=== PATIENT | male | born 1935 | race Caucasian/White ===

== ENCOUNTER 2022-12-28 04:58 | Outpatient (RCR) | payer MEDICARE, SELFPAY | END 2023-01-25 23:59 | disposition home or self-care (01) | LOC: MM 04:58 | PROVIDERS: Visit Provider Internal Medicine | DX: Z51.81 Encounter for therapeutic drug level monitoring (principal); Z79.01 Long term (current) use of anticoagulants; I48.91 Unspecified atrial fibrillation ==

== ENCOUNTER 2023-01-31 09:05 | Outpatient (RCR) | payer MEDICARE, SELFPAY | END 2023-02-25 16:59 | disposition home or self-care (01) | LOC: MM 09:05 | PROVIDERS: PCP Internal Medicine; Visit Provider Internal Medicine | DX: Z51.81 Encounter for therapeutic drug level monitoring (principal); Z79.01 Long term (current) use of anticoagulants; I48.91 Unspecified atrial fibrillation | CPT/HCPCS: 85610; G0463 ==

== ENCOUNTER 2023-02-19 10:11 | Outpatient (OUT) | payer MEDICARE, SELFPAY ==
--- NOTE | 2023-02-19 11:25 | CA_ITS ---
Patient: THIERRY LERNER Exam Date: 02/19/2023 : 1935 Gender:M Ordering : CHARISSE GAY Admission #: [id number] Family : Order #: [id number] CLICK HERE TO VIEW EXAM ECHOCARDIOGRAM REPORT PROCEDURE: CA ECHO DOPPLER COMPLETE INDICATIONS: Atrial fibrillation, hypertension, pacemaker COMPARISON: None. DESCRIPTION: COMPLETE ECHOCARDIOGRAM Real-time transthoracic echocardiography with 2D, M-mode, spectral and color flow Doppler performed. QUALITY: Technical quality was good. LEFT VENTRICLE: Normal chamber size. Thickened septal wall. The septum is abnormal in motion likely due to pacing. Global systolic function is normal. LV EF: Normal left ventricular ejection fraction, (55%). DIASTOLIC: Unable to assess due to rhythm. ATRIAL SEPTUM: LEFT ATRIUM: Severe dilatation. RIGHT ATRIUM: Severe dilatation. RIGHT VENTRICLE: Moderate dilatation. Mildly reduced systolic function. Pacer wire present. TRICUSPID VALVE: Normal mobility and thickness. No stenosis with mild to moderate regurgitation. Doppler studies reveal moderately (45-60) elevated right sided pressures. RVSP 56 mmHg MITRAL VALVE: Normal mobility and thickness. No evidence of mitral valve stenosis. There is no mitral annular calcification. Mild to moderate mitral regurgitation. AORTIC VALVE: Normal trileaflet appearance. Thickened aortic valve. Normal leaflet mobility. No evidence of aortic valve stenosis. Mild aortic regurgitation. AORTIC ROOT: Normal diameter and appearance. PULMONIC VALVE: Normal thickness and mobility. No stenosis. Mild regurgitation. PERICARDIUM: No evidence of pericardial effusion. IVC: Collapses with inspirations. IVC is dilated (2.6 cm) PLEURA: CONCLUSION: 1. Normal left ventricular size and systolic function. LVEF is 55%. 2. Moderately dilated right ventricle with mildly reduced systolic function. 3. Severe biatrial dilatation. 4. Mild to moderate mitral and tricuspid regurgitation. 5. Mild aortic and pulmonic regurgitation. 6. Moderately elevated right-sided pressures. RVSP is 56 mmHg. Adult Echocardiography Procedure Report Left Ventricle LVEDD (3.7 - 5.6 cm): 5.52 cm LVESD (2.2 - 4.0 cm): 3.57 cm LVIVS thickness (0.6 - 1.2 cm): 1.43 cm LVPW thickness (0.5 - 1.0 cm): 1.14 cm e': 0.16 m/s E - e': 5.55 LVOT Max Gradient: 4.00 mm[Hg] LVOT Area (cm2): 1.00 m/s Peak Velocity (LVOT): 1.00 m/s Mean Velocity (LVOT): 0.69 m/s LVOT Diameter 2.62 cm Left Atrium LA Volume Index (2D A2C): 69.01 ml/m2 Left Atrium Systolic Dimension: 4.96 cm Mitral Valve MV E to A Ratio: 3.21 Mitral Valve A-Wave Peak Velocity: 0.28 m/s Mitral Valve E-Wave Peak Velocity: 0.90 m/s Right Ventricle Aorta AO Root Diam: 3.92 cm Ascending Ao Diam: 3.67 cm Aortic Valve AoV Area (Peak Rich): 3.87 cm2, 3.87 cm2 AoV Area (VTI): 4.01 cm2, 4.01 cm2 Peak Velocity(Antegrade Flow): 1.40 m/s Peak Gradient(Antegrade Flow): 7.81 mm[Hg] Mean Velocity(Antegrade Flow): 0.97 m/s Mean Gradient(Antegrade Flow): 4.35 mm[Hg] Velocity Time Integral: 31.69 cm Tricuspid Valve Peak Velocity (Regurgitant Flow): 3.48 m/s, 3.40 m/s, 3.27 m/s Pulmonic Valve Peak Velocity: 1.17 m/s Peak Gradient: 6.20 mm[Hg], 4.73 mm[Hg] Right Atrium Right Atrium Systolic Pressure: 77.86 ml, 77.86 ml Dictated by: Sam Morales M.D. on 02/20/2023 at 18:36 Approved by: Sam Morales M.D. on 02/20/2023 at 18:44
== END 2023-02-19 10:12 | disposition home or self-care (01) ==
PROVIDERS: PCP Internal Medicine; Visit Provider Nurse Practitioner
DX: I48.19 Other persistent atrial fibrillation (principal); I08.3 Combined rheumatic disorders of mitral, aortic and tricuspid valves; I37.1 Nonrheumatic pulmonary valve insufficiency
CPT/HCPCS: 93306

== ENCOUNTER 2023-02-26 09:24 | Outpatient (RCR) | payer MEDICARE, SELFPAY | END 2023-03-28 17:35 | disposition home or self-care (01) | LOC: MM 09:24 | PROVIDERS: Visit Provider Internal Medicine | DX: Z51.81 Encounter for therapeutic drug level monitoring (principal); Z79.01 Long term (current) use of anticoagulants; I48.91 Unspecified atrial fibrillation | CPT/HCPCS: 85610; G0463 ==

== ENCOUNTER 2023-03-29 08:58 | Outpatient (RCR) | payer MEDICARE, SELFPAY | END 2023-04-26 16:53 | disposition home or self-care (01) | LOC: MM 08:58 | PROVIDERS: Visit Provider Internal Medicine | DX: Z51.81 Encounter for therapeutic drug level monitoring (principal); Z79.01 Long term (current) use of anticoagulants; I48.91 Unspecified atrial fibrillation ==

== ENCOUNTER 2023-04-29 01:54 | Outpatient (RCR) | payer MEDICARE, SELFPAY | END 2023-05-28 17:25 | disposition home or self-care (01) | LOC: MM 01:54 | PROVIDERS: Visit Provider Internal Medicine | DX: Z51.81 Encounter for therapeutic drug level monitoring (principal); Z79.01 Long term (current) use of anticoagulants; I48.91 Unspecified atrial fibrillation | CPT/HCPCS: 85610; G0463 ==

== ENCOUNTER 2023-05-22 08:25 | Outpatient (OUT) | payer MEDICARE, SELFPAY ==
[2023-05-22 09:04] LABS: Anion Gap 14.2; BUN Creatinine Ratio 20.6; Calcium 9.7 mg/dL (8.5-10.1); Carbon Dioxide 25.8 mmol/L (21.0-32.0); Chloride 107 mmol/L (98-107); Estimated GFR (African America 37 (>=60); Estimated GFR (Non-African Ame 30 (>=60); Glucose 90 mg/dL (74-106); Sodium 142 mmol/L (136-145)
== END 2023-05-22 08:26 | disposition home or self-care (01) ==
LOC: LAB 08:26
PROVIDERS: PCP Nurse Practitioner; Visit Provider Nurse Practitioner
DX: I50.32 Chronic diastolic (congestive) heart failure (principal)
CPT/HCPCS: 36415; 80048

== ENCOUNTER 2023-05-29 00:41 | Outpatient (RCR) | payer MEDICARE, SELFPAY | END 2023-06-27 16:40 | disposition home or self-care (01) | LOC: MM 00:41 | PROVIDERS: PCP Nurse Practitioner; Visit Provider Internal Medicine | DX: Z51.81 Encounter for therapeutic drug level monitoring (principal); Z79.01 Long term (current) use of anticoagulants; I48.91 Unspecified atrial fibrillation ==

== ENCOUNTER 2023-06-28 09:53 | Outpatient (RCR) | payer MEDICARE, SELFPAY | END 2023-07-26 15:39 | disposition home or self-care (01) | LOC: MM 09:53 | PROVIDERS: PCP Nurse Practitioner; Visit Provider Internal Medicine | DX: Z51.81 Encounter for therapeutic drug level monitoring (principal); Z79.01 Long term (current) use of anticoagulants; I48.91 Unspecified atrial fibrillation ==

== ENCOUNTER 2023-07-29 01:40 | Outpatient (RCR) | payer MEDICARE, SELFPAY | END 2023-08-28 17:10 | disposition home or self-care (01) | LOC: MM 01:40 | PROVIDERS: PCP Nurse Practitioner; Visit Provider Internal Medicine | DX: Z51.81 Encounter for therapeutic drug level monitoring (principal); Z79.01 Long term (current) use of anticoagulants; I48.91 Unspecified atrial fibrillation | CPT/HCPCS: 85610; G0463 ==

== ENCOUNTER 2023-08-28 12:24 | Outpatient (OUT) | payer MEDICARE, SELFPAY ==
--- OUTSIDE RECORDS SUMMARY | 2023-08-28 12:28 | XMS_ITS | CCD ---
Author Name Unknown Address [address] [place] [address] Organization [facility] Care Team Providers Care Fondant Puff Maker Name Role Phone UNKNOWN, PHYSICIAN Referring Unavailable SILVAJASON CRUZ Primary Care Unavailable HERCHER DEJON Attending Unavailable HERCHER DEJON Admitting Unavailable PROVIDER, UNKNOWN Attending Unavailable PROVIDER, UNKNOWN Admitting Unavailable PROVIDER, UNKNOWN Attending Unavailable PROVIDER, UNKNOWN Admitting Unavailable Sonja Aden Unavailable Leidy Rey Primary Care Physician Ward Martinez Admitting Unavail able Ward Martinez Attending Unavail able John Nieves Primary Care Unavailable Ward Martinez Attending Unavail able John Nieves Primary Care Unavailable Ward Martinez Admitting Unavail able SILVA ., DR JASON Devlin Consulting Unavailable SILVA ., DR JASON Devlin Attending Unavailable SILVA ., DR JASON Devlin Admitting Unavailable SILVA ., DR JASON Devlin Primary Care Unavailable SHAIKH Joe JUNIOR Attending Unavailable SILVA ., DR JASON Devlin Primary Care Unavailable SHAIKH Joe JUNIOR Admitting Unavailable SHAIKH Joe JUNIOR Admitting Unavailable SILVA ., DR JASON Devlin Primary Care Unavailable SANDI, H Attending Unavailable KELLY BONILLA Consulting Unavailable WILBERTUKAKELLY MONTILLA Attending Unavailable SILVA ., DR JASON Devlin Primary Care Unavailable KELLY BONILLA Admitting Unavailable SILVA ., DR JASON Devlin Primary Care Unavailable MISC, DR DEUTSCH Consulting Unavailable MISC, DR DEUTSCH Attending Unavailable MISC, DR DEUTSCH Admitting Unavailable SILVA ., DR JASON Devlin Primary Care Unavailable CHIKISERELaura, DR HARVEY Mcgrath Consulting Unavailable CHEPE, DR HARVEY Mcgrath Attending Unavailable CHEPE, DR HARVEY Mcgrath Admitting Unavailable TO, STEPHANIE Procedure Practitioner Unavailab le MARKER ., DR GODDARD Consulting Unavailable CHEPE, DR HARVEY Mcgrath Procedure Practitioner Unascott clark TO, STEPHANIE Consulting Unavailable KLIPPER, STEPHANIE Consulting Unavailable AQUINOMCKAYLA SERRA Consulting Unavailable DRA II, KITTY Consulting Unavailable TAMLYN ., SAEID Consulting Unavailable BRAEDEN MCNEILL Consulting Unavailable SILVA ., DR JASON Devlin Consulting Unavailable SILVA ., DR JASON Devlin Attending Unavailable SILVA ., DR JASON Devlin Admitting Unavailable SILVA ., DR JASON Devlin Primary Care Unavailable FAWWAD, HAYWARD H Admitting Unavailable FAWWAD, HAYWARD H Attending Unavailable SILVA ., DR JASON Devlin Primary Care Unavailable FAWWAD, HAYWARD H Admitting Unavailable SILVA ., DR JASON Devlin Primary Care Unavailable FAWWAD, HAYWARD H Attending Unavailable FAWWAD, HAYWARD H Admitting Unavailable SILVA ., DR JASON Devlin Primary Care Unavailable FAWWAD, HAYWARD H Attending Unavailable FAWWAD, HAYWARD H Admitting Unavailable SILVA ., DR JASON Devlin Primary Care Unavailable FAWWAD, HAYWARD H Attending Unavailable FAWWAD, HAYWARD H Admitting Unavailable SILVA ., DR JASON Devlin Primary Care Unavailable FAWWAD, HAYWARD H Attending Unavailable FAWWAD, HAYWARD H Admitting Unavailable SILVA ., DR JASON Devlin Primary Care Unavailable FAWWAD, HAYWARD H Attending Unavailable FAWWAD, HAYWARD H Admitting Unavailable SILVA ., DR JASON Devlin Primary Care Unavailable FAWWAD, HAYWARD H Attending Unavailable FAWWAD, HAYWARD H Attending Unavailable FAWWAD, HAYWARD H Admitting Unavailable SILVA ., DR JASON Devlin Primary Care Unavailable SILVA ., DR JASON Devlin Primary Care Unavailable MISC, DR DEUTSCH Consulting Unavailable MISC, DR DEUTSCH Attending Unavailable MISC, DR DEUTSCH Admitting Unavailable FAWWAD, HAYWARD H Admitting Unavailable SILVA ., DR JASON Devlin Primary Care Unavailable FAJenniferWAD, HAYWARD H Attending Unavailable ROYAL RIVERA Consulting Unavailable ROYAL RIVERA Attending Unavailable ROYAL RIVERA Admitting Unavailable SILVA ., DR JASON Devlin Primary Care Unavailable CHARISSE GAY Attending Unavailable CHARISSE GAY Attending Unavailable ROYAL RIVERA Referring Unavailable SOLIS VALLES Attending Unavailable ROYAL RIVERA Attending Unavailable ROYAL RIVERA Referring Unavailable Krissy, Leidy Calix Attending Unavailable Krissy, Leidy Calix Attending Unavailable Krissy, Leidy Calix Attending Unavailable Krissy, Leidy Calix Admitting Unavailable Krissy, Leidy Calix Attending Unavailable Krissy, Leidy Calix Admitting Unavailable Krissy, Leidy L Admitting Unavailable John Nieves Attending Unavailable Krissy, Leidy Calix Attending Unavailable Krissy, Leidy Calix Attending Unavailable Allergies Allergy Classification Reported Allergen(s) Allergy Type Date of Onset Reaction(s) Facility (2 sources) No Known Medication Allergies; Translations: [No Known Medication Allergies] Propensity to adverse reactions to drug (disorder) [facility] Repository Medications Current Medications Medication Drug Class(es) Dates Sig (Normalized) Sig (Original) amLODIPine 5 mg oral tablet (3 sources) Dihydropyridine Calcium Channel Benson Start: 10-31-2022 take 1 tablet by mouth once daily amLODIPine 5 mg Tab 5 mg = 1 tab(s), Oral, Daily, # 30 tab(s), Refills(s) 0 Start Date: 10/31/22 Status: Ordered take 1 tablet by joesph th every twenty-four hours amLODIPine Besylate 5 MG 1 tablet Orally Once a day Active furosemide 40 mg oral tablet (2 sources) Loop Diuretic Start: 10-31-2022 take 1 tablet by mouth once daily furosemide 40 mg Tab 40 mg = 1 tab(s), Oral, Daily, # 30 tab(s), Refills(s) 0 Start Date: 10/31/22 Status: Ordered lisinopril 20 mg oral tablet (3 sources) Angiotensin Converting Enzyme Inhibitor Start: 10-31-2022 take 1 tablet by mouth once daily lisinopril 20 mg Tab 20 mg = 1 tab(s), Oral, Daily, # 30 tab(s), Refills(s) 0 Start Date: 10/31/22 Status: Ordered take 1 tablet by joesph th every twenty-four hours Lisinopril 5 MG 1 tablet Orally Once a day Active Multi For Him 50+ - (1 source) Multi For Him 50 + - as directed Orally Active omeprazole 40 mg delayed release oral capsule (1 source) Proton Pump Inhibitor Start: 01-23-20 take 1 capsule by mouth once daily omeprazole 40 mg Cap-DR 40 mg = 1 cap(s), Oral, Daily, # 180 cap(s), Refills(s) 3, Pharmacy: [facility], 178, cm, 01/22/23 14:05:00 EDT, Height/Length Dosing, 100, kg, 01/22/23 14:05:00 EDT, Weight Dosing Start Date: 01/22/23 Status: Ordered Osteo Bi-Flex Edge Joint & Energy with Ascorbic Acid and Minerals oral tablet (2 sources) Start: 12-12-19 Osteo Bi-Flex Edge Joint & Energy with Ascorbic Acid and Minerals oral tablet Refill(s) 0 Start Date: 12/11/22 Status: Ordered potassium chloride 20 meq extended release oral tablet (1 source) take 1 tablet by mouth every twenty-four hours Potassium Chloride ER 20 MEQ 1 tablet with food Orally Once a day Active triamcinolone acetonide 5 mg/ml topical cream (1 source) Corticosteroid Start: 01-23-20 triamcinolone Top 0.5% Crm 1 ely, Topical, BID, 15 gram, Refill(s) 0, [facility], 178, cm, 01/22/23 14:05:00 EDT, Height/Length Dosing, 100, kg, 01/22/23 14:05:00 EDT, Weight Dosing Start Date: 01/22/23 Status: Ordered warfarin sodium 5 mg oral tablet (3 sources) Vitamin K Antagonist Start: 11-01-19 take 1 tablet by mouth once daily warfarin 5 mg Tab 5 mg = 1 tab(s), Oral, Daily, # 30 tab(s), Refills(s) 0 Start Date: 10/31/22 Status: Ordered take 1 tablet by joesph th every twenty-four hours Warfarin Sodium 5 MG 1 tablet Orally Once a day Active Problems Active Problems Problem Classification Problem Date Documented Da te Episodic/Chronic Acute and unspecified renal failure (1 source) Acute kidney failure, unspecified; Translations: [ACUTE KIDNEY FAILURE UNSPECIFIED] Onset: 3 Episodic Acute cerebrovascular disease (2 sources) Cerebrovascular accident 10-31-2022 Chronic Acute posthemorrhagic anemia (1 source) Acute posthemorrhagic anemia; Translations: [ACUTE POSTHEMORRHAGIC ANEMIA] Onset: 3 Episodic Alcohol-related disorders (1 source) Alcohol dependence, uncomplicated; Translations: [ALCOHOL DEPENDENCE UNCOMPLICATED] Onset: 3 Chronic Allergic reactions (2 sources) 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 Cardiac dysrhythmias (9 sources) Atrial fibrillation; Translations: [Cardiac arrhythmia] Onset: 2 10-31-2022 Chronic Comment on above: Tachy, Ryan Chronic kidney disease (1 source) Chronic kidney disease; Translations: [CHRONIC KIDNEY DISEASE STAGE 3B] Onset: 3 Conduction disorders (3 sources) Presence of cardiac pacemaker; Translations: [Encounter for adjustment and management of automatic implantable cardiac defibrillator] Onset: 3 Chronic Congestive heart failure; nonhypertensive (6 sources) Heart failure, unspecified; Translations: [Chronic diastolic (congestive) heart failure] Onset: 2 Chronic Crushing injury or internal injury (2 sources) Contusion of lung 10-31-2022 Episodic Comment on above: No details in previo us records Deficiency and other anemia (2 sources) Anemia 10-31-2022 Episodic Comment on above: FE DEF Anemia Deficiency and other anemia (1 source) Iron deficiency anemia, unspecified; Translations: [IRON DEFICIENCY ANEMIA UNSPECIFIED] Onset: 3 Episodic Disorders of lipid metabolism (6 sources) Hyperlipidemia; Translations: [Pure hypercholesterolemia, unspecified] Onset: 3 10-31-2022 Chronic Comment on above: no details in previo us chart Diverticulosis and diverticulitis (1 source) Diverticulosis of large intestine without perforation or abscess without bleeding; Translations: [DVRTCLOS LG INT NO PERF/ABSC W/O BL] Onset: 3 Chronic Essential hypertension (4 sources) Hypertensive disorder; Translations: [Essential (primary) hypertension] Onset: 3 10-31-2022 Chronic Comment on above: No details in previo us records Fluid and electrolyte disorders (1 source) Hyperkalemia; Translations: [HYPERKALEMIA] Onset: 3 Episodic Gastritis and duodenitis (1 source) Gastritis, unspecified, without bleeding; Translations: [GASTRITIS UNS WITHOUT BLEEDING] Onset: 3 Episodic Gastrointestinal hemorrhage (3 sources) 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; Translations: [CHRONIC/UNS GASTRIC ULCER W/HEMORR] Onset: 3 Chronic Gastrointestinal hemorrhage (5 sources) Gastrointestinal hemorrhage, unspecified; Translations: [Hemorrhage of digestive system] Onset: 3 Episodic Hypertension with complications and secondary hypertension (1 source) Hypertensive chronic kidney disease with stage 1 through stage 4 chronic kidney disease, or unspecified chronic kidney disease; Translations: [HTN CKD W/STAGE 1-4 CKD/UNS CKD] Onset: 3 Chronic Other aftercare (1 source) Other chcf (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 therapy; Translations: [OTH APPRAISER IRRIGATION TAX CURRENT DRUG THERAPY] Onset: 3 Episodic Other aftercare (5 sources) Encounter for therapeutic drug level monitoring; Translations: [ENC THERAPEUTC DRUG LEVL MONITORING] Onset: 3 Episodic Other aftercare (1 source) retirement (current) use of anticoagulants; Translations: [CARE HOME CURRNT USE ANTICOAGULANTS] Onset: 3 Episodic Other and ill-defined cerebrovascular disease (1 source) Cerebrovascular disease, unspecified; Translations: [CEREBROVASCULAR DISEASE UNSPECIFIED] Onset: 3 Chronic Other gastrointestinal disorders (2 sources) Hemorrhage into peritoneal cavity 10-31-2022 Episodic Comment on above: No details in previo us medical record Other gastrointestinal disorders (1 source) Other fecal abnormalities; Translations: [OTHER FECAL ABNORMALITIES] Onset: 3 Episodic Other lower respiratory disease (1 source) Personal history of pneumonia (recurrent); Translations: [PERSONAL HX OF PNEUMONIA RECURRENT] Onset: 3 Episodic Other nutritional; endocrine; and metabolic disorders (1 source) Body mass index 30+ - obesity 12-21-2022 Chronic Residual codes; unclassified (1 source) Family history of malignant neoplasm of digestive organs; Translations: [FAM HX MALIG NEOPLASM DIGESTIV ORGN] Onset: 3 Episodic Residual codes; unclassified (1 source) Other specified postprocedural states; Translations: [OTH SPECIFIED POSTPROCEDURAL STATES] Onset: 3 Episodic Screening and history of mental health and substance abuse codes (2 sources) Personal history of nicotine dependence; Translations: [Ex-cigar smoker] Onset: 3 12-21-2022 Episodic Unclassified (5 sources) Chronic atrial fibrillation, unspecified; Translations: [CHRONIC ATRIAL FIBRILLATION UNSPEC] Onset: 3 Unclassified (2 sources) Other persistent atrial fibrillation; Translations: [Other persistent atrial fibrillation] Onset: 2 Past or Other Problems Problem Classification Problem Date Documented Date Episodic/Chronic Deficiency and other anemia (1 source) Other megaloblastic anemias, not elsewhere classified; Translations: [OTHER MEGALOBLASTIC ANEMIAS NEC] Onset: 08-24-2022 Episodic Other circulatory disease (3 sources) Personal history of transient ischemic attack (TIA), and cerebral infarction without residual deficits; Translations: [PERS HX TIA AND CI NO RESID DEFICIT] Onset: 05-02-2022 Episodic Other connective tissue disease (6 sources) Cramp and spasm; Translations: [CRAMP AND SPASM] Onset: 11-06-2022 Episodic Other male genital disorders (4 sources) Disorder of prostate, unspecified; Translations: [DISORDER OF PROSTATE UNSPECIFIED] Onset: 08-22-2022 Episodic Unclassified (1 source) Contact with and (suspected) exposure to covid-19 Z20.822 Viral infection (1 source) COVID-19 Results Test Name Value Interpretation Reference Range Facility Physician Referralon 023 Physician Referral [id number]#1.00TIFF Normal [facility] Ambulatory Visit Summaryon 1 09-03-2022 Ambulatory Visit Summary RY LERNER :1935 Visit Date:07/03/2023 Ambulatory Visit Instructions Your Diagnosis BMI 31.0-31.9,adult Class 1 obesity due to excess calories in adult Former smoker Your Care Team Attending Physician - Leidy Simms Primary Care Physician - Leidy Simms This Is Your Medications List amlodipine (amLODIPine 5 mg Tab) chondroitin-glucosam ine (Osteo Bi-Flex Edge Joint & Energy with Ascorbic Acid and Minerals oral tablet) furosemide (furosemide 40 mg Tab) lisinopril (lisinopril 20 mg Tab) omeprazole (omeprazole 40 mg Cap-DR) warfarin (warfarin 5 mg Tab) Procedures Performed Colonoscopy (12/12/2022), Carpal tunnel release (12/10/2022), Cardiac pacemaker (09/2021), Colonoscopy (02/2011), Transurethral resection of prostate (TURP) syndrome (1995), Hernia (1993), Tonsillectomy with adenoidectomy. Discharge Vitals Temperature (Temporal Artery) 36.8 ?C Heart Rate (Peripheral) 68 Respiratory Rate 14 Blood Pressure 138/66 Height 178 cm Height 70 in Weight 98.4 kg Weight 216.48 lb BMI 31.06 What to do next Scheduled Follow-Up Appointments Saturday 11:00 AM EST Where: [facility] Medicine [place] Normal [facility] Medicine Office/Clini c Noteon 07-03-2023 Family Medicine Office/Clinic Note HPI Staff Ry is an 87 year old male presenting to review labs and medication Called Jason on hippa form to find out where [place] patient has labs drawn so we can get those records(07/02/23) He brought his copy of the labs with him. flu: due we are out of high dose shingles: due he's unsure due to if it's covered or not questions/concerns: wants to discuss his eczema, last his hands have been blistering and had been smooth and soft for 3 weeks. they are drying up few blisters left Would like to know where his BP should be. his monitor shows he's running high. I got 138/66 this morning and we checked on his unit right after using same arm and got 155/68 spots on face been froze few times by Dr Silva, new one above right eye scales on his legs been there a long time getting better but would like them checked along with dry skin on his feet using lotion every morning on legs and bottom of feet History of Present Illness pt presents today to review labs. having worsening eczema symptoms on hands. Review of Systems PHQ Score Initial Depression Screen Score: 0 SCORE ROS - Provider Constitutional: no fever, no chills, no sweats, no fatigue Respiratory: no shortness of breath, no cough, no orthopnea, no wheezing. Cardiovascular: no chest pain, no palpitations, no edema. Neurologic: no headache, no dizziness, no numbness, no weakness. Physical Exam Vitals & Measurements T: 36.8 ?C(Temporal Artery) HR: 68(Peripheral) RR: 14 BP: 138/66 SpO2: 100% HT: 70 in HT: 178 cm WT: 98.4 kg WT: 216.48 lb BMI: 31.06 General: alert, no acute distress ENMT: oral mucosa moist, no pharyngeal erythema or exudate Cardiovascular: regular rate and rhythm, normal peripheral perfusion Respiratory: Lungs CTA, respirations non labored Extremities: no deformity, no trauma Neurological: oriented x 4, LOC appropriate for age, CN II-XII intact, motor strength equal & normal bilaterally, speech normal skin: VAIBHAV hands dry and scaly, area on left lower leg also red and scaly, several spots on his face that may require biopsy Assessment/Plan 1. Eczema (L30.9: Dermatitis, unspecified) pt c/o allison scaly skin on both hands that is worsening. all questions answered. RTC for media wellness visit. pt will needs CBC and CMP drawn at that visit. Ordered: [facility] External Ambulatory Referral [facility] External Ambulatory Referral 2. Skin texture changes (R23.4: Changes in skin texture) pt has a couple areas on his face that have changes in shape and color and will come off or flake off then comes back. Dr. Silva froze a couple areas a few years ago. will refer to dermatology to manage these areas and his eczema. Ordered: [facility] External Ambulatory Referral [facility] External Ambulatory Referral 3. BMI 31.0-31.9,adult (Z68.31: Body mass index [BMI] 31.0-31.9, adult) BMI education complete Ordered: Body Mass Index (BMI) documented 3008F Current tobacco non-user 1036F Depression Screening Negative 3352F [facility] External Ambulatory Referral [facility] External Ambulatory Referral Influenza immunization status assessed 1030F Most recent diastolic blood pressure <80 mm Hg 3078F Patient screen for fall risk: no falls in last year or 1 fall with no injury in last year 1101F Systolic BP 130-139 mm Hg (Most Recent) 3075F 4. Class 1 obesity due to excess calories in adult (E66.09: Other obesity due to excess calories) see above Ordered: Body Mass Index (BMI) documented 3008F Current tobacco non-user 1036F Depression Screening Negative 3352F [facility] External Ambulatory Referral [facility] External Ambulatory Referral Influenza immunization status assessed 1030F Most recent diastolic blood pressure <80 mm Hg 3078F Patient screen for fall risk: no falls in last year or 1 fall with no injury in last year 1101F Systolic BP 130-139 mm Hg (Most Recent) 3075F 5. Former smoker (Z87.891: Personal history of nicotine dependence) continue not smoking Ordered: Body Mass Index (BMI) documented 3008F Current tobacco non-user 1036F Depression Screening Negative 3352F [facility] External Ambulatory Referral [facility] External Ambulatory Referral Influenza immunization status assessed 1030F Most recent diastolic blood pressure <80 mm Hg 3078F Patient screen for fall risk: no falls in last year or 1 fall with no injury in last year 1101F Systolic BP 130-139 mm Hg (Most Recent) 3075F Orders: triamcinolone topical, 1 ely, Topical, BID, 15 gram, Refill(s) 0, [facility], 178, cm, 01/22/23 14:05:00 EDT, Height/Length Dosing, 100, kg, 01/22/23 14:05:00 EDT, Weight Dosing Follow-up No qualifying data available Problem List/Past Medical History Ongoing Acute cerebrovascular accident (CVA) AF (atrial fibrillation) Anemia Bleeding ulcer BMI 30.0-30.9,adult Contusion of lung Dyshidrotic eczema Dysrhythmias Eczema Former cigar smoker Hemoperitoneum HTN (hypertension) Hyperlipidemia Skin texture changes Historical (more content not included)... [facility] Comment on above: Result Comment: Elec tronically Signed By: Leidy Simms\.br\Date and Time Signed: 07/03/23 12:49 EST Lab Report[facility] 07-02-2023 Lab Reports [id number] #1.00TIFF [facility] Office Visiton 05-15-2023 Follow-up visit [id number] Ry Lerner 1935 M Date Provider Department Center 05/15/2023 Maame6-CHARISSE GAY [facility] Family History Family history unknown: Yes Level of Service:66067 LA OFFICE/OUTPATIENT ESTABLISHED MOD MDM 30-39 MIN [facility] Physician Referralon 023 Physician Referral [id number] #1.00CD:127 [facility] Consultation Noteon 03-11-20 Consultation Note [id number] #1.00CD:127 Normal [facility] Office Visiton 02-08-2023 Follow-up visit [id number] Ry Lerner 1935 M Date Provider Department Center 02/08/2023 Maame6-CHARISSE GAY CARD [facility] Family History Family history unknown: Yes Level of Service:59167 LA OFFICE/OUTPATIENT ESTABLISHED MOD MDM 30-39 MIN Normal [facility] Family Medicine Office/Clini c Noteon 01-23-2023 Family Medicine Office/Clinic Note Chief Complaint Discuss continuing medications after GI bleed. HPI Staff Ry is an 87 year old male presenting to discuss medications/labs States that after his upper and lower GI, he was taken off of some of his medications due to the GI bleed, and diverticulitis. Would like to discuss his medications and go over his lab work as well. Patient states that his stool has gone back to normal and doesn't have any concerns with at this time. Patient was treated at [facility]. Questions/Concerns: History of Present Illness pt presents today to go over lab work and to discuss medication. would like to stop taking lasix and wants to know if he should start back on warfarin Review of Systems PHQ Score Initial Depression Screen Score: 0 ROS - Provider Constitutional: no fever, no chills, no sweats, no fatigue Respiratory: no shortness of breath, no cough, no orthopnea, no wheezing. Cardiovascular: no chest pain, no palpitations, no edema. heart rate regular in office today Neurologic: no headache, no dizziness, no numbness, no weakness. Physical Exam Vitals & Measurements HR: 60(Peripheral) RR: 18 BP: 126/60 SpO2: 96% HT: 70 in HT: 178 cm WT: 100 kg WT: 220 lb BMI: 31.56 General: alert, no acute distress ENMT: oral mucosa moist, no pharyngeal erythema or exudate Cardiovascular: regular rate and rhythm, normal peripheral perfusion, rate regular in office today pt has pacemaker Respiratory: Lungs CTA, respirations non labored Extremities: no deformity, no trauma Neurological: oriented x 4, LOC appropriate for age, CN II-XII intact, motor strength equal & normal bilaterally, speech normal Assessment/Plan 1. Bleeding ulcer, (K28.4: Chronic or unspecified gastrojejunal ulcer with hemorrhage)Bleeding ulcer pt was hospitalized with bleeding ulcer. had 2 units of blood and colonoscopy while in hospital. he has been off of warfarin and was instructed to follow up with Dr. Vargas in [place] and also placed a GI consult. since then his so he has not made any of those appointments. pt wants to stop taking lasix. encouraged daughter to make appointment with Dr. Vargas and let him decide if he can stop lasix. will draw pt/ptt in office today and compare to labs that were drawn in [place] end of November. still waiting for those labs. will call pt tomorrow once we have lab results. omeprazole refills also sent to pharmacy. they will hold off on GI referral until they get meds situated with clerical specialist. Dr. Vargas's office was called notified. and we are suggesting watchman procedure so he does not need to start back on blood thinner. Ordered: Automated Diff CBC w/ Auto Diff PT & PTT 2. 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 fluid balance, not elsewhere classified) will check electrolytes s in office today Ordered: Electrolyte Panel Follow-up No qualifying data available Problem List/Past Medical History Ongoing Acute cerebrovascular accident (CVA) AF (atrial fibrillation) Anemia Bleeding ulcer BMI 30.0-30.9,adult Contusion of lung Dyshidrotic eczema Dysrhythmias Former cigar smoker Hemoperitoneum HTN (hypertension) Hyperlipidemia Historical No qualifying data Procedure/Surgical History Colonoscopy (12/12/2022), Carpal tunnel release (12/10/2022), Cardiac pacemaker (09/2021), Colonoscopy (02/2011), Transurethral resection of prostate (TURP) syndrome (1995), Hernia (1993), Tonsillectomy with adenoidectomy. 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 Never Smokeless Tobacco Use:. Cigars, Pipe, Household tobacco concerns: No., 01/22/2023 Family History Diabetes mellitus type 1: Grandparent. Primary malignant neoplasm of colon: Father and Brother. Immunizations Vaccine Date Status Comments influenza virus vaccine, inactivated 05/02/2022 Recorded SARS-CoV-2 (COVID-19) mRNA BNT-162b2 vax 09/17/2020 Recorded 2022-10-31: TPV80 SARS-CoV-2 (COVID-19) mRNA BNT-162b2 vax 08/27/2020 Recorded 2022-10-31: TPV80 influenza virus vaccine, inactivated 06/13/2020 Recorded (more content not included)... Normal [facility] Comment on above: Result Comment: Elec tronically Signed By: Leidy Simms\.br\Date and Time Signed: 01/23/23 16:36 EDT Auto Diffon 01-22-2023 Basophils/100 WBC (Bld) 0.5 % Normal 0.0-2.0 [facility] Comment on above: Order Comment: Order Added by Discern Expert. Performed By: #### 2 [id number] #### [facility] [address] [place] [address] Basophils/Leukocytes Auto (Bld) [Pure # fraction] 0.0 E9/L Normal 0.0-0.2 [facility] Comment on above: Order Comment: Order Added by Discern Expert. Performed By: #### 2 [id number] #### [facility] [address] [place] [address] Eosinophils/100 WBC (Bld) 4.7 % Normal 0.0-8.0 [facility] Comment on above: Order Comment: Order Added by Discern Expert. Performed By: #### 2 [id number] #### [facility] [address] [place] [address] Eosinophils/Leukocyte s Auto (Bld) [Pure # fraction] 0.2 E9/L Normal 0.0-0.5 [facility] Comment on above: Order Comment: Order Added by Discern Expert. Performed By: #### 2 [id number] #### [facility] [address] [place] [address] Lymphocytes/100 WBC (Bld) 20.4 % Normal 14.0-50.0 [facility] Comment on above: Order Comment: Order Added by Discern Expert. Performed By: #### 2 [id number] #### [facility] [address] [place] [address] Lymphocytes/Leukocyte s Auto (Bld) [Pure # fraction] 0.8 E9/L Low 1.0-4.0 [facility] Comment on above: Order Comment: Order Added by Discern Expert. Performed By: #### 2 [id number] #### [facility] [address] [place] [address] Monocytes/100 WBC (Bld) 7.6 % Normal 4.0-14.0 [facility] Comment on above: Order Comment: Order Added by Discern Expert. Performed By: #### 2 [id number] #### [facility] [address] [place] [address] Monocytes/Leukocytes Auto (Bld) [Pure # fraction] 0.3 E9/L Normal 0.2-1.0 [facility] Comment on above: Order Comment: Order Added by Discern Expert. Performed By: #### 2 [id number] #### [facility] [address] [place] [address] Neutrophils/100 WBC (Bld) 66.8 % Normal 36.0-75.0 [facility] Comment on above: Order Comment: Order Added by Discern Expert. Performed By: #### 2 [id number] #### [facility] [address] [place] [address] Neutrophils/Leukocyte s Auto (Bld) [Pure # fraction] 2.5 E9/L Normal 2.0-7.5 [facility] Comment on above: Order Comment: Order Added by Discern Expert. Performed By: #### 2 [id number] #### [facility] [address] [place] [address] CBC w/ Auto Diffon 3 Erythrocyte distribution width (RBC) [Ratio] 14.1 % Normal 10.9-14.2 [facility] Comment on above: Performed By: #### 2 [id number] #### [facility] [address] [place] [address] Hematocrit (Bld) [Volume fraction] 29.2 % Low 37.7-49.0 [facility] Comment on above: Performed By: #### 2 [id number] #### [facility] [address] [place] [address] Hemoglobin (Bld) [Mass/Vol] 9.7 g/dL Low 13.5-17.5 [facility] Comment on above: Performed By: #### 2 [id number] #### [facility] [address] [place] [address] MCH (RBC) [Entitic mass] 32.2 pg Normal 27.0-34.0 [facility] Comment on above: Performed By: #### 2 [id number] #### [facility] [address] [place] [address] MCHC (RBC) [Mass/Vol] 33.4 g/dL Normal 31.4-36.0 [facility] Comment on above: Performed By: #### 2 [id number] #### [facility] [address] [place] [address] MCV (RBC) [Entitic vol] 96.3 fL Normal 80.0-100.0 [facility] Comment on above: Performed By: #### 2 [id number] #### [facility] [address] [place] [address] Platelet mean volume (Bld) [Entitic vol] 9.1 fL Normal 6.4-10.8 [facility] Comment on above: Performed By: #### 2 [id number] #### [facility] [address] [place] [address] Platelets (Bld) [#/Vol] 138.0 E9/L Low 150.0-500.0 [facility] Comment on above: Performed By: #### 2 [id number] #### [facility] [address] [place] [address] RBC (Bld) [#/Vol] 3.0 E12/L Low 4.3-5.9 [facility] Comment on above: Performed By: #### 2 [id number] #### [facility] [address] [place] [address] WBC corrected for nucl RBC Auto (Bld) [#/Vol] 3.8 E9/L Low 4.0-11.0 [facility] Comment on above: Performed By: #### 2 [id number] #### [facility] [address] [place] [address] Lyteson 01-22-2023 Anion gap [Moles/Vol] 15 mmol/L Normal 6-16 [facility] Comment on above: Performed By: #### 2 [id number] #### [facility] [address] [place] [address] Chloride [Moles/Vol] 108 mmol/L Normal 101-111 [facility] Comment on above: Performed By: #### 2 [id number] #### [facility] [address] [place] [address] CO2 [Moles/Vol] 24 mmol/L Normal 21-31 [facility] Comment on above: Performed By: #### 2 [id number] #### [facility] [address] [place] [address] Potassium [Moles/Vol] 4.8 mmol/L Normal 3.5-5.3 [facility] Comment on above: Performed By: #### 2 [id number] #### [facility] [address] [place] [address] Sodium [Moles/Vol] 142 mmol/L Normal 135-145 [facility] Comment on above: Performed By: #### 2 [id number] #### [facility] [address] [place] [address] PT & PTTon 01-22-2023 aPTT Coag (PPP) [Time] 29.6 second(s) Normal 25.1-36.5 [facility] Comment on above: Result Comment: Para meter 15 days - 4 weeks 1 - 5 months 6 - 11 months 1 - 5 years 6 - 10 years 11 - 17 years PTT Mean: 35.4 (27.6-45.6) Mean: 33.5 (24.8-40.7) Mean: 32.4 (25.1-40.7) Mean: 31.6 (24.0-39.2) Mean: 31.6 (26.9-38.7) Mean: 31.0 (24.6-38.4) Pediatric Reference ranges were obtained from a study by Canelo Gill et al. prepared from 1437 samples obtained at 7 different centers using the same coagulation reagent and instrumentation as [facility]. Currently there are no coagulation studies available worldwide for children to 14 days, and no normal ranges. Heparin therapeutic range (represented by Anti-Factor Xa activity of 0.2 - 0.4 U/mL) corresponds to PTT of 56.6 - 109.0 sec. Performed By: #### 2 [id number] #### [facility] [address] [place] [address] INR Coag (PPP) [Relative time] 1.1 {INR} Invalid Interpretation Code [facility] Comment on above: Result Comment: INR results are specifically intended to assess patients stabilized on long-term Anticoagulation therapy suggested INR?s ?Less Intensive Anticoagulation? 2.0 ? 3.0 Conventional Range 3.0 ? 4.5 Performed By: #### 2 [id number] #### [facility] [address] [place] [address] PT Coag (PPP) [Time] 12.2 second(s) Normal 9.4-12.5 [facility] Comment on above: Result Comment: 15 d ays - 4 weeks 1 - 5 months 6 -11 months 1 ? 5 years 6 ? 10 years 11 -17 years Mean: 11.2 (9.5 ? 12.6) Mean: 11.0 (9.7 ? 12.8) Mean: 11.0 (9.8 ? 13.0) Mean: 11.3 (9.9 ? 13.4) Mean: 11.7 (10.0 ? 14.6) Mean: 11.8 (10.0 - 14.1) Pediatric Reference ranges were obtained from a study by Canelo Gill et al. prepared from 1437 samples obtained at 7 different centers using the same coagulation reagent and instrumentation as [facility]. Currently there are no coagulation studies available worldwide for children to 14 days, and no normal ranges. Performed By: #### 2 [id number] #### [facility] [address] [place] [address] Coding Summaryon 01-01-2023 Coding Summary HTMLBase 64 FdvkpriiDHn5uAw+PGhl YWQ+NK9HIJSiQ22udZWv qF5yI7DLZImMHmjqYUGR ISnUCyNdtwGtHP3ckSDd ZXJu IC8+NH5cHPQnNsoboWQb s0Y1aVW6P53gox6tCTzq qWG7WAFjPsOjidoek4os eTv5OLpdDiyuGvXv HVNvbP02XWB2pH69Bb83 aCOimWCmw8zdfMz4YyCl MMWoYWH7yRpiQZjhm4Vw IKLxH95gbBUpo2N2 IGNvbGxhcHNlOyBlbXB0 cA9hRNhqjuqqt5mvsiyq Idd9cm47dBSpo8S7lBR8 Y2YlenZ6BSGieQPr MirriHQApN1knsuog3be utacNtJaZGJzBHt6EOe0 FIZspUzbQdShAV35MYX5 SENcjxHhD4GrFDLl pItpFfY4y2J0Ci4MY2RW ZizpC3GWNNRVSLcbpBV+ OV97hs99J8RbYmckMoe1 AHMfAVO5bSD0hI6h HXJiSCurn0K3bFM4V3Om tcXkdl7vl6rySZRwTMcd H49xpTTqu6G3FAKveGT9 EBCaiLlySaOeyO26 Oyc+SZYuyDlbi5JsLhfi a3wrl6kksBc5NxqiEPGi qvIhlQvlOWM8p9NtCi6j ADZagTC6gAY2yI0r EyCoKxV2MXpbW417BfTn kQDiXmzjX95aZ2SlcDB+ GSQgMsy8UIIxcDwdTU9u U7OdDCEjlwnxxESr lWxqYH1zSOWxhqapIPIq qZ7dZVBlN3w0FzTvQqB9 RFobZ4BpJNWiuuncFo98 cF2gDnUiTzV5ZZkk Q7OokdV2LVVtrOQlNZpb PNS8K49bb7R7RUJbDSPu KZN1sJG0xU5hxDzvltut bGVmdDsgdmVydGlj SDjxXLakE029LGCixLyp PkNvZGluZyBEYXRlOiAg MDYvMDYvMjAyMzwvdGQ+ REUfCUE4ySgbJDAi fQUnWCxvAj9qyEwyzNsg TW3yGUFzlsvvNUTsiE3d JPHpqJDcuHauLV1gEIRj poirm106SaEcYMR2 XSQajQFkV6MutP0gBaWd XIEuRPSbG6OwkIZwIUhx H234CKokIfE9OZNvnuAw S8WcWDYumFjgNpL5 u1P8Es4Ba1QzywnbB5Nx dQMjImBxZuoxRPl6O1Aa PjwvdHI+VR73DLFtQG48 NMf4YYU9rZqkMPud TBBoF0ZpxG0yIsSiNQSg ZGRkOyc+PHRhYmxlIHdp ZHRoPScxMDAlJyBzdHls FK3dWy3xNBLoHYEg aPdfgLNiHtHtj0zcXOUq DObaBW6vgKgtA9HbmJP9 SKNqm7n3Hc29L66iU6Cr dXA+IOBrvFD3rMP6 yD4uVjRlOnJ9EBqrT187 BoYctIZvCtasw6nco6qi hRf2ZwS5OBGxlcEkjMdk RES2c7RvKs32W75t IHdpZHRoPSIxNSUiIHZh oOhcns0exW2oVv3+PGNv mYO9bQQ3xU9lYeEoXzX8 TFetV873TcGkmRSo Gptfs3aco5btlNj0GvNu SGYvztBbmSuoBGA4r4Cd Fg37M2BmaCgmg7GbBma6 ga61nIAly3G9dGG7 Y3ShBLDgmswshLRqmSzn HD9zYIEafllvGQKsxP7c MKCvF1l5HhQqBfK1PCfh T2XunfI9NBFqaULh XRZzwVPAbE3iiluvv0rj edmrNzGsMNZgKBe0WCk9 FOWwqGsqEyKqBRP6NfC7 EVP7dFTgfD3gxTzd gctabS2bMfn+HSK4nGUy gDAEUA6hEasncMH+PHRk YXT4mEbvBDicVEOwuZ7l YCYeX8d0CzXyBvA3 UBzbS5QugbF2JSSlnEYa RPOkdLUPeT3rqwgrb5je zqblVkJhVTYaTCx2CTo5 LWFsaWduOiBsZWZ0 RdQ6TAH7mOVqjT0hyBzw asxbaM5zCkt+QmlydGgg NHV5XBt6O4CjJei1EAJk qEqaBB1urHWwPNmj Ya6cgJyxdPsbAQ6dXJCg mqmuc969SbAix8irDQXq nQIfXWesHAP8D13mb9O8 AKUgXYWfUMI8oJX6 aM5ziNseqetjvHJplDet rmWkbTzuWVevOCjkV127 KXKfqVptHmCdDIa7Z2Vw Jrx6UALbaNdkPW5g lMFoSRsbWa8gwFgxuNno VA3oLKLktvpok962MsYa o9vnDAViaJUkCIbfZOV3 B13qp0L9QXPwRLHr BDB4kTC2zB6vnTpoklos bGVmdDsgdmVydGljYWwt BXhmD637TEJibEbvLwSb rUr9H7GaZjx5EFBk qVtpGK6ajHRjPZdrYo5h pOgrvWakRP7iEQZtfcxj g270GuBdz8ciAKOhsORb TIdgUTC4C70lp5Z8 GGGqPOLmMPX8iWS1gA4i bGlnbjogbGVmdDsgdmVy pDldULahHYdfD672MWHj cDsnPlBhdGllbnQg PMibPBa0Z9XlHoynzXR+ EF30BEHzXL95wBBxoYUd x7ftmEl6ReIeHJGrCHO9 pVfhOTfzv5HzTZQs K61emJBis9Z6ZZMbyRol dGPsZuArcQF1oU4zCQly hceek1rwhzbiJrgdv8rk vc95kH96R93tFMvk ZHRoPSIzMCUiIHZhbGln zu9fwJ4hXh2+PGNvbCB3 qJW4vW1yCOQhQgQ7PRjr W682IlAhwXQiCqtr d9nyr5ckfZi0DyJ7AJLn hjZisBozTGY1r3GdEf61 Q05pKHtyQEJlVBOwNDRf PDNheByopx5naK2u Ii8+DVCgyQN0sJT5uF7o OzKaAsC7KRrtB092QePr hJYzFeubV26fH5RlvBI+ OSAjJpf2FZJmqDcj ZF6anWYvSRzyHp9dXQN0 QfNdBeAnTMyeP4ChEDIl sxxkyszwsUA7HKOxEIYo uV08Dv2nnTsuULNy vHKGoP4qqvobq1pcxdkb TxZjFUXaPTf5ZDo7ZKTf jRocLiAeYLZ2QhF6RRK5 xHFpfJ6ulGftvkeo bZ2hE9EtYASebwkwDv02 wR9zFrPoNkX1PScuIpc+ UPzPHGISIXJOBZUYFV6O EMsJB84WJB18DB88 yUZhk4B3fDE5C7JdWDLf yzbjiseheFQ0VRIsIZUx pD30aTZuQAzsOy3ry6H0 g708FGAgUQZyuZ68 Or7kfOqgIAYdiGAXkM9i acxsg7icgwunOnRmWSOv MVy4XFc6GZVrqZwaDdQa VJW7IwP7GOI8cXVz nZ0hwUvgmhyahS0uChg+ MDMvMDQvMTkzNTwvdGQ+ KBIwKFA7vDkdVWweKVJb mD4mCPOrQ0x7LpEt PjQ7PKqjX8UbEDBafudr Hj81dY6sNuMnKqK9TPie I5LigoI4XEOgnTLqDTcy SRX8Z64rn2I8EYDw EKXiABO4dUW1yC2cpKpa bjogbGVmdDsgdmVydGlj EPjsRXpiT848MIUwlPvf Swp8KYckEJAeAI06 ZK51aIEts5A0xQJ9M4Pl NDHsxtftykgvkLG9MTFg IOGlgC91hBItYAfsOr6v y0I7k210TBKvMGRp jN38Hb0vwYnePZHlxQFW lO3dgqbme0dauojbSkUj KJZeVDr2NGg3YTCblWnf QzEgFCL5ScT6UNQ4 yOQviB1fgYpsrhqvdJ9j Oyc+TUFMRTwvdGQ+PHRk KOM5dWohPLcdVPWhdC0g TQZaM0v9WpFtOnP0 NWwlG4EpNSVqnowkFb36 kD5bExTcHdY4ZSrrZ4Kw ucV1HHSqdSUkRBfdPUC8 C77lm3K0LTKzDRHr LMV7uFM3oK1tsNpackkw bGVmdDsgdmVydGljYWwt DWzwC635IVOmjBluDxLw sBDBjXEyEVI8OA50 EO02Z6RdEpjocTGvrLL+ PHRhYmxlIHdpZHRoPScx PEOvBnQyiCeyCE6kZz8d ZGVyLWNvbGxhcHNl XxZnr5qmUOSoSWmrFX9a gRamU8AbgOF9WOHtg9k7 Mf87S37aX1VnpIC+PGNv hTC8gOC4mT0qUgMl UpS2BRpmC741IrTeyYYx Lahsm3ttv0reaWk8QpHs UCAsfeDthToxOTS3l5Rd Uq79P42vNZitVEEa RIZhQINeXPNmdQoceq7e zV2tTf4+RKSuoNR5uGJ4 kI7qCeLcGkG9GLqpM752 GjSgmBPbTxfeO44f A2BtrLM+GPCkKct2BRJr mOaiUS7bkUUkIBajOu1k RFX3LqJaQpKrCYfbK7Yo ZGRpbmctcmlnaHQ6 EOEtJNPvqV97Do4mkEgr Kh0lXEHzLOR1NTNibGBd M4ZxiL1kTbZcTMFmLKUx W6BjvXHbOGtlA917 JSxyFfA4DDQzzwGdA2Ko KZKksOhmDyF1k0C7So9M qViizTZoEA3kYkFuEVt2 R6BzOtd5UQZqtRxm YR8cpEEvSObhQr3uhKcq eMroFK3rCQZwmjqgk947 SdGxk3idAKMpaSDxYVxk IFE9O63fq4K7JRYi HKOxTNN2oUW9gJ5tpMhj bjogbGVmdDsgdmVydGlj RXyzFUtoT827AWJvxZgy HiTJCze8R0SnRay7 DZLpbQzaJI9vaMNlYWzh Pk4veRzjvAlfMW4dJGDs nllmn949DlZen9luSACm lIOdLGesOLY4F62e b0F1WJIuDIVeXCG3xJU9 fB2ioHixdoaryQUyzWjb kdPvcPprRNnaQNowQ063 PQRaaZhaXc8EPha5 S2ZlGvi6JTUvsFmgBY8i sVIsWZrxKo9hpQnfuQsq UM8iXLUayknwu699ZoDv t5zdDFArlOWnPWqy PCE7I65ml2I1KIIyVCEd OQO1pGC4pD2feUlqaghg bGVmdDsgdmVydGljYWwt WQqxC453NSYtpGah PlBheWVyOjwvdGQ+PC90 fn04I4GeYcoxXtd1UFCw NXS1hQE5aX9yIGShYUym a0K4lQZ8H0BoylJe ci1 (more content not included)... [facility] Consent Formson 01-01-2023 Consent Forms [id number] #[id number] [facility] Inpatient Patient Summaryon 12-31-2022 Inpatient [place] [address] Patient Discharge Instructions Name: RY LERNER : 1935 Patient Address: [address] [place] [address] Primary Care Provider: Name: John Nieves MD After you are discharged if you find you have any questions, please, call [phone] ext [phone] to speak to a nurse. Discharge Diagnosis: Carpal tunnel syndrome, right Prescription Information: If you have been given a prescription for narcotics, seek immediate medical attention if you have any difficulty breathing or any sudden status changes such as confusion and sleepiness. If you or anyone you know is experiencing suicidal thoughts, mental health, alcohol and/or drug addiction problems; contact the [facility] 18/02 Crisis Hotline -Text 4HBWJ to 667567. If you received any narcotics, sedation, or any other medication that causes drowsiness for the next 24 hours, unless otherwise directed: ? Do not drive a car. ? Do not operate machinery such as power tools, lawn mowers, drills, sewing machines, or stoves ? Avoid alcoholic beverages and drugs for allergies, nerves, or sleep ? Do not make important personal or business decisions or sign any legal documents [facility] would like to thank you for allowing us to assist you with your healthcare needs. The following includes patient education materials and information regarding your injury/illness. RY LERNER has been given the following list of follow-up instructions, prescriptions, and patient education materials: Follow-up Instructions With: Address: When: MARJ PEREZ [address] [place] [address], [address] [place] [address] Business (1) 01/09/2023 11:00 AM Medications During the course of your visit, your medication list was updated with the most current information. The details of those changes are reflected below: Medications to Continue That Have Not Changed Other Medications amLODIPine (amLODIPine 5 mg oral tablet) 1 tab(s) Oral every day. TAKE ONE TABLET BY MOUTH DAILY. furosemide (furosemide 40 mg oral tablet) 1 tab(s) Oral every day. TAKE ONE TABLET BY MOUTH DAILY. glucosamine (glucosamine hydrochloride 1500 mg oral tablet) 1 tab(s) Oral every day. lisinopril (lisinopril 20 mg oral tablet) 1 tab(s) Oral every day. multivitamin (Vitamin B Complex oral capsule) 1 cap(s) Oral 2 times a day. omeprazole (omeprazole 40 mg oral delayed release capsule) 1 cap(s) Oral every day. Lindsey's wort (Lindsey's wort oral tablet) 1 tab(s) Oral 2 times a day. warfarin (warfarin 5 mg oral tablet) 1 tab(s) Oral every day. It is important to always keep an active list of medications available so that you can share with other providers and manage your medications appropriately. As an additional courtesy, we are also providing you with your final active medications list that you can keep with you. amLODIPine (amLODIPine 5 mg oral tablet) 1 tab(s) Oral every day. TAKE ONE TABLET BY MOUTH DAILY. furosemide (furosemide 40 mg oral tablet) 1 tab(s) Oral every day. TAKE ONE TABLET BY MOUTH DAILY. glucosamine (glucosamine hydrochloride 1500 mg oral tablet) 1 tab(s) Oral every day. lisinopril (lisinopril 20 mg oral tablet) 1 tab(s) Oral every day. multivitamin (Vitamin B Complex oral capsule) 1 cap(s) Oral 2 times a day. omeprazole (omeprazole 40 mg oral delayed release capsule) 1 cap(s) Oral every day. [place]'s wort (Lindsey's wort oral tablet) 1 tab(s) Oral 2 times a day. warfarin (warfarin 5 mg oral tablet) 1 tab(s) Oral every day. Take only the medications listed above. Contact your doctor prior to taking any medications not on this list. Diet & Activity Patient Activity Level: Patient Diet: Patient Activity Restrictions: Comment: Patient education materials, if any, will display below DR. 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 Keep your hand elevated above your elbow for the first 24 hours after surgery 2. Wiggle your fingers frequently while awake 3. DO NOT lift heavy objects or final touch up painter forcefully with your hand 4. Change your dressing in 1 day and apply an toan bandage as directed with the thumb tucked towards the palm of your hand. This keeps the tension off your incision 5. You may shower in 1 day but do not submerge your hand under water. Put a 4x4 gauze and the toan bandage back on after you shower 6. If you have any problems or concerns, please call the office at [phone] 7. Follow up as scheduled Viruses or Bacteria What?s got you sick? Antibiotics only treat bacterial infections. Viral illnesses cannot be treated with antibiotics. When an antibiotic is not prescribed, ask your healthcare professional for tips on how to relieve symptoms and feel better. Usual Cause Illness Viruses Bacteria Antibiotic Neede (more content not included)... Normal [facility] Lab Reportson 12-31-2022 Lab Reports [id number] Normal [facility] MAGR Intraoperative Recordon 12-31-2022 MAGR Intraoperative Record MAGR Intra-Op Record Summary Primary Physician: Ward Martinez DO Finalized Date/Time: 12/31/22 11:56:55 Pt. Name: RY LERNER/Sex: 1935 MALE Med Rec #: [id number] Physician: Ward Martinez DO Financial #: [id number] Pt. Type: D Room/Bed: / Admit/Disch: 12/31/22 08:09:06 - 12/31/22 09:54:00 Institution: Case Times MAGR Entry 1 Patient In Room Time 12/31/22 09:15:00 Out Room Time 12/31/22 09:46:00 Anesthesia Start Time 12/31/22 09:29:00 Stop Time 12/31/22 09:41:00 Surgery Start Time 12/31/22 09:29:00 Stop Time 12/31/22 09:41:00 Last Modified By: Chelita Borjas RN 12/31/22 09:49:25 Case Attendance MAGR Entry 1 Entry 2 Entry 3 Case Attendee Ward Martinez RN, Lyndsey Christianson RN, DO Role Performed Surgeon - Primary Quality Control Supervisor Quality Control Supervisor Time In 12/31/22 09:15:00 12/31/22 09:15:00 12/31/22 09:15:00 Time Out 12/31/22 09:37:00 12/31/22 09:46:00 12/31/22 09:46:00 Procedure Carpal Tunnel Carpal Tunnel Carpal Tunnel Release(Right) Release(Right) Release(Right) Last Modified By: [place] PERSAUD, Chelita Borjas RN, Chelita Mc RN 12/31/22 09:49:26 12/31/22 09:49:26 12/31/22 09:49:26 Entry 4 Entry 5 Case Attendee Lavern Vasques Kelly CST MISSILEMAN Role Performed Healthcare Consulting Manager Scrub Personnel Time In 12/31/22 09:15:00 12/31/22 09:15:00 Time Out 12/31/22 09:46:00 12/31/22 09:46:00 Procedure Carpal Tunnel Carpal Tunnel Release(Right) Release(Right) Last Modified By: Chelita Borjas RN, RN, Kathleen A 12/31/22 09:49:26 12/31/22 09:49:26 Surgical Procedures [facility] Pre-Care Text: A.20 Verifies operative procedure, surgical site, and laterality Im.150 Develops individualized plan of care Entry 1 Procedure Carpal Tunnel Release Primary Procedure Yes Primary Surgeon Ward Martinez DO Surgeon Comment RIGHT CARPAL TUNNEL Start 12/31/22 09:29:00 RELEASE Stop 12/31/22 09:41:00 Anesthesia Type Local Surgical Service Orthopedics Wound Class Clean Technique Details Closure Technique Primary Entire procedure No was performed via laparoscope or robotic assistance Last Modified By: Chelita Borjas RN 12/31/22 09:49:29 Post-Care Text: O.730 The patient's care is consistent with the individualized perioperative plan of care General Case Data [facility] Pre-Care Text: A.350.1 Classifies surgical wound Entry 1 Case Information OR MAGR OR 01 Case Level Level 2 Wound Class Clean Specialty Orthopedics ASA Class N/A Diagnosis Preop Diagnosis RIGHT CARPAL TUNNEL Postop Same As Preop Yes SYNDROME Postop Diagnosis RIGHT CARPAL TUNNEL SYNDROME Blunt or No Is the procedure No penetrating injury considered occured prior to Emergent/Urgent? the start of the procedure: Last Modified By: Chelita Borjas RN 12/31/22 08:29:02 Post-Care Text: O.760 Patient receives consistent and comparable care regardless of the setting Time Out MAGR Entry 1 Time out date/time 12/31/22 09:28:00 All team members Yes have introduced themselves by name and role Surgeon, Yes Surgeon reviews Yes anesthesia, nurse critical or confirm patient, unexpected steps, site, procedure operative duration, anticipated blood loss Anesthesia team No Nursing team Yes reviews any reviews sterility patient-specific (including concerns indicator results) and equipment issues/concerns Antibiotic Antibiotic Yes prophylaxis given within the last 60 minutes Last Modified By: Chelita Borjas RN 12/31/22 09:33:15 Patient Positioning [facility] Pre-Care Text: A.280 Identifies baseline musculoskeletal status Im.40 Positions the patient Im.80 Applies safety devices Entry 1 Procedure Carpal Tunnel Body Position Supine Release(Right) Left Arm Position Extended on padded arm Right Arm Position Extended on padded arm board board Left Leg Position Extended Right Leg Position Extended Feet Uncrossed? Yes Press Points Checked Yes Positioning Device Arm Boards, Arm Strap, Outcome Met (O.80) Yes Pillow, Safety Strap Last Modified By: Chelita Borjas RN 12/31/22 08:29:53 Post-Care Text: E.290 Evaluates musculoskeletal status O.80 Patient is free from signs and symptoms of injury related to positioning Skin Prep [facility] Pre-Care Text: A.30 Verifies allergies Im.270 Performs skin preparation Im.270.1 Implements protective measures to prevent skin and tissue injury due to chemical sources Entry 1 Skin Prep Syntegrity Prep Agents (Im.270) 7.5% Povidone-Iodine Prep By Chelita Borjas RN Scrub 10% Povidone-Iodine [place] Prep Area (Im.270) Elbow and forearm, Prep Area Details Right Hand, Wrist Skin Prep Agent Dry Yes Without Pooling Hair Removal Syntegrity Hair Removal Methods No hair removal performed Outcome Met (O.100) Yes Last Modified By: Chelita Borjas RN 12/31/22 11:55:12 Pos (more content not included)... [facility] 12-31-[facility]22 [facility] Preoperative Record MAGR Pre-Op Record Summary Primary Physician: Ward Martinez DO Finalized Date/Time: 12/31/22 09:13:14 Pt. Name: RY LERNER/Sex: 1935 MALE Med Rec #: [id number] Physician: Ward Martinez DO Financial #: [id number] Pt. Type: D Room/Bed: / Admit/Disch: 12/31/22 08:09:06 - Institution: Pre-Op Case Times MAGR Pre-Care Text: Patient will be optimally prepared for surgery. Patient is free from s/s of injury. Provide information to patient/family related to plan of care. Verify patient allergies. Confirm identity and verify consent before the operative or invasive procedure. Entry 1 Patient Arrival Time 12/31/22 08:15:00 Preop Departure 12/31/22 09:13:00 Last Modified By: Vicky Ponce RN 12/31/22 09:13:07 Post-Care Text: Patient is prepared mentally and physically and is ready for surgery. The patient remains free from s/s of injury. Patient/family express understanding of plan of care and participate in decisions affecting his or her perioperrative plan of care. Allergies documented appropriately. Patient identifiers and consent correct. General Comments: pt arrives to [facility] ambulatory. denies CP,cough,cold, COVID like symtpoms. denies diabetes, pt has pacemaker,denies sleep apnea. pt verbalizes understanding of post op instructions Finalized By: Vicky Ponce RN Document Signatures Signed By: Vicky Ponce RN 12/31/22 09:13 [facility] Patient Handouton 12-31-[address] 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 Keep your hand elevated above your elbow for the first 24 hours after surgery 2. Wiggle your fingers frequently while awake 3. DO NOT lift heavy objects or final touch up painter forcefully with your hand 4. Change your dressing in 1 day and apply an toan bandage as directed with the thumb tucked towards the palm of your hand. This keeps the tension off your incision 5. You may shower in 1 day but do not submerge your hand under water. Put a 4x4 gauze and the toan bandage back on after you shower 6. If you have any problems or concerns, please call the office at [phone] 7. Follow up as scheduled [facility] Physician Referralon 023 Physician Referral [id number] 1#1.00CD:127 Normal [facility] Living Will/POAon 12-26-2022 Living Will/POA [id number] #1.00CD:127 Normal [facility] CBC AUTO DIFFon 12-25-2022 BASO # 0.0 103/ul Normal 0.0-0.1 [facility] Comment on above: Performed By: #### C BC #### [facility] [address] [address] [address] Rashmi Nolan Basophils/100 WBC (Bld) 0.6 % Normal 0.2-2.0 [facility] Comment on above: Performed By: #### C BC #### [facility] [address] [address] [address] Rashmi Nolan EO # 0.2 103/ul Normal 0.0-0.7 [facility] Comment on above: Performed By: #### C BC #### [facility] [address] [address] [address] Rashmi Nolan Eosinophils/100 WBC (Bld) 6.9 % Normal 0.9-7.0 [facility] Comment on above: Performed By: #### C BC #### [facility] [address] [address] [address] Rashmi Nolan Erythrocyte distribution width (RBC) [Ratio] 14.0 % Normal 11.0-15.0 [facility] Comment on above: Performed By: #### C BC #### [facility] [address] [address] [address] Rashmi Nolan Hematocrit (Bld) [Volume fraction] 29.8 % Critically low 42.0-54.0 [facility] Comment on above: Performed By: #### C BC #### [facility] [address] [address] [address] Rashmi Nolan Hemoglobin (Bld) [Mass/Vol] 9.8 g/dL Critically low 14.0-18.0 [facility] Comment on above: Performed By: #### C BC #### [facility] [address] [place] [address] Dr. Rashmi Nolan IG # 0.02 10e3/ul Normal 0.00-0.03 [facility] Comment on above: Performed By: #### C BC #### [facility] [address] [address] [address] Rashmi Nolan IG % 0.6 % Critically high 0.0-0.5 [facility] Comment on above: Performed By: #### C BC #### [facility] [address] [address] [address] Rashmi Nolan LYMPH # 0.8 103/ul Critically low 1.2-3.8 [facility] Comment on above: Performed By: #### C BC #### [facility] [address] [place] [address] Dr. Rashmi Nolan Lymphocytes/100 WBC (Bld) 25.1 % Normal 20.5-60.0 [facility] Comment on above: Performed By: #### C BC #### [facility] [address] [place] [address] Dr. Rashmi Nolan MANUAL DIFF REQ NO Normal [facility] Comment on above: Performed By: #### C BC #### [facility] [address] [place] [address] Dr. Rashmi Nolan MCH (RBC) [Entitic mass] 33.0 pg Normal 25.9-34.0 [facility] Comment on above: Performed By: #### C BC #### [facility] [address] [place] [address] Dr. Rashmi Nolan MCHC (RBC) [Mass/Vol] 32.9 g/dL Normal 29.9-35.2 [facility] Comment on above: Performed By: #### C BC #### [facility] [address] [place] [address] Dr. Rashmi Nolan MCV (RBC) [Entitic vol] 100.3 fL Critically high 80.0-94.0 [facility] Comment on above: Performed By: #### C BC #### [facility] [address] [place] [address] Dr. Rashmi Nolan MONO # 0.3 103/ul Normal 0.3-0.8 [facility] Comment on above: Performed By: #### C BC #### [facility] [address] [place] [address] Dr. Rashmi Nolan Monocytes/100 WBC (Bld) 9.6 % Normal 1.7-12.0 [facility] Comment on above: Performed By: #### C BC #### [facility] [address] [place] [address] Dr. Rashmi Nolan NEUT # 1.9 103/ul Normal 1.4-6.5 [facility] Comment on above: Performed By: #### C BC #### [facility] [address] [address] [address] Rashmi Nolan Neutrophils/100 WBC (Bld) 57.2 % Normal 43.0-75.0 [facility] Comment on above: Performed By: #### C BC #### [facility] [address] [place] [address] Dr. Rashmi Nolan Platelet mean volume (Bld) [Entitic vol] 10.5 fL Normal 9.5-13.5 [facility] Comment on above: Performed By: #### C BC #### [facility] [address] [place] [address] Dr. Rashmi Nolan PLT 129 103/ul Critically low 150-450 [facility] Comment on above: Performed By: #### C BC #### [facility] [address] [place] [address] Dr. Rashmi Nolan RBC 2.97 106/ul Critically low 4.70-6.10 [facility] Comment on above: Performed By: #### C BC #### [facility] [address] [place] [address] Dr. Rashmi Nolan WBC 3.3 103/ul Critically low 4.0-11.0 [facility] Comment on above: Performed By: #### C BC #### [facility] [address] [place] [address] Dr. Rashmi Nolan PROTIMEon 12-25-2022 INR Coag (PPP) [Relative time] 1.03 {INR} Normal [facility] Comment on above: Performed By: #### B MP #### [facility] [address] [place] [address] Dr. Rashmi Nolan INR GUIDELINES SEE BELOW Normal [facility] Comment on above: Result Comment: ENOC RED INR: 2.0 - 3.0 CONDITIONS NOT LISTED BELOW 2.5 - 3.5 FOR PROSTHETIC HEART VALVE REPLACEMENT 2.5 - 3.5 RECURRENT THROMBOSIS Performed By: #### B MP #### [facility] [address] [address] [address] aRshmi Nolan PT Coag (PPP) [Time] 10.9 s Normal 9.0-11.6 [facility] Comment on above: Performed By: #### B MP #### [facility] [address] [address] [address] Rashmi Nolan PTTon 12-25-2022 aPTT Coag (Bld) [Time] 25.6 s Normal 22.3-36.2 [facility] Comment on above: Performed By: #### C BC #### [facility] [address] [address] [address] Rashmi Nolan Ambulatory Visit Summaryon 0 12-21-2022 Ambulatory Visit Summary RY LERNER :1935 Visit Date:12/21/2022 Ambulatory Visit Instructions Your Diagnosis BMI 30.0-30.9,adult Former cigar smoker Your Care Team Attending Physician - Leidy Simms Primary Care Physician - Leidy Simms This Is Your Medications List amlodipine (amLODIPine 5 mg Tab) chondroitin-glucosam ine (Osteo Bi-[employer] with Ascorbic Acid and Minerals oral tablet) furosemide (furosemide 40 mg Tab) lisinopril (lisinopril 20 mg Tab) omeprazole (omeprazole 40 mg Cap-DR) warfarin (warfarin 5 mg Tab) Procedures Performed Colonoscopy (12/12/2022), Carpal tunnel release (12/10/2022), Cardiac pacemaker (09/2021), Colonoscopy (02/2011), Transurethral resection of prostate (TURP) syndrome (1995), Hernia (1993), Tonsillectomy with adenoidectomy. Discharge Vitals Heart Rate (Peripheral) 64 Blood Pressure 130/64 Height 178.5 cm Height 70 in Weight 97.4 kg Weight 214.28 lb BMI 30.57 Medications What How Much When Instructions Unchanged amlodipine (amLODIPine 5 mg Tab) 1 Tablets By Mouth Every day Unchanged chondroitin-glucosam ine (Osteo Bi-Flex [employer] with Ascorbic Acid and Minerals oral tablet) Unchanged furosemide (furosemide 40 mg Tab) 1 Tablets By Mouth Every day Unchanged lisinopril (lisinopril 20 mg Tab) 1 Tablets By Mouth Every day Unchanged omeprazole (omeprazole 40 mg Cap-DR) 1 Capsules By Mouth Unchanged warfarin (warfarin 5 mg Tab) 1 Tablets By Mouth Every day Allergies No Known Medication Allergies Problems Ongoing - Any problem that you are currently receiving treatment for. Acute cerebrovascular accident (CVA) AF (atrial fibrillation) Anemia BMI 30.0-30.9,adult Contusion of lung Dyshidrotic eczema Dysrhythmias Former cigar smoker Hemoperitoneum HTN (hypertension) Hyperlipidemia Education Materials BMI for Adults What is BMI? Body mass index (BMI) is a number that is calculated from a person's weight and height. BMI can help estimate how much of a person's weight is composed of fat. BMI does not measure body fat directly. Rather, it is an alternative to procedures that directly measure body fat, which can be difficult and expensive. BMI can help identify people who may be at higher risk for certain medical problems. What are BMI measurements used for? BMI is used as a screening tool to identify possible weight problems. It helps determine whether a person is obese, overweight, a healthy weight, or underweight. BMI is useful for: ? Identifying a weight problem that may be related to a medical condition or may increase the risk for medical problems. ? Promoting changes, such as changes in diet and exercise, to help reach a healthy weight. BMI screening can be repeated to see if these changes are working. How is BMI calculated? BMI involves measuring your weight in relation to your height. Both height and weight are measured, and the BMI is calculated from those numbers. This can be done either in [place] or metric measurements. Note that charts and online BMI calculators are available to help you find your BMI quickly and easily without having to do these calculations yourself. To calculate your BMI in [place] measurements: 1. Measure your weight in pounds (lb). 2. Multiply the number of pounds by 703. ? For example, for a person who weighs 180 lb, multiply that number by 703, which equals 126,540. 3. Measure your height in inches. Then multiply that number by itself to get a measurement called inches squared. ? For example, for a person who is 70 inches tall, the inches squared measurement is 70 inches x 70 inches, which equals 4,900 inches squared. 4. Divide the total from step 2 (number of lb x 703) by the total from step 3 (inches squared): 126,540 ? 4,900 = 25.8. This is your BMI. To calculate your BMI in metric measurements: 1. Measure your weight in kilograms (kg). 2. Measure your height in meters (m). Then multiply that number by itself to get a measurement called meters squared. ? For example, for a person who is 1.75 m tall, the meters squared measurement is 1.75 m x 1.75 m, which is equal to 3.1 meters squared. 3. Divide the number of kilograms (your weight) by the meters squared number. In this example: 70 ? 3.1 = 22.6. This is your BMI. What do the results mean? BMI charts are used to identify whether you are underweight, normal weight, overweight, or obese. The following guidelines will be used: ? Underweight: BMI less than 18.5. ? Normal weight: BMI between 18.5 and 24.9. ? Overweight: BMI between 25 and 29.9. ? Obese: BMI of 30 or above. Keep these notes in mind: ? Weight includes both fat and muscle, so someone with a muscular build, such as an athlete, may have a BMI that is higher than 24.9. In cases like these, BMI is not an accurate measure of body fat. ? (more content not included)... Normal [facility] Family Medicine Office/Clini c Noteon 12-21-2022 Family Medicine Office/Clinic Note Chief Complaint Hospital stay follow up HPI Staff Presents for hospital follow up [facility] 12/11-12/14 bleeding ulcer/bloody stools Had Upper and lower scope done. found diverticulosis and bleeding ulcer. Questions/concerns: eczema, why needs to stay on Lasix, why taken off warfarin when to start back up. History of Present Illness pt presents today fro follow up for admission to [facility] for GI bleed Review of Systems PHQ Score Initial Depression Screen Score: 0 ROS - Provider Constitutional: no fever, no chills, no sweats, no fatigue Respiratory: no shortness of breath, no cough, no orthopnea, no wheezing. Cardiovascular: no chest pain, no palpitations, no edema. Neurologic: no headache, no dizziness, no numbness, no weakness. Physical Exam Vitals & Measurements HR: 64(Peripheral) BP: 130/64 SpO2: 99% HT: 70 in HT: 178.5 cm WT: 97.4 kg WT: 214.28 lb BMI: 30.57 General: alert, no acute distress ENMT: oral mucosa moist, no pharyngeal erythema or exudate Cardiovascular: regular rate and rhythm, normal peripheral perfusion Respiratory: Lungs CTA, respirations non labored Extremities: no deformity, no trauma Neurological: oriented x 4, LOC appropriate for age, CN II-XII intact, motor strength equal & normal bilaterally, speech normal Assessment/Plan 1. GI bleed (K92.2: Gastrointestinal hemorrhage, unspecified) pt presents today for follow up from admission to [facility] for GI bleed. he received 2 units of blood. and had egd and colonsocopy that show a gastic ulcer and diverticulosis. he was cleared by GI yesterday. he remains off of his warfrin for now. Dr. Silva spoke to Dr. Black ([place]'s clerical specialist) and he was ok with keeping him off the warfarin for now. pt is to call his office for follow up to determine when he should start back on it or if there is another alternative medication that he can afford. Gi instructed him to take omeprazole daily instead of BID. refills sent to pharmacy. he does not need refills on anything else at this time. 2. AF (atrial fibrillation) (I48.91: Unspecified atrial fibrillation) pt has pacemaker in place. warfarin on hold for now 3. BMI 30.0-30.9,adult (Z68.30: Body mass index [BMI] 30.0-30.9, adult) BMI education complete 4. 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) continue not smoking Orders: omeprazole, 40 mg = 1 cap(s), Oral, Daily, # 90 cap(s), Refills(s) 3, Pharmacy: [id number], 819.5, cm, 12/21/22 13:08:00 EDT, Height/Length Dosing, 97.4, kg, 12/21/22 13:08:00 EDT, Weight Dosing Follow-up No qualifying data available Patient Education BMI for Adults Problem List/Past Medical History Ongoing Acute cerebrovascular accident (CVA) AF (atrial fibrillation) Anemia BMI 30.0-30.9,adult Contusion of lung Dyshidrotic eczema Dysrhythmias Former cigar smoker Hemoperitoneum HTN (hypertension) Hyperlipidemia Historical No qualifying data Procedure/Surgical History Colonoscopy (12/12/2022), Carpal tunnel release (12/10/2022), Cardiac pacemaker (09/2021), Colonoscopy (02/2011), Transurethral resection of prostate (TURP) syndrome (1995), Hernia (1993), Tonsillectomy with adenoidectomy. Medications amLODIPine 5 mg Tab, 5 mg= 1 tab(s), Oral, Daily furosemide 40 mg Tab, 40 mg= 1 tab(s), Oral, Daily lisinopril 20 mg Tab, 20 mg= 1 tab(s), Oral, Daily omeprazole 40 mg Cap-DR, 40 mg= 1 cap(s), Oral, Daily, 3 refills Osteo Bi-Flex [employer] with Ascorbic Acid and Minerals oral tablet warfarin 5 mg Tab, 5 mg= 1 tab(s), Oral, Daily, Not taking Allergies No Known Medication Allergies Social History Alcohol - Low Risk, 12/11/2022 Current, Liquor, 3-5 times per week, Household alcohol concerns: No., 12/11/2022 Substance Abuse - Denies Substance Abuse, 12/11/2022 Household substance abuse concerns: No., 12/11/2022 Tobacco - Denies Tobacco Use, 12/11/2022 Former smoker, quit more than 30 days ago Tobacco Use:. Never Smokeless Tobacco Use:. Cigars, Pipe, Household tobacco concerns: No., 12/21/2022 Family History Diabetes mellitus type 1: Grandparent. Primary malignant neoplasm of colon: Father and Brother. Immunizations Vaccine Date Status Comments influenza virus vaccine, inactivated 05/02/2022 Recorded SARS-CoV-2 (COVID-19) mRNA BNT-162b2 vax 09/17/2020 Recorded 2022-10-31: TPV80 SARS-CoV-2 (COVID-19) mRNA BNT-162b2 vax 08/27/2020 Recorded 2022-10-31: TPV80 influenza virus vaccine, inactivated 06/13/2020 Recorded influenza virus vaccine, inactivated 06/01/2019 Recorded influenza virus vaccine, inactivated 04/14/2018 Recorded influenza virus vaccine, inactivated 04/22/2017 Recorded influenza virus vaccine, inactivated 05/01/2016 Recorded influenza virus vaccine, inactivated 06/02/2015 Recorded influenza virus vaccine, inactivated 05/31/2014 Recorded influenza virus vaccine, inactivated 06/02/2013 Recorded influenza, whole 05/29/2005 Recorded Normal [facility] Comment on above: Result Comment: Elec tronically Signed By: Liedy Simms\.br\Date and Time Signed: 12/21/22 15:03 EDT Patient Educationon 12-22-19 23 Patient Education Nutrition BMI for Adults What is BMI? Body mass index (BMI) is a number that is calculated from a person's weight and height. BMI can help estimate how much of a person's weight is composed of fat. BMI does not measure body fat directly. Rather, it is an alternative to procedures that directly measure body fat, which can be difficult and expensive. BMI can help identify people who may be at higher risk for certain medical problems. What are BMI measurements used for? BMI is used as a screening tool to identify possible weight problems. It helps determine whether a person is obese, overweight, a healthy weight, or underweight. BMI is useful for: ? Identifying a weight problem that may be related to a medical condition or may increase the risk for medical problems. ? Promoting changes, such as changes in diet and exercise, to help reach a healthy weight. BMI screening can be repeated to see if these changes are working. How is BMI calculated? BMI involves measuring your weight in relation to your height. Both height and weight are measured, and the BMI is calculated from those numbers. This can be done either in [place] or metric measurements. Note that charts and online BMI calculators are available to help you find your BMI quickly and easily without having to do these calculations yourself. To calculate your BMI in [place] measurements: 1. Measure your weight in pounds (lb). 2. Multiply the number of pounds by 703. ? For example, for a person who weighs 180 lb, multiply that number by 703, which equals 126,540. 3. Measure your height in inches. Then multiply that number by itself to get a measurement called inches squared. ? For example, for a person who is 70 inches tall, the inches squared measurement is 70 inches x 70 inches, which equals 4,900 inches squared. 4. Divide the total from step 2 (number of lb x 703) by the total from step 3 (inches squared): 126,540 ? 4,900 = 25.8. This is your BMI. To calculate your BMI in metric measurements: 1. Measure your weight in kilograms (kg). 2. Measure your height in meters (m). Then multiply that number by itself to get a measurement called meters squared. ? For example, for a person who is 1.75 m tall, the meters squared measurement is 1.75 m x 1.75 m, which is equal to 3.1 meters squared. 3. Divide the number of kilograms (your weight) by the meters squared number. In this example: 70 ? 3.1 = 22.6. This is your BMI. What do the results mean? BMI charts are used to identify whether you are underweight, normal weight, overweight, or obese. The following guidelines will be used: ? Underweight: BMI less than 18.5. ? Normal weight: BMI between 18.5 and 24.9. ? Overweight: BMI between 25 and 29.9. ? Obese: BMI of 30 or above. Keep these notes in mind: ? Weight includes both fat and muscle, so someone with a muscular build, such as an athlete, may have a BMI that is higher than 24.9. In cases like these, BMI is not an accurate measure of body fat. ? To determine if excess body fat is the cause of a BMI of 25 or higher, further assessments may need to be done by a health care provider. ? BMI is usually interpreted in the same way for men and women. Where to find more information For more information about BMI, including tools to quickly calculate your BMI, go to these websites: ? Centers for Disease Control and Prevention: www.cdc.gov ? [place] Heart Association: www.heart.org ? National Heart, Lung, and Blood [place]: www.nhlbi.nih.gov Summary ? Body mass index (BMI) is a number that is calculated from a person's weight and height. ? BMI may help estimate how much of a person's weight is composed of fat. BMI can help identify those who may be at higher risk for certain medical problems. ? BMI can be measured using [place] measurements or metric measurements. ? BMI charts are used to identify whether you are underweight, normal weight, overweight, or obese. This information is not intended to replace advice given to you by your health care provider. Make sure you discuss any questions you have with your health care provider. Document Revised: 04/06/2020 Document Reviewed: 02/12/2020 [employer] Patient Education ? 2022 [employer] [facility] Coding Summaryon 12-19-2022 Coding Summary HTMLBase 64 SfuimgciJMy5cKh+PGhl YWQ+CC8RMJShM90vgORr pO0aJ7RAXYmXCnxyPGUU YSnSSwFkbhQwVM6cmIBe ZXJu IC8+VU9mQYEmMwomfGAr h1B8uCN2L75qyh5eGMvi uIP4JHGdFyOjlpqbf1ce rFq5GVrpMngrWeZf INVbmI90KCQ4mT07Wy28 kYCdpFMmq3yncUg8ZnJb CZSzKBH2hBjoLUzfk5Rp VWVwL10fiNDbi4G2 IGNvbGxhcHNlOyBlbXB0 yB7sFFqresgcl1rjgzdj Jki4og79nGTph3K1lNC0 P4FsqxS6LMKdfDGp UiwacWEKwU9qcpmuv4rr gokmLsSiMJNbZRq8NVs0 YVCigMjhAbDjDN72BLI0 VOBcgsHjH0FfQOZa gCqvWjS1w6S5Rz3NW7RZ JhvsL3ZJMXTWZScpuGJ+ BH46ot33V4MoSfyqPaa8 URIxVKT0qNR9eA9x QSJoTFvsb0A0wBB8H2Rp bsRsco3ga1byKQHuTUjw Q31vkOFcf1K6YZDvuTC7 BQGpjApvEtFdeD68 Oyc+OCKloZmoo6EoZyfe x9dmq0mydCx0MkhgPTBs clYbrLnvHPH8h4OgXq8k EBFovFG2bXE5hU2t UvEsSnC3DMlcV344WlZr oIKqZqtpC34cU7MryNZ+ MXUzGkf4GMDpnVrbVN7a Z7KmUNUjyyeopSCx iFyuVX5rYIZmqqmmDSHp kW9bTFRdV5c6WrBgOiE6 WLrqH8JxJYGuzhbeNz65 yA0vYmJbVvE3FPoc S6AxbaD5ECAntLJlKSxw XYH0A60nm1F3PPCiVCHl CCJ0yCX5iB3ouRbkodtn bGVmdDsgdmVydGlj ZObzGQqcB454KXBhqSau PkNvZGluZyBEYXRlOiAg MDUvMjQvMjAyMzwvdGQ+ MXSeJHK1tUzrDRCk mNCuAPkiRf4noThqvZbj RY5tPQCliqszYLHjsC1q PPWaoRSnwZmxUW0rGDNn xhvwz448TjGbZIX6 TTBdvLKdU8DkzW1jLeXi WNBzVFZqE4HswXZkMJjt J316RLvmDnA8TIAyubIg T0OyXDVqlPeiUbU3 i7U0Vg1Mz7OidkwhK8Ei uPYqPvJsDnelXBe4F0Bf PjwvdHI+ZP80CMHiEN70 OKj6XHM7iWnwRHuj EDAfP1VcrI5lRjBbJFDh ZGRkOyc+PHRhYmxlIHdp ZHRoPScxMDAlJyBzdHls AY7yWp3gDKYzHDOr jVouuVYqJxJat8guUNBx REicVY8rsKnpP6MgfMI1 YONkb2z3Gn03S16gN5Em dXA+WLSwmOC7mKM4 yN1xXaDoShV5WRxoV891 SiHrwFNmVeakg7pct3wv cEs6EzE2JUGluqMqdObo HZN7f5GgLt36Q53k IHdpZHRoPSIxNSUiIHZh vZeldc0heE0aPg3+PGNv lQA8rBM6cI2bOoEyKnW9 DXlmR899IqHtlYKj Axixj2mlp0vjsHp1VhKf BWIrokSfbQsaGJD0t8Op Pe13N9WpkRdry6MjIne5 ay73jKHgd7O0aJM5 P6TiIJVlyhjrcPXvnKwt VK0mXXZbyqlrNJGlnB1u ZJMvF2f8RiGcLlC7WUqg P9EeviD2LWYmiTYt HKEgoDAJwK6btauhz0tq rqmeCyAuSKQmQOq2MBc7 NNWtbUvyAdBiWMC8EyB3 SVG4fLLanH9iqZlz euanfM3tKqp+XTF8uJWg jVZJRA5fFtepjDW+PHRk MOP4dFjtBDqwEWWilM8d CUOcD0d7KqOeHxW5 MKxlJ1LsryB4APCvmPIz LSExeHALuK1pbpvta0kw snhyZrLfDTJyQUa6QAg7 LWFsaWduOiBsZWZ0 PpT3SWL4wILjrD9ahNfq gcfvgO2tNrr+QmlydGgg IXX6ISw4Q9ReGae9AUPe mCrgWJ1ciYQyLXgb Dj7ksCppiGphLO0mJYVo fpopv782FwKwd6rgBMMx vVMsFCjuRYJ8P65ae3U8 PRWgCYRvQNA1pYM1 iX5jxHqojiqkrWNxpXrc ttZhqCjhITviEExiO045 CRQxvCsvOfRpINh6K2Xs Mli8WBQxnMobSZ1k zLYzRRwqZq8zpXaxxKdm SA7pNODfgcsjz649LbVx c0bxWIEddMLqKBxiBLG5 X84sw2Z7FZXcZIPl MCG9xSB9xT5qpSbfdwar bGVmdDsgdmVydGljYWwt LVmcC895WWMqkNsaZmZi cJj8J6AgWnc3GDOp wOoiKM6kiADhVHljCn4w xGogkKfnWN6tPPDqjxqx f073IlCsd3wyOEBnfNVv XMasMUG1R75yx7F1 OZRkPZFqKQZ5cAR2oI5a bGlnbjogbGVmdDsgdmVy xFswVRthZEzdQ179BXZe cDsnPlBhdGllbnQg LYxgKUe7H1ZdJxlwvUY+ JG20AJFoNQ94bTKbgJDt f4uhjWu4AbNkCJZrOSN1 tEyuPZlnx0JwHFHg P65trEVku8J0XLQqcFxu vTQxLaVitJW6eE4zXWem skkwx2xuepwwKxbdx3oi zb42wD32F02yMYwp ZHRoPSIzMCUiIHZhbGln cq6guH1kVd0+PGNvbCB3 zWB9wR2jWJPdQpU2HUoh Q673NrDmrSBhZhkc j2gmp3kdtWi1SuZ4MDNi pqWvlCkfHAG4y3HjXy12 W27fRMqjMCLlSIIhFQMw GULfxHpipi4yfV5g Ii8+OMYutJX2wZT5uI4h MuSiZvY4XQwuZ452NmUu cWIhPcrcQ70fA1NjaPV+ VIFoFrw0ORExmObv MS7iaUHmVRpaGt1xAHV5 YeDmHcCkHMstR0OwWZGf ugsyslxfbLW6RYDwKKTc kI58Pf1mpIknCMSk hRSCtN9oowzzq3awcjwt XjFcPNPtYYc4KYe4HDDy sNznXrNxDTQ5LyG5VQQ9 mLDgvK4puUwlywqx vS4zM6BxSHFcqplwXc19 fM2lEcHjRqX5YKpgLlo+ ZVbUOIMDFPCWECURMM7P KDqDI56SHP38KD66 rNUpe2K2xXE7L0LsPWWe hygfwvjmwUY5DCSsWVXi kT81jGNwTKtlMz7pd0Q3 e984MNRsTFZueB88 Tz4cuEzgQTYeoKBDxP6d ggxog7ymfqidQrEeAUEv MYr8FEf2WHVtvHzzMuMf IMN1GbH0HRL2bSNg cZ7bcCvmfubkuA4dCup+ MDMvMDQvMTkzNTwvdGQ+ CRUvYTX2pHubJVbrSATq uG2tUDNqD2k4BlOi HwH2VWwhP1KyQLKltxke Si91bL1jTyJhHqX8LJec S7UdzbR7MPUblZPwWIwq NTJ8N13xz4W3ECCz JHFlLFH3kKJ7cK5jtSjb bjogbGVmdDsgdmVydGlj YRurADhwB847CVQbiNmb Tgn7LEvyWJCqWU80 UQ23iVHxs5X9dPH9B0Yn LPIpqspevfhkuFG0TDAm IRAmzP31bVSzWMthEx1m p7L3k288RSIoWQVh tX85Ts7zlCbpSYYtoFWJ sS5jlkokb6pubsmmZxOv YJMfRLi5OWq8MYIudTdz LxPcMFV2OrK5PGD6 cMYncN0sqJjhhforvJ0u Oyc+TUFMRTwvdGQ+PHRk TKY0rRmxNOnuPINdmR4p NHGlO0u4UuHyWxR3 UIxqZ5YjMMQlqrbtKr93 yS9lLxHhSqQ4THbkH2Yb boP7GIIkgSQbZAzvULX9 S45jw4L7KDRxQMZl CSJ7gBF7yA1olCbgwduy bGVmdDsgdmVydGljYWwt MWwuU484NNEruTzuNtBx qNWBpSCbJEK1UO01 CN67N9PnNlbchRYchSA+ PHRhYmxlIHdpZHRoPScx DCKxRpWntFqoYP9vXv3u ZGVyLWNvbGxhcHNl GyLuk4jtPEHjQXjcHC1t zBkyN5NonCE6SSEwb2d7 Kt24T37zL3IpgRR+PGNv dQK7iRQ6kO1eRrRk BeI7TCjlN911IdRgsHQt Ddsmo4don5pklAz7TvOl XXLvjzLepKnmNWT3m9Io Ke88D65zSWjvNKHn NRHvYHYrZTPsnBlgtl9p qA9wAn7+RFTmeAN2yWA7 fN5gRkVuOuA9PGeiI443 PqKqvGFjKrktY60f P4XzjTK+XDOcMof2UGFj zSciNK6agTSmAVvvXe9s XMK8ZeNhOgOnRObsP0Hl ZGRpbmctcmlnaHQ6 TQOwXAHaaL66Rt3nfKnp Vr8wTWYtJJG9POConCAy E8CjuD3lZcTsXEOiDJWq Y6LnyPDbMKuoA615 FWqyBxP0INAynmKcC9Lp WQXycIbyKmD0y0E5Hz6P eVeflWAgME3aSrObIHs8 N5MrUoo4IIRoaYyn EH8ggIPzFXvwRm0wrXsp zCsjMJ0mPKNniafdu789 FyMir1llZKMmlFJdFKyy MQR5Y96bq9H9XVZl TSFuRMV8iBX7rH0neWmw bjogbGVmdDsgdmVydGlj UJqtFNanF052NNNlwHbg AyPMDuf5Y9UlYrw9 PCIjnTwqTR4eaBSkBIxf Qu7ssLsafKiiTX3rATCu jymwu701XsKaa1bvFWKn cBUgSOpoXZM6H47g h3F7EHBjIMBhMKW5zCP6 kM2kdFvjvxamzFTxkIst xaAdnNhnVCcmDBwdM170 RFKkhUilPi5TSbv2 K1FwIqn0VATioImnND7r xENtFYryCc6twNclmFwy MX5tEXLluhajv094RmEc g9lqZJUhzHFkTAvi YOY2O79sw6M4EHAdTGAw AVB9hPN3oX0meLhsajey bGVmdDsgdmVydGljYWwt VOzkW793QBAjxTxo PlBheWVyOjwvdGQ+PC90 yc45H3TsVxfnJve7IAYo RWN8jSP0dG0xWGPuLGbq x9Y5xBH1E1CrsrMo ci1 (more content not included)... [facility]19 [facility] Case Information Case Priority: None Programs: -- Referral Source: Service Dog Trainer Referral Reason: Care coordination Case Type: Transition Care Management Risk Score: -- Case Status: Enrolled (December 17, 2022) Date Assigned: December 17, 2022 Assigned By: Sandra Nieves RN Date Enrolled: December 17, 2022 Assigned Primary Personnel: Sandra Nieves RN Assigned Secondary Personnel: Darcie Hernández RN Case Physician: Leidy Simms Problems Ongoing Acute cerebrovascular accident (CVA) AF (atrial fibrillation) Anemia Contusion of lung Dyshidrotic eczema Dysrhythmias Hemoperitoneum HTN (hypertension) Hyperlipidemia Historical No qualifying data Procedure/Surgical History Carpal tunnel release (12/10/2022), Cardiac pacemaker (09/2021), Colonoscopy (02/2011), Transurethral resection of prostate (TURP) syndrome (1995), Hernia (1993), Tonsillectomy with adenoidectomy. Home Medications amLODIPine 5 mg Tab, 5 mg= 1 tab(s), Oral, Daily furosemide 40 mg Tab, 40 mg= 1 tab(s), Oral, Daily lisinopril 20 mg Tab, 20 mg= 1 tab(s), Oral, Daily Osteo Bi-Flex Edge [employer] with Ascorbic Acid and Minerals oral tablet warfarin 5 mg Tab, 5 mg= 1 tab(s), Oral, Daily Allergies No Known Medication Allergies Social History Alcohol - Low Risk, 12/11/2022 Current, Liquor, 3-5 times per week, Household alcohol concerns: No., 12/11/2022 Substance Abuse - Denies Substance Abuse, 12/11/2022 Household substance abuse concerns: No., 12/11/2022 Tobacco - Denies Tobacco Use, 12/11/2022 Never (less than 100 in lifetime) Tobacco Use:. Never Smokeless Tobacco Use:., 12/11/2022 Family History Diabetes mellitus type 1: Grandparent. Primary malignant neoplasm of colon: Father and Brother. Screenings and Assessments 12/17/22 11:54:00 Result Name Value Comment Phone Call Monitoring Consent Agreed to continue call Phone Verification Patient Information Full name, street address and date of verified CM Program Enrollment Provides verbal consent for enrollment Goals and Interventions Care Plan Progress Note Admit Date: 12/12/2022 Date of Discharge: 12/14/2022 Follow-up appointment scheduled? Yes. Lisbet Rey on 12/21/2022 at 1:00 PM Did you understand your discharge instructions? Yes Are you able to follow them? Yes Did you receive new medications? Yes. Omeprazole 40mg BID Have you filled the Rx's? Yes Are you taking them as prescribed? Yes Are you having difficulty eating or swallowing your pills? No Are you having any stomach upset, diarrhea or constipation? No How are you sleeping? Fine Are you having any pain? No Do you have everything you need at home to care for yourself? Yes Do you have Home Health? Yes Called for initial call for the Transitional Care Management Program. Reviewed discharge instructions and diagnosis of acute GI bleed, gastric ulcer, iron deficiency anemia due to acute blood loss, hyperkalemia and HERMILO. Reviewed the purpose and side effects of omeprazole. Medications will be reconciled at OV. Patient stated he was told to discontinue medications that were not listed to discontinue on discharge list. Patient states he is doing well. No abdominal pain, nausea or vomiting noted. Patient denies any lightheaded/dizzines s. Patient is eating and drinking well. No blood noted in stool. No changes in sleeping pattern noted. Reviewed the following appointment with patient: with Lisbet Rey on 12/21/2022 at 1:00 PM. Patient denies any questions or concerns. Patient currently at back, CN unable to provide patient with contact number, but did advise patient to call office and ask to speak with transitional care manager if he had any questions or concerns. Communication Events Date: December 17, 2022 Method: Phone call Type: Outbound Duration (min): 5 Outcome: Case discussion Contact Type: Patient Contact Name: RY LERNER Notes: TCM #1-see summary note. Created By: Ezequiel PERSAUD, Sandra Medrano [facility] CBC AUTO DIFFon 12-14-2022 BASO # 0.0 103/ul Normal 0.0-0.1 [facility] Comment on above: Performed By: #### C BC #### [facility] [address] [place] [address] Dr. Rashmi Nolan Basophils/100 WBC (Bld) 0.6 % Normal 0.2-2.0 [facility] Comment on above: Performed By: #### C BC #### [facility] [address] [place] [address] Dr. Rashmi Nolan EO # 0.4 103/ul Normal 0.0-0.7 [facility] Comment on above: Performed By: #### C BC #### [facility] [address] [place] [address] Dr. Rashmi Nolan Eosinophils/100 WBC (Bld) 11.9 % Critically high 0.9-7.0 [facility] Comment on above: Performed By: #### C BC #### [facility] [address] [place] [address] Dr. Rashmi Nolan Erythrocyte distribution width (RBC) [Ratio] 15.2 % Critically high 11.0-15.0 [facility] Comment on above: Performed By: #### C BC #### [facility] [address] [place] [address] Dr. Rashmi Nolan Hematocrit (Bld) [Volume fraction] 26.3 % Critically low 42.0-54.0 [facility] Comment on above: Performed By: #### C BC #### [facility] [address] [place] [address] Dr. Rashmi Nolan Hemoglobin (Bld) [Mass/Vol] 8.9 g/dL Critically low 14.0-18.0 [facility] Comment on above: Performed By: #### C BC #### [facility] [address] [place] [address] Dr. Rashmi Nolan IG # 0.01 10e3/ul Normal 0.00-0.03 [facility] Comment on above: Performed By: #### C BC #### [facility] [address] [place] [address] Dr. Rashmi Nolan IG % 0.3 % Normal 0.0-0.5 [facility] Comment on above: Performed By: #### C BC #### [facility] [address] [place] [address] Dr. Rashmi Nolan LYMPH # 0.8 103/ul Critically low 1.2-3.8 [facility] Comment on above: Performed By: #### C BC #### [facility] [address] [place] [address] Dr. Rashmi Nolan Lymphocytes/100 WBC (Bld) 25.1 % Normal 20.5-60.0 [facility] Comment on above: Performed By: #### C BC #### [facility] [address] [place] [address] Dr. Rashmi Nolan MANUAL DIFF REQ NO Normal [facility] Comment on above: Performed By: #### C BC #### [facility] [address] [place] [address] Dr. Rashmi Nolan MCH (RBC) [Entitic mass] 33.0 pg Normal 25.9-34.0 [facility] Comment on above: Performed By: #### C BC #### [facility] [address] [place] [address] Dr. Rashmi Nolan MCHC (RBC) [Mass/Vol] 33.8 g/dL Normal 29.9-35.2 [facility] Comment on above: Performed By: #### C BC #### [facility] [address] [address] [address] Rashmi Nolan MCV (RBC) [Entitic vol] 97.4 fL Critically high 80.0-94.0 [facility] Comment on above: Performed By: #### C BC #### [facility] [address] [address] [address] Rashmi Nolan MONO # 0.3 103/ul Normal 0.3-0.8 [facility] Comment on above: Performed By: #### C BC #### [facility] [address] [address] [address] Rashmi Nolan Monocytes/100 WBC (Bld) 9.0 % Normal 1.7-12.0 [facility] Comment on above: Performed By: #### C BC #### [facility] [address] [place] [address] Dr. Rashmi Nolan NEUT # 1.7 103/ul Normal 1.4-6.5 [facility] Comment on above: Performed By: #### C BC #### [facility] [address] [place] [address] Dr. Rashmi Nolan Neutrophils/100 WBC (Bld) 53.1 % Normal 43.0-75.0 [facility] Comment on above: Performed By: #### C BC #### [facility] [address] [address] [address] Rashmi Nolan Platelet mean volume (Bld) [Entitic vol] 10.2 fL Normal 9.5-13.5 [facility] Comment on above: Performed By: #### C BC #### [facility] [address] [address] [address] Rashmi Nolan PLT 139 103/ul Critically low 150-450 [facility] Comment on above: Performed By: #### C BC #### [facility] [address] [address] [address] Rashmi Nolan RBC 2.70 106/ul Critically low 4.70-6.10 [facility] Comment on above: Performed By: #### C BC #### [facility] [address] [place], [place] [address] Dr. Rashmi Nolan WBC 3.1 103/ul Critically low 4.0-11.0 [facility] Comment on above: Performed By: #### C BC #### [facility] [address] [address] [address] Rashmi Nolan MAGR Intraoperative Recordon 12-14-2022 MAGR Intraoperative Record MAGR Intra-Op Record Summary Primary Physician: Ward Martinez DO Finalized Date/Time: 12/14/22 09:30:19 Pt. Name: RY LERNER/Sex: 1935 MALE Med Rec #: [id number] Physician: Ward Martinez DO Financial #: [id number] Pt. Type: D Room/Bed: / Admit/Disch: 12/10/22 13:13:28 - 12/10/22 15:38:00 Institution: Case Times MAGR Entry 1 Patient In Room Time 12/10/22 14:54:00 Out Room Time 12/10/22 15:30:00 Anesthesia Start Time 12/10/22 15:09:00 Stop Time 12/10/22 15:28:00 Surgery Start Time 12/10/22 15:09:00 Stop Time 12/10/22 15:28:00 Last Modified By: Maile Palmer RN 12/10/22 15:29:29 Case Attendance MAGR Entry 1 Entry 2 Entry 3 Case Attendee Ward Martinez Barbara RN Kokinda, Diane RN Andrew DO Role Performed Surgeon - Primary Quality Control Supervisor Quality Control Supervisor Time In 12/10/22 15:05:00 12/10/22 14:54:00 12/10/22 14:54:00 Time Out 12/10/22 15:30:00 12/10/22 15:30:00 12/10/22 15:30:00 Procedure Carpal Tunnel Carpal Tunnel Carpal Tunnel Release(Left) Release(Left) Release(Left) Last Modified By: Maile Palmer RN, Barbara RN Long, Barbara RN 12/10/22 15:29:30 12/10/22 15:29:30 12/10/22 15:29:30 Entry 4 Entry 5 Case Attendee Macie Licea CST, CST, Brandi Role Performed Healthcare Consulting Manager Scrub Personnel Time In 12/10/22 14:54:00 12/10/22 14:54:00 Time Out 12/10/22 15:30:00 12/10/22 15:30:00 Procedure Carpal Tunnel Carpal Tunnel Release(Left) Release(Left) Last Modified By: Maile Palmer RN, Barbara RN 12/10/22 15:29:30 12/10/22 15:29:30 Surgical Procedures MAGR Pre-Care Text: A.20 Verifies operative procedure, surgical site, and laterality Im.150 Develops individualized plan of care Entry 1 Procedure Carpal Tunnel Release Primary Procedure Yes Primary Surgeon Ward Martinez DO Surgeon Comment LEFT CARPAL TUNNEL Start 12/10/22 15:09:00 RELEASE Stop 12/10/22 15:28:00 Anesthesia Type Local Surgical Service Orthopedics Wound Class Clean Technique Details Closure Technique Primary Entire procedure No was performed via laparoscope or robotic assistance Last Modified By: Maile Palmer RN 12/10/22 15:29:55 Post-Care Text: O.730 The patient's care is consistent with the individualized perioperative plan of care General Case Data MAGR Pre-Care Text: A.350.1 Classifies surgical wound Entry 1 Case Information OR MAGR OR 01 Case Level Level 2 Wound Class Clean Specialty Orthopedics ASA Class N/A Diagnosis Preop Diagnosis LEFT CARPAL TUNNEL Postop Same As Preop Yes SYNDROME Postop Diagnosis LEFT CARPAL TUNNEL SYNDROME Blunt or No Is the procedure No penetrating injury considered occured prior to Emergent/Urgent? the start of the procedure: Last Modified By: Maile Palmer RN 12/14/22 09:30:17 Post-Care Text: O.760 Patient receives consistent and comparable care regardless of the setting Time Out MAGR Entry 1 Time out date/time 12/10/22 15:08:00 All team members Yes have introduced themselves by name and role Surgeon, Yes Surgeon reviews Yes anesthesia, nurse critical or confirm patient, unexpected steps, site, procedure operative duration, anticipated blood loss Anesthesia team No Nursing team Yes reviews any reviews sterility patient-specific (including concerns indicator results) and equipment issues/concerns Antibiotic Last Modified By: Maile Palmer RN 12/10/22 15:09:29 Patient Positioning MAGR Pre-Care Text: A.280 Identifies baseline musculoskeletal status Im.40 Positions the patient Im.80 Applies safety devices Entry 1 Procedure Carpal Tunnel Body Position Supine Release(Left) Left Arm Position Extended on padded arm Right Arm Position Resting at Side board Left Leg Position Extended Right Leg Position Extended Feet Uncrossed? Yes Press Points Checked Yes Positioning Device Arm Boards, Arm Strap, Outcome Met (O.80) Yes Pillow, Safety Strap Last Modified By: Chelita Borjas RN 12/10/22 13:58:17 Post-Care Text: E.290 Evaluates musculoskeletal status O.80 Patient is free from signs and symptoms of injury related to positioning Skin Prep MAGR Pre-Care Text: A.30 Verifies allergies Im.270 Performs skin preparation Im.270.1 Implements protective measures to prevent skin and tissue injury due to chemical sources Entry 1 Skin Prep Syntegrity Prep Agents (Im.270) 7.5% Povidone-Iodine Prep By Maile Palmer RN Scrub 10% Povidone-Iodine Granger Prep Area (Im.270) Arm lower Prep Area Details Left Skin Prep Agent Dry Yes Without Pooling Hair Removal Syntegrity Hair Removal Methods No hair removal performed Outcome Met (O.100) Yes Last Modified By: Maile Palmer RN 12/10/22 15:10:35 Post-Care Text: E.10 Evaluates for signs and symptoms of physical injury to skin and tissue O.100 Patient is free from signs and symptoms of chemical injury Counts (more content not included)... Normal [facility] Outside Colonoscopyon 2022 Outside Colonoscopy [id number] #1.00CD:127 Normal [facility] Outside [facility] Correspo ndenceon 12-14-2022 Outside [facility] Correspondence . [id number] #1.00CD:127 [facility] Outside [facility] Correspondence [id number] #1.00CD:127 [facility] Outside [facility] Correspondence 104. [id number] #1.00CD:127 Normal [facility] Outside Hospital Correspondence 104. [id number] #1.00CD:127 Normal [facility] Outside Hospital Correspondence [id number]. [id number] #1.00CD:127 Normal [facility] PROF CHEM 8 (BAS METB)on Anion gap [Moles/Vol] 12.6 mmol/L Normal [facility] Comment on above: Performed By: #### B MP #### [facility] [address] [address] [address] Rashmi Nolan Calcium [Mass/Vol] 9.7 mg/dL Normal 8.5-10.1 [facility] Comment on above: Performed By: #### B MP #### [facility] [address] [address] [address] Rsahmi Nolan Chloride [Moles/Vol] 108 mmol/L Critically high 98-107 [facility] Comment on above: Performed By: #### B MP #### [facility] [address] [address] [address] Rashmi Nolan CO2 [Moles/Vol] 24.5 mmol/L Normal 21.0-32.0 [facility] Comment on above: Performed By: #### B MP #### [facility] [address] [address] [address] Rashmi Nolan Creatinine [Mass/Vol] 1.68 mg/dL Critically high 0.70-1.30 [facility] Comment on above: Performed By: #### B MP #### [facility] [address] [address] [address] Rashmi Nolan EGFR-AF ANGOLAN 47 mL/min/1.73m2 Critically low >=60 [facility] Comment on above: Performed By: #### B MP #### [facility] [address] [address] [address] Rashmi Nolan EGFR-NON AF ANGOLAN 39 mL/min/1.73m2 Critically low >=60 [facility] Comment on above: Performed By: #### B MP #### [facility] [address] [address] [address] Rashmi Nolan Glucose [Mass/Vol] 91 mg/dL Normal 74-106 [facility] Comment on above: Performed By: #### B MP #### [facility] [address] [address] [address] Rashmi Nolan Potassium [Moles/Vol] 5.1 mmol/L Normal 3.5-5.1 [facility] Comment on above: Performed By: #### B MP #### [facility] [address] [address] [address] Rashmi Nolan Sodium [Moles/Vol] 140 mmol/L Normal 136-145 [facility] Comment on above: Performed By: #### B MP #### [facility] [address] [address] [address] Rashmi Nolan Urea nitrogen [Mass/Vol] 27.0 mg/dL Critically high 7.0-18.0 [facility] Comment on above: Performed By: #### B MP #### [facility] [address] [address] [address] Rashmi Nolan Urea nitrogen/Creatinine [Mass ratio] 16.1 mg/mg Normal [facility] Comment on above: Performed By: #### B MP #### [facility] [address] [address] [address] Rashmi Nolan Transfer Inon 12-14-2022 Transfer In [id number] #1.00CD:127 Normal [facility] CBC AUTO DIFFon 12-13-2022 BASO # 0.0 103/ul Normal 0.0-0.1 [facility] Comment on above: Performed By: #### C BC #### [facility] [address] [address] [address] Rashmi Nolan Basophils/100 WBC (Bld) 0.6 % Normal 0.2-2.0 [facility] Comment on above: Performed By: #### C BC #### [facility] [address] [place] [address] Dr. Rashmi Nolan EO # 0.4 103/ul Normal 0.0-0.7 [facility] Comment on above: Performed By: #### C BC #### [facility] [address] [place] [address] Dr. Rashmi Nolan Eosinophils/100 WBC (Bld) 10.3 % Critically high 0.9-7.0 [facility] Comment on above: Performed By: #### C BC #### [facility] [address] [place] [address] Dr. Rashmi Nolan Erythrocyte distribution width (RBC) [Ratio] 15.8 % Critically high 11.0-15.0 [facility] Comment on above: Performed By: #### C BC #### [facility] [address] [place] [address] Dr. Rashmi Nolan Hematocrit (Bld) [Volume fraction] 25.7 % Critically low 42.0-54.0 [facility] Comment on above: Performed By: #### C BC #### [facility] [address] [place] [address] Dr. Rashmi Nolan Hemoglobin (Bld) [Mass/Vol] 8.5 g/dL Critically low 14.0-18.0 [facility] Comment on above: Performed By: #### C BC #### [facility] [address] [place] [address] Dr. Rashmi Nolan IG # 0.00 10e3/ul Normal 0.00-0.03 [facility] Comment on above: Performed By: #### C BC #### [facility] [address] [place] [address] Dr. Rashmi Nolan IG % 0.0 % Normal 0.0-0.5 [facility] Comment on above: Performed By: #### C BC #### [facility] [address] [place] [address] Dr. Rashmi Nolan LYMPH # 0.8 103/ul Critically low 1.2-3.8 [facility] Comment on above: Performed By: #### C BC #### [facility] [address] [address] [address] Rashmi Nolan Lymphocytes/100 WBC (Bld) 23.5 % Normal 20.5-60.0 [facility] Comment on above: Performed By: #### C BC #### [facility] [address] [address] [address] Rashmi Nolan MANUAL DIFF REQ NO Normal [facility] Comment on above: Performed By: #### C BC #### [facility] [address] [place] [address] Dr. Rashmi Nolan MCH (RBC) [Entitic mass] 32.9 pg Normal 25.9-34.0 [facility] Comment on above: Performed By: #### C BC #### [facility] [address] [place] [address] Dr. Rashmi Nolan MCHC (RBC) [Mass/Vol] 33.1 g/dL Normal 29.9-35.2 [facility] Comment on above: Performed By: #### C BC #### [facility] [address] [place] [address] Dr. Rashmi Nolan MCV (RBC) [Entitic vol] 99.6 fL Critically high 80.0-94.0 [facility] Comment on above: Performed By: #### C BC #### [facility] [facility] [address] [place] [address] Dr. Rashmi Nolan MONO # 0.3 103/ul Normal 0.3-0.8 [facility] Comment on above: Performed By: #### C BC #### [facility] [address] [place] [address] Dr. Rashmi Nolan Monocytes/100 WBC (Bld) 8.9 % Normal 1.7-12.0 [facility] Comment on above: Performed By: #### C BC #### [facility] [address] [place] [address] Dr. Rashmi Nolan NEUT # 2.0 103/ul Normal 1.4-6.5 [facility] Comment on above: Performed By: #### C BC #### [facility] [address] [address] [address] Rashmi Nolan Neutrophils/100 WBC (Bld) 56.7 % Normal 43.0-75.0 [facility] Comment on above: Performed By: #### C BC #### [facility] [address] [address] [address] Rashmi Nolan Platelet mean volume (Bld) [Entitic vol] 10.5 fL Normal 9.5-13.5 [facility] Comment on above: Performed By: #### C BC #### [facility] [address] [address] [address] Rashmi Nolan PLT 134 103/ul Critically low 150-450 [facility] Comment on above: Performed By: #### C BC #### [facility] [address] [address] [address] Rashmi Nolan RBC 2.58 106/ul Critically low 4.70-6.10 [facility] Comment on above: Performed By: #### C BC #### [facility] [address] [address] [address] Rashmi Nolan WBC 3.6 103/ul Critically low 4.0-11.0 [facility] Comment on above: Performed By: #### C BC #### [facility] [address] [address] [address] Rashmi Nolan PROF CHEM 8 (BAS METB)on Anion gap [Moles/Vol] 11.7 mmol/L Normal [facility] Comment on above: Performed By: #### C BC #### [facility] [address] [address] [address] Rashmi Nolan Calcium [Mass/Vol] 9.5 mg/dL Normal 8.5-10.1 [facility] Comment on above: Performed By: #### C BC #### [facility] [address] [address] [address] Rashmi Nolan Chloride [Moles/Vol] 110 mmol/L Critically high 98-107 [facility] Comment on above: Performed By: #### C BC #### [facility] [address] [address] [address] Rashmi Nolan CO2 [Moles/Vol] 25.1 mmol/L Normal 21.0-32.0 [facility] Comment on above: Performed By: #### C BC #### [facility] [address] [address] [address] Rashmi Nolan Creatinine [Mass/Vol] 1.69 mg/dL Critically high 0.70-1.30 [facility] Comment on above: Performed By: #### C BC #### [facility] [address] [address] [address] Rashmi Nolan EGFR-AF ANGOLAN 47 mL/min/1.73m2 Critically low >=60 [facility] Comment on above: Performed By: #### C BC #### [facility] [address] [address] [address] Rashmi Nolan EGFR-NON AF ANGOLAN 38 mL/min/1.73m2 Critically low >=60 [facility] Comment on above: Performed By: #### C BC #### [facility] [address] [address] [address] Rashmi Nolan Glucose [Mass/Vol] 93 mg/dL Normal 74-106 [facility] Comment on above: Performed By: #### C BC #### [facility] [address] [address] [address] Rashmi Nolan Potassium [Moles/Vol] 5.8 mmol/L Critically high 3.5-5.1 [facility] Comment on above: Performed By: #### C BC #### [facility] [address] [address] [address] Rashmi Nolan Sodium [Moles/Vol] 141 mmol/L Normal 136-145 [facility] Comment on above: Performed By: #### C BC #### [facility] [address] [address] [address] Rashmi Nolan Urea nitrogen [Mass/Vol] 35.0 mg/dL Critically high 7.0-18.0 [facility] Comment on above: Performed By: #### C BC #### [facility] [address] [place] [address] Dr. Rashmi Nolan Urea nitrogen/Creatinine [Mass ratio] 20.7 mg/mg Normal [facility] Comment on above: Performed By: #### C BC #### [facility] [address] [place] [address] Dr. Rashmi Nolan ABO RH RETYPEon 12-12-2022 ABO and Rh group Nom (Bld) DONE Normal [facility] Comment on above: Performed By: #### C BC #### [facility] [address] [place] [address] Dr. Rashmi Nolan Auth for Release of Medical Recordson 12-12-2022 Auth for Release of Medical Records [id number] #[id number] Normal [facility] CBC AUTO DIFFon 12-12-2022 BASO # 0.0 103/ul Normal 0.0-0.1 [facility] Comment on above: Performed By: #### C BC #### [facility] [address] [place] [address] Dr. Rashmi Nolan Basophils/100 WBC (Bld) 0.6 % Normal 0.2-2.0 [facility] Comment on above: Performed By: #### C BC #### [facility] [address] [place] [address] Dr. Rashmi Nolan EO # 0.3 103/ul Normal 0.0-0.7 [facility] Comment on above: Performed By: #### C BC #### [facility] [address] [place] [address] Dr. Rashmi Nolan Eosinophils/100 WBC (Bld) 7.6 % Critically high 0.9-7.0 [facility] Comment on above: Performed By: #### C BC #### [facility] [address] [place] [address] Dr. Rashmi Nolan Erythrocyte distribution width (RBC) [Ratio] 16.4 % Critically high 11.0-15.0 [facility] Comment on above: Performed By: #### C BC #### [facility] [address] [place] [address] Dr. Rashmi Nolan Hematocrit (Bld) [Volume fraction] 27.2 % Critically low 42.0-54.0 [facility] Comment on above: Performed By: #### C BC #### [facility] [address] [place] [address] Dr. Rashmi Nolan Hemoglobin (Bld) [Mass/Vol] 9.1 g/dL Critically low 14.0-18.0 [facility] Comment on above: Performed By: #### C BC #### [facility] [address] [place] [address] Dr. Rashmi Nolan IG # 0.01 10e3/ul Normal 0.00-0.03 [facility] Comment on above: Performed By: #### C BC #### [facility] [address] [place] [address] Dr. Rashmi Nolan IG % 0.3 % Normal 0.0-0.5 [facility] Comment on above: Performed By: #### C BC #### [facility] [address] [place] [address] Dr. Rashmi Nolan LYMPH # 0.9 103/ul Critically low 1.2-3.8 [facility] Comment on above: Performed By: #### C BC #### [facility] [address] [place] [address] Dr. Rashmi Nolan Lymphocytes/100 WBC (Bld) 25.3 % Normal 20.5-60.0 [facility] Comment on above: Performed By: #### C BC #### [facility] [address] [place] [address] Dr. Rashmi Nolan MANUAL DIFF REQ NO Normal [facility] Comment on above: Performed By: #### C BC #### [facility] [address] [place] [address] Dr. Rashmi Nolan MCH (RBC) [Entitic mass] 33.0 pg Normal 25.9-34.0 [facility] Comment on above: Performed By: #### C BC #### [facility] [address] [place] [address] Dr. Rashmi Nolan MCHC (RBC) [Mass/Vol] 33.5 g/dL Normal 29.9-35.2 [facility] Comment on above: Performed By: #### C BC #### [facility] [address] [place] [address] Dr. Rashmi Nolan MCV (RBC) [Entitic vol] 98.6 fL Critically high 80.0-94.0 [facility] Comment on above: Performed By: #### C BC #### [facility] [address] [place] [address] Dr. Rashmi Nolan MONO # 0.3 103/ul Normal 0.3-0.8 [facility] Comment on above: Performed By: #### C BC #### [facility] [address] [place] [address] Dr. Rashmi Nolan Monocytes/100 WBC (Bld) 8.1 % Normal 1.7-12.0 [facility] Comment on above: Performed By: #### C BC #### [facility] [address] [place] [address] Dr. Rashmi Nolan NEUT # 2.0 103/ul Normal 1.4-6.5 [facility] Comment on above: Performed By: #### C BC #### [facility] [address] [place] [address] Dr. Rashmi Nolan Neutrophils/100 WBC (Bld) 58.1 % Normal 43.0-75.0 [facility] Comment on above: Performed By: #### C BC #### [facility] [address] [place] [address] Dr. Rashmi Nolan Platelet mean volume (Bld) [Entitic vol] 10.0 fL Normal 9.5-13.5 [facility] Comment on above: Performed By: #### C BC #### [facility] [address] [place] [address] Dr. Rashmi Nolan PLT 147 103/ul Critically low 150-450 [facility] Comment on above: Performed By: #### C BC #### [facility] [address] [place] [address] Dr. Rashmi Nolan RBC 2.76 106/ul Critically low 4.70-6.10 [facility] Comment on above: Performed By: #### C BC #### [facility] [address] [place] [address] Dr. Rashmi Nolan WBC 3.4 103/ul Critically low 4.0-11.0 [facility] Comment on above: Performed By: #### C BC #### [facility] [address] [place] [address] Dr. Rashmi Nolan BASO # 0.0 103/ul Normal 0.0-0.1 [facility] Comment on above: Performed By: #### C BC #### [facility] [address] [place] [address] Dr. Rashmi Nolan Basophils/100 WBC (Bld) 0.6 % Normal 0.2-2.0 [facility] Comment on above: Performed By: #### C BC #### [facility] [address] [place] [address] Dr. Rashmi Nolan EO # 0.2 103/ul Normal 0.0-0.7 [facility] Comment on above: Performed By: #### C BC #### [facility] [address] [place] [address] Dr. Rashmi Nolan Eosinophils/100 WBC (Bld) 6.6 % Normal 0.9-7.0 [facility] Comment on above: Performed By: #### C BC #### [facility] [address] [place] [address] Dr. Rashmi Nolan Erythrocyte distribution width (RBC) [Ratio] 16.4 % Critically high 11.0-15.0 [facility] Comment on above: Performed By: #### C BC #### [facility] [address] [place] [address] Dr. Rashmi Nolan Hematocrit (Bld) [Volume fraction] 26.1 % Critically low 42.0-54.0 [facility] Comment on above: Performed By: #### C BC #### [facility] [address] [place] [address] Dr. Rashmi Nolan Hemoglobin (Bld) [Mass/Vol] 8.5 g/dL Critically low 14.0-18.0 [facility] Comment on above: Result Comment: rcvd . blood Performed By: #### C BC #### [facility] [address] [place] [address] Dr. Rashmi Nolan IG # 0.01 10e3/ul Normal 0.00-0.03 [facility] Comment on above: Performed By: #### C BC #### [facility] [address] [place] [address] Dr. Rashmi Nolan IG % 0.3 % Normal 0.0-0.5 [facility] Comment on above: Performed By: #### C BC #### [facility] [address] [place] [address] Dr. Rashmi Nolan LYMPH # 0.7 103/ul Critically low 1.2-3.8 [facility] Comment on above: Performed By: #### C BC #### [facility] [address] [place] [address] Dr. Rashmi Nolan Lymphocytes/100 WBC (Bld) 20.2 % Critically low 20.5-60.0 [facility] Comment on above: Performed By: #### C BC #### [facility] [address] [place] [address] Dr. Rashmi Nolan MANUAL DIFF REQ NO Normal [facility] Comment on above: Performed By: #### C BC #### [facility] [address] [place] [address] Dr. Rashmi Nolan MCH (RBC) [Entitic mass] 32.7 pg Normal 25.9-34.0 [facility] Comment on above: Performed By: #### C BC #### [facility] [address] [place] [address] Dr. Rashmi Nolan MCHC (RBC) [Mass/Vol] 32.6 g/dL Normal 29.9-35.2 [facility] Comment on above: Performed By: #### C BC #### [facility] [address] [place] [address] Dr. Rashmi Nolan MCV (RBC) [Entitic vol] 100.4 fL Critically high 80.0-94.0 [facility] Comment on above: Performed By: #### C BC #### [facility] [address] [place] [address] Dr. Rashmi Nolan MONO # 0.3 103/ul Normal 0.3-0.8 [facility] Comment on above: Performed By: #### C BC #### [facility] [address] [place] [address] Dr. Rashmi Nolan Monocytes/100 WBC (Bld) 7.7 % Normal 1.7-12.0 [facility] Comment on above: Performed By: #### C BC #### [facility] [address] [place] [address] Dr. Rashmi Nolan NEUT # 2.3 103/ul Normal 1.4-6.5 [facility] Comment on above: Performed By: #### C BC #### [facility] [address] [place] [address] Dr. Rashmi Nolan Neutrophils/100 WBC (Bld) 64.6 % Normal 43.0-75.0 [facility] Comment on above: Performed By: #### C BC #### [facility] [address] [place] [address] Dr. Rashmi Nolan Platelet mean volume (Bld) [Entitic vol] 9.9 fL Normal 9.5-13.5 [facility] Comment on above: Performed By: #### C BC #### [facility] [address] [place] [address] Dr. Rashmi Nolan PLT 130 103/ul Critically low 150-450 [facility] Comment on above: Performed By: #### C BC #### [facility] [address] [place] [address] Dr. Rashmi Nolan RBC 2.60 106/ul Critically low 4.70-6.10 [facility] Comment on above: Performed By: #### C BC #### [facility] [address] [place] [address] Dr. Rashmi Nolan WBC 3.6 103/ul Critically low 4.0-11.0 [facility] Comment on above: Performed By: #### C BC #### [facility] [address] [address] [address] Rashmi Nolan PRBC LEUKOREDUCEDon 12-13-19 ABO and Rh group Nom (Bld) Cross Match Result Compatible Unit Blood Type O Pos Unit Number [id number] Status Information Issued Product ID Red Blood Cells Product Code [id number] Issue Date/Time [id number] Cross Match Result Compatible Unit Blood Type O Pos Unit Number [id number] Status Information Issued Product ID Red Blood Cells Product Code [id number] Issue Date/Time [id number] Normal [facility] Comment on above: Performed By: #### C BC #### [facility] [address] [place] [address] Dr. Rashmi Nolan PROF CHEM 8 (BAS METB)on Anion gap [Moles/Vol] 14.8 mmol/L Normal [facility] Comment on above: Performed By: #### B MP #### [facility] [address] [place] [address] Dr. Rashmi Nolan Calcium [Mass/Vol] 9.2 mg/dL Normal 8.5-10.1 [facility] Comment on above: Performed By: #### B MP #### [facility] [address] [place] [address] Dr. Rashmi Nolan Chloride [Moles/Vol] 110 mmol/L Critically high 98-107 [facility] Comment on above: Performed By: #### B MP #### [facility] [address] [place] [address] Dr. Rashmi Nolan CO2 [Moles/Vol] 23.5 mmol/L Normal 21.0-32.0 [facility] Comment on above: Performed By: #### B MP #### [facility] [address] [place] [address] Dr. Rashmi Nolan Creatinine [Mass/Vol] 1.77 mg/dL Critically high 0.70-1.30 [facility] Comment on above: Performed By: #### B MP #### [facility] [address] [address] [address] Rashmi Nolan EGFR-AF ANGOLAN 44 mL/min/1.73m2 Critically low >=60 [facility] Comment on above: Performed By: #### B MP #### [facility] [address] [address] [address] Rashmi Nolan EGFR-NON AF ANGOLAN 36 mL/min/1.73m2 Critically low >=60 [facility] Comment on above: Performed By: #### B MP #### [facility] [address] [address] [address] Rashmi Nolan Glucose [Mass/Vol] 103 mg/dL Normal 74-106 [facility] Comment on above: Performed By: #### B MP #### [facility] [address] [address] [address] Rashmi Nolan Potassium [Moles/Vol] 5.3 mmol/L Critically high 3.5-5.1 [facility] Comment on above: Performed By: #### B MP #### [facility] [address] [address] [address] Rashmi Nolan Sodium [Moles/Vol] 143 mmol/L Normal 136-145 [facility] Comment on above: Performed By: #### B MP #### [facility] [address] [address] [address] Rashmi Nolan Urea nitrogen [Mass/Vol] 54.0 mg/dL Critically high 7.0-18.0 [facility] Comment on above: Performed By: #### B MP #### [facility] [address] [address] [address] Rashmi Nolan Urea nitrogen/Creatinine [Mass ratio] 30.5 mg/mg Normal [facility] Comment on above: Performed By: #### B MP #### [facility] [address] [address] [address] Rashmi Nolan Auto Diffon 12-11-2022 Basophils/100 WBC (Bld) 0.5 % Normal 0.0-2.0 [facility] Comment on above: Order Comment: Order Added by Discern Expert. Performed By: #### 2 [id number] #### [facility] [address] [place] [id number] Basophils/Leukocytes Auto (Bld) [Pure # fraction] 0.0 E9/L Normal 0.0-0.2 [facility] Comment on above: Order Comment: Order Added by Discern Expert. Performed By: #### 2 [id number] #### [facility] [address] [place] [id number] Eosinophils/100 WBC (Bld) 3.4 % Normal 0.0-8.0 [facility] Comment on above: Order Comment: Order Added by Discern Expert. Performed By: #### 2 [id number] #### [facility] [address] [place] [address] Eosinophils/Leukocyte s Auto (Bld) [Pure # fraction] 0.2 E9/L Normal 0.0-0.5 [facility] Comment on above: Order Comment: Order Added by Discern Expert. Performed By: #### 2 [id number] #### [facility] [address] [place] [id number] Lymphocytes/100 WBC (Bld) 17.1 % Normal 14.0-50.0 [facility] Comment on above: Order Comment: Order Added by Discern Expert. Performed By: #### 2 [id number] #### [facility] [address] [place] [address] Lymphocytes/Leukocyte s Auto (Bld) [Pure # fraction] 0.9 E9/L Low 1.0-4.0 [facility] Comment on above: Order Comment: Order Added by Discern Expert. Performed By: #### 2 [id number] #### [facility] [address] [place] [address] Monocytes/100 WBC (Bld) 6.1 % Normal 4.0-14.0 [facility] Comment on above: Order Comment: Order Added by Discern Expert. Performed By: #### 2 [id number] #### [facility] [address] [place] [address] Monocytes/Leukocytes Auto (Bld) [Pure # fraction] 0.3 E9/L Normal 0.2-1.0 [facility] Comment on above: Order Comment: Order Added by Discern Expert. Performed By: #### 2 [id number] #### [facility] [address] [place] [address] Neutrophils/100 WBC (Bld) 72.9 % Normal 36.0-75.0 [facility] Comment on above: Order Comment: Order Added by Discern Expert. Performed By: #### 2 [id number] #### [facility] [address] [place] [address] Neutrophils/Leukocyte s Auto (Bld) [Pure # fraction] 3.8 E9/L Normal 2.0-7.5 [facility] Comment on above: Order Comment: Order Added by Discern Expert. Performed By: #### 2 [id number] #### [facility] [address] [place] [address] CBC AUTO DIFFon 12-11-2022 BASO # 0.0 103/ul Normal 0.0-0.1 [facility] Comment on above: Performed By: #### C BC #### [facility] [address] [place] [address] Dr. Rashmi Nolan Basophils/100 WBC (Bld) 0.4 % Normal 0.2-2.0 [facility] Comment on above: Performed By: #### C BC #### [facility] [address] [place] [address] Dr. Rashmi Nolan EO # 0.2 103/ul Normal 0.0-0.7 [facility] Comment on above: Performed By: #### C BC #### [facility] [address] [place] [address] Dr. Rashmi Nolan Eosinophils/100 WBC (Bld) 5.2 % Normal 0.9-7.0 [facility] Comment on above: Performed By: #### C BC #### [facility] [address] [place] [address] Dr. Rashmi Nolan Erythrocyte distribution width (RBC) [Ratio] 14.6 % Normal 11.0-15.0 [facility] Comment on above: Performed By: #### C BC #### [facility] [address] [address] [address] Rashmi Nolan Hematocrit (Bld) [Volume fraction] 23.7 % Critically low 42.0-54.0 [facility] Comment on above: Performed By: #### C BC #### [facility] [address] [address] [address] Rashmi Nolan Hemoglobin (Bld) [Mass/Vol] 7.8 g/dL Critically low 14.0-18.0 [facility] Comment on above: Performed By: #### C BC #### [facility] [address] [place] [address] Dr. Rashmi Nolan IG # 0.01 10e3/ul Normal 0.00-0.03 [facility] Comment on above: Performed By: #### C BC #### [facility] [address] [place] [address] Dr. Rashmi Nolan IG % 0.2 % Normal 0.0-0.5 [facility] Comment on above: Performed By: #### C BC #### [facility] [address] [place] [address] Dr. Rashmi Nolan LYMPH # 0.9 103/ul Critically low 1.2-3.8 [facility] Comment on above: Performed By: #### C BC #### [facility] [address] [place] [address] Dr. Rashmi Nolan Lymphocytes/100 WBC (Bld) 19.6 % Critically low 20.5-60.0 [facility] Comment on above: Performed By: #### C BC #### [facility] [address] [place] [address] Dr. Rashmi Nolan MANUAL DIFF REQ NO Normal [facility] Comment on above: Performed By: #### C BC #### [facility] [address] [place] [address] Dr. Rashmi Nolan MCH (RBC) [Entitic mass] 34.7 pg Critically high 25.9-34.0 [facility] Comment on above: Performed By: #### C BC #### [facility] [address] [address] [address] Rashmi Nolan MCHC (RBC) [Mass/Vol] 32.9 g/dL Normal 29.9-35.2 [facility] Comment on above: Performed By: #### C BC #### [facility] [address] [address] [address] Rashmi Nolan MCV (RBC) [Entitic vol] 105.3 fL Critically high 80.0-94.0 [facility] Comment on above: Performed By: #### C BC #### [facility] [address] [address] [address] Rashmi Nolan MONO # 0.3 103/ul Normal 0.3-0.8 [facility] Comment on above: Performed By: #### C BC #### [facility] [address] [place] [address] Dr. Rashmi Nolan Monocytes/100 WBC (Bld) 7.2 % Normal 1.7-12.0 [facility] Comment on above: Performed By: #### C BC #### [facility] [address] [place] [address] Dr. Rashmi Nolan NEUT # 3.0 103/ul Normal 1.4-6.5 [facility] Comment on above: Performed By: #### C BC #### [facility] [address] [place] [address] Dr. Rashmi Nolan Neutrophils/100 WBC (Bld) 67.4 % Normal 43.0-75.0 [facility] Comment on above: Performed By: #### C BC #### [facility] [facility] [address] [place] [address] Dr. Rashmi Nolan Platelet mean volume (Bld) [Entitic vol] 9.8 fL Normal 9.5-13.5 [facility] Comment on above: Performed By: #### C BC #### [facility] [address] [place] [address] Dr. Rashmi Nolan PLT 156 103/ul Normal 150-450 [facility] Comment on above: Performed By: #### C BC #### [facility] [address] [place] [address] Dr. Rashmi Nolan RBC 2.25 106/ul Critically low 4.70-6.10 [facility] Comment on above: Performed By: #### C BC #### [facility] [address] [place], [place] [id number] Dr. Rashmi Nolan WBC 4.5 103/ul Normal 4.0-11.0 [facility] Comment on above: Performed By: #### C BC #### [facility] [address] [place] [address] Dr. Rashmi Nolan CBC w/ Auto Diffon 3 Erythrocyte distribution width (RBC) [Ratio] 14.9 % High 10.9-14.2 [facility] Comment on above: Performed By: #### 2 [id number] #### [facility] [address] [place] [address] Hematocrit (Bld) [Volume fraction] 24.1 % Low 37.7-49.0 [facility] Comment on above: Performed By: #### 2 [id number] #### [facility] [address] [place] [address] Hemoglobin (Bld) [Mass/Vol] 8.1 g/dL Low 13.5-17.5 [facility] Comment on above: Performed By: #### 2 [id number] #### [facility] [address] [place] [address] MCH (RBC) [Entitic mass] 34.0 pg Normal 27.0-34.0 [facility] Comment on above: Performed By: #### 2 [id number] #### [facility] [address] [place] [address] MCHC (RBC) [Mass/Vol] 33.6 g/dL Normal 31.4-36.0 [facility] Comment on above: Performed By: #### 2 [id number] #### [facility] [address] [place] [address] MCV (RBC) [Entitic vol] 101.1 fL High 80.0-100.0 [facility] Comment on above: Performed By: #### 2 [id number] #### [facility] [address] [place] [address] Platelet mean volume (Bld) [Entitic vol] 8.9 fL Normal 6.4-10.8 [facility] Comment on above: Performed By: #### 2 [id number] #### [facility] [address] [place] [address] Platelets (Bld) [#/Vol] 177.0 E9/L Normal 150.0-500.0 [facility] Comment on above: Performed By: #### 2 [id number] #### [facility] [address] [place] [address] RBC (Bld) [#/Vol] 2.4 E12/L Low 4.3-5.9 [facility] Comment on above: Performed By: #### 2 [id number] #### [facility] [address] [place] [address] WBC corrected for nucl RBC Auto (Bld) [#/Vol] 5.2 E9/L Normal 4.0-11.0 [facility] Comment on above: Performed By: #### 2 [id number] #### [facility] [address] [place] [address] CHEMISTRYOrdered By: SYSTEM SYSTEM on 12-11-2022 Iron binding capacity [Mass/Vol] 417 ug/dL High 250 - 400 mcg/dL [facility] Remisol Transferrin [Mass/Vol] 298 mg/dL Normal 200 - 370 mg/dL [facility] Remisol Consent Formson 12-11-2022 Consent Forms [id number] Normal [facility] Family Medicine Office/Clini c Noteon 12-11-2022 Family Medicine Office/Clinic Note HPI Staff Noemi is an 87 year old male who presents to establish care. 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 Martinez, Dr. Royal Jordan-Cardiology [facility], [facility] Last provider: Dr. Silva Any recent labs: August 15, 2021 Health Maintenance UTD: Colonoscopy: February 2011 PSA: with most recent labs Acute: Current issues/complaints: Irregular BM. Pt has c/o tar like stools, he is going more frequently, and pt noted a touch of blood. It started on December 06 or . Pt states it started out tar like and now his stools are black as black can be . He has a hx of colon polyps as well as a large family hx of colon cancer. Pt's father and two brothers from colon cancer. He's noticed small amounts of blood on the toilet paper when he wipes. Pt reports he had an issue like this 6-[address] Michael who completed a colonoscopy and pt believes it was after he turned 79 years old. [place] [facility] [place] for any colonoscopy in 2014 or more recent. Review of Systems PHQ Score Initial Depression Screen Score: 0 Physical Exam Vitals & Measurements HR: 60(Peripheral) BP: 128/62 SpO2: 98% HT: 70 in HT: 178.5 cm WT: 99 kg WT: 217.8 lb BMI: 31.07 Assessment/Plan 1. Black tarry stools (K92.1: Melena) Ordered: CBC w/ Auto Diff Fibrinogen Lvl [facility] Internal Ambulatory Referral Lab Specimen Collect [id number] PT & PTT Stool Occult Blood Stool Occult Blood TIBC Calculated 2. Family hx of colon cancer (Z80.0: Family history of malignant neoplasm of digestive organs) Ordered: [facility] Internal Ambulatory Referral Lab Specimen Collect [id number] Stool Occult Blood 3. Colon cancer screening (Z12.11: Encounter for screening for malignant neoplasm of colon) Ordered: [facility] Internal Ambulatory Referral Lab Specimen Collect [id number] Stool Occult Blood 4. BMI 31.0-31.9,adult (Z68.31: Body mass index [BMI] 31.0-31.9, adult) Ordered: [facility] Internal Ambulatory Referral Stool Occult Blood Follow-up No qualifying data available Problem List/Past Medical History Ongoing Acute cerebrovascular accident (CVA) AF (atrial fibrillation) Anemia Contusion of lung Dyshidrotic eczema Dysrhythmias Hemoperitoneum HTN (hypertension) Hyperlipidemia Historical No qualifying data Procedure/Surgical History Carpal tunnel release (12/10/2022), Cardiac pacemaker (09/2021), Colonoscopy (02/2011), Transurethral resection of prostate (TURP) syndrome (1995), Hernia (1993), Tonsillectomy with adenoidectomy. Medications amLODIPine 5 mg Tab, 5 mg= 1 tab(s), Oral, Daily furosemide 40 mg Tab, 40 mg= 1 tab(s), Oral, Daily lisinopril 20 mg Tab, 20 mg= 1 tab(s), Oral, Daily Osteo Bi-Flex Edge Joint & Energy with Ascorbic Acid and Minerals oral tablet warfarin 5 mg Tab, 5 mg= 1 tab(s), Oral, Daily Allergies No Known Medication Allergies Social History Alcohol - Low Risk, 12/11/2022 Current, Liquor, 3-5 times per week, Household alcohol concerns: No., 12/11/2022 Substance Abuse - Denies Substance Abuse, 12/11/2022 Household substance abuse concerns: No., 12/11/2022 Tobacco - Denies Tobacco Use, 12/11/2022 Never (less than 100 in lifetime) Tobacco Use:. Never Smokeless Tobacco Use:., 12/11/2022 Family History Diabetes mellitus type 1: Grandparent. Primary malignant neoplasm of colon: Father and Brother. Immunizations Vaccine Date Status Comments influenza virus vaccine, inactivated 05/02/2022 Recorded SARS-CoV-2 (COVID-19) mRNA BNT-162b2 vax 09/17/2020 Recorded 2022-10-31: TPV80 SARS-CoV-2 (COVID-19) mRNA BNT-162b2 vax 08/27/2020 Recorded 2022-10-31: TPV80 influenza virus vaccine, inactivated 06/13/2020 Recorded influenza virus vaccine, inactivated 06/01/2019 Recorded influenza virus vaccine, inactivated 04/14/2018 Recorded influenza virus vaccine, inactivated 04/22/2017 Recorded influenza virus vaccine, inactivated 05/01/2016 Recorded influenza virus vaccine, inactivated 06/02/2015 Recorded influenza virus vaccine, inactivated 05/31/2014 Recorded influenza virus vaccine, inactivated 06/02/2013 Recorded influenza, whole 05/29/2005 Recorded Normal [facility] Comment on above: Result Comment: Elec tronically Signed By: Krissy VICKERS, Leidy Calix\.br\Date and Time Signed: 12/11/22 13:49 EDT Family Medicine Office/Clinic Note HPI Staff Noemi is an 87 year old male who presents to establish care. 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 Martinez, Dr. Royal Jordan-Cardiology [facility], [facility]mad[facility] Last provider: Dr. Silva Any recent labs: August 15, 2021 Health Maintenance UTD: Colonoscopy: February 2011 PSA: with most recent labs Acute: Current issues/complaints: Irregular BM. Pt has c/o tar like stools, he is going more frequently, and pt noted a touch of blood. It started on December 06 or . Pt states it started out tar like and now his stools are black as black can be . He has a hx of colon polyps as well as a large family hx of colon cancer. Pt's father and two brothers from colon cancer. He's noticed small amounts of blood on the toilet paper when he wipes. Pt reports he had an issue like this 6-[address] Michael who completed a colonoscopy and pt believes it was after he turned 79 years old. [place] [facility] [place] for any colonoscopy in 2014 or more recent. History of Present Illness pt presents today with c/o black tarry stools since December 06 or . Has family history of colon cancer. Review of Systems PHQ Score Initial Depression Screen Score: 0 ROS - Provider Constitutional: no fever, no chills, no sweats, no fatigue Respiratory: no shortness of breath, no cough, no orthopnea, no wheezing. Cardiovascular: no chest pain, no palpitations, no edema. Neurologic: no headache, no dizziness, no numbness, no weakness. GI: dark tarry stools, small amount of blood on toilet paper, no abdominal pain Physical Exam Vitals & Measurements HR: 60(Peripheral) BP: 128/62 SpO2: 98% HT: 70 in HT: 178.5 cm WT: 99 kg WT: 217.8 lb BMI: 31.07 General: alert, no acute distress ENMT: oral mucosa moist, no pharyngeal erythema or exudate Cardiovascular: regular rate and rhythm, normal peripheral perfusion Respiratory: Lungs CTA, respirations non labored Extremities: no deformity, no trauma GI: pt was able to give very small stool sample appears to be dark brown in color no blood visualized Neurological: oriented x 4, LOC appropriate for age, CN II-XII intact, motor strength equal & normal bilaterally, speech normal Assessment/Plan 1. Black tarry stools (K92.1: Melena) pt presents today with c/o dark tarry stools for a couple days. and he is having bowel movements more frequently. pt denies abdominal pain. pt feels he had [place] 6[place]7 [place] [facility] [place] will call to access those records. pt has significant family history of colon cancer. will send stool to lab, will draw CBC and clotting studies in office today. will call patient tomorrow to advise if he should stop taking warfarin depending on lab results. all questions answered. RTC as needed Ordered: CBC w/ Auto Diff Fibrinogen Lvl [facility] Internal Ambulatory Referral PT & PTT Stool Occult Blood Stool Occult Blood TIBC Calculated 2. Family hx of colon cancer (Z80.0: Family history of malignant neoplasm of digestive organs) referral to Dr. Jiang placed for scope Ordered: [facility] Internal Ambulatory Referral Stool Occult Blood 3. Colon cancer screening (Z12.11: Encounter for screening for malignant neoplasm of colon) see above Ordered: [facility] Internal Ambulatory Referral Stool Occult Blood 4. BMI 31.0-31.9,adult (Z68.31: Body mass index [BMI] 31.0-31.9, adult) BMI education complete Ordered: [facility] Internal Ambulatory Referral Stool Occult Blood Follow-up No qualifying data available Problem List/Past Medical History Ongoing Acute cerebrovascular accident (CVA) AF (atrial fibrillation) Anemia Contusion of lung Dyshidrotic eczema Dysrhythmias Hemoperitoneum HTN (hypertension) Hyperlipidemia Historical No qualifying data Procedure/Surgical History Carpal tunnel release (12/10/2022), Cardiac pacemaker (09/2021), Colonoscopy (02/2011), Transurethral resection of prostate (TURP) syndrome (1995), Hernia (1993), Tonsillectomy with adenoidectomy. Medications amLODIPine 5 mg Tab, 5 mg= 1 tab(s), Oral, Daily furosemide 40 mg Tab, 40 mg= 1 tab(s), Oral, Daily lisinopril 20 mg Tab, 20 mg= 1 tab(s), Oral, Daily Osteo Bi-Flex Edge Joint & Energy with Ascorbic Acid and Minerals oral tablet warfarin 5 mg Tab, 5 mg= 1 tab(s), Oral, Daily Allergies No Known Medication Allergies Social History Alcohol - Low Risk, 12/11/2022 Current, Liquor, 3-5 times per week, Household alcohol concerns: No., 12/11/2022 Substance Abuse - Denies Substance Abuse, 12/11/2022 Household substance abuse concerns: No., 12/11/2022 Tobacco - Denies Tobacco Use, 12/11/2022 Never (less than 100 in lifetime) Tobacco Use:. Never Smokeless Tobacco Use:., 12/11/2022 Family History Diabetes mellitus type 1: Grandparent. Primary malignant neoplasm of (more content not included)... Normal [facility] Comment on above: Result Comment: Elec tronically Signed By: Krissy VICKERS, Leidy Calix\.br\Date and Time Signed: 12/11/22 13:48 EDT HEMATOLOGYOrdered By: SYSTEM SYSTEM on 12-11-2022 Basophils/100 WBC (Bld) 0.5 % Normal 0.0 - 2.0 % [facility] Basophils/Leukocytes Auto (Bld) [Pure # fraction] 0.0 E9/L Normal 0.0 - 0.2 E9/L [facility] Eosinophils/100 WBC (Bld) 3.4 % Normal 0.0 - 8.0 % [facility] Eosinophils/Leukocyte s Auto (Bld) [Pure # fraction] 0.2 E9/L Normal 0.0 - 0.5 E9/L [facility] Lymphocytes/100 WBC (Bld) 17.1 % Normal 14.0 - 50.0 % [facility] Lymphocytes/Leukocyte s Auto (Bld) [Pure # fraction] 0.9 E9/L Low 1.0 - 4.0 E9/L [facility] Monocytes/100 WBC (Bld) 6.1 % Normal 4.0 - 14.0 % [facility] Monocytes/Leukocytes Auto (Bld) [Pure # fraction] 0.3 E9/L Normal 0.2 - 1.0 E9/L [facility] Neutrophils/100 WBC (Bld) 72.9 % Normal 36.0 - 75.0 % [facility] Neutrophils/Leukocyte s Auto (Bld) [Pure # fraction] 3.8 E9/L Normal 2.0 - 7.5 E9/L [facility] HEMATOLOGYOrdered By: Dorene Hightower on 12-11-2022 Erythrocyte distribution width (RBC) [Ratio] 14.9 % High 10.9 - 14.2 % [facility] Hematocrit (Bld) [Volume fraction] 24.1 % Low 37.7 - 49.0 % [facility] Hemoglobin (Bld) [Mass/Vol] 8.1 g/dL Low 13.5 - 17.5 gm/dL [facility] MCH (RBC) [Entitic mass] 34.0 pg Normal 27.0 - 34.0 pg [facility] MCHC (RBC) [Mass/Vol] 33.6 g/dL Normal 31.4 - 36.0 gm/dL [facility] MCV (RBC) [Entitic vol] 101.1 fL High 80.0 - 100.0 fL [facility] Platelet mean volume (Bld) [Entitic vol] 8.9 fL Normal 6.4 - 10.8 fL [facility] Platelets (Bld) [#/Vol] 177.0 E9/L Normal 150.0 - 500.0 E9/L [facility] RBC (Bld) [#/Vol] 2.4 E12/L Low 4.3 - 5.9 E12/L [facility] WBC corrected for nucl RBC Auto (Bld) [#/Vol] 5.2 E9/L Normal 4.0 - 11.0 E9/L [facility] MICRO OTHER TESTSOrdered By: Daniella Case on 12-11-2022 Occult Bld Stl Positive *ABN* (12/11/22 12:14 PM) Invalid Interpretation Code Negative [facility]ero PROF 14(COMP METB)on 023 Albumin [Mass/Vol] 3.8 g/dL Normal 3.4-5.0 [facility] Comment on above: Performed By: #### B MP #### [facility] [address] [place] [address] Dr. Rashmi Nolan Albumin/Globulin [Mass ratio] 1.1 {ratio} Normal [facility] Comment on above: Performed By: #### B MP #### [facility] [address] [address] [address] Rashmi Nolan ALP [Catalytic activity/Vol] 178 U/L Critically high 46-116 [facility] Comment on above: Performed By: #### B MP #### [facility] [address] [address] [address] Rashmi Nolan ALT [Catalytic activity/Vol] 17 U/L Normal 16-63 [facility] Comment on above: Performed By: #### B MP #### [facility] [address] [address] [address] Rashmi Nolan Anion gap [Moles/Vol] 15.6 mmol/L Normal [facility] Comment on above: Performed By: #### B MP #### [facility] [address] [address] [address] Rashmi Nolan AST [Catalytic activity/Vol] 12 U/L Critically low 15-37 [facility] Comment on above: Performed By: #### B MP #### [facility] [address] [address] [address] Rashmi Nolan Bilirubin [Mass/Vol] 0.2 mg/dL Normal 0.2-1.0 [facility] Comment on above: Performed By: #### B MP #### [facility] [address] [address] [address] Rashmi Nolan Calcium [Mass/Vol] 9.5 mg/dL Normal 8.5-10.1 [facility] Comment on above: Performed By: #### B MP #### [facility] [address] [address] [address] Rashmi Nolan Chloride [Moles/Vol] 109 mmol/L Critically high 98-107 [facility] Comment on above: Performed By: #### B MP #### [facility] [address] [address] [address] Rashmi Nolan CO2 [Moles/Vol] 22.5 mmol/L Normal 21.0-32.0 [facility] Comment on above: Performed By: #### B MP #### [facility] [address] [address] [address] Rashmi Nolan Creatinine [Mass/Vol] 2.11 mg/dL Critically high 0.70-1.30 [facility] Comment on above: Performed By: #### B MP #### [facility] [address] [address] [address] Rashmi Nolan EGFR-AF ANGOLAN 36 mL/min/1.73m2 Critically low >=60 [facility] Comment on above: Performed By: #### B MP #### [facility] [address] [address] [address] Rashmi Nolan EGFR-NON AF ANGOLAN 30 mL/min/1.73m2 Critically low >=60 [facility] Comment on above: Performed By: #### B MP #### [facility] [address] [address] [address] Rashmi Nolan Globulin (S) [Mass/Vol] 3.4 g/dL Normal [facility] Comment on above: Performed By: #### B MP #### [facility] [address] [address] [address] Rashmi Nolan Glucose [Mass/Vol] 115 mg/dL Critically high 74-106 T [facility] Comment on above: Performed By: #### B MP #### [facility] [address] [address] [address] Rashmi Nolan Potassium [Moles/Vol] 5.1 mmol/L Normal 3.5-5.1 [facility] Comment on above: Performed By: #### B MP #### [facility] [address] [address] [address] Rashmi Nolan Protein [Mass/Vol] 7.2 g/dL Normal 6.4-8.2 [facility] Comment on above: Performed By: #### B MP #### [facility] [address] [address] [address] Rashmi Nolan Sodium [Moles/Vol] 142 mmol/L Normal 136-145 [facility] Comment on above: Performed By: #### B MP #### [facility] [address] [place] [address] Dr. Rashmi Nolan Urea nitrogen [Mass/Vol] 57.0 mg/dL Critically high 7.0-18.0 [facility] Comment on above: Performed By: #### B MP #### [facility] [address] [place] [address] Dr. Rashmi Nolan Urea nitrogen/Creatinine [Mass ratio] 27.0 mg/mg Normal [facility] Comment on above: Performed By: #### B MP #### [facility] [address] [place] [address] Dr. Rashmi Nolan PROTIMEon 12-11-2022 INR Coag (PPP) [Relative time] 1.95 {INR} Normal [facility] Comment on above: Performed By: #### P T, PTT #### [facility] [address] [place] [address] Dr. Rashmi Nolan INR GUIDELINES SEE BELOW Normal [facility] Comment on above: Result Comment: ENOC RED INR: 2.0 - 3.0 CONDITIONS NOT LISTED BELOW 2.5 - 3.5 FOR PROSTHETIC HEART VALVE REPLACEMENT 2.5 - 3.5 RECURRENT THROMBOSIS Performed By: #### P T, PTT #### [facility] [address] [place] [address] Dr. Rashmi Nolan PT Coag (PPP) [Time] 19.9 s Critically high 9.0-11.6 [facility] Comment on above: Performed By: #### P T, PTT #### [facility] [address] [place] [address] Dr. Rashmi Nolan PTTon 12-11-2022 aPTT Coag (Bld) [Time] 30.3 s Normal 22.3-36.2 [facility] Comment on above: Performed By: #### P T, PTT #### [facility] [address] [place] [address] Dr. Rashmi Nolan Stl Oclt Bldon 12-11-2022 Occult Bld Stl Positive Abnormal Negative [facility] Comment on above: Performed By: #### 2 [id number] #### [facility] [address] [place] [address] TIBC Calculatedon 12-11-2022 Iron binding capacity [Mass/Vol] 417 microgram/dL High 250-400 [facility] Comment on above: Performed By: #### 2 [id number] #### [facility] [address] [place] [address] Transferrin [Mass/Vol] 298 mg/dL Normal 200-370 [facility] Comment on above: Performed By: #### 2 [id number] #### [facility] [address] [place] [address] TYPE AND SCREENon 12-11-2022 TYPE AND SCREEN Negative Normal [facility] Comment on above: Performed By: #### C BC #### [facility] [address] [place], [place] [address] Dr. Rashmi Nolan XR CHEST 1 Von 12-11-2022 XR CHEST 1 V EXAMINATION: XR CHEST 1 V HISTORY: Dark stool for 3 to 4 days. Patient on Coumadin COMPARISON: Chest x-rays 10/14/2021 TECHNIQUE: Portable chest FINDINGS: The lung parenchyma is free of consolidation or infiltrate. No pneumothorax or pleural effusion. The cardiac, mediastinal and hilar contours are normal. Left-sided cardiac pacemaker. The visualized osseous structures exhibit no gross abnormality. IMPRESSION: No acute cardiopulmonary abnormality. Electronically authenticated by: STEPHANIE LIU Date: 2022-12-11 21:04 Normal [facility] Inpatient Patient Summaryon 12-10-2022 Inpatient [place] [address] Patient Discharge Instructions Name: RY LERNER : 1935 Patient Address: [address] [place] [address] Primary Care Provider: Name: John Nieves MD After you are discharged if you find you have any questions, please, call [phone] ext [phone] to speak to a nurse. 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 If you or anyone you know is experiencing suicidal thoughts, mental health, alcohol and/or drug addiction problems; contact the [facility] 18/02 Crisis Hotline -Text 4HLNB in 387489. If you received any narcotics, sedation, or any other medication that causes drowsiness for the next 24 hours, unless otherwise directed: ? Do not drive a car. ? Do not operate machinery such as power tools, lawn mowers, drills, sewing machines, or stoves ? Avoid alcoholic beverages and drugs for allergies, nerves, or sleep ? Do not make important personal or business decisions or sign any legal documents [facility] would like to thank you for allowing us to assist you with your healthcare needs. The following includes patient education materials and information regarding your injury/illness. RY LERNER has been given the following list of follow-up instructions, prescriptions, and patient education materials: Follow-up Instructions With: Address: When: Ward Martinez [address] [place] [address], [address] [place] [address] Business (1) 12/18/2022 1:30 PM Medications During the course of your visit, your medication list was updated with the most current information. The details of those changes are reflected below: Medications to Continue That Have Not Changed Other Medications amLODIPine (amLODIPine 5 mg oral tablet) 1 tab(s) Oral every day. TAKE ONE TABLET BY MOUTH DAILY. furosemide (furosemide 40 mg oral tablet) 1 tab(s) Oral every day. TAKE ONE TABLET BY MOUTH DAILY. glucosamine (glucosamine hydrochloride 1500 mg oral tablet) 1 tab(s) Oral every day. lisinopril (lisinopril 20 mg oral tablet) 1 tab(s) Oral every day. warfarin (warfarin 5 mg oral tablet) 1 tab(s) Oral every day. It is important to always keep an active list of medications available so that you can share with other providers and manage your medications appropriately. As an additional courtesy, we are also providing you with your final active medications list that you can keep with you. amLODIPine (amLODIPine 5 mg oral tablet) 1 tab(s) Oral every day. TAKE ONE TABLET BY MOUTH DAILY. furosemide (furosemide 40 mg oral tablet) 1 tab(s) Oral every day. TAKE ONE TABLET BY MOUTH DAILY. glucosamine (glucosamine hydrochloride 1500 mg oral tablet) 1 tab(s) Oral every day. lisinopril (lisinopril 20 mg oral tablet) 1 tab(s) Oral every day. warfarin (warfarin 5 mg oral tablet) 1 tab(s) Oral every day. Take only the medications listed above. Contact your doctor prior to taking any medications not on this list. Diet & Activity Patient Activity Level: Patient Diet: Regular Patient Activity Restrictions: Comment: Patient education materials, if any, will display below DR. BEYRE POST OPERATIVE [employer] SURGEONS WRITTEN INSTRUTCTIONS: 1. Keep your hand elevated above your elbow for the first 24 hours after surgery 2. Wiggle your fingers frequently while awake 3. DO NOT lift heavy objects or final touch up painter forcefully with your hand 4. Change your dressing in 1 day and apply an toan bandage as directed with the thumb tucked towards the palm of your hand. This keeps the tension off your incision 5. You may shower in 1 day but do not submerge your hand under water. Put a 4x4 gauze and the toan bandage back on after you shower 6. If you have any problems or concerns, please call the office at [phone] 7. Follow up as scheduled Viruses or Bacteria What?s got you sick? Antibiotics only treat bacterial infections. Viral illnesses cannot be treated with antibiotics. When an antibiotic is not prescribed, ask your healthcare professional for tips on how to relieve symptoms and feel better. Usual Cause Illness Viruses Bacteria Antibiotic Needed Cold/Runny Nose NO Bronchitis/Chest Cold (in otherwise healthy children and adults) NO Whooping Cough Yes Flu NO Strep Throat Yes Sore Throat (except strep) NO Fluid in the middle ear (otitis media with effusion) NO Urinary Tract Infection Yes Antibiotics Aren?t Always the Answer www.cdc.gov/getsmart GET SMART Know When Antibiotics Work [place] Department of Health and Human Services Centers for Disease Control and Prevention Mare (more content not included)... [facility] Preoperative Record MAGR Pre-Op Record Summary Primary Physician: Ward Martinez DO Finalized Date/Time: 12/10/22 15:29:41 Pt. Name: RY LERNER Benji/Sex: 1935 MALE Med Rec #: [id number] Physician: Ward Martinez DO Financial #: [id number] Pt. Type: D Room/Bed: / Admit/Disch: 12/10/22 13:13:28 - Institution: Pre-Op Case Times MAGR Pre-Care Text: Patient will be optimally prepared for surgery. Patient is free from s/s of injury. Provide information to patient/family related to plan of care. Verify patient allergies. Confirm identity and verify consent before the operative or invasive procedure. Entry 1 Patient Arrival Time 12/10/22 13:30:00 Preop Departure 12/10/22 14:53:00 Last Modified By: Maile Palmer RN 12/10/22 15:29:39 Post-Care Text: Patient is prepared mentally and physically and is ready for surgery. The patient remains free from s/s of injury. Patient/family express understanding of plan of care and participate in decisions affecting his or her perioperrative plan of care. Allergies documented appropriately. Patient identifiers and consent correct. General Comments: pt arrives to [facility] ambulatory. denies CP,cough,cold, COVID like symtpoms. 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 Finalized By: Maile Palmer RN Document Signatures Signed By: Maile Palmer RN 12/10/22 15:29 [facility] Patient Handouton 12-10-[address] 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 Keep your hand elevated above your elbow for the first 24 hours after surgery 2. Wiggle your fingers frequently while awake 3. DO NOT lift heavy objects or final touch up painter forcefully with your hand 4. Change your dressing in 1 day and apply an toan bandage as directed with the thumb tucked towards the palm of your hand. This keeps the tension off your incision 5. You may shower in 1 day but do not submerge your hand under water. Put a 4x4 gauze and the toan bandage back on after you shower 6. If you have any problems or concerns, please call the office at [phone] 7. Follow up as scheduled [facility] Historical Records Officeon 11-14-2022 Historical Records Office [id number] #1.00CD:127 Normal [facility] 36on 11-13-2022 36 Potassium was high, renal function is stable. Can stop taking potassium supplement and repeat BMP in one week. Normal [facility] Physician Referralon 023 Physician Referral [id number]#1.00CD:127 Normal [facility] Physician Referral [id number] #1.00CD:127 Normal [facility] MAGNESIUMon 11-06-2022 Magnesium [Mass/Vol] 2.2 mg/dL Normal 1.8-2.4 [facility] Comment on above: Performed By: #### B MP, MG #### [facility] [address] [place] [address] Dr. Rashmi Nolan Office Visiton 11-06-2022 Follow-up visit [id number] Ry Lerner 1935 M Date Provider Department Center 11/06/2022 [id number] VALLES [facility] Family History Family history unknown: Yes Level of Service:16863 LA OFFICE/OUTPATIENT ESTABLISHED MOD MDM 30-39 MIN Reason for Visit and Comments: Atrial Fibrillation [80] Hypertension [732496] Normal [facility] PROF CHEM 8 (BAS METB)on Anion gap [Moles/Vol] 15.0 mmol/L Normal [facility] Comment on above: Performed By: #### B MP, MG #### [facility] [address] [place] [address] Dr. Rashmi Nolan Calcium [Mass/Vol] 10.0 mg/dL Normal 8.5-10.1 [facility] Comment on above: Performed By: #### B MP, MG #### [facility] [address] [place] [address] Dr. Rashmi Nolan Chloride [Moles/Vol] 108 mmol/L Critically high 98-107 [facility] Comment on above: Performed By: #### B MP, MG #### [facility] [address] [address] [address] Rashmi Nolan CO2 [Moles/Vol] 25.4 mmol/L Normal 21.0-32.0 [facility] Comment on above: Performed By: #### B MP, MG #### [facility] [address] [address] [address] Rashmi Nolan Creatinine [Mass/Vol] 1.98 mg/dL Critically high 0.70-1.30 [facility] Comment on above: Performed By: #### B MP, MG #### [facility] [address] [address] [address] Rashmi Nolan EGFR-AF ANGOLAN 39 mL/min/1.73m2 Critically low >=60 [facility] Comment on above: Performed By: #### B MP, MG #### [facility] [address] [address] [address] Rashmi Nolan EGFR-NON AF ANGOLAN 32 mL/min/1.73m2 Critically low >=60 [facility] Comment on above: Performed By: #### B MP, MG #### [facility] [address] [address] [address] Rashmi Nolan Glucose [Mass/Vol] 99 mg/dL Normal 74-106 [facility] Comment on above: Performed By: #### B MP, MG #### [facility] [address] [address] [address] Rashmi Nolan Potassium [Moles/Vol] 5.4 mmol/L Critically high 3.5-5.1 [facility] Comment on above: Performed By: #### B MP, MG #### [facility] [address] [address] [address] Rashmi Nolan Sodium [Moles/Vol] 143 mmol/L Normal 136-145 [facility] Comment on above: Performed By: #### B MP, MG #### [facility] [address] [address] [address] Rashmi Nolan Urea nitrogen [Mass/Vol] 52.0 mg/dL Critically high 7.0-18.0 [facility] Comment on above: Performed By: #### B MP, MG #### [facility] [address] [place] [address] Dr. Rashmi Nolan Urea nitrogen/Creatinine [Mass ratio] 26.3 mg/mg Normal [facility] Comment on above: Performed By: #### B MP, MG #### [facility] [address] [place] [address] Dr. Rashmi Nolan EMG Electromyographyon 10-16 EMG Electromyography [id number] #1.00CD:127 Normal [facility] EMG Electromyography [id number] #1.00CD:127 Normal [facility] Lab Reportson 10-16-2022 Lab Reports [id number] 1.00CD:127 Normal [facility] VIT B12 AND FOLATEon 023 Cobalamin (Vitamin B12) [Mass/Vol] 514.0 pg/mL Normal 193.0-986.0 [facility] Comment on above: Performed By: #### B MP #### [facility] [address] [place] [address] Dr. Rashmi Nolan FOLATE 10.00 ng/mL Normal 8.60-58.90 [facility] Comment on above: Performed By: #### B MP #### [facility] [address] [place] [address] Dr. Rashmi Nolan CBC AUTO DIFFon 08-16-2022 BASO # 0.0 103/ul Normal 0.0-0.1 [facility] Comment on above: Performed By: #### B MP #### [facility] [address] [place] [address] Dr. Rashmi Nolan Basophils/100 WBC (Bld) 0.8 % Normal 0.2-2.0 [facility] Comment on above: Performed By: #### B MP #### [facility] [address] [place] [address] Dr. Rashmi Nolan EO # 0.3 103/ul Normal 0.0-0.7 [facility] Comment on above: Performed By: #### B MP #### [facility] [address] [place] [address] Dr. Rashmi Nolan Eosinophils/100 WBC (Bld) 7.8 % Critically high 0.9-7.0 [facility] Comment on above: Performed By: #### B MP #### [facility] [address] [place] [address] Dr. Rashmi Nolan Erythrocyte distribution width (RBC) [Ratio] 13.2 % Normal 11.0-15.0 [facility] Comment on above: Performed By: #### B MP #### [facility] [address] [place] [address] Dr. Rashmi Nolan Hematocrit (Bld) [Volume fraction] 33.2 % Critically low 42.0-54.0 [facility] Comment on above: Performed By: #### B MP #### [facility] [address] [place] [address] Dr. Rashmi Nolan Hemoglobin (Bld) [Mass/Vol] 10.8 g/dL Critically low 14.0-18.0 [facility] Comment on above: Performed By: #### B MP #### [facility] [address] [place] [address] Dr. Rashmi Nolan IG # 0.01 10e3/ul Normal 0.00-0.03 [facility] Comment on above: Performed By: #### B MP #### [facility] [address] [place] [address] Dr. Rashmi Nolan IG % 0.3 % Normal 0.0-0.5 [facility] Comment on above: Performed By: #### B MP #### [facility] [address] [place] [address] Dr. Rashmi Nolan LYMPH # 1.0 103/ul Critically low 1.2-3.8 [facility] Comment on above: Performed By: #### B MP #### [facility] [address] [place] [address] Dr. Rashmi Nolan Lymphocytes/100 WBC (Bld) 24.7 % Normal 20.5-60.0 [facility] Comment on above: Performed By: #### B MP #### [facility] [address] [place] [address] Dr. Rashmi Nolan MANUAL DIFF REQ NO Normal [facility] Comment on above: Performed By: #### B MP #### [facility] [address] [place] [address] Dr. Rashmi Nolan MCH (RBC) [Entitic mass] 33.0 pg Normal 25.9-34.0 [facility] Comment on above: Performed By: #### B MP #### [facility] [address] [place] [address] Dr. Rashmi Nolan MCHC (RBC) [Mass/Vol] 32.5 g/dL Normal 29.9-35.2 [facility] Comment on above: Performed By: #### B MP #### [facility] [address] [place] [address] Dr. Rashmi Nolan MCV (RBC) [Entitic vol] 101.5 fL Critically high 80.0-94.0 [facility] Comment on above: Performed By: #### B MP #### [facility] [address] [place] [address] Dr. Rashmi Nolan MONO # 0.4 103/ul Normal 0.3-0.8 [facility] Comment on above: Performed By: #### B MP #### [facility] [address] [place] [address] Dr. Rashmi Nolan Monocytes/100 WBC (Bld) 10.7 % Normal 1.7-12.0 [facility] Comment on above: Performed By: #### B MP #### [facility] [address] [place] [address] Dr. Rashmi Nolan NEUT # 2.1 103/ul Normal 1.4-6.5 [facility] Comment on above: Performed By: #### B MP #### [facility] [address] [place] [address] Dr. Rashmi Nolan Neutrophils/100 WBC (Bld) 55.7 % Normal 43.0-75.0 [facility] Comment on above: Performed By: #### B MP #### [facility] [address] [place] [address] Dr. Rashmi Nolan Platelet mean volume (Bld) [Entitic vol] 10.5 fL Normal 9.5-13.5 [facility] Comment on above: Performed By: #### B MP #### [facility] [address] [address] [address] Rashmi Nolan PLT 160 103/ul Normal 150-450 [facility] Comment on above: Performed By: #### B MP #### [facility] [address] [address] [address] Rashmi Nolan RBC 3.27 106/ul Critically low 4.70-6.10 [facility] Comment on above: Performed By: #### B MP #### [facility] [address] [place] [address] Dr. Rashmi Nolan WBC 3.8 103/ul Critically low 4.0-11.0 [facility] Comment on above: Performed By: #### B MP #### [facility] [address] [place] [address] Dr. Rashmi Nolan LIPID PROFILEon 08-16-2022 CHOL-HDL RATIO NORM SEE BELOW Normal [facility] Comment on above: Result Comment: 3.3 - 4.4 LOW RISK 4.4 - 7.1 AVERAGE RISK 7.1 - 11.0 MODERATE RISK >11.0 HIGH RISK Performed By: #### B MP #### [facility] [address] [place] [address] Dr. Rashmi Nolan Cholesterol [Mass/Vol] 166 mg/dL Normal <=200 [facility] Comment on above: Performed By: #### B MP #### [facility] [address] [place] [address] Dr. Rashmi Nolan Cholesterol in HDL [Mass/Vol] 42 mg/dL Normal 40-60 [facility] Comment on above: Performed By: #### B MP #### [facility] [address] [place] [address] Dr. Rashmi Nolan Cholesterol in LDL [Mass/Vol] 110.4 mg/dL Normal [facility] Comment on above: Performed By: #### B MP #### [facility] [address] [address] [address] Rashmi Nolan Cholesterol.total/Cho lesterol in HDL [Mass ratio] 4.0 {ratio} Normal [facility] Comment on above: Performed By: #### B MP #### [facility] [address] [address] [address] Rashmi Nolan HDL NORMAL > or = 60 mg/dl - LOW CARDIOVASCULAR RISK <40 mg/dl - HIGH CARDIOVASCULAR RISK Normal [facility] Comment on above: Performed By: #### B MP #### [facility] [address] [address] [address] Rashmi Nolan LDL CALC NORMAL SEE BELOW Normal [facility] Comment on above: Result Comment: <100 mg/dl OPTIMAL 100 - 129 mg/dl NEAR OR ABOVE OPTIMAL 130 - 159 mg/dl BORDERLINE HIGH 160 - 189 mg/dl HIGH >190 mg/dl VERY HIGH Performed By: #### B MP #### [facility] [address] [address] [address] Rashmi Nolan Triglyceride [Mass/Vol] 68 mg/dL Normal <=150 [facility] Comment on above: Performed By: #### B MP #### [facility] [address] [address] [address] Rashmi Nolan VLDL CALC 13.6 mg/dL Normal [facility] Comment on above: Performed By: #### B MP #### [facility] [address] [address] [address] Rashmi Nolan PROF 14(COMP METB)on 023 Albumin [Mass/Vol] 3.9 g/dL Normal 3.4-5.0 [facility] Comment on above: Performed By: #### B MP #### [facility] [address] [address] [address] Rashmi Nolan Albumin/Globulin [Mass ratio] 1.1 {ratio} Normal [facility] Comment on above: Performed By: #### B MP #### [facility] [address] [address] [address] Rashmi Nolan ALP [Catalytic activity/Vol] 190 U/L Critically high 46-116 [facility] Comment on above: Performed By: #### B MP #### [facility] [address] [address] [address] Rashmi Nolan ALT [Catalytic activity/Vol] 15 U/L Critically low 16-63 [facility] Comment on above: Performed By: #### B MP #### [facility] [address] [address] [address] Rashmi Nolan Anion gap [Moles/Vol] 15.2 mmol/L Normal [facility] Comment on above: Performed By: #### B MP #### [facility] [address] [place] [address] Dr. Rashmi Nolan AST [Catalytic activity/Vol] 17 U/L Normal 15-37 [facility] Comment on above: Performed By: #### B MP #### [facility] [address] [address] [address] Rashmi Nolan Bilirubin [Mass/Vol] 0.4 mg/dL Normal 0.2-1.0 [facility] Comment on above: Performed By: #### B MP #### [facility] [address] [place] [address] Dr. Rashmi Nolan Calcium [Mass/Vol] 10.0 mg/dL Normal 8.5-10.1 [facility] Comment on above: Performed By: #### B MP #### [facility] [address] [address] [address] Rashmi Nolan Chloride [Moles/Vol] 108 mmol/L Critically high 98-107 [facility] Comment on above: Performed By: #### B MP #### [facility] [address] [address] [address] Rashmi Nolan CO2 [Moles/Vol] 25.8 mmol/L Normal 21.0-32.0 [facility] Comment on above: Performed By: #### B MP #### [facility] [address] [address] [address] Rashmi Nolan Creatinine [Mass/Vol] 1.78 mg/dL Critically high 0.70-1.30 [facility] Comment on above: Performed By: #### B MP #### [facility] [address] [place] [address] Dr. Rashmi Nolan EGFR-AF ANGOLAN 44 mL/min/1.73m2 Critically low >=60 [facility] Comment on above: Performed By: #### B MP #### [facility] [address] [address] [address] Rashmi Nolan EGFR-NON AF ANGOLAN 36 mL/min/1.73m2 Critically low >=60 [facility] Comment on above: Performed By: #### B MP #### [facility] [address] [place] [address] Dr. Rashmi Nolan Globulin (S) [Mass/Vol] 3.7 g/dL Normal [facility] Comment on above: Performed By: #### B MP #### [facility] [address] [place] [address] Dr. Rashmi Nolan Glucose [Mass/Vol] 100 mg/dL Normal 74-106 [facility] Comment on above: Performed By: #### B MP #### [facility] [address] [place] [address] Dr. Rashmi Nolan Potassium [Moles/Vol] 5.0 mmol/L Normal 3.5-5.1 [facility] Comment on above: Performed By: #### B MP #### [facility] [address] [place] [address] Dr. Rashmi Nolan Protein [Mass/Vol] 7.6 g/dL Normal 6.4-8.2 [facility] Comment on above: Performed By: #### B MP #### [facility] [address] [place] [address] Dr. Rashmi Nolan Sodium [Moles/Vol] 144 mmol/L Normal 136-145 [facility] Comment on above: Performed By: #### B MP #### [facility] [address] [place] [address] Dr. Rashmi Nolan Urea nitrogen [Mass/Vol] 52.0 mg/dL Critically high 7.0-18.0 [facility] Comment on above: Performed By: #### B MP #### [facility] [address] [place] [address] Dr. Rashmi Nolan Urea nitrogen/Creatinine [Mass ratio] 29.2 mg/mg Normal [facility] Comment on above: Performed By: #### B MP #### [facility] [address] [address] [address] Rashmi Nolan Office Visiton 07-24-2022 Follow-up visit [id number] Ry Lerner 1935 M Date Provider Department Center 07/24/2022 ROYAL ENRIQUE [facility] No family history on file Level of Service:78224 [place] OFFICE/OUTPATIENT ESTABLISHED LOW MDM 20-29 MIN Reason for Visit and Comments: Chest Pain [626758] Normal [facility] PROF CHEM 8 (BAS METB)on Anion gap [Moles/Vol] 13.3 mmol/L Normal [facility] Comment on above: Performed By: #### C BC #### [facility] [address] [place] [address] Dr. Rashmi Nolan Calcium [Mass/Vol] 10.1 mg/dL Normal 8.5-10.1 [facility] Comment on above: Performed By: #### C BC #### [facility] [address] [place] [address] Dr. Rashmi Nolan Chloride [Moles/Vol] 104 mmol/L Normal 98-107 [facility] Comment on above: Performed By: #### C BC #### [facility] [address] [place] [address] Dr. Rashmi Nolan CO2 [Moles/Vol] 28.7 mmol/L Normal 21.0-32.0 [facility] Comment on above: Performed By: #### C BC #### [facility] [address] [place] [address] Dr. Rashmi Nolan Creatinine [Mass/Vol] 1.87 mg/dL Critically high 0.70-1.30 [facility] Comment on above: Performed By: #### C BC #### [facility] [address] [address] [address] Rashmi Nolan EGFR-AF ANGOLAN 42 mL/min/1.73m2 Critically low >=60 [facility] Comment on above: Performed By: #### C BC #### [facility] [address] [address] [address] Rashmi Nolan EGFR-NON AF ANGOLAN 34 mL/min/1.73m2 Critically low >=60 [facility] Comment on above: Performed By: #### C BC #### [facility] [address] [address] [address] Rashmi Nolan Glucose [Mass/Vol] 101 mg/dL Normal 74-106 [facility] Comment on above: Performed By: #### C BC #### [facility] [address] [address] [address] Rashmi Nolan Potassium [Moles/Vol] 5.0 mmol/L Normal 3.5-5.1 [facility] Comment on above: Performed By: #### C BC #### [facility] [address] [address] [address] Rashmi Nolan Sodium [Moles/Vol] 141 mmol/L Normal 136-145 [facility] Comment on above: Performed By: #### C BC #### [facility] [address] [address] [address] Rashmi Nolan Urea nitrogen [Mass/Vol] 41.0 mg/dL Critically high 7.0-18.0 [facility] Comment on above: Performed By: #### C BC #### [facility] [address] [address] [address] Rashmi Nolan Urea nitrogen/Creatinine [Mass ratio] 21.9 mg/mg Normal [facility] Comment on above: Performed By: #### C BC #### [facility] [address] [address] [address] Rashmi Nolan COVID/FLU RT-PCRon 2 SARS-CoV-2 (COVID-19) RNA ETELVINA+probe Ql (Unsp spec) Positive [employer] Other COVID/FLU RT-PCR Negative [employer] Other BNPon 02-15-2022 Natriuretic peptide B (Bld) [Mass/Vol] 1653.0 pg/mL Normal <=1,800.0 [facility] Comment on above: Performed By: #### C BC #### [facility] [address] [place] [address] Dr. Rashmi Nolan PROF CHEM 8 (BAS METB)on Anion gap [Moles/Vol] 15.8 mmol/L Normal [facility] Comment on above: Performed By: #### C BC #### [facility] [address] [place] [address] Dr. Rashmi Nolan Calcium [Mass/Vol] 9.6 mg/dL Normal 8.5-10.1 [facility] Comment on above: Performed By: #### C BC #### [facility] [address] [place] [address] Dr. Rashmi Nolan Chloride [Moles/Vol] 108 mmol/L Critically high 98-107 [facility] Comment on above: Performed By: #### C BC #### [facility] [address] [place] [address] Dr. Rashmi Nolan CO2 [Moles/Vol] 24.2 mmol/L Normal 21.0-32.0 [facility] Comment on above: Performed By: #### C BC #### [facility] [address] [place] [address] Dr. Rashmi Nolan Creatinine [Mass/Vol] 1.87 mg/dL Critically high 0.70-1.30 [facility] Comment on above: Performed By: #### C BC #### [facility] [address] [place] [address] Dr. Rashmi Nolan EGFR-AF ANGOLAN 42 mL/min/1.73m2 Critically low >=60 [facility] Comment on above: Performed By: #### C BC #### [facility] [address] [place], [place] [id number] Dr. Rashmi Nolan EGFR-NON AF ANGOLAN 34 mL/min/1.73m2 Critically low >=60 [facility] Comment on above: Performed By: #### C BC #### [facility] [address] [address] [address] Rashmi Nolan Glucose [Mass/Vol] 107 mg/dL Critically high 74-106 T [facility] Comment on above: Performed By: #### C BC #### [facility] [address] [address] [address] Rashmi Nolan Potassium [Moles/Vol] 5.0 mmol/L Normal 3.5-5.1 [facility] Comment on above: Performed By: #### C BC #### [facility] [address] [place] [address] Dr. Rashmi Nolan Sodium [Moles/Vol] 143 mmol/L Normal 136-145 [facility] Comment on above: Performed By: #### C BC #### [facility] [address] [place] [address] Dr. Rashim Nolan Urea nitrogen [Mass/Vol] 28.0 mg/dL Critically high 7.0-18.0 [facility] Comment on above: Performed By: #### C BC #### [facility] [address] [place] [address] Dr. Rashmi Nolan Urea nitrogen/Creatinine [Mass ratio] 15.0 mg/mg Normal [facility] Comment on above: Performed By: #### C BC #### [facility] [address] [place] [address] Dr. Rashmi Nolan APTTon 10-13-2021 aPTT Coag (Bld) [Time] 36.7 s High 25.0-35.0 The [facility] Comment on above: Result Comment: ALL RESULTS MUST BE INTERPRETED WITH RESPECT TO BLOOD DRAWING ARTIFACT OR DILUTION ERROR OF ANTICOAGULANT AT THE TIME OF SAMPLING. THE APTT SHOULD NOT BE USED TO MONITOR UNFRACTIONATED HEPARIN THERAPY, THIS LABORATORY NO LONGER HAS AN ESTABLISHED THERAPEUTIC RANGE BASED ON THE APTT. IT IS RECOMMENDED THAT THE UFH - HEPARIN ASSAY (ANTI-XA ACTIVITY) BE USED FOR THIS PURPOSE. Performed By: #### 5 0103 #### [facility] [address] [place] [address], [facility] BASIC METABOLIC PANELon 09-26 Calcium [Mass/Vol] 9.7 mg/dL Normal 8.6-10.3 [facility] Comment on above: Performed By: #### 0 0071, 72428, 17520, 49343 #### [facility] [address] [place] [address], [place] Chloride [Moles/Vol] 108 mmol/L High 98-107 [facility] Comment on above: Performed By: #### 0 0071, 87473, 57556, 36382 #### [facility] [address] [place] [address], [place] CO2 [Moles/Vol] 23 mmol/L Normal 21-31 [facility] Comment on above: Performed By: #### 0 0071, 90935, 55430, 56695 #### [facility] [address] [place] [address], [place] Creatinine [Mass/Vol] 1.98 mg/dL High 0.70-1.30 [facility] Comment on above: Performed By: #### 0 0071, 57403, 51406, 08987 #### [facility] [address] [place] [address], [facility] eGFR- 39 ml/min/1.73sq m Abnormal >60 The [facility] Comment on above: Result Comment: Calc ulation may not be valid for patients over 70 years Performed By: #### 0 0071, 93635, 92332, 98236 #### [facility] [address] [place] [id number], [facility] eGFR- non- 32 ml/min/1.73sq m Abnormal >60 [facility] Comment on above: Result Comment: Calc ulation may not be valid for patients over 70 years Performed By: #### 0 0071, 22883, 73105, 34890 #### [facility] [address] [place] [address], [facility] Glucose [Mass/Vol] 88 mg/dL Normal 70-100 [facility] Comment on above: Performed By: #### 0 0071, 89580, 53282, 17175 #### [facility] [address] [place] [address], [facility] Potassium [Moles/Vol] 4.8 mmol/L Normal 3.5-5.1 The [facility] Comment on above: Performed By: #### 0 0071, 29294, 18959, 85996 #### [facility] [address] [place] [address], [facility] Sodium [Moles/Vol] 138 mmol/L Normal 136-145 [facility] Comment on above: Performed By: #### 0 0071, 47459, 35909, 10109 #### [facility] [address] [place] [address], [facility] Urea nitrogen [Mass/Vol] 46 mg/dL High 7-25 The [facility] Comment on above: Performed By: #### 0 0071, 81099, 06267, 51268 #### [facility] [address] [facility] [address], [facility] BNP EDon 10-13-2021 Natriuretic peptide B (Bld) [Mass/Vol] 428 pg/mL High 0-100 The [facility] Comment on above: Result Comment: Give n the appropriate clinical setting a BNP result of >100 pg/mL indicates congestive heart failure. Performed By: #### 3 0935 #### [facility] [address] [place] [id number], [facility] CBC W/DIFFon 10-13-2021 ABS IMM GRANS 0.0 10*3/uL Normal 0.0-0.2 The [facility] Comment on above: Performed By: #### 5 0103 #### [facility] [address] [place] [id number], [facility] ABS NEUTROPHILS 2.8 10*3/uL Normal 1.6-7.6 [facility] Comment on above: Performed By: #### 5 3 #### [facility] [address] [place] [address], [facility] Basophils (Bld) [#/Vol] 0.0 10*3/uL Normal 0.0-0.2 The [facility] Comment on above: Performed By: #### 3 #### [facility] [address] [place] [address], [facility] Basophils/100 WBC (Bld) 0.5 % Normal 0.0-1.0 The [facility] Comment on above: Performed By: #### 102 #### [facility] [address] [facility] [address], [facility] Eosinophils (Bld) [#/Vol] 0.3 10*3/uL Normal 0.0-0.5 The [facility] Comment on above: Performed By: #### 5 3 #### [facility] [address] [facility] [place] [address], [facility] Eosinophils/100 WBC (Bld) 7.4 % High 0.0-6.0 The [facility] Comment on above: Performed By: #### 5 3 #### [facility] [address] [place] [address], [facility] Erythrocyte distribution width (RBC) [Ratio] 13.9 % Normal 11.5-15.0 The [facility] Comment on above: Performed By: #### 5 3 #### [facility] [address] [place] [address], [facility] Hematocrit (Bld) [Volume fraction] 33.5 % Low 39.0-50.0 The [facility] Comment on above: Performed By: #### 5 3 #### [facility] [address] Hemoglobin (Bld) [Mass/Vol] 11.4 g/dL Low 13.0-17.0 The [facility] Comment on above: Performed By: #### 5 3 #### [facility] [address] IMMATURE GRANS 0.2 % Normal 0.0-1.0 [facility] Comment on above: Performed By: #### 3 #### [facility] [address] Lymphocytes (Bld) [#/Vol] 0.9 10*3/uL Low 1.2-4.0 The [facility] Comment on above: Performed By: #### 102 #### [facility] [address] Lymphocytes/100 WBC (Bld) 20.1 % Normal 20.0-45.0 The [facility] Comment on above: Performed By: #### 5 3 #### [facility] [address] MCH (RBC) [Entitic mass] 33.1 pg High 27.0-33.0 The [facility] Comment on above: Performed By: #### 5 3 #### [facility] [address] MCHC (RBC) [Mass/Vol] 34.0 g/dL Normal 32.0-35.0 The [facility] Comment on above: Performed By: #### 5 3 #### [facility] [address] MCV (RBC) [Entitic vol] 97.4 fL Normal 82.0-98.0 The [facility] Comment on above: Performed By: #### 5 0103 #### [facility] [address] [place] [address], [facility] Monocytes (Bld) [#/Vol] 0.4 10*3/uL Normal 0.1-1.0 [facility] Comment on above: Performed By: #### 102 #### [facility] [address] [place] [address], [facility] MONOS 8.4 % Normal 5.0-12.0 The [facility] Comment on above: Performed By: #### 102 #### [facility] [address] [place] [address], [facility] Neutrophils/100 WBC (Bld) 63.4 % Normal 40.0-72.0 The [facility] Comment on above: Performed By: #### 102 #### [facility] [address] [facility] [place] [address], [facility] Nucleated RBC/100 WBC (Bld) [Ratio] 0 % Normal 0-0 The [facility] Comment on above: Performed By: #### 102 #### [facility] [address] [facility] [place] [address], [facility] PLAT CNT 116 10*3/uL Low 150-400 The [facility] Comment on above: Performed By: #### 102 #### [facility] [address] [facility] [place] [id number], [facility] RBC (Bld) [#/Vol] 3.44 10*6/uL Low 4.20-5.70 The [facility] Comment on above: Performed By: #### 102 #### [facility] [address] [facility] [place] [id number], [facility] WBC (Bld) [#/Vol] 4.43 10*3/uL Normal 4.00-10.60 The [facility] Comment on above: Performed By: #### 102 #### [facility] [address] [facility] [place] [address], [facility] Cardiovascular Lab Reporton 10-13-2021 Cardiovascular Lab Report [facility] Patient Name: Ry Lerner [facility] MR #: [id number] Physician: Royal Rivera MD Department of Service Date: 10/13/2021 Medicine Birthdate: 1935 Division of Room #: [facility] Cardiology Adult Cardiovascular Services [facility] [address] [facility] [place], [place] [address] Cardiovascular Laboratory Report PACEMAKER IMPLANT PROCEDURE NOTE DATE OF PROCEDURE: 10/13/2021 PERFORMING PHYSICIAN: Dr. Royal Rivera CONSENT: Patient LOCATION: EP Lab PROCEDURE PERFORMED: 1. Implantation of pacemaker ([employer]) 2. Ultrasound guided venous access INDICATIONS: 1. Chronic atrial fibrillation 2. Bradycardia in the 30's. PROCEDURAL SEDATION: Versed and Fentanyl. Moderate sedation was administered by the sedation nurse under my supervision and noted in the CVL log. Intraprocedural face to face sedation time: No sedation given. Monitoring: Cardiac telemetry, Blood pressure, continuous pulse oxymetry. FLUOROSCOPY TIME: 1min 58sec /17mGray PREPARATION: 86-year-old gentleman with a history of atrial fibrillation, very slow ventricular rate, who had presented earlier with symptoms of fatigue and dyspnea. He was previously recommended a pacemaker, however, presented to [place] ED with a ventricular rate in the 30s. He was subsequently transferred over to [facility] ED for a pacemaker placement. Patient was brought to the EP lab in the post absorptive state. A procedural pause was performed identifying the patient, the procedure to be performed and the site of implant. The left chest was prepped and draped in the usual sterile fashion. Preoperative antibiotics IV was administered. PROCEDURAL DETAILS: Patient was placed in trendelenberg position and ultrasound was used to evaluate the patency of left axillary vein and for venous access. Left axillary venous access was obtained using modified seldinger technique using a 5 [place] micro-puncture needle on one occasion and 0.35 wire was placed. Local infiltration of 1% Lidocaine was performed, and an incision was created in the left upper chest. Dissection was then performed using cautery down to the fascial plane above the muscle. A small pocket was created for the device. 6 [place] Citizen Safesheaths were placed over the wire. An active fixation [employer] pacing lead was then delivered through the 6Fsheath to the right ventricle. After confirmation of lead position on orthogonal views (HANSEN and ROMANIAN) to confirm septal position, the screw was activated, and the lead was placed in the right ventricular mid cavity towards the septum. After confirmation of good sensing parameters, injury pattern and pacing thresholds, 10V pacing was done and no diaphragmatic stimulation was noted. It was then secured in the pocket using three 1-0 Silk sutures. Pocket hemostasis was secured, and it was then copiously and vigorously irrigated with antibiotic solution. The leads were attached to the generator and then wrapped under the device and the device was tacked to underlying muscle and placed in the pocket. The pocket was closed in layers: muscle and subcutaneous layer using 2-0 Vicryl; skin using 3-0 absorbable monofilament suture. Glue was applied and Tegaderm dressing was placed on top. Lead parameters were then rechecked through the device as noted below. The patient was returned to the short stay room for post procedural observation. No immediate procedural complications were noted. Device info: [employer] Accolade MRI EL Model# L331 Serial# [id number] RV lead: Model# [id number] [id number] (59cms) Serial# [id number] Sensin.4mV Threshold: 0.6V@0.4ms Impedance: 598 Ohms POST PROCEDURE EXAM: Patient was hemodynamically stable. COMPLICATIONS: None. ESTIMATED BLOOD LOSS: 5cc IMPRESSION: 1. Successful single chamber pacemaker with excellent pacing and sensing parameters. RECOMMENDATIONS: 1. Occlusive dressing to be removed after 2 weeks. 2. Do not wet the incision for 7 days. 3. No lifting heavy weights using arm on the same side x 3weeks 4. Do not lift elbow above the shoulder on the same side for 4-6 weeks. 5. No driving for 1 month. 6. F/u in device clinic 1 week from discharge or sooner for any concerns. Royal Rivera MD Cardiac Electrophysiology Electronically Signed by: Royal Rivera MD 10/15/2021 10:00 A Royal Rivera MD Date Dict: 10/13/2021/10:04 A/Royal Rivera MD Date Trans: 10/13/2021 10:46 Alcides/oscar [id number] cc: Jason Silva M.D. [address] [place] [id number] Normal [facility] FRESH FROZEN PLASMA 1 UNITon 10-13-2021 PRODUCT CODE 1 [id number] Normal [facility] Comment on above: Order Comment: INR: 2.88 ,PTT: 36.7 at the time of order ;Indication: Other pacemaker placement Performed By: #### 8 7001 #### [facility] [address] PRODUCT STATUS [address] [facility] Comment on above: Order Comment: INR: 2.88 ,PTT: 36.7 at the time of order ;Indication: Other pacemaker placement Result Comment: Resu lt changed by IF on 10/19/2021 01:00. The previous value was XM. Performed By: #### 8 7001 #### [facility] [address] [place] [address], [facility] UNIT ABO 1 O Normal [facility] Comment on above: Order Comment: INR: 2.88 ,PTT: 36.7 at the time of order ;Indication: Other pacemaker placement Performed By: #### 8 7001 #### [facility] [address] [place] [address], [facility] UNIT ID 1 [id number] Normal [facility] Comment on above: Order Comment: INR: 2.88 ,PTT: 36.7 at the time of order ;Indication: Other pacemaker placement Performed By: #### 8 7001 #### [facility] [address] [place] [address], [facility] UNIT RH 1 Negative Normal [facility] Comment on above: Order Comment: INR: 2.88 ,PTT: 36.7 at the time of order ;Indication: Other pacemaker placement Performed By: #### 8 7001 #### [facility] [address] [place] [address], [place] LIVER BATTERYon 10-13-2021 Albumin [Mass/Vol] 4.0 g/dL Normal 3.5-5.7 [facility] Comment on above: Performed By: #### 0 0071, 07362, 61933, 23238 #### [facility] [address] [place] [address], [place] ALKALINE PHOSPH 137 IU/L High 34-104 [facility] Comment on above: Performed By: #### 0 0071, 69940, 51340, 58954 #### [facility] [address] [place] [address], [place] ALT [Catalytic activity/Vol] 29 U/L Normal 7-52 [facility] Comment on above: Performed By: #### 0 0071, 07335, 64058, 96816 #### [facility] [address] [place] [address], [place] AST [Catalytic activity/Vol] 22 U/L Normal 13-39 The [facility] Comment on above: Performed By: #### 0 0071, 09958, 71277, 78760 #### [facility] [address] [place] [address], [place] Bilirubin [Mass/Vol] 0.7 mg/dL Normal 0.3-1.0 The [facility] Comment on above: Performed By: #### 0 0071, 43516, 14984, 85628 #### [facility] [address] [place] [address], [place] Bilirubin.direct [Mass/Vol] 0.1 mg/dL Normal 0.0-0.2 The [facility] Comment on above: Performed By: #### 0 0071, 67039, 64203, 22275 #### [facility] [address] [place] [address], [place] Protein [Mass/Vol] 6.3 g/dL Normal 6.0-8.3 The [facility] Comment on above: Performed By: #### 0 0071, 35083, 97567, 81424 #### [facility] [address] [facility] [address], [facility] MAGNESIUM BLOODon 10-13-2021 Magnesium [Mass/Vol] 2.0 mg/dL Normal 1.9-2.7 The [facility] Comment on above: Performed By: #### 0 0071, 54578, 82730, 43770 #### [facility] [address] [facility] [address], [facility] POC SARS COV2 ANTIGEN NEGATI VEon 10-13-2021 POC SARS COV2 ANTIGEN NEG Negative Normal NEGATIVE The [facility] Comment on above: Result Comment: Nega tive results should be treated as presumptive and confirmation with a molecular assay, if necessary, for patient management, may be performed. Negative results do not rule out SARS-CoV-2 infection and not should be used as the sole basis for treatment or patient management decisions, including infection control decisions. Negative results should be considered in the context of a patient's recent exposures, history, and the presence of clinical signs and symptoms consistent with COVID-19. The Clarity COVID-19 Antigen Rapid Test Cassette is a rapid chromatographic immunoassay intended for the qualitative detection of the nucleocapsid protein antigen from SARS-CoV-2 in direct nasopharyngeal swab (CHEF DE FROID) specimens from individuals who are suspected of COVID-19 by their healthcare provider within the first six days of symptom onset. Testing is limited to laboratories certified under the Clinical Laboratory Improvement Amendments of 1988 (CLIA), 42 U.S.C. ???263a, that meet the requirements to perform moderate complexity, high complexity, or waived tests. This test is authorized for use at the Point of Care (POC), i.e., in patient care settings operating under a CLIA Certificate of Waiver, Certificate of Compliance, or Certificate of Accreditation. Performed By: #### 3 2044 #### [facility] [address] [facility] [address], [facility] PORTABLE CHEST 1 VIEWon 09-26 PORTABLE CHEST 1 VIEW [facility] Department of Radiology [address] [place] [address] Patient Name: RY LERNER : 1935 Sex: M Age: Race: White Pt. Location: [facility] Patient Status: E Ordered Date: 10/13/2021 4:40:00 AM Completed Date: 10/13/2021 05:26 AM Requesting Provider: DEJON QUINTANA Attending Provider: DEJON QUINTANA Report Copy To: Signs & Symptoms: Chest Pain History: See Comments Comments: evaluate for Infiltrates Exam: PORTABLE CHEST 1 VIEW PORTABLE CHEST 1 VIEW 10/13/2021 5:26 AM CLINICAL INDICATIONS: Chest Pain TECHNOLOGIST COMMENTS: bradycardia, chest pain off and on, fatigue history of atrial fibrillation, hypertension, CHF, kidney failure QUESTION FOR THE RADIOLOGIST: evaluate for Infiltrates PROTOCOL: AP(PA) view was obtained. COMPARISON: None. FINDINGS: Cardiopericardial silhouette is within normal limits given projection. No focal airspace opacity, pneumothorax or pleural effusion. Right diaphragmatic eventration. IMPRESSION: No acute pulmonary process. Approved by:Humble Alvarado10/13/2021 5:33 AM. I, Mark Decker,have reviewed the image(s) and agree with the findings in this report. Electronically signed: Mark Decker. Transcribed by: [email or web address], User Resident: HUMBLE HERNANDEZ Electronically Signed by: MARK DECKER @ 10/13/2021 05:55 AM I personally read this/these film(s) with this resident Normal The [facility] Comment on above: Order Comment: evalu ate for Infiltrates PROTHROMBIN TIMEon INR Coag (PPP) [Relative time] 2.88 {INR} High 0.91-1.16 The [facility] Comment on above: Result Comment: ACCC P RECOMMENDED INR FOR WARFARIN THERAPY -------- ------- CONDITION INR PROPHYLAXIS OF VENOUS THROMBOSIS 2-3 (HIGH-RISK SURGERY) TREATMENT OF VENOUS THROMBOSIS 2-3 TREATMENT OF PULMONARY EMBOLISM 2-3 PREVENTION OF SYSTEMIC EMBOLISM: 2-3 ACUTE MYOCARDIAL INFARCTION TISSUE HEART VALVES VALVULAR HEART DISEASE ATRIAL FIBRILLATION RECURRENT SYSTEMIC EMBOLISM MECHANICAL HEART VALVE 2.5-3.5 FROM: ORAL ANTICOAGULANTS. MECHANISM OF ACTION, CLINICAL EFFECTIVENESS, AND OPTIMAL THERAPEUTIC RANGE. CHEST 1995;108:231S-246S. Performed By: #### 5 6101, 73466 #### [facility] [address] [facility] [place] [address], [facility] PT Coag (PPP) [Time] 30.0 s High 12.3-14.8 The [facility] Comment on above: Result Comment: ALL RESULTS MUST BE INTERPRETED WITH RESPECT TO BLOOD DRAWING ARTIFACT OR DILUTION ERROR OF ANTICOAGULANT AT THE TIME OF SAMPLING. Performed By: #### 5 6101, 44060 #### [facility] [address] [place] [address], [facility] TROPONIN-Ion 10-13-2021 Troponin I.cardiac [Mass/Vol] 0.05 ng/mL High 0.00-0.04 The [facility] Comment on above: Result Comment: REFE RENCE RANGES: 0.00 - 0.04 ng/ml NORMAL 0.05 - 0.50 ng/ml INDETERMINATE > 0.50 ng/ml CONSISTENT WITH AN M.I. Performed By: #### 0 0071, 08275, 99111, 64185 #### [facility] [address] [place] [address], [facility] TYPE AND SCREENon 10-13-2021 ABO INTERPRETATION O Normal [facility] Comment on above: Performed By: #### 5 0103 #### [facility] [address] [place] [address], [facility] RH INTERPRETATION Positive Normal The [facility] Comment on above: Performed By: #### 5 0103 #### [facility] [address] [place] [address], [facility] Vital Signs Date Time Vital Sign Value Performing Clinician Facility 06-02-2022 14:50-0400 Body height 182.88 cm Sonja Aden Other [facility] Other 06-02-2022 14:50-0400 Body mass index (BMI) [Ratio] 29.73 kg/m2 Sonja Aden Other [facility] Other 06-02-2022 14:50-0400 Body temperature 99.6 [degF] Sonja Aden Other [facility] Other 06-02-2022 14:50-0400 Body weight 99.43 kg Sonja Aden Other [facility] Other 06-02-2022 14:50-0400 Diastolic blood pressure 54 mm[Hg] Sonja Aden Other [facility] Other 06-02-2022 14:50-0400 Respiratory rate 18 /min Sonja Aden Other [facility] Other 06-02-2022 14:50-0400 SaO2% (BldA) [Mass fraction] 95 % Sonja Markie Other just[facility]me Other 06-02-2022 14:50-0400 Systolic blood pressure 118 mm[Hg] Sonja Aden Other just[facility]me Other Encounters Encounter Date Encounter Type Care Provider Facility Start: 08-28-2023 ambulatory John Nieves Facility :[facility] [place] Start: 07-03-2023 End: 07-04-2023 ambulatory Leidy L Krissy Facility:[facility] [place] Start: 07-02-2023 End: 07-02-2023 ambulatory [facility] Start: 05-15-2023 End: 05-15-2023 ambulatory [facility] Start: 02-08-2023 End: 02-08-2023 ambulatory [facility] Start: 01-22-2023 End: 01-23-2023 ambulatory Leidy L Krissy Facility:[facility] Start: 01-22-2023 End: 01-22-2023 Lab Drop off Leidy L Krissy [facility] Start: 12-31-2022 End: 12-31-2022 ambulatory Ward Martinez Facility:[facility] Start: 12-25-2022 End: 12-26-[address] JASON SILVA . Facility: Start: 12-21-2022 End: 12-22-2022 ambulatory Leidy L Krissy Facility:[facility] [place] Start: 12-17-2022 End: 01-16-2023 ambulatory Leidy L Krissy Facility:[id number] Start: 12-12-2022 End: 12-14-2022 Evaluation and management of inpatient DR JASON SILVA . Facility: Start: 12-11-2022 End: 12-12-2022 ambulatory Leidy L Krissy Facility:[facility] Start: 12-11-2022 End: 12-11-2022 Lab Drop off Leidy Rey [facility] Start: 12-10-2022 End: 12-10-2022 ambulatory Ward Rikijennifer Martinez Facility:[facility] Start: 11-27-2022 End: 11-27-2022 ambulatory [facility] Start: 11-26-2022 End: 12-26-2022 ambulatory HAYWARD H AMBIKAD Facility:[facility] Start: 11-06-2022 End: 11-07-[address] JASON SILVA . Facility:[facility] Start: 11-06-2022 End: 11-06-2022 [facility] Start: 10-29-2022 End: 11-23-2022 ambulatory H AMBIKAD Facility:[facility] Start: 10-09-2022 ambulatory Leidy Rey Facility:[facility] Start: 09-26-2022 End: 10-26-2022 ambulatory SHAIKH Joe JUNIOR Facility:[facility] Start: 08-29-2022 End: 09-26-2022 ambulatory H AMBIKAD Facility:[facility] Start: 08-22-2022 End: 08-23-[address] JASON SILVA . Facility:[facility] Start: 08-16-2022 End: 08-17-[address] JASON SILVA . Facility:[facility] Start: 07-30-2022 End: 08-29-2022 ambulatory HAYWARD Joe APPLED Facility:[facility] Start: 07-24-2022 End: 07-25-2022 ambulatory [facility] Facility:[facility] Start: 07-24-2022 End: 07-24-2022 ambulatory [facility] Start: 06-28-2022 End: 07-29-2022 ambulatory HAYWARD H FAWWARDD Facility:[facility] Start: 06-02-2022 End: 06-02-2022 ambulatory Sonja Aden Other just[facility]me Other Start: 06-02-2022 Office outpatient ne w 30 minutes Sonja Aden [facility] Start: 05-29-2022 End: 06-27-2022 ambulatory SHAIKH Joe FAJenniferWAD Facility:[facility] Start: 04-29-2022 End: 05-28-2022 ambulatory HAYWARD H FAWWAD Facility:[facility] Start: 03-29-2022 End: 04-28-2022 ambulatory HAYWARD H FAWWAD Facility:[facility] Start: 03-20-2022 End: 03-20-2022 ambulatory UNKNOWN PROVIDER Facility:[facility] Start: 02-26-2022 End: 03-28-2022 ambulatory SHAIKH Joe FAJenniferWAD Facility:[facility] Start: 02-15-2022 End: 02-16-2022 ambulatory KELLY BONILLA Facility:[facility] Start: 01-26-2022 End: 02-23-2022 ambulatory SHAIKH Joe STEPHENSWAD Facility:[facility] Start: 10-13-2021 End: 10-13-2021 ambulatory UNKNOWN PROVIDER Facility:[facility] Start: 10-13-2021 End: 10-13-2021 Emergency department patient visit PHYSICIAN UNKNOWN Facility:[facility] Procedures Date Procedure Procedure Detail Performing Clinician Start: 12-14-2022 Excision of Stomach, Via Natural or Artificial Opening Endoscopic, Diagnostic DR JASON SILVA . Start: 12-14-2022 Inspection of Lower Intestinal Tract, Via Natural or Artificial Opening Endoscopic DR JASON SILVA . Start: 12-12-2022 Transfusion of Nonautologous Red Blood Cells into Peripheral Vein, Percutaneous Approach DR JASON SILVA . Start: 12-12-2022 Colonoscopy Leidy cannon Start: 12-10-2022 Decompression of med lluvia nerve Leidy Rey Comment on above: Left Start: 08-22-[address] JASON CRUZ . Comment on above: Performed By: #### B MP #### [facility] [address] [address] [address] Rashmi Nolan Start: 10-13-2021 Antibody screen PHYSICI AN UNKNOWN Comment on above: Performed By: #### [id number] #### [facility] [address] Start: 09-26-2021 Cardiac pacemaker, d evice (physical object) Leidy Krissy Start: 02-26-2011 Colonoscopy Leidy Schwa b Start: 07-29-1995 TURP syndrome (disorder) Leidy Krissy Start: 07-29-1993 Herniated structure (morphologic abnormality) Leidy Krissy Tonsillectomy and adenoidectomy Leidy Krissy Immunizations Immunization Date Immunization Notes Care Provider Fa cili 05-02-2022 influenza virus vaccine, unspecified formulation Leidy Krissy [facility] 09-17-2020 SARS-CoV-2 (COVID-19 ) mRNA BNT-162b2 vax Leidy Krissy [facility] Comment on above: Result Comment: 2022: [id number] 08-27-2020 SARS-CoV-2 (COVID-19 ) mRNA BNT-162b2 vax Leidy Krissy [facility] Comment on above: Result Comment: 2022: [id number] 06-13-2020 influenza virus vaccine, unspecified formulation Leidy Krissy [facility] 06-01-2019 influenza virus vaccine, unspecified formulation Leidy Krissy [facility] 04-14-2018 influenza virus vaccine, unspecified formulation Leidy Krissy [facility] 04-22-2017 influenza virus vaccine, unspecified formulation Leidy Krissy [facility] 05-01-2016 influenza virus vaccine, unspecified formulation Leidy Krissy [facility] 06-02-2015 influenza virus vaccine, unspecified formulation Leidy Krissy [facility] 05-31-2014 influenza virus vaccine, unspecified formulation Leiyd Krissy [facility] 06-02-2013 influenza virus vaccine, unspecified formulation Leidy Krissy [facility] 05-29-2005 influenza, whole Leidy Krissy [facility] Payers Date Payer Category Payer Unknown [facility] 1959 Medicare [id number] 1935 Unknown [id number] 2.16.8 40.1.613512.3.579.2.647 1934 Unknown [id number] 2.16. 840.1.231616.3.579.2.732 1934 Unknown [id number] 2.16. 840.1.894631.3.579.2.732 1934 Unknown [id number] 2.16.8 40.1.995203.3.579.2.718 1934 Unknown [id number] 2.16.8 40.1.258497.3.579.2.718 1934 Unknown [id number] 2.16.84 0.1.950568.3.579.2.593 1934 Unknown [id number] 2.16.84 0.1.933905.3.579.2.593 1934 Unknown [id number] 2.16.84 0.1.425269.3.579.2.593 1934 Unknown [id number] 2.16.84 0.1.820491.3.579.2.593 1934 Unknown [id number] 2.16.84 0.1.567870.3.579.2.593 1934 Unknown [id number] 2.16.84 0.1.096186.3.579.2.593 1934 Unknown [id number] 2.16.84 0.1.184954.3.579.2.593 1934 Unknown [id number] 2.16.84 0.1.809860.3.579.2.593 1934 Unknown [id number] 2.16.84 0.1.145030.3.579.2.593 1934 Unknown [id number] 2.16.84 0.1.144240.3.579.2.593 1934 Unknown [id number] 2.16.84 0.1.740845.3.579.2.593 1934 Unknown [id number] 2.16.84 0.1.889789.3.579.2.593 1934 Unknown [id number] 2.16.84 0.1.110302.3.579.2.593 1934 Unknown [id number] 2.16.84 0.1.128273.3.579.2.593 1934 Unknown [id number] 2.16.84 0.1.013003.3.579.2.593 1934 Unknown [id number] 2.16.84 0.1.902722.3.579.2.593 1934 Unknown [id number] 2.16.84 0.1.405153.3.579.2.593 1934 Unknown [id number] 2.16.84 0.1.154436.3.579.2.593 1934 Unknown [id number] 2.16.8 40.1.441540.3.579.2.727 1934 Unknown [id number] 2.16.8 40.1.118787.3.579.2.727 1934 Unknown [id number] 2.16.8 40.1.719037.3.579.2.727 1934 Unknown [id number] 2.16.8 40.1.378655.3.579.2.727 1934 Unknown [id number] 2.16.8 40.1.308998.3.579.2.727 1934 Unknown [id number] 2.16.8 40.1.500599.3.579.2.727 1934 Unknown [id number] 2.16.8 40.1.623858.3.579.2.727 Social History Date Type Detail Facility Unknown if ever smoked just[facility] Other Sex Assigned At [facility] Start: 12-11-2022 Tobacco smoking status Never s moked tobacco (finding) [facility] Tobacco smoking status Never [facility] Comment on above: Quit in 2002 Start: 01-22-2023 Tobacco smoking status Ex-smoker (fi nding) [facility] Comment on above: Quit in 2002 Clinical Notes 10-13-2021 to 05-15-2023 Note Date & Type Note Facility 05-15-2023 Note [place] Cardiology Consul t Note Reason for visit: Afib. S/p PPM 05/15/23: Patient here for 3-month follow-up We previously restarted warfarin after having GI ulcer concerns.He has been tolerating warfarin well without any complaints of bleeding, tarry or black or maroon stools or vomiting blood Device check 11/27/22 normal device function, stable thresholds. Underlying rhythm slow VR AF. 02/08/23 HPI: Ry Lerner is a 87 y.o. 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 He was seen by GI and had EGD and colonoscopy. EGD showed a healing ulcer which required intervention colonoscopy was unremarkable. He was then restarted on warfarin and decision was deferred to cardiology. He is accompanied by family we discussed risk benefit of starting warfarin. We discussed alternative treatment such as Watchman device. Patient would like to avoid procedure and is willing to restart warfarin. Per dr. Rivera 07/24/22 Pt states that he has chest pain 1-2 times a week and takes 2/3 extra strength aspirin and the pain stops, he feels like its on top of his pace maker. Numbness in thumb, index and middle finger. Dizzy feeling when he wakes up in the morning and sits on the end of the bed until it passes, then it gone for the day. he had epistaxis recently while on Coumadin and has since improved. he gets his INR checked once in 3 months and states its been in the 2-2.5 range. his sustained some falls and he has [facility]. Device check performed on 06/12/2022 shows thresholds to be good. he is in persistent A. Fib and underwent a single-chamber pacemaker. with Aspen Evian on 10/13/2021 and paced 65% Echocardiogram performed on 10/24/2021 showed EF of 55% with a dilated RV and mild biatrial dilatation with mild TR and mildly elevated RVSP of 39 mmHg HPI: 85 yo male presents to clinic as new pt from Dr Silva for concerns of newly noted bradycardia. He was seen by Lorri Henriquez and Holter ordered. Pt reports that he feels when his heart rate is slow because he feels dizzy and lightheaded, but denied any syncopal episodes. States he changes positions slowly and carefully. Since stopping BB, he has felt better but his BP has been higher. he is on lisinopril and recenty added Norvasc aftre BB was stopped. States he had a stress test about 12 years ago in [place], and was in hospital with noted a fib currently on coumadin anticoagulation. Echocardiogram performed on 11/30/2020 at [facility] shows an ejection fraction of 55% with a severely dilated left atrium and a moderately dilated right atrium there was evidence of mild MR trace aortic regurgitation and mild tricuspid regurgitation with a RVSP of 44 mmHg EKG 11/21/2020 shows evidence of A. fib with narrow complex QRS 24-hour Holter monitor that was placed on 21 November 2020 shows evidence of heart rates that varied from minimum 20 bpm to max 150 with an average of 56 patient was noted to be in A. fib the longest pause that was noted was a 3-second pause that occurred at 7:20 AM. There was evidence of ventricular couplets as well as isolated ventricular ectopics PMH: HTN, bradycardia, fatigue, atrial fib, CVA PSH: no cardiac FMH: maternal gnf- DM, father colon cancer Social: cigars- pipe- x 20 years quit 2006, Admits whiskey- most days, denied illicit drug use. PMH: Past Medical History: Diagnosis Date Atrial fibrillation (CMS/HCC) Hypertension Tachycardia-bradycardia (CMS/HCC) PSH: Past Surgical History: Procedure Laterality Date HERNIA REPAIR x2 INSERT / REPLACE / REMOVE PACEMAKER 10/13/2021 SH: Social Determinants of Health Tobacco Use: Medium Risk (11/06/2022) Patient History Smoking Tobacco Use: Former Smokeless Tobacco Use: Never Passive Exposure: Past Alcohol Use: Not on file Financial Resource Strain: Not on file Food Insecurity: Not on file Transportation Needs: Not on file Physical Activity: Not on file Stress: Not on file Social Connections: Not on file Intimate Partner Violence: Not on file Depression: Not on file Housing Stability: Not on file Allergies: No Known Allergies Weight: No results found for: PTWEIGHT Meds: Current Outpatient Medications on File Prior to Visit Medication Sig Dispense Refill amLODIPine (Norvasc) 5 mg tablet amlodipine 5 mg tablet TAKE 1 TABLET BY MOUTH EVERY DAY furosemide (Lasix) 40 mg tablet furosemide 40 mg tablet TAKE 1 TABLET BY MOUTH EVERY DAY lisinopril 20 mg tablet lisinopril 20 mg tablet TAKE 1 TABLET EVERY DAY omeprazole (PriLOSEC) [address] lindsay (more content not included)... [facility] 05-15-2023 Note Patient here for 3 m o follow up persistent afib and hypertension. Had echo in January 2023 after last apt. Scheduled for routine device interrogation in Jun 2023. Doing well with transition to warfarin, denies bleeding. C/o Richard horses in his LE at night. Denies chest pain, SOB, lightheadedness, and palpitations. Doing very well. Review of Systems HENT: Positive for hearing loss. Hematologic/Lymphatic: Bruises/bleeds easily. Musculoskeletal: Positive for arthritis, joint pain and muscle cramps. Neurological: Positive for numbness. All other systems reviewed and are negative. [facility] 02-18-2023 Note Stable -ct medications [facility] 02-18-2023 Note [id number]: at [facility] 3 for age and htn -restart warfarin, will follow coumadin clinic here at [facility] -is to report any concerns for bleeding -follow up in 2 months to discuss how he is doing -patient prefers to not consider watchmen if he does not have to [facility] 02-08-2023 Note Patient here for [facility] for GI bleed. He was discharged on 12/14 and coumadin was put on hold. Denies chest pain, SOB, and palpitations. Lost his recently. Review of Systems Musculoskeletal: Positive for arthritis, joint pain and muscle cramps. Neurological: Positive for numbness. All other systems reviewed and are negative. [facility] 02-08-2023 Note [place] Cardiology Consul t Note Reason for visit: Afib. S/p PPM HPI: Ry Lerner is a 87 y.o. 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 He was seen by GI and had EGD and colonoscopy. EGD showed a healing ulcer which required intervention colonoscopy was unremarkable. He was then restarted on warfarin and decision was deferred to cardiology. He is accompanied by family we discussed risk benefit of starting warfarin. We discussed alternative treatment such as Watchman device. Patient would like to avoid procedure and is willing to restart warfarin. Per dr. Rivera 07/24/22 Pt states that he has chest pain 1-2 times a week and takes 2/3 extra strength aspirin and the pain stops, he feels like its on top of his pace maker. Numbness in thumb, index and middle finger. Dizzy feeling when he wakes up in the morning and sits on the end of the bed until it passes, then it gone for the day. he had epistaxis recently while on Coumadin and has since improved. he gets his INR checked once in 3 months and states its been in the 2-2.5 range. his sustained some falls and [facility]. Device check performed on 06/12/2022 shows thresholds to be good. he is in persistent A. Fib and underwent a single-chamber pacemaker. with Aspen Evian on 10/13/2021 and paced 65% Echocardiogram performed on 10/24/2021 showed EF of 55% with a dilated RV and mild biatrial dilatation with mild TR and mildly elevated RVSP of 39 mmHg HPI: 85 yo male presents to clinic as new pt from Dr Silva for concerns of newly noted bradycardia. He was seen by Lorri Henriquez and Holter ordered. Pt reports that he feels when his heart rate is slow because he feels dizzy and lightheaded, but denied any syncopal episodes. States he changes positions slowly and carefully. Since stopping BB, he has felt better but his BP has been higher. he is on lisinopril and recenty added Norvasc aftre BB was stopped. States he had a stress test about 12 years ago in [place], and was in hospital with noted a fib currently on coumadin anticoagulation. Echocardiogram performed on 11/30/2020 at [facility] shows an ejection fraction of 55% with a severely dilated left atrium and a moderately dilated right atrium there was evidence of mild MR trace aortic regurgitation and mild tricuspid regurgitation with a RVSP of 44 mmHg EKG 11/21/2020 shows evidence of A. fib with narrow complex QRS 24-hour Holter monitor that was placed on 21 November 2020 shows evidence of heart rates that varied from minimum 20 bpm to max 150 with an average of 56 patient was noted to be in A. fib the longest pause that was noted was a 3-second pause that occurred at 7:20 AM. There was evidence of ventricular couplets as well as isolated ventricular ectopics PMH: HTN, bradycardia, fatigue, atrial fib, CVA PSH: no cardiac FMH: maternal gnf- DM, father colon cancer Social: cigars- pipe- x 20 years quit 2006, Admits whiskey- most days, denied illicit drug use. PMH: Past Medical History: Diagnosis Date Atrial fibrillation (CMS/HCC) Hypertension Tachycardia-bradycardia (CMS/HCC) PSH: Past Surgical History: Procedure Laterality Date HERNIA REPAIR x2 INSERT / REPLACE / REMOVE PACEMAKER 10/13/2021 SH: Social Determinants of Health Tobacco Use: Medium Risk (11/06/2022) Patient History Smoking Tobacco Use: Former Smokeless Tobacco Use: Never Passive Exposure: Past Alcohol Use: Not on file Financial Resource Strain: Not on file Food Insecurity: Not on file Transportation Needs: Not on file Physical Activity: Not on file Stress: Not on file Social Connections: Not on file Intimate Partner Violence: Not on file Depression: Not on file Housing Stability: Not on file Allergies: No Known Allergies Weight: No results found for: PTWEIGHT Meds: Current Outpatient Medications on File Prior to Visit Medication Sig Dispense Refill amLODIPine (Norvasc) 5 mg tablet amlodipine 5 mg tablet TAKE 1 TABLET BY MOUTH EVERY DAY furosemide (Lasix) 40 mg tablet furosemide 40 mg tablet TAKE 1 TABLET BY MOUTH EVERY DAY lisinopril 20 mg tablet lisinopril 20 mg tablet TAKE 1 TABLET EVERY DAY omeprazole (PriLOSEC) [address] capsule Take 40 mg by mouth in the morning. [DISCONTINUED] potassium chloride CR (K-Tab) 20 mEq ER tablet potassium chloride ER 20 mEq tablet,extended release TAKE 1 TABLET BY MOUTH EVERY DAY [DISCONTINUED] warfarin (Coumadin) 5 mg tablet warfarin 5 mg tablet TAKE 1 TABLET BY MOUTH DAILY DIRECTED PER COUMADIN CLINIC No current facility (more content not included)... [facility] 01-01-2023 Note [id number] Note [id number] [facility] 12-31-[address] [facility] SURGERY Clinical Discharge Summary PERSON INFORMATION Name RY LERNER Age 87 Years 1935 Sex MALE Language [place] PCP Ezequiel CHAMBERS, John Rodríguez Marital Status Med Service Ambulatory Surgery Acct# Arrival 12/31/2022 08:09:06 Visit Reason SURGERY - RIGHT CARPAL TUNNEL RELEASE Acuity LOS 039 21:33 Address: [address] [place] [address] Comment: PROVIDER INFORMATION VITALS INFORMATION Vital Sign Triage Latest Temp Oral Temp Temporal Temp Intravascular Temp Axillary Temp Rectal 02 Sat 100 % 100 % Respiratory Rate Peripheral Pulse Rate Apical Heart Rate Blood Pressure / 60 mmHg / 73 mmHg Comment: MEDICAL INFORMATION Allergy Info: No Known Medication Allergies Prescriptions Given: amLODIPine (amLODIPine 5 mg oral tablet) 1 tab(s) Oral every day. TAKE ONE TABLET BY MOUTH DAILY. furosemide (furosemide 40 mg oral tablet) 1 tab(s) Oral every day. TAKE ONE TABLET BY MOUTH DAILY. glucosamine (glucosamine hydrochloride 1500 mg oral tablet) 1 tab(s) Oral every day. lisinopril (lisinopril 20 mg oral tablet) 1 tab(s) Oral every day. multivitamin (Vitamin B Complex oral capsule) 1 cap(s) Oral 2 times a day. omeprazole (omeprazole 40 mg oral delayed release capsule) 1 cap(s) Oral every day. [place]'s wort (Lindsey's wort oral tablet) 1 tab(s) Oral 2 times a day. warfarin (warfarin 5 mg oral tablet) 1 tab(s) Oral every day. Medication List: Medications to Continue That Have Not Changed Other Medications amLODIPine (amLODIPine 5 mg oral tablet) 1 tab(s) Oral every day. TAKE ONE TABLET BY MOUTH DAILY. furosemide (furosemide 40 mg oral tablet) 1 tab(s) Oral every day. TAKE ONE TABLET BY MOUTH DAILY. glucosamine (glucosamine hydrochloride 1500 mg oral tablet) 1 tab(s) Oral every day. lisinopril (lisinopril 20 mg oral tablet) 1 tab(s) Oral every day. multivitamin (Vitamin B Complex oral capsule) 1 cap(s) Oral 2 times a day. omeprazole (omeprazole 40 mg oral delayed release capsule) 1 cap(s) Oral every day. [place]'s wort ([place]ong's wort oral tablet) 1 tab(s) Oral 2 times a day. warfarin (warfarin 5 mg oral tablet) 1 tab(s) Oral every day. Medications to Continue That Have Not Changed Other Medications amLODIPine (amLODIPine 5 mg oral tablet) 1 tab(s) Oral every day. TAKE ONE TABLET BY MOUTH DAILY. furosemide (furosemide 40 mg oral tablet) 1 tab(s) Oral every day. TAKE ONE TABLET BY MOUTH DAILY. glucosamine (glucosamine hydrochloride 1500 mg oral tablet) 1 tab(s) Oral every day. lisinopril (lisinopril 20 mg oral tablet) 1 tab(s) Oral every day. multivitamin (Vitamin B Complex oral capsule) 1 cap(s) Oral 2 times a day. omeprazole (omeprazole 40 mg oral delayed release capsule) 1 cap(s) Oral every day. Lindsey's wort ([place]'s wort oral tablet) 1 tab(s) Oral 2 times a day. warfarin (warfarin 5 mg oral tablet) 1 tab(s) Oral every day. Medications to Continue That Have Not Changed Other Medications amLODIPine (amLODIPine 5 mg oral tablet) 1 tab(s) Oral every day. TAKE ONE TABLET BY MOUTH DAILY. furosemide (furosemide 40 mg oral tablet) 1 tab(s) Oral every day. TAKE ONE TABLET BY MOUTH DAILY. glucosamine (glucosamine hydrochloride 1500 mg oral tablet) 1 tab(s) Oral every day. lisinopril (lisinopril 20 mg oral tablet) 1 tab(s) Oral every day. multivitamin (Vitamin B Complex oral capsule) 1 cap(s) Oral 2 times a day. omeprazole (omeprazole 40 mg oral delayed release capsule) 1 cap(s) Oral every day. Lindsey's wort (Lindsey's wort oral tablet) 1 tab(s) Oral 2 times a day. warfarin (warfarin 5 mg oral tablet) 1 tab(s) Oral every day. Comment: Lab and Radiology Results Laboratory or Other Results This Visit (last charted value for your 12/31/2022 visit) No Laboratory or Other Results This Visit DIET & ACTIVITY Patient Activity Level: Patient Diet: Patient Activity Restrictions: DISCHARGE INFORMATION Discharge Disposition: Discharge Location: DEPART REASON INCOMPLETE INFORMATION PATIENT EDUCATION INFORMATION Instructions: Juan- Post Op Carpal Tunnel (CUSTOM) Follow up: With: Address: When: MARJ PEREZ [address] [place] [address], [address] [place] [address] [facility] (1) 01/09/2023 11:00 AM DIAGNOSIS Carpal tunnel syndrome, right Comment: WINNIE GOTTI NOTES [facility] 12-31-2022 Note Procedure: Decompres mary of median nerve right wrist with release of carpal canal Pre Op Diagnosis: Carpal tunnel syndrome right Post Op Diagnosis: Carpal tunnel syndrome right Surgeon: Dr. Lisbet Martinez DO Anesthesia: Local Indication for Surgery: The patient had symptoms of carpal tunnel syndrome. There was evidence of progression. We discussed surgical and nonsurgical alternatives and the risks and benefits of each and the chances for success / failure. I recommended to proceed with surgery and the patient requested the same. Findings: The median nerve was noted to be present and intact within the carpal canal. The carpal canal/tunnel was stenotic Blood Loss: Scant Specimen: None Procedure Summary: The upper extremity was sterilely prepped and draped in usual fashion. A timeout was taken in the operating room. Infiltrated the incision site with 1% lidocaine with epinephrine the arm was exsanguinated and tourniquet inflated. A longitudinal incision was made over the carpal tunnel dissection was carried down beyond the palmaris longus and down to the transverse carpal ligament. Transverse carpal ligament was incised with a 15 blade and then released proximally and distally with a pair of Lopez scissors. I made sure that the nerve was completely decompressed as it exited the distal volar forearm fascia and traveled through the carpal tunnel and into the hand. The wound was irrigated with copious amounts sterile saline and the skin was closed with nylon suture. Margins of the incision were then infiltrated with half percent Marcaine. Adaptic sterile dressings and an Toan bandage were applied with the thumb in apposition Complications: None [Electronically Signed on: 12/31/2022 09:43 EDT] ___ Ward Martinez DO [Verified on: 12/31/2022 09:43 EDT] ___ Ward Martinez DO [facility] 12-25-2022 Note [id number] [facility] 12-12-2022 Note [id number] [facility] 12-10-2022 Note procedure: Decompres mary of median nerve left wrist with release of carpal canal Pre Op Diagnosis: Carpal tunnel syndrome left Post Op Diagnosis: Carpal tunnel syndrome left Surgeon: Dr. Lisbet Martinez DO Anesthesia: Local Indication for Surgery: The patient had symptoms of carpal tunnel syndrome. There was evidence of progression. We discussed surgical and nonsurgical alternatives and the risks and benefits of each and the chances for success / failure. I recommended to proceed with surgery and the patient requested the same. Findings: The median nerve was noted to be present and intact within the carpal canal. The carpal canal/tunnel was stenotic Blood Loss: Scant Specimen: None Procedure Summary: The upper extremity was sterilely prepped and draped in usual fashion. A timeout was taken in the operating room. I infiltrated the incision site with 1% lidocaine with epinephrine. The arm was exsanguinated and tourniquet was inflated to 250 mmHg. A longitudinal incision was made over the carpal tunnel dissection was carried down beyond the palmaris longus and down to the transverse carpal ligament. Transverse carpal ligament was incised with a 15 blade and then released proximally and distally with a pair of Lopez scissors. I made sure that the nerve was completely decompressed as it exited the distal volar forearm fascia and traveled through the carpal tunnel and into the hand. The wound was irrigated with copious amounts sterile saline and the skin was closed with nylon suture. I then infiltrated bupivacaine around the edges of the incision. Adaptic sterile dressings and an Toan bandage were applied with the thumb in apposition Complications: None [Electronically Signed on: 12/10/2022 15:46 EDT] ___ Ward Martinez DO [Verified on: 12/10/2022 15:46 EDT] ___ Wrad Martinez DO [facility] 12-10-[address] [facility] SURGERY Clinical Discharge Summary PERSON INFORMATION Name RY LERNER Age 87 Years 1935 Sex MALE Language [place] PCP Ezequiel CHAMBERS, John Rodríguez Marital Status Med Service Ambulatory Surgery Acct# Arrival 12/10/2022 13:13:28 Visit Reason SURGERY - LEFT CARPAL TUNNEL RELEASE Acuity LOS 019 02:57 Address: [address] [place] [address] Comment: PROVIDER INFORMATION VITALS INFORMATION Vital Sign Triage Latest Temp Oral Temp Temporal Temp Intravascular Temp Axillary Temp Rectal 02 Sat 100 % 100 % Respiratory Rate Peripheral Pulse Rate Apical Heart Rate Blood Pressure / 61 mmHg / 55 mmHg Comment: MEDICAL INFORMATION Allergy Info: No Known Medication Allergies Prescriptions Given: amLODIPine (amLODIPine 5 mg oral tablet) 1 tab(s) Oral every day. TAKE ONE TABLET BY MOUTH DAILY. furosemide (furosemide 40 mg oral tablet) 1 tab(s) Oral every day. TAKE ONE TABLET BY MOUTH DAILY. glucosamine (glucosamine hydrochloride 1500 mg oral tablet) 1 tab(s) Oral every day. lisinopril (lisinopril 20 mg oral tablet) 1 tab(s) Oral every day. warfarin (warfarin 5 mg oral tablet) 1 tab(s) Oral every day. Medication List: Medications to Continue That Have Not Changed Other Medications amLODIPine (amLODIPine 5 mg oral tablet) 1 tab(s) Oral every day. TAKE ONE TABLET BY MOUTH DAILY. furosemide (furosemide 40 mg oral tablet) 1 tab(s) Oral every day. TAKE ONE TABLET BY MOUTH DAILY. glucosamine (glucosamine hydrochloride 1500 mg oral tablet) 1 tab(s) Oral every day. lisinopril (lisinopril 20 mg oral tablet) 1 tab(s) Oral every day. warfarin (warfarin 5 mg oral tablet) 1 tab(s) Oral every day. Medications to Continue That Have Not Changed Other Medications amLODIPine (amLODIPine 5 mg oral tablet) 1 tab(s) Oral every day. TAKE ONE TABLET BY MOUTH DAILY. furosemide (furosemide 40 mg oral tablet) 1 tab(s) Oral every day. TAKE ONE TABLET BY MOUTH DAILY. glucosamine (glucosamine hydrochloride 1500 mg oral tablet) 1 tab(s) Oral every day. lisinopril (lisinopril 20 mg oral tablet) 1 tab(s) Oral every day. warfarin (warfarin 5 mg oral tablet) 1 tab(s) Oral every day. Medications to Continue That Have Not Changed Other Medications amLODIPine (amLODIPine 5 mg oral tablet) 1 tab(s) Oral every day. TAKE ONE TABLET BY MOUTH DAILY. furosemide (furosemide 40 mg oral tablet) 1 tab(s) Oral every day. TAKE ONE TABLET BY MOUTH DAILY. glucosamine (glucosamine hydrochloride 1500 mg oral tablet) 1 tab(s) Oral every day. lisinopril (lisinopril 20 mg oral tablet) 1 tab(s) Oral every day. warfarin (warfarin 5 mg oral tablet) 1 tab(s) Oral every day. Comment: Lab and Radiology Results Laboratory or Other Results This Visit (last charted value for your 12/10/2022 visit) No Laboratory or Other Results This Visit DIET & ACTIVITY Patient Activity Level: Patient Diet: Patient Activity Restrictions: DISCHARGE INFORMATION Discharge Disposition: Discharge Location: DEPART REASON INCOMPLETE INFORMATION PATIENT EDUCATION INFORMATION Instructions: Juan- Post Op Carpal Tunnel (CUSTOM) Follow up: With: Address: When: Ward Martinez [address] [place] [address] [address] [place] [address] Business (1) 12/18/2022 1:30 PM Type Location Start [facility] ([facility] Main OR 12/31/2022 7:30 AM 12/31/2022 8:00 AM Confirmed DIAGNOSIS Carpal tunnel syndrome of left wrist Comment: PHYS DOC NOTES [facility] 11-06-2022 Note Cardiology Clinic No te Subjective Ry Lerner is a 87 y.o. 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 He was last seen by Dr. Rivera on 07/24/2022. He has been doing okay, under a lot of stress as is in hospice. He had leg cramps several nights ago that recurred several times through the night. Xarelto was cost prohibitive so he is still on Warfarin. Patient Active Problem List Diagnosis Atrial fibrillation (CMS/HCC) Bradycardia History of CVA (cerebrovascular accident) Family History Family history unknown: Yes Social History Tobacco Use Smoking status: Former Types: Cigarettes Passive exposure: Past Smokeless tobacco: Never Substance Use Topics Alcohol use: Never Drug use: Never HPI: 85 yo male presents to clinic as new pt from Dr Silva for concerns of newly noted bradycardia. He was seen by Lorri Henriquez and Holter ordered. Pt reports that he feels when his heart rate is slow because he feels dizzy and lightheaded, but denied any syncopal episodes. States he changes positions slowly and carefully. Since stopping BB, he has felt better but his BP has been higher. he is on lisinopril and recenty added Norvasc aftre BB was stopped. States he had a stress test about 12 years ago in [place], and was in hospital with noted a fib currently on coumadin anticoagulation. Echocardiogram performed on 11/30/2020 at [facility] shows an ejection fraction of 55% with a severely dilated left atrium and a moderately dilated right atrium there was evidence of mild MR trace aortic regurgitation and mild tricuspid regurgitation with a RVSP of 44 mmHg EKG 11/21/2020 shows evidence of A. fib with narrow complex QRS 24-hour Holter monitor that was placed on 21 November 2020 shows evidence of heart rates that varied from minimum 20 bpm to max 150 with an average of 56 patient was noted to be in A. fib the longest pause that was noted was a 3-second pause that occurred at 7:20 AM. There was evidence of ventricular couplets as well as isolated ventricular ectopics 07/24/22 Pt states that he has chest pain 1-2 times a week and takes 2/3 extra strength aspirin and the pain stops, he feels like its on top of his pace maker. Numbness in thumb, index and middle finger. Dizzy feeling when he wakes up in the morning and sits on the end of the bed until it passes, then it gone for the day. he had epistaxis recently while on Coumadin and has since improved. he gets his INR checked once in 3 months and states its been in the 22.5 range. his sustained some falls and he has been [facility]. Device check performed on 06/12/2022 shows thresholds to be good. he is in persistent A. Fib and underwent a single-chamber pacemaker. with [employer] on 10/13/2021 and paced 65% Echocardiogram performed on 10/24/2021 showed EF of 55% with a dilated RV and mild biatrial dilatation with mild TR and mildly elevated RVSP of 39 mmHg Review of Systems Cardiovascular: Positive for chest pain. Negative for claudication, dyspnea on exertion, irregular heartbeat, leg swelling, near-syncope, orthopnea, palpitations, paroxysmal nocturnal dyspnea and syncope. Objective Visit Vitals BP 137/68 (BP Location: Left arm, Patient Position: Sitting) Pulse 60 Ht 1.829 m (6') Wt 102 kg (224 lb) SpO2 98% BMI 30.38 kg/m??? Smoking Status Former BSA 2.28 m??? Physical Exam General: Awake, alert, good spirits. NAD Neck: No elevated JVP. No carotid bruit Pulm: Breath sounds clear to ascultation bilaterally with no wheeze, crackles or rhonchi Cards: Irregular rate and rhythm, S1, S2. No S3 or S4 gallop. Murmur: none Abd: Soft, Nontender, physiologic bowel sounds are present Extr: Lower extremity edema: trace. Skin: warm, dry, well perfused Neuro: A&Ox3, No gross deficits Allergies No Known Allergies Medications Current Outpatient Medications: amLODIPine (Norvasc) 5 mg tablet, amlodipine 5 mg tablet TAKE 1 TABLET BY MOUTH EVERY DAY, Disp: , Rfl: furosemide (Lasix) 40 mg tablet, furosemide 40 mg tablet TAKE 1 TABLET BY MOUTH EVERY DAY, Disp: , Rfl: lisinopril 20 mg tablet, lisinopril 20 mg tablet TAKE 1 TABLET EVERY DAY, Disp: , Rfl: potassium chloride CR (K-Tab) 20 mEq ER tablet, potassium chloride ER 20 mEq tablet,extended release TAKE 1 TABLET BY MOUTH EVERY DAY, Disp: , Rfl: warfarin (Coumadin) 5 mg tablet, warfarin 5 mg tablet TAKE 1 TABLET BY MOUTH DAILY DIRECTED PER COUMADIN CLINIC, Disp: , Rfl: Recent Labs 08/16/2022 WBC 3.8, hemoglobin 10.8, hematocrit 33.2, platelets 160 Sodium 144, potassium 5, chloride 108, CO2 25.8, BUN 52, serum creatinine 1.78, GFR 44% Total cholesterol 166, HDL 42, LDL 110.4, triglycerides 68 Imaging and other tests ECHO (10/24/2021) 1. Normal LV systolic funct (more content not included)... [facility] 11-06-2022 Note Patient here for 4 m o follow persistent afib and hypertension. He is scheduled for device interrogation next month. Routine labs were done in Jul 2022. Xarelto was too expensive for him so he did not start it. Denies chest pain, SOB, and bleeding on warfarin. Review of Systems Musculoskeletal: Positive for arthritis, joint pain and muscle cramps. Neurological: Positive for numbness. All other systems reviewed and are negative. [facility] 07-24-2022 Note [place] Cardiology Consul t Note Reason for visit: Afib. S/p PPM HPI: 07/24/22 Pt states that he has chest pain 1-2 times a week and takes 2/3 extra strength aspirin and the pain stops, he feels like its on top of his pace maker. Numbness in thumb, index and middle finger. Dizzy feeling when he wakes up in the morning and sits on the end of the bed until it passes, then it gone for the day. he had epistaxis recently while on Coumadin and has since improved. he gets his INR checked once in 3 months and states its been in the 22.5 range. his sustained some falls and he has been in [facility]. Device check performed on 06/12/2022 shows thresholds to be good. he is in persistent A. Fib and underwent a single-chamber pacemaker. with [employer] on 10/13/2021 and paced 65% Echocardiogram performed on 10/24/2021 showed EF of 55% with a dilated RV and mild biatrial dilatation with mild TR and mildly elevated RVSP of 39 mmHg HPI: 85 yo male presents to clinic as new pt from Dr Silva for concerns of newly noted bradycardia. He was seen by Lorri Henriquez and Holter ordered. Pt reports that he feels when his heart rate is slow because he feels dizzy and lightheaded, but denied any syncopal episodes. States he changes positions slowly and carefully. Since stopping BB, he has felt better but his BP has been higher. he is on lisinopril and recenty added Norvasc aftre BB was stopped. States he had a stress test about 12 years ago in [place], and was inpt hospital with noted a fib currently on coumadin anticoagulation. Echocardiogram performed on 11/30/2020 at [facility] shows an ejection fraction of 55% with a severely dilated left atrium and a moderately dilated right atrium there was evidence of mild MR trace aortic regurgitation and mild tricuspid regurgitation with a RVSP of 44 mmHg EKG 11/21/2020 shows evidence of A. fib with narrow complex QRS 24-hour Holter monitor that was placed on 21 November 2020 shows evidence of heart rates that varied from minimum 20 bpm to max 150 with an average of 56 patient was noted to be in A. fib the longest pause that was noted was a 3-second pause that occurred at 7:20 AM. There was evidence of ventricular couplets as well as isolated ventricular ectopics PMH: HTN, bradycardia, fatigue, atrial fib, CVA PSH: no cardiac FMH: maternal gnf- DM, father colon cancer Social: cigars- pipe- x 20 years quit 2006, Admits whiskey- most days, denied illicit drug use. PMH: No past medical history on file. PSH: Past Surgical History: Procedure Laterality Date HERNIA REPAIR x2 INSERT / REPLACE / REMOVE PACEMAKER 10/13/2021 SH: Social Determinants of Health Tobacco Use: Medium Risk Smoking Tobacco Use: Former Smokeless Tobacco Use: Never Passive Exposure: Past Alcohol Use: Not on file Financial Resource Strain: Not on file Food Insecurity: Not on file Transportation Needs: Not on file Physical Activity: Not on file Stress: Not on file Social Connections: Not on file Intimate Partner Violence: Not on file Depression: Not on file Housing Stability: Not on file Allergies: No Known Allergies Weight: No results found for: PTWEIGHT Meds: Current Outpatient Medications on File Prior to Visit Medication Sig Dispense Refill amLODIPine (Norvasc) 5 mg tablet amlodipine 5 mg tablet TAKE 1 TABLET BY MOUTH EVERY DAY furosemide (Lasix) 40 mg tablet furosemide 40 mg tablet TAKE 1 TABLET BY MOUTH EVERY DAY ipratropium (Atrovent) 21 mcg (0.03 %) nasal spray USE 1 SPRAY IN NOSTRILS 4 TIMES A DAY NEEDED lisinopril 20 mg tablet lisinopril 20 mg tablet TAKE 1 TABLET EVERY DAY potassium chloride CR (K-Tab) 20 mEq ER tablet potassium chloride ER 20 mEq tablet,extended release TAKE 1 TABLET BY MOUTH EVERY DAY warfarin (Coumadin) 5 mg tablet warfarin 5 mg tablet TAKE 1 TABLET BY MOUTH DAILY DIRECTED PER COUMADIN CLINIC No current facility-administered medications on file prior to visit. ROS: Cardiovascular: Positive for chest pain and near-syncope. Physical Exam: Constitutional General Appearance: well-nourished, well-developed, appears stated age Level of Distress: comfortable Psychiatric Mental Status: alert, normal affect Orientation: oriented to time, place, and person Insight: good judgement Eyes Lids and Conjunctivae: non-injected, no xanthelasma ENMT Ears: no lesions on external ear Nose: no lesions on external nose Oropharynx: no cyanosis, no pallor Neck Neck: supple, trachea midline Carotid Arteries: bilateral normal upstroke, no bruits Jugular Veins: normal jugular venous pressure Thyroid: not enlarged Lungs Respiratory Effort: unlabored Chest Exam: normal curvature, no thoracic deformity Auscultation: clear, no wheezing, no rales, no rhonchi Cardiovascular Rate And Rhythm: regular Heart Sounds: normal S1, normal s2, no gallop Systolic Murmur: not heard Diastolic Murmur: not hea (more content not included)... [facility] 07-24-2022 Note Review of Systems Cardiovascular: Positive for chest pain and near-syncope. Pt states that he has chest pain 1-2 times a week and takes 2/3 extra strength aspirin and the pain stops, he feels like its on top of his pace maker. Numbness in thumb, index and middle finger. Dizzy feeling when he wakes up in the morning and sits on the end of the bed until it passes, then it gone for the day. Also has questions about medications [facility] 06-02-2022 Evaluation note Encounter Date Diagnosis Assessment Notes May, Contact with and (suspected) exposure to covid-19 (ICD-10 - Z20.822) May, COVID-19 (ICD-10 - U07.1) COVID PCR test performed in office today. Advised patient that test was positive. Influenza A/B PCR test negative. Instructed patient to isolate per CDC guidelines for 5 days from symptom onset, mask 5 days following. May return to work/activities outside home after isolation period as long as symptoms are improving and has been afebrile for 24 hours without use of antipyretic. Advised patient that treatment of COVID is with viral supportive care, OTC cold medications as directed, Tylenol/Motrin as needed for body aches/fever. Increase fluids and rest. Encouraged use of cool mist humidifier. Follow-up with PCP to advise of positive result and further management. Immediate eval for SOB, difficulty, chest pain, fevers that do not break with antipyretic or any other concerning symptoms as reviewed on patient education handout. Patient verbalizes understanding and is agreeable to treatment plan. Patient left in stable condition just.me Other [id number] History general Narrative - Reported* Type Description Date Medical History HYPERTENSION Medical History STROKE Medical History HEAD INJURY Surgical History PACEMAKER 10/13/2021 Surgical History HERNIA X 2 Surgical History TONSILECTOMY Hospitalization History SEE ABOVE just.me Other Evaluation + Plan note No data available for this section [facility] Future Appointments Appointment Date:08/27/2023 09:30:00 AM Scheduled Provider: Location:[facility] Appointment Type:FM Medicare Wellness Subsequent [facility] No data available for this section [facility] No data available for this section [facility] Summary Purpose Family History No Family History Records FoundNo Family History Records FoundNo Family History Records FoundNo Family History Records FoundNo Family History Records FoundNo Family History Records Found Advance Directives No Advanced Directives Records FoundNo Advanced Directives Records FoundNo Advanced Directives Records FoundNo Advanced Directives Records FoundNo Advanced Directives Records FoundNo Advanced Directives Records Found Additional Source Comments (unrecognized sect ion and content) No Status Records FoundNo Status Records FoundNo Status Records FoundNo Status Records FoundNo Status Records FoundNo Status Records Found INFORMATION SOURCE (unrecogn ized section and content) DATE CREATED AUTHOR 01/26/2022 [facility] DATE CREATED AUTHOR AUTHOR'S ORGANIZ ATION 04/25/2022 [facility] DATE CREATED AUTHOR AUTHOR'S ORGANIZ ATION 01/06/2023 [facility] DATE CREATED AUTHOR AUTHOR'S ORGANIZ ATION 01/06/2023 [facility] DATE CREATED AUTHOR AUTHOR'S ORGANIZ ATION 07/04/2023 [facility] DATE CREATED AUTHOR AUTHOR'S ORGANIZ ATION 08/28/2023 [facility] REASON FOR VISIT (unrecogniz ed section and content) SORE THROAT CONGESTION Patient Care team informatio n (unrecognized section and content) Personnel Name: Krissy ALEELeidy Address: Address: [address] [place] [address]- Personnel Name: Krissy ALEEMemedi Fifi Address: Address: [address] [place] [address]- FOR RECORDS PERTAINING TO PATIENTS WHO ARE OR HAVE BEEN ENROLLED IN A CHEMICAL DEPENDENCY/SUBSTANCEABUSE PROGRAM, SOME INFORMATION MAY BE OMITTED. This clinical summary was aggregated from multiple sources. Caution should be exercised in using it in the provision of clinical care. This summary normalizes information from multiple sources, and as a consequence, information in this document may materially change the coding, format and clinical context of patient data. In addition, data may be omitted in some cases. CLINICAL DECISIONS SHOULD BE BASED ON THE PRIMARY CLINICAL RECORDS. [facility] [employer] [facility]. provides no warranty or guarantee of the accuracy or completeness of information in this document.
--- NOTE | 2023-08-28 12:53 | XR_ITS ---
The [address] [address] Patient Name: THIERRY LERNER MRN: [id number] date: 1935 Sex: M Assigned Patient Location: [facility] Current Patient Location: [facility] Accession/Order Number: [id number] Exam Date: 08/28/2023 12:45 Report Date: 08/28/2023 17:00 At the request of: SHENG LAGOS Procedure: XR shoulder RT min 2V EXAM: XR cervical spine 5V, XR finger RT min 2V, XR shoulder RT min 2V HISTORY: neck pain COMPARISON: None. TECHNIQUE/FINDINGS: Cervical spine: There is osteopenia. There is deformity of the odontoid process. Due to the osteopenia, it is suboptimally evaluated. Given the history of trauma in June 2023, I would recommend CT chest for detailed evaluation of the cervical spine. There is diffuse loss of disc height with endplate spurring worst at C6-C7 with moderate to severe facet joint osteoarthritis. Right shoulder: High riding humeral head is seen with narrowing of the subacromial space suggestive of underlying rotator cuff tendinopathy/tear. 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 There is slight irregularity at the lateral margin of the right scapula. Patchy opacities are seen in the right lung with subsegmental opacification. This may be related to possible atelectasis/infection. Right thumb: 3 views of the right thumb were obtained. There is soft tissue swelling around the right thumb with slight cortical irregularity and periosteal reaction of the distal phalanx. XR/XR shoulder RT min 2V IMPRESSION: Cervical spine: 1. Slight irregularity of the odontoid with subtle lucency. Given the history of trauma I would recommend further evaluation with CT chest. 2. Moderate to severe diffuse degenerative changes worst at C6-C7. Right shoulder: 1. High riding humeral head is concerning for possible rotator cuff tendinopathy/tear. 2. 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 3. The visualized right lung shows emphysematous changes and multifocal patchy airspace disease. These may be related to reactive changes/chronic airway disease 4. Slight irregularity at the lateral margin of the right scapula. Need for further evaluation with CT/MRI of the right shoulder with attention to the right scapula can be determined clinically. Right thumb: 1. Soft tissue fullness at the distal aspect of the thumb. There is slight cortical irregularity at the distal phalanx. This may be secondary to a soft tissue mass/hematoma. If the patient has clinical mass, an ultrasound of the thumb can be obtained. 2. There is moderate osteoarthritis at the visualized first carpometacarpal joint, first and second metacarpophalangeal and at the interphalangeal joints and severe osteoarthritis is seen at the partially visualized third metacarpophalangeal joint. Electronically authenticated by: SANDRA MAGALLANES Date: 08/28/2023 17:00
--- NOTE | 2023-08-28 12:53 | XR_ITS ---
The [address] [address] Patient Name: THIERRY LERNER MRN: [id number] date: 1935 Sex: M Assigned Patient Location: [facility] Current Patient Location: [facility] Accession/Order Number: [id number] Exam Date: 08/28/2023 12:45 Report Date: 08/28/2023 17:00 At the request of: SHENG LAGOS Procedure: XR finger RT min 2V EXAM: XR cervical spine 5V, XR finger RT min 2V, XR shoulder RT min 2V HISTORY: neck pain COMPARISON: None. TECHNIQUE/FINDINGS: Cervical spine: There is osteopenia. There is deformity of the odontoid process. Due to the osteopenia, it is suboptimally evaluated. Given the history of trauma in June 2023, I would recommend CT chest for detailed evaluation of the cervical spine. There is diffuse loss of disc height with endplate spurring worst at C6-C7 with moderate to severe facet joint osteoarthritis. Right shoulder: High riding humeral head is seen with narrowing of the subacromial space suggestive of underlying rotator cuff tendinopathy/tear. 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 There is slight irregularity at the lateral margin of the right scapula. Patchy opacities are seen in the right lung with subsegmental opacification. This may be related to possible atelectasis/infection. Right thumb: 3 views of the right thumb were obtained. There is soft tissue swelling around the right thumb with slight cortical irregularity and periosteal reaction of the distal phalanx. XR/XR finger RT min 2V IMPRESSION: Cervical spine: 1. Slight irregularity of the odontoid with subtle lucency. Given the history of trauma I would recommend further evaluation with CT chest. 2. Moderate to severe diffuse degenerative changes worst at C6-C7. Right shoulder: 1. High riding humeral head is concerning for possible rotator cuff tendinopathy/tear. 2. 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 3. The visualized right lung shows emphysematous changes and multifocal patchy airspace disease. These may be related to reactive changes/chronic airway disease 4. Slight irregularity at the lateral margin of the right scapula. Need for further evaluation with CT/MRI of the right shoulder with attention to the right scapula can be determined clinically. Right thumb: 1. Soft tissue fullness at the distal aspect of the thumb. There is slight cortical irregularity at the distal phalanx. This may be secondary to a soft tissue mass/hematoma. If the patient has clinical mass, an ultrasound of the thumb can be obtained. 2. There is moderate osteoarthritis at the visualized first carpometacarpal joint, first and second metacarpophalangeal and at the interphalangeal joints and severe osteoarthritis is seen at the partially visualized third metacarpophalangeal joint. Electronically authenticated by: SANDRA MAGALLANES Date: 08/28/2023 17:00
--- NOTE | 2023-08-28 12:53 | XR_ITS ---
The [address] [address] Patient Name: THIERRY LERNER MRN: [id number] date: 1935 Sex: M Assigned Patient Location: [facility] Current Patient Location: [facility] Accession/Order Number: [id number] Exam Date: 08/28/2023 12:45 Report Date: 08/28/2023 17:00 At the request of: SHENG LAGOS Procedure: XR cervical spine 5V EXAM: XR cervical spine 5V, XR finger RT min 2V, XR shoulder RT min 2V HISTORY: neck pain COMPARISON: None. TECHNIQUE/FINDINGS: Cervical spine: There is osteopenia. There is deformity of the odontoid process. Due to the osteopenia, it is suboptimally evaluated. Given the history of trauma in June 2023, I would recommend CT chest for detailed evaluation of the cervical spine. There is diffuse loss of disc height with endplate spurring worst at C6-C7 with moderate to severe facet joint osteoarthritis. Right shoulder: High riding humeral head is seen with narrowing of the subacromial space suggestive of underlying rotator cuff tendinopathy/tear. 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 There is slight irregularity at the lateral margin of the right scapula. Patchy opacities are seen in the right lung with subsegmental opacification. This may be related to possible atelectasis/infection. Right thumb: 3 views of the right thumb were obtained. There is soft tissue swelling around the right thumb with slight cortical irregularity and periosteal reaction of the distal phalanx. XR/XR cervical spine 5V IMPRESSION: Cervical spine: 1. Slight irregularity of the odontoid with subtle lucency. Given the history of trauma I would recommend further evaluation with CT chest. 2. Moderate to severe diffuse degenerative changes worst at C6-C7. Right shoulder: 1. High riding humeral head is concerning for possible rotator cuff tendinopathy/tear. 2. 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 3. The visualized right lung shows emphysematous changes and multifocal patchy airspace disease. These may be related to reactive changes/chronic airway disease 4. Slight irregularity at the lateral margin of the right scapula. Need for further evaluation with CT/MRI of the right shoulder with attention to the right scapula can be determined clinically. Right thumb: 1. Soft tissue fullness at the distal aspect of the thumb. There is slight cortical irregularity at the distal phalanx. This may be secondary to a soft tissue mass/hematoma. If the patient has clinical mass, an ultrasound of the thumb can be obtained. 2. There is moderate osteoarthritis at the visualized first carpometacarpal joint, first and second metacarpophalangeal and at the interphalangeal joints and severe osteoarthritis is seen at the partially visualized third metacarpophalangeal joint. Electronically authenticated by: SANDRA MAGALLANES Date: 08/28/2023 17:00
== END 2023-08-28 12:25 | disposition home or self-care (01) ==
LOC: RAD 12:25
PROVIDERS: PCP Nurse Practitioner; Visit Provider Nurse Practitioner
DX: M54.2 Cervicalgia (principal); M25.511 Pain in right shoulder; M25.541 Pain in joints of right hand
CPT/HCPCS: 72050; 73030; 73140

== ENCOUNTER 2023-08-29 01:46 | Outpatient (RCR) | payer MEDICARE, SELFPAY | END 2023-09-26 17:26 | disposition home or self-care (01) | LOC: MM 01:46 | PROVIDERS: PCP Nurse Practitioner; Visit Provider Internal Medicine | DX: Z51.81 Encounter for therapeutic drug level monitoring (principal); Z79.01 Long term (current) use of anticoagulants; I48.91 Unspecified atrial fibrillation | CPT/HCPCS: 85610; G0463 ==

== ENCOUNTER 2023-08-30 07:42 | Outpatient (OUT) | payer MEDICARE, SELFPAY ==
--- NOTE | 2023-08-30 07:45 | CT_ITS ---
The [address] [address] Patient Name: THIERRY LERNER MRN: [id number] date: 1935 Sex: M Assigned Patient Location: CT Current Patient Location: CT Accession/Order Number: [id number] Exam Date: 08/30/2023 07:50 Report Date: 08/30/2023 08:58 At the request of: SHENG LAGOS Procedure: CT chest wo con EXAM: CT chest wo con HISTORY: Abnormal cervical spine and right shoulder plain from radiographs dated 08/28/2023. COMPARISON: CTA chest dated 08/18/2016. TECHNIQUE: Routine CT examination of the chest without intravenous contrast. 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 Moderate multivessel coronary artery calcification left main, left anterior descending and left circumflex coronary arteries. Mild aortic valvular calcification. 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 Stable moderate atheromatous calcification thoracic and abdominal aorta. Stable mild atheromatous calcification great vessels off the aortic arch and right subclavian artery. New mild atheromatous calcifications iliac trunk and new moderately severe atheromatous calcifications splenic artery. Borderline dilatation of the pulmonary trunk measuring 3.1 cm. Lungs: There are no emphysematous changes. There is minimal patchy parenchymal scar anteromedial within the right lower lobe. There is very mild atelectatic density at the left posterior costophrenic angle. There is no consolidation or infiltrate. There is no pleural effusion. There is no pneumothorax. Nodules: New 0.2 cm noncalcified nodule right lung apex (series 3 image 12). Stable 0.5 cm noncalcified nodule anterior medial right lower chest (series 3 image 70). Lymphadenopathy: There is a mildly enlarged 1.4 x 1.3 cm precarinal lymph node. Other: The trachea, esophagus and thyroid gland are unremarkable. Upper abdomen: Several hypodense lesions are again seen scattered within the liver, largest within the lateral segment of the left lobe measuring 2.0 cm (16 Hounsfield units) which most likely are cysts or hemangioma. The liver has a somewhat cirrhotic morphologic appearance. There is mild splenomegaly measuring 14 cm in AP dimension. There is no ascites. There is a 1.2 cm nodule projecting from the upper pole of the right kidney measuring 26 Hounsfield units which is higher attenuation than expected for a Bosniak 1 cyst. A kidney ultrasound examination is recommended. Osseous: There is patchy lucency and sclerosis within the left scapula with prominent trabeculation and cortical thickening favoring Paget's disease. There is widening of the interspace between the lateral aspect of the right seventh and eighth ribs. Stable less than 5% anterior wedging of the T12 vertebral body. Moderately severe discogenic degenerative changes at C6-7. The odontoid process was not included within the field of imaging to further assess the slight irregularity of the odontoid with subtle lucency described on the previous cervical spine series. There are paravertebral ossifications at numerous levels along the lower half of the thoracic spine and the upper lumbar spine. CT/CT chest wo con IMPRESSION: Minimal patchy parenchymal scar anteromedial right lower lobe and very mild atelectatic density left posterior costophrenic angle. There is a new 0.2 cm noncalcified nodule right lung apex (series 3 image 12) and a stable 0.5 cm noncalcified nodule anterior medial right lower chest (series 3 image 70). There is a mildly enlarged 1.4 x 1.3 cm precarinal lymph node. A follow-up CT examination of the chest in 3 months is recommended to confirm stability of the precarinal lymph node. 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 Atherosclerotic disease as otherwise described in the body the report. The pulmonary trunk is borderline prominent measuring 3.1 cm. Cirrhotic morphology of the liver and mild splenomegaly measuring 14 cm in AP dimension. There is no ascites. Several hypodense lesions are again seen scattered within the liver, largest within the lateral segment of the left lobe measuring 2 cm (16 Hounsfield units) which most likely are cysts or hemangioma. There is a 1.2 cm nodule projecting from the upper pole of the right kidney measuring 26 Hounsfield units which is higher attenuation than expected for a Bosniak 1 cyst. A kidney ultrasound examination is recommended. 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 Nonspecific widening of the interspace between the lateral aspect of the right seventh and eighth ribs. Stable less than 5% anterior wedging of the T12 vertebral body. Moderately severe discogenic degenerative changes at C6-7 The odontoid process was not included within the field of imaging to further assess the slight irregularity of the odontoid with subtle lucency described on the previous cervical spine series report. If clinically indicated, a CT examination of the cervical spine could be performed for additional evaluation. The examination was placed in the stat Call Queue for physician notification 08/30/2023 at 0857 hours. Electronically authenticated by: JULIA BEJARANO Date: 08/30/2023 08:58
--- OUTSIDE RECORDS SUMMARY | 2023-08-30 07:45 | XMS_ITS | CCD ---
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 Comment on above: Order Comment: Order Added by Ronnie Expert. Performed By: #### 2 869203, 78895132, 0502935, 9203322 ####[address] [address] Neutrophils/100 WBC (Bld) 66.8 % Normal 36.0-75.0 [facility] Comment on above: Order Comment: Order Added by Ronnie Expert. Performed By: #### 2 688202, 80773514, 3976797, 3857644 ####[address] [place] [address] Neutrophils/Leukocyte s Auto (Bld) [Pure # fraction] 2.5 E9/L Normal 2.0-7.5 [facility] Comment on above: Order Comment: Order Added by Discern Expert. Performed By: #### 2 342276, 61702937, 3656723, 3628163 ####[address] [place] [address] CBC w/ Auto Diffon 3 Erythrocyte distribution width (RBC) [Ratio] 14.1 % Normal 10.9-14.2 [facility] Comment on above: Performed By: #### 2 803646, 20962341, 4218704, 2276909 ####[address] [place] [address] Hematocrit (Bld) [Volume fraction] 29.2 % Low 37.7-49.0 [facility] Comment on above: Performed By: #### 2 772075, 52451357, 0686295, 0725793 ####[facility] [address] [place] [address] Hemoglobin (Bld) [Mass/Vol] 9.7 g/dL Low 13.5-17.5 [facility] Comment on above: Performed By: #### 2 593914, 17917929, 7704966, 6220315 ####[address] [place] [address] MCH (RBC) [Entitic mass] 32.2 pg Normal 27.0-34.0 [facility] Comment on above: Performed By: #### 2 908061, 53925633, 7535729, 7237767 ####[address] [address] MCHC (RBC) [Mass/Vol] 33.4 g/dL Normal 31.4-36.[address] [facility] Comment on above: Performed By: #### 2 135555, 02588676, 9120880, 8369224 ####[address] [address] MCV (RBC) [Entitic vol] 96.3 fL Normal 80.0-100.0 [facility] Comment on above: Performed By: #### 2 742912, 26292991, 6990692, 9817065 ####[address] [address] Platelet mean volume (Bld) [Entitic vol] 9.1 fL Normal 6.4-10.8 [facility] Comment on above: Performed By: #### 2 540171, 51824222, 0058085, 1275075 ####[address] [place] [address] Platelets (Bld) [#/Vol] 138.0 E9/L Low 150.0-500.0 [facility] Comment on above: Performed By: #### 2 339416, 13042648, 1253542, 5485094 ####[facility] [address] [place] [address] RBC (Bld) [#/Vol] 3.0 E12/L Low 4.3-5.9 [facility] Comment on above: Performed By: #### 2 021253, 11007454, 3304460, 4419090 ####[facility] [address] [place] [address] WBC corrected for nucl RBC Auto (Bld) [#/Vol] 3.8 E9/L Low 4.0-11.0 [facility] Comment on above: Performed By: #### 2 572425, 33471893, 8430958, 7982111 ####[address] [place] [address] Lyteson 01-22-2023 Anion gap [Moles/Vol] 15 mmol/L Normal 6-[address] [facility] Comment on above: Performed By: #### 2 124451, 63489315, 7119116, 7004244 ####[address] [place] [address] Chloride [Moles/Vol] 108 mmol/L Normal 101-111 [facility] Comment on above: Performed By: #### 2 470875, 96683060, 9240306, 6284794 ####[address] [place] [address] CO2 [Moles/Vol] 24 mmol/L Normal 21-31 [place] Comment on above: Performed By: #### 2 828652, 90489014, 1032049, 9699961 ####[address] [place] [address] Potassium [Moles/Vol] 4.8 mmol/L Normal 3.5-5.[address] [facility] Comment on above: Performed By: #### 2 514241, 05198303, 6384827, 5794856 ####[facility] [address] [place] [address] Sodium [Moles/Vol] 142 mmol/L Normal 135-145 [facility] Comment on above: Performed By: #### 2 307013, 17666939, 6418251, 3457293 ####[facility] [address] [place] [address] PT & PTTon 01-22-2023 aPTT Coag (PPP) [Time] 29.6 second(s) Normal 25.1-36.5 [facility] Comment on above: Result Comment: Para meter [...] the same coagulation reagent and instrumentation as [facility]. Currently there are no coagulation studies available worldwide for children to 14 days, and no normal ranges. Heparin therapeutic range (represented by Anti-Factor Xa activity of 0.2 - 0.4 U/mL) corresponds to PTT of 56.6 - 109.0 sec. Performed By: #### 2 313322, 74300222, 1692357, 4571877 ####[facility] [address] [place] [address] INR Coag (PPP) [Relative time] 1.1 {INR} Invalid Interpretation Code [facility] Comment on above: Result Comment: INR results are specifically intended to assess patients stabilized on long-term Anticoagulation therapy suggested INR?s ?Less Intensive Anticoagulation? 2.0 ? 3.0 Conventional Range 3.0 ? 4.5 Performed By: #### 2 244610, 75703028, 7926648, 8535946 ####[facility] [address] [place] [address] PT Coag (PPP) [Time] 12.2 second(s) Normal 9.4-12.5 [facility] Comment on above: Result Comment: 15 d [...] ranges were obtained from a study by belinda Connolly al. prepared from 1437 samples obtained at 7 different centers using the same coagulation reagent and instrumentation as [facility]. Currently there are no coagulation studies available worldwide for children to 14 days, and no normal ranges. Performed By: #### 2 312261, 42194020, 5015954, 0972006 ####[facility] [address] [place] [address] Coding Summaryon 01-01-2023 Coding Summary HTMLBase 64 IumntawzKGg2xYc+PGhl YWQ+EZ8JEJSeR27apWCg iC7dZ5PWNFhTCiraZAZZ QHrNFoLlvpCyOV2ngUJh ZXJu IC8+DN3cJGJjLpzilVYg b9L7rSH2G58rud2rPWyp yAK5HIIgNaQyaapfp9vk oIo2KXouXdblCpFt UCZshX67CYS7qB51Gi24 uOOdoXEtq7vyrMw6AgRt GLAdDUB2tImzDCshy5Ak DMGuK41erFZum8C5 IGNvbGxhcHNlOyBlbXB0 wO5mFGpsxuaro3wtafjq Wqh1bw19uLFxx7K8rOR1 M5UdfyQ1AUZnfNIy NrsurMUKqK1jxhsom0gz gryrGhCkDFBxLUu3SOm3 MUFybTaxSvQkLI98VLW7 LWJkipSjH4QdBFLw dCdkIyX3m7N4Ru3CL0XH GhwxQ1ZMIWZBYYvssGK+ AT92vi20R6KtCyssYlo8 DVJxWYT8fOF9fU7f PPZxECxso6L6aFK6A5Ru piAakb7cn0aoLFZePGhr B57hnNLzx1Z3UDYxnDK2 GNScgRccFjVpxS20 Oyc+VOByiJbrp8XkTjvd q7qlz9otnSn4TuleGFHg lnTpdYqkCCU1w4HqTm1u PZLmwDA7iND3jI3l OaMsXcU2QMjtJ162ZbGa pBSeRoesS98oM9AevVL+ UNDcRjl3EIRvdAypKG0j G1OwMLTbdqutlRWx zRmbIX2bOAYtabgaGVEt wC2rUUAkY1k6UmZaKoE2 EVbnD2UvAIXzylcbTx26 xY6vCoGnXuH2UAek H1IfvzQ9OTGyxZHwOGko KFD2Q14pw1A4DOPhTVFv YVN0cXX4pE6bwXxfysqg bGVmdDsgdmVydGlj SXgiTGhxQ269HWMmcBoe PkNvZGluZyBEYXRlOiAg MDYvMDYvMjAyMzwvdGQ+ ATDrDPB5xNrzHJOr aPRdBWluWz3aqQghaUtd TY1mWBAyqhiiTTGjvC7i JGSbtQDnkBllEX3qIFZo daekz170VhQcDBU0 LINkmRUtI2JieK9mEeSw JTSbQQGqZ7AodPPtXQhh K289CLcxSvX7PEGvnsLl A8KdZONmbIfcVsP9 l0S0Jp2Ne0RfpihfO4Rm hBTfUdKqFjrpSRi4L6Za PjwvdHI+BR97XYMcWQ04 VTm3PUB9zSszHDvi PVRiK9HjiH0gUcLrZLXz ZGRkOyc+PHRhYmxlIHdp ZHRoPScxMDAlJyBzdHls VP2iYg3nDPEnAGUm hUqtcIPvOqJxe3xyWFOq SRciSF0ocLbpN0EigIB3 SQKqj1q1El06K86cE7Ii dXA+YCNvjQR4rZS1 yE8oUwJpFyZ1MZvgZ060 FnMxgWPhOhebq3djl7de eUa4XtQ3GYYhfwGvdCwe NWO9d6StRx91P35r IHdpZHRoPSIxNSUiIHZh pFxyni0wsF6iKc2+PGNv iUA9aTI1fH1jEfFuApL5 WVdbG508AtRwoWZu Kulyd3ytk1lhdEm5WfTl KKShnkSzyBdtDDB5z2Gp Os55Q2FxmWrol3SwUng3 we27vIHag3M3jFF3 A8UyPMGeittkoKDhzZwz UC3aOHQgnurfZJXdeG2k XKDkD8j1BlOvJzW1CKgj E6BzesW9VKUouOTt NXMyvSEGrC0ykacbm9et rraoZeMqBJUmAFf8BJj5 DWQbbAygGdNdVWT3SnY1 HRO0sTQntW4umPkg ocohiC1mIko+QPN3fQVt aVFPDK9iNcodlMI+PHRk WMP6eBurJUeiJHGsgT5n DJBiO0c5QtWiWqO1 EPosO3JjpqR0WBMoqADi OYAtzMEThM1gnqqun5ow irbaFrCkJSAkGQz0XPr8 LWFsaWduOiBsZWZ0 SaL0GWY7kNFdoX0kbLui bwuywX1fQzl+QmlydGgg UUZ7ZYn1G5HcSpg3OYPw gLcfKS8pkOLrNTjj Yn7mwSneuIpsBE6yDHOs qlmtd462RmEqz9swIGRg xAJhIYuqBOT8N50ks8P0 YVFfWSBcKDX2mNH4 vD4agRmmzlxlnVCgcZkx hrNovLjdUIabHZioP575 ASWkxIckFbWxPIh7U0Qb Iyz7TBEqeSwxCA0p wYQrXUbmEj5tlIxajXxe CU6iFTRykpewp211VcTq g9qlIRKauZIyEAxfHRO8 S77ft0M6ZTOjBCZd ETO2lZH5xY6suGrdmhet bGVmdDsgdmVydGljYWwt YYuzF323FKOsoXxnYoZi jOj1G7QcWcm7YNNl eGumHJ5ohIZyREnlYf6x wEbxdIxoRD5wHIFfoorf i387QgAur2hbVYImeJRk EGkuWCE4A00qy9R2 SOJxUXTlVNJ1rYV5mI2c bGlnbjogbGVmdDsgdmVy mPinMRgjZGibY040MNJd cDsnPlBhdGllbnQg IQvsFJd2J2HzIrobpKX+ QF47RIQgKI52aQKamNNr m1xgvFq0IzLlAEZaJQG9 bRyxTEikh8TkWRBv B22ekIOxd7T8SMSufZox wOUlYwLfgIV5xI0zYWng oazjx6jbdwrhPotgg7cq nh25zS08B42tDTnn ZHRoPSIzMCUiIHZhbGln bt1unR3qFk2+PGNvbCB3 vVB3uK3yLVBbWwJ9JGdj K727FyUyaCIgXjbq s4yed5kvlTu6DrM5UJQu odEkaVauGLX5z8FbNk05 N01fEBnxDNQjTDIgBPIo WHJltBxmuc4rzG5n Ii8+GIIxtHC0sJB9zI4l OkGzVoR6VHhyW224QnMj fJEdHlchQ14pV9CxjSM+ NUAkUrz2YGItsCob RP9tnCXwZHjgGg3eEAX1 TlXqMdLkJGwcB7SbTLLl txklxgvasHP0TYWeMLKr oJ83Yf5giUcsQDTx vDEMrK3fspdbd3hjmgqq DpFcNGLgHGf3EQh6OPEi tMcgLfChJDK4GnM5MHG0 iHPicC1yzBodpiiu hZ7yZ4XzYQRzfsrmQf29 xA8pSoKmBbG8NTnbDsx+ KPdHJNRMKSMETUCKNV1M NYbRW37OUE44WA03 iGBzf0S5vZT4M3BcLXGd kwqlqaiehJN9BARhHMWq nX99iGReYVusXm3bq9B0 z987ITSxSLFkzL78 Lh2diSdzKYAwkJANlU4a xioxy6wmgjkoAjDdMPBy WNg4CJf3KJXtcAcyFkUm DLN2KyK3MEN4jXRv cO9erWqznkawsU5uAgn+ MDMvMDQvMTkzNTwvdGQ+ YUWiXAD8oIcsBZswDYNi mD8lZNVpO7q4QeBt PrC3QMkwD3QbSMZeexrf Lh45iC9jIaAwVyL7KBnl P7FcjoW3YZWgxUWkANcg UMB4S21ex6X7DGUr GZWfHNM7zWH2dT3xcUit bjogbGVmdDsgdmVydGlj GDsiIFstH786MPKsvNcm Vlu5GDsoPXQqVB10 QV21yFYvf7Q4fVB1B3Gs GDIabycyjsijwMV3KIPd EWIfkU70kCBnVChcGw8c o4K5f679OOAqIWQc jR43Pg4nhEsvWOZuhKRZ xP9jhjcla0svubyzDaDn CQIsYFt5BBp2SAQfqYyv TpIbHKG9KuQ4TAR6 wTQsaO9apMnxhawwtR9s Oyc+TUFMRTwvdGQ+PHRk WHX5xFukKVlcAHJogA2l EEAtB4f8ZbLsNqL0 YHjpB8RcQNCosuavXu67 lX5xUrHfHtD0IQwzV5Mi jlV5KJZnjTJhKDxoTOA9 N97hz8Q1PVFoMONm LDZ8hBE9wS4pvWfiybqh bGVmdDsgdmVydGljYWwt VFghD270QDOitYhlPcUv cHMOsOMxPRU9VA55 OD11C7AkJzksfYTceBX+ PHRhYmxlIHdpZHRoPScx AGBaJsRbmEmvRS4wXt9k ZGVyLWNvbGxhcHNl IhZva5fcXYFrMZitQX1x lVktO6VoiCD8PVLpm6t8 Na64K98jS6EzhRN+PGNv iWM1iTX1cH4wFjBe MuF0XDycP008NyDlnQYd Nhajm0otu8ikzRj2SpTw AQAwfgImjWynNEI9j6Wq Je93Q35jMPwyPRIv TKNcJYVyYYHneAkwve5e dA6gYn8+TLUfjXH6cWZ4 gH8xQzTsGnY2RMxeB947 UvDddOLsNogpV74o G9OotGZ+ZHCqPyy3HZJa bHgkYY9ssCUrDJrlDt6u MRH5HmOoMpYqTYprS7Em ZGRpbmctcmlnaHQ6 YMQtQBJmtT36Vg5nxJfp Mq6wFNEvRRS1HZJkmRXc H7AgpC1sVtXwWEAjNKXh L3PhhRGtUIgyX253 EPnyKuC0YJAomzDgY1Qs JVQfnUboSnJ3e5G4Xi2B sHrjiHLgLE8cYvQmRMv7 S6YgJtd6IZDawOau PR4uoJCpELwqZh0cjYlh hOlaOE8eNARapjdhl215 TwYuw5sxIIQgmMCuIDky ERN1Y18ml9P3CDFt KYOlROA6yTY5wA6cyGpi bjogbGVmdDsgdmVydGlj BXtgODkoW827ZLZykWqu NxBQMas8M4ScYvd1 LNRpiFigSH0daJErVPic Zq9hpEigcFfoMS7rZKPi brfmj217YaMmm6zwJOJr mAWkMMuaAUE3O68l x6X2PRNcAEKzSZX5yVP7 oS9uhKeqehxwwCUgsYrk eeCioUgeUGymVOzuA631 YJXfcFgiZj3OOav3 E4DbUcx9PFNsnVdpMH2u cVDwDCelZz2heQnvxOkf WY4fVVJtaohyd451YcJp z4olHIOikOCuSOpc JFU0Z25zq1F0JCMfJQHg BBG7nJB1aU5kzRihtdpc bGVmdDsgdmVydGljYWwt PBdfT341ZZBvvNks PlBheWVyOjwvdGQ+PC90 ps33X2KoMacbImr3GNSt WII7oYT9hS1bUMRhHGpo w6O3yOS0C4WhpbQm ci1 (more content not included)... [facility] Consent Formson 01-01-2023 Consent Forms [id number] #1.00OTGTIFF [facility] Inpatient Patient Summaryon 12-31-2022 Inpatient Patient Summary [address] [place] [address] Patient Discharge Instructions Name: RY ELRNER : 1935 Patient Address: [address] [place] [address] Primary Care Provider: Name: John Nieves MD After you are discharged if you find you have any questions, please, call [phone] ext [phone] to speak to a nurse. Discharge Diagnosis: Carpal tunnel syndrome, right Prescription Information: If you have been given a prescription for narcotics, seek immediate medical attention if you have any difficulty breathing or any sudden status changes such as confusion and sleepiness. If you or anyone you know is experiencing suicidal thoughts, mental health, alcohol and/or drug addiction problems; contact the [facility] 18/02 Crisis Hotline -Text 4HOPE to 438386. If you received any narcotics, sedation, or [...] business decisions or sign any legal documents [facility] would like to thank you for allowing us to assist you with your healthcare needs. The following includes patient education materials and information regarding your injury/illness. RY LERNER has been given the following list of follow-up instructions, prescriptions, and patient education materials: Follow-up Instructions With: Address: When: MARJ PEREZ [address] [place] [address], [address] [place] [id number] Business (1) 01/09/2023 11:00 AM Medications During [...] release capsule) 1 cap(s) Oral every day. Niangua's wort (Niangua's wort oral tablet) 1 tab(s) Oral 2 [...] release capsule) 1 cap(s) Oral every day. Niangua's wort (Lindsey's wort oral tablet) 1 tab(s) [...] 3. DO NOT lift heavy objects or production grip forcefully with your hand 4. Change your [...] or concerns, please call the office at [phone] 7. Follow up as scheduled Viruses or Bacteria What?s got you sick? Antibiotics only treat bacterial infections. Viral illnesses cannot be treated with antibiotics. When an antibiotic is not prescribed, ask your healthcare professional for tips on how to relieve symptoms and feel better. Usual Cause Illness Viruses Bacteria Antibiotic Neede (more content not included)... Normal [facility] Lab Reportson 12-31-2022 Lab Reports [id number] #1.00CD:127 Normal [facility] MAGR Intraoperative Recordon 12-31-2022 MAGR Intraoperative Record MAGR Intra-Op Record Summary Primary Physician: Ward Martinez DO Finalized Date/Time: 12/31/22 11:56:55 Pt. Name: RY LERNER/Sex: 1935 MALE Med Rec #: [id number] Physician: Ward Martinez DO Financial #: [id number] Pt. Type: D Room/Bed: / Admit/Disch: 12/31/22 [...] RN, DO Role Performed Surgeon - Primary Wellness Ambassador Wellness Ambassador Time In 12/31/22 09:15:00 12/31/22 09:15:00 12/31/22 09:15:00 Time Out 12/31/22 09:37:00 12/31/22 09:46:00 12/31/22 09:46:00 Procedure Carpal Tunnel Carpal Tunnel Carpal Tunnel Release(Right) Release(Right) Release(Right) Last Modified By: [place] PERSAUD, Chelita Borjas RN, Chelita Mc RN 12/31/22 09:49:26 12/31/22 09:49:26 12/31/22 09:49:26 Entry 4 Entry 5 Case Attendee Lavern Vasques Kelly ACADEMIC SUPPORT COORDINATOR ACADEMIC SUPPORT COORDINATOR Role Performed Roll Icer Scrub Personnel Time In 12/31/22 09:15:00 12/31/22 [...] Primary Procedure Yes Primary Surgeon Ward Martinez Right Riki DO Surgeon Comment RIGHT CARPAL TUNNEL Start [...] By Chelita Borjas RN Scrub 10% Povidone-Iodine [place] Prep Area (Im.270) Elbow and forearm, Prep Area Details Right Hand, Wrist Skin Prep Agent Dry Yes Without Pooling Hair Removal Syntegrity Hair Removal Methods No hair removal performed Outcome Met (O.100) Yes Last Modified By: Chelita Borjas RN 12/31/22 11:55:12 Pos (more content not included)... [facility] MAGR Preoperative Record MAGR Pre-Op Record Summary Primary Physician: Ward Martinez DO Finalized Date/Time: 12/31/22 09:13:14 Pt. Name: RY LERNER/Sex: 1935 MALE Med Rec #: [id number] Physician: Ward Martinez DO Financial #: [id number] Pt. Type: D Room/Bed: / Admit/Disch: 12/31/22 [...] consent correct. General Comments: pt arrives to W ambulatory. denies CP,cough,cold, COVID like symtpoms. denies diabetes, pt has pacemaker,denies sleep apnea. pt verbalizes understanding of post op instructions Finalized By: Vicky Ponce RN Document Signatures Signed By: Vicky Ponce RN 12/31/22 09:13 [facility] Patient Handouton 12-31-[address] 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 Keep your hand elevated above your elbow for the first 24 hours after surgery 2. Wiggle your fingers frequently while awake 3. DO NOT lift heavy objects or production grip forcefully with your hand 4. Change your [...] or concerns, please call the office at [phone] 7. Follow up as scheduled [facility] Physician Referralon 023 Physician Referral [id number] 1#1.00CD:127 [facility] Living Will/POAon 12-26-2022 Living Will/POA [id number] #1.00CD:127 Normal [facility] CBC AUTO DIFFon 12-25-2022 BASO # 0.0 103/ul Normal 0.0-0.1 Comment on above: Performed By: #### C BC #### [facility] [address] [address] [address] Rashmi Nolan Basophils/100 WBC (Bld) 0.6 % Normal 0.2-2.0 Comment on above: Performed By: #### C BC #### [facility] [address] [address] [address] Rashmi Nolan EO # 0.2 103/ul Normal 0.0-0.7 Comment on above: Performed By: #### C BC #### [facility] [address] [place] [address] Dr. Rashmi Nolan Eosinophils/100 WBC (Bld) 6.9 % Normal 0.9-7.0 Comment on above: Performed By: #### C BC #### [facility] [address] [address] [address] Rashmi Nolan Erythrocyte distribution width (RBC) [Ratio] 14.0 % Normal 11.0-15.0 Comment on above: Performed By: #### C BC #### [facility] [address] [place] [address] Dr. Rashmi Nolan Hematocrit (Bld) [Volume fraction] 29.8 % Critically low 42.0-54.0 Comment on above: Performed By: #### C BC #### [facility] [address] [address] [address] Rashmi Nolan Hemoglobin (Bld) [Mass/Vol] 9.8 g/dL Critically low 14.0-18.0 Comment on above: Performed By: #### C BC #### [facility] [address] [place] [address] Dr. Rashmi Nolan IG # 0.02 10e3/ul Normal 0.00-0.03 Comment on above: Performed By: #### C BC #### [facility] [address] [place] [address] Dr. Rashmi Nolan IG % 0.6 % Critically high 0.0-0.5 [facility] Comment on above: Performed By: #### C BC #### [facility] [address] [place] [address] Dr. Rashmi Nolan LYMPH # 0.8 103/ul Critically low 1.2-3.8 [facility] Comment on above: Performed By: #### C BC #### [facility] [address] [place] [address] Dr. Rashmi Nolan Lymphocytes/100 WBC (Bld) 25.1 % Normal 20.5-60.0 Comment on above: Performed By: #### C BC #### [facility] [address] [place] [address] Dr. Rashmi Nolan MANUAL DIFF REQ NO Normal [facility] Comment on above: Performed By: #### C BC #### [facility] [address] [place] [address] Dr. Rashmi Nolan MCH (RBC) [Entitic mass] 33.0 pg Normal 25.9-34.0 Comment on above: Performed By: #### C BC #### [facility] [address] [place] [address] Dr. Rashmi Nolan MCHC (RBC) [Mass/Vol] 32.9 g/dL Normal 29.9-35.2 Comment on above: Performed By: #### C BC #### [facility] [address] [place] [address] Dr. Rashmi Nolan MCV (RBC) [Entitic vol] 100.3 fL Critically high 80.0-94.0 Comment on above: Performed By: #### C BC #### [facility] [address] [place] [address] Dr. Rashmi Nolan MONO # 0.3 103/ul Normal 0.3-0.8 Comment on above: Performed By: #### C BC #### [facility] [address] [address] [address] Rashmi Nolan Monocytes/100 WBC (Bld) 9.6 % Normal 1.7-12.0 Comment on above: Performed By: #### C BC #### [facility] [address] [address] [address] Rashmi Nolan NEUT # 1.9 103/ul Normal 1.4-6.5 Comment on above: Performed By: #### C BC #### [facility] [address] [address] [address] Rashmi Nolan Neutrophils/100 WBC (Bld) 57.2 % Normal 43.0-75.0 Comment on above: Performed By: #### C BC #### [facility] [address] [place] [address] Dr. Rsahmi Nolan Platelet mean volume (Bld) [Entitic vol] 10.5 fL Normal 9.5-13.5 Comment on above: Performed By: #### C BC #### [facility] [address] [address] [address] Rashmi Nolan PLT 129 103/ul Critically low 150-450 [facility] Comment on above: Performed By: #### C BC #### [facility] [address] [address] [address] Rashmi Nolan RBC 2.97 106/ul Critically low 4.70-6.10 [facility] Comment on above: Performed By: #### C BC #### [facility] [address] [address] [address] Rashmi Nolan WBC 3.3 103/ul Critically low 4.0-11.0 [facility] Comment on above: Performed By: #### C BC #### [facility] [address] [address] [address] Rashmi Nloan PROTIMEon 12-25-2022 INR Coag (PPP) [Relative time] 1.03 {INR} Normal [facility] Comment on above: Performed By: #### B MP #### [facility] [address] [place] [address] Dr. Rashmi Nolan INR GUIDELINES SEE BELOW Normal [facility] Comment on above: Result Comment: ENOC RED INR: 2.0 - 3.0 CONDITIONS NOT LISTED BELOW 2.5 - 3.5 FOR PROSTHETIC HEART VALVE REPLACEMENT 2.5 - 3.5 RECURRENT THROMBOSIS Performed By: #### B MP #### [facility] [address] [place] [address] Dr. Rashmi Nolan PT Coag (PPP) [Time] 10.9 s Normal 9.0-11.6 [facility] Comment on above: Performed By: #### B MP #### [facility] [address] [place] [address] Dr. Rashmi Nolan PTTon 12-25-2022 aPTT Coag (Bld) [Time] 25.6 s Normal 22.3-36.2 Comment on above: Performed By: #### C BC #### [facility] [address] [place] [address] Dr. Rashmi Nolan Ambulatory Visit Summaryon 0 [...] 20 mg Tab) omeprazole (omeprazole 40 mg Tal-DR) warfarin (warfarin 5 mg Tab) Procedures Performed [...] numbers. This can be done either in [place] ([place] or metric measurements. Note that charts and online BMI calculators are available to help you find your BMI quickly and easily without having to do these calculations yourself. To calculate your BMI in [place] ([place] measurements: 1. Measure your weight in [...] ? (more content not included)... Normal [facility] Family Medicine Office/Clini c Noteon 12-21-2022 Family Medicine Office/Clinic Note Chief Complaint Hospital stay follow up HPI Staff Presents for hospital follow up [facility] 12/11-12/14 bleeding ulcer/bloody stools Had Upper and lower scope done. found diverticulosis and bleeding ulcer. Questions/concerns: eczema, why needs to stay on Lasix, why taken off warfarin when to start back up. History of Present Illness pt presents today fro follow up for admission to [facility] for GI bleed Review of Systems [...] today for follow up from admission to [facility] for GI bleed. he received 2 units of blood. and had egd and colonsocopy that show a gastic ulcer and diverticulosis. he was cleared by GI yesterday. he remains off of his warfrin for now. Dr. Silva spoke to Dr. Black ([facility] mobile [employer] installer) and he was ok with keeping him [...] 90 cap(s), Refills(s) 3, Pharmacy: [id number], 178.5, cm, 12/21/22 13:08:00 EDT, Height/Length Dosing, 97.4, [...] Recorded influenza, whole 05/29/2005 Recorded Normal [facility] Comment on above: Result Comment: Elec tronically Signed By: Leidy Simms\.br\Date and Time Signed: 12/21/22 15:03 EDT [...] numbers. This can be done either in [place] ([place] or metric measurements. Note that charts and online BMI calculators are available to help you find your BMI quickly and easily without having to do these calculations yourself. To calculate your BMI in [place] ([place] measurements: 1. Measure your weight in [...] for Disease Control and Prevention: www.cdc.gov ? [place] [employer]: www.heart.org ? National Heart, Lung, and [employer] [place]: www.nhlbi.nih.gov Summary ? Body mass index (BMI) is a number that is calculated from a person's weight and height. ? BMI may help estimate how much of a person's weight is composed of fat. BMI can help identify those who may be at higher risk for certain medical problems. ? BMI can be measured using [place]ic measurements or metric measurements. ? BMI charts are used to identify whether you are underweight, normal weight, overweight, or obese. This information is not intended to replace advice given to you by your health care provider. Make sure you discuss any questions you have with your health care provider. Document Revised: 04/06/2020 Document Reviewed: 02/12/2020 [employer] Patient Education ? 2022 [employer]. [facility] Coding Summaryon 12-19-2022 Coding Summary HTMLBase 64 IpzfoaypDPw8bRd+PGhl YWQ+MH2IOAXqI00noSFj iC2dP2BGOJeKGqtcACXZ UXsFXwMachAfWH6rhJIk ZXJu IC8+XF9fLMYsHobzxDNx d1W6lUQ5P65fay1mUXzw sFT0DTLaFiXqdmtzp2dw zUr8TZolZhlgEnBl IEKgjK55YDT1zC30Un82 nAVznEBbk3zycEj0GlUo BKBcYJK1uRhyNWexp5Si ZNWxA07wwTAtz3H5 IGNvbGxhcHNlOyBlbXB0 qG0sJJzuandox9ynpzvw Aqu7kg03gFKre3S9aUH0 P5JhtrO2LIZcnZRi ZqadiOHKxE3dopnad8lz yrxzMoOqOYQvMDt8ZRy0 QJHcxAwtUqXpSM60BLL2 AIMpmmFzT1AlHMAt rLpcUlQ3a0K6Qj7YU4AL QbzxV7YXJUKEYNgzhJN+ EF62in38D5OyAxaxTlb4 JJCgJIW9fOK8eA7x LHRnEDqrr1W0jPR9V2Wb nyYusc2ul1alCQAjRZsj X01gkNUel1F5OZUucCI6 IILrzVfaJlJwsK58 Oyc+ONWpfTlps0AtXqyj t3bkt2ertYz0QcjiDLWn mgHqzQhdCPT0c9BbWb7j ZIXoeFX6kTE3cA8i LtKpUqV0PRywG981UpMh cGBwPzukA66bI3XrnSK+ TAImWfq9TWUxyAplOI6b K5TfKXAtoujazWCo kTjyLH5eAPDvjvchTCCt mE2jFLAeR9c1HdFuVaK9 VQsrK5ZpEPAovpxaMi92 fD0bFpBbTrN2UEyq F4DmdeK4WSXaeCIaAMes EHI3M60rl3T3MOWlOXAv QBK3oNH7hH0pfHtkgeok bGVmdDsgdmVydGlj MOupJMqzU527SZAzgBtk PkNvZGluZyBEYXRlOiAg MDUvMjQvMjAyMzwvdGQ+ SPQyHVX4zMakRKSd nVDnOMswOt7nuBcojOsg IR1cXEFslkpkWJQkyP6d XRKrfAXamEmiCH9qWIOz vpvbd764DgArPYA1 LAXpiBMdI1EagR0pNfCy GCJeUYFxM1MfxXQdAIhs J824NTeuVbH4GTYezoNq D3LaSKObhOjvNqT3 j1P5Uv2Kw8MffiolI8Ir xIEpCtTbPoqnKNx9O5Jw PjwvdHI+RE46OYTdYN19 WGj4QJW8uHsuZFlf ROLaR7PyvW5uPoFvKDUw ZGRkOyc+PHRhYmxlIHdp ZHRoPScxMDAlJyBzdHls CY5wYq9jBYDfHYPj fZjzxNNoNzEdz3yfRIKf LRxcKS9vxMprO3PyhSO6 DKZzo0d0Ar35C66rS3Co dXA+YPLenWU5sHM2 eG5gMpMvTxV6RZskH817 WpFkyENbQutnl5uor6so rEb3PzI7LMYsgnDqvHpb BAD4s4KyTu51L52w IHdpZHRoPSIxNSUiIHZh cYlnqq8cpN9eVl6+PGNv yUT8nFJ3mY2vEzRdTkN5 LXkfN281CjKkpAXr Jhuic0qvr6xcrHc5TnIg WCFoxnKqyUjtPWR2i3Xw Im97E5IjbOwsw4TdIhx6 jq80wDCqy4R5dSB9 V1PdDBOiptdruAPwcHsw IJ1sZOJmetpdGBOtrJ8p TGIaF8r0DpEqIlX7UAfd E7MxvhK5FEZmsFUa TXPxtTOBsS9cvjbsu1wl evtzOePbPMFeUPg2VUq9 DPRkiWegQkIfWNJ9GkK0 WQB9qCHxlT8xsMmk htmmmA7qSqa+ENH2tGMj vIUSWU4rHxuohLK+PHRk VAY2aHinYWpkQMHolM3u VKArL2w0WfUsLwA0 IUciO4HhdyV9HQTepJCv RQZxkIKIvO6tlzjax3md lcqjEzCnZEVfQJn4HOf4 LWFsaWduOiBsZWZ0 ZbH6BGC5cHJmeB1xlHgy ttcziM6wIdj+QmlydGgg XJU2SUw7J3KhTxv1NPUy uHmxXE6pjOFiHMzd Uz7tdNrunWjwNZ4fYPJx tlbro395ThEww4mgSWKe pDMjZVddOGT2Y68wt8P5 SNChMAStKFN6oQN1 bA9vvLcdhfnxyXEwsBff bjGljUdfFIhoQCrqJ264 NLBifJmrVsYoUHc6W8Yd Ibw0SWDfoFdbEQ7d sCWiQGtaDj6cyThykIil OX3dXQGfkodfy826HxVt c1cvEWIjhZRjOYjiSMO3 X81wu6P2YEZmDMHl HYB3sXB6eA9uaJqzokqa bGVmdDsgdmVydGljYWwt BJzrB419PWDlfAhbQgYz wOv0U1XjQll4BVIq vHrsYF3zuQFyJXkfQq8w rWjfuEvzJO6dWLBvzspa m235IhVsd1osQASpoPQv QAzdMOZ5T69qx1P2 GVXbNFIxJQM1hUV3oT4e bGlnbjogbGVmdDsgdmVy yMqcYMcdOYtdB247RYVn cDsnPlBhdGllbnQg NYtdANw1I5SzFkahiHZ+ UZ76VOAnPF98wUJfrZNy u4mqxXf2KjAfKOQtHJY1 mGwcYZnof2EzMRMd W44jsMSym0W6DKNhzDwh wTRwYeUieQE0hL3oWLzw xyzfe1bdcxqhLfzkz5eb bc12aE79N11iLEuw ZHRoPSIzMCUiIHZhbGln yv2zxB7nYz6+PGNvbCB3 eFO2jK5hKLEhOpJ9AHke P017RpXidBVcJprz m3jzt8hklVk7JkF5MTQj itKxtQoaQFA7d3JsTy08 D62zHUqdQTVeTFRtYEYj ADAyeTppym4spC9h Ii8+NXIauLA4aUB4sQ9m JcMzFtV5IZhtD720MvZp oBNkVphcE33rI6QwkYG+ ZPQqOez8EMKqsTgo ZK2rkWCnSTnoNn7kLLQ2 OxFpDkDdEXpqO5AcVQHn jqbsvghdgQJ2NQMjLDMf pX13Vk2sxJrdJERb qMWNlP6dalpct9gfakwd CwEmSTYkMUz7ZYy3YMPa uPlpGpBkSFF4JhV9ROJ0 rKHnnS4dkTdiajmd nQ2aO3WrINVfdsotHy74 dC6cYtAjQfC3REyeVzd+ PYtXRVZNUXLGFPPXDV4V GBxLR93IXO47HP67 nPDin8A5rUB4S4UuOXTj dsqqrvounFK8JSJhZOZh oV09wRItIYlvRp2ed7T2 p592OVTqXMCqkX44 Ft0snNkhRUCmfZLKrP7b jplla0wftezaStCmMXOh SWu4VJt6NITfvMbzPzNy QEU5VwU4UVA6jWDh tM0knJheuqivzN2bGug+ MDMvMDQvMTkzNTwvdGQ+ IGHfPEP6iEjoGSfaTMLg dK9kHXJcZ4a5AtRf YeJ6KYdeT0JbSKUetmsg Tr97fE8yNbMmJcS7GOhy F0ZtlnM0HXFftGCtROcd QLL6Q61ar8I9QRVv EXLmKHX9kSM5uS2gtNnw bjogbGVmdDsgdmVydGlj TPsoSMnkI073QPRbxWcw Tsq9TIzhQETlZS04 VB90bFXhg5F4eXG1H9Mb QOCjysjnegcfkPZ9ICLt QHMcmH69kHClBXclFk4r m6S7u515WWJyJVTv uP36Kh2ijDmvMJPpoAWS bN4okxwui0dsimwoMpMz UFGaONt8GFx8UQTbvLsp TkSsKTU4UtO0IKK9 oBZzcH5vrAenzamcsA8j Oyc+TUFMRTwvdGQ+PHRk IIM6wNheALgxYXAqgZ6p PZBiG9p8LdFeSfF0 SPagP3UbCNMmodbgAx43 eK0zYkVjTjM8TGuwF6Js zpP4XZMtmRFeFHajDFS5 G54uw2F0OLWwVJVt RUY7kPS6bL9ltAbxunjs bGVmdDsgdmVydGljYWwt NTkqH130GLJcxMqrIoIx kWMLkQNsCHB1GE40 GW32S6XyKdokmBWydDS+ PHRhYmxlIHdpZHRoPScx XYDhFkUzhAoeJK1sSo5h ZGVyLWNvbGxhcHNl CkOal9wlQPQtZWjqNW2e qDqvS8NawIU6PXMfb0o6 Hv98Q18wZ1TllLA+PGNv nOJ2nHN8mX8wDhYk MaE1TYqgF877TkUpwCOw Pzvjr1iap0bfyXq0KlDd VLZdgxFxuXueGEM5x7Mq Be87X26hHShtLLAd PUOsDCTmPTAreYmpgi4m pT5xFw7+FIItcVB0kWR3 yD8dTrCfJgX0ALzfC009 PcNzsRCkXinhV57e W4HfmRX+KXFgSpj6QYGi rBidKE2suUCyIIrrXs5d USK5IzCkFfDfIMudV0Se ZGRpbmctcmlnaHQ6 WFVxBDJscY78Bm0gwUpr Zv6aZHAxGAA2UAJkjRTr M4WyzH3eJcIyHMHhDHUx Y6DvwHAkQMapU541 PQlcJnQ0WIYpmyBgU3Rw VRIvkSrgVuW2z4S8Qn7K rSpvgTXcAI8kMyPxCDq3 A2LmPsm0VFCqvRza ZF7gnKZcQYozCn4avRld oAqdHJ2kMKKvzezmm672 GbJoi7mxZCKqcSMrVAoc VMT9P25bw2O8BDFh HOQcLGM1eXQ5bB1xxXgv bjogbGVmdDsgdmVydGlj UFvnOFilZ119NANfrFua IdDXUbd6F1KjDzs8 TDAolNimVT4oiGAkRPxh Gp0ugJfkuOuzGU6gHXXc wijkf327CvMht4vfKUFb cNZrRKlyQFN5Y16k f3Z4QDJdXMCcCLB0xXL5 zW1mzCyrfdynrCIjkQbb bqZpaIuoRZvdQHyqR780 DKTruEnbNl3JNae7 S9XgFcw9ZYEvaGtdHV4d yCLsGJehLw7jxJengRfl OS0kQPJtppxll347PiKe f5nnVMRgmIVuJXkc TQX7H06yc5M7LQYsQKRq BSR9bMW9bL9dnAkeiwly bGVmdDsgdmVydGljYWwt MLedI649HGKilFwn PlBheWVyOjwvdGQ+PC90 ph20F8NuWneeXjf0GJXp TRA9pKL4rD6dLMTeYZsa o2F0hCY3X4VyhlVp ci1 (more content not included)... [facility] 12-18-19 [facility] Case Information Case Priority: None Programs: -- Referral Source: Order Entry Referral Reason: Care coordination Case Type: Transition [...] any questions or concerns. Patient currently at [facility], unable to provide patient with contact number, but did advise patient to call office and ask to speak with pharmacy care coordinator if he had any questions or concerns. Communication Events Date: December 17, 2022 Method: Phone call Type: Outbound Duration (min): 5 Outcome: Case discussion Contact Type: Patient Contact Name: RY LERNER Notes: TCM #1-see summary note. Created By: Ezequiel PERSAUD, Sandra Calix [facility] CBC AUTO DIFFon 12-14-2022 BASO # 0.0 103/ul Normal 0.0-0.1 Comment on above: Performed By: #### C BC #### [facility] [address] [address] [address] Rashmi Nolan Basophils/100 WBC (Bld) 0.6 % Normal 0.2-2.0 [facility] Comment on above: Performed By: #### C BC #### [facility] [address] [address] [address] Rashmi Nolan EO # 0.4 103/ul Normal 0.0-0.7 [facility] Comment on above: Performed By: #### C BC #### [facility] [address] [address] [address] Rashmi Nolan Eosinophils/100 WBC (Bld) 11.9 % Critically high 0.9-7.0 [facility] Comment on above: Performed By: #### C BC #### [facility] [address] [address] [address] Rashmi Nolan Erythrocyte distribution width (RBC) [Ratio] 15.2 % Critically high 11.0-15.0 Comment on above: Performed By: #### C BC #### [facility] [address] [address] [address] Rashmi Nolan Hematocrit (Bld) [Volume fraction] 26.3 % Critically low 42.0-54.0 Comment on above: Performed By: #### C BC #### [facility] [address] [place] [address] Dr. Rashmi Nolan Hemoglobin (Bld) [Mass/Vol] 8.9 g/dL Critically low 14.0-18.0 Comment on above: Performed By: #### C BC #### [facility] [address] [place] [address] Dr. Rashmi Nolan IG # 0.01 10e3/ul Normal 0.00-0.03 Comment on above: Performed By: #### C BC #### [facility] [address] [place] [address] Dr. Rashmi Nolan IG % 0.3 % Normal 0.0-0.5 Comment on above: Performed By: #### C BC #### [facility] [address] [place] [address] Dr. Rashmi Nolan LYMPH # 0.8 103/ul Critically low 1.2-3.8 [facility] Comment on above: Performed By: #### C BC #### [facility] [address] [place] [address] Dr. Rashmi Nolan Lymphocytes/100 WBC (Bld) 25.1 % Normal 20.5-60.0 Comment on above: Performed By: #### C BC #### [facility] [address] [place] [address] Dr. Rashmi Nolan MANUAL DIFF REQ NO Normal [facility] Comment on above: Performed By: #### C BC #### [facility] [address] [place] [address] Dr. Rashmi Nolan MCH (RBC) [Entitic mass] 33.0 pg Normal 25.9-34.0 Comment on above: Performed By: #### C BC #### [facility] [address] [place] [address] Dr. Rashmi Nolan MCHC (RBC) [Mass/Vol] 33.8 g/dL Normal 29.9-35.2 [facility] Comment on above: Performed By: #### C BC #### [facility] [address] [place] [address] Dr. Rashmi Nolan MCV (RBC) [Entitic vol] 97.4 fL Critically high 80.0-94.0 [facility] Comment on above: Performed By: #### C BC #### [facility] [address] [place] [address] Dr. Rashmi Nolan MONO # 0.3 103/ul Normal 0.3-0.8 [facility] Comment on above: Performed By: #### C BC #### [facility] [address] [place] [address] Dr. Rashmi Nolan Monocytes/100 WBC (Bld) 9.0 % Normal 1.7-12.0 [facility] Comment on above: Performed By: #### C BC #### [facility] [address] [place] [address] Dr. Rashmi Nolan NEUT # 1.7 103/ul Normal 1.4-6.5 [facility] Comment on above: Performed By: #### C BC #### [facility] [address] [place] [address] Dr. Rashmi Nolan Neutrophils/100 WBC (Bld) 53.1 % Normal 43.0-75.0 [facility] Comment on above: Performed By: #### C BC #### [facility] [address] [place] [address] Dr. Rashmi Nolan Platelet mean volume (Bld) [Entitic vol] 10.2 fL Normal 9.5-13.5 [facility] Comment on above: Performed By: #### C BC #### [facility] [address] [place] [address] Dr. Rashmi Nolan PLT 139 103/ul Critically low 150-450 [facility] Comment on above: Performed By: #### C BC #### [facility] [address] [place] [address] Dr. Rashmi Nolan RBC 2.70 106/ul Critically low 4.70-6.10 [facility] Comment on above: Performed By: #### C BC #### [facility] [address] [address] [address] Rashmi Nolan WBC 3.1 103/ul Critically low 4.0-11.0 [facility] Comment on above: Performed By: #### C BC #### [facility] [address] [address] [address] Rashmi Nolan MAGR Intraoperative Recordon 12-14-2022 MAGR Intraoperative Record MAGR Intra-Op Record Summary Primary Physician: Ward Martinez DO Finalized Date/Time: 12/14/22 09:30:19 Pt. Name: RY LERNER/Sex: 1935 MALE Med Rec #: [id number] Physician: Ward Martinez DO Financial #: [id number] Pt. Type: D Room/Bed: / Admit/Disch: 12/10/22 [...] Andrew DO Role Performed Surgeon - Primary Wellness Ambassador Wellness Ambassador Time In 12/10/22 15:05:00 12/10/22 14:54:00 12/10/22 14:54:00 Time Out 12/10/22 15:30:00 12/10/22 15:30:00 12/10/22 15:30:00 Procedure Carpal Tunnel Carpal Tunnel Carpal Tunnel Release(Left) Release(Left) Release(Left) Last Modified By: Maile Palmer RN, Barbara RN Long, Barbara RN 12/10/22 15:29:30 12/10/22 15:29:30 12/10/22 15:29:30 Entry 4 Entry 5 Case Attendee Macie Licea CST, CST, Brandi Role Performed Roll Icer Scrub Personnel Time In 12/10/22 14:54:00 12/10/22 [...] By Maile Palmer RN Scrub 10% Povidone-Iodine [place] Prep Area (Im.270) Arm lower Prep Area [...] injury Counts (more content not included)... Normal [facility] Outside Colonoscopyon 2022 Outside Colonoscopy [id number] #1.00CD:127 Normal [facility] Correspo ndenceon 12-14-2022 Outside [facility] Correspondence [id number] #1.00CD:127 Normal [facility] Correspondence [id number] #1.00CD:127 Normal [facility] Correspondence . [id number] #1.00CD:127 Normal [facility] Correspondence . [id number] #1.00CD:127 Normal [facility] Correspondence [id number] #1.00CD:127 Normal [facility] PROF CHEM 8 (BAS METB)on Anion gap [Moles/Vol] 12.6 mmol/L Normal [facility] Comment on above: Performed By: #### B MP #### [facility] [address] [address] [address] Rashmi Nolan Calcium [Mass/Vol] 9.7 mg/dL Normal 8.5-10.1 [facility] Comment on above: Performed By: #### B MP #### [facility] [address] [address] [address] Rashmi Nolan Chloride [Moles/Vol] 108 mmol/L Critically high 98-107 Comment on above: Performed By: #### B MP #### [facility] [address] [address] [address] Rashmi Nolan CO2 [Moles/Vol] 24.5 mmol/L Normal 21.0-32.0 [facility] Comment on above: Performed By: #### B MP #### [facility] [address] [address] [address] Rashmi Nolan Creatinine [Mass/Vol] 1.68 mg/dL Critically high 0.70-1.30 Comment on above: Performed By: #### B MP #### [facility] [address] [address] [address] Rashmi Nolan EGFR-AF ERITREAN 47 mL/min/1.73m2 Critically low >=60 [facility] Comment on above: Performed By: #### B MP #### [facility] [address] [address] [address] Rashmi Nolan EGFR-NON AF ERITREAN 39 mL/min/1.73m2 Critically low >=60 [facility] Comment on above: Performed By: #### B MP #### [facility] [address] [address] [address] Rashmi Nolan Glucose [Mass/Vol] 91 mg/dL Normal 74-106 [facility] Comment on above: Performed By: #### B MP #### [facility] [address] [address] [address] Rashmi Nolan Potassium [Moles/Vol] 5.1 mmol/L Normal 3.5-5.1 Comment on above: Performed By: #### B MP #### [facility] [address] [address] [address] Rashmi Nolan Sodium [Moles/Vol] 140 mmol/L Normal 136-145 [facility] Comment on above: Performed By: #### B MP #### [facility] [address] [address] [address] Rashmi Nolan Urea nitrogen [Mass/Vol] 27.0 mg/dL Critically high 7.0-18.0 Comment on above: Performed By: #### B MP #### [facility] [address] [place] [address] Dr. Rashmi Nolan Urea nitrogen/Creatinine [Mass ratio] 16.1 mg/mg Normal Comment on above: Performed By: #### B MP #### [facility] [address] [address] [address] Rashmi Nolan Transfer Inon 12-14-2022 Transfer In [id number] #1.00CD:127 Normal [facility] CBC AUTO DIFFon 12-13-2022 BASO # 0.0 103/ul Normal 0.0-0.1 Comment on above: Performed By: #### C BC #### [facility] [address] [address] [address] Rashmi Nolan Basophils/100 WBC (Bld) 0.6 % Normal 0.2-2.0 Comment on above: Performed By: #### C BC #### [facility] [address] [place] [address] Dr. Rashmi Nolan EO # 0.4 103/ul Normal 0.0-0.7 Comment on above: Performed By: #### C BC #### [facility] [address] [place] [address] Dr. Rashmi Nolan Eosinophils/100 WBC (Bld) 10.3 % Critically high 0.9-7.0 Comment on above: Performed By: #### C BC #### [facility] [address] [place] [address] Dr. Rashmi Nolan Erythrocyte distribution width (RBC) [Ratio] 15.8 % Critically high 11.0-15.0 Comment on above: Performed By: #### C BC #### [facility] [address] [place] [address] Dr. Rashmi Nolan Hematocrit (Bld) [Volume fraction] 25.7 % Critically low 42.0-54.0 Comment on above: Performed By: #### C BC #### [facility] [address] [place] [address] Dr. Rashmi Nolan Hemoglobin (Bld) [Mass/Vol] 8.5 g/dL Critically low 14.0-18.0 Comment on above: Performed By: #### C BC #### [facility] [address] [place] [address] Dr. Rashmi Nolan IG # 0.00 10e3/ul Normal 0.00-0.03 Comment on above: Performed By: #### C BC #### [facility] [address] [place] [address] Dr. Rashmi Nolan IG % 0.0 % Normal 0.0-0.5 Comment on above: Performed By: #### C BC #### [facility] [address] [place] [address] Dr. Rashmi Nolan LYMPH # 0.8 103/ul Critically low 1.2-3.8 [facility] Comment on above: Performed By: #### C BC #### [facility] [address] [place] [address] Dr. Rashmi Nolan Lymphocytes/100 WBC (Bld) 23.5 % Normal 20.5-60.0 Comment on above: Performed By: #### C BC #### [facility] [address] [place] [address] Dr. Rashmi Nolan MANUAL DIFF REQ NO Normal [facility] Comment on above: Performed By: #### C BC #### [facility] [address] [place] [address] Dr. Rashmi Nolan MCH (RBC) [Entitic mass] 32.9 pg Normal 25.9-34.0 Comment on above: Performed By: #### C BC #### [facility] [address] [place] [address] Dr. Rashmi Nolan MCHC (RBC) [Mass/Vol] 33.1 g/dL Normal 29.9-35.2 Comment on above: Performed By: #### C BC #### [facility] [address] [place] [address] Dr. Rashmi Nolan MCV (RBC) [Entitic vol] 99.6 fL Critically high 80.0-94.0 Comment on above: Performed By: #### C BC #### [facility] [address] [place] [address] Dr. Rashmi Nolan MONO # 0.3 103/ul Normal 0.3-0.8 Comment on above: Performed By: #### C BC #### [facility] [address] [place] [address] Dr. Rashmi Nolan Monocytes/100 WBC (Bld) 8.9 % Normal 1.7-12.0 Comment on above: Performed By: #### C BC #### [facility] [address] [place] [address] Dr. Rashmi Nolan NEUT # 2.0 103/ul Normal 1.4-6.5 Comment on above: Performed By: #### C BC #### [facility] [address] [address] [address] Rashmi Nolan Neutrophils/100 WBC (Bld) 56.7 % Normal 43.0-75.0 Comment on above: Performed By: #### C BC #### [facility] [address] [address] [address] Rashmi Nolan Platelet mean volume (Bld) [Entitic vol] 10.5 fL Normal 9.5-13.5 Comment on above: Performed By: #### C BC #### [facility] [address] [address] [address] Rashmi Nolan PLT 134 103/ul Critically low 150-450 [facility] Comment on above: Performed By: #### C BC #### [facility] [address] [address] [address] Rashmi Nolan RBC 2.58 106/ul Critically low 4.70-6.10 [facility] Comment on above: Performed By: #### C BC #### [facility] [address] [address] [address] Rashmi Nolan WBC 3.6 103/ul Critically low 4.0-11.0 [facility] Comment on above: Performed By: #### C BC #### [facility] [address] [address] [address] Rashmi Nolan PROF CHEM 8 (BAS METB)on Anion gap [Moles/Vol] 11.7 mmol/L Normal [facility] Comment on above: Performed By: #### C BC #### [facility] [address] [address] [address] Rashmi Nolan Calcium [Mass/Vol] 9.5 mg/dL Normal 8.5-10.1 [facility] Comment on above: Performed By: #### C BC #### [facility] [address] [address] [address] Rashmi Nolan Chloride [Moles/Vol] 110 mmol/L Critically high 98-107 Comment on above: Performed By: #### C BC #### [facility] [address] [address] [address] Rashmi Nolan CO2 [Moles/Vol] 25.1 mmol/L Normal 21.0-32.0 [facility] Comment on above: Performed By: #### C BC #### [facility] [address] [address] [address] Rashmi Nolan Creatinine [Mass/Vol] 1.69 mg/dL Critically high 0.70-1.30 Comment on above: Performed By: #### C BC #### [facility] [address] [address] [address] Rashmi Nolan EGFR-AF ERITREAN 47 mL/min/1.73m2 Critically low >=60 Comment on above: Performed By: #### C BC #### [facility] [address] [address] [address] Rashmi Nolan EGFR-NON AF ERITREAN 38 mL/min/1.73m2 Critically low >=60 Comment on above: Performed By: #### C BC #### [facility] [address] [place] [address] Dr. Rashmi Nolan Glucose [Mass/Vol] 93 mg/dL Normal 74-106 [facility] Comment on above: Performed By: #### C BC #### [facility] [address] [address] [address] Rashmi Nolan Potassium [Moles/Vol] 5.8 mmol/L Critically high 3.5-5.1 Comment on above: Performed By: #### C BC #### [facility] [address] [address] [address] Rashmi Nolan Sodium [Moles/Vol] 141 mmol/L Normal 136-145 [facility] Comment on above: Performed By: #### C BC #### [facility] [address] [address] [address] Rashmi Nolan Urea nitrogen [Mass/Vol] 35.0 mg/dL Critically high 7.0-18.0 Comment on above: Performed By: #### C BC #### [facility] [address] [address] [address] Rashmi Nolan Urea nitrogen/Creatinine [Mass ratio] 20.7 mg/mg Normal Comment on above: Performed By: #### C BC #### [facility] [address] [address] [address] Rashmi Nolan ABO RH RETYPEon 12-12-2022 ABO and Rh group Nom (Bld) DONE Normal Comment on above: Performed By: #### C BC #### [facility] [address] [address] [address] Rashmi Nolan Auth for Release of Medical Recordson 12-12-2022 Auth for Release of Medical Records [id number] Normal [facility] CBC AUTO DIFFon 12-12-2022 BASO # 0.0 103/ul Normal 0.0-0.1 Comment on above: Performed By: #### C BC #### [facility] [address] [address] [address] Rashmi Nolan Basophils/100 WBC (Bld) 0.6 % Normal 0.2-2.0 Comment on above: Performed By: #### C BC #### [facility] [address] [address] [address] Rashmi Nolan EO # 0.3 103/ul Normal 0.0-0.7 Comment on above: Performed By: #### C BC #### [facility] [address] [address] [address] Rashmi Nolan Eosinophils/100 WBC (Bld) 7.6 % Critically high 0.9-7.0 Comment on above: Performed By: #### C BC #### [facility] [address] [place] [address] Dr. Rashmi Nolan Erythrocyte distribution width (RBC) [Ratio] 16.4 % Critically high 11.0-15.0 Comment on above: Performed By: #### C BC #### [facility] [address] [place] [address] Dr. Rashmi Nolan Hematocrit (Bld) [Volume fraction] 27.2 % Critically low 42.0-54.0 Comment on above: Performed By: #### C BC #### [facility] [address] [place] [address] Dr. Rashmi Nolan Hemoglobin (Bld) [Mass/Vol] 9.1 g/dL Critically low 14.0-18.0 Comment on above: Performed By: #### C BC #### [facility] [address] [place] [address] Dr. Rashmi Nolan IG # 0.01 10e3/ul Normal 0.00-0.03 Comment on above: Performed By: #### C BC #### [facility] [address] [place] [address] Dr. Rashmi Nolan IG % 0.3 % Normal 0.0-0.5 Comment on above: Performed By: #### C BC #### [facility] [address] [place] [address] Dr. Rashmi Nolan LYMPH # 0.9 103/ul Critically low 1.2-3.8 [facility] Comment on above: Performed By: #### C BC #### [facility] [address] [place] [address] Dr. Rashmi Nolan Lymphocytes/100 WBC (Bld) 25.3 % Normal 20.5-60.0 Comment on above: Performed By: #### C BC #### [facility] [address] [place] [address] Dr. Rashmi Nolan MANUAL DIFF REQ NO Normal [facility] Comment on above: Performed By: #### C BC #### [facility] [address] [place] [address] Dr. Rashmi Nolan MCH (RBC) [Entitic mass] 33.0 pg Normal 25.9-34.0 Comment on above: Performed By: #### C BC #### [facility] [address] [address] [address] Rashmi Nolan MCHC (RBC) [Mass/Vol] 33.5 g/dL Normal 29.9-35.2 Comment on above: Performed By: #### C BC #### [facility] [address] [address] [address] Rashmi Nolan MCV (RBC) [Entitic vol] 98.6 fL Critically high 80.0-94.0 Comment on above: Performed By: #### C BC #### [facility] [address] [address] [address] Rashmi Nolan MONO # 0.3 103/ul Normal 0.3-0.8 Comment on above: Performed By: #### C BC #### [facility] [address] [place] [address] Dr. Rashmi Nolan Monocytes/100 WBC (Bld) 8.1 % Normal 1.7-12.0 Comment on above: Performed By: #### C BC #### [facility] [address] [place] [address] Dr. Rashmi Nolan NEUT # 2.0 103/ul Normal 1.4-6.5 Comment on above: Performed By: #### C BC #### [facility] [address] [place] [address] Dr. Rashmi Nolan Neutrophils/100 WBC (Bld) 58.1 % Normal 43.0-75.0 [facility] Comment on above: Performed By: #### C BC #### [facility] [address] [address] [address] Rashmi Nolan Platelet mean volume (Bld) [Entitic vol] 10.0 fL Normal 9.5-13.5 Comment on above: Performed By: #### C BC #### [facility] [address] [address] [address] Rashmi Nolan PLT 147 103/ul Critically low 150-450 [facility] Comment on above: Performed By: #### C BC #### [facility] [address] [address] [address] Rashmi Nolan RBC 2.76 106/ul Critically low 4.70-6.10 [facility] Comment on above: Performed By: #### C BC #### [facility] [address] [address] [address] Rashmi Nolan WBC 3.4 103/ul Critically low 4.0-11.0 [facility] Comment on above: Performed By: #### C BC #### [facility] [address] [address] [address] Rashmi Nolan BASO # 0.0 103/ul Normal 0.0-0.1 Comment on above: Performed By: #### C BC #### [facility] [address] [address] [address] Rashmi Nolan Basophils/100 WBC (Bld) 0.6 % Normal 0.2-2.0 Comment on above: Performed By: #### C BC #### [facility] [address] [address] [address] Rashmi Nolan EO # 0.2 103/ul Normal 0.0-0.7 Comment on above: Performed By: #### C BC #### [facility] [address] [address] [address] Rashmi Nolan Eosinophils/100 WBC (Bld) 6.6 % Normal 0.9-7.0 [facility] Comment on above: Performed By: #### C BC #### [facility] [address] [place] [address] Dr. Rashmi Nolan Erythrocyte distribution width (RBC) [Ratio] 16.4 % Critically high 11.0-15.0 Comment on above: Performed By: #### C BC #### [facility] [address] [place] [address] Dr. Rashmi Nolan Hematocrit (Bld) [Volume fraction] 26.1 % Critically low 42.0-54.0 Comment on above: Performed By: #### C BC #### [facility] [address] [address] [address] Rashmi Nolan Hemoglobin (Bld) [Mass/Vol] 8.5 g/dL Critically low 14.0-18.0 Comment on above: Result Comment: rcvd . blood Performed By: #### C BC #### [facility] [address] [place] [address] Dr. Rashmi Nolan IG # 0.01 10e3/ul Normal 0.00-0.03 [facility] Comment on above: Performed By: #### C BC #### [facility] [address] [place] [address] Dr. Rashmi Nolan IG % 0.3 % Normal 0.0-0.5 Comment on above: Performed By: #### C BC #### [facility] [address] [place] [address] Dr. Rashmi Nolan LYMPH # 0.7 103/ul Critically low 1.2-3.8 [facility] Comment on above: Performed By: #### C BC #### [facility] [address] [place] [address] Dr. Rahsmi Nolan Lymphocytes/100 WBC (Bld) 20.2 % Critically low 20.5-60.0 Comment on above: Performed By: #### C BC #### [facility] [address] [place] [address] Dr. Rashmi Nolan MANUAL DIFF REQ NO Normal [facility] Comment on above: Performed By: #### C BC #### [facility] [address] [place] [address] Dr. Rashmi Nolan MCH (RBC) [Entitic mass] 32.7 pg Normal 25.9-34.0 [facility] Comment on above: Performed By: #### C BC #### [facility] [address] [place] [address] Dr. Rashmi Nolan MCHC (RBC) [Mass/Vol] 32.6 g/dL Normal 29.9-35.2 [facility] Comment on above: Performed By: #### C BC #### [facility] [id number] Rashmi Nolan MCV (RBC) [Entitic vol] 100.4 fL Critically high 80.0-94.0 Comment on above: Performed By: #### C BC #### [facility] [address] [address] [address] Rashmi Nolan MONO # 0.3 103/ul Normal 0.3-0.8 Comment on above: Performed By: #### C BC #### [facility] [address] [address] [address] Rashmi Nolan Monocytes/100 WBC (Bld) 7.7 % Normal 1.7-12.0 Comment on above: Performed By: #### C BC #### [facility] [address] [address] [address] Rashmi Nolan NEUT # 2.3 103/ul Normal 1.4-6.5 Comment on above: Performed By: #### C BC #### [facility] [address] [address] [address] Rashmi Nolan Neutrophils/100 WBC (Bld) 64.6 % Normal 43.0-75.0 Comment on above: Performed By: #### C BC #### [facility] [address] [address] [address] Rashmi Nolan Platelet mean volume (Bld) [Entitic vol] 9.9 fL Normal 9.5-13.5 [facility] Comment on above: Performed By: #### C BC #### [facility] [address] [address] [address] Rashmi Nolan PLT 130 103/ul Critically low 150-450 [facility] Comment on above: Performed By: #### C BC #### [facility] [id number] Rashmi Nolan RBC 2.60 106/ul Critically low 4.70-6.10 [facility] Comment on above: Performed By: #### C BC #### [facility] [address] [address] [address] Rashmi Nolan WBC 3.6 103/ul Critically low 4.0-11.0 [facility] Comment on above: Performed By: #### C BC #### [facility] [address] [address] [address] Rashmi Nolan PRBC LEUKOREDUCEDon 12-13-19 ABO and Rh group Nom (Bld) Cross Match Result Compatible Unit Blood Type O Pos Unit Number [id number] Status Information Issued Product ID Red Blood Cells Product Code [id number] Issue Date/Time [id number] Cross Match Result Compatible Unit Blood Type O Pos Unit Number [id number] Status Information Issued Product ID Red Blood Cells Product Code [id number] Issue Date/Time [id number] Normal Comment on above: Performed By: #### C BC #### [facility] [address] [place] [address] Dr. Rashmi Nolan PROF CHEM 8 (BAS METB)on Anion gap [Moles/Vol] 14.8 mmol/L Normal [facility] Comment on above: Performed By: #### B MP #### [facility] [address] [address] [address] Rashmi Nolan Calcium [Mass/Vol] 9.2 mg/dL Normal 8.5-10.1 [facility] Comment on above: Performed By: #### B MP #### [facility] [address] [address] [address] Rashmi Nolan Chloride [Moles/Vol] 110 mmol/L Critically high 98-107 Comment on above: Performed By: #### B MP #### [facility] [address] [address] [address] Rashmi Nolan CO2 [Moles/Vol] 23.5 mmol/L Normal 21.0-32.0 [facility] Comment on above: Performed By: #### B MP #### [facility] [address] [address] [address] Rashmi Nolan Creatinine [Mass/Vol] 1.77 mg/dL Critically high 0.70-1.30 Comment on above: Performed By: #### B MP #### [facility] [address] [address] [address] Rashmi Nolan EGFR-AF ERITREAN 44 mL/min/1.73m2 Critically low >=60 Comment on above: Performed By: #### B MP #### [facility] [address] [address] [address] Rashmi Nolan EGFR-NON AF ERITREAN 36 mL/min/1.73m2 Critically low >=60 Comment on above: Performed By: #### B MP #### [facility] [address] [address] [address] Rashmi Nolan Glucose [Mass/Vol] 103 mg/dL Normal 74-106 [facility] Comment on above: Performed By: #### B MP #### [facility] [address] [address] [address] Rashmi Nolan Potassium [Moles/Vol] 5.3 mmol/L Critically high 3.5-5.1 Comment on above: Performed By: #### B MP #### [facility] [address] [address] [address] Rashmi Nolan Sodium [Moles/Vol] 143 mmol/L Normal 136-145 [facility] Comment on above: Performed By: #### B MP #### [facility] [address] [address] [address] Rashmi Nolan Urea nitrogen [Mass/Vol] 54.0 mg/dL Critically high 7.0-18.0 Comment on above: Performed By: #### B MP #### [facility] [address] [address] [address] Rashmi Nolan Urea nitrogen/Creatinine [Mass ratio] 30.5 mg/mg Normal Comment on above: Performed By: #### B MP #### [facility] [address] [address] [address] Rashmi Nolan Auto Diffon 12-11-2022 Basophils/100 WBC (Bld) 0.5 % Normal 0.0-2.0 [facility] Comment on above: Order Comment: Order Added by Discern Expert. Performed By: #### 2 [id number], [id number], [id number] #### [facility] [address] [place] [address] Basophils/Leukocytes Auto (Bld) [Pure # fraction] 0.0 E9/L Normal 0.0-0.2 [facility] Comment on above: Order Comment: Order Added by Discern Expert. Performed By: #### 2 [id number], [id number], [id number] #### [facility] [address] [place] [address] Eosinophils/100 WBC (Bld) 3.4 % Normal 0.0-8.0 [facility] Comment on above: Order Comment: Order Added by Ronnie Expert. Performed By: #### 2 [id number], [id number], [id number] #### [facility] [address] [place] [address] Eosinophils/Leukocyte s Auto (Bld) [Pure # fraction] 0.2 E9/L Normal 0.0-0.5 [facility] Comment on above: Order Comment: Order Added by Ronnie Expert. Performed By: #### 2 [id number], [id number], [id number] #### [facility] [address] [place] [address] Lymphocytes/100 WBC (Bld) 17.1 % Normal 14.0-50.0 [facility] Comment on above: Order Comment: Order Added by Discern Expert. Performed By: #### 2 [id number], [id number], [id number] #### [facility] [address] [place] [address] Lymphocytes/Leukocyte s Auto (Bld) [Pure # fraction] 0.9 E9/L Low 1.0-4.0 [facility] Comment on above: Order Comment: Order Added by Ronnie Expert. Performed By: #### 2 [id number], [id number], [id number] #### [facility] [address] [place] [address] Monocytes/100 WBC (Bld) 6.1 % Normal 4.0-14.0 [facility] Comment on above: Order Comment: Order Added by Discern Expert. Performed By: #### 2 [id number], [id number], [id number] #### [facility] [address] [place] [address] Monocytes/Leukocytes Auto (Bld) [Pure # fraction] 0.3 E9/L Normal 0.2-1.0 [facility] Comment on above: Order Comment: Order Added by Discern Expert. Performed By: #### 2 [id number], [id number], [id number] #### [facility] [address] [place] [address] Neutrophils/100 WBC (Bld) 72.9 % Normal 36.0-75.0 [facility] Comment on above: Order Comment: Order Added by Discern Expert. Performed By: #### 2 393356, [id number], [id number] #### [facility] [address] [place] [address]31 Neutrophils/Leukocyte s Auto (Bld) [Pure # fraction] 3.8 E9/L Normal 2.0-7.5 [facility] Comment on above: Order Comment: Order Added by Discern Expert. Performed By: #### 2 060450, [id number], [id number] #### [facility] [address] [place] [address] CBC AUTO DIFFon 12-11-2022 BASO # 0.0 103/ul Normal 0.0-0.1 Comment on above: Performed By: #### C BC #### [facility] [address], [place] [address] Dr. Rashmi Nolan Basophils/100 WBC (Bld) 0.4 % Normal 0.2-2.0 [facility] Comment on above: Performed By: #### C BC #### [facility] [address], [place] [address] Dr. Rashmi Nolan EO # 0.2 103/ul Normal 0.0-0.7 Comment on above: Performed By: #### C BC #### [facility] [address] [place] [address] Dr. Rashmi Nolan Eosinophils/100 WBC (Bld) 5.2 % Normal 0.9-7.0 Comment on above: Performed By: #### C BC #### [facility] [address] [place] [address] Dr. Rashmi Nolan Erythrocyte distribution width (RBC) [Ratio] 14.6 % Normal 11.0-15.0 Comment on above: Performed By: #### C BC #### [facility] [address] [place] [address] Dr. Rashmi Nolan Hematocrit (Bld) [Volume fraction] 23.7 % Critically low 42.0-54.0 Comment on above: Performed By: #### C BC #### [facility] [address] [place] [address] Dr. Rashmi Nolan Hemoglobin (Bld) [Mass/Vol] 7.8 g/dL Critically low 14.0-18.0 Comment on above: Performed By: #### C BC #### [facility] [address] [place] [address] Dr. Rashmi Nolan IG # 0.01 10e3/ul Normal 0.00-0.03 Comment on above: Performed By: #### C BC #### [facility] [address] [place] [address] Dr. Rashmi Nolan IG % 0.2 % Normal 0.0-0.5 [facility] Comment on above: Performed By: #### C BC #### [facility] [address] [place] [address] Dr. Rashmi Nolan LYMPH # 0.9 103/ul Critically low 1.2-3.8 [facility] Comment on above: Performed By: #### C BC #### [facility] [address] [place] [address] Dr. Rashmi Nolan Lymphocytes/100 WBC (Bld) 19.6 % Critically low 20.5-60.0 Comment on above: Performed By: #### C BC #### [facility] [address] [place] [address] Dr. Rashmi Nolan MANUAL DIFF REQ NO Normal [facility] Comment on above: Performed By: #### C BC #### [facility] [address] [place] [address] Dr. Rashmi Nolan MCH (RBC) [Entitic mass] 34.7 pg Critically high 25.9-34.0 Comment on above: Performed By: #### C BC #### [facility] [address] [place] [address] Dr. Rashmi Nolan MCHC (RBC) [Mass/Vol] 32.9 g/dL Normal 29.9-35.2 [facility] Comment on above: Performed By: #### C BC #### [facility] [address] [place] [address] Dr. Rashmi Nolan MCV (RBC) [Entitic vol] 105.3 fL Critically high 80.0-94.0 Comment on above: Performed By: #### C BC #### [facility] [address] [place] [address] Dr. Rashmi Nolan MONO # 0.3 103/ul Normal 0.3-0.8 Comment on above: Performed By: #### C BC #### [facility] [address] [place] [address] Dr. Rashmi Nolan Monocytes/100 WBC (Bld) 7.2 % Normal 1.7-12.0 Comment on above: Performed By: #### C BC #### [facility] [address] [place] [address] Dr. Rashmi Nolan NEUT # 3.0 103/ul Normal 1.4-6.5 [facility] Comment on above: Performed By: #### C BC #### [facility] [address] [place] [address] Dr. Rashmi Nolan Neutrophils/100 WBC (Bld) 67.4 % Normal 43.0-75.0 Comment on above: Performed By: #### C BC #### [facility] [address] [place] [address] Dr. Rashmi Nolan Platelet mean volume (Bld) [Entitic vol] 9.8 fL Normal 9.5-13.5 Comment on above: Performed By: #### C BC #### [facility] [address] [place] [address] Dr. Rashmi Nolan PLT 156 103/ul Normal 150-450 Comment on above: Performed By: #### C BC #### [facility] [address] [address] [address] Rashmi Nolan RBC 2.25 106/ul Critically low 4.70-6.10 [facility] Comment on above: Performed By: #### C BC #### [facility] [address] [place] [address] Dr. Rashmi Nolan WBC 4.5 103/ul Normal 4.0-11.0 Comment on above: Performed By: #### C BC #### [facility] [address] [place] [address] Dr. Rashmi Nolan CBC w/ Auto Diffon 3 Erythrocyte distribution width (RBC) [Ratio] 14.9 % High 10.9-14.2 [facility] Comment on above: Performed By: #### 2 [id number], [id number], [id number] #### [facility] [address] [place] [address] Hematocrit (Bld) [Volume fraction] 24.1 % Low 37.7-49.0 [facility] Comment on above: Performed By: #### 2 790646, 3960226, [id number] #### [facility] [address] [place] [address] Hemoglobin (Bld) [Mass/Vol] 8.1 g/dL Low 13.5-17.5 [facility] Comment on above: Performed By: #### 2 472996, 6736765, [id number] #### [facility] [address] [place] [address] MCH (RBC) [Entitic mass] 34.0 pg Normal 27.0-34.0 [facility] Comment on above: Performed By: #### 2 432302, 9925997, [id number] #### [facility] [address] [place] [address]328 MCHC (RBC) [Mass/Vol] 33.6 g/dL Normal 31.4-36.[address] [facility] Comment on above: Performed By: #### 2 [id number], 5380051, [id number] #### [facility] [address] [place] [address] 24168 MCV (RBC) [Entitic vol] 101.1 fL High 80.0-100.0 [facility] Comment on above: Performed By: #### 2 435605, 5822306, [id number] #### [facility] [address] [place] [address] 28838 Platelet mean volume (Bld) [Entitic vol] 8.9 fL Normal 6.4-10.8 [facility] Comment on above: Performed By: #### 2 586103, 3430343, [id number] #### [facility] [address] [place] [address] Platelets (Bld) [#/Vol] 177.0 E9/L Normal 150.0-500.0 [facility] Comment on above: Performed By: #### 2 351271, 1091775, [id number] #### [facility] [address] [place] [address]239 RBC (Bld) [#/Vol] 2.4 E12/L Low 4.3-5.9 [facility] Comment on above: Performed By: #### 2 859719, 8516301, [id number] #### [facility] [address] [place] [address] 60547 WBC corrected for nucl RBC Auto (Bld) [#/Vol] 5.2 E9/L Normal 4.0-11.0 [facility] Comment on above: Performed By: #### 2 519353, [id number], [id number] #### [facility] [address] [place] [address] CHEMISTRYOrdered By: SYSTEM SYSTEM on 12-11-2022 Iron binding capacity [Mass/Vol] 417 ug/dL High 250 - 400 mcg/dL [facility] Remisol Transferrin [Mass/Vol] 298 mg/dL Normal 200 - 370 mg/dL [facility] Remisol Consent Formson 12-11-2022 Consent Forms [id number] #[id number] [facility] Family Medicine Office/Clini c Noteon 12-11-2022 Family Medicine Office/Clinic Note HPI Staff Noemi is an 87 year old male who presents to establish care. 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 Martinez, Dr. Royal Jordan-Cardiology [facility] Last provider: Dr. Silva Any [...] he turned 79 years old. [place] call [facility] and request records for any colonoscopy in 2015 or more recent. Review of Systems PHQ Score Initial Depression Screen Score: 0 Physical Exam Vitals & Measurements HR: 60(Peripheral) BP: 128/62 SpO2: 98% HT: 70 in HT: 178.5 cm WT: 99 kg WT: 217.8 lb BMI: 31.07 Assessment/Plan 1. Black tarry stools (K92.1: Melena) Ordered: CBC w/ Auto Diff Fibrinogen Lvl [facility] Internal Ambulatory Referral Lab Specimen Collect [id number] PT & PTT Stool Occult Blood Stool Occult Blood TIBC Calculated 2. Family hx of colon cancer (Z80.0: Family history of malignant neoplasm of digestive organs) Ordered: [facility] Internal Ambulatory Referral Lab Specimen Collect [id number] Stool Occult Blood 3. Colon cancer screening (Z12.11: Encounter for screening for malignant neoplasm of colon) Ordered: [facility] Internal Ambulatory Referral Lab Specimen Collect [id number] Stool Occult Blood 4. BMI 31.0-31.9,adult (Z68.31: Body mass index [BMI] 31.0-31.9, adult) Ordered: [facility] Internal Ambulatory Referral Stool Occult Blood Follow-up [...] Recorded influenza, whole 05/29/2005 Recorded Normal [facility] Comment on above: Result Comment: Elec tronically Signed By: Leidy Simms\.br\Date and Time Signed: 12/11/22 13:49 EDT Family Medicine Office/Clinic Note HPI Staff Noemi is an 87 year old male who presents to establish care. 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 Martinez, Dr. Royal Jordan-Cardiology [facility], [facility] Last provider: Dr. Silva Any [...] he turned 79 years old. [place] call [facility] and request records for any colonoscopy in 2015 or more recent. History of Present Illness [...] he had colonoscopy 6-7 years ago [place] [facility]. will call to access those records. pt has significant family history of colon cancer. will send stool to lab, will draw CBC and clotting studies in office today. will call patient tomorrow to advise if he should stop taking warfarin depending on lab results. all questions answered. RTC as needed Ordered: CBC w/ Auto Diff Fibrinogen Lvl [facility] Internal Ambulatory Referral PT & PTT Stool Occult Blood Stool Occult Blood TIBC Calculated 2. Family hx of colon cancer (Z80.0: Family history of malignant neoplasm of digestive organs) referral to Dr. Jiang placed for scope Ordered: [facility] Internal Ambulatory Referral Stool Occult Blood 3. Colon cancer screening (Z12.11: Encounter for screening for malignant neoplasm of colon) see above Ordered: [facility] Internal Ambulatory Referral Stool Occult Blood 4. BMI 31.0-31.9,adult (Z68.31: Body mass index [BMI] 31.0-31.9, adult) BMI education complete Ordered: [facility] [facility] Internal Ambulatory Referral Stool Occult Blood Follow-up [...] neoplasm of (more content not included)... Normal [facility] Comment on above: Result Comment: Elec tronically Signed By: Leidy Simms\.br\Date and Time Signed: 12/11/22 13:48 EDT HEMATOLOGYOrdered By: SYSTEM SYSTEM on 12-11-2022 Basophils/100 WBC (Bld) 0.5 % Normal 0.0 - 2.0 % [facility] HemeAutoSS Basophils/Leukocytes Auto (Bld) [Pure # fraction] [...] 2.4 E12/L Low 4.3 - 5.9 E12/L [facility] HemeAutoSS WBC corrected for nucl RBC Auto (Bld) [#/Vol] 5.2 E9/L Normal 4.0 - 11.0 E9/L [facility] HemeAutoSS MICRO OTHER TESTSOrdered By: Daniella Case on 12-11-2022 Occult Bld Stl Positive *ABN* (12/11/22 12:14 PM) Invalid Interpretation Code Negative [facility] Man Sero PROF 14(COMP METB)on 023 Albumin [Mass/Vol] 3.8 g/dL Normal 3.4-5.0 [facility] Comment on above: Performed By: #### B MP #### [facility] [address] [place] [address] Dr. Rashmi Nolan Albumin/Globulin [Mass ratio] 1.1 {ratio} Normal Comment on above: Performed By: #### B MP #### [facility] [address] [place] [address] Dr. Rashmi Nolan ALP [Catalytic activity/Vol] 178 U/L Critically high 46-116 Comment on above: Performed By: #### B MP #### [facility] [address] [place] [address] Dr. Rashmi Nolan ALT [Catalytic activity/Vol] 17 U/L Normal 16-63 Comment on above: Performed By: #### B MP #### [facility] [address] [address] [address] Rashmi Nolan Anion gap [Moles/Vol] 15.6 mmol/L Normal [facility] Comment on above: Performed By: #### B MP #### [facility] [address] [place] [address] Dr. Rashmi Nolan AST [Catalytic activity/Vol] 12 U/L Critically low 15-37 Comment on above: Performed By: #### B MP #### [facility] [address] [place] [address] Dr. Rashmi Nolan Bilirubin [Mass/Vol] 0.2 mg/dL Normal 0.2-1.0 Comment on above: Performed By: #### B MP #### [facility] [address] [place] [address] Dr. Rashmi Nolan Calcium [Mass/Vol] 9.5 mg/dL Normal 8.5-10.1 [facility] Comment on above: Performed By: #### B MP #### [facility] [address] [address] [address] Rashmi Nolan Chloride [Moles/Vol] 109 mmol/L Critically high 98-107 Comment on above: Performed By: #### B MP #### [facility] [address] [place] [address] Dr. Rashmi Nolan CO2 [Moles/Vol] 22.5 mmol/L Normal 21.0-32.0 [facility] Comment on above: Performed By: #### B MP #### [facility] [address] [place] [address] Dr. Rashmi Nolan Creatinine [Mass/Vol] 2.11 mg/dL Critically high 0.70-1.30 Comment on above: Performed By: #### B MP #### [facility] [address] [place] [address] Dr. Rashmi Nolan EGFR-AF ERITREAN 36 mL/min/1.73m2 Critically low >=60 Comment on above: Performed By: #### B MP #### [facility] [address] [place] [address] Dr. Rashmi Nolan EGFR-NON AF ERITREAN 30 mL/min/1.73m2 Critically low >=60 Comment on above: Performed By: #### B MP #### [facility] [address] [place] [address] Dr. Rashmi Nolan Globulin (S) [Mass/Vol] 3.4 g/dL Normal Comment on above: Performed By: #### B MP #### [facility] [address] [place] [address] Dr. Rashmi Nolan Glucose [Mass/Vol] 115 mg/dL Critically high 74-106 [facility] Comment on above: Performed By: #### B MP #### [facility] [address] [address] [address] Rashmi Nolan Potassium [Moles/Vol] 5.1 mmol/L Normal 3.5-5.1 Comment on above: Performed By: #### B MP #### [facility] [address] [address] [address] Rashmi Nolan Protein [Mass/Vol] 7.2 g/dL Normal 6.4-8.2 [facility] Comment on above: Performed By: #### B MP #### [facility] [address] [address] [address] Rashmi Nolan Sodium [Moles/Vol] 142 mmol/L Normal 136-145 [facility] Comment on above: Performed By: #### B MP #### [facility] [address] [address] [address] Rashmi Nolan Urea nitrogen [Mass/Vol] 57.0 mg/dL Critically high 7.0-18.0 Comment on above: Performed By: #### B MP #### [facility] [address] [address] [address] Rashmi Nolan Urea nitrogen/Creatinine [Mass ratio] 27.0 mg/mg Normal Comment on above: Performed By: #### B MP #### [facility] [address] [address] [address] Rashmi Nolan PROTIMEon 12-11-2022 INR Coag (PPP) [Relative time] 1.95 {INR} Normal Comment on above: Performed By: #### P T, PTT #### [facility] [address] [address] [address] Rahsmi Nolan INR GUIDELINES SEE BELOW Normal [facility] Comment on above: Result Comment: ENOC RED INR: 2.0 - 3.0 CONDITIONS NOT LISTED BELOW 2.5 - 3.5 FOR PROSTHETIC HEART VALVE REPLACEMENT 2.5 - 3.5 RECURRENT THROMBOSIS Performed By: #### P T, PTT #### [facility] [address] [address] [address] Rashmi Nolan PT Coag (PPP) [Time] 19.9 s Critically high 9.0-11.6 Comment on above: Performed By: #### P T, PTT #### [facility] [id number] Rashmi Nolan PTTon 12-11-2022 aPTT Coag (Bld) [Time] 30.3 s Normal 22.3-36.2 Comment on above: Performed By: #### P T, PTT #### [facility] [address] [place] [address] Dr. Rashmi Nolan Stl Oclt Bldon 12-11-2022 Occult Bld Stl Positive Abnormal Negative [facility] Comment on above: Performed By: #### 2 [id number] ####[facility] [id number] [place] [address] TIBC Calculatedon 12-11-2022 Iron binding capacity [Mass/Vol] 417 microgram/dL High 250-400 [facility] Comment on above: Performed By: #### 2 [id number], [id number] ####[facility] [id number] [place] [address] Transferrin [Mass/Vol] 298 mg/dL Normal 200-370 [facility] Comment on above: Performed By: #### 2 [id number], [id number], [id number] ####[facility] [id number] [place] [address] TYPE AND SCREENon 12-11-2022 TYPE AND SCREEN Negative Normal [facility] Comment on above: Performed By: #### C BC #### [facility] [address] [place] [address] Dr. Rashmi Nolan XR CHEST 1 Von [...] STEPHANIE LIU Date: 2022-12-11 21:04 Normal [facility] Inpatient Patient Summaryon 12-10-2022 Inpatient Patient Summary [place] [id number] Patient Discharge Instructions Name: RY LERNER : 1935 Patient Address: [address] [place] [address] Primary Care Provider: Name: John Nieves MD After you are discharged if you find you have any questions, please, call [phone] ext [phone] to speak to a nurse. 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 If you or anyone you know is experiencing suicidal thoughts, mental health, alcohol and/or drug addiction problems; contact the [facility] 18/02 Crisis Hotline -Text 4HCQZ xf 832313. If you received any narcotics, sedation, or [...] business decisions or sign any legal documents [facility] would like to thank you for allowing us to assist you with your healthcare needs. The following includes patient education materials and information regarding your injury/illness. RY LERNER has been given the following list of follow-up instructions, prescriptions, and patient education materials: Follow-up Instructions With: Address: When: Ward Martinez [address] [place] [address], [address] [place] [address] Business (1) 12/18/2022 1:30 PM Medications During [...] 3. DO NOT lift heavy objects or production grip forcefully with your hand 4. Change your [...] or concerns, please call the office at [phone] 7. Follow up as scheduled Viruses or [...] Services Centers for Disease Control and Prevention Septe (more content not included)... [facility] Preoperative Record [facility] Pre-Op Record Summary Primary Physician: Ward Martinez DO Finalized Date/Time: 12/10/22 15:29:41 Pt. Name: RY LERNER/Sex: 1935 MALE Med Rec #: [id number] Physician: Ward Martinez DO Financial #: [id number] Pt. Type: D Room/Bed: / Admit/Disch: 12/10/22 [...] consent correct. General Comments: pt arrives to [facility] ambulatory. denies CP,cough,cold, COVID like symtpoms. 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 Finalized By: Maile Palmer RN Document Signatures Signed By: Maile Palmer RN 12/10/22 15:29 Normal [facility] Patient Handouton 12-10-[address] 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 Keep your hand elevated above your elbow for the first 24 hours after surgery 2. Wiggle your fingers frequently while awake 3. DO NOT lift heavy objects or production grip forcefully with your hand 4. Change your [...] or concerns, please call the office at [phone] 7. Follow up as scheduled Normal [facility] Historical Records Officeon 11-14-2022 Historical Records Office [id number] #1.00CD:127 Normal [facility] 36on 11-13-2022 36 Potassium was high, renal function is stable. Can stop taking potassium supplement and repeat BMP in one week. Normal [facility] Physician Referralon 023 Physician Referral [id number]#1.00CD:127 Normal [facility] Physician Referral [id number] #1.00CD:127 Normal [facility] MAGNESIUMon 11-06-2022 Magnesium [Mass/Vol] 2.2 mg/dL Normal 1.8-2.4 [facility] Comment on above: Performed By: #### B MP MG #### [facility] [address] [place] [address] Dr. Rashmi Nolan Office Visiton 11-06-2022 Follow-up visit [id number] Ry Lerner 1935 [facility] Provider Department [place] 11/06/2022 [id number] Family History Family history unknown: Yes Level of Service:26955 [place] OFFICE/OUTPATIENT ESTABLISHED MOD MDM 30-39 MIN Reason for Visit and Comments: Atrial Fibrillation [80] Hypertension [058241] Normal [facility] PROF CHEM 8 (BAS METB)on Anion gap [Moles/Vol] 15.0 mmol/L Normal [facility] Comment on above: Performed By: #### B MP, MG #### [facility] [address] [address] [address] Rashmi Nolan Calcium [Mass/Vol] 10.0 mg/dL Normal 8.5-10.1 [facility] Comment on above: Performed By: #### B MP, MG #### [facility] [address] [address] [address] Rashmi Nolan Chloride [Moles/Vol] 108 mmol/L Critically high 98-107 Comment on above: Performed By: #### B MP, MG #### [facility] [address] [place] [address] Dr. Rashmi Nolan CO2 [Moles/Vol] 25.4 mmol/L Normal 21.0-32.0 [facility] Comment on above: Performed By: #### B MP, MG #### [facility] [address] [address] [address] Rashmi Nolan Creatinine [Mass/Vol] 1.98 mg/dL Critically high 0.70-1.30 Comment on above: Performed By: #### B MP, MG #### [facility] [address] [place] [address] Dr. Rashmi Nolan EGFR-AF ERITREAN 39 mL/min/1.73m2 Critically low >=60 Comment on above: Performed By: #### B MP, MG #### [facility] [address] [place] [address] Dr. Rashmi Nolan EGFR-NON AF ERITREAN 32 mL/min/1.73m2 Critically low >=60 Comment on above: Performed By: #### B MP, MG #### [facility] [address] [address] [address] Rashmi Nolan Glucose [Mass/Vol] 99 mg/dL Normal 74-106 [facility] Comment on above: Performed By: #### B MP, MG #### [facility] [address] [place] [address] Dr. Rashmi Nolan Potassium [Moles/Vol] 5.4 mmol/L Critically high 3.5-5.1 Comment on above: Performed By: #### B MP, MG #### [facility] [address] [address] [address] Rashmi Nolan Sodium [Moles/Vol] 143 mmol/L Normal 136-145 [facility] Comment on above: Performed By: #### B MP, MG #### [facility] [address] [place] [address] Dr. Rashmi Nolan Urea nitrogen [Mass/Vol] 52.0 mg/dL Critically high 7.0-18.0 Comment on above: Performed By: #### B MP, MG #### [facility] [address] [place] [address] Dr. Rashmi Nolan Urea nitrogen/Creatinine [Mass ratio] 26.3 mg/mg Normal Comment on above: Performed By: #### B MP, MG #### [facility] [address] [place] [address] Dr. Rashmi Nolan EMG Electromyographyon 10-16 EMG Electromyography [id number] #1.00CD:127 Normal [facility] EMG Electromyography [id number] #1.00CD:127 Normal [facility] Lab Reportson 10-16-2022 Lab Reports [id number]# 1.00CD:127 Normal [facility] VIT B12 AND FOLATEon 023 Cobalamin (Vitamin B12) [Mass/Vol] 514.0 pg/mL Normal 193.0-986.0 Comment on above: Performed By: #### B MP #### [facility] [address] [address] [address] Rashmi Nolan FOLATE 10.00 ng/mL Normal 8.60-58.90 Comment on above: Performed By: #### B MP #### [facility] [address] [address] [address] Rashmi Nolan CBC AUTO DIFFon 08-16-2022 BASO # 0.0 103/ul Normal 0.0-0.1 Comment on above: Performed By: #### B MP #### [facility] [address] [address] [address] Rashmi Nolan Basophils/100 WBC (Bld) 0.8 % Normal 0.2-2.0 Comment on above: Performed By: #### B MP #### [facility] [address] [address] [address] Rashmi Nolan EO # 0.3 103/ul Normal 0.0-0.7 Comment on above: Performed By: #### B MP #### [facility] [address] [address] [address] Rashmi Nolan Eosinophils/100 WBC (Bld) 7.8 % Critically high 0.9-7.0 Comment on above: Performed By: #### B MP #### [facility] [address] [address] [address] Rashmi Nolan Erythrocyte distribution width (RBC) [Ratio] 13.2 % Normal 11.0-15.0 Comment on above: Performed By: #### B MP #### [facility] [address] [place] [address] Dr. Rashmi Nolan Hematocrit (Bld) [Volume fraction] 33.2 % Critically low 42.0-54.0 Comment on above: Performed By: #### B MP #### [facility] [address] [place] [address] Dr. Rashmi Nolan Hemoglobin (Bld) [Mass/Vol] 10.8 g/dL Critically low 14.0-18.0 Comment on above: Performed By: #### B MP #### [facility] [address] [address] [address] Rashmi Nolan IG # 0.01 10e3/ul Normal 0.00-0.03 Comment on above: Performed By: #### B MP #### [facility] [address] [address] [address] Rashmi Nolan IG % 0.3 % Normal 0.0-0.5 Comment on above: Performed By: #### B MP #### [facility] [address] [address] [address] Rashmi Nolan LYMPH # 1.0 103/ul Critically low 1.2-3.8 [facility] Comment on above: Performed By: #### B MP #### [facility] [address] [place] [address] Dr. Rashmi Nolan Lymphocytes/100 WBC (Bld) 24.7 % Normal 20.5-60.0 Comment on above: Performed By: #### B MP #### [facility] [address] [place] [address] Dr. Rashmi Nolan MANUAL DIFF REQ NO Normal [facility] Comment on above: Performed By: #### B MP #### [facility] [address] [place] [address] Dr. Rashmi Nolan MCH (RBC) [Entitic mass] 33.0 pg Normal 25.9-34.0 Comment on above: Performed By: #### B MP #### [facility] [address] [place] [address] Dr. Rashmi Nolan MCHC (RBC) [Mass/Vol] 32.5 g/dL Normal 29.9-35.2 Comment on above: Performed By: #### B MP #### [facility] [address] [place] [address] Dr. Rashmi Nolan MCV (RBC) [Entitic vol] 101.5 fL Critically high 80.0-94.0 Comment on above: Performed By: #### B MP #### [facility] [address] [address] [address] Rashmi Nolan MONO # 0.4 103/ul Normal 0.3-0.8 Comment on above: Performed By: #### B MP #### [facility] [address] [address] [address] Rashmi Nolan Monocytes/100 WBC (Bld) 10.7 % Normal 1.7-12.0 Comment on above: Performed By: #### B MP #### [facility] [address] [address] [address] Rashmi Nolan NEUT # 2.1 103/ul Normal 1.4-6.5 Comment on above: Performed By: #### B MP #### [facility] [address] [address] [address] Rashmi Nolan Neutrophils/100 WBC (Bld) 55.7 % Normal 43.0-75.0 Comment on above: Performed By: #### B MP #### [facility] [address] [address] [address] Rashmi Nolan Platelet mean volume (Bld) [Entitic vol] 10.5 fL Normal 9.5-13.5 Comment on above: Performed By: #### B MP #### [facility] [address] [address] [address] Rashmi Nolan PLT 160 103/ul Normal 150-450 [facility] Comment on above: Performed By: #### B MP #### [facility] [address] [address] [address] Rashmi Nolan RBC 3.27 106/ul Critically low 4.70-6.10 [facility] Comment on above: Performed By: #### B MP #### [facility] [address] [address] [address] Rashmi Nolan WBC 3.8 103/ul Critically low 4.0-11.0 [facility] Comment on above: Performed By: #### B MP #### [facility] [address] [address] [address] Rashmi Nolan LIPID PROFILEon 08-16-2022 CHOL-HDL RATIO NORM SEE BELOW Normal [facility] Comment on above: Result Comment: 3.3 - 4.4 LOW RISK 4.4 - 7.1 AVERAGE RISK 7.1 - 11.0 MODERATE RISK >11.0 HIGH RISK Performed By: #### B MP #### [facility] [address] [address] [address] Rashmi Nolan Cholesterol [Mass/Vol] 166 mg/dL Normal <=200 Comment on above: Performed By: #### B MP #### [facility] [address] [address] [address] Rashmi Nolan Cholesterol in HDL [Mass/Vol] 42 mg/dL Normal 40-60 Comment on above: Performed By: #### B MP #### [facility] [address] [address] [address] Rashmi Nolan Cholesterol in LDL [Mass/Vol] 110.4 mg/dL Normal Comment on above: Performed By: #### B MP #### [facility] [address] [address] [address] Rashmi Nolan Cholesterol.total/Cho lesterol in HDL [Mass ratio] 4.0 {ratio} Normal Comment on above: Performed By: #### B MP #### [facility] [address] [address] [address] Rashmi Nolan HDL NORMAL > or = 60 mg/dl - LOW CARDIOVASCULAR RISK <40 mg/dl - HIGH CARDIOVASCULAR RISK Normal Comment on above: Performed By: #### B MP #### [facility] [id number] Rashmi Nolan LDL CALC NORMAL SEE BELOW Normal [facility] Comment on above: Result Comment: <100 mg/dl OPTIMAL 100 - 129 mg/dl NEAR OR ABOVE OPTIMAL 130 - 159 mg/dl BORDERLINE HIGH 160 - 189 mg/dl HIGH >190 mg/dl VERY HIGH Performed By: #### B MP #### [facility] [address] [address] [address] Rashmi Nolan Triglyceride [Mass/Vol] 68 mg/dL Normal <=150 Comment on above: Performed By: #### B MP #### [facility] [address] [place] [address] Dr. Rashmi Nolan VLDL CALC 13.6 mg/dL Normal Comment on above: Performed By: #### B MP #### [facility] [address] [place] [address] Dr. Rashmi Nolan PROF 14(COMP METB)on 023 Albumin [Mass/Vol] 3.9 g/dL Normal 3.4-5.0 [facility] Comment on above: Performed By: #### B MP #### [facility] [address] [place] [address] Dr. Rashmi Nolan Albumin/Globulin [Mass ratio] 1.1 {ratio} Normal Comment on above: Performed By: #### B MP #### [facility] [address] [place] [address] Dr. Rashmi Nolan ALP [Catalytic activity/Vol] 190 U/L Critically high 46-116 Comment on above: Performed By: #### B MP #### [facility] [address] [place] [address] Dr. Rashmi Nolan ALT [Catalytic activity/Vol] 15 U/L Critically low 16-63 Comment on above: Performed By: #### B MP #### [facility] [address] [place] [address] Dr. Rashmi Nolan Anion gap [Moles/Vol] 15.2 mmol/L Normal [facility] Comment on above: Performed By: #### B MP #### [facility] [address] [place] [address] Dr. Rashmi Nolan AST [Catalytic activity/Vol] 17 U/L Normal 15-37 Comment on above: Performed By: #### B MP #### [facility] [address] [place] [address] Dr. Rashmi Nolan Bilirubin [Mass/Vol] 0.4 mg/dL Normal 0.2-1.0 Comment on above: Performed By: #### B MP #### [facility] [address] [place] [address] Dr. Rashmi Nolan Calcium [Mass/Vol] 10.0 mg/dL Normal 8.5-10.1 [facility] Comment on above: Performed By: #### B MP #### [facility] [address] [place] [address] Dr. Rashmi Nolan Chloride [Moles/Vol] 108 mmol/L Critically high 98-107 Comment on above: Performed By: #### B MP #### [facility] [address] [place] [address] Dr. Rashmi Nolan CO2 [Moles/Vol] 25.8 mmol/L Normal 21.0-32.0 [facility] Comment on above: Performed By: #### B MP #### [facility] [address] [place] [address] Dr. Rashmi Nolan Creatinine [Mass/Vol] 1.78 mg/dL Critically high 0.70-1.30 Comment on above: Performed By: #### B MP #### [facility] [address] [place] [address] Dr. Rashmi Nolan EGFR-AF ERITREAN 44 mL/min/1.73m2 Critically low >=60 Comment on above: Performed By: #### B MP #### [facility] [address] [place] [address] Dr. Rashmi Nolan EGFR-NON AF ERITREAN 36 mL/min/1.73m2 Critically low >=60 Comment on above: Performed By: #### B MP #### [facility] [address] [place] [address] Dr. Rashmi Nolan Globulin (S) [Mass/Vol] 3.7 g/dL Normal Comment on above: Performed By: #### B MP #### [facility] [address] [place] [address] Dr. Rashmi Nolan Glucose [Mass/Vol] 100 mg/dL Normal 74-[address] [facility] Comment on above: Performed By: #### B MP #### [facility] [address] [address] [address] Rashmi Nolna Potassium [Moles/Vol] 5.0 mmol/L Normal 3.5-5.1 Comment on above: Performed By: #### B MP #### [facility] [address] [address] [address] Rashmi Nolan Protein [Mass/Vol] 7.6 g/dL Normal 6.4-8.2 [facility] Comment on above: Performed By: #### B MP #### [facility] [address] [address] [address] Rashmi Nolan Sodium [Moles/Vol] 144 mmol/L Normal 136-145 [facility] Comment on above: Performed By: #### B MP #### [facility] [address] [address] [address] Rashmi Nolan Urea nitrogen [Mass/Vol] 52.0 mg/dL Critically high 7.0-18.0 Comment on above: Performed By: #### B MP #### [facility] [address] [address] Dr. Rashmi Nolan Urea nitrogen/Creatinine [Mass ratio] 29.2 mg/mg Normal Comment on above: Performed By: #### B MP #### [facility] [address] [address] [address] Rashmi Nolan Office Visiton 07-24-2022 Follow-up visit [id number] Ry Lerner 1935 M Date Provider Department Center 07/24/2022 ROYAL ENRIQUE [facility] No family history on file Level of Service:04420 [place] OFFICE/OUTPATIENT ESTABLISHED LOW MDM 20-29 MIN Reason for Visit and Comments: Chest Pain [506872] Normal [facility] PROF CHEM 8 (BAS METB)on Anion gap [Moles/Vol] 13.3 mmol/L Normal [facility] Comment on above: Performed By: #### C BC #### [facility] [address] [address] [address] Rashmi Nolan Calcium [Mass/Vol] 10.1 mg/dL Normal 8.5-10.1 [facility] Comment on above: Performed By: #### C BC #### [facility] [address] [address] [address] Rashmi Nolan Chloride [Moles/Vol] 104 mmol/L Normal 98-107 [facility] Comment on above: Performed By: #### C BC #### [facility] [address] [address] [address] Rashmi Nolan CO2 [Moles/Vol] 28.7 mmol/L Normal 21.0-32.0 The [facility] Comment on above: Performed By: #### C BC #### [facility] [address] [address] [address] Rashmi Nolan Creatinine [Mass/Vol] 1.87 mg/dL Critically high 0.70-1.30 Comment on above: Performed By: #### C BC #### [facility] [address] [address] [address] Rashmi Nolan EGFR-AF ERITREAN 42 mL/min/1.73m2 Critically low >=60 Comment on above: Performed By: #### C BC #### [facility] [address] [address] [address] Rashmi Nolan EGFR-NON AF ERITREAN 34 mL/min/1.73m2 Critically low >=60 [facility] Comment on above: Performed By: #### C BC #### [facility] [address] [address] [address] Rashmi Nolan Glucose [Mass/Vol] 101 mg/dL Normal 74-106 [facility] Comment on above: Performed By: #### C BC #### [facility] [address] [address] [address] Rashmi Nolan Potassium [Moles/Vol] 5.0 mmol/L Normal 3.5-5.1 [facility] Comment on above: Performed By: #### C BC #### [facility] [address] [address] [address] Rashmi Nolan Sodium [Moles/Vol] 141 mmol/L Normal 136-145 [facility] Comment on above: Performed By: #### C BC #### [facility] [address] [place] [address] Dr. Rashmi Nolan Urea nitrogen [Mass/Vol] 41.0 mg/dL Critically high 7.0-18.0 Comment on above: Performed By: #### C BC #### [facility] [address] [place] [address] Dr. Rashmi Nolan Urea nitrogen/Creatinine [Mass ratio] 21.9 mg/mg Normal Comment on above: Performed By: #### C BC #### [facility] [address] [place] [address] Dr. Rashmi Nolan COVID/FLU RT-PCRon SARS-CoV-2 (COVID-19) RNA ETELVINA+probe Ql (Unsp spec) Positive [employer] Other COVID/FLU RT-PCR Negative [facility] [employer] Other BNPon 02-15-2022 Natriuretic peptide B (Bld) [Mass/Vol] 1653.0 pg/mL Normal <=1,800.0 Comment on above: Performed By: #### C BC #### [facility] [address] [place] [address] Dr. Rashmi Nolan PROF CHEM 8 (BAS METB)on Anion gap [Moles/Vol] 15.8 mmol/L Normal [facility] Comment on above: Performed By: #### C BC #### [facility] [address] [place] [address] Dr. Rashmi Nloan Calcium [Mass/Vol] 9.6 mg/dL Normal 8.5-10.1 [facility] Comment on above: Performed By: #### C BC #### [facility] [address] [place] [address] Dr. Rashmi Nolan Chloride [Moles/Vol] 108 mmol/L Critically high 98-107 Comment on above: Performed By: #### C BC #### [facility] [address] [address] [address] Rashmi Nolan CO2 [Moles/Vol] 24.2 mmol/L Normal 21.0-32.0 [facility] Comment on above: Performed By: #### C BC #### [facility] [address] [address] [address] Rashmi Nolan Creatinine [Mass/Vol] 1.87 mg/dL Critically high 0.70-1.30 Comment on above: Performed By: #### C BC #### [facility] [address] [address] [address] Rashmi Nolan EGFR-AF ERITREAN 42 mL/min/1.73m2 Critically low >=60 Comment on above: Performed By: #### C BC #### [facility] [address] [place] [address] Dr. Rashmi Nolan EGFR-NON AF ERITREAN 34 mL/min/1.73m2 Critically low >=60 Comment on above: Performed By: #### C BC #### [facility] [address] [place] [address] Dr. Rashmi Nolan Glucose [Mass/Vol] 107 mg/dL Critically high 74-106 [facility] Comment on above: Performed By: #### C BC #### [facility] [address] [address] [address] Rashmi Nolan Potassium [Moles/Vol] 5.0 mmol/L Normal 3.5-5.1 Comment on above: Performed By: #### C BC #### [facility] [address] [address] [address] Rashmi Nolan Sodium [Moles/Vol] 143 mmol/L Normal 136-145 [facility] Comment on above: Performed By: #### C BC #### [facility] [address] [address] [address] Rashmi Nolan Urea nitrogen [Mass/Vol] 28.0 mg/dL Critically high 7.0-18.0 Comment on above: Performed By: #### C BC #### [facility] [address] [place], [place] [address] Dr. Rashmi Nolan Urea nitrogen/Creatinine [Mass ratio] 15.0 mg/mg Normal Comment on above: Performed By: #### C BC #### [facility] [id number] Rashmi Nolan APTTon 10-13-2021 aPTT Coag (Bld) [Time] 36.7 s High 25.0-35.0 [facility] Comment on above: Result Comment: ALL RESULTS [...] PURPOSE. Performed By: #### 5 0103 #### [facility] [address] [place] [address], [facility] BASIC METABOLIC PANELon 09-26 Calcium [Mass/Vol] 9.7 mg/dL Normal 8.6-10.3 [facility] Comment on above: Performed By: #### 0 0071, 78168, 22465, 46327 #### [facility] [address] [place] [address], [place] Chloride [Moles/Vol] 108 mmol/L High 98-107 [facility] Comment on above: Performed By: #### 0 0071, 42908, 20523, 61453 #### [facility] [address] [place] [address], [place] CO2 [Moles/Vol] 23 mmol/L Normal 21-31 [facility] Comment on above: Performed By: #### 0 0071, 84878, 36550, 41572 #### [facility] [address] [place] [address], [place] Creatinine [Mass/Vol] 1.98 mg/dL High 0.70-1.30 [facility] Comment on above: Performed By: #### 0 0071, 56589, 85445, 23159 #### [facility] [address] [place] [address], [place] eGFR- 39 ml/min/1.73sq m Abnormal >60 The [facility] Comment on above: Result Comment: Calc ulation may not be valid for patients over 70 years Performed By: #### 0 0071, 17052, 56367, 67860 #### [facility] [address] [place] [address], [place] eGFR- non- 32 ml/min/1.73sq m Abnormal >60 [facility] Comment on above: Result Comment: Calc ulation may not be valid for patients over 70 years Performed By: #### 0 0071, 66572, 81717, 72175 #### [facility] [address] [place] [address], [place] Glucose [Mass/Vol] 88 mg/dL Normal 70-100 The [facility] Comment on above: Performed By: #### 0 0071, 58909, 94525, 14165 #### [facility] [address] [place] [address], [place] Potassium [Moles/Vol] 4.8 mmol/L Normal 3.5-5.1 [facility] Comment on above: Performed By: #### 0 0071, 44756, 86181, 30491 #### [facility] [address] [place] [address], [place] Sodium [Moles/Vol] 138 mmol/L Normal 136-145 [facility] Comment on above: Performed By: #### 0 0071, 48348, 83208, 67206 #### [facility] [address] [place] [address], [place] Urea nitrogen [Mass/Vol] 46 mg/dL High 7-25 [facility] Comment on above: Performed By: #### 0 0071, 23150, 73036, 06085 #### [facility] [address] BNP EDon 10-13-2021 Natriuretic peptide B (Bld) [Mass/Vol] 428 pg/mL High 0-100 The [facility] Comment on above: Result Comment: Give n the appropriate clinical setting a BNP result of >100 pg/mL indicates congestive heart failure. Performed By: #### 3 0935 #### [facility] [address] [place] [address], [facility] CBC W/DIFFon 10-13-2021 ABS IMM GRANS 0.0 10*3/uL Normal 0.0-0.2 The [facility] Comment on above: Performed By: #### 5 0103 #### [facility] [address] [place] [address], [facility] ABS NEUTROPHILS 2.8 10*3/uL Normal 1.6-7.6 The [facility] Comment on above: Performed By: #### 5 0103 #### [facility] [address] [place] [address], [facility] Basophils (Bld) [#/Vol] 0.0 10*3/uL Normal 0.0-0.2 The [facility] Comment on above: Performed By: #### 5 0103 #### [facility] [address] [place] [address], [facility] Basophils/100 WBC (Bld) 0.5 % Normal 0.0-1.0 The [facility] Comment on above: Performed By: #### 5 0103 #### [facility] [address] [place] [address], [facility] Eosinophils (Bld) [#/Vol] 0.3 10*3/uL Normal 0.0-0.5 The [facility] Comment on above: Performed By: #### 5 0103 #### [facility] [address] [place] [address], [facility] Eosinophils/100 WBC (Bld) 7.4 % High 0.0-6.0 The [facility] Comment on above: Performed By: #### 5 0103 #### [facility] [address] [facility] Erythrocyte distribution width (RBC) [Ratio] 13.9 % Normal 11.5-15.0 [facility] Comment on above: Performed By: #### 5 0103 #### [facility] [address] [facility] [place] [address], [facility] Hematocrit (Bld) [Volume fraction] 33.5 % Low 39.0-50.0 The [facility] Comment on above: Performed By: #### 5 0103 #### [facility] [address] [facility]. [address] Hemoglobin (Bld) [Mass/Vol] 11.4 g/dL Low 13.0-17.0 [facility] Comment on above: Performed By: #### 5 0103 #### [facility] [address] [facility] [address], [facility] IMMATURE GRANS 0.2 % Normal 0.0-1.[address] [facility] [address] Comment on above: Performed By: #### 5 0103 #### [facility] [address] [facility] [address], [facility] Lymphocytes (Bld) [#/Vol] 0.9 10*3/uL Low 1.2-4.0 The [facility] Comment on above: Performed By: #### 5 0103 #### [facility] [address] [place] [address], [facility] Lymphocytes/100 WBC (Bld) 20.1 % Normal 20.0-45.0 The [facility] Comment on above: Performed By: #### 5 0103 #### [facility] [address] [facility] [address], [facility] MCH (RBC) [Entitic mass] 33.1 pg High 27.0-33.0 The [facility] Comment on above: Performed By: #### 5 3 #### [facility] [address] [facility] [address], [facility] MCHC (RBC) [Mass/Vol] 34.0 g/dL Normal 32.0-35.0 [facility] Comment on above: Performed By: #### 5 0103 #### [facility] [address] [place] [address], [facility] MCV (RBC) [Entitic vol] 97.4 fL Normal 82.0-98.0 The [facility] Comment on above: Performed By: #### 5 3 #### [facility] [address] [place] [address], [facility] Monocytes (Bld) [#/Vol] 0.4 10*3/uL Normal 0.1-1.0 The [facility] Comment on above: Performed By: #### 5 0103 #### [facility] [address] MONOS 8.4 % Normal 5.0-12.0 The [facility] Comment on above: Performed By: #### 5 3 #### [facility] [address] Neutrophils/100 WBC (Bld) 63.4 % Normal 40.0-72.0 The [facility] Comment on above: Performed By: #### 5 3 #### [facility] [address] [facility] [address], [facility] Nucleated RBC/100 WBC (Bld) [Ratio] 0 % Normal 0-0 The [facility] Comment on above: Performed By: #### 5 3 #### [facility] [address] [facility] [place] [address], [facility] PLAT CNT 116 10*3/uL Low 150-400 [facility] Comment on above: Performed By: #### 5 0103 #### [facility] [address] [facility] [place] [address], [facility] RBC (Bld) [#/Vol] 3.44 10*6/uL Low 4.20-5.70 The [facility] Comment on above: Performed By: #### 5 0103 #### [facility] [address] [facility] [place] [address], [facility] WBC (Bld) [#/Vol] 4.43 10*3/uL Normal 4.00-10.60 [facility] Comment on above: Performed By: #### 5 0103 #### [facility] [address] [place], [place] [id number] [place] [address] Cardiovascular Lab Reporton 10-13-2021 Cardiovascular Lab Report [facility] Patient Name: [facility] MR #: [id number] Physician: Royal Gandara MD Department of Service Date: 10/13/2021 Medicine Birthdate: 1935 Division of Room #: [facility] [place] [address] Cardiovascular Laboratory Report PACEMAKER IMPLANT PROCEDURE NOTE DATE OF PROCEDURE: 10/13/2021 PERFORMING PHYSICIAN: Dr. Royal Gandara CONSENT: Patient LOCATION: EP Lab PROCEDURE PERFORMED: 1. Implantation of pacemaker ([employer]) 2. Ultrasound guided venous access INDICATIONS: [...] previously recommended a pacemaker, however, presented to [place] ED with a ventricular rate in the 30s. He was subsequently transferred over to [facility] ED for a pacemaker placement. Patient was [...] using modified seldinger technique using a 5 [place] Islander micro-puncture needle on one occasion and 0.35 wire was placed. Local infiltration of 1% Lidocaine was performed, and an incision was created in the left upper chest. Dissection was then performed using cautery down to the fascial plane above the muscle. A small pocket was created for the device. 6 [place]er Safesheaths were placed over the wire. An active fixation [employer] pacing lead was then delivered through the 6Fsheath to the right ventricle. After confirmation of lead position on orthogonal views (HANSEN and QUINTIN) to confirm septal position, the screw was [...] immediate procedural complications were noted. Device info: [employer] Accolade MRI EL Model# L331 Serial# [id number] RV lead: Model# [id number] [id number] (59cms) Serial# [id number] Sensin.4mV Threshold: 0.6V@0.4ms Impedance: 598 Ohms POST [...] discharge or sooner for any concerns. Royal Gandara MD Cardiac Electrophysiology Electronically Signed by: Royal Gandara MD 10/15/2021 10:00 A Royal Gandara MD Date Dict: 10/13/2021/10:04 A/Royal Gandara MD Date Trans: 10/13/2021 10:46 Alcides/oscar [id number] cc: Jason Silva M.D. [address] [place] [id number] Normal The [facility] FRESH FROZEN PLASMA 1 UNITon 10-13-2021 PRODUCT CODE 1 E2701 Normal The [facility] Comment on above: Order Comment: INR: 2.88 ,PTT: 36.7 at the time of order ;Indication: Other pacemaker placement Performed By: #### 8 7001 #### [facility] [address] [facility] [address], [facility] PRODUCT STATUS 1 RE Normal The [facility] Comment on above: Order Comment: INR: 2.88 ,PTT: 36.7 at the time of order ;Indication: Other pacemaker placement Result Comment: Resu lt changed by IF on 10/19/2021 01:00. The previous value was XM. Performed By: #### 8 7001 #### [facility] [address] [place] [address], [facility] UNIT ABO 1 O Normal The [facility] Comment on above: Order Comment: INR: 2.88 ,PTT: 36.7 at the time of order ;Indication: Other pacemaker placement Performed By: #### 8 7001 #### [facility] [address] UNIT ID 1 [id number] Normal The [facility] Comment on above: Order Comment: INR: 2.88 ,PTT: 36.7 at the time of order ;Indication: Other pacemaker placement Performed By: #### 8 7001 #### [facility] [address] [place] [address], [facility] UNIT RH 1 Negative Normal The [facility] Comment on above: Order Comment: INR: 2.88 ,PTT: 36.7 at the time of order ;Indication: Other pacemaker placement Performed By: #### 8 7001 #### [facility] [address] LIVER BATTERYon 10-13-2021 Albumin [Mass/Vol] 4.0 g/dL Normal 3.5-5.7 [facility] Comment on above: Performed By: #### 0 0071, 20120, 74949, 28615 #### [facility] [address] [place] [address], [facility] ALKALINE PHOSPH 137 IU/L High 34-104 The [facility] Comment on above: Performed By: #### 0 0071, 45349, 83987, 60640 #### [facility] [address] [place] [address], [facility] ALT [Catalytic activity/Vol] 29 U/L Normal 7-52 [facility] Comment on above: Performed By: #### 0 0071, 71215, 52472, 11102 #### [facility] [address] [place] [address], [facility] AST [Catalytic activity/Vol] 22 U/L Normal 13-39 [facility] Comment on above: Performed By: #### 0 0071, 37718, 32168, 72547 #### [facility] [address] [place] [address], [facility] Bilirubin [Mass/Vol] 0.7 mg/dL Normal 0.3-1.0 [facility] Comment on above: Performed By: #### 0 0071, 90720, 30489, 90870 #### [facility] [address] [place] [address], [facility] Bilirubin.direct [Mass/Vol] 0.1 mg/dL Normal 0.0-0.2 The [facility] Comment on above: Performed By: #### 0 0071, 76112, 26819, 27555 #### [facility] [address] [place] [address], [facility] Protein [Mass/Vol] 6.3 g/dL Normal 6.0-8.3 The [facility] Comment on above: Performed By: #### 0 0071, 09554, 44278, 94440 #### [facility] [address] [facility] [address], [facility] MAGNESIUM BLOODon 10-13-2021 Magnesium [Mass/Vol] 2.0 mg/dL Normal 1.9-2.7 The [facility] Comment on above: Performed By: #### 0 0071, 11094, 21306, 99329 #### [facility] [address] [facility]. [address] POC SARS COV2 ANTIGEN NEGATI VEon 10-13-2021 POC SARS COV2 ANTIGEN NEG Negative Normal NEGATIVE The [facility] Comment on above: Result Comment: Nega tive [...] antigen from SARS-CoV-2 in direct nasopharyngeal swab (PRESS MAINTAINER) specimens from individuals who are suspected of [...] Accreditation. Performed By: #### 3 2044 #### [address] PORTABLE CHEST 1 VIEWon 09-26 PORTABLE CHEST 1 VIEW [facility] Department of Radiology [address] [place] [id number] Patient Name: RY LERNER : 1935 Sex: M Age: Race: White Pt. Location: [facility] Patient Status: E Ordered Date: 10/13/2021 4:40:00 [...] Approved by:Humble Alvarado10/13/2021 5:33 AM. I, Mark Aguilar,have reviewed the image(s) and agree with the findings in this report. Electronically signed: Mark Aguilar. Transcribed by: [email or web address], User Resident: HUMBLE HERNANDEZ Electronically Signed by: MARK AGUILAR @ 10/13/2021 05:55 AM I personally read this/these film(s) with this resident Normal The [facility] Comment on above: Order Comment: evalu ate for Infiltrates PROTHROMBIN TIMEon INR Coag (PPP) [Relative time] 2.88 {INR} High 0.91-1.16 [facility] Comment on above: Result Comment: [facility] P RECOMMENDED INR FOR WARFARIN THERAPY -------- [...] CHEST 1995;108:231S-246S. Performed By: #### 5 6101, 07450 #### [facility] [address] PT Coag (PPP) [Time] 30.0 s High 12.3-14.8 [facility] Comment on above: Result Comment: ALL RESULTS MUST BE INTERPRETED WITH RESPECT TO BLOOD DRAWING ARTIFACT OR DILUTION ERROR OF ANTICOAGULANT AT THE TIME OF SAMPLING. Performed By: #### 5 6101, 09203 #### [facility] [address] TROPONIN-Ion 10-13-2021 Troponin I.cardiac [Mass/Vol] 0.05 ng/mL High 0.00-0.04 [facility] Comment on above: Result Comment: REFE RENCE RANGES: 0.00 - 0.04 ng/ml NORMAL 0.05 - 0.50 ng/ml INDETERMINATE > 0.50 ng/ml CONSISTENT WITH AN M.I. Performed By: #### 0 0071, 14685, 79948, 28464 #### [facility] [address] [facility]. [address] TYPE AND SCREENon 10-13-2021 ABO INTERPRETATION O Normal [facility] Comment on above: Performed By: #### 5 0103 #### [facility] [address] [facility] [address] RH INTERPRETATION Positive Normal The [facility] Comment on above: Performed By: #### 5 0103 #### [facility] [address] [facility]. [address] Vital Signs Date Time Vital Sign Value Performing Clinician Facility 06-02-2022 14:50-0400 Body height 182.88 cm Sonja Aden Other [employer] Other 06-02-2022 14:50-0400 Body mass index (BMI) [Ratio] 29.73 kg/m2 Sonja Aden Other [employer] Other 06-02-2022 14:50-0400 Body temperature 99.6 [degF] Sonja Aden Other [employer] Other 06-02-2022 14:50-0400 Body weight 99.43 kg Sonja Aden Other [employer] Other 06-02-2022 14:50-0400 Diastolic blood pressure 54 mm[Hg] Sonja Aden Other [employer] Other 06-02-2022 14:50-0400 Respiratory rate 18 /min Sonja Aden Other [employer] Other 06-02-2022 14:50-0400 SaO2% (BldA) [Mass fraction] 95 % Sonja Aden Other [employer] Other 06-02-2022 14:50-0400 Systolic blood pressure 118 mm[Hg] Sonja Aden Other [employer] Other Encounters Encounter Date Encounter Type Care Provider Facility Start: 09-03-2023 ambulatory Leidy Rey Facility: [facility] Start: 08-29-2023 Bamboo flowsheet Hien Mcgrath [address] [employer]ODUCTION TEAM LEADER-CNC MANAGER Work Phone: [facility] Start: 08-29-2023 Bamboo flowsheet Hien A [address] PRODUCTION TEAM LEADER-CNC MANAGER Work Phone: [facility] Start: 08-29-2023 End: 08-29-2023 Office outpatient new 30 minutes Hien Huston PRODUCTION TEAM LEADER-CNC MANAGER Work Phone: [facility] Comment on above: Other atopic dermati tis (Primary Dx); Seborrheic keratosis Start: 08-28-2023 End: 08-29-2023 ambulatory John Nieves Facility:[facility] Start: 07-03-2023 End: 07-04-2023 ambulatory Leidy L Krissy Facility:[facility] Start: 07-02-2023 End: 07-02-2023 ambulatory [facility] Start: 05-15-2023 End: 05-15-2023 ambulatory [facility] Start: 02-08-2023 End: 02-08-2023 ambulatory [facility] Start: 01-22-2023 End: 01-23-2023 ambulatory Leidy L Krissy Facility:[facility] Start: 01-22-2023 End: 01-22-2023 Lab Drop off Leidy L Krissy [facility] Start: 12-31-2022 End: 12-31-2022 ambulatory [facility] Facility:[facility] Start: 12-25-2022 End: 12-26-[address] JASON SILVA . Facility: Start: 12-21-2022 End: 12-22-2022 ambulatory Leidy L Krissy Facility:[facility] Start: 12-17-2022 End: 01-16-2023 ambulatory Leidy L Krissy Facility:[id number] Start: 12-12-2022 End: 12-14-2022 Evaluation and management of inpatient DR JASON SILVA . Facility: Start: 12-11-2022 End: 12-12-2022 ambulatory Leidy L Krissy Facility:[facility] Start: 12-11-2022 End: 12-11-2022 Lab Drop off Leidy L Krissy [facility] Start: 12-10-2022 End: 12-10-2022 ambulatory [facility] Facility:[facility] Start: 11-27-2022 End: 11-27-2022 ambulatory [facility] Start: 11-26-2022 End: 12-26-2022 ambulatory HAYWARD H FAWWAD Facility:H1 Start: 11-06-2022 End: 11-07-[address] JASON SILVA . Facility:[facility]1 Start: 11-06-2022 End: 11-06-2022 ambulatory SOLIS VALLES [facility] Start: 10-29-2022 End: 11-23-2022 ambulatory HAYWARD H FAWWAD Facility:H1 Start: 10-09-2022 ambulatory Leidy Krissy Facility:[facility] Start: 09-26-2022 End: 10-26-2022 ambulatory HAYWARD H FAWWAD Facility:H1 Start: 08-29-2022 End: 09-26-2022 ambulatory HAYWARD H FAWWARDD Facility:H1 Start: 08-22-2022 End: 08-23-[address] JASON SILVA . Facility:[facility]1 Start: 08-16-2022 End: 08-17-[address] JASON SILVA . Facility:[facility]1 Start: 07-30-2022 End: 08-29-2022 ambulatory HAYWARD H FAWWAD Facility:H1 Start: 07-24-2022 End: 07-25-2022 ambulatory ROYAL GANDARA Facility:H1 Start: 07-24-2022 End: 07-24-2022 ambulatory ROYAL REICHCKO [facility] Start: 06-28-2022 End: 07-29-2022 ambulatory H GRACIAWWAD Facility:H1 Start: 06-02-2022 End: 06-02-2022 ambulatory Sonja Aden Other [employer] [facility] Start: 06-02-2022 Office outpatient ne w 30 minutes Sonja Aden [facility] Start: 05-29-2022 End: 06-27-2022 ambulatory HAYWARD H FAWWAD Facility:H1 Start: 04-29-2022 End: 05-28-2022 ambulatory HAYWARD H FAWWAD Facility:H1 Start: 03-29-2022 End: 04-28-2022 ambulatory HAYWARD H FAWWAD Facility:H1 Start: 03-20-2022 End: 03-20-2022 ambulatory UNKNOWN PROVIDER Facility:[facility] Start: 02-26-2022 End: 03-28-2022 ambulatory SHAIKH Joe JUNIOR Facility:H1 Start: 02-15-2022 End: 02-16-2022 ambulatory KELLY BONILLA Facility:H1 Start: 01-26-2022 End: 02-23-2022 ambulatory SHAIKH Joe JUNIOR Facility:H1 Start: 10-13-2021 End: 10-13-2021 ambulatory UNKNOWN PROVIDER Facility:[facility] Start: 10-13-2021 End: 10-13-2021 Emergency department patient visit PHYSICIAN UNKNOWN Facility:[facility] Procedures Date Procedure Procedure Detail Performing Clinician [...] above: Performed By: #### B MP #### [facility] [address] [address] [address] Rashmi Nloan Start: 10-13-2021 Antibody screen PHYSICI AN UNKNOWN Comment on above: Performed By: #### 5 [id number] #### [address] Start: 09-26-2021 Cardiac pacemaker, d evice (physical object) Leidy Rey Start: 02-26-2011 Colonoscopy Leidy cannon Start: 07-29-1995 TURP syndrome (disorder) Leidy Rey Start: 07-29-1993 Herniated structure (morphologic abnormality) Leidy Krissy Tonsillectomy and adenoidectomy Leidy Krissy Plan of Treatment Date Care Activity Detail Author Start: 08-29-2023 End: 08-29-2023 Patient encounter procedure 08/29/2023 1:00 PM EST Office Visit [facility] [address] [place] [phone] Hien Huston APRN-CNC MANAGER [address] [place] [address] Arrived [facility] Comment on above: Arrived Immunizations Immunization Date Immunization Notes Care Provider Fa cili 05-02-2022 influenza virus vaccine, unspecified formulation Leidy Krissy [facility] 05-02-2022 Seasonal trivalent influenza vaccine, adjuvanted, preservative free Hien Huston PRODUCTION TEAM LEADER-CNC MANAGER Work Phone: [facility] 09-17-2020 SARS-CoV-2 (COVID-19 ) mRNA BNT-162b2 vax Leidy Krissy [facility] Comment on above: Result Comment: 2022: [id number] 08-27-2020 SARS-CoV-2 (COVID-19 ) mRNA BNT-162b2 vax Leidy Krissy [facility] Comment on above: Result Comment: 2022: [id number] 06-13-2020 influenza virus vaccine, unspecified formulation Leidy Krissy [facility] 06-01-2019 influenza virus vaccine, unspecified formulation Leidy Krissy [facility] 04-14-2018 influenza virus vaccine, unspecified formulation Leidy Krissy [facility] 04-22-2017 influenza virus vaccine, unspecified formulation Leidy Krissy [facility] 05-01-2016 influenza virus vaccine, unspecified formulation Leidy Krissy [facility] 06-02-2015 influenza virus vaccine, unspecified formulation Leidy Krissy [facility] 05-31-2014 influenza virus vaccine, unspecified formulation Leidy Krissy [facility] 06-02-2013 influenza virus vaccine, unspecified formulation Leidy Krissy [facility] 05-29-2005 influenza, whole Leidy Krissy [facility] Payers Date Payer Category Payer Unknown [facility] 1999 Medicare MEDICARE MEDICAR E PART B [id number] 1999-[place] [address] Medicare [id number] 1959 Medicare [id number] 1934 Unknown [id number] 2.840.1.812624.3.579.2.647 1934 Unknown [id number] 2.840.1.788385.3.579.2.732 1934 Unknown [id number] 2.840.1.057120.3.579.2.732 1934 Unknown [id number] 2.16.840.1.963982.3.579.2.718 1934 Unknown [id number] 2.840.1.928094.3.579.2.718 1934 Unknown [id number] 2.16840.1.158749.3.579.2.593 1934 Unknown [id number] 2.16.840.1.348870.3.579.2.593 1934 Unknown [id number] 2.16.840.1.753471.3.579.2.593 1934 Unknown [id number] 2.16.840.1.696932.3.579.2.593 1934 Unknown [id number] 2.16.840.1.453329.3.579.2.593 1934 Unknown [id number] 2.16.840.1.502130.3.579.2.593 1934 Unknown [id number] 2..840.1.570037.3.579.2.593 1934 Unknown [id number] 2.840.1.468650.3.579.2.593 1934 Unknown [id number] 2.840.1.928502.3.579.2.593 1934 Unknown [id number] 2.840.1.774987.3.579.2.593 1934 Unknown [id number] 2..840.1.650107.3.579.2.593 1934 Unknown [id number] 2.840.1.835512.3.579.2.593 1934 Unknown [id number] 2.16.840.1.669992.3.579.2.593 1934 Unknown [id number] .16.840.1.747743.3.579.2.593 1934 Unknown [id number] 2.16.840.1.164719.3.579.2.593 1934 Unknown [id number] 2.16.840.1.578649.3.579.2.593 1934 Unknown [id number] 2.16.840.1.622829.3.579.2.593 1934 Unknown [id number] 2.16.840.1.613778.3.579.2.593 1934 Unknown [id number] 2.16.840.1.033161.3.579.2.727 1934 Unknown [id number] 2.16.840.1.488652.3.579.2.727 1934 Unknown [id number] 2.16.840.1.428476.3.579.2.727 1934 Unknown [id number] 2.16.840.1.307071.3.579.2.727 1934 Unknown [id number] 2.16.840.1.098099.3.579.2.727 1934 Unknown [id number] 2.16.840.1.406803.3.579.2.727 1934 Unknown [id number] 2.16.840.1.353470.3.579.2.727 1934 Unknown [id number] 2.16.840.1.766628.3.579.2.727 Social History Date Type Detail Facility Unknown if ever smoked [employer] [facility] Start: 02-05-2023 End: 08-29-2023 Sex Assigned At [facility] Start: 12-11-2022 End: 12-13-2022 Tobacco smoking status Never smoked tobacco (finding) [facility] Tobacco smoking status Never [facility] Comment on above: Quit in 2002 Start: 01-22-2023 Tobacco smoking status Ex-smoker (finding) [facility] Comment on above: Quit in 2002 Start: 12-13-2022 Tobacco use and exposure Smokeless tobacco non-user [facility] Start: 02-05-2023 End: 08-29-2023 Alcohol intake Current drinker of alcohol (finding) [facility] Start: 02-05-2023 End: 08-29-2023 History of Social function [facility] Start: 1935 Sex Assigned At Not on file [facility] Clinical Notes 10-13-2021 to 08-29-2023 ALEX Ledesma - 08/29/2023 1:00 PM EST Note Date & Type Note Facility 08-29-2023 History of Present illness Narrative Rash Location: hands, legs Duration: years Severity: mild Quality: itchy, denies burning Modifying Factors: none (pt uses homemade soaps in the shower) Associated symptoms: scaly Treatments tried: none Current treatments: none Lesion(s) Location: face, back Duration: years Quality: itchy Modifying factors: aggravated by picking Associated symptoms: rough Treatments: none New patient, referred by Leidy Rey MD All pertinent medical history, medications, and allergies were reviewed. General Exam: alert , oriented to person, place, and time , normal affect, well appearing Accompanied by spouse A focused exam completed based on patient reported problems, see below: 1. Other atopic dermatitis Left Hand - Anterior, Left Lower Leg - Anterior, Right Hand - Anterior, Right Lower Leg - Anterior, Torso - Posterior (Back) Scaly erythematous plaques +/- dyspigmentation, lichenification, excoriations. Discussed that atopic dermatitis is a chronic condition that can be controlled but not cured. Start Betamethasone ointment bid prn when flared, hold if smooth/asymptomatic. Encouraged daily moisturizing and gentle cleansers to prevent flares. Related Medications betamethasone dipropionate (Diprolene) 0.05 % ointment Apply to affected areas, up to twice a day when flared, do not use one the face, groin, or underarms, 30 day supply 2. Seborrheic keratosis Head - Anterior (Face) Stuck on verrucous, variably pigmented papules and plaques. Patient was counseled regarding these benign growths. Removal is normally not necessary, but they may be removed if they are symptomatic or for cosmetic reasons. 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 Per dr. Gandara 07/24/22 Pt states that he has chest [...] falls and he has been in the halfway lately. Device check performed on 06/12/2022 shows thresholds to be good. he is in persistent A. Fib and underwent a single-chamber pacemaker. with [employer] on 10/13/2021 and paced 65% Echocardiogram [...] stress test about 12 years ago in [place], and was in hospital with noted a fib currently on coumadin anticoagulation. Echocardiogram performed on 11/30/2020 at [facility] shows an ejection fraction of 55% [...] mg DR lindsay (more content not included)... [facility] 05-15-2023 Note Patient here for 3 m [...] All other systems reviewed and are negative. [facility] 02-18-2023 Note Stable -ct medications [facility] 02-18-2023 Note [id number]: at [facility] for age and htn -restart warfarin, will follow coumadin clinic here at [facility] -is to report any concerns for bleeding -follow up in 2 months to discuss how he is doing -patient prefers to not consider watchmen if he does not have to [facility] 02-08-2023 Note Patient here for [facility] for GI bleed. He was discharged on 12/14 and coumadin was put on hold. Denies chest pain, SOB, and palpitations. Lost his recently. Review of Systems Musculoskeletal: Positive for arthritis, joint pain and muscle cramps. Neurological: Positive for numbness. All other systems reviewed and are negative. [facility] 02-08-2023 Note [place] [facility] Consul t Note Reason for visit: Afib. S/p PPM HPI: Ry Lerner is a 87 y.o. 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 Per dr. Gandara 07/24/22 Pt states that he has chest [...] falls and he has been in the halfway lately. Device check performed on 06/12/2022 shows thresholds to be good. he is in persistent A. Fib and underwent a single-chamber pacemaker. with [employer] on 10/13/2021 and paced 65% Echocardiogram [...] stress test about 12 years ago in [place], and was in hospital with noted a fib currently on coumadin anticoagulation. Echocardiogram performed on 11/30/2020 at [facility] shows an ejection fraction of 55% [...] No current facility (more content not included)... [facility] 01-01-2023 Note [id number] 01-01-2023 Note [id number] 12-31-2022 Note [facility] SURGERY Clinical Discharge Summary PERSON INFORMATION Name RY LERNER Age 87 Years 1935 Sex MALE Language Icelandic PCP Ezequiel CHAMBERS, John Rodríguez Marital Status Med Service Ambulatory Surgery Acct# Arrival 12/31/2022 08:09:06 Visit Reason SURGERY - RIGHT CARPAL TUNNEL RELEASE [facility] LOS 039 21:33 Address: [address] [place] [address] Comment: PROVIDER INFORMATION VITALS INFORMATION Vital Sign [...] release capsule) 1 cap(s) Oral every day. Niangua's wort (Niangua's wort oral tablet) 1 tab(s) Oral 2 [...] 1 cap(s) Oral every day. Lindsey's wort (Niangua's wort oral tablet) 1 tab(s) Oral 2 [...] release capsule) 1 cap(s) Oral every day. Niangua's wort (Niangua's wort oral tablet) 1 tab(s) Oral 2 [...] (CUSTOM) Follow up: With: Address: When: MARJ CHRIS [address] [place] [address], [address] [place] [id number] [facility] (1) 01/09/2023 11:00 AM DIAGNOSIS Carpal tunnel syndrome, right Comment: PHYS DOC NOTES [facility] 12-31-2022 Note Procedure: Decompres mary of median nerve right wrist with release of carpal canal Pre Op Diagnosis: Carpal tunnel syndrome right Post Op Diagnosis: Carpal tunnel syndrome right Surgeon: Dr. Lisbet Martinez, DO Anesthesia: Local Indication for Surgery: The [...] None [Electronically Signed on: 12/31/2022 09:43 EDT] Ward Martinez DO [Verified on: 12/31/2022 09:43 EDT] Ward Martinez DO [facility] 12-25-2022 Note [id number]:[id number] [facility] 12-12-2022 Note [id number] procedure: Decompres mary of median [...] None [Electronically Signed on: 12/10/2022 15:46 EDT] Ward Martinez DO [Verified on: 12/10/2022 15:46 EDT] Ward Martinez DO [facility] 12-10-2022 Note [facility] SURGERY Clinical Discharge Summary PERSON INFORMATION Name RY LERNER Age 87 Years 1935 Sex MALE Language Icelandic PCP Ezequiel CHAMBERS, John Rodríguez Marital Status Med Service Ambulatory Surgery Acct# Arrival 12/10/2022 13:13:28 Visit Reason SURGERY - LEFT CARPAL TUNNEL RELEASE [facility] LOS 019 02:57 Address: [address] [place] [address] Comment: PROVIDER INFORMATION VITALS INFORMATION Vital Sign [...] Follow up: With: Address: When: Ward Martinez [address] [facility], [address] [place] [id number] Business (1) 12/18/2022 1:30 PM Type Location Start [facility] ([facility] Main OR 12/31/2022 7:30 AM 12/31/2022 8:00 AM Confirmed DIAGNOSIS Carpal tunnel syndrome of left wrist Comment: PHYS DOC NOTES [facility] 11-06-2022 Note Cardiology Clinic No te Subjective Ry Lerner is a 87 y.o. 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 He was last seen by Dr. Gandara on 07/24/2022. He has been doing okay, [...] stress test about 12 years ago in [place], and was in hospital with noted a fib currently on coumadin anticoagulation. Echocardiogram performed on 11/30/2020 at [facility] shows an ejection fraction of 55% [...] falls and he has been in the halfway lately. Device check performed on 06/12/2022 shows thresholds to be good. he is in persistent A. Fib and underwent a single-chamber pacemaker. with [employer] on 10/13/2021 and paced 65% Echocardiogram [...] LV systolic funct (more content not included)... [facility] 11-06-2022 Note Patient here for 4 m [...] All other systems reviewed and are negative. [facility] 07-24-2022 Note [place] [facility] Consul t Note Reason for visit: [...] falls and he has been in the halfway lately. Device check performed on 06/12/2022 shows thresholds to be good. he is in persistent A. Fib and underwent a single-chamber pacemaker. with [employer] on 10/13/2021 and paced 65% Echocardiogram [...] stress test about 12 years ago in [place], and was in hospital with noted a fib currently on coumadin anticoagulation. Echocardiogram performed on 11/30/2020 at [facility] shows an ejection fraction of 55% [...] Murmur: not hea (more content not included)... [facility] 12-27-2022 Note Review of Systems Cardiovascular: Positive for [...] the day. Also has questions about medications [facility] 06-02-2022 Evaluation note Encounter Date Diagnosis Assessment [...] treatment plan. Patient left in stable condition [employer] Other [id number] History general Narrative - Reported* Type Description Date Medical History HYPERTENSION Medical History STROKE Medical History HEAD INJURY Surgical History PACEMAKER 10/13/2021 Surgical History HERNIA X 2 Surgical History TONSILECTOMY Hospitalization History SEE ABOVE [employer] Other Evaluation + Plan note No data available for this section [facility] Future Appointments Appointment Date:08/27/2023 09:30:00 AM Scheduled Provider: Location:[facility] Appointment Type:FM Medicare Wellness [facility] Other atopic dermatitis- Primary Seborrheic keratosis [facility] No data available for this section [facility] No data available for this section [facility] Summary Purpose Family History No Family History [...] and content) DATE CREATED AUTHOR 01/26/2022 [facility] DATE CREATED AUTHOR AUTHOR'S ORGANIZ ATION 04/25/2022 [facility] DATE CREATED AUTHOR AUTHOR'S ORGANIZ ATION 01/06/2023 [facility] DATE CREATED AUTHOR AUTHOR'S ORGANIZ ATION 01/06/2023 [facility] DATE CREATED AUTHOR AUTHOR'S ORGANIZ ATION 07/04/2023 [facility] DATE CREATED AUTHOR AUTHOR'S ORGANIZ ATION 08/29/2023 [facility] REASON FOR VISIT (unrecogniz ed section and content) Reason Comments Rash Specialty Diagnoses / Procedures Referred By Contac t Referred To Contact Dermatology Diagnoses eczema / skin changes texture changes Leidy Rey MD [address] [place] [id number] Rebecca Conley MD [address] [address] Referral ID Status Reason Start Date Expiration Date Visits Re quested Visits Authorized [id number] Closed 07/05/2023 01/01/2024 1 1 Patient Care team informatio n (unrecognized section and content) Staff Genetic Counselor Relationship Specialty Start Date End Date Jason Silva MD [address] [place] [phone] PCP - General Family Medicine 12/10/22 Staff Genetic Counselor Relationship Specialty Start Date End Date Jason Silva MD [address] [place] [phone] PCP - General Family Medicine 12/10/22 FOR RECORDS PERTAINING TO PATIENTS WHO ARE [...] BE BASED ON THE PRIMARY CLINICAL RECORDS. [facility] [employer] provides no warranty or guarantee of the accuracy or completeness of information in this document.
== END 2023-08-30 07:43 | disposition home or self-care (01) ==
PROVIDERS: PCP Nurse Practitioner; Visit Provider Nurse Practitioner
DX: R93.7 Abnormal findings on diagnostic imaging of other parts of musculoskeletal system (principal)
CPT/HCPCS: 71250

== ENCOUNTER 2023-09-02 08:27 | Outpatient (OUT) | payer MEDICARE, SELFPAY ==
--- OUTSIDE RECORDS SUMMARY | 2023-09-02 08:30 | XMS_ITS | CCD ---
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 CARPAL TUNNEL Start 12/31/22 [...] By Chelita Borjas RN Scrub 10% Povidone-Iodine [place] Prep Area (Im.270) Elbow and forearm, Prep Area Details Right Hand, Wrist Skin Prep Agent Dry Yes Without Pooling Hair Removal Syntegrity Hair Removal Methods No hair removal performed Outcome Met (O.100) Yes Last Modified By: Chelita Borjas RN 12/31/22 11:55:12 Pos (more content not included)... Normal [facility] MAGR Preoperative Recordon 0 12-31-2022 MAGR Preoperative Record MAGR Pre-Op Record Summary Primary Physician: Wadr Martinez DO Finalized Date/Time: 12/31/22 09:13:14 Pt. Name: RY LERNER /Sex: 1935 MALE Med Rec #: [id number] Physician: Ward Martinez DO Financial #: [id number] Pt. Type: D Room/Bed: / Admit/Disch: 12/31/22 [...] Signed By: Vicky Ponce RN 12/31/22 09:13 [facility] Patient Handouton 12-31-[address] 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 Keep your hand elevated above your elbow for the first 24 hours after surgery 2. Wiggle your fingers frequently while awake 3. 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 Change your [...] or concerns, please call the office at [phone] 7. Follow up as scheduled Normal [facility] Physician Referralon 023 Physician Referral [id number] 1#1.00CD:127 Normal [facility] Living Will/POAon 12-26-2022 Living Will/POA [id number] #1.00CD:127 Normal [facility] CBC AUTO DIFFon 12-25-2022 BASO # 0.0 103/ul Normal 0.0-0.1 [facility] Comment on above: Performed By: #### C BC #### [facility] [address] [place] [address] Dr. Rashmi Nolan Basophils/100 WBC (Bld) 0.6 % Normal 0.2-2.0 [facility] Comment on above: Performed By: #### C BC #### [facility] [address] [place] [address] Dr. Rashmi Nolan EO # 0.2 103/ul Normal 0.0-0.7 [facility] Comment on above: Performed By: #### C BC #### [facility] [address] [place] [address] Dr. Rashmi Nolan Eosinophils/100 WBC (Bld) 6.9 % Normal 0.9-7.0 [facility] Comment on above: Performed By: #### C BC #### [facility] [address] [place] [address] Dr. Rashmi Nolan Erythrocyte distribution width (RBC) [Ratio] 14.0 % Normal 11.0-15.0 [facility] Comment on above: Performed By: #### C BC #### [facility] [address] [place] [address] Dr. Rashmi Nolan Hematocrit (Bld) [Volume fraction] 29.8 % Critically low 42.0-54.0 [facility] Comment on above: Performed By: #### C BC #### [facility] [address] [place] [address] Dr. Rashmi Nolan Hemoglobin (Bld) [Mass/Vol] 9.8 g/dL Critically low 14.0-18.0 [facility] Comment on above: Performed By: #### C BC #### [facility] [address] [place] [address] Dr. Rashmi Nolan IG # 0.02 10e3/ul Normal 0.00-0.03 [facility] Comment on above: Performed By: #### C BC #### [facility] [address] [place] [address] Dr. Rashmi Nolan IG % 0.6 % Critically high 0.0-0.5 [facility] Comment on above: Performed By: #### C BC #### [facility] [address] [place] [address] Dr. Rashmi Nolan LYMPH # 0.8 103/ul Critically low 1.2-3.8 [facility] Comment on above: Performed By: #### C BC #### [facility] [address] [place] [address] Dr. Rashmi Nolan Lymphocytes/100 WBC (Bld) 25.1 % Normal 20.5-60.0 [facility] Comment on above: Performed By: #### C BC #### [facility] [address] [place] [address] Dr. Rashmi Nolan MANUAL DIFF REQ NO Normal [facility] Comment on above: Performed By: #### C BC #### [facility] [address] [place] [address] Dr. Rashmi Nolan MCH (RBC) [Entitic mass] 33.0 pg Normal 25.9-34.0 [facility] Comment on above: Performed By: #### C BC #### [facility] [address] [place] [address] Dr. Rashmi Nolan MCHC (RBC) [Mass/Vol] 32.9 g/dL Normal 29.9-35.2 [facility] Comment on above: Performed By: #### C BC #### [facility] [address] [address] [address] Rashmi Nolan MCV (RBC) [Entitic vol] 100.3 fL Critically high 80.0-94.0 [facility] Comment on above: Performed By: #### C BC #### [facility] [address] [address] [address] Rashmi Nolan MONO # 0.3 103/ul Normal 0.3-0.8 [facility] Comment on above: Performed By: #### C BC #### [facility] [address] [address] [address] Rashmi Nolan Monocytes/100 WBC (Bld) 9.6 % Normal 1.7-12.0 [facility] Comment on above: Performed By: #### C BC #### [facility] [address] [place] [address] Dr. Rashmi Nolan NEUT # 1.9 103/ul Normal 1.4-6.5 [facility] Comment on above: Performed By: #### C BC #### [facility] [address] [place] [address] Dr. Rashmi Nolan Neutrophils/100 WBC (Bld) 57.2 % Normal 43.0-75.0 [facility] Comment on above: Performed By: #### C BC #### [facility] [address] [address] [address] Rashmi Nolan Platelet mean volume (Bld) [Entitic vol] 10.5 fL Normal 9.5-13.5 [facility] Comment on above: Performed By: #### C BC #### [facility] [address] [address] [address] Rashmi Nolan PLT 129 103/ul Critically low 150-450 [facility] Comment on above: Performed By: #### C BC #### [facility] [address] [place] [address] Dr. Rashmi Nolan RBC 2.97 106/ul Critically low 4.70-6.10 [facility] Comment on above: Performed By: #### C BC #### [facility] [address] [address] [address] Rashmi Nolan WBC 3.3 103/ul Critically low 4.0-11.0 [facility] Comment on above: Performed By: #### C BC #### [facility] [address] [address] [address] Rashmi Nolan PROTIMEon 12-25-2022 INR Coag (PPP) [Relative time] 1.03 {INR} Normal [facility] Comment on above: Performed By: #### B MP #### [facility] [address] [address] [address] Rashmi Nolan INR GUIDELINES SEE BELOW Normal [facility] Comment on above: Result Comment: ENOC RED INR: 2.0 - 3.0 CONDITIONS NOT LISTED BELOW 2.5 - 3.5 FOR PROSTHETIC HEART VALVE REPLACEMENT 2.5 - 3.5 RECURRENT THROMBOSIS Performed By: #### B MP #### [facility] [address] [address] [address] Rashmi Nolan PT Coag (PPP) [Time] 10.9 s Normal 9.0-11.6 [facility] Comment on above: Performed By: #### B MP #### [facility] [address] [address] [address] Rashmi Nolan PTTon 12-25-2022 aPTT Coag (Bld) [Time] 25.6 s Normal 22.3-36.2 [facility] Comment on above: Performed By: #### C BC #### [facility] [address] [place] [address] Dr. Rashmi Nolan Ambulatory Visit Summaryon 0 12-21-2022 Ambulatory Visit Summary RY LERNER :1935 Visit Date:12/21/2022 Ambulatory Visit Instructions Your Diagnosis BMI 30.0-30.9,adult Former cigar smoker Your Care Team Attending Physician - Sheng Simms Primary Care Physician - Sheng Simms This Is Your Medications List amlodipine [...] numbers. This can be done either in [place] ([place] or metric measurements. Note that charts and online BMI calculators are available to help you find your BMI quickly and easily without having to do these calculations yourself. To calculate your BMI in [place] ([place] measurements: 1. Measure your weight in [...] HPI Staff Presents for hospital follow up [facility] 12/11-12/14 bleeding ulcer/bloody stools Had Upper and lower scope done. found diverticulosis and bleeding ulcer. Questions/concerns: eczema, why needs to stay on Lasix, why taken off warfarin when to start back up. History of Present Illness pt presents today fro follow up for admission to [facility] for GI bleed Review of Systems PHQ [...] today for follow up from admission to [facility] for GI bleed. he received 2 units of blood. and had egd and colonsocopy that show a gastic ulcer and diverticulosis. he was cleared by GI yesterday. he remains off of his warfrin for now. Dr. Silva spoke to Dr. Black (Ry's exposure machine operator) and he was ok with keeping him [...] above: Result Comment: Elec tronically Signed By: Sheng Simms\.br\Date and Time Signed: 12/21/22 15:03 EDT [...] numbers. This can be done either in [place] ([place] or metric measurements. Note that charts and online BMI calculators are available to help you find your BMI quickly and easily without having to do these calculations yourself. To calculate your BMI in [place] ([place] measurements: 1. Measure your weight in [...] for Disease Control and Prevention: www.cdc.gov ? [place] [employer]: www.heart.org ? National Heart, Lung, and [employer] [place]: www.nhlbi.nih.gov Summary ? Body mass index (BMI) is a number that is calculated from a person's weight and height. ? BMI may help estimate how much of a person's weight is composed of fat. BMI can help identify those who may be at higher risk for certain medical problems. ? BMI can be measured using Egyptian measurements or metric measurements. ? BMI charts are used to identify whether you are underweight, normal weight, overweight, or obese. This information is not intended to replace advice given to you by your health care provider. Make sure you discuss any questions you have with your health care provider. Document Revised: 04/06/2020 Document Reviewed: 02/12/2020 [email or web address] Patient Education ? 2022 [employer]. [facility] Coding Summaryon 12-19-2022 Coding Summary HTMLBase 64 ZsyrhhabOBl1cXr+PGhl YWQ+SM7APKVbR76iqMWv nV9gS7IYYOvRItlkVZOY IJeJYlUxkuRxXC2fxZIq ZXJu IC8+QN2pYXOfCwztiRYj n8Y3lDH5X52sxk9pGEum dJI1CHZyTcNzabeed1hh nLv4TIdnDumeNmMu NWZevD44SGX7mC83Gh39 uQTudGCsq6emtMy3UuZa PIXsQQX9sMpkQRsgv0Le PYKiV38noPXul6W1 IGNvbGxhcHNlOyBlbXB0 nF8iWZelcbhyw1nwqmoq Yny0te30uWNud5O5zGF8 N0VdyvI1WJVsdBWx IxunpJWLeP6fywppz7gu sswpZtVxQVAyOOo9TRj3 YXQxrVfkDmFzXE44FVT4 XRJkxqKhO1IuSVMz sYziJeN6p7A3Ps4OZ5RR HbdyB8MHTLHPBSwkoCH+ DG13zz12G2HbIxmwLdt7 TAMnWFF4aWW6fT3a FHVmHLckj4M3kXG4N2Qj vaJuri1qf7aaQBSoKWgh S16lwPQlp5N2YHUsaZF4 LQYosKckZfQqmX09 Oyc+WJKetSlyh2LhQxta t4gin8drfGx8PaadCFGi loJteYudMLE4l6GiHe7p MBKwcNX8gNS2uO8u ZgGjNjO6YDguY820AhEr oTIzXdavJ28rW0LezSU+ HLBfRej5VHDdeRgpQJ0c Z0JqVEHehwwfwSUs nMxfTU5zRWCfwwleOUUl pF5qAHFwQ2z4IfKkMfD1 FWxkF2CsLQXoqzspOr83 bZ4tNkAgVcJ3YYuw G8OvcrC2VMUkeXMoMPhy ABX2Z95hk3Q2MENvCFZj PZM9uLP2xY3koWwkwscl bGVmdDsgdmVydGlj DBkgYSffM634UMOajAle PkNvZGluZyBEYXRlOiAg MDUvMjQvMjAyMzwvdGQ+ XWXxEDX9yYbaVPVf oPDgDJvgWs1zpUoylMbi KF3ySBYpzugwKUSboG2g WKKayQJiiDhmGH5fNLJu eactu676JnKlNWY2 OMFukPXxN6XtmB6rFfOp IYWfRCYzG3HtzCVkLWvl K596WGzaMwJ1ZTEcqwHn H3OkYCNhxRhgOlV9 h2N0Mr9Vr0VetzmlT0Ci zTCnMwUsBiuoALh1L8Ch PjwvdHI+IK09PYEyVQ59 FJq8ZNV4dSmnIHxk QTHkV1HleU3aSlNzTYUx ZGRkOyc+PHRhYmxlIHdp ZHRoPScxMDAlJyBzdHls QM6hNe4cIHXqGSFk qSfvbBKnSxNan7fpJGIs BRehKS4wnCvqB2BdsWF9 JJIqq4l3Lp63G88iZ6St dXA+MOWzxUE9eIF3 wN8bIjJiZfF7USrwZ553 MrNucBXgLeyhy6pbt1mm lTn9XmG7PJWejfPvpJti CUT7p6KkLa18J76e IHdpZHRoPSIxNSUiIHZh cYlnhv5xsO4rGh8+PGNv mWH9xMA4kR0wFoPqTzS9 BLsoJ822HwUmzYKg Bfnds2ete1sulOd5MbZc ERXwnsBauIfmIPQ6z0Ro Jn59K0DtnVkmq5WdGgy8 el63fHCyu0M7dRZ6 U2NbHLRdumqpbNWyfSjn IW0wEXSqmospDEGjxO2x VNBcB7i5IrWkIvI7BMuj A4EbknG7JRBuiGWb BQSbzKKNtR1msxkry0pj nfthCcQvGUImUKx3ORm9 JYQfgIepSbAxMKU9YuZ9 ANT8kWOoaU2ybBfj pnrygA8mNdd+ALH4fKUh mWHPPK6kPdipmVD+PHRk QJL6uCnfQBmtIKQrwO4m TNUjG8x6IrSiGsO4 CSeeB8RxunV0YRRhwTJr LKKdwQKRkY1hlqaaf9mv fyxhPeLsOQYnZXa0GPc0 LWFsaWduOiBsZWZ0 AvK2PEU2bSEstF7qfEda epsoaK5vXnq+QmlydGgg QWE4BYj6O3QsLgo2GMBq nHnoMH3rhIGuOMvt Wm9vnCudzDplLU6wGNEn rdkjb152QpWrt2riTVPn mLUaTIvlQLZ4A03ce9X2 TKWoKEEcTYT9yUQ8 oB5unAdnslboiDKykKzg rhWuiSbpZIyqTQubB861 PZZaxJyrIgSpMAv6M5Kh Mof9WTHpvQdrWB3a eBBpKTltHh6ljZadpIpc LD8aZVFdfovio979MzUs x9tmYIDosMArJVgaHHK0 W68tv5X8EMAcRCWj VJL7dYV8lC3alFfaedxm bGVmdDsgdmVydGljYWwt FPlgF435FWBhhFtoIoEi xHr5Y0FcBuy5MNRs qQmxMQ6ljFBpZTmbJi9e tHvoaXfaJI2yIPXpzxwy u987WeSzd4hiAREwuXXf MDdeDUX8X48kg0H4 VDJuGBMwDOL7hMQ5wG8s bGlnbjogbGVmdDsgdmVy sIwnGFtvAIvgL790EDAj cDsnPlBhdGllbnQg LPubZSt6X4JmXggarXK+ TN74VUOsGW72pSAppAXm p5qjsTm0KuLsDXOcVEW5 tRqhVBqyx8HgQNSo U64qxNQoy8Y0DXZfeXsw wAZhIpOlnYC3lZ6lYUif iakgu3hbutlpBzgxs1sn mw14xB55C50pUXka ZHRoPSIzMCUiIHZhbGln ry5edM1kHa8+PGNvbCB3 iLN5sF8iTEEwKrR2DMil B080BbAsaPLmBezc c1fcb0gkpId4NyZ8IGTb hzTydGlxFZV4x8LiKr63 K98hRXphSENuVGGiAKXc UKEfsGbyyi5amB5h Ii8+BMZvcQG1bMH7rH4s ZcJhNyL2QDhrW546LvZe rRDsJvhzL82tY4BtsLV+ HYXlZkc2TSXumDyt QB3gxXGsOCtcJo7cTDA9 UaHmIeJlVCiwK2RjOXUt dfogcpqqkWC7KFMlQJEn xU64Qm4rhColBPZj vSHBuD5nisbdv1hutled LeWjJKVoKJb7ALp5GHJw xBaeMlKyMDB9AzO5PBM5 sBKakJ1jcSvmpqjm rU1fQ9DzWAChmmvgRm03 dV0hXmEhBlJ1JMjhHks+ VZtVGXKLSVXQPTGNHL4I OSwNP28GZZ00ZX68 aVQwc7X3qPU9M6PhBYYt tljcxsithFK4YCBaIQKg lI16mCKuGOenXa3tu6N6 f963BHCcDZDryI34 Dw3dcGmcHMCelDMNlB5q ziknf4sgbfuzWaHoPAFs HJd8ZVb3PFAcsQwsCwEc KFU9IuG0SCB9dMVj kF2ysKfvyntmzI1oZcu+ MDMvMDQvMTkzNTwvdGQ+ LBXlQVG8nJhxYEgqISYs sQ2jQRNxK6h8MpYi GrG1KFocL8JyZSAmprwa Hv69hN1zQjVnYtQ9EBxz X1BawsK6KIWlyJCiGWtk NKZ5E96vh8E0NKBq EZDzHPM1eFX9eZ2toRmf bjogbGVmdDsgdmVydGlj ITkdQZoeM319TMEphCkb Wci6NYqpNMZxBQ94 OH68sESly6H0oXH7B1Wo EGIggmqzbdwmhJW7BRDs FVJvvT46pJNnAEyzUk2w w6Q0t038HYEhDHYr wA92Vs2zlKvuPUOjvERU yJ7egjtnw5hryihnMhRy ZUKpWWe0QFd3AVUxeHft WwWrYGS6MaN1TDO5 bZTgrK4dqSofrxwbsA5i Oyc+TUFMRTwvdGQ+PHRk KHS9oFjkUNrpDXZgkM0r OZVoO0c7HxPfIcX4 XGhbZ4QxDQFhwmbqIq89 nA1wIzAeFqD5UDofT3Gi flM8PBSjlERjLQcpJUS9 C29vu9Z1KUNzMEGo OMK8iQM8yH0ioDkrcqkj bGVmdDsgdmVydGljYWwt XHprG459SNHoiYtrRzJn gYWPaIOpTXL5TT32 EL67I1NsVpdvhHAwjNL+ PHRhYmxlIHdpZHRoPScx EVFsSxTctDywAI9jVe6a ZGVyLWNvbGxhcHNl CzXqt0nrKPTaYZjpGF4h xKsgM5QmeLK3QEGbv3o1 Sf89O72uA4RtgRK+PGNv oVQ8tQJ0lO7uNtYo MeO6NGntK283QmIkqJUi Vzowg4oah9xpcAb9FaFa KMDlcqMyoJsjQJU7t2Ql Vv48G79fFCkzAOLv VICiJBCmODJjxOirfm6w xP9tQk7+ITHngMM0uQO4 uF4zLnFeSxT4LPizN852 SsPsyXTyVyibK95f H3TcbRE+FEVxMmg0EPHx hTgtOL0wnVTaGJipBm1o XYI7DoSlVjLyNTmnG9Xw ZGRpbmctcmlnaHQ6 ATLpHRHbfY09Rr3poAfk Sc4dOKAhHOO1QVIrpRWt A3TdvT7kYkZqWNXzVQDe L3CkcSPtBHagA001 OMvrLaX9MIRudeMrM0Of XSGwqZidGcA1i7R5Za1Y eSfiuSKaVO2pEtNfWSg2 E5SmOsg1LDWkvTfw IN2wpTBdDZvhBx8hcSra gUwvAF9cHJRpqktsg008 BsTzh4aaDZTpoRLrFYuf XGQ4Z60ds1A4CYKl DRXfMDO9iML4xZ2fmTuu bjogbGVmdDsgdmVydGlj QRbdYNfqS653HTHizZas UcAVFvs9Q8LtLur2 BLQrpAqtIA5beCKmRWhs Qm6ryJvacNqtJM5xHLJv quqwb525GaPrm6hcRKLw aFHrXOzhVAV8Q52r q5P8SIFaWHVyBYO8bPF1 wO4dgHalyfqwsPXmaSqm kiMoyFnpCUjqCEanS782 LLEsjJjaYy6SWyh8 X8KcBxv6MYWjvYdpIU4u kKAtOInxCx4jhFvygXsw YJ6rAMXqwvyxv560BsFs l0tfYALumRUiXFbh YSR2D35wp2B7OWPbKMUw PST0uNM4vN0tvNlgaeth bGVmdDsgdmVydGljYWwt XOhuD957PQJqpAjs PlBheWVyOjwvdGQ+PC90 qf60I6LrYklhFvf3MFFd IIS1eRX6hP5cBJIdYDjk k0K8yDZ9D2IzxhNi ci1 (more content not included)... [facility] 12-18-19 23 [facility] Case Information Case Priority: None Programs: -- Referral Source: Shift Boss Referral Reason: Care coordination Case Type: Transition Care Management Risk Score: -- Case Status: Enrolled (December 17, 2022) Date Assigned: December 17, 2022 Assigned By: Sandra Nieves RN Date Enrolled: December 17, 2022 Assigned Primary Personnel: Sandra Nieves RN Assigned Secondary Personnel: Betty PERSAUD, Darcie Mcgrath Case Physician: Sheng Simms Problems Ongoing Acute cerebrovascular accident (CVA) [...] any questions or concerns. Patient currently at [facility], unable to provide patient with contact number, but did advise patient to call office and ask to speak with day care worker if he had any questions or concerns. Communication Events Date: December 17, 2022 Method: Phone call Type: Outbound Duration (min): 5 Outcome: Case discussion Contact Type: Patient Contact Name: RY LERNER Notes: TCM #1-see summary note. Created By: Ezequiel PERSAUD, Sandra Medrano [facility] CBC AUTO DIFFon 12-14-2022 BASO # 0.0 103/ul Normal 0.0-0.1 [facility] Comment on above: Performed By: #### C BC #### [facility] [address], [place] [address] Dr. Rashmi Nolan Basophils/100 WBC (Bld) 0.6 % Normal 0.2-2.0 [facility] Comment on above: Performed By: #### C BC #### [facility] [address] [place], [place] [address] Dr. Rashmi Nolan EO # 0.4 103/ul Normal 0.0-0.7 [facility] Comment on above: Performed By: #### C BC #### [facility] [address] [place] [address] Dr. Rashmi Nolan Eosinophils/100 WBC (Bld) 11.9 % Critically high 0.9-7.0 [facility] Comment on above: Performed By: #### C BC #### [facility] [address] [place] [address] Dr. Rashmi Nolan Erythrocyte distribution width (RBC) [Ratio] 15.2 % Critically high 11.0-15.0 [facility] Comment on above: Performed By: #### C BC #### [facility] [address] [place] [address] Dr. Rashmi Nolan Hematocrit (Bld) [Volume fraction] 26.3 % Critically low 42.0-54.0 [facility] Comment on above: Performed By: #### C BC #### [facility] [address] [place] [address] Dr. Rashmi Nolan Hemoglobin (Bld) [Mass/Vol] 8.9 g/dL Critically low 14.0-18.0 [facility] Comment on above: Performed By: #### C BC #### [facility] [address] [place] [address] Dr. Rashmi Nolan IG # 0.01 10e3/ul Normal 0.00-0.03 [facility] Comment on above: Performed By: #### C BC #### [facility] [address] [place] [address] Dr. Rashmi Nolan IG % 0.3 % Normal 0.0-0.5 [facility] Comment on above: Performed By: #### C BC #### [facility] [address] [place] [address] Dr. Rashmi Nolan LYMPH # 0.8 103/ul Critically low 1.2-3.8 [facility] Comment on above: Performed By: #### C BC #### [facility] [address] [place] [address] Dr. Rashmi Nolan Lymphocytes/100 WBC (Bld) 25.1 % Normal 20.5-60.0 [facility] Comment on above: Performed By: #### C BC #### [facility] [address] [address] [address] Rashmi Nolan MANUAL DIFF REQ NO Normal [facility] Comment on above: Performed By: #### C BC #### [facility] [address] [place] [address] Dr. Rashmi Nolan MCH (RBC) [Entitic mass] 33.0 pg Normal 25.9-34.0 [facility] Comment on above: Performed By: #### C BC #### [facility] [address] [place] [address] Dr. Rashmi Nolan MCHC (RBC) [Mass/Vol] 33.8 g/dL Normal 29.9-35.2 [facility] Comment on above: Performed By: #### C BC #### [facility] [address] [place] [address] Dr. Rashmi Nolan MCV (RBC) [Entitic vol] 97.4 fL Critically high 80.0-94.0 [facility] Comment on above: Performed By: #### C BC #### [facility] [address] [place] [address] Dr. Rashmi Nolan MONO # 0.3 103/ul Normal 0.3-0.8 [facility] Comment on above: Performed By: #### C BC #### [facility] [address] [place] [address] Dr. aRshmi Nolan Monocytes/100 WBC (Bld) 9.0 % Normal 1.7-12.0 [facility] Comment on above: Performed By: #### C BC #### [facility] [address] [place] [address] Dr. Rashmi Nolan NEUT # 1.7 103/ul Normal 1.4-6.5 [facility] Comment on above: Performed By: #### C BC #### [facility] [address] [place] [address] Dr. Rashmi Nolan Neutrophils/100 WBC (Bld) 53.1 % Normal 43.0-75.0 [facility] Comment on above: Performed By: #### C BC #### [facility] [address] [address] [address] Rashmi Nolan Platelet mean volume (Bld) [Entitic vol] 10.2 fL Normal 9.5-13.5 [facility] Comment on above: Performed By: #### C BC #### [facility] [address] [address] [address] Rashmi Nolan PLT 139 103/ul Critically low 150-450 [facility] Comment on above: Performed By: #### C BC #### [facility] [address] [address] [address] Rashmi Nolan RBC 2.70 106/ul Critically low 4.70-6.10 [facility] Comment on above: Performed By: #### C BC #### [facility] [address] [address] [address] Rashmi Nolan WBC 3.1 103/ul Critically low 4.0-11.0 [facility] Comment on above: Performed By: #### C BC #### [facility] [address] [address] [address] Rashmi Nolan MAGR Intraoperative Recordon 12-14-2022 MAGR Intraoperative Record MAGR Intra-Op Record Summary Primary Physician: Ward Martinez DO Finalized Date/Time: 12/14/22 09:30:19 Pt. Name: RY LERNER/Sex: 1935 MALE Med Rec #: [id number] Physician: Ward Martinez DO Financial #: [id number] Pt. Type: D Room/Bed: / Admit/Disch: 12/10/22 [...] Andrew DO Role Performed Surgeon - Primary Booth Manager Booth Manager Time In 12/10/22 15:05:00 12/10/22 14:54:00 12/10/22 14:54:00 Time Out 12/10/22 15:30:00 12/10/22 15:30:00 12/10/22 15:30:00 Procedure Carpal Tunnel Carpal Tunnel Carpal Tunnel Release(Left) Release(Left) Release(Left) Last Modified By: Maile Palmer RN, Barbara RN Long, Barbara RN 12/10/22 15:29:30 12/10/22 15:29:30 12/10/22 15:29:30 Entry 4 Entry 5 Case Attendee Macie Licea [employer]ATEGIST Carly Maddox CST Role Performed Putty Mixer Scrub Personnel Time In 12/10/22 14:54:00 12/10/22 [...] By Maile Palmer RN Scrub 10% Povidone-Iodine [place] Prep Area (Im.270) Arm lower Prep Area [...] injury Counts (more content not included)... Normal [facility] Outside Colonoscopyon 2022 Outside Colonoscopy [id number] #1.00CD:127 Normal [facility] Outside [facility] Correspo ndenceon 12-14-2022 Outside Hospital Correspondence [id number] #1.00CD:127 Normal [facility] Outside [facility] Correspondence [id number] #1.00CD:127 Normal [facility] Outside [facility] Correspondence [id number] #1.00CD:127 Normal [facility] Outside [facility] Correspondence [id number] #1.00CD:127 Normal [facility] Outside [facility] Correspondence [id number] #1.00CD:127 Normal [facility] PROF CHEM 8 (BAS METB)on Anion gap [Moles/Vol] 12.6 mmol/L Normal [facility] Comment on above: Performed By: #### B MP #### [facility] [address] [address] [address] Rashmi Nolan Calcium [Mass/Vol] 9.7 mg/dL Normal 8.5-10.1 [facility] Comment on above: Performed By: #### B MP #### [facility] [address] [address] [address] Rashmi Nolan Chloride [Moles/Vol] 108 mmol/L Critically high 98-107 [facility] Comment on above: Performed By: #### B MP #### [facility] [address] [address] [address] Rashmi Nolan CO2 [Moles/Vol] 24.5 mmol/L Normal 21.0-32.0 [facility] [place] Comment on above: Performed By: #### B MP #### [facility] [address] [address] [address] Rashmi Nolan Creatinine [Mass/Vol] 1.68 mg/dL Critically high 0.70-1.30 [facility] Comment on above: Performed By: #### B MP #### [facility] [address] [address] [address] Rashmi Nolan EGFR-AF [facility] 47 mL/min/1.73m2 Critically low >=60 [facility] Comment on above: Performed By: #### B MP #### [facility] [address] [address] [address] Rashmi Nolan EGFR-NON AF [facility] 39 mL/min/1.73m2 Critically low >=60 [facility] Comment on above: Performed By: #### B MP #### [facility] [address] [address] [address] Rashmi Nolan Glucose [Mass/Vol] 91 mg/dL Normal 74-106 [facility] Comment on above: Performed By: #### B MP #### [facility] [address] [address] [address] Rashmi Nolan Potassium [Moles/Vol] 5.1 mmol/L Normal 3.5-5.1 [facility] Comment on above: Performed By: #### B MP #### [facility] [address] [address] [address] Rashmi Nolan Sodium [Moles/Vol] 140 mmol/L Normal 136-145 [facility] Comment on above: Performed By: #### B MP #### [facility] [address] [address] [address] Rashmi Nolan Urea nitrogen [Mass/Vol] 27.0 mg/dL Critically high 7.0-18.0 [facility] Comment on above: Performed By: #### B MP #### [facility] [address] [address] [address] Rashmi Nolan Urea nitrogen/Creatinine [Mass ratio] 16.1 mg/mg Normal [facility] Comment on above: Performed By: #### B MP #### [facility] [address] [place] [address] Dr. Rashmi Nolan Transfer Inon 12-14-2022 Transfer In [id number] #1.00CD:127 Normal [facility] CBC AUTO DIFFon 12-13-2022 BASO # 0.0 103/ul Normal 0.0-0.1 [facility] Comment on above: Performed By: #### C BC #### [facility] [address] [address] [address] Rashmi Nolan Basophils/100 WBC (Bld) 0.6 % Normal 0.2-2.0 [facility] Comment on above: Performed By: #### C BC #### [facility] [address] [place] [address] Dr. Rashmi Nolan EO # 0.4 103/ul Normal 0.0-0.7 [facility] Comment on above: Performed By: #### C BC #### [facility] [address] [place] [address] Dr. Rashmi Nolan Eosinophils/100 WBC (Bld) 10.3 % Critically high 0.9-7.0 [facility] Comment on above: Performed By: #### C BC #### [facility] [address] [place] [address] Dr. Rashmi Nolan Erythrocyte distribution width (RBC) [Ratio] 15.8 % Critically high 11.0-15.0 [facility] Comment on above: Performed By: #### C BC #### [facility] [address] [place] [address] Dr. Rashmi Nolan Hematocrit (Bld) [Volume fraction] 25.7 % Critically low 42.0-54.0 [facility] Comment on above: Performed By: #### C BC #### [facility] [address] [place] [address] Dr. Rashmi Nolan Hemoglobin (Bld) [Mass/Vol] 8.5 g/dL Critically low 14.0-18.0 [facility] Comment on above: Performed By: #### C BC #### [facility] [address] [place] [address] Dr. Rashmi Nolan IG # 0.00 10e3/ul Normal 0.00-0.03 [facility] Comment on above: Performed By: #### C BC #### [facility] [address] [place] [address] Dr. Rashmi Nolan IG % 0.0 % Normal 0.0-0.5 [facility] Comment on above: Performed By: #### C BC #### [facility] [address] [place] [address] Dr. Rashmi Nolan LYMPH # 0.8 103/ul Critically low 1.2-3.8 [facility] Comment on above: Performed By: #### C BC #### [facility] [address] [place] [address] Dr. Rashmi Nolan Lymphocytes/100 WBC (Bld) 23.5 % Normal 20.5-60.0 [facility] Comment on above: Performed By: #### C BC #### [facility] [address] [place] [address] Dr. Rashmi Nolan MANUAL DIFF REQ NO Normal [facility] Comment on above: Performed By: #### C BC #### [facility] [address] [place] [address] Dr. Rashmi Nolan MCH (RBC) [Entitic mass] 32.9 pg Normal 25.9-34.0 [facility] Comment on above: Performed By: #### C BC #### [facility] [address] [place] [address] Dr. Rashmi Nolan MCHC (RBC) [Mass/Vol] 33.1 g/dL Normal 29.9-35.2 [facility] Comment on above: Performed By: #### C BC #### [facility] [address] [place] [address] Dr. Rashmi Nolan MCV (RBC) [Entitic vol] 99.6 fL Critically high 80.0-94.0 [facility] Comment on above: Performed By: #### C BC #### [facility] [address] [place] [address] Dr. Rashmi Nolan MONO # 0.3 103/ul Normal 0.3-0.8 [facility] Comment on above: Performed By: #### C BC #### [facility] [address] [place] [address] Dr. Rashmi Nolan Monocytes/100 WBC (Bld) 8.9 % Normal 1.7-12.0 [facility] Comment on above: Performed By: #### C BC #### [facility] [address] [address] [address] Rashmi Nolan NEUT # 2.0 103/ul Normal 1.4-6.5 [facility] Comment on above: Performed By: #### C BC #### [facility] [address] [place] [address] Dr. Rashmi Nolan Neutrophils/100 WBC (Bld) 56.7 % Normal 43.0-75.0 [facility] Comment on above: Performed By: #### C BC #### [facility] [address] [place] [address] Dr. Rashmi Nolan Platelet mean volume (Bld) [Entitic vol] 10.5 fL Normal 9.5-13.5 [facility] Comment on above: Performed By: #### C BC #### [facility] [address] [place] [address] Dr. Rashmi Nolan PLT 134 103/ul Critically low 150-450 [facility] Comment on above: Performed By: #### C BC #### [facility] [address] [place] [address] Dr. Rashmi Nolan RBC 2.58 106/ul Critically low 4.70-6.10 [facility] Comment on above: Performed By: #### C BC #### [facility] [address] [place] [address] Dr. Rashmi Nolan WBC 3.6 103/ul Critically low 4.0-11.0 [facility] Comment on above: Performed By: #### C BC #### [facility] [address] [place] [address] Dr. Rashmi Nolan PROF CHEM 8 (BAS METB)on Anion gap [Moles/Vol] 11.7 mmol/L Normal [facility] Comment on above: Performed By: #### C BC #### [facility] [address] [address] [address] Rashmi Nolan Calcium [Mass/Vol] 9.5 mg/dL Normal 8.5-10.1 [facility] Comment on above: Performed By: #### C BC #### [facility] [address] [address] [address] Rashmi Nolan Chloride [Moles/Vol] 110 mmol/L Critically high 98-107 [facility] Comment on above: Performed By: #### C BC #### [facility] [address] [place] [address] Dr. Rashmi Nolan CO2 [Moles/Vol] 25.1 mmol/L Normal 21.0-32.0 [facility] [place] Comment on above: Performed By: #### C BC #### [facility] [address] [address] [address] Rashmi Nolan Creatinine [Mass/Vol] 1.69 mg/dL Critically high 0.70-1.30 [facility] Comment on above: Performed By: #### C BC #### [facility] [address] [place] [address] Dr. Rashmi Nolan EGFR-AF [facility] 47 mL/min/1.73m2 Critically low >=60 [facility] Comment on above: Performed By: #### C BC #### [facility] [address] [address] [address] Rashmi Nolan EGFR-NON AF [facility] 38 mL/min/1.73m2 Critically low >=60 [facility] Comment on above: Performed By: #### C BC #### [facility] [address] [address] [address] Rashmi Nolan Glucose [Mass/Vol] 93 mg/dL Normal 74-106 [facility] Comment on above: Performed By: #### C BC #### [facility] [address] [address] [address] Rashmi Nolan Potassium [Moles/Vol] 5.8 mmol/L Critically high 3.5-5.1 [facility] Comment on above: Performed By: #### C BC #### [facility] [address] [place] [address] Dr. Rashmi Nolan Sodium [Moles/Vol] 141 mmol/L Normal 136-145 [facility] Comment on above: Performed By: #### C BC #### [facility] [address] [place] [address] Dr. Rashmi Nolan Urea nitrogen [Mass/Vol] 35.0 mg/dL Critically high 7.0-18.0 [facility] Comment on above: Performed By: #### C BC #### [facility] [address] [place] [address] Dr. Rashmi Nolan Urea nitrogen/Creatinine [Mass ratio] 20.7 mg/mg Normal [facility] Comment on above: Performed By: #### C BC #### [facility] [address] [place] [address] Dr. Rashmi Nolan ABO RH RETYPEon 12-12-2022 ABO and Rh group Nom (Bld) DONE Normal [facility] Comment on above: Performed By: #### C BC #### [facility] [address] [place] [address] Dr. Rashmi Nolan Auth for Release of Medical Recordson 12-12-2022 Auth for Release of Medical Records [id number] #1.00CD:127 Normal [facility] CBC AUTO DIFFon 12-12-2022 BASO # 0.0 103/ul Normal 0.0-0.1 [facility] Comment on above: Performed By: #### C BC #### [facility] [address] [place] [address] Dr. Rashmi Nolan Basophils/100 WBC (Bld) 0.6 % Normal 0.2-2.0 [facility] Comment on above: Performed By: #### C BC #### [facility] [address] [place] [address] Dr. Rashmi Nolan EO # 0.3 103/ul Normal 0.0-0.7 [facility] Comment on above: Performed By: #### C BC #### [facility] [address] [place] [address] Dr. Rashmi Nolan Eosinophils/100 WBC (Bld) 7.6 % Critically high 0.9-7.0 [facility] Comment on above: Performed By: #### C BC #### [facility] [address] [place] [address] Dr. Rashmi Nolan Erythrocyte distribution width (RBC) [Ratio] 16.4 % Critically high 11.0-15.0 [facility] Comment on above: Performed By: #### C BC #### [facility] [address] [place] [address] Dr. Rashmi Nolan Hematocrit (Bld) [Volume fraction] 27.2 % Critically low 42.0-54.0 [facility] Comment on above: Performed By: #### C BC #### [facility] [address] [place] [address] Dr. Rashmi Nolan Hemoglobin (Bld) [Mass/Vol] 9.1 g/dL Critically low 14.0-18.0 [facility] Comment on above: Performed By: #### C BC #### [facility] [address] [place] [address] Dr. Rashmi Nolan IG # 0.01 10e3/ul Normal 0.00-0.03 [facility] Comment on above: Performed By: #### C BC #### [facility] [address] [place] [address] Dr. Rashmi Nolan IG % 0.3 % Normal 0.0-0.5 [facility] Comment on above: Performed By: #### C BC #### [facility] [address] [place] [address] Dr. Rashmi Nolan LYMPH # 0.9 103/ul Critically low 1.2-3.8 [facility] Comment on above: Performed By: #### C BC #### [facility] [address] [place] [address] Dr. Rashmi Nolan Lymphocytes/100 WBC (Bld) 25.3 % Normal 20.5-60.0 [facility] Comment on above: Performed By: #### C BC #### [facility] [address] [place] [address] Dr. Rashmi Nolan MANUAL DIFF REQ NO Normal [facility] Comment on above: Performed By: #### C BC #### [facility] [address] [place] [address] Dr. Rashmi Nolan MCH (RBC) [Entitic mass] 33.0 pg Normal 25.9-34.0 [facility] Comment on above: Performed By: #### C BC #### [facility] [address] [place] [address] Dr. Rashmi Nolan MCHC (RBC) [Mass/Vol] 33.5 g/dL Normal 29.9-35.2 [facility] Comment on above: Performed By: #### C BC #### [facility] [address] [place] [address] Dr. Rashmi Nolan MCV (RBC) [Entitic vol] 98.6 fL Critically high 80.0-94.0 [facility] Comment on above: Performed By: #### C BC #### [facility] [address] [place] [address] Dr. Rashmi Nolan MONO # 0.3 103/ul Normal 0.3-0.8 [facility] Comment on above: Performed By: #### C BC #### [facility] [address] [place] [address] Dr. Rashmi Nolan Monocytes/100 WBC (Bld) 8.1 % Normal 1.7-12.0 [facility] Comment on above: Performed By: #### C BC #### [facility] [address] [place] [address] Dr. Rashmi Nolan NEUT # 2.0 103/ul Normal 1.4-6.5 [facility] Comment on above: Performed By: #### C BC #### [facility] [address] [place] [address] Dr. Rashmi Nolan Neutrophils/100 WBC (Bld) 58.1 % Normal 43.0-75.0 [facility] Comment on above: Performed By: #### C BC #### [facility] [address] [place] [address] Dr. Rashmi Nolan Platelet mean volume (Bld) [Entitic vol] 10.0 fL Normal 9.5-13.5 [facility] Comment on above: Performed By: #### C BC #### [facility] [address] [address] [address] Rashmi Nolan PLT 147 103/ul Critically low 150-450 [facility] Comment on above: Performed By: #### C BC #### [facility] [address] [address] [address] Rashmi Nolan RBC 2.76 106/ul Critically low 4.70-6.10 [facility] Comment on above: Performed By: #### C BC #### [facility] [address] [place] [address] Dr. Rashmi Nolan WBC 3.4 103/ul Critically low 4.0-11.0 [facility] Comment on above: Performed By: #### C BC #### [facility] [address] [place] [address] Dr. Rashmi Nolan BASO # 0.0 103/ul Normal 0.0-0.1 [facility] Comment on above: Performed By: #### C BC #### [facility] [address] [place] [address] Dr. Rashmi Nolan Basophils/100 WBC (Bld) 0.6 % Normal 0.2-2.0 [facility] Comment on above: Performed By: #### C BC #### [facility] [address] [place] [address] Dr. Rashmi Nolan EO # 0.2 103/ul Normal 0.0-0.7 [facility] Comment on above: Performed By: #### C BC #### [facility] [address] [place] [address] Dr. Rashmi Nolan Eosinophils/100 WBC (Bld) 6.6 % Normal 0.9-7.0 [facility] Comment on above: Performed By: #### C BC #### [facility] [address] [place] [address] Dr. Rashmi Nolan Erythrocyte distribution width (RBC) [Ratio] 16.4 % Critically high 11.0-15.0 [facility] Comment on above: Performed By: #### C BC #### [facility] [address] [place] [address] Dr. Rashmi Nolan Hematocrit (Bld) [Volume fraction] 26.1 % Critically low 42.0-54.0 [facility] Comment on above: Performed By: #### C BC #### [facility] [address] [place] [address] Dr. Rashmi Nolan Hemoglobin (Bld) [Mass/Vol] 8.5 g/dL Critically low 14.0-18.0 [facility] Comment on above: Result Comment: rcvd . blood Performed By: #### C BC #### [facility] [address] [place] [address] Dr. Rashmi Nolan IG # 0.01 10e3/ul Normal 0.00-0.03 [facility] Comment on above: Performed By: #### C BC #### [facility] [address] [place] [address] Dr. Rashmi Nolan IG % 0.3 % Normal 0.0-0.5 [facility] Comment on above: Performed By: #### C BC #### [facility] [address] [place] [address] Dr. Rashmi Nolan LYMPH # 0.7 103/ul Critically low 1.2-3.8 [facility] Comment on above: Performed By: #### C BC #### [facility] [address] [place] [address] Dr. Rashmi Nolan Lymphocytes/100 WBC (Bld) 20.2 % Critically low 20.5-60.0 [facility] Comment on above: Performed By: #### C BC #### [facility] [address] [place] [address] Dr. Rashmi Nolan MANUAL DIFF REQ NO Normal [facility] Comment on above: Performed By: #### C BC #### [facility] [address] [place] [address] Dr. Rashmi Nolan MCH (RBC) [Entitic mass] 32.7 pg Normal 25.9-34.0 [facility] Comment on above: Performed By: #### C BC #### [facility] [address] [place] [address] Dr. Rashmi Nolan MCHC (RBC) [Mass/Vol] 32.6 g/dL Normal 29.9-35.2 [facility] Comment on above: Performed By: #### C BC #### [facility] [address] [place] [address] Dr. Rashmi Nolan MCV (RBC) [Entitic vol] 100.4 fL Critically high 80.0-94.0 [facility] Comment on above: Performed By: #### C BC #### [facility] [address] [place] [address] Dr. Rashmi Nolan MONO # 0.3 103/ul Normal 0.3-0.8 [facility] Comment on above: Performed By: #### C BC #### [facility] [address] [place] [address] Dr. Rashmi Nolan Monocytes/100 WBC (Bld) 7.7 % Normal 1.7-12.0 [facility] Comment on above: Performed By: #### C BC #### [facility] [address] [place] [address] Dr. Rashmi oNlan NEUT # 2.3 103/ul Normal 1.4-6.5 [facility] Comment on above: Performed By: #### C BC #### [facility] [address] [place] [address] Dr. Rashmi Nolan Neutrophils/100 WBC (Bld) 64.6 % Normal 43.0-75.0 [facility] Comment on above: Performed By: #### C BC #### [facility] [address] [place] [address] Dr. Rashmi Nolan Platelet mean volume (Bld) [Entitic vol] 9.9 fL Normal 9.5-13.5 [facility] Comment on above: Performed By: #### C BC #### [facility] [address] [place] [address] Dr. Rashmi Nolan PLT 130 103/ul Critically low 150-450 [facility] Comment on above: Performed By: #### C BC #### [facility] [address] [place] [address] Dr. Rashmi Nolan RBC 2.60 106/ul Critically low 4.70-6.10 [facility] Comment on above: Performed By: #### C BC #### [facility] [address] [place] [address] Dr. Rashmi Nolan WBC 3.6 103/ul Critically low 4.0-11.0 [facility] Comment on above: Performed By: #### C BC #### [facility] [address] [place] [address] Dr. Rashmi Nolan PRBC LEUKOREDUCEDon 12-13-19 ABO and Rh group Nom (Bld) Cross Match Result Compatible Unit Blood Type O Pos Unit Number [id number] Status Information Issued Product ID Red Blood Cells Product Code [id number] Issue Date/Time [id number] Cross Match Result Compatible Unit Blood Type O Pos Unit Number [id number] Status Information Issued Product ID Red Blood Cells Product Code [id number] Issue Date/Time [id number] [facility] Comment on above: Performed By: #### C BC #### [facility] [address] [place] [address] Dr. Rashmi Nolan PROF CHEM 8 (BAS METB)on Anion gap [Moles/Vol] 14.8 mmol/L Normal [facility] Comment on above: Performed By: #### B MP #### [facility] [address] [place] [address] Dr. Rashmi Nolan Calcium [Mass/Vol] 9.2 mg/dL Normal 8.5-10.1 [facility] Comment on above: Performed By: #### B MP #### [facility] [address] [place] [address] Dr. Rashmi Nolan Chloride [Moles/Vol] 110 mmol/L Critically high 98-107 [facility] Comment on above: Performed By: #### B MP #### [facility] [address] [address] [address] Rashmi Nolan CO2 [Moles/Vol] 23.5 mmol/L Normal 21.0-32.0 [facility] [place] Comment on above: Performed By: #### B MP #### [facility] [address] [address] [address] Rashmi Nolan Creatinine [Mass/Vol] 1.77 mg/dL Critically high 0.70-1.30 [facility] Comment on above: Performed By: #### B MP #### [facility] [address] [address] [address] Rashmi Nolan EGFR-AF [facility] 44 mL/min/1.73m2 Critically low >=60 [facility] Comment on above: Performed By: #### B MP #### [facility] [address] [address] [address] Rashmi Nolan EGFR-NON AF [facility] 36 mL/min/1.73m2 Critically low >=60 [facility] Comment on above: Performed By: #### B MP #### [facility] [address] [address] [address] Rashmi Nolan Glucose [Mass/Vol] 103 mg/dL Normal 74-106 [facility] Comment on above: Performed By: #### B MP #### [facility] [address] [address] [address] Rashmi Nolan Potassium [Moles/Vol] 5.3 mmol/L Critically high 3.5-5.1 [facility] Comment on above: Performed By: #### B MP #### [facility] [address] [address] [address] Rashmi Nolan Sodium [Moles/Vol] 143 mmol/L Normal 136-145 [facility] Comment on above: Performed By: #### B MP #### [facility] [address] [address] [address] Rashmi Nolan Urea nitrogen [Mass/Vol] 54.0 mg/dL Critically high 7.0-18.0 [facility] Comment on above: Performed By: #### B MP #### [facility] [address], [place] [address] Dr. Rashmi Nolan Urea nitrogen/Creatinine [Mass ratio] 30.5 mg/mg Normal [facility] Comment on above: Performed By: #### B MP #### [facility] [address], [place] [address] Dr. Rashmi Nolan Auto Diffon 12-11-2022 Basophils/100 WBC (Bld) 0.5 % Normal 0.0-2.0 [facility] Comment on above: Order Comment: Order Added by Discern Expert. Performed By: #### 2 [id number], [id number], [id number] #### [facility] [address] [place] [address] Basophils/Leukocytes Auto (Bld) [Pure # fraction] 0.0 E9/L Normal 0.0-0.2 [facility] Comment on above: Order Comment: Order Added by Discern Expert. Performed By: #### 2 [id number], [id number], [id number] #### [facility] [address] [place] [address] Eosinophils/100 WBC (Bld) 3.4 % Normal 0.0-8.0 [facility] Comment on above: Order Comment: Order Added by Discern Expert. Performed By: #### 2 [id number], [id number], [id number] #### [facility] [address] [place] [address] Eosinophils/Leukocyte s Auto (Bld) [Pure # fraction] 0.2 E9/L Normal 0.0-0.5 [facility] Comment on above: Order Comment: Order Added by Discern Expert. Performed By: #### 2 [id number], [id number], [id number] #### [facility] [address] [place] [address] Lymphocytes/100 WBC (Bld) 17.1 % Normal 14.0-50.0 [facility] Comment on above: Order Comment: Order Added by Discern Expert. Performed By: #### 2 [id number], [id number], [id number] #### [facility] [address] [place] [address] Lymphocytes/Leukocyte s Auto (Bld) [Pure # fraction] 0.9 E9/L Low 1.0-4.0 [facility] Comment on above: Order Comment: Order Added by Discern Expert. Performed By: #### 2 581703, [id number], [id number] #### [facility] [address] [place] [address] Monocytes/100 WBC (Bld) 6.1 % Normal 4.0-14.0 [facility] Comment on above: Order Comment: Order Added by Discern Expert. Performed By: #### 2 065661, [id number], [id number] #### [facility] [address] [place] [address] Monocytes/Leukocytes Auto (Bld) [Pure # fraction] 0.3 E9/L Normal 0.2-1.0 [facility] Comment on above: Order Comment: Order Added by Discern Expert. Performed By: #### 2 354215, [id number], [id number] #### [facility] [address] [place] [address] Neutrophils/100 WBC (Bld) 72.9 % Normal 36.0-75.0 [facility] Comment on above: Order Comment: Order Added by Discern Expert. Performed By: #### 2 458317, [id number], [id number] #### [facility] [address] [place] [address] Neutrophils/Leukocyte s Auto (Bld) [Pure # fraction] 3.8 E9/L Normal 2.0-7.5 [facility] Comment on above: Order Comment: Order Added by Discern Expert. Performed By: #### 2 811694, [id number], [id number] #### [facility] [address] [place] [address] CBC AUTO DIFFon 12-11-2022 BASO # 0.0 103/ul Normal 0.0-0.1 [facility] Comment on above: Performed By: #### C BC #### [facility] [address] [place] [address] Dr. Rashmi Nolan Basophils/100 WBC (Bld) 0.4 % Normal 0.2-2.0 [facility] Comment on above: Performed By: #### C BC #### [facility] [address] [place] [address] Dr. Rashmi Nolan EO # 0.2 103/ul Normal 0.0-0.7 [facility] Comment on above: Performed By: #### C BC #### [facility] [address] [place] [address] Dr. Rashmi Nolan Eosinophils/100 WBC (Bld) 5.2 % Normal 0.9-7.0 [facility] Comment on above: Performed By: #### C BC #### [facility] [address] [place] [address] Dr. Rashmi Nolan Erythrocyte distribution width (RBC) [Ratio] 14.6 % Normal 11.0-15.0 [facility] Comment on above: Performed By: #### C BC #### [facility] [address] [place] [address] Dr. Rashmi Nolan Hematocrit (Bld) [Volume fraction] 23.7 % Critically low 42.0-54.0 [facility] Comment on above: Performed By: #### C BC #### [facility] [address] [place] [address] Dr. Rashmi Nolan Hemoglobin (Bld) [Mass/Vol] 7.8 g/dL Critically low 14.0-18.0 [facility] Comment on above: Performed By: #### C BC #### [facility] [address] [place] [address] Dr. Rashmi Nolan IG # 0.01 10e3/ul Normal 0.00-0.03 [facility] Comment on above: Performed By: #### C BC #### [facility] [address] [place] [address] Dr. Rashmi Nolan IG % 0.2 % Normal 0.0-0.5 [facility] Comment on above: Performed By: #### C BC #### [facility] [address] [address] [address] Rashmi Nolan LYMPH # 0.9 103/ul Critically low 1.2-3.8 [facility] Comment on above: Performed By: #### C BC #### [facility] [address] [address] [address] Rashmi Nolan Lymphocytes/100 WBC (Bld) 19.6 % Critically low 20.5-60.0 [facility] Comment on above: Performed By: #### C BC #### [facility] [address] [place] [address] Dr. Rashmi Nolan MANUAL DIFF REQ NO Normal [facility] Comment on above: Performed By: #### C BC #### [facility] [address] [place] [address] Dr. Rashmi Nolan MCH (RBC) [Entitic mass] 34.7 pg Critically high 25.9-34.0 [facility] Comment on above: Performed By: #### C BC #### [facility] [address] [place] [address] Dr. Rashmi Nolan MCHC (RBC) [Mass/Vol] 32.9 g/dL Normal 29.9-35.2 [facility] Comment on above: Performed By: #### C BC #### [facility] [address] [place] [address] Dr. Rashmi Nolan MCV (RBC) [Entitic vol] 105.3 fL Critically high 80.0-94.0 [facility] Comment on above: Performed By: #### C BC #### [facility] [address] [place] [address] Dr. Rashmi Nolan MONO # 0.3 103/ul Normal 0.3-0.8 [facility] Comment on above: Performed By: #### C BC #### [facility] [address] [place] [address] Dr. Rashmi Nolan Monocytes/100 WBC (Bld) 7.2 % Normal 1.7-12.0 [facility] Comment on above: Performed By: #### C BC #### [facility] [address] [address] [address] Rashmi Nolan NEUT # 3.0 103/ul Normal 1.4-6.5 [facility] Comment on above: Performed By: #### C BC #### [facility] [address] [address] [address] Rashmi Nolan Neutrophils/100 WBC (Bld) 67.4 % Normal 43.0-75.0 [facility] Comment on above: Performed By: #### C BC #### [facility] [address] [place] [address] Dr. Rashmi Nolan Platelet mean volume (Bld) [Entitic vol] 9.8 fL Normal 9.5-13.5 [facility] Comment on above: Performed By: #### C BC #### [facility] [address] [place] [address] Dr. Rashmi Nolan PLT 156 103/ul Normal 150-450 [facility] Comment on above: Performed By: #### C BC #### [facility] [address] [place] [address] Dr. Rashmi Nolan RBC 2.25 106/ul Critically low 4.70-6.10 [facility] Comment on above: Performed By: #### C BC #### [facility] [address] [place] [address] Dr. Rashmi Nolan WBC 4.5 103/ul Normal 4.0-11.0 [facility] Comment on above: Performed By: #### C BC #### [facility] [address] [place] [address] Dr. Rashmi Nolan CBC w/ Auto Diffon 3 Erythrocyte distribution width (RBC) [Ratio] 14.9 % High 10.9-14.2 [facility] Comment on above: Performed By: #### 2 [id number], [id number], [id number] #### [facility] [address] [place] [address] Hematocrit (Bld) [Volume fraction] 24.1 % Low 37.7-49.0 [facility] Comment on above: Performed By: #### 2 252490, 0398982, [id number] #### [facility] [address] [place] [address] Hemoglobin (Bld) [Mass/Vol] 8.1 g/dL Low 13.5-17.5 [facility] Comment on above: Performed By: #### 2 938003, 6120322, [id number] #### [facility] [address] [place] [address] MCH (RBC) [Entitic mass] 34.0 pg Normal 27.0-34.0 [facility] Comment on above: Performed By: #### 2 811703, [id number], [id number] #### [facility] [address] [place] [address] MCHC (RBC) [Mass/Vol] 33.6 g/dL Normal 31.4-36.0 [facility] Comment on above: Performed By: #### 2 271443, 0322234, [id number] #### [facility] [address] [place] [address] MCV (RBC) [Entitic vol] 101.1 fL High 80.0-100.0 [facility] Comment on above: Performed By: #### 2 172951, 3711128, [id number] #### [facility] [address] [place] [address] Platelet mean volume (Bld) [Entitic vol] 8.9 fL Normal 6.4-10.8 [facility] Comment on above: Performed By: #### 2 578997, 0484809, [id number] #### [facility] [address] [place] [address] Platelets (Bld) [#/Vol] 177.0 E9/L Normal 150.0-500.0 [facility] Comment on above: Performed By: #### 2 823095, 9252570, [id number] #### [facility] [address] [place] [address] RBC (Bld) [#/Vol] 2.4 E12/L Low 4.3-5.9 [facility] Comment on above: Performed By: #### 2 045664, [id number], [id number] #### [facility] [address] [place] [address] WBC corrected for nucl RBC Auto (Bld) [#/Vol] 5.2 E9/L Normal 4.0-11.0 [facility] Comment on above: Performed By: #### 2 040797, 9646062, [id number] #### [facility] [address] [place] [address] CHEMISTRYOrdered By: SYSTEM SYSTEM on 12-11-2022 Iron binding capacity [Mass/Vol] 417 ug/dL High 250 - 400 mcg/dL [facility] Remisol Transferrin [Mass/Vol] 298 mg/dL Normal 200 - 370 mg/dL [facility] Remisol Consent Formson 12-11-2022 Consent Forms [id number] #[id number] Normal [facility] Family Medicine Office/Clini c Noteon 12-11-2022 Family Medicine Office/Clinic Note HPI Staff Noemi is an 87 year old male who presents to establish care. 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 Martinez, Dr. Royal Jordan-Cardiology [facility], [facility] Last provider: [...] he turned 79 years old. Will call [facility] and request records for any colonoscopy in 2015 or more recent. Review of Systems PHQ Score Initial Depression Screen Score: 0 Physical Exam Vitals & Measurements HR: 60(Peripheral) BP: 128/62 SpO2: 98% HT: 70 in HT: 178.5 cm WT: 99 kg WT: 217.8 lb BMI: 31.07 Assessment/Plan 1. Black tarry stools (K92.1: Melena) Ordered: CBC w/ Auto Diff Fibrinogen Lvl [facility] Internal Ambulatory Referral Lab Specimen Collect [id number] PT & PTT Stool Occult Blood Stool Occult Blood TIBC Calculated 2. Family hx of colon cancer (Z80.0: Family history of malignant neoplasm of digestive organs) Ordered: [facility] Internal Ambulatory Referral Lab Specimen Collect [id number] Stool Occult Blood 3. Colon cancer screening (Z12.11: Encounter for screening for malignant neoplasm of colon) Ordered: [facility] Internal Ambulatory Referral Lab Specimen Collect [id number] Stool Occult Blood 4. BMI 31.0-31.9,adult (Z68.31: Body mass index [BMI] 31.0-31.9, adult) Ordered: [facility] Internal Ambulatory Referral Stool [...] above: Result Comment: Elec tronically Signed By: Sheng Simms\.br\Date and Time Signed: 12/11/22 13:49 EDT Family Medicine Office/Clinic Note HPI Staff Noemi is an 87 year old male who presents to establish care. 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 Martinez, Dr. Royal Jordan-Cardiology [facility], [facility] Last provider: [...] he turned 79 years old. Will call [facility] and request records for any colonoscopy in [...] he had colonoscopy 6-7 years ago at [facility]. will call to access those records. pt has significant family history of colon cancer. will send stool to lab, will draw CBC and clotting studies in office today. will call patient tomorrow to advise if he should stop taking warfarin depending on lab results. all questions answered. RTC as needed Ordered: CBC w/ Auto Diff Fibrinogen Lvl [facility] Internal Ambulatory Referral PT & PTT Stool Occult Blood Stool Occult Blood TIBC Calculated 2. Family hx of colon cancer (Z80.0: Family history of malignant neoplasm of digestive organs) referral to Dr. Jiang placed for scope Ordered: [facility] Internal Ambulatory Referral Stool Occult Blood 3. Colon cancer screening (Z12.11: Encounter for screening for malignant neoplasm of colon) see above Ordered: [facility] Internal Ambulatory Referral Stool Occult Blood 4. BMI 31.0-31.9,adult (Z68.31: Body mass index [BMI] 31.0-31.9, adult) BMI education complete Ordered: [facility] Internal Ambulatory Referral Stool [...] neoplasm of (more content not included)... Normal [facility] Comment on above: Result Comment: Elec tronically Signed By: Sheng [email or web address].viviane\Date and Time Signed: 12/11/22 13:48 EDT HEMATOLOGYOrdered [...] (12/11/22 12:14 PM) Invalid Interpretation Code Negative [facility] Man Sero PROF 14(COMP METB)on 023 Albumin [Mass/Vol] 3.8 g/dL Normal 3.4-5.0 [facility] Comment on above: Performed By: #### B MP #### [facility] [address] [place] [address] Dr. Rashmi Nolan Albumin/Globulin [Mass ratio] 1.1 {ratio} Normal [facility] Comment on above: Performed By: #### B MP #### [facility] [address] [place] [address] Dr. Rashmi Nolan ALP [Catalytic activity/Vol] 178 U/L Critically high 46-116 [facility] Comment on above: Performed By: #### B MP #### [facility] [address] [address] [address] Rashmi Nolan ALT [Catalytic activity/Vol] 17 U/L Normal 16-63 [facility] Comment on above: Performed By: #### B MP #### [facility] [address] [address] [address] Rashmi Nolan Anion gap [Moles/Vol] 15.6 mmol/L Normal [facility] Comment on above: Performed By: #### B MP #### [facility] [address] [address] [address] Rashmi Nolan AST [Catalytic activity/Vol] 12 U/L Critically low 15-37 [facility] Comment on above: Performed By: #### B MP #### [facility] [address] [address] [address] Rashmi Nolan Bilirubin [Mass/Vol] 0.2 mg/dL Normal 0.2-1.0 [facility] Comment on above: Performed By: #### B MP #### [facility] [address] [address] [address] Rashmi Nolan Calcium [Mass/Vol] 9.5 mg/dL Normal 8.5-10.1 [facility] Comment on above: Performed By: #### B MP #### [facility] [address] [address] [address] Rashmi Nolan Chloride [Moles/Vol] 109 mmol/L Critically high 98-107 [facility] Comment on above: Performed By: #### B MP #### [facility] [address] [address] [address] Rashmi Nolan CO2 [Moles/Vol] 22.5 mmol/L Normal 21.0-32.0 [facility] [place] Comment on above: Performed By: #### B MP #### [facility] [address] [address] [address] Rashmi Nolan Creatinine [Mass/Vol] 2.11 mg/dL Critically high 0.70-1.30 [facility] Comment on above: Performed By: #### B MP #### [facility] [address] [address] [address] Rashmi Nolan EGFR-AF [facility] 36 mL/min/1.73m2 Critically low >=60 [facility] Comment on above: Performed By: #### B MP #### [facility] [address] [address] [address] Rashmi Nolan EGFR-NON AF [facility] 30 mL/min/1.73m2 Critically low >=60 [facility] Comment on above: Performed By: #### B MP #### [facility] [address] [address] [address] Rashmi Nolan Globulin (S) [Mass/Vol] 3.4 g/dL Normal [facility] Comment on above: Performed By: #### B MP #### [facility] [address] [address] [address] Rashmi Nolan Glucose [Mass/Vol] 115 mg/dL Critically high 74-106 [facility] [place] [facility] Comment on above: Performed By: #### B MP #### [facility] [address] [place] [address] Dr. Rashmi Nolan Potassium [Moles/Vol] 5.1 mmol/L Normal 3.5-5.1 [facility] Comment on above: Performed By: #### B MP #### [facility] [address] [address] [address] Rashmi Nolan Protein [Mass/Vol] 7.2 g/dL Normal 6.4-8.2 [facility] Comment on above: Performed By: #### B MP #### [facility] [address] [place] [address] Dr. Rashmi Nolan Sodium [Moles/Vol] 142 mmol/L Normal 136-145 [facility] Comment on above: Performed By: #### B MP #### [facility] [address] [address] [address] Rashmi Nolan Urea nitrogen [Mass/Vol] 57.0 mg/dL Critically high 7.0-18.0 [facility] Comment on above: Performed By: #### B MP #### [facility] [address] [place] [address] Dr. Rashmi Nolan Urea nitrogen/Creatinine [Mass ratio] 27.0 mg/mg Normal [facility] Comment on above: Performed By: #### B MP #### [facility] [address] [place] [address] Dr. Rashmi Nolan PROTIMEon 12-11-2022 INR Coag (PPP) [Relative time] 1.95 {INR} Normal [facility] Comment on above: Performed By: #### P T, PTT #### [facility] [address] [place] [address] Dr. Rashmi Nolan INR GUIDELINES SEE BELOW Normal [facility] Comment on above: Result Comment: ENOC RED INR: 2.0 - 3.0 CONDITIONS NOT LISTED BELOW 2.5 - 3.5 FOR PROSTHETIC HEART VALVE REPLACEMENT 2.5 - 3.5 RECURRENT THROMBOSIS Performed By: #### P T, PTT #### [facility] [address] [place] [address] Dr. Rashmi Nolan PT Coag (PPP) [Time] 19.9 s Critically high 9.0-11.6 [facility] Comment on above: Performed By: #### P T, PTT #### [facility] [address] [place] [address] Dr. Rashmi Nolan PTTon 12-11-2022 aPTT Coag (Bld) [Time] 30.3 s Normal 22.3-36.2 [facility] Comment on above: Performed By: #### P T, PTT #### [facility] [address] [place] [address] Dr. Rashmi Nolan Stl Oclt Bldon 12-11-2022 Occult Bld Stl Positive Abnormal Negative [facility] Comment on above: Performed By: #### 2 [id number] ####[facility] [id number] [id number] TIBC Calculatedon 12-11-2022 Iron binding capacity [Mass/Vol] 417 microgram/dL High 250-400 [facility] Comment on above: Performed By: #### 2 692559, [id number], [id number] ####[facility] [id number] [id number] Transferrin [Mass/Vol] 298 mg/dL Normal 200-370 [facility] Comment on above: Performed By: #### 2 [id number], [id number], [id number] ####[facility] [id number] [id number] TYPE AND SCREENon 12-11-2022 TYPE AND SCREEN Negative Normal [facility] Comment on above: Performed By: #### C #### [facility] [address], [place] [address] Dr. Rashmi Nolan XR CHEST 1 Von [...] STEPHANIE LIU Date: 2022-12-11 21:04 Normal [facility] Inpatient Patient Summaryon 12-10-2022 Inpatient [place] [address] Patient Discharge Instructions Name: RY LERNER : 1935 Patient Address: [address] [place] [address] Primary Care Provider: Name: John Nieves MD After you are discharged if you find you have any questions, please, call [phone] ext [phone] to speak to a nurse. 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 If you or anyone you know is experiencing suicidal thoughts, mental health, alcohol and/or drug addiction problems; contact the [facility] 18/02 Crisis Hotline -Text 4HFVY bk 031108. If you received any narcotics, sedation, or [...] business decisions or sign any legal documents [facility] would like to thank you for allowing us to assist you with your healthcare needs. The following includes patient education materials and information regarding your injury/illness. RY LERNER has been given the following list of follow-up instructions, prescriptions, and patient education materials: Follow-up Instructions With: Address: When: Ward Martinez [address] [place] [address], [address] [place] [id number] Business (1) 12/18/2022 1:30 PM Medications During [...] 3. 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 Change your [...] or concerns, please call the office at [phone] 7. Follow up as scheduled Viruses or [...] and Prevention Septe (more content not included)... [facility] Preoperative Record MAGR Pre-Op Record Summary Primary Physician: Ward Martinez DO Finalized Date/Time: 12/10/22 15:29:41 Pt. Name: RY LERNER/Sex: 1935 MALE Med Rec #: [id number] Physician: Ward Martinez DO Financial #: [id number] Pt. Type: D Room/Bed: / Admit/Disch: 12/10/22 [...] Signed By: Maile Palmer RN 12/10/22 15:29 [facility] Patient Handouton 12-10-[address] 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 Keep your hand elevated above your elbow for the first 24 hours after surgery 2. Wiggle your fingers frequently while awake 3. 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 Change your [...] or concerns, please call the office at [phone] 7. Follow up as scheduled Normal [facility] Historical Records Officeon 11-14-2022 Historical Records Office [id number] #1.00CD:127 Normal [facility] 36on 11-13-2022 36 Potassium was high, renal function is stable. Can stop taking potassium supplement and repeat BMP in one week. Normal [facility] Physician Referralon 023 Physician Referral [id number]#1.00CD:127 Normal [facility] Physician Referral [id number] #1.00CD:127 Normal [facility] MAGNESIUMon 11-06-2022 Magnesium [Mass/Vol] 2.2 mg/dL Normal 1.8-2.4 [facility] Comment on above: Performed By: #### B MP, MG #### [facility] [address] [address] [address] Rashmi Nolan Office Visiton 11-06-2022 Follow-up visit [id number] Ry Lerner 1935 M Date Provider Department Center 11/06/2022 [id number]-ISUXHKAJJSOLIS [facility] Family History Family history unknown: Yes Level of Service:04342 [place] OFFICE/OUTPATIENT ESTABLISHED MOD MDM 30-39 MIN Reason for Visit and Comments: Atrial Fibrillation [80] Hypertension [671993] Normal [facility] PROF CHEM 8 (BAS METB)on Anion gap [Moles/Vol] 15.0 mmol/L Normal [facility] Comment on above: Performed By: #### B MP, MG #### [facility] [address] [place] [address] Dr. Rashmi Nolan Calcium [Mass/Vol] 10.0 mg/dL Normal 8.5-10.1 [facility] Comment on above: Performed By: #### B MP, MG #### [facility] [address] [place] [address] Dr. Rashmi Nolan Chloride [Moles/Vol] 108 mmol/L Critically high 98-107 [facility] Comment on above: Performed By: #### B MP, MG #### [facility] [address] [address] [address] Rashmi Nolan CO2 [Moles/Vol] 25.4 mmol/L Normal 21.0-32.0 [facility] [place] Comment on above: Performed By: #### B MP, MG #### [facility] [address] [place] [address] Dr. Rashmi Nolan Creatinine [Mass/Vol] 1.98 mg/dL Critically high 0.70-1.30 [facility] Comment on above: Performed By: #### B MP, MG #### [facility] [address] [address] [address] Rashmi Nolan EGFR-AF [facility] 39 mL/min/1.73m2 Critically low >=60 [facility] Comment on above: Performed By: #### B MP, MG #### [facility] [address] [place] [address] Dr. Rashmi Nolan EGFR-NON AF [facility] 32 mL/min/1.73m2 Critically low >=60 [facility] Comment on above: Performed By: #### B MP, MG #### [facility] [address] [place] [address] Dr. Rashmi Nolan Glucose [Mass/Vol] 99 mg/dL Normal 74-106 [facility] Comment on above: Performed By: #### B MP, MG #### [facility] [address] [place] [address] Dr. Rashmi Nolan Potassium [Moles/Vol] 5.4 mmol/L Critically high 3.5-5.1 [facility] Comment on above: Performed By: #### B MP, MG #### [facility] [address] [place] [address] Dr. Rashmi Nolan Sodium [Moles/Vol] 143 mmol/L Normal 136-145 [facility] Comment on above: Performed By: #### B MP, MG #### [facility] [address] [place] [address] Dr. Rashmi Nolan Urea nitrogen [Mass/Vol] 52.0 mg/dL Critically high 7.0-18.0 [facility] Comment on above: Performed By: #### B MP, MG #### [facility] [address] [place] [address] Dr. Rashmi Nolan Urea nitrogen/Creatinine [Mass ratio] 26.3 mg/mg Normal [facility] Comment on above: Performed By: #### B MP, MG #### [facility] [address] [place] [address] Dr. Rashmi Nolan EMG Electromyographyon 10-16 EMG Electromyography [id number] #1.00CD:127 Normal [facility] EMG Electromyography [id number] #1.00CD:127 Normal [facility] Lab Reportson 10-16-2022 Lab Reports [id number]# 1.00CD:127 Normal [facility] VIT B12 AND FOLATEon 023 Cobalamin (Vitamin B12) [Mass/Vol] 514.0 pg/mL Normal 193.0-986.0 [facility] Comment on above: Performed By: #### B MP #### [facility] [address] [place] [address] Dr. Rashmi Nolan FOLATE 10.00 ng/mL Normal 8.60-58.90 [facility] Comment on above: Performed By: #### B MP #### [facility] [address] [place] [address] Dr. Rashmi Nolan CBC AUTO DIFFon 08-16-2022 BASO # 0.0 103/ul Normal 0.0-0.1 [facility] Comment on above: Performed By: #### B MP #### [facility] [address] [place] [address] Dr. Rashmi Nolan Basophils/100 WBC (Bld) 0.8 % Normal 0.2-2.0 [facility] Comment on above: Performed By: #### B MP #### [facility] [address] [place] [address] Dr. Rashmi Nolan EO # 0.3 103/ul Normal 0.0-0.7 [facility] Comment on above: Performed By: #### B MP #### [facility] [address] [place] [address] Dr. Rashmi Nolan Eosinophils/100 WBC (Bld) 7.8 % Critically high 0.9-7.0 [facility] Comment on above: Performed By: #### B MP #### [facility] [address] [place] [address] Dr. Rashmi Nolan Erythrocyte distribution width (RBC) [Ratio] 13.2 % Normal 11.0-15.0 [facility] Comment on above: Performed By: #### B MP #### [facility] [address] [place] [address] Dr. Rashmi Nolan Hematocrit (Bld) [Volume fraction] 33.2 % Critically low 42.0-54.0 [facility] Comment on above: Performed By: #### B MP #### [facility] [address] [place] [address] Dr. Rashmi Nolan Hemoglobin (Bld) [Mass/Vol] 10.8 g/dL Critically low 14.0-18.0 [facility] Comment on above: Performed By: #### B MP #### [facility] [address] [place] [address] Dr. Rashmi Nolan IG # 0.01 10e3/ul Normal 0.00-0.03 [facility] Comment on above: Performed By: #### B MP #### [facility] [address] [place] [address] Dr. Rashmi Nolan IG % 0.3 % Normal 0.0-0.5 [facility] Comment on above: Performed By: #### B MP #### [facility] [address] [place] [address] Dr. Rashmi Nolan LYMPH # 1.0 103/ul Critically low 1.2-3.8 [facility] Comment on above: Performed By: #### B MP #### [facility] [address] [place] [address] Dr. Rashmi Nolan Lymphocytes/100 WBC (Bld) 24.7 % Normal 20.5-60.0 [facility] Comment on above: Performed By: #### B MP #### [facility] [address] [place] [address] Dr. Rashmi Nolan MANUAL DIFF REQ NO Normal [facility] Comment on above: Performed By: #### B MP #### [facility] [address] [place] [address] Dr. Rashmi Nolan MCH (RBC) [Entitic mass] 33.0 pg Normal 25.9-34.0 [facility] Comment on above: Performed By: #### B MP #### [facility] [address] [address] [address] Rashmi Nolan MCHC (RBC) [Mass/Vol] 32.5 g/dL Normal 29.9-35.2 [facility] Comment on above: Performed By: #### B MP #### [facility] [address] [address] [address] Rashmi Nolan MCV (RBC) [Entitic vol] 101.5 fL Critically high 80.0-94.0 [facility] Comment on above: Performed By: #### B MP #### [facility] [address] [address] [address] Rashmi Nolan MONO # 0.4 103/ul Normal 0.3-0.8 [facility] Comment on above: Performed By: #### B MP #### [facility] [address] [address] [address] Rashmi Nolan Monocytes/100 WBC (Bld) 10.7 % Normal 1.7-12.0 [facility] Comment on above: Performed By: #### B MP #### [facility] [address] [address] [address] Rashmi Nolan NEUT # 2.1 103/ul Normal 1.4-6.5 [facility] Comment on above: Performed By: #### B MP #### [facility] [address] [address] [address] Rashmi Nolan Neutrophils/100 WBC (Bld) 55.7 % Normal 43.0-75.0 [facility] Comment on above: Performed By: #### B MP #### [facility] [address] [address] [address] Rashmi Nolan Platelet mean volume (Bld) [Entitic vol] 10.5 fL Normal 9.5-13.5 [facility] Comment on above: Performed By: #### B MP #### [facility] [address] [address] [address] Rashmi Nolan PLT 160 103/ul Normal 150-450 [facility] Comment on above: Performed By: #### B MP #### [facility] [address] [address] [address] Rashmi Nolan RBC 3.27 106/ul Critically low 4.70-6.10 [facility] Comment on above: Performed By: #### B MP #### [facility] [address] [address] [address] Rashmi Nolan WBC 3.8 103/ul Critically low 4.0-11.0 [facility] Comment on above: Performed By: #### B MP #### [facility] [address] [address] [address] Rashmi Nolan LIPID PROFILEon 08-16-2022 CHOL-HDL RATIO NORM SEE BELOW Normal [facility] Comment on above: Result Comment: 3.3 - 4.4 LOW RISK 4.4 - 7.1 AVERAGE RISK 7.1 - 11.0 MODERATE RISK >11.0 HIGH RISK Performed By: #### B MP #### [facility] [address] [address] [address] Rashmi Nolan Cholesterol [Mass/Vol] 166 mg/dL Normal <=200 [facility] Comment on above: Performed By: #### B MP #### [facility] [address] [address] [address] Rashmi Nolan Cholesterol in HDL [Mass/Vol] 42 mg/dL Normal 40-60 [facility] Comment on above: Performed By: #### B MP #### [facility] [address] [address] [address] Rashmi Nolan Cholesterol in LDL [Mass/Vol] 110.4 mg/dL Normal [facility] Comment on above: Performed By: #### B MP #### [facility] [address] [address] [address] Rashmi Nolan Cholesterol.total/Cho lesterol in HDL [Mass ratio] 4.0 {ratio} Normal [facility] Comment on above: Performed By: #### B MP #### [facility] [address] [address] [address] Rashmi Nolan HDL NORMAL > or = 60 mg/dl - LOW CARDIOVASCULAR RISK <40 mg/dl - HIGH CARDIOVASCULAR RISK Normal [facility] Comment on above: Performed By: #### B MP #### [facility] [address] [address] [address] Rashmi Nolan LDL CALC NORMAL SEE BELOW Normal [facility] Comment on above: Result Comment: <100 mg/dl OPTIMAL 100 - 129 mg/dl NEAR OR ABOVE OPTIMAL 130 - 159 mg/dl BORDERLINE HIGH 160 - 189 mg/dl HIGH >190 mg/dl VERY HIGH Performed By: #### B MP #### [facility] [address] [address] [address] Rashmi Nolan Triglyceride [Mass/Vol] 68 mg/dL Normal <=150 [facility] Comment on above: Performed By: #### B MP #### [facility] [address] [place] [address] Dr. Rashmi Nolan VLDL CALC 13.6 mg/dL Normal [facility] Comment on above: Performed By: #### B MP #### [facility] [address] [address] [address] Rashmi Nolan PROF 14(COMP METB)on 023 Albumin [Mass/Vol] 3.9 g/dL Normal 3.4-5.0 [facility] Comment on above: Performed By: #### B MP #### [facility] [address] [place] [address] Dr. Rashmi Nolan Albumin/Globulin [Mass ratio] 1.1 {ratio} Normal [facility] Comment on above: Performed By: #### B MP #### [facility] [address] [place] [address] Dr. Rashmi Nolan ALP [Catalytic activity/Vol] 190 U/L Critically high 46-116 [facility] Comment on above: Performed By: #### B MP #### [facility] [address] [place] [address] Dr. Rashmi Nolan ALT [Catalytic activity/Vol] 15 U/L Critically low 16-63 [facility] Comment on above: Performed By: #### B MP #### [facility] [address] [place] [address] Dr. Rashmi Nolan Anion gap [Moles/Vol] 15.2 mmol/L Normal [facility] Comment on above: Performed By: #### B MP #### [facility] [address] [address] [address] Rashmi Nolan AST [Catalytic activity/Vol] 17 U/L Normal 15-37 [facility] Comment on above: Performed By: #### B MP #### [facility] [address] [address] [address] Rashmi Nolan Bilirubin [Mass/Vol] 0.4 mg/dL Normal 0.2-1.0 [facility] Comment on above: Performed By: #### B MP #### [facility] [address] [place] [address] Dr. Rashmi Nolan Calcium [Mass/Vol] 10.0 mg/dL Normal 8.5-10.1 [facility] Comment on above: Performed By: #### B MP #### [facility] [address] [address] [address] Rashmi Nolan Chloride [Moles/Vol] 108 mmol/L Critically high 98-107 [facility] Comment on above: Performed By: #### B MP #### [facility] [address] [address] [address] Rashmi Nolan CO2 [Moles/Vol] 25.8 mmol/L Normal 21.0-32.0 [facility] [place] Comment on above: Performed By: #### B MP #### [facility] [address] [address] [address] Rashmi Nolan Creatinine [Mass/Vol] 1.78 mg/dL Critically high 0.70-1.30 [facility] Comment on above: Performed By: #### B MP #### [facility] [address] [place] [address] Dr. Rashmi Nolan EGFR-AF [facility] 44 mL/min/1.73m2 Critically low >=60 [facility] Comment on above: Performed By: #### B MP #### [facility] [address] [address] [address] Rashmi Nolan EGFR-NON AF [facility] 36 mL/min/1.73m2 Critically low >=60 [facility] Comment on above: Performed By: #### B MP #### [facility] [address] [place] [address] Dr. Rashmi Nolan Globulin (S) [Mass/Vol] 3.7 g/dL Normal [facility] Comment on above: Performed By: #### B MP #### [facility] [address] [address] [address] Rashmi Nolan Glucose [Mass/Vol] 100 mg/dL Normal 74-106 [facility] Comment on above: Performed By: #### B MP #### [facility] [address] [place] [address] Dr. Rashmi Nolan Potassium [Moles/Vol] 5.0 mmol/L Normal 3.5-5.1 [facility] Comment on above: Performed By: #### B MP #### [facility] [address] [place] [address] Dr. Rashmi Nolan Protein [Mass/Vol] 7.6 g/dL Normal 6.4-8.2 [facility] Comment on above: Performed By: #### B MP #### [facility] [address] [place] [address] Dr. Rashmi Nolan Sodium [Moles/Vol] 144 mmol/L Normal 136-145 [facility] Comment on above: Performed By: #### B MP #### [facility] [address] [place] [address] Dr. Rashmi Nolan Urea nitrogen [Mass/Vol] 52.0 mg/dL Critically high 7.0-18.0 [facility] Comment on above: Performed By: #### B MP #### [facility] [address] [place] [address] Dr. Rashmi Nolan Urea nitrogen/Creatinine [Mass ratio] 29.2 mg/mg Normal [facility] Comment on above: Performed By: #### B MP #### [facility] [address] [place], [place] [address] Dr. Rashmi Nolan Office Visiton 12-27-2022 Follow-up visit [id number] Ry Lerner Lisbet 1935 M Date Provider Department Center 07/24/2022 ROYAL ENRIQUE CARD [facility] No family history on file Level of Service:02776 [place] OFFICE/OUTPATIENT ESTABLISHED LOW MDM 20-29 MIN Reason for Visit and Comments: Chest Pain [193746] Normal [facility] PROF CHEM 8 (BAS METB)on Anion gap [Moles/Vol] 13.3 mmol/L Normal [facility] Comment on above: Performed By: #### C BC #### [facility] [address] [address] [address] Rashmi Nolan Calcium [Mass/Vol] 10.1 mg/dL Normal 8.5-10.1 [facility] Comment on above: Performed By: #### C BC #### [facility] [address] [place] [address] Dr. Rashmi Nolan Chloride [Moles/Vol] 104 mmol/L Normal 98-107 [facility] Comment on above: Performed By: #### C BC #### [facility] [address] [address] [address] Rashmi Nolan CO2 [Moles/Vol] 28.7 mmol/L Normal 21.0-32.0 [facility] [place] Comment on above: Performed By: #### C BC #### [facility] [address] [address] [address] Rashmi Nolan Creatinine [Mass/Vol] 1.87 mg/dL Critically high 0.70-1.30 [facility] Comment on above: Performed By: #### C BC #### [facility] [address] [address] [address] Rashmi Nolan EGFR-AF [facility] 42 mL/min/1.73m2 Critically low >=60 [facility] Comment on above: Performed By: #### C BC #### [facility] [address] [address] [address] Rashmi Nolan EGFR-NON AF [facility] 34 mL/min/1.73m2 Critically low >=60 [facility] Comment on above: Performed By: #### C BC #### [facility] [address] [address] [address] Rashmi Nolan Glucose [Mass/Vol] 101 mg/dL Normal 74-106 [facility] Comment on above: Performed By: #### C BC #### [facility] [address] [address] [address] Rashmi Nolan Potassium [Moles/Vol] 5.0 mmol/L Normal 3.5-5.1 [facility] Comment on above: Performed By: #### C BC #### [facility] [address] [address] [address] Rashmi Nolan Sodium [Moles/Vol] 141 mmol/L Normal 136-145 [facility] Comment on above: Performed By: #### C BC #### [facility] [address] [address] [address] Rashmi Nolan Urea nitrogen [Mass/Vol] 41.0 mg/dL Critically high 7.0-18.0 [facility] Comment on above: Performed By: #### C BC #### [facility] [address] [address] [address] Rashmi Nolan Urea nitrogen/Creatinine [Mass ratio] 21.9 mg/mg Normal [facility] Comment on above: Performed By: #### C BC #### [facility] [address] [address] [address] Rashmi Nolan COVID/FLU RT-PCRon 2 SARS-CoV-2 (COVID-19) RNA ETELVINA+probe Ql (Unsp spec) Positive [employer] Other COVID/FLU RT-PCR Negative [facility] [employer] Other BNPon 02-15-2022 Natriuretic peptide B (Bld) [Mass/Vol] 1653.0 pg/mL Normal <=1,800.0 [facility] Comment on above: Performed By: #### C BC #### [facility] [address] [address] [address] Rashmi Nolan PROF CHEM 8 (BAS METB)on Anion gap [Moles/Vol] 15.8 mmol/L Normal Th [facility] Comment on above: Performed By: #### C BC #### [facility] [address] [address] [address] Rashmi Nolan Calcium [Mass/Vol] 9.6 mg/dL Normal 8.5-10.1 [facility] Comment on above: Performed By: #### C BC #### [facility] [address] [address] [address] Rashmi Nolan Chloride [Moles/Vol] 108 mmol/L Critically high 98-107 [facility] Comment on above: Performed By: #### C BC #### [facility] [address] [place] [address] Dr. Rashmi Nolan CO2 [Moles/Vol] 24.2 mmol/L Normal 21.0-32.0 [facility] [place] Comment on above: Performed By: #### C BC #### [facility] [address] [place] [address] Dr. Rashmi Nolan Creatinine [Mass/Vol] 1.87 mg/dL Critically high 0.70-1.30 [facility] Comment on above: Performed By: #### C BC #### [facility] [address] [place] [address] Dr. Rashmi Nolan EGFR-AF [facility] 42 mL/min/1.73m2 Critically low >=60 [facility] Comment on above: Performed By: #### C BC #### [facility] [address] [address] [address] Rashmi Nolan EGFR-NON AF [facility] 34 mL/min/1.73m2 Critically low >=60 [facility] Comment on above: Performed By: #### C BC #### [facility] [address] [place] [address] Dr. Rashmi Nolan Glucose [Mass/Vol] 107 mg/dL Critically high 74-106 [facility] Comment on above: Performed By: #### C BC #### [facility] [address] [address] [address] Rashmi Nolan Potassium [Moles/Vol] 5.0 mmol/L Normal 3.5-5.1 [facility] Comment on above: Performed By: #### C BC #### [facility] [address] [place] [address] Dr. Rashmi Nolan Sodium [Moles/Vol] 143 mmol/L Normal 136-145 [facility] Comment on above: Performed By: #### C BC #### [facility] [address] [place] [address] Dr. Rashmi Nolan Urea nitrogen [Mass/Vol] 28.0 mg/dL Critically high 7.0-18.0 [facility] Comment on above: Performed By: #### C BC #### [facility] [address] [place] [address] Dr. Rashmi Nolan Urea nitrogen/Creatinine [Mass ratio] 15.0 mg/mg Normal [facility] Comment on above: Performed By: #### C BC #### [facility] [address] [place] [address] Dr. Rashmi Nolan APTTon 10-13-2021 aPTT Coag (Bld) [Time] 36.7 s High 25.0-35.0 [facility] Comment on above: Result Comment: [...] PURPOSE. Performed By: #### [id number] #### [facility] [address] [place] [address], [facility] BASIC METABOLIC PANELon 09-26 Calcium [Mass/Vol] 9.7 mg/dL Normal 8.6-10.3 [facility] Comment on above: Performed By: #### 0 [id number], [id number], [id number], 05841 #### [facility] [address] [place] [address], [facility] Chloride [Moles/Vol] 108 mmol/L High 98-107 [facility] Comment on above: Performed By: #### 0 0071, 08244, 85013, [id number] #### [facility] [address] [place] [address], [place] CO2 [Moles/Vol] 23 mmol/L Normal 21-31 [facility] Comment on above: Performed By: #### 0 0071, 78904, 06080, 84848 #### [facility] [address] [place] [address], [place] Creatinine [Mass/Vol] 1.98 mg/dL High 0.70-1.30 The [facility] Comment on above: Performed By: #### 0 0071, 18587, 73589, 87983 #### [facility] [address] [place] [address], [facility] eGFR- 39 ml/min/1.73sq m Abnormal >60 The [facility] Comment on above: Result Comment: Calc ulation may not be valid for patients over 70 years Performed By: #### 0 0071, 16017, 94600, 30098 #### [facility] [address] [place] [address], [place] eGFR- non- 32 ml/min/1.73sq m Abnormal >60 The [facility] Comment on above: Result Comment: Calc ulation may not be valid for patients over 70 years Performed By: #### 0 0071, 87614, 68617, 20601 #### [facility] [address] [place] [address], [place] Glucose [Mass/Vol] 88 mg/dL Normal 70-100 [facility] Comment on above: Performed By: #### 0 0071, 40365, 72722, 15729 #### [facility] [address] [place] [address], [place] Potassium [Moles/Vol] 4.8 mmol/L Normal 3.5-5.1 The [facility] Comment on above: Performed By: #### 0 0071, 20740, 55384, 92418 #### [facility] 3000 [facility]. [address] Sodium [Moles/Vol] 138 mmol/L Normal 136-145 The [facility] Comment on above: Performed By: #### 0 0071, 56927, 35362, 80936 #### [facility] 3000 [facility]. [address] Urea nitrogen [Mass/Vol] 46 mg/dL High 7-25 The [facility] Comment on above: Performed By: #### 0 0071, 34969, 07464, 17815 #### [facility] [address] BNP EDon 10-13-2021 Natriuretic peptide B (Bld) [Mass/Vol] 428 pg/mL High 0-100 The [facility] Comment on above: Result Comment: Give n the appropriate clinical setting a BNP result of >100 pg/mL indicates congestive heart failure. Performed By: #### 3 0935 #### [facility] [address] CBC W/DIFFon 10-13-2021 ABS IMM GRANS 0.0 10*3/uL Normal 0.0-0.2 The [facility] Comment on above: Performed By: #### 5 0103 #### [facility] [address] ABS NEUTROPHILS 2.8 10*3/uL Normal 1.6-7.6 The The [facility] Comment on above: Performed By: #### 5 0103 #### [facility] [address] [place] [address], [facility] Basophils (Bld) [#/Vol] 0.0 10*3/uL Normal 0.0-0.2 The [facility] Comment on above: Performed By: #### 5 0103 #### [facility] [address] [place] [address], [facility] Basophils/100 WBC (Bld) 0.5 % Normal 0.0-1.0 The [facility] Comment on above: Performed By: #### 5 0103 #### [facility] [address] [place] [address], [facility] Eosinophils (Bld) [#/Vol] 0.3 10*3/uL Normal 0.0-0.5 The [facility] Comment on above: Performed By: #### 5 0103 #### [facility] [address] [facility] [place] [address], [facility] Eosinophils/100 WBC (Bld) 7.4 % High 0.0-6.0 The [facility] Comment on above: Performed By: #### 5 0103 #### [facility] [address] [facility] [address] Erythrocyte distribution width (RBC) [Ratio] 13.9 % Normal 11.5-15.0 The [facility] Comment on above: Performed By: #### 5 0103 #### [facility] [address] [facility] [place] [address], [facility] Hematocrit (Bld) [Volume fraction] 33.5 % Low 39.0-50.0 The [facility] Comment on above: Performed By: #### 5 0103 #### [facility] [address] [facility] [place] [address], [facility] Hemoglobin (Bld) [Mass/Vol] 11.4 g/dL Low 13.0-17.0 The [facility] Comment on above: Performed By: #### 5 0103 #### [facility] [address] [place] [address], [facility] IMMATURE GRANS 0.2 % Normal 0.0-1.0 The [facility] Comment on above: Performed By: #### 5 3 #### [facility] [address] Lymphocytes (Bld) [#/Vol] 0.9 10*3/uL Low 1.2-4.0 The [facility] Comment on above: Performed By: #### 5 3 #### [facility] [address] [facility] [place] [address], [facility] Lymphocytes/100 WBC (Bld) 20.1 % Normal 20.0-45.0 The [facility] Comment on above: Performed By: #### 102 #### [facility] [address] MCH (RBC) [Entitic mass] 33.1 pg High 27.0-33.0 The [facility] Comment on above: Performed By: #### 102 #### [facility] [address] MCHC (RBC) [Mass/Vol] 34.0 g/dL Normal 32.0-35.0 The [facility] Comment on above: Performed By: #### 102 #### [facility] [address] MCV (RBC) [Entitic vol] 97.4 fL Normal 82.0-98.0 The [facility] Comment on above: Performed By: #### 5 3 #### [facility] [address] [facility] [place] [address], [facility] Monocytes (Bld) [#/Vol] 0.4 10*3/uL Normal 0.1-1.0 The [facility] Comment on above: Performed By: #### 3 #### [facility] [address] [place] [address], [facility] MONOS 8.4 % Normal 5.0-12.0 The [facility] Comment on above: Performed By: #### 102 #### [facility] [address] [facility] [place] [address], [facility] Neutrophils/100 WBC (Bld) 63.4 % Normal 40.0-72.0 The [facility] Comment on above: Performed By: #### 5 0103 #### [facility] [address] [facility] [place] [address], [facility] Nucleated RBC/100 WBC (Bld) [Ratio] 0 % Normal 0-0 The [facility] Comment on above: Performed By: #### 5 0103 #### [facility] [address] [place] [address], [facility] PLAT CNT 116 10*3/uL Low 150-400 [facility] Comment on above: Performed By: #### 5 0103 #### [facility] [address] [place] [address], [facility] RBC (Bld) [#/Vol] 3.44 10*6/uL Low 4.20-5.70 [facility] Comment on above: Performed By: #### 5 0103 #### [facility] [address] [place] [address], [facility] WBC (Bld) [#/Vol] 4.43 10*3/uL Normal 4.00-10.60 The [facility] Comment on above: Performed By: #### 5 0103 #### [id number] [place] [address] Cardiovascular Lab Reporton 10-13-2021 Cardiovascular Lab Report [facility]: [id number] Physician: Royal Gandara MD Department of Service Date: 10/13/2021 Medicine Birthdate: 1935 Division of Room #: [facility] Cardiology Adult Cardiovascular Services [address] [address] Cardiovascular Laboratory Report PACEMAKER IMPLANT PROCEDURE NOTE DATE OF PROCEDURE: 10/13/2021 PERFORMING PHYSICIAN: Dr. Royal Gandara CONSENT: Patient LOCATION: EP Lab PROCEDURE PERFORMED: 1. Implantation of pacemaker ([employer]) 2. Ultrasound guided venous access INDICATIONS: [...] previously recommended a pacemaker, however, presented to [facility] with a ventricular rate in the 30s. He was subsequently transferred over to [facility] ED for a pacemaker [...] using modified seldinger technique using a 5 Albanian micro-puncture needle on one occasion and 0.35 wire was placed. Local infiltration of 1% Lidocaine was performed, and an incision was created in the left upper chest. Dissection was then performed using cautery down to the fascial plane above the muscle. A small pocket was created for the device. 6 Albanian Safesheaths were placed over the wire. An active fixation [employer] pacing lead was then delivered through [...] immediate procedural complications were noted. Device info: dINK Accolade MRI EL Model# L331 Serial# [id number] RV lead: Model# [id number] (59cms) Serial# [id number] Sensin.4mV Threshold: 0.6V@0.4ms Impedance: 598 Ohms POST [...] A/Royal Gandara MD Date Trans: 10/13/2021 10:46 A/oscar [id number] cc: Jason Silva M.D. [address] [place] [phone] Normal The [facility] FRESH FROZEN PLASMA 1 UNITon 10-13-2021 PRODUCT CODE 1 [id number] Normal The [facility] Comment on above: Order Comment: INR: 2.88 ,PTT: 36.7 at the time of order ;Indication: Other pacemaker placement Performed By: #### 8 2851 #### [facility] [address] [place] [address], [facility] PRODUCT STATUS 1 RE Normal [facility] Comment on above: Order Comment: INR: 2.88 ,PTT: 36.7 at the time of order ;Indication: Other pacemaker placement Result Comment: Resu lt changed by IF on 10/19/2021 01:00. The previous value was XM. Performed By: #### 8 7001 #### [facility] [address] [place] [address], [facility] UNIT ABO 1 O Normal [facility] Comment on above: Order Comment: INR: 2.88 ,PTT: 36.7 at the time of order ;Indication: Other pacemaker placement Performed By: #### 8 7001 #### [facility] [address] [place] [address], [facility] UNIT ID 1 [id number] Normal [facility] Comment on above: Order Comment: INR: 2.88 ,PTT: 36.7 at the time of order ;Indication: Other pacemaker placement Performed By: #### 8 7001 #### [facility] [address] [facility] [place] [address], [facility] UNIT RH 1 Negative Normal [facility] Comment on above: Order Comment: INR: 2.88 ,PTT: 36.7 at the time of order ;Indication: Other pacemaker placement Performed By: #### 8 7001 #### [facility] [address] [place] [address], [facility] LIVER BATTERYon 10-13-2021 Albumin [Mass/Vol] 4.0 g/dL Normal 3.5-5.7 [facility] Comment on above: Performed By: #### 0 0071, 91160, 74736, 93961 #### [facility] [address] [place] [address], [place] ALKALINE PHOSPH 137 IU/L High 34-104 [facility] Comment on above: Performed By: #### 0 0071, 44580, 63277, 61640 #### [facility] [address] [place] [address], [facility] ALT [Catalytic activity/Vol] 29 U/L Normal 7-52 The [facility] Comment on above: Performed By: #### 0 0071, 54550, 70727, 75223 #### [facility] [address] [place] [address], [place] AST [Catalytic activity/Vol] 22 U/L Normal 13-39 The [facility] Comment on above: Performed By: #### 0 0071, 24139, 38080, 42749 #### [facility] [address] [place] [address], [place] Bilirubin [Mass/Vol] 0.7 mg/dL Normal 0.3-1.0 The [facility] Comment on above: Performed By: #### 0 0071, 33476, 48006, 73274 #### [facility] [address] [place] [address], [place] Bilirubin.direct [Mass/Vol] 0.1 mg/dL Normal 0.0-0.2 The [facility] Comment on above: Performed By: #### 0 0071, 51567, 09339, 29490 #### [facility] [address] [place] [address], [place] Protein [Mass/Vol] 6.3 g/dL Normal 6.0-8.3 The [facility] Comment on above: Performed By: #### 0 0071, 63165, 91601, 03920 #### [facility] [address] [place] [address], [place] MAGNESIUM BLOODon 10-13-2021 Magnesium [Mass/Vol] 2.0 mg/dL Normal 1.9-2.7 The [facility] Comment on above: Performed By: #### 0 0071, 87235, 99063, 39118 #### [address] POC SARS COV2 ANTIGEN NEGATI VEon 10-13-2021 POC SARS COV2 ANTIGEN NEG Negative Normal NEGATIVE The [facility] Comment on above: Result Comment: Nega tive [...] antigen from SARS-CoV-2 in direct nasopharyngeal swab (CULINARY INSTRUCTOR) specimens from individuals who are suspected of [...] Accreditation. Performed By: #### 3 2044 #### [address] PORTABLE CHEST 1 VIEWon 09-26 PORTABLE CHEST 1 VIEW [facility] Department of Radiology [address] [place] [id number] Patient Name: RY LERNER : 1935 Sex: M Age: Race: White Pt. Location: [facility] Patient Status: E Ordered Date: 10/13/2021 [...] report. Electronically signed: Mark Aguilar. Transcribed by: [email or web address], User Resident: HUMBLE HERNANDEZ Electronically Signed by: MRAK AGUILAR @ 10/13/2021 05:55 AM I personally read this/these film(s) with this resident Normal The [facility] Comment on above: Order Comment: evalu ate for Infiltrates PROTHROMBIN TIMEon INR Coag (PPP) [Relative time] 2.88 {INR} High 0.91-1.16 The [facility] Comment on above: Result Comment: [facility] P RECOMMENDED INR FOR WARFARIN THERAPY -------- [...] CHEST 1995;108:231S-246S. Performed By: #### 5 6101, 60786 #### [facility] [address] [employer] PT Coag (PPP) [Time] 30.0 s High 12.3-14.8 [facility] Comment on above: Result Comment: ALL RESULTS MUST BE INTERPRETED WITH RESPECT TO BLOOD DRAWING ARTIFACT OR DILUTION ERROR OF ANTICOAGULANT AT THE TIME OF SAMPLING. Performed By: #### 5 6101, 71656 #### [facility] [address] [employer] TROPONIN-Ion 10-13-2021 Troponin I.cardiac [Mass/Vol] 0.05 ng/mL High 0.00-0.04 [facility] Comment on above: Result Comment: REFE RENCE RANGES: 0.00 - 0.04 ng/ml NORMAL 0.05 - 0.50 ng/ml INDETERMINATE > 0.50 ng/ml CONSISTENT WITH AN M.I. Performed By: #### 0 0071, 05713, 20524, 33857 #### [facility] [address] [employer] TYPE AND SCREENon 10-13-2021 ABO INTERPRETATION O Normal [facility] Comment on above: Performed By: #### 5 0103 #### [facility] [address] [place] [address], [facility] RH INTERPRETATION Positive Normal The [facility] Comment on above: Performed By: #### 5 0103 #### [facility] [place] [address], [facility] Vital Signs Date Time Vital Sign Value Performing Clinician Facility 06-02-2022 14:50-0400 Body height 182.88 cm Sonja Aden Other [facility] Other 06-02-2022 14:50-0400 Body mass index (BMI) [Ratio] 29.73 kg/m2 Sonja Aden Other [facility] Other 06-02-2022 14:50-0400 Body temperature 99.6 [degF] Sonja Aden Other [facility] Other 06-02-2022 14:50-0400 Body weight 99.43 kg Sonja Markie Other [facility] Other 06-02-2022 14:50-0400 Diastolic blood pressure 54 mm[Hg] Sonja Aden Other [facility] Other 06-02-2022 14:50-0400 Respiratory rate 18 /min Sonja Aden Other [facility] Other 06-02-2022 14:50-0400 SaO2% (BldA) [Mass fraction] 95 % Sonja Aden Other [facility] Other 06-02-2022 14:50-0400 Systolic blood pressure 118 mm[Hg] Sonja Markie Other [facility] Other Encounters Encounter Date Encounter Type Care Provider Facility Start: 09-03-2023 ambulatory Sheng Rey Facility: [facility] Start: 08-29-2023 End: 08-29-2023 ambulatory ADDIE HUSTON Not Available Start: 08-29-[address] Bamboo [address] [employer] ROOM ATTENDANT Work Phone: [facility] Start: 08-29-[address]amboo [address] [employer] ROOM ATTENDANT Work Phone: [facility] Start: 08-29-2023 End: 08-29-2023 Office outpatient new 30 minutes Addie Huston [employer] ATTENDANT Work Phone: [facility] Comment on above: Other atopic dermati tis (Primary Dx); Seborrheic keratosis Start: 08-28-2023 End: 08-29-2023 ambulatory John Nieves Facility:[facility] [place] [facility] Start: 07-03-2023 End: 07-04-2023 ambulatory Sheng L Yolis [facility] Start: 07-02-2023 End: 07-02-2023 ambulatory [facility] Start: 05-15-2023 End: 05-15-2023 ambulatory [facility] Start: 02-08-2023 End: 02-08-2023 ambulatory [facility] Start: 01-22-2023 End: 01-23-2023 ambulatory Sheng L Yolis Facility:[facility] Start: 01-22-2023 End: 01-22-2023 Lab Drop off Sheng L Yolis [facility] Start: 12-31-2022 End: 12-31-2022 ambulatory Ward Martinez Facility:[facility] Start: 12-25-2022 End: 12-26-[address] JASON SILVA . Facility: Start: 12-21-2022 End: 12-22-2022 ambulatory Sheng L Yolis Facility:[facility] [place] [facility] Start: 12-17-2022 End: 01-16-2023 ambulatory Sheng L Yolis Facility:[id number] Start: 12-12-2022 End: 12-14-2022 Evaluation and management of inpatient DR JASON SILVA . Facility: Start: 12-11-2022 End: 12-12-2022 ambulatory Sheng L Yolis Facility:[facility] Start: 12-11-2022 End: 12-11-2022 Lab Drop off Sheng L Yolis [facility] Start: 12-10-2022 End: 12-10-2022 ambulatory Ward Martinez Facility:[facility] Start: 11-27-2022 End: 11-27-2022 ambulatory [facility] Start: 11-26-2022 End: 12-26-2022 ambulatory SHAIKH Joe JUNIOR Facility:[facility] Start: 11-06-2022 End: 11-07-[address] JASON SILVA . Facility:[facility] Start: 11-06-2022 End: 11-06-2022 ambulatory [facility] Start: 10-29-2022 End: 11-23-2022 ambulatory SHAIKH Joe JUNIOR Facility:[facility] Start: 10-09-2022 ambulatory Sheng Yolis Facility:[facility] Start: 09-26-2022 End: 10-26-2022 ambulatory SHAIKH Joe JUNIOR Facility:[facility] Start: 08-29-2022 End: 09-26-2022 ambulatory SHAIKH Joe JUNIOR Facility:[facility] Start: 08-22-2022 End: 08-23-[address] JASON SILVA . Facility:[facility] Start: 08-16-2022 End: 08-17-[address] JASON SILVA . Facility:[facility] Start: 07-30-2022 End: 08-29-2022 ambulatory SHAIKH Joe JUNIOR Facility:[facility] Start: 07-24-2022 End: 07-25-2022 ambulatory [facility] Facility:[facility] Start: 07-24-2022 End: 07-24-2022 ambulatory [facility] Start: 06-28-2022 End: 07-29-2022 ambulatory HAYWARD H FAWWAD Facility:[facility] Start: 06-02-2022 End: 06-02-2022 ambulatory Sonja Aden Other [facility] [email or web address] Other Start: 06-02-2022 Office outpatient ne w 30 minutes Sonja Aden [facility] Start: 05-29-2022 End: 06-27-2022 ambulatory HAYWARD H FAWWAD Facility:[facility] Start: 04-29-2022 End: 05-28-2022 ambulatory HAYWARD H FAWWAD Facility:[facility] Start: 03-29-2022 End: 04-28-2022 ambulatory HAYWARD H FAWWAD Facility:[facility] Start: 03-20-2022 End: 03-20-2022 ambulatory UNKNOWN PROVIDER Facility:[facility] Start: 02-26-2022 End: 03-28-2022 ambulatory HAYWARD H FAWWAD Facility:[facility] Start: 02-15-2022 End: 02-16-2022 ambulatory KELLY MOUKARBEL Facility:[facility] Start: 01-26-2022 End: 02-23-2022 ambulatory HAYWARD H FAWWAD Facility:[facility] Start: 10-13-2021 End: 10-13-2021 ambulatory UNKNOWN PROVIDER Facility:[facility] Start: 10-13-2021 End: 10-13-2021 Emergency department patient visit PHYSICIAN UNKNOWN Facility:[facility] Procedures Date Procedure Procedure Detail Performing Clinician Start: 12-14-2022 Excision of Stomach, Via Natural or Artificial Opening Endoscopic, Diagnostic DR JASON SILVA . Start: 12-14-2022 Inspection of Lower Intestinal Tract, Via Natural or Artificial Opening Endoscopic DR JASON SILVA . Start: 12-12-2022 Transfusion of Nonautologous Red Blood Cells into Peripheral Vein, Percutaneous Approach DR JASON SILVA . Start: 12-12-2022 Colonoscopy Sheng cannon Start: 12-10-2022 Decompression of med lluvia nerve Sheng Rey Comment on above: Left Start: 08-22-[address] JASON CRUZ . Comment on above: Performed By: #### B MP #### [facility] [address] [place] [address] Dr. Rashmi Nolan Start: 10-13-2021 Antibody screen PHYSICI AN UNKNOWN Comment on above: Performed By: #### 5 0103 #### [facility] [address] Start: 09-26-2021 Cardiac pacemaker, noam rdzice (physical object) Sheng Rey Start: 02-26-2011 Colonoscopy Sheng Ferro b Start: 07-29-1995 TURP syndrome (disorder) Sheng Yolis Start: 07-29-1993 Herniated structure (morphologic abnormality) Sheng Molinaab Tonsillectomy and adenoidectomy Sheng Yolis Plan of Treatment Date Care Activity Detail Author Start: 08-29-2023 End: 08-29-2023 Patient encounter procedure 08/29/2023 1:00 PM EST Office Visit [facility] [address] [place] [id number] Addie Huston, [employer]LIN[employer] ROOM ATTENDANT [address] [place] [address] Arrived [facility] Comment on above: Arrived Immunizations Immunization Date Immunization Notes Care Provider Fa cili 05-02-2022 influenza virus vaccine, unspecified formulation Sheng Rey [facility] 05-02-2022 Seasonal trivalent influenza vaccine, adjuvanted, preservative free Addie Huston [employer] ROOM ATTENDANT Work Phone: [facility] 09-17-2020 SARS-CoV-2 (COVID-19 ) mRNA BNT-162b2 vax Sheng Yolis [facility] Comment on above: Result Comment: 2022: [id number] 08-27-2020 SARS-CoV-2 (COVID-19 ) mRNA BNT-162b2 vax Sheng Yolis [facility] Comment on above: Result Comment: 2022: [id number] 06-13-2020 influenza virus vaccine, unspecified formulation Sehng Yolis [facility] 06-01-2019 influenza virus vaccine, unspecified formulation Sheng Yolis [facility] 04-14-2018 influenza virus vaccine, unspecified formulation Sheng Yolis [facility] 04-22-2017 influenza virus vaccine, unspecified formulation Sheng Yolis [facility] 05-01-2016 influenza virus vaccine, unspecified formulation Sheng Yolis [facility] 06-02-2015 influenza virus vaccine, unspecified formulation Sheng Yolis [facility] 05-31-2014 influenza virus vaccine, unspecified formulation Sheng Yolis [facility] 06-02-2013 influenza virus vaccine, unspecified formulation Sheng Yolis [facility] 05-29-2005 influenza, whole Sheng Yolis [facility] Payers Date Payer Category Payer Unknown [facility] 1999 Medicare MEDICARE MEDICAR E PART B [id number] 1999-Present [address] [address] [place] [address] Medicare [id number] 1959 Medicare [id number] 1935 Unknown [id number] 1934 Unknown [id number] 2.16.840.1.956736.3.579.2.732 1934 Unknown [id number] 2.16.840.1.456623.3.579.2.732 1934 Unknown [id number] 2.16.840.1.453289.3.579.2.718 1934 Unknown [id number] 2.16.840.1.593124.3.579.2.718 1934 Unknown [id number] 2.16.840.1.619978.3.579.2.593 1934 Unknown [id number] 2.16.840.1.452818.3.579.2.593 1934 Unknown [id number] 2.840.1.142896.3.579.2.593 1934 Unknown [id number] 2..840.1.656234.3.579.2.593 1934 Unknown [id number] 2.16.840.1.154223.3.579.2.593 1934 Unknown [id number] 2..840.1.075390.3.579.2.593 1934 Unknown [id number] 2.16.840.1.753846.3.579.2.593 1934 Unknown [id number] 2.16.840.1.566561.3.579.2.593 1934 Unknown [id number] 2.16.840.1.644851.3.579.2.593 1934 Unknown [id number] 2.16.840.1.406578.3.579.2.593 1934 Unknown [id number] 2.16.840.1.400972.3.579.2.593 1934 Unknown [id number] [id number]3 1934 Unknown [id number] 2.16.840.1.892996.3.579.2.593 1934 Unknown [id number] 2.16.840.1.971203.3.579.2.593 1934 Unknown [id number] 2.16.840.1.960911.3.579.2.593 1934 Unknown [id number] 2.16.840.1.435971.3.579.2.593 1934 Unknown [id number] 2.16840.1.598391.3.579.2.593 1934 Unknown [id number] 2.16840.1.837413.3.579.2.593 1934 Unknown [id number] 2.840.1.067054.3.579.2.1259 1934 Unknown [id number] 2.16840.1.890193.3.579.2.727 1934 Unknown [id number] 2.840.1.585562.3.579.2.727 1934 Unknown [id number] 2.840.1.895285.3.579.2.727 1934 Unknown [id number] 2.840.1.847125.3.579.2.727 1934 Unknown [id number] 2.16840.1.416438.3.579.2.727 1934 Unknown [id number] 2.16840.1.064989.3.579.2.727 1934 Unknown [id number] 2.16840.1.659127.3.579.2.727 1934 Unknown [id number] 2.16840.1.787837.3.579.2.727 Social History Date Type Detail Facility Unknown if ever smoked [employer] Other Start: 02-05-2023 End: 08-29-2023 Sex Assigned At [facility] Start: 12-11-2022 End: 12-13-2022 Tobacco smoking status Never smoked tobacco (finding) [facility] Tobacco smoking status Never [facility] Comment on above: Quit in 2002 Start: 01-22-2023 Tobacco smoking status Ex-smoker (finding) [facility] Comment on above: Quit in 2002 Start: 12-13-2022 Tobacco use and exposure Smokeless tobacco non-user [facility] Start: 02-05-2023 End: 08-29-2023 Alcohol intake Current drinker of alcohol (finding) [facility] Start: 02-05-2023 End: 08-29-2023 History of Social function [facility] Start: 1935 Sex Assigned At Not on file N [facility] Clinical Notes 10-13-2021 to 08-29-2023 Addie Huston, [employer]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 with [employer] on 10/13/2021 and paced 65% Echocardiogram [...] stress test about 12 years ago in [place], and was in hospital with noted a fib currently on coumadin anticoagulation. Echocardiogram performed on 11/30/2020 at [facility] shows an ejection fraction of 55% [...] mg DR lindsay (more content not included)... [facility] 05-15-2023 Note Patient here for 3 m [...] All other systems reviewed and are negative. [facility] 02-18-2023 Note Stable -ct medications [facility] 02-18-2023 Note [id number]: at [facility] 3 for age and htn -restart warfarin, will follow coumadin clinic here at [facility] -is to report any concerns for bleeding -follow up in 2 months to discuss how he is doing -patient prefers to not consider watchmen if he does not have to [facility] 02-08-2023 Note Patient here for [facility] for GI bleed. He was discharged on 12/14 and coumadin was put on hold. Denies chest pain, SOB, and palpitations. Lost his recently. Review of Systems Musculoskeletal: Positive for arthritis, joint pain and muscle cramps. Neurological: Positive for numbness. All other systems reviewed and are negative. [facility] 02-08-2023 Note [place] [facility] Consul t Note Reason for visit: Afib. S/p PPM HPI: Ry Lerner is a 87 y.o. 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 with [employer] on 10/13/2021 and paced 65% Echocardiogram [...] stress test about 12 years ago in [place], and was in hospital with noted a fib currently on coumadin anticoagulation. Echocardiogram performed on 11/30/2020 at [facility] shows an ejection fraction of 55% [...] No current facility (more content not included)... [facility] 01-01-2023 Note [id number] 01-01-2023 Note [id number]#[id number] 12-31-2022 Note [facility] Clinical Discharge Summary PERSON INFORMATION Name RY LERNER Age 87 Years 1935 Sex MALE Language Egyptian PCP Ezequiel CHAMBERS, John Rodríguez Marital Status Med Service Ambulatory Surgery Acct# Arrival 12/31/2022 08:09:06 Visit Reason SURGERY - RIGHT CARPAL TUNNEL RELEASE Acuity LOS 039 21:33 Address: [address] [place] [id number] Comment: PROVIDER INFORMATION VITALS INFORMATION Vital Sign [...] release capsule) 1 cap(s) Oral every day. Gibbon's wort (Gibbon's wort oral tablet) 1 tab(s) Oral 2 [...] release capsule) 1 cap(s) Oral every day. Gibbon's wort (Lindsey's wort oral tablet) 1 tab(s) [...] release capsule) 1 cap(s) Oral every day. Gibbon's wort (Gibbon's wort oral tablet) 1 tab(s) Oral 2 [...] release capsule) 1 cap(s) Oral every day. Gibbon's wort (Gibbon's wort oral tablet) 1 tab(s) Oral 2 [...] REASON INCOMPLETE INFORMATION PATIENT EDUCATION INFORMATION Instructions: [place]- Post Op Carpal Tunnel (CUSTOM) Follow up: With: Address: When: MARJ PEREZ [address] [place] [address], [address] [place] [id number] [facility] (1) 01/09/2023 11:00 AM DIAGNOSIS Carpal tunnel syndrome, right Comment: PHYS DOC NOTES [facility] 12-31-2022 Note Procedure: Decompres mary [...] on: 12/31/2022 09:43 EDT] Ward Martinez DO [facility] 12-25-2022 Note [id number] [facility] 12-12-2022 Note [id number] [facility] 12-10-2022 Note procedure: Decompres mary [...] on: 12/10/2022 15:46 EDT] Ward Martinez DO [facility] 12-10-2022 Note [facility] Clinical Discharge Summary PERSON INFORMATION Name RY LERNER Age 87 Years 1935 Sex MALE Language Egyptian PCP Ezequiel CHAMBERS, John Rodríguez Marital Status [facility] Service Ambulatory Surgery Acct# Arrival 12/10/2022 13:13:28 Visit Reason SURGERY - LEFT CARPAL TUNNEL RELEASE Acuity LOS 019 02:57 Address: [address] [place] [address] Comment: PROVIDER INFORMATION VITALS INFORMATION Vital Sign [...] Follow up: With: Address: When: Ward Martinez [address] [place] [address], [address] [place] [address] Business (1) 12/18/2022 1:30 PM Type Location Start [facility] Surgery ([facility] Main OR 12/31/2022 7:30 AM 12/31/2022 8:00 AM Confirmed DIAGNOSIS Carpal tunnel syndrome of left wrist Comment: PHYS DOC NOTES [facility] 11-06-2022 Note Cardiology Clinic No te Subjective Ry Lerner is a 87 y.o. 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 Echocardiogram performed on 11/30/2020 at [facility] shows an ejection fraction of 55% [...] Fib and underwent a single-chamber pacemaker. with [employer] on 10/13/2021 and paced 65% Echocardiogram [...] LV systolic funct (more content not included)... [facility] 11-06-2022 Note Patient here for 4 m [...] All other systems reviewed and are negative. [facility] 07-24-2022 Note [facility] Consul [facility] Note Reason for visit: [...] Fib and underwent a single-chamber pacemaker. with [employer] on 10/13/2021 and paced 65% Echocardiogram [...] stress test about 12 years ago in [place], and was in hospital with noted a fib currently on coumadin anticoagulation. Echocardiogram performed on 11/30/2020 at [facility] shows an ejection fraction of 55% [...] 20 years quit 2006, Admits whiskey- most , denied illicit drug use. PMH: No past [...] Murmur: not hea (more content not included)... [facility] 07-24-2022 Note Review of Systems Cardiovascular: Positive [...] the day. Also has questions about medications [facility] 06-02-2022 Evaluation note Encounter Date Diagnosis Assessment [...] treatment plan. Patient left in stable condition [employer] Other [id number] History general Narrative - Reported* Type Description Date Medical History HYPERTENSION Medical History STROKE Medical History HEAD INJURY Surgical History PACEMAKER 10/13/2021 Surgical History HERNIA X 2 Surgical History TONSILECTOMY Hospitalization History SEE ABOVE [employer] Other Evaluation + Plan note No data available for this section [facility] Future Appointments Appointment Date:08/27/2023 09:30:00 AM Scheduled Provider: Location:[facility] [place] Appointment Type: Medicare Wellness Subsequent [facility] Diagnosis Other atopic dermatitis- Primary Seborrheic keratosis [facility] No data available for this section [facility] No data available for this section [facility] Summary Purpose Family History No Family History [...] and content) DATE CREATED AUTHOR 01/26/2022 [facility] DATE CREATED AUTHOR AUTHOR'S ORGANIZ ATION 04/25/2022 [facility] DATE CREATED AUTHOR AUTHOR'S ORGANIZ ATION 01/06/2023 [facility] DATE CREATED AUTHOR AUTHOR'S ORGANIZ ATION 01/06/2023 [facility] DATE CREATED AUTHOR AUTHOR'S ORGANIZ ATION 07/04/2023 [facility] DATE CREATED AUTHOR AUTHOR'S ORGANIZ ATION 08/31/2023 [facility] EPIC DATE CREATED AUTHOR AUTHOR'S ORGANIZ ATION 08/31/2023 [facility] REASON FOR VISIT (unrecogniz ed section and content) Reason Comments Rash Specialty Diagnoses / Procedures Referred By Contac t Referred To Contact Dermatology Diagnoses eczema / skin changes texture changes Sheng Rey MD [address] [phone] Rebecca Conley MD [address] [place] [phone] Referral ID Status Reason Start Date Expiration Date Visits Re quested Visits Authorized [id number] Closed 07/05/2023 01/01/2024 1 1 Patient Care team informatio n (unrecognized section and content) Superintendent Terminal Relationship Specialty Start Date End Date Jason Silva MD [address] [place] [address] PCP - General Family Medicine 12/10/22 Superintendent Terminal Relationship Specialty Start Date End Date Jason Silva MD [address] [place] [address] PCP - General Family Medicine 12/10/22 FOR [...] BE BASED ON THE PRIMARY CLINICAL RECORDS. [employer] provides no warranty or guarantee of the accuracy or completeness of information in this document.
--- NOTE | 2023-09-02 08:33 | CT_ITS ---
The [address] [address] Patient Name: THIERRY LERNER MRN: [id number] date: 1935 Sex: M Assigned Patient Location: CT Current Patient Location: CT Accession/Order Number: [id number] Exam Date: 09/02/2023 08:55 Report Date: 09/02/2023 09:48 At the request of: SHENG LAGOS Procedure: CT shoulder RT wo con EXAMINATION: CT shoulder RT wo con HISTORY: Right Shoulder Pain , Abnormal xray COMPARISON: CT chest 08/30/2023, plain x-ray 08/28/2023 TECHNIQUE: Multi-planar CT images were created without IV contrast. Dose reduction techniques were achieved by using automated exposure control and/or adjustment of mA and/or kV according to patient size and/or use of iterative reconstruction technique. FINDINGS: BONES: No acute fracture or dislocation. No focal lytic or sclerotic changes are observed. There is mild to moderate osteoarthropathy of the acromioclavicular joint with up to 5 mm subacromial spurring narrowing the subacromial space . Moderate to severe glenohumeral osteoarthropathy with marginal osteophyte formation and mild bony remodeling. Remodeling of the acromial process from high riding humeral head consistent with a chronic rotator cuff tear/injury SOFT TISSUES: Negative. No visible soft tissue swelling. EFFUSION: None visible. 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
== END 2023-09-02 08:28 | disposition home or self-care (01) ==
LOC: CT 08:28
PROVIDERS: PCP Nurse Practitioner; Visit Provider Nurse Practitioner
DX: M25.511 Pain in right shoulder (principal); M19.011 Primary osteoarthritis, right shoulder
CPT/HCPCS: 73200

== ENCOUNTER 2023-09-06 07:01 | Outpatient (OUT) | payer MEDICARE, SELFPAY ==
--- OUTSIDE RECORDS SUMMARY | 2023-09-06 07:03 | XMS_ITS | CCD ---
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 HGT2hPZ3jI3aaDrqcioa bGVmdDsgdmVydGljYWwt XFmaV473PDPxsAmxTcDb nYAQkQBdPKC5OL07 NB21M4OePsnctMMyyNO+ PHRhYmxlIHdpZHRoPScx CBDnZbBekLcqFZ5bPg9r ZGVyLWNvbGxhcHNl IfBvh4kvFFMxAZhdAV6w qHdrE5EdjJT8LSJym5h2 Ql67E65fC0NssOA+PGNv gAN2jYU1mR8nYvMf YwM3YAupS672SvWlgMZg Gcwho1zwd8npwRx0RwZe WHWffsEbaPexNAQ1h2Vy So42E27xIWguRXGn JGMwJZNbXAPzfFnrkm4z wI3oQu0+CSUubGV9gIE8 lF0iIuYqCyQ5PMmwR297 DrVjpFZnZgywV14a Y4VkzZT+VXRgCxy9SUOg sPxnRP5nkHWeLVsmOu3c EGR8DsNzLaToBOhpT3Cn ZGRpbmctcmlnaHQ6 CGBxGNKmjM80Fq1wfFii Hk5mNBSiPNY0MBQgxDSq Q7HzgX9kUtKnGBQwDEVg Y6UgnYVbXYbeF366 TEhaXjL1NLVyeiXzR4Na HTNwdXfyHnC6f2W3Uz5Z zQlnwPRnFD8cOsGgPWp4 E2VvUxt2VUQriMjv EZ7voJSyUIiwTz4ipChn uVxcPS1lJVSclskul316 FkAtc8tuQPItzPIvSXaq LXG8W48mh0Q0IYDh JEZwWHB3yMR6mS4iwZbg bjogbGVmdDsgdmVydGlj XBsoFHyuE283ZLRbtQde FsBLAkw5A7WoBjp0 ZBVohZfpSF5uuZFsKDac Kz5jbHnikMyoOQ8uODTq okxaf821YzTwt1tnPVKg kMFkKVfaVMA9P71l e8X0VSKlKOHlQTA8sGB2 wY9mdTffjyyjtJPfbPpe uxIjxGizHWheHAgyW966 VCAmoJwdTa6VXiz9 H2IgEbg5BXTfvPlbFT3t wEByNGhgZc6ycRiooOot HH6eQWOzsawcc145LdNy t2gsEFWgaRXhQCjw AQT8U15nf7K5AAMrLAJw QGR3aOZ7rW5riLndhkib bGVmdDsgdmVydGljYWwt VKhxO853GHJtdHkg PlBheWVyOjwvdGQ+PC90 sv46Y4HqTcayPdm0EJMm SFL0nOX1rZ6dOCRgVWln k1J1tWR5T7PjpjLz ci1 (more content not included)... [facility] Consent Formson 01-01-2023 Consent Forms [id number] #1.00OTGTIFF [facility] Inpatient Patient Summaryon 12-31-2022 [place] [address] Patient Discharge Instructions Name: RY LERNER : 1935 Patient Address: [address] [place] [address] Primary Care Provider: Name: oJhn Nieves MD After you are discharged if you find you have any questions, please, call [phone] ext [phone] to speak to a nurse. Discharge Diagnosis: Carpal tunnel syndrome, right Prescription Information: If you have been given a prescription for narcotics, seek immediate medical attention if you have any difficulty breathing or any sudden status changes such as confusion and sleepiness. If you or anyone you know is experiencing suicidal thoughts, mental health, alcohol and/or drug addiction problems; contact the [facility] 18/02 Crisis Hotline -Text 4HOPE to 736381. If you received any narcotics, sedation, or [...] business decisions or sign any legal documents [facility] would like to thank you for allowing us to assist you with your healthcare needs. The following includes patient education materials and information regarding your injury/illness. RY LERNER has been given the following list of follow-up instructions, prescriptions, and patient education materials: Follow-up Instructions With: Address: When: MARJ CHRIS [address] [place] [address], [address] [place], [place] [id number] Business (1) 01/09/2023 11:00 AM Medications During [...] 1 cap(s) Oral every day. Lindsey's wort (Rockton's wort oral tablet) 1 tab(s) Oral 2 [...] release capsule) 1 cap(s) Oral every day. Rockton's wort (Lindsey's wort oral tablet) 1 tab(s) [...] 3. DO NOT lift heavy objects or installer technician forcefully with your hand 4. Change your [...] or concerns, please call the office at [phone] 7. Follow up as scheduled Viruses or Bacteria What?s got you sick? Antibiotics only treat bacterial infections. Viral illnesses cannot be treated with antibiotics. When an antibiotic is not prescribed, ask your healthcare professional for tips on how to relieve symptoms and feel better. Usual Cause Illness Viruses Bacteria Antibiotic Neede (more content not included)... Normal [facility] Lab Reportson 12-31-2022 Lab Reports [id number] #1.00CD:127 Normal [facility] MAGR Intraoperative Recordon 12-31-2022 MAGR Intraoperative Record MAGR Intra-Op Record Summary Primary Physician: Ward Martinez DO Finalized Date/Time: 12/31/22 11:56:55 Pt. Name: RY LERNER PERRY Barton./Sex: 1935 MALE Med Rec #: [id number] Physician: Ward Martinez DO Financial #: [id number] Pt. Type: D Room/Bed: / Admit/Disch: 12/31/22 [...] RN, DO Role Performed Surgeon - Primary Pail Tester Pail Tester Time In 12/31/22 09:15:00 12/31/22 09:15:00 12/31/22 09:15:00 Time Out 12/31/22 09:37:00 12/31/22 09:46:00 12/31/22 09:46:00 Procedure Carpal Tunnel Carpal Tunnel Carpal Tunnel Release(Right) Release(Right) Release(Right) Last Modified By: [place] PERSAUD, Chelita Borjas RN, Chelita Mc RN 12/31/22 09:49:26 12/31/22 09:49:26 12/31/22 09:49:26 Entry 4 Entry 5 Case Attendee Lavern Vasques Kelly CST DREDGE PIPEMAN Role Performed Merchandise Presentation Associate Scrub Personnel Time In 12/31/22 09:15:00 12/31/22 09:15:00 Time Out 12/31/22 09:46:00 12/31/22 09:46:00 Procedure Carpal Tunnel Carpal Tunnel Release(Right) Release(Right) Last Modified By: BristolChelita umir RN, RN, Kathleen A 12/31/22 09:49:26 12/31/22 [...] By Chelita Borjas RN Scrub 10% Povidone-Iodine Spur Prep Area (Im.270) Elbow and forearm, Prep Area Details Right Hand, Wrist Skin Prep Agent Dry Yes Without Pooling Hair Removal Syntegrity Hair Removal Methods No hair removal performed Outcome Met (O.100) Yes Last Modified By: Chelita Borjas RN 12/31/22 11:55:12 Pos (more content not included)... [facility]2022 [facility] Preoperative Record MAGR Pre-Op Record Summary Primary Physician: Ward Martinez DO Finalized Date/Time: 12/31/22 09:13:14 Pt. Name: RY LERNER PERRY Barton./Sex: 1935 MALE Med Rec #: [id number] Physician: Ward Martinez DO Financial #: [id number] Pt. Type: D Room/Bed: / Admit/Disch: 12/31/22 [...] Signed By: Vicky Ponce RN 12/31/22 09:13 Normal [facility] Patient Handouton 12-31-[address] 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 Keep your hand elevated above your elbow for the first 24 hours after surgery 2. Wiggle your fingers frequently while awake 3. DO NOT lift heavy objects or installer technician forcefully with your hand 4. Change your [...] or concerns, please call the office at [phone] 7. Follow up as scheduled [facility] Physician Referralon 023 Physician Referral [id number] 1#1.00CD:127 Normal [facility] Living Will/POAon 12-26-2022 Living Will/POA [id number] #1.00CD:127 Normal [facility] CBC AUTO DIFFon 12-25-2022 BASO # 0.0 103/ul Normal 0.0-0.1 [facility] Comment on above: Performed By: #### C BC #### [facility] [address] [address] [address] Rashmi Nolan Basophils/100 WBC (Bld) 0.6 % Normal 0.2-2.0 [facility] Comment on above: Performed By: #### C BC #### [facility] [address] [address] [address] Rashmi Nolan EO # 0.2 103/ul Normal 0.0-0.7 [facility] Comment on above: Performed By: #### C BC #### [facility] [address] [address] [address] Rashmi Nolan Eosinophils/100 WBC (Bld) 6.9 % Normal 0.9-7.0 [facility] Comment on above: Performed By: #### C BC #### [facility] [address] [address] [address] Rashmi Nolan Erythrocyte distribution width (RBC) [Ratio] 14.0 % Normal 11.0-15.0 [facility] Comment on above: Performed By: #### C BC #### [facility] [address] [place] [address] Dr. Rashmi Nolan Hematocrit (Bld) [Volume fraction] 29.8 % Critically low 42.0-54.0 [facility] Comment on above: Performed By: #### C BC #### [facility] [address] [place] [address] Dr. Rashmi Nolan Hemoglobin (Bld) [Mass/Vol] 9.8 g/dL Critically low 14.0-18.0 [facility] Comment on above: Performed By: #### C BC #### [facility] [address] [place] [address] Dr. Rashmi Nolan IG # 0.02 10e3/ul Normal 0.00-0.03 [facility] Comment on above: Performed By: #### C BC #### [facility] [address] [address] [address] Rashmi Nolan IG % 0.6 % Critically high 0.0-0.5 [facility] Comment on above: Performed By: #### C BC #### [facility] [address] [place] [address] Dr. Rashmi Nolan LYMPH # 0.8 103/ul Critically low 1.2-3.8 [facility] Comment on above: Performed By: #### C BC #### [facility] [address] [place] [address] Dr. Rashmi Nolan Lymphocytes/100 WBC (Bld) 25.1 % Normal 20.5-60.0 [facility] Comment on above: Performed By: #### C BC #### [facility] [address] [place] [address] Dr. Rashmi Nolan MANUAL DIFF REQ NO Normal [facility] Comment on above: Performed By: #### C BC #### [facility] [address] [address] [address] Rashmi Nolan MCH (RBC) [Entitic mass] 33.0 pg Normal 25.9-34.0 [facility] Comment on above: Performed By: #### C BC #### [facility] [address] [place] [address] Dr. Rashmi Nolan MCHC (RBC) [Mass/Vol] 32.9 g/dL Normal 29.9-35.2 [facility] Comment on above: Performed By: #### C BC #### [facility] [address] [place] [address] Dr. Rashmi Nolan MCV (RBC) [Entitic vol] 100.3 fL Critically high 80.0-94.0 [facility] Comment on above: Performed By: #### C BC #### [facility] [address] [place] [address] Dr. Rashmi Nolan MONO # 0.3 103/ul Normal 0.3-0.8 [facility] Comment on above: Performed By: #### C BC #### [facility] [address] [place] [address] Dr. Rashmi Nolan Monocytes/100 WBC (Bld) 9.6 % Normal 1.7-12.0 [facility] Comment on above: Performed By: #### C BC #### [facility] [address] [place] [address] Dr. Rashmi Nolan NEUT # 1.9 103/ul Normal 1.4-6.5 [facility] Comment on above: Performed By: #### C BC #### [facility] [address] [address] [address] Rashmi Nolan Neutrophils/100 WBC (Bld) 57.2 % Normal 43.0-75.0 [facility] Comment on above: Performed By: #### C BC #### [facility] [address] [address] [address] Rashmi Nolan Platelet mean volume (Bld) [Entitic vol] 10.5 fL Normal 9.5-13.5 [facility] Comment on above: Performed By: #### C BC #### [facility] [address] [address] [address] Rashmi Nolan PLT 129 103/ul Critically low 150-450 [facility] Comment on above: Performed By: #### C BC #### [facility] [address] [place] [address] Dr. Rashmi Nolan RBC 2.97 106/ul Critically low 4.70-6.10 [facility] Comment on above: Performed By: #### C BC #### [facility] [address] [address] [address] Rashmi Nolan WBC 3.3 103/ul Critically low 4.0-11.0 [facility] Comment on above: Performed By: #### C BC #### [facility] [address] [place] [address] Dr. Rashmi Nolan PROTIMEon 12-25-2022 INR Coag (PPP) [Relative time] 1.03 {INR} Normal [facility] Comment on above: Performed By: #### B MP #### [facility] [address] [place] [address] Dr. Rashmi Nolan INR GUIDELINES SEE BELOW Normal [facility] Comment on above: Result Comment: ENOC RED INR: 2.0 - 3.0 CONDITIONS NOT LISTED BELOW 2.5 - 3.5 FOR PROSTHETIC HEART VALVE REPLACEMENT 2.5 - 3.5 RECURRENT THROMBOSIS Performed By: #### B MP #### [facility] [address] [place] [address] Dr. Rashmi Nolan PT Coag (PPP) [Time] 10.9 s Normal 9.0-11.6 [facility] Comment on above: Performed By: #### B MP #### [facility] [id number] Rashmi Nolan PTTon 12-25-2022 aPTT Coag (Bld) [Time] 25.6 s Normal 22.3-36.2 [facility] Comment on above: Performed By: #### C BC #### [facility] [address] [address] [address] Rashmi Nolan Ambulatory Visit Summaryon 0 [...] numbers. This can be done either in Pryde[place]ig ([place] or metric measurements. Note that charts and online BMI calculators are available to help you find your BMI quickly and easily without having to do these calculations yourself. To calculate your BMI in [place] measurements: 1. Measure your weight in [...] fat. ? (more content not included)... Normal [facility] Family Medicine Office/Clini c Noteon 12-21-2022 Family Medicine Office/Clinic Note Chief Complaint Hospital stay follow up HPI Staff Presents for hospital follow up [place] 12/11-12/14 bleeding ulcer/bloody stools Had Upper and lower scope done. found diverticulosis and bleeding ulcer. Questions/concerns: eczema, why needs to stay on Lasix, why taken off warfarin when to start back up. History of Present Illness pt presents today fro follow up for admission to [facility] for GI bleed Review of Systems PHQ [...] today for follow up from admission to [facility] for GI bleed. he received 2 units of blood. and had egd and colonsocopy that show a gastic ulcer and diverticulosis. he was cleared by GI yesterday. he remains off of his warfrin for now. Dr. Silva spoke to Dr. Black ([facility] dry chain operator) and he was ok with keeping [...] Recorded influenza, whole 05/29/2005 Recorded Normal [facility] Comment on above: Result Comment: Elec trolimaally Signed By: Sheng Simms.viviane\Date and Time Signed: 12/21/22 15:03 EDT Patient Educationon 12-22-19 Patient Education Nutrition BMI for Adults What [...] numbers. This can be done either in Pry[place] ([place] or metric measurements. Note that charts and online BMI calculators are available to help you find your BMI quickly and easily without having to do these calculations yourself. To calculate your BMI in [place] ([place] measurements: 1. Measure your weight in [...] for Disease Control and Prevention: www.cdc.gov ? [place] Heart [employer]: www.heart.org ? National Heart, Lung, and Blood [place]: www.nhlbi.nih.gov Summary ? Body mass index (BMI) is a number that is calculated from a person's weight and height. ? BMI may help estimate how much of a person's weight is composed of fat. BMI can help identify those who may be at higher risk for certain medical problems. ? BMI can be measured using Prydeinig measurements or metric measurements. ? BMI charts are used to identify whether you are underweight, normal weight, overweight, or obese. This information is not intended to replace advice given to you by your health care provider. Make sure you discuss any questions you have with your health care provider. Document Revised: 04/06/2020 Document Reviewed: 02/12/2020 This Week In Patient Education ? [address] [facility] Coding Summaryon 12-19-2022 Coding Summary HTMLBase 64 VtqyepkwMQg9bZr+PGhl YWQ+KF1NLVVuW02ogNDi pD5tR5IAAOiHGhmuTICQ YNyKZtAltgRvMC9raRWc ZXJu IC8+HW6iTLDvScxgjHMj f2G0oQA2W07rcg4sXHxk bIE9QJOdUpGurtkxa2lv fYk6QRpgUesxOiRr EYKxdV33TCW9mC87Fq23 sBSrnLFfv2ewdNw8WaPw NHKwMOD7rJyxLDjrv6Ue WPZxC14drBPvd0P4 IGNvbGxhcHNlOyBlbXB0 lD6xYDjnrtfzb6tfxqcw Odx8bw22mGTct0P7eGO5 U5ZdwgD1XLFxnMNa QfpmvSLEgH3msyqdm9dz hnbdIdPtIMCySPp9DIj5 FHEwiUogOpCxVJ73TPE8 TCFaymFkO5WgCSMh yYklMqS8z4P4Xx8VG0EB XmzjZ6VHSPFTHWqryNW+ CB70la54U8NcPpwbIgy2 CMTdYVU9pTH4oJ1w ECKpYTodl8O1yFF7W5Gj ctIofo0jb2lzRXQeUXve C31fgXIqx7S8MOXzdTS3 TSJkuYhgWhExlL59 Oyc+OCXtvQmtq7LgGrlx v7hnw1yweQc3ClpsXTZt lcQhqBefAQB2u8DuLm1a OLNraYB5bMN9aX1n WyAkJgB6QCmsJ086YqFa xURkCbcmV81yR2NmnXG+ IUWnIta0RQFzmYkwRA8b K9DzUXWeehmouJPn jUzyRD3bNFKskcgxNMLk pD7xWHUzP5r0AuDrLqZ3 KGhgY0HxKUPqspqfWz44 rS0qIlNuNzN3DFzc F0BxaiQ6UUBosRLxATfq OIL2M12qi4A0ORWtIFNc RIZ0aGJ0cN6lgPlvqdsp bGVmdDsgdmVydGlj DCrbQJslI660DFViqPbh PkNvZGluZyBEYXRlOiAg MDUvMjQvMjAyMzwvdGQ+ IVEqDWY2oVmrKQXf wTCiXWcdAz5tlYktqCqp AM1hWKMxyyppODHmgX3x FZEjjPTgjRfqTO5rUILi bzxom039CwKvYRK1 YPHqvRBzM0TdfM6nFoEa CKRqJCQjP8OasXHiNOsj X306UXjzVrA1SXLolpQk R5SrZDHcvIdrDfG5 b4D4Ex9Yp2TemrpzB9Tu oSBvAoNiXkttQYb2A9Nm PjwvdHI+YM43AWPaVH10 LKu0QFJ0gFxcVTpa DRUvF3GtpT4eKjImYEBf ZGRkOyc+PHRhYmxlIHdp ZHRoPScxMDAlJyBzdHls MY2fIj5xCANnREDw cKltaTYaUnVqq6geFMLr WMvmJS2pjXrcG8GihUK5 RJVvb6o2Sd47N83qH8Xz dXA+LBXokFH2tOR6 wL0sCiXhWdZ4MNorZ117 GfVpiDFxRwodn6ayw9it pBu6PdL9KJDtbpWasAxu QSJ1o9MbTf99H54t IHdpZHRoPSIxNSUiIHZh iLtkux1wkR5pSo3+PGNv pDM9jUM3eL0nQwHyZtE4 TAbbC390SgWjvRXp Qskcs6zsw1gihVu3EjUr CCGugiTczZabMJH5l0Pc Ak55Z2BghZqaz2WxTzj9 np93oMRjl3U6aZP8 R0OuOKFkxytmgZDxeAig XF9tIWMgolmaCOLjmL5q FHZwU2u8TiOvQuB7KQhb X3CbtlN1HWVkdZPn BXSicKYOqK1xcgyix5gc eukvZaXwXOMjPVi6AJm6 RERlrHibOmUiVGH2LfW1 IPO0fAZxjS4asMem neqqmO4zMhk+DKL6cLUh wAEEZY5eSkfsbVH+PHRk VKI4zCqrULhjEJKdeC5s FXGeE5s1LzVpIgR6 YVfnJ6XgoqR5LOOsbRYb RHDssDMEfH9eelkta2xe mpfdJtPzYABwAKk1JLv8 LWFsaWduOiBsZWZ0 KxM9BHH0pXVzkJ7frPaf dxxlpQ7tJkx+QmlydGgg LNK6YTp3E6LgGxl2MTNe cSprDU0miHWeUTte Tn7uuEvudBrvZS5aPZVh flxeq389EhDfq6uxSHZa qROuRMteGUT0U91px6V0 KZFkAQSaSPZ1lRH3 zC7biBbmcvzqvPJepYll tuIoqEqjSSdyFUwdG522 UOWkhRruNaOoCKg7Y8Nr Ceb7RWVjnCayHO8f eRBrWObwIn7vwNqmxCyr SK3oHWJevtsxp677KlZp o6jrZBEfiKIbVUyhMEB9 Q74en9K4FXKeNMMr DDY6iPJ2dL0wkUtmagda bGVmdDsgdmVydGljYWwt KDeyF245FSQytBqoCiVt eDb8U5JpBfs8LVKo qLvjIW6cgLCjPTawFt3r kGwwxLccMP6uMSFlirra k079NoAps1rwJECzmBHa NSoaYFA5B80yz5V9 OKYlNWFpEZS6pRV3iD4h bGlnbjogbGVmdDsgdmVy dKlyTNpnNSlxI662DHGy cDsnPlBhdGllbnQg FRkgKEk3T8RrCtitrUT+ QZ04GABpUZ64cLMpzLNp a1vmoMi9TkXwSYPqGMV0 qOzlVKoyw5UnWWYe N99etUMfe9C0HRSvaFbi bZWrSqRruLR6oB6dNStw djfjc1tbgphqKoour1yt ww40qQ08I56vSWfk ZHRoPSIzMCUiIHZhbGln pc7qdO0bTv2+PGNvbCB3 rXP0nM7aMRXoUvM3UTdr C294LhRncADlJpyh y4mco4ypxEu9KiO9QDNp wgGasPgtYJO5d0ZtUt07 V36vLLobJXJsNEKaVXXt JVZklUhrdb4ejB2e Ii8+AJMmdKE0pJR8uH6m PiBfWuP9KLbqD348HjEe fXVhNthqL39uR2QayOW+ OWZiGcu3QPJhwSrd SW0bjHUwGCwmRq7kXTD2 CmNrVxUaKPtrO3QhISQr vvbsxbzzfTU6WNPrGMBf tR74Ua4wlSwmMLCj nJGCkO9ktoxil1rnzbbt PeCcEVRwZYt7VTv7QSQr kVnuYtScYCI8FdF9BEW0 sMEycZ7skIdzqvwj rE9tG8PrLLKfxvfoDo21 tD2tEvIpRiO9CPfaXge+ THuARFBFOLDOQXFFNM6V BNoHG99YOC01GQ08 nBPzm6G6pYX8A5WoDXTe qkrcszmetFJ0GXBiVISh bU45yXCrWXxmAa7rl4P3 t913YYJdJBRipP77 Jn2tsFnjNJYpcQCPwC1h qfwhx9uxcfqiCzGfXLOm WCq9CYs4YHDxzFhhMkUz AOM9LiE2NRE1jXYb gY5ugSxiedywkB5tWhk+ MDMvMDQvMTkzNTwvdGQ+ VTMgVZO6dCymJZadPEAu rZ0nQSDeQ6t5FbBd SxV4LSrxR8IoIOBzrrcd Uu26qH5bPjLrAuP4QGpz F7FbslF1XROsvZTnWPkr GAR7O68pd0P4EHWv WKQdSKL1hPP3nR8gwZed bjogbGVmdDsgdmVydGlj HYjfDMghJ668CXGdbMkn Pgc2TXkyZADxDP35 EB55vEUsz4O1iGD8E3Se OMNbmhehizvckYA4WJOr KEVvpE97wDTtSFsaTe9h c1C1y824YXHhMQCu jJ37Yj1szEzsWJXycAFF qI7cdkooz7ezxzltKbZm DNMcNAr8WSc8JGYjpUin OeVbSTG6KgK9VGQ3 tHLmmO6xcRgfdhcqmJ3w Oyc+TUFMRTwvdGQ+PHRk DGA2oSjkRInyRWXxdQ0a SNLtM6l5TpRvGeI6 OMngO5VqOAAbiugcCp55 kE6rQkDcWaR9HPaeG9Ed udT9RBYarKGuHXixHSD8 E66yj2P9MGOlZGXn GRX9eRP8nS8utUfmqouv bGVmdDsgdmVydGljYWwt LYvaW981LNEteVjyJwMc qMQLwLAnHSF6FM68 BY33I3OyZeqqcUCkeQJ+ PHRhYmxlIHdpZHRoPScx YQNvQhVqwLsgLG2wFd4o ZGVyLWNvbGxhcHNl OwKuz9luKOFwVMaxPJ6m dIslT0SboIU1OSIxo6q3 Ai82I14oA8YiqTN+PGNv kSR4gXV2yX1pUqDk IwI1VJltR190QyLboJIf Fwhkw9yuq2shrYg6KpWh ZYFhqwJzkEndCIP7e8It Is06B92vLPhiAPEd ESLbVGIpJUQwqIhzlr5w aT3pOb9+REZitYX3aTP3 rD5zFwSkDwM7SUylF943 CzNotUUgVehbA90e R0CobFY+SUFkWcp2LHQt mLscLJ9lbRPdCCtqYo0t XEK0LjRoUjUqKLicO9Pc ZGRpbmctcmlnaHQ6 SQVoEUKoqA65Lk6imHww Gb3sHHGjUWT6FIUzrYTz A3CorS8dIyOmSLCeVEVt I0YzqLAuGSavN673 SPstKkN4QFNmbuKbU2Nc JYDafSplCeL1h6V0Rn1Z dZmatNDfOC8pZiTnOPk8 K0GzVcu6XIEpaQzy EG7bjZHoVHjbLb5mcRwe xTdaQZ1bLTHoguqqh630 KqMjl4zmAOGjhVVdOCrp AOL6T71gy4W9XBJm RKLfYGC4qCY5yK7rnStb bjogbGVmdDsgdmVydGlj SKklDLufK494CXVpdFml ZpPRYwc6X5LdIzf7 XGNatHybJP5biNDsQIql Rc0riUrenNkcED8tEXQy ukroo574JwQby6qdYRMd vHTnQSvkQVH7Q88f y1H4LGYiOUUcYOB4eMT8 sT5yoNnyouxenZJvpMve spPsuOhyTWkaKEfoT099 ADPbmZjgFw6TEah2 I9SgEik6DTQkfCosMP1j dIShIUtyDo5kfUdtwIcb NQ9oSTWhofgzp219EoLz p1uzHOJagBFrQMpc DVT3X95mn2W4VUKbLNIw JGN4jAJ3fW4gtRsnpsdp bGVmdDsgdmVydGljYWwt QXzuX138TAVveFml PlBheWVyOjwvdGQ+PC90 ot32J1RyKayoHwt0QFLw ARR5qLY5qM2yRHRoAXeo o8Q0dGW2L9FvzwYo ci1 (more content not included)... [facility] [place] 12-18-19 [facility] Case Information Case Priority: None Programs: -- Referral Source: Stitcher Tape Controlled Machine Referral Reason: Care coordination Case Type: Transition [...] any questions or concerns. Patient currently at [facility] unable to provide patient with contact number, but did advise patient to call office and ask to speak with director of managed care if he had any questions or concerns. Communication Events Date: December 17, 2022 Method: Phone call Type: Outbound Duration (min): 5 Outcome: Case discussion Contact Type: Patient Contact Name: RY LERNER Notes: TCM #1-see summary note. Created By: Ezequiel PERSAUD, Sandra Medrano [facility] CBC AUTO DIFFon 12-14-2022 BASO # 0.0 103/ul Normal 0.0-0.1 [facility] Comment on above: Performed By: #### C BC #### [facility] [address] [place] [address] Dr. Rashmi Nolan Basophils/100 WBC (Bld) 0.6 % Normal 0.2-2.0 [facility] Comment on above: Performed By: #### C BC #### [facility] [address] [place] [address] Dr. Rashmi Nolan EO # 0.4 103/ul Normal 0.0-0.7 [facility] Comment on above: Performed By: #### C BC #### [facility] [address] [place] [address] Dr. Rashmi Nolan Eosinophils/100 WBC (Bld) 11.9 % Critically high 0.9-7.0 [facility] Comment on above: Performed By: #### C BC #### [facility] [address] [place] [address] Dr. Rashmi Nolan Erythrocyte distribution width (RBC) [Ratio] 15.2 % Critically high 11.0-15.0 [facility] Comment on above: Performed By: #### C BC #### [facility] [address] [place] [address] Dr. Rashmi Nolan Hematocrit (Bld) [Volume fraction] 26.3 % Critically low 42.0-54.0 [facility] Comment on above: Performed By: #### C BC #### [facility] [address] [place] [address] Dr. Rashmi Nolan Hemoglobin (Bld) [Mass/Vol] 8.9 g/dL Critically low 14.0-18.0 [facility] Comment on above: Performed By: #### C BC #### [facility] [address] [place] [address] Dr. Rashmi Nolan IG # 0.01 10e3/ul Normal 0.00-0.03 [facility] Comment on above: Performed By: #### C BC #### [facility] [address] [place] [address] Dr. Rashmi Nolan IG % 0.3 % Normal 0.0-0.5 [facility] Comment on above: Performed By: #### C BC #### [facility] [address] [place] [address] Dr. Rashmi Nolan LYMPH # 0.8 103/ul Critically low 1.2-3.8 [facility] Comment on above: Performed By: #### C BC #### [facility] [address] [place] [address] Dr. Rashmi Nolan Lymphocytes/100 WBC (Bld) 25.1 % Normal 20.5-60.0 [facility] Comment on above: Performed By: #### C BC #### [facility] [address] [place] [address] Dr. Rashmi Nolan MANUAL DIFF REQ NO Normal [facility] Comment on above: Performed By: #### C BC #### [facility] [address] [place] [address] Dr. Rashmi Nolan MCH (RBC) [Entitic mass] 33.0 pg Normal 25.9-34.0 [facility] Comment on above: Performed By: #### C BC #### [facility] [address] [place] [address] Dr. Rashmi Nolan MCHC (RBC) [Mass/Vol] 33.8 g/dL Normal 29.9-35.2 [facility] Comment on above: Performed By: #### C BC #### [facility] [address] [place] [address] Dr. Rashmi Nolan MCV (RBC) [Entitic vol] 97.4 fL Critically high 80.0-94.0 [facility] Comment on above: Performed By: #### C BC #### [facility] [address] [place] [address] Dr. Rashmi Nolan MONO # 0.3 103/ul Normal 0.3-0.8 [facility] Comment on above: Performed By: #### C BC #### [facility] [address] [place] [address] Dr. Rashmi Nolan Monocytes/100 WBC (Bld) 9.0 % Normal 1.7-12.0 [facility] Comment on above: Performed By: #### C BC #### [facility] [address] [place] [address] Dr. Rashmi Nolan NEUT # 1.7 103/ul Normal 1.4-6.5 [facility] Comment on above: Performed By: #### C BC #### [facility] [address] [place] [address] Dr. Rashmi Nolan Neutrophils/100 WBC (Bld) 53.1 % Normal 43.0-75.0 [facility] Comment on above: Performed By: #### C BC #### [facility] [address] [place] [address] Dr. Rashmi Nolan Platelet mean volume (Bld) [Entitic vol] 10.2 fL Normal 9.5-13.5 [facility] Comment on above: Performed By: #### C BC #### [facility] [address] [place] [address] Dr. Rashmi Nolan PLT 139 103/ul Critically low 150-450 [facility] Comment on above: Performed By: #### C BC #### [facility] [address] [place] [address] Dr. Rashmi Nolan RBC 2.70 106/ul Critically low 4.70-6.10 [facility] Comment on above: Performed By: #### C BC #### [facility] [address] [place] [address] Dr. Rashmi Nolan WBC 3.1 103/ul Critically low 4.0-11.0 [facility] Comment on above: Performed By: #### C BC #### [facility] [address] [place] [address] Dr. Rashmi Nolan MAGR Intraoperative Recordon 12-14-2022 MAGR Intraoperative Record MAGR Intra-Op Record Summary Primary Physician: Ward Martinez DO Finalized Date/Time: 12/14/22 09:30:19 Pt. Name: RY LERNER PERRY Leblanc/Sex: 1935 MALE Med Rec #: [id number] Physician: Ward Martinez DO Financial #: [id number] Pt. Type: D Room/Bed: / Admit/Disch: 12/10/22 [...] Andrew DO Role Performed Surgeon - Primary Pail Tester Pail Tester Time In 12/10/22 15:05:00 12/10/22 14:54:00 12/10/22 14:54:00 Time Out 12/10/22 15:30:00 12/10/22 15:30:00 12/10/22 15:30:00 Procedure Carpal Tunnel Carpal Tunnel Carpal Tunnel Release(Left) Release(Left) Release(Left) Last Modified By: Maile Palmer RN, Barbara RN Long, Barbara RN 12/10/22 15:29:30 12/10/22 15:29:30 12/10/22 15:29:30 Entry 4 Entry 5 Case Attendee Macie Licea CST, CST, Brandi Role Performed Merchandise Presentation Associate Scrub Personnel Time In 12/10/22 14:54:00 12/10/22 [...] Primary Procedure Yes Primary Surgeon Ward Martinez Left Riki DO Surgeon Comment LEFT CARPAL TUNNEL Start [...] Yes Pillow, Safety Strap Last Modified By: [place] PERSAUD Chelita Alcides 12/10/22 13:58:17 Post-Care Text: E.290 Evaluates musculoskeletal [...] By Maile Palmer RN Scrub 10% Povidone-Iodine Spur Prep Area (Im.270) Arm lower Prep Area [...] chemical injury Counts (more content not included)... [facility] Outside Colonoscopyon 2022 Outside Colonoscopy [id number] #1.00CD:127 [facility] Correspo ndenceon 12-14-2022 Outside [facility] Correspondence [id number] #1.00CD:127 [facility] Outside Hospital Correspondence [id number] #1.00CD:127 [facility] Correspondence [id number] #1.00CD:127 [facility] Correspondence [id number] #1.00CD:127 [facility] Outside Hospital Correspondence [id number] #1.00CD:127 [facility] PROF CHEM 8 (BAS METB)on Anion gap [Moles/Vol] 12.6 mmol/L Normal Th e [facility] Comment on above: Performed By: #### B MP #### [facility] [address] [address] [address] Rashmi Nolan Calcium [Mass/Vol] 9.7 mg/dL Normal 8.5-10.1 [facility] Comment on above: Performed By: #### B MP #### [facility] [address] [address] [address] Rashmi Nolan Chloride [Moles/Vol] 108 mmol/L Critically high 98-107 [facility] Comment on above: Performed By: #### B MP #### [facility] [address] [address] [address] Rashmi Nolan CO2 [Moles/Vol] 24.5 mmol/L Normal 21.0-32.0 [facility] Comment on above: Performed By: #### B MP #### [facility] [address] [address] [address] Rashmi Nolan Creatinine [Mass/Vol] 1.68 mg/dL Critically high 0.70-1.30 [facility] Comment on above: Performed By: #### B MP #### [facility] [address] [address] [address] Rashmi Nolan EGFR-AF GIBRALTARIAN 47 mL/min/1.73m2 Critically low >=60 [facility] Comment on above: Performed By: #### B MP #### [facility] [address] [address] [address] Rashmi Nolan EGFR-NON AF GIBRALTARIAN 39 mL/min/1.73m2 Critically low >=60 [facility] Comment on above: Performed By: #### B MP #### [facility] [address] [address] [address] Rashmi Nolan Glucose [Mass/Vol] 91 mg/dL Normal 74-106 [facility] Comment on above: Performed By: #### B MP #### [facility] [address] [address] [address] Rashmi Nolan Potassium [Moles/Vol] 5.1 mmol/L Normal 3.5-5.1 [facility] Comment on above: Performed By: #### B MP #### [facility] [address] [place] [address] Dr. Rashmi Nolan Sodium [Moles/Vol] 140 mmol/L Normal 136-145 [facility] Comment on above: Performed By: #### B MP #### [facility] [address] [place] [address] Dr. Rashmi Nolan Urea nitrogen [Mass/Vol] 27.0 mg/dL Critically high 7.0-18.0 [facility] Comment on above: Performed By: #### B MP #### [facility] [address] [place] [address] Dr. Rashmi Nolan Urea nitrogen/Creatinine [Mass ratio] 16.1 mg/mg Normal [facility] Comment on above: Performed By: #### B MP #### [facility] [address] [place] [address] Dr. Rashmi Nolan Transfer Inon 12-14-2022 Transfer In [id number] #1.00CD:127 Normal [facility] CBC AUTO DIFFon 12-13-2022 BASO # 0.0 103/ul Normal 0.0-0.1 [facility] Comment on above: Performed By: #### C BC #### [facility] [address] [place] [address] Dr. Rashmi Nolan Basophils/100 WBC (Bld) 0.6 % Normal 0.2-2.0 [facility] Comment on above: Performed By: #### C BC #### [facility] [address] [place] [address] Dr. Rashmi Nolan EO # 0.4 103/ul Normal 0.0-0.7 [facility] Comment on above: Performed By: #### C BC #### [facility] [address] [place] [address] Dr. Rashmi Nolan Eosinophils/100 WBC (Bld) 10.3 % Critically high 0.9-7.0 [facility] Comment on above: Performed By: #### C BC #### [facility] [address] [place] [address] Dr. Rashmi Nolan Erythrocyte distribution width (RBC) [Ratio] 15.8 % Critically high 11.0-15.0 [facility] Comment on above: Performed By: #### C BC #### [facility] [address] [place] [address] Dr. Rashmi Nolan Hematocrit (Bld) [Volume fraction] 25.7 % Critically low 42.0-54.0 [facility] Comment on above: Performed By: #### C BC #### [facility] [address] [place] [address] Dr. Rashmi Nolan Hemoglobin (Bld) [Mass/Vol] 8.5 g/dL Critically low 14.0-18.0 [facility] Comment on above: Performed By: #### C BC #### [facility] [address] [place] [address] Dr. Rashmi Nolan IG # 0.00 10e3/ul Normal 0.00-0.03 [facility] Comment on above: Performed By: #### C BC #### [facility] [address] [place] [address] Dr. Rashmi Nolan IG % 0.0 % Normal 0.0-0.5 [facility] Comment on above: Performed By: #### C BC #### [facility] [address] [place] [address] Dr. Rashmi Nolan LYMPH # 0.8 103/ul Critically low 1.2-3.8 [facility] Comment on above: Performed By: #### C BC #### [facility] [address] [place] [address] Dr. Rashmi Nolan Lymphocytes/100 WBC (Bld) 23.5 % Normal 20.5-60.0 [facility] Comment on above: Performed By: #### C BC #### [facility] [address] [place] [address] Dr. Rashmi Nolan MANUAL DIFF REQ NO Normal [facility] Comment on above: Performed By: #### C BC #### [facility] [address] [address] [address] Rashmi Nolan MCH (RBC) [Entitic mass] 32.9 pg Normal 25.9-34.0 [facility] Comment on above: Performed By: #### C BC #### [facility] [address] [address] [address] Rashmi Nolan MCHC (RBC) [Mass/Vol] 33.1 g/dL Normal 29.9-35.2 [facility] Comment on above: Performed By: #### C BC #### [facility] [address] [address] [address] Rashmi Nolan MCV (RBC) [Entitic vol] 99.6 fL Critically high 80.0-94.0 [facility] Comment on above: Performed By: #### C BC #### [facility] [address] [place] [address] Dr. Rashmi Nolan MONO # 0.3 103/ul Normal 0.3-0.8 [facility] Comment on above: Performed By: #### C BC #### [facility] [address] [place] [address] Dr. Rashmi Nolan Monocytes/100 WBC (Bld) 8.9 % Normal 1.7-12.0 [facility] Comment on above: Performed By: #### C BC #### [facility] [address] [place] [address] Dr. Rashmi Nolan NEUT # 2.0 103/ul Normal 1.4-6.5 [facility] Comment on above: Performed By: #### C BC #### [facility] [address] [place] [address] Dr. Rashmi Nolan Neutrophils/100 WBC (Bld) 56.7 % Normal 43.0-75.0 [facility] Comment on above: Performed By: #### C BC #### [facility] [address] [place] [address] Dr. Rashmi Nolan Platelet mean volume (Bld) [Entitic vol] 10.5 fL Normal 9.5-13.5 [facility] Comment on above: Performed By: #### C BC #### [facility] [address] [address] [address] Rashmi Nolan PLT 134 103/ul Critically low 150-450 [facility] Comment on above: Performed By: #### C BC #### [facility] [address] [address] [address] Rashmi Nolan RBC 2.58 106/ul Critically low 4.70-6.10 [facility] Comment on above: Performed By: #### C BC #### [facility] [address] [address] [address] Rashmi Nolan WBC 3.6 103/ul Critically low 4.0-11.0 [facility] Comment on above: Performed By: #### C BC #### [facility] [address] [address] [address] Rashmi Nolan PROF CHEM 8 (BAS METB)on Anion gap [Moles/Vol] 11.7 mmol/L Normal [facility] Comment on above: Performed By: #### C BC #### [facility] [address] [address] [address] Rashmi Nolan Calcium [Mass/Vol] 9.5 mg/dL Normal 8.5-10.1 [facility] Comment on above: Performed By: #### C BC #### [facility] [address] [address] [address] Rashmi Nolan Chloride [Moles/Vol] 110 mmol/L Critically high 98-107 [facility] Comment on above: Performed By: #### C BC #### [facility] [address] [address] [address] Rashmi Nolan CO2 [Moles/Vol] 25.1 mmol/L Normal 21.0-32.0 [facility] Comment on above: Performed By: #### C BC #### [facility] [address] [address] [address] Rasmhi Nolan Creatinine [Mass/Vol] 1.69 mg/dL Critically high 0.70-1.30 [facility] Comment on above: Performed By: #### C BC #### [facility] [address] [address] [address] Rashmi Nolan EGFR-AF GIBRALTARIAN 47 mL/min/1.73m2 Critically low >=60 [facility] Comment on above: Performed By: #### C BC #### [facility] [address] [address] [address] Rashmi Nolan EGFR-NON AF GIBRALTARIAN 38 mL/min/1.73m2 Critically low >=60 [facility] Comment on above: Performed By: #### C BC #### [facility] [address] [address] [address] Rashmi Nolan Glucose [Mass/Vol] 93 mg/dL Normal 74-106 [facility] Comment on above: Performed By: #### C BC #### [facility] [address] [address] [address] Rashmi Nolan Potassium [Moles/Vol] 5.8 mmol/L Critically high 3.5-5.1 [facility] Comment on above: Performed By: #### C BC #### [facility] [address] [address] [address] Rashmi Nolan Sodium [Moles/Vol] 141 mmol/L Normal 136-145 [facility] Comment on above: Performed By: #### C BC #### [facility] [address] [address] [address] Rashmi Nolan Urea nitrogen [Mass/Vol] 35.0 mg/dL Critically high 7.0-18.0 [facility] Comment on above: Performed By: #### C BC #### [facility] [address] [address] [address] Rashmi Nolan Urea nitrogen/Creatinine [Mass ratio] 20.7 mg/mg Normal [facility] Comment on above: Performed By: #### C BC #### [facility] [address] [address] [address] Rashmi Nolan ABO RH RETYPEon 12-12-2022 ABO and Rh group Nom (Bld) DONE Normal [facility] Comment on above: Performed By: #### C BC #### [facility] [address] [address] [address] Rashmi Nolan Auth for Release of Medical Recordson 12-12-2022 Auth for Release of Medical Records [id number] #1.00CD:127 Normal [facility] CBC AUTO DIFFon 12-12-2022 BASO # 0.0 103/ul Normal 0.0-0.1 [facility] Comment on above: Performed By: #### C BC #### [facility] [address] [address] [address] Rashmi Nolan Basophils/100 WBC (Bld) 0.6 % Normal 0.2-2.0 [facility] Comment on above: Performed By: #### C BC #### [facility] [address] [place] [address] Dr. Rashmi Nolan EO # 0.3 103/ul Normal 0.0-0.7 [facility] Comment on above: Performed By: #### C BC #### [facility] [address] [place] [address] Dr. Rashmi Nolan Eosinophils/100 WBC (Bld) 7.6 % Critically high 0.9-7.0 [facility] Comment on above: Performed By: #### C BC #### [facility] [address] [address] [address] Rashmi Nolan Erythrocyte distribution width (RBC) [Ratio] 16.4 % Critically high 11.0-15.0 [facility] Comment on above: Performed By: #### C BC #### [facility] [address] [place] [address] Dr. Rashmi Nolan Hematocrit (Bld) [Volume fraction] 27.2 % Critically low 42.0-54.0 [facility] Comment on above: Performed By: #### C BC #### [facility] [address] [place] [address] Dr. Rashmi Nolan Hemoglobin (Bld) [Mass/Vol] 9.1 g/dL Critically low 14.0-18.0 [facility] Comment on above: Performed By: #### C BC #### [facility] [address] [address] [address] Rashmi Nolan IG # 0.01 10e3/ul Normal 0.00-0.03 [facility] Comment on above: Performed By: #### C BC #### [facility] [address] [address] [address] Rashmi Nolan IG % 0.3 % Normal 0.0-0.5 [facility] Comment on above: Performed By: #### C BC #### [facility] [address] [place] [address] Dr. Rashmi Nolan LYMPH # 0.9 103/ul Critically low 1.2-3.8 [facility] Comment on above: Performed By: #### C BC #### [facility] [address] [place] [address] Dr. Rashmi Nolan Lymphocytes/100 WBC (Bld) 25.3 % Normal 20.5-60.0 [facility] Comment on above: Performed By: #### C BC #### [facility] [address] [place] [address] Dr. Rashim Nolan MANUAL DIFF REQ NO Normal [facility] Comment on above: Performed By: #### C BC #### [facility] [address] [place] [address] Dr. Rashmi Nolan MCH (RBC) [Entitic mass] 33.0 pg Normal 25.9-34.0 [facility] Comment on above: Performed By: #### C BC #### [facility] [address] [place] [address] Dr. Rashmi Nolan MCHC (RBC) [Mass/Vol] 33.5 g/dL Normal 29.9-35.2 [facility] Comment on above: Performed By: #### C BC #### [facility] [address] [place] [address] Dr. Rashmi Nolan MCV (RBC) [Entitic vol] 98.6 fL Critically high 80.0-94.0 [facility] Comment on above: Performed By: #### C BC #### [facility] [address] [address] [address] Rsahmi Nolan MONO # 0.3 103/ul Normal 0.3-0.8 [facility] Comment on above: Performed By: #### C BC #### [facility] [address] [address] [address] Rashmi Nolan Monocytes/100 WBC (Bld) 8.1 % Normal 1.7-12.0 [facility] Comment on above: Performed By: #### C BC #### [facility] [address] [address] [address] Rashmi Nolan NEUT # 2.0 103/ul Normal 1.4-6.5 [facility] Comment on above: Performed By: #### C BC #### [facility] [address] [place] [address] Dr. Rashmi Nolan Neutrophils/100 WBC (Bld) 58.1 % Normal 43.0-75.0 [facility] Comment on above: Performed By: #### C BC #### [facility] [address] [place] [address] Dr. Rashmi Nolan Platelet mean volume (Bld) [Entitic vol] 10.0 fL Normal 9.5-13.5 [facility] Comment on above: Performed By: #### C BC #### [facility] [address] [place] [address] Dr. Rashmi Nolan PLT 147 103/ul Critically low 150-450 [facility] Comment on above: Performed By: #### C BC #### [facility] [address] [address] [address] Rashmi Nolan RBC 2.76 106/ul Critically low 4.70-6.10 [facility] Comment on above: Performed By: #### C BC #### [facility] [address] [place] [address] Dr. Rashmi Nolan WBC 3.4 103/ul Critically low 4.0-11.0 [facility] Comment on above: Performed By: #### C BC #### [facility] [address] [place] [address] Dr. Rashmi Nolan BASO # 0.0 103/ul Normal 0.0-0.1 [facility] Comment on above: Performed By: #### C BC #### [facility] [address] [place] [address] Dr. Rashmi Nolan Basophils/100 WBC (Bld) 0.6 % Normal 0.2-2.0 [facility] Comment on above: Performed By: #### C BC #### [facility] [address] [place] [address] Dr. Rashmi Nolan EO # 0.2 103/ul Normal 0.0-0.7 [facility] Comment on above: Performed By: #### C BC #### [facility] [address] [place] [address] Dr. Rashmi Nolan Eosinophils/100 WBC (Bld) 6.6 % Normal 0.9-7.0 [facility] Comment on above: Performed By: #### C BC #### [facility] [address] [place] [address] Dr. Rashmi Nolan Erythrocyte distribution width (RBC) [Ratio] 16.4 % Critically high 11.0-15.0 [facility] Comment on above: Performed By: #### C BC #### [facility] [address] [place] [address] Dr. Rashmi Nolan Hematocrit (Bld) [Volume fraction] 26.1 % Critically low 42.0-54.0 [facility] Comment on above: Performed By: #### C BC #### [facility] [address] [place] [address] Dr. Rashmi Nolan Hemoglobin (Bld) [Mass/Vol] 8.5 g/dL Critically low 14.0-18.0 [facility] Comment on above: Result Comment: rcvd . blood Performed By: #### C BC #### [facility] [address] [place] [address] Dr. Rashmi Nolan IG # 0.01 10e3/ul Normal 0.00-0.03 [facility] Comment on above: Performed By: #### C BC #### [facility] [address] [place] [address] Dr. Rashmi Nolan IG % 0.3 % Normal 0.0-0.5 [facility] Comment on above: Performed By: #### C BC #### [facility] [address] [place] [address] Dr. Rashmi Nolan LYMPH # 0.7 103/ul Critically low 1.2-3.8 [facility] Comment on above: Performed By: #### C BC #### [facility] [address] [place] [address] Dr. Rashmi Nolan Lymphocytes/100 WBC (Bld) 20.2 % Critically low 20.5-60.0 [facility] Comment on above: Performed By: #### C BC #### [facility] [address] [place] [address] Dr. Rashmi Nolan MANUAL DIFF REQ NO Normal [facility] Comment on above: Performed By: #### C BC #### [facility] [address] [place] [address] Dr. Rashmi Nolan MCH (RBC) [Entitic mass] 32.7 pg Normal 25.9-34.0 [facility] Comment on above: Performed By: #### C BC #### [facility] [address] [place] [address] Dr. Rashmi Nolan MCHC (RBC) [Mass/Vol] 32.6 g/dL Normal 29.9-35.2 [facility] Comment on above: Performed By: #### C BC #### [facility] [address] [place] [address] Dr. Rashmi Nolan MCV (RBC) [Entitic vol] 100.4 fL Critically high 80.0-94.0 [facility] Comment on above: Performed By: #### C BC #### [facility] [address] [place] [address] Dr. Rashmi Nolan MONO # 0.3 103/ul Normal 0.3-0.8 [facility] Comment on above: Performed By: #### C BC #### [facility] [address] [place] [address] Dr. Rashmi Nolan Monocytes/100 WBC (Bld) 7.7 % Normal 1.7-12.0 [facility] Comment on above: Performed By: #### C BC #### [facility] [address] [place] [address] Dr. Rashmi Nolan NEUT # 2.3 103/ul Normal 1.4-6.5 [facility] Comment on above: Performed By: #### C BC #### [facility] [address] [place] [address] Dr. Rashmi Nolan Neutrophils/100 WBC (Bld) 64.6 % Normal 43.0-75.0 [facility] Comment on above: Performed By: #### C BC #### [facility] [address] [place] [address] Dr. Rashmi Nolan Platelet mean volume (Bld) [Entitic vol] 9.9 fL Normal 9.5-13.5 [facility] Comment on above: Performed By: #### C BC #### [facility] [address] [place] [address] Dr. Rashmi Nolan PLT 130 103/ul Critically low 150-450 [facility] Comment on above: Performed By: #### C BC #### [facility] [address] [place] [address] Dr. Rashmi Nolan RBC 2.60 106/ul Critically low 4.70-6.10 [facility] Comment on above: Performed By: #### C BC #### [facility] [address] [place] [address] Dr. Rashmi Nolan WBC 3.6 103/ul Critically low 4.0-11.0 [facility] Comment on above: Performed By: #### C BC #### [facility] [address] [place] [address] Dr. Rashmi Nolan PRBC LEUKOREDUCEDon 12-13-19 ABO and Rh group Nom (Bld) Cross Match Result Compatible Unit Blood Type O Pos Unit Number [id number] Status Information Issued Product ID Red Blood Cells Product Code [id number] Issue Date/Time [id number] Cross Match Result Compatible Unit Blood Type O Pos Unit Number [id number] Status Information Issued Product ID Red Blood Cells Product Code [id number] Issue Date/Time [id number] Normal [facility] Comment on above: Performed By: #### C BC #### [facility] [address] [address] [address] Rashmi Nolan PROF CHEM 8 (BAS METB)on Anion gap [Moles/Vol] 14.8 mmol/L Normal [facility] Comment on above: Performed By: #### B MP #### [facility] [address] [address] [address] Rashmi Nolan Calcium [Mass/Vol] 9.2 mg/dL Normal 8.5-10.1 [facility] Comment on above: Performed By: #### B MP #### [facility] [address] [address] [address] Rashmi Nolan Chloride [Moles/Vol] 110 mmol/L Critically high 98-107 [facility] Comment on above: Performed By: #### B MP #### [facility] [address] [address] [address] Rashmi Nolan CO2 [Moles/Vol] 23.5 mmol/L Normal 21.0-32.0 [facility] Comment on above: Performed By: #### B MP #### [facility] [address] [address] [address] Rashmi Nolan Creatinine [Mass/Vol] 1.77 mg/dL Critically high 0.70-1.30 [facility] Comment on above: Performed By: #### B MP #### [facility] [address] [address] [address] Rashmi Nolan EGFR-AF GIBRALTARIAN 44 mL/min/1.73m2 Critically low >=60 [facility] Comment on above: Performed By: #### B MP #### [facility] [address] [address] [address] Rashmi Nolan EGFR-NON AF GIBRALTARIAN 36 mL/min/1.73m2 Critically low >=60 [facility] Comment on above: Performed By: #### B MP #### [facility] [address] [address] [address] Rashmi Nolan Glucose [Mass/Vol] 103 mg/dL Normal 74-106 [facility] Comment on above: Performed By: #### B MP #### [facility] [address] [place], [place] [address] Dr. Rashmi Nolan Potassium [Moles/Vol] 5.3 mmol/L Critically high 3.5-5.1 [facility] Comment on above: Performed By: #### B MP #### [facility] [address] [address] [address] Rashmi Nolan Sodium [Moles/Vol] 143 mmol/L Normal 136-145 [facility] Comment on above: Performed By: #### B MP #### [facility] [address] [address] [address] Rashmi Nolan Urea nitrogen [Mass/Vol] 54.0 mg/dL Critically high 7.0-18.0 [facility] Comment on above: Performed By: #### B MP #### [facility] [address] [address] [address] Rashmi Nolan Urea nitrogen/Creatinine [Mass ratio] 30.5 mg/mg Normal [facility] Comment on above: Performed By: #### B MP #### [facility] [address] [address] [address] Rashmi Nolan Auto Diffon 12-11-2022 Basophils/100 WBC (Bld) 0.5 % Normal 0.0-2.0 [facility] Comment on above: Order Comment: Order Added by Discern Expert. Performed By: #### 2 [id number], [id number], [id number] ####[facility] [address] [place] [address] Basophils/Leukocytes Auto (Bld) [Pure # fraction] 0.0 E9/L Normal 0.0-0.2 [facility] Comment on above: Order Comment: Order Added by Discern Expert. Performed By: #### 2 [id number], [id number], [id number] ####[facility] [address] [place] [address] Eosinophils/100 WBC (Bld) 3.4 % Normal 0.0-8.0 [facility] Comment on above: Order Comment: Order Added by Discern Expert. Performed By: #### 2 [id number], [id number], [id number] ####[address] [address] Eosinophils/Leukocyte s Auto (Bld) [Pure # fraction] 0.2 E9/L Normal 0.0-0.5 [facility] Comment on above: Order Comment: Order Added by Discern Expert. Performed By: #### 2 [id number], [id number], [id number] ####[address] [address] Lymphocytes/100 WBC (Bld) 17.1 % Normal 14.0-50.0 [facility] Comment on above: Order Comment: Order Added by Discern Expert. Performed By: #### 2 540954, [id number], [id number] ####[address] [address] Lymphocytes/Leukocyte s Auto (Bld) [Pure # fraction] 0.9 E9/L Low 1.0-4.0 [facility] Comment on above: Order Comment: Order Added by Discern Expert. Performed By: #### 2 [id number], [id number], [id number] ####[address] [address] Monocytes/100 WBC (Bld) 6.1 % Normal 4.0-14.0 [facility] Comment on above: Order Comment: Order Added by Discern Expert. Performed By: #### 2 984656, [id number], [id number] ####[address] [address] Monocytes/Leukocytes Auto (Bld) [Pure # fraction] 0.3 E9/L Normal 0.2-1.0 [facility] Comment on above: Order Comment: Order Added by Discern Expert. Performed By: #### 2 [id number], [id number], [id number] ####[facility] [address] [place] [address] Neutrophils/100 WBC (Bld) 72.9 % Normal 36.0-75.0 [facility] Comment on above: Order Comment: Order Added by Discern Expert. Performed By: #### 2 309206, [id number], [id number] ####[address] [place] [address] Neutrophils/Leukocyte s Auto (Bld) [Pure # fraction] 3.8 E9/L Normal 2.0-7.5 [facility] Comment on above: Order Comment: Order Added by Discern Expert. Performed By: #### 2 485214, [id number], [id number] ####[address] [place] [address] CBC AUTO DIFFon 12-11-2022 BASO # 0.0 103/ul Normal 0.0-0.1 [facility] Comment on above: Performed By: #### C BC #### [facility] [address] [place] [address] Dr. Rashmi Nolan Basophils/100 WBC (Bld) 0.4 % Normal 0.2-2.0 [facility] Comment on above: Performed By: #### C BC #### [facility] [address] [place] [address] Dr. Rashmi Nolan EO # 0.2 103/ul Normal 0.0-0.7 [facility] Comment on above: Performed By: #### C BC #### [facility] [address] [place] [address] Dr. Rashmi Nolan Eosinophils/100 WBC (Bld) 5.2 % Normal 0.9-7.0 [facility] Comment on above: Performed By: #### C BC #### [facility] [address] [place] [address] Dr. Rashmi Nolan Erythrocyte distribution width (RBC) [Ratio] 14.6 % Normal 11.0-15.0 [facility] Comment on above: Performed By: #### C BC #### [facility] [address] [place] [address] Dr. Rashmi Nolan Hematocrit (Bld) [Volume fraction] 23.7 % Critically low 42.0-54.0 [facility] Comment on above: Performed By: #### C BC #### [facility] [address] [address] [address] Rashmi Nolan Hemoglobin (Bld) [Mass/Vol] 7.8 g/dL Critically low 14.0-18.0 [facility] Comment on above: Performed By: #### C BC #### [facility] [address] [address] [address] Rashmi Nolan IG # 0.01 10e3/ul Normal 0.00-0.03 [facility] Comment on above: Performed By: #### C BC #### [facility] [address] [place] [address] Dr. Rashmi Nolan IG % 0.2 % Normal 0.0-0.5 [facility] Comment on above: Performed By: #### C BC #### [facility] [address] [place] [address] Dr. Rashmi Nolan LYMPH # 0.9 103/ul Critically low 1.2-3.8 [facility] Comment on above: Performed By: #### C BC #### [facility] [address] [place] [address] Dr. Rashmi Nolan Lymphocytes/100 WBC (Bld) 19.6 % Critically low 20.5-60.0 [facility] Comment on above: Performed By: #### C BC #### [facility] [address] [place] [address] Dr. Rashmi Nolan MANUAL DIFF REQ NO Normal [facility] Comment on above: Performed By: #### C BC #### [facility] [address] [place] [address] Dr. Rashmi Nolan MCH (RBC) [Entitic mass] 34.7 pg Critically high 25.9-34.0 [facility] Comment on above: Performed By: #### C BC #### [facility] [address] [place] [address] Dr. Rashmi Nolan MCHC (RBC) [Mass/Vol] 32.9 g/dL Normal 29.9-35.2 [facility] Comment on above: Performed By: #### C BC #### [facility] [address] [address] [address] Rashmi Nolan MCV (RBC) [Entitic vol] 105.3 fL Critically high 80.0-94.0 [facility] Comment on above: Performed By: #### C BC #### [facility] [address] [place] [address] Dr. Rashmi Nolan MONO # 0.3 103/ul Normal 0.3-0.8 [facility] Comment on above: Performed By: #### C BC #### [facility] [address] [place] [address] Dr. Rashmi Nolan Monocytes/100 WBC (Bld) 7.2 % Normal 1.7-12.0 [facility] Comment on above: Performed By: #### C BC #### [facility] [address] [place] [address] Dr. Rashmi Nolan NEUT # 3.0 103/ul Normal 1.4-6.5 [facility] Comment on above: Performed By: #### C BC #### [facility] [address] [place] [address] Dr. Rashmi Nolan Neutrophils/100 WBC (Bld) 67.4 % Normal 43.0-75.0 [facility] Comment on above: Performed By: #### C BC #### [facility] [address] [place] [address] Dr. Rashmi Nolan Platelet mean volume (Bld) [Entitic vol] 9.8 fL Normal 9.5-13.5 [facility] Comment on above: Performed By: #### C BC #### [facility] [address] [place] [address] Dr. Rashmi Nolan PLT 156 103/ul Normal 150-450 [facility] Comment on above: Performed By: #### C BC #### [facility] [address] [place] [address] Dr. Rashmi Nolan RBC 2.25 106/ul Critically low 4.70-6.10 [facility] Comment on above: Performed By: #### C BC #### [facility] [address] [place] [address] [address] Rashmi Nolan WBC 4.5 103/ul Normal 4.0-11.0 [facility] Comment on above: Performed By: #### C BC #### [facility] [address] [place] [address] [address] Rashmi Nolan CBC w/ Auto Diffon 3 Erythrocyte distribution width (RBC) [Ratio] 14.9 % High 10.9-14.2 [facility] Comment on above: Performed By: #### 2 [id number], [id number], [id number] #### [facility] [address] [place] [address] Hematocrit (Bld) [Volume fraction] 24.1 % Low 37.7-49.0 [facility] Comment on above: Performed By: #### 2 [id number], [id number], [id number] #### [facility] [address] [place] [address] Hemoglobin (Bld) [Mass/Vol] 8.1 g/dL Low 13.5-17.5 [facility] Comment on above: Performed By: #### 2 [id number], [id number], [id number] #### [facility] [address] [place] [address] MCH (RBC) [Entitic mass] 34.0 pg Normal 27.0-34.0 [facility] Comment on above: Performed By: #### 2 807212, [id number], [id number] #### [facility] [address] [place] [address] MCHC (RBC) [Mass/Vol] 33.6 g/dL Normal 31.4-36.0 [facility] Comment on above: Performed By: #### 2 649449, [id number], [id number] #### [facility] [address] [place] [address] MCV (RBC) [Entitic vol] 101.1 fL High 80.0-100.0 [facility] Comment on above: Performed By: #### 2 488779, [id number], [id number] #### [facility] [address] [place] [address] Platelet mean volume (Bld) [Entitic vol] 8.9 fL Normal 6.4-10.8 [facility] Comment on above: Performed By: #### 2 [id number], [id number], [id number] #### [facility] [address] [place] [address] Platelets (Bld) [#/Vol] 177.0 E9/L Normal 150.0-500.0 [facility] Comment on above: Performed By: #### 2 960861, [id number], [id number] #### [facility] [address] [place] [address] RBC (Bld) [#/Vol] 2.4 E12/L Low 4.3-5.9 [facility] Comment on above: Performed By: #### 2 598305, [id number], [id number] #### [facility] [address] [place] [address] WBC corrected for nucl RBC Auto (Bld) [#/Vol] 5.2 E9/L Normal 4.0-11.0 [facility] Comment on above: Performed By: #### 2 280344, [id number], [id number] #### [facility] [address] [place] [address] CHEMISTRYOrdered By: SYSTEM SYSTEM on 12-11-2022 Iron binding capacity [Mass/Vol] 417 ug/dL High 250 - 400 mcg/dL [facility] Remisol Transferrin [Mass/Vol] 298 mg/dL Normal 200 - 370 mg/dL [facility] Remisol Consent Formson 12-11-2022 Consent Forms [id number] #[id number] Normal [facility] Medicine Office/Clini c Noteon 12-11-2022 Family Medicine Office/Clinic Note HPI Staff Noemi is an 87 year old male who presents to establish care. 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 Martinez, Dr. Royal Jordan-Cardiology [facility], [facility] Last provider: Dr. Silva Any [...] he turned 79 years old. Will call [facility] and request records for any colonoscopy in 2014 or more recent. Review of Systems PHQ Score Initial Depression Screen Score: 0 Physical Exam Vitals & Measurements HR: 60(Peripheral) BP: 128/62 SpO2: 98% HT: 70 in HT: 178.5 cm WT: 99 kg WT: 217.8 lb BMI: 31.07 Assessment/Plan 1. Black tarry stools (K92.1: Melena) Ordered: CBC w/ Auto Diff Fibrinogen Lvl [facility] Internal Ambulatory Referral Lab Specimen Collect [id number] PT & PTT Stool Occult Blood Stool Occult Blood TIBC Calculated 2. Family hx of colon cancer (Z80.0: Family history of malignant neoplasm of digestive organs) Ordered: [facility] Internal Ambulatory Referral Lab Specimen Collect [id number] Stool Occult Blood 3. Colon cancer screening (Z12.11: Encounter for screening for malignant neoplasm of colon) Ordered: [facility] Internal Ambulatory Referral Lab Specimen Collect [id number] Stool Occult Blood 4. BMI 31.0-31.9,adult (Z68.31: Body mass index [BMI] 31.0-31.9, adult) Ordered: [facility] Internal Ambulatory Referral Stool Occult Blood Follow-up [...] Recorded influenza, whole 05/29/2005 Recorded Normal [facility] Comment on above: Result Comment: Elec tronically Signed By: Sheng Simms.viviane\Date and Time Signed: 12/11/22 13:49 EDT Family Medicine Office/Clinic Note HPI Staff Noemi is an 87 year old male who presents to establish care. 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 Martinez, Dr. Royal Jordan-Cardiology [facility], [facility] Last provider: Dr. Silva Any [...] he turned 79 years old. Will call [facility] and request records for [...] he had colonoscopy 6-7 years ago at [facility]. will call to access those records. pt has significant family history of colon cancer. will send stool to lab, will draw CBC and clotting studies in office today. will call patient tomorrow to advise if he should stop taking warfarin depending on lab results. all questions answered. RTC as needed Ordered: CBC w/ Auto Diff Fibrinogen Lvl [facility] Amb[facility] Referral PT & PTT Stool Occult Blood Stool Occult Blood TIBC Calculated 2. Family hx of colon cancer (Z80.0: Family history of malignant neoplasm of digestive organs) referral to Dr. Apolinar baez for scope Ordered: [facility] Internal Ambulatory Referral Stool Occult Blood 3. Colon cancer screening (Z12.11: Encounter for screening for malignant neoplasm of colon) see above Ordered: [facility] Internal Ambulatory Referral Stool Occult Blood 4. BMI 31.0-31.9,adult (Z68.31: Body mass index [BMI] 31.0-31.9, adult) BMI education complete Ordered: [facility] Internal Ambulatory Referral Stool Occult Blood Follow-up [...] neoplasm of (more content not included)... Normal [facility] Comment on above: Result Comment: Elec tronically Signed By: Sheng Simms\.br\Date and Time Signed: 12/11/22 13:48 EDT [...] 023 Albumin [Mass/Vol] 3.8 g/dL Normal 3.4-5.0 [facility] Comment on above: Performed By: #### B MP #### [facility] [address] [place] [address] Dr. Rashmi Nolan Albumin/Globulin [Mass ratio] 1.1 {ratio} Normal [facility] Comment on above: Performed By: #### B MP #### [facility] [address] [address] [address] Rashmi Nolan ALP [Catalytic activity/Vol] 178 U/L Critically high 46-116 [facility] Comment on above: Performed By: #### B MP #### [facility] [address] [place] [address] Dr. Rashmi Nolan ALT [Catalytic activity/Vol] 17 U/L Normal 16-63 [facility] Comment on above: Performed By: #### B MP #### [facility] [address] [address] [address] Rashmi Nolan Anion gap [Moles/Vol] 15.6 mmol/L Normal [facility] Comment on above: Performed By: #### B MP #### [facility] [address] [place] [address] Dr. Rashmi Nolan AST [Catalytic activity/Vol] 12 U/L Critically low 15-37 [facility] Comment on above: Performed By: #### B MP #### [facility] [address] [place] [address] Dr. Rashmi Nolan Bilirubin [Mass/Vol] 0.2 mg/dL Normal 0.2-1.0 [facility] Comment on above: Performed By: #### B MP #### [facility] [address] [place] [address] Dr. Rashmi Nolan Calcium [Mass/Vol] 9.5 mg/dL Normal 8.5-10.1 [facility] Comment on above: Performed By: #### B MP #### [facility] [address] [place] [address] Dr. Rashmi Nolan Chloride [Moles/Vol] 109 mmol/L Critically high 98-107 [facility] Comment on above: Performed By: #### B MP #### [facility] [address] [address] [address] Rashmi Nolan CO2 [Moles/Vol] 22.5 mmol/L Normal 21.0-32.0 [facility] Comment on above: Performed By: #### B MP #### [facility] [address] [address] [address] Rashmi Nolan Creatinine [Mass/Vol] 2.11 mg/dL Critically high 0.70-1.30 [facility] Comment on above: Performed By: #### B MP #### [facility] [address] [address] [address] Rashmi Nolan EGFR-AF GIBRALTARIAN 36 mL/min/1.73m2 Critically low >=60 [facility] Comment on above: Performed By: #### B MP #### [facility] [address] [address] [address] Rashmi Nolan EGFR-NON AF GIBRALTARIAN 30 mL/min/1.73m2 Critically low >=60 [facility] Comment on above: Performed By: #### B MP #### [facility] [address] [place] [address] Dr. Rashmi Nolan Globulin (S) [Mass/Vol] 3.4 g/dL Normal [facility] Comment on above: Performed By: #### B MP #### [facility] [address] [address] [address] Rashmi Nolan Glucose [Mass/Vol] 115 mg/dL Critically high 74-106 [facility] Comment on above: Performed By: #### B MP #### [facility] [address] [address] [address] Rashmi Nolan Potassium [Moles/Vol] 5.1 mmol/L Normal 3.5-5.1 [facility] Comment on above: Performed By: #### B MP #### [facility] [address] [place] [address] Dr. Rashmi Nolan Protein [Mass/Vol] 7.2 g/dL Normal 6.4-8.2 [facility] Comment on above: Performed By: #### B MP #### [facility] [address] [address] [address] Rashmi Nolan Sodium [Moles/Vol] 142 mmol/L Normal 136-145 [facility] Comment on above: Performed By: #### B MP #### [facility] [address] [place] [address] Dr. Rashmi Nolan Urea nitrogen [Mass/Vol] 57.0 mg/dL Critically high 7.0-18.0 [facility] Comment on above: Performed By: #### B MP #### [facility] [address] [place] [address] Dr. Rashmi Nolan Urea nitrogen/Creatinine [Mass ratio] 27.0 mg/mg Normal [facility] Comment on above: Performed By: #### B MP #### [facility] [address] [place] [address] Dr. Rashmi Nolan PROTIMEon 12-11-2022 INR Coag (PPP) [Relative time] 1.95 {INR} Normal [facility] Comment on above: Performed By: #### P T, PTT #### [facility] [address] [place] [address] Dr. Rashmi Nolan INR GUIDELINES SEE BELOW Normal [facility] Comment on above: Result Comment: ENOC RED INR: 2.0 - 3.0 CONDITIONS NOT LISTED BELOW 2.5 - 3.5 FOR PROSTHETIC HEART VALVE REPLACEMENT 2.5 - 3.5 RECURRENT THROMBOSIS Performed By: #### P T, PTT #### [facility] [address] [place] [address] Dr. Rashmi Nolan PT Coag (PPP) [Time] 19.9 s Critically high 9.0-11.6 [facility] Comment on above: Performed By: #### P T, PTT #### [facility] [address] [place] [address] Dr. Rashmi Nolan PTTon 12-11-2022 aPTT Coag (Bld) [Time] 30.3 s Normal 22.3-36.2 [facility] Comment on above: Performed By: #### P T, PTT #### [facility] [address] [place], [place] [address] Dr. Rashmi Nolan Stl Oclt Bldon 12-11-2022 Occult Bld Stl Positive Abnormal Negative [facility] Comment on above: Performed By: #### 2 [id number] #### [facility] [address] [place] [address] TIBC Calculatedon 12-11-2022 Iron binding capacity [Mass/Vol] 417 microgram/dL High 250-400 [facility] Comment on above: Performed By: #### 2 [id number], [id number] ####[facility] [address] [place] [address] Transferrin [Mass/Vol] 298 mg/dL Normal 200-370 [facility] Comment on above: Performed By: #### 2 [id number], [id number], [id number] ####[facility] [address] [place] [address] TYPE AND SCREENon 12-11-2022 TYPE AND SCREEN Negative Normal [facility] Comment on above: Performed By: #### C BC #### [facility] [address] [place], [place] [address] Dr. Rashmi Nolan XR CHEST 1 Von [...] STEPHANIE LIU Date: 2022-12-11 21:04 Normal [facility] Inpatient Patient Summaryon 12-10-2022 Inpatient Patient Summary [address] [id number] Patient Discharge Instructions Name: RY LERNER : 1935 [facility]: [id number] Patient Address: [address] [place] [address] Primary Care Provider: Name: John Nieves MD After you are discharged if you find you have any questions, please, call [phone] ext [phone] to speak to a nurse. 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 If you or anyone you know is experiencing suicidal thoughts, mental health, alcohol and/or drug addiction problems; contact the [facility] 18/02 Crisis Hotline -Text 4HPEN to 490810. If you received any narcotics, sedation, or [...] business decisions or sign any legal documents [facility] would like to thank you for allowing us to assist you with your healthcare needs. The following includes patient education materials and information regarding your injury/illness. RY LERNER has been given the following list of follow-up instructions, prescriptions, and patient education materials: Follow-up Instructions With: Address: When: Ward Zavala[address], [address] [place] [address] Business (1) 12/18/2022 1:30 PM Medications During [...] 3. DO NOT lift heavy objects or installer technician forcefully with your hand 4. Change your [...] or concerns, please call the office at [phone] 7. Follow up as scheduled Viruses or [...] and Prevention Septe (more content not included)... [facility] MAGR Preoperative Recordon 0 12-10-2022 MAGR Preoperative Record MAGR Pre-Op Record Summary Primary Physician: Ward Martinez DO Finalized Date/Time: 12/10/22 15:29:41 Pt. Name: RY LERNER PERRY Barton./Sex: 1935 MALE Med Rec #: [id number] Physician: Ward Martinez DO Financial #: [id number] Pt. Type: D Room/Bed: / Admit/Disch: 12/10/22 [...] Signed By: Maile Palmer RN 12/10/22 15:29 [facility] Patient Handouton 12-10-[address] 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 Keep your hand elevated above your elbow for the first 24 hours after surgery 2. Wiggle your fingers frequently while awake 3. DO NOT lift heavy objects or installer technician forcefully with your hand 4. Change your [...] or concerns, please call the office at [phone] 7. Follow up as scheduled Normal [facility] Historical Records Officeon 11-14-2022 Historical Records Office [id number] #1.00CD:127 Normal [facility] 36on 11-13-2022 36 Potassium was high, renal function is stable. Can stop taking potassium supplement and repeat BMP in one week. Normal [facility] Physician Referralon 023 Physician Referral [id number]#1.00CD:127 Normal [facility] Physician Referral [id number] #1.00CD:127 Normal [facility] MAGNESIUMon 11-06-2022 Magnesium [Mass/Vol] 2.2 mg/dL Normal 1.8-2.4 [facility] Comment on above: Performed By: #### B MP, MG #### [facility] [address] [place] [address] Dr. Rashmi Nolan Office Visiton 11-06-2022 Follow-up visit [id number] Ry Lerner 1935 Date Provider Department Center 11/06/2022 [id number] VALLES [facility] Family History Family history unknown: Yes Level of Service:27601 MD OFFICE/OUTPATIENT ESTABLISHED MOD MDM 30-39 MIN Reason for Visit and Comments: Atrial Fibrillation [80] Hypertension [062017] Normal [facility] PROF CHEM 8 (BAS METB)on Anion gap [Moles/Vol] 15.0 mmol/L Normal [facility] Comment on above: Performed By: #### B MP, MG #### [facility] [address] [address] [address] Rashmi Nolan Calcium [Mass/Vol] 10.0 mg/dL Normal 8.5-10.1 [facility] Comment on above: Performed By: #### B MP, MG #### [facility] [address] [address] [address] Rashmi Nolan Chloride [Moles/Vol] 108 mmol/L Critically high 98-107 [facility] Comment on above: Performed By: #### B MP, MG #### [facility] [address] [address] [address] Rashmi Nolan CO2 [Moles/Vol] 25.4 mmol/L Normal 21.0-32.0 [facility] Comment on above: Performed By: #### B MP, MG #### [facility] [address] [place] [address] Dr. Rashmi Nolan Creatinine [Mass/Vol] 1.98 mg/dL Critically high 0.70-1.30 [facility] Comment on above: Performed By: #### B MP, MG #### [facility] [address] [place] [address] Dr. aRshmi Nolan EGFR-AF GIBRALTARIAN 39 mL/min/1.73m2 Critically low >=60 [facility] Comment on above: Performed By: #### B MP, MG #### [facility] [address] [place] [address] Dr. Rashmi Nolan EGFR-NON AF GIBRALTARIAN 32 mL/min/1.73m2 Critically low >=60 [facility] Comment on above: Performed By: #### B MP, MG #### [facility] [address] [place] [address] Dr. Rashmi Nolan Glucose [Mass/Vol] 99 mg/dL Normal 74-106 [facility] Comment on above: Performed By: #### B MP, MG #### [facility] [address] [place] [address] Dr. Rashmi Nolan Potassium [Moles/Vol] 5.4 mmol/L Critically high 3.5-5.1 [facility] Comment on above: Performed By: #### B MP, MG #### [facility] [address] [address] [address] Rashmi Nolan Sodium [Moles/Vol] 143 mmol/L Normal 136-145 [facility] Comment on above: Performed By: #### B MP, MG #### [facility] [address] [place] [address] Dr. Rashmi Nolan Urea nitrogen [Mass/Vol] 52.0 mg/dL Critically high 7.0-18.0 [facility] Comment on above: Performed By: #### B MP, MG #### [facility] [address] [place] [address] Dr. Rashmi Nolan Urea nitrogen/Creatinine [Mass ratio] 26.3 mg/mg Normal [facility] Comment on above: Performed By: #### B MP, MG #### [facility] [address] [place] [address] Dr. Rashmi Nolan EMG Electromyographyon 10-16 EMG Electromyography [id number] #1.00CD:127 Normal [facility] EMG Electromyography [id number] #1.00CD:127 Normal [facility] Lab Reportson 10-16-2022 Lab Reports [id number]# 1.00CD:127 Normal [facility] VIT B12 AND FOLATEon 023 Cobalamin (Vitamin B12) [Mass/Vol] 514.0 pg/mL Normal 193.0-986.0 [facility] Comment on above: Performed By: #### B MP #### [facility] [address] [place] [address] Dr. Rashmi Nolan FOLATE 10.00 ng/mL Normal 8.60-58.90 [facility] Comment on above: Performed By: #### B MP #### [facility] [address] [place] [address] Dr. Rashmi Nolan CBC AUTO DIFFon 08-16-2022 BASO # 0.0 103/ul Normal 0.0-0.1 [facility] Comment on above: Performed By: #### B MP #### [facility] [address] [address] [address] Rashmi Nolan Basophils/100 WBC (Bld) 0.8 % Normal 0.2-2.0 [facility] Comment on above: Performed By: #### B MP #### [facility] [address] [address] [address] Rashmi Nolan EO # 0.3 103/ul Normal 0.0-0.7 [facility] Comment on above: Performed By: #### B MP #### [facility] [address] [address] [address] Rashmi Nolan Eosinophils/100 WBC (Bld) 7.8 % Critically high 0.9-7.0 [facility] Comment on above: Performed By: #### B MP #### [facility] [address] [place] [address] Dr. Rashmi Nolan Erythrocyte distribution width (RBC) [Ratio] 13.2 % Normal 11.0-15.0 [facility] Comment on above: Performed By: #### B MP #### [facility] [address] [place] [address] Dr. Rashmi Nolan Hematocrit (Bld) [Volume fraction] 33.2 % Critically low 42.0-54.0 [facility] Comment on above: Performed By: #### B MP #### [facility] [address] [place] [address] Dr. Rashmi Nolan Hemoglobin (Bld) [Mass/Vol] 10.8 g/dL Critically low 14.0-18.0 [facility] Comment on above: Performed By: #### B MP #### [facility] [address] [place] [address] Dr. Rashmi Nolan IG # 0.01 10e3/ul Normal 0.00-0.03 [facility] Comment on above: Performed By: #### B MP #### [facility] [address] [place] [address] Dr. Rashmi Nolan IG % 0.3 % Normal 0.0-0.5 [facility] Comment on above: Performed By: #### B MP #### [facility] [address] [address] [address] Rashmi Nolan LYMPH # 1.0 103/ul Critically low 1.2-3.8 [facility] Comment on above: Performed By: #### B MP #### [facility] [address] [place] [address] Dr. Rashmi Nolan Lymphocytes/100 WBC (Bld) 24.7 % Normal 20.5-60.0 [facility] Comment on above: Performed By: #### B MP #### [facility] [address] [place] [address] Dr. Rashmi Nolan MANUAL DIFF REQ NO Normal [facility] Comment on above: Performed By: #### B MP #### [facility] [address] [place] [address] Dr. Rashmi Nolan MCH (RBC) [Entitic mass] 33.0 pg Normal 25.9-34.0 [facility] Comment on above: Performed By: #### B MP #### [facility] [address] [place] [address] Dr. Rashmi Nolan MCHC (RBC) [Mass/Vol] 32.5 g/dL Normal 29.9-35.2 [facility] Comment on above: Performed By: #### B MP #### [facility] [address] [place] [address] Dr. Rashmi Nolan MCV (RBC) [Entitic vol] 101.5 fL Critically high 80.0-94.0 [facility] Comment on above: Performed By: #### B MP #### [facility] [address] [place] [address] Dr. Rashmi Nolan MONO # 0.4 103/ul Normal 0.3-0.8 [facility] Comment on above: Performed By: #### B MP #### [facility] [address] [place] [address] Dr. Rashmi Nolan Monocytes/100 WBC (Bld) 10.7 % Normal 1.7-12.0 [facility] Comment on above: Performed By: #### B MP #### [facility] [address] [address] [address] Rashmi Nolan NEUT # 2.1 103/ul Normal 1.4-6.5 [facility] Comment on above: Performed By: #### B MP #### [facility] [address] [address] [address] Rashmi Nolan Neutrophils/100 WBC (Bld) 55.7 % Normal 43.0-75.0 [facility] Comment on above: Performed By: #### B MP #### [facility] [address] [address] [address] Rashmi Nolan Platelet mean volume (Bld) [Entitic vol] 10.5 fL Normal 9.5-13.5 [facility] Comment on above: Performed By: #### B MP #### [facility] [address] [address] [address] Rashmi Nolan PLT 160 103/ul Normal 150-450 [facility] Comment on above: Performed By: #### B MP #### [facility] [address] [address] [address] Rashmi Nolan RBC 3.27 106/ul Critically low 4.70-6.10 [facility] Comment on above: Performed By: #### B MP #### [facility] [address] [address] [address] Rashmi Nolan WBC 3.8 103/ul Critically low 4.0-11.0 [facility] Comment on above: Performed By: #### B MP #### [facility] [address] [address] [address] Rashmi Nolan LIPID PROFILEon 08-16-2022 CHOL-HDL RATIO NORM SEE BELOW Normal [facility] Comment on above: Result Comment: 3.3 - 4.4 LOW RISK 4.4 - 7.1 AVERAGE RISK 7.1 - 11.0 MODERATE RISK >11.0 HIGH RISK Performed By: #### B MP #### [facility] [address] [address] [address] Rashmi Nolan Cholesterol [Mass/Vol] 166 mg/dL Normal <=200 [facility] Comment on above: Performed By: #### B MP #### [facility] [address] [address] [address] Rashmi Nolan Cholesterol in HDL [Mass/Vol] 42 mg/dL Normal 40-60 [facility] Comment on above: Performed By: #### B MP #### [facility] [address] [address] [address] Rashmi Nolan Cholesterol in LDL [Mass/Vol] 110.4 mg/dL Normal [facility] Comment on above: Performed By: #### B MP #### [facility] [address] [address] [address] Rashmi Nolan Cholesterol.total/Cho lesterol in HDL [Mass ratio] 4.0 {ratio} Normal [facility] Comment on above: Performed By: #### B MP #### [facility] [address] [address] [address] Rashmi Nolan HDL NORMAL > or = 60 mg/dl - LOW CARDIOVASCULAR RISK <40 mg/dl - HIGH CARDIOVASCULAR RISK Normal [facility] Comment on above: Performed By: #### B MP #### [facility] [address] [address] [address] Rashmi Nolan LDL CALC NORMAL SEE BELOW Normal [facility] Comment on above: Result Comment: <100 mg/dl OPTIMAL 100 - 129 mg/dl NEAR OR ABOVE OPTIMAL 130 - 159 mg/dl BORDERLINE HIGH 160 - 189 mg/dl HIGH >190 mg/dl VERY HIGH Performed By: #### B MP #### [facility] [address] [address] [address] Rashmi Nolan Triglyceride [Mass/Vol] 68 mg/dL Normal <=150 [facility] Comment on above: Performed By: #### B MP #### [facility] [address] [address] [address] Rashmi Nolan VLDL CALC 13.6 mg/dL Normal [facility] Comment on above: Performed By: #### B MP #### [facility] [address] [address] [address] Rashmi Nolan PROF 14(COMP METB)on 023 Albumin [Mass/Vol] 3.9 g/dL Normal 3.4-5.0 [facility] Comment on above: Performed By: #### B MP #### [facility] [address] [place] [address] Dr. Rashmi Nolan Albumin/Globulin [Mass ratio] 1.1 {ratio} Normal [facility] Comment on above: Performed By: #### B MP #### [facility] [address] [address] [address] Rashmi Nolan ALP [Catalytic activity/Vol] 190 U/L Critically high 46-116 [facility] Comment on above: Performed By: #### B MP #### [facility] [address] [place] [address] Dr. Rashmi Nolan ALT [Catalytic activity/Vol] 15 U/L Critically low 16-63 [facility] Comment on above: Performed By: #### B MP #### [facility] [address] [address] [address] Rashmi Nolan Anion gap [Moles/Vol] 15.2 mmol/L Normal [facility] Comment on above: Performed By: #### B MP #### [facility] [address] [place] [address] Dr. Rashmi Nolan AST [Catalytic activity/Vol] 17 U/L Normal 15-37 [facility] Comment on above: Performed By: #### B MP #### [facility] [address] [place] [address] Dr. Rashmi Nolan Bilirubin [Mass/Vol] 0.4 mg/dL Normal 0.2-1.0 [facility] Comment on above: Performed By: #### B MP #### [facility] [address] [place] [address] Dr. Rashmi Nolan Calcium [Mass/Vol] 10.0 mg/dL Normal 8.5-10.1 [facility] Comment on above: Performed By: #### B MP #### [facility] [address] [place] [address] Dr. Rashmi Nolan Chloride [Moles/Vol] 108 mmol/L Critically high 98-107 [facility] Comment on above: Performed By: #### B MP #### [facility] [address] [address] [address] Rashmi Nolan CO2 [Moles/Vol] 25.8 mmol/L Normal 21.0-32.0 [facility] Comment on above: Performed By: #### B MP #### [facility] [address] [address] [address] Rashmi Nolan Creatinine [Mass/Vol] 1.78 mg/dL Critically high 0.70-1.30 [facility] Comment on above: Performed By: #### B MP #### [facility] [address] [address] [address] Rashmi Nolan EGFR-AF GIBRALTARIAN 44 mL/min/1.73m2 Critically low >=60 [facility] Comment on above: Performed By: #### B MP #### [facility] [address] [address] [address] Rashmi Nolan EGFR-NON AF GIBRALTARIAN 36 mL/min/1.73m2 Critically low >=60 [facility] Comment on above: Performed By: #### B MP #### [facility] [address] [address] [address] Rashmi Nolan Globulin (S) [Mass/Vol] 3.7 g/dL Normal [facility] Comment on above: Performed By: #### B MP #### [facility] [address] [address] [address] Rashmi Nolan Glucose [Mass/Vol] 100 mg/dL Normal 74-106 [facility] Comment on above: Performed By: #### B MP #### [facility] [address] [address] [address] Rashmi Nolan Potassium [Moles/Vol] 5.0 mmol/L Normal 3.5-5.1 [facility] Comment on above: Performed By: #### B MP #### [facility] [address] [address] [address] Rashmi Nolan Protein [Mass/Vol] 7.6 g/dL Normal 6.4-8.2 [facility] Comment on above: Performed By: #### B MP #### [facility] [address] [address] [address] Rashmi Nolan Sodium [Moles/Vol] 144 mmol/L Normal 136-145 [facility] Comment on above: Performed By: #### B MP #### [facility] [address] [address] [address] Rashmi Nolan Urea nitrogen [Mass/Vol] 52.0 mg/dL Critically high 7.0-18.0 [facility] Comment on above: Performed By: #### B MP #### [facility] [address] [address] [address] Rashmi Nolan Urea nitrogen/Creatinine [Mass ratio] 29.2 mg/mg Normal [facility] Comment on above: Performed By: #### B MP #### [facility] [address] [place] [address] Dr. Rashmi Nolan Office Visiton 07-24-2022 Follow-up visit [id number] Ry Lerner 1935 M Date Provider Department Center 07/24/2022 DomoniqueNICHOLROYAL [facility] No family history on file Level of Service:20886 MD OFFICE/OUTPATIENT ESTABLISHED LOW MDM 20-29 MIN Reason for Visit and Comments: Chest Pain [965437] Normal [facility] PROF CHEM 8 (BAS METB)on Anion gap [Moles/Vol] 13.3 mmol/L Normal [facility] Comment on above: Performed By: #### C BC #### [facility] [address] [place] [address] Dr. Rashmi Nolan Calcium [Mass/Vol] 10.1 mg/dL Normal 8.5-10.1 [facility] Comment on above: Performed By: #### C BC #### [facility] [address] [place] [address] Dr. Rashmi Nolan Chloride [Moles/Vol] 104 mmol/L Normal 98-107 [facility] Comment on above: Performed By: #### C BC #### [facility] [address] [address] [address] Rashmi Nolan CO2 [Moles/Vol] 28.7 mmol/L Normal 21.0-32.[address] [facility] Comment on above: Performed By: #### C BC #### [facility] [address] [place] [address] Dr. Rashmi Nolan Creatinine [Mass/Vol] 1.87 mg/dL Critically high 0.70-1.30 [facility] Comment on above: Performed By: #### C BC #### [facility] [address] [address] [address] Rashmi Nolan EGFR-AF GIBRALTARIAN 42 mL/min/1.73m2 Critically low >=60 [facility] Comment on above: Performed By: #### C BC #### [facility] [address] [place] [address] Dr. Rashmi Nolan EGFR-NON AF GIBRALTARIAN 34 mL/min/1.73m2 Critically low >=60 [facility] Comment on above: Performed By: #### C BC #### [facility] [address] [place] [address] Dr. Rashmi Nolan Glucose [Mass/Vol] 101 mg/dL Normal 74-106 [facility] Comment on above: Performed By: #### C BC #### [facility] [address] [place] [address] Dr. Rashmi Nolan Potassium [Moles/Vol] 5.0 mmol/L Normal 3.5-5.1 [facility] Comment on above: Performed By: #### C BC #### [facility] [address] [place] [address] Dr. Rashmi Nolan Sodium [Moles/Vol] 141 mmol/L Normal 136-145 [facility] Comment on above: Performed By: #### C BC #### [facility] [address] [address] [address] Rashmi Nolan Urea nitrogen [Mass/Vol] 41.0 mg/dL Critically high 7.0-18.0 [facility] Comment on above: Performed By: #### C BC #### [facility] [address] [address] [address] Rashmi Nolan Urea nitrogen/Creatinine [Mass ratio] 21.9 mg/mg Normal [facility] Comment on above: Performed By: #### C BC #### [facility] [address] [place] [address] Dr. Rashmi Nolan COVID/FLU RT-PCRon 2 SARS-CoV-2 (COVID-19) RNA ETELVINA+probe Ql (Unsp spec) Positive [facility] [employer] Other COVID/FLU RT-PCR Negative [facility] [employer] Other BNPon 02-15-2022 Natriuretic peptide B (Bld) [Mass/Vol] 1653.0 pg/mL Normal <=1,800.0 [facility] Comment on above: Performed By: #### C BC #### [facility] [address] [place] [address] Dr. Rashmi Nolan PROF CHEM 8 (BAS METB)on Anion gap [Moles/Vol] 15.8 mmol/L Normal [facility] Comment on above: Performed By: #### C BC #### [facility] [address] [address] [address] Rashmi Nolan Calcium [Mass/Vol] 9.6 mg/dL Normal 8.5-10.1 [facility] Comment on above: Performed By: #### C BC #### [facility] [address] [address] [address] Rashmi Nolan Chloride [Moles/Vol] 108 mmol/L Critically high 98-107 [facility] Comment on above: Performed By: #### C BC #### [facility] [address] [address] [address] Rashmi Nolan CO2 [Moles/Vol] 24.2 mmol/L Normal 21.0-32.0 [facility] Comment on above: Performed By: #### C BC #### [facility] [address] [place] [address] Dr. Rashmi Nolan Creatinine [Mass/Vol] 1.87 mg/dL Critically high 0.70-1.30 [facility] Comment on above: Performed By: #### C BC #### [facility] [address] [address] [address] Rashmi Nolan EGFR-AF GIBRALTARIAN 42 mL/min/1.73m2 Critically low >=60 [facility] Comment on above: Performed By: #### C BC #### [facility] [address] [address] [address] Rashmi Nolan EGFR-NON AF GIBRALTARIAN 34 mL/min/1.73m2 Critically low >=60 [facility] Comment on above: Performed By: #### C BC #### [facility] [address] [address] [address] Rashmi Nolan Glucose [Mass/Vol] 107 mg/dL Critically high 74-106 [facility] Comment on above: Performed By: #### C BC #### [facility] [address] [address] [address] Rashmi Nolan Potassium [Moles/Vol] 5.0 mmol/L Normal 3.5-5.1 [facility] Comment on above: Performed By: #### C BC #### [facility] [address] [address] [address] Rashmi Nolan Sodium [Moles/Vol] 143 mmol/L Normal 136-145 [facility] Comment on above: Performed By: #### C BC #### [facility] [address] [address] [address] Rashmi Nolan Urea nitrogen [Mass/Vol] 28.0 mg/dL Critically high 7.0-18.0 [facility] Comment on above: Performed By: #### C BC #### [facility] [address] [address] [address] Rashmi Nolan Urea nitrogen/Creatinine [Mass ratio] 15.0 mg/mg Normal [facility] Comment on above: Performed By: #### C BC #### [facility] [address] [address] [address] Rashmi Nolan APTTon 10-13-2021 aPTT Coag (Bld) [Time] 36.7 s High 25.0-35.0 [facility] Comment on above: Result Comment: ALL [...] PURPOSE. Performed By: #### 5 0103 #### [facility] [address] BASIC METABOLIC PANELon 03- Calcium [Mass/Vol] 9.7 mg/dL Normal 8.6-10.3 [facility] Comment on above: Performed By: #### 0 0071, 08356, 56811, 84492 #### [facility] [address] [facility] [place] [address], [facility] Chloride [Moles/Vol] 108 mmol/L High 98-107 [facility] Comment on above: Performed By: #### 0 0071, 08790, 37216, 62409 #### [facility] [address] [facility] [place] [address], [facility] CO2 [Moles/Vol] 23 mmol/L Normal 21-31 [facility] Comment on above: Performed By: #### 0 0071, 27603, 35044, 68573 #### [facility] [address] [facility] [place] [place] [address], [facility] Creatinine [Mass/Vol] 1.98 mg/dL High 0.70-1.30 [facility] Comment on above: Performed By: #### 0 0071, 56476, 42196, 14400 #### [facility] [address] [facility]. [address] eGFR- 39 ml/min/1.73sq m Abnormal >60 [facility] Comment on above: Result Comment: Calc ulation may not be valid for patients over 70 years Performed By: #### 0 0071, 37811, 54086, 25822 #### [facility] [address] [place] [address], [facility] eGFR- non- 32 ml/min/1.73sq m Abnormal >60 [facility] Comment on above: Result Comment: Calc ulation may not be valid for patients over 70 years Performed By: #### 0 0071, 17924, 60072, 74239 #### [facility] [address] [place] [address], [facility] Glucose [Mass/Vol] 88 mg/dL Normal 70-100 [facility] Comment on above: Performed By: #### 0 0071, 78349, 05568, 88216 #### [facility] [address] [place] [address], [facility] Potassium [Moles/Vol] 4.8 mmol/L Normal 3.5-5.1 [facility] Comment on above: Performed By: #### 0 0071, 23491, 68823, 36309 #### [facility] [address] [place] [address], [facility] Sodium [Moles/Vol] 138 mmol/L Normal 136-145 [facility] Comment on above: Performed By: #### 0 0071, 83085, 17081, 18901 #### [facility] [address] [place] [address], [facility] Urea nitrogen [Mass/Vol] 46 mg/dL High 7-25 [facility] Comment on above: Performed By: #### 0 0071, 07317, 72930, 44479 #### [facility] [address] [place] [address], [facility] BNP EDon 10-13-2021 Natriuretic peptide B (Bld) [Mass/Vol] 428 pg/mL High 0-100 [facility] Comment on above: Result Comment: Give n the appropriate clinical setting a BNP result of >100 pg/mL indicates congestive heart failure. Performed By: #### 3 0935 #### [facility] [address] [place] [address], [facility] CBC W/DIFFon 10-13-2021 ABS IMM GRANS 0.0 10*3/uL Normal 0.0-0.2 [facility] Comment on above: Performed By: #### 5 0103 #### [facility] [address] [place] [address], [facility] ABS NEUTROPHILS 2.8 10*3/uL Normal 1.6-7.[address] [facility] Comment on above: Performed By: #### 5 0103 #### [facility] [address] [place] [address], [facility] Basophils (Bld) [#/Vol] 0.0 10*3/uL Normal 0.0-0.2 [facility] Comment on above: Performed By: #### 5 0103 #### [facility] [address] [place] [address], [facility] Basophils/100 WBC (Bld) 0.5 % Normal 0.0-1.0 [facility] Comment on above: Performed By: #### 5 0103 #### [facility] [address] [place] [address], [facility] Eosinophils (Bld) [#/Vol] 0.3 10*3/uL Normal 0.0-0.5 [facility] Comment on above: Performed By: #### 5 0103 #### [facility] [address] [place] [address], [facility] Eosinophils/100 WBC (Bld) 7.4 % High 0.0-6.0 [facility] Comment on above: Performed By: #### 5 0103 #### [facility] [address] [place] [address], [facility] Erythrocyte distribution width (RBC) [Ratio] 13.9 % Normal 11.5-15.0 [facility] Comment on above: Performed By: #### 5 0103 #### [facility] [address] [facility] [place] [address], [facility] Hematocrit (Bld) [Volume fraction] 33.5 % Low 39.0-50.0 [facility] Comment on above: Performed By: #### 5 0103 #### [facility] [address] [facility] [place] [address], [facility] Hemoglobin (Bld) [Mass/Vol] 11.4 g/dL Low 13.0-17.0 [facility] Comment on above: Performed By: #### 5 0103 #### [facility] [address] [facility] [place] [address], [facility] IMMATURE GRANS 0.2 % Normal 0.0-1.0 [facility] Comment on above: Performed By: #### 5 0103 #### [facility] [address] [facility] [place] [address], [facility] Lymphocytes (Bld) [#/Vol] 0.9 10*3/uL Low 1.2-4.0 [facility] Comment on above: Performed By: #### 5 0103 #### [facility] [address] [place] [address], [facility] Lymphocytes/100 WBC (Bld) 20.1 % Normal 20.0-45.0 [facility] Comment on above: Performed By: #### 5 0103 #### [facility] [address] [facility] [place] [address], [facility] MCH (RBC) [Entitic mass] 33.1 pg High 27.0-33.0 [facility] Comment on above: Performed By: #### 5 3 #### [facility] [address] [place] [id number], [facility] MCHC (RBC) [Mass/Vol] 34.0 g/dL Normal 32.0-35.0 [facility] Comment on above: Performed By: #### 5 102 #### [facility] [address] [facility] [place] [address], [facility] MCV (RBC) [Entitic vol] 97.4 fL Normal 82.0-98.0 [facility] Comment on above: Performed By: #### 5 102 #### [facility] [address] [facility] [place] [address], [facility] Monocytes (Bld) [#/Vol] 0.4 10*3/uL Normal 0.1-1.0 [facility] Comment on above: Performed By: #### 5 102 #### [facility] [address] [facility]. [address] MONOS 8.4 % Normal 5.0-12.0 [facility] Comment on above: Performed By: #### 5 102 #### [facility] [address] [facility] [place] [address], [facility] Neutrophils/100 WBC (Bld) 63.4 % Normal 40.0-72.0 [facility] Comment on above: Performed By: #### 5 102 #### [facility] [address] [place] [address], [facility] Nucleated RBC/100 WBC (Bld) [Ratio] 0 % Normal 0-0 [facility] Comment on above: Performed By: #### 5 102 #### [facility] [address] [facility] [place] [address], [facility] PLAT CNT 116 10*3/uL Low 150-400 [facility] Comment on above: Performed By: #### 5 102 #### [facility] [address] [facility] [place] [address], [facility] RBC (Bld) [#/Vol] 3.44 10*6/uL Low 4.20-5.70 [facility] Comment on above: Performed By: #### 5 0103 #### [facility] [address] [facility]. [address] WBC (Bld) [#/Vol] 4.43 10*3/uL Normal 4.00-10.60 [facility] Comment on above: Performed By: #### 5 0103 #### [facility] [address] [facility]. [address] Cardiovascular Lab Reporton 10-13-2021 Cardiovascular Lab Report [facility] Patient Name: [facility] MR #: [id number] Physician: Royal Gandara MD Department of Service Date: 10/13/2021 Medicine Birthdate: 1935 Division of Room #: [facility] Cardiology Adult Cardiovascular Services [facility] [address] [address] Cardiovascular Laboratory Report PACEMAKER IMPLANT PROCEDURE NOTE DATE OF PROCEDURE: 10/13/2021 PERFORMING PHYSICIAN: Dr. Royal Gandara CONSENT: Patient LOCATION: EP Lab PROCEDURE PERFORMED: 1. Implantation of pacemaker ([employer]) 2. Ultrasound guided venous access INDICATIONS: [...] previously recommended a pacemaker, however, presented to [place] ED with a ventricular rate in the 30s. He was subsequently transferred over to [facility] ED for a pacemaker placement. Patient was [...] using modified seldinger technique using a 5 Anguillan micro-puncture needle on one occasion and 0.35 wire was placed. Local infiltration of 1% Lidocaine was performed, and an incision was created in the left upper chest. Dissection was then performed using cautery down to the fascial plane above the muscle. A small pocket was created for the device. 6 Anguillan Safesheaths were placed over the wire. An active fixation [employer] pacing lead was then delivered through the 6Fsheath to the right ventricle. After confirmation of lead position on orthogonal views (HANSEN and SWEDISH) to confirm septal position, the screw was [...] immediate procedural complications were noted. Device info: [employer] Accolade MRI EL Model# L331 Serial# [id number] RV lead: Model# [id number] [id number] (59cms) Serial# [id number] Sensin.4mV Threshold: 0.6V@0.4ms Impedance: 598 Ohms POST [...] Gandara MD Date Trans: 10/13/2021 10:46 A/oscar [id number] cc: Jason Silva M.D. [address] [place] [id number] Normal [facility] FRESH FROZEN PLASMA 1 UNITon 10-13-2021 PRODUCT CODE 1 E2701 Normal [facility] [facility] Comment on above: Order Comment: INR: 2.88 ,PTT: 36.7 at the time of order ;Indication: Other pacemaker placement Performed By: #### 8 7001 #### [facility] [address] PRODUCT STATUS 1 RE Normal [facility] Comment on above: Order Comment: INR: 2.88 ,PTT: 36.7 at the time of order ;Indication: Other pacemaker placement Result Comment: Resu lt changed by IF on 10/19/2021 01:00. The previous value was XM. Performed By: #### 8 7001 #### [facility] [address] [place] [address], [facility] UNIT ABO 1 O Normal [facility] Comment on above: Order Comment: INR: 2.88 ,PTT: 36.7 at the time of order ;Indication: Other pacemaker placement Performed By: #### 8 7001 #### [facility] [address] [place] [address], [place] UNIT ID 1 [id number] Normal [facility] Comment on above: Order Comment: INR: 2.88 ,PTT: 36.7 at the time of order ;Indication: Other pacemaker placement Performed By: #### 8 7001 #### [facility] [address] [place] [address], [facility] UNIT RH 1 Negative Normal [facility] Comment on above: Order Comment: INR: 2.88 ,PTT: 36.7 at the time of order ;Indication: Other pacemaker placement Performed By: #### 8 7001 #### [facility] [address] [place] [address], [facility] LIVER BATTERYon 10-13-2021 Albumin [Mass/Vol] 4.0 g/dL Normal 3.5-5.7 [facility] Comment on above: Performed By: #### 0 0071, 27119, 68595, 37108 #### [facility] [address] [place] [address], [facility] ALKALINE PHOSPH 137 IU/L High 34-104 [facility] Comment on above: Performed By: #### 0 0071, 06679, 64752, 15060 #### [facility] [address] [place] [address], [place] ALT [Catalytic activity/Vol] 29 U/L Normal 7-52 [facility] Comment on above: Performed By: #### 0 0071, 50734, 34569, 34639 #### [facility] [address] [place] [address], [place] AST [Catalytic activity/Vol] 22 U/L Normal 13-39 [facility] Comment on above: Performed By: #### 0 0071, 78098, 79994, 85439 #### [facility] [address] [place] [address], [place] Bilirubin [Mass/Vol] 0.7 mg/dL Normal 0.3-1.0 [facility] Comment on above: Performed By: #### 0 0071, 65580, 79774, 32029 #### [facility] [address] Bilirubin.direct [Mass/Vol] 0.1 mg/dL Normal 0.0-0.2 [facility] Comment on above: Performed By: #### 0 0071, 51312, 75292, 53323 #### [facility] [address] [place] [id number], [facility] Protein [Mass/Vol] 6.3 g/dL Normal 6.0-8.3 [facility] Comment on above: Performed By: #### 0 0071, 97197, 17211, 50633 #### [facility] [address] [facility] MAGNESIUM BLOODon 10-13-2021 Magnesium [Mass/Vol] 2.0 mg/dL Normal 1.9-2.7 [facility] Comment on above: Performed By: #### 0 0071, 29126, 88500, 66599 #### [facility] [address] [facility] POC SARS COV2 ANTIGEN NEGATI VEon 10-13-2021 POC SARS COV2 ANTIGEN NEG Negative Normal NEGATIVE [facility] Comment on above: Result Comment: Nega tive [...] antigen from SARS-CoV-2 in direct nasopharyngeal swab (CASE REVIEWER) specimens from individuals who are suspected of [...] Accreditation. Performed By: #### 3 2044 #### [address] [address], [facility] PORTABLE CHEST 1 VIEWon 09-26 PORTABLE CHEST 1 VIEW [facility] Department of Radiology [address] [place] [id number] Patient Name: RY LERNER : 1935 Sex: M Age: Race: White Pt. Location: [facility] Patient Status: E Ordered Date: 10/13/2021 4:40:00 [...] report. Electronically signed: Mark Aguilar. Transcribed by: [email or web address], User Resident: HUMBLE HERANNDEZ Electronically Signed by: MARK AGUILAR @ 10/13/2021 05:55 AM I personally read this/these film(s) with this resident Normal [facility] Comment on above: Order Comment: evalu ate for Infiltrates PROTHROMBIN TIMEon 2 INR Coag (PPP) [Relative time] 2.88 {INR} High 0.91-1.16 [facility] Comment on above: Result Comment: ACCC P [...] RANGE. CHEST 1995;108:231S-246S. Performed By: #### 5 0272, [address]384 #### [address] PT Coag (PPP) [Time] 30.0 s High 12.3-14.8 [facility] Comment on above: Result Comment: ALL RESULTS MUST BE INTERPRETED WITH RESPECT TO BLOOD DRAWING ARTIFACT OR DILUTION ERROR OF ANTICOAGULANT AT THE TIME OF SAMPLING. Performed By: #### 5 7041, 73691 #### [facility] [address] TROPONIN-Ion 10-13-2021 Troponin I.cardiac [Mass/Vol] 0.05 ng/mL High 0.00-0.04 [facility] Comment on above: Result Comment: REFE RENCE RANGES: 0.00 - 0.04 ng/ml NORMAL 0.05 - 0.50 ng/ml INDETERMINATE > 0.50 ng/ml CONSISTENT WITH AN M.I. Performed By: #### 0 0071, 23045, 50005, 36556 #### [facility] [address] [place] [address], [facility] TYPE AND SCREENon 10-13-2021 ABO INTERPRETATION O Normal [facility] Comment on above: Performed By: #### 5 0103 #### [facility] [address] [place] [address], [facility] RH INTERPRETATION Positive Normal [facility] Comment on above: Performed By: #### 5 0103 #### [facility] [address] [place], [place] [id number] [place] [address] Vital Signs Date Time Vital Sign Value Performing Clinician Facility 06-02-2022 14:50-0400 Body height 182.88 cm Sonja Aden Other [facility] Other 06-02-2022 14:50-0400 Body mass index (BMI) [Ratio] 29.73 kg/m2 Sonja Aden Other [facility] Other 06-02-2022 14:50-0400 Body temperature 99.6 [degF] Sonja Aden Other [facility] Other 06-02-2022 14:50-0400 Body weight 99.43 kg Sonja Aden Other [facility] Other 06-02-2022 14:50-0400 Diastolic blood pressure 54 mm[Hg] Sonja Aden Other [facility] Other 06-02-2022 14:50-0400 Respiratory rate 18 /min Sonja Aden Other [facility] Other 06-02-2022 14:50-0400 SaO2% (BldA) [Mass fraction] 95 % Sonja Aden Other [facility] Other 06-02-2022 14:50-0400 Systolic blood pressure 118 mm[Hg] Sonja Aden Other [facility] Other Encounters Encounter Date Encounter Type Care Provider Facility Start: 10-02-2023 ambulatory Sheng L Yolis Facility: [facility] Start: 09-04-2023 ambulatory Sheng L Yolis Facility: [facility] Start: 09-03-2023 End: 09-04-2023 ambulatory Sheng L Yolis Facility:[facility] [place] [facility] Start: 08-29-2023 End: 08-29-2023 ambulatory ADDIE A FELTER Not Available Start: 08-29-2023 Bam[employer]anoVibronixo NeoSystemsheet Addie A Fel ter AUTOMOTIVE SERVICE ADVISOR-ROLL PLUGGER Work Phone: [facility] Start: 08-29-2023 [employer] Addie A Fel ter AUTOMOTIVE SERVICE ADVISOR-ROLL PLUGGER Work Phone: [facility] Start: 08-29-2023 End: 08-29-2023 Office outpatient new 30 minutes Addie A Felter AUTOMOTIVE SERVICE ADVISOR-ROLL PLUGGER Work Phone: [facility] Comment on above: Other atopic dermati tis (Primary Dx); Seborrheic keratosis Start: 08-28-2023 End: 08-29-2023 ambulatory John Nieves Facility:[facility] [place] [facility] Start: 07-03-2023 End: 07-04-2023 ambulatory Sheng L Yolis Facility:[facility] [place] [facility] Start: 07-02-2023 End: 07-02-[address] [facility] Start: 05-15-2023 End: 05-15-2023 ambulatory [facility] Start: 02-08-2023 End: 02-08-2023 ambulatory [facility] Start: 01-22-2023 End: 01-23-2023 ambulatory Sheng L Yolis Facility:[facility] Start: 01-22-2023 End: 01-22-2023 Lab Drop off Sheng L Yolis [facility] Start: 12-31-2022 End: 12-31-2022 ambulatory Ward Riki Antwerp Facility:[facility] Start: 12-25-2022 End: 12-26-[address] JASON SILVA . Facility: Start: 12-21-2022 End: 12-22-2022 ambulatory Sheng L Yolis Facility:[facility] Mague morfin Start: 12-17-2022 End: 01-16-2023 ambulatory Sheng L Yolis Facility:[id number] Start: 12-12-2022 End: 12-14-2022 Evaluation and management of inpatient DR JASON SILVA . Facility: Start: 12-11-2022 End: 12-12-2022 ambulatory Sheng L Yolis Facility:[facility] Start: 12-11-2022 End: 12-11-2022 Lab Drop off Sheng L Yolis [facility] Start: 12-10-2022 End: 12-10-2022 ambulatory [facility] Facility:[facility] Start: 11-27-2022 End: 11-27-[address] [facility] Start: 11-26-2022 End: 12-26-2022 ambulatory SHAIKH Joe JUNIOR Facility: Start: 11-06-2022 End: 11-07-[address] JASON SILVA . Facility:[facility] Start: 11-06-2022 End: 11-06-2022 ambulatory SOLIS VALLES [facility] Start: 10-29-2022 End: 11-23-2022 ambulatory HAYWARD H FAWWAD Facility:[facility] Start: 10-09-2022 ambulatory Sheng Rey Facility:[facility] Start: 09-26-2022 End: 10-26-2022 ambulatory HAYWARD H FAWWAD Facility:[facility] Start: 08-29-2022 End: 09-26-2022 ambulatory HAYWARD H FAWWAD Facility:[facility] Start: 08-22-2022 End: 08-23-[address] JASON SILVA . Facility:[facility] Start: 08-16-2022 End: 08-17-[address] JASON SILVA . Facility:[facility] Start: 07-30-2022 End: 08-29-2022 ambulatory H FAWWAD Facility:[facility] Start: 07-24-2022 End: 07-25-2022 ambulatory ROYAL GANDARA Facility:[facility] Start: 07-24-2022 End: 07-24-2022 ambulatory ROYAL [facility] Start: 06-28-2022 End: 07-29-2022 ambulatory SHAIKH Joe APPLED Facility:[facility] Start: 06-02-2022 End: 06-02-2022 ambulatory Sonja Aden Other [facility] Other Start: 06-02-2022 Office outpatient ne w 30 minutes Sonja Aden [facility] Start: 05-29-2022 End: 06-27-2022 ambulatory HAYWARD H FAWWAD Facility:[facility] Start: 04-29-2022 End: 05-28-2022 ambulatory HAYWARD H FAWWAD Facility:[facility] Start: 03-29-2022 End: 04-28-2022 ambulatory HAYWARD H FAWWAD Facility:[facility] Start: 03-20-2022 End: 03-20-2022 ambulatory UNKNOWN PROVIDER Facility:[facility] Start: 02-26-2022 End: 03-28-2022 ambulatory HAYWARD H FAWWAD Facility:[facility] Start: 02-15-2022 End: 02-16-2022 ambulatory KELLY BONILLA Facility:[facility] Start: 01-26-2022 End: 02-23-2022 ambulatory SHAIKH Joe JUNIOR Facility:[facility] Start: 10-13-2021 End: 10-13-2021 ambulatory UNKNOWN PROVIDER Facility:[facility] Start: 10-13-2021 End: 10-13-2021 Emergency department patient visit PHYSICIAN UNKNOWN Facility:[facility] Procedures Date Procedure Procedure Detail Performing Clinician [...] 12-10-2022 Decompression of med lluvia nerve Sheng Molinaab Comment on above: Left Start: 08-22-[address] JASON MENDOZAT . Comment on above: Performed By: #### B MP #### [facility] [address] [place] [address] [address] Rashmi Nolan Start: 10-13-2021 Antibody screen PHYSICI AN UNKNOWN Comment on above: Performed By: #### 5 0103 #### [facility] [address] Start: 09-26-2021 Cardiac pacemaker, d evice (physical object) Sheng Yolis Start: 02-26-2011 Colonoscopy Sheng Jessea b Start: 07-29-1995 TURP syndrome (disorder) Sheng Yolis Start: 07-29-1993 Herniated structure (morphologic abnormality) Sheng Rey Tonsillectomy and adenoidectomy Sheng Yolis Plan of Treatment Date Care Activity Detail Author Start: 08-29-2023 End: 08-29-2023 Patient encounter procedure 08/29/2023 1:00 PM EST Office Visit [facility] [address] [place] [id number] Addie Huston APRN-ROLL PLUGGER [address] [place] [address] Arrived [facility] Comment on above: Arrived Immunizations Immunization Date Immunization Notes Care Provider Fa cili 05-02-2022 influenza virus vaccine, unspecified formulation Sheng Yolis [facility] 05-02-2022 Seasonal trivalent influenza vaccine, adjuvanted, preservative free Addie Huston AUTOMOTIVE SERVICE ADVISOR-ROLL PLUGGER Work Phone: [facility] 09-17-2020 SARS-CoV-2 (COVID-19 ) mRNA BNT-162b2 vax Sheng Yolis [facility] Comment on above: Result Comment: 2022: [id number] 08-27-2020 SARS-CoV-2 (COVID-19 ) mRNA BNT-162b2 vax Sheng Yolis [facility] Comment on above: Result Comment: 2022: [id number] 06-13-2020 influenza virus vaccine, unspecified formulation Sheng Yolis [facility] 06-01-2019 influenza virus vaccine, unspecified formulation Sheng Yolis [facility] 04-14-2018 influenza virus vaccine, unspecified formulation Sheng Yolis [facility] 04-22-2017 influenza virus vaccine, unspecified formulation Sheng Yolis [facility] 05-01-2016 influenza virus vaccine, unspecified formulation Sheng Yolis [facility] 06-02-2015 influenza virus vaccine, unspecified formulation Sheng Yolis [facility] 05-31-2014 influenza virus vaccine, unspecified formulation Sheng Yolis [facility] 06-02-2013 influenza virus vaccine, unspecified formulation Sheng Yolis [facility] 05-29-2005 influenza, whole Sheng Yolis [facility] Payers Date Payer Category Payer Unknown [employer] 1999 Medicare MEDICARE MEDICAR E PART B [id number] 1999-[place] [address] Medicare [id number] 1959 Medicare [id number] 1935 Unknown [id number] 2.16.840.1.405326.3.579.2.647 1934 Unknown [id number] 2.16.840.1.409406.3.579.2.732 1934 Unknown [id number] 2.16.840.1.407693.3.579.2.732 1934 Unknown [id number] 2.16.840.1.271893.3.579.2.718 1934 Unknown [id number] 2.16.840.1.815685.3.579.2.718 1934 Unknown [id number] 2.16.840.1.179319.3.579.2.593 1934 Unknown [id number] 2.16.840.1.321626.3.579.2.593 1934 Unknown [id number] 2.16.840.1.569155.3.579.2.593 1934 Unknown [id number] 2.16.840.1.330843.3.579.2.593 1934 Unknown [id number] 2..840.1.349264.3.579.2.593 1934 Unknown [id number] 2..840.1.528069.3.579.2.593 1934 Unknown [id number] 2..840.1.937670.3.579.2.593 1934 Unknown [id number] ..840.1.616442.3.579.2.593 1934 Unknown [id number] 2.840.1.096332.3.579.2.593 1934 Unknown [id number] 2.840.1.945381.3.579.2.593 1934 Unknown [id number] 2.840.1.310927.3.579.2.593 1934 Unknown [id number] .840.1.909770.3.579.2.593 1934 Unknown [id number] .840.1.726453.3.579.2.593 1934 Unknown [id number] .840.1.322138.3.579.2.593 1934 Unknown [id number] .840.1.288129.3.579.2.593 1934 Unknown [id number] .840.1.439996.3.579.2.593 1934 Unknown [id number] 2.16.840.1.493085.3.579.2.593 1934 Unknown [id number] 2.840.1.523444.3.579.2.593 1934 Unknown [id number] 2.16.840.1.705771.3.579.2.1259 1934 Unknown [id number] 2.16.840.1.170059.3.579.2.727 1934 Unknown [id number] 2.16.840.1.398809.3.579.2.727 1934 Unknown [id number] 2.16.840.1.251519.3.579.2.727 1934 Unknown [id number] 2.16.840.1.133539.3.579.2.727 1934 Unknown [id number] 2.16.840.1.287847.3.579.2.727 1934 Unknown [id number] 2.16.840.1.288191.3.579.2.727 1934 Unknown [id number] 2.16.840.1.526440.3.579.2.727 1934 Unknown [id number] 2.16.840.1.892538.3.579.2.727 1934 Unknown [id number] 2.16.840.1.137155.3.579.2.727 1934 Unknown [id number] 2.16.840.1.447972.3.579.2.727 Social History Date Type Detail Facility Unknown if ever smoked [facility] Start: 02-05-2023 End: 08-29-2023 Sex Assigned At [facility] Start: 12-11-2022 End: 12-13-2022 Tobacco smoking status Never smoked tobacco (finding) [facility] Tobacco smoking status Never [facility] Comment on above: Quit in 2002 Start: 01-22-2023 Tobacco smoking status Ex-smoker (finding) [facility] Comment on above: Quit in 2002 Start: 05-18-2023 Tobacco use and exposure Smokeless tobacco non-user [facility] Start: 02-05-2023 End: 08-29-2023 Alcohol intake Current drinker of alcohol (finding) [facility] Start: 02-05-2023 End: 08-29-2023 History of Social function [facility] Start: 1935 Sex Assigned At Not on file N [facility] Clinical Notes 10-13-2021 to 08-29-2023 Addie Huston, AUTOMOTIVE SERVICE ADVISOR-ROLL PLUGGER - 08/29/2023 1:00 PM EST Note Date [...] any new/changing lesions documented in this encounter [facility] 05-15-2023 Note [place] [facility]iology Consul t Note Reason for visit: [...] on Warfarin, 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 Device check performed on 06/12/2022 shows thresholds to be good. he is in persistent A. Fib and underwent a single-chamber pacemaker. with [employer] on 10/13/2021 and paced 65% Echocardiogram [...] stress test about 12 years ago in [place], and was in hospital with noted a fib currently on coumadin anticoagulation. Echocardiogram performed on 11/30/2020 at [facility] shows an ejection fraction of 55% with [...] mg DR lindsay (more content not included)... [facility] 05-15-2023 Note Patient here for 3 m [...] All other systems reviewed and are negative. [facility] 02-18-2023 Note Stable -ct medications [facility] 02-18-2023 Note [id number]: at [facility] for age and htn -restart warfarin, will follow coumadin clinic here at [facility] -is to report any concerns for bleeding -follow up in 2 months to discuss how he is doing -patient prefers to not consider watchmen if he does not have to [facility] 02-08-2023 Note Patient here for fol low up [facility] for GI bleed. He was discharged on 12/14 and coumadin was put on hold. Denies chest pain, SOB, and palpitations. Lost his recently. Review of Systems Musculoskeletal: Positive for arthritis, joint pain and muscle cramps. Neurological: Positive for numbness. All other systems reviewed and are negative. [facility] 02-08-2023 Note [place] Cardiology Consul t Note Reason for visit: Afib. S/p PPM HPI: Ry Lerner is a 87 y.o. 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 Device check performed on 06/12/2022 shows thresholds to be good. he is in persistent A. Fib and underwent a single-chamber pacemaker. with [employer] on 10/13/2021 and paced 65% Echocardiogram [...] stress test about 12 years ago in [place], and was in hospital with noted a fib currently on coumadin anticoagulation. Echocardiogram performed on 11/30/2020 at [facility] shows an ejection fraction of 55% with [...] No current facility (more content not included)... [facility] 01-01-2023 Note [id number] 01-01-2023 Note [id number] 12-31-2022 Note [facility] SURGERY Clinical Discharge Summary PERSON INFORMATION Name RY LERNER Age 87 Years 1935 Sex MALE Language Prydeinig PCP Ezequiel CHAMBERS, John Rodríguez Marital Status Med Service Ambulatory Surgery Acct# Arrival 12/31/2022 08:09:06 Visit Reason SURGERY - RIGHT CARPAL TUNNEL RELEASE [facility] LOS 039 21:33 Address: [address] [place] [address] Comment: PROVIDER INFORMATION VITALS INFORMATION Vital Sign [...] release capsule) 1 cap(s) Oral every day. Rockton's wort (Rockton's wort oral tablet) 1 tab(s) Oral 2 [...] release capsule) 1 cap(s) Oral every day. Rockton's wort (Rockton's wort oral tablet) 1 tab(s) Oral 2 [...] Follow up: With: Address: When: MARJ PEREZ [address] [place] [address], [address] [place] [address] [facility] () 01/09/2023 11:00 AM DIAGNOSIS Carpal tunnel syndrome, right Comment: WINNIE DOC NOTES [facility] 12-31-2022 Note Procedure: Decompres mary of [...] on: 12/31/2022 09:43 EDT] Ward Martinez DO [facility] 12-25-2022 Note [id number]:[id number] [facility] 12-12-2022 Note [id number] Note procedure: Decompres mary of median [...] Martinez DO [Verified on: 12/10/2022 15:46 EDT] JuanWard leal DO [facility] 12-10-2022 Note [facility] SURGERY Clinical Discharge Summary PERSON INFORMATION Name RY LERNER Age 87 Years 1935 Sex MALE Language Prydeinig PCP Ezequiel CHAMBERS, John Rodríguez Marital Status Med Service Ambulatory Surgery Acct# Arrival 12/10/2022 13:13:28 Visit Reason SURGERY - LEFT CARPAL TUNNEL RELEASE [facility] LOS 019 02:57 Address: [address] [place] [address] Comment: PROVIDER INFORMATION VITALS INFORMATION Vital Sign [...] Follow up: With: Address: When: Ward Martinez [address] [place] [address], [address] [place] [address] Business (1) 12/18/2022 1:30 PM Type Location Start [facility] ([facility] Main OR 12/31/2022 7:30 AM 12/31/2022 8:00 AM Confirmed DIAGNOSIS Carpal tunnel syndrome of left wrist Comment: PHYS DOC NOTES [facility] 11-06-2022 Note Cardiology Clinic No te Subjective Ry Lerner is a 87 y.o. 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 Echocardiogram performed on 11/30/2020 at [facility] shows an ejection fraction of 55% with [...] falls and he has been in the senior care lately. Device check performed on 06/12/2022 shows thresholds to be good. he is in persistent A. Fib and underwent a single-chamber pacemaker. with [employer] on 10/13/2021 and paced 65% Echocardiogram [...] LV systolic funct (more content not included)... [facility] 11-06-2022 Note Patient here for 4 m [...] All other systems reviewed and are negative. [facility] 07-24-2022 Note [place] Cardiology Consul t Note Reason for visit: [...] falls and he has been in the senior care lately. Device check performed on 06/12/2022 shows thresholds to be good. he is in persistent A. Fib and underwent a single-chamber pacemaker. with [employer] on 10/13/2021 and paced 65% Echocardiogram [...] stress test about 12 years ago in [place], and was in hospital with noted a fib currently on coumadin anticoagulation. Echocardiogram performed on 11/30/2020 at [facility] shows an ejection fraction of 55% with [...] Murmur: not hea (more content not included)... [facility] 07-24-2022 Note Review of Systems Cardiovascular: Positive [...] the day. Also has questions about medications [facility] 06-02-2022 Evaluation note Encounter Date Diagnosis Assessment [...] treatment plan. Patient left in stable condition [facility] 03-18-2022 History general Narrative - Reported* Type Description Date Medical History HYPERTENSION Medical History STROKE Medical History HEAD INJURY Surgical History PACEMAKER 10/13/2021 Surgical History HERNIA X 2 Surgical History TONSILECTOMY Hospitalization History SEE ABOVE [facility] Other Evaluation + Plan note No data available for this section [facility] HealthEvaluation + Plan note Future Appointments Appointment Date:08/27/2023 09:30:00 AM Scheduled Provider: Location:[facility] Appointment Type:FM Medicare Wellness Subsequent [facility]* Diagnosis Other atopic dermatitis- Primary Seborrheic keratosis documented in this encounter [facility] No data available for this section [facility] No data available for this section [facility] Summary Purpose Family History No Family History [...] and content) DATE CREATED AUTHOR 01/26/2022 [facility] DATE CREATED AUTHOR AUTHOR'S ORGANIZ ATION 04/25/2022 [facility] DATE CREATED AUTHOR AUTHOR'S ORGANIZ ATION 01/06/2023 [facility] DATE CREATED AUTHOR AUTHOR'S ORGANIZ ATION 01/06/2023 [facility] DATE CREATED AUTHOR AUTHOR'S ORGANIZ ATION 07/04/2023 [facility] DATE CREATED AUTHOR AUTHOR'S ORGANIZ ATION 08/31/2023 [facility] EPIC DATE CREATED AUTHOR AUTHOR'S ORGANIZ ATION 09/05/2023 [facility] REASON FOR VISIT (unrecogniz ed section and content) Reason Comments Rash Specialty Diagnoses / Procedures Referred By Daniel ivy Referred To Contact Dermatology Diagnoses eczema / skin changes texture changes Sheng Rey MD [address] [place] [address] Rebecca Conley MD [address] [address] Referral ID Status Reason Start Date Expiration Date Visits Re quested Visits Authorized [id number] Closed 07/05/2023 01/01/2024 1 1 Patient Care team informatio n (unrecognized section and content) Res Counselor Relationship Specialty Start Date End Date Jason Silva MD [address] [facility] [place] [id number] PCP - General Family Medicine 12/10/22 Res Counselor Relationship Specialty Start Date End Date Jason Silva MD [address] [facility] [place] [address] PCP - General Family Medicine [...] BE BASED ON THE PRIMARY CLINICAL RECORDS. [facility] [employer] [facility]. provides no warranty or guarantee of the accuracy or completeness of information in this document.
[2023-09-06 07:29] LABS: Basophils Percent Auto 0.7 % (0.2-2.0); Eosinophils Absolute Auto 0.4 10^3/uL (0.0-0.7); Eosinophils Percent Auto 10.1 % (0.9-7.0); Hematocrit 29.3 % (42.0-54.0); Hemoglobin 9.2 g/dL (14.0-18.0); Immature Granulocytes Abs Auto 0.01 10^3/uL (0.00-0.03); Immature Granulocytes Pct Auto 0.2 % (0.0-0.5); Lymphocytes Absolute Auto 0.8 10^3/uL (1.2-3.8); Mean Corpuscular HGB Conc 31.4 g/dL (29.9-35.2); Mean Corpuscular Hemoglobin 31.6 pg (25.9-34.0); Mean Corpuscular Volume 100.7 fL (80.0-94.0); Mean Platelet Volume 10.2 fL (9.5-13.5); Monocytes Absolute Auto 0.4 10^3/uL (0.3-0.8); Monocytes Percent Auto 9.1 % (1.7-12.0); Neutrophils Absolute Auto 2.6 10^3/uL (1.4-6.5); Neutrophils Percent Auto 60.9 % (43.0-75.0); Platelet Count 146 10^3/uL (150-450); Red Blood Count 2.91 10^6/uL (4.70-6.10); White Blood Count 4.3 10^3/uL (4.0-11.0)
[2023-09-06 07:38] LABS: INR 1.39; Partial Thromboplastin Time 28.3 sec (22.3-36.2); Prothrombin Time 14.5 sec (9.0-11.6)
[2023-09-06 08:11] LABS: Prostate Specific Antigen Dx 2.21 ng/mL (<=4.00)
[2023-09-06 08:13] LABS: Alanine Aminotransferase 18 U/L (16-63); Albumin Globulin Ratio 1.1; Albumin Level 4.1 g/dL (3.4-5.0); Alkaline Phosphatase 242 U/L (46-116); Aspartate Amino Transferase 16 U/L (15-37); BUN Creatinine Ratio 22.9; Bilirubin Total 0.6 mg/dL (0.2-1.0); Calcium 10.2 mg/dL (8.5-10.1); Carbon Dioxide 23.9 mmol/L (21.0-32.0); Chloride 106 mmol/L (98-107); Chol HDL Ratio 3.9; Cholesterol 167 mg/dL (<=200); Estimated GFR (African America 38 (>=60); Estimated GFR (Non-African Ame 32 (>=60); Gamma Glutamyl Transpeptidase 55 U/L (15-85); Globulin 3.9 g/dL; Glucose 110 mg/dL (74-106); HDL Cholesterol 43 mg/dL (40-60); LDL Cholesterol Calculated 104.8 mg/dL; Potassium 4.9 mmol/L (3.5-5.1); Sodium 141 mmol/L (136-145); Thyroid Stimulating Hormone 1.815 uIU/mL (0.358-3.740); Triglycerides 96 mg/dL (<=150); VLDL CHOLESTEROL 19.2 mg/dL
== END 2023-09-06 07:02 | disposition home or self-care (01) ==
LOC: LAB 07:01
PROVIDERS: PCP Nurse Practitioner; Visit Provider Nurse Practitioner
DX: K76.9 Liver disease, unspecified (principal); N28.9 Disorder of kidney and ureter, unspecified; E78.00 Pure hypercholesterolemia, unspecified; Z79.01 Long term (current) use of anticoagulants
CPT/HCPCS: 36415; 80053; 80061; 82977; 84153; 84443; 85025; 85610; 85730

== ENCOUNTER 2023-09-09 11:14 | Outpatient (OUT) | payer MEDICARE, SELFPAY ==
--- OUTSIDE RECORDS SUMMARY | 2023-09-09 11:22 | XMS_ITS | CCD ---
Author Name Unknown Address [address] [facility] [address] [place] [address] Organization [facility] Care Team Providers Care Maid Supervisor Name Role Phone UNKNOWN, PHYSICIAN Referring Unavailable JASON SILVA Primary Care Unavailable DEJON QUINTANA Attending Unavailable DEJON QUINTANA Admitting Unavailable PROVIDER, UNKNOWN Attending Unavailable PROVIDER, UNKNOWN Admitting Unavailable PROVIDER, UNKNOWN Attending Unavailable PROVIDER, UNKNOWN Admitting Unavailable Sonja Aden Unavailable Sheng Rey Primary Care Physician [phone] Ward Martinez Admitting Unavail able Ward Martinez [...] Unavailable Jason Silva MD Primary Care Provider [phone] ADDIE HUSTON Attending Unavailable YOLIS, SHENG Referring Unavailable Yolis, Sheng L Attending Unavailable Yolis, Sheng L Attending Unavailable Yolis, Sheng L Attending Unavailable Yolis, Sheng L Attending Unavailable Yolis, Sheng L Attending Unavailable John Nieves Attending Unavailable Yolis, Sheng L Attending Unavailable Yolis, Sheng L Admitting Unavailable Yolis, Sheng L Attending Unavailable Yolis, Sheng L Attending Unavailable Yolis, Sheng L Admitting Unavailable Yolis, Sheng L Admitting Unavailable Yolis, Sheng L Referring Unavailable Mary Jane Garza Attending Unavailable Yolis, Sheng L Attending Unavailable Allergies Allergy Classification Reported Allergen(s) Allergy Type Date of Onset Reaction(s) Facility (2 sources) No Known Medication Allergies; Translations: [No Known Medication Allergies] Propensity to adverse reactions to drug (disorder) [place] [facility] Medications Current Medications Medication Drug Class(es) [...] # 180 cap(s), Refills(s) 3, Pharmacy: [facility], 178, cm, 01/22/23 14:05:00 EDT, Height/Length [...] 3 Chronic Other aftercare (1 source) 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; Translations: [OTH USP CURRENT DRUG THERAPY] Onset: 3 Episodic Other aftercare (5 sources) Encounter for therapeutic drug level monitoring; Translations: [ENC THERAPEUTC DRUG LEVL MONITORING] Onset: 3 Episodic Other aftercare (1 source) 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) use of anticoagulants; Translations: [CONGRESSIONAL REPRESENTATIVE CURRNT USE ANTICOAGULANTS] Onset: 3 Episodic Other [...] Value Interpretation Reference Range Facility Physician Referralon 024 Physician Referral [id number] #1.00TIFF Normal [facility] Office/Clini c Noteon 09-04-2023 Family Medicine Office/Clinic Note HPI Staff Ry is a 87 year old male presenting to review x-rays Pt has x-rays done on 08/28/23, CT chest on 08/30/[address] right shoulder 09/02/23 Pt needs refill on furosemide pt states 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 pt referred to GI at [facility]. liver enzymes ordered as well. pt will have labs drawn at [facility]. RTC 1 month to touch base with all of the additional testing and referral we have placed. Ordered: [facility] Internal Ambulatory Referral 2. Nodule of kidney [...] stools and HGB dropped critically low Ordered: [facility] Internal Ambulatory Referral 5. Abnormal x-ray of cervical spine (R93.7: Abnormal findings on diagnostic imaging of other parts of musculoskeletal system) CT of cervical spine ordered 6. Rotator cuff tear (M75.100: Unspecified rotator cuff tear or rupture of unspecified shoulder, not specified as traumatic) pt informed that he has an old rotator cuff tear. pt declines referral to ortho at this time Ordered: [facility] External Ambulatory Referral 7. BMI 31.0-31.9,adult (Z68.31: [...] Recorded influenza virus (more content not included)... Normal [facility] Comment on above: Result Comment: Elec tronically Signed By: Sheng Simms\Date and Time Signed: 09/04/23 12:27 EST Physician Referralon 024 Physician Referral [id number] #1.00TIFF Normal [facility] Ambulatory Visit Summaryon 0 09-03-2023 Ambulatory [...] 10:00 AM EST With: Sheng Simms Where: [facility] Lab Reportson 09-03-2023 Lab Reports [id number] #1.00TIFF [facility] Lab Reports [id number] #1.00TIFF [facility] Physician Orderon 09-03-2023 Physician Order [id number] #1.00TIFF [facility] Consultation Noteon 08-30-19 Consultation Note [id number] #1.00TIFF [facility] Physician Orderon 08-30-2023 Physician Order [id number] #1.00TIFF [facility] Physician Orderon 08-29-2023 Physician Order [id number] #1.00TIFF [facility] Physician Order [id number] #1.00TIFF Normal [facility] RAD - MISCon 08-29-2023 [facility] [id number] 7#1.00TIFF Normal [facility] MIS [id number] 5#1.00TIFF Normal [facility] [id number] #1.00TIFF Normal [facility] Ambulatory Visit Summaryon 0 08-28-2023 Ambulatory Visit Summary RY LERNER :1935 Visit Date:08/28/2023 Ambulatory Visit Instructions Your Diagnosis Annual visit for general adult medical examination without abnormal findings Encounter for screening for other disorder HTN (hypertension) Hyperlipidemia Right shoulder pain Pain of right thumb Neck pain Your Care Team Attending Physician - John Nieves MD Primary Care Physician - Sheng Simms This [...] 10:20 AM EST With: Sheng Simms Where: [facility] [place] Normal [facility] Family Medicine Office/Clini c Noteon 08-28-2023 Family [...] of clutter to prevent tripping and/or falling. [place] Advance Directives reviewed, yes on file in [...] UTD, patient to bring cholesterol results to [facility]. Colonoscopy up to date, last completed [...] a difficult (more content not included)... Normal [facility] Comment on above: Result Comment: Elec tronically Signed By: Sheng Simms\.br\Date and Time Signed: 08/28/23 13:35 EST\.br\Electronically Co-Signed By: Rene Brannon\.br\Date and Time Co-Signed: 08/28/23 13:09 EST Formson 08-28-2023 Forms [id number] #1.00TIFF Normal [facility] Patient Educationon 08-28-19 Patient Education [...] night-lights. ? Place frequently used items in yqqy-qn-kflzl places. Lower the shelves around your home [...] the way. ? Do not use floor swazi or wax that makes floors slippery. If [...] include working with a physical therapist or hydraulic strainer operator to improve your strength, balance, and endurance. Where to find more information ? Centers for Disease Control and Prevention, [place]: www.cdc.gov ? National [place] on Aging: www.ed.nih.gov Contact a health care [...] health ca (more content not included)... Normal [facility] Physician Referralon 023 Physician Referral [id number] 5#1.00TIFF [facility] Ambulatory Visit Summaryon 1 09-03-2022 Ambulatory [...] Follow-Up Appointments Saturday 11:00 AM EST Where: [facility] [place] Normal [facility] Family Medicine Office/Clini c Noteon [...] and CMP drawn at that visit. Ordered: [facility] External Ambulatory Referral [facility] External Ambulatory Referral 2. Skin texture changes (R23.4: Changes in skin texture) pt has a couple areas on his face that have changes in shape and color and will come off or flake off then comes back. Dr. Silva froze a couple areas a few years ago. will refer to dermatology to manage these areas and his eczema. Ordered: [facility] External Ambulatory Referral [facility] External Ambulatory Referral 3. BMI 31.0-31.9,adult (Z68.31: Body mass index [BMI] 31.0-31.9, adult) BMI education complete Ordered: Body Mass Index (BMI) documented 3008F Current tobacco non-user 1036F Depression Screening Negative 3352F [facility] External Ambulatory Referral [facility] External Ambulatory Referral Influenza immunization status assessed [...] tobacco non-user 1036F Depression Screening Negative 3352F [facility] External Ambulatory Referral [facility] External Ambulatory Referral Influenza immunization status assessed [...] tobacco non-user 1036F Depression Screening Negative 3352F [facility] External Ambulatory Referral FT External Ambulatory Referral Influenza immunization status assessed [...] changes Historical (more content not included)... Normal [facility] Comment on above: Result Comment: Elec tronically Signed By: Sheng Simms\.viviane\Date and Time Signed: 07/03/23 12:49 EST Lab Reportson 07-02-2023 Lab Reports [id number] #1.00TIFF Normal [facility] Office Visiton 05-15-2023 Follow-up visit [id number] Ry Lerner 1935 M Date Provider Department Center 05/15/2023 [facility] Family History Family history unknown: Yes Level of Service:49071 [place] OFFICE/OUTPATIENT ESTABLISHED MOD MDM 30-[address] [facility] Physician Referralon 023 Physician Referral [id number] #1.00CD:127 Normal [facility] Consultation Noteon 03-11-20 23 Consultation Note [id number] #1.00CD:127 Normal [facility] Office Visiton 02-08-2023 Follow-up visit [id number] Ry Lerner Lisbet 1935 M Date Provider Department Center 02/08/2023 [place] Family History Family history unknown: Yes Level of Service:82823 [place] OFFICE/OUTPATIENT ESTABLISHED MOD MDM 30-[address] [facility] Family Medicine Office/Clini c Noteon 01-23-2023 [...] at this time. Patient was treated at [facility]. Questions/Concerns: History of Present Illness pt presents [...] to follow up with Dr. Vargas in [place] and also placed a GI consult. since then his so he has not made any of those appointments. pt wants to stop taking lasix. encouraged daughter to make appointment with Dr. Vargas and let him decide if he can stop lasix. will draw pt/ptt in office today and compare to labs that were drawn in [place] end of November. still waiting for those labs. will call pt tomorrow once we have lab results. omeprazole refills also sent to pharmacy. they will hold off on GI referral until they get meds situated with pulverizing and sifting operator. Dr. Vargas's office was called notified. [...] 06/13/2020 Recorded (more content not included)... Normal [facility] Comment on above: Result Comment: Elec tronically Signed By: Sheng Simms\.br\Date and Time Signed: 01/23/23 16:36 EDT Auto Diffon 01-22-2023 Basophils/100 WBC (Bld) 0.5 % Normal 0.0-2.0 [facility] Comment on above: Order Comment: Order Added by Discern Expert. Performed By: #### 2 159901, 1719757, 01689010, 2510838 ####[address] [address] Basophils/Leukocytes Auto (Bld) [Pure # fraction] 0.0 E9/L Normal 0.0-0.2 [facility] Comment on above: Order Comment: Order Added by Discern Expert. Performed By: #### 2 171226, 2912882, 93121496, 0783829 ####[address] [address] Eosinophils/100 WBC (Bld) 4.7 % Normal 0.0-8.0 [facility] Comment on above: Order Comment: Order Added by Discern Expert. Performed By: #### 2 448515, 0441032, 65085486, 3018371 ####[address] [address] Eosinophils/Leukocyte s Auto (Bld) [Pure # fraction] 0.2 E9/L Normal 0.0-0.5 [facility] Comment on above: Order Comment: Order Added by Discern Expert. Performed By: #### 2 894367, 2634857, 84283856, 3954529 ####[address] [address] Lymphocytes/100 WBC (Bld) 20.4 % Normal 14.0-50.0 [facility] Comment on above: Order Comment: Order Added by Discern Expert. Performed By: #### 2 972978, 9738718, 98910629, 8307442 ####[address] [address] Lymphocytes/Leukocyte s Auto (Bld) [Pure # fraction] 0.8 E9/L Low 1.0-4.0 [facility] Comment on above: Order Comment: Order Added by Discern Expert. Performed By: #### 2 997919, 6625656, 69165282, 7299947 ####[address] [address] Monocytes/100 WBC (Bld) 7.6 % Normal 4.0-14.0 [facility] Comment on above: Order Comment: Order Added by Discern Expert. Performed By: #### 2 133662, 3542142, 47214590, 5631902 ####[address] [address] Monocytes/Leukocytes Auto (Bld) [Pure # fraction] 0.3 E9/L Normal 0.2-1.0 [facility] Comment on above: Order Comment: Order Added by Discern Expert. Performed By: #### 2 675431, 3785598, 01232026, 1909715 ####[address] [address] Neutrophils/100 WBC (Bld) 66.8 % Normal 36.0-75.0 [facility] Comment on above: Order Comment: Order Added by Discern Expert. Performed By: #### 2 817971, 7863032, 90396756, 3373743 ####[address] [address] Neutrophils/Leukocyte s Auto (Bld) [Pure # fraction] 2.5 E9/L Normal 2.0-7.5 [facility] Comment on above: Order Comment: Order Added by Discern Expert. Performed By: #### 2 591389, 0828376, 24194360, 0731029 ####[address] [address] CBC w/ Auto Diffon 3 Erythrocyte distribution width (RBC) [Ratio] 14.1 % Normal 10.9-14.2 [facility] Comment on above: Performed By: #### 2 969181, 2964248, 19598454, 1233435 ####[address] [address] Hematocrit (Bld) [Volume fraction] 29.2 % Low 37.7-49.0 [facility] Comment on above: Performed By: #### 2 268364, 2363817, 92781117, 2228918 ####[address] [address] Hemoglobin (Bld) [Mass/Vol] 9.7 g/dL Low 13.5-17.5 [facility] Comment on above: Performed By: #### 2 819071, 3508566, 39743658, 4755488 ####[facility] [address] [place] [address] MCH (RBC) [Entitic mass] 32.2 pg Normal 27.0-34.0 [facility] Comment on above: Performed By: #### 2 228920, 5433361, 22848874, 2326536 ####[place] [address]3757 MCHC (RBC) [Mass/Vol] 33.4 g/dL Normal 31.4-36.0 [facility] Comment on above: Performed By: #### 2 790875, 5880787, 75831054, 1971570 ####[place] 3073757 MCV (RBC) [Entitic vol] 96.3 fL Normal 80.0-100.0 [facility] Comment on above: Performed By: #### 2 409814, 9064877, 46805377, 6330760 ####[address] [address] Platelet mean volume (Bld) [Entitic vol] 9.1 fL Normal 6.4-10.8 [facility] Comment on above: Performed By: #### 2 623920, 3261245, 63794207, 8946848 ####[facility] [address] [place] [address] Platelets (Bld) [#/Vol] 138.0 E9/L Low 150.0-500.0 [facility] Comment on above: Performed By: #### 2 831859, 0660460, 45628550, 7100226 ####[address] [address] RBC (Bld) [#/Vol] 3.0 E12/L Low 4.3-5.9 [facility] Comment on above: Performed By: #### 2 748367, 2988702, 57048950, 3411096 ####[facility] [address] [place] [address] WBC corrected for nucl RBC Auto (Bld) [#/Vol] 3.8 E9/L Low 4.0-11.0 [facility] Comment on above: Performed By: #### 2 863402, 2702019, 26945855, 1074383 ####[facility] [address] [place] [address] Lyteson 01-22-2023 Anion gap [Moles/Vol] 15 mmol/L Normal 6-16 [facility] Comment on above: Performed By: #### 2 621869, 5721038, 93830246, 4367296 ####[facility] [address] [place] [address] Chloride [Moles/Vol] 108 mmol/L Normal 101-111 [facility] Comment on above: Performed By: #### 2 014331, 4142500, 92984917, 4711893 ####[facility] [address] [address] CO2 [Moles/Vol] 24 mmol/L Normal 21-31 [facility] Comment on above: Performed By: #### 2 136565, 6416317, 05581505, 2258171 ####[facility] [address] [place] [address] Potassium [Moles/Vol] 4.8 mmol/L Normal 3.5-5.3 [facility] Comment on above: Performed By: #### 2 413942, 7409292, 79501506, 2210850 ####[facility] [address] [address] Sodium [Moles/Vol] 142 mmol/L Normal 135-145 [facility] Comment on above: Performed By: #### 2 683008, 4296903, 82697094, 1607300 ####[facility] [address] [place] [address] PT & PTTon 01-22-2023 aPTT Coag (PPP) [Time] 29.6 second(s) Normal 25.1-36.5 [facility] Comment on above: Result Comment: Para [...] the same coagulation reagent and instrumentation as [facility]. Currently there are no coagulation studies available worldwide for children to 14 days, and no normal ranges. Heparin therapeutic range (represented by Anti-Factor Xa activity of 0.2 - 0.4 U/mL) corresponds to PTT of 56.6 - 109.0 sec. Performed By: #### 2 925313, 0315435, 21568402, 5786145 ####[facility] [address] [place] [address] INR Coag (PPP) [Relative time] 1.1 {INR} Invalid Interpretation Code [facility] Comment on above: Result Comment: INR results are specifically intended to assess patients stabilized on long-term Anticoagulation therapy suggested INR?s ?Less Intensive Anticoagulation? 2.0 ? 3.0 Conventional Range 3.0 ? 4.5 Performed By: #### 2 375936, 2789459, 98189374, 5670333 ####[facility] [address] [place] [address] PT Coag (PPP) [Time] 12.2 second(s) Normal 9.4-12.5 [facility] Comment on above: Result Comment: 15 [...] the same coagulation reagent and instrumentation as [facility]. Currently there are no coagulation studies available worldwide for children to 14 days, and no normal ranges. Performed By: #### 2 347331, 3984016, 03990855, 8066533 ####[facility] [address] [place] [address] Coding Summaryon 01-01-2023 Coding Summary HTMLBase 64 XsiylybyMSx2eHz+PGhl YWQ+ZT1POFKiC36ptYUb nF1yZ2XWKSnAUskyCANG OGmZBvTbgsCtJE4dtYOv ZXJu IC8+AW3aLZUqStcvsRVf g9W9bNQ0A83jul3dPOtp iEA7XHPxPhTbuvnsr7qs cBb9ZMbzUmotLzNt YPAspD62LFH8kT71Bo92 zBQuyVBtd8kjrEs7HdEu BDAjYWV0kFozSGogw1Qi NNPlN60kjWWif9K6 IGNvbGxhcHNlOyBlbXB0 iL1oPLmgpzhra9wlcpob Fql4ni06kMAer3H6gGT1 P0TeczK5ZTTsrVNt NdpbkBQJrW5fetdld4wg ysczFfYvNUEvNLm8OOe3 ZHPeeTwkCsMqEV22VIN7 XNFnqnOtF9YfYBTl yTniUvR5p3R4Ym8FL0KU XezvA4OGVXDAIOaauJV+ TF18hk20T8EkLotaQsc6 KMUnRAY2dCP3oV4v ALJrAIxqs5Y0oAS1D1Mt qoUpvm9ko7yfOUDxQXzy C71gfTJez1R2LRMfeZP1 RRXsnGhjMaWhoA32 Oyc+JZExfDqhn7EmHbmf g9bte8vycXx6FkktGBMu xaArsQsjGUD2l6NfLx0w WHGwpNP9jGN8bZ5g DmPpEwF0TTuhW158MzZz fHMhZoksB55lI2GoyRS+ KRVdFtn7MBZfjLbaTV1a L6ZtRKWqyxnyfIWk cYhrWM2oZAEiyuhfUHEf kM4eWDRgY7d2EeHzHhP2 TYsgI5TbPGRrnpszVh99 mH4hNoXlHaA2TQzw E0SyasC7KCOlkBOrGVzm XTN7O29jp9H7FTEoSMXg CMP4mAF0iG4egMctrncs bGVmdDsgdmVydGlj FBluLKhrP233NGDziRhb PkNvZGluZyBEYXRlOiAg MDYvMDYvMjAyMzwvdGQ+ JARaOWQ1tSerIGFr rAFoPYvpKu4xjNfkeOkd ZY7kIPXkhgcaJYPuyW5a PJWumUHtpCtnHU4mHUAk vndej532RcBqQNJ5 RZBanAGoX0RmpH9jLeJj ORTlCOIrD5DmnUPgLXmi Q120DVsiPcX6RKHxhgGn F6LkPTMjvQawDqA1 o2H0Ck8Ba8DrmskfH8Ti jGRqWbDgCtivACm3Y1Qy PjwvdHI+OC29TNRmAU80 ZUa7YSN4sBihRUkx SUNgT0GqiO0fDdHcBACu ZGRkOyc+PHRhYmxlIHdp ZHRoPScxMDAlJyBzdHls CQ6eTc5oSECeQBHq dIbnhARkHxIek6cpZLTu RKflGR9stJseH3IlhBT3 DZEbp8n1Bf35J64qJ4Hm dXA+OZJhgNA8nLU3 vL1qNmHdHmO9RFkmV203 JpWstORxJtgel8ufh6pp rIi5CzI6GOSwcxRmdTwq CSG1i2QwZf48Z35v IHdpZHRoPSIxNSUiIHZh eSkrjo1rbT8mMl0+PGNv dOK5yNH1dU6vAhAzQpO5 DQamD803HzFgwNFw Vymlf3yku8qksHu7IhNh XXXlioQuuGsxFQB3z6Nb Xb66A2KzqHeld1PgUcy7 cc36fATsu6A1eQH4 D3WuFKSqptijnZKecPkk MC7dKDSgiwtuVUAqpC1g ZNXvI5z1CjEjNiA5TOgx K4TokzE9EDAzgRVr HMSvbWVDzZ1ewdwhx5kx uiorXuIgHODuALc0TGu9 CZDcwCdeJeGrRIA9QfT0 SXF1fXIaeM3ivMup wpkdiR6bSzr+FJB9yCAz hKRLLU2fHkeioHV+PHRk AAN8jEerSJucPRKozL5j UJZlZ9a1QdUmGqK6 WZpsJ1TdwmB9JJCrhCEy EADeoDHTmO0xlwers4ep rismZhGeNWYlTRf1CXd8 LWFsaWduOiBsZWZ0 TuJ0WLP4oYAcyP5rsKfy wkyflQ6cLvs+QmlydGgg NKO6OAp9S5KsMwx8WEXv uPjaCT8mcHDiYCvj Yb7zuOnsnXaqJV6cMTUm ekepa795ReOgu1svHXUm yIJyAJgsLUL0Z65us0R7 SHZvHTCvMTW1dYL3 pH5vaTfgpegxkYMqyGev lxNdpGdnLXgqFCzyC810 UZNclUtkKkTxXLs6O7Wh Xdq1FLCcgXofCA8j cOFtBYcqDh1zlOzhtHuc YQ9tWXWhucwbh828DxRo i6hfVHXvyINwXTpeAGG1 P56ps8N5JTVwSVRn KSA4tRR5gQ3olWnykmuo bGVmdDsgdmVydGljYWwt GSiwL769EUBjbNrrYpYe qAl1B4RnUws9UNCd cYapYE4oqFHfKPlvZa8x oFcxoKmnVK7qEUDbiadi t275JvCeu1kaUYBbbIEn RLkxAMP6N27jz6N9 FWRqTYRhCNH3lZX7fL9m bGlnbjogbGVmdDsgdmVy eEtnYGisMJbiK448ARGs cDsnPlBhdGllbnQg CPdjIKq6L5NhUnvxoXH+ HA27ODYzZZ05fDWvfJJf g8aghSy3TsVmNCAaUYM3 eDrqUWijz1KbSOJd S29prGOhh8F4MYKdeXvn fWWjMkMicMO7lR8dQEqj leuqo9hnjpgrIbyhd4ma sw84zI95G13dLXjd ZHRoPSIzMCUiIHZhbGln nu4ucS8sEl5+PGNvbCB3 rNK2pY6zJWOiCtA1LHyl N341PjVwiYAhNesj d9ecy1xriPx8VlA3ZDYq xvTtiFgyBNG6v0MxWb67 R87iAIddVQAuHNRpYWXr JBEztNvuko1htU4e Ii8+RRYzyVM4tON5sY1u FzUtMsT6MQwbS221BpMh mQHxWxaxC27pP7BjfYB+ ZAYgRlk1CEXvtIpf WH7vqJHnJTnpCl6cLSL8 VnUvUyEkHGrjB1DbLKHz qmpjqjqcjRM5OCSnUXJw xK78Ab2xqPvxCCEn hMZWtL0zrnpuu9tcoyjb NyJgSXRjHMt4PTu3HLDe hApjCqAyJUF1OdH3RVJ1 nUHumC7pfMtwmwpb dT3tL9KbAHZfydlyXv57 cE5rRgHlVgN1DAvzRzz+ ERuTFKKZGOKLSUVWUZ4R UDaPE91RPT55PZ65 kLCqg1J0jNO8G7DcOIQy mkekhcmxhJS4JRZrACPe xU15oVJuJFvqXj6cw0L0 t188BVGoPRBgoD40 Kn1ckYcqKALvbUMSfO2c ldbas2sesjegUdElXTMy OJg1AFy6FVHhsFdkJaXn XJW6CjE1TYZ6kAFj mE2juRmgwjdcoW5vUhb+ MDMvMDQvMTkzNTwvdGQ+ VOHvAVI4kTzpMMzuYNOi xH1wQIIbJ3x3AnTe CtO3STagT0IlSJAfzssa Rj63sZ5fBnRfDwL2WBsw Y8HdfiF7KXRhvNGqUHje ADW2Y20js2C3FOTh HOZlRIO2bRX6fG6taEmr bjogbGVmdDsgdmVydGlj WFpuDFcoB846ZIJyyHbx Sby8CLcfTSBhDN91 GC78xBIih1W6ySS6K5Ql JDFwibvewjjlpMJ1SLYq BMJmgS05sJWcUFuqZi2u j0D2s990CJMsTZRi tR05Os9zqRnhMGPruNSP kK1elksme5nrttltCxGe DSCeFSy9JEw7JMCtnCjc UvBcUBY5HuS2CJC4 rIFobI9nhVbjnerlvB6w Oyc+TUFMRTwvdGQ+PHRk YBD3yTcePDtgAPSoqR6b FHCsM4i6PiXqDrF1 GGvuK7ZbYGPltfhoHb34 xX2iXsPrRyV8QYmhG1Wl ifO0ZSXkoBMhEAueSSM8 P33ey6V9ILXaPMIf RCT2aND7wJ1kzRgfadnw bGVmdDsgdmVydGljYWwt RDlnA819ZKWymKsiMzVv rJMHqTVxVSG5NI72 UH63C4WiGkuuwLWddSL+ PHRhYmxlIHdpZHRoPScx PHYpUcHjzUleWK0pKp5e ZGVyLWNvbGxhcHNl PbDvm2ayRUTkTUiwRJ7k iSraJ8YydOO1LQHkb0w4 Ku85R60pE6KuuDS+PGNv zGK3fSV0yI8zVtKd CaX3CUwbX822VtZkwBRg Mraxb6wcp3eczQi2DlKy FRBowkYxoGmjJVP3e8Fz Ko56W05nSPzqUJSe RPOxCALvJPFckTkxqa5r wO3sRi6+TYClsIF1lHK0 vO3wHeIbCiH2AJggM203 GhZrxMPrYawlZ94b Q9KqlCW+FHBiRty3DNMn lIoeJL9eiFFtXHkmOn9w RGF8ZiAfRkQxBHzmG0Az ZGRpbmctcmlnaHQ6 QFZvECYwkE91Aq1xnDij Pu9jLWMsUDE7DJPjrCNw I9VunS2qKfElJURcSUSi T6NccKLdGZwfZ856 PLoeXbG8MTXzlcLlN3Sv DGBsxAufCuV0w6C9Ru9K tVilcXRpGJ2oCaVkCWh3 V3UhAbs6GAHcoHff AZ1bfURcEJwaVs7ygDqd kUmsJP3eIHLoojydg728 UnFit6vqPIBagXDzBRsu VDC0N53pp5P9EHVn QXVfILD2jDI5vH6gtLwv bjogbGVmdDsgdmVydGlj WJkqMAoxA776GGYefMmc VxKMAwy7L9OjLyw3 EPDtkEqaJD9jjTJbALxw Ep9elKzfpWdyLL4rNYHw sysnl039LvPjk6rvZGGk jPRmDBtlQKV7X62g a7V6CSJkDPPaZQX6jRT2 sU3giPmnomfjySOapSap roNjzMnkRAvcREajX246 RAJosCmyVi2AUos4 C4SjJcw1UQUknOmqME0d kLZlRZrgFr7ldAnvgLnx KS2kTQXatqlvp487LjEv l1esGTKizMNxATmn YNH4M02bc8M3ANFxGHUf FZF7hQU5tS8fnEdjhqup bGVmdDsgdmVydGljYWwt HSneA354IFDreIol PlBheWVyOjwvdGQ+PC90 hn49I6PmQnkkWee3QTOd QVW9iDF0jK8eWGIlWDdv u8G5hQO1G4RrrkHb ci1 (more content not included)... [facility] Consent Formson 01-01-2023 Consent Forms [id number] [id number] [facility] Inpatient Patient Summaryon 12-31-2022 [place] [address] Patient Discharge Instructions Name: RY LERNER : 1935 Patient Address: [address] [place] [address] Primary Care Provider: Name: John Nieves MD After you are discharged if you find you have any questions, please, call [phone] ext [phone] to speak to a nurse. Discharge Diagnosis: Carpal tunnel syndrome, right Prescription Information: If you have been given a prescription for narcotics, seek immediate medical attention if you have any difficulty breathing or any sudden status changes such as confusion and sleepiness. If you or anyone you know is experiencing suicidal thoughts, mental health, alcohol and/or drug addiction problems; contact the [facility] 18/02 Crisis Hotline -Text 4HMED to 857458. If you received any narcotics, sedation, or [...] business decisions or sign any legal documents [place] would like to thank you for allowing us to assist you with your healthcare needs. The following includes patient education materials and information regarding your injury/illness. RY LERNER has been given the following list of follow-up instructions, prescriptions, and patient education materials: Follow-up Instructions With: Address: When: MARJ PEREZ [address] [place] [address], [address] [place] [address] Business (1) 01/09/2023 11:00 AM [...] 1 cap(s) Oral every day. Lindsey's wort (Coxton's wort oral tablet) 1 tab(s) Oral 2 [...] 1 cap(s) Oral every day. Lindsey's wort (Coxton's wort oral tablet) 1 tab(s) Oral 2 [...] 3. 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 Change your [...] or concerns, please call the office at [phone] 7. Follow up as scheduled Viruses or Bacteria What?s got you sick? Antibiotics only treat bacterial infections. Viral illnesses cannot be treated with antibiotics. When an antibiotic is not prescribed, ask your healthcare professional for tips on how to relieve symptoms and feel better. Usual Cause Illness Viruses Bacteria Antibiotic Neede (more content not included)... Normal [place] 12-31-2022 Lab Reports [id number] #1.00CD:127 Normal [facility] MAGR Intraoperative Recordon 12-31-2022 MAGR Intraoperative Record MAGR Intra-Op Record Summary Primary Physician: Ward Martinez DO Finalized Date/Time: 12/31/22 11:56:55 Pt. Name: RY LERNER PERRY Leblanc/Sex: 1935 MALE Med Rec #: [id number] Physician: Ward Martinez DO Financial #: [id number] Pt. Type: D Room/Bed: / Admit/Disch: 12/31/22 [...] RN, DO Role Performed Surgeon - Primary Windshield Wiper Repairer Windshield Wiper Repairer Time In 12/31/22 09:15:00 12/31/22 09:15:00 12/31/22 09:15:00 Time Out 12/31/22 09:37:00 12/31/22 09:46:00 12/31/22 09:46:00 Procedure Carpal Tunnel Carpal Tunnel Carpal Tunnel Release(Right) Release(Right) Release(Right) Last Modified By: [place] PERSAUD, Chelita Borjas RN, Chelita Mc RN 12/31/22 09:49:26 12/31/22 09:49:26 12/31/22 09:49:26 Entry 4 Entry 5 Case Attendee Lavern Vasques Kelly CST GUSSET MAKER Role Performed Guest Service Host Scrub Personnel Time In 12/31/22 09:15:00 06/05/23 09:15:00 Time Out 12/31/22 09:46:00 12/31/22 09:46:00 Procedure Carpal Tunnel Carpal Tunnel Release(Right) Release(Right) Last Modified By: Chelita Borjas RN, RN, Kathleen A 12/31/22 09:49:26 12/31/22 09:49:26 Surgical Procedures MAGR Pre-Care Text: A.20 Verifies operative procedure, surgical site, and laterality Im.150 Develops individualized plan of care Entry 1 Procedure Carpal Tunnel Release Primary Procedure Yes Primary Surgeon Ward Martinez Modifiers Right Riki DO Surgeon Comment RIGHT CARPAL [...] By Chelita Borjas RN Scrub 10% Povidone-Iodine Pickering Prep Area (Im.270) Elbow and forearm, Prep Area Details Right Hand, Wrist Skin Prep Agent Dry Yes Without Pooling Hair Removal Syntegrity Hair Removal Methods No hair removal performed Outcome Met (O.100) Yes Last Modified By: Chelita Borjas RN 12/31/22 11:55:12 Pos (more content not included)... [facility] MAGR Preoperative Record MAGR Pre-Op Record Summary Primary Physician: Ward Martinez DO Finalized Date/Time: 12/31/22 09:13:14 Pt. Name: RY LERNER/Sex: 1935 MALE Med Rec #: [id number] Physician: Ward Martinez DO Financial #: [id number] Pt. Type: D Room/Bed: / Admit/Disch: 12/31/22 [...] Signed By: Vicky Ponce RN 12/31/22 09:13 [facility] Patient Handouton 12-31-[address] 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 Keep your hand elevated above your elbow for the first 24 hours after surgery 2. Wiggle your fingers frequently while awake 3. 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 Change your [...] or concerns, please call the office at [phone] 7. Follow up as scheduled [facility] Physician Referralon 023 Physician Referral [id number] 1#1.00CD:127 Normal [facility] Living Will/POAon 12-26-2022 Living Will/POA [id number] #1.00CD:127 Normal [facility] CBC AUTO DIFFon 12-25-2022 BASO # 0.0 103/ul Normal 0.0-0.1 [facility] Comment on above: Performed By: #### C BC #### [facility] [address] [address] [address] Rashmi Nolan Basophils/100 WBC (Bld) 0.6 % Normal 0.2-2.0 [facility] Comment on above: Performed By: #### C BC #### [facility] [address] [address] [address] Rashmi Nolan EO # 0.2 103/ul Normal 0.0-0.7 [facility] Comment on above: Performed By: #### C BC #### [facility] [address] [address] [address] Rashmi Nolan Eosinophils/100 WBC (Bld) 6.9 % Normal 0.9-7.0 [facility] Comment on above: Performed By: #### C BC #### [facility] [address] [address] [address] Rashmi Nolan Erythrocyte distribution width (RBC) [Ratio] 14.0 % Normal 11.0-15.0 [facility] Comment on above: Performed By: #### C BC #### [facility] [address] [address] [address] Rashmi Nolan Hematocrit (Bld) [Volume fraction] 29.8 % Critically low 42.0-54.0 [facility] Comment on above: Performed By: #### C BC #### [facility] [address] [address] [address] Rashmi Nolan Hemoglobin (Bld) [Mass/Vol] 9.8 g/dL Critically low 14.0-18.0 [facility] Comment on above: Performed By: #### C BC #### [facility] [address] [address] [address] Rashmi Nolan IG # 0.02 10e3/ul Normal 0.00-0.03 [facility] Comment on above: Performed By: #### C BC #### [facility] [address] [address] [address] Rashmi Nolan IG % 0.6 % Critically high 0.0-0.5 [facility] Comment on above: Performed By: #### C BC #### [facility] [address] [address] [address] Rashmi Nolan LYMPH # 0.8 103/ul Critically low 1.2-3.8 [facility] Comment on above: Performed By: #### C BC #### [facility] [address] [place] [address] Dr. Rashmi Nolan Lymphocytes/100 WBC (Bld) 25.1 % Normal 20.5-60.0 [facility] Comment on above: Performed By: #### C BC #### [facility] [address] [place] [address] Dr. Rashmi Nolan MANUAL DIFF REQ NO Normal [facility] Comment on above: Performed By: #### C BC #### [facility] [address] [place] [address] Dr. Rashmi Nolan MCH (RBC) [Entitic mass] 33.0 pg Normal 25.9-34.0 [facility] Comment on above: Performed By: #### C BC #### [facility] [address] [place] [address] Dr. Rashmi Nolan MCHC (RBC) [Mass/Vol] 32.9 g/dL Normal 29.9-35.2 [facility] Comment on above: Performed By: #### C BC #### [facility] [address] [place] [address] Dr. Rashmi Nolan MCV (RBC) [Entitic vol] 100.3 fL Critically high 80.0-94.0 [facility] Comment on above: Performed By: #### C BC #### [facility] [address] [place] [address] Dr. Rashmi Nolan MONO # 0.3 103/ul Normal 0.3-0.8 [facility] Comment on above: Performed By: #### C BC #### [facility] [address] [place] [address] Dr. Rashmi Nolan Monocytes/100 WBC (Bld) 9.6 % Normal 1.7-12.0 [facility] Comment on above: Performed By: #### C BC #### [facility] [address] [address] [address] Rashmi Nolan NEUT # 1.9 103/ul Normal 1.4-6.5 [facility] Comment on above: Performed By: #### C BC #### [facility] [address] [address] [address] Rashmi Nolan Neutrophils/100 WBC (Bld) 57.2 % Normal 43.0-75.0 [facility] Comment on above: Performed By: #### C BC #### [facility] [address] [address] [address] Rashmi Nolan Platelet mean volume (Bld) [Entitic vol] 10.5 fL Normal 9.5-13.5 [facility] Comment on above: Performed By: #### C BC #### [facility] [address] [place] [address] Dr. Rashmi Nolan PLT 129 103/ul Critically low 150-450 [facility] Comment on above: Performed By: #### C BC #### [facility] [address] [place] [address] Dr. Rashmi Nolan RBC 2.97 106/ul Critically low 4.70-6.10 [facility] Comment on above: Performed By: #### C BC #### [facility] [address] [place] [address] Dr. Rashmi Nolan WBC 3.3 103/ul Critically low 4.0-11.0 [facility] Comment on above: Performed By: #### C BC #### [facility] [address] [place] [address] Dr. Rashmi Nolan PROTIMEon 12-25-2022 INR Coag (PPP) [Relative time] 1.03 {INR} Normal [facility] Comment on above: Performed By: #### B MP #### [facility] [address] [place] [address] Dr. Rashmi Nolan INR GUIDELINES SEE BELOW Normal [facility] Comment on above: Result Comment: ENOC RED INR: 2.0 - 3.0 CONDITIONS NOT LISTED BELOW 2.5 - 3.5 FOR PROSTHETIC HEART VALVE REPLACEMENT 2.5 - 3.5 RECURRENT THROMBOSIS Performed By: #### B MP #### [facility] [address] [address] [address] Rashmi Nolan PT Coag (PPP) [Time] 10.9 s Normal 9.0-11.6 [facility] Comment on above: Performed By: #### B MP #### [facility] [address] [address] [address] Rashmi Nolan PTTon 12-25-2022 aPTT Coag (Bld) [Time] 25.6 s Normal 22.3-36.2 [facility] Comment on above: Performed By: #### C BC #### [facility] [address] [place] [address] Dr. Rashmi Nolan Ambulatory Visit Summaryon 0 [...] 20 mg Tab) omeprazole (omeprazole 40 mg Tal-) warfarin (warfarin 5 mg Tab) Procedures Performed [...] numbers. This can be done either in [place] or metric measurements. Note that charts and online BMI calculators are available to help you find your BMI quickly and easily without having to do these calculations yourself. To calculate your BMI in [place] ([place] measurements: 1. Measure your weight in [...] fat. ? (more content not included)... Normal [facility] Family Medicine Office/Clini c Noteon 12-21-2022 Family Medicine Office/Clinic Note Chief Complaint Hospital stay follow up HPI Staff Presents for hospital follow up [facility] 12/11-12/14 bleeding ulcer/bloody stools Had Upper and lower scope done. found diverticulosis and bleeding ulcer. Questions/concerns: eczema, why needs to stay on Lasix, why taken off warfarin when to start back up. History of Present Illness pt presents today fro follow up for admission to [facility] for GI bleed Review of [...] today for follow up from admission to [facility] for GI bleed. he received 2 units of blood. and had egd and colonsocopy that show a gastic ulcer and diverticulosis. he was cleared by GI yesterday. he remains off of his warfrin for now. Dr. Silva spoke to Dr. Black ([facility]'s pulverizing and sifting operator) and he was ok with keeping [...] Recorded influenza, whole 05/29/2005 Recorded Normal [facility] Comment on above: Result Comment: Elec tronically [...] numbers. This can be done either in [place] ([place] or metric measurements. Note that charts and online BMI calculators are available to help you find your BMI quickly and easily without having to do these calculations yourself. To calculate your BMI in [place] ([place] measurements: 1. Measure your weight in [...] for Disease Control and Prevention: www.cdc.gov ? [place] [employer]: www.heart.org ? National Heart, Lung, and Blood [place]: www.nhlbi.nih.gov Summary ? Body mass index (BMI) is a number that is calculated from a person's weight and height. ? BMI may help estimate how much of a person's weight is composed of fat. BMI can help identify those who may be at higher risk for certain medical problems. ? BMI can be measured using [place] measurements or metric measurements. ? BMI charts are used to identify whether you are underweight, normal weight, overweight, or obese. This information is not intended to replace advice given to you by your health care provider. Make sure you discuss any questions you have with your health care provider. Document Revised: 04/06/2020 Document Reviewed: 02/12/2020 [employer]pim Patient Education ? 2022 [employer]. [facility] Coding Summaryon 12-19-2022 Coding Summary HTMLBase 64 ZimgermpKLz1hOj+PGhl YWQ+AQ9QXEMgJ68csHWf lI9pF8XSSUoEBcrjUJDC TUnTJgLrqrJtVS3rpAYh ZXJu IC8+VU7zPBBuYsoiaLWd i9K1tRK8C80obf6sSNmt lQF9GDAxToNwgdkqe9re kBr8YSmeZgvyXkCu ZFYekR92TUF6zD80Vx75 sDJjoLFuj7qriFp5NzFq QZNzCWJ8rUcnIAetd3Iw LSNqT02adAOux3I9 IGNvbGxhcHNlOyBlbXB0 pA1hOZdfczzfk2wwxctj Nne3wz79rFGoo1G0mFC4 G5HidcN2RDKgqKDy EizdbFKGcQ6jovilf4yi xhyyMaCiMUOqNMw4UXo5 LYChmQgyJfCzDN07TBU4 BLOscqGdI8KtIKZu bQrlAdG1s1J1Um9VQ9ZO BjsbE6MHNQIXVZxsyWH+ ZL17kd85X4ZzGsriEug8 MLNlGVR0yYM2wB3h CCVvFHsah9G6mXN8C4El biTdlq0rq9lsGXGbSEnf U09yuEGvx1D7LDQylYJ2 ELRkmZezDuAjjK35 Oyc+CTZduNlql0YoWklt a2awi6tceSa8FvcmYVVg bqHblSndDST4n0JaEf4e TNFexES6yWX5hC7j TlBkOzG3NDrxJ681PkSe xXPjSnswT60jY6VfbOG+ ELRtPca2NFNdpPdtWK9q V1GzTHOeheyzvMHy ySgiOG3eUMKxofzdJYFu yJ7sLOCkO7n6VdGoNyT7 YQcoY7JxXVOjdfrsGu23 rD5oSzPlZkL2IJlc N6GpwyI4YULclMVfBBtz FMH0T02mg6C6UIIlJEFo DRF5dYC2wA8phWqxgycv bGVmdDsgdmVydGlj NKhpXAvxY748QEBwjXzj PkNvZGluZyBEYXRlOiAg MDUvMjQvMjAyMzwvdGQ+ OSHcQOX4jLjrKAZp aKRjBYffYt2dzKcoaYtu MU2oSUYrwpbsDBAscY9c ODNcqPSumDxeNP5kCEGu byjzz074IeDuLIY6 NNPsuPQyB4FavC7pEoIy XOAeTBTuC2BagKMsQIer D065BUmqTdK2LCBtdxUz G3NcBQPdwDgeGlB5 p9U6Vy1Ig8SczjdgQ6Fh gCTgQgApQeooNWi0R2Gx PjwvdHI+KB72QYSjQI91 ZTm9GOF5oKxtQKqs UZHjK1JijV4qMbJrUKAv ZGRkOyc+PHRhYmxlIHdp ZHRoPScxMDAlJyBzdHls YA3lMe9cWYKwKXZh jTqdiATyKtOwx0akGIZu BHtbBA9ydOcwL5UldLL6 TPIly3o6Sp84O90oP7Mb dXA+HTFsfYH4kJJ6 rN3sOcZdQsX3GPtzC881 WxNxbXCyZljao8pyk4ow nKr7QzD8NQHwntPauPcz DST9w2JyBt39A47i IHdpZHRoPSIxNSUiIHZh jGkate4csO2mDf3+PGNv dXC8dJC2bH0yOaJzHvF0 XOtiM588SuIidZHt Bkfhu6yex4cdpBo4OrVx YFMlkjSlrMiwFMC3t9Or Cj43A0SznGver0XuXts1 sq03pBCsr3C6yHK9 S9YaSLLmefwntEGqaPwn RA0xSGNalkfnPENwyY3p HFUdP1a4KzQjPxX2EUny B6FxxfY3KNKapOMs CKJccSXEiH1fpowtv9ai ltfbUpGbWYWtVXz3GZu1 ZZMelQttLwXuWRZ4JgZ6 TKH6uLCjwX1qwSmx ukxglP0xFxd+THI9sNLn gCJEWV7fLzmwhRT+PHRk WAD0tKfaTDcmHFVcvN8z WFHcU5h7BqNyWjM2 AGfrD4QnpqB2NWJpuPLx XGTmwWYUlZ2hilepy8zv fseeLaYcENZdXWw4FVb3 LWFsaWduOiBsZWZ0 InZ9EVV1lAHkuV2msDof gwjneY1wOpb+QmlydGgg BBB5FJh5S8QfWll1XJUx tOmnPU5aqNNpDAis Cx4gqXcgoIiuAR9bJZHi yugpg279NoRwf0ccWGXc qRMcDXzfUYJ8I16yx1M6 LOHmDEGyBBX1fLH9 dB7dcArbmswamDCqsWzf tcHecUaqKCqpXNmjA142 EKBhtVahCaYaNFh5Z6Mt Yui0KEFudGzgQN6m aYWkDTcmAv4ztPvjeRqd QQ3eHTSttlvxq802XkXx j6sjXAFjxWZyGJfgITV0 K17mr1A9UTHfNQUr VMZ3dTD9rG2fzVsafpin bGVmdDsgdmVydGljYWwt ZQzaB194ZTMlxXqxFlTw uOs6Q5VqHge4IHHw zZsiCY9dgWYuQIfjCs3w rQhvkSbtTN8gGAKjizwj b214GyBfo6kbTIOrqVXo QLblBMZ5X25jm7I9 LLPpWHPbQGS0sOA8qD8l bGlnbjogbGVmdDsgdmVy xUkoXSjyGGllJ216MLLw cDsnPlBhdGllbnQg QSnvUWw7B7OiEksirRI+ WK20OWBcVF50mZIsfJPb p7btlHx9IlZoIXQxUHD3 uDieKWgsh0MvDGPs Q73ceNDpu7Y0OPGgjFsp sRLkPpZnpLL0zV8oIDfn bufoy1xyffvzFqqsp5er ew07mC00O27sNIlm ZHRoPSIzMCUiIHZhbGln bc5lyY0vJx7+PGNvbCB3 hJU9uR9zCKXiXjV9LYvr Y063FzVvhRWyZmjg t3zyt5hcgCw2HjV2HJFk ewNpiZalHML7r6LwWh10 X46iCUhzPOOuLAKqNAPv DOElnCthkn5doF5g Ii8+OSDnqNO1tHX6cJ3k NuHgJaF1BNljS544TuXq cAIoPcolY71kF9GvsAX+ PGDnKxp7IQEptYjs XZ7vvMCmLBneMp5hVSR9 GnOrVlRbILdgT1UvTLIf sxpshjfpyJW7MRNxDVGi pP61Of8xaUufNXIj xNADpM0abrcit7lgbtit YgFuPQKrTBc0VLj4RYGi bPlmZuJgHTP7EmT0DQE7 pCGzrZ8ahEbdjzpm xX7gP2EhLZIyzmfxGa84 tO7mGnNiFqQ3EQfiNnd+ QHjFJDHJHFCPCTSDOG6K EUhYO49CEV28OY67 xCUfs2B3wUD1Q2LyTMDq yvjyszuepVH7QHExZNMe eV69sFIzWOxaYo1ls0R5 q461UTRuODOlqW33 Hh0yhVbkTSWsmPCRiY1i szedw5mtyhzoElOhDJYx IXd7LWc2NZLllBmeRwXt TEY5TvC5IMF6kNKq pG6czUggszdcqF7mJmc+ MDMvMDQvMTkzNTwvdGQ+ ECSkCYS2hNszNDeuGWYy wP3sJNOfI5d5KzPy XoV9OSajG7QrTQEukppo Lj03yO0eMwKgIkV6RDgf M1QuadN3RKZvwVCaKWju DLL9L24eo4V8OHIz JASoBAN6kXF5bP8ahZeb bjogbGVmdDsgdmVydGlj HMsbBEfmS834VOPmdJds Tep4ZUqhARRaRD98 BO09nNApy4D9yOQ2T4Bl PPXohcreedinvLT2HCKq MBUtcN96gJBaYAkvXm3r i2Q7x829NLLtEBFr tQ41Bg8ctUvlMPDkhWLT xS0kdsbwq6pccfewTkRx IESgASy6ZPr0PTUllSln UkXtSCG5FuH0RTJ6 uGNohR8qyWktnakgcR5l Oyc+TUFMRTwvdGQ+PHRk CHG6lUzhYLkoVGPcwK8x NKQcX8v3LrAbItU6 VKdnE4GrLXIgqwdwIy87 aF2mToIgPwY5EFelZ4Wq wpR0QWRxpSJxTWuoIVH1 J86rz6Q2HMAwMAIf AEU4hRX1aR6cuRzeibbd bGVmdDsgdmVydGljYWwt VSsiG141WLVcaSgtZcPj iFUIqORlWZW5DJ52 GR34S5KuUovyfRYhpNT+ PHRhYmxlIHdpZHRoPScx REVnHeIcbZmaWY7wPj6k ZGVyLWNvbGxhcHNl HsVfq0lmAZGyCNgpMU0k uLwyZ1HypBH1DVXhz5g8 Hh25P85eA3RxoSP+PGNv uLT8lMB1aS8fTfGb DzE5GTgoN968WlGigBMe Zjrbq3ifx0qqoGa7FtOr JVTbgmKwrIwmRYY1a3Xo Mh52Y67iXCeqLIQx RZMdJFEqQUQqyBomyi2i pH5lUt4+SYQryOB7qXB6 gM2vGpOpHkR1GRdhJ665 QwHzzHAjBxjmA10e V2OowXV+QCRsCju4SJNr xXebYQ5jjHKjRUmtYf3j GEV8FxSsAuRiSPeaW2Pi ZGRpbmctcmlnaHQ6 REAnCRWcuF52Vt0bsXxt Is6jTSZgGLS1KTJgwCSm K7HdwQ6sSkUnEDEuPVTi J1SkmVHpXMmdR758 YFhhFeO3JORgqhRiJ5Ba KWJalIevImX3r2C9Og1X tZcrwGPeWJ9rGwFsSGj1 P0WnTkv3VGFfiYxh EQ6ezHOpFApiDt9qgHcd hPmvZG3mLFKzzuuls728 PrNbl7knAKCsnCEjJWlg CDV5U05ri0F2DCYs GIWsDVL9oQS5kS1hhHhu bjogbGVmdDsgdmVydGlj LZvgHFszP660UJTqgNgy AtLTSmb6K8JmRmb3 JSYzuGppSU8mjOEsITje Hp9fkFazkKcbWK1nBNEa uxnyf471BeRwz2weWIXo tJFiOQtlYOA4P97y g0J5AYVsRJNwORU4ePO2 tQ9jxGmruzyiuESttDhf uoBniAgwFCdpMQogZ577 TFFfhJufBp3DDci2 L9SmGol7YGZmjWxeHE8u lAHzUPzmXg2wwBjkgGla DU3xQXWlyvnzc744NdRk q1oiGAOexIUjHHca ZCI5D90xo1S7TXJePBLw GJQ5tZB3hP5voIwpfyld bGVmdDsgdmVydGljYWwt FSonC190VJLtpUdv PlBheWVyOjwvdGQ+PC90 ve31S5CpXvkpZlz6UTUf NBM8bVQ1lB0nUTFhPIbb d5A1zQQ3V4RefaYt ci1 (more content not included)... [facility] 12-18-19 [facility] Case Information Case Priority: None Programs: -- Referral Source: Mobile [employer] Architect Referral Reason: Care coordination Case Type: Transition Care Management Risk Score: -- Case Status: Enrolled (December 17, 2022) Date Assigned: December 17, 2022 Assigned By: Sandra Nieves RN Date Enrolled: December 17, 2022 Assigned Primary Personnel: Sandra Nieves RN Assigned Secondary Personnel: Darcie Hernández RN Case Physician: Sheng Simms Problems Ongoing Acute [...] call office and ask to speak with continuum of care manager if he had any questions or concerns. Communication Events Date: December 17, 2022 Method: Phone call Type: Outbound Duration (min): 5 Outcome: Case discussion Contact Type: Patient Contact Name: RY LERNER Notes: TCM #1-see summary note. Created By: Ezequiel PERSAUD, Sandra Calix [facility] CBC AUTO DIFFon 12-14-2022 BASO # 0.0 103/ul Normal 0.0-0.1 [facility] Comment on above: Performed By: #### C BC #### [facility] [address] [place] [address] Dr. Rashmi Nolan Basophils/100 WBC (Bld) 0.6 % Normal 0.2-2.0 [facility] Comment on above: Performed By: #### C BC #### [facility] [address] [place] [address] Dr. Rashmi Nolan EO # 0.4 103/ul Normal 0.0-0.7 [facility] Comment on above: Performed By: #### C BC #### [facility] [address] [address] [address] Rashmi Nolan Eosinophils/100 WBC (Bld) 11.9 % Critically high 0.9-7.0 [facility] Comment on above: Performed By: #### C BC #### [facility] [address] [address] [address] Rashmi Nolan Erythrocyte distribution width (RBC) [Ratio] 15.2 % Critically high 11.0-15.0 [facility] Comment on above: Performed By: #### C BC #### [facility] [address] [address] [address] Rashmi Nolan Hematocrit (Bld) [Volume fraction] 26.3 % Critically low 42.0-54.0 [facility] Comment on above: Performed By: #### C BC #### [facility] [address] [place] [address] Dr. Rashmi Nolan Hemoglobin (Bld) [Mass/Vol] 8.9 g/dL Critically low 14.0-18.0 [facility] Comment on above: Performed By: #### C BC #### [facility] [address] [place] [address] Dr. Rashmi Nolan IG # 0.01 10e3/ul Normal 0.00-0.03 [facility] Comment on above: Performed By: #### C BC #### [facility] [address] [place] [address] Dr. Rashmi Nolan IG % 0.3 % Normal 0.0-0.5 [facility] Comment on above: Performed By: #### C BC #### [facility] [address] [place] [address] Dr. Rashmi Nolan LYMPH # 0.8 103/ul Critically low 1.2-3.8 [facility] Comment on above: Performed By: #### C BC #### [facility] [address] [place] [address] Dr. Rashmi Nolan Lymphocytes/100 WBC (Bld) 25.1 % Normal 20.5-60.0 [facility] Comment on above: Performed By: #### C BC #### [facility] [address] [place] [address] Dr. Rashmi Nolan MANUAL DIFF REQ NO Normal [facility] Comment on above: Performed By: #### C BC #### [facility] [address] [place] [address] Dr. Rashmi Nolan MCH (RBC) [Entitic mass] 33.0 pg Normal 25.9-34.0 The [facility] Comment on above: Performed By: #### C BC #### [facility] [address] [place] [address] Dr. Rashmi Nolan MCHC (RBC) [Mass/Vol] 33.8 g/dL Normal 29.9-35.2 The [facility] Comment on above: Performed By: #### C BC #### [facility] [address] [place] [address] Dr. Rashmi Nolan MCV (RBC) [Entitic vol] 97.4 fL Critically high 80.0-94.0 [facility] Comment on above: Performed By: #### C BC #### [facility] [address] [address] [address] Rashmi Nolan MONO # 0.3 103/ul Normal 0.3-0.8 [facility] Comment on above: Performed By: #### C BC #### [facility] [address] [address] [address] Rashmi Nolan Monocytes/100 WBC (Bld) 9.0 % Normal 1.7-12.0 [facility] Comment on above: Performed By: #### C BC #### [facility] [address] [place] [address] Dr. Rashmi Nolan NEUT # 1.7 103/ul Normal 1.4-6.5 [facility] Comment on above: Performed By: #### C BC #### [facility] [address] [place] [address] Dr. Rashmi Nolan Neutrophils/100 WBC (Bld) 53.1 % Normal 43.0-75.0 The [facility] Comment on above: Performed By: #### C BC #### [facility] [address] [place] [address] Dr. Rashmi Nolan Platelet mean volume (Bld) [Entitic vol] 10.2 fL Normal 9.5-13.5 [facility] Comment on above: Performed By: #### C BC #### [facility] [address] [place] [address] Dr. Rashmi Nolan PLT 139 103/ul Critically low 150-450 [facility] Comment on above: Performed By: #### C BC #### [facility] [address] [place], [place] [id number] Dr. Rashmi Nolan RBC 2.70 106/ul Critically low 4.70-6.10 [facility] Comment on above: Performed By: #### C BC #### [facility] [address] [place] [address] Dr. Rashmi Nolan WBC 3.1 103/ul Critically low 4.0-11.0 [facility] Comment on above: Performed By: #### C #### [facility] [address] [place] [address] Dr. Rashmi Nolan MAGR Intraoperative Recordon 12-14-2022 MAGR Intraoperative Record MAGR Intra-Op Record Summary Primary Physician: Ward Martinez DO Finalized Date/Time: 12/14/22 09:30:19 Pt. Name: RY LERNER PERRY Leblanc/Sex: 1935 MALE Med Rec #: [id number] Physician: Ward Martinez DO Financial #: [id number] Pt. Type: D Room/Bed: / Admit/Disch: 12/10/22 [...] Andrew DO Role Performed Surgeon - Primary Windshield Wiper Repairer Windshield Wiper Repairer Time In 12/10/22 15:05:00 12/10/22 14:54:00 12/10/22 14:54:00 Time Out 12/10/22 15:30:00 12/10/22 15:30:00 12/10/22 15:30:00 Procedure Carpal Tunnel Carpal Tunnel Carpal Tunnel Release(Left) Release(Left) Release(Left) Last Modified By: Maile Palmer RN, Barbara RN Long, Barbara RN 12/10/22 15:29:30 12/10/22 15:29:30 12/10/22 15:29:30 Entry 4 Entry 5 Case Attendee Macie Licea CST, CST, Brandi Role Performed Guest Service Host Scrub Personnel Time In 12/10/22 14:54:00 12/10/22 [...] By Maile Palmer RN Scrub 10% Povidone-Iodine Pickering Prep Area (Im.270) Arm lower Prep Area [...] injury Counts (more content not included)... Normal [place] Outside Colonoscopyon 2022 Outside Colonoscopy 104.37 [id number] #1.00CD:127 Normal [facility] Outside [facility] Correspo ndence 12-14-2022 Outside [facility] Correspondence 104.37 [id number] #1.00CD:127 [facility] Outside [facility] Correspondence 104.36 [id number] #1.00CD:127 [facility] Outside [facility] Correspondence 104.37 [id number] #1.00CD:127 [facility] Outside [facility] Correspondence [id number] #1.00CD:127 Normal [facility] Outside Hospital Correspondence [id number] #1.00CD:127 Normal [facility] PROF CHEM 8 (BAS METB)on Anion gap [Moles/Vol] 12.6 mmol/L Normal [facility] Comment on above: Performed By: #### B MP #### [facility] [address] [address] [address] Rashmi Nolan Calcium [Mass/Vol] 9.7 mg/dL Normal 8.5-10.1 [facility] Comment on above: Performed By: #### B MP #### [facility] [address] [place] [address] Dr. Rashmi Nolan Chloride [Moles/Vol] 108 mmol/L Critically high 98-107 [facility] Comment on above: Performed By: #### B MP #### [facility] [address] [address] [address] Rashmi Nolan CO2 [Moles/Vol] 24.5 mmol/L Normal 21.0-32.0 [facility] Comment on above: Performed By: #### B MP #### [facility] [address] [address] [address] Rashmi Nolan Creatinine [Mass/Vol] 1.68 mg/dL Critically high 0.70-1.30 [facility] Comment on above: Performed By: #### B MP #### [facility] [address] [address] [address] Rashmi Nolan EGFR-AF CENTRAL AFRICAN 47 mL/min/1.73m2 Critically low >=60 [facility] Comment on above: Performed By: #### B MP #### [facility] [address] [address] [address] Rashmi Nolan EGFR-NON AF CENTRAL AFRICAN 39 mL/min/1.73m2 Critically low >=60 [facility] Comment on above: Performed By: #### B MP #### [facility] [address] [place] [address] Dr. Rashmi Nolan Glucose [Mass/Vol] 91 mg/dL Normal 74-106 [facility] Comment on above: Performed By: #### B MP #### [facility] [address] [place] [address] Dr. Rashmi Nolan Potassium [Moles/Vol] 5.1 mmol/L Normal 3.5-5.1 [facility] Comment on above: Performed By: #### B MP #### [facility] [address] [address] [address] Rashmi Nolan Sodium [Moles/Vol] 140 mmol/L Normal 136-145 [facility] Comment on above: Performed By: #### B MP #### [facility] [address] [place] [address] Dr. Rashmi Nolan Urea nitrogen [Mass/Vol] 27.0 mg/dL Critically high 7.0-18.0 [facility] Comment on above: Performed By: #### B MP #### [facility] [address] [place] [address] Dr. Rashmi Nolan Urea nitrogen/Creatinine [Mass ratio] 16.1 mg/mg Normal [facility] Comment on above: Performed By: #### B MP #### [facility] [address] [place] [address] Dr. Rashmi Nolan Transfer Inon 12-14-2022 Transfer In [id number] #1.00CD:127 Normal [facility] CBC AUTO DIFFon 12-13-2022 BASO # 0.0 103/ul Normal 0.0-0.1 [facility] Comment on above: Performed By: #### C BC #### [facility] [address] [place] [address] Dr. Rashmi Nolan Basophils/100 WBC (Bld) 0.6 % Normal 0.2-2.0 [facility] Comment on above: Performed By: #### C BC #### [facility] [address] [place] [address] Dr. Rashmi Nolan EO # 0.4 103/ul Normal 0.0-0.7 [facility] Comment on above: Performed By: #### C BC #### [facility] [address] [place] [address] Dr. Rashmi Nolan Eosinophils/100 WBC (Bld) 10.3 % Critically high 0.9-7.0 [facility] Comment on above: Performed By: #### C BC #### [facility] [address] [place] [address] Dr. Rashmi Nolan Erythrocyte distribution width (RBC) [Ratio] 15.8 % Critically high 11.0-15.0 [facility] Comment on above: Performed By: #### C BC #### [facility] [address] [place] [address] Dr. Rashmi Nolan Hematocrit (Bld) [Volume fraction] 25.7 % Critically low 42.0-54.0 [facility] Comment on above: Performed By: #### C BC #### [facility] [address] [place] [address] Dr. Rashmi Nolan Hemoglobin (Bld) [Mass/Vol] 8.5 g/dL Critically low 14.0-18.0 [facility] Comment on above: Performed By: #### C BC #### [facility] [address] [place] [address] Dr. Rashmi Nolan IG # 0.00 10e3/ul Normal 0.00-0.03 [facility] Comment on above: Performed By: #### C BC #### [facility] [address] [place] [address] Dr. Rashmi Nolan IG % 0.0 % Normal 0.0-0.5 [facility] Comment on above: Performed By: #### C BC #### [facility] [address] [place] [address] Dr. Rashmi Nolan LYMPH # 0.8 103/ul Critically low 1.2-3.8 [facility] Comment on above: Performed By: #### C BC #### [facility] [address] [place] [address] Dr. Rashmi Nolan Lymphocytes/100 WBC (Bld) 23.5 % Normal 20.5-60.0 [facility] Comment on above: Performed By: #### C BC #### [facility] [address] [place] [address] Dr. Rashmi Nolan MANUAL DIFF REQ NO Normal [facility] Comment on above: Performed By: #### C BC #### [facility] [address] [place] [address] Dr. Rashmi Nolan MCH (RBC) [Entitic mass] 32.9 pg Normal 25.9-34.0 [facility] Comment on above: Performed By: #### C BC #### [facility] [address] [place] [address] Dr. Rashmi Nolan MCHC (RBC) [Mass/Vol] 33.1 g/dL Normal 29.9-35.2 [facility] Comment on above: Performed By: #### C BC #### [facility] [address] [place] [address] Dr. Rashmi Nolan MCV (RBC) [Entitic vol] 99.6 fL Critically high 80.0-94.0 [facility] Comment on above: Performed By: #### C BC #### [facility] [address] [place] [address] Dr. Rashmi Nolan MONO # 0.3 103/ul Normal 0.3-0.8 [facility] Comment on above: Performed By: #### C BC #### [facility] [address] [place] [address] Dr. Rashmi Nolan Monocytes/100 WBC (Bld) 8.9 % Normal 1.7-12.0 [facility] Comment on above: Performed By: #### C BC #### [facility] [address] [place] [address] Dr. Rashmi Nolan NEUT # 2.0 103/ul Normal 1.4-6.5 The [facility] Comment on above: Performed By: #### C BC #### [facility] [address] [place] [address] Dr. Rashmi Nolan Neutrophils/100 WBC (Bld) 56.7 % Normal 43.0-75.0 [facility] Comment on above: Performed By: #### C BC #### [facility] [address] [address] [address] aRshmi Nolan Platelet mean volume (Bld) [Entitic vol] 10.5 fL Normal 9.5-13.5 [facility] Comment on above: Performed By: #### C BC #### [facility] [address] [address] [address] Rashmi Nolan PLT 134 103/ul Critically low 150-450 [facility] Comment on above: Performed By: #### C BC #### [facility] [address] [address] [address] Rashmi Nolan RBC 2.58 106/ul Critically low 4.70-6.10 [facility] Comment on above: Performed By: #### C BC #### [facility] [address] [address] [address] Rashmi Nolan WBC 3.6 103/ul Critically low 4.0-11.0 [facility] Comment on above: Performed By: #### C BC #### [facility] [address] [address] [address] Rashmi Nolan PROF CHEM 8 (BAS METB)on Anion gap [Moles/Vol] 11.7 mmol/L Normal [facility] Comment on above: Performed By: #### C BC #### [facility] [address] [address] [address] Rashmi Nolan Calcium [Mass/Vol] 9.5 mg/dL Normal 8.5-10.1 [facility] Comment on above: Performed By: #### C BC #### [facility] [address] [address] [address] Rashmi Nolan Chloride [Moles/Vol] 110 mmol/L Critically high 98-107 [facility] Comment on above: Performed By: #### C BC #### [facility] [address] [address] [address] Rashmi Nolan CO2 [Moles/Vol] 25.1 mmol/L Normal 21.0-32.0 [facility] Comment on above: Performed By: #### C BC #### [facility] [address] [address] [address] Rashmi Nolan Creatinine [Mass/Vol] 1.69 mg/dL Critically high 0.70-1.30 [facility] Comment on above: Performed By: #### C BC #### [facility] [address] [address] [address] Rashmi Nolan EGFR-AF CENTRAL AFRICAN 47 mL/min/1.73m2 Critically low >=60 [facility] Comment on above: Performed By: #### C BC #### [facility] [address] [address] [address] Rashmi Nolan EGFR-NON AF CENTRAL AFRICAN 38 mL/min/1.73m2 Critically low >=60 [facility] Comment on above: Performed By: #### C BC #### [facility] [address] [address] [address] Rashmi Nolan Glucose [Mass/Vol] 93 mg/dL Normal 74-106 [facility] Comment on above: Performed By: #### C BC #### [facility] [address] [address] [address] Rashmi Nolan Potassium [Moles/Vol] 5.8 mmol/L Critically high 3.5-5.1 [facility] Comment on above: Performed By: #### C BC #### [facility] [address] [address] [address] Rashmi Nolan Sodium [Moles/Vol] 141 mmol/L Normal 136-145 [facility] Comment on above: Performed By: #### C BC #### [facility] [address] [address] [address] Rashmi Nolan Urea nitrogen [Mass/Vol] 35.0 mg/dL Critically high 7.0-18.0 [facility] Comment on above: Performed By: #### C BC #### [facility] [address] [address] [address] Rashmi Nolan Urea nitrogen/Creatinine [Mass ratio] 20.7 mg/mg Normal [facility] Comment on above: Performed By: #### C BC #### [facility] [address] [address] [address] Rashmi Nolan ABO RH RETYPEon 12-12-2022 ABO and Rh group Nom (Bld) DONE Normal [facility] Comment on above: Performed By: #### C BC #### [facility] [address] [place] [address] Dr. Rashmi Nolan Auth for Release of Medical Recordson 12-12-2022 Auth for Release of Medical Records [id number] #1.00CD:127 Normal [facility] CBC AUTO DIFFon 12-12-2022 BASO # 0.0 103/ul Normal 0.0-0.1 [facility] Comment on above: Performed By: #### C BC #### [facility] [address] [place] [address] Dr. Rashmi Nolan Basophils/100 WBC (Bld) 0.6 % Normal 0.2-2.0 [facility] Comment on above: Performed By: #### C BC #### [facility] [address] [address] [address] Rashmi Nolan EO # 0.3 103/ul Normal 0.0-0.7 [facility] Comment on above: Performed By: #### C BC #### [facility] [address] [address] [address] Rashmi Nolan Eosinophils/100 WBC (Bld) 7.6 % Critically high 0.9-7.0 [facility] Comment on above: Performed By: #### C BC #### [facility] [address] [address] [address] Rashmi Nolan Erythrocyte distribution width (RBC) [Ratio] 16.4 % Critically high 11.0-15.0 [facility] Comment on above: Performed By: #### C BC #### [facility] [address] [place] [address] Dr. Rashmi Nolan Hematocrit (Bld) [Volume fraction] 27.2 % Critically low 42.0-54.0 [facility] Comment on above: Performed By: #### C BC #### [facility] [address] [address] [address] Rashmi Nolan Hemoglobin (Bld) [Mass/Vol] 9.1 g/dL Critically low 14.0-18.0 [facility] Comment on above: Performed By: #### C BC #### [facility] [address] [address] [address] Rashmi Nolan IG # 0.01 10e3/ul Normal 0.00-0.03 [facility] Comment on above: Performed By: #### C BC #### [facility] [address] [place] [address] Dr. Rashmi Nolan IG % 0.3 % Normal 0.0-0.5 [facility] Comment on above: Performed By: #### C BC #### [facility] [address] [place] [address] Dr. Rashmi Nolan LYMPH # 0.9 103/ul Critically low 1.2-3.8 [facility] Comment on above: Performed By: #### C BC #### [facility] [address] [place] [address] Dr. Rashmi Nolan Lymphocytes/100 WBC (Bld) 25.3 % Normal 20.5-60.0 [facility] Comment on above: Performed By: #### C BC #### [facility] [address] [place] [address] Dr. Rashmi Nolan MANUAL DIFF REQ NO Normal [facility] Comment on above: Performed By: #### C BC #### [facility] [address] [place] [address] Dr. Rashmi Nolan MCH (RBC) [Entitic mass] 33.0 pg Normal 25.9-34.0 The [facility] Comment on above: Performed By: #### C BC #### [facility] [address] [place] [address] Dr. Rashmi Nolan MCHC (RBC) [Mass/Vol] 33.5 g/dL Normal 29.9-35.2 The [facility] Comment on above: Performed By: #### C BC #### [facility] [address] [address] [address] Rashmi Nolan MCV (RBC) [Entitic vol] 98.6 fL Critically high 80.0-94.0 [facility] Comment on above: Performed By: #### C BC #### [facility] [address] [address] [address] Rashmi Nolan MONO # 0.3 103/ul Normal 0.3-0.8 [facility] Comment on above: Performed By: #### C BC #### [facility] [address] [address] [address] Rashmi Nolan Monocytes/100 WBC (Bld) 8.1 % Normal 1.7-12.0 [facility] Comment on above: Performed By: #### C BC #### [facility] [address] [address] [address] Rashmi Nolan NEUT # 2.0 103/ul Normal 1.4-6.5 [facility] Comment on above: Performed By: #### C BC #### [facility] [address] [address] [address] Rashmi Nolan Neutrophils/100 WBC (Bld) 58.1 % Normal 43.0-75.0 [facility] Comment on above: Performed By: #### C BC #### [facility] [address] [address] [address] Rashmi Nolan Platelet mean volume (Bld) [Entitic vol] 10.0 fL Normal 9.5-13.5 The [facility] Comment on above: Performed By: #### C BC #### [facility] [address] [address] [address] Rashmi Nolan PLT 147 103/ul Critically low 150-450 [facility] Comment on above: Performed By: #### C BC #### [facility] [address] [address] [address] Rashmi Nolan RBC 2.76 106/ul Critically low 4.70-6.10 [facility] Comment on above: Performed By: #### C BC #### [facility] [address] [address] [address] Rashmi Nolan WBC 3.4 103/ul Critically low 4.0-11.0 [facility] Comment on above: Performed By: #### C BC #### [facility] [address] [address] [address] Rashmi Nolan BASO # 0.0 103/ul Normal 0.0-0.1 The [facility] Comment on above: Performed By: #### C BC #### [facility] [address] [address] [address] Rashmi Nolan Basophils/100 WBC (Bld) 0.6 % Normal 0.2-2.0 The [facility] Comment on above: Performed By: #### C BC #### [facility] [address] [address] [address] Rashmi Nolan EO # 0.2 103/ul Normal 0.0-0.7 The [facility] Comment on above: Performed By: #### C BC #### [facility] [address] [place] [address] Dr. Rashmi Nolan Eosinophils/100 WBC (Bld) 6.6 % Normal 0.9-7.0 The [facility] Comment on above: Performed By: #### C BC #### [facility] [address] [place] [address] Dr. Rashmi Nolan Erythrocyte distribution width (RBC) [Ratio] 16.4 % Critically high 11.0-15.0 The [facility] Comment on above: Performed By: #### C BC #### [facility] [address] [place] [address] Dr. Rashmi Nolan Hematocrit (Bld) [Volume fraction] 26.1 % Critically low 42.0-54.0 The [facility] Comment on above: Performed By: #### C BC #### [facility] [address] [place] [address] Dr. Rashmi Nolan Hemoglobin (Bld) [Mass/Vol] 8.5 g/dL Critically low 14.0-18.0 The [facility] Comment on above: Result Comment: rcvd . blood Performed By: #### C BC #### [facility] [address] [address] [address] Rashmi Nolan IG # 0.01 10e3/ul Normal 0.00-0.03 [facility] Comment on above: Performed By: #### C BC #### [facility] [address] [place] [address] Dr. Rashmi Nolan IG % 0.3 % Normal 0.0-0.5 [facility] Comment on above: Performed By: #### C BC #### [facility] [address] [place] [address] Dr. Rashmi Nolan LYMPH # 0.7 103/ul Critically low 1.2-3.8 [facility] Comment on above: Performed By: #### C BC #### [facility] [address] [place] [address] Dr. Rashmi Nolan Lymphocytes/100 WBC (Bld) 20.2 % Critically low 20.5-60.0 [facility] Comment on above: Performed By: #### C BC #### [facility] [address] [place] [address] Dr. Rashmi Nolan MANUAL DIFF REQ NO Normal [facility] Comment on above: Performed By: #### C BC #### [facility] [address] [place] [address] Dr. Rashmi Nolan MCH (RBC) [Entitic mass] 32.7 pg Normal 25.9-34.0 [facility] Comment on above: Performed By: #### C BC #### [facility] [address] [place] [address] Dr. Rashmi Nolan MCHC (RBC) [Mass/Vol] 32.6 g/dL Normal 29.9-35.2 [facility] Comment on above: Performed By: #### C BC #### [facility] [address] [place] [address] Dr. Rashmi Nolan MCV (RBC) [Entitic vol] 100.4 fL Critically high 80.0-94.0 [facility] Comment on above: Performed By: #### C BC #### [facility] [address] [address] [address] Rashmi Nolan MONO # 0.3 103/ul Normal 0.3-0.8 The [facility] Comment on above: Performed By: #### C BC #### [facility] [address] [address] [address] Rashmi Nolan Monocytes/100 WBC (Bld) 7.7 % Normal 1.7-12.0 The [facility] Comment on above: Performed By: #### C BC #### [facility] [address] [place] [address] Dr. Rashmi Nolan NEUT # 2.3 103/ul Normal 1.4-6.5 The [facility] Comment on above: Performed By: #### C BC #### [facility] [address] [place] [address] Dr. Rashmi Nolan Neutrophils/100 WBC (Bld) 64.6 % Normal 43.0-75.0 [facility] Comment on above: Performed By: #### C BC #### [facility] [address] [place] [address] Dr. Rashmi Nolan Platelet mean volume (Bld) [Entitic vol] 9.9 fL Normal 9.5-13.5 [facility] Comment on above: Performed By: #### C BC #### [facility] [address] [place] [address] Dr. Rsahmi Nolan PLT 130 103/ul Critically low 150-450 [facility] Comment on above: Performed By: #### C BC #### [facility] [address] [place] [address] Dr. Rashmi Nolan RBC 2.60 106/ul Critically low 4.70-6.10 [facility] Comment on above: Performed By: #### C BC #### [facility] [address] [place] [address] Dr. Rashmi Nolan WBC 3.6 103/ul Critically low 4.0-11.0 [facility] [facility] Comment on above: Performed By: #### C BC #### [facility] [address] [place] [address] Dr. Rashmi Nolan PRBC LEUKOREDUCEDon 12-13-19 ABO and Rh group Nom (Bld) Cross Match Result Compatible Unit Blood Type O Pos Unit Number [id number] Status Information Issued Product ID Red Blood Cells Product Code [id number] Issue Date/Time [id number] Cross Match Result Compatible Unit Blood Type O Pos Unit Number [id number] Status Information Issued Product ID Red Blood Cells Product Code [id number] Issue Date/Time [id number] Normal [facility] Comment on above: Performed By: #### C BC #### [facility] [address] [place] [address] Dr. Rashmi Nolan PROF CHEM 8 (BAS METB)on Anion gap [Moles/Vol] 14.8 mmol/L Normal [facility] Comment on above: Performed By: #### B MP #### [facility] [address] [place] [address] Dr. Rashmi Nolan Calcium [Mass/Vol] 9.2 mg/dL Normal 8.5-10.1 [facility] Comment on above: Performed By: #### B MP #### [facility] [address] [address] [address] Rashmi Nolan Chloride [Moles/Vol] 110 mmol/L Critically high 98-107 [facility] Comment on above: Performed By: #### B MP #### [facility] [address] [address] [address] Rashmi Nolan CO2 [Moles/Vol] 23.5 mmol/L Normal 21.0-32.0 [facility] Comment on above: Performed By: #### B MP #### [facility] [address] [place] [address] Dr. Rashmi Nolan Creatinine [Mass/Vol] 1.77 mg/dL Critically high 0.70-1.30 [facility] Comment on above: Performed By: #### B MP #### [facility] [address] [address] [address] Rashmi Nolan EGFR-AF CENTRAL AFRICAN 44 mL/min/1.73m2 Critically low >=60 [facility] Comment on above: Performed By: #### B MP #### [facility] [address] [address] [address] Rashmi Nolan EGFR-NON AF CENTRAL AFRICAN 36 mL/min/1.73m2 Critically low >=60 [facility] Comment on above: Performed By: #### B MP #### [facility] [address] [address] [address] Rashmi Nolan Glucose [Mass/Vol] 103 mg/dL Normal 74-106 [facility] Comment on above: Performed By: #### B MP #### [facility] [address] [address] [address] Rashmi Nolan Potassium [Moles/Vol] 5.3 mmol/L Critically high 3.5-5.1 [facility] Comment on above: Performed By: #### B MP #### [facility] [address] [address] [address] Rashmi Nolan Sodium [Moles/Vol] 143 mmol/L Normal 136-145 [facility] Comment on above: Performed By: #### B MP #### [facility] [address] [address] [address] Rashmi oNlan Urea nitrogen [Mass/Vol] 54.0 mg/dL Critically high 7.0-18.0 [facility] Comment on above: Performed By: #### B MP #### [facility] [address] [address] [address] Rashmi Nolan Urea nitrogen/Creatinine [Mass ratio] 30.5 mg/mg Normal [facility] Comment on above: Performed By: #### B MP #### [facility] [address] [address] [address] Rashmi Nolan Auto Diffon 12-11-2022 Basophils/100 WBC (Bld) 0.5 % Normal 0.0-2.0 [facility] Comment on above: Order Comment: Order Added by Discern Expert. Performed By: #### 2 [id number], [id number], [id number] ####[facility] [address] [place] [address] Basophils/Leukocytes Auto (Bld) [Pure # fraction] 0.0 E9/L Normal 0.0-0.2 [facility] Comment on above: Order Comment: Order Added by Discern Expert. Performed By: #### 2 244555, [id number], [id number] ####[address] [address] Eosinophils/100 WBC (Bld) 3.4 % Normal 0.0-8.0 [facility] Comment on above: Order Comment: Order Added by Discern Expert. Performed By: #### 2 868168, 7792504, [id number] ####[address] [address] Eosinophils/Leukocyte s Auto (Bld) [Pure # fraction] 0.2 E9/L Normal 0.0-0.5 [facility] Comment on above: Order Comment: Order Added by Ronnie Expert. Performed By: #### 2 581788, [id number], [id number] ####[address] [address] Lymphocytes/100 WBC (Bld) 17.1 % Normal 14.0-50.0 [facility] Comment on above: Order Comment: Order Added by Discern Expert. Performed By: #### 2 218944, 2566731, [id number] ####[address] [address] Lymphocytes/Leukocyte s Auto (Bld) [Pure # fraction] 0.9 E9/L Low 1.0-4.0 [facility] Comment on above: Order Comment: Order Added by Discern Expert. Performed By: #### 2 364162, 8492739, [id number] ####[address] [address] Monocytes/100 WBC (Bld) 6.1 % Normal 4.0-14.0 [facility] Comment on above: Order Comment: Order Added by Ronnie Expert. Performed By: #### 2 128898, [id number], [id number] ####[address] [address] Monocytes/Leukocytes Auto (Bld) [Pure # fraction] 0.3 E9/L Normal 0.2-1.0 [facility] Comment on above: Order Comment: Order Added by Discern Expert. Performed By: #### 2 742218, 0278039, [id number] ####[address] [place] [address] Neutrophils/100 WBC (Bld) 72.9 % Normal 36.0-75.0 [facility] Comment on above: Order Comment: Order Added by Discern Expert. Performed By: #### 2 786827, 0588040, [id number] ####[address] [place] [address] Neutrophils/Leukocyte s Auto (Bld) [Pure # fraction] 3.8 E9/L Normal 2.0-7.5 [facility] Comment on above: Order Comment: Order Added by Discern Expert. Performed By: #### 2 399798, 7720313, [id number] ####[address] [address] CBC AUTO DIFFon 12-11-2022 BASO # 0.0 103/ul Normal 0.0-0.1 [facility] Comment on above: Performed By: #### C BC #### [facility] [address] [place] [address] Dr. Rashmi Nolan Basophils/100 WBC (Bld) 0.4 % Normal 0.2-2.0 [facility] Comment on above: Performed By: #### C BC #### [facility] [address] [place] [address] Dr. Rashmi Nolan EO # 0.2 103/ul Normal 0.0-0.7 [facility] Comment on above: Performed By: #### C BC #### [facility] [address] [address] [address] Rashmi Nolan Eosinophils/100 WBC (Bld) 5.2 % Normal 0.9-7.0 [facility] Comment on above: Performed By: #### C BC #### [facility] [address] [place] [address] Dr. Rashmi Nolan Erythrocyte distribution width (RBC) [Ratio] 14.6 % Normal 11.0-15.0 [facility] Comment on above: Performed By: #### C BC #### [facility] [address] [place] [address] Dr. Rashmi Nolan Hematocrit (Bld) [Volume fraction] 23.7 % Critically low 42.0-54.0 [facility] Comment on above: Performed By: #### C BC #### [facility] [address] [place] [address] Dr. Rashmi Nolan Hemoglobin (Bld) [Mass/Vol] 7.8 g/dL Critically low 14.0-18.0 [facility] Comment on above: Performed By: #### C BC #### [facility] [address] [place] [address] Dr. Rashmi Nolan IG # 0.01 10e3/ul Normal 0.00-0.03 [facility] Comment on above: Performed By: #### C BC #### [facility] [address] [place] [address] Dr. Rashmi Nolan IG % 0.2 % Normal 0.0-0.5 [facility] Comment on above: Performed By: #### C BC #### [facility] [address] [place] [address] Dr. Rashmi Nolan LYMPH # 0.9 103/ul Critically low 1.2-3.8 [facility] Comment on above: Performed By: #### C BC #### [facility] [address] [place] [address] Dr. Rashmi Nolan Lymphocytes/100 WBC (Bld) 19.6 % Critically low 20.5-60.0 [facility] Comment on above: Performed By: #### C BC #### [facility] [address] [place] [address] Dr. Rashmi Nolan MANUAL DIFF REQ NO Normal [facility] Comment on above: Performed By: #### C BC #### [facility] [address] [place] [address] Dr. Rashmi Nolan MCH (RBC) [Entitic mass] 34.7 pg Critically high 25.9-34.0 [facility] Comment on above: Performed By: #### C BC #### [facility] [address] [place] [address] Dr. Rashmi Nolan MCHC (RBC) [Mass/Vol] 32.9 g/dL Normal 29.9-35.2 [facility] Comment on above: Performed By: #### C BC #### [facility] [address] [place] [address] Dr. Rashmi Nolan MCV (RBC) [Entitic vol] 105.3 fL Critically high 80.0-94.0 [facility] Comment on above: Performed By: #### C BC #### [facility] [address] [place] [address] Dr. Rashmi Nolan MONO # 0.3 103/ul Normal 0.3-0.8 [facility] Comment on above: Performed By: #### C BC #### [facility] [address] [place] [address] Dr. Rashmi Nolan Monocytes/100 WBC (Bld) 7.2 % Normal 1.7-12.0 [facility] Comment on above: Performed By: #### C BC #### [facility] [address] [place] [address] Dr. Rashmi Nolan NEUT # 3.0 103/ul Normal 1.4-6.5 [facility] Comment on above: Performed By: #### C BC #### [facility] [address] [place] [address] Dr. Rashmi Nolan Neutrophils/100 WBC (Bld) 67.4 % Normal 43.0-75.0 [facility] Comment on above: Performed By: #### C BC #### [facility] [address] [place] [address] Dr. Rashmi Nolan Platelet mean volume (Bld) [Entitic vol] 9.8 fL Normal 9.5-13.5 [facility] Comment on above: Performed By: #### C BC #### [facility] [address] [place] [address] Dr. Rashmi Nolan PLT 156 103/ul Normal 150-450 [facility] Comment on above: Performed By: #### C BC #### [facility] [id number] Rashmi Nolan RBC 2.25 106/ul Critically low 4.70-6.10 [facility] Comment on above: Performed By: #### C BC #### [facility] [id number] Rashmi Nolan WBC 4.5 103/ul Normal 4.0-11.0 [facility] Comment on above: Performed By: #### C BC #### [facility] [address] [address] [address] Rashmi Nolan CBC w/ Auto Diffon 3 Erythrocyte distribution width (RBC) [Ratio] 14.9 % High 10.9-14.2 [facility] Comment on above: Performed By: #### 2 521007, 5697004, [id number] ####[facility] [address] [place] [address] Hematocrit (Bld) [Volume fraction] 24.1 % Low 37.7-49.0 [facility] Comment on above: Performed By: #### 2 082822, 9854970, [id number] ####[facility] [address] [place] [address] Hemoglobin (Bld) [Mass/Vol] 8.1 g/dL Low 13.5-17.5 [facility] Comment on above: Performed By: #### 2 366091, 5308484, [id number] ####[facility] [address] [place] [address] MCH (RBC) [Entitic mass] 34.0 pg Normal 27.0-34.0 [facility] Comment on above: Performed By: #### 2 832286, 0480255, [id number] ####[facility] [address] [place] [address] MCHC (RBC) [Mass/Vol] 33.6 g/dL Normal 31.4-36.0 [facility] Comment on above: Performed By: #### 2 512492, 5515441, [id number] ####[address] MCV (RBC) [Entitic vol] 101.1 fL High 80.0-100.0 [facility] Comment on above: Performed By: #### 2 015259, 5027846, [id number] ####[address] Platelet mean volume (Bld) [Entitic vol] 8.9 fL Normal 6.4-10.8 [facility] Comment on above: Performed By: #### 2 114164, 0428863, [id number] ####[address] [address] Platelets (Bld) [#/Vol] 177.0 E9/L Normal 150.0-500.0 [facility] Comment on above: Performed By: #### 2 656612, 1488399, 98586069 ####[address] RBC (Bld) [#/Vol] 2.4 E12/L Low 4.3-5.9 [facility] Comment on above: Performed By: #### 2 202087, 7605215, 36014449 ####[address] [address] WBC corrected for nucl RBC Auto (Bld) [#/Vol] 5.2 E9/L Normal 4.0-11.0 [facility] Comment on above: Performed By: #### 2 511891, 8867743, [id number] ####[address] [address] CHEMISTRYOrdered By: SYSTEM SYSTEM on 12-11-2022 Iron binding capacity [Mass/Vol] 417 ug/dL High 250 - 400 mcg/dL [facility] Remisol Transferrin [Mass/Vol] 298 mg/dL Normal 200 - 370 mg/dL [facility] Remisol Consent Formson 12-11-2022 Consent Forms [id number] #[id number] Normal [facility] c Noteon 12-11-2022 Family Medicine Office/Clinic Note HPI Staff Noemi is an 87 year old male who presents to establish care. 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 Martinez, Dr. Royal Jordan-Cardiology [facility], [facility] Last provider: Dr. Silva Any [...] he turned 79 years old. Will call [facility] and request records for any colonoscopy in 2014 or more recent. Review of Systems PHQ Score Initial Depression Screen Score: 0 Physical Exam Vitals & Measurements HR: 60(Peripheral) BP: 128/62 SpO2: 98% HT: 70 in HT: 178.5 cm WT: 99 kg WT: 217.8 lb BMI: 31.07 Assessment/Plan 1. Black tarry stools (K92.1: Melena) Ordered: CBC w/ Auto Diff Fibrinogen Lvl [facility] Internal Ambulatory Referral Lab Specimen Collect [id number] PT & PTT Stool Occult Blood Stool Occult Blood TIBC Calculated 2. Family hx of colon cancer (Z80.0: Family history of malignant neoplasm of digestive organs) Ordered: [facility] Internal Ambulatory Referral Lab Specimen Collect [id number] Stool Occult Blood 3. Colon cancer screening (Z12.11: Encounter for screening for malignant neoplasm of colon) Ordered: [facility] Internal Ambulatory Referral Lab Specimen Collect [id number] Stool Occult Blood 4. BMI 31.0-31.9,adult (Z68.31: Body mass index [BMI] 31.0-31.9, adult) Ordered: [facility] Internal Ambulatory Referral Stool Occult Blood Follow-up [...] Recorded influenza, whole 05/29/2005 Recorded Normal [facility] Comment on above: Result Comment: Elec tronically [...] seeing specialists: Dr. Martinez, Dr. Royal Jordan-Cardiology [facility], [facility]mad[facility] Last provider: Dr. Silva Any [...] he turned 79 years old. Will call [facility] and request records for any colonoscopy in [...] he had colonoscopy 6-7 years ago at [facility]. will call to access those records. pt has significant family history of colon cancer. will send stool to lab, will draw CBC and clotting studies in office today. will call patient tomorrow to advise if he should stop taking warfarin depending on lab results. all questions answered. RTC as needed Ordered: CBC w/ Auto Diff Fibrinogen Lvl [facility] Internal Ambulatory Referral PT & PTT Stool Occult Blood Stool Occult Blood TIBC Calculated 2. Family hx of colon cancer (Z80.0: Family history of malignant neoplasm of digestive organs) referral to Dr. Jiang placed for scope Ordered: [facility] Internal Ambulatory Referral Stool Occult Blood 3. Colon cancer screening (Z12.11: Encounter for screening for malignant neoplasm of colon) see above Ordered: [facility] Internal Ambulatory Referral Stool Occult Blood 4. BMI 31.0-31.9,adult (Z68.31: Body mass index [BMI] 31.0-31.9, adult) BMI education complete Ordered: [facility] Internal Ambulatory Referral Stool Occult Blood Follow-up [...] neoplasm of (more content not included)... Normal [facility] Comment on above: Result Comment: Elec tronically Signed By: Sheng Simms\.viviane\Date and Time Signed: 12/11/22 13:48 EDT HEMATOLOGYOrdered [...] (12/11/22 12:14 PM) Invalid Interpretation Code Negative [facility] Man Sero PROF 14(COMP METB)on 023 Albumin [Mass/Vol] 3.8 g/dL Normal 3.4-5.0 [facility] Comment on above: Performed By: #### B MP #### [facility] [address] [address] [address] Rashmi Nolan Albumin/Globulin [Mass ratio] 1.1 {ratio} Normal [facility] Comment on above: Performed By: #### B MP #### [facility] [address] [place] [address] Dr. Rashmi Nolan ALP [Catalytic activity/Vol] 178 U/L Critically high 46-116 [facility] Comment on above: Performed By: #### B MP #### [facility] [address] [address] [address] Rashmi Nolan ALT [Catalytic activity/Vol] 17 U/L Normal 16-63 [facility] Comment on above: Performed By: #### B MP #### [facility] [address] [address] [address] Rashmi Nolan Anion gap [Moles/Vol] 15.6 mmol/L Normal [facility] Comment on above: Performed By: #### B MP #### [facility] [address] [address] [address] Rashmi Nolan AST [Catalytic activity/Vol] 12 U/L Critically low 15-37 [facility] Comment on above: Performed By: #### B MP #### [facility] [address] [address] [address] Rashmi Nolan Bilirubin [Mass/Vol] 0.2 mg/dL Normal 0.2-1.0 [facility] Comment on above: Performed By: #### B MP #### [facility] [address] [place] [address] Dr. Rashmi Nolan Calcium [Mass/Vol] 9.5 mg/dL Normal 8.5-10.1 [facility] Comment on above: Performed By: #### B MP #### [facility] [address] [address] [address] Rashmi Nolan Chloride [Moles/Vol] 109 mmol/L Critically high 98-107 [facility] Comment on above: Performed By: #### B MP #### [facility] [address] [address] [address] Rashmi Nolan CO2 [Moles/Vol] 22.5 mmol/L Normal 21.0-32.0 [facility] Comment on above: Performed By: #### B MP #### [facility] [address] [address] [address] Rashmi Nolan Creatinine [Mass/Vol] 2.11 mg/dL Critically high 0.70-1.30 [facility] Comment on above: Performed By: #### B MP #### [facility] [address] [address] [address] Rashmi Nolan EGFR-AF CENTRAL AFRICAN 36 mL/min/1.73m2 Critically low >=60 [facility] Comment on above: Performed By: #### B MP #### [facility] [address] [place] [address] Dr. Rashmi Nolan EGFR-NON AF CENTRAL AFRICAN 30 mL/min/1.73m2 Critically low >=60 [facility] Comment on above: Performed By: #### B MP #### [facility] [address] [address] [address] Rashmi Nolan Globulin (S) [Mass/Vol] 3.4 g/dL Normal [facility] Comment on above: Performed By: #### B MP #### [facility] [address] [address] [address] Rashmi Nolan Glucose [Mass/Vol] 115 mg/dL Critically high 74-106 [facility] Comment on above: Performed By: #### B MP #### [facility] [address] [place] [address] Dr. Rashmi Nolan Potassium [Moles/Vol] 5.1 mmol/L Normal 3.5-5.1 [facility] Comment on above: Performed By: #### B MP #### [facility] [address] [address] [address] Rashmi Nolan Protein [Mass/Vol] 7.2 g/dL Normal 6.4-8.2 [facility] Comment on above: Performed By: #### B MP #### [facility] [address] [address] [address] Rashmi Nolan Sodium [Moles/Vol] 142 mmol/L Normal 136-145 [facility] Comment on above: Performed By: #### B MP #### [facility] [address] [address] [address] Rashmi Nolan Urea nitrogen [Mass/Vol] 57.0 mg/dL Critically high 7.0-18.0 [facility] Comment on above: Performed By: #### B MP #### [facility] [address] [address] [address] Rashmi Nolan Urea nitrogen/Creatinine [Mass ratio] 27.0 mg/mg Normal [facility] Comment on above: Performed By: #### B MP #### [facility] [address] [address] [address] Rashmi Nolan PROTIMEon 12-11-2022 INR Coag (PPP) [Relative time] 1.95 {INR} Normal [facility] Comment on above: Performed By: #### P T, PTT #### [facility] [address] [place] [address] Dr. Rashmi Nolan INR GUIDELINES SEE BELOW Normal [facility] Comment on above: Result Comment: ENOC RED INR: 2.0 - 3.0 CONDITIONS NOT LISTED BELOW 2.5 - 3.5 FOR PROSTHETIC HEART VALVE REPLACEMENT 2.5 - 3.5 RECURRENT THROMBOSIS Performed By: #### P T, PTT #### [facility] [address] [place] [address] Dr. Rashmi Nolan PT Coag (PPP) [Time] 19.9 s Critically high 9.0-11.6 [facility] Comment on above: Performed By: #### P T, PTT #### [facility] [address] [place], [place] [address] Dr. Rashmi Nolan PTTon 12-11-2022 aPTT Coag (Bld) [Time] 30.3 s Normal 22.3-36.2 [facility] Comment on above: Performed By: #### P T, PTT #### [facility] [address] [place], [place] [address] Dr. Rashmi Nolan Stl Oclt Bldon 12-11-2022 Occult Bld Stl Positive Abnormal Negative [facility] Comment on above: Performed By: #### 2 [id number] ####[facility] [address] [place] [address] TIBC Calculatedon 12-11-2022 Iron binding capacity [Mass/Vol] 417 microgram/dL High 250-400 [facility] Comment on above: Performed By: #### 2 165675, [id number], [id number] ####[facility] [address] [place] [address] Transferrin [Mass/Vol] 298 mg/dL Normal 200-370 [facility] Comment on above: Performed By: #### 2 078552, 4369777, [id number] ####[facility] [address] [place] [address] TYPE AND SCREENon 12-11-2022 TYPE AND SCREEN Negative Normal [facility] Comment on above: Performed By: #### C BC #### [facility] [address] [place], [place] [address] Dr. Rashmi Nolan XR CHEST 1 Von [...] STEPHANIE LIU Date: 2022-12-11 21:04 Normal [facility] Inpatient Patient Summaryon 12-10-2022 Inpatient Patient Summary [id number] [place] [address] Patient Discharge Instructions Name: RY LERNER : 1935 Patient Address: [address] [place] [address] Primary Care Provider: Name: Ezequiel CHAMBERS, John Rodríguez After you are discharged if you find you have any questions, please, call [phone] ext [phone] to speak to a nurse. 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 If you or anyone you know is experiencing suicidal thoughts, mental health, alcohol and/or drug addiction problems; contact the [facility] 18/02 Crisis Hotline -text 4HQIY to 847219. If you received any narcotics, sedation, or [...] business decisions or sign any legal documents [place] would like to thank you for allowing us to assist you with your healthcare needs. The following includes patient education materials and information regarding your injury/illness. YR LERNER has been given the following list of follow-up instructions, prescriptions, and patient education materials: Follow-up Instructions With: Address: When: Ward Martinez [address] [place] [address], [address] [place] [address] Business (1) 12/18/2022 1:30 PM [...] 3. 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 Change your [...] or concerns, please call the office at [phone] 7. Follow up as scheduled Viruses or [...] and Prevention Septe (more content not included)... [facility] MAGR Preoperative Recordon 0 12-10-2022 MAGR Preoperative Record MAGR Pre-Op Record Summary Primary Physician: Ward Martinez DO Finalized Date/Time: 12/10/22 15:29:41 Pt. Name: YANN RYDENIA Barton./Sex: 1935 MALE Med Rec #: [id number] Physician: Ward Martinez DO Financial #: [id number] Pt. Type: D Room/Bed: / Admit/Disch: 12/10/22 [...] Signed By: Maile Palmer RN 12/10/22 15:29 [facility] Patient Handouton 12-10-[address] 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 Keep your hand elevated above your elbow for the first 24 hours after surgery 2. Wiggle your fingers frequently while awake 3. 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 Change your [...] or concerns, please call the office at [phone] 7. Follow up as scheduled Normal [place] Historical Records Officeon 11-14-2022 Historical Records Office [id number] #1.00CD:127 Normal [facility] 36on 11-13-2022 36 Potassium was high, renal function is stable. Can stop taking potassium supplement and repeat BMP in one week. Normal [facility] Physician Referralon 023 Physician Referral [id number]#1.00CD:127 Normal [facility] Physician Referral [id number] #1.00CD:127 Normal [facility] MAGNESIUMon 11-06-2022 Magnesium [Mass/Vol] 2.2 mg/dL Normal 1.8-2.4 The [facility] Comment on above: Performed By: #### B MP, MG #### [facility] [address] [address] [address] Rashmi Nolan Office Visiton 11-06-2022 Follow-up visit [id number] Ry Lerner 1935 M Date Provider Department Center 11/06/2022 [id number]-NLEEUBFACSOLIS VILLARREAL [facility] Family History Family history unknown: Yes Level of Service:53471 [facility] OFFICE/OUTPATIENT ESTABLISHED MOD MDM 30-39 MIN Reason for Visit and Comments: Atrial Fibrillation [80] Hypertension [375103] Normal [facility] PROF CHEM 8 (BAS METB)on Anion gap [Moles/Vol] 15.0 mmol/L Normal Th [facility] Comment on above: Performed By: #### B MP, MG #### [facility] [address] [place] [address] Dr. Rashmi Nolan Calcium [Mass/Vol] 10.0 mg/dL Normal 8.5-10.1 [facility] Comment on above: Performed By: #### B MP, MG #### [facility] [address] [address] [address] Rashmi Nolan Chloride [Moles/Vol] 108 mmol/L Critically high 98-107 [facility] Comment on above: Performed By: #### B MP, MG #### [facility] [address] [place] [address] Dr. Rashmi Nolan CO2 [Moles/Vol] 25.4 mmol/L Normal 21.0-32.0 [facility] Comment on above: Performed By: #### B MP, MG #### [facility] [address] [place] [address] Dr. Rashmi Nolan Creatinine [Mass/Vol] 1.98 mg/dL Critically high 0.70-1.30 [facility] Comment on above: Performed By: #### B MP, MG #### [facility] [address] [place] [address] Dr. Rashmi Nolan EGFR-AF CENTRAL AFRICAN 39 mL/min/1.73m2 Critically low >=60 [facility] Comment on above: Performed By: #### B MP, MG #### [facility] [address] [place] [address] Dr. Rashmi Nolan EGFR-NON AF CENTRAL AFRICAN 32 mL/min/1.73m2 Critically low >=60 [facility] Comment on above: Performed By: #### B MP, MG #### [facility] [address] [place] [address] Dr. Rashmi Nolan Glucose [Mass/Vol] 99 mg/dL Normal 74-106 [facility] Comment on above: Performed By: #### B MP, MG #### [facility] [address] [place], [place] [id number] Dr. Rashmi Nolan Potassium [Moles/Vol] 5.4 mmol/L Critically high 3.5-5.1 [facility] Comment on above: Performed By: #### B MP, MG #### [facility] [address] [place] [address] Dr. Rashmi Nolan Sodium [Moles/Vol] 143 mmol/L Normal 136-145 [facility] Comment on above: Performed By: #### B MP, MG #### [facility] [address] [place] [address] Dr. Rashmi Nolan Urea nitrogen [Mass/Vol] 52.0 mg/dL Critically high 7.0-18.0 [facility] Comment on above: Performed By: #### B MP, MG #### [facility] [address] [place] [address] Dr. Rashmi Nolan Urea nitrogen/Creatinine [Mass ratio] 26.3 mg/mg Normal [facility] Comment on above: Performed By: #### B MP, MG #### [facility] [address] [place] [address] Dr. Rashmi Nolan EMG Electromyographyon 10-16 EMG Electromyography [id number] #1.00CD:127 Normal [facility] EMG Electromyography [id number] #1.00CD:127 Normal [facility] Lab Reportson 10-16-2022 Lab Reports [id number] 1.00CD:127 Normal [facility] VIT B12 AND FOLATEon 023 Cobalamin (Vitamin B12) [Mass/Vol] 514.0 pg/mL Normal 193.0-986.0 [facility] Comment on above: Performed By: #### B MP #### [facility] [address] [place] [address] Dr. Rashmi Nolan FOLATE 10.00 ng/mL Normal 8.60-58.90 [facility] Comment on above: Performed By: #### B MP #### [facility] [address] [address] [address] Rashmi Nolan CBC AUTO DIFFon 08-16-2022 BASO # 0.0 103/ul Normal 0.0-0.1 [facility] Comment on above: Performed By: #### B MP #### [facility] [address] [address] [address] Rashmi Nolan Basophils/100 WBC (Bld) 0.8 % Normal 0.2-2.0 [facility] Comment on above: Performed By: #### B MP #### [facility] [address] [address] [address] Rashmi Nolan EO # 0.3 103/ul Normal 0.0-0.7 [facility] Comment on above: Performed By: #### B MP #### [facility] [address] [place] [address] Dr. Rashmi Nolan Eosinophils/100 WBC (Bld) 7.8 % Critically high 0.9-7.0 [facility] Comment on above: Performed By: #### B MP #### [facility] [address] [place] [address] Dr. Rashmi Nolan Erythrocyte distribution width (RBC) [Ratio] 13.2 % Normal 11.0-15.0 [facility] Comment on above: Performed By: #### B MP #### [facility] [address] [place] [address] Dr. Rashmi Nolan Hematocrit (Bld) [Volume fraction] 33.2 % Critically low 42.0-54.0 [facility] Comment on above: Performed By: #### B MP #### [facility] [address] [place] [address] Dr. Rashmi Nolan Hemoglobin (Bld) [Mass/Vol] 10.8 g/dL Critically low 14.0-18.0 [facility] Comment on above: Performed By: #### B MP #### [facility] [address] [place] [address] Dr. Rashmi Nolan IG # 0.01 10e3/ul Normal 0.00-0.03 [facility] Comment on above: Performed By: #### B MP #### [facility] [address] [address] [address] Rashmi Nolan IG % 0.3 % Normal 0.0-0.5 [facility] Comment on above: Performed By: #### B MP #### [facility] [address] [address] [address] Rashmi Nolan LYMPH # 1.0 103/ul Critically low 1.2-3.8 [facility] Comment on above: Performed By: #### B MP #### [facility] [address] [place] [address] Dr. Rashmi Nolan Lymphocytes/100 WBC (Bld) 24.7 % Normal 20.5-60.0 [facility] Comment on above: Performed By: #### B MP #### [facility] [address] [place] [address] Dr. Rashmi Nolan MANUAL DIFF REQ NO Normal [facility] Comment on above: Performed By: #### B MP #### [facility] [address] [place] [address] Dr. Rashmi Nolan MCH (RBC) [Entitic mass] 33.0 pg Normal 25.9-34.0 [facility] Comment on above: Performed By: #### B MP #### [facility] [address] [place] [address] Dr. Rashmi Nolan MCHC (RBC) [Mass/Vol] 32.5 g/dL Normal 29.9-35.2 [facility] Comment on above: Performed By: #### B MP #### [facility] [address] [place] [address] Dr. Rashmi Nolan MCV (RBC) [Entitic vol] 101.5 fL Critically high 80.0-94.0 The [facility] Comment on above: Performed By: #### B MP #### [facility] [address] [place] [address] Dr. Rashmi Nolan MONO # 0.4 103/ul Normal 0.3-0.8 [facility] Comment on above: Performed By: #### B MP #### [facility] [address] [address] [address] Rashmi Nolan Monocytes/100 WBC (Bld) 10.7 % Normal 1.7-12.0 [facility] Comment on above: Performed By: #### B MP #### [facility] [address] [address] [address] Rashmi Nolan NEUT # 2.1 103/ul Normal 1.4-6.5 [facility] Comment on above: Performed By: #### B MP #### [facility] [address] [address] [address] Rashmi Nolan Neutrophils/100 WBC (Bld) 55.7 % Normal 43.0-75.0 [facility] Comment on above: Performed By: #### B MP #### [facility] [address] [place] [address] Dr. Rashmi Nolan Platelet mean volume (Bld) [Entitic vol] 10.5 fL Normal 9.5-13.5 [facility] Comment on above: Performed By: #### B MP #### [facility] [address] [address] [address] Rashmi Nolan PLT 160 103/ul Normal 150-450 [facility] Comment on above: Performed By: #### B MP #### [facility] [address] [address] [address] Rashmi Nolan RBC 3.27 106/ul Critically low 4.70-6.10 The [facility] Comment on above: Performed By: #### B MP #### [facility] [address] [address] [address] Rashmi Nolan WBC 3.8 103/ul Critically low 4.0-11.0 [facility] Comment on above: Performed By: #### B MP #### [facility] [address] [place] [address] Dr. Rashmi Nolan LIPID PROFILEon 08-16-2022 CHOL-HDL RATIO NORM SEE BELOW Normal [facility] Comment on above: Result Comment: 3.3 - 4.4 LOW RISK 4.4 - 7.1 AVERAGE RISK 7.1 - 11.0 MODERATE RISK >11.0 HIGH RISK Performed By: #### B MP #### [facility] [address] [address] [address] Rashmi Nolan Cholesterol [Mass/Vol] 166 mg/dL Normal <=200 [facility] Comment on above: Performed By: #### B MP #### [facility] [address] [address] [address] Rashmi Nolan Cholesterol in HDL [Mass/Vol] 42 mg/dL Normal 40-60 [facility] Comment on above: Performed By: #### B MP #### [facility] [address] [address] [address] Rashmi Nolan Cholesterol in LDL [Mass/Vol] 110.4 mg/dL Normal [facility] Comment on above: Performed By: #### B MP #### [facility] [address] [address] [address] Rashmi Nolan Cholesterol.total/Cho lesterol in HDL [Mass ratio] 4.0 {ratio} Normal [facility] Comment on above: Performed By: #### B MP #### [facility] [address] [address] [address] Rashmi Nolan HDL NORMAL > or = 60 mg/dl - LOW CARDIOVASCULAR RISK <40 mg/dl - HIGH CARDIOVASCULAR RISK Normal [facility] Comment on above: Performed By: #### B MP #### [facility] [address] [address] [address] Rashmi Nolan LDL CALC NORMAL SEE BELOW Normal [facility] Comment on above: Result Comment: <100 mg/dl OPTIMAL 100 - 129 mg/dl NEAR OR ABOVE OPTIMAL 130 - 159 mg/dl BORDERLINE HIGH 160 - 189 mg/dl HIGH >190 mg/dl VERY HIGH Performed By: #### B MP #### [facility] [address] [address] [address] Rashmi Nolan Triglyceride [Mass/Vol] 68 mg/dL Normal <=150 [facility] Comment on above: Performed By: #### B MP #### [facility] [address] [address] [address] Rashmi Nolan VLDL CALC 13.6 mg/dL Normal [facility] Comment on above: Performed By: #### B MP #### [facility] [address] [address] [address] Rashmi Nolan PROF 14(COMP METB)on 023 Albumin [Mass/Vol] 3.9 g/dL Normal 3.4-5.0 [facility] Comment on above: Performed By: #### B MP #### [facility] [address] [address] [address] Rashmi Nolan Albumin/Globulin [Mass ratio] 1.1 {ratio} Normal [facility] Comment on above: Performed By: #### B MP #### [facility] [address] [place] [address] Dr. Rashmi Nolan ALP [Catalytic activity/Vol] 190 U/L Critically high 46-116 [facility] Comment on above: Performed By: #### B MP #### [facility] [address] [address] [address] Rashmi Nolan ALT [Catalytic activity/Vol] 15 U/L Critically low 16-63 [facility] Comment on above: Performed By: #### B MP #### [facility] [address] [place] [address] Dr. Rashmi Nolan Anion gap [Moles/Vol] 15.2 mmol/L Normal [facility] Comment on above: Performed By: #### B MP #### [facility] [address] [address] [address] Rashmi Nolan AST [Catalytic activity/Vol] 17 U/L Normal 15-37 [facility] Comment on above: Performed By: #### B MP #### [facility] [address] [place] [address] Dr. Rashmi Nolan Bilirubin [Mass/Vol] 0.4 mg/dL Normal 0.2-1.0 [facility] Comment on above: Performed By: #### B MP #### [facility] [address] [place] [address] Dr. Rahsmi Nolan Calcium [Mass/Vol] 10.0 mg/dL Normal 8.5-10.1 [facility] Comment on above: Performed By: #### B MP #### [facility] [address] [address] [address] Rashmi Nolan Chloride [Moles/Vol] 108 mmol/L Critically high 98-107 [facility] Comment on above: Performed By: #### B MP #### [facility] [address] [address] [address] Rashmi Nolan CO2 [Moles/Vol] 25.8 mmol/L Normal 21.0-32.0 [facility] Comment on above: Performed By: #### B MP #### [facility] [address] [address] [address] Rashmi Nolan Creatinine [Mass/Vol] 1.78 mg/dL Critically high 0.70-1.30 [facility] Comment on above: Performed By: #### B MP #### [facility] [address] [address] [address] Rashmi Nolan EGFR-AF CENTRAL AFRICAN 44 mL/min/1.73m2 Critically low >=60 [facility] Comment on above: Performed By: #### B MP #### [facility] [address] [address] [address] Rashmi Nolan EGFR-NON AF CENTRAL AFRICAN 36 mL/min/1.73m2 Critically low >=60 [facility] Comment on above: Performed By: #### B MP #### [facility] [address] [address] [address] Rashmi Nolan Globulin (S) [Mass/Vol] 3.7 g/dL Normal [facility] Comment on above: Performed By: #### B MP #### [facility] [address] [address] [address] Rashmi Nolan Glucose [Mass/Vol] 100 mg/dL Normal 74-106 [facility] Comment on above: Performed By: #### B MP #### [facility] [address] [address] [address] Rashmi Nolan Potassium [Moles/Vol] 5.0 mmol/L Normal 3.5-5.1 [facility] Comment on above: Performed By: #### B MP #### [facility] [address] [address] [address] Rashmi Nolan Protein [Mass/Vol] 7.6 g/dL Normal 6.4-8.2 [facility] Comment on above: Performed By: #### B MP #### [facility] [address] [address] [address] Rashmi Nolan Sodium [Moles/Vol] 144 mmol/L Normal 136-145 [facility] Comment on above: Performed By: #### B MP #### [facility] [address] [address] [address] Rashmi Nolan Urea nitrogen [Mass/Vol] 52.0 mg/dL Critically high 7.0-18.0 [facility] Comment on above: Performed By: #### B MP #### [facility] [address] [address] [address] Rashmi Nolan Urea nitrogen/Creatinine [Mass ratio] 29.2 mg/mg Normal [facility] Comment on above: Performed By: #### B MP #### [facility] [address] [address] [address] Rashmi Nolan Office Visiton 07-24-2022 Follow-up visit [id number] Ry Lerner 1935 M Date Provider Department Center 07/24/2022 ROYAL ENRIQUE [facility] No family history on file Level of Service:54110 [facility] OFFICE/OUTPATIENT ESTABLISHED LOW MDM 20-29 MIN Reason for Visit and Comments: Chest Pain [643666] Normal [facility] PROF CHEM 8 (BAS METB)on Anion gap [Moles/Vol] 13.3 mmol/L Normal [facility] Comment on above: Performed By: #### C BC #### [facility] [address] [address] [address] Rashmi Nolan Calcium [Mass/Vol] 10.1 mg/dL Normal 8.5-10.1 [facility] Comment on above: Performed By: #### C BC #### [facility] [address] [address] [address] Rashmi Nolan Chloride [Moles/Vol] 104 mmol/L Normal 98-107 [facility] Comment on above: Performed By: #### C BC #### [facility] [address] [address] [address] Rashmi Nolan CO2 [Moles/Vol] 28.7 mmol/L Normal 21.0-32.0 [facility] Comment on above: Performed By: #### C BC #### [facility] [address] [address] [address] Rashmi Nolan Creatinine [Mass/Vol] 1.87 mg/dL Critically high 0.70-1.30 [facility] Comment on above: Performed By: #### C BC #### [facility] [address] [address] [address] Rashmi Nolan EGFR-AF CENTRAL AFRICAN 42 mL/min/1.73m2 Critically low >=60 [facility] Comment on above: Performed By: #### C BC #### [facility] [address] [address] [address] Rashmi Nolan EGFR-NON AF CENTRAL AFRICAN 34 mL/min/1.73m2 Critically low >=60 [facility] Comment on above: Performed By: #### C BC #### [facility] [address] [address] [address] Rashmi Nolan Glucose [Mass/Vol] 101 mg/dL Normal 74-106 [facility] Comment on above: Performed By: #### C BC #### [facility] [address] [address] [address] Rashmi Nolan Potassium [Moles/Vol] 5.0 mmol/L Normal 3.5-5.1 [facility] Comment on above: Performed By: #### C BC #### [facility] [address] [address] [address] Rashmi Nolan Sodium [Moles/Vol] 141 mmol/L Normal 136-145 [facility] Comment on above: Performed By: #### C BC #### [facility] [address] [address] [address] Rashmi Nolan Urea nitrogen [Mass/Vol] 41.0 mg/dL Critically high 7.0-18.0 [facility] Comment on above: Performed By: #### C BC #### [facility] [address] [place] [address] Dr. Rashmi Nolan Urea nitrogen/Creatinine [Mass ratio] 21.9 mg/mg Normal [facility] Comment on above: Performed By: #### C BC #### [facility] [address] [place] [address] Dr. Rashmi Nolan COVID/FLU RT-PCRon SARS-CoV-2 (COVID-19) RNA ETELVINA+probe Ql (Unsp spec) Positive [email or web address] Other COVID/FLU RT-PCR Negative [facility] [employer] Other BNPon 02-15-2022 Natriuretic peptide B (Bld) [Mass/Vol] 1653.0 pg/mL Normal <=1,800.0 [facility] Comment on above: Performed By: #### C BC #### [facility] [address] [place] [address] Dr. Rashmi Nolan PROF CHEM 8 (BAS METB)on Anion gap [Moles/Vol] 15.8 mmol/L Normal [facility] Comment on above: Performed By: #### C BC #### [facility] [address] [place] [address] Dr. Rashmi Nolan Calcium [Mass/Vol] 9.6 mg/dL Normal 8.5-10.1 [facility] Comment on above: Performed By: #### C BC #### [facility] [address] [place] [address] Dr. Rashmi Nolan Chloride [Moles/Vol] 108 mmol/L Critically high 98-107 [facility] Comment on above: Performed By: #### C BC #### [facility] [address] [place] [address] Dr. Rashmi Nolan CO2 [Moles/Vol] 24.2 mmol/L Normal 21.0-32.0 [facility] Comment on above: Performed By: #### C BC #### [facility] [address] [address] [address] Rashmi Nolan Creatinine [Mass/Vol] 1.87 mg/dL Critically high 0.70-1.30 [facility] Comment on above: Performed By: #### C BC #### [facility] [address] [address] [address] Rashmi Nolan EGFR-AF CENTRAL AFRICAN 42 mL/min/1.73m2 Critically low >=60 [facility] Comment on above: Performed By: #### C BC #### [facility] [address] [address] [address] Rashmi Nolan EGFR-NON AF CENTRAL AFRICAN 34 mL/min/1.73m2 Critically low >=60 [facility] Comment on above: Performed By: #### C BC #### [facility] [address] [address] [address] Rashmi Nolan Glucose [Mass/Vol] 107 mg/dL Critically high 74-106 [facility] Comment on above: Performed By: #### C BC #### [facility] [address] [address] [address] Rashmi Nolan Potassium [Moles/Vol] 5.0 mmol/L Normal 3.5-5.1 [facility] Comment on above: Performed By: #### C BC #### [facility] [address] [address] [address] Rashmi Nolan Sodium [Moles/Vol] 143 mmol/L Normal 136-145 [facility] Comment on above: Performed By: #### C BC #### [facility] [address] [address] [address] Rashmi Nolan Urea nitrogen [Mass/Vol] 28.0 mg/dL Critically high 7.0-18.0 [facility] Comment on above: Performed By: #### C BC #### [facility] [address] [address] [address] Rashmi Nolan Urea nitrogen/Creatinine [Mass ratio] 15.0 mg/mg Normal [facility] Comment on above: Performed By: #### C BC #### [facility] [address] [address] [address] Rashmi Barrientos 10-13-2021 aPTT Coag (Bld) [Time] 36.7 s High 25.0-35.0 [facility] Comment on above: Result Comment: ALL [...] PURPOSE. Performed By: #### 5 0103 #### [facility] [address] [facility] [place] [address], [facility] BASIC METABOLIC PANELon 09-26 Calcium [Mass/Vol] 9.7 mg/dL Normal 8.6-10.3 [facility] Comment on above: Performed By: #### 0 0071, 34748, 99256, 31870 #### [facility] [address] [place] [address], [facility] Chloride [Moles/Vol] 108 mmol/L High 98-107 [facility] Comment on above: Performed By: #### 0 0071, 88542, 77168, 66180 #### [facility] [address] [place] [address], [facility] CO2 [Moles/Vol] 23 mmol/L Normal 21-31 [facility] Comment on above: Performed By: #### 0 0071, 80803, 70368, 81840 #### [facility] [address] [facility] [place] [place] [address], [facility] Creatinine [Mass/Vol] 1.98 mg/dL High 0.70-1.[address] [facility] Comment on above: Performed By: #### 0 0071, 01638, 00878, 25304 #### [facility] [address] [place] [address], [facility] eGFR- 39 ml/min/1.73sq m Abnormal >60 [facility] Comment on above: Result Comment: Calc ulation may not be valid for patients over 70 years Performed By: #### 0 0071, 92134, 58081, 10272 #### [facility] [address] [place] [address], [place] eGFR- non- 32 ml/min/1.73sq m Abnormal >60 [facility] Comment on above: Result Comment: Calc ulation may not be valid for patients over 70 years Performed By: #### 0 0071, 72716, 10083, 52739 #### [facility] [address] [place] [address], [place] Glucose [Mass/Vol] 88 mg/dL Normal 70-100 [facility] Comment on above: Performed By: #### 0 0071, 15317, 58787, 43205 #### [facility] [address] [place] [address], [place] Potassium [Moles/Vol] 4.8 mmol/L Normal 3.5-5.[address] [facility] Comment on above: Performed By: #### 0 0071, 20733, 30187, 05521 #### [facility] [address] [place] [address], [place] Sodium [Moles/Vol] 138 mmol/L Normal 136-145 [facility] Comment on above: Performed By: #### 0 0071, 21658, 00457, 91451 #### [facility] [address] [place] [address], [place] Urea nitrogen [Mass/Vol] 46 mg/dL High 7-[address] [facility] Comment on above: Performed By: #### 0 0071, 78722, 70722, 29222 #### [facility] [address] BNP EDon 10-13-2021 Natriuretic peptide B (Bld) [Mass/Vol] 428 pg/mL High 0-[address] [facility] Comment on above: Result Comment: Give n the appropriate clinical setting a BNP result of >100 pg/mL indicates congestive heart failure. Performed By: #### 3 0935 #### [facility] [address] [facility] [place] [address], [facility] CBC W/DIFFon 10-13-2021 ABS IMM GRANS 0.0 10*3/uL Normal 0.0-0.2 The [facility] Comment on above: Performed By: #### 5 0103 #### [facility] [address] [place] [address], [facility] ABS NEUTROPHILS 2.8 10*3/uL Normal 1.6-7.6 The [facility] Comment on above: Performed By: #### 5 0103 #### [facility] [address] [place] [address], [facility] Basophils (Bld) [#/Vol] 0.0 10*3/uL Normal 0.0-0.[address] [facility] Comment on above: Performed By: #### 5 0103 #### [facility] [address] [facility] [place] [address], [facility] Basophils/100 WBC (Bld) 0.5 % Normal 0.0-1.[address] [facility] Comment on above: Performed By: #### 5 0103 #### [facility] [address] [facility] [place] [address], [facility] Eosinophils (Bld) [#/Vol] 0.3 10*3/uL Normal 0.0-0.[address] [facility] Comment on above: Performed By: #### 5 0103 #### [facility] [address] [facility] [place] [address], [facility] Eosinophils/100 WBC (Bld) 7.4 % High 0.0-6.[address] [facility] Comment on above: Performed By: #### 5 0103 #### [facility] [address] [facility] Erythrocyte distribution width (RBC) [Ratio] 13.9 % Normal 11.5-15.[address] [facility] Comment on above: Performed By: #### 5 0103 #### [facility] [address] [facility] [address] Hematocrit (Bld) [Volume fraction] 33.5 % Low 39.0-50.[address] [facility] Comment on above: Performed By: #### 5 0103 #### [facility] [address] [facility]. [address] Hemoglobin (Bld) [Mass/Vol] 11.4 g/dL Low 13.0-17.[address] [facility] Comment on above: Performed By: #### 5 0103 #### [facility] [address] [facility]. [address] IMMATURE GRANS 0.2 % Normal 0.0-1.0 The [facility] Comment on above: Performed By: #### 5 0103 #### [facility] [address] [facility]. [address] Lymphocytes (Bld) [#/Vol] 0.9 10*3/uL Low 1.2-4.[address] [facility] Comment on above: Performed By: #### 5 3 #### [facility] [address] Lymphocytes/100 WBC (Bld) 20.1 % Normal 20.0-45.[address] [facility] Comment on above: Performed By: #### 5 3 #### [facility] [address] MCH (RBC) [Entitic mass] 33.1 pg High 27.0-33.[address] [facility] Comment on above: Performed By: #### 5 0103 #### [facility] [address] [facility] [place] [address], [facility] MCHC (RBC) [Mass/Vol] 34.0 g/dL Normal 32.0-35.[address] [facility] Comment on above: Performed By: #### 5 3 #### [facility] [address] [facility] [place] [address], [facility] MCV (RBC) [Entitic vol] 97.4 fL Normal 82.0-98.[address] [facility] Comment on above: Performed By: #### 3 #### [facility] [address] [place] [address], [facility] Monocytes (Bld) [#/Vol] 0.4 10*3/uL Normal 0.1-1.[address] [facility] Comment on above: Performed By: #### 5 3 #### [facility] [address] [facility]. [address] MONOS 8.4 % Normal 5.0-12.[address] [facility] Comment on above: Performed By: #### 5 3 #### [facility] [address] [place] [address], [facility] Neutrophils/100 WBC (Bld) 63.4 % Normal 40.0-72.[address] [facility] Comment on above: Performed By: #### 5 3 #### [facility] [address] [facility] [place] [address], [facility] Nucleated RBC/100 WBC (Bld) [Ratio] 0 % Normal 0-[address] [facility] Comment on above: Performed By: #### 5 3 #### [facility] [address] [facility] [place] [place] [address], [facility] PLAT CNT 116 10*3/uL Low 150-400 The [facility] Comment on above: Performed By: #### 5 3 #### [facility] [address] [place] [address], [facility] RBC (Bld) [#/Vol] 3.44 10*6/uL Low 4.20-5.70 The [facility] Comment on above: Performed By: #### 5 0103 #### [facility] [address] [facility] [place] [address], [facility] WBC (Bld) [#/Vol] 4.43 10*3/uL Normal 4.00-10.60 The [facility] Comment on above: Performed By: #### 5 0103 #### [facility] [address] [facility] [place], [place] [address] [place] [address] Cardiovascular Lab Reporton 10-13-2021 Cardiovascular Lab Report [facility] Patient Name: Yann [facility] MR #: [id number] Physician: Royal Gandara MD Department of Service Date: 10/13/2021 Medicine Birthdate: 1935 Division of Room #: [facility] Cardiology Adult Cardiovascular Services [address] [address] Cardiovascular Laboratory Report PACEMAKER IMPLANT PROCEDURE NOTE DATE OF PROCEDURE: 10/13/2021 PERFORMING PHYSICIAN: Dr. Royal Gandara CONSENT: Patient LOCATION: EP Lab PROCEDURE PERFORMED: 1. Implantation of pacemaker ([employer]) 2. Ultrasound guided venous access INDICATIONS: [...] previously recommended a pacemaker, however, presented to [place] ED with a ventricular rate in the 30s. He was subsequently transferred over to [facility] ED for a pacemaker placement. Patient was [...] using modified seldinger technique using a 5 Malagasy micro-puncture needle on one occasion and 0.35 wire was placed. Local infiltration of 1% Lidocaine was performed, and an incision was created in the left upper chest. Dissection was then performed using cautery down to the fascial plane above the muscle. A small pocket was created for the device. 6 Malagasy Safesheaths were placed over the wire. An active fixation [employer] pacing lead was then delivered through the 6Fsheath to the right ventricle. After confirmation of lead position on orthogonal views (HANSEN and COLOMBIAN) to confirm septal position, the screw was [...] immediate procedural complications were noted. Device info: [employer] Accolade MRI EL Model# L331 Serial# [id number] RV lead: Model# INGEVITY [id number] (59cms) Serial# [id number] Sensin.4mV Threshold: 0.6V@0.4ms Impedance: 598 Ohms POST [...] Gandara MD Date Trans: 10/13/2021 10:46 A/oscar DN_[id number] cc: Jason Silva M.D. [address] [place] [id number] Normal [facility] FRESH FROZEN PLASMA 1 UNITon 10-13-2021 PRODUCT CODE 1 [id number] Normal [facility] Comment on above: Order Comment: INR: 2.88 ,PTT: 36.7 at the time of order ;Indication: Other pacemaker placement Performed By: #### 8 7001 #### [facility] [address] PRODUCT STATUS 1 RE Normal [facility] Comment on above: Order Comment: INR: 2.88 ,PTT: 36.7 at the time of order ;Indication: Other pacemaker placement Result Comment: Resu lt changed by IF on 10/19/2021 01:00. The previous value was XM. Performed By: #### 8 7001 #### [facility] [address] [place] [address], [facility] UNIT ABO 1 O Normal [facility] Comment on above: Order Comment: INR: 2.88 ,PTT: 36.7 at the time of order ;Indication: Other pacemaker placement Performed By: #### 8 7001 #### [facility] [address] [place] [address], [facility] UNIT ID 1 [id number] Normal [facility] Comment on above: Order Comment: INR: 2.88 ,PTT: 36.7 at the time of order ;Indication: Other pacemaker placement Performed By: #### 8 7001 #### [facility] [address] [place] [address], [facility] UNIT RH [address] [facility] Comment on above: Order Comment: INR: 2.88 ,PTT: 36.7 at the time of order ;Indication: Other pacemaker placement Performed By: #### 8 7001 #### [facility] [address] [place] [address], [facility] LIVER BATTERYon 10-13-2021 Albumin [Mass/Vol] 4.0 g/dL Normal 3.5-5.7 The [facility] Comment on above: Performed By: #### 0 0071, 56054, 47932, 47518 #### [facility] [address] [place] [address], [place] ALKALINE PHOSPH 137 IU/L High 34-104 [facility] Comment on above: Performed By: #### 0 0071, 70084, 81057, 11989 #### [facility] [address] [place] [address], [place] ALT [Catalytic activity/Vol] 29 U/L Normal 7-[address] [facility] Comment on above: Performed By: #### 0 0071, 98022, 54427, 59117 #### [facility] [address] [place] [address], [place] AST [Catalytic activity/Vol] 22 U/L Normal 13-[address] [facility] Comment on above: Performed By: #### 0 0071, 16368, 36925, 15899 #### [facility] [address] [place] [address], [place] Bilirubin [Mass/Vol] 0.7 mg/dL Normal 0.3-1.[address] [facility] Comment on above: Performed By: #### 0 0071, 16157, 39512, 57569 #### [facility] [address] Bilirubin.direct [Mass/Vol] 0.1 mg/dL Normal 0.0-0.[address] [facility] Comment on above: Performed By: #### 0 0071, 46661, 67622, 58197 #### [facility] [address] [place] [address], [facility] Protein [Mass/Vol] 6.3 g/dL Normal 6.0-8.3 [facility] Comment on above: Performed By: #### 0 0071, 50747, 62925, 43241 #### [facility] [address] MAGNESIUM BLOODon 10-13-2021 Magnesium [Mass/Vol] 2.0 mg/dL Normal 1.9-2.[address] [facility] Comment on above: Performed By: #### 0 0071, 20568, 37815, 01257 #### [facility] [address] [facility] [address] POC SARS COV2 ANTIGEN NEGATI VEon 10-13-2021 POC SARS COV2 ANTIGEN NEG Negative Normal NEGATIVE [facility] Comment on above: Result Comment: Nega [...] antigen from SARS-CoV-2 in direct nasopharyngeal swab ([employer]) specimens from individuals who are suspected of [...] Accreditation. Performed By: #### 3 2044 #### [address] PORTABLE CHEST 1 VIEWon 09-26 PORTABLE CHEST 1 VIEW [facility] Department of Radiology [address] [place] [id number] Patient Name: RY LERNER : 1935 Sex: M Age: Race: White Pt. Location: [facility] Patient Status: E Ordered Date: 10/13/2021 4:40:00 [...] report. Electronically signed: Mark Aguilar. Transcribed by: [email or web address], User Resident: HUMBLE HERNANDEZ Electronically Signed by: MARK AGUILAR @ 10/13/2021 05:55 AM I personally read this/these film(s) with this resident Normal [facility] Comment on above: Order Comment: evalu ate for Infiltrates PROTHROMBIN TIMEon 2 INR Coag (PPP) [Relative time] 2.88 {INR} High 0.91-1.[address] [facility] Comment on above: Result Comment: ACCC P [...] CHEST 1995;108:[id number]. Performed By: #### 5 6101, 67488 #### [address] PT Coag (PPP) [Time] 30.0 s High 12.3-14.8 [facility] Comment on above: Result Comment: ALL RESULTS MUST BE INTERPRETED WITH RESPECT TO BLOOD DRAWING ARTIFACT OR DILUTION ERROR OF ANTICOAGULANT AT THE TIME OF SAMPLING. Performed By: #### 5 6101, 94317 #### [facility] [address] [place] [address], [facility] TROPONIN-Ion 10-13-2021 Troponin I.cardiac [Mass/Vol] 0.05 ng/mL High 0.00-0.04 [facility] Comment on above: Result Comment: REFE RENCE RANGES: 0.00 - 0.04 ng/ml NORMAL 0.05 - 0.50 ng/ml INDETERMINATE > 0.50 ng/ml CONSISTENT WITH AN M.I. Performed By: #### 0 0071, 04123, 34471, 79671 #### [facility] [address] TYPE AND SCREENon 10-13-2021 ABO INTERPRETATION O Normal [facility] Comment on above: Performed By: #### 5 0103 #### [facility] [address] [place] [address], [facility] RH INTERPRETATION Positive Normal [facility] Comment on above: Performed By: #### 5 0103 #### [facility] [address] Vital Signs Date Time Vital Sign Value Performing Clinician Facility 06-02-2022 14:50-0400 Body height 182.88 cm Sonja Aden Other [email or web address] Other 06-02-2022 14:50-0400 Body mass index (BMI) [Ratio] 29.73 kg/m2 Sonja Aden Other [email or web address] Other 06-02-2022 14:50-0400 Body temperature 99.6 [degF] Sonja Aden Other [email or web address] Other 06-02-2022 14:50-0400 Body weight 99.43 kg Sonja Aden Other [email or web address] Other 06-02-2022 14:50-0400 Diastolic blood pressure 54 mm[Hg] Sonja Aden Other [email or web address] Other 06-02-2022 14:50-0400 Respiratory rate 18 /min Sonja Aden Other [email or web address] Other 06-02-2022 14:50-0400 SaO2% (BldA) [Mass fraction] 95 % Sonja Aden Other [email or web address] Other 06-02-2022 14:50-0400 Systolic blood pressure 118 mm[Hg] Sonja Aden Other [email or web address] Other Encounters Encounter Date Encounter Type Care Provider Facility Start: 10-02-2023 ambulatory Sheng L Yolis Facility: [facility] [place] Start: 09-30-2023 ambulatory Sheng L Yolis Facility: [facility] Start: 09-04-2023 ambulatory Sheng L Yolis Facility: [facility] [place] Start: 09-03-2023 End: 09-04-2023 ambulatory Sheng L Yolis Facility:[facility] [place] [facility] Start: 08-29-2023 End: 08-29-2023 ambulatory ADDIE A FELTER Not Available Start: 08-29-2023 Bamboo flowsheet Addie A Fel ter ELECTRICAL MACHINE BUILDER-SKIP OPERATOR Work Phone: [facility] Start: 08-29-2023 Bamboo flowsheet Addie A Fel ter ELECTRICAL MACHINE BUILDER-SKIP OPERATOR Work Phone: [facility] Start: 08-29-2023 End: 08-29-2023 Office outpatient new 30 minutes Addie A Felter ELECTRICAL MACHINE BUILDER-SKIP OPERATOR Work Phone: [facility] Comment on above: Other atopic dermati tis (Primary Dx); Seborrheic keratosis Start: 08-28-2023 End: 08-29-2023 ambulatory John Nieves Facility:[facility] [place] Start: 07-03-2023 End: 07-04-2023 ambulatory Sheng L Yolis Facility:[facility] [place] Start: 07-02-2023 End: 07-02-2023 ambulatory [facility] Start: 05-15-2023 End: 05-15-2023 ambulatory [facility] Start: 02-08-2023 End: 02-08-2023 ambulatory [facility] Start: 01-22-2023 End: 01-23-2023 ambulatory Sheng L Yolis Facility:[facility] Start: 01-22-2023 End: 01-22-2023 Lab Drop off Sheng L Yolis [facility] Start: 12-31-2022 End: 12-31-2022 ambulatory [facility] Facility:[place] Start: 12-25-2022 End: 12-26-[address] JASON SILVA . Facility: Start: 12-21-2022 End: 12-22-2022 ambulatory Sheng L Yolis Facility:[facility] [place] Start: 12-17-2022 End: 01-16-2023 ambulatory Sheng L Yolis Facility:[id number] Start: 12-12-2022 End: 12-14-2022 Evaluation and management of inpatient DR JASON SILVA . Facility: Start: 12-11-2022 End: 12-12-2022 ambulatory Sheng L Yolis Facility:[facility] Start: 12-11-2022 End: 12-11-2022 Lab Drop off Sheng L Yolis [facility] Start: 12-10-2022 End: 12-10-2022 ambulatory [facility] Facility:[place] Start: 11-27-2022 End: 11-27-2022 ambulatory [facility] Start: 11-26-2022 End: 12-26-2022 ambulatory SHAIKH Joe APPLED Facility:[facility] Start: 11-06-2022 End: 11-07-[address] JASON SILVA . Facility:[facility] Start: 11-06-2022 End: 11-06-2022 [facility] Start: 10-29-2022 End: 11-23-2022 ambulatory HAYWARD H FAWWAD Facility:[facility] Start: 10-09-2022 ambulatory Sheng Rey Facility:[facility] Start: 09-26-2022 End: 10-26-2022 ambulatory HAYWARD H FAWWARDD Facility:[facility] Start: 08-29-2022 End: 09-26-2022 ambulatory SHAIKH Joe APPLED Facility:[facility] Start: 08-22-2022 End: 08-23-[address] JASON SILVA . Facility:[facility] Start: 08-16-2022 End: 08-17-[address] JASON SILVA . Facility:[facility] Start: 07-30-2022 End: 08-29-2022 ambulatory SHAIKH Joe APPLED Facility:[facility] Start: 07-24-2022 End: 07-25-2022 ambulatory [facility] Facility:[facility] Start: 07-24-2022 End: 07-24-2022 ambulatory [facility] Start: 06-28-2022 End: 07-29-2022 ambulatory SHAIKH Joe APPLED Facility:[facility] Start: 06-02-2022 End: 06-02-2022 ambulatory Sonja Aden Other [email or web address] Other Start: 06-02-2022 Office outpatient ne w 30 minutes Sonja Aden [facility] Start: 05-29-2022 End: 06-27-2022 ambulatory HAYWARD H FAWWAD Facility:[facility] Start: 04-29-2022 End: 05-28-2022 ambulatory HAYWARD H FAWWAD Facility:[facility] Start: 03-29-2022 End: 04-28-2022 ambulatory SHAIKH Joe JUNIOR Facility:[facility] Start: 03-20-2022 End: 03-20-2022 ambulatory UNKNOWN PROVIDER Facility:[facility] Start: 02-26-2022 End: 03-28-2022 ambulatory SHAIKH Joe JUNIOR Facility:[facility] Start: 02-15-2022 End: 02-16-2022 ambulatory KELLY BONILLA Facility:[facility] Start: 01-26-2022 End: 02-23-2022 ambulatory SHAIKH Joe JUNIOR Facility:[facility] Start: 10-13-2021 End: 10-13-2021 ambulatory [facility]KNOWN [facility]ER [facility] Start: 10-13-2021 End: 10-13-2021 Emergency department patient visit PHYSICIAN UNKNOWN Facility:[facility] Procedures Date Procedure Procedure Detail Performing Clinician [...] above: Performed By: #### B MP #### [facility] [address] [address] [address] Rashmi Nolan Start: 10-13-2021 Antibody screen PHYSICI AN UNKNOWN Comment on above: Performed By: #### 5 0103 #### [facility] [address] Start: 09-26-2021 Cardiac pacemaker, d evice (physical object) Sheng Rey Start: 02-26-2011 Colonoscopy Sheng cannon Start: 01-01-1996 TURP syndrome (disorder) Sheng Yolis Start: 07-29-1993 Herniated structure (morphologic abnormality) Sheng Yolis Tonsillectomy and adenoidectomy Sheng Yolis Plan of Treatment Date Care Activity Detail Author Start: 08-29-2023 End: 08-29-2023 Patient encounter procedure 08/29/2023 1:00 PM EST Office Visit [facility] [address] [place] [id number] Addie Huston, ELECTRICAL MACHINE BUILDER-SKIP OPERATOR [address] [place] [address] Arrived [facility] Comment on above: Arrived Immunizations Immunization Date Immunization Notes Care Provider Fa cili 05-02-2022 influenza virus vaccine, unspecified formulation Sheng Yolis [facility] 05-02-2022 Seasonal trivalent influenza vaccine, adjuvanted, preservative free Addie Huston ELECTRICAL MACHINE BUILDER-SKIP OPERATOR Work Phone: [facility] 09-17-2020 SARS-CoV-2 (COVID-19 ) mRNA BNT-162b2 vax Sheng Yolis [facility] Comment on above: Result Comment: 2022: [id number] 08-27-2020 SARS-CoV-2 (COVID-19 ) mRNA BNT-162b2 vax Sheng Yolis [facility] Comment on above: Result Comment: 2022: [id number] 06-13-2020 influenza virus vaccine, unspecified formulation Sheng Yolis [facility] 06-01-2019 influenza virus vaccine, unspecified formulation Sheng Yolis [facility] 04-14-2018 influenza virus vaccine, unspecified formulation Sheng Yolis [facility] 04-22-2017 influenza virus vaccine, unspecified formulation Sheng Yolis [facility] 05-01-2016 influenza virus vaccine, unspecified formulation Sheng Yolis [facility] 06-02-2015 influenza virus vaccine, unspecified formulation Sheng Yolis [facility] 05-31-2014 influenza virus vaccine, unspecified formulation Sheng Yolis [facility] 06-02-2013 influenza virus vaccine, unspecified formulation Sheng Yolis [facility] 05-29-2005 influenza, whole Sheng Yolis [facility] Payers Date Payer Category Payer Unknown FAPOO 1999 Medicare MEDICARE MEDICAR E PART B [id number] 1999-[place] [address] Medicare [id number] 1959 Medicare [id number] 1934 Unknown [id number] ..840.1.657737.3.579.2.647 1934 Unknown [id number] .840.1.143880.3.579.2.732 1934 Unknown [id number] 2.16.840.1.315573.3.579.2.732 1934 Unknown [id number] 2.16.840.1.106946.3.579.2.718 1934 Unknown [id number] 2.16.840.1.122135.3.579.2.718 1934 Unknown [id number] 2.16.840.1.101604.3.579.2.593 1934 Unknown [id number] 2.16.840.1.184171.3.579.2.593 1934 Unknown [id number] 2.16.840.1.467177.3.579.2.593 1934 Unknown [id number] 2.16.840.1.391239.3.579.2.593 1934 Unknown [id number] 2.16.840.1.213627.3.579.2.593 1934 Unknown [id number] 2.16.840.1.739049.3.579.2.593 1934 Unknown [id number] 2..840.1.585901.3.579.2.593 1934 Unknown [id number] 2.840.1.140847.3.579.2.593 1934 Unknown [id number] 2.840.1.122179.3.579.2.593 1934 Unknown [id number] 2.840.1.923528.3.579.2.593 1934 Unknown [id number] 2..840.1.912888.3.579.2.593 1934 Unknown [id number] 2..840.1.204418.3.579.2.593 1934 Unknown [id number] 2.16.840.1.545400.3.579.2.593 1934 Unknown [id number] 2.16.840.1.269279.3.579.2.593 1934 Unknown [id number] 2.16.840.1.112957.3.579.2.593 1934 Unknown [id number] 2.16.840.1.860454.3.579.2.593 1934 Unknown [id number] 2.16.840.1.537812.3.579.2.593 1934 Unknown [id number] 2.16.840.1.148339.3.579.2.593 1934 Unknown [id number] 2.16.840.1.136125.3.579.2.1259 1934 Unknown [id number] 2.16.840.1.204703.3.579.2.727 1934 Unknown [id number] 2.16.840.1.201429.3.579.2.727 1934 Unknown [id number] 2.16.840.1.673159.3.579.2.727 1934 Unknown [id number] 2.16.840.1.349875.3.579.2.727 1934 Unknown [id number] 2.16.840.1.337939.3.579.2.727 1934 Unknown [id number] 2.16.840.1.790400.3.579.2.727 1934 Unknown [id number] 2.16.840.1.598833.3.579.2.727 1934 Unknown [id number] 2.16.840.1.430875.3.579.2.727 1934 Unknown [id number] 2.16.840.1.063582.3.579.2.727 1934 Unknown [id number] 2.16.840.1.010485.3.579.2.727 1934 Unknown [id number] 2.16.840.1.662726.3.579.2.727 Social History Date Type Detail Facility Unknown if ever smoked [email or web address] Other Start: 02-05-2023 End: 08-29-2023 Sex Assigned At [facility] Start: 12-11-2022 End: 12-13-2022 Tobacco smoking status Never smoked tobacco (finding) [facility] Tobacco smoking status Never [facility] Comment on above: Quit in 2002 Start: 01-22-2023 Tobacco smoking status Ex-smoker (finding) [facility] Comment on above: Quit in 2002 Start: 12-13-2022 Tobacco use and exposure Smokeless tobacco non-user [facility] Start: 02-05-2023 End: 08-29-2023 Alcohol intake Current drinker of alcohol (finding) [facility] Start: 02-05-2023 End: 08-29-2023 History of Social function [facility] Start: 1935 Sex Assigned At Not on file N [facility] Clinical Notes 10-13-2021 to 08-29-2023 Addie Huston, [facility] - 08/29/2023 1:00 PM EST Note Date [...] any new/changing lesions documented in this encounter [facility] 05-15-2023 Note [place] [facility] Consul t Note Reason for visit: [...] on Warfarin, 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 Device check performed on 06/12/2022 shows thresholds to be good. he is in persistent A. Fib and underwent a single-chamber pacemaker. with [employer] on 10/13/2021 and paced 65% Echocardiogram [...] stress test about 12 years ago in [place], and was in hospital with noted a fib currently on coumadin anticoagulation. Echocardiogram performed on 11/30/2020 at [facility] shows an ejection fraction of 55% with [...] mg DR lindsay (more content not included)... [facility] 05-15-2023 Note Patient here for 3 [...] All other systems reviewed and are negative. [facility] 02-18-2023 Note Stable -ct medications [facility] 02-18-2023 Note [id number]: at [facility] for age and htn -restart warfarin, will follow coumadin clinic here at [facility] -is to report any concerns for bleeding -follow up in 2 months to discuss how he is doing -patient prefers to not consider watchmen if he does not have to [facility] 02-08-2023 Note [facility] for GI bleed. He was discharged on 12/14 and coumadin was put on hold. Denies chest pain, SOB, and palpitations. Lost his recently. Review of Systems Musculoskeletal: Positive for arthritis, joint pain and muscle cramps. Neurological: Positive for numbness. All other systems reviewed and are negative. [facility] 02-08-2023 Note [place] [facility] Consul t Note Reason for visit: Afib. S/p PPM HPI: Ry Lerner is a 87 y.o. 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 Device check performed on 06/12/2022 shows thresholds to be good. he is in persistent A. Fib and underwent a single-chamber pacemaker. with [employer] on 10/13/2021 and paced 65% Echocardiogram [...] stress test about 12 years ago in [place], and was in hospital with noted a fib currently on coumadin anticoagulation. Echocardiogram performed on 11/30/2020 at [facility] shows an ejection fraction of 55% with [...] No current facility (more content not included)... [facility] 01-01-2023 Note [id number] Note [id number] Note [facility] SURGERY Clinical Discharge Summary PERSON INFORMATION Name RY LERNER Age 87 Years 1935 Sex MALE Language Bermudian PCP Ezequiel CHAMBERS, John Rodríguez Marital Status Med Service Ambulatory Surgery Acct# Arrival 12/31/2022 08:09:06 Visit Reason SURGERY - RIGHT CARPAL TUNNEL RELEASE Ac[facility] LOS 039 21:33 Address: [address] [place] [address] Comment: PROVIDER INFORMATION VITALS INFORMATION Vital Sign [...] release capsule) 1 cap(s) Oral every day. Coxton's wort (Coxton's wort oral tablet) 1 tab(s) Oral 2 [...] release capsule) 1 cap(s) Oral every day. Coxton's wort (Lindsey's wort oral tablet) 1 tab(s) [...] release capsule) 1 cap(s) Oral every day. Coxton's wort (Coxton's wort oral tablet) 1 tab(s) Oral 2 times a day. warfarin (warfarin 5 mg oral tablet) 1 tab(s) Oral every day. Comment: Lab and Radiology Results Laboratory or Other Results This Visit (last charted value for your 12/31/2022 visit) No Laboratory or Other Results This Visit DIET & ACTIVITY Patient Activity Level: Patient Diet: Patient Activity Restrictions: DISCHARGE INFORMATION Discharge Disposition: Discharge Location: [facility] REASON INCOMPLETE INFORMATION PATIENT EDUCATION INFORMATION Instructions: Juan- Post Op Carpal Tunnel (CUSTOM) Follow up: With: Address: When: MARJ PEREZ [address] [place] [address], [address] [place] [id number] [facility] (1) 01/09/2023 11:00 AM DIAGNOSIS Carpal tunnel syndrome, right Comment: PHYS DOC NOTES [place] 12-31-2022 Note Procedure: Decompres mary of median [...] on: 12/31/2022 09:43 EDT] Ward Martinez DO [place] 12-25-2022 Note [id number]:127 [facility] 12-12-2022 Note [id number] [place] 12-10-2022 Note procedure: Decompres mary of median [...] on: 12/10/2022 15:46 EDT] Ward Martinez DO [place] 12-10-2022 Note [facility] SURGERY Clinical Discharge Summary PERSON INFORMATION Name RY LERNER Age 87 Years 1935 Sex MALE Language Bermudian PCP Ezequiel CHAMBERS, John Marcos Marital Status [facility] Service Ambulatory Surgery Acct# Arrival 12/10/2022 13:13:28 Visit Reason SURGERY - LEFT CARPAL TUNNEL RELEASE [facility] LOS 019 02:57 Address: [address] [place] [address] Comment: PROVIDER INFORMATION VITALS INFORMATION Vital Sign [...] Follow up: With: Address: When: Ward Martinez [address] [place] [address], [address] [place] [address] Business (1) 12/18/2022 1:30 PM Type Location Start [facility] ([facility]) [facility] Main OR 12/31/2022 7:30 AM 12/31/2022 8:00 AM Confirmed DIAGNOSIS Carpal tunnel syndrome of left wrist Comment: PHYS DOC NOTES [place] 11-06-2022 Note Cardiology Clinic No te Subjective Ry Lerner is a 87 y.o. 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 Echocardiogram performed on 11/30/2020 at [facility] shows an ejection fraction of 55% with [...] falls and he has been in the shelter lately. Device check performed on 06/12/2022 shows thresholds to be good. he is in persistent A. Fib and underwent a single-chamber pacemaker. with [employer] on 10/13/2021 and paced 65% Echocardiogram [...] LV systolic funct (more content not included)... [facility] 11-06-2022 Note Patient here for 4 [...] All other systems reviewed and are negative. [facility] 07-24-2022 Note [place] [facility] Consul t Note Reason for visit: [...] falls and he has been in the shelter lately. Device check performed on 06/12/2022 shows thresholds to be good. he is in persistent A. Fib and underwent a single-chamber pacemaker. with [employer] on 10/13/2021 and paced 65% Echocardiogram [...] stress test about 12 years ago in [place], and was in hospital with noted a fib currently on coumadin anticoagulation. Echocardiogram performed on 11/30/2020 at [facility] shows an ejection fraction of 55% with [...] Murmur: not hea (more content not included)... [facility] 07-24-2022 Note Review of Systems Cardiovascular: Positive [...] the day. Also has questions about medications [facility] 06-02-2022 Evaluation note Encounter Date Diagnosis [...] treatment plan. Patient left in stable condition [email or web address] Other 03-18-2022 History general Narrative - Reported* Type Description Date Medical History HYPERTENSION Medical History STROKE Medical History HEAD INJURY Surgical History PACEMAKER 10/13/2021 Surgical History HERNIA X 2 Surgical History TONSILECTOMY Hospitalization History SEE ABOVE [email or web address] Other Evaluation + Plan note No data available for this section [facility] Future Appointments Appointment Date:08/27/2023 09:30:00 AM Scheduled Provider: Location:[facility] Appointment Type: Medicare Wellness Subsequent [facility] Diagnosis Other atopic dermatitis- Primary Seborrheic keratosis [facility] No data available for this section [facility] No data available for this section [facility] Summary Purpose Family History No Family [...] and content) DATE CREATED AUTHOR 01/26/2022 [facility] DATE CREATED AUTHOR AUTHOR'S ORGANIZ ATION 04/25/2022 [facility] DATE CREATED AUTHOR AUTHOR'S ORGANIZ ATION 01/06/2023 [facility] DATE CREATED AUTHOR AUTHOR'S ORGANIZ ATION 01/06/2023 [facility] DATE CREATED AUTHOR AUTHOR'S ORGANIZ ATION 07/04/2023 [facility] DATE CREATED AUTHOR AUTHOR'S ORGANIZ ATION 08/31/2023 [facility] EPIC DATE CREATED AUTHOR AUTHOR'S ORGANIZ ATION 09/06/2023 [facility] REASON FOR VISIT (unrecogniz ed section and content) Reason Comments Rash Specialty Diagnoses / Procedures Referred By Contac t Referred To Contact Dermatology Diagnoses eczema / skin changes texture changes Sheng Rey MD [address] [place] [address] Rebecca Conley MD [address] [address] Referral ID Status Reason Start Date Expiration Date Visits Re quested Visits Authorized [id number] Closed 07/05/2023 01/01/2024 1 1 Patient Care team informatio n (unrecognized section and content) Maid Supervisor Relationship Specialty Start Date End Date Jason Silva MD [address] [place] [address] PCP - General Family Medicine 12/10/22 Maid Supervisor Relationship Specialty Start Date End Date Jason Silva MD [address] [place] [phone] PCP - General Family Medicine 12/10/22 [...] BE BASED ON THE PRIMARY CLINICAL RECORDS. [email or web address] provides no warranty or guarantee of the accuracy or completeness of information in this document.
--- NOTE | 2023-09-09 13:14 | P.CN_ITS ---
Consult Note: HPI Data of Consult Patient: new to practice Consult date: 09/09/23 Requesting Physician: Petros Lee MD Primary Care Provider: SHENG LAGOS Consult Narrative Reason for consult: right shoulder pain Narrative: 87yom who presents for evaluation. persistent right shoulder pain for many years, recently worsening. imaging shows severe arthritic change. has engaged in pt and continues in provider directed home exercises for >6 weeks. uses otc pain meds as needed. denies adverse med side effects. cc:: CC: Petros Lee MD Review of Systems ROS Status of ROS 10 or more systems reviewed and unremark able except as noted in history and below Exam Narrative Exam Narrative: Psych-alert and oriented x 3.? Attentive and appropriate, constitutionally normal, displays normal mood and affect per situation.? There are no obvious deficits in memory, reasoning, or intellect.? Skin-no obvious rashes, bruising, or erythema noted to the patient's area of pain. Extremities-upper extremities are warm with minimal edema and palpable pulses. Shoulder - tender to palpation in right shoulder. Pain with abduction, external rotation of right shoulder. Coordination remains intact.? Gait remains non-antalgic. Assessment and Plan Assessment and Plan (1) Primary osteoarthritis, right shoulder: Plan 87yom who presents for evaluation. failed conservative measures >6 weeks. imaging reviewed, as noted. given symptoms and imaging, prudent to attempt right shoulder injection. he is in agreement. meds reviewed, no changes. follow up as needed. Procedure: Right shoulder injection Medications: Bupivacaine 0.25% 3cc, kenalog 80mg I explained the details of the procedure to the patient including the risks, benefits, and alternatives.? We had an informed discussion.? The patient verbalized understanding and signed the consent form.? All questions were answered appropriately.? A time-out was performed.? After obtaining a comfortable seated position, the skin overlying the right shoulder was prepped with alcohol 3 times.? The sulcus between the head of the humerus and the acromion was identified.? The needle was inserted in a sterile manner 2 cm inferior and medial to the posterolateral corner of the acromion and was directed anteriorly toward the coracoid process. The contents of the syringe were gently injected without any resistance into the joint space after negative aspiration for blood or other bodily fluids.? The needle was removed and pressure was applied at the injection site to decrease the incidence of ecchymosis and hematoma formation.? A sterile bandage was applied.
== END 2023-09-09 11:15 | disposition home or self-care (01) ==
LOC: PM 11:15
PROVIDERS: PCP Nurse Practitioner; Visit Provider Anesthesiology
DX: M19.011 Primary osteoarthritis, right shoulder (principal)
CPT/HCPCS: 20610; J0665; J3301

== ENCOUNTER 2023-09-10 09:20 | Outpatient (OUT) | payer MEDICARE, SELFPAY ==
--- NOTE | 2023-09-10 09:23 | US_ITS ---
The [address] [address] Patient Name: THIERRY LERNER MRN: [id number] date: 1935 Sex: M Assigned Patient Location: [place] Current Patient Location: [place] Accession/Order Number: [id number] Exam Date: 09/10/2023 09:30 Report Date: 09/10/2023 10:52 At the request of: SHENG LAGOS Procedure: US right upper quadrant EXAM: US right upper quadrant HISTORY: Nodule Of Liver, Nodule Of Kidney COMPARISON: None. TECHNIQUE: Grayscale, color and Doppler FINDINGS: The liver is normal in size, contour and echotexture with no focal solid mass. Multiple areas of anechoic echogenicity the largest measuring 1.9 cm in the left hepatic lobe, cysts are favored. Hepatopedal flow in the main portal vein with a velocity of 25 cm/s. The gallbladder is normal in size. The wall measures 1.8 mm. Negative sonographic Gomez sign. The common bile duct measures 2.6 mm, normal. The pancreatic body is heterogeneous containing several areas of hypo and anechoic echogenicity measuring up to 1 cm, indeterminate. The right kidney measures 9.5 x 5.7 x 5.8 cm. Area of soft tissue echogenicity in the midpole cortex, exophytic measuring 1.8 x 1.2 x 1.7 cm US/US right upper quadrant IMPRESSION: Hepatic lesions likely representing simple and complex cysts Indeterminate 1.8 cm left renal cortex exophytic mass. Consider pre and postcontrast CT exam to determine enhancement characteristics Areas of hypoechogenicity within the pancreas, indeterminate Consider pre and postcontrast CT exam to determine enhancement characteristics of the renal and pancreatic lesions Electronically authenticated by: STEPHANIE GTZ Date: 09/10/2023 10:52
--- NOTE | 2023-09-10 09:26 | US_ITS ---
The [address] [address] Patient Name: THIERRY LERNER MRN: [id number] date: 1935 Sex: M Assigned Patient Location: US Current Patient Location: [place] Accession/Order Number: [id number] Exam Date: 09/10/2023 09:30 Report Date: 09/10/2023 10:55 At the request of: SHENG LAGOS Procedure: US renal BI EXAMINATION: US renal BI HISTORY: Nodule Of Liver, Nodule Of Kidney COMPARISON: No relevant comparison available. TECHNIQUE: Ultrasound examination was performed of the bladder. FINDINGS: Right Kidney: Normal in size, contour and echotexture. The cortex measures 1.5 cm. 2 solid lesions are identified, upper pole measuring 1.2 x 1.1 x 1.3 cm and mid pole measuring 1.9 x 1.5 x 1.3 cm. No hydronephrosis or obstructing nephrolithiasis Height: 5.0 cm Length: 9.8 cm Width: 5.5 cm Left Kidney: Normal in size, contour and cortical echotexture. The cortex measures 1.1 cm. No solid cortical mass, hydronephrosis or obstructing nephrolithiasis. 2.7 cm area of anechoic echogenicity medial to the kidney possibly an exophytic simple cyst Height: 5.4 cm Length: 9.9 cm Width: 5.2 cm Urinary bladder is normal. Volume 278 mL US/US renal BI IMPRESSION: 2 solid echogenic masses of the right kidney measuring 1.3 and 1.9 cm. Thin section pre and postcontrast CT exam is recommended for further evaluation Electronically authenticated by: STEPHANIE GTZ Date: 09/10/2023 10:55
--- OUTSIDE RECORDS SUMMARY | 2023-09-10 09:39 | XMS_ITS | CCD ---
Author Name Unknown Address [address] [facility] [address] [place] [address] Organization [facility] Care Team Providers Care Imagery Intelligence Name Role Phone UNKNOWN, PHYSICIAN Referring Unavailable JASON SILVA Primary Care Unavailable DEJON QUINTANA Attending Unavailable DEJON QUINTANA Admitting Unavailable PROVIDER, UNKNOWN Attending Unavailable PROVIDER, UNKNOWN Admitting Unavailable PROVIDER, UNKNOWN Attending Unavailable PROVIDER, UNKNOWN Admitting Unavailable Sonja Aden Unavailable Sheng Rey Primary Care Physician [phone] Ward Martinez Admitting Unavail able Ward Martinez [...] Unavailable Jason Silva MD Primary Care Provider ADDIE HUSTON Attending Unavailable YOLIS, SHENG Referring [...] Propensity to adverse reactions to drug (disorder) [facility] Repository Medications Current Medications Medication [...] # 180 cap(s), Refills(s) 3, [facility]acy: [facility], 178, cm, 01/22/23 14:05:00 EDT, Height/Length [...] 3 Chronic Other aftercare (1 source) Other 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 (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 therapy; Translations: [OTH NURSING HOME CURRENT DRUG THERAPY] Onset: 3 Episodic Other aftercare (5 sources) Encounter for therapeutic drug level monitoring; Translations: [ENC THERAPEUTC DRUG LEVL MONITORING] Onset: 3 Episodic Other aftercare (1 source) director long term care (current) use of anticoagulants; Translations: [COMBUSTION ENGINEER CURRNT USE ANTICOAGULANTS] Onset: 3 Episodic Other [...] Range Facility Physician Referralon 024 Physician Referral [id number] #1.00TIFF Normal [facility] Family Medicine Office/Clini c Noteon 09-04-2023 Family Medicine Office/Clinic Note HPI Staff Ry is a 87 year old male presenting to review x-rays Pt has x-rays done on 08/28/23, CT chest on 08/30/[address] right shoulder 09/02/23 Pt needs refill on furosemide pt states 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 pt referred to GI at [facility]. liver enzymes ordered as well. pt will have labs drawn at [facility]. RTC 1 month to touch base with all of the additional testing and referral we have placed. Ordered: [facility] Internal Ambulatory Referral 2. Nodule of kidney [...] stools and HGB dropped critically low Ordered: [facility] Internal Ambulatory Referral 5. Abnormal x-ray of cervical spine (R93.7: Abnormal findings on diagnostic imaging of other parts of musculoskeletal system) CT of cervical spine ordered 6. Rotator cuff tear (M75.100: Unspecified rotator cuff tear or rupture of unspecified shoulder, not specified as traumatic) pt informed that he has an old rotator cuff tear. pt declines referral to ortho at this time Ordered: [facility] External Ambulatory Referral 7. BMI 31.0-31.9,adult (Z68.31: [...] influenza virus (more content not included)... Normal [facility] Comment on above: Result Comment: Elec tronically Signed By: Sheng Simms\Date and Time Signed: 09/04/23 12:27 EST Physician Referralon 024 Physician Referral [id number] #1.00TIFF Normal [facility] Ambulatory Visit Summaryon 0 09-03-2023 Ambulatory Visit [...] 10:00 AM EST With: Sheng Simms Where: [facility] Lab Reportson 09-03-2023 Lab Reports [id number] #1.00TIFF [facility] Lab Reports [id number] #1.00TIFF [facility] Physician Orderon 09-03-2023 Physician Order [id number] #1.00TIFF [facility] Consultation Noteon 08-30-19 Consultation Note [id number] #1.00TIFF [facility] Physician Orderon 08-30-2023 Physician Order [id number] #1.00TIFF [facility] Physician Orderon 08-29-2023 Physician Order [id number] #1.00TIFF [facility] Physician Order [id number] #1.00TIFF Normal [facility] RAD - MISCon 08-29-2023 [facility] [id number] 7#1.00TIFF Normal [facility] MIS [id number] 5#1.00TIFF Normal [facility] [id number] #1.00TIFF Normal [facility] Ambulatory Visit Summaryon 0 08-28-2023 Ambulatory [...] 10:20 AM EST With: Sheng Simms Where: [facility] [place] Normal [facility] Family Medicine Office/Clini c Noteon 08-28-2023 Family [...] of clutter to prevent tripping and/or falling. [place] Advance Directives reviewed, yes on file in [...] UTD, patient to bring cholesterol results to [facility]. Colonoscopy up to date, last completed [...] difficult (more content not included)... Normal [facility] Comment on above: Result Comment: Elec tronically Signed By: Sheng Simms\.br\Date and Time Signed: 08/28/23 13:35 EST\.br\Electronically Co-Signed By: Rene Brannon\.br\Date and Time Co-Signed: 08/28/23 13:09 EST Formson 08-28-2023 Forms [id number] #1.00TIFF Normal [facility] Patient Educationon 08-28-19 Patient Education Caregiving Fall [...] night-lights. ? Place frequently used items in ydei-iq-idrdd places. Lower the shelves around your home [...] the way. ? Do not use floor jordanian or wax that makes floors slippery. If [...] include working with a physical therapist or head athletic trainer to improve your strength, balance, and endurance. Where to find more information ? Centers for Disease Control and Prevention, [place]: www.cdc.gov ? National [place] on Aging: www.ed.nih.gov Contact a health care [...] (more content not included)... Normal [facility] Physician Referralon 023 Physician Referral [id number] 5#1.00TIFF [facility] Ambulatory Visit Summaryon 1 09-03-2022 Ambulatory [...] Follow-Up Appointments Saturday 11:00 AM EST Where: [facility] [place] Normal [facility] Family Medicine Office/Clini c Noteon 07-03-2023 Family [...] and CMP drawn at that visit. Ordered: [facility] External Ambulatory Referral [facility] External Ambulatory Referral 2. Skin texture changes (R23.4: Changes in skin texture) pt has a couple areas on his face that have changes in shape and color and will come off or flake off then comes back. Dr. Silva froze a couple areas a few years ago. will refer to dermatology to manage these areas and his eczema. Ordered: [facility] External Ambulatory Referral [facility] External Ambulatory Referral 3. BMI 31.0-31.9,adult (Z68.31: Body mass index [BMI] 31.0-31.9, adult) BMI education complete Ordered: Body Mass Index (BMI) documented 3008F Current tobacco non-user 1036F Depression Screening Negative 3352F [facility] External Ambulatory Referral [facility] External Ambulatory Referral Influenza immunization status assessed [...] tobacco non-user 1036F Depression Screening Negative 3352F [facility] External Ambulatory Referral [facility] External Ambulatory Referral Influenza immunization status assessed [...] tobacco non-user 1036F Depression Screening Negative 3352F [facility] External Ambulatory Referral FT External Ambulatory Referral [...] (more content not included)... Normal [facility] Comment on above: Result Comment: Elec tronically Signed By: Sheng Simms\.viviane\Date and Time Signed: 07/03/23 12:49 EST Lab Reportson 07-02-2023 Lab Reports [id number] #1.00TIFF Normal [facility] Office Visiton 05-15-2023 Follow-up visit [id number] Ry Lerner 1935 M Date Provider Department Center 05/15/2023 [facility] Family History Family history unknown: Yes Level of Service:39431 ID OFFICE/OUTPATIENT ESTABLISHED MOD MDM 30-39 MIN Normal [facility] Physician Referralon 023 Physician Referral [id number] #1.00CD:127 Normal [facility] Consultation Noteon 03-11-20 23 Consultation Note [id number] #1.00CD:127 Normal [facility] Office Visiton 02-08-2023 Follow-up visit [id number] Ry Lerner Lisbet 1935 M Date Provider Department Center 02/08/2023 [facility] Family History Family history unknown: Yes Level of Service:01296 ID OFFICE/OUTPATIENT ESTABLISHED MOD MDM 30-39 MIN Normal [facility] Family Medicine Office/Clini c Noteon 01-23-2023 [...] treated at [facility]. Questions/Concerns: History of Present Illness pt presents [...] to follow up with Dr. Vargas in [place] and also placed a GI consult. since then his so he has not made any of those appointments. pt wants to stop taking lasix. encouraged daughter to make appointment with Dr. Vargas and let him decide if he can stop lasix. will draw pt/ptt in office today and compare to labs that were drawn in [place] end of November. still waiting for those labs. will call pt tomorrow once we have lab results. omeprazole refills also sent to pharmacy. they will hold off on GI referral until they get meds situated with tubing machine operator. Dr. Vargas's office was called [...] (more content not included)... Normal [facility] Comment on above: Result Comment: Elec tronically Signed By: Sheng Simms\.br\Date and Time Signed: 01/23/23 16:36 EDT Auto Diffon 01-22-2023 Basophils/100 WBC (Bld) 0.5 % Normal 0.0-2.0 [facility] Comment on above: Order Comment: Order Added by Discern Expert. Performed By: #### 2 065748, 7023438, 28130806, 9209319 ####[address] [address] Basophils/Leukocytes Auto (Bld) [Pure # fraction] 0.0 E9/L Normal 0.0-0.2 [facility] Comment on above: Order Comment: Order Added by Discern Expert. Performed By: #### 2 610525, 0656431, 37419977, 6899144 ####[address] [address] Eosinophils/100 WBC (Bld) 4.7 % Normal 0.0-8.0 [facility] Comment on above: Order Comment: Order Added by Discern Expert. Performed By: #### 2 063139, 7889478, 84227742, 1172411 ####[address] [address] Eosinophils/Leukocyte s Auto (Bld) [Pure # fraction] 0.2 E9/L Normal 0.0-0.5 [facility] Comment on above: Order Comment: Order Added by Discern Expert. Performed By: #### 2 269456, 1754999, 32257664, 6618822 ####[address] [address] Lymphocytes/100 WBC (Bld) 20.4 % Normal 14.0-50.0 [facility] Comment on above: Order Comment: Order Added by Discern Expert. Performed By: #### 2 851878, 6297798, 56921472, 6652862 ####[address] [address] Lymphocytes/Leukocyte s Auto (Bld) [Pure # fraction] 0.8 E9/L Low 1.0-4.0 [facility] Comment on above: Order Comment: Order Added by Discern Expert. Performed By: #### 2 276185, 1562209, 48685014, 9648917 ####[address] [address] Monocytes/100 WBC (Bld) 7.6 % Normal 4.0-14.0 [facility] Comment on above: Order Comment: Order Added by Discern Expert. Performed By: #### 2 416064, 5895166, 12995825, 1837497 ####[address] [address] Monocytes/Leukocytes Auto (Bld) [Pure # fraction] 0.3 E9/L Normal 0.2-1.0 [facility] Comment on above: Order Comment: Order Added by Discern Expert. Performed By: #### 2 204709, 7695538, 08567710, 6076169 ####[address] [address] Neutrophils/100 WBC (Bld) 66.8 % Normal 36.0-75.0 [facility] Comment on above: Order Comment: Order Added by Discern Expert. Performed By: #### 2 283181, 2352796, 26442157, 2936222 ####[address] [address] Neutrophils/Leukocyte s Auto (Bld) [Pure # fraction] 2.5 E9/L Normal 2.0-7.5 [facility] Comment on above: Order Comment: Order Added by Discern Expert. Performed By: #### 2 809092, 3486665, 27898195, 6846130 ####[address] [address] CBC w/ Auto Diffon 3 Erythrocyte distribution width (RBC) [Ratio] 14.1 % Normal 10.9-14.2 [facility] Comment on above: Performed By: #### 2 693186, 4748535, 41257217, 9093181 ####[address] [address] Hematocrit (Bld) [Volume fraction] 29.2 % Low 37.7-49.0 [facility] Comment on above: Performed By: #### 2 424877, 3101328, 49701434, 2159075 ####[address] [address] Hemoglobin (Bld) [Mass/Vol] 9.7 g/dL Low 13.5-17.5 [facility] Comment on above: Performed By: #### 2 192708, 3655918, 69925069, 2267267 ####[facility] [address] [place] [address] MCH (RBC) [Entitic mass] 32.2 pg Normal 27.0-34.0 [facility] Comment on above: Performed By: #### 2 860134, 1631326, 18211985, 4458543 ####[place] [address]38457 MCHC (RBC) [Mass/Vol] 33.4 g/dL Normal 31.4-36.0 [facility] Comment on above: Performed By: #### 2 189153, 0442732, 91059419, 3757398 ####[place] [address]38457 MCV (RBC) [Entitic vol] 96.3 fL Normal 80.0-100.0 [facility] Comment on above: Performed By: #### 2 368919, 0907311, 12009301, 7769353 ####[address] [address] Platelet mean volume (Bld) [Entitic vol] 9.1 fL Normal 6.4-10.8 [facility] Comment on above: Performed By: #### 2 417636, 1034529, 07418302, 3941921 ####[facility] [address] [place] [address] Platelets (Bld) [#/Vol] 138.0 E9/L Low 150.0-500.0 [facility] Comment on above: Performed By: #### 2 918022, 4094273, 22586138, 8224016 ####[address] [address] RBC (Bld) [#/Vol] 3.0 E12/L Low 4.3-5.9 [facility] Comment on above: Performed By: #### 2 968905, 9711700, 72521882, 7269227 ####[facility] [address] [place] [address] WBC corrected for nucl RBC Auto (Bld) [#/Vol] 3.8 E9/L Low 4.0-11.0 [facility] Comment on above: Performed By: #### 2 384313, 5696993, 20908822, 5164542 ####[facility] [address] [place] [address] Lyteson 01-22-2023 Anion gap [Moles/Vol] 15 mmol/L Normal 6-16 [facility] Comment on above: Performed By: #### 2 785078, 8600306, 97206462, 4752727 ####[facility] [address] [place] [address] Chloride [Moles/Vol] 108 mmol/L Normal 101-111 [facility] Comment on above: Performed By: #### 2 679371, 1054726, 39551192, 4617032 ####[facility] [address] [place] [address] CO2 [Moles/Vol] 24 mmol/L Normal 21-31 [facility] Comment on above: Performed By: #### 2 978825, 8357615, 63562844, 2464111 ####[facility] [address] [place] [address] Potassium [Moles/Vol] 4.8 mmol/L Normal 3.5-5.3 [facility] Comment on above: Performed By: #### 2 984836, 6598836, 44491206, 5325667 ####[facility] [address] [place] [address] Sodium [Moles/Vol] 142 mmol/L Normal 135-145 [facility] Comment on above: Performed By: #### 2 463287, 6036899, 21264110, 2147046 ####[facility] [address] [place] [address] PT & PTTon 01-22-2023 aPTT Coag (PPP) [Time] 29.6 second(s) Normal 25.1-36.5 [facility] Comment on above: Result Comment: Para meter [...] the same coagulation reagent and instrumentation as [facility]. Currently there are no coagulation studies available worldwide for children to 14 days, and no normal ranges. Heparin therapeutic range (represented by Anti-Factor Xa activity of 0.2 - 0.4 U/mL) corresponds to PTT of 56.6 - 109.0 sec. Performed By: #### 2 364070, 4986213, 32420346, 0323605 ####[facility] [address] [place] [address] INR Coag (PPP) [Relative time] 1.1 {INR} Invalid Interpretation Code [facility] Comment on above: Result Comment: INR results are specifically intended to assess patients stabilized on long-term Anticoagulation therapy suggested INR?s ?Less Intensive Anticoagulation? 2.0 ? 3.0 Conventional Range 3.0 ? 4.5 Performed By: #### 2 624216, 5762219, 50388226, 6980453 ####[facility] [address] [place] [address] PT Coag (PPP) [Time] 12.2 second(s) Normal 9.4-12.5 [facility] Comment on above: Result Comment: 15 d [...] the same coagulation reagent and instrumentation as [facility]. Currently there are no coagulation studies available worldwide for children to 14 days, and no normal ranges. Performed By: #### 2 344127, 7757035, 39242175, 1179741 ####[facility] [address] [place] [address] Coding Summaryon 01-01-2023 Coding Summary HTMLBase 64 QepphytdAVl3tGa+PGhl YWQ+BI6ESWIvN80wtGUc kM3pK1VKPJtSIeriHUKT NKeSMnJsmdFhNA0zxXWx ZXJu IC8+GX8uVBGqLavjgDQt u8L3tKJ0K81ppf7nWPba wRH5NSEoBtVsnjnal6ta mJj8BSouUvxhRdXj BWPjuC66LGT5hQ39Gu91 yFLcsNMdk5bniRn2GzTs WAWwUDT5oYotKRsgs2Sp UALjW44lbJCax6G5 IGNvbGxhcHNlOyBlbXB0 cF6dYMnvkhrlj0pziczd Hnz3qt93iHLhd9M1tAY0 Q3TfxoU4CIGzpYMh KmwkyWTLyM9btqizb2jf mwwhFiFsSZAhQHr2EHf2 JBSbbVpwXqRgDN56LQH0 RUYfpyEqU4FaVRVn kExfGrO3l2H4Td1ZZ2DY HlilB9DWAUIFPEmrhLK+ KS91sh14K8PcGjjyPhl5 HGHxBHC2cRA8oW0d FUNsXTisv0P0fTD6O8Gl fvMphs1qd7kkXBWuSHtp E06gjQFsu0W8QPUbnUR7 KDEmnIllLeAvrX53 Oyc+DMXqqPtgq6FiUjtf l1kke1xntXn7SbewOCPt bnDckIcmLBR6a9GkRp6b KBUhxVU5qFM7tA5s JjKdIwR9FBnqI127YmAb uISjBzfaI62wO9XivHA+ KWHeYte9QFPdkFuzNH5v I3JeJFFozaheeCQu iWogZP9pCAXpxwktUGMn gY3gTYNaH1f5XbMaBcE0 GHyoO7DoRTTcgdqkLs46 fG9qHtRwBkY1ZLdv W0XslmT8QEQcaMNpXQza BTR8E04cy1J9QGTkLRVu CHJ9aUC5zW2mvAefdvhi bGVmdDsgdmVydGlj LYucRVshD184URDggSmq PkNvZGluZyBEYXRlOiAg MDYvMDYvMjAyMzwvdGQ+ VTMgVDL7zVrwEDSq rFLxMRkxXo4jmUlixGrl NU8jISEcexouFXXiaM0d XTPqmMWugXddUJ6aOLUb cpbea811KgBqPKZ5 OCTvdYIlL9CqyK1uYsAy FVUqRERvQ7XjsGVxSApy P840GCwhYtX9LXIrvvAk F0OrQBQchOkiEzS2 s6U3Jg2Zl5PcgedcZ3Zl nPEyGfPfQczuHEg3A4Cr PjwvdHI+CP91SWWpXA05 QZp6XXE1hKlyHGxq KWRcY0UmfN1gWoUgEEHv ZGRkOyc+PHRhYmxlIHdp ZHRoPScxMDAlJyBzdHls WQ9zKq3yDOYpXBRg oDknlEWvMkRxj7lsRWOj PEfzNF9reDvgO9ExfAG1 JOEko1p9Lq90F55cB6Kd dXA+RGHovDZ9mRY1 sM3xHjZlXhB4MFctI592 WaCgfZOrDtwtx2bzf3uc fNf1PjL8IPWocdEpqCli SVK2k7CtPv66F53l IHdpZHRoPSIxNSUiIHZh gIibnd6mqK3wJu1+PGNv xBL3lQA0fV8jJfYcHgA7 QYgsX405FpAnuXZz Nwqri3fwo3fmhKx4EoNj XODxdrXulGsbKVZ7c4Yf Na24A9KgnBhjo2XtVzq5 ky41cAFqn9D5tLB0 P6KbEZXmhqoomWAbqErr HQ6nYFTgzvnpXTCxxS0f NZFgP8m5DhUjInK7CWat F3WpbzJ0DWZigHPr WOOewJPHdR2kmuywl2vz hsloMiUuKSVvBMc7ZAb2 CYMdoQvhXzTkCSR8XaO6 XKG1dJWmuN3uqUrd nzdhpN7zJqr+IAL0cNZe aVABFL7wImfyjQM+PHRk MZF5yGafUMspOWMblU2z AFWhQ9h0GsAkArN1 XPdeA1VkywT5UGMeeSDg BWHexFVZrL2liqiwh4en tjmdBsPmOPGsCYx2YYr1 LWFsaWduOiBsZWZ0 LiA7NSY7dOAhpV6dlSte llpgaA7vKqc+QmlydGgg LNS6VTo4P2DtFfh0AGZd hQtpRH3zdEPfIMyg Qx0zbMwrnBbzIP6eBLJd euolc411TfBfm2iwSURj cQIvAIopWYT9Y32xv2B5 YEWoYBCyNHP7zRH0 rL9bsVbdivfqpMBrgNqw viAfoXckFEyuVCjqT947 NPYbeGyeLiKqMGe3N0Bs Axa1JJOjiDsaBS5i aMThIFbwOu3rjQthdObc JT8fVJFtavgzw937NjVf h4tiNMCfaJYsEKofZEO5 D25nx0S7HUKpTMCj NEV3nXR2gN9eoEzyyyna bGVmdDsgdmVydGljYWwt OVhdS512CYKctYmwZjUp gZm0Z3XiEsz9IMRa tJrdPF4rvQQuCHfhHt1m nYpwtVleYT5eNRDytssc u819WzUaw5tdWGOfeIFr ZInsGCK5Q15cf7P8 LYOwVYTfFJG6mMG6oK6o bGlnbjogbGVmdDsgdmVy nYkpHDmpEHewN439SLRk cDsnPlBhdGllbnQg ZGkeEOo9V5VzXzdrdOX+ BF44CMXtXL83iNLgbVRl x3hvmDz2WjToAGVaNYZ1 vWfsWKrmc0FaROWt V24beBRhr1E0VBWmpLml lTLbRaWcqCP6qV0aJOqp dkbpl1jchhnxBfest2qd kg06uL83V82iCEji ZHRoPSIzMCUiIHZhbGln qd6ltC9aTs1+PGNvbCB3 gIM9dW9yLFSiYgU4NOsq Q715UaVtoDYiTjux v6feg2wdgOy4TrL3LDRi yxHtbLfmRKV3q7PePb84 M04eDQusTZUqNVLvWUFz OQZakAzfxh7aqQ0c Ii8+OKXqtYF0tFA2rV2m VnNnEfQ5KSqxU357WrMh xVAvOczyB46cN5MwyHA+ DUOwAiu4PGOvpLjz IQ2rcOZzTMrmWh2kGHC1 NtDrBhJeGUufY7YsZJZr xowwogoinIZ6BVJvRROk kR60As2vzThiXATi kPUSkZ4zaksof1ftttuz DjFxSAPcTIm5HTq2CMEl uXljOyYpBSD2KhJ6NFZ1 mHVysP0oyEekrrro aB6jS9GjIKSdoqcnIr90 kA3oCdFvLyW5HGtwEtk+ MWgHIAMQLYFITYKOLQ4S ZRyCE05MNJ09HE53 rWNdz8V2uBO0W2YwCKAv jgdoynmxtKH9MVRxVLHv iS63dGJxJAmdDt2ts8T0 n129HBBeQFDynU93 Vx3eqZjxMESzrCNTjK2i dssqj2xpppftVdAiYPKs QQg4ISr8ELTdwYniWvMv LBK2RjC6OVF8vUCn eR2zxPybsybfpO9jGjw+ MDMvMDQvMTkzNTwvdGQ+ JJAyNPT4oNzhUBbzQTTh oY0gFIRpV1a4PdVq GmD0SAzhR9LcLAZwknbz Ya42xS5bOmHgRpW7SJgt H1UpvpV6BSNtcGQdIByz XPR6C97vp8M1ZGHf MUUwHEH2sZF9jZ2liWin bjogbGVmdDsgdmVydGlj CSwvHLarB620SZNpdIuy Yom2IFyrCMYiOH30 FI40jFGqg0J3bCY5H7Vu KDXgceadrysthEC5YPPg NIAfpX27tVBcALfaXl5z h0A3q123AEFbWWSe jX56Lg5rbLdpQVPobAYL yF3wuycfy9mfgedkPcLh VDJmTRq0TIm6UCNrcBba GqNtMPH1JbJ2NFM7 yMUeaY6hqKiuegeyxK3f Oyc+TUFMRTwvdGQ+PHRk ZMW9dZwoDFzjBVXujD2k SWXvQ7v1EfBmMoK1 WUgnZ4KyUGYndjviAc33 tF1zHfGbCuO5KQpxA6Wa zoX9BLAhnHXyMEoxMFX4 Y41zu4A9XSPaGLZw HUM2oUM1cV3ckHpknwnj bGVmdDsgdmVydGljYWwt KTicX498KYZzcPqqFgSd hMIYlVWzAOM4VN05 YW02V9EpWtafhIPyzJC+ PHRhYmxlIHdpZHRoPScx HMWtJhDazTxoGA7tKo1m ZGVyLWNvbGxhcHNl DsEav1gtHQXmMXqsLL1q kWzmU6LjjCL0HUGht0s6 Vl07J49hK8DyaTL+PGNv zLE6qXW4lK7nKlYl QbA3EUtyP202SgPiiSLg Nxmwk8din3oeyWg3ZsFn GRKnbmAdlLudJLC9z1Mm Xc64C66cQRuvHOJj XGOaBPEyIQQsfAepiy8m iU5tWu8+KIPfyGK1fVQ9 dQ0uErMoRkD9AElsS979 OvSryAAyQfvkJ38b M9QsdFV+KLXpHni9IWBb dWrkCS5jsDXyRMwoAf6o IKK8BuEjCkSfDQmgT3Yl ZGRpbmctcmlnaHQ6 CKWdTWWhjK93Hc4tlEgi Jg0vJQYzYVJ2YHVslJAg U6TgwM3iAiDeNSTqZQBr R8HseGInMNiqJ372 JHmvYnW5ESLdblLcN0Oo TABzzVxcMiR3x3S8Ur6L tWjceUTrDE4jFiVhKUx4 I8JgBbn7JDWhmYrc LY6bqGRtWIczUj6gyCyj nQcjLA9iOHGfwktxi385 BwYrx8mcKMVjfGRoRBzt IAP6Z80tp7Y1RGYj ZLArVQJ9dBO6cG0otPdx bjogbGVmdDsgdmVydGlj QGunZNheH088PMParTli CgPFJxt6K2GdSfo5 RDZorMmmLU9qvDUfUBcf Ub5haLodfXpaIU9sPKQv fkrjr419FnEde4waPAPc fSEuEPhkVHX6S26s h6Q3YPKlPTKoALP1nYZ7 cW8fpAjtafsaaMXyeLqq qdUgkDkhVYajGKrlF394 BZEmfVvhOa1RFdw0 R3DxIxv2MBPlnDbuZE7p xZKyQUplSu2muDwxaUfd DT0sEINmrrmrt991PzMc u0piFZKiyQQpLCub ZPB4G33hr6D1YJPeHSNe QAI8fOX2eZ9baArekwya bGVmdDsgdmVydGljYWwt XZjeR453TOQrcXud PlBheWVyOjwvdGQ+PC90 cb01H5PhXqggCmi4GDLi PQY1gAR9gG0vGRIjDDci g2F0oPC0Y8BdtyAn ci1 (more content not included)... [facility] Consent Formson 01-01-2023 Consent Forms [id number] #[id number] [facility] Inpatient Patient Summaryon 12-31-2022 [place] [address] Patient Discharge Instructions Name: RY LERNER : 1935 Patient Address: [address] [place] [address] Primary Care Provider: Name: John Nieves MD After you are discharged if you find you have any questions, please, call [phone] ext [phone] to speak to a nurse. Discharge Diagnosis: Carpal tunnel syndrome, right Prescription Information: If you have been given a prescription for narcotics, seek immediate medical attention if you have any difficulty breathing or any sudden status changes such as confusion and sleepiness. If you or anyone you know is experiencing suicidal thoughts, mental health, alcohol and/or drug addiction problems; contact the [facility] 18/02 Crisis Hotline -Text 4HCYM to 058276. If you received any narcotics, sedation, or [...] business decisions or sign any legal documents [facility] would like to thank you for allowing us to assist you with your healthcare needs. The following includes patient education materials and information regarding your injury/illness. RY LERNER has been given the following list of follow-up instructions, prescriptions, and patient education materials: Follow-up Instructions With: Address: When: MARJ PEREZ [address] [place] [address], [address] [place] [address] Business (1) 01/09/2023 11:00 AM [...] 1 cap(s) Oral every day. Lindsey's wort (Kosse's wort oral tablet) 1 tab(s) Oral 2 [...] 1 cap(s) Oral every day. Lindsey's wort (Kosse's wort oral tablet) 1 tab(s) Oral 2 [...] 3. DO NOT lift heavy objects or molecular pathologist forcefully with your hand 4. Change your [...] or concerns, please call the office at [phone] 7. Follow up as scheduled Viruses or Bacteria What?s got you sick? Antibiotics only treat bacterial infections. Viral illnesses cannot be treated with antibiotics. When an antibiotic is not prescribed, ask your healthcare professional for tips on how to relieve symptoms and feel better. Usual Cause Illness Viruses Bacteria Antibiotic Neede (more content not included)... Normal [facility] Lab Reportson 12-31-2022 Lab Reports [id number] #1.00CD:127 Normal [facility] MAGR Intraoperative Recordon 12-31-2022 MAGR Intraoperative Record MAGR Intra-Op Record Summary Primary Physician: Ward Martinez DO Finalized Date/Time: 12/31/22 11:56:55 Pt. Name: RY LERNER PERRY Leblanc/Sex: 1935 MALE Med Rec #: [id number] Physician: Ward Martinez DO Financial #: [id number] Pt. Type: D Room/Bed: / Admit/Disch: 12/31/22 [...] RN, DO Role Performed Surgeon - Primary Broadcast Journalist Broadcast Journalist Time In 12/31/22 09:15:00 12/31/22 09:15:00 12/31/22 09:15:00 Time Out 12/31/22 09:37:00 12/31/22 09:46:00 12/31/22 09:46:00 Procedure Carpal Tunnel Carpal Tunnel Carpal Tunnel Release(Right) Release(Right) Release(Right) Last Modified By: [place] PERSAUD, Chelita Borjas RN, Chelita Mc RN 12/31/22 09:49:26 12/31/22 09:49:26 12/31/22 09:49:26 Entry 4 Entry 5 Case Attendee Lavern Vasques Kelly CST [employer] P[employer]ER Role Performed Taxation Agent Scrub Personnel Time In 12/31/22 09:15:00 06/05/23 [...] By Chelita Borjas RN Scrub 10% Povidone-Iodine [place] Prep Area (Im.270) Elbow and forearm, Prep Area Details Right Hand, Wrist Skin Prep Agent Dry Yes Without Pooling Hair Removal Syntegrity Hair Removal Methods No hair removal performed Outcome Met (O.100) Yes Last Modified By: Chelita Borjas RN 12/31/22 11:55:12 Pos (more content not included)... [facility] MAGR Preoperative Record MAGR Pre-Op Record Summary Primary Physician: Ward Martinez DO Finalized Date/Time: 12/31/22 09:13:14 Pt. Name: RY LERNER/Sex: 1935 MALE Med Rec #: [id number] Physician: Ward Martinez DO Financial #: [id number] Pt. Type: D Room/Bed: / Admit/Disch: 12/31/22 [...] Signed By: Vicky Ponce RN 12/31/22 09:13 [facility] Patient Handouton 12-31-[address] 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 Keep your hand elevated above your elbow for the first 24 hours after surgery 2. Wiggle your fingers frequently while awake 3. DO NOT lift heavy objects or molecular pathologist forcefully with your hand 4. Change your [...] or concerns, please call the office at [phone] 7. Follow up as scheduled [facility] Physician Referralon 023 Physician Referral [id number] 1#1.00CD:127 Normal [facility] Living Will/POAon 12-26-2022 Living Will/POA [id number] #1.00CD:127 Normal [facility] CBC AUTO DIFFon 12-25-2022 BASO # 0.0 103/ul Normal 0.0-0.1 [facility] Comment on above: Performed By: #### C BC #### [facility] [address] [address] [address] Rashmi Nolan Basophils/100 WBC (Bld) 0.6 % Normal 0.2-2.0 [facility] Comment on above: Performed By: #### C BC #### [facility] [address] [address] [address] Rashmi Nolan EO # 0.2 103/ul Normal 0.0-0.7 [facility] Comment on above: Performed By: #### C BC #### [facility] [address] [address] [address] Rashmi Nolan Eosinophils/100 WBC (Bld) 6.9 % Normal 0.9-7.0 [facility] Comment on above: Performed By: #### C BC #### [facility] [address] [address] [address] Rashmi Nolan Erythrocyte distribution width (RBC) [Ratio] 14.0 % Normal 11.0-15.0 [facility] Comment on above: Performed By: #### C BC #### [facility] [address] [address] [address] Rashmi Nolan Hematocrit (Bld) [Volume fraction] 29.8 % Critically low 42.0-54.0 [facility] Comment on above: Performed By: #### C BC #### [facility] [address] [address] [address] Rashmi Nolan Hemoglobin (Bld) [Mass/Vol] 9.8 g/dL Critically low 14.0-18.0 [facility] Comment on above: Performed By: #### C BC #### [facility] [address] [address] [address] Rashmi Nolan IG # 0.02 10e3/ul Normal 0.00-0.03 [facility] Comment on above: Performed By: #### C BC #### [facility] [address] [address] [address] Rashmi Nolan IG % 0.6 % Critically high 0.0-0.5 [facility] Comment on above: Performed By: #### C BC #### [facility] [address] [address] [address] Rashmi Nolan LYMPH # 0.8 103/ul Critically low 1.2-3.8 [facility] Comment on above: Performed By: #### C BC #### [facility] [address] [place] [address] Dr. Rashmi Nolan Lymphocytes/100 WBC (Bld) 25.1 % Normal 20.5-60.0 [facility] Comment on above: Performed By: #### C BC #### [facility] [address] [place] [address] Dr. Rashmi Nolan MANUAL DIFF REQ NO Normal [facility] Comment on above: Performed By: #### C BC #### [facility] [address] [place] [address] Dr. Rashmi Nolan MCH (RBC) [Entitic mass] 33.0 pg Normal 25.9-34.0 [facility] Comment on above: Performed By: #### C BC #### [facility] [address] [place] [address] Dr. Rashmi Nolan MCHC (RBC) [Mass/Vol] 32.9 g/dL Normal 29.9-35.2 [facility] Comment on above: Performed By: #### C BC #### [facility] [address] [place] [address] Dr. Rashmi Nolan MCV (RBC) [Entitic vol] 100.3 fL Critically high 80.0-94.0 [facility] Comment on above: Performed By: #### C BC #### [facility] [address] [place] [address] Dr. Rashmi Nolan MONO # 0.3 103/ul Normal 0.3-0.8 [facility] Comment on above: Performed By: #### C BC #### [facility] [address] [place] [address] Dr. Rashmi Nolan Monocytes/100 WBC (Bld) 9.6 % Normal 1.7-12.0 [facility] Comment on above: Performed By: #### C BC #### [facility] [address] [address] [address] Rashmi Nolan NEUT # 1.9 103/ul Normal 1.4-6.5 [facility] Comment on above: Performed By: #### C BC #### [facility] [address] [address] [address] Rashmi Nolan Neutrophils/100 WBC (Bld) 57.2 % Normal 43.0-75.0 [facility] Comment on above: Performed By: #### C BC #### [facility] [address] [address] [address] Rashmi Nolan Platelet mean volume (Bld) [Entitic vol] 10.5 fL Normal 9.5-13.5 [facility] Comment on above: Performed By: #### C BC #### [facility] [address] [place] [address] Dr. Rashmi Nolan PLT 129 103/ul Critically low 150-450 [facility] Comment on above: Performed By: #### C BC #### [facility] [address] [place] [address] Dr. Rashmi Nolan RBC 2.97 106/ul Critically low 4.70-6.10 [facility] Comment on above: Performed By: #### C BC #### [facility] [address] [place] [address] Dr. Rashmi Nolan WBC 3.3 103/ul Critically low 4.0-11.0 [facility] Comment on above: Performed By: #### C BC #### [facility] [address] [place] [address] Dr. Rashmi Nolan PROTIMEon 12-25-2022 INR Coag (PPP) [Relative time] 1.03 {INR} Normal [facility] Comment on above: Performed By: #### B MP #### [facility] [address] [place] [address] Dr. Rashmi Nolan INR GUIDELINES SEE BELOW Normal [facility] Comment on above: Result Comment: ENOC RED INR: 2.0 - 3.0 CONDITIONS NOT LISTED BELOW 2.5 - 3.5 FOR PROSTHETIC HEART VALVE REPLACEMENT 2.5 - 3.5 RECURRENT THROMBOSIS Performed By: #### B MP #### [facility] [address] [address] [address] Rashmi Nolan PT Coag (PPP) [Time] 10.9 s Normal 9.0-11.6 [facility] Comment on above: Performed By: #### B MP #### [facility] [address] [address] [address] Rashmi Nolan PTTon 12-25-2022 aPTT Coag (Bld) [Time] 25.6 s Normal 22.3-36.2 [facility] Comment on above: Performed By: #### C BC #### [facility] [address] [place] [address] Dr. Rashmi Nolan Ambulatory Visit Summaryon 0 [...] numbers. This can be done either in [place] or metric measurements. Note that charts and online BMI calculators are available to help you find your BMI quickly and easily without having to do these calculations yourself. To calculate your BMI in [place] measurements: 1. Measure your weight in [...] fat. ? (more content not included)... Normal [facility] Family Medicine Office/Clini c Noteon 12-21-2022 Family Medicine Office/Clinic Note Chief Complaint Hospital stay follow up HPI Staff Presents for hospital follow up [facility] 12/11-12/14 bleeding ulcer/bloody stools Had Upper and lower scope done. found diverticulosis and bleeding ulcer. Questions/concerns: eczema, why needs to stay on Lasix, why taken off warfarin when to start back up. History of Present Illness pt presents today fro follow up for admission to [facility] for GI bleed Review of Systems [...] today for follow up from admission to [facility] for GI bleed. he received 2 units of blood. and had egd and colonsocopy that show a gastic ulcer and diverticulosis. he was cleared by GI yesterday. he remains off of his warfrin for now. Dr. Silva spoke to Dr. Black ([place]'s tubing machine operator) and he was ok with [...] Recorded influenza, whole 05/29/2005 Recorded Normal [facility] Comment on above: Result Comment: Elec tronically [...] numbers. This can be done either in [place] or metric measurements. Note that charts and online BMI calculators are available to help you find your BMI quickly and easily without having to do these calculations yourself. To calculate your BMI in [place] measurements: 1. Measure your weight in [...] for Disease Control and Prevention: www.cdc.gov ? [employer]: www.heart.org ? National Heart, Lung, and Blood [place]: www.nhlbi.nih.gov Summary ? Body mass index (BMI) is a number that is calculated from a person's weight and height. ? BMI may help estimate how much of a person's weight is composed of fat. BMI can help identify those who may be at higher risk for certain medical problems. ? BMI can be measured using [place] measurements or metric measurements. ? BMI charts are used to identify whether you are underweight, normal weight, overweight, or obese. This information is not intended to replace advice given to you by your health care provider. Make sure you discuss any questions you have with your health care provider. Document Revised: 04/06/2020 Document Reviewed: 02/12/2020 [employer] Patient Education ? 2022 [employer]. [facility] Coding Summaryon 12-19-2022 Coding Summary HTMLBase 64 PiupdcxmKLj9qDb+PGhl YWQ+PR5RVUUgS19iyVCt fN1nO1BALLkNLtkwEYKM CPuKEeXzhlFeTK4adFAr ZXJu IC8+NO5yVNQtShbxaZFv e3L0aRF6X70dih5xUAlh dGE9XWJwEvOinavfe3yw kFn9COacHkspQmMp NKUvqJ15JEE6wG13Kh08 lINqzAYuk4snuTa9VdUd NDLuSAP1zSjjRTtth3Er JNBzR89qzDPau1U0 IGNvbGxhcHNlOyBlbXB0 pG0gASarnvikr4knspjn Vsn8vb76oFTaw8Z9rXY4 B5DjwfX0FYNczIYr EwuooBEYsH9fjbdlz6nz efrxWcDvDCNnFYm6FEj4 PESvoKcoMnSfQS40ZFD3 GPYmlsKbG7CuFNFq pUhcYsE9a1K0Cb0BR9EA VnaaE2MEAHGXIMionUG+ MQ29px11S3DsZoilQkh6 CPJpFEA3vIT9dX9b LNQsIVnfz0U0dEP2F7Lg arZvfg1xe8ixMSPuFKga F65vuOHuv8R6VQHloRP0 ZDFcmHvfBaWomE32 Oyc+ESJasPbgo6SgAmac c6csi4vevZe6ImrbCCEh stLgcJsdURS6p9KbIw8g RMHpdNA4dFZ1iM1z VvZrOcJ1DObkX215YxEy dLZrSeulO46dT8SbfAZ+ YKZnWzf2GSWbzXjvZG1u H8MxYPWldxhduCTl xOchBA4xLLFfpmgiSHIw oJ4rMOYtX4z2QqEaEqA1 ILgvI6NlTZFynrkyAs49 sU7sZlYmBjG5KJwb F0IokdO2BDYomKHzZXhp LND1C26zd5Q0LODiLUJg FRV1uSQ5nV6fhCfpxzmb bGVmdDsgdmVydGlj FLomYHmqH562LRYukElx PkNvZGluZyBEYXRlOiAg MDUvMjQvMjAyMzwvdGQ+ CWPfKUH5oSjkEMLu tQJsDLftHb2xbOkihEce NE5lGFQkqzfvNZAvnU7s HIBzhFEzeSsuVM2qFDLu qyhev203NdPiPOW0 CKDheYQkL4DiuJ6eIsRi BUYyQHHjP8ZgmMSlTIdf F126PPecLbC6DOIgywOv Y8ImIMAqjVpgXqV1 g9A6Cv0Nz5SprljeH5Vy oAEdJnHkRoncDQv6F7Pa PjwvdHI+HJ14SADxHP40 SXb1MPN4dQdvYZyf YGVxQ5HcvZ8qCbJrFMJu ZGRkOyc+PHRhYmxlIHdp ZHRoPScxMDAlJyBzdHls DG0tMj9xOBWpKQRb nZilbEDxToRka0djAMWm TTdcWF5trZhsC6NydQX1 EVFpy5d9Jo00Q45oE9Np dXA+PWWfwAO0ySO0 qV2cHtQkKiG7VEsdP905 HvSxwQIwCbtxd9ndv6eb gRg2AaZ6ZVWlicZqyPja PCU6k3WyLo22E52b IHdpZHRoPSIxNSUiIHZh zFtutt4xnF6oOo9+PGNv hTV3mFR3kF1yBsHsEpO0 QIjbS944JgAchFGk Tpgwl4rks5hfcDu0RsPc TLYglwPefCarIKF6i5Wc Ch08D5PscEmnw2KxQju2 ex25qNYpf5Z6tAD1 L8KjZKXqfluenZLhyZdp RN1rTAXktoiiDAZonI4e FLMhV0g8NeQdDgY2IOcj M8ZarqV4VDSvxNZz TYKvfEHQgY6ktqsun6oo txnpDhItNXGkRVj6JGt3 LUFdnFdvLzAiYDX1ZaG4 INH3cIMyyV4igZzw zdbphV8kJey+VCR5hMOc ePMXQP3rOouysLO+PHRk KAX6vVjePAngUAOumL8w ARShD6w5YoQpZaT5 ZEggJ3ZybyG2GUMovNHu VMPlxEJCxB1jlwmcf6um tnhaOdPeDHPvOIl6HPz4 LWFsaWduOiBsZWZ0 NhM5URZ4gFUqzY9uxLpa wdottZ3jMsq+QmlydGgg SEK5MBv2Q0KzHtc2VFOx nPmkBE2cyDPyLUea Qg4neStehFuzBH9cXAOq lcvyt779XhJyn2epDEJc lVKuZEqoUSW8W64vu0F9 XVOtJMUmNKJ7nHN3 iJ3uqHtsbehdzWIoeSkr nzVmiRuzVQbdYYqhP141 KIPmuVqqVkOtXEo5Q4Du Mcj0LPAlsHquJU2f uBEwAInpAr5tvChhwWkn KW3mZNJtebslo330QuIt z5gzDACluFJyPSpfQXL5 Y16uj8P7BNEbXQYk ZAJ2vBN3eG6tfBewuehm bGVmdDsgdmVydGljYWwt KYzuC477SVWlpBioUzGb aUy7S9NtWyp6ZGLq eIqbWI0anTGqTQtyDa6f qYzkfQoaJW8tKIQqznxm s052XvRgu0rvGNLtkETc OKnfFXT9F11vv9V7 YSLeQUGmSGS4wLR4mI8d bGlnbjogbGVmdDsgdmVy qLreEWzpHMlrV390RUDa cDsnPlBhdGllbnQg WSexILb0W0TeKubxoGW+ JF43YMIaBW23dFUyvBKs x7yvjNk4DbHfAOFiVUY1 tRgjDZdty9DoBGPd O46waVCxm6B8AEAsrXpq kUFhYlXieHB4aW6gUYhh dtpxd3tsejusAlsfi9si ed37xU33M17tHMgi ZHRoPSIzMCUiIHZhbGln af1jeA9wXe3+PGNvbCB3 yQY1zJ8cOBGbYkC1LVdw G202QfPbaFBgYsoi s5gub4mqyFa2AoG0QKHc ajAvkRmhTGG6q3SoDz28 S27qIVwpFUFpXVCoCRGd DZRfwJrutq4jvM9z Ii8+NBUgpYF5iTC8hT4q SyEbVqE1PKrkS796RbGp tFTuIztgR31jH4GmrSP+ JRZnMmc1APNodGhr HV8ppMDpDFbiPz0tDTP3 EhSmZqRtSMpqW3PbCALq jcuudiiieVW8SEPuKRDb zM35Us4inNpgYWOd aCYChL4gzpmuq8lfinve LwFnADJtRUw8XQy0ARHu nHwwYfYhMZO3KaV4LBT8 gYYuxM6qaBjqjrfb nH5zS0DwAFLxmocwJu74 bF1qBrMoRzJ4NRtxFug+ EOlNRXUOKDHZJMREHI6Q UVpXY56YLI91PL38 dTHdu9O7cYI0X9PrMZBj xblkkdbzzCW1YSWpPVKz yT32hWVnAOnySt3fy5P8 m499TAUoVDQxdB44 Xn9yzYeaGFLfdLOLbX3p ihvwp4zsskcqKhZqZKHa IYl7NMy0ZWWycKmbTjQp CDY9TqA6HQS4pCXq tR5gzUleudnzrH6iWxh+ MDMvMDQvMTkzNTwvdGQ+ NXRoGCL7gJycGSxuOBNf hS0bICQtE6b0BuKw VyJ2QUshV7RrSBSmyrdb Ag62xS5gYjPzMcR8HYnq N5UgbhN9BHAbqUNqPCyz BXW1C66eo7Q1WROh QVPhPKK7rUI6dB6xjChh bjogbGVmdDsgdmVydGlj GMnpOCkeK262UXDdeXyb Xou3QNitFXFuQC22 XH13jFSie5Z4tAO9Y3Tp BQYxokqvhfgihNI6KGRh DRYfkN24sZPoRGoqSa8l x5E4b857ETExFKBg aW86Sb9cxYvkNYRyeUJF eL7yqawjq4kgnufcBlKu TPTzHZh1MYg7XDZooBfg UgVhRBZ7LqM5VPG0 iXSboE5uePdywuguwL6i Oyc+TUFMRTwvdGQ+PHRk ZUO3bBpkFHbmIYGqbD3o FXReS0r5BgRoFpI0 NEjqT7NuMKIhmzdyEi92 nD3lBqNaKwC6XNqcF3Xn xiT8QREjuAHfNTjySHP4 B27by9U5JWLeEPXv HMC8qSL6qM4nfHthaekt bGVmdDsgdmVydGljYWwt DKzhB774BZKnlBhfKsNk vJZMmZLhZAB8AU07 LG22U8KhObpfbQYgsGN+ PHRhYmxlIHdpZHRoPScx AEJsVdPonVowHF5nYy2q ZGVyLWNvbGxhcHNl HtTvj5pjJDWiKJeiTP3l oOegX6XypOU8TWHwm6w3 Ag36A84aK4ZgtTF+PGNv pBI2zSL6dU7yMmGr CjB2YNfbR740BvGyzIQn Yfbvy6fry7fauZn7UaVu MMJodvRnrEekZOC0c1Uw Lu78K45bKYdvRFEl FAWbPCAjHCYrhZlcte1i yE9zHl2+JTXjjVA8lEN0 dE1jMeGsFvH2PKglK555 IiRsfSZsEhsaO55h G8FmlYO+EXRxSad3GZHy oGoaZB8roZRzWKoyUl9t HIG3TqLaLpWnGAzrM4Mz ZGRpbmctcmlnaHQ6 NREmXULtaP05Ep9kaIgn Cm5pYVJpXEW8ZJAcyXXe C8JueK6qGbXlDCPyWJDi D5TomZDnCMjqM819 KSstHzS0HAZsixYrZ1Mb LQCgyRttZoA9z8V3Rs6K sUiixFOlAH2zSlInCSz9 E7UdDwh3XVCljEoe DK8ztSPeNYsuXz8zdBwn oWbaJY5sZGVssxzkd793 MsGvl8pmZTNwpZIwCFum DEU8G56dj0K4ARUz VXYkCJI0yEB8oV2pgYez bjogbGVmdDsgdmVydGlj YRmrMVbyL734NZFgaKgf MfTHKfm8J2VdJck2 LTEujKzyMT8agSMjJUuu Ti3svChpnWtqQJ3nLREd hacvg034XgWzp4uvXCCl sXAcEOzzTPU1A95o m7U6INUmXTRrLZI4wTZ2 mX1taEysriyfxFLseGjp lqTpzLvvRRtwNJtuZ635 WWUuhRqqFs6OTai0 I6WxZox8QDUfdHodFP7q rCWzLKrrRh3pcHfjtTdb AM2bCETvlehcj941XjOy r5bqIFIbkRLxMHpm TVX4W64mr9O2ARCcKZEh FHF3kTY0tH7biTdjawov bGVmdDsgdmVydGljYWwt WWdiQ115PKHjeRrh PlBheWVyOjwvdGQ+PC90 hj22L9TaXrpqXxl2IWZj WKG7gYI1jL5bPXGkALxj u0Y5jPK7V8YpdnDw ci1 (more content not included)... [facility] 12-18-19 [facility] Case Information Case Priority: None Programs: -- Referral Source: Blood Coordinator Referral Reason: Care coordination Case Type: Transition [...] call office and ask to speak with health care marketing specialist if he had any questions or concerns. Communication Events Date: December 17, 2022 Method: Phone call Type: Outbound Duration (min): 5 Outcome: Case discussion Contact Type: Patient Contact Name: RY LERNER Notes: TCM #1-see summary note. Created By: Ezequiel PERSAUD, Sandra Calix [facility] CBC AUTO DIFFon 12-14-2022 BASO # 0.0 103/ul Normal 0.0-0.1 [facility] Comment on above: Performed By: #### C BC #### [facility] [address] [place] [address] Dr. Rashmi Nolan Basophils/100 WBC (Bld) 0.6 % Normal 0.2-2.0 [facility] Comment on above: Performed By: #### C BC #### [facility] [address] [place] [address] Dr. Rashmi Nolan EO # 0.4 103/ul Normal 0.0-0.7 [facility] Comment on above: Performed By: #### C BC #### [facility] [address] [address] [address] Rashmi Nolan Eosinophils/100 WBC (Bld) 11.9 % Critically high 0.9-7.0 [facility] Comment on above: Performed By: #### C BC #### [facility] [address] [address] [address] Rashmi Nolan Erythrocyte distribution width (RBC) [Ratio] 15.2 % Critically high 11.0-15.0 [facility] Comment on above: Performed By: #### C BC #### [facility] [address] [address] [address] Rashmi Nolan Hematocrit (Bld) [Volume fraction] 26.3 % Critically low 42.0-54.0 [facility] Comment on above: Performed By: #### C BC #### [facility] [address] [place] [address] Dr. Rashmi Nolan Hemoglobin (Bld) [Mass/Vol] 8.9 g/dL Critically low 14.0-18.0 [facility] Comment on above: Performed By: #### C BC #### [facility] [address] [place] [address] Dr. Rashmi Nolan IG # 0.01 10e3/ul Normal 0.00-0.03 [facility] Comment on above: Performed By: #### C BC #### [facility] [address] [place] [address] Dr. Rashmi Nolan IG % 0.3 % Normal 0.0-0.5 [facility] Comment on above: Performed By: #### C BC #### [facility] [address] [place] [address] Dr. Rashmi Nolan LYMPH # 0.8 103/ul Critically low 1.2-3.8 [facility] Comment on above: Performed By: #### C BC #### [facility] [address] [place] [address] Dr. Rashmi Nolan Lymphocytes/100 WBC (Bld) 25.1 % Normal 20.5-60.0 [facility] Comment on above: Performed By: #### C BC #### [facility] [address] [place] [address] Dr. Rashmi Nolan MANUAL DIFF REQ NO Normal [facility] Comment on above: Performed By: #### C BC #### [facility] [address] [place] [address] Dr. Rashmi Nolan MCH (RBC) [Entitic mass] 33.0 pg Normal 25.9-34.0 [facility] Comment on above: Performed By: #### C BC #### [facility] [address] [place] [address] Dr. Rashmi Nolan MCHC (RBC) [Mass/Vol] 33.8 g/dL Normal 29.9-35.2 [facility] Comment on above: Performed By: #### C BC #### [facility] [address] [place] [address] Dr. Rashmi Nolan MCV (RBC) [Entitic vol] 97.4 fL Critically high 80.0-94.0 [facility] Comment on above: Performed By: #### C BC #### [facility] [address] [address] [address] Rashmi Nolan MONO # 0.3 103/ul Normal 0.3-0.8 [facility] Comment on above: Performed By: #### C BC #### [facility] [address] [address] [address] Rashmi Nolan Monocytes/100 WBC (Bld) 9.0 % Normal 1.7-12.0 [facility] Comment on above: Performed By: #### C BC #### [facility] [address] [place] [address] Dr. Rashmi Nolan NEUT # 1.7 103/ul Normal 1.4-6.5 [facility] Comment on above: Performed By: #### C BC #### [facility] [address] [place] [address] Dr. Rashmi Nolan Neutrophils/100 WBC (Bld) 53.1 % Normal 43.0-75.0 [facility] Comment on above: Performed By: #### C BC #### [facility] [address] [place] [address] Dr. Rashmi Nolan Platelet mean volume (Bld) [Entitic vol] 10.2 fL Normal 9.5-13.5 [facility] Comment on above: Performed By: #### C BC #### [facility] [address] [place] [address] Dr. Rashmi Nolan PLT 139 103/ul Critically low 150-450 [facility] Comment on above: Performed By: #### C BC #### [facility] [address] [place], [place] [id number] Dr. Rashmi Nolan RBC 2.70 106/ul Critically low 4.70-6.10 [facility] Comment on above: Performed By: #### C BC #### [facility] [address] [place] [address] Dr. Rashmi Nolan WBC 3.1 103/ul Critically low 4.0-11.0 [facility] Comment on above: Performed By: #### C #### [facility] [address] [place] [address] Dr. Rashmi Nolan MAGR Intraoperative Recordon 12-14-2022 MAG[facility] Intraoperative Record MAGR Intra-Op Record Summary Primary Physician: Ward Martinez DO Finalized Date/Time: 12/14/22 09:30:19 Pt. Name: RY LERNER PERRY Leblanc/Sex: 1935 MALE Med Rec #: [id number] Physician: Ward Martinez DO Financial #: [id number] Pt. Type: D Room/Bed: / Admit/Disch: 12/10/22 [...] Andrew DO Role Performed Surgeon - Primary Broadcast Journalist Broadcast Journalist Time In 12/10/22 15:05:00 12/10/22 14:54:00 12/10/22 14:54:00 Time Out 12/10/22 15:30:00 12/10/22 15:30:00 12/10/22 15:30:00 Procedure Carpal Tunnel Carpal Tunnel Carpal Tunnel Release(Left) Release(Left) Release(Left) Last Modified By: Maile aPlmer RN, Barbara RN Long, Barbara RN 12/10/22 15:29:30 12/10/22 15:29:30 12/10/22 15:29:30 Entry 4 Entry 5 Case Attendee Macie Licea CST, CST, Brandi Role Performed Taxation Agent Scrub Personnel Time In 12/10/22 14:54:00 12/10/22 [...] By Maile Palmer RN Scrub 10% Povidone-Iodine [place] Prep Area (Im.270) Arm lower Prep Area [...] injury Counts (more content not included)... Normal [facility] Outside Colonoscopyon 2022 Outside Colonoscopy 104.37 [id number] #1.00CD:127 Normal [facility] Correspo ndence 12-14-2022 [facility] Correspondence 104.37 [id number] #1.00CD:127 [facility] Correspondence 104.36 [id number] #1.00CD:127 [facility] Correspondence 104.37 [id number] #1.00CD:127 [facility] Correspondence [id number] #1.00CD:127 Normal [facility] Correspondence [id number] #1.00CD:127 Normal [facility] PROF CHEM 8 (BAS METB)on Anion gap [Moles/Vol] 12.6 mmol/L Normal [facility] Comment on above: Performed By: #### B MP #### [facility] [address] [address] [address] Rashmi Nolan Calcium [Mass/Vol] 9.7 mg/dL Normal 8.5-10.1 [facility] Comment on above: Performed By: #### B MP #### [facility] [address] [place] [address] Dr. Rashmi Nolan Chloride [Moles/Vol] 108 mmol/L Critically high 98-107 [facility] Comment on above: Performed By: #### B MP #### [facility] [address] [address] [address] Rashmi Nolan CO2 [Moles/Vol] 24.5 mmol/L Normal 21.0-32.0 [facility] Comment on above: Performed By: #### B MP #### [facility] [address] [address] [address] Rashmi Nolan Creatinine [Mass/Vol] 1.68 mg/dL Critically high 0.70-1.30 [facility] Comment on above: Performed By: #### B MP #### [facility] [address] [address] [address] Rashmi Nolan EGFR-AF MACANESE 47 mL/min/1.73m2 Critically low >=60 [facility] Comment on above: Performed By: #### B MP #### [facility] [address] [address] [address] Rashmi Nolan EGFR-NON AF MACANESE 39 mL/min/1.73m2 Critically low >=60 [facility] Comment on above: Performed By: #### B MP #### [facility] [address] [place] [address] Dr. Rashmi Nolan Glucose [Mass/Vol] 91 mg/dL Normal 74-106 [facility] Comment on above: Performed By: #### B MP #### [facility] [address] [place] [address] Dr. Rashmi Nolan Potassium [Moles/Vol] 5.1 mmol/L Normal 3.5-5.1 [facility] Comment on above: Performed By: #### B MP #### [facility] [address] [address] [address] Rashmi Nolan Sodium [Moles/Vol] 140 mmol/L Normal 136-145 [facility] Comment on above: Performed By: #### B MP #### [facility] [address] [place] [address] Dr. Rashmi Nolan Urea nitrogen [Mass/Vol] 27.0 mg/dL Critically high 7.0-18.0 [facility] Comment on above: Performed By: #### B MP #### [facility] [address] [place] [address] Dr. Rashmi Nolan Urea nitrogen/Creatinine [Mass ratio] 16.1 mg/mg Normal [facility] Comment on above: Performed By: #### B MP #### [facility] [address] [place] [address] Dr. Rashmi Nolan Transfer Inon 12-14-2022 Transfer In [id number] #1.00CD:127 Normal [facility] CBC AUTO DIFFon 12-13-2022 BASO # 0.0 103/ul Normal 0.0-0.1 [facility] Comment on above: Performed By: #### C BC #### [facility] [address] [place] [address] Dr. Rashmi Nolan Basophils/100 WBC (Bld) 0.6 % Normal 0.2-2.0 [facility] Comment on above: Performed By: #### C BC #### [facility] [address] [place] [address] Dr. Rashmi Nolan EO # 0.4 103/ul Normal 0.0-0.7 [facility] Comment on above: Performed By: #### C BC #### [facility] [address] [place] [address] Dr. Rashmi Nolan Eosinophils/100 WBC (Bld) 10.3 % Critically high 0.9-7.0 [facility] Comment on above: Performed By: #### C BC #### [facility] [address] [place] [address] Dr. Rashmi Nolan Erythrocyte distribution width (RBC) [Ratio] 15.8 % Critically high 11.0-15.0 [facility] Comment on above: Performed By: #### C BC #### [facility] [address] [place] [address] Dr. Rashmi Nolan Hematocrit (Bld) [Volume fraction] 25.7 % Critically low 42.0-54.0 [facility] Comment on above: Performed By: #### C BC #### [facility] [address] [place] [address] Dr. Rashmi Nolan Hemoglobin (Bld) [Mass/Vol] 8.5 g/dL Critically low 14.0-18.0 [facility] Comment on above: Performed By: #### C BC #### [facility] [address] [place] [address] Dr. Rashmi Nolan IG # 0.00 10e3/ul Normal 0.00-0.03 [facility] Comment on above: Performed By: #### C BC #### [facility] [address] [place] [address] Dr. Rashmi Nolan IG % 0.0 % Normal 0.0-0.5 [facility] Comment on above: Performed By: #### C BC #### [facility] [address] [place] [address] Dr. Rashmi Nolan LYMPH # 0.8 103/ul Critically low 1.2-3.8 [facility] Comment on above: Performed By: #### C BC #### [facility] [address] [place] [address] Dr. Rashmi Nolan Lymphocytes/100 WBC (Bld) 23.5 % Normal 20.5-60.0 [facility] Comment on above: Performed By: #### C BC #### [facility] [address] [place] [address] Dr. Rashmi Nolan MANUAL DIFF REQ NO Normal [facility] Comment on above: Performed By: #### C BC #### [facility] [address] [place] [address] Dr. Rashmi Nolan MCH (RBC) [Entitic mass] 32.9 pg Normal 25.9-34.0 [facility] Comment on above: Performed By: #### C BC #### [facility] [address] [place] [address] Dr. Rashmi Nolan MCHC (RBC) [Mass/Vol] 33.1 g/dL Normal 29.9-35.2 [facility] Comment on above: Performed By: #### C BC #### [facility] [address] [place] [address] Dr. Rashmi Nolan MCV (RBC) [Entitic vol] 99.6 fL Critically high 80.0-94.0 [facility] Comment on above: Performed By: #### C BC #### [facility] [address] [place] [address] Dr. Rashmi Nolan MONO # 0.3 103/ul Normal 0.3-0.8 [facility] Comment on above: Performed By: #### C BC #### [facility] [address] [place] [address] Dr. Rashmi Nolan Monocytes/100 WBC (Bld) 8.9 % Normal 1.7-12.0 [facility] Comment on above: Performed By: #### C BC #### [facility] [address] [place] [address] Dr. Rashmi Nolan NEUT # 2.0 103/ul Normal 1.4-6.5 [facility] Comment on above: Performed By: #### C BC #### [facility] [address] [place] [address] Dr. Rashmi Nolan Neutrophils/100 WBC (Bld) 56.7 % Normal 43.0-75.0 [facility] Comment on above: Performed By: #### C BC #### [facility] [address] [address] [address] Rashmi Nolan Platelet mean volume (Bld) [Entitic vol] 10.5 fL Normal 9.5-13.5 [facility] Comment on above: Performed By: #### C BC #### [facility] [address] [address] [address] Rashmi Nolan PLT 134 103/ul Critically low 150-450 [facility] Comment on above: Performed By: #### C BC #### [facility] [address] [address] [address] Rashmi Nolan RBC 2.58 106/ul Critically low 4.70-6.10 [facility] Comment on above: Performed By: #### C BC #### [facility] [address] [address] [address] Rashmi Nolan WBC 3.6 103/ul Critically low 4.0-11.0 [facility] Comment on above: Performed By: #### C BC #### [facility] [address] [address] [address] Rashmi Nolan PROF CHEM 8 (BAS METB)on Anion gap [Moles/Vol] 11.7 mmol/L Normal [facility] Comment on above: Performed By: #### C BC #### [facility] [address] [address] [address] Rashmi Nolan Calcium [Mass/Vol] 9.5 mg/dL Normal 8.5-10.1 [facility] Comment on above: Performed By: #### C BC #### [facility] [address] [address] [address] Rashmi Nolan Chloride [Moles/Vol] 110 mmol/L Critically high 98-107 [facility] Comment on above: Performed By: #### C BC #### [facility] [address] [address] [address] Rashmi Nolan CO2 [Moles/Vol] 25.1 mmol/L Normal 21.0-32.0 [facility] Comment on above: Performed By: #### C BC #### [facility] [address] [address] [address] Rashmi Nolan Creatinine [Mass/Vol] 1.69 mg/dL Critically high 0.70-1.30 [facility] Comment on above: Performed By: #### C BC #### [facility] [address] [address] [address] Rashmi Nolan EGFR-AF MACANESE 47 mL/min/1.73m2 Critically low >=60 [facility] Comment on above: Performed By: #### C BC #### [facility] [address] [address] [address] Rashmi Nolan EGFR-NON AF MACANESE 38 mL/min/1.73m2 Critically low >=60 [facility] Comment on above: Performed By: #### C BC #### [facility] [address] [address] [address] Rashmi Nolan Glucose [Mass/Vol] 93 mg/dL Normal 74-106 [facility] Comment on above: Performed By: #### C BC #### [facility] [address] [address] [address] Rashmi Nolan Potassium [Moles/Vol] 5.8 mmol/L Critically high 3.5-5.1 [facility] Comment on above: Performed By: #### C BC #### [facility] [address] [address] [address] Rashmi Nolan Sodium [Moles/Vol] 141 mmol/L Normal 136-145 [facility] Comment on above: Performed By: #### C BC #### [facility] [address] [address] [address] Rashmi Nolan Urea nitrogen [Mass/Vol] 35.0 mg/dL Critically high 7.0-18.0 [facility] Comment on above: Performed By: #### C BC #### [facility] [address] [address] [address] Rashmi Nolna Urea nitrogen/Creatinine [Mass ratio] 20.7 mg/mg Normal [facility] Comment on above: Performed By: #### C BC #### [facility] [address] [address] [address] Rashmi Nolan ABO RH RETYPEon 12-12-2022 ABO and Rh group Nom (Bld) DONE Normal [facility] Comment on above: Performed By: #### C BC #### [facility] [address] [place] [address] Dr. Rashmi Nolan Auth for Release of Medical Recordson 12-12-2022 Auth for Release of Medical Records [id number] #1.00CD:127 Normal [facility] CBC AUTO DIFFon 12-12-2022 BASO # 0.0 103/ul Normal 0.0-0.1 [facility] Comment on above: Performed By: #### C BC #### [facility] [address] [place] [address] Dr. Rashmi Nolan Basophils/100 WBC (Bld) 0.6 % Normal 0.2-2.0 [facility] Comment on above: Performed By: #### C BC #### [facility] [address] [address] [address] Rashmi Nolan EO # 0.3 103/ul Normal 0.0-0.7 [facility] Comment on above: Performed By: #### C BC #### [facility] [address] [address] [address] Rashmi Nolan Eosinophils/100 WBC (Bld) 7.6 % Critically high 0.9-7.0 [facility] Comment on above: Performed By: #### C BC #### [facility] [address] [address] [address] Rashmi Nolan Erythrocyte distribution width (RBC) [Ratio] 16.4 % Critically high 11.0-15.0 [facility] Comment on above: Performed By: #### C BC #### [facility] [address] [place] [address] Dr. Rashmi Nolan Hematocrit (Bld) [Volume fraction] 27.2 % Critically low 42.0-54.0 [facility] Comment on above: Performed By: #### C BC #### [facility] [address] [address] [address] Rashmi Nolan Hemoglobin (Bld) [Mass/Vol] 9.1 g/dL Critically low 14.0-18.0 [facility] Comment on above: Performed By: #### C BC #### [facility] [address] [address] [address] Rashmi Nolan IG # 0.01 10e3/ul Normal 0.00-0.03 [facility] Comment on above: Performed By: #### C BC #### [facility] [address] [place] [address] Dr. Rashmi Nolan IG % 0.3 % Normal 0.0-0.5 [facility] Comment on above: Performed By: #### C BC #### [facility] [address] [place] [address] Dr. Rashmi Nolan LYMPH # 0.9 103/ul Critically low 1.2-3.8 [facility] Comment on above: Performed By: #### C BC #### [facility] [address] [place] [address] Dr. Rashmi Nolan Lymphocytes/100 WBC (Bld) 25.3 % Normal 20.5-60.0 [facility] Comment on above: Performed By: #### C BC #### [facility] [address] [place] [address] Dr. Rashmi Nolan MANUAL DIFF REQ NO Normal [facility] Comment on above: Performed By: #### C BC #### [facility] [address] [place] [address] Dr. Rashmi Nolan MCH (RBC) [Entitic mass] 33.0 pg Normal 25.9-34.0 [facility] Comment on above: Performed By: #### C BC #### [facility] [address] [place] [address] Dr. Rashmi Nolan MCHC (RBC) [Mass/Vol] 33.5 g/dL Normal 29.9-35.2 [facility] Comment on above: Performed By: #### C BC #### [facility] [address] [address] [address] Rashmi Nolan MCV (RBC) [Entitic vol] 98.6 fL Critically high 80.0-94.0 [facility] Comment on above: Performed By: #### C BC #### [facility] [address] [address] [address] Rashmi Nolan MONO # 0.3 103/ul Normal 0.3-0.8 [facility] Comment on above: Performed By: #### C BC #### [facility] [address] [address] [address] Rashmi Nolan Monocytes/100 WBC (Bld) 8.1 % Normal 1.7-12.0 [facility] Comment on above: Performed By: #### C BC #### [facility] [address] [address] [address] Rashmi Nolan NEUT # 2.0 103/ul Normal 1.4-6.5 [facility] Comment on above: Performed By: #### C BC #### [facility] [address] [address] [address] Rashmi Nolan Neutrophils/100 WBC (Bld) 58.1 % Normal 43.0-75.0 [facility] Comment on above: Performed By: #### C BC #### [facility] [address] [address] [address] Rashmi Nolan Platelet mean volume (Bld) [Entitic vol] 10.0 fL Normal 9.5-13.5 [facility] Comment on above: Performed By: #### C BC #### [facility] [address] [address] [address] Rashmi Nolan PLT 147 103/ul Critically low 150-450 [facility] Comment on above: Performed By: #### C BC #### [facility] [address] [address] [address] Rashmi Nolan RBC 2.76 106/ul Critically low 4.70-6.10 [facility] Comment on above: Performed By: #### C BC #### [facility] [address] [address] [address] Rashmi Nolan WBC 3.4 103/ul Critically low 4.0-11.0 [facility] Comment on above: Performed By: #### C BC #### [facility] [address] [address] [address] Rashmi Nolan BASO # 0.0 103/ul Normal 0.0-0.1 [facility] Comment on above: Performed By: #### C BC #### [facility] [address] [address] [address] Rashmi Nolan Basophils/100 WBC (Bld) 0.6 % Normal 0.2-2.0 [facility] Comment on above: Performed By: #### C BC #### [facility] [address] [address] [address] Rashmi Nolan EO # 0.2 103/ul Normal 0.0-0.7 [facility] Comment on above: Performed By: #### C BC #### [facility] [address] [place] [address] Dr. Rashmi Nolan Eosinophils/100 WBC (Bld) 6.6 % Normal 0.9-7.0 [facility] Comment on above: Performed By: #### C BC #### [facility] [address] [place] [address] Dr. Rashmi Nolan Erythrocyte distribution width (RBC) [Ratio] 16.4 % Critically high 11.0-15.0 [facility] Comment on above: Performed By: #### C BC #### [facility] [address] [place] [address] Dr. Rashmi Nolan Hematocrit (Bld) [Volume fraction] 26.1 % Critically low 42.0-54.0 [facility] Comment on above: Performed By: #### C BC #### [facility] [address] [place] [address] Dr. Rashmi Nolan Hemoglobin (Bld) [Mass/Vol] 8.5 g/dL Critically low 14.0-18.0 [facility] Comment on above: Result Comment: rcvd . blood Performed By: #### C BC #### [facility] [address] [address] [address] Rashmi Nolan IG # 0.01 10e3/ul Normal 0.00-0.03 [facility] Comment on above: Performed By: #### C BC #### [facility] [address] [place] [address] Dr. Rashmi Nolan IG % 0.3 % Normal 0.0-0.5 [facility] Comment on above: Performed By: #### C BC #### [facility] [address] [place] [address] Dr. Rashmi Nolan LYMPH # 0.7 103/ul Critically low 1.2-3.8 [facility] Comment on above: Performed By: #### C BC #### [facility] [address] [place] [address] Dr. Rashmi Nolan Lymphocytes/100 WBC (Bld) 20.2 % Critically low 20.5-60.0 [facility] Comment on above: Performed By: #### C BC #### [facility] [address] [place] [address] Dr. Rashmi Nolan MANUAL DIFF REQ NO Normal [facility] Comment on above: Performed By: #### C BC #### [facility] [address] [place] [address] Dr. Rashmi Nolan MCH (RBC) [Entitic mass] 32.7 pg Normal 25.9-34.0 [facility] Comment on above: Performed By: #### C BC #### [facility] [address] [place] [address] Dr. Rashmi Nolan MCHC (RBC) [Mass/Vol] 32.6 g/dL Normal 29.9-35.2 [facility] Comment on above: Performed By: #### C BC #### [facility] [address] [place] [address] Dr. Rashmi Nolan MCV (RBC) [Entitic vol] 100.4 fL Critically high 80.0-94.0 [facility] Comment on above: Performed By: #### C BC #### [facility] [address] [address] [address] Rashmi Nolan MONO # 0.3 103/ul Normal 0.3-0.8 [facility] Comment on above: Performed By: #### C BC #### [facility] [address] [address] [address] Rashmi Nolan Monocytes/100 WBC (Bld) 7.7 % Normal 1.7-12.0 [facility] Comment on above: Performed By: #### C BC #### [facility] [address] [place] [address] Dr. Rashmi Nolan NEUT # 2.3 103/ul Normal 1.4-6.5 [facility] Comment on above: Performed By: #### C BC #### [facility] [address] [place] [address] Dr. Rashmi Nolan Neutrophils/100 WBC (Bld) 64.6 % Normal 43.0-75.0 [facility] Comment on above: Performed By: #### C BC #### [facility] [address] [place] [address] Dr. Rashmi Nolan Platelet mean volume (Bld) [Entitic vol] 9.9 fL Normal 9.5-13.5 [facility] Comment on above: Performed By: #### C BC #### [facility] [address] [place] [address] Dr. Rashmi Nolan PLT 130 103/ul Critically low 150-450 [facility] Comment on above: Performed By: #### C BC #### [facility] [address] [place] [address] Dr. Rashmi Nolan RBC 2.60 106/ul Critically low 4.70-6.10 [facility] Comment on above: Performed By: #### C BC #### [facility] [address] [place] [address] Dr. Rashmi Nolan WBC 3.6 103/ul Critically low 4.0-11.0 [facility] Comment on above: Performed By: #### C BC #### [facility] [address] [place] [address] Dr. Rashmi Nolan PRBC LEUKOREDUCEDon 12-13-19 ABO and Rh group Nom (Bld) Cross Match Result Compatible Unit Blood Type O Pos Unit Number [id number] Status Information Issued Product ID Red Blood Cells Product Code [id number] Issue Date/Time [id number] Cross Match Result Compatible Unit Blood Type O Pos Unit Number [id number] Status Information Issued Product ID Red Blood Cells Product Code [id number] Issue Date/Time [id number] Normal [facility] Comment on above: Performed By: #### C BC #### [facility] [address] [place] [address] Dr. Rashmi Nolan PROF CHEM 8 (BAS METB)on Anion gap [Moles/Vol] 14.8 mmol/L Normal [facility] Comment on above: Performed By: #### B MP #### [facility] [address] [place] [address] Dr. Rashmi Nolan Calcium [Mass/Vol] 9.2 mg/dL Normal 8.5-10.1 [facility] Comment on above: Performed By: #### B MP #### [facility] [address] [address] [address] Rashmi Nolan Chloride [Moles/Vol] 110 mmol/L Critically high 98-107 [facility] Comment on above: Performed By: #### B MP #### [facility] [address] [address] [address] Rashmi Nolan CO2 [Moles/Vol] 23.5 mmol/L Normal 21.0-32.0 [facility] Comment on above: Performed By: #### B MP #### [facility] [address] [place] [address] Dr. Rashmi Nolan Creatinine [Mass/Vol] 1.77 mg/dL Critically high 0.70-1.30 [facility] Comment on above: Performed By: #### B MP #### [facility] [facility] [address] [address] [address] Rashmi Nolan EGFR-AF MACANESE 44 mL/min/1.73m2 Critically low >=60 [facility] Comment on above: Performed By: #### B MP #### [facility] [address] [address] [address] Rashmi Nolan EGFR-NON AF MACANESE 36 mL/min/1.73m2 Critically low >=60 [facility] Comment on above: Performed By: #### B MP #### [facility] [address] [address] [address] Rashmi Nolan Glucose [Mass/Vol] 103 mg/dL Normal 74-106 [facility] Comment on above: Performed By: #### B MP #### [facility] [address] [address] [address] Rashmi Nolan Potassium [Moles/Vol] 5.3 mmol/L Critically high 3.5-5.1 [facility] Comment on above: Performed By: #### B MP #### [facility] [address] [address] [address] Rashmi Nolan Sodium [Moles/Vol] 143 mmol/L Normal 136-145 [facility] Comment on above: Performed By: #### B MP #### [facility] [address] [address] [address] Rashmi Nolan Urea nitrogen [Mass/Vol] 54.0 mg/dL Critically high 7.0-18.0 [facility] Comment on above: Performed By: #### B MP #### [facility] [address] [address] [address] Rashmi Nolan Urea nitrogen/Creatinine [Mass ratio] 30.5 mg/mg Normal [facility] Comment on above: Performed By: #### B MP #### [facility] [address] [address] [address] Rashmi Nolan Auto Diffon 12-11-2022 Basophils/100 WBC (Bld) 0.5 % Normal 0.0-2.0 [facility] Comment on above: Order Comment: Order Added by Discern Expert. Performed By: #### 2 [id number], [id number], [id number] ####[facility] [address] [place] [address] Basophils/Leukocytes Auto (Bld) [Pure # fraction] 0.0 E9/L Normal 0.0-0.2 [facility] Comment on above: Order Comment: Order Added by Discern Expert. Performed By: #### 2 779489, [id number], [id number] ####[address] [address] Eosinophils/100 WBC (Bld) 3.4 % Normal 0.0-8.0 [facility] Comment on above: Order Comment: Order Added by Discern Expert. Performed By: #### 2 185560, [id number], [id number] ####[address] [address] Eosinophils/Leukocyte s Auto (Bld) [Pure # fraction] 0.2 E9/L Normal 0.0-0.5 [facility] Comment on above: Order Comment: Order Added by Ronnie Expert. Performed By: #### 2 833793, [id number], [id number] ####[address] [address] Lymphocytes/100 WBC (Bld) 17.1 % Normal 14.0-50.0 [facility] Comment on above: Order Comment: Order Added by Discern Expert. Performed By: #### 2 277983, 3639978, [id number] ####[address] [address] Lymphocytes/Leukocyte s Auto (Bld) [Pure # fraction] 0.9 E9/L Low 1.0-4.0 [facility] Comment on above: Order Comment: Order Added by Discern Expert. Performed By: #### 2 887368, 7115461, [id number] ####[address] [address] Monocytes/100 WBC (Bld) 6.1 % Normal 4.0-14.0 [facility] Comment on above: Order Comment: Order Added by Ronnie Expert. Performed By: #### 2 927284, [id number], [id number] ####[address] [address] Monocytes/Leukocytes Auto (Bld) [Pure # fraction] 0.3 E9/L Normal 0.2-1.0 [facility] Comment on above: Order Comment: Order Added by Discern Expert. Performed By: #### 2 071350, 6687819, [id number] ####[address] [place] [address] Neutrophils/100 WBC (Bld) 72.9 % Normal 36.0-75.0 [facility] Comment on above: Order Comment: Order Added by Discern Expert. Performed By: #### 2 848352, 2583527, [id number] ####[address] [place] [address] Neutrophils/Leukocyte s Auto (Bld) [Pure # fraction] 3.8 E9/L Normal 2.0-7.5 [facility] Comment on above: Order Comment: Order Added by Discern Expert. Performed By: #### 2 290830, 3141013, [id number] ####[address] [address] CBC AUTO DIFFon 12-11-2022 BASO # 0.0 103/ul Normal 0.0-0.1 [facility] Comment on above: Performed By: #### C BC #### [facility] [address] [place] [address] Dr. Rashmi Nolan Basophils/100 WBC (Bld) 0.4 % Normal 0.2-2.0 [facility] Comment on above: Performed By: #### C BC #### [facility] [address] [place] [address] Dr. Rashmi Nolan EO # 0.2 103/ul Normal 0.0-0.7 [facility] Comment on above: Performed By: #### C BC #### [facility] [address] [address] [address] Rashmi Nolan Eosinophils/100 WBC (Bld) 5.2 % Normal 0.9-7.0 [facility] Comment on above: Performed By: #### C BC #### [facility] [address] [place] [address] Dr. Rashmi Nolan Erythrocyte distribution width (RBC) [Ratio] 14.6 % Normal 11.0-15.0 [facility] Comment on above: Performed By: #### C BC #### [facility] [address] [place] [address] Dr. Rashmi Nolan Hematocrit (Bld) [Volume fraction] 23.7 % Critically low 42.0-54.0 [facility] Comment on above: Performed By: #### C BC #### [facility] [address] [place] [address] Dr. Rashmi Nolan Hemoglobin (Bld) [Mass/Vol] 7.8 g/dL Critically low 14.0-18.0 [facility] Comment on above: Performed By: #### C BC #### [facility] [address] [place] [address] Dr. Rashmi Nolan IG # 0.01 10e3/ul Normal 0.00-0.03 [facility] Comment on above: Performed By: #### C BC #### [facility] [address] [place] [address] Dr. Rashmi Nolan IG % 0.2 % Normal 0.0-0.5 [facility] Comment on above: Performed By: #### C BC #### [facility] [address] [place] [address] Dr. Rashmi Nolan LYMPH # 0.9 103/ul Critically low 1.2-3.8 [facility] Comment on above: Performed By: #### C BC #### [facility] [address] [place] [address] Dr. Rashmi Nolan Lymphocytes/100 WBC (Bld) 19.6 % Critically low 20.5-60.0 [facility] Comment on above: Performed By: #### C BC #### [facility] [address] [place] [address] Dr. Rashmi Nolan MANUAL DIFF REQ NO Normal [facility] Comment on above: Performed By: #### C BC #### [facility] [address] [place] [address] Dr. Rashmi Nolan MCH (RBC) [Entitic mass] 34.7 pg Critically high 25.9-34.0 [facility] Comment on above: Performed By: #### C BC #### [facility] [address] [place] [address] Dr. Rashmi Nolan MCHC (RBC) [Mass/Vol] 32.9 g/dL Normal 29.9-35.2 [facility] Comment on above: Performed By: #### C BC #### [facility] [address] [place] [address] Dr. Rashmi Nolan MCV (RBC) [Entitic vol] 105.3 fL Critically high 80.0-94.0 [facility] Comment on above: Performed By: #### C BC #### [facility] [address] [place] [address] Dr. Rashmi Nolan MONO # 0.3 103/ul Normal 0.3-0.8 [facility] Comment on above: Performed By: #### C BC #### [facility] [address] [place] [address] Dr. Rashmi Nolan Monocytes/100 WBC (Bld) 7.2 % Normal 1.7-12.0 [facility] Comment on above: Performed By: #### C BC #### [facility] [address] [place] [address] Dr. Rashmi Nolan NEUT # 3.0 103/ul Normal 1.4-6.5 [facility] Comment on above: Performed By: #### C BC #### [facility] [address] [place] [address] Dr. Rashmi Nolan Neutrophils/100 WBC (Bld) 67.4 % Normal 43.0-75.0 [facility] Comment on above: Performed By: #### C BC #### [facility] [address] [place] [address] Dr. Rashmi Nolan Platelet mean volume (Bld) [Entitic vol] 9.8 fL Normal 9.5-13.5 [facility] Comment on above: Performed By: #### C BC #### [facility] [address] [place] [address] Dr. Rashmi Nolan PLT 156 103/ul Normal 150-450 [facility] Comment on above: Performed By: #### C BC #### [facility] [id number] Rashmi Nolan RBC 2.25 106/ul Critically low 4.70-6.10 [facility] Comment on above: Performed By: #### C BC #### [facility] [address] Rashmi Nolan WBC 4.5 103/ul Normal 4.0-11.0 [facility] Comment on above: Performed By: #### C BC #### [facility] [address] [address] [address] Rashmi Nolan CBC w/ Auto Diffon 3 Erythrocyte distribution width (RBC) [Ratio] 14.9 % High 10.9-14.2 [facility] Comment on above: Performed By: #### 2 022127, 9052897, [id number] ####[facility] [address] [place] [address] Hematocrit (Bld) [Volume fraction] 24.1 % Low 37.7-49.0 [facility] Comment on above: Performed By: #### 2 907315, 6039305, [id number] ####[facility] [address] [place] [address] Hemoglobin (Bld) [Mass/Vol] 8.1 g/dL Low 13.5-17.5 [facility] Comment on above: Performed By: #### 2 013993, 9970728, [id number] ####[facility] [address] [place] [address] MCH (RBC) [Entitic mass] 34.0 pg Normal 27.0-34.0 [facility] Comment on above: Performed By: #### 2 134613, 1987349, [id number] ####[facility] [address] [place] [address] MCHC (RBC) [Mass/Vol] 33.6 g/dL Normal 31.4-36.0 [facility] Comment on above: Performed By: #### 2 573842, 8320209, 63281437 ####[id number] MCV (RBC) [Entitic vol] 101.1 fL High 80.0-100.0 [facility] Comment on above: Performed By: #### 2 968709, 1625349, 28899215 ####[address] Platelet mean volume (Bld) [Entitic vol] 8.9 fL Normal 6.4-10.8 [facility] Comment on above: Performed By: #### 2 837723, 6543718, 97076067 ####[address] [address] Platelets (Bld) [#/Vol] 177.0 E9/L Normal 150.0-500.0 [facility] Comment on above: Performed By: #### 2 849314, 8615147, [id number] ####[address] RBC (Bld) [#/Vol] 2.4 E12/L Low 4.3-5.9 [facility] Comment on above: Performed By: #### 2 615490, 7155108, 79046485 ####[address] [address] WBC corrected for nucl RBC Auto (Bld) [#/Vol] 5.2 E9/L Normal 4.0-11.0 [facility] Comment on above: Performed By: #### 2 909746, 9324669, [id number] ####[address] [address] CHEMISTRYOrdered By: SYSTEM SYSTEM on 12-11-2022 Iron binding capacity [Mass/Vol] 417 ug/dL High 250 - 400 mcg/dL [facility] Remisol Transferrin [Mass/Vol] 298 mg/dL Normal 200 - 370 mg/dL [facility] Remisol Consent Formson 12-11-2022 Consent Forms [id number] Normal [facility] Family Medicine Office/Clini c Noteon 12-11-2022 Family Medicine Office/Clinic Note HPI Staff Noemi is an 87 year old male who presents to establish care. 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 Martinez, Dr. Royal Jordan-Cardiology [facility] Last provider: Dr. [...] he turned 79 years old. [place] [facility] [place] records for any colonoscopy in 2014 or more recent. Review of Systems PHQ Score Initial Depression Screen Score: 0 Physical Exam Vitals & Measurements HR: 60(Peripheral) BP: 128/62 SpO2: 98% HT: 70 in HT: 178.5 cm WT: 99 kg WT: 217.8 lb BMI: 31.07 Assessment/Plan 1. Black tarry stools (K92.1: Melena) Ordered: CBC w/ Auto Diff Fibrinogen Lvl [facility] Ambulatory Referral Lab Specimen Collect [id number] PT & PTT Stool Occult Blood Stool Occult Blood TIBC Calculated 2. Family hx of colon cancer (Z80.0: Family history of malignant neoplasm of digestive organs) Ordered: [facility] Ambulatory Referral Lab Specimen Collect [id number] Stool Occult Blood 3. Colon cancer screening (Z12.11: Encounter for screening for malignant neoplasm of colon) Ordered: [facility] Ambulatory Referral Lab Specimen Collect [id number] Stool Occult Blood 4. BMI 31.0-31.9,adult (Z68.31: Body mass index [BMI] 31.0-31.9, adult) Ordered: [facility] Internal Ambulatory Referral Stool Occult Blood Follow-up [...] Recorded influenza, whole 05/29/2005 Recorded Normal [facility] Comment on above: Result Comment: Elec tronically [...] seeing specialists: Dr. Martinez, Dr. Royal Jordan-Cardiology [facility], [facility] Last provider: Dr. [...] he turned 79 years old. [place] [facility] [place] records for any colonoscopy in [...] he had colonoscopy 6-7 years ago [place] [facility]. will call to access those records. pt has significant family history of colon cancer. will send stool to lab, will draw CBC and clotting studies in office today. will call patient tomorrow to advise if he should stop taking warfarin depending on lab results. all questions answered. RTC as needed Ordered: CBC w/ Auto Diff Fibrinogen Lvl [facility] Internal Ambulatory Referral PT & PTT Stool Occult Blood Stool Occult Blood TIBC Calculated 2. Family hx of colon cancer (Z80.0: Family history of malignant neoplasm of digestive organs) referral to Dr. Jiang placed for scope Ordered: [facility] Internal Ambulatory Referral Stool Occult Blood 3. Colon cancer screening (Z12.11: Encounter for screening for malignant neoplasm of colon) see above Ordered: [facility] Internal Ambulatory Referral Stool Occult Blood 4. BMI 31.0-31.9,adult (Z68.31: Body mass index [BMI] 31.0-31.9, adult) BMI education complete Ordered: [facility] Internal Ambulatory Referral Stool Occult Blood Follow-up [...] (more content not included)... Normal [facility] Comment on above: Result Comment: Elec [...] (12/11/22 12:14 PM) Invalid Interpretation Code Negative [facility] Man Sero PROF 14(COMP METB)on 023 Albumin [Mass/Vol] 3.8 g/dL Normal 3.4-5.0 [facility] Comment on above: Performed By: #### B MP #### [facility] [address] [address] [address] Rashmi Nolan Albumin/Globulin [Mass ratio] 1.1 {ratio} Normal [facility] Comment on above: Performed By: #### B MP #### [facility] [address] [place] [address] Dr. Rashmi Nolan ALP [Catalytic activity/Vol] 178 U/L Critically high 46-116 [facility] Comment on above: Performed By: #### B MP #### [facility] [address] [address] [address] Rashmi Nolan ALT [Catalytic activity/Vol] 17 U/L Normal 16-63 [facility] Comment on above: Performed By: #### B MP #### [facility] [address] [address] [address] Rashmi Nolan Anion gap [Moles/Vol] 15.6 mmol/L Normal [facility] Comment on above: Performed By: #### B MP #### [facility] [address] [address] [address] Rashmi Nolan AST [Catalytic activity/Vol] 12 U/L Critically low 15-37 [facility] Comment on above: Performed By: #### B MP #### [facility] [address] [address] [address] Rashmi Nolan Bilirubin [Mass/Vol] 0.2 mg/dL Normal 0.2-1.0 [facility] Comment on above: Performed By: #### B MP #### [facility] [address] [place] [address] Dr. Rashmi Nolan Calcium [Mass/Vol] 9.5 mg/dL Normal 8.5-10.1 [facility] Comment on above: Performed By: #### B MP #### [facility] [address] [address] [address] Rashmi Nolan Chloride [Moles/Vol] 109 mmol/L Critically high 98-107 [facility] Comment on above: Performed By: #### B MP #### [facility] [address] [address] [address] Rashmi Nolan CO2 [Moles/Vol] 22.5 mmol/L Normal 21.0-32.0 [facility] Comment on above: Performed By: #### B MP #### [facility] [address] [address] [address] Rashmi Nolan Creatinine [Mass/Vol] 2.11 mg/dL Critically high 0.70-1.30 [facility] Comment on above: Performed By: #### B MP #### [facility] [address] [address] [address] Rashmi Nolan EGFR-AF MACANESE 36 mL/min/1.73m2 Critically low >=60 [facility] Comment on above: Performed By: #### B MP #### [facility] [address] [place] [address] Dr. Rashmi Nolan EGFR-NON AF MACANESE 30 mL/min/1.73m2 Critically low >=60 [facility] Comment on above: Performed By: #### B MP #### [facility] [address] [address] [address] Rashmi Nolan Globulin (S) [Mass/Vol] 3.4 g/dL Normal [facility] Comment on above: Performed By: #### B MP #### [facility] [address] [address] [address] Rashmi Nolan Glucose [Mass/Vol] 115 mg/dL Critically high 74-106 [facility] Comment on above: Performed By: #### B MP #### [facility] [address] [place] [address] Dr. Rashmi Nolan Potassium [Moles/Vol] 5.1 mmol/L Normal 3.5-5.1 [facility] Comment on above: Performed By: #### B MP #### [facility] [address] [address] [address] Rashmi Nolan Protein [Mass/Vol] 7.2 g/dL Normal 6.4-8.2 [facility] Comment on above: Performed By: #### B MP #### [facility] [address] [address] [address] Rashmi Nolan Sodium [Moles/Vol] 142 mmol/L Normal 136-145 [facility] Comment on above: Performed By: #### B MP #### [facility] [address] [address] [address] Rashmi Nolan Urea nitrogen [Mass/Vol] 57.0 mg/dL Critically high 7.0-18.0 [facility] Comment on above: Performed By: #### B MP #### [facility] [address] [address] [address] Rashmi Nolan Urea nitrogen/Creatinine [Mass ratio] 27.0 mg/mg Normal [facility] Comment on above: Performed By: #### B MP #### [facility] [address] [address] [address] Rashmi Nolan PROTIMEon 12-11-2022 INR Coag (PPP) [Relative time] 1.95 {INR} Normal [facility] Comment on above: Performed By: #### P T, PTT #### [facility] [address] [place] [address] Dr. Rashmi Nolan INR GUIDELINES SEE BELOW Normal [facility] Comment on above: Result Comment: ENOC RED INR: 2.0 - 3.0 CONDITIONS NOT LISTED BELOW 2.5 - 3.5 FOR PROSTHETIC HEART VALVE REPLACEMENT 2.5 - 3.5 RECURRENT THROMBOSIS Performed By: #### P T, PTT #### [facility] [address] [place] [address] Dr. Rashmi Nolan PT Coag (PPP) [Time] 19.9 s Critically high 9.0-11.6 [facility] Comment on above: Performed By: #### P T, PTT #### [facility] [address] [place], [place] [address] Dr. Rashmi Nolan PTTon 12-11-2022 aPTT Coag (Bld) [Time] 30.3 s Normal 22.3-36.2 [facility] Comment on above: Performed By: #### P T, PTT #### [facility] [address] [place], [place] [address] Dr. Rashmi Nolan Stl Oclt Bldon 12-11-2022 Occult Bld Stl Positive Abnormal Negative [facility] Comment on above: Performed By: #### 2 [id number] ####[facility] [address] [place] [address] TIBC Calculatedon 12-11-2022 Iron binding capacity [Mass/Vol] 417 microgram/dL High 250-400 [facility] Comment on above: Performed By: #### 2 058824, [id number], [id number] ####[facility] [address] [place] [address] Transferrin [Mass/Vol] 298 mg/dL Normal 200-370 [facility] Comment on above: Performed By: #### 2 292979, 6575395, [id number] ####[facility] [address] [place] [address] TYPE AND SCREENon 12-11-2022 TYPE AND SCREEN Negative Normal [facility] Comment on above: Performed By: #### C BC #### [facility] [address] [place], [place] [address] Dr. Rashmi Nolan XR CHEST 1 Von [...] Normal [facility] Inpatient Patient Summaryon 12-10-2022 Inpatient Patient Summary [id number] [place] [address] Patient Discharge Instructions Name: RY LERNER : 1935 Patient Address: [address] [place] [address] Primary Care Provider: Name: Ezequiel CHAMBERS, John Rodríguez After you are discharged if you find you have any questions, please, call [phone] ext [phone] to speak to a nurse. 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 If you or anyone you know is experiencing suicidal thoughts, mental health, alcohol and/or drug addiction problems; contact the [facility] 18/02 Crisis Hotline -text 4HPHB to 014736. If you received any narcotics, sedation, or [...] business decisions or sign any legal documents [facility] would like to thank you for allowing us to assist you with your healthcare needs. The following includes patient education materials and information regarding your injury/illness. RY LERNER has been given the following list of follow-up instructions, prescriptions, and patient education materials: Follow-up Instructions With: Address: When: Ward Martinez [address] [place] [address], [address] [place] [address] Business (1) 12/18/2022 1:30 PM [...] 3. DO NOT lift heavy objects or molecular pathologist forcefully with your hand 4. Change your [...] or concerns, please call the office at [phone] 7. Follow up as scheduled Viruses or [...] and Prevention Septe (more content not included)... [facility] MAGR Preoperative Recordon 0 12-10-2022 MAGR Preoperative Record MAGR Pre-Op Record Summary Primary Physician: Ward Martinez DO Finalized Date/Time: 12/10/22 15:29:41 Pt. Name: YANN RYDENIA Barton./Sex: 1935 MALE Med Rec #: [id number] Physician: Ward Martinez DO Financial #: [id number] Pt. Type: D Room/Bed: / Admit/Disch: 12/10/22 [...] Signed By: Maile Palmer RN 12/10/22 15:29 [facility] Patient Handouton 12-10-[address] 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 Keep your hand elevated above your elbow for the first 24 hours after surgery 2. Wiggle your fingers frequently while awake 3. DO NOT lift heavy objects or molecular pathologist forcefully with your hand 4. Change your [...] or concerns, please call the office at [phone] 7. Follow up as scheduled Normal [facility] Historical Records Officeon 11-14-2022 Historical Records Office [phone] [id number] #1.00CD:127 Normal [facility] 36on 11-13-2022 36 Potassium was high, renal function is stable. Can stop taking potassium supplement and repeat BMP in one week. Normal [facility] Physician Referralon 023 Physician Referral [id number]#1.00CD:127 Normal [facility] Physician Referral [id number] #1.00CD:127 Normal [facility] MAGNESIUMon 11-06-2022 Magnesium [Mass/Vol] 2.2 mg/dL Normal 1.8-2.4 [facility] Comment on above: Performed By: #### B MP, MG #### [facility] [address] [address] [address] Rashmi Nolan Office Visiton 11-06-2022 Follow-up visit [id number] Ry Lerner 1935 M Date Provider Department Center 11/06/2022 [id number] VILLARREAL [facility] Family History Family history unknown: Yes Level of Service:03213 ID OFFICE/OUTPATIENT ESTABLISHED MOD MDM 30-39 MIN Reason for Visit and Comments: Atrial Fibrillation [80] Hypertension [285366] Normal [facility] PROF CHEM 8 (BAS METB)on Anion gap [Moles/Vol] 15.0 mmol/L Normal [facility] Comment on above: Performed By: #### B MP, MG #### [facility] [address] [place] [address] Dr. Rashmi Nolan Calcium [Mass/Vol] 10.0 mg/dL Normal 8.5-10.1 [facility] Comment on above: Performed By: #### B MP, MG #### [facility] [address] [address] [address] Rashmi Nolan Chloride [Moles/Vol] 108 mmol/L Critically high 98-107 [facility] Comment on above: Performed By: #### B MP, MG #### [facility] [address] [place] [address] Dr. Rashmi Nolan CO2 [Moles/Vol] 25.4 mmol/L Normal 21.0-32.0 [facility] Comment on above: Performed By: #### B MP, MG #### [facility] [address] [place] [address] Dr. Rashmi Nolan Creatinine [Mass/Vol] 1.98 mg/dL Critically high 0.70-1.30 [facility] Comment on above: Performed By: #### B MP, MG #### [facility] [address] [place] [address] Dr. Rashmi Nolan EGFR-AF MACANESE 39 mL/min/1.73m2 Critically low >=60 [facility] Comment on above: Performed By: #### B MP, MG #### [facility] [address] [place] [address] Dr. Rashmi Nolan EGFR-NON AF MACANESE 32 mL/min/1.73m2 Critically low >=60 [facility] Comment on above: Performed By: #### B MP, MG #### [facility] [address] [place] [address] Dr. Rashmi Nolan Glucose [Mass/Vol] 99 mg/dL Normal 74-106 [facility] Comment on above: Performed By: #### B MP, MG #### [facility] [address] [place], [place] [id number] Dr. Rashmi Nolan Potassium [Moles/Vol] 5.4 mmol/L Critically high 3.5-5.1 [facility] Comment on above: Performed By: #### B MP, MG #### [facility] [address] [place] [address] Dr. Rashmi Nolan Sodium [Moles/Vol] 143 mmol/L Normal 136-145 [facility] Comment on above: Performed By: #### B MP, MG #### [facility] [address] [place] [address] Dr. Rashmi Nolan Urea nitrogen [Mass/Vol] 52.0 mg/dL Critically high 7.0-18.0 [facility] Comment on above: Performed By: #### B MP, MG #### [facility] [address] [place] [address] Dr. Rashmi Nolan Urea nitrogen/Creatinine [Mass ratio] 26.3 mg/mg Normal [facility] Comment on above: Performed By: #### B MP, MG #### [facility] [address] [place] [address] Dr. Rashmi Nolan EMG Electromyographyon 10-16 EMG Electromyography [id number] #1.00CD:127 Normal [facility] EMG Electromyography [id number] #1.00CD:127 Normal [facility] Lab Reportson 10-16-2022 Lab Reports [id number]# 1.00CD:127 Normal [facility] VIT B12 AND FOLATEon 023 Cobalamin (Vitamin B12) [Mass/Vol] 514.0 pg/mL Normal 193.0-986.0 [facility] Comment on above: Performed By: #### B MP #### [facility] [address] [place] [address] Dr. Rashmi Nolan FOLATE 10.00 ng/mL Normal 8.60-58.90 [facility] Comment on above: Performed By: #### B MP #### [facility] [address] [address] [address] Rashmi Nolan CBC AUTO DIFFon 08-16-2022 BASO # 0.0 103/ul Normal 0.0-0.1 [facility] Comment on above: Performed By: #### B MP #### [facility] [address] [address] [address] Rashmi Nolan Basophils/100 WBC (Bld) 0.8 % Normal 0.2-2.0 [facility] Comment on above: Performed By: #### B MP #### [facility] [address] [address] [address] Rashmi Nolan EO # 0.3 103/ul Normal 0.0-0.7 [facility] Comment on above: Performed By: #### B MP #### [facility] [address] [place] [address] Dr. Rashmi Nolan Eosinophils/100 WBC (Bld) 7.8 % Critically high 0.9-7.0 [facility] Comment on above: Performed By: #### B MP #### [facility] [address] [place] [address] Dr. aRshmi Nolan Erythrocyte distribution width (RBC) [Ratio] 13.2 % Normal 11.0-15.0 [facility] Comment on above: Performed By: #### B MP #### [facility] [address] [place] [address] Dr. Rashmi Nolan Hematocrit (Bld) [Volume fraction] 33.2 % Critically low 42.0-54.0 [facility] Comment on above: Performed By: #### B MP #### [facility] [address] [place] [address] Dr. Rashmi Nolan Hemoglobin (Bld) [Mass/Vol] 10.8 g/dL Critically low 14.0-18.0 [facility] Comment on above: Performed By: #### B MP #### [facility] [address] [place] [address] Dr. Rahsmi Nolan IG # 0.01 10e3/ul Normal 0.00-0.03 [facility] Comment on above: Performed By: #### B MP #### [facility] [address] [address] [address] Rashmi Nolan IG % 0.3 % Normal 0.0-0.5 [facility] Comment on above: Performed By: #### B MP #### [facility] [address] [address] [address] Rashmi Nolan LYMPH # 1.0 103/ul Critically low 1.2-3.8 [facility] Comment on above: Performed By: #### B MP #### [facility] [address] [place] [address] Dr. Rashmi Nolan Lymphocytes/100 WBC (Bld) 24.7 % Normal 20.5-60.0 [facility] Comment on above: Performed By: #### B MP #### [facility] [address] [place] [address] Dr. Rashmi Nolan MANUAL DIFF REQ NO Normal [facility] Comment on above: Performed By: #### B MP #### [facility] [address] [place] [address] Dr. Rashmi Nolan MCH (RBC) [Entitic mass] 33.0 pg Normal 25.9-34.0 [facility] Comment on above: Performed By: #### B MP #### [facility] [address] [place] [address] Dr. Rashmi Nolan MCHC (RBC) [Mass/Vol] 32.5 g/dL Normal 29.9-35.2 [facility] Comment on above: Performed By: #### B MP #### [facility] [address] [place] [address] Dr. Rashmi Nolan MCV (RBC) [Entitic vol] 101.5 fL Critically high 80.0-94.0 [facility] Comment on above: Performed By: #### B MP #### [facility] [address] [place] [address] Dr. Rashmi Nolan MONO # 0.4 103/ul Normal 0.3-0.8 [facility] Comment on above: Performed By: #### B MP #### [facility] [address] [address] [address] Rashmi Nolan Monocytes/100 WBC (Bld) 10.7 % Normal 1.7-12.0 [facility] Comment on above: Performed By: #### B MP #### [facility] [address] [address] [address] Rashmi Nolan NEUT # 2.1 103/ul Normal 1.4-6.5 [facility] Comment on above: Performed By: #### B MP #### [facility] [address] [address] [address] Rashmi Nolan Neutrophils/100 WBC (Bld) 55.7 % Normal 43.0-75.0 [facility] Comment on above: Performed By: #### B MP #### [facility] [address] [place] [address] Dr. Rashmi Nolan Platelet mean volume (Bld) [Entitic vol] 10.5 fL Normal 9.5-13.5 [facility] Comment on above: Performed By: #### B MP #### [facility] [address] [address] [address] Rashmi Nolan PLT 160 103/ul Normal 150-450 [facility] Comment on above: Performed By: #### B MP #### [facility] [address] [address] [address] Rashmi Nolan RBC 3.27 106/ul Critically low 4.70-6.10 [facility] Comment on above: Performed By: #### B MP #### [facility] [address] [address] [address] Rashmi Nolan WBC 3.8 103/ul Critically low 4.0-11.0 [facility] Comment on above: Performed By: #### B MP #### [facility] [address] [place] [address] Dr. Rashmi Nolan LIPID PROFILEon 08-16-2022 CHOL-HDL RATIO NORM SEE BELOW Normal [facility] Comment on above: Result Comment: 3.3 - 4.4 LOW RISK 4.4 - 7.1 AVERAGE RISK 7.1 - 11.0 MODERATE RISK >11.0 HIGH RISK Performed By: #### B MP #### [facility] [address] [address] [address] Rashmi Nolan Cholesterol [Mass/Vol] 166 mg/dL Normal <=200 [facility] Comment on above: Performed By: #### B MP #### [facility] [address] [address] [address] Rashmi Nolan Cholesterol in HDL [Mass/Vol] 42 mg/dL Normal 40-60 [facility] Comment on above: Performed By: #### B MP #### [facility] [address] [address] [address] Rashmi Nolan Cholesterol in LDL [Mass/Vol] 110.4 mg/dL Normal [facility] Comment on above: Performed By: #### B MP #### [facility] [address] [address] [address] Rashmi Nolan Cholesterol.total/Cho lesterol in HDL [Mass ratio] 4.0 {ratio} Normal [facility] Comment on above: Performed By: #### B MP #### [facility] [address] [address] [address] Rashmi Nolan HDL NORMAL > or = 60 mg/dl - LOW CARDIOVASCULAR RISK <40 mg/dl - HIGH CARDIOVASCULAR RISK Normal [facility] Comment on above: Performed By: #### B MP #### [facility] [address] [address] [address] Rashmi Nolan LDL CALC NORMAL SEE BELOW Normal [facility] Comment on above: Result Comment: <100 mg/dl OPTIMAL 100 - 129 mg/dl NEAR OR ABOVE OPTIMAL 130 - 159 mg/dl BORDERLINE HIGH 160 - 189 mg/dl HIGH >190 mg/dl VERY HIGH Performed By: #### B MP #### [facility] [address] [address] [address] Rashmi Nolan Triglyceride [Mass/Vol] 68 mg/dL Normal <=150 [facility] Comment on above: Performed By: #### B MP #### [facility] [address] [address] [address] Rashmi Nolan VLDL CALC 13.6 mg/dL Normal [facility] Comment on above: Performed By: #### B MP #### [facility] [address] [address] [address] Rashmi Nolan PROF 14(COMP METB)on 023 Albumin [Mass/Vol] 3.9 g/dL Normal 3.4-5.0 [facility] Comment on above: Performed By: #### B MP #### [facility] [address] [address] [address] Rashmi Nolan Albumin/Globulin [Mass ratio] 1.1 {ratio} Normal [facility] Comment on above: Performed By: #### B MP #### [facility] [address] [place] [address] Dr. Rashmi Nolan ALP [Catalytic activity/Vol] 190 U/L Critically high 46-116 [facility] Comment on above: Performed By: #### B MP #### [facility] [address] [address] [address] Rashmi Nolan ALT [Catalytic activity/Vol] 15 U/L Critically low 16-63 [facility] Comment on above: Performed By: #### B MP #### [facility] [address] [place] [address] Dr. Rashmi Nolan Anion gap [Moles/Vol] 15.2 mmol/L Normal [facility] Comment on above: Performed By: #### B MP #### [facility] [address] [address] [address] Rashmi Nolan AST [Catalytic activity/Vol] 17 U/L Normal 15-37 [facility] Comment on above: Performed By: #### B MP #### [facility] [address] [place] [address] Dr. Rashmi Nolan Bilirubin [Mass/Vol] 0.4 mg/dL Normal 0.2-1.0 [facility] Comment on above: Performed By: #### B MP #### [facility] [address] [place] [address] Dr. Rashmi Nolan Calcium [Mass/Vol] 10.0 mg/dL Normal 8.5-10.1 [facility] Comment on above: Performed By: #### B MP #### [facility] [address] [address] [address] Rashmi Nolan Chloride [Moles/Vol] 108 mmol/L Critically high 98-107 [facility] Comment on above: Performed By: #### B MP #### [facility] [address] [address] [address] Rashmi Nolan CO2 [Moles/Vol] 25.8 mmol/L Normal 21.0-32.0 [facility] Comment on above: Performed By: #### B MP #### [facility] [address] [address] [address] Rashmi Nolan Creatinine [Mass/Vol] 1.78 mg/dL Critically high 0.70-1.30 [facility] Comment on above: Performed By: #### B MP #### [facility] [address] [address] [address] Rashmi Nolan EGFR-AF MACANESE 44 mL/min/1.73m2 Critically low >=60 [facility] Comment on above: Performed By: #### B MP #### [facility] [address] [address] [address] Rashmi Nolan EGFR-NON AF MACANESE 36 mL/min/1.73m2 Critically low >=60 [facility] Comment on above: Performed By: #### B MP #### [facility] [address] [address] [address] Rashmi Nolan Globulin (S) [Mass/Vol] 3.7 g/dL Normal [facility] Comment on above: Performed By: #### B MP #### [facility] [address] [address] [address] Rashmi Nolan Glucose [Mass/Vol] 100 mg/dL Normal 74-106 [facility] Comment on above: Performed By: #### B MP #### [facility] [address] [address] [address] Rashmi Nolan Potassium [Moles/Vol] 5.0 mmol/L Normal 3.5-5.1 [facility] Comment on above: Performed By: #### B MP #### [facility] [address] [address] [address] Rashmi Nolan Protein [Mass/Vol] 7.6 g/dL Normal 6.4-8.2 [facility] Comment on above: Performed By: #### B MP #### [facility] [address] [address] [address] Rashmi Nolan Sodium [Moles/Vol] 144 mmol/L Normal 136-145 [facility] Comment on above: Performed By: #### B MP #### [facility] [address] [address] [address] Rashmi Nolan Urea nitrogen [Mass/Vol] 52.0 mg/dL Critically high 7.0-18.0 [facility] Comment on above: Performed By: #### B MP #### [facility] [address] [address] [address] Rashmi Nolan Urea nitrogen/Creatinine [Mass ratio] 29.2 mg/mg Normal [facility] Comment on above: Performed By: #### B MP #### [facility] [address] [address] [address] Rashmi Nolan Office Visiton 07-24-2022 Follow-up visit [id number] Ry Lerner 1935 M Date Provider Department Center 07/24/2022 ROYAL ENRIQUE [facility] No family history on file Level of Service:64734 ID OFFICE/OUTPATIENT ESTABLISHED LOW MDM 20-29 MIN Reason for Visit and Comments: Chest Pain [761336] Normal [facility] PROF CHEM 8 (BAS METB)on Anion gap [Moles/Vol] 13.3 mmol/L Normal [facility] Comment on above: Performed By: #### C BC #### [facility] [address] [address] [address] Rashmi Nolan Calcium [Mass/Vol] 10.1 mg/dL Normal 8.5-10.1 [facility] Comment on above: Performed By: #### C BC #### [facility] [address] [address] [address] Rashmi Nolan Chloride [Moles/Vol] 104 mmol/L Normal 98-107 [facility] Comment on above: Performed By: #### C BC #### [facility] [address] [address] [address] Rashmi Nolan CO2 [Moles/Vol] 28.7 mmol/L Normal 21.0-32.0 [facility] Comment on above: Performed By: #### C BC #### [facility] [address] [address] [address] Rashmi Nolan Creatinine [Mass/Vol] 1.87 mg/dL Critically high 0.70-1.30 [facility] Comment on above: Performed By: #### C BC #### [facility] [address] [address] [address] Rsahmi Nolan EGFR-AF MACANESE 42 mL/min/1.73m2 Critically low >=60 [facility] Comment on above: Performed By: #### C BC #### [facility] [address] [address] [address] Rashmi Nolan EGFR-NON AF MACANESE 34 mL/min/1.73m2 Critically low >=60 [facility] Comment on above: Performed By: #### C BC #### [facility] [address] [address] [address] Rashmi Nolan Glucose [Mass/Vol] 101 mg/dL Normal 74-106 [facility] Comment on above: Performed By: #### C BC #### [facility] [address] [address] [address] Rashmi Nolan Potassium [Moles/Vol] 5.0 mmol/L Normal 3.5-5.1 [facility] Comment on above: Performed By: #### C BC #### [facility] [address] [address] [address] Rashmi Nolan Sodium [Moles/Vol] 141 mmol/L Normal 136-145 [facility] Comment on above: Performed By: #### C BC #### [facility] [address] [address] [address] Rashmi Nolan Urea nitrogen [Mass/Vol] 41.0 mg/dL Critically high 7.0-18.0 [facility] Comment on above: Performed By: #### C BC #### [facility] [address] [place] [address] Dr. Rashmi Nolan Urea nitrogen/Creatinine [Mass ratio] 21.9 mg/mg Normal [facility] Comment on above: Performed By: #### C BC #### [facility] [address] [place] [address] Dr. Rashmi Nolan COVID/FLU RT-PCRon SARS-CoV-2 (COVID-19) RNA ETELVINA+probe Ql (Unsp spec) Positive Novadiol Other COVID/FLU RT-PCR Negative [facility] Otto Clave Other BNPon 02-15-2022 Natriuretic peptide B (Bld) [Mass/Vol] 1653.0 pg/mL Normal <=1,800.0 [facility] Comment on above: Performed By: #### C BC #### [facility] [address] [place] [address] Dr. Rashmi Nolan PROF CHEM 8 (BAS METB)on Anion gap [Moles/Vol] 15.8 mmol/L Normal [facility] Comment on above: Performed By: #### C BC #### [facility] [address] [place] [address] Dr. Rashmi Nolan Calcium [Mass/Vol] 9.6 mg/dL Normal 8.5-10.1 [facility] Comment on above: Performed By: #### C BC #### [facility] [address] [place] [address] Dr. Rashmi Nolan Chloride [Moles/Vol] 108 mmol/L Critically high 98-107 [facility] Comment on above: Performed By: #### C BC #### [facility] [address] [place] [address] Dr. Rashmi Nolan CO2 [Moles/Vol] 24.2 mmol/L Normal 21.0-32.0 [facility] Comment on above: Performed By: #### C BC #### [facility] [address] [address] [address] Rashmi Nolan Creatinine [Mass/Vol] 1.87 mg/dL Critically high 0.70-1.30 [facility] Comment on above: Performed By: #### C BC #### [facility] [address] [address] [address] Rashmi Nolan EGFR-AF MACANESE 42 mL/min/1.73m2 Critically low >=60 [facility] Comment on above: Performed By: #### C BC #### [facility] [address] [address] [address] Rashmi Nolan EGFR-NON AF MACANESE 34 mL/min/1.73m2 Critically low >=60 [facility] Comment on above: Performed By: #### C BC #### [facility] [address] [address] [address] Rashmi Nolan Glucose [Mass/Vol] 107 mg/dL Critically high 74-106 [facility] Comment on above: Performed By: #### C BC #### [facility] [address] [address] [address] Rashmi Nolan Potassium [Moles/Vol] 5.0 mmol/L Normal 3.5-5.1 [facility] Comment on above: Performed By: #### C BC #### [facility] [address] [address] [address] Rashmi Nolan Sodium [Moles/Vol] 143 mmol/L Normal 136-145 [facility] Comment on above: Performed By: #### C BC #### [facility] [address] [address] [address] Rashmi Nolan Urea nitrogen [Mass/Vol] 28.0 mg/dL Critically high 7.0-18.0 [facility] Comment on above: Performed By: #### C BC #### [facility] [address] [address] [address] Rashmi Nolan Urea nitrogen/Creatinine [Mass ratio] 15.0 mg/mg Normal [facility] Comment on above: Performed By: #### C BC #### [facility] [address] [address] [address] Rashmi Barrientos 10-13-2021 aPTT Coag (Bld) [Time] 36.7 s High 25.0-35.0 [facility] Comment on above: Result Comment: ALL RESULTS [...] PURPOSE. Performed By: #### 5 [id number] #### [facility] [address] [place] [address], [facility] BASIC METABOLIC PANELon 09-26 Calcium [Mass/Vol] 9.7 mg/dL Normal 8.6-10.3 [facility] Comment on above: Performed By: #### 0 0071, [id number], 69723, 16508 #### [facility] [address] [place] [address], [facility] Chloride [Moles/Vol] 108 mmol/L High 98-107 [facility] Comment on above: Performed By: #### 0 0071, [id number], 06259, 33721 #### [facility] [address] [place] [address], [facility] CO2 [Moles/Vol] 23 mmol/L Normal 21-31 [facility] Comment on above: Performed By: #### 0 0071, 02031, 74562, 52867 #### [facility] [address] [place] [address], [facility] Creatinine [Mass/Vol] 1.98 mg/dL High 0.70-1.30 [facility] Comment on above: Performed By: #### 0 0071, 97812, 27135, 90349 #### [facility] [address] [place] [address], [facility] eGFR- 39 ml/min/1.73sq m Abnormal >60 [facility] Comment on above: Result Comment: Calc ulation may not be valid for patients over 70 years Performed By: #### 0 0071, 37662, 19297, 64541 #### [facility] [address] [place] [address], [place] eGFR- non- 32 ml/min/1.73sq m Abnormal >60 [facility] Comment on above: Result Comment: Calc ulation may not be valid for patients over 70 years Performed By: #### 0 0071, 99158, 04116, 13123 #### [facility] [address] [place] [address], [place] Glucose [Mass/Vol] 88 mg/dL Normal 70-100 [facility] Comment on above: Performed By: #### 0 0071, 56832, 19914, 32928 #### [facility] [address] [place] [address], [place] Potassium [Moles/Vol] 4.8 mmol/L Normal 3.5-5.1 [facility] Comment on above: Performed By: #### 0 0071, 98911, 21576, 86873 #### [facility] [address] [place] [address], [place] Sodium [Moles/Vol] 138 mmol/L Normal 136-145 [facility] Comment on above: Performed By: #### 0 0071, 04527, 14665, 38260 #### [facility] [address] [place] [address], [place] Urea nitrogen [Mass/Vol] 46 mg/dL High 7-25 [facility] Comment on above: Performed By: #### 0 0071, 59072, 15538, 85019 #### [facility] [address] BNP EDon 10-13-2021 Natriuretic peptide B (Bld) [Mass/Vol] 428 pg/mL High 0-100 [facility] Comment on above: Result Comment: Give n the appropriate clinical setting a BNP result of >100 pg/mL indicates congestive heart failure. Performed By: #### 3 0935 #### [facility] [address] [facility] [place] [address], [facility] CBC W/DIFFon 10-13-2021 ABS IMM GRANS 0.0 10*3/uL Normal 0.0-0.2 The [facility] Comment on above: Performed By: #### 5 0103 #### [facility] [address] [place] [address], [facility] ABS NEUTROPHILS 2.8 10*3/uL Normal 1.6-7.6 The [facility] Comment on above: Performed By: #### 5 0103 #### [facility] [address] [place] [address], [facility] Basophils (Bld) [#/Vol] 0.0 10*3/uL Normal 0.0-0.2 [facility] Comment on above: Performed By: #### 5 0103 #### [facility] [address] [facility] [place] [address], [facility] Basophils/100 WBC (Bld) 0.5 % Normal 0.0-1.0 [facility] Comment on above: Performed By: #### 5 0103 #### [facility] [address] [facility] [place] [address], [facility] Eosinophils (Bld) [#/Vol] 0.3 10*3/uL Normal 0.0-0.5 [facility] Comment on above: Performed By: #### 5 0103 #### [facility] [address] [place] [address], [facility] Eosinophils/100 WBC (Bld) 7.4 % High 0.0-6.0 [facility] Comment on above: Performed By: #### 5 0103 #### [facility] [address] Erythrocyte distribution width (RBC) [Ratio] 13.9 % Normal 11.5-15.0 [facility] Comment on above: Performed By: #### 5 0103 #### [facility] [address] [facility] Hematocrit (Bld) [Volume fraction] 33.5 % Low 39.0-50.0 [facility] Comment on above: Performed By: #### 5 0103 #### [facility] [address] [facility]. [address] Hemoglobin (Bld) [Mass/Vol] 11.4 g/dL Low 13.0-17.0 [facility] Comment on above: Performed By: #### 5 0103 #### [facility] [address] [facility]. [address] IMMATURE GRANS 0.2 % Normal 0.0-1.0 The [facility] Comment on above: Performed By: #### 5 0103 #### [facility] [address] [facility]. [address] Lymphocytes (Bld) [#/Vol] 0.9 10*3/uL Low 1.2-4.0 [facility] Comment on above: Performed By: #### 5 3 #### [facility] [address] Lymphocytes/100 WBC (Bld) 20.1 % Normal 20.0-45.0 [facility] Comment on above: Performed By: #### 5 3 #### [facility] [address] MCH (RBC) [Entitic mass] 33.1 pg High 27.0-33.0 [facility] Comment on above: Performed By: #### 5 0103 #### [facility] [address] [place] [address], [facility] MCHC (RBC) [Mass/Vol] 34.0 g/dL Normal 32.0-35.0 [facility] Comment on above: Performed By: #### 5 3 #### [facility] [address] [facility] [place] [address], [facility] MCV (RBC) [Entitic vol] 97.4 fL Normal 82.0-98.0 [facility] Comment on above: Performed By: #### 3 #### [facility] [address] [place] [address], [facility] Monocytes (Bld) [#/Vol] 0.4 10*3/uL Normal 0.1-1.0 [facility] Comment on above: Performed By: #### 5 3 #### [facility] [address] [facility]. [address] MONOS 8.4 % Normal 5.0-12.0 [facility] Comment on above: Performed By: #### 5 3 #### [facility] [address] [place] [address], [facility] Neutrophils/100 WBC (Bld) 63.4 % Normal 40.0-72.0 [facility] Comment on above: Performed By: #### 5 3 #### [facility] [address] [facility] [place] [address], [facility] Nucleated RBC/100 WBC (Bld) [Ratio] 0 % Normal 0-0 [facility] Comment on above: Performed By: #### 5 3 #### [facility] [address] [place] [address], [facility] PLAT CNT 116 10*3/uL Low 150-400 [facility] Comment on above: Performed By: #### 5 3 #### [facility] [address] [place] [address], [facility] RBC (Bld) [#/Vol] 3.44 10*6/uL Low 4.20-5.70 [facility] Comment on above: Performed By: #### 5 0103 #### [facility] [address] [facility] [address], [facility] WBC (Bld) [#/Vol] 4.43 10*3/uL Normal 4.00-10.60 [facility] Comment on above: Performed By: #### 5 0103 #### [facility] [address] [facility] [place], [place] [address] [place] [address] Cardiovascular Lab Reporton 10-13-2021 Cardiovascular Lab Report [facility] Patient Name: Yann [facility] MR #: [id number] Physician: Royal Gandara MD Department of Service Date: 10/13/2021 Medicine Birthdate: 1935 Division of Room #: [facility] Cardiology Adult Cardiovascular Services [address] [address] Cardiovascular Laboratory Report PACEMAKER IMPLANT PROCEDURE NOTE DATE OF PROCEDURE: 10/13/2021 PERFORMING PHYSICIAN: Dr. Royal Gandara CONSENT: Patient LOCATION: EP Lab PROCEDURE PERFORMED: 1. Implantation of pacemaker ([employer]) 2. Ultrasound guided venous access INDICATIONS: [...] previously recommended a pacemaker, however, presented to [facility] ED with a ventricular rate in the 30s. He was subsequently transferred over to [facility] ED for a pacemaker placement. [...] using modified seldinger technique using a 5 Citizen Of [place] micro-puncture needle on one occasion and 0.35 wire was placed. Local infiltration of 1% Lidocaine was performed, and an incision was created in the left upper chest. Dissection was then performed using cautery down to the fascial plane above the muscle. A small pocket was created for the device. 6 Citizen Of [place] Safesheaths were placed over the wire. An active fixation [employer] pacing lead was then delivered through the 6Fsheath to the right ventricle. After confirmation of lead position on orthogonal views (HANSEN and MOSOTHO) to confirm septal position, the screw was [...] immediate procedural complications were noted. Device info: [employer] Accolade MRI EL Model# L331 Serial# [id number] RV lead: Model# [id number] [id number] (59cms) Serial# [id number] Sensin.4mV Threshold: 0.6V@0.4ms Impedance: 598 Ohms POST [...] Gandara MD Date Trans: 10/13/2021 10:46 A/oscar [id number] cc: Jason Silva M.D. [address] [place] [phone] Normal [facility] FRESH FROZEN PLASMA 1 UNITon 10-13-2021 PRODUCT CODE 1 E2701 Normal [facility] Comment on above: Order Comment: INR: 2.88 ,PTT: 36.7 at the time of order ;Indication: Other pacemaker placement Performed By: #### 8 7001 #### [facility] [address] PRODUCT STATUS 1 RE Normal [facility] Comment on above: Order Comment: INR: 2.88 ,PTT: 36.7 at the time of order ;Indication: Other pacemaker placement Result Comment: Resu lt changed by IF on 10/19/2021 01:00. The previous value was XM. Performed By: #### 8 7001 #### [facility] [address] [place] [address], [facility] UNIT ABO 1 O Normal [facility] Comment on above: Order Comment: INR: 2.88 ,PTT: 36.7 at the time of order ;Indication: Other pacemaker placement Performed By: #### 8 7001 #### [facility] [address] [place] [address], [facility] UNIT ID 1 [id number] Normal [facility] Comment on above: Order Comment: INR: 2.88 ,PTT: 36.7 at the time of order ;Indication: Other pacemaker placement Performed By: #### 8 7001 #### [facility] [address] [place] [address], [facility] UNIT RH 1 Negative Normal [facility] Comment on above: Order Comment: INR: 2.88 ,PTT: 36.7 at the time of order ;Indication: Other pacemaker placement Performed By: #### 8 7001 #### [facility] [address] [place] [address], [facility] LIVER BATTERYon 10-13-2021 Albumin [Mass/Vol] 4.0 g/dL Normal 3.5-5.7 [facility] Comment on above: Performed By: #### 0 0071, 76568, 41766, 88783 #### [facility] [address] [place] [address], [place] ALKALINE PHOSPH 137 IU/L High 34-104 [facility] Comment on above: Performed By: #### 0 0071, 16247, 10196, 53395 #### [facility] [address] [place] [address], [place] ALT [Catalytic activity/Vol] 29 U/L Normal 7-52 [facility] Comment on above: Performed By: #### 0 0071, 17678, 14270, 55584 #### [facility] [address] [place] [address], [place] AST [Catalytic activity/Vol] 22 U/L Normal 13-39 [facility] Comment on above: Performed By: #### 0 0071, 50419, 64711, 82840 #### [facility] [address] [place] [address], [place] Bilirubin [Mass/Vol] 0.7 mg/dL Normal 0.3-1.0 [facility] Comment on above: Performed By: #### 0 0071, 67720, 04437, 30246 #### [facility] [address] Bilirubin.direct [Mass/Vol] 0.1 mg/dL Normal 0.0-0.2 [facility] Comment on above: Performed By: #### 0 0071, 45913, 40390, 09747 #### [facility] [address] [place] [address], [facility] Protein [Mass/Vol] 6.3 g/dL Normal 6.0-8.3 [facility] Comment on above: Performed By: #### 0 0071, 51003, 08138, 70298 #### [facility] [address] MAGNESIUM BLOODon 10-13-2021 Magnesium [Mass/Vol] 2.0 mg/dL Normal 1.9-2.7 [facility] Comment on above: Performed By: #### 0 0071, 56213, 22587, 47426 #### [facility] 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 Performed By: #### 3 2044 #### [address] PORTABLE CHEST 1 VIEWon 09-26 PORTABLE CHEST 1 VIEW [facility] Department of Radiology [address] [place] [id number] Patient Name: RY LERNER : 1935 Sex: M Age: Race: White Pt. Location: [facility] Patient Status: E Ordered Date: 10/13/2021 [...] report. Electronically signed: Mark Aguilar. Transcribed by: [email or web address], User Resident: HMUBLE HERNANDEZ Electronically Signed by: MARK AGUILAR @ 10/13/2021 05:55 AM I personally read this/these film(s) with this resident Normal [facility] Comment on above: Order Comment: evalu ate for Infiltrates PROTHROMBIN TIMEon 2 INR Coag (PPP) [Relative time] 2.88 {INR} High 0.91-1.16 [facility] Comment on above: Result Comment: ACCC [...] CHEST 1995;108:231S-246S. Performed By: #### 5 6101, [address] #### [address] PT Coag (PPP) [Time] 30.0 s High 12.3-14.8 [facility] Comment on above: Result Comment: ALL RESULTS MUST BE INTERPRETED WITH RESPECT TO BLOOD DRAWING ARTIFACT OR DILUTION ERROR OF ANTICOAGULANT AT THE TIME OF SAMPLING. Performed By: #### 5 6101, 98050 #### [facility] [address] [place] [address], [facility] TROPONIN-Ion 10-13-2021 Troponin I.cardiac [Mass/Vol] 0.05 ng/mL High 0.00-0.04 [facility] Comment on above: Result Comment: REFE RENCE RANGES: 0.00 - 0.04 ng/ml NORMAL 0.05 - 0.50 ng/ml INDETERMINATE > 0.50 ng/ml CONSISTENT WITH AN M.I. Performed By: #### 0 0071, 17593, 66915, 89856 #### [facility] [address] TYPE AND SCREENon 10-13-2021 ABO INTERPRETATION O Normal [facility] Comment on above: Performed By: #### 5 0103 #### [facility] [address] [place] [address], [facility] RH INTERPRETATION Positive Normal The [facility] Comment on above: Performed By: #### 5 0103 #### [facility] [address] Vital Signs Date Time Vital Sign Value Performing Clinician Facility 06-02-2022 14:50-0400 Body height 182.88 cm Sonja Aden Other [facility] Other 06-02-2022 14:50-0400 Body mass index (BMI) [Ratio] 29.73 kg/m2 Sonja Aden Other [facility] Other 06-02-2022 14:50-0400 Body temperature 99.6 [degF] Sonja Aden Other [facility] Other 06-02-2022 14:50-0400 Body weight 99.43 kg Sonja Aden Other [facility] Other 06-02-2022 14:50-0400 Diastolic blood pressure 54 mm[Hg] Sonja Aden Other [facility] Other 06-02-2022 14:50-0400 Respiratory rate 18 /min Sonja Aden Other [facility] Other 06-02-2022 14:50-0400 SaO2% (BldA) [Mass fraction] 95 % Sonja Aden Other [facility] Other 06-02-2022 14:50-0400 Systolic blood pressure 118 mm[Hg] Sonja Aden Other [facility] Other Encounters Encounter Date Encounter Type Care Provider Facility Start: 10-02-2023 ambulatory Sheng L Yolis Facility: [facility] [place] Start: 09-30-2023 ambulatory Sheng L Yolis Facility: [facility] Start: 09-04-2023 ambulatory Sheng L Yolis Facility: [facility] [place] Start: 09-03-2023 End: 09-04-2023 ambulatory Sheng L Yolis Facility:[facility] [place] [facility] Start: 08-29-2023 End: 08-29-2023 ambulatory ADDIE A FELTER Not Available Start: 08-29-2023 Bamboo flowsheet Addie A Fel ter [employer] INSTALLER-INCIDENT ENGINEER Work Phone: [facility] Start: 08-29-2023 Bamboo flowsheet Addie A Fel ter [employer] INSTALLER-INCIDENT ENGINEER Work Phone: [facility] Start: 08-29-2023 End: 08-29-2023 Office outpatient new 30 minutes Addie A Felter [employer] INSTALLER-INCIDENT ENGINEER Work Phone: [facility] Comment on above: Other atopic dermati tis (Primary Dx); Seborrheic keratosis Start: 08-28-2023 End: 08-29-2023 ambulatory John Nieves Facility:[facility] [place] Start: 07-03-2023 End: 07-04-2023 ambulatory Sheng L Yolis Facility:[facility] [place] Start: 07-02-2023 End: 07-02-2023 ambulatory [facility] Start: 05-15-2023 End: 05-15-2023 ambulatory [facility] Start: 02-08-2023 End: 02-08-2023 ambulatory [facility] Start: 01-22-2023 End: 01-23-2023 ambulatory Sheng L Yolis Facility:[facility] Start: 01-22-2023 End: 01-22-2023 Lab Drop off Sheng L Yolis [facility] Start: 12-31-2022 End: 12-31-2022 ambulatory [facility] Facility:[facility] Start: 12-25-2022 End: 12-26-[address] JASON SILVA . Facility: Start: 12-21-2022 End: 12-22-2022 ambulatory Sheng L Yolis Facility:[facility] [place] Start: 12-17-2022 End: 01-16-2023 ambulatory Sheng L Yolis Facility:[id number] Start: 12-12-2022 End: 12-14-2022 Evaluation and management of inpatient DR JASON SILVA . Facility: Start: 12-11-2022 End: 12-12-2022 ambulatory Sheng L Yolis Facility:[facility] Start: 12-11-2022 End: 12-11-2022 Lab Drop off Sheng L Yolis [facility] Start: 12-10-2022 End: 12-10-2022 ambulatory [facility] Facility:[facility] Start: 11-27-2022 End: 11-27-2022 ambulatory [facility] Start: 11-26-2022 End: 12-26-2022 ambulatory SHAIKH Joe APPLED Facility:[facility] Start: 11-06-2022 End: 11-07-[address] JASON SILVA . Facility:[facility] Start: 11-06-2022 End: 11-06-[facility] Start: 10-29-2022 End: 11-23-2022 ambulatory HAYWARD H FAWWAD Facility:[facility] Start: 10-09-2022 ambulatory Sheng Rey Facility:[facility] Start: 09-26-2022 End: 10-26-2022 ambulatory HAYWARD H FAWWARDD Facility:[facility] Start: 08-29-2022 End: 09-26-2022 ambulatory SHAIKH Joe APLPED Facility:[facility] Start: 08-22-2022 End: 08-23-[address] JASON SILVA . Facility:[facility] Start: 08-16-2022 End: 08-17-[address] JASON SILVA . Facility:[facility] Start: 07-30-2022 End: 08-29-2022 ambulatory SHAIKH Joe APPLED Facility:[facility] Start: 07-24-2022 End: 07-25-2022 ambulatory [facility] Facility:[facility] Start: 07-24-2022 End: 07-24-2022 ambulatory [facility] Start: 06-28-2022 End: 07-29-2022 ambulatory SHAIKH Joe APPLED Facility:[facility] Start: 06-02-2022 End: 06-02-2022 ambulatory Sonja Aden Other [facility] Other Start: 06-02-2022 Office outpatient ne w 30 minutes Sonja Aden [facility] Start: 05-29-2022 End: 06-27-2022 ambulatory HAYWARD H FAWWAD Facility:[facility] Start: 04-29-2022 End: 05-28-2022 ambulatory HAYWARD H FAWWAD Facility:[facility] Start: 03-29-2022 End: 04-28-2022 ambulatory SHAIKH Joe JUNIOR Facility:[facility] Start: 03-20-2022 End: 03-20-2022 ambulatory UNKNOWN PROVIDER Facility:[facility] Start: 02-26-2022 End: 03-28-2022 ambulatory SHAIKH Joe JUNIOR Facility:[facility] Start: 02-15-2022 End: 02-16-2022 ambulatory KELLY BONILLA Facility:[facility] Start: 01-26-2022 End: 02-23-2022 ambulatory SHAIKH Joe JUNIOR Facility:[facility] Start: 10-13-2021 End: 10-13-2021 ambulatory [facility] Start: 10-13-2021 End: 10-13-2021 Emergency department patient visit PHYSICIAN UNKNOWN Facility:[facility] Procedures Date Procedure Procedure Detail [...] MP #### [facility] [address] [address] [address] Rashmi Nolan Start: 10-13-2021 Antibody screen PHYSICI AN UNKNOWN Comment on above: Performed By: #### 5 0103 #### [facility] [address] Start: 09-26-2021 Cardiac pacemaker, d evice (physical object) Sheng Rey Start: 02-26-2011 Colonoscopy Sheng cannon Start: 01-01-1996 TURP syndrome (disorder) Sheng Yolis Start: 07-29-1993 Herniated structure (morphologic abnormality) Sheng Yolis Tonsillectomy and adenoidectomy Sheng Yolis Plan of Treatment Date Care Activity Detail Author Start: 08-29-2023 End: 08-29-2023 Patient encounter procedure 08/29/2023 1:00 PM EST Office Visit [facility] [address] [place] [id number] Addie Huston, [employer] INSTALLER-INCIDENT ENGINEER [address] [place] [address] Arrived [facility] Comment on above: Arrived Immunizations Immunization Date Immunization Notes Care Provider Fa cili 05-02-2022 influenza virus vaccine, unspecified formulation Sheng Yolis [facility] 05-02-2022 Seasonal trivalent influenza vaccine, adjuvanted, preservative free Addie Huston [employer] INSTALLER-INCIDENT ENGINEER Work Phone: [facility] 09-17-2020 SARS-CoV-2 (COVID-19 ) mRNA BNT-162b2 vax Sheng Yolis [facility] Comment on above: Result Comment: 2022: [id number] 08-27-2020 SARS-CoV-2 (COVID-19 ) mRNA BNT-162b2 vax Sheng Yolis [facility] Comment on above: Result Comment: 2022: [id number] 06-13-2020 influenza virus vaccine, unspecified formulation Sheng Yolis [facility] 06-01-2019 influenza virus vaccine, unspecified formulation Sheng Yolis [facility] 04-14-2018 influenza virus vaccine, unspecified formulation Sheng Yolis [facility] 04-22-2017 influenza virus vaccine, unspecified formulation Sheng Yolis [facility] 05-01-2016 influenza virus vaccine, unspecified formulation Sheng Yolis [facility] 06-02-2015 influenza virus vaccine, unspecified formulation Sheng Yolis [facility] 05-31-2014 influenza virus vaccine, unspecified formulation Sheng Yolis [facility] 06-02-2013 influenza virus vaccine, unspecified formulation Sheng Yolis [facility] 05-29-2005 influenza, whole Sheng Yolis [facility] Payers Date Payer Category Payer Unknown FAPOO 1999 Medicare MEDICARE MEDICAR E PART B [id number] 1999-[place] [address] [place] [address] Medicare [id number] 1959 Medicare [id number] 1935 Unknown [id number] ..840.1.431401.3.579.2.647 1934 Unknown [id number] .840.1.402834.3.579.2.732 1934 Unknown [id number] 2.16.840.1.094262.3.579.2.732 1934 Unknown [id number] 2.16.840.1.064355.3.579.2.718 1934 Unknown [id number] 2.16.840.1.885837.3.579.2.718 1934 Unknown [id number] 2.16.840.1.228789.3.579.2.593 1934 Unknown [id number] 2.16.840.1.727707.3.579.2.593 1934 Unknown [id number] 2.16.840.1.972077.3.579.2.593 1934 Unknown [id number] 2.16.840.1.073594.3.579.2.593 1934 Unknown [id number] 2.16.840.1.990622.3.579.2.593 1934 Unknown [id number] 2.16.840.1.011449.3.579.2.593 1934 Unknown [id number] 2..840.1.494639.3.579.2.593 1934 Unknown [id number] 2.840.1.982196.3.579.2.593 1934 Unknown [id number] 2.840.1.002050.3.579.2.593 1934 Unknown [id number] 2.840.1.411481.3.579.2.593 1934 Unknown [id number] 2..840.1.065381.3.579.2.593 1934 Unknown [id number] 2..840.1.930638.3.579.2.593 1934 Unknown [id number] 2.16.840.1.497504.3.579.2.593 1934 Unknown [id number] 2.16.840.1.732525.3.579.2.593 1934 Unknown [id number] 2.16.840.1.058298.3.579.2.593 1934 Unknown [id number] 2.16.840.1.545207.3.579.2.593 1934 Unknown [id number] 2.16.840.1.060736.3.579.2.593 1934 Unknown [id number] 2.16.840.1.154997.3.579.2.593 1934 Unknown [id number] 2.16.840.1.871953.3.579.2.1259 1934 Unknown [id number] 2.16.840.1.491460.3.579.2.727 1934 Unknown [id number] 2.16.840.1.684690.3.579.2.727 1934 Unknown [id number] 2.16.840.1.802439.3.579.2.727 1934 Unknown [id number] 2.16.840.1.107609.3.579.2.727 1934 Unknown [id number] 2.16.840.1.450273.3.579.2.727 1934 Unknown [id number] 2.16.840.1.829845.3.579.2.727 1934 Unknown [id number] 2.16.840.1.436641.3.579.2.727 1934 Unknown [id number] 2.16.840.1.794550.3.579.2.727 1934 Unknown [id number] 2.16.840.1.723661.3.579.2.727 1935 Unknown [id number] 1935 Unknown [id number] Social History Date Type Detail Facility Unknown if ever smoked Novadiol Other Start: 02-05-2023 End: 08-29-2023 [facility] Start: 12-11-2022 End: 12-13-2022 Tobacco smoking status Never smoked tobacco (finding) [facility] Tobacco smoking status Never [facility] Comment on above: Quit in 2002 Start: 01-22-2023 Tobacco smoking status Ex-smoker (finding) [facility] Comment on above: Quit in 2002 Start: 12-13-2022 Tobacco use and exposure Smokeless tobacco non-user [facility] Start: 02-05-2023 End: 08-29-2023 Alcohol intake Current drinker of alcohol (finding) [facility] Start: 02-05-2023 End: 08-29-2023 History of Social function [facility] Start: 1935 Sex Assigned At Not on file N [facility] Clinical Notes 10-13-2021 to 08-29-2023 Addie Huston, [facility] - 08/29/2023 1:00 PM EST Note [...] encounter [facility] 05-15-2023 Note [place] Cardiology Consul t Note Reason for visit: [...] on Warfarin, 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 Device check performed on 06/12/2022 shows thresholds to be good. he is in persistent A. Fib and underwent a single-chamber pacemaker. with [employer] on 10/13/2021 and paced 65% Echocardiogram [...] 11/30/2020 at [facility] shows an ejection fraction of 55% with [...] mg DR lindsay (more content not included)... [facility] 05-15-2023 Note Patient here for 3 [...] All other systems reviewed and are negative. [facility] 02-18-2023 Note Stable -ct medications [facility] 02-18-2023 Note [id number]: at [facility] [address] for age and htn -restart warfarin, will follow coumadin clinic here at [facility] -is to report any concerns for bleeding -follow up in 2 months to discuss how he is doing -patient prefers to not consider watchmen if he does not have to [facility] 02-08-2023 Note Patient here for [facility] for GI bleed. He was discharged on 12/14 and coumadin was put on hold. Denies chest pain, SOB, and palpitations. Lost his recently. Review of Systems Musculoskeletal: Positive for arthritis, joint pain and muscle cramps. Neurological: Positive for numbness. All other systems reviewed and are negative. [facility] 02-08-2023 Note [place] Cardiology Consul t Note Reason for visit: Afib. S/p PPM HPI: Ry Lerner is a 87 y.o. 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 Device check performed on 06/12/2022 shows thresholds to be good. he is in persistent A. Fib and underwent a single-chamber pacemaker. with [employer] on 10/13/2021 and paced 65% Echocardiogram [...] 11/30/2020 at [facility] shows an ejection fraction of 55% with [...] No current facility (more content not included)... [facility] 01-01-2023 Note [id number]23 Note [id number] 12-31[facility]2022 Note [facility] SURGERY Clinical Discharge Summary PERSON INFORMATION Name RY LERNER Age 87 Years 1935 Sex MALE Language Rwandan PCP Ezequiel CHAMBERS, John Rodríguez Marital Status Med Service Ambulatory Surgery Acct# Arrival 12/31/2022 08:09:06 Visit Reason SURGERY - RIGHT CARPAL TUNNEL RELEASE [facility] LOS 039 21:33 Address: [address] [place] [address] Comment: PROVIDER INFORMATION VITALS INFORMATION Vital Sign [...] release capsule) 1 cap(s) Oral every day. Kosse's wort (Kosse's wort oral tablet) 1 tab(s) Oral 2 [...] release capsule) 1 cap(s) Oral every day. Kosse's wort (Lindsey's wort oral tablet) 1 tab(s) [...] release capsule) 1 cap(s) Oral every day. Kosse's wort (Kosse's wort oral tablet) 1 tab(s) Oral 2 times a day. warfarin (warfarin 5 mg oral tablet) 1 tab(s) Oral every day. Comment: Lab and Radiology Results Laboratory or Other Results This Visit (last charted value for your 12/31/2022 visit) No Laboratory or Other Results This Visit DIET & ACTIVITY Patient Activity Level: Patient Diet: Patient Activity Restrictions: DISCHARGE INFORMATION Discharge Disposition: Discharge Location: [facility] REASON INCOMPLETE INFORMATION PATIENT EDUCATION INFORMATION Instructions: Juan- Post Op Carpal Tunnel (CUSTOM) Follow up: With: Address: When: MARJ PEREZ [address] [place] [address], [address] [place] [id number] [facility] (1) 01/09/2023 11:00 AM DIAGNOSIS Carpal tunnel syndrome, right Comment: PHYS DOC NOTES [facility] 12-31-2022 Note Procedure: Decompres mary [...] on: 12/31/2022 09:43 EDT] Ward Martinez DO [facility] 12-25-2022 Note [id number] [facility] 12-12-2022 Note [id number] [facility] 12-10-2022 Note procedure: Decompres mary [...] on: 12/10/2022 15:46 EDT] Ward Martinez DO [facility] 12-10-2022 Note [facility] SURGERY Clinical Discharge Summary PERSON INFORMATION Name RY LERNER Age 87 Years 1935 Sex MALE Language Rwandan PCP Ezequiel CHAMBERS, John Marcos Marital Status [facility] Service Ambulatory Surgery Acct# Arrival 12/10/2022 13:13:28 Visit Reason SURGERY - LEFT CARPAL TUNNEL RELEASE [facility] 019 02:57 Address: [address] [place] [address] Comment: PROVIDER INFORMATION VITALS INFORMATION Vital Sign [...] Follow up: With: Address: When: Ward Martinez [address] [place] [address], [address] [place] [address] Business (1) 12/18/2022 1:30 PM Type Location Start [facility] ([facility] Main OR 12/31/2022 7:30 AM 12/31/2022 8:00 AM Confirmed DIAGNOSIS Carpal tunnel syndrome of left wrist Comment: PHYS DOC NOTES [facility] 11-06-2022 Note Cardiology Clinic No te Subjective Ry Lerner is a 87 y.o. 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 Device check performed on 06/12/2022 shows thresholds to be good. he is in persistent A. Fib and underwent a single-chamber pacemaker. with [employer] on 10/13/2021 and paced 65% Echocardiogram [...] LV systolic funct (more content not included)... [facility] 11-06-2022 Note Patient here for 4 [...] All other systems reviewed and are negative. [facility] 07-24-2022 Note [place] Cardiology Consul t Note Reason for visit: [...] falls and he has been in the long term lately. Device check performed on 06/12/2022 shows thresholds to be good. he is in persistent A. Fib and underwent a single-chamber pacemaker. with [employer] on 10/13/2021 and paced 65% Echocardiogram [...] 11/30/2020 at [facility] shows an ejection fraction of 55% with [...] Murmur: not hea (more content not included)... [facility] 07-24-2022 Note Review of Systems Cardiovascular: [...] the day. Also has questions about medications [facility] 06-02-2022 Evaluation note Encounter Date Diagnosis [...] treatment plan. Patient left in stable condition Novadiol Other 03-18-2022 History general Narrative - Reported* Type Description Date Medical History HYPERTENSION Medical History STROKE Medical History HEAD INJURY Surgical History PACEMAKER 10/13/2021 Surgical History HERNIA X 2 Surgical History TONSILECTOMY Hospitalization History SEE ABOVE Novadiol Other Evaluation + Plan note No data available for this section [facility] Future Appointments Appointment Date:08/27/2023 09:30:00 AM Scheduled Provider: Location:[facility] Appointment Type: Medicare Wellness Subsequent [facility] Diagnosis Other atopic dermatitis- Primary Seborrheic keratosis [facility] No data available for this section [facility] No data available for this section [facility] Summary Purpose Family History No Family History [...] DATE CREATED AUTHOR 01/26/2022 [facility] DATE CREATED AUTHOR AUTHOR'S ORGANIZ ATION 04/25/2022 [facility] DATE CREATED AUTHOR AUTHOR'S ORGANIZ ATION 01/06/2023 [facility] DATE CREATED AUTHOR AUTHOR'S ORGANIZ ATION 01/06/2023 [facility] DATE CREATED AUTHOR AUTHOR'S ORGANIZ ATION 07/04/2023 [facility] DATE CREATED AUTHOR AUTHOR'S ORGANIZ ATION 08/31/2023 [facility] EPIC DATE CREATED AUTHOR AUTHOR'S ORGANIZ ATION 09/06/[address] [facility] REASON FOR VISIT (unrecogniz ed section and content) Reason Comments Rash Specialty Diagnoses / Procedures Referred By Contac t Referred To Contact Dermatology Diagnoses eczema / skin changes texture changes Sheng Rey MD [address] [place] [address] Rebecca Conley MD [address] [address] Referral ID Status Reason Start Date Expiration Date Visits Re quested Visits Authorized [id number] Closed 07/05/2023 01/01/2024 1 1 Patient Care team informatio n (unrecognized section and content) [employer] Relationship Specialty Start Date End Date Jason Silva MD [address] [place] [address] PCP - General Family Medicine 12/10/22 [employer] Relationship Specialty Start Date End Date Jason Silva MD [address] [place] [phone] PCP - General Family Medicine 12/10/22 [...] BE BASED ON THE PRIMARY CLINICAL RECORDS. [employer] provides no warranty or guarantee of the accuracy or completeness of information in this document.
== END 2023-09-10 09:21 | disposition home or self-care (01) ==
LOC: US 09:20
PROVIDERS: PCP Nurse Practitioner; Visit Provider Nurse Practitioner
DX: K76.9 Liver disease, unspecified (principal); N28.9 Disorder of kidney and ureter, unspecified
CPT/HCPCS: 76705; 76775

== ENCOUNTER 2023-09-27 03:35 | Outpatient (RCR) | payer MEDICARE, SELFPAY | END 2023-10-25 14:12 | disposition home or self-care (01) | LOC: MM 03:35 | PROVIDERS: PCP Nurse Practitioner; Visit Provider Internal Medicine | DX: Z51.81 Encounter for therapeutic drug level monitoring (principal); Z79.01 Long term (current) use of anticoagulants; I48.91 Unspecified atrial fibrillation ==

== ENCOUNTER 2023-10-15 10:48 | Outpatient (OUT) | payer MEDICARE, SELFPAY ==
--- OUTSIDE RECORDS SUMMARY | 2023-10-15 11:11 | XMS_ITS | CCD ---
Author Organization [facility] Care Team Providers Care Injection Press Operator Name Role Phone UNKNOWN, PHYSICIAN Referring Unavailable SILVAJASON CRUZ Primary Care Unavailable HERCHER DEJON Attending Unavailable HERCHER, DEJON Admitting Unavailable PROVIDER, UNKNOWN Attending Unavailable PROVIDER, UNKNOWN Admitting Unavailable PROVIDER, UNKNOWN Attending Unavailable PROVIDER, UNKNOWN Admitting Unavailable Sonja Aden Unavailable Sheng Lagos Primary Care Physician [phone] Ward Martinez Admitting Unavail able Juan, Ward Lyn Attending Unavail able John Nieves Primary Care Unavailable Juan, Ward Lyn Attending Unavail able John Nieves Primary Care Unavailable Juan, Ward Lyn Admitting Unavail able SILVA ., DR JASON Devlin Consulting Unavailable SILVA ., DR JASON Devlin Attending Unavailable SILVA ., DR JASON Devlin Admitting Unavailable SILVA ., DR JASON Devlin Primary Care Unavailable SHAIKH Joe JUNIOR Attending Unavailable SILVA ., DR JASON Devlin Primary Care Unavailable MADELIN JUNIORIKH H Admitting Unavailable FASHAIKH REYNOSO H Admitting Unavailable SILVA ., DR JASON Devlin Primary Care Unavailable SHAIKH JUNIOR H Attending Unavailable KELLY BONILLA Consulting Unavailable KELLY [...] Unavailable CHEPE, DR HARVEY Mcgrath Admitting Unavailable STEPHANIE LOVE Procedure Practitioner Unavailab le MARKER ., DR GODDARD Consulting Unavailable CHEPE, DR HARVEY Mcgrath Procedure Practitioner Unavai eduardo TOSTEPHANIE Consulting Unavailable KLSTEPHANIE YUSUF Consulting Unavailable AQUINO, MCKAYLA Consulting Unavailable DAR [...] GANDARA Attending Unavailable ROYAL GANDARA Referring Unavailable Silva Jason CHAMBERS Primary Care Provider [phone] ADDIE HUSTON Attending Unavailable SHENG LAGOS Referring Unavailable Rosa CHAMBERS, Petros Steven Attending Unavailable Brissa, Sheng Calix Attending Unavailable Brissa, Sheng L Attending Unavailable Brissa, Sheng L Attending Unavailable Brissa, Sheng L Attending Unavailable Brissa, Sheng L Attending Unavailable Brissa, Sheng L Attending Unavailable Brissa, Sheng L Attending Unavailable Brissa, Sheng L Admitting Unavailable Brissa, Sheng L Attending Unavailable Brissa, Sheng L Admitting Unavailable Brissa, Sheng L Attending Unavailable Brissa, Sheng L Admitting Unavailable Brissa, Sheng L Referring Unavailable Mary Jane Garza Attending Unavailable John Nieves Attending Unavailable Allergies Allergy Classification Reported Allergen(s) Allergy Type Date of Onset Reaction(s) Facility (2 sources) No Known Medication Allergies; Translations: [No Known Medication Allergies] Propensity to adverse reactions to drug (disorder) [facility] Repository Medications Current Medications Medication Drug Class(es) Dates Sig (Normalized) Sig (Original) acetaminophen 325 mg oral capsule (3 sources) take 1 capsule by mouth every six hours as needed acetaminophen (Tylenol) 325 MG capsule Take 325 mg by mouth every 6 (six) hours if needed. 0 Active amLODIPine 5 mg oral tablet (7 sources) Dihydropyridine Calcium Channel Benson Start: 09-24-2023 take 1 tablet by mouth once daily amLODIPine 5 mg Tab 5 mg = 1 tab(s), Oral, Daily, # 90 tab(s), Refills(s) 1, Pharmacy: [facility], 179, cm, 09/03/23 10:34:00 EST, Height/Length Dosing, 100.9, kg, 09/03/23 10:34:00 EST, Weight Dosing Start Date: 09/24/23 Status: Ordered Start: 10-31-2022 take 1 tablet by joesph once daily amLODIPine 5 mg Tab 5 [...] 08/29/2023 Active furosemide 40 mg oral tablet (6 sources) Loop Diuretic Start: 09-05-2023 take 1 tablet by mouth once daily furosemide 40 mg Tab 40 mg = 1 tab(s), Oral, Daily, # 90 tab(s), Refills(s) 1, Pharmacy: [facility], 179, cm, 09/03/23 10:34:00 EST, Height/Length Dosing, 100.9, kg, 09/03/23 10:34:00 EST, Weight Dosing Start Date: 09/05/23 Status: Ordered Start: 10-31-2022 take 1 tablet by joesph th once daily furosemide 40 mg Tab 40 mg = 1 tab(s), Oral, Daily, # 30 tab(s), Refills(s) 0 Start Date: 10/31/22 Status: Ordered lisinopril 20 mg oral tablet (7 sources) Angiotensin Converting Enzyme Inhibitor Start: 10-31-2022 take 1 tablet by mouth once daily lisinopril 20 mg Tab 20 mg = 1 tab(s), Oral, Daily, # 90 tab(s), Refills(s) 1, Pharmacy: [facility], 178, cm, 07/03/23 9:26:00 EST, Height/Length Dosing, 98.4, kg, 07/03/23 9:26:00 EST, Weight Dosing Start Date: 08/07/23 Status: Ordered take 1 tablet by joesph th every twenty-four hours Lisinopril 5 MG 1 tablet Orally Once a day Active Multi For Him 50+ - (1 source) Multi For Him 50 + - as directed Orally Active omeprazole 40 mg delayed release oral capsule (5 sources) Proton Pump Inhibitor Start: 01-23-20 take [...] with Ascorbic Acid and Minerals oral tablet (3 sources) Start: 12-12-19 Osteo Bi-Flex Edge Joint [...] Ordered warfarin sodium 5 mg oral tablet (7 sources) Vitamin K Antagonist Start: 11-01-19 take [...] UNSPECIFIED] Onset: 3 Episodic Acute cerebrovascular disease (3 sources) Cerebrovascular accident 10-31-2022 Chronic Acute posthemorrhagic anemia (1 source) Acute posthemorrhagic anemia; Translations: [ACUTE POSTHEMORRHAGIC ANEMIA] Onset: 3 Episodic Alcohol-related disorders (1 source) Alcohol dependence, uncomplicated; Translations: [ALCOHOL DEPENDENCE UNCOMPLICATED] Onset: 3 Chronic Allergic reactions (2 sources) Atopic dermatitis; Translations: [Other atopic dermatitis] 08-29-2023 Chronic Allergic reactions (4 sources) Vesicular eczema; Translations: [Eczema] 10-31-2022 Episodic Cardiac dysrhythmias (11 sources) Atrial fibrillation; Translations: [Cardiac arrhythmia] Onset: [...] 2 Chronic Crushing injury or internal injury (3 sources) Contusion of lung 10-31-2022 Episodic Comment on above: No details in previo us records Deficiency and other anemia (4 sources) Anemia; Translations: [Anemia, unspecified] Onset: 4 10-31-2022 Episodic Comment on above: FE DEF Anemia Deficiency and other anemia (1 source) Iron deficiency anemia, unspecified; Translations: [IRON DEFICIENCY ANEMIA UNSPECIFIED] Onset: 3 Episodic Disorders of lipid metabolism (7 sources) Hyperlipidemia; Translations: [Pure hypercholesterolemia, unspecified] Onset: 3 10-31-2022 Chronic Comment on above: no details in previo us chart Diverticulosis and diverticulitis (1 source) Diverticulosis of large intestine without perforation or abscess without bleeding; Translations: [DVRTCLOS LG INT NO PERF/ABSC W/O BL] Onset: 3 Chronic Essential hypertension (5 sources) Hypertensive disorder; Translations: [Essential (primary) hypertension] Onset: 3 10-31-2022 Chronic Comment on above: No details in previo us records Fluid and electrolyte disorders (1 source) Hyperkalemia; Translations: [HYPERKALEMIA] Onset: 3 Episodic Gastritis and duodenitis (1 source) Gastritis, unspecified, without bleeding; Translations: [GASTRITIS UNS WITHOUT BLEEDING] Onset: 3 Episodic Gastrointestinal hemorrhage (4 sources) 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; Translations: [Chronic gastrojejunal ulcer with hemorrhage] Onset: 3 Chronic Gastrointestinal hemorrhage (6 sources) Gastrointestinal hemorrhage, unspecified; Translations: [Hemorrhage of digestive system] Onset: 3 Episodic Hypertension with complications and secondary hypertension (1 source) Hypertensive chronic kidney disease with stage 1 through stage 4 chronic kidney disease, or unspecified chronic kidney disease; Translations: [HTN CKD W/STAGE 1-4 CKD/UNS CKD] Onset: 3 Chronic Other aftercare (1 source) Other supervisor intermediates (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 therapy; Translations: [OTH PRISON CURRENT DRUG THERAPY] Onset: 3 Episodic Other aftercare (5 sources) Encounter for therapeutic drug level monitoring; Translations: [ENC THERAPEUTC DRUG LEVL MONITORING] Onset: 3 Episodic Other aftercare (1 source) senior living (current) use of anticoagulants; Translations: [SOLUTION LEAD CURRNT USE ANTICOAGULANTS] Onset: 3 Episodic Other and ill-defined cerebrovascular disease (1 source) Cerebrovascular disease, unspecified; Translations: [CEREBROVASCULAR DISEASE UNSPECIFIED] Onset: 3 Chronic Other diseases of kidney and ureters (1 source) Renal mass 09-04-2023 Chronic Other gastrointestinal disorders (3 sources) Hemorrhage into peritoneal cavity 10-31-2022 Episodic Comment on above: No details in previo us medical record Other gastrointestinal disorders (1 source) Other fecal abnormalities; Translations: [OTHER FECAL ABNORMALITIES] Onset: 3 Episodic Other liver diseases (1 source) Disease of liver; Translations: [Other specified diseases of liver] Onset: 4 Chronic Other liver diseases (1 source) Nodule of liver 09-04-2023 Chronic Other liver diseases (1 source) Enzyme level - finding; Translations: [Abnormal levels of other serum enzymes] Onset: 4 Episodic Other lower respiratory disease (1 source) [...] Chronic Other nutritional; endocrine; and metabolic disorders (2 sources) Body mass index 30+ - obesity 12-21-2022 Chronic Other nutritional; endocrine; and metabolic disorders (1 source) Obese class I; Translations: [Body mass index (BMI) 30.0-30.9, adult] Onset: 4 Chronic Other screening for suspected conditions (not mental disorders or infectious disease) (2 sources) CT of chest abnormal; Translations: [Plain X-ray cervical spine abnormal] 09-04-2023 Episodic Other skin disorders (2 sources) Seborrheic keratosis; Translations: [Other seborrheic keratosis] 08-29-2023 Episodic Other skin disorders (1 source) Changes in skin texture 07-03-2023 Episodic Pancreatic disorders (not diabetes) (1 source) Cyst of pancreas; Translations: [Cyst of pancreas] Onset: 4 Episodic Residual codes; unclassified (1 source) Family history of malignant neoplasm of digestive organs; Translations: [FAM HX MALIG NEOPLASM DIGESTIV ORGN] Onset: 3 Episodic Residual codes; unclassified (1 source) Other specified postprocedural states; Translations: [OTH SPECIFIED POSTPROCEDURAL STATES] Onset: 3 Episodic Screening and history of mental health and substance abuse codes (3 sources) Personal history of nicotine dependence; Translations: [Ex-cigar smoker] Onset: 3 12-21-2022 Episodic Unclassified (5 sources) Chronic atrial fibrillation, unspecified; Translations: [CHRONIC ATRIAL FIBRILLATION UNSPEC] Onset: 3 Unclassified (2 sources) Other persistent atrial fibrillation; Translations: [Other persistent atrial fibrillation] Onset: 2 Unclassified (1 source) Rupture of rotator cuff of shoulder 09-04-2023 Past or Other Problems Problem Classification Problem [...] Test Name Value Interpretation Reference Range Facility Ambulatory Visit Summaryon 0 10-02-2023 Ambulatory Visit Summary RY LERNER :1935 Visit Date:10/02/2023 Ambulatory Visit Instructions Your Diagnosis Abnormal ultrasound of kidney Cyst of pancreas BMI 30.0-30.9,adult Non-smoker Your Care Team Attending Physician - Sheng Simms Primary Care Physician - Sheng Simms This Is Your Medications List amlodipine (amLODIPine 5 mg Tab) chondroitin-glucosami ne (Osteo Bi-Flex Edge Joint & Energy with Ascorbic Acid and Minerals oral tablet) furosemide (furosemide 40 mg Tab) lisinopril (lisinopril 20 mg Tab) omeprazole (omeprazole 40 mg Cap-DR) warfarin (warfarin 5 mg Tab) Procedures Performed Colonoscopy (12/12/2022), Carpal tunnel release (12/10/2022), Cardiac pacemaker (09/2021), Colonoscopy (02/2011), Transurethral resection of prostate (TURP) syndrome (1995), Hernia (1993), Tonsillectomy with adenoidectomy. Discharge Vitals Heart Rate (Peripheral) 68 Respiratory Rate 18 Blood Pressure 120/76 Height 179.0 cm Height 70 in Weight 97.43 kg Weight 214.346 lb BMI 30.41 Medications What How Much When Instructions Unchanged amlodipine (amLODIPine 5 mg Tab) 1 Tablets By Mouth Every day Unchanged chondroitin-glucosami ne (Osteo Bi-Flex Edge Joint & Energy with Ascorbic Acid and Minerals oral tablet) Unchanged furosemide (furosemide 40 mg Tab) 1 Tablets By Mouth Every day Unchanged lisinopril (lisinopril 20 mg Tab) 1 Tablets By Mouth Every day Unchanged omeprazole (omeprazole 40 mg Cap-DR) 1 Capsules By Mouth Every day Unchanged warfarin (warfarin 5 mg Tab) 1 Tablets By Mouth Every day Allergies No Known Allergies No Known Medication Allergies Problems Ongoing - Any problem that you are currently receiving treatment for. Abnormal chest CT Abnormal ultrasound of kidney Abnormal x-ray of cervical spine Acute cerebrovascular accident (CVA) AF (atrial fibrillation) Anemia Bleeding ulcer BMI 30.0-30.9,adult Contusion of lung Cyst of pancreas Dyshidrotic eczema Dysrhythmias Eczema Former cigar smoker Hemoperitoneum HTN (hypertension) Hyperlipidemia Liver nodule Nodule of kidney Rotator cuff tear Skin texture changes Patient Survey You may receive a survey via text or e-mail asking about your office visit. Please share your experience with us by completing your survey. We appreciate your feedback and thank you for choosing us for your care. Normal [facility] Family Medicine Office/Clini c Noteon 10-02-2023 Family Medicine Office/Clinic Note HPI Staff Ry is an 87 year old male presenting for 1 month follow up [place] 09/04/23 Liver nodule, U/s of liver was ordered and referred to GI at [facility], labs drawn pt seen seen spring former machine 09/30/[address] ordered with some blood work pt did see pain management for right shoulder had injection and has been using hemp cream and states shoulder is feeling a lot better. History of Present Illness pt presents today for follow up on multiple referrals Review of Systems PHQ Score Initial Depression Screen Score: 0 SCORE ROS - Provider Constitutional: no fever, no chills, no sweats, no fatigue Respiratory: no shortness of breath, no cough, no orthopnea, no wheezing. Cardiovascular: no chest pain, no palpitations, no edema. Neurologic: no headache, no dizziness, no numbness, no weakness. Physical Exam Vitals & Measurements HR: 68(Peripheral) RR: 18 BP: 120/76 SpO2: 99% HT: 70 in HT: 179.0 cm WT: 97.43 kg WT: 214.346 lb BMI: 30.41 General: alert, no acute distress ENMT: oral mucosa moist, no pharyngeal erythema or exudate Cardiovascular: regular rate and rhythm, normal peripheral perfusion Respiratory: Lungs CTA, respirations non labored Extremities: no deformity, no trauma Neurological: oriented x 4, LOC appropriate for age, CN II-XII intact, motor strength equal & normal bilaterally, speech normal Assessment/Plan 1. Abnormal ultrasound of kidney (R93.429: Abnormal radiologic findings on diagnostic imaging of unspecified kidney) pt will be scheduled for CT of abdomen and pelvis. was seen by GI on Saturday. pt planning to take a trip to [place] tomorrow and will be gone for 9 days. will schedule when he gets back 2. Cyst of pancreas (K86.2: Cyst of pancreas) will be scheduled for CT of abdomen and pelvis 3. Rotator cuff tear (M75.100: Unspecified rotator cuff tear or rupture of unspecified shoulder, not specified as traumatic) pt was seen by pain management and they did an injection. pt was feeling great then over did it. and is now hurting again. bought some hemp cream and says he is getting relief from that. 4. Abnormal liver ultrasound (R93.2: Abnormal findings on diagnostic imaging of liver and biliary tract) GI is following 5. BMI 30.0-30.9,adult (Z68.30: Body mass index [BMI] 30.0-30.9, adult) BMI education complete 6. Non-smoker (Z78.9: Other specified health status) continue not smoking Follow-up No qualifying data available Problem List/Past Medical History Ongoing Abnormal chest CT Abnormal liver ultrasound Abnormal ultrasound of kidney Abnormal x-ray of cervical spine Acute cerebrovascular accident (CVA) AF (atrial fibrillation) Anemia Bleeding ulcer BMI 30.0-30.9,adult Contusion of lung Cyst of pancreas Dyshidrotic eczema Dysrhythmias Eczema Former cigar smoker Hemoperitoneum HTN (hypertension) Hyperlipidemia Liver nodule Nodule of kidney Rotator cuff tear Skin texture changes Historical No qualifying data Procedure/Surgical History Colonoscopy (12/12/2022), Carpal tunnel release (12/10/2022), Cardiac pacemaker (09/2021), Colonoscopy (02/2011), Transurethral resection of prostate (TURP) syndrome (1995), Hernia (1993), Tonsillectomy with adenoidectomy. Medications amLODIPine 5 mg Tab, 5 mg= 1 tab(s), Oral, Daily, 1 refills furosemide 40 mg Tab, 40 mg= 1 [...] Use:. Cigars, Pipe, Household tobacco concerns: No., 10/02/2023 Former smoker, quit more than 30 days ago Tobacco Use:., 09/30/2023 Family History Diabetes mellitus type 1: Grandparent. Primary malignant neoplasm of colon: Father and Brother. Immunizations Vaccine Date Status Comments zoster vaccine, inactivated 08/02/2023 Recorded pneumococcal 20-valent conjugate vaccine 07/03/2023 Recorded influenza virus vaccine, inactivated 07/03/2023 Recorded influenza virus vaccine, inactivated 05/02/2022 Recorded SARS-CoV-2 (COVID-19) mRNA-1273 vaccine 04/28/2021 Recorded SARS-CoV-2 (COVID-19) mRNA BNT-162b2 vax 09/17/2020 Recorded 2022-10-31: TPV80 SARS-CoV-2 (COVID-19) mRNA BNT-162b2 vax 08/27/2020 Recorded 2022-10-31: TPV80 influenza virus vaccine, inactivated 06/13/2020 Recorded influenza virus vaccine, inactivated 06/01/2019 Recorded influenza virus vaccine, inactivated 04/14/20 (more content not included)... Normal [facility] Comment on above: Result Comment: Elec tronically Signed By: Sheng Simms\.br\Date and Time Signed: 10/02/23 10:41 EST Gastroenterology Office/Clin ic Noteon 09-30-2023 Gastroenterology Office/Clinic Note Chief Complaint ref by brissa ulcer and liver nodule HPI Staff This is a 87 year old male who presents today for a referral by Brissa for complaints of liver nodule and bleeding Ulcer patient had black stools for two days several months ago, but hasn't had any since. US RUQ 09/10/23 IMPRESSION: Hepatic lesions likely representing simple and complex cysts Indeterminate 1.8 cm left renal cortex exophytic mass. Consider pre and postcontrast CT exam to determine enhancement characteristics Areas of hypoechogenicity within the pancreas, indeterminate Consider pre and postcontrast CT exam to determine enhancement characteristics of the renal and pancreatic lesions Labs 09/06/23 Alk Phos 242 PT 14.5 INR 1.39 RBC 2.91 Hematocrit 29.3 Hemoglobin 9.2 Last EGD/Colon 12/13/22 small gastric ulcer, gastritis diverticulosis History of Present Illness pt with hx of bleeding from possible ulcer 9 months ago lasted for 2 days then stopped on omeprazole pt on Coumadin for 5-6 years symptoms resolved pt changed his diet weight loss- intentional I have reviewed HPI staff note, most recent labs and imaging, more than 30 minutes spent reviewing the chart, during encounter, placing orders and counseling the patient. Review of Systems PHQ Score Initial Depression Screen Score: 0 SCORE All systems reviewed, negative except as mentioned above Physical Exam Vitals & Measurements T: 35.4 ?C(Temporal Artery) HR: 60(Peripheral) RR: 16 BP: 114/57 HT: 70 in HT: 179 cm WT: 97.5 kg WT: 214.5 lb BMI: 30.43 General: alert, no acute distress HEENT: atraumatic normocephalic Cardiovascular: regular rate and rhythm, normal peripheral perfusion Respiratory: Lungs CTA, respirations non labored Extremities: no deformity, no trauma Abdomen: Benign, soft, nontender nondistended Assessment/Plan 1. Liver nodule (K76.89: Other specified diseases of liver) Ordered: CT Abdomen/Pelvis w/ + w/o Contrast Ferritin Iron Level 2. Bleeding ulcer (K28.4: Chronic or unspecified gastrojejunal ulcer with hemorrhage) Ordered: Ferritin H. pylori Stool Ag Iron Level 3. Pancreas cyst (K86.2: Cyst of pancreas) Ordered: Ferritin Iron Level 4. Elevated alkaline phosphatase level (R74.8: Abnormal levels of other serum enzymes) Ordered: Alkaline Phosphatase Isoenzymes Ferritin Iron Level 5. Anemia (D64.9: Anemia, unspecified) Ordered: Ferritin H. pylori Stool Ag Iron Level 6. BMI 30.0-30.9,adult (Z68.30: Body mass index [BMI] 30.0-30.9, adult) Ordered: Ferritin Iron Level will obtain iron studies will check ALP isoenzymes H.pylori stool ag will obtain CT of the liver and pancreas to assess lesions no need for EGd for now since symptoms resolved Follow-up No qualifying data available Problem List/Past [...] Tab, 5 mg= 1 tab(s), Oral, Daily, 1 refills furosemide 40 mg Tab, 40 mg= 1 [...] quit more than 30 days ago Tobacco Use:., 09/30/2023 Former smoker, quit more than 30 days ago Tobacco Use:. Never Smokeless Tobacco Use:. Cigars, Pipe, Household tobacco concerns: No., 09/03/2023 Family History Diabetes mellitus type 1: Grandparent. Primary malignant neoplasm of colon: Father and Brother. Immunizations Vaccine Date Status Comments zoster vaccine, inactivated 08/02/2023 Recorded pneumococcal 20-valent conjugate vaccine 07/03/2023 Recorded influenza virus vaccine, inactivated 07/03/2023 Recorded influenza virus vaccine, inactivated 05/02/2022 Recorded SARS-CoV-2 (COVID-19) mRNA-1273 vaccine 04/28/2021 Recorded SARS-CoV-2 (COVID-19 (more content not included)... Normal [facility] Comment on above: Result Comment: Elec tronically Signed By: Greg CHAMBERS, Mary Jane Eddy\.br\Date and Time Signed: 09/30/23 14:51 EST Consultation Noteon 09-09-19 24 Consultation Note [id number] .00TIFF [facility] Physician Referralon 024 Physician Referral [id number] .00TIFF [facility] Family Medicine Office/Clini c Noteon 09-04-2023 Family Medicine Office/Clinic Note HPI Staff Raza is a 87 year old male presenting to review x-rays Pt has x-rays done on 08/28/23, CT chest on 08/30/[address] right shoulder 09/02/23 Pt needs refill on furosemide pt states he went to [facility] 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 pt referred to GI at [facility]. liver enzymes ordered as well. pt will have labs drawn at [facility]. RTC 1 month to touch base with all of the additional testing and referral we have placed. Ordered: [facility] Internal Ambulatory Referral 2. Nodule of kidney [...] stools and HGB dropped critically low Ordered: [facility] Internal Ambulatory Referral 5. Abnormal x-ray of cervical spine (R93.7: Abnormal findings on diagnostic imaging of other parts of musculoskeletal system) CT of cervical spine ordered 6. Rotator cuff tear (M75.100: Unspecified rotator cuff tear or rupture of unspecified shoulder, not specified as traumatic) pt informed that he has an old rotator cuff tear. pt declines referral to ortho at this time Ordered: [facility] External Ambulatory Referral 7. BMI 31.0-31.9,adult (Z68.31: [...] influenza virus (more content not included)... Normal [facility] Comment on above: Result Comment: Elec tronically Signed By: Sheng Simms\.br\Date and Time Signed: 09/04/23 12:27 EST Physician Referralon 024 Physician Referral [id number] .00TIFF [facility] Ambulatory Visit Summaryon 0 09-03-2023 Ambulatory Visit Summary RY LERNER :1935 Visit Date:09/03/2023 Ambulatory Visit Instructions Your Diagnosis BMI 31.0-31.9,adult Non-smoker Your Care Team Attending Physician - Sheng Simms Primary Care Physician - Sheng Simms This Is Your Medications List amlodipine (amLODIPine 5 mg Tab) chondroitin-glucosami ne (Osteo Bi-Flex Edge Joint & Energy with [...] EST With: Sheng Simms Where: [facility] [place] Normal [facility] Lab Reportson 09-03-2023 Lab Reports [id number]#1 .00TIFF [facility] Lab Reports [id number] .00TIFF [facility] Physician Orderon 09-03-2023 Physician Order [id number] .00TIFF [facility] Consultation Noteon 08-30-19 Consultation Note [id number]#1 .00TIFF [facility] Physician Orderon 08-30-2023 Physician Order [id number]#1 [facility] [facility] Physician Orderon 08-29-2023 Physician Order [id number]#1 .00TIFF [facility] Physician Order [id number]#1 .00TIFF [facility] RAD - MISCon 08-29-2023 RAD - MISC [id number]# 1.00TIFF [facility] RAD - MISC [id number]# 1.00TIFF [facility] RAD - MISC [id number]#1 .00TIFF [facility] Ambulatory Visit Summaryon 0 08-28-2023 [...] Medications List amlodipine (amLODIPine 5 mg Tab) chondroitin-glucosami ne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 [facility] [address] [place] [address] Dr. Rashmi Nolan MCV (RBC) [Entitic vol] 100.3 fL Critically high 80.0-94.0 [facility] Comment on above: Performed By: #### C BC #### [facility] [address] [address] [address] Rashmi Nolan MONO # 0.3 103/ul Normal 0.3-0.8 [facility] Comment on above: Performed By: #### C BC #### [facility] [address] [address] [address] Rashmi Nolan Monocytes/100 WBC (Bld) 9.6 % Normal 1.7-12.0 [facility] Comment on above: Performed By: #### C BC #### [facility] [address] [address] [address] Rashmi Nolan NEUT # 1.9 103/ul Normal 1.4-6.5 [facility] Comment on above: Performed By: #### C BC #### [facility] [address] [place] [address] Dr. Rashmi Nolan Neutrophils/100 WBC (Bld) 57.2 % Normal 43.0-75.0 [facility] Comment on above: Performed By: #### C BC #### [facility] [address] [place] [address] Dr. Rashmi Nolan Platelet mean volume (Bld) [Entitic vol] 10.5 fL Normal 9.5-13.5 [facility] Comment on above: Performed By: #### C BC #### [facility] [address] [place] [address] Dr. Rashmi Nolan PLT 129 103/ul Critically low 150-450 [facility] Comment on above: Performed By: #### C BC #### [facility] [address] [place] [address] Dr. Rashmi Nolan RBC 2.97 106/ul Critically low 4.70-6.10 [facility] Comment on above: Performed By: #### C BC #### [facility] [address] [address] [address] Rashmi Nolan WBC 3.3 103/ul Critically low 4.0-11.0 [facility] Comment on above: Performed By: #### C BC #### [facility] [address] [place] [address] Dr. Rashmi Nolan PROTIMEon 12-25-2022 INR Coag (PPP) [Relative time] 1.03 {INR} Normal [facility] Comment on above: Performed By: #### B MP #### [facility] [address] [place] [address] Dr. Rashmi Nolan INR GUIDELINES SEE BELOW Normal [facility] Comment on above: Result Comment: ENOC RED INR: 2.0 - 3.0 CONDITIONS NOT LISTED BELOW 2.5 - 3.5 FOR PROSTHETIC HEART VALVE REPLACEMENT 2.5 - 3.5 RECURRENT THROMBOSIS Performed By: #### B MP #### [facility] [address] [address] [address] Rashmi Nolan PT Coag (PPP) [Time] 10.9 s Normal 9.0-11.6 [facility] Comment on above: Performed By: #### B MP #### [facility] [address] [place] [address] Dr. Rashmi Nolan PTTon 12-25-2022 aPTT Coag (Bld) [Time] 25.6 s Normal 22.3-36.2 [facility] Comment on above: Performed By: #### C BC #### [facility] [address] [place] [address] Dr. Rashmi Nolan Ambulatory Visit Summaryon 0 12-21-2022 Ambulatory Visit Summary RY LERNER :1935 Visit Date:12/21/2022 Ambulatory Visit Instructions Your Diagnosis BMI 30.0-30.9,adult Former cigar smoker Your Care Team Attending Physician - Sheng Simms Primary Care Physician - Sheng Simms This Is Your Medications List amlodipine (amLODIPine 5 mg Tab) chondroitin-glucosami ne (O[employer] with [...] 1 Tablets By Mouth Every day Unchanged chondroitin-glucosami ne (Osteo [employer] with [...] numbers. This can be done either in [place] or metric measurements. Note that charts and online BMI calculators are available to help you find your BMI quickly and easily without having to do these calculations yourself. To calculate your BMI in [place] measurements: 1. Measure your weight in [...] ? (more content not included)... Normal [facility] Family Medicine Office/Clini c Noteon 12-21-2022 Family Medicine Office/Clinic Note Chief Complaint Hospital stay follow up HPI Staff Presents for hospital follow up [facility] 12/11-12/14 bleeding ulcer/bloody stools Had Upper and lower scope done. found diverticulosis and bleeding ulcer. Questions/concerns: eczema, why needs to stay on Lasix, why taken off warfarin when to start back up. History of Present Illness pt presents today fro follow up for admission to [facility] for GI bleed Review of Systems [...] today for follow up from admission to [facility] for GI bleed. he received 2 units of blood. and had egd and colonsocopy that show a gastic ulcer and diverticulosis. he was cleared by GI yesterday. he remains off of his warfrin for now. Dr. Silva spoke to Dr. Black ([employer] lining layer) and he was ok with keeping him [...] numbers. This can be done either in [place] or metric measurements. Note that charts and online BMI calculators are available to help you find your BMI quickly and easily without having to do these calculations yourself. To calculate your BMI in [place] measurements: 1. Measure your weight in [...] for Disease Control and Prevention: www.cdc.gov ? [place] [employer]: www.heart.org ? National Heart, Lung, and Blood [place]: www.nhlbi.nih.gov Summary ? Body mass index (BMI) is a number that is calculated from a person's weight and height. ? BMI may help estimate how much of a person's weight is composed of fat. BMI can help identify those who may be at higher risk for certain medical problems. ? BMI can be measured using [place] measurements or metric measurements. ? BMI charts are used to identify whether you are underweight, normal weight, overweight, or obese. This information is not intended to replace advice given to you by your health care provider. Make sure you discuss any questions you have with your health care provider. Document Revised: 04/06/2020 Document Reviewed: 02/12/2020 [employer] Patient Education ? 2022 [employer]. [facility] Coding Summaryon 12-19-2022 Coding Summary HTMLBase 64 XykkgvzoCUb9eFr+PGhlY WQ+GV8EVHOpP16duTEugU 5lR6LHFXbUAobiENGRLCz AFhWzamWuSK7wcNCwKRCc IC8+ZY9aJSIuHnjmrANwj 6C8gMM2C12eoj4dCUbvsP T9WVZtIjTpyjblm3dmxHe 6IDcuNmluOyBt SMPotH54RDQ0dI34Of82p KFqwTTwo6xwbNf2DmLeKY AiFIT4aWpoDQvqs2FpQOD hE09khBFgf7R4 NTInyJjftCFeQsMxyFR0v C4dAHufvgnau6swrdrgQn p0wj90uOSiv9O4uHV9V6S pbiA4SSQmmGLf YdmnmPVInY2zpqdlw4mle wotBjZeVIBuNTj9LUy1DF XeoBzdByXyXJ65RRJ5VVF ojpMzP2ZpFWKo zEvlQqG4d1S7Fx6FN4PJU hnfJ1QABLECPAyuoFS+PC 50xq18R1WqQrljLyj1VKE tSHC3cMW5iZ2v ERHkRBdvn2D0oRT1U0Lif pAcfg4mx1chGAInROhgJ7 3rbAUhr9P6IMNgqZC0PEC adJagJwFsrZ78 Oyc+VIPtyPuez9LtXsozd 2lhn4xnbCb0IjefUOStbw ZssYxoADA0j6YgPy7iYSM pjZA5pOX8nW0t SdPzGlL0IXkcA436McXdi ANwJardH21yL3HhwGR+PH VxZyp1TTLfbBigLL6mH2Z hZGRpbmctbGVm vJgqZR0gSIRqnmykPEUgr M8wPRGeR3x1HgGkOtB6ZA qsW5ZoDNUwfcrbPr66aK2 eSgZjDgF5SUbs J5AhyhM2OGYywOGzUFhgM GB9T64uo3C7IOOtXMHoIQ T6rQW9mD5eiCgvjoscyNW mdDsgdmVydGlj PJbuANcnT065MXLyrEtrA kNvZGluZyBEYXRlOiAgMD UvMjQvMjAyMzwvdGQ+PHR lUQZ9dIfsQSHc oOCsZHerEd3tdScvkUapZ X4eMRFdtimeDTSqgM6cAI JblRDsdBhbMK2bAFBdshs pb431FtLnMST9 YFJngWGxP6DypM1kHiMcH EBxBRIjF4XvgHKsQXonP5 19ZYxpGtP6ANOdmpKtN8Z sLWFsaWduOiB0 i0E8Eh9Jr5RqtvaoY0Xvb SXfSlRqUnsfSQj3O5MzTw wvdHI+XA22JZIwJE52RWi 2QNY2uTalNObg ORZhO1YlmG1mHnDdSILgZ GRkOyc+PHRhYmxlIHdpZH RoPScxMDAlJyBzdHlsZT0 rPd6bRJWvRCRl wZssrIUdJkArb6byVCAfK UayDA9afRloE0PhyDB8JO Fen2l8Qe73F35tQ3GikBI +MYDhuGB7nWW5 cO0jLtTuNuK5KHafP882X gVucYGfGmkhl3ypx8zbaS l7HiC9AMPmayRtdSofOFE 4i7XvGv43P59u IHdpZHRoPSIxNSUiIHZhb Ulwko2ufM2fRx8+PGNvbC U2wJL3sW0fHoQhPyN8CSh hC208AsHlyGKy Ffcub7sgb4kiuWm3CtMwY UBwdmCvgKevRXN7o0KtLv 76J2MvtXumb4MiDfg1md5 3bALih6M2kYL5 W7YvNWMfogsdhUKxrSxdM O4nKWCqsweaYWSfeH1hED PeT8n4KjRfPzE5WXxwE3S cyxB2BRVywNDf VVJikSRUmT4imlhnv3drc hwwToVjRLEmSVk3YMb5PT CcaOviAeBhFVD2HpI4DKF 3mMItcJ6yeRgk paswlD8lWwi+CYJ9sKCep QBWCY7rEdvdfZI+PHRkIH T2lMtiRSehNCMmpR1bQOM tM6q2LiWjSyQ7 RLqiT1SnsbP6OKQqxCHeF YTkePIOnH3dnvzbt2nwbd jwOwZuQYBfYYs8SXw3DER saWduOiBsZWZ0 AjB8OSO1fSEmjC9fzIcnu uklmX3bHyj+QmlydGggRG K0LCq6S5KaQos0EEGkeTj oQB9cbMSxKSqx Eu8zzSgrxYewBR5rMWYmr wxxz223LwFcw3qnVSPtwT SnZCtlPMF0O53oy3Y7HHG nFFTsQQW2hQV5 nT2yrDqaazwaeJDrrYwmu jQvlGcyWZleXLebF613RP ZcmAvwGsZhMMm3C2WsZct 8UNQyqYvpRS3r bNUyFUxyWv0flUitwOhuA Q8sMIZinjqfr275RyYbz5 ihLHLydSEiLKdiBSG1D16 ok4C1BWXnRKJo QBH3mXL0kF4xnXqcvnyig GVmdDsgdmVydGljYWwtYW xjR279STZmwDavVcFjuJw 5K4NwMpd5QIWe pJzfCW3gdAApFVbsHg0sh NeesUlsHG3cKMJwkwiwk4 82QbOxd3cyIBUvgYYmQFt zHFR7E69bu1Y5 WQNtYXPrOTD4mPG0fA8dc GlnbjogbGVmdDsgdmVydG krXGvaUXsqB299VOTbpQr nPlBhdGllbnQg OGgrAXz4H5FgBlwkuJF+P W08EDPzZL78eDVbvLYdi2 gttFw3IeRtREIzIQT9qBr kQAapl1PaJBEb A79gcDHnr5F1PGJucQmzh OFhIeFfyAM3xV4eZDidgj noh0zvvritKbxqg3qine0 2bQ00X93qOFwk ZHRoPSIzMCUiIHZhbGlnb c1dnY5oUn3+BHTnnKG5pJ T2vX5cWMZeStO1EUcuD24 9InRvcCIvPjxj k1pgq2sgwGg7HqP6WHTlf lQskTbyTCF5d4WkDs87V9 9sIHdpZHRoPSIyMCUiIHZ orJavoa1ldF5l Ii8+QAMvxXD4oQI6aR6vW fYxXaF6IDjhN335OjEgcG MbKguhO80kG0ZrvFY+PHR gJwp4XYSvqRrf AS6moFZaFXgdHc9bPNV7F yUyQeQqKJunS8VzBPTcgx ipzhmmyIX8TUFaXPEcsP3 1Jl7jqWywBMOi sDAZgG4ydvymi9ewapkaV cYxXSFnISp4AUn1JMDymU bwUwZmVPF1FeA8DAG5jFK jjY8abLabpzmg qD8xA5AlYECupohuEq83c J1gLtWzYkO3WSsxJjt+TU mRHYUGFWZEAOMJGM5OYZw ZX97EHP33BP22 rOFsy2M7mBU5E4VyVZHpt nrqyebvaSK9PCHrXBHlxG 91jLVvMFdoMb6my3Z9s04 8XOPfYZYfzN69 Bn8wfIydRWYcvLUBtW8ym lcqo2jivmjiYeIwXNQeBU m9UMe7NBMhmPoaPaPvYVX 5ScG0QNP4sFUx gV2zvJkkkmuryG0gIhx+M DMvMDQvMTkzNTwvdGQ+PH IvNQE5bOudJPugWOYxuK8 oBYCvH1f6VfPg HoY1ZZgvY9ViWSYzchcmQ d99eJ9wDvQrMeM2YIblS9 AurmA0YCIitBTzHOdiFBN 6K70cd3B4CUCs RROhWPD7pRW9nA5snVnkr jogbGVmdDsgdmVydGljYW lyKRdoA953DMHgoHjwFti 5NJzzGGAyTK22 HO94oGZbt0U4bHJ3Y8PdZ YOvetjzsslquDE1TAYqDY FxoB49oAYuQLagTr4ho4Z 0l131RBErWELb zY38Ol1drLhcFDXxhELKu F0uenloh9ullzhfGdHlPI FbFVo4YYt9EGLkvYtlHmT mMOG8CsT2ATA3 tBQwaT9pcIwcudzxuQ9bE yc+TUFMRTwvdGQ+PHRkIH D3rLdlMIjiFDQesF2dRFY eA4k3EfWvSzX9 VQtrF6DrHGFiveqgYr73a O9eToJhDrE0BErqV9Mzjd A9TXIlsCFkNJgjSFC8B45 ix8M8OAQpORUv CZK1qIN9tQ8hgNvxjpeco GVmdDsgdmVydGljYWwtYW rsC035BPNgbQdlAjZzwAN HrIQzZLR6DD98 CD56Y1BlTghlaGIbhGN+P HRhYmxlIHdpZHRoPScxMD WnWqLdkJhqOS5aYu4aQHU yLWNvbGxhcHNl BjFun5jySWXhIKktHV9mn YmrX7AipQV5KGPqn8b2Nf 35T32iA1FzqZO+PGNvbCB 1kML8pX7sPpSe SpV9MLejX115TjPljIQzU ubvl8hro4ytuYg4IcOmHS EinaDgvSuyBPO3b1FpMv2 8P57bTSknHSZb XXCzFERkQFDslGrtmx4mb G9wIi8+XMGbcGP2eZP5yI 7wNaNiUiD4HQukD166MmO nnQWgEtpzS05w P6IrvDB+SYMgQnk4FDEac SgiSG6xiCNjWWimQz7rUP Y8QuTkMqQqGWfhA9QjACU pbmctcmlnaHQ6 BIEoBXRwgL55Dh7gwGjcI b0rEPNzUJV0CZExaKDbV4 NwmI5fVbYiKELeMCZjS5V iiVLjXUquJ616 AZmtTuT2LWMuyjBtZ2ItU XVkeNhyDxH2q1Z4Mk9RqO rujEQtTP9xZqLcSOh6M0D eMoj2XOOceFjz YK4laSUwWTncSk0mkSxhu GzzQH0qKUEllganz750Ib Ewq6dqMJAmpHPiXSrhKOS 9A93pp4K8DNJo WNYaSUQ9gZO3tG1anFpkk jogbGVmdDsgdmVydGljYW lzQDoxF096CDHfnQqoTmH WTtm1F2WeAmm8 FVHjsCwcOP9rsSSnWTkaB r5qlGhnxRbdJU0hDCKdrs upq331PpTcx6ciEBRaqER eJNpjLKE6T22x m8W9ARTyQCZeQDO9kCK5z A8auQhvaphnkXZpfDmjfo EjjOfxPZjfCFmkK077LOK xdLphGv0TKzu1 Z7SnFhj1IBNyiLniWC6qf RXvUGnqBo9izDapyDcmNC 3jSBVrywdcw546YkOkl7d kIDEwcHQgVGlt CRL4P11fi0R8JMGnWGVbV VE6nDH8aP5msZalhnmimL VmdDsgdmVydGljYWwtYWx lR847JSBdjSrt PlBheWVyOjwvdGQ+PC90c i05T1HqDpltIwb4IKBuXF C6hIW6dZ4jPMOmNYfad3K 0jUO5R8SkfyIb ci1 (more content not included)... [facility] 12-18-19 [facility] Case Information Case Priority: None Programs: -- Referral Source: Diversity Specialist Referral Reason: Care coordination Case Type: Transition [...] Discharge: 12/14/2022 Follow-up appointment scheduled? Yes. Lisbet Lagos on 12/21/2022 at 1:00 PM Did you [...] nausea or vomiting noted. Patient denies any lightheaded/dizziness . Patient is eating and drinking well. No blood noted in stool. No changes in sleeping pattern noted. Reviewed the following appointment with patient: with Lisbet Lagos on 12/21/2022 at 1:00 PM. Patient denies any questions or concerns. Patient currently at [facility] unable to provide patient with contact number, but did advise patient to call office and ask to speak with healthcare administration intern if he had any questions or concerns. Communication Events Date: December 17, 2022 Method: Phone call Type: Outbound Duration (min): 5 Outcome: Case discussion Contact Type: Patient Contact Name: RY LERNER Notes: [facility] #1-see summary note. Created By: Ezequiel PERSAUD, Sandra Calix [facility] CBC AUTO DIFFon 12-14-2022 BASO # 0.0 103/ul Normal 0.0-0.1 [facility] Comment on above: Performed By: #### C BC #### [facility] [address] [place] [address] Dr. Rashmi Nolan Basophils/100 WBC (Bld) 0.6 % Normal 0.2-2.0 [facility] Comment on above: Performed By: #### C BC #### [facility] [address] [place] [address] Dr. Rashmi Nolan EO # 0.4 103/ul Normal 0.0-0.7 [facility] Comment on above: Performed By: #### C BC #### [facility] [address] [address] [address] Rashmi Nolan Eosinophils/100 WBC (Bld) 11.9 % Critically high 0.9-7.0 [facility] Comment on above: Performed By: #### C BC #### [facility] [address] [address] [address] Rashmi Nolan Erythrocyte distribution width (RBC) [Ratio] 15.2 % Critically high 11.0-15.0 [facility] Comment on above: Performed By: #### C BC #### [facility] [address] [place] [address] Dr. Rashmi Nolan Hematocrit (Bld) [Volume fraction] 26.3 % Critically low 42.0-54.0 [facility] Comment on above: Performed By: #### C BC #### [facility] [address] [place] [address] Dr. Rashmi Nolan Hemoglobin (Bld) [Mass/Vol] 8.9 g/dL Critically low 14.0-18.0 [facility] Comment on above: Performed By: #### C BC #### [facility] [address] [place] [address] Dr. Rashmi Nolan IG # 0.01 10e3/ul Normal 0.00-0.03 [facility] Comment on above: Performed By: #### C BC #### [facility] [address] [place] [address] Dr. Rashmi Nolan IG % 0.3 % Normal 0.0-0.5 [facility] Comment on above: Performed By: #### C BC #### [facility] [address] [place] [address] Dr. Rashmi Nolan LYMPH # 0.8 103/ul Critically low 1.2-3.8 [facility] Comment on above: Performed By: #### C BC #### [facility] [address] [place] [address] Dr. Rashmi Nolan Lymphocytes/100 WBC (Bld) 25.1 % Normal 20.5-60.0 [facility] Comment on above: Performed By: #### C BC #### [facility] [address] [place] [address] Dr. Rashmi Nolan MANUAL DIFF REQ NO Normal [facility] Comment on above: Performed By: #### C BC #### [facility] [address] [place] [address] Dr. Rashmi Nolan MCH (RBC) [Entitic mass] 33.0 pg Normal 25.9-34.0 [facility] Comment on above: Performed By: #### C BC #### [facility] [address] [place] [address] Dr. Rashmi Nolan MCHC (RBC) [Mass/Vol] 33.8 g/dL Normal 29.9-35.2 [facility] Comment on above: Performed By: #### C BC #### [facility] [address] [place] [address] Dr. Rashmi Nolan MCV (RBC) [Entitic vol] 97.4 fL Critically high 80.0-94.0 [facility] Comment on above: Performed By: #### C BC #### [facility] [address] [place] [address] Dr. Rashmi Nolan MONO # 0.3 103/ul Normal 0.3-0.8 [facility] Comment on above: Performed By: #### C BC #### [facility] [address] [place] [address] Dr. Rashmi Nolan Monocytes/100 WBC (Bld) 9.0 % Normal 1.7-12.0 [facility] Comment on above: Performed By: #### C BC #### [facility] [address] [place] [address] Dr. Rashmi Nolan NEUT # 1.7 103/ul Normal 1.4-6.5 [facility] Comment on above: Performed By: #### C BC #### [facility] [address] [place] [address] Dr. Rashmi Nolan Neutrophils/100 WBC (Bld) 53.1 % Normal 43.0-75.0 [facility] Comment on above: Performed By: #### C BC #### [facility] [address] [place] [address] Dr. Rashmi Nolan Platelet mean volume (Bld) [Entitic vol] 10.2 fL Normal 9.5-13.5 [facility] Comment on above: Performed By: #### C BC #### [facility] [address] [place] [address] Dr. Rashmi Nolan PLT 139 103/ul Critically low 150-450 [facility] Comment on above: Performed By: #### C BC #### [facility] [address] [place], [place] [address] Dr. Rashmi Nolan RBC 2.70 106/ul Critically low 4.70-6.10 [facility] Comment on above: Performed By: #### C BC #### [facility] [address] [place], [place] [address] Dr. Rashmi Nolan WBC 3.1 103/ul Critically low 4.0-11.0 [facility] Comment on above: Performed By: #### C BC #### [facility] [address] [place], [place] [address] Dr. Rashmi Nolan [facility] Intraoperative Recordon 12-14-2022 [facility] Intraoperative Record [facility] Intra-Op Record Summary Primary Physician: Ward Martinez DO Finalized Date/Time: 12/14/22 09:30:19 Pt. Name: RY LERNER/Sex: 1935 MALE Med Rec #: [id number] Physician: Ward Martinez DO Financial #: [id number] Pt. Type: D Room/Bed: / Admit/Disch: 12/10/22 [...] Andrew DO Role Performed Surgeon - Primary Laundry Sorter Laundry Sorter Time In 12/10/22 15:05:00 12/10/22 14:54:00 12/10/22 14:54:00 Time Out 12/10/22 15:30:00 12/10/22 15:30:00 12/10/22 15:30:00 Procedure Carpal Tunnel Carpal Tunnel Carpal Tunnel Release(Left) Release(Left) Release(Left) Last Modified By: Maile Palmer RN, Barbara RN Long, Barbara RN 12/10/22 15:29:30 12/10/22 15:29:30 12/10/22 15:29:30 Entry 4 Entry 5 Case Attendee Macie Licea CST, CST, Brandi Role Performed Stamping Die Maker Scrub Personnel Time In 12/10/22 14:54:00 12/10/22 [...] By Maile Palmer RN Scrub 10% Povidone-Iodine Cowan Prep Area (Im.270) Arm lower Prep Area [...] Counts (more content not included)... Normal [facility] Outside Colonoscopyon 2022 Outside Colonoscopy [id number]#1 .00CD:127 [facility] Outside [facility] Correspo ndenceon 12-14-2022 Outside Hospital Correspondence [id number]#1 .00CD:127 Normal [facility] Outside [facility] Correspondence 36. [id number]#1 .00CD:127 Normal [facility] Outside [facility] Correspondence 37. [id number]#1 .00CD:127 Normal [facility] Outside [facility] Correspondence . [id number]#1 .00CD:127 Normal [facility] Outside [facility] Correspondence . [id number]#1 .00CD:127 Normal [facility] PROF CHEM 8 (BAS METB)on Anion gap [Moles/Vol] 12.6 mmol/L Normal [facility] Comment on above: Performed By: #### B MP #### [facility] [address] [place] [address] [address] Rashmi Nolan Calcium [Mass/Vol] 9.7 mg/dL Normal 8.5-10.1 [facility] Comment on above: Performed By: #### B MP #### [facility] [address] [place] [address] [address] Rashmi Nolan Chloride [Moles/Vol] 108 mmol/L Critically high 98-107 [facility] Comment on above: Performed By: #### B MP #### [facility] [address] [place] [address] [address] Rashmi Nolan CO2 [Moles/Vol] 24.5 mmol/L Normal 21.0-32.0 [facility] Comment on above: Performed By: #### B MP #### [facility] [address] [place] [address] [address] Rashmi Nolan Creatinine [Mass/Vol] 1.68 mg/dL Critically high 0.70-1.30 [facility] Comment on above: Performed By: #### B MP #### [facility] [address] [place] [address] [address] Rashmi Nolan EGFR-AF CHINESE 47 mL/min/1.73m2 Critically low >=60 [facility] [facility] Comment on above: Performed By: #### B MP #### [facility] [address] [place] [address] Dr. Rashmi Nolan EGFR-NON AF CHINESE 39 mL/min/1.73m2 Critically low >=60 [facility] Comment on above: Performed By: #### B MP #### [facility] [address] [address] [address] Rashmi Nolan Glucose [Mass/Vol] 91 mg/dL Normal 74-106 [facility] Comment on above: Performed By: #### B MP #### [facility] [address] [address] [address] Rashmi Nolan Potassium [Moles/Vol] 5.1 mmol/L Normal 3.5-5.1 [facility] Comment on above: Performed By: #### B MP #### [facility] [address] [place] [address] Dr. Rashmi Nolan Sodium [Moles/Vol] 140 mmol/L Normal 136-145 [facility] Comment on above: Performed By: #### B MP #### [facility] [address] [place] [address] Dr. Rashmi Nolan Urea nitrogen [Mass/Vol] 27.0 mg/dL Critically high 7.0-18.0 [facility] Comment on above: Performed By: #### B MP #### [facility] [address] [place] [address] Dr. Rashmi Nolan Urea nitrogen/Creatinine [Mass ratio] 16.1 mg/mg Normal [facility] Comment on above: Performed By: #### B MP #### [facility] [address] [place] [address] Dr. Rashmi Nolan Transfer Inon 12-14-2022 Transfer In [id number]:127 Normal [facility] CBC AUTO DIFFon 12-13-2022 BASO # 0.0 103/ul Normal 0.0-0.1 [facility] Comment on above: Performed By: #### C BC #### [facility] [address] [address] [address] Rashmi Nolan Basophils/100 WBC (Bld) 0.6 % Normal 0.2-2.0 [facility] Comment on above: Performed By: #### C BC #### [facility] [address] [place] [address] Dr. Rashmi Nolan EO # 0.4 103/ul Normal 0.0-0.7 [facility] Comment on above: Performed By: #### C BC #### [facility] [address] [place] [address] Dr. Rashmi Nolan Eosinophils/100 WBC (Bld) 10.3 % Critically high 0.9-7.0 [facility] Comment on above: Performed By: #### C BC #### [facility] [address] [place] [address] Dr. Rashmi Nolan Erythrocyte distribution width (RBC) [Ratio] 15.8 % Critically high 11.0-15.0 [facility] Comment on above: Performed By: #### C BC #### [facility] [address] [place] [address] Dr. Rashmi Nolan Hematocrit (Bld) [Volume fraction] 25.7 % Critically low 42.0-54.0 [facility] Comment on above: Performed By: #### C BC #### [facility] [address] [place] [address] Dr. Rashmi Nolan Hemoglobin (Bld) [Mass/Vol] 8.5 g/dL Critically low 14.0-18.0 [facility] Comment on above: Performed By: #### C BC #### [facility] [address] [place] [address] Dr. Rashmi Nolan IG # 0.00 10e3/ul Normal 0.00-0.03 [facility] Comment on above: Performed By: #### C BC #### [facility] [address] [place] [address] Dr. Rashmi Nolan IG % 0.0 % Normal 0.0-0.5 [facility] Comment on above: Performed By: #### C BC #### [facility] [address] [address] [address] Rashmi Nolan LYMPH # 0.8 103/ul Critically low 1.2-3.8 [facility] Comment on above: Performed By: #### C BC #### [facility] [address] [place] [address] Dr. Rashmi Nolan Lymphocytes/100 WBC (Bld) 23.5 % Normal 20.5-60.0 [facility] Comment on above: Performed By: #### C BC #### [facility] [address] [place] [address] Dr. Rashmi Nolan MANUAL DIFF REQ NO Normal [facility] Comment on above: Performed By: #### C BC #### [facility] [address] [place] [address] Dr. Rashmi Nolan MCH (RBC) [Entitic mass] 32.9 pg Normal 25.9-34.0 [facility] Comment on above: Performed By: #### C BC #### [facility] [address] [place] [address] Dr. Rashmi Nolan MCHC (RBC) [Mass/Vol] 33.1 g/dL Normal 29.9-35.2 [facility] Comment on above: Performed By: #### C BC #### [facility] [address] [place] [address] Dr. Rashmi Nolan MCV (RBC) [Entitic vol] 99.6 fL Critically high 80.0-94.0 [facility] Comment on above: Performed By: #### C BC #### [facility] [address] [place] [address] Dr. Rashmi Nolan MONO # 0.3 103/ul Normal 0.3-0.8 [facility] Comment on above: Performed By: #### C BC #### [facility] [address] [place] [address] Dr. Rashmi Nolan Monocytes/100 WBC (Bld) 8.9 % Normal 1.7-12.0 [facility] Comment on above: Performed By: #### C BC #### [facility] [address] [address] [address] Rashmi Nolan NEUT # 2.0 103/ul Normal 1.4-6.5 [facility] Comment on above: Performed By: #### C BC #### [facility] [address] [address] [address] Rashmi Nolan Neutrophils/100 WBC (Bld) 56.7 % Normal 43.0-75.0 [facility] Comment on above: Performed By: #### C BC #### [facility] [address] [address] [address] Rashmi Nolan Platelet mean volume (Bld) [Entitic vol] 10.5 fL Normal 9.5-13.5 [facility] Comment on above: Performed By: #### C BC #### [facility] [address] [place] [address] Dr. Rashmi Nolan PLT 134 103/ul Critically low 150-450 [facility] Comment on above: Performed By: #### C BC #### [facility] [address] [address] [address] Rashmi Nolan RBC 2.58 106/ul Critically low 4.70-6.10 [facility] Comment on above: Performed By: #### C BC #### [facility] [address] [place] [address] Dr. Rashmi Nolan WBC 3.6 103/ul Critically low 4.0-11.0 [facility] Comment on above: Performed By: #### C BC #### [facility] [address] [place] [address] Dr. Rashmi Nolan PROF CHEM 8 (BAS METB)on Anion gap [Moles/Vol] 11.7 mmol/L Normal [facility] Comment on above: Performed By: #### C BC #### [facility] [address] [place] [address] Dr. Rashmi Nolan Calcium [Mass/Vol] 9.5 mg/dL Normal 8.5-10.1 [facility] Comment on above: Performed By: #### C BC #### [facility] [address] [address] [address] Rashmi Nolan Chloride [Moles/Vol] 110 mmol/L Critically high 98-107 [facility] Comment on above: Performed By: #### C BC #### [facility] [address] [address] [address] Rashmi Nolan CO2 [Moles/Vol] 25.1 mmol/L Normal 21.0-32.0 [facility] Comment on above: Performed By: #### C BC #### [facility] [address] [address] [address] Rashmi Nolan Creatinine [Mass/Vol] 1.69 mg/dL Critically high 0.70-1.30 [facility] Comment on above: Performed By: #### C BC #### [facility] [address] [address] [address] Rashmi Nolan EGFR-AF CHINESE 47 mL/min/1.73m2 Critically low >=60 [facility] Comment on above: Performed By: #### C BC #### [facility] [address] [address] [address] Rashmi Nolan EGFR-NON AF CHINESE 38 mL/min/1.73m2 Critically low >=60 [facility] Comment on above: Performed By: #### C BC #### [facility] [address] [address] [address] Rashmi Nolan Glucose [Mass/Vol] 93 mg/dL Normal 74-106 [facility] Comment on above: Performed By: #### C BC #### [facility] [address] [address] [address] Rashmi Nolan Potassium [Moles/Vol] 5.8 mmol/L Critically high 3.5-5.1 [facility] Comment on above: Performed By: #### C BC #### [facility] [address] [address] [address] Rashmi Nolan Sodium [Moles/Vol] 141 mmol/L Normal 136-145 [facility] Comment on above: Performed By: #### C BC #### [facility] [address] [address] [address] Rashmi Nolan Urea nitrogen [Mass/Vol] 35.0 mg/dL Critically high 7.0-18.0 [facility] Comment on above: Performed By: #### C BC #### [facility] [address] [place] [address] Dr. Rashmi Nolan Urea nitrogen/Creatinine [Mass ratio] 20.7 mg/mg Normal [facility] Comment on above: Performed By: #### C BC #### [facility] [address] [place] [address] Dr. Rashmi Nolan ABO RH RETYPEon 12-12-2022 ABO and Rh group Nom (Bld) DONE Normal [facility] Comment on above: Performed By: #### C BC #### [facility] [address] [place] [address] Dr. Rashmi Nolan Auth for Release of Medical Recordson 12-12-2022 Auth for Release of Medical Records [id number]:127 Normal [facility] CBC AUTO DIFFon 12-12-2022 BASO # 0.0 103/ul Normal 0.0-0.1 [facility] Comment on above: Performed By: #### C BC #### [facility] [address] [place] [address] Dr. Rashmi Nolan Basophils/100 WBC (Bld) 0.6 % Normal 0.2-2.0 [facility] Comment on above: Performed By: #### C BC #### [facility] [address] [place] [address] Dr. Rashmi Nolan EO # 0.3 103/ul Normal 0.0-0.7 [facility] Comment on above: Performed By: #### C BC #### [facility] [address] [place] [address] Dr. Rashmi Nolan Eosinophils/100 WBC (Bld) 7.6 % Critically high 0.9-7.0 [facility] Comment on above: Performed By: #### C BC #### [facility] [address] [place] [address] Dr. Rashmi Nolan Erythrocyte distribution width (RBC) [Ratio] 16.4 % Critically high 11.0-15.0 [facility] Comment on above: Performed By: #### C BC #### [facility] [address] [place] [address] Dr. Rashmi Nolan Hematocrit (Bld) [Volume fraction] 27.2 % Critically low 42.0-54.0 [facility] Comment on above: Performed By: #### C BC #### [facility] [address] [place] [address] Dr. Rashmi Nolan Hemoglobin (Bld) [Mass/Vol] 9.1 g/dL Critically low 14.0-18.0 [facility] Comment on above: Performed By: #### C BC #### [facility] [address] [place] [address] Dr. Rashmi Nolan IG # 0.01 10e3/ul Normal 0.00-0.03 [facility] Comment on above: Performed By: #### C BC #### [facility] [address] [place] [address] Dr. Rashmi Nolan IG % 0.3 % Normal 0.0-0.5 [facility] Comment on above: Performed By: #### C BC #### [facility] [address] [place] [address] Dr. Rashmi Nolan LYMPH # 0.9 103/ul Critically low 1.2-3.8 [facility] Comment on above: Performed By: #### C BC #### [facility] [address] [place] [address] Dr. Rashmi Nolan Lymphocytes/100 WBC (Bld) 25.3 % Normal 20.5-60.0 [facility] Comment on above: Performed By: #### C BC #### [facility] [address] [place] [address] Dr. Rashmi Nolan MANUAL DIFF REQ NO Normal [facility] Comment on above: Performed By: #### C BC #### [facility] [address] [place] [address] Dr. Rashmi Nolan MCH (RBC) [Entitic mass] 33.0 pg Normal 25.9-34.0 [facility] Comment on above: Performed By: #### C BC #### [facility] [address] [place] [address] Dr. Rashmi Nolan MCHC (RBC) [Mass/Vol] 33.5 g/dL Normal 29.9-35.2 [facility] Comment on above: Performed By: #### C BC #### [facility] [address] [place] [address] Dr. Rashmi Nolan MCV (RBC) [Entitic vol] 98.6 fL Critically high 80.0-94.0 [facility] Comment on above: Performed By: #### C BC #### [facility] [address] [place] [address] Dr. Rashmi Nolan MONO # 0.3 103/ul Normal 0.3-0.8 [facility] Comment on above: Performed By: #### C BC #### [facility] [address] [place] [address] Dr. Rashmi Nolan Monocytes/100 WBC (Bld) 8.1 % Normal 1.7-12.0 [facility] Comment on above: Performed By: #### C BC #### [facility] [address] [place] [address] Dr. Rashmi Nolan NEUT # 2.0 103/ul Normal 1.4-6.5 [facility] Comment on above: Performed By: #### C BC #### [facility] [address] [place] [address] Dr. Rashmi Nolan Neutrophils/100 WBC (Bld) 58.1 % Normal 43.0-75.0 [facility] Comment on above: Performed By: #### C BC #### [facility] [address] [place] [address] Dr. Rashmi Nolan Platelet mean volume (Bld) [Entitic vol] 10.0 fL Normal 9.5-13.5 [facility] Comment on above: Performed By: #### C BC #### [facility] [address] [place] [address] Dr. Rashmi Nolan PLT 147 103/ul Critically low 150-450 [facility] Comment on above: Performed By: #### C BC #### [facility] [address] [place] [address] Dr. Rashmi Nolan RBC 2.76 106/ul Critically low 4.70-6.10 [facility] Comment on above: Performed By: #### C BC #### [facility] [address] [place] [address] Dr. Rashmi Nolan WBC 3.4 103/ul Critically low 4.0-11.0 [facility] Comment on above: Performed By: #### C BC #### [facility] [address] [place] [address] Dr. Rashmi Nolan BASO # 0.0 103/ul Normal 0.0-0.1 [facility] Comment on above: Performed By: #### C BC #### [facility] [address] [place] [address] Dr. Rashmi Nolan Basophils/100 WBC (Bld) 0.6 % Normal 0.2-2.0 [facility] Comment on above: Performed By: #### C BC #### [facility] [address] [place] [address] Dr. Rashmi Nolan EO # 0.2 103/ul Normal 0.0-0.7 [facility] Comment on above: Performed By: #### C BC #### [facility] [address] [place] [address] Dr. Rashmi Nolan Eosinophils/100 WBC (Bld) 6.6 % Normal 0.9-7.0 [facility] Comment on above: Performed By: #### C BC #### [facility] [address] [place] [address] Dr. Rashmi Nolan Erythrocyte distribution width (RBC) [Ratio] 16.4 % Critically high 11.0-15.0 [facility] Comment on above: Performed By: #### C BC #### [facility] [address] [place] [address] Dr. Rashmi Nolan Hematocrit (Bld) [Volume fraction] 26.1 % Critically low 42.0-54.0 [facility] Comment on above: Performed By: #### C BC #### [facility] [address] [place] [address] Dr. Rashmi Nolan Hemoglobin (Bld) [Mass/Vol] 8.5 g/dL Critically low 14.0-18.0 [facility] Comment on above: Result Comment: rcvd . blood Performed By: #### C BC #### [facility] [address] [place] [address] Dr. Rashmi Nolan IG # 0.01 10e3/ul Normal 0.00-0.03 [facility] Comment on above: Performed By: #### C BC #### [facility] [address] [place] [address] Dr. Rashmi Nolan IG % 0.3 % Normal 0.0-0.5 [facility] Comment on above: Performed By: #### C BC #### [facility] [address] [place] [address] Dr. Rashmi Nolan LYMPH # 0.7 103/ul Critically low 1.2-3.8 [facility] Comment on above: Performed By: #### C BC #### [facility] [address] [place] [address] Dr. Rashmi Nolan Lymphocytes/100 WBC (Bld) 20.2 % Critically low 20.5-60.0 [facility] Comment on above: Performed By: #### C BC #### [facility] [address] [place] [address] Dr. Rashmi Nolan MANUAL DIFF REQ NO Normal [facility] Comment on above: Performed By: #### C BC #### [facility] [address] [place] [address] Dr. Rashmi Nolan MCH (RBC) [Entitic mass] 32.7 pg Normal 25.9-34.0 [facility] Comment on above: Performed By: #### C BC #### [facility] [address] [place] [address] Dr. Rashmi Nolan MCHC (RBC) [Mass/Vol] 32.6 g/dL Normal 29.9-35.2 [facility] Comment on above: Performed By: #### C BC #### [facility] [address] [place] [address] Dr. Rashmi Nolan MCV (RBC) [Entitic vol] 100.4 fL Critically high 80.0-94.0 [facility] Comment on above: Performed By: #### C BC #### [facility] [address] [address] [address] Rashmi Nolan MONO # 0.3 103/ul Normal 0.3-0.8 [facility] Comment on above: Performed By: #### C BC #### [facility] [address] [place] [address] Dr. Rashmi Nolan Monocytes/100 WBC (Bld) 7.7 % Normal 1.7-12.0 [facility] Comment on above: Performed By: #### C BC #### [facility] [address] [place] [address] Dr. Rashmi Nolan NEUT # 2.3 103/ul Normal 1.4-6.5 [facility] Comment on above: Performed By: #### C BC #### [facility] [address] [place] [address] Dr. Rashmi Nolan Neutrophils/100 WBC (Bld) 64.6 % Normal 43.0-75.0 [facility] Comment on above: Performed By: #### C BC #### [facility] [address] [place] [address] Dr. Rashmi Nolan Platelet mean volume (Bld) [Entitic vol] 9.9 fL Normal 9.5-13.5 [facility] Comment on above: Performed By: #### C BC #### [facility] [address] [place] [address] Dr. Rashmi Nolan PLT 130 103/ul Critically low 150-450 [facility] Comment on above: Performed By: #### C BC #### [facility] [address] [place] [address] Dr. Rashmi Nolan RBC 2.60 106/ul Critically low 4.70-6.10 [facility] Comment on above: Performed By: #### C BC #### [facility] [address] [place] [address] Dr. Rashmi Nolan WBC 3.6 103/ul Critically low 4.0-11.0 [facility] Comment on above: Performed By: #### C BC #### [facility] [address] [place] [address] Dr. Rashmi Nolan PRBC LEUKOREDUCEDon 12-13-19 ABO and Rh group Nom (Bld) Cross Match Result Compatible Unit Blood Type O Pos Unit Number [id number] Status Information Issued Product ID Red Blood Cells Product Code [id number] Issue Date/Time [id number] Cross Match Result Compatible Unit Blood Type O Pos Unit Number [id number] Status Information Issued Product ID Red Blood Cells Product Code [id number] Issue Date/Time [id number] Normal [facility] Comment on above: Performed By: #### C BC #### [facility] [address] [place] [address] Dr. Rashmi Nolan PROF CHEM 8 (BAS METB)on Anion gap [Moles/Vol] 14.8 mmol/L Normal [facility] Comment on above: Performed By: #### B MP #### [facility] [address] [place] [address] Dr. Rashmi Nolan Calcium [Mass/Vol] 9.2 mg/dL Normal 8.5-10.1 [facility] Comment on above: Performed By: #### B MP #### [facility] [address] [place] [address] Dr. Rashmi Nolan Chloride [Moles/Vol] 110 mmol/L Critically high 98-107 [facility] Comment on above: Performed By: #### B MP #### [facility] [address] [place] [address] Dr. Rashmi Nolan CO2 [Moles/Vol] 23.5 mmol/L Normal 21.0-32.0 [facility] Comment on above: Performed By: #### B MP #### [facility] [address] [address] [address] Rashmi Nolan Creatinine [Mass/Vol] 1.77 mg/dL Critically high 0.70-1.30 [facility] Comment on above: Performed By: #### B MP #### [facility] [address] [address] [address] Rashmi Nolan EGFR-AF CHINESE 44 mL/min/1.73m2 Critically low >=60 [facility] Comment on above: Performed By: #### B MP #### [facility] [address] [address] [address] Rashmi Nolan EGFR-NON AF CHINESE 36 mL/min/1.73m2 Critically low >=60 [facility] Comment on above: Performed By: #### B MP #### [facility] [address] [address] [address] Rashmi Nolan Glucose [Mass/Vol] 103 mg/dL Normal 74-106 [facility] Comment on above: Performed By: #### B MP #### [facility] [address] [address] [address] Rashmi Nolan Potassium [Moles/Vol] 5.3 mmol/L Critically high 3.5-5.1 [facility] Comment on above: Performed By: #### B MP #### [facility] [address] [address] [address] Rashmi Nolan Sodium [Moles/Vol] 143 mmol/L Normal 136-145 [facility] Comment on above: Performed By: #### B MP #### [facility] [address] [address] [address] Rashmi Nolan Urea nitrogen [Mass/Vol] 54.0 mg/dL Critically high 7.0-18.0 [facility] Comment on above: Performed By: #### B MP #### [facility] [address] [address] [address] Rashmi Nolan Urea nitrogen/Creatinine [Mass ratio] 30.5 mg/mg Normal [facility] Comment on above: Performed By: #### B MP #### [facility] [address] [address] [address] Rashmi Nolan Auto Diffon 12-11-2022 Basophils/100 WBC (Bld) 0.5 % Normal 0.0-2.0 [facility] Comment on above: Order Comment: Order Added by Discern Expert. Performed By: #### 2 [id number] ####[address] [address] Basophils/Leukocytes Auto (Bld) [Pure # fraction] 0.0 E9/L Normal 0.0-0.2 [facility] Comment on above: Order Comment: Order Added by Discern Expert. Performed By: #### 2 [id number] ####[address] [address] Eosinophils/100 WBC (Bld) 3.4 % Normal 0.0-8.0 [facility] Comment on above: Order Comment: Order Added by Discern Expert. Performed By: #### 2 [id number], [id number] ####[address] [address] Eosinophils/Leukocyte s Auto (Bld) [Pure # fraction] 0.2 E9/L Normal 0.0-0.5 [facility] Comment on above: Order Comment: Order Added by Ronnie Expert. Performed By: #### 2 [id number] ####[address] [address] Lymphocytes/100 WBC (Bld) 17.1 % Normal 14.0-50.0 [facility] Comment on above: Order Comment: Order Added by Discern Expert. Performed By: #### 2 [id number], [id number] ####[address] [address] Lymphocytes/Leukocyte s Auto (Bld) [Pure # fraction] 0.9 E9/L Low 1.0-4.0 [facility] Comment on above: Order Comment: Order Added by Discern Expert. Performed By: #### 2 [id number], [id number] ####[address] [place] [address] Monocytes/100 WBC (Bld) 6.1 % Normal 4.0-14.0 [facility] Comment on above: Order Comment: Order Added by Discern Expert. Performed By: #### 2 [id number], [id number], [id number] ####[address] [address] Monocytes/Leukocytes Auto (Bld) [Pure # fraction] 0.3 E9/L Normal 0.2-1.0 [facility] Comment on above: Order Comment: Order Added by Discern Expert. Performed By: #### 2 [id number], [id number], [id number] ####[address] [address] Neutrophils/100 WBC (Bld) 72.9 % Normal 36.0-75.0 [facility] Comment on above: Order Comment: Order Added by Discern Expert. Performed By: #### 2 784117, [id number], [id number] ####[address] [address] Neutrophils/Leukocyte s Auto (Bld) [Pure # fraction] 3.8 E9/L Normal 2.0-7.5 [facility] Comment on above: Order Comment: Order Added by Discern Expert. Performed By: #### 2 [id number], [id number], [id number] ####[address] [address] CBC AUTO DIFFon 12-11-2022 BASO # 0.0 103/ul Normal 0.0-0.1 [facility] Comment on above: Performed By: #### C BC #### [facility] [address] [place] [address] Dr. Rashmi Nolan Basophils/100 WBC (Bld) 0.4 % Normal 0.2-2.0 [facility] Comment on above: Performed By: #### C BC #### [facility] [address] [place] [address] Dr. Rashmi Nolan EO # 0.2 103/ul Normal 0.0-0.7 [facility] Comment on above: Performed By: #### C BC #### [facility] [address] [place] [address] Dr. Rashmi Nolan Eosinophils/100 WBC (Bld) 5.2 % Normal 0.9-7.0 [facility] Comment on above: Performed By: #### C BC #### [facility] [address] [place] [address] Dr. Rashmi Nolan Erythrocyte distribution width (RBC) [Ratio] 14.6 % Normal 11.0-15.0 [facility] Comment on above: Performed By: #### C BC #### [facility] [address] [place] [address] Dr. Rashmi Nolan Hematocrit (Bld) [Volume fraction] 23.7 % Critically low 42.0-54.0 [facility] Comment on above: Performed By: #### C BC #### [facility] [address] [place] [address] Dr. Rashmi Nolan Hemoglobin (Bld) [Mass/Vol] 7.8 g/dL Critically low 14.0-18.0 [facility] Comment on above: Performed By: #### C BC #### [facility] [address] [place] [address] Dr. Rashmi Nolan IG # 0.01 10e3/ul Normal 0.00-0.03 [facility] Comment on above: Performed By: #### C BC #### [facility] [address] [place] [address] Dr. Rashmi Nolan IG % 0.2 % Normal 0.0-0.5 [facility] Comment on above: Performed By: #### C BC #### [facility] [address] [place] [address] Dr. Rashmi Nolan LYMPH # 0.9 103/ul Critically low 1.2-3.8 [facility] Comment on above: Performed By: #### C BC #### [facility] [address] [place] [address] Dr. Rashmi Nolan Lymphocytes/100 WBC (Bld) 19.6 % Critically low 20.5-60.0 [facility] Comment on above: Performed By: #### C BC #### [facility] [address] [place] [address] Dr. Rashmi Nolan MANUAL DIFF REQ NO Normal [facility] Comment on above: Performed By: #### C BC #### [facility] [address] [place] [address] Dr. Rashmi Nolan MCH (RBC) [Entitic mass] 34.7 pg Critically high 25.9-34.0 [facility] Comment on above: Performed By: #### C BC #### [facility] [address] [place] [address] Dr. Rashmi Nolan MCHC (RBC) [Mass/Vol] 32.9 g/dL Normal 29.9-35.2 [facility] Comment on above: Performed By: #### C BC #### [facility] [address] [place] [address] Dr. Rashmi Nolan MCV (RBC) [Entitic vol] 105.3 fL Critically high 80.0-94.0 [facility] Comment on above: Performed By: #### C BC #### [facility] [address] [place] [address] Dr. Rashmi Nolan MONO # 0.3 103/ul Normal 0.3-0.8 [facility] Comment on above: Performed By: #### C BC #### [facility] [address] [place] [address] Dr. Rashmi Nolan Monocytes/100 WBC (Bld) 7.2 % Normal 1.7-12.0 [facility] Comment on above: Performed By: #### C BC #### [facility] [address] [place] [address] Dr. Rashmi Nolan NEUT # 3.0 103/ul Normal 1.4-6.5 [facility] Comment on above: Performed By: #### C BC #### [facility] [address] [place] [address] Dr. Rashmi Nolan Neutrophils/100 WBC (Bld) 67.4 % Normal 43.0-75.0 [facility] Comment on above: Performed By: #### C BC #### [facility] [address] [place] [address] Dr. Rashmi Nolan Platelet mean volume (Bld) [Entitic vol] 9.8 fL Normal 9.5-13.5 [facility] Comment on above: Performed By: #### C BC #### [facility] [address] [place] [address] Dr. Rashmi Nolan PLT 156 103/ul Normal 150-450 [facility] Comment on above: Performed By: #### C BC #### [facility] [address] [place] [address] Dr. Rashmi Nolan RBC 2.25 106/ul Critically low 4.70-6.10 [facility] Comment on above: Performed By: #### C BC #### [facility] [address] [place] [address] Dr. Rashmi Nolan WBC 4.5 103/ul Normal 4.0-11.0 [facility] Comment on above: Performed By: #### C BC #### [facility] [address] [place] [address] Dr. Rashmi Nolan CBC w/ Auto Diffon 3 Erythrocyte distribution width (RBC) [Ratio] 14.9 % High 10.9-14.2 [facility] Comment on above: Performed By: #### 2 240492, [id number], [id number] #### [facility] [address] [place] [address] Hematocrit (Bld) [Volume fraction] 24.1 % Low 37.7-49.0 [facility] Comment on above: Performed By: #### 2 127939, [id number], [id number] #### [facility] [address] [place] [address] Hemoglobin (Bld) [Mass/Vol] 8.1 g/dL Low 13.5-17.5 [facility] Comment on above: Performed By: #### 2 891957, [id number], [id number] #### [facility] [address] [place] [address] MCH (RBC) [Entitic mass] 34.0 pg Normal 27.0-34.0 [facility] Comment on above: Performed By: #### 2 937867, 0995304, [id number] #### [facility] [address] [place] [address] MCHC (RBC) [Mass/Vol] 33.6 g/dL Normal 31.4-36.0 [facility] Comment on above: Performed By: #### 2 159267, 3588405, [id number] #### [facility] [address] [place] [address] MCV (RBC) [Entitic vol] 101.1 fL High 80.0-100.0 [facility] Comment on above: Performed By: #### 2 128069, [id number], [id number] #### [facility] [address] [place] [address] Platelet mean volume (Bld) [Entitic vol] 8.9 fL Normal 6.4-10.8 [facility] Comment on above: Performed By: #### 2 609609, 4934578, [id number] #### [facility] [address] [place] [address] Platelets (Bld) [#/Vol] 177.0 E9/L Normal 150.0-500.0 [facility] Comment on above: Performed By: #### 2 274646, 3573834, [id number] #### [facility] [address] [place] [address] RBC (Bld) [#/Vol] 2.4 E12/L Low 4.3-5.9 [facility] Comment on above: Performed By: #### 2 706945, 0632831, [id number] #### [facility] [address] [place] [address] WBC corrected for nucl RBC Auto (Bld) [#/Vol] 5.2 E9/L Normal 4.0-11.0 [facility] Comment on above: Performed By: #### 2 409491, 5850277, [id number] #### [facility] [address] [place] [address] CHEMISTRYOrdered By: SYSTEM SYSTEM on 12-11-2022 Iron binding capacity [Mass/Vol] 417 ug/dL High 250 - 400 mcg/dL [facility] Remisol Transferrin [Mass/Vol] 298 mg/dL Normal 200 - 370 mg/dL [facility] Remisol Consent Formson 12-11-2022 Consent Forms [id number] .[id number] Normal [facility] Family Medicine Office/Clini c Noteon 12-11-2022 Family Medicine Office/Clinic Note HPI Staff Noemi is an 87 year old male who presents to establish care. 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 Martinez, Dr. Royal Jordan-Cardiology [facility] Last provider: Dr. Silva [...] he turned 79 years old. Will call [facility] and request records for any colonoscopy in 2015 or more recent. Review of Systems PHQ Score Initial Depression Screen Score: 0 Physical Exam Vitals & Measurements HR: 60(Peripheral) BP: 128/62 SpO2: 98% HT: 70 in HT: 178.5 cm WT: 99 kg WT: 217.8 lb BMI: 31.07 Assessment/Plan 1. Black tarry stools (K92.1: Melena) Ordered: CBC w/ Auto Diff Fibrinogen Lvl [facility] Internal Ambulatory Referral Lab Specimen Collect [id number] PT & PTT Stool Occult Blood Stool Occult Blood TIBC Calculated 2. Family hx of colon cancer (Z80.0: Family history of malignant neoplasm of digestive organs) Ordered: [facility] Internal Ambulatory Referral Lab Specimen Collect [id number] Stool Occult Blood 3. Colon cancer screening (Z12.11: Encounter for screening for malignant neoplasm of colon) Ordered: [facility] Internal Ambulatory Referral Lab Specimen Collect [id number] Stool Occult Blood 4. BMI 31.0-31.9,adult (Z68.31: Body mass index [BMI] 31.0-31.9, adult) Ordered: [facility] Internal Ambulatory Referral Stool Occult Blood Follow-up [...] seeing specialists: Dr. Martinez, Dr. Royal Jordan-Cardiology [facility], [facility] Last provider: Dr. Silva [...] he turned 79 years old. Will call [facility] and request records for any colonoscopy in [...] he had colonoscopy 6-7 years ago at [facility]. will call to access those records. pt has significant family history of colon cancer. will send stool to lab, will draw CBC and clotting studies in office today. will call patient tomorrow to advise if he should stop taking warfarin depending on lab results. all questions answered. RTC as needed Ordered: CBC w/ Auto Diff Fibrinogen Lvl [facility] Internal Ambulatory Referral PT & PTT Stool Occult Blood Stool Occult Blood TIBC Calculated 2. Family hx of colon cancer (Z80.0: Family history of malignant neoplasm of digestive organs) referral to Dr. Nill placed for scope Ordered: [facility] Internal Ambulatory Referral Stool Occult Blood 3. Colon cancer screening (Z12.11: Encounter for screening for malignant neoplasm of colon) see above Ordered: [facility] Internal Ambulatory Referral Stool Occult Blood 4. BMI 31.0-31.9,adult (Z68.31: Body mass index [BMI] 31.0-31.9, adult) BMI education complete Ordered: [facility] Internal Ambulatory Referral Stool Occult Blood Follow-up [...] neoplasm of (more content not included)... Normal [facility] Comment on above: Result Comment: [...] (12/11/22 12:14 PM) Invalid Interpretation Code Negative FT Man Sero PROF 14(COMP METB)on 023 Albumin [Mass/Vol] 3.8 g/dL Normal 3.4-5.0 [facility] Comment on above: Performed By: #### B MP #### [facility] [address] [place] [address] Dr. Rashmi Nolan Albumin/Globulin [Mass ratio] 1.1 {ratio} Normal [facility] Comment on above: Performed By: #### B MP #### [facility] [address] [address] [address] Rashmi Nolan ALP [Catalytic activity/Vol] 178 U/L Critically high 46-116 [facility] Comment on above: Performed By: #### B MP #### [facility] [address] [address] [address] Rashmi Nolan ALT [Catalytic activity/Vol] 17 U/L Normal 16-63 [facility] Comment on above: Performed By: #### B MP #### [facility] [address] [address] [address] Rashmi Nolan Anion gap [Moles/Vol] 15.6 mmol/L Normal [facility] Comment on above: Performed By: #### B MP #### [facility] [address] [place] [address] Dr. Rashmi Nolan AST [Catalytic activity/Vol] 12 U/L Critically low 15-37 [facility] Comment on above: Performed By: #### B MP #### [facility] [address] [address] [address] Rashmi Nolan Bilirubin [Mass/Vol] 0.2 mg/dL Normal 0.2-1.0 [facility] Comment on above: Performed By: #### B MP #### [facility] [address] [address] [address] Rashmi Nolan Calcium [Mass/Vol] 9.5 mg/dL Normal 8.5-10.1 [facility] Comment on above: Performed By: #### B MP #### [facility] [address] [address] [address] Rashmi Nolan Chloride [Moles/Vol] 109 mmol/L Critically high 98-107 [facility] Comment on above: Performed By: #### B MP #### [facility] [address] [address] [address] Rashmi Nolan CO2 [Moles/Vol] 22.5 mmol/L Normal 21.0-32.0 [facility] Comment on above: Performed By: #### B MP #### [facility] [address] [address] [address] Rashmi Nolan Creatinine [Mass/Vol] 2.11 mg/dL Critically high 0.70-1.30 [facility] Comment on above: Performed By: #### B MP #### [facility] [address] [address] [address] Rashmi Nolan EGFR-AF CHINESE 36 mL/min/1.73m2 Critically low >=60 [facility] Comment on above: Performed By: #### B MP #### [facility] [address] [address] [address] Rashmi Nolan EGFR-NON AF CHINESE 30 mL/min/1.73m2 Critically low >=60 [facility] Comment on above: Performed By: #### B MP #### [facility] [address] [address] [address] Rashmi Nolan Globulin (S) [Mass/Vol] 3.4 g/dL Normal [facility] Comment on above: Performed By: #### B MP #### [facility] [address] [address] [address] Rashmi Nolan Glucose [Mass/Vol] 115 mg/dL Critically high 74-106 [facility] Comment on above: Performed By: #### B MP #### [facility] [address] [address] [address] Rashmi Nolan Potassium [Moles/Vol] 5.1 mmol/L Normal 3.5-5.1 [facility] Comment on above: Performed By: #### B MP #### [facility] [address] [address] [address] Rashmi Nolan Protein [Mass/Vol] 7.2 g/dL Normal 6.4-8.2 [facility] Comment on above: Performed By: #### B MP #### [facility] [address] [address] [address] Rashmi Nolan Sodium [Moles/Vol] 142 mmol/L Normal 136-145 [facility] Comment on above: Performed By: #### B MP #### [facility] [address] [address] [address] Rashmi Nolan Urea nitrogen [Mass/Vol] 57.0 mg/dL Critically high 7.0-18.0 [facility] Comment on above: Performed By: #### B MP #### [facility] [address] [address] [address] Rashmi Nolan Urea nitrogen/Creatinine [Mass ratio] 27.0 mg/mg Normal [facility] Comment on above: Performed By: #### B MP #### [facility] [address] [address] [address] Rashmi Nolan PROTIMEon 12-11-2022 INR Coag (PPP) [Relative time] 1.95 {INR} Normal [facility] Comment on above: Performed By: #### P T, PTT #### [facility] [address] [address] [address] Rashmi Nolan INR GUIDELINES SEE BELOW Normal [facility] Comment on above: Result Comment: ENOC RED INR: 2.0 - 3.0 CONDITIONS NOT LISTED BELOW 2.5 - 3.5 FOR PROSTHETIC HEART VALVE REPLACEMENT 2.5 - 3.5 RECURRENT THROMBOSIS Performed By: #### P T, PTT #### [facility] [address] [place] [address] Dr. Rashmi Nolan PT Coag (PPP) [Time] 19.9 s Critically high 9.0-11.6 [facility] Comment on above: Performed By: #### P T, PTT #### [facility] [address] [address] [address] Rashmi Nolan PTTon 12-11-2022 aPTT Coag (Bld) [Time] 30.3 s Normal 22.3-36.2 [facility] Comment on above: Performed By: #### P T, PTT #### [facility] [address] [place] [address] Dr. Rashmi Nolan Stl Oclt Bldon 12-11-2022 Occult Bld Stl Positive Abnormal Negative [facility] Comment on above: Performed By: #### 2 [id number] #### [facility] [address] [place] [address] TIBC Calculatedon 12-11-2022 Iron binding capacity [Mass/Vol] 417 microgram/dL High 250-400 [facility] Comment on above: Performed By: #### 2 172628, [id number], [id number] ####[facility] [address] [place] [address] Transferrin [Mass/Vol] 298 mg/dL Normal 200-370 [facility] Comment on above: Performed By: #### 2 058118, [id number], [id number] ####[facility] [address] [place] [address] TYPE AND SCREENon 12-11-2022 TYPE AND SCREEN Negative Normal [facility] Comment on above: Performed By: #### C BC #### [facility] [address] [place], [place] [id number] Dr. Rashmi Nolan XR CHEST 1 Von 12-11-2022 XR CHEST 1 V EXAMINATION: XR CHES T 1 V HISTORY: Dark stool for 3 [...] Inpatient Patient Summaryon 12-10-2022 [place] [address] Patient Discharge Instructions Name: RY LERNER : 1935 Patient Address: [address] [place] [address] Primary Care Provider: Name: John Nieves MD After you are discharged if you find you have any questions, please, call [phone] ext [phone] to speak to a nurse. 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 If you or anyone you know is experiencing suicidal thoughts, mental health, alcohol and/or drug addiction problems; contact the Mental Health & Recovery Board [facility] 18/02 Crisis Hotline -Text 4HUHD ou 416770. If you received any narcotics, sedation, or [...] decisions or sign any legal documents [facility] would like to thank you for allowing us to assist you with your healthcare needs. The following includes patient education materials and information regarding your injury/illness. RY LERNER has been given the following list of follow-up instructions, prescriptions, and patient education materials: Follow-up Instructions With: Address: When: Ward Martinez [address] [place] [address], [address] [place] [address] Business (1) 12/18/2022 1:30 PM Medications During [...] 3. DO NOT lift heavy objects or research psychologist forcefully with your hand 4. Change your [...] or concerns, please call the office at [phone] 7. Follow up as scheduled Viruses or [...] and Prevention Septe (more content not included)... [facility] 0 12-10-2022 [facility] Preoperative Record [facility] Pre-Op Record Summary Primary Physician: Ward Martinez DO Finalized Date/Time: 12/10/22 15:29:41 Pt. Name: RY LERNER./Sex: 1935 MALE Med Rec #: [id number] Physician: Ward Martinez DO Financial #: [id number] Pt. Type: D Room/Bed: / Admit/Disch: 12/10/22 [...] By: Maile Palmer RN 12/10/22 15:29 Normal [facility] Patient Handouton 12-10-[address] 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 Keep your hand elevated above your elbow for the first 24 hours after surgery 2. Wiggle your fingers frequently while awake 3. DO NOT lift heavy objects or research psychologist forcefully with your hand 4. Change your [...] or concerns, please call the office at [phone] 7. Follow up as scheduled Normal [facility] 36on 11-13-2022 36 Potassium was high, renal function is stable. Can stop taking potassium supplement and repeat BMP in one week. Normal [facility] Physician Referralon 023 Physician Referral [id number] #[id number]:127 Normal [facility] Physician Referral [id number] .[id number]:127 Normal [facility] MAGNESIUMon 11-06-2022 Magnesium [Mass/Vol] 2.2 mg/dL Normal 1.8-2.4 [facility] Comment on above: Performed By: #### B MP MG #### [facility] [address] [address] [address] Rashmi Nolan Office Visiton 11-06-2022 Follow-up visit [id number] Ry Lerner 1935 [facility] Provider Department [place] 11/06/2022 [id number]-LCQEYERYNSOLIS VALLES CARD [facility] Family History Family history unknown: Yes Level of Service:07341 MD OFFICE/OUTPATIENT ESTABLISHED MOD MDM 30-39 MIN Reason for Visit and Comments: Atrial Fibrillation [80] Hypertension [979287] Normal [facility] PROF CHEM 8 (BAS METB)on Anion gap [Moles/Vol] 15.0 mmol/L Normal [facility] Comment on above: Performed By: #### B MP, MG #### [facility] [address] [place] [address] Dr. Rashmi Nolan Calcium [Mass/Vol] 10.0 mg/dL Normal 8.5-10.1 [facility] Comment on above: Performed By: #### B MP, MG #### [facility] [address] [place] [address] Dr. Rashmi Nolan Chloride [Moles/Vol] 108 mmol/L Critically high 98-107 [facility] Comment on above: Performed By: #### B MP, MG #### [facility] [address] [address] [address] Rashmi Nolan CO2 [Moles/Vol] 25.4 mmol/L Normal 21.0-32.0 [facility] Comment on above: Performed By: #### B MP, MG #### [facility] [address] [address] [address] Rashmi Nolan Creatinine [Mass/Vol] 1.98 mg/dL Critically high 0.70-1.30 [facility] Comment on above: Performed By: #### B MP, MG #### [facility] [address] [address] [address] Rashmi Nolan EGFR-AF CHINESE 39 mL/min/1.73m2 Critically low >=60 [facility] Comment on above: Performed By: #### B MP, MG #### [facility] [address] [place] [address] Dr. Rashmi Nolan EGFR-NON AF CHINESE 32 mL/min/1.73m2 Critically low >=60 [facility] Comment on above: Performed By: #### B MP, MG #### [facility] [address] [address] [address] Rashmi Nolan Glucose [Mass/Vol] 99 mg/dL Normal 74-106 [facility] Comment on above: Performed By: #### B MP, MG #### [facility] [address] [address] [address] Rashmi Nolan Potassium [Moles/Vol] 5.4 mmol/L Critically high 3.5-5.1 [facility] Comment on above: Performed By: #### B MP, MG #### [facility] [address] [address] [address] Rashmi Nolan Sodium [Moles/Vol] 143 mmol/L Normal 136-145 [facility] Comment on above: Performed By: #### B MP, MG #### [facility] [address] [place] [address] Dr. Rashmi Nolan Urea nitrogen [Mass/Vol] 52.0 mg/dL Critically high 7.0-18.0 [facility] Comment on above: Performed By: #### B MP, MG #### [facility] [address] [place] [address] Dr. Rashmi Nolan Urea nitrogen/Creatinine [Mass ratio] 26.3 mg/mg Normal [facility] Comment on above: Performed By: #### B MP, MG #### [facility] [facility] [address] [place] [address] Dr. Rashmi Nolan EMG Electromyographyon 10-16 EMG Electromyography [id number] .[id number]:127 Normal [facility] EMG Electromyography [id number] .[id number]:127 Normal [facility] Lab Reportson 10-16-2022 Lab Reports [id number]. [id number]:127 Normal [facility] VIT B12 AND FOLATEon 023 Cobalamin (Vitamin B12) [Mass/Vol] 514.0 pg/mL Normal 193.0-986.0 [facility] Comment on above: Performed By: #### B MP #### [facility] [address] [address] [address] Rashmi Nolan FOLATE 10.00 ng/mL Normal 8.60-58.90 [facility] Comment on above: Performed By: #### B MP #### [facility] [address] [address] [address] Rashmi Nolan CBC AUTO DIFFon 08-16-2022 BASO # 0.0 103/ul Normal 0.0-0.1 [facility] Comment on above: Performed By: #### B MP #### [facility] [address] [address] [address] Rashmi Nolan Basophils/100 WBC (Bld) 0.8 % Normal 0.2-2.0 [facility] Comment on above: Performed By: #### B MP #### [facility] [address] [place] [address] Dr. Rashmi Nolan EO # 0.3 103/ul Normal 0.0-0.7 [facility] Comment on above: Performed By: #### B MP #### [facility] [address] [address] [address] Rashmi Nolan Eosinophils/100 WBC (Bld) 7.8 % Critically high 0.9-7.0 [facility] Comment on above: Performed By: #### B MP #### [facility] [address] [address] [address] Rashmi Nolan Erythrocyte distribution width (RBC) [Ratio] 13.2 % Normal 11.0-15.0 [facility] Comment on above: Performed By: #### B MP #### [facility] [address] [place] [address] Dr. Rashmi Nolan Hematocrit (Bld) [Volume fraction] 33.2 % Critically low 42.0-54.0 [facility] Comment on above: Performed By: #### B MP #### [facility] [address] [place] [address] Dr. Rashmi Nolan Hemoglobin (Bld) [Mass/Vol] 10.8 g/dL Critically low 14.0-18.0 [facility] Comment on above: Performed By: #### B MP #### [facility] [address] [place] [address] Dr. Rashmi Nolan IG # 0.01 10e3/ul Normal 0.00-0.03 [facility] Comment on above: Performed By: #### B MP #### [facility] [address] [place] [address] Dr. Rashmi Nolan IG % 0.3 % Normal 0.0-0.5 [facility] Comment on above: Performed By: #### B MP #### [facility] [address] [place] [address] Dr. Rashmi Nolan LYMPH # 1.0 103/ul Critically low 1.2-3.8 [facility] Comment on above: Performed By: #### B MP #### [facility] [address] [place] [address] Dr. Rashmi Nolan Lymphocytes/100 WBC (Bld) 24.7 % Normal 20.5-60.0 [facility] Comment on above: Performed By: #### B MP #### [facility] [address] [place] [address] Dr. Rashmi Nolan MANUAL DIFF REQ NO Normal [facility] Comment on above: Performed By: #### B MP #### [facility] [address] [place] [address] Dr. Rashmi Nolan MCH (RBC) [Entitic mass] 33.0 pg Normal 25.9-34.0 [facility] Comment on above: Performed By: #### B MP #### [facility] [address] [place] [address] Dr. Rashmi Nolan MCHC (RBC) [Mass/Vol] 32.5 g/dL Normal 29.9-35.2 [facility] Comment on above: Performed By: #### B MP #### [facility] [address] [place] [address] Dr. Rashmi Nolan MCV (RBC) [Entitic vol] 101.5 fL Critically high 80.0-94.0 [facility] Comment on above: Performed By: #### B MP #### [facility] [address] [address] [address] Rashmi Nolan MONO # 0.4 103/ul Normal 0.3-0.8 [facility] Comment on above: Performed By: #### B MP #### [facility] [address] [address] [address] Rashmi Nolan Monocytes/100 WBC (Bld) 10.7 % Normal 1.7-12.0 [facility] Comment on above: Performed By: #### B MP #### [facility] [address] [address] [address] Rashmi Nolan NEUT # 2.1 103/ul Normal 1.4-6.5 [facility] Comment on above: Performed By: #### B MP #### [facility] [address] [address] [address] Rashmi Nolan Neutrophils/100 WBC (Bld) 55.7 % Normal 43.0-75.0 [facility] Comment on above: Performed By: #### B MP #### [facility] [address] [address] [address] Rashmi Nolan Platelet mean volume (Bld) [Entitic vol] 10.5 fL Normal 9.5-13.5 [facility] Comment on above: Performed By: #### B MP #### [facility] [address] [address] [address] Rashmi Nolan PLT 160 103/ul Normal 150-450 [facility] Comment on above: Performed By: #### B MP #### [facility] [address] [address] [address] Rashmi Nolan RBC 3.27 106/ul Critically low 4.70-6.10 [facility] Comment on above: Performed By: #### B MP #### [facility] [address] [address] [address] Rashmi Nolan WBC 3.8 103/ul Critically low 4.0-11.0 [facility] Comment on above: Performed By: #### B MP #### [facility] [address] [address] [address] Rashmi Nolan LIPID PROFILEon 08-16-2022 CHOL-HDL RATIO NORM SEE BELOW Normal [facility] Comment on above: Result Comment: 3.3 - 4.4 LOW RISK 4.4 - 7.1 AVERAGE RISK 7.1 - 11.0 MODERATE RISK >11.0 HIGH RISK Performed By: #### B MP #### [facility] [address] [address] [address] Rashmi Nolan Cholesterol [Mass/Vol] 166 mg/dL Normal <=200 [facility] Comment on above: Performed By: #### B MP #### [facility] [address] [address] [address] Rashmi Nolan Cholesterol in HDL [Mass/Vol] 42 mg/dL Normal 40-60 [facility] Comment on above: Performed By: #### B MP #### [facility] [address] [address] [address] Rashmi Nolan Cholesterol in LDL [Mass/Vol] 110.4 mg/dL Normal [facility] Comment on above: Performed By: #### B MP #### [facility] [address] [address] [address] Rashmi Nolan Cholesterol.total/Cho lesterol in HDL [Mass ratio] 4.0 {ratio} Normal [facility] Comment on above: Performed By: #### B MP #### [facility] [address] [address] [address] Rashmi Nolan HDL NORMAL > or = 60 mg/dl - LO W CARDIOVASCULAR RISK <40 mg/dl - HIGH CARDIOVASCULAR RISK Normal [facility] Comment on above: Performed By: #### B MP #### [facility] [address] [id number] Rashmi Nolan LDL CALC NORMAL SEE BELOW Normal [facility] Comment on above: Result Comment: <100 mg/dl OPTIMAL 100 - 129 mg/dl NEAR OR ABOVE OPTIMAL 130 - 159 mg/dl BORDERLINE HIGH 160 - 189 mg/dl HIGH >190 mg/dl VERY HIGH Performed By: #### B MP #### [facility] [address] [address] [address] Rashmi Nolan Triglyceride [Mass/Vol] 68 mg/dL Normal <=150 [facility] Comment on above: Performed By: #### B MP #### [facility] [address] [address] [address] Rashmi Nolan VLDL CALC 13.6 mg/dL Normal [facility] Comment on above: Performed By: #### B MP #### [facility] [address] [place] [address] Dr. Rashmi Nolan PROF 14(COMP METB)on 023 Albumin [Mass/Vol] 3.9 g/dL Normal 3.4-5.0 [facility] Comment on above: Performed By: #### B MP #### [facility] [address] [place] [address] Dr. Rashmi Nolan Albumin/Globulin [Mass ratio] 1.1 {ratio} Normal [facility] Comment on above: Performed By: #### B MP #### [facility] [address] [place] [address] Dr. Rashmi Nolan ALP [Catalytic activity/Vol] 190 U/L Critically high 46-116 [facility] Comment on above: Performed By: #### B MP #### [facility] [address] [place] [address] Dr. Rashmi Nolan ALT [Catalytic activity/Vol] 15 U/L Critically low 16-63 [facility] Comment on above: Performed By: #### B MP #### [facility] [address] [place] [address] Dr. Rashmi Nolan Anion gap [Moles/Vol] 15.2 mmol/L Normal [facility] Comment on above: Performed By: #### B MP #### [facility] [address] [place] [address] Dr. Rashmi Nolan AST [Catalytic activity/Vol] 17 U/L Normal 15-37 [facility] Comment on above: Performed By: #### B MP #### [facility] [address] [place] [address] Dr. Rashmi Nolan Bilirubin [Mass/Vol] 0.4 mg/dL Normal 0.2-1.0 [facility] Comment on above: Performed By: #### B MP #### [facility] [address] [place] [address] Dr. Rashmi Nolan Calcium [Mass/Vol] 10.0 mg/dL Normal 8.5-10.1 [facility] Comment on above: Performed By: #### B MP #### [facility] [address] [address] [address] Rashmi Nolan Chloride [Moles/Vol] 108 mmol/L Critically high 98-107 [facility] Comment on above: Performed By: #### B MP #### [facility] [address] [place] [address] Dr. Rashmi Nolan CO2 [Moles/Vol] 25.8 mmol/L Normal 21.0-32.0 [facility] Comment on above: Performed By: #### B MP #### [facility] [address] [place] [address] Dr. Rashmi Nolan Creatinine [Mass/Vol] 1.78 mg/dL Critically high 0.70-1.30 [facility] Comment on above: Performed By: #### B MP #### [facility] [address] [place] [address] Dr. Rashmi Nolan EGFR-AF CHINESE 44 mL/min/1.73m2 Critically low >=60 [facility] Comment on above: Performed By: #### B MP #### [facility] [address] [place] [address] Dr. Rashmi Nolan EGFR-NON AF CHINESE 36 mL/min/1.73m2 Critically low >=60 [facility] Comment on above: Performed By: #### B MP #### [facility] [address] [place] [address] Dr. Rashmi Nolan Globulin (S) [Mass/Vol] 3.7 g/dL Normal [facility] Comment on above: Performed By: #### B MP #### [facility] [address] [place] [address] Dr. Rashmi Nolan Glucose [Mass/Vol] 100 mg/dL Normal 74-106 [facility] Comment on above: Performed By: #### B MP #### [facility] [address] [address] [address] Rashmi Nolan Potassium [Moles/Vol] 5.0 mmol/L Normal 3.5-5.1 [facility] Comment on above: Performed By: #### B MP #### [facility] [address] [address] [address] Rashmi Nolan Protein [Mass/Vol] 7.6 g/dL Normal 6.4-8.2 [facility] Comment on above: Performed By: #### B MP #### [facility] [address] [address] [address] Rashmi Nolan Sodium [Moles/Vol] 144 mmol/L Normal 136-145 [facility] Comment on above: Performed By: #### B MP #### [facility] [address] [address] [address] Rashmi Nolan Urea nitrogen [Mass/Vol] 52.0 mg/dL Critically high 7.0-18.0 [facility] Comment on above: Performed By: #### B MP #### [facility] [address] [address] [address] Rashmi Nolan Urea nitrogen/Creatinine [Mass ratio] 29.2 mg/mg Normal [facility] Comment on above: Performed By: #### B MP #### [facility] [address] [address] [address] Rashmi Nolan Office Visiton 07-24-2022 Follow-up visit [id number] Ry Lerner 1935 M Date Provider Department Center 07/24/2022 ROYAL ENRIQUE [facility] No family history on file Level of Service:92374 MD OFFICE/OUTPATIENT ESTABLISHED LOW MDM 20-29 MIN Reason for Visit and Comments: Chest Pain [982284] Normal [facility] PROF CHEM 8 (BAS METB)on Anion gap [Moles/Vol] 13.3 mmol/L Normal [facility] Comment on above: Performed By: #### C BC #### [facility] [address] [address] [address] Rashmi Nolan Calcium [Mass/Vol] 10.1 mg/dL Normal 8.5-10.1 [facility] Comment on above: Performed By: #### C BC #### [facility] [address] [address] [address] Rashmi Nolan Chloride [Moles/Vol] 104 mmol/L Normal 98-107 [facility] Comment on above: Performed By: #### C BC #### [facility] [address] [address] [address] Rashmi Nolan CO2 [Moles/Vol] 28.7 mmol/L Normal 21.0-32.0 [facility] Comment on above: Performed By: #### C BC #### [facility] [address] [address] [address] Rashmi Nolan Creatinine [Mass/Vol] 1.87 mg/dL Critically high 0.70-1.30 [facility] Comment on above: Performed By: #### C BC #### [facility] [address] [address] [address] Rashmi Nolan EGFR-AF CHINESE 42 mL/min/1.73m2 Critically low >=60 [facility] Comment on above: Performed By: #### C BC #### [facility] [address] [address] [address] Rashmi Nolan EGFR-NON AF CHINESE 34 mL/min/1.73m2 Critically low >=60 [facility] Comment on above: Performed By: #### C BC #### [facility] [address] [address] [address] Rashmi Nolan Glucose [Mass/Vol] 101 mg/dL Normal 74-106 [facility] Comment on above: Performed By: #### C BC #### [facility] [address] [address] [address] Rashmi Nolan Potassium [Moles/Vol] 5.0 mmol/L Normal 3.5-5.1 [facility] Comment on above: Performed By: #### C BC #### [facility] [address] [address] [address] Rashmi Nolan Sodium [Moles/Vol] 141 mmol/L Normal 136-145 [facility] Comment on above: Performed By: #### C BC #### [facility] [address] [place] [address] Dr. Rashmi Nolan Urea nitrogen [Mass/Vol] 41.0 mg/dL Critically high 7.0-18.0 [facility] Comment on above: Performed By: #### C BC #### [facility] [address] [place] [address] Dr. Rashmi Nolan Urea nitrogen/Creatinine [Mass ratio] 21.9 mg/mg Normal [facility] Comment on above: Performed By: #### C BC #### [facility] [address] [place] [address] Dr. Rashmi Nolan COVID/FLU RT-PCRon 2 SARS-CoV-2 (COVID-19) RNA ETELVINA+probe Ql (Unsp spec) Positive [employer] Other COVID/FLU RT-PCR Negative [facility] Novalact Other BNPon 02-15-2022 Natriuretic peptide B (Bld) [Mass/Vol] 1653.0 pg/mL Normal <=1,800.0 [facility] Comment on above: Performed By: #### C BC #### [facility] [address] [place] [address] Dr. Rashmi Nolan PROF CHEM 8 (BAS METB)on Anion gap [Moles/Vol] 15.8 mmol/L Normal [facility] Comment on above: Performed By: #### C BC #### [facility] [address] [place] [address] Dr. Rashmi Nolan Calcium [Mass/Vol] 9.6 mg/dL Normal 8.5-10.1 [facility] Comment on above: Performed By: #### C BC #### [facility] [address] [place] [address] Dr. Rashmi Nolan Chloride [Moles/Vol] 108 mmol/L Critically high 98-107 [facility] Comment on above: Performed By: #### C BC #### [facility] [address] [place] [address] Dr. Rashmi Nolan CO2 [Moles/Vol] 24.2 mmol/L Normal 21.0-32.0 [facility] Comment on above: Performed By: #### C BC #### [facility] [address] [address] [address] Rashmi Nolan Creatinine [Mass/Vol] 1.87 mg/dL Critically high 0.70-1.30 [facility] Comment on above: Performed By: #### C BC #### [facility] [address] [place] [address] Dr. Rashmi Nolan EGFR-AF CHINESE 42 mL/min/1.73m2 Critically low >=60 [facility] Comment on above: Performed By: #### C BC #### [facility] [address] [place] [address] Dr. Rashmi Nolan EGFR-NON AF CHINESE 34 mL/min/1.73m2 Critically low >=60 [facility] Comment on above: Performed By: #### C BC #### [facility] [address] [place] [address] Dr. Rashmi Nolan Glucose [Mass/Vol] 107 mg/dL Critically high 74-106 [facility] Comment on above: Performed By: #### C BC #### [facility] [address] [place] [address] Dr. Rashmi Nolan Potassium [Moles/Vol] 5.0 mmol/L Normal 3.5-5.1 [facility] Comment on above: Performed By: #### C BC #### [facility] [address] [place] [address] Dr. Rashmi Nolan Sodium [Moles/Vol] 143 mmol/L Normal 136-145 [facility] Comment on above: Performed By: #### C BC #### [facility] [address] [address] [address] Rashmi Nolan Urea nitrogen [Mass/Vol] 28.0 mg/dL Critically high 7.0-18.0 [facility] Comment on above: Performed By: #### C BC #### [facility] [address] [address] [address] Rashmi Nolan Urea nitrogen/Creatinine [Mass ratio] 15.0 mg/mg Normal [facility] Comment on above: Performed By: #### C BC #### [facility] [address] [address] [address] Rashmi Nolan APTTon 10-13-2021 aPTT Coag (Bld) [Time] 36.7 s High 25.0-35.0 [facility] Comment on above: Result Comment: ALL [...] PURPOSE. Performed By: #### 5 0103 #### [facility] [address] [place] [address], [facility] BASIC METABOLIC PANELon 09-26 Calcium [Mass/Vol] 9.7 mg/dL Normal 8.6-10.3 [facility] Comment on above: Performed By: #### 0 0071, 71602, 02684, 14440 #### [facility] [address] [place] [address], [place] Chloride [Moles/Vol] 108 mmol/L High 98-107 [facility] Comment on above: Performed By: #### 0 0071, 94696, 33470, 03063 #### [facility] [address] [place] [address], [place] CO2 [Moles/Vol] 23 mmol/L Normal 21-31 [facility] Comment on above: Performed By: #### 0 0071, 38025, 58140, 17131 #### [facility] [address] [place] [address], [place] Creatinine [Mass/Vol] 1.98 mg/dL High 0.70-1.30 [facility] Comment on above: Performed By: #### 0 0071, 65385, 74256, 78378 #### [facility] [address] [place] [address], [place] eGFR- 39 ml/min/1.73sq m Abnormal >60 [facility] Comment on above: Result Comment: Calc ulation may not be valid for patients over 70 years Performed By: #### 0 0071, 55147, 77432, 79305 #### [facility] [address] [place] [address], [place] eGFR- non- 32 ml/min/1.73sq m Abnormal >60 [facility] Comment on above: Result Comment: Calc ulation may not be valid for patients over 70 years Performed By: #### 0 0071, 92193, 84071, 15184 #### [facility] [address] [place] [address], [place] Glucose [Mass/Vol] 88 mg/dL Normal 70-100 [facility] Comment on above: Performed By: #### 0 0071, 47605, 83262, 05998 #### [facility] [address] [place] [address], [place] Potassium [Moles/Vol] 4.8 mmol/L Normal 3.5-5.1 [facility] Comment on above: Performed By: #### 0 0071, 98014, 54380, 36841 #### [facility] [address] [place] [address], [place] Sodium [Moles/Vol] 138 mmol/L Normal 136-145 [facility] Comment on above: Performed By: #### 0 0071, 57817, 50244, 71382 #### [facility] [address] Urea nitrogen [Mass/Vol] 46 mg/dL High 7-25 [facility] Comment on above: Performed By: #### 0 0071, 43622, 62978, 11514 #### [facility] [address] [place] [address], [facility] BNP EDon 10-13-2021 Natriuretic peptide B (Bld) [Mass/Vol] 428 pg/mL High 0-100 [facility] Comment on above: Result Comment: Give n the appropriate clinical setting a BNP result of >100 pg/mL indicates congestive heart failure. Performed By: #### 3 0935 #### [facility] [address] [place] [address], [facility] CBC W/DIFFon 10-13-2021 ABS IMM GRANS 0.0 10*3/uL Normal 0.0-0.2 [facility] Comment on above: Performed By: #### 5 0103 #### [facility] [address] [place] [address], [facility] ABS NEUTROPHILS 2.8 10*3/uL Normal 1.6-7.6 [facility] [place] Comment on above: Performed By: #### 5 0103 #### [facility] [address] [place] [address], [facility] Basophils (Bld) [#/Vol] 0.0 10*3/uL Normal 0.0-0.2 [facility] Comment on above: Performed By: #### 5 0103 #### [facility] [address] [place] [address], [facility] Basophils/100 WBC (Bld) 0.5 % Normal 0.0-1.0 [facility] Comment on above: Performed By: #### 5 0103 #### [facility] [address] [place] [address], [facility] Eosinophils (Bld) [#/Vol] 0.3 10*3/uL Normal 0.0-0.5 [facility] Comment on above: Performed By: #### 5 0103 #### [facility] [address] [place] [address], [facility] Eosinophils/100 WBC (Bld) 7.4 % High 0.0-6.0 [facility] Comment on above: Performed By: #### 5 0103 #### [facility] [address] [facility] [place] Erythrocyte distribution width (RBC) [Ratio] 13.9 % Normal 11.5-15.0 [facility] Comment on above: Performed By: #### 5 0103 #### [facility] [address] [facility] [place] [address], [facility] Hematocrit (Bld) [Volume fraction] 33.5 % Low 39.0-50.0 [facility] Comment on above: Performed By: #### 5 0103 #### [facility] [address] [facility] Hemoglobin (Bld) [Mass/Vol] 11.4 g/dL Low 13.0-17.0 [facility] Comment on above: Performed By: #### 5 0103 #### [facility] [address] [facility] [place] [address], [facility] IMMATURE GRANS 0.2 % Normal 0.0-1.0 [facility] Comment on above: Performed By: #### 5 0103 #### [facility] [address] [facility] [place] [address], [facility] Lymphocytes (Bld) [#/Vol] 0.9 10*3/uL Low 1.2-4.0 [facility] Comment on above: Performed By: #### 5 0103 #### [facility] [address] [place] [address], [facility] Lymphocytes/100 WBC (Bld) 20.1 % Normal 20.0-45.0 [facility] [facility] Comment on above: Performed By: #### 5 0103 #### [facility] [address] [facility] [place] [address], [facility] MCH (RBC) [Entitic mass] 33.1 pg High 27.0-33.0 The [facility] Comment on above: Performed By: #### 5 0103 #### [facility] [address] [facility] [place] [address], [facility] MCHC (RBC) [Mass/Vol] 34.0 g/dL Normal 32.0-35.0 [facility] Comment on above: Performed By: #### 5 0103 #### [facility] [address] [facility] [place] [address], [facility] MCV (RBC) [Entitic vol] 97.4 fL Normal 82.0-98.0 [facility] Comment on above: Performed By: #### 5 3 #### [facility] [address] [facility] [place] [address], [facility] Monocytes (Bld) [#/Vol] 0.4 10*3/uL Normal 0.1-1.0 [facility] Comment on above: Performed By: #### 5 3 #### [facility] [address] [facility] [place] [address], [facility] MONOS 8.4 % Normal 5.0-12.0 [facility] Comment on above: Performed By: #### 5 0103 #### [facility] [address] [facility] [place] [address], [facility] Neutrophils/100 WBC (Bld) 63.4 % Normal 40.0-72.0 [facility] Comment on above: Performed By: #### 5 3 #### [facility] [address] [place] [address], [facility] Nucleated RBC/100 WBC (Bld) [Ratio] 0 % Normal 0-0 [facility] Comment on above: Performed By: #### 5 3 #### [facility] [address] [place] [address], [facility] PLAT CNT 116 10*3/uL Low 150-400 [facility] Comment on above: Performed By: #### 5 0103 #### [facility] [address] [place] [address], [facility] RBC (Bld) [#/Vol] 3.44 10*6/uL Low 4.20-5.70 The [facility] Comment on above: Performed By: #### 5 0103 #### [facility] [address] [facility] [place] [address], [facility] WBC (Bld) [#/Vol] 4.43 10*3/uL Normal 4.00-10.60 [facility] Comment on above: Performed By: #### 5 0103 #### [facility] [address] [place], [place] [id number] [place] [address] Cardiovascular Lab Reporton 10-13-2021 Cardiovascular Lab Report [facility] Patient Name: Chang [facility] MR #: [id number] Physician: Royal Gandara MD Department of Service Date: 10/13/2021 Medicine Birthdate: 1935 Division of Room #: [facility] Cardiology Adult Cardiovascular Services [place] [address] Cardiovascular Laboratory Report PACEMAKER IMPLANT PROCEDURE NOTE DATE OF PROCEDURE: 10/13/2021 PERFORMING PHYSICIAN: Dr. Royal Gandara CONSENT: Patient LOCATION: EP Lab PROCEDURE PERFORMED: 1. Implantation of pacemaker ([employer]) 2. Ultrasound guided venous access INDICATIONS: [...] previously recommended a pacemaker, however, presented to [facility] ED with a ventricular rate in the 30s. He was subsequently transferred over to [facility] ED for a pacemaker placement. Patient [...] using modified seldinger technique using a 5 Gambian micro-puncture needle on one occasion and 0.35 wire was placed. Local infiltration of 1% Lidocaine was performed, and an incision was created in the left upper chest. Dissection was then performed using cautery down to the fascial plane above the muscle. A small pocket was created for the device. 6 Gambian Safesheaths were placed over the wire. An active fixation [employer] pacing lead was then delivered through [...] immediate procedural complications were noted. Device info: [employer] Accolade MRI EL Model# L331 Serial# [id number] RV lead: Model# INGEVITY 7842 (59cms) Serial# [id number] Sensin.4mV Threshold: 0.6V@0.4ms Impedance: 598 Ohms POST [...] Gandara MD Date Trans: 10/13/2021 10:46 A/oscar DN_[id number] cc: Jason Silva M.D. [address] [place] [phone] Normal The [facility] FRESH FROZEN PLASMA 1 UNITon 10-13-2021 PRODUCT CODE 1 [id number] Normal The [facility] Comment on above: Order Comment: INR: 2.88 ,PTT: 36.7 at the time of order ;Indication: Other pacemaker placement Performed By: #### 8 7001 #### [facility] [address] [facility]. [address] PRODUCT STATUS 1 RE Normal The [facility] Comment on above: Order Comment: INR: 2.88 ,PTT: 36.7 at the time of order ;Indication: Other pacemaker placement Result Comment: Resu lt changed by IF on 10/19/2021 01:00. The previous value was XM. Performed By: #### 8 7001 #### [facility] [address] [place] [address], [facility] UNIT ABO 1 O Normal The [facility] Comment on above: Order Comment: INR: 2.88 ,PTT: 36.7 at the time of order ;Indication: Other pacemaker placement Performed By: #### 8 7001 #### [facility] [address] [place] [address], [facility] UNIT ID 1 [id number] Normal The [facility] Comment on above: Order Comment: INR: 2.88 ,PTT: 36.7 at the time of order ;Indication: Other pacemaker placement Performed By: #### 8 7001 #### [facility] [address] [place] [address], [facility] UNIT RH 1 Negative Normal The [facility] Comment on above: Order Comment: INR: 2.88 ,PTT: 36.7 at the time of order ;Indication: Other pacemaker placement Performed By: #### 8 7001 #### [facility] [address] [place] [address], [facility] LIVER BATTERYon 10-13-2021 Albumin [Mass/Vol] 4.0 g/dL Normal 3.5-5.7 [facility] Comment on above: Performed By: #### 0 0071, 48957, 12473, 27650 #### [facility] [address] [place] [address], [facility] ALKALINE PHOSPH 137 IU/L High 34-104 [facility] Comment on above: Performed By: #### 0 0071, 86755, 63076, 02561 #### [facility] [address] [place] [id number], [facility] ALT [Catalytic activity/Vol] 29 U/L Normal 7-52 [facility] Comment on above: Performed By: #### 0 0071, 49422, 66780, 61783 #### [facility] [address] [place] [address], [facility] AST [Catalytic activity/Vol] 22 U/L Normal 13-39 [facility] Comment on above: Performed By: #### 0 0071, 34608, 43040, 61871 #### [facility] [address] [place] [address], [facility] Bilirubin [Mass/Vol] 0.7 mg/dL Normal 0.3-1.0 [facility] Comment on above: Performed By: #### 0 0071, 31551, 37076, 36102 #### [facility] [address] [place] [address], [facility] Bilirubin.direct [Mass/Vol] 0.1 mg/dL Normal 0.0-0.2 [facility] Comment on above: Performed By: #### 0 0071, 25369, 73240, 00931 #### [facility] [address] [place] [address], [facility] Protein [Mass/Vol] 6.3 g/dL Normal 6.0-8.3 [facility] Comment on above: Performed By: #### 0 0071, 81155, 19527, 65897 #### [facility] [address] [facility] [place] [address], [facility] MAGNESIUM BLOODon 10-13-2021 Magnesium [Mass/Vol] 2.0 mg/dL Normal 1.9-2.7 [facility] Comment on above: Performed By: #### 0 0071, 61306, 90413, 45402 #### [facility] [address] [facility] POC SARS COV2 ANTIGEN NEGATI VEon 10-13-2021 POC SARS COV2 ANTIGEN NEG Negative Normal NEGATIVE The [facility] Comment on above: Result Comment: [...] antigen from SARS-CoV-2 in direct nasopharyngeal swab ([employer]) specimens from individuals who are suspected of [...] Accreditation. Performed By: #### 3 2044 #### [address] PORTABLE CHEST 1 VIEWon 09-26 PORTABLE CHEST 1 VIEW [facility] Department of Radiology [address] [place] [id number] Patient Name: RY LERNER : 1935 Sex: M Age: Race: White Pt. Location: [facility] Patient Status: E Ordered Date: 10/13/2021 4:40:00 [...] report. Electronically signed: Mark Aguilar. Transcribed by: [email or web address], User Resident: HUMBLE HERNANDEZ Electronically Signed by: MARK AGUILAR @ 10/13/2021 05:55 AM I personally read this/these film(s) with this resident Normal The [facility] Comment on above: Order Comment: evalu ate for Infiltrates PROTHROMBIN TIMEon 2 INR Coag (PPP) [Relative time] 2.88 {INR} High 0.91-1.16 [facility] Comment on above: Result Comment: [...] CHEST 1995;108:231S-246S. Performed By: #### 5 6101, 42525 #### [facility] [address] PT Coag (PPP) [Time] 30.0 s High 12.3-14.8 [facility] Comment on above: Result Comment: ALL RESULTS MUST BE INTERPRETED WITH RESPECT TO BLOOD DRAWING ARTIFACT OR DILUTION ERROR OF ANTICOAGULANT AT THE TIME OF SAMPLING. Performed By: #### 5 6101, 51045 #### [facility] [address] [facility] TROPONIN-Ion 10-13-2021 Troponin I.cardiac [Mass/Vol] 0.05 ng/mL High 0.00-0.04 [facility] Comment on above: Result Comment: REFE RENCE RANGES: 0.00 - 0.04 ng/ml NORMAL 0.05 - 0.50 ng/ml INDETERMINATE > 0.50 ng/ml CONSISTENT WITH AN M.I. Performed By: #### 0 0071, 58509, 71655, 10683 #### [facility] [address] [facility]. [address] TYPE AND SCREENon 10-13-2021 ABO INTERPRETATION O Normal [facility] Comment on above: Performed By: #### 5 0103 #### [facility] [address] [facility]. [address] RH INTERPRETATION Positive Normal [facility] Comment on above: Performed By: #### 5 0103 #### [facility] [address] Vital Signs Date Time Vital Sign Value Performing Clinician Facility 09-30-2023 14:26-0500 Blood Pressure Location Mary Jane Garza [facility] 09-30-2023 14:26-0500 Body temperature 95.72 [degF] Mary Jane Garza [facility] 09-30-2023 14:26-0500 Diastolic blood pressure 57 mm[Hg] Mohamad Mouchli [facility] 09-30-2023 14:26-0500 Heart rate 60 /min Mohamad Mouchli [facility] 09-30-2023 14:26-0500 Respiratory rate 16 /min Mohamad Mouchli [facility] 09-30-2023 14:26-0500 Systolic blood pressure 114 mm[Hg] Mohamad Mouchli [facility] 06-02-2022 14:50-0400 Body height 182.88 cm Sonja Aden Other [employer] [facility] [employer] Other 06-02-2022 14:50-0400 Body mass index (BMI) [Ratio] 29.73 kg/m2 Sonja Aden Other [employer] Other 06-02-2022 14:50-0400 Body temperature 99.6 [degF] Sonja Aden Other [employer] Other 06-02-2022 14:50-0400 Body weight 99.43 kg Sonja Aden Other [employer] Other 06-02-2022 14:50-0400 Diastolic blood pressure 54 mm[Hg] Sonja Aden Other [employer] Other 06-02-2022 14:50-0400 Respiratory rate 18 /min Sonja Aden Other [employer] Other 06-02-2022 14:50-0400 SaO2% (BldA) [Mass fraction] 95 % Sonja Aden Other [employer] [facility] [employer] Other 06-02-2022 14:50-0400 Systolic blood pressure 118 mm[Hg] Sonja Aden Other [employer] [facility] [employer] Other Encounters Encounter Date Encounter Type Care Provider Facility Start: 10-02-2023 End: 10-03-2023 ambulatory Sheng L Brissa Facility: [facility] Start: 09-30-2023 End: 10-01-2023 ambulatory Sheng L Brissa Facility:[facility] Start: 09-30-2023 End: 09-30-2023 Patient encounter procedure Mary Jane Garza [facility] Start: 09-09-2023 End: 09-10-2023 ambulatory Petros Lee MD Facility: [facility] Start: 09-04-2023 ambulatory Sheng L Brissa Facility: [facility] Start: 09-03-2023 End: 09-04-2023 ambulatory Sheng L Brissa Facility: [facility] Start: 08-29-2023 End: 08-29-2023 ambulatory ADDIE A FELTER Not Available Start: 08-29-2023 Bamboo flowsheet Addie A Fel ter BOBCAT OPERATOR-FORMING DEPARTMENT END FINDER Work Phone: [facility] Start: 08-29-2023 Bamboo flowsheet Addie A Fel ter BOBCAT OPERATOR-FORMING DEPARTMENT END FINDER Work Phone: [facility] Start: 08-29-2023 End: 08-29-2023 Office outpatient new 30 minutes Addie A Felter BOBCAT OPERATOR-FORMING DEPARTMENT END FINDER Work Phone: [facility] Comment on above: Other atopic dermati tis (Primary Dx); Seborrheic keratosis Start: 08-28-2023 End: 08-29-2023 ambulatory John Nieves Facility:[facility] Start: 07-03-2023 End: 07-04-2023 ambulatory Sheng L Brissa Facility:[facility] Start: 07-02-2023 End: 07-02-2023 ambulatory [facility] Start: 05-15-2023 End: 05-15-2023 ambulatory [facility] Start: 02-08-2023 End: 02-08-2023 ambulatory [facility] Start: 01-22-2023 End: 01-23-2023 ambulatory Sheng L Brissa Facility:[facility] Start: 01-22-2023 End: 01-22-2023 Lab Drop off Sheng L Brissa [facility] Start: 12-31-2022 End: 12-31-2022 ambulatory [facility] Facility:[facility] Start: 12-25-2022 End: 12-26-[address] JASON SILVA . Facility: Start: 12-21-2022 End: 12-22-2022 ambulatory Sheng L Brissa Facility:[facility] Start: 12-17-2022 End: 01-16-2023 ambulatory Sheng L Brissa Facility:[id number] Start: 12-12-2022 End: 12-14-2022 Evaluation and management of inpatient DR JASON SILVA . Facility: Start: 12-11-2022 End: 12-12-2022 ambulatory Sheng L Brissa Facility:[facility] Start: 12-11-2022 End: 12-11-2022 Lab Drop off Sheng L Brissa [facility] Start: 12-10-2022 End: 12-10-2022 ambulatory [facility] Facility:[facility] Start: 11-27-2022 End: 11-27-2022 ambulatory [facility] Start: 11-26-2022 End: 12-26-2022 ambulatory SHAIKH Joe JUNIOR Facility:[facility] Start: 11-06-2022 End: 11-07-[address] JASON SILVA . Facility:[facility] Start: 11-06-2022 End: 11-06-2022 ambulatory SOLIS VALLES [facility] Start: 10-29-2022 End: 11-23-2022 ambulatory HAYWARD H FAWWAD Facility:[facility] Start: 10-09-2022 ambulatory Sheng Lagos Facility:[facility] Start: 09-26-2022 End: 10-26-2022 ambulatory HAYWARD H FAWWAD Facility:[facility] Start: 08-29-2022 End: 09-26-2022 ambulatory HAYWARD H FAWWAD Facility:[facility] Start: 08-22-2022 End: 08-23-[address] JASON SILVA . Facility:[facility] Start: 08-16-2022 End: 08-17-[address] JASON SILVA . Facility:[facility] Start: 07-30-2022 End: 08-29-2022 ambulatory HAYWARD H FAWWARDD Facility:[facility] Start: 07-24-2022 End: 07-25-2022 ambulatory ROYAL GANDARA Facility:[facility] Start: 07-24-2022 End: 07-24-2022 ambulatory ROYAL NICHOL [facility] Start: 06-28-2022 End: 07-29-2022 ambulatory HAYWARD H FAWWAD Facility:[facility] Start: 06-02-2022 End: 06-02-2022 ambulatory Sonja Aden Other [employer] Other Start: 06-02-2022 Office outpatient ne w 30 minutes Sonja Aden [facility] Start: 05-29-2022 End: 06-27-2022 ambulatory HAYWARD H FAWWAD Facility:[facility] Start: 04-29-2022 End: 05-28-2022 ambulatory HAYWARD H FAWWAD Facility:[facility] Start: 03-29-2022 End: 04-28-2022 ambulatory HAYWARD H FAWWAD Facility:[facility] Start: 03-20-2022 End: 03-20-2022 ambulatory UNKNOWN PROVIDER Facility:[facility] Start: 02-26-2022 End: 03-28-2022 ambulatory SHAIKH Joe JUNIOR Facility:[facility] Start: 02-15-2022 End: 02-16-2022 ambulatory KELLY BONILLA Facility:[facility] Start: 01-26-2022 End: 02-23-2022 ambulatory SHAIKH Joe JUNIOR Facility:[facility] Start: 10-13-2021 End: 10-13-2021 ambulatory [facility] Start: 10-13-2021 End: 10-13-2021 Emergency department patient visit PHYSICIAN UNKNOWN Facility:[facility] Procedures Date Procedure Procedure Detail Performing [...] 12-10-2022 Decompression of med lluvia nerve Sheng Lagos Comment on above: Left Start: 08-22-[address] JASON MENDOZAT . Comment on above: Performed By: #### B MP #### [facility] [address] [place] [address] [address] Rashmi Nolan Start: 10-13-2021 Antibody screen PHYSICI AN UNKNOWN Comment on above: Performed By: #### 5 0103 #### [address] Start: 09-26-2021 Cardiac pacemaker, d evice (physical object) Sheng Brissa Start: 02-26-2011 Colonoscopy Sheng Molinaa b Start: 07-29-1995 TURP syndrome (disorder) Sheng Brissa Start: 07-29-1993 Herniated structure (morphologic abnormality) Sheng Lagos Tonsillectomy and adenoidectomy Sheng Lagos Plan of Treatment Date Care Activity Detail Author Start: 08-29-2023 End: 08-29-2023 Patient encounter procedure 08/29/2023 1:00 PM EST Office Visit [facility] [address] [place] [phone] Addie Huston, BOBCAT OPERATOR-FORMING DEPARTMENT END FINDER [address] [place] [address] Arrived [facility] Comment on above: Arrived Immunizations Immunization Date Immunization Notes Care Provider Fa cility 08-02-2023 zoster vaccine recombinant Mohjohnd Greg [facility] 07-03-2023 influenza virus vaccine, unspecified formulation Mohjohnd Momalcolmli [facility] 07-03-2023 pneumococcal 20-aurelio nt conjugate vaccine Mohamad Mouchli [facility] 05-02-2022 influenza virus vaccine, unspecified formulation Sheng Molinaab [facility] 05-02-2022 Seasonal trivalent influenza vaccine, adjuvanted, preservative free Addie Huston BOBCAT OPERATOR-FORMING DEPARTMENT END FINDER Work Phone: [facility] 04-28-2021 SARS-CoV-2 (COVID-19 ) mRNA-1273 vaccine Mohamad Momalcolmli [facility] 09-17-2020 SARS-CoV-2 (COVID-19 ) mRNA BNT-162b2 vax Sheng Brissa [facility] Comment on above: Result Comment: 2022: [id number] 08-27-2020 SARS-CoV-2 (COVID-19 ) mRNA BNT-162b2 vax Sheng Brissa [facility] Comment on above: Result Comment: 2022: [id number] 06-13-2020 influenza virus vaccine, unspecified formulation Sheng Brissa [facility] 06-01-2019 influenza virus vaccine, unspecified formulation Sheng Brissa [facility] 04-14-2018 influenza virus vaccine, unspecified formulation Sheng Brissa [facility] 04-22-2017 influenza virus vaccine, unspecified formulation Sheng Brissa [facility] 05-01-2016 influenza virus vaccine, unspecified formulation Sheng Brissa [facility] 06-02-2015 influenza virus vaccine, unspecified formulation Sheng Brissa [facility] 05-31-2014 influenza virus vaccine, unspecified formulation Sheng Brissa [facility] 06-02-2013 influenza virus vaccine, unspecified formulation Sheng Brissa [facility] 05-29-2005 influenza, whole Sheng Brissa [facility] Payers Date Payer Category Payer Unknown [facility] 1999 Medicare [id number] 1959 Medicare [id number] 1935 Unknown [id number] 2.16.8 40.1.595266.3.579.2.647 1934 Unknown [id number] 2.16. 840.1.979917.3.579.2.732 1934 Unknown [id number] 2.16. 840.1.571173.3.579.2.732 1934 Unknown [id number] 2.16.8 40.1.104578.3.579.2.718 1934 Unknown [id number] 2.16.8 40.1.961845.3.579.2.718 1934 Unknown [id number] 2.16.84 0.1.346020.3.579.2.593 1934 Unknown [id number] 2.16.84 0.1.218339.3.579.2.593 1934 Unknown [id number] 2.16.84 0.1.649494.3.579.2.593 1934 Unknown [id number] 2.16.84 0.1.324434.3.579.2.593 1934 Unknown [id number] 2.16.84 0.1.713876.3.579.2.593 1934 Unknown [id number] 2.16.84 0.1.502642.3.579.2.593 1934 Unknown [id number] 2.16.84 0.1.457572.3.579.2.593 1934 Unknown [id number] 2.16.84 0.1.644983.3.579.2.593 1934 Unknown [id number] 2.16.84 0.1.756516.3.579.2.593 1934 Unknown [id number] 2.16.84 0.1.641539.3.579.2.593 1934 Unknown [id number] 2.16.84 0.1.390803.3.579.2.593 1934 Unknown [id number] 2.16.84 0.1.567354.3.579.2.593 1934 Unknown [id number] 2.16.84 0.1.350348.3.579.2.593 1934 Unknown [id number] 2.16.84 0.1.947931.3.579.2.593 1934 Unknown [id number] 2.16.84 0.1.468638.3.579.2.593 1934 Unknown [id number] 2.16.84 0.1.801932.3.579.2.593 1934 Unknown [id number] 2.16.84 0.1.431875.3.579.2.593 1934 Unknown [id number] 2.16.84 0.1.654568.3.579.2.593 1934 Unknown [id number] 2.16.84 0.1.274840.3.579.2.1259 1934 Unknown [id number] 2.16. 840.1.334209.3.579.2.196 1934 Unknown [id number] 2.16.8 40.1.991446.3.579.2.727 1934 Unknown [id number] 2.16.8 40.1.013147.3.579.2.727 1934 Unknown [id number] 2.16.8 40.1.205214.3.579.2.727 1934 Unknown [id number] 2.16.8 40.1.454764.3.579.2.727 193 Unknown [id number] 2.16.8 40.1.251786.3.579.2.727 1934 Unknown [id number] 2.16.8 40.1.597208.3.579.2.727 1934 Unknown [id number] 2.16.8 40.1.202561.3.579.2.727 1934 Unknown [id number] 2.16.8 40.1.404123.3.579.2.727 1934 Unknown [id number] 2.16.8 40.1.249729.3.579.2.727 1934 Unknown [id number] 2.16.8 40.1.735210.3.579.2.727 1934 Unknown [id number] 2.16.8 40.1.736917.3.579.2.727 Social History Date Type Detail Facility Unknown if ever smoked [employer] Other Start: 02-05-2023 End: 08-29-2023 Sex Assigned At [facility] Start: 12-11-2022 End: 12-13-2022 Tobacco smoking status Never smoked tobacco (finding) [facility] Tobacco smoking status Never [facility] Comment on above: Quit in 2002 Start: 01-22-2023 End: 09-30-2023 Tobacco smoking status Ex-smoker (finding) [facility] Comment on above: Quit in 2002 Start: 12-13-2022 Tobacco use and exposure Smokeless tobacco non-user [facility] Start: 02-05-2023 End: 08-29-2023 Alcohol intake Current drinker of alcohol (finding) [facility] Start: 02-05-2023 End: 08-29-2023 History of Social function [facility] Start: 1935 Sex Assigned At Not on file N [facility] Functional Status Date Assessment Result Facility 09-30-2023 Functional Status N/A [facility] Clinical Notes 10-13-2021 to 08-29-2023 Addie Huston APRN-FORMING DEPARTMENT END FINDER - 08/29/2023 1:00 PM EST Note Date [...] Treatments: none New patient, referred by Sheng Lagos MD All pertinent medical history, medications, and [...] any new/changing lesions documented in this encounter [facility] 05-15-2023 Note [place] Cardiology Consul t Note Reason for visit: [...] on Warfarin, 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 with [employer] on 10/13/2021 and paced 65% Echocardiogram performed [...] stress test about 12 years ago in [place], and was in hospital with noted a [...] mg DR lindsay (more content not included)... [facility] 05-15-2023 Note Patient here for [...] All other systems reviewed and are negative. [facility] [facility] 02-18-2023 Note Stable -ct medications [facility] 02-18-2023 Note [id number]: at [place] [id number] for age and htn -restart warfarin, will follow coumadin clinic here at [facility] -is to report any concerns for bleeding -follow up in 2 months to discuss how he is doing -patient prefers to not consider watchmen if he does not have to [facility] 02-08-2023 Note Patient here for [facility] for GI bleed. He was discharged on 12/14 and coumadin was put on hold. Denies chest pain, SOB, and palpitations. Lost his recently. Review of Systems Musculoskeletal: Positive for arthritis, joint pain and muscle cramps. Neurological: Positive for numbness. All other systems reviewed and are negative. [facility] 02-08-2023 Note [place] [facility]iology Consul t Note Reason for visit: Afib. S/p PPM HPI: Ry Lerner is a 87 y.o. 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 with [employer] on 10/13/2021 and paced 65% Echocardiogram performed [...] stress test about 12 years ago in [place], and was in hospital with noted a [...] No current facility (more content not included)... [facility] 01-01-2023 Note [id number] 01-01-2023 Note [id number] [facility] 12-31-2022 Note [facility] SURGERY Clinical Discharge Summary PERSON INFORMATION Name RY LERNER Age 87 Years 1935 Sex MALE Language Kazakh PCP Ezequiel CHAMBERS, John Rodríguez Marital Status Med Service Ambulatory Surgery Acct# Arrival 12/31/2022 08:09:06 Visit Reason SURGERY - RIGHT CARPAL TUNNEL RELEASE Acuity LOS 039 21:33 Address: [address] [place] [address] Comment: PROVIDER INFORMATION VITALS INFORMATION Vital Sign [...] release capsule) 1 cap(s) Oral every day. Hoberg's wort (Lindsey's wort oral tablet) 1 tab(s) [...] release capsule) 1 cap(s) Oral every day. Hoberg's wort (Lindsey's wort oral tablet) 1 tab(s) [...] release capsule) 1 cap(s) Oral every day. Hoberg's wort (Hoberg's wort oral tablet) 1 tab(s) Oral 2 [...] Follow up: With: Address: When: MARJ PEREZ [address] [place] [address], [address] [place] [id number] [facility] (1) 01/09/2023 11:00 AM DIAGNOSIS Carpal tunnel syndrome, right Comment: WINNIE GOTTI NOTES [facility] 12-31-2022 Note Procedure: Decompres mary of [...] on: 12/31/2022 09:43 EDT] Ward Martinez DO [facility] 12-25-2022 Note [id number] [facility] 12-12-2022 Note [id number] [facility] 12-10-2022 Note procedure: Decompres mary of [...] None [Electronically Signed on: 12/10/2022 15:46 EDT] JuanWard DO [Verified on: 12/10/2022 15:46 EDT] Ward Martinez DO [facility] 12-10-2022 Note [facility] SURGERY Clinical Discharge Summary PERSON INFORMATION Name RY LERNER Age 87 Years 1935 Sex MALE Language Kazakh PCP Ezequiel CHAMBERS, John Rodríguez Marital Status Med Service Ambulatory Surgery Acct# Arrival 12/10/2022 13:13:28 Visit Reason SURGERY - LEFT CARPAL TUNNEL RELEASE Acuity LOS 019 02:57 Address: [address] [place] [address] Comment: PROVIDER INFORMATION VITALS INFORMATION Vital Sign [...] Follow up: With: Address: When: Ward Martinez [address] [place] [address], [address] [place] [address] [facility] (1) 12/18/2022 1:30 PM Type Location Start [facility] Surgery ([facility]) [facility] Main OR 12/31/2022 7:30 AM 12/31/2022 8:00 AM Confirmed DIAGNOSIS Carpal tunnel syndrome of left wrist Comment: PHYS DOC NOTES [facility] 11-06-2022 Note Cardiology Clinic No te Subjective Ry Lerner is a 87 y.o. 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 with [employer] on 10/13/2021 and paced 65% Echocardiogram [...] LV systolic funct (more content not included)... [facility] 11-06-2022 Note Patient here for [...] All other systems reviewed and are negative. [facility] 07-24-2022 Note [place] Cardiology Consul t Note Reason for visit: [...] Fib and underwent a single-chamber pacemaker. with [employer] on 10/13/2021 and paced 65% Echocardiogram [...] stress test about 12 years ago in [place], and was inpt hospital with noted a [...] Murmur: not hea (more content not included)... [facility] 07-24-2022 Note Review of Systems [...] the day. Also has questions about medications [facility] 06-02-2022 Evaluation note Encounter Date [...] treatment plan. 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 [id number] History general Narrative - Reported* Type Description Date Medical History HYPERTENSION Medical History STROKE Medical History HEAD INJURY Surgical History PACEMAKER 10/13/2021 Surgical History HERNIA X 2 Surgical History TONSILECTOMY Hospitalization History SEE ABOVE Food Runner Other Evaluation + Plan note No data available for this section [facility] Future App[facility]ments Appointment Date:08/27/2023 09:30:00 AM Scheduled Provider: Location:[facility] Appointment Type:FM Medicare Wellness Subsequent [facility] Future Appointments Appointment Date:10/02/2023 10:00:00 AM Scheduled Provider:Sheng Simms Location:[facility] Appointment Type:[facility] Scheduled Tests Laboratory* Alkaline Phosphatase Isoenzymes 09/30/23 * H. pylori Stool Ag 09/30/23 * Ferritin 09/30/23 * Iron Level 09/30/23 [facility] Evaluation note* Diagnosis Other atopic dermatitis- Primary Seborrheic keratosis [facility] No data available for this section [facility] No data available for this section [facility] Summary Purpose Family History No Family History Records FoundNo Family History Records FoundNo Family History Records FoundNo Family History Records FoundNo Family History Records FoundNo Family History Records FoundNo Family History Records Found No data available for this section No Family History Records Found Advance Directives No [...] and content) DATE CREATED AUTHOR 01/26/2022 [facility] DATE CREATED AUTHOR AUTHOR'S ORGANIZ ATION 04/25/2022 [facility] DATE CREATED AUTHOR AUTHOR'S ORGANIZ ATION 01/06/2023 [facility] DATE CREATED AUTHOR AUTHOR'S ORGANIZ ATION 01/06/2023 [facility] DATE CREATED AUTHOR AUTHOR'S ORGANIZ ATION 07/04/2023 [facility] DATE CREATED AUTHOR AUTHOR'S ORGANIZ ATION 08/31/2023 [facility] DATE CREATED AUTHOR AUTHOR'S ORGANIZ ATION 09/15/2023 [facility] DATE CREATED AUTHOR AUTHOR'S ORGANIZ ATION 10/03/2023 [facility] REASON FOR VISIT (unrecogniz ed section and content) Reason Comments Rash Specialty Diagnoses / Procedures Referred By Contlouis t Referred To Contact Dermatology Diagnoses eczema / skin changes texture changes Sheng Lagos MD [address] [place] [id number] Rebecca Conley MD [address] [address] Referral ID Status Reason Start Date Expiration Date Visits Re quested Visits Authorized [id number] Closed 07/05/2023 01/01/2024 1 1 Patient Care team informatio n (unrecognized section and content) 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 [facility]. provides no warranty or guarantee of the accuracy or completeness of information in this document.
[2023-10-17 16:10] LABS: H. pylori Stool Ag, EIA Negative (Negative)
== END 2023-10-15 10:49 | disposition home or self-care (01) ==
LOC: LAB 10:49
PROVIDERS: PCP Nurse Practitioner
DX: K28.4 Chronic or unspecified gastrojejunal ulcer with hemorrhage (principal); R74.8 Abnormal levels of other serum enzymes; K76.89 Other specified diseases of liver; K86.2 Cyst of pancreas; D64.9 Anemia, unspecified; Z68.30 Body mass index [BMI] 30.0-30.9, adult
CPT/HCPCS: 36415; 82728; 83540; 84075; 84080; 87338

== ENCOUNTER 2023-10-18 08:10 | Emergency (ER) | payer MEDICARE, SELFPAY ==
[2023-10-18 08:12] VITALS: BP 176/78; PULSE 83; RESP 18; TEMP 36.6; O2SAT 98; BMI 29.4
--- OUTSIDE RECORDS SUMMARY | 2023-10-18 08:17 | XMS_ITS | CCD ---
Author Organization [facility] Care Team Providers Care Marine Erector Name Role Phone UNKNOWN, PHYSICIAN Referring Unavailable SILVAJASON CRUZ Primary Care Unavailable HERCHER DEJON Attending Unavailable HERCHER, DEJON Admitting Unavailable PROVIDER, UNKNOWN Attending Unavailable PROVIDER, UNKNOWN Admitting Unavailable PROVIDER, UNKNOWN Attending Unavailable PROVIDER, UNKNOWN Admitting Unavailable Sonja Aden Unavailable Sheng Rey Primary Care Physician [phone] Ward Martinez Admitting Unavail able Juan, Ward Lyn Attending Unavail able John Nieves Primary Care Unavailable Juan, Ward Lyn Attending Unavail able John Nieves Primary Care Unavailable Juan, Ward Lyn Admitting Unavail able SILVA ., DR JASON Devlin Consulting Unavailable SILVA ., DR JASON Devlin Attending Unavailable SILVA ., DR JASON eDvlin Admitting Unavailable SILVA ., DR JASON Devlin Primary Care Unavailable SHAIKH Joe JUNIOR Attending Unavailable SILVA ., DR JASON Devlin Primary Care Unavailable MADELIN JUNIORIKH H Admitting Unavailable SHAIKH JUNIOR H Admitting Unavailable SILVA ., DR JASON [...] Unavailable Silva Jason CHAMBERS Primary Care Provider ADDIE HUSTON Attending Unavailable BRISSA, SHENG Referring Unavailable Rosa CHAMBERS, Petros Steven Attending Unavailable Brissa, Sheng L Attending Unavailable Brissa, Sheng L Attending Unavailable John Nieves Attending Unavailable Brissa, Sheng L Attending Unavailable Brissa, Sheng L Attending Unavailable Brissa, Sheng L Attending Unavailable Brissa, Sheng L Attending Unavailable Brissa, Sheng L Attending Unavailable Brissa, Sheng L Admitting Unavailable Brissa, Sheng L Attending Unavailable Brissa, Sheng L Admitting Unavailable Brissa, Sheng L Attending Unavailable Brissa, Sheng L Admitting Unavailable Brissa, Sheng L Referring Unavailable Mary Jane Garza Attending Unavailable Allergies Allergy Classification Reported Allergen(s) Allergy Type Date of Onset Reaction(s) Facility (2 sources) No Known Medication Allergies; Translations: [No Known Medication Allergies] Propensity to adverse reactions to drug (disorder) [facility] Medications Current Medications Medication [...] Daily, # 90 tab(s), Refills(s) 1, Pharmacy: [facility], 179, cm, 09/03/23 10:34:00 EST, Height/Length [...] Daily, # 90 tab(s), Refills(s) 1, Pharmacy: [facility]5, 178, cm, 07/03/23 9:26:00 EST, [...] 3 Chronic Other aftercare (1 source) Other rn gastroenterology (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 therapy; Translations: [OTH LONGTERM CURRENT DRUG THERAPY] Onset: 3 Episodic Other aftercare (5 sources) Encounter for therapeutic drug level monitoring; Translations: [ENC THERAPEUTC DRUG LEVL MONITORING] Onset: 3 Episodic Other aftercare (1 source) skilled nursing (current) use of anticoagulants; Translations: [GUARD SERGEANT CURRNT USE ANTICOAGULANTS] Onset: 3 Episodic Other [...] Test Name Value Interpretation Reference Range Facility [facility] 10-16-2023 Lab Reports [id number]#1 .00TIFF Normal [facility] Ambulatory Visit Summaryon 0 10-02-2023 Ambulatory Visit [...] choosing us for your care. Normal [facility] Family Medicine Office/Clini c Noteon 10-02-2023 Family Medicine Office/Clinic Note HPI Staff Ry is an 87 year old male presenting for 1 month follow up SOCOR[place] 09/04/23 Liver nodule, U/s of liver was ordered and referred to GI at [facility], labs drawn pt seen seen granite polisher 09/30/[address] with some [...] pt planning to take a trip to [place] tomorrow and will be gone for 9 [...] inactivated 04/14/20 (more content not included)... Normal [facility] Comment on above: Result Comment: Elec tronically Signed By: Brissa VICKERS, Sheng Calix\.br\Date and Time Signed: 03/06/24 10:41 EST Gastroenterology Office/Clin ic Noteon 09-30-2023 [...] Recorded SARS-CoV-2 (COVID-19 (more content not included)... [facility] Comment on above: Result Comment: Elec tronically Signed By: Greg CHAMBERS, Mary Jane Eddy\.br\Date and Time Signed: 09/30/23 14:51 EST Consultation Noteon 09-09-19 24 Consultation Note [id number]#1 .00TIFF [facility] Physician Referralon 024 Physician Referral [id number]#1 .00TIFF [facility] Family Medicine Office/Clini c Noteon 09-04-2023 Family Medicine Office/Clinic Note HPI Staff Raza is a 87 year old male presenting to review x-rays Pt has x-rays done on 08/28/23, CT chest on 08/30/[address] right shoulder 09/02/23 Pt needs refill on furosemide pt states he went to information systems technician Dr 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 pt referred to GI at [facility]. liver enzymes ordered as well. pt will have labs drawn at [facility]. RTC 1 month to touch base with all of the additional testing and referral we have placed. Ordered: [facility] Internal Ambulatory Referral 2. Nodule of kidney [...] stools and HGB dropped critically low Ordered: [facility] Internal Ambulatory Referral 5. Abnormal x-ray of cervical spine (R93.7: Abnormal findings on diagnostic imaging of other parts of musculoskeletal system) CT of cervical spine ordered 6. Rotator cuff tear (M75.100: Unspecified rotator cuff tear or rupture of unspecified shoulder, not specified as traumatic) pt informed that he has an old rotator cuff tear. pt declines referral to ortho at this time Ordered: [facility] External Ambulatory Referral 7. BMI 31.0-31.9,adult (Z68.31: [...] influenza virus (more content not included)... Normal [facility] Comment on above: Result Comment: Elec tronically Signed By: Sheng Simms\.br\Date and Time Signed: 09/04/23 12:27 EST Physician Referralon 024 Physician Referral [id number]#1 .00TIFF Normal [facility] Ambulatory Visit Summaryon 0 09-03-2023 [...] 10:00 AM EST With: Sheng Simms Where: [facility] [place] Normal [facility] Lab Report[facility] 09-03-2023 Lab Reports .[id number]#1 .00TIFF [facility] Lab Reports [id number]#1 .00TIFF [facility] Physician Orderon 09-03-2023 Physician Order [id number]#1 .00TIFF [facility] Consultation Noteon 08-30-19 Consultation Note [id number]#1 .00TIFF [facility] Physician Orderon 08-30-2023 Physician Order [id number]#1 .00TIFF [facility] Physician Orderon 08-29-2023 Physician Order [id number]#1 .00TIFF [facility] Physician Order [id number]#1 .00TIFF [facility] RAD - MISCon 08-29-2023 RAD - MISC [id number]# 1.00TIFF [facility] RAD - MISC [id number]# 1.00TIFF [facility] RAD - MISC [id number]#1 .00TIFF [facility] Ambulatory Visit Summaryon 0 08-28-2023 Ambulatory [...] 10:20 AM EST With: Sheng Simms Where: [facility] [place] Normal [facility] Family Medicine Office/Clini c Noteon [...] of clutter to prevent tripping and/or falling. [place] Advance Directives reviewed, yes on file in [...] UTD, patient to bring cholesterol results to [facility]. Colonoscopy up to date, last completed 12/12/2022. [...] has a difficult (more content not included)... [facility] Comment on above: Result Comment: Elec tronically Signed By: Sheng Simms\.br\Date and Time Signed: 08/28/23 13:35 EST\.br\Electronically Co-Signed By: Rene Brannon\.br\Date and Time Co-Signed: 08/28/23 13:09 EST [facility] 08-28-2023 Forms [id number]#1 .00TIFF [facility] Patient Educationon 08-28-19 Patient Education Caregiving [...] night-lights. ? Place frequently used items in hxqr-hf-rfnis places. Lower the shelves around your home [...] the way. ? Do not use floor ukrainian or wax that makes floors slippery. If [...] include working with a physical therapist or clinical provider trainer to improve your strength, balance, and endurance. Where to find more information ? Centers for Disease Control and Prevention, [place]: www.cdc.gov ? National [place] [employer] A[place]: www.ed.nih.gov Contact a health care [...] health ca (more content not included)... Normal [facility] Physician Referralon 023 Physician Referral [id number]# 1.00TIFF Normal [facility] Ambulatory Visit Summaryon 1 09-03-2022 [...] Follow-Up Appointments Saturday 11:00 AM EST Where: [facility] [place] Normal [facility] Family Medicine Office/Clini c Noteon [...] is worsening. all questions answered. RTC for [facility] visit. pt will needs CBC and CMP drawn at that visit. Ordered: [facility] External Ambulatory Referral [facility] External Ambulatory Referral 2. Skin texture changes (R23.4: Changes in skin texture) pt has a couple areas on his face that have changes in shape and color and will come off or flake off then comes back. Dr. Silva froze a couple areas a few years ago. will refer to dermatology to manage these areas and his eczema. Ordered: [facility] External Ambulatory Referral [facility] External Ambulatory Referral 3. BMI 31.0-31.9,adult (Z68.31: Body mass index [BMI] 31.0-31.9, adult) BMI education complete Ordered: Body Mass Index (BMI) documented 3008F Current tobacco non-user 1036F Depression Screening Negative 3352F [facility] External Ambulatory Referral [facility] External Ambulatory Referral Influenza immunization status assessed [...] non-user 1036F Depression Screening Negative 3352F [facility] External Ambulatory Referral [facility] External Ambulatory Referral Influenza immunization status assessed [...] non-user 1036F Depression Screening Negative 3352F [facility] External Ambulatory Referral [facility] External Ambulatory Referral Influenza immunization status assessed [...] changes Historical (more content not included)... Normal [facility] Comment on above: Result Comment: Elec tronically Signed By: Sheng Simms.viviane\Date and Time Signed: 07/03/23 12:49 EST Lab Report[facility] 07-02-2023 Lab Reports [id number]#1 .00TIFF Normal [facility] Office Visiton 05-15-2023 Follow-up visit [id number] Ry Lerner 1935 M [facility] 05/15/2023 CHARISSE WINSLOW [facility] Family History Family history unknown: Yes Level of Service:87707 [place] OFFICE/OUTPATIENT ESTABLISHED MOD MDM 30-39 MIN [facility] Physician Referralon 023 Physician Referral [id number]#1 .00CD:127 [facility] Consultation Noteon 03-11-20 Consultation Note [id number]#1 .00CD:127 [facility] Office Visiton 02-08-2023 Follow-up visit [id number] Ry Lerner 1935 [facility] 02/08/2023 CHARISSE WINSLOW [facility] Family History Family history unknown: Yes Level of Service:93243 [place] OFFICE/OUTPATIENT ESTABLISHED MOD MDM 30-39 MIN [facility] Family Medicine Office/Clini c Noteon [...] at this time. Patient was treated at [facility]. Questions/Concerns: History of Present Illness [...] to follow up with Dr. Vargas in [place] and also placed a GI consult. since then his so he has not made any of those appointments. pt wants to stop taking lasix. encouraged daughter to make appointment with Dr. Vargas and let him decide if he can stop lasix. will draw pt/ptt in office today and compare to labs that were drawn in [place] end of November. still waiting for those labs. will call pt tomorrow once we have lab results. omeprazole refills also sent to pharmacy. they will hold off on GI referral until they get meds situated with sticker machine operator. Dr. Vargas's office was called [...] 06/13/2020 Recorded (more content not included)... Normal [facility] Comment on above: Result Comment: Elec tronically Signed By: Sheng Simms\.viviane\Date and Time Signed: 01/23/23 16:36 EDT Auto Diffon 01-22-2023 Basophils/100 WBC (Bld) 0.5 % Normal 0.0-2.0 [facility] Comment on above: Order Comment: Order Added by Discern Expert. Performed By: #### 2 052662, [id number], 2107855, 1417090 ####[facility] [address] [place] [address] Basophils/Leukocytes Auto (Bld) [Pure # fraction] 0.0 E9/L Normal 0.0-0.2 [facility] Comment on above: Order Comment: Order Added by Discern Expert. Performed By: #### 2 403592, 60088771, 8114765, 4825033 ####[facility] [address] [place] [address] Eosinophils/100 WBC (Bld) 4.7 % Normal 0.0-8.0 [facility] Comment on above: Order Comment: Order Added by Discern Expert. Performed By: #### 2 020186, 01734297, 0360631, 0226209 ####[address] [place] [address] Eosinophils/Leukocyt es Auto (Bld) [Pure # fraction] 0.2 E9/L Normal 0.0-0.5 [facility] Comment on above: Order Comment: Order Added by Discern Expert. Performed By: #### 2 002175, 93792671, 3352901, 5977493 ####[facility] [address] [place] [address] Lymphocytes/100 WBC (Bld) 20.4 % Normal 14.0-50.0 [facility] Comment on above: Order Comment: Order Added by Discern Expert. Performed By: #### 2 882772, 81503151, 4555969, 5648909 ####[address] [place] [address] Lymphocytes/Leukocyt es Auto (Bld) [Pure # fraction] 0.8 E9/L Low 1.0-4.0 [facility] Comment on above: Order Comment: Order Added by Discern Expert. Performed By: #### 2 286933, 16875159, 1737291, 4884457 ####[address] [address] Monocytes/100 WBC (Bld) 7.6 % Normal 4.0-14.0 [facility] Comment on above: Order Comment: Order Added by Discern Expert. Performed By: #### 2 774240, 89582126, 7760578, 6970568 ####[address] [address] Monocytes/Leukocytes Auto (Bld) [Pure # fraction] 0.3 E9/L Normal 0.2-1.0 [facility] Comment on above: Order Comment: Order Added by Ronnie Expert. Performed By: #### 2 375664, 43671848, 1192233, 5090715 ####[address] [address] Neutrophils/100 WBC (Bld) 66.8 % Normal 36.0-75.0 [facility] Comment on above: Order Comment: Order Added by Discern Expert. Performed By: #### 2 022081, 17600170, 6046274, 8865067 ####[address] [place] [address] Neutrophils/Leukocyt es Auto (Bld) [Pure # fraction] 2.5 E9/L Normal 2.0-7.5 [facility] Comment on above: Order Comment: Order Added by Ronnie Expert. Performed By: #### 2 235635, 34576765, 4946346, 4344691 ####[address] [address] CBC w/ Auto Diffon 3 Erythrocyte distribution width (RBC) [Ratio] 14.1 % Normal 10.9-14.2 [facility] Comment on above: Performed By: #### 2 978445, 08951596, 0288150, 2955667 ####[address] [place] [address] Hematocrit (Bld) [Volume fraction] 29.2 % Low 37.7-49.0 [facility] Comment on above: Performed By: #### 2 376662, 89573852, 6619082, 6658385 ####[address] [place] [address] Hemoglobin (Bld) [Mass/Vol] 9.7 g/dL Low 13.5-17.5 [facility] Comment on above: Performed By: #### 2 695962, 09084417, 1913366, 9177439 ####[address] [address] MCH (RBC) [Entitic mass] 32.2 pg Normal 27.0-34.0 [facility] Comment on above: Performed By: #### 2 331407, 32818562, 0726259, 6415936 ####[address] [address] MCHC (RBC) [Mass/Vol] 33.4 g/dL Normal 31.4-36.0 [facility] Comment on above: Performed By: #### 2 210776, 03340571, 3123067, 1974142 ####[address] [place] [address] MCV (RBC) [Entitic vol] 96.3 fL Normal 80.0-100.0 [facility] Comment on above: Performed By: #### 2 995151, 14193359, 9571140, 5619504 ####[address] [place] [address] Platelet mean volume (Bld) [Entitic vol] 9.1 fL Normal 6.4-10.8 [facility] Comment on above: Performed By: #### 2 101070, 40052796, 9494725, 7402817 ####[facility] [address] [place] [address] Platelets (Bld) [#/Vol] 138.0 E9/L Low 150.0-500.0 [facility] Comment on above: Performed By: #### 2 325265, 22302280, 1208098, 8051025 ####[facility] [address] [place] [address] RBC (Bld) [#/Vol] 3.0 E12/L Low 4.3-5.9 [facility] Comment on above: Performed By: #### 2 639120, 34584106, 3466452, 4240957 ####[address] [place] [address] WBC corrected for nucl RBC Auto (Bld) [#/Vol] 3.8 E9/L Low 4.0-11.0 [facility] Comment on above: Performed By: #### 2 417515, 78833824, 0143615, 1134921 ####[facility] [address] [place] [address] Lyteson 01-22-2023 Anion gap [Moles/Vol] 15 mmol/L Normal 6-16 [facility] Comment on above: Performed By: #### 2 093186, 23028196, 4352551, 6104287 ####[facility] [address] [place] [address] Chloride [Moles/Vol] 108 mmol/L Normal 101-111 [facility] Comment on above: Performed By: #### 2 800194, 60009260, 2631658, 4087318 ####[facility] [address] [place] [address] CO2 [Moles/Vol] 24 mmol/L Normal 21-31 [facility] Comment on above: Performed By: #### 2 211595, 08852526, 6959793, 6571258 ####[facility] [address] [place] [address] Potassium [Moles/Vol] 4.8 mmol/L Normal 3.5-5.3 [facility] Comment on above: Performed By: #### 2 477238, 05551887, 1325107, 7565748 ####[facility] [address] [place] [address] Sodium [Moles/Vol] 142 mmol/L Normal 135-145 [facility] Comment on above: Performed By: #### 2 106351, 64890305, 0964266, 8103176 ####[facility] [address] [place] [address] PT & PTTon 01-22-2023 aPTT Coag (PPP) [Time] 29.6 second(s) Normal 25.1-36.5 [facility] Comment on above: Result Comment: [...] same coagulation reagent and instrumentation as [facility]. Currently there are no coagulation studies available worldwide for children to 14 days, and no normal ranges. Heparin therapeutic range (represented by Anti-Factor Xa activity of 0.2 - 0.4 U/mL) corresponds to PTT of 56.6 - 109.0 sec. Performed By: #### 2 122985, 26391822, 3966599, 8113026 ####[facility] [address] [place] [address] INR Coag (PPP) [Relative time] 1.1 {INR} Invalid Interpretation Code [facility] Comment on above: Result Comment: INR results are specifically intended to assess patients stabilized on long-term Anticoagulation therapy suggested INR?s ?Less Intensive Anticoagulation? 2.0 ? 3.0 Conventional Range 3.0 ? 4.5 Performed By: #### 2 042218, 66851568, 2639407, 5156144 ####[facility] [address] [place] [address] PT Coag (PPP) [Time] 12.2 second(s) Normal 9.4-12.5 [facility] Comment on above: Result Comment: [...] same coagulation reagent and instrumentation as [facility]. Currently there are no coagulation studies available worldwide for children to 14 days, and no normal ranges. Performed By: #### 2 525042, 49211506, 2126869, 0583847 ####[facility] [address] [place] [address] Coding Summaryon 01-01-2023 Coding Summary HTMLBase 64 IetgwftkLGa2zSj+PGhlY WQ+QZ3LITXiM48qbUGjcQ 0rK1HDKCjAJwssMFTMFKn FJuBcphQoLZ0ktXRkBNSp IC8+CQ3wUZHgVeeudZBnv 1J6mCI3H23mot9xVWtmoW B4KTIqBaVbzqplv4qhjZs 6IDcuNmluOyBt IFFwtS70ZAF1zH41Xx61m JEqaQLzv5syfEj6RsHuSD TsSVJ7cShcSZypz9IyPNI sU87rbXKrt9N1 LQPesUtrsZZnMhAqpGD6q E2jWFedqqbpy8ztjejgZm t8wk00dITgd7B2rRB2Y2O athZ5JLJftREh ZyqrtRJSyA0ahgvrw5vgz xmuDdKaSYZeVSy5MJi7YO YieNogDpPzUV61RND9NGJ ewhPxY5FoXJTw sZtmZeO4t1D0Ym2RC7GQV mruD3QRFHSCOBbynZF+PC 25ww52M8BsLefrWbz3MWQ gTQO3lXT0qX9k ZYSgFSyln3Y0xDS4A5Ekd hPkcn1hv9ysSOIhRWlhK5 1afFBdg8U5HTEdzZA0GVE okTnyMjSidS96 Oyc+GTOxkMgfb0UfYwayk 8tvz5gigZb1HdskBAQgbl TioFqaCQZ7o5FiQr7gRNV jgOH7dGI6sE8s PsJxGzD1WLjaV837WqTxm OLhEgtnT56wJ3SloQW+PH VnJze4KQGvaSvsRD3hO0M hZGRpbmctbGVm aGcvVD7jWWBfqivxWBVib D1nSSAmG0e8QtVzBcA1HE emK8HzEGHsxmoaHt10dY1 nQqBmMfN9UQsz E0PfvaO2JBDbbFGgEYdeQ SY7L62kn3D5DPDaISBkIK J7jGS0wB8gfIroskkndCD mdDsgdmVydGlj DWcwWHdwG384ZPGduBcdT kNvZGluZyBEYXRlOiAgMD YvMDYvMjAyMzwvdGQ+PHR pQQA8dLmdXZBv fPEmZLhnTq5zuUbeuTybI M4fKRLqnkwgAYPukO7rZK LtpFLfbMtqFC2eMZWlkxl ca667BcQzRQF9 BGQiqRHjQ9NtqF6vBxPjV KXtPMMrI0GfdUCpVXfvU7 68GAlsBkS4BXTdlnGcT3S sLWFsaWduOiB0 y1J1Eb0Ly1GmkishB4Cqp HDwWoHmLngiYOb1L1TbQc wvdHI+TD72XWOtZS20NAo 8HLD1qEebXSgj POZiR7WnvX4uNmBzNBQyP GRkOyc+PHRhYmxlIHdpZH RoPScxMDAlJyBzdHlsZT0 fYm7dGRDhDFEl rRjuaLVlKbMod4axSEBfY LbrGS6qcGkeR1CxqXN9XB Iyp8w7Fd11K51vK6NccLR +GATjmPJ9xZG1 fG6sKaLzTaG8FVzxV044Y oRxnDLzOchzj9rtt9gqvK c3SkB7QLEsarRumKmbCZB 6j2SxBg38G22q IHdpZHRoPSIxNSUiIHZhb Kcgkm9gjF1pIw5+PGNvbC X8sJQ3oM1yLnWlVnR6MOx qJ633ScBnjMAe Veltz9aee1oikRt3TjHxG QYyurUmeNkdFJX0v2DoUv 67F2OnlGryo4NzYrf9cv7 2nAIxi2F3hYC4 U0WqCVOsfxamkJSvgVplQ R1zAWOdikseSDVzqI3vMF RmN8h9TbSjFiE6GBrbK7X hihK3DBRqsDPm BVDkbVYMhS0pozvay1xkt llaNcLlSYAxCFn6XCi0VO YliTqeBlCoYRC3WlQ6FBP 2rAHfxG3krBik gfwuzN1dKhy+WYE0cCIep WAMEP8cWemdnUG+PHRkIH Y0bGnzCGgoQMGjkU2pKIE kD0u5QxLiHdE0 GKevR2EndiU5QSMqbHFpX RJqpPGAkW5lidrce4fcih alAzKwCQBaYQj4JZh4ZAS saWduOiBsZWZ0 ByA8SRF8uTHffC6coKqft yoqzX3aSmr+QmlydGggRG G7VGy5S8KbZec1PNCwlDd qOX0kgVZlQGyr Fk8ylQxxmBqzGY7mVVGsw oool956QzWee9ciHQNfcN AwTDulHAG4D49tj1J7LVB wQGZgGEB8sIB2 oD9noNuuxaznpPGdgGkne qUhqFimOQdcLQyxV085ZC WqpBpjIpMpIGx7U7WtFiw 0JWUxhKxbPD5w xGMvXVwiEu2auAojbIojU A9rFRThwjhrr208FgCdy9 hbSHBdnGKkBQnwEHM1E53 oy5X2TVZwPJWu ZXA5gBK4pC0iuXztjdozd GVmdDsgdmVydGljYWwtYW reU986DREpdPtbDaXgvTg 8M4YcLtk8AITs aNasEN2wtFUdVValMi8cl SvquMegTX9oDAJampagt5 21MiDsf2ztGCWsdRFlDVa yQFR5I28bt4V4 AFScKPPlKYW3xNX5fO2fz GlnbjogbGVmdDsgdmVydG uiEHclRUglB288GLBjtIe nPlBhdGllbnQg HObbZGu2V2UpTtvcrMH+P P18KJLfLH92jUJxyQVxc6 kgwBw1YjWiLZZjWVC1lRn kUHwcu3ItVFAc W24icKSmc7F4GRMaqMkao XArWfLleZW4vY3tPShrby zvn1movilbPhink4taip1 2fG85M15oOKuq ZHRoPSIzMCUiIHZhbGlnb l3hwF7cGr9+IODgdVC3jW A7qI5wHKNcFhO3FDudV68 9InRvcCIvPjxj s9jxi5rlxSo0FxK8NMHnb iLcrRkfJVJ7o2UnKd58S8 9sIHdpZHRoPSIyMCUiIHZ urTlysx0siZ0r Ii8+PXNhoGF7mLW3mM8uZ yWrYqU5QSwyW721DbFskB HuPofaV48uK9JexVY+PHR qIub3GOMpdSmg AL0flCTuHHoqKy4sCLQ6F dSeYoNvBUohA6EvGWVzss kvsilvzUX5VJAwCMGuhT0 2Vn8uiZmsSWRi bFCJeR6dxmfxb3ydfqnnV eSwRWTfJNk9LAm0WRLawZ lrAkYeMGD8OdA7UPR3sUR rjM0mvGovlqjk dL2aM1GbGYKycjmpXq66e R3uGpUgKhO4PDwxArk+TU kVLLNCXOSSSVRBGX7HGSu DX27GQK30QY88 xHOfj1D1qZJ9J7WnODYbf dtvlkpusTY3ZPAlGDOahM 36tKRdRDfzDa3ma5X8g31 9YLChXGYhbO51 Li6wwBpgFSByqEIPgZ5mn yghw7zmewqbFyJzMQZkIJ n3WOh3JGLqkTcaIjQbUZI 7RnG6UBP2oBNx uG1cvGqpcmyrdP9dYdh+M DMvMDQvMTkzNTwvdGQ+PH IjSDY1kXulGYytDYQxdK9 pMCAuD7p7DhDp ViF8MOtjD8AmJGQlfgzsW f61wR5lRrKgYmT9GCmdJ8 UlddU3AQUobBOdYOmtPEY 3W56hp7Q5OQWi HCQyEHJ8hNA1iL6wmLbkj jogbGVmdDsgdmVydGljYW wgHEkaT413QPYewMvfMqb 6UTbzBGQpAY84 VM49oEOgu1Y0xKT0R4CqO XRkfnqzcqzvjDL7LLPkOA YzfH85hJUcZMdfCe3li8B 5b398JZPlYWBs oI32Jd1zoThvPWFhtFRYn I1akicwt1ggmiujEsGbFJ ToQFw1FPk2ENMhmOxhElO aTBC2PiX6LCP6 kWLztY1wlVuacgasiR8wP yc+TUFMRTwvdGQ+PHRkIH D5dFuwYDgdEWJmeP3vQJG iB6h8FfRhZoI8 SVtiK4EfXPAgdqekCg04m X4hGpYkNjI2UFmgR8Bpty S4UKJgmVGqOCvjJAA2E90 zm0Q1EYJpCGTa QIL8dXP2kW5pnFgdrfygu GVmdDsgdmVydGljYWwtYW chA661TFUxyYprWoMueKV NsBJoOES0BE33 NN72D2LpYupmyVPysVC+P HRhYmxlIHdpZHRoPScxMD AgLhYrhJroIE5tUd6lGGJ yLWNvbGxhcHNl UlRpj5nqURHrPRruBI7dh JabX9ScqRO7QKXat4i2Ra 64G97qF3WzrAW+PGNvbCB 1tUY2bD7uJgDr NmT4KHfkP393SsHhdZXwZ tgep2kbv6qkkPx5YrDnQE KxwhCwaNoqQDY5h1LqYf8 0W27yQXelMYRz MKJsKCHwHEPagNbckn3ur G9wIi8+HICalWM7sYK9pL 8rPsLdQfP1RAcbH842IfV wcAPiQqzkU35x U8LlyPM+DGEbBwl3AUOiq OnmFI1bhFQsRTibMc8vDX L8DkClUzCvZOnyJ9UaPFK pbmctcmlnaHQ6 JGEjEFBykH95Wx4sbVmtW h5pPEVdCHQ1BVWrwCDkY0 SqvK3oKgMdIMPpHFUpJ3F xqMZoDPvkD099 ECcqTsP1LMCpyyNyU1SdZ QFwrDhuYoQ5v0Y0Rc6PyU xqdPVhZP4yWwJaLBx6O5G yZhk1HJVhxOop VS3yzTUpOFteUn5lzFkwj LckBO3bDSAednygs336Mt Pzl3dmRDEtyCUnPUekUIP 6Y36vo7I9HZSp VRXwHZB7pAO2uC3ffIsyh jogbGVmdDsgdmVydGljYW oyKBqsV254EEMjoEjzOmY UEui2K0MeBxr8 HYQsgTtiYY5ipTGpFKhrU j1laYhtxZujQN5nEMWikh qch575DcEbd1zvOJQyyCP jMWaoMVE0N35x t4C3CBSzVUVsMJU6tAQ0p N8egSjjznfgnTBukBcnez QtoRtqXGnhBDsbI240PXY ybTqkFz9KIev5 L6DjZvv2EKRvoQcdQE4ru CKgCHcjPi1lyZyveWjbJZ 1wNIZjjpluv327PbBii8n kIDEwcHQgVGlt ZVO1M09mb7T1RQQvRUCfB DD2nHX4vQ2qqBklpdcwlM VmdDsgdmVydGljYWwtYWx eP036CXTicUbi PlBheWVyOjwvdGQ+PC90c x42K4LxXydoPtw7XSLhGO H3iZL4vS6xQNJpAElmt0J 7jKR6D3TumpGo ci1 (more content not included)... [facility] Consent Formson 01-01-2023 Consent Forms [id number]#1 .00OTGTIFF [facility] Inpatient Patient Summaryon 12-31-2022 Inpatient Patient Summary [facility] [address] [place] [address] Patient Discharge Instructions Name: RY LERNER : 1935 Patient Address: [address] [place] [address] Primary Care Provider: Name: John Nieves MD After you are discharged if you find you have any questions, please, call [phone] ext [phone] to speak to a nurse. Discharge Diagnosis: Carpal tunnel syndrome, right Prescription Information: If you have been given a prescription for narcotics, seek immediate medical attention if you have any difficulty breathing or any sudden status changes such as confusion and sleepiness. If you or anyone you know is experiencing suicidal thoughts, mental health, alcohol and/or drug addiction problems; contact the [facility] 18/02 Crisis Hotline -Text 4HPQX to 727674. If you received any narcotics, sedation, or [...] business decisions or sign any legal documents [facility] would like to thank you for allowing us to assist you with your healthcare needs. The following includes patient education materials and information regarding your injury/illness. RY LERNER has been given the following list of follow-up instructions, prescriptions, and patient education materials: Follow-up Instructions With: Address: When: MARJ PEREZ [address] [place] [address], [address] [place] [address] Business (1) 01/09/2023 11:00 AM Medications During [...] 1 cap(s) Oral every day. Lindsey's wort ([place]'s wort oral tablet) 1 tab(s) Oral 2 [...] release capsule) 1 cap(s) Oral every day. [place]'s wort (Lindsey's wort oral tablet) 1 tab(s) [...] 3. DO NOT lift heavy objects or millinery copyist forcefully with your hand 4. Change your [...] or concerns, please call the office at [phone] 7. Follow up as scheduled Viruses or Bacteria What?s got you sick? Antibiotics only treat bacterial infections. Viral illnesses cannot be treated with antibiotics. When an antibiotic is not prescribed, ask your healthcare professional for tips on how to relieve symptoms and feel better. Usual Cause Illness Viruses Bacteria Antibiotic Neede (more content not included)... [facility] Lab Reportson 12-31-2022 Lab Reports [id number]#1 .00CD:127 Normal [facility] MAGR Intraoperative Recordon 12-31-2022 MAGR Intraoperative Record MAGR Intra-Op Record Summary Primary Physician: Ward Martinez DO Finalized Date/Time: 12/31/22 11:56:55 Pt. Name: RY LERNER/Sex: 1935 MALE Med Rec #: [id number] Physician: Ward Martinez DO Financial #: [id number] Pt. Type: D Room/Bed: / Admit/Disch: 12/31/22 08:09:06 - 12/31/22 09:54:00 Institution: Case Times MAGR Entry 1 Patient In Room Time 12/31/22 09:15:00 Out Room Time 12/31/22 09:46:00 Anesthesia Start Time 12/31/22 09:29:00 Stop Time 12/31/22 09:41:00 Surgery Start Time 12/31/22 09:29:00 Stop Time 12/31/22 09:41:00 Last Modified By: [place] PERSAUD, Chelita Mcgrath 12/31/22 09:49:25 Case Attendance MAGR Entry 1 Entry 2 Entry 3 Case Attendee Ward Martinez RN, Lyndsey Christianson RN, DO Role Performed Surgeon - Primary Radio Electrician Radio Electrician Time In 12/31/22 09:15:00 12/31/22 09:15:00 12/31/22 09:15:00 Time Out 12/31/22 09:37:00 12/31/22 09:46:00 12/31/22 09:46:00 Procedure Carpal Tunnel Carpal Tunnel Carpal Tunnel Release(Right) Release(Right) Release(Right) Last Modified By: [place] PERSAUD, Chelita Borjas RN, Chelita Mc RN 12/31/22 09:49:26 12/31/22 09:49:26 12/31/22 09:49:26 Entry 4 Entry 5 Case Attendee Lavern Vasques Kelly MANAGER CLINICAL PHARMACY MANAGER CLINICAL PHARMACY Role Performed Records Management Associate Scrub Personnel Time In 12/31/22 09:15:00 [...] By Chelita Borjas RN Scrub 10% Povidone-Iodine [place] Prep Area (Im.270) Elbow and forearm, Prep Area Details Right Hand, Wrist Skin Prep Agent Dry Yes Without Pooling Hair Removal Syntegrity Hair Removal Methods No hair removal performed Outcome Met (O.100) Yes Last Modified By: Chelita Borjas RN 12/31/22 11:55:12 Pos (more content not included)... [facility] MAGR Preoperative Recordon 0 12-31-2022 MAGR Preoperative Record MAGR Pre-Op Record Summary Primary Physician: Ward Martinez DO Finalized Date/Time: 12/31/22 09:13:14 Pt. Name: RY LERNER PERRY More.O.B./Sex: 1935 MALE Med Rec #: [id number] Physician: Ward Martinez DO Financial #: [id number] Pt. Type: D Room/Bed: / Admit/Disch: 12/31/22 [...] Signed By: Vicky Ponce RN 12/31/22 09:13 [facility] Patient Handouton 12-31-[address] 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 Keep your hand elevated above your elbow for the first 24 hours after surgery 2. Wiggle your fingers frequently while awake 3. DO NOT lift heavy objects or millinery copyist forcefully with your hand 4. Change your [...] or concerns, please call the office at [phone] 7. Follow up as scheduled [facility] Physician Referralon 023 Physician Referral [id number]# 1.00CD:127 [facility] Living Will/POAon 12-26-2022 Living Will/POA [id number] .00CD:127 Normal [facility] CBC AUTO DIFFon 12-25-2022 BASO # 0.0 103/ul Normal 0.0-0.1 [facility] Comment on above: Performed By: #### C BC #### [facility] [address] [place] [address] Dr. Rashmi Nolan Basophils/100 WBC (Bld) 0.6 % Normal 0.2-2.0 [facility] Comment on above: Performed By: #### C BC #### [facility] [address] [place] [address] Dr. Rashmi Nolan EO # 0.2 103/ul Normal 0.0-0.7 [facility] Comment on above: Performed By: #### C BC #### [facility] [address] [place] [address] Dr. Rashmi Nolan Eosinophils/100 WBC (Bld) 6.9 % Normal 0.9-7.0 [facility] Comment on above: Performed By: #### C BC #### [facility] [address] [place] [address] Dr. Rashmi Nolan Erythrocyte distribution width (RBC) [Ratio] 14.0 % Normal 11.0-15.0 [facility] Comment on above: Performed By: #### C BC #### [facility] [address] [place] [address] Dr. Rashmi Nolan Hematocrit (Bld) [Volume fraction] 29.8 % Critically low 42.0-54.0 [facility] Comment on above: Performed By: #### C BC #### [facility] [address] [place] [address] Dr. Rashmi Nolan Hemoglobin (Bld) [Mass/Vol] 9.8 g/dL Critically low 14.0-18.0 [facility] Comment on above: Performed By: #### C BC #### [facility] [address] [place] [address] Dr. Rashmi Nolan IG # 0.02 10e3/ul Normal 0.00-0.03 [facility] Comment on above: Performed By: #### C BC #### [facility] [address] [place] [address] Dr. Rashmi Nolan IG % 0.6 % Critically high 0.0-0.5 [facility] Comment on above: Performed By: #### C BC #### [facility] [address] [place] [address] Dr. Rashmi Nolan LYMPH # 0.8 103/ul Critically low 1.2-3.8 [facility] Comment on above: Performed By: #### C BC #### [facility] [address] [place] [address] Dr. Rashmi Nolan Lymphocytes/100 WBC (Bld) 25.1 % Normal 20.5-60.0 [facility] Comment on above: Performed By: #### C BC #### [facility] [address] [place] [address] Dr. Rashmi Nolan MANUAL DIFF REQ NO Normal [facility] Comment on above: Performed By: #### C BC #### [facility] [address] [place] [address] Dr. Rashmi Nolan MCH (RBC) [Entitic mass] 33.0 pg Normal 25.9-34.0 [facility] Comment on above: Performed By: #### C BC #### [facility] [address] [place] [address] Dr. Rashmi Nolan MCHC (RBC) [Mass/Vol] 32.9 g/dL Normal 29.9-35.2 [facility] Comment on above: Performed By: #### C BC #### [facility] [address] [place] [address] Dr. Rashmi Nolan MCV (RBC) [Entitic vol] 100.3 fL Critically high 80.0-94.0 [facility] Comment on above: Performed By: #### C BC #### [facility] [address] [address] [address] Rashmi Nolan MONO # 0.3 103/ul Normal 0.3-0.8 [facility] Comment on above: Performed By: #### C BC #### [facility] [address] [address] [address] Rashmi Nolan Monocytes/100 WBC (Bld) 9.6 % Normal 1.7-12.0 [facility] Comment on above: Performed By: #### C BC #### [facility] [address] [place] [address] Dr. Rashmi Nolan NEUT # 1.9 103/ul Normal 1.4-6.5 [facility] Comment on above: Performed By: #### C BC #### [facility] [address] [place] [address] Dr. Rashmi Nolan Neutrophils/100 WBC (Bld) 57.2 % Normal 43.0-75.0 [facility] Comment on above: Performed By: #### C BC #### [facility] [address] [place] [address] Dr. Rashmi Nolan Platelet mean volume (Bld) [Entitic vol] 10.5 fL Normal 9.5-13.5 [facility] Comment on above: Performed By: #### C BC #### [facility] [address] [place] [address] Dr. Rashmi Nolan PLT 129 103/ul Critically low 150-450 [facility] Comment on above: Performed By: #### C BC #### [facility] [address] [place], [place] [id number] Dr. Rashmi Nolan RBC 2.97 106/ul Critically low 4.70-6.10 [facility] Comment on above: Performed By: #### C BC #### [facility] [address] [place] [address] Dr. Rashmi Nolan WBC 3.3 103/ul Critically low 4.0-11.0 [facility] Comment on above: Performed By: #### C BC #### [facility] [address] [place] [address] Dr. Rashmi Nolan PROTIMEon 12-25-2022 INR Coag (PPP) [Relative time] 1.03 {INR} Normal [facility] Comment on above: Performed By: #### B MP #### [facility] [address] [place] [address] Dr. Rashmi Nolan INR GUIDELINES SEE BELOW Normal [facility] Comment on above: Result Comment: ENOC RED INR: 2.0 - 3.0 CONDITIONS NOT LISTED BELOW 2.5 - 3.5 FOR PROSTHETIC HEART VALVE REPLACEMENT 2.5 - 3.5 RECURRENT THROMBOSIS Performed By: #### B MP #### [facility] [address] [place] [address] Dr. Rashmi Nolan PT Coag (PPP) [Time] 10.9 s Normal 9.0-11.6 [facility] Comment on above: Performed By: #### B MP #### [facility] [address] [place] [address] Dr. Rashmi Nolan PTTon 12-25-2022 aPTT Coag (Bld) [Time] 25.6 s Normal 22.3-36.2 [facility] Comment on above: Performed By: #### C BC #### [facility] [address] [place] [address] Dr. Rashmi Nolan Ambulatory Visit Summaryon 0 [...] numbers. This can be done either in [place] or metric measurements. Note that charts and online BMI calculators are available to help you find your BMI quickly and easily without having to do these calculations yourself. To calculate your BMI in [place] ([place] measurements: 1. Measure your weight in [...] fat. ? (more content not included)... [facility] Family Medicine Office/Clini c Noteon 12-21-2022 Family Medicine Office/Clinic Note Chief Complaint Hospital stay follow up HPI Staff Presents for hospital follow up [facility] 12/11-12/14 bleeding ulcer/bloody stools Had Upper and lower scope done. found diverticulosis and bleeding ulcer. Questions/concerns: eczema, why needs to stay on Lasix, why taken off warfarin when to start back up. History of Present Illness pt presents today fro follow up for admission to [facility] for GI bleed Review of Systems PHQ [...] today for follow up from admission to [facility] for GI bleed. he received 2 units of blood. and had egd and colonsocopy that show a gastic ulcer and diverticulosis. he was cleared by GI yesterday. he remains off of his warfrin for now. Dr. Silva spoke to Dr. Black (Faulkner's sticker machine operator) and he was ok with [...] 06/02/2013 Recorded influenza, whole 05/29/2005 Recorded Normal [facility] Comment on above: Result Comment: [...] numbers. This can be done either in [place] ([place] or metric measurements. Note that charts and online BMI calculators are available to help you find your BMI quickly and easily without having to do these calculations yourself. To calculate your BMI in [place] ([place] measurements: 1. Measure your weight in [...] for Disease Control and Prevention: www.cdc.gov ? [place] Heart Association: www.heart.org ? National Heart, Lung, and Blood [place]: www.nhlbi.nih.gov Summary ? Body mass index (BMI) is a number that is calculated from a person's weight and height. ? BMI may help estimate how much of a person's weight is composed of fat. BMI can help identify those who may be at higher risk for certain medical problems. ? BMI can be measured using [place]ian measurements or metric measurements. ? BMI charts are used to identify whether you are underweight, normal weight, overweight, or obese. This information is not intended to replace advice given to you by your health care provider. Make sure you discuss any questions you have with your health care provider. Document Revised: 04/06/2020 Document Reviewed: 02/12/2020 [employer] Patient Education ? 2022 [employer] Coding Summaryon 12-19-2022 Coding Summary [employer]Base 64 GkgosswfKAr9dZp+PGhlY WQ+IE2NIBRhL40frDLbhL 4uB7RHHGyZSqjeVWVPCFf JYjNvyrQeXZ1wvFPbIUOl IC8+EF9xZIGgMoosyZKdm 6Q2jYM2J06oda4xOSfcnN K9ALCfTnSxhgvqs7ojsAc 6IDcuNmluOyBt MJDksX04HUP1yZ56Tl58k RIrwUSma1amlZn7SrKqSJ JaRJY9eIpkLYizt0CqMIQ gH85nsWQar1Z5 DEShuMtteACvQmXacBY3s U3pBPbfmqqdh8lnpdrgQh b6zr09vTJnf0E4xCO7B8J jmzR6ZWFhpKTp TleofEVVuC2cpmorb2vpy knqVdGrILNbCMe4MNe9EH SrwTjxQqTjHL77YGF6DCR tziYjL0KwDKUu aZiwHeD6g0Y2Ai4LG5XLJ jsmV5BCXQHCATsweYF+PC 99uh53A1UxDlmyCii7VJR sFJK1bTO5jT3p XAYpAWadi6P2jYT9F6Tsj dMecr5jt6vgFKYuAIhrQ2 9jdOLye6X2EBRxjMS2JKW reOyoIcIpqV18 Oyc+LSSouGhjk4MdYhtja 0mkp5fakJv3ImvkPOOajo ErrMvtKWC2r1ShZq0xLQV qvCF6wCM5gV6i AcTdJmN4JWccC730BoGwi WEeClldL14rO3MhkGO+PH PzRvv9IMWbbAzeHC1nZ0O hZGRpbmctbGVm oOdlJQ8jVPRqnfihDBWxx U1fXUJeB7j9NbDqZoL9KK hiC1TzDFHtjbdrBf67eX8 dNcCpIpH8WTjs A5PlbfZ4LPGjlUNhJHlvH ZX4Z75kw1S8YTIeCRNeAJ W2iPC1cO7lmAyxtevekHF mdDsgdmVydGlj SCbyTCqdL517JOEkvRvtQ kNvZGluZyBEYXRlOiAgMD UvMjQvMjAyMzwvdGQ+PHR wURX6cRekWHYk jPIhUDzvUe1rgIollNspK T4lMBYpqcyxEDZnxZ7iCI BymHSxoXmzNN7lWXZsmdq nn689UlPxZQW9 SINmfNRbQ1XalR5wPlMyD CPmPIDgJ7YnqYUpKIgdP6 30SRezHcI3RSSpllOgW9V sLWFsaWduOiB0 k3D6Ev0Qe8MpnozkW1Xaz TVwMmDhIdapHBw7Z7KzLn wvdHI+HA22OYZsEI35CVd 2ZAC5dTkvXDgc NHJzD9SthT1oLpXnMUTrT GRkOyc+PHRhYmxlIHdpZH RoPScxMDAlJyBzdHlsZT0 aFk7bRCNvZQWw lMpcyJRxLmKra8roPGLgI EfiMA0vyMilU3GdaUP4PE Yiz3t0Mk47V92cA2UhzAM +DTEbxOM6hQY4 cX6uVaMmBaN9ECeoH379S mDppQIeUhksn2ogf2kaxV s3PoE8KZUeacKwaNqxPIO 0v7HpGq52O26m IHdpZHRoPSIxNSUiIHZhb Ylqjp9ivN7mMq6+PGNvbC X0tRP0wW5gNhFpUwP8ZJu aN341ZyKnhBDs Slvod8hse2dgkXu8UhRuB PDpdoZrhHswDXH6i9ArAk 65W4KtoGule1SjDbg2xm9 2bECxr0Y2uPI2 O8KoHJLpgewcsEUwhSukT F8qJZIxybkdDSPpkS3aDY DyQ9k6QlDcRmW8KYexU6L krvS9DDKlqKAl CEXbvDZHcF3ugfkcw3uvc fmyOdHiRXHzFRn5MKk5NW FbrGnfUeJrQYL1UbA9DZU 6aONsrD4qrPem cplzmP6qAfx+PNG8rYBob VCCAP0vXmghwIA+PHRkIH P7qVriIVxrAZBjbP7vLJC dD0p9SlKoTtK7 CMvcQ8XhwvG1OVNesUVyY SMsjFXIpM1bxvtdo4qmhr ljTcBqTRMeXFe6BUs9YGH saWduOiBsZWZ0 BbD9GTE6jESloT3frStxv iuahO1wQyz+QmlydGggRG M4RSh2B7PzQvl3EKDkyZz kUN7tbKNeDLvl Rh5naQkxoEtfND8rHHKlv uaja211YaPuo3cgTIQyuF JaWWdjSKJ5R27ff4M3PJT fKVRnYLB7uFL3 jU4vmGanfccynAWvuCicu tKmpVifSHomYPayG321HZ OywEwjJbObHLt7W6CfNxe 6VTNjcApyWY3d fAUeFDvxNi5mqJbdhDcsR I5cUZIojqwze133NvQmg8 gxYRFbqXLjVAjhWTR5F99 gq4Y3NCVrOSIq XFT8gQJ9cV1ofOgbxmmwj GVmdDsgdmVydGljYWwtYW hcD586FAZzxDipBrFxaIr 8V9QaCsk7QOAa dRmxHT8zwTVkBDkmZh7un NlqrExgHW4xVOMoscqje3 94ZkBkk5zhPSCzcWBpBXa hUPL2L95pf9A7 LQClTSFwYVK7sUI9zW2pz GlnbjogbGVmdDsgdmVydG wtITezOHcwV385BMUppWi nPlBhdGllbnQg UTmkEOe6P5NwWpeleUJ+P R05RVLqLM85pHEvkDOxs0 ruiUh7HlRqWOQbKOT8bDz dQEdqy9BcZHAq F95yzZYxw0Z6OKIgoWlvw UBlZtItySH6bM7lVUvmfd llb8mkyurdOtggg7zvqa6 8wT64W89uKYdu ZHRoPSIzMCUiIHZhbGlnb l5hvA3nYg7+TZGymSE0aN A4uE7dGHFkViM7JCpwL82 9InRvcCIvPjxj u7smv0azbEj3NvP3AGHis fAzsThaURM5p2YbMh63U8 9sIHdpZHRoPSIyMCUiIHZ ysUfqpn5khZ8d Ii8+CODkwSQ6dYS1iG4jC hAuRiM7KAycB043BsHtxL LrIdxwF47aC8KjkBN+PHR qCcf9OJJfoDjx CB4jaAZpVMfoXh9tNRP6V qTdFyMvEZdnX1QbNEBysh gmdurpbLM4GKLmMWTkyT7 2Lt9xkUfyTXPi fVUMuJ7zixhdm1srbjhvD eIvJWDzRPu4LUb9FPQbpY tiJmGzOLW5UkD7KGG5aJW qoI3kaSomaemd eY5sT0FiBBVxiwipVf00q X9dOlEnGbE4JKkcBrc+TU jRYXVVZWNRRGOVUE0EMVv MD19OYZ45ZW89 tUEzr6I2pOZ5S7SnMCFqw whemfmvzBU7FKPhTEOvbS 45xGMwGWjsMs8ov0Y9q54 0SXOoTTQohD84 Jv0qzCxdQONlpTAPjG4br feny0graeegMzKeUGPcIZ p1CAs0OWJitPagFiFuVDR 1BsA6FXC4qBHa aZ9glCyypwfucU6zRdh+M DMvMDQvMTkzNTwvdGQ+PH QvNUB8fGjmFMjjLKWfvF2 nOWFpB7u7GiLd ExY3FYrrQ1QmJTFcfeeuG g77oK1nFrJsBxE5DZbeV4 MpcyX6AEMalRByBPyjAVD 2F93th3O9GAQm KKIqLSH5wBQ7uD2fwTkpx jogbGVmdDsgdmVydGljYW rgKBhyY236GSVepFmxVsq 6VPujYMIgNT27 GK37vDCit1X6dVU0Z4BcH PJuethuzrwvfCC6DDAuTD HkeE63zGJsSKqtGd1si5S 3n794RAGpNUVx lH64Vi5rkCmuTMPptTIQy E4xecyga4diugxzDhDyNF KoCEr5WMc1VTPxkJxyDdJ jLYB4BsU2JOI4 vBNokD8ckCtrlrtpuG3cK yc+TUFMRTwvdGQ+PHRkIH C1uSqbJIuuXVZvzX0zRGP kW1m1MdStIuM0 ONhtS6LsGEFrlokxKi50a A7mRhWxGmR0XBfdW7Gfvl I9FNYigWAlMItwILT0I21 od6J6RTXbSHYg XLO7oFU2zO0hnZmmxgtqg GVmdDsgdmVydGljYWwtYW aiX459ZXGgaYvuXtObjJL OcVUhEMI4UK96 UX13Y1IcKmepdKEkdPX+P HRhYmxlIHdpZHRoPScxMD PuDaHwoZooSR4gMe8lWIX yLWNvbGxhcHNl YdKsz4xhKSYmCPelKJ7vn BhjY9XyfKQ8RAWvo9o3Ez 35Z46eW6WaiBX+PGNvbCB 0nYR3rQ7sKzAs ByK9YImfF424VyKhuMGkP qbsd3vfk3upuKp3DbFfZU VhxaGvtLjxFZR2h3NkZp5 8E13tEMstXOSl UQDhHTDrGJPbuDpxln5vk G9wIi8+SXBkaAC2sZK5rG 6hOyNuAdG0EHgeI130LpV tfRTyEjjjV38t V2OytQM+QEOiNpw5GBQzw FzlNH1dlOVwXKubLq0mHH F1WwQtYjGhHFgkM7WpUJX pbmctcmlnaHQ6 SDDeZAArkA77Fj0ifGgrU a6dIQRkHVG4BRFtnWPjL1 JyvB4zFyNfZRYhWSNjG5S mkSLzGNkuF922 QSbbTjY4UOMogoPbS8SyW BYzoEaiPsE2u3F9Bb6ZlQ ilkKFkDG4xHaPmMOb1T7H oBbu4SMBltZix YT6tnMHlIYtnWn7wiVcfs TytAE2dWQLmaylpv323Zg Wsz9rlLEDwcLAoFKrnLPK 4G93ko9I6ZZPx UAWgPRO7hBQ8aW3vmSzpd jogbGVmdDsgdmVydGljYW brSTlnM492VIRquRnpPwJ YDzp1T2MuInj3 OKVwaHwzEW8gkQPlRHzwC g7exJhmxWujJZ9nUDAidt gxu258RgLiz8szOHOlxZK cVCbyJQO8R59s s9R3KLAuOMEzQBB9rUH8v Q9dxUgmafvxlZDajAfiqo FbrVqoQBccVTwmV259FBR ueCitXl5OWlf4 R7NgLjl5MWRerCwdVB9ua PZgVXlwOk5rvWozhOdkRO 6sMIIzhktpr638QuVml3m kIDEwcHQgVGlt VHU3G17hi2X4UVLtGJBoL RU1qCV9aZ0ilRihshfyfT VmdDsgdmVydGljYWwtYWx uT533NLEwyUev PlBheWVyOjwvdGQ+PC90c q70U1HlWedrWaz9EXCjTV C7nDT1sS9eGEShAWato5J 7qVL7K4FbtiQm ci1 (more content not included)... [facility] [place] 12-18-19 23 Population Health Case Information Case Priority: None Programs: -- Referral Source: Lpn Instructor Referral Reason: Care coordination Case Type: Transition [...] any questions or concerns. Patient currently at [facility], [facility] unable to provide patient with contact number, but did advise patient to call office and ask to speak with critical care educator if he had any questions or concerns. Communication Events Date: December 17, 2022 Method: Phone call Type: Outbound Duration (min): 5 Outcome: Case discussion Contact Type: Patient Contact Name: RY LERNER Notes: TCM #1-see summary note. Created By: Ezequiel PERSAUD, Sandra Calix [facility] CBC AUTO DIFFon 12-14-2022 BASO # 0.0 103/ul Normal 0.0-0.1 [facility] Comment on above: Performed By: #### C BC #### [facility] [address] [address] [address] Rashmi Nolan Basophils/100 WBC (Bld) 0.6 % Normal 0.2-2.0 [facility] Comment on above: Performed By: #### C BC #### [facility] [address] [address] [address] Rashmi Nolan EO # 0.4 103/ul Normal 0.0-0.7 [facility] Comment on above: Performed By: #### C BC #### [facility] [address] [address] [address] Rashmi Nolan Eosinophils/100 WBC (Bld) 11.9 % Critically high 0.9-7.0 [facility] Comment on above: Performed By: #### C BC #### [facility] [address] [place] [address] Dr. aRshmi Nolan Erythrocyte distribution width (RBC) [Ratio] 15.2 % Critically high 11.0-15.0 [facility] Comment on above: Performed By: #### C BC #### [facility] [address] [place] [address] Dr. Rashmi Nolan Hematocrit (Bld) [Volume fraction] 26.3 % Critically low 42.0-54.0 [facility] Comment on above: Performed By: #### C BC #### [facility] [address] [place] [address] Dr. Rashmi Nolan Hemoglobin (Bld) [Mass/Vol] 8.9 g/dL Critically low 14.0-18.0 [facility] Comment on above: Performed By: #### C BC #### [facility] [address] [place] [address] Dr. Rashmi Nolan IG # 0.01 10e3/ul Normal 0.00-0.03 [facility] Comment on above: Performed By: #### C BC #### [facility] [address] [place] [address] Dr. Rashmi Nolan IG % 0.3 % Normal 0.0-0.5 [facility] Comment on above: Performed By: #### C BC #### [facility] [address] [place] [address] Dr. Rashmi Nolan LYMPH # 0.8 103/ul Critically low 1.2-3.8 [facility] Comment on above: Performed By: #### C BC #### [facility] [address] [place] [address] Dr. Rashmi Nolan Lymphocytes/100 WBC (Bld) 25.1 % Normal 20.5-60.0 [facility] Comment on above: Performed By: #### C BC #### [facility] [address] [place] [address] Dr. Rashmi Nolan MANUAL DIFF REQ NO Normal [facility] Comment on above: Performed By: #### C BC #### [facility] [address] [place] [address] Dr. Rashmi Nolan MCH (RBC) [Entitic mass] 33.0 pg Normal 25.9-34.0 [facility] Comment on above: Performed By: #### C BC #### [facility] [address] [place] [address] Dr. Rashmi Nolan MCHC (RBC) [Mass/Vol] 33.8 g/dL Normal 29.9-35.2 [facility] Comment on above: Performed By: #### C BC #### [facility] [address] [place] [address] Dr. Rashmi Nolan MCV (RBC) [Entitic vol] 97.4 fL Critically high 80.0-94.0 [facility] Comment on above: Performed By: #### C BC #### [facility] [address] [place] [address] Dr. Rashmi Nolan MONO # 0.3 103/ul Normal 0.3-0.8 [facility] Comment on above: Performed By: #### C BC #### [facility] [address] [place] [address] Dr. Rashmi Nolan Monocytes/100 WBC (Bld) 9.0 % Normal 1.7-12.0 [facility] Comment on above: Performed By: #### C BC #### [facility] [address] [place] [address] Dr. Rashmi Nolan NEUT # 1.7 103/ul Normal 1.4-6.5 [facility] Comment on above: Performed By: #### C BC #### [facility] [address] [place] [address] Dr. Rashmi Nolan Neutrophils/100 WBC (Bld) 53.1 % Normal 43.0-75.0 [facility] Comment on above: Performed By: #### C BC #### [facility] [address] [place] [address] Dr. Rashmi Nolan Platelet mean volume (Bld) [Entitic vol] 10.2 fL Normal 9.5-13.5 [facility] Comment on above: Performed By: #### C BC #### [facility] [address] [place], [place] [address] Dr. Rashmi Nolan PLT 139 103/ul Critically low 150-450 [facility] Comment on above: Performed By: #### C BC #### [facility] [address] [place], [place] [address] Dr. Rashmi Nolan RBC 2.70 106/ul Critically low 4.70-6.10 [facility] Comment on above: Performed By: #### C BC #### [facility] [address] [place], [place] [address] Dr. Rashmi Nolan WBC 3.1 103/ul Critically low 4.0-11.0 [facility] Comment on above: Performed By: #### C BC #### [facility] [address] [address] [address] Rashmi Nolan MAGR Intraoperative Recordon 12-14-2022 MAGR Intraoperative Record MAGR Intra-Op Record Summary Primary Physician: Ward Martinez DO Finalized Date/Time: 12/14/22 09:30:19 Pt. Name: RY LERNER/Sex: 1935 MALE Med Rec #: [id number] Physician: Ward Martinez DO Financial #: [id number] Pt. Type: D Room/Bed: / Admit/Disch: 12/10/22 [...] Andrew DO Role Performed Surgeon - Primary Radio Electrician Radio Electrician Time In 12/10/22 15:05:00 12/10/22 14:54:00 12/10/22 14:54:00 Time Out 12/10/22 15:30:00 12/10/22 15:30:00 12/10/22 15:30:00 Procedure Carpal Tunnel Carpal Tunnel Carpal Tunnel Release(Left) Release(Left) Release(Left) Last Modified By: Maile Palmer RN, Barbara RN Long, Barbara RN 12/10/22 15:29:30 12/10/22 15:29:30 12/10/22 15:29:30 Entry 4 Entry 5 Case Attendee Macie Licea CST, CST, Brandi Role Performed Records Management Associate Scrub Personnel Time In 12/10/22 14:54:00 [...] By Maile Palmer RN Scrub 10% Povidone-Iodine [place] Prep Area (Im.270) Arm lower Prep Area [...] injury Counts (more content not included)... Normal [facility] Outside Colonoscopyon 2022 Outside Colonoscopy [id number] .00CD:127 Normal [facility] Outside [facility] Correspo zaida 12-14-2022 Outside Hospital Correspondence [id number] .00CD:127 Normal [facility] Outside [facility] Correspondence [id number] .00CD:127 Normal [facility] Outside [facility] Correspondence [id number] .00CD:127 Normal [facility] Outside [facility] Correspondence [id number] .00CD:127 Normal [facility] Outside [facility] Correspondence . [id number]#1 .00CD:127 Normal [facility] PROF CHEM 8 (BAS METB)on Anion gap [Moles/Vol] 12.6 mmol/L Normal [facility] Comment on above: Performed By: #### B MP #### [facility] [address] [address] [address] Rashmi Nolan Calcium [Mass/Vol] 9.7 mg/dL Normal 8.5-10.1 [facility] Comment on above: Performed By: #### B MP #### [facility] [address] [address] [address] Rashmi Nolan Chloride [Moles/Vol] 108 mmol/L Critically high 98-107 [facility] Comment on above: Performed By: #### B MP #### [facility] [address] [address] [address] Rashmi Nolan CO2 [Moles/Vol] 24.5 mmol/L Normal 21.0-32.0 [facility] Comment on above: Performed By: #### B MP #### [facility] [address] [address] [address] Rashmi Nolan Creatinine [Mass/Vol] 1.68 mg/dL Critically high 0.70-1.30 [facility] Comment on above: Performed By: #### B MP #### [facility] [address] [address] [address] Rashmi Nolan EGFR-AF FRENCH 47 mL/min/1.73m2 Critically low >=60 [facility] Comment on above: Performed By: #### B MP #### [facility] [address] [address] [address] Rashmi Nolna EGFR-NON AF FRENCH 39 mL/min/1.73m2 Critically low >=60 [facility] Comment on above: Performed By: #### B MP #### [facility] [address] [address] [address] Rashmi Nolan Glucose [Mass/Vol] 91 mg/dL Normal 74-106 [facility] Comment on above: Performed By: #### B MP #### [facility] [address] [address] [address] Rashmi Nolan Potassium [Moles/Vol] 5.1 mmol/L Normal 3.5-5.1 [facility] Comment on above: Performed By: #### B MP #### [facility] [address] [address] [address] Rashmi Nolan Sodium [Moles/Vol] 140 mmol/L Normal 136-145 [facility] Comment on above: Performed By: #### B MP #### [facility] [address] [address] [address] Rashmi Nolan Urea nitrogen [Mass/Vol] 27.0 mg/dL Critically high 7.0-18.0 [facility] Comment on above: Performed By: #### B MP #### [facility] [address] [address] [address] Rashmi Nolan Urea nitrogen/Creatinine [Mass ratio] 16.1 mg/mg Normal [facility] Comment on above: Performed By: #### B MP #### [facility] [address] [address] [address] Rashmi Nolan Transfer Inon 12-14-2022 Transfer In [id number] .00CD:127 Normal [facility] CBC AUTO DIFFon 12-13-2022 BASO # 0.0 103/ul Normal 0.0-0.1 [facility] Comment on above: Performed By: #### C BC #### [facility] [address] [address] [address] Rashmi Nolan Basophils/100 WBC (Bld) 0.6 % Normal 0.2-2.0 [facility] Comment on above: Performed By: #### C BC #### [facility] [address] [address] [address] Rashmi Nolan EO # 0.4 103/ul Normal 0.0-0.7 [facility] Comment on above: Performed By: #### C BC #### [facility] [address] [place] [address] Dr. Rashmi Nolan Eosinophils/100 WBC (Bld) 10.3 % Critically high 0.9-7.0 [facility] Comment on above: Performed By: #### C BC #### [facility] [address] [place] [address] Dr. Rashmi Nolan Erythrocyte distribution width (RBC) [Ratio] 15.8 % Critically high 11.0-15.0 [facility] Comment on above: Performed By: #### C BC #### [facility] [address] [place] [address] Dr. Rashmi Nolan Hematocrit (Bld) [Volume fraction] 25.7 % Critically low 42.0-54.0 [facility] Comment on above: Performed By: #### C BC #### [facility] [address] [place] [address] Dr. Rashmi Nolan Hemoglobin (Bld) [Mass/Vol] 8.5 g/dL Critically low 14.0-18.0 [facility] Comment on above: Performed By: #### C BC #### [facility] [address] [place] [address] Dr. Rashmi Nolan IG # 0.00 10e3/ul Normal 0.00-0.03 [facility] Comment on above: Performed By: #### C BC #### [facility] [address] [place] [address] Dr. Rashmi Nolan IG % 0.0 % Normal 0.0-0.5 [facility] Comment on above: Performed By: #### C BC #### [facility] [address] [place] [address] Dr. Rashmi Nolan LYMPH # 0.8 103/ul Critically low 1.2-3.8 [facility] Comment on above: Performed By: #### C BC #### [facility] [address] [place] [address] Dr. Rashmi Nolan Lymphocytes/100 WBC (Bld) 23.5 % Normal 20.5-60.0 [facility] Comment on above: Performed By: #### C BC #### [facility] [address] [place] [address] Dr. Rashmi Nolan MANUAL DIFF REQ NO Normal [facility] Comment on above: Performed By: #### C BC #### [facility] [address] [place] [address] Dr. Rashmi Nolan MCH (RBC) [Entitic mass] 32.9 pg Normal 25.9-34.0 [facility] Comment on above: Performed By: #### C BC #### [facility] [address] [place] [address] Dr. Rashmi Nolan MCHC (RBC) [Mass/Vol] 33.1 g/dL Normal 29.9-35.2 [facility] Comment on above: Performed By: #### C BC #### [facility] [address] [place] [address] Dr. Rashmi Nolan MCV (RBC) [Entitic vol] 99.6 fL Critically high 80.0-94.0 [facility] Comment on above: Performed By: #### C BC #### [facility] [address] [place] [address] Dr. Rashmi Nolan MONO # 0.3 103/ul Normal 0.3-0.8 [facility] Comment on above: Performed By: #### C BC #### [facility] [address] [place] [address] Dr. Rashmi Nolan Monocytes/100 WBC (Bld) 8.9 % Normal 1.7-12.0 [facility] Comment on above: Performed By: #### C BC #### [facility] [address] [place] [address] Dr. Rashmi Nolan NEUT # 2.0 103/ul Normal 1.4-6.5 [facility] Comment on above: Performed By: #### C BC #### [facility] [address] [place] [address] Dr. Rashmi Nolan Neutrophils/100 WBC (Bld) 56.7 % Normal 43.0-75.0 [facility] Comment on above: Performed By: #### C BC #### [facility] [address] [place] [address] Dr. Rashmi Nolan Platelet mean volume (Bld) [Entitic vol] 10.5 fL Normal 9.5-13.5 [facility] Comment on above: Performed By: #### C BC #### [facility] [address] [place] [address] Dr. Rashmi Nolan PLT 134 103/ul Critically low 150-450 [facility] Comment on above: Performed By: #### C BC #### [facility] [address] [place] [address] Dr. Rashmi Nolan RBC 2.58 106/ul Critically low 4.70-6.10 [facility] Comment on above: Performed By: #### C BC #### [facility] [address] [place] [address] Dr. Rashmi Nolan WBC 3.6 103/ul Critically low 4.0-11.0 [facility] Comment on above: Performed By: #### C BC #### [facility] [address] [place] [address] Dr. Rashmi Nolan PROF CHEM 8 (BAS METB)on Anion gap [Moles/Vol] 11.7 mmol/L Normal [facility] Comment on above: Performed By: #### C BC #### [facility] [address] [place] [address] Dr. Rashmi Nolan Calcium [Mass/Vol] 9.5 mg/dL Normal 8.5-10.1 [facility] Comment on above: Performed By: #### C BC #### [facility] [address] [address] [address] Rashmi Nolan Chloride [Moles/Vol] 110 mmol/L Critically high 98-107 [facility] Comment on above: Performed By: #### C BC #### [facility] [address] [address] [address] Rashmi Nolan CO2 [Moles/Vol] 25.1 mmol/L Normal 21.0-32.0 [facility] Comment on above: Performed By: #### C BC #### [facility] [address] [place] [address] Dr. Rashmi Nolan Creatinine [Mass/Vol] 1.69 mg/dL Critically high 0.70-1.30 [facility] Comment on above: Performed By: #### C BC #### [facility] [address] [place] [address] Dr. Rashmi Nolan EGFR-AF FRENCH 47 mL/min/1.73m2 Critically low >=60 [facility] Comment on above: Performed By: #### C BC #### [facility] [address] [place] [address] Dr. Rashmi Nolan EGFR-NON AF FRENCH 38 mL/min/1.73m2 Critically low >=60 [facility] Comment on above: Performed By: #### C BC #### [facility] [address] [address] [address] Rashmi Nolan Glucose [Mass/Vol] 93 mg/dL Normal 74-106 [facility] Comment on above: Performed By: #### C BC #### [facility] [address] [address] [address] Rashmi Nolan Potassium [Moles/Vol] 5.8 mmol/L Critically high 3.5-5.1 [facility] Comment on above: Performed By: #### C BC #### [facility] [address] [address] [address] Rashmi Nolan Sodium [Moles/Vol] 141 mmol/L Normal 136-145 [facility] Comment on above: Performed By: #### C BC #### [facility] [address] [place] [address] Dr. Rashmi Nolan Urea nitrogen [Mass/Vol] 35.0 mg/dL Critically high 7.0-18.0 [facility] Comment on above: Performed By: #### C BC #### [facility] [address] [place] [address] Dr. Rashmi Nolan Urea nitrogen/Creatinine [Mass ratio] 20.7 mg/mg Normal [facility] Comment on above: Performed By: #### C BC #### [facility] [address] [place] [address] Dr. Rashmi Nolan ABO RH RETYPEon 12-12-2022 ABO and Rh group Nom (Bld) DONE Normal [facility] Comment on above: Performed By: #### C BC #### [facility] [address] [place] [address] Dr. Rashmi Nolan Auth for Release of Medical Recordson 12-12-2022 Auth for Release of Medical Records [id number] .[id number]:127 Normal [facility] CBC AUTO DIFFon 12-12-2022 BASO # 0.0 103/ul Normal 0.0-0.1 [facility] Comment on above: Performed By: #### C BC #### [facility] [address] [place] [address] Dr. Rashmi Nolan Basophils/100 WBC (Bld) 0.6 % Normal 0.2-2.0 [facility] Comment on above: Performed By: #### C BC #### [facility] [address] [place] [address] Dr. Rashmi Nolan EO # 0.3 103/ul Normal 0.0-0.7 [facility] Comment on above: Performed By: #### C BC #### [facility] [address] [place] [address] Dr. Rashmi Nolan Eosinophils/100 WBC (Bld) 7.6 % Critically high 0.9-7.0 [facility] Comment on above: Performed By: #### C BC #### [facility] [address] [place] [address] Dr. Rashmi Nolan Erythrocyte distribution width (RBC) [Ratio] 16.4 % Critically high 11.0-15.0 [facility] Comment on above: Performed By: #### C BC #### [facility] [address] [place] [address] Dr. Rashmi Nolan Hematocrit (Bld) [Volume fraction] 27.2 % Critically low 42.0-54.0 [facility] Comment on above: Performed By: #### C BC #### [facility] [address] [place] [address] Dr. Rashmi Nolan Hemoglobin (Bld) [Mass/Vol] 9.1 g/dL Critically low 14.0-18.0 [facility] Comment on above: Performed By: #### C BC #### [facility] [address] [place] [address] Dr. Rashmi Nolan IG # 0.01 10e3/ul Normal 0.00-0.03 [facility] Comment on above: Performed By: #### C BC #### [facility] [address] [place] [address] Dr. Rashmi Nolan IG % 0.3 % Normal 0.0-0.5 [facility] Comment on above: Performed By: #### C BC #### [facility] [address] [place] [address] Dr. Rashmi Nolan LYMPH # 0.9 103/ul Critically low 1.2-3.8 [facility] Comment on above: Performed By: #### C BC #### [facility] [address] [place] [address] Dr. Rashmi Nolan Lymphocytes/100 WBC (Bld) 25.3 % Normal 20.5-60.0 [facility] Comment on above: Performed By: #### C BC #### [facility] [address] [place] [address] Dr. Rashmi Nolan MANUAL DIFF REQ NO Normal [facility] Comment on above: Performed By: #### C BC #### [facility] [address] [place] [address] Dr. Rashmi Nolan MCH (RBC) [Entitic mass] 33.0 pg Normal 25.9-34.0 [facility] Comment on above: Performed By: #### C BC #### [facility] [address] [place] [address] Dr. Rashmi Nolan MCHC (RBC) [Mass/Vol] 33.5 g/dL Normal 29.9-35.2 [facility] Comment on above: Performed By: #### C BC #### [facility] [address] [place] [address] Dr. Rashmi Nolan MCV (RBC) [Entitic vol] 98.6 fL Critically high 80.0-94.0 [facility] Comment on above: Performed By: #### C BC #### [facility] [address] [place] [address] Dr. Rashmi Nolan MONO # 0.3 103/ul Normal 0.3-0.8 [facility] Comment on above: Performed By: #### C BC #### [facility] [address] [place] [address] Dr. Rashmi Nolan Monocytes/100 WBC (Bld) 8.1 % Normal 1.7-12.0 [facility] Comment on above: Performed By: #### C BC #### [facility] [address] [place] [address] Dr. Rashmi Nolan NEUT # 2.0 103/ul Normal 1.4-6.5 [facility] Comment on above: Performed By: #### C BC #### [facility] [address] [place] [address] Dr. Rashmi Nolan Neutrophils/100 WBC (Bld) 58.1 % Normal 43.0-75.0 [facility] Comment on above: Performed By: #### C BC #### [facility] [address] [place] [address] Dr. Rashmi Nolan Platelet mean volume (Bld) [Entitic vol] 10.0 fL Normal 9.5-13.5 [facility] Comment on above: Performed By: #### C BC #### [facility] [address] [address] [address] Rashmi Nolan PLT 147 103/ul Critically low 150-450 [facility] Comment on above: Performed By: #### C BC #### [facility] [address] [address] [address] Rashmi Nolan RBC 2.76 106/ul Critically low 4.70-6.10 [facility] Comment on above: Performed By: #### C BC #### [facility] [address] [address] [address] Rashmi Nolan WBC 3.4 103/ul Critically low 4.0-11.0 [facility] Comment on above: Performed By: #### C BC #### [facility] [address] [place] [address] Dr. Rashmi Nolan BASO # 0.0 103/ul Normal 0.0-0.1 [facility] Comment on above: Performed By: #### C BC #### [facility] [address] [address] [address] Rashmi Nolan Basophils/100 WBC (Bld) 0.6 % Normal 0.2-2.0 [facility] Comment on above: Performed By: #### C BC #### [facility] [address] [place] [address] Dr. Rashmi Nolan EO # 0.2 103/ul Normal 0.0-0.7 [facility] Comment on above: Performed By: #### C BC #### [facility] [address] [place] [address] Dr. Rashmi Nolan Eosinophils/100 WBC (Bld) 6.6 % Normal 0.9-7.0 [facility] Comment on above: Performed By: #### C BC #### [facility] [address] [place] [address] Dr. Rashmi Nolan Erythrocyte distribution width (RBC) [Ratio] 16.4 % Critically high 11.0-15.0 [facility] Comment on above: Performed By: #### C BC #### [facility] [address] [place] [address] Dr. Rashmi Nolan Hematocrit (Bld) [Volume fraction] 26.1 % Critically low 42.0-54.0 [facility] Comment on above: Performed By: #### C BC #### [facility] [address] [place] [address] Dr. Rashmi Nolan Hemoglobin (Bld) [Mass/Vol] 8.5 g/dL Critically low 14.0-18.0 [facility] Comment on above: Result Comment: rcvd . blood Performed By: #### C BC #### [facility] [address] [place] [address] Dr. Rashmi Nolan IG # 0.01 10e3/ul Normal 0.00-0.03 [facility] Comment on above: Performed By: #### C BC #### [facility] [address] [place] [address] Dr. Rashmi Nolan IG % 0.3 % Normal 0.0-0.5 [facility] Comment on above: Performed By: #### C BC #### [facility] [address] [place] [address] Dr. Rashmi Nolan LYMPH # 0.7 103/ul Critically low 1.2-3.8 [facility] Comment on above: Performed By: #### C BC #### [facility] [address] [place] [address] Dr. Rashmi Nolan Lymphocytes/100 WBC (Bld) 20.2 % Critically low 20.5-60.0 [facility] Comment on above: Performed By: #### C BC #### [facility] [address] [place] [address] Dr. Rashmi Nolan MANUAL DIFF REQ NO Normal [facility] Comment on above: Performed By: #### C BC #### [facility] [address] [place] [address] Dr. Rashmi Nolan MCH (RBC) [Entitic mass] 32.7 pg Normal 25.9-34.0 [facility] Comment on above: Performed By: #### C BC #### [facility] [address] [address] [address] Rashmi Nolan MCHC (RBC) [Mass/Vol] 32.6 g/dL Normal 29.9-35.2 [facility] Comment on above: Performed By: #### C BC #### [facility] [address] [address] [address] Rashmi Nolan MCV (RBC) [Entitic vol] 100.4 fL Critically high 80.0-94.0 [facility] Comment on above: Performed By: #### C BC #### [facility] [address] [address] [address] Rashmi Nolan MONO # 0.3 103/ul Normal 0.3-0.8 [facility] Comment on above: Performed By: #### C BC #### [facility] [address] [place] [address] Dr. Rashmi Nolan Monocytes/100 WBC (Bld) 7.7 % Normal 1.7-12.0 [facility] Comment on above: Performed By: #### C BC #### [facility] [address] [address] [address] Rashmi Nolan NEUT # 2.3 103/ul Normal 1.4-6.5 [facility] Comment on above: Performed By: #### C BC #### [facility] [address] [place] [address] Dr. Rashmi Nolan Neutrophils/100 WBC (Bld) 64.6 % Normal 43.0-75.0 [facility] Comment on above: Performed By: #### C BC #### [facility] [address] [address] [address] Rashmi Nolan Platelet mean volume (Bld) [Entitic vol] 9.9 fL Normal 9.5-13.5 [facility] Comment on above: Performed By: #### C BC #### [facility] [address] [place] [address] Dr. Rashmi Nolan PLT 130 103/ul Critically low 150-450 [facility] Comment on above: Performed By: #### C BC #### [facility] [address] [place] [address] Dr. Rashmi Nolan RBC 2.60 106/ul Critically low 4.70-6.10 [facility] Comment on above: Performed By: #### C BC #### [facility] [address] [place] [address] Dr. Rashmi Nolan WBC 3.6 103/ul Critically low 4.0-11.0 [facility] Comment on above: Performed By: #### C BC #### [facility] [address] [place] [address] Dr. Rashmi Nolan PRBC LEUKOREDUCEDon 12-13-19 ABO and Rh group Nom (Bld) Cross Match Result Compatible Unit Blood Type O Pos Unit Number [id number] Status Information Issued Product ID Red Blood Cells Product Code [id number] Issue Date/Time [id number] Cross Match Result Compatible Unit Blood Type O Pos Unit Number [id number] Status Information Issued Product ID Red Blood Cells Product Code [id number] Issue Date/Time [id number] Normal [facility] Comment on above: Performed By: #### C BC #### [facility] [address] [place] [address] Dr. Rashmi Nolan PROF CHEM 8 (BAS METB)on Anion gap [Moles/Vol] 14.8 mmol/L Normal [facility] Comment on above: Performed By: #### B MP #### [facility] [address] [place] [address] Dr. Rashmi Nolan Calcium [Mass/Vol] 9.2 mg/dL Normal 8.5-10.1 [facility] Comment on above: Performed By: #### B MP #### [facility] [address] [place] [address] Dr. Rashmi Nolan Chloride [Moles/Vol] 110 mmol/L Critically high 98-107 [facility] Comment on above: Performed By: #### B MP #### [facility] [address] [place] [address] Dr. Rashmi Nolan CO2 [Moles/Vol] 23.5 mmol/L Normal 21.0-32.0 [facility] Comment on above: Performed By: #### B MP #### [facility] [address] [address] [address] Rashmi Nolan Creatinine [Mass/Vol] 1.77 mg/dL Critically high 0.70-1.30 [facility] Comment on above: Performed By: #### B MP #### [facility] [address] [address] [address] Rashmi Nolan EGFR-AF FRENCH 44 mL/min/1.73m2 Critically low >=60 [facility] Comment on above: Performed By: #### B MP #### [facility] [address] [address] [address] Rashmi Nolan EGFR-NON AF FRENCH 36 mL/min/1.73m2 Critically low >=60 [facility] Comment on above: Performed By: #### B MP #### [facility] [address] [address] [address] Rashmi Nolan Glucose [Mass/Vol] 103 mg/dL Normal 74-106 [facility] Comment on above: Performed By: #### B MP #### [facility] [address] [address] [address] Rashmi Nolan Potassium [Moles/Vol] 5.3 mmol/L Critically high 3.5-5.1 [facility] Comment on above: Performed By: #### B MP #### [facility] [address] [address] [address] Rashmi Nolan Sodium [Moles/Vol] 143 mmol/L Normal 136-145 [facility] Comment on above: Performed By: #### B MP #### [facility] [address] [address] [address] Rashmi Nolan Urea nitrogen [Mass/Vol] 54.0 mg/dL Critically high 7.0-18.0 [facility] Comment on above: Performed By: #### B MP #### [facility] [address] [address] [address] Rashmi Nolan Urea nitrogen/Creatinine [Mass ratio] 30.5 mg/mg Normal [facility] Comment on above: Performed By: #### B #### [facility] [address] [place], [place] [address] Dr. Rashmi Nolan Auto Diffon 12-11-2022 Basophils/100 WBC (Bld) 0.5 % Normal 0.0-2.0 [facility] Comment on above: Order Comment: Order Added by Discern Expert. Performed By: #### 2 [id number], [id number], [id number] ####[facility] [id number] [place] [address] Basophils/Leukocytes Auto (Bld) [Pure # fraction] 0.0 E9/L Normal 0.0-0.2 [facility] Comment on above: Order Comment: Order Added by Discern Expert. Performed By: #### 2 [id number], [id number], [id number] ####[address] [address] Eosinophils/100 WBC (Bld) 3.4 % Normal 0.0-8.0 [facility] Comment on above: Order Comment: Order Added by Discern Expert. Performed By: #### 2 161157, [id number], [id number] ####[facility] [address] [place] [address] Eosinophils/Leukocyt es Auto (Bld) [Pure # fraction] 0.2 E9/L Normal 0.0-0.5 [facility] Comment on above: Order Comment: Order Added by Discern Expert. Performed By: #### 2 190619, [id number], [id number] ####[facility] [address] [place] [address] Lymphocytes/100 WBC (Bld) 17.1 % Normal 14.0-50.0 [facility] Comment on above: Order Comment: Order Added by Discern Expert. Performed By: #### 2 454437, [id number], [id number] ####[address] [place] [address] Lymphocytes/Leukocyt es Auto (Bld) [Pure # fraction] 0.9 E9/L Low 1.0-4.0 [facility] Comment on above: Order Comment: Order Added by Discern Expert. Performed By: #### 2 871599, 7394506, [id number] ####[address] [address] Monocytes/100 WBC (Bld) 6.1 % Normal 4.0-14.0 [facility] Comment on above: Order Comment: Order Added by Discern Expert. Performed By: #### 2 997124, 8545209, [id number] ####[address] [address] Monocytes/Leukocytes Auto (Bld) [Pure # fraction] 0.3 E9/L Normal 0.2-1.0 [facility] Comment on above: Order Comment: Order Added by Discern Expert. Performed By: #### 2 663510, 9582420, [id number] ####[address] [address] Neutrophils/100 WBC (Bld) 72.9 % Normal 36.0-75.0 [facility] Comment on above: Order Comment: Order Added by Discern Expert. Performed By: #### 2 664701, [id number], [id number] ####[address] [address] Neutrophils/Leukocyt es Auto (Bld) [Pure # fraction] 3.8 E9/L Normal 2.0-7.5 [facility] Comment on above: Order Comment: Order Added by Discern Expert. Performed By: #### 2 815822, 1788109, [id number] ####[address] [place] [address] CBC AUTO DIFFon 12-11-2022 BASO # 0.0 103/ul Normal 0.0-0.1 [facility] Comment on above: Performed By: #### C BC #### [facility] [address] [place], [place] [address] Dr. Rashmi Nolan Basophils/100 WBC (Bld) 0.4 % Normal 0.2-2.0 [facility] Comment on above: Performed By: #### C BC #### [facility] [address] [place] [address] Dr. Rashmi Nolan EO # 0.2 103/ul Normal 0.0-0.7 [facility] Comment on above: Performed By: #### C BC #### [facility] [address] [place] [address] Dr. Rashmi Nolan Eosinophils/100 WBC (Bld) 5.2 % Normal 0.9-7.0 [facility] Comment on above: Performed By: #### C BC #### [facility] [address] [place] [address] Dr. Rashmi Nolan Erythrocyte distribution width (RBC) [Ratio] 14.6 % Normal 11.0-15.0 [facility] Comment on above: Performed By: #### C BC #### [facility] [address] [place] [address] Dr. Rashmi Nolan Hematocrit (Bld) [Volume fraction] 23.7 % Critically low 42.0-54.0 [facility] Comment on above: Performed By: #### C BC #### [facility] [address] [place] [address] Dr. Rashmi Nolan Hemoglobin (Bld) [Mass/Vol] 7.8 g/dL Critically low 14.0-18.0 [facility] Comment on above: Performed By: #### C BC #### [facility] [address] [place] [address] Dr. Rashmi Nolan IG # 0.01 10e3/ul Normal 0.00-0.03 [facility] Comment on above: Performed By: #### C BC #### [facility] [address] [place] [address] Dr. Rashmi Nolan IG % 0.2 % Normal 0.0-0.5 [facility] Comment on above: Performed By: #### C BC #### [facility] [address] [place] [address] Dr. Rashmi Nolan LYMPH # 0.9 103/ul Critically low 1.2-3.8 [facility] Comment on above: Performed By: #### C BC #### [facility] [address] [address] [address] Rashmi Nolan Lymphocytes/100 WBC (Bld) 19.6 % Critically low 20.5-60.0 [facility] Comment on above: Performed By: #### C BC #### [facility] [address] [address] [address] Rashmi Nolan MANUAL DIFF REQ NO Normal [facility] Comment on above: Performed By: #### C BC #### [facility] [address] [place] [address] Dr. Rashmi Nolan MCH (RBC) [Entitic mass] 34.7 pg Critically high 25.9-34.0 [facility] Comment on above: Performed By: #### C BC #### [facility] [address] [place] [address] Dr. Rashmi Nolan MCHC (RBC) [Mass/Vol] 32.9 g/dL Normal 29.9-35.2 [facility] Comment on above: Performed By: #### C BC #### [facility] [address] [place] [address] Dr. Rashmi Nolan MCV (RBC) [Entitic vol] 105.3 fL Critically high 80.0-94.0 [facility] Comment on above: Performed By: #### C BC #### [facility] [address] [place] [address] Dr. Rashmi Nolan MONO # 0.3 103/ul Normal 0.3-0.8 [facility] Comment on above: Performed By: #### C BC #### [facility] [address] [place] [address] Dr. Rashmi Nolan Monocytes/100 WBC (Bld) 7.2 % Normal 1.7-12.0 [facility] Comment on above: Performed By: #### C BC #### [facility] [address] [place] [address] Dr. Rashmi Nolan NEUT # 3.0 103/ul Normal 1.4-6.5 [facility] Comment on above: Performed By: #### C BC #### [facility] [address] [address] [address] Rashmi Nolan Neutrophils/100 WBC (Bld) 67.4 % Normal 43.0-75.0 [facility] Comment on above: Performed By: #### C BC #### [facility] [address] [address] [address] Rashmi Nolan Platelet mean volume (Bld) [Entitic vol] 9.8 fL Normal 9.5-13.5 [facility] Comment on above: Performed By: #### C BC #### [facility] [address] [place] [address] Dr. Rashmi Nolan PLT 156 103/ul Normal 150-450 [facility] Comment on above: Performed By: #### C BC #### [facility] [address] [place] [address] Dr. Rashmi Nolan RBC 2.25 106/ul Critically low 4.70-6.10 [facility] Comment on above: Performed By: #### C BC #### [facility] [address] [place] [address] Dr. Rashmi Nolan WBC 4.5 103/ul Normal 4.0-11.0 [facility] Comment on above: Performed By: #### C BC #### [facility] [address] [place] [address] Dr. Rashmi Nolan CBC w/ Auto Diffon 3 Erythrocyte distribution width (RBC) [Ratio] 14.9 % High 10.9-14.2 [facility] Comment on above: Performed By: #### 2 197482, [id number], [id number] #### [facility] [address] [place] [address] Hematocrit (Bld) [Volume fraction] 24.1 % Low 37.7-49.0 [facility] Comment on above: Performed By: #### 2 077327, [id number], [id number] #### [facility] [address] [place] [address] Hemoglobin (Bld) [Mass/Vol] 8.1 g/dL Low 13.5-17.5 [facility] Comment on above: Performed By: #### 2 532803, [id number], [id number] #### [facility] [address] [place] [address] MCH (RBC) [Entitic mass] 34.0 pg Normal 27.0-34.0 [facility] Comment on above: Performed By: #### 2 181114, 6125721, [id number] #### [facility] [address] [place] [address] MCHC (RBC) [Mass/Vol] 33.6 g/dL Normal 31.4-36.0 [facility] Comment on above: Performed By: #### 2 046488, 6593689, [id number] #### [facility] [address] [place] [address] MCV (RBC) [Entitic vol] 101.1 fL High 80.0-100.0 [facility] Comment on above: Performed By: #### 2 054907, 0944181, [id number] #### [facility] [address] [place] [address] Platelet mean volume (Bld) [Entitic vol] 8.9 fL Normal 6.4-10.8 [facility] Comment on above: Performed By: #### 2 490613, 8541937, [id number] #### [facility] [address] [place] [address] Platelets (Bld) [#/Vol] 177.0 E9/L Normal 150.0-500.0 [facility] Comment on above: Performed By: #### 2 220310, 2255439, [id number] #### [facility] [address] [place] [address] RBC (Bld) [#/Vol] 2.4 E12/L Low 4.3-5.9 [facility] Comment on above: Performed By: #### 2 384366, 1712137, [id number] #### [facility] [address] [place] [address] WBC corrected for nucl RBC Auto (Bld) [#/Vol] 5.2 E9/L Normal 4.0-11.0 [facility] Comment on above: Performed By: #### 2 778449, [id number], [id number] #### [facility] [address] [place] [address] CHEMISTRYOrdered By: SYSTEM SYSTEM on 12-11-2022 Iron binding capacity [Mass/Vol] 417 ug/dL High 250 - 400 mcg/dL FT Remisol Transferrin [Mass/Vol] 298 mg/dL Normal 200 - 370 mg/dL [facility] Remisol Consent Formson 12-11-2022 Consent Forms [id number] Normal [facility] Family Medicine Office/Clini c Noteon 12-11-2022 Family Medicine Office/Clinic Note HPI Staff Noemi is an 87 year old male who presents to establish care. 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 Martinez, Dr. Royal Jordan-Cardiology [facility], [facility] Last provider: Dr. Silva Any [...] he turned 79 years old. Will call [facility] and request records for any colonoscopy in 2015 or more recent. Review of Systems PHQ Score Initial Depression Screen Score: 0 Physical Exam Vitals & Measurements HR: 60(Peripheral) BP: 128/62 SpO2: 98% HT: 70 in HT: 178.5 cm WT: 99 kg WT: 217.8 lb BMI: 31.07 Assessment/Plan 1. Black tarry stools (K92.1: Melena) Ordered: CBC w/ Auto Diff Fibrinogen Lvl [facility] Internal Ambulatory Referral Lab Specimen Collect [id number] PT & PTT Stool Occult Blood Stool Occult Blood TIBC Calculated 2. Family hx of colon cancer (Z80.0: Family history of malignant neoplasm of digestive organs) Ordered: [facility] Internal Ambulatory Referral Lab Specimen Collect [id number] Stool Occult Blood 3. Colon cancer screening (Z12.11: Encounter for screening for malignant neoplasm of colon) Ordered: [facility] Internal Ambulatory Referral Lab Specimen Collect [id number] Stool Occult Blood 4. BMI 31.0-31.9,adult (Z68.31: Body mass index [BMI] 31.0-31.9, adult) Ordered: [facility] Internal Ambulatory Referral Stool Occult Blood Follow-up [...] Recorded influenza, whole 05/29/2005 Recorded Normal [facility] Comment on above: Result Comment: Elec [...] seeing specialists: Dr. Martinez, Dr. Royal Jordan-Cardiology [facility], [facility] Last provider: Dr. Silva Any [...] he turned 79 years old. Will call [facility] and request records for any [...] he had colonoscopy 6-[address] [facility]. will call to access those records. pt has significant family history of colon cancer. will send stool to lab, will draw CBC and clotting studies in office today. will call patient tomorrow to advise if he should stop taking warfarin depending on lab results. all questions answered. RTC as needed Ordered: CBC w/ Auto Diff Fibrinogen Lvl [facility] Internal Ambulatory Referral PT & PTT Stool Occult Blood Stool Occult Blood TIBC Calculated 2. Family hx of colon cancer (Z80.0: Family history of malignant neoplasm of digestive organs) referral to Dr. Apolinar baez for scope Ordered: [facility] Internal Ambulatory Referral Stool Occult Blood 3. Colon cancer screening (Z12.11: Encounter for screening for malignant neoplasm of colon) see above Ordered: [facility] Internal Ambulatory Referral Stool Occult Blood 4. BMI 31.0-31.9,adult (Z68.31: Body mass index [BMI] 31.0-31.9, adult) BMI education complete Ordered: [facility] Internal Ambulatory Referral Stool Occult Blood Follow-up [...] neoplasm of (more content not included)... Normal [facility] Comment on above: Result Comment: Elec tronically Signed By: Sheng Simms\.br\Date and Time Signed: 12/11/22 13:48 EDT HEMATOLOGYOrdered By: [employer] [employer] SYSTEM on 12-11-2022 Basophils/100 WBC (Bld) 0.5 % Normal 0.0 - 2.0 % [facility] Basophils/Leukocytes Auto (Bld) [Pure # fraction] 0.0 E9/L Normal 0.0 - 0.2 E9/L [facility] Eosinophils/100 WBC (Bld) 3.4 % Normal 0.0 - 8.0 % [facility] Eosinophils/Leukocyt es Auto (Bld) [Pure # fraction] 0.2 E9/L Normal 0.0 - 0.5 E9/L [facility] Lymphocytes/100 WBC (Bld) 17.1 % Normal 14.0 - 50.0 % [facility] Lymphocytes/Leukocyt es Auto (Bld) [Pure # fraction] 0.9 E9/L Low 1.0 - 4.0 E9/L [facility] Monocytes/100 WBC (Bld) 6.1 % Normal 4.0 - 14.0 % [facility] Monocytes/Leukocytes Auto (Bld) [Pure # fraction] 0.3 E9/L Normal 0.2 - 1.0 E9/L [facility] Neutrophils/100 WBC (Bld) 72.9 % Normal 36.0 - 75.0 % [facility] Neutrophils/Leukocyt es Auto (Bld) [Pure # fraction] 3.8 E9/L [...] Albumin [Mass/Vol] 3.8 g/dL Normal 3.4-5.0 [facility] Comment on above: Performed By: #### B MP #### [facility] [address] [address] [address] Rashmi Nolan Albumin/Globulin [Mass ratio] 1.1 {ratio} Normal [facility] Comment on above: Performed By: #### B MP #### [facility] [address] [address] [address] Rashmi Nolan ALP [Catalytic activity/Vol] 178 U/L Critically high 46-116 [facility] Comment on above: Performed By: #### B MP #### [facility] [address] [address] [address] Rashmi Nolan ALT [Catalytic activity/Vol] 17 U/L Normal 16-63 [facility] Comment on above: Performed By: #### B MP #### [facility] [address] [address] [address] Rashmi Nolan Anion gap [Moles/Vol] 15.6 mmol/L Normal [facility] Comment on above: Performed By: #### B MP #### [facility] [address] [address] [address] Rashmi Nolan AST [Catalytic activity/Vol] 12 U/L Critically low 15-37 [facility] Comment on above: Performed By: #### B MP #### [facility] [address] [address] [address] Rashmi Nolan Bilirubin [Mass/Vol] 0.2 mg/dL Normal 0.2-1.0 [facility] Comment on above: Performed By: #### B MP #### [facility] [address] [address] [address] Rashmi Nolan Calcium [Mass/Vol] 9.5 mg/dL Normal 8.5-10.1 [facility] Comment on above: Performed By: #### B MP #### [facility] [address] [address] [address] Rashmi Nolan Chloride [Moles/Vol] 109 mmol/L Critically high 98-107 [facility] Comment on above: Performed By: #### B MP #### [facility] [address] [address] [address] Rashmi Nolan CO2 [Moles/Vol] 22.5 mmol/L Normal 21.0-32.0 [facility] Comment on above: Performed By: #### B MP #### [facility] [address] [address] [address] Rashmi Nolan Creatinine [Mass/Vol] 2.11 mg/dL Critically high 0.70-1.30 [facility] Comment on above: Performed By: #### B MP #### [facility] [address] [address] [address] Rashmi Nolan EGFR-AF FRENCH 36 mL/min/1.73m2 Critically low >=60 [facility] Comment on above: Performed By: #### B MP #### [facility] [address] [address] [address] Rashmi Nolan EGFR-NON AF FRENCH 30 mL/min/1.73m2 Critically low >=60 [facility] Comment on above: Performed By: #### B MP #### [facility] [address] [address] [address] Rashmi Nolan Globulin (S) [Mass/Vol] 3.4 g/dL Normal [facility] Comment on above: Performed By: #### B MP #### [facility] [address] [address] [address] Rashmi Nolan Glucose [Mass/Vol] 115 mg/dL Critically high 74-106 [facility] Comment on above: Performed By: #### B MP #### [facility] [address] [address] [address] Rashmi Nolan Potassium [Moles/Vol] 5.1 mmol/L Normal 3.5-5.1 [facility] Comment on above: Performed By: #### B MP #### [facility] [address] [place] [address] Dr. Rashmi Nolan Protein [Mass/Vol] 7.2 g/dL Normal 6.4-8.2 [facility] Comment on above: Performed By: #### B MP #### [facility] [address] [place] [address] Dr. Rashmi Nolan Sodium [Moles/Vol] 142 mmol/L Normal 136-145 [facility] Comment on above: Performed By: #### B MP #### [facility] [address] [place] [address] Dr. Rashmi Nolan Urea nitrogen [Mass/Vol] 57.0 mg/dL Critically high 7.0-18.0 [facility] Comment on above: Performed By: #### B MP #### [facility] [address] [place] [address] Dr. Rashmi Nolan Urea nitrogen/Creatinine [Mass ratio] 27.0 mg/mg Normal [facility] Comment on above: Performed By: #### B MP #### [facility] [address] [address] [address] Rashmi Nolan PROTIMEon 12-11-2022 INR Coag (PPP) [Relative time] 1.95 {INR} Normal [facility] Comment on above: Performed By: #### P T, PTT #### [facility] [address] [place] [address] Dr. Rashmi Nolan INR GUIDELINES SEE BELOW Normal [facility] Comment on above: Result Comment: ENOC RED INR: 2.0 - 3.0 CONDITIONS NOT LISTED BELOW 2.5 - 3.5 FOR PROSTHETIC HEART VALVE REPLACEMENT 2.5 - 3.5 RECURRENT THROMBOSIS Performed By: #### P T, PTT #### [facility] [address] [address] [address] Rashmi Nolan PT Coag (PPP) [Time] 19.9 s Critically high 9.0-11.6 [facility] Comment on above: Performed By: #### P T, PTT #### [facility] [address] [place] [address] Dr. Rashmi Nolan PTTon 12-11-2022 aPTT Coag (Bld) [Time] 30.3 s Normal 22.3-36.2 [facility] Comment on above: Performed By: #### P T, PTT #### [facility] [address] [place] [address] Dr. Rashmi Nolan Stl Oclt Bldon 12-11-2022 Occult Bld Stl Positive Abnormal Negative [facility] Comment on above: Performed By: #### 2 [id number] #### [facility] [address] [place] [address] TIBC Calculatedon 12-11-2022 Iron binding capacity [Mass/Vol] 417 microgram/dL High 250-400 [facility] Comment on above: Performed By: #### 2 [id number], [id number] ####[facility] [id number] [place] [address] Transferrin [Mass/Vol] 298 mg/dL Normal 200-370 [facility] Comment on above: Performed By: #### 2 [id number], [id number], [id number] ####[facility] [id number] [place] [address] TYPE AND SCREENon 12-11-2022 TYPE AND SCREEN Negative Normal [facility] Comment on above: Performed By: #### C BC #### [facility] [address] [address] [address] Rashmi Nolan XR CHEST 1 Von [...] STEPHANIE LIU Date: 2022-12-11 21:04 Normal [facility] Inpatient Patient Summaryon 12-10-2022 [place] [address] Patient Discharge Instructions Name: RY LERNER : 1935 Patient Address: [address] [place] [address] Primary Care Provider: Name: John Nieves MD After you are discharged if you find you have any questions, please, call [phone] ext [phone] to speak to a nurse. 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 If you or anyone you know is experiencing suicidal thoughts, mental health, alcohol and/or drug addiction problems; contact the [facility] 18/02 Crisis Hotline -Text 0DJVM ft 253874. If you received any narcotics, sedation, or [...] business decisions or sign any legal documents [facility] would like to thank you for allowing us to assist you with your healthcare needs. The following includes patient education materials and information regarding your injury/illness. RY LERNER has been given the following list of follow-up instructions, prescriptions, and patient education materials: Follow-up Instructions With: Address: When: Ward Martinez [address] [place] [address], [address] [place] [address] [facility] (1) 12/18/2022 1:30 PM Medications During the [...] 3. DO NOT lift heavy objects or millinery copyist forcefully with your hand 4. Change your [...] or concerns, please call the office at [phone] 7. Follow up as scheduled Viruses or [...] and Prevention Septe (more content not included)... [facility] Preoperative Record MAGR Pre-Op Record Summary Primary Physician: Ward Martinez DO Finalized Date/Time: 12/10/22 15:29:41 Pt. Name: RY LERNER PERRY Barton./Sex: 1935 MALE Med Rec #: [id number] Physician: Ward Martinez DO Financial #: [id number] Pt. Type: D Room/Bed: / Admit/Disch: 12/10/22 [...] Signed By: Maile Palmer RN 12/10/22 15:29 [facility] Patient Handouton 12-10-[address] 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 Keep your hand elevated above your elbow for the first 24 hours after surgery 2. Wiggle your fingers frequently while awake 3. DO NOT lift heavy objects or millinery copyist forcefully with your hand 4. Change your [...] or concerns, please call the office at [phone] 7. Follow up as scheduled [facility] 36on 11-13-2022 36 Potassium was high, renal function is stable. Can stop taking potassium supplement and repeat BMP in one week. Normal [facility] Physician Referralon 023 Physician Referral [id number] 4 [id number] #1.00CD:127 Normal [facility] Physician Referral [id number] 4 [id number]#1 .00CD:127 Normal [facility] MAGNESIUMon 11-06-2022 Magnesium [Mass/Vol] 2.2 mg/dL Normal 1.8-2.4 [facility] Comment on above: Performed By: #### B MP, MG #### [facility] [address] [place] [address] Dr. Rashmi Nolan Office Visiton 11-06-2022 Follow-up visit [id number] Ry Lerner Lisbet 1935 M Date Provider Department Center 11/06/2022 SOLIS MARINELLI [facility] Family History Family history unknown: Yes Level of Service:69733 [place] OFFICE/OUTPATIENT ESTABLISHED MOD MDM 30-39 MIN Reason for Visit and Comments: Atrial Fibrillation [80] Hypertension [827575] Normal [facility] PROF CHEM 8 (BAS METB)on Anion gap [Moles/Vol] 15.0 mmol/L Normal [facility] Comment on above: Performed By: #### B MP, MG #### [facility] [address] [place] [address] Dr. Rashmi Nolan Calcium [Mass/Vol] 10.0 mg/dL Normal 8.5-10.1 [facility] Comment on above: Performed By: #### B MP, MG #### [facility] [address] [address] [address] Rashmi Nolan Chloride [Moles/Vol] 108 mmol/L Critically high 98-107 [facility] Comment on above: Performed By: #### B MP, MG #### [facility] [address] [place] [address] Dr. Rashmi Nolan CO2 [Moles/Vol] 25.4 mmol/L Normal 21.0-32.0 [facility] Comment on above: Performed By: #### B MP, MG #### [facility] [address] [place] [address] Dr. Rashmi Nolan Creatinine [Mass/Vol] 1.98 mg/dL Critically high 0.70-1.30 [facility] Comment on above: Performed By: #### B MP, MG #### [facility] [address] [place] [address] Dr. Rashmi Nolan EGFR-AF FRENCH 39 mL/min/1.73m2 Critically low >=60 [facility] Comment on above: Performed By: #### B MP, MG #### [facility] [address] [place] [address] Dr. Rashmi Nolan EGFR-NON AF FRENCH 32 mL/min/1.73m2 Critically low >=60 [facility] Comment on above: Performed By: #### B MP, MG #### [facility] [address] [place] [address] Dr. Rashmi Nolan Glucose [Mass/Vol] 99 mg/dL Normal 74-106 [facility] Comment on above: Performed By: #### B MP, MG #### [facility] [address] [place] [address] Dr. Rashmi Nolan Potassium [Moles/Vol] 5.4 mmol/L Critically high 3.5-5.1 [facility] Comment on above: Performed By: #### B MP, MG #### [facility] [address] [place] [address] Dr. Rashmi Nolan Sodium [Moles/Vol] 143 mmol/L Normal 136-145 [facility] Comment on above: Performed By: #### B MP, MG #### [facility] [address] [place] [address] Dr. Rashmi Nolan Urea nitrogen [Mass/Vol] 52.0 mg/dL Critically high 7.0-18.0 [facility] Comment on above: Performed By: #### B MP, MG #### [facility] [address] [place] [address] Dr. Rashmi Nolan Urea nitrogen/Creatinine [Mass ratio] 26.3 mg/mg Normal [facility] Comment on above: Performed By: #### B MP, MG #### [facility] [address] [place] [address] Dr. Rashmi Nolan VIT B12 AND FOLATEon 08-22- 023 Cobalamin (Vitamin B12) [Mass/Vol] 514.0 pg/mL Normal 193.0-986.0 [facility] Comment on above: Performed By: #### B MP #### [facility] [address] [place] [address] Dr. Rashmi Nolan FOLATE 10.00 ng/mL Normal 8.60-58.90 [facility] Comment on above: Performed By: #### B MP #### [facility] [address] [address] [address] Rashmi Nolan CBC AUTO DIFFon 08-16-2022 BASO # 0.0 103/ul Normal 0.0-0.1 [facility] Comment on above: Performed By: #### B MP #### [facility] [address] [address] [address] Rashmi Nolan Basophils/100 WBC (Bld) 0.8 % Normal 0.2-2.0 [facility] Comment on above: Performed By: #### B MP #### [facility] [address] [place] [address] Dr. Rashmi Nolan EO # 0.3 103/ul Normal 0.0-0.7 [facility] Comment on above: Performed By: #### B MP #### [facility] [address] [place] [address] Dr. Rashmi Nolan Eosinophils/100 WBC (Bld) 7.8 % Critically high 0.9-7.0 [facility] Comment on above: Performed By: #### B MP #### [facility] [address] [place] [address] Dr. Rashmi Nolan Erythrocyte distribution width (RBC) [Ratio] 13.2 % Normal 11.0-15.0 [facility] Comment on above: Performed By: #### B MP #### [facility] [address] [place] [address] Dr. Rashmi Nolan Hematocrit (Bld) [Volume fraction] 33.2 % Critically low 42.0-54.0 [facility] Comment on above: Performed By: #### B MP #### [facility] [address] [place] [address] Dr. Rashmi Nolan Hemoglobin (Bld) [Mass/Vol] 10.8 g/dL Critically low 14.0-18.0 [facility] Comment on above: Performed By: #### B MP #### [facility] [address] [place] [address] Dr. Rashmi Nolan IG # 0.01 10e3/ul Normal 0.00-0.03 [facility] Comment on above: Performed By: #### B MP #### [facility] [address] [place] [address] Dr. Rashmi Nolan IG % 0.3 % Normal 0.0-0.5 [facility] Comment on above: Performed By: #### B MP #### [facility] [address] [place] [address] Dr. Rashmi Nolan LYMPH # 1.0 103/ul Critically low 1.2-3.8 [facility] Comment on above: Performed By: #### B MP #### [facility] [address] [place] [address] Dr. Rashmi Nolan Lymphocytes/100 WBC (Bld) 24.7 % Normal 20.5-60.0 [facility] Comment on above: Performed By: #### B MP #### [facility] [address] [place] [address] Dr. Rashmi Nolan MANUAL DIFF REQ NO Normal [facility] Comment on above: Performed By: #### B MP #### [facility] [address] [place] [address] Dr. Rashmi Nolan MCH (RBC) [Entitic mass] 33.0 pg Normal 25.9-34.0 [facility] Comment on above: Performed By: #### B MP #### [facility] [address] [place] [address] Dr. Rashmi Nolan MCHC (RBC) [Mass/Vol] 32.5 g/dL Normal 29.9-35.2 [facility] Comment on above: Performed By: #### B MP #### [facility] [address] [place] [address] Dr. Rashmi Nolan MCV (RBC) [Entitic vol] 101.5 fL Critically high 80.0-94.0 [facility] Comment on above: Performed By: #### B MP #### [facility] [address] [place] [address] Dr. Rashmi Nolan MONO # 0.4 103/ul Normal 0.3-0.8 [facility] Comment on above: Performed By: #### B MP #### [facility] [address] [address] [address] Rashmi Nolan Monocytes/100 WBC (Bld) 10.7 % Normal 1.7-12.0 [facility] Comment on above: Performed By: #### B MP #### [facility] [address] [address] [address] Rashmi Nolan NEUT # 2.1 103/ul Normal 1.4-6.5 [facility] Comment on above: Performed By: #### B MP #### [facility] [address] [address] [address] Rashmi Nolna Neutrophils/100 WBC (Bld) 55.7 % Normal 43.0-75.0 [facility] Comment on above: Performed By: #### B MP #### [facility] [address] [place] [address] Dr. Rashmi Nolan Platelet mean volume (Bld) [Entitic vol] 10.5 fL Normal 9.5-13.5 [facility] Comment on above: Performed By: #### B MP #### [facility] [address] [address] [address] Rashmi Nolan PLT 160 103/ul Normal 150-450 [facility] Comment on above: Performed By: #### B MP #### [facility] [address] [address] [address] Rashmi Nolan RBC 3.27 106/ul Critically low 4.70-6.10 [facility] Comment on above: Performed By: #### B MP #### [facility] [address] [address] [address] Rashmi Nolan WBC 3.8 103/ul Critically low 4.0-11.0 [facility] Comment on above: Performed By: #### B MP #### [facility] [address] [place], [place] [id number] Dr. Rashmi Nolan LIPID PROFILEon 08-16-2022 CHOL-HDL RATIO NORM SEE BELOW Normal [facility] Comment on above: Result Comment: 3.3 - 4.4 LOW RISK 4.4 - 7.1 AVERAGE RISK 7.1 - 11.0 MODERATE RISK >11.0 HIGH RISK Performed By: #### B MP #### [facility] [address] [address] [address] Rashmi Nolan Cholesterol [Mass/Vol] 166 mg/dL Normal <=200 [facility] Comment on above: Performed By: #### B MP #### [facility] [address] [address] [address] Rashmi Nolan Cholesterol in HDL [Mass/Vol] 42 mg/dL Normal 40-60 [facility] Comment on above: Performed By: #### B MP #### [facility] [address] [address] [address] Rashmi Nolan Cholesterol in LDL [Mass/Vol] 110.4 mg/dL Normal [facility] Comment on above: Performed By: #### B MP #### [facility] [address] [address] [address] Rashmi Nolan Cholesterol.total/Ch olesterol in HDL [Mass ratio] 4.0 {ratio} Normal [facility] Comment on above: Performed By: #### B MP #### [facility] [address] [address] [address] Rashmi Nolan HDL NORMAL > or = 60 mg/dl - LO W CARDIOVASCULAR RISK <40 mg/dl - HIGH CARDIOVASCULAR RISK Normal [facility] Comment on above: Performed By: #### B MP #### [facility] [address] [address] [address] Rashmi Nolan LDL CALC NORMAL SEE BELOW Normal [facility] Comment on above: Result Comment: <100 mg/dl OPTIMAL 100 - 129 mg/dl NEAR OR ABOVE OPTIMAL 130 - 159 mg/dl BORDERLINE HIGH 160 - 189 mg/dl HIGH >190 mg/dl VERY HIGH Performed By: #### B MP #### [facility] [address] [address] [address] Rashmi Nolan Triglyceride [Mass/Vol] 68 mg/dL Normal <=150 [facility] Comment on above: Performed By: #### B MP #### [facility] [address] [address] [address] Rashmi Nolan VLDL CALC 13.6 mg/dL Normal [facility] Comment on above: Performed By: #### B MP #### [facility] [address] [address] [address] Rashmi Nolan PROF 14(COMP METB)on 023 Albumin [Mass/Vol] 3.9 g/dL Normal 3.4-5.0 [facility] Comment on above: Performed By: #### B MP #### [facility] [address] [address] [address] Rashmi Nolan Albumin/Globulin [Mass ratio] 1.1 {ratio} Normal [facility] Comment on above: Performed By: #### B MP #### [facility] [address] [place] [address] Dr. Rashmi Nolan ALP [Catalytic activity/Vol] 190 U/L Critically high 46-116 [facility] Comment on above: Performed By: #### B MP #### [facility] [address] [place] [address] Dr. Rashmi Nolan ALT [Catalytic activity/Vol] 15 U/L Critically low 16-63 [facility] Comment on above: Performed By: #### B MP #### [facility] [address] [place] [address] Dr. Rashmi Nolan Anion gap [Moles/Vol] 15.2 mmol/L Normal [facility] Comment on above: Performed By: #### B MP #### [facility] [address] [place] [address] Dr. Rashmi Nolan AST [Catalytic activity/Vol] 17 U/L Normal 15-37 [facility] Comment on above: Performed By: #### B MP #### [facility] [address] [address] [address] Rashmi Nolan Bilirubin [Mass/Vol] 0.4 mg/dL Normal 0.2-1.0 [facility] Comment on above: Performed By: #### B MP #### [facility] [address] [place] [address] Dr. Rashmi Nolan Calcium [Mass/Vol] 10.0 mg/dL Normal 8.5-10.1 [facility] Comment on above: Performed By: #### B MP #### [facility] [address] [address] [address] Rashmi Nolan Chloride [Moles/Vol] 108 mmol/L Critically high 98-107 [facility] Comment on above: Performed By: #### B MP #### [facility] [address] [address] [address] Rashmi Nolan CO2 [Moles/Vol] 25.8 mmol/L Normal 21.0-32.0 [facility] Comment on above: Performed By: #### B MP #### [facility] [address] [address] [address] Rashmi Nolan Creatinine [Mass/Vol] 1.78 mg/dL Critically high 0.70-1.30 [facility] Comment on above: Performed By: #### B MP #### [facility] [address] [address] [address] Rashmi Nolan EGFR-AF FRENCH 44 mL/min/1.73m2 Critically low >=60 [facility] Comment on above: Performed By: #### B MP #### [facility] [address] [address] [address] Rashmi Nolan EGFR-NON AF FRENCH 36 mL/min/1.73m2 Critically low >=60 [facility] Comment on above: Performed By: #### B MP #### [facility] [address] [address] [address] Rashmi Nolan Globulin (S) [Mass/Vol] 3.7 g/dL Normal [facility] Comment on above: Performed By: #### B MP #### [facility] [address] [address] [address] Rashmi Nolan Glucose [Mass/Vol] 100 mg/dL Normal 74-106 [facility] Comment on above: Performed By: #### B MP #### [facility] [address] [address] [address] Rashmi Nolan Potassium [Moles/Vol] 5.0 mmol/L Normal 3.5-5.1 [facility] Comment on above: Performed By: #### B MP #### [facility] [address] [address] [address] Rashmi Nolan Protein [Mass/Vol] 7.6 g/dL Normal 6.4-8.2 [facility] Comment on above: Performed By: #### B MP #### [facility] [address] [address] [address] Rashmi Nolan Sodium [Moles/Vol] 144 mmol/L Normal 136-145 [facility] Comment on above: Performed By: #### B MP #### [facility] [address] [address] [address] Rashmi Nolan Urea nitrogen [Mass/Vol] 52.0 mg/dL Critically high 7.0-18.0 [facility] Comment on above: Performed By: #### B MP #### [facility] [address] [place] [address] Dr. Rashmi Nolan Urea nitrogen/Creatinine [Mass ratio] 29.2 mg/mg Normal [facility] Comment on above: Performed By: #### B MP #### [facility] [address] [address] [address] Rashmi Nolan Office Visiton 07-24-2022 Follow-up visit [id number] Ry Lerner 1935 M Date Provider Department Center 07/24/2022 ROYAL ENRIQUE [facility] No family history on file Level of Service:85710 [place] OFFICE/OUTPATIENT ESTABLISHED LOW MDM 20-29 MIN Reason for Visit and Comments: Chest Pain [501670] Normal [facility] PROF CHEM 8 (BAS METB)on Anion gap [Moles/Vol] 13.3 mmol/L Normal [facility] Comment on above: Performed By: #### C BC #### [facility] [address] [address] [address] Rashmi Nolan Calcium [Mass/Vol] 10.1 mg/dL Normal 8.5-10.1 [facility] Comment on above: Performed By: #### C BC #### [facility] [address] [address] [address] Rashmi Nolan Chloride [Moles/Vol] 104 mmol/L Normal 98-107 [facility] Comment on above: Performed By: #### C BC #### [facility] [address] [address] [address] Rashmi Nolan CO2 [Moles/Vol] 28.7 mmol/L Normal 21.0-32.0 [facility] Comment on above: Performed By: #### C BC #### [facility] [address] [address] [address] Rashmi Nolan Creatinine [Mass/Vol] 1.87 mg/dL Critically high 0.70-1.30 [facility] Comment on above: Performed By: #### C BC #### [facility] [address] [place] [address] Dr. Rashmi Nolan EGFR-AF FRENCH 42 mL/min/1.73m2 Critically low >=60 [facility] Comment on above: Performed By: #### C BC #### [facility] [address] [place] [address] Dr. Rashmi Nolan EGFR-NON AF FRENCH 34 mL/min/1.73m2 Critically low >=60 [facility] Comment on above: Performed By: #### C BC #### [facility] [address] [place] [address] Dr. Rashmi Nolan Glucose [Mass/Vol] 101 mg/dL Normal 74-106 [facility] Comment on above: Performed By: #### C BC #### [facility] [address] [address] [address] Rashmi Nolan Potassium [Moles/Vol] 5.0 mmol/L Normal 3.5-5.1 [facility] Comment on above: Performed By: #### C BC #### [facility] [address] [address] [address] Rashmi Nolan Sodium [Moles/Vol] 141 mmol/L Normal 136-145 [facility] Comment on above: Performed By: #### C BC #### [facility] [address] [place] [address] Dr. Rashmi Nolan Urea nitrogen [Mass/Vol] 41.0 mg/dL Critically high 7.0-18.0 [facility] Comment on above: Performed By: #### C BC #### [facility] [address] [place] [address] Dr. Rashmi Nolan Urea nitrogen/Creatinine [Mass ratio] 21.9 mg/mg Normal [facility] Comment on above: Performed By: #### C BC #### [facility] [address] [place] [address] Dr. Rashmi Nolan COVID/FLU RT-PCRon SARS-CoV-2 (COVID-19) RNA ETELVINA+probe Ql (Unsp spec) Positive [employer] Other COVID/FLU RT-PCR Negative [employer] [facility] Kangsheng Chuangxiang Other BNPon 02-15-2022 Natriuretic peptide B (Bld) [Mass/Vol] 1653.0 pg/mL Normal <=1,800.0 [facility] Comment on above: Performed By: #### C BC #### [facility] [address] [place] [address] Dr. Rashmi Nolan PROF CHEM 8 (BAS METB)on Anion gap [Moles/Vol] 15.8 mmol/L Normal [facility] Comment on above: Performed By: #### C BC #### [facility] [address] [place] [address] Dr. Rashmi Nolan Calcium [Mass/Vol] 9.6 mg/dL Normal 8.5-10.1 [facility] Comment on above: Performed By: #### C BC #### [facility] [address] [place] [address] Dr. Rashmi Nolan Chloride [Moles/Vol] 108 mmol/L Critically high 98-107 [facility] Comment on above: Performed By: #### C BC #### [facility] [address] [place] [address] Dr. Rashmi Nolan CO2 [Moles/Vol] 24.2 mmol/L Normal 21.0-32.0 [facility] Comment on above: Performed By: #### C BC #### [facility] [address] [address] [address] Rashmi Nolan Creatinine [Mass/Vol] 1.87 mg/dL Critically high 0.70-1.30 [facility] Comment on above: Performed By: #### C BC #### [facility] [address] [address] [address] Rashmi Nolan EGFR-AF FRENCH 42 mL/min/1.73m2 Critically low >=60 [facility] Comment on above: Performed By: #### C BC #### [facility] [address] [address] [address] Rashmi Nolan EGFR-NON AF FRENCH 34 mL/min/1.73m2 Critically low >=60 [facility] Comment on above: Performed By: #### C BC #### [facility] [address] [address] [address] Rashmi Nolan Glucose [Mass/Vol] 107 mg/dL Critically high 74-106 [facility] Comment on above: Performed By: #### C BC #### [facility] [address] [address] [address] Rashmi Nolan Potassium [Moles/Vol] 5.0 mmol/L Normal 3.5-5.1 [facility] Comment on above: Performed By: #### C BC #### [facility] [address] [address] [address] Rashmi Nolan Sodium [Moles/Vol] 143 mmol/L Normal 136-145 [facility] Comment on above: Performed By: #### C BC #### [facility] [address] [address] [address] Rashmi Nolan Urea nitrogen [Mass/Vol] 28.0 mg/dL Critically high 7.0-18.0 [facility] Comment on above: Performed By: #### C BC #### [facility] [address] [address] [address] Rashmi Nolan Urea nitrogen/Creatinine [Mass ratio] 15.0 mg/mg Normal [facility] Comment on above: Performed By: #### C BC #### [facility] [address] [address] [address] Rashmi Nolan APTTon 10-13-2021 aPTT Coag (Bld) [Time] 36.7 s High 25.0-35.0 [facility] Comment on above: Result Comment: ALL [...] PURPOSE. Performed By: #### 5 0103 #### [facility] [address] [place] [address], [facility] BASIC METABOLIC PANELon 09-26 Calcium [Mass/Vol] 9.7 mg/dL Normal 8.6-10.3 [facility] Comment on above: Performed By: #### 0 0071, 69183, 55539, 68360 #### [facility] [address] [place] [address], [facility] Chloride [Moles/Vol] 108 mmol/L High 98-107 [facility] Comment on above: Performed By: #### 0 0071, 53970, 83766, 73872 #### [facility] [address] [place] [address], [facility] CO2 [Moles/Vol] 23 mmol/L Normal 21-31 [facility] Comment on above: Performed By: #### 0 0071, 73321, 02498, 67603 #### [facility] [address] [place] [address], [facility] Creatinine [Mass/Vol] 1.98 mg/dL High 0.70-1.30 [facility] Comment on above: Performed By: #### 0 0071, 39887, 66488, 90779 #### [facility] [address] [place] [address], [facility] eGFR- 39 ml/min/1.73sq m Abnormal >60 [facility] Comment on above: Result Comment: Calc ulation may not be valid for patients over 70 years Performed By: #### 0 0071, 48276, 60873, 79044 #### [facility] [address] [place] [address], [place] eGFR- non- 32 ml/min/1.73sq m Abnormal >60 [facility] Comment on above: Result Comment: Calc ulation may not be valid for patients over 70 years Performed By: #### 0 0071, 90610, 07867, 75288 #### [facility] [address] [place] [address], [place] Glucose [Mass/Vol] 88 mg/dL Normal 70-100 [facility] Comment on above: Performed By: #### 0 0071, 39071, 08527, 00919 #### [facility] [address] [place] [address], [place] Potassium [Moles/Vol] 4.8 mmol/L Normal 3.5-5.1 [facility] Comment on above: Performed By: #### 0 0071, 71010, 89858, 01927 #### [facility] [address] [place] [address], [place] Sodium [Moles/Vol] 138 mmol/L Normal 136-145 [facility] Comment on above: Performed By: #### 0 0071, 30203, 70962, 33881 #### [facility] [address] [place] [address], [place] Urea nitrogen [Mass/Vol] 46 mg/dL High 7-25 [facility] Comment on above: Performed By: #### 0 0071, 02863, 54269, 15116 #### [facility] [address] [place] [address], [place] BNP EDon 10-13-2021 Natriuretic peptide B (Bld) [Mass/Vol] 428 pg/mL High 0-100 The [facility] Comment on above: Result Comment: Give n the appropriate clinical setting a BNP result of >100 pg/mL indicates congestive heart failure. Performed By: #### 3 0935 #### [facility] [address] [place] [address], [facility] CBC W/DIFFon 10-13-2021 ABS IMM GRANS 0.0 10*3/uL Normal 0.0-0.2 The [facility] Comment on above: Performed By: #### 5 0103 #### [facility] [address] [place] [address], [facility] ABS NEUTROPHILS 2.8 10*3/uL Normal 1.6-7.6 The [facility] Comment on above: Performed By: #### 5 0103 #### [facility] [address] [place] [address], [facility] Basophils (Bld) [#/Vol] 0.0 10*3/uL Normal 0.0-0.2 The [facility] Comment on above: Performed By: #### 5 0103 #### [facility] [address] [place] [address], [facility] Basophils/100 WBC (Bld) 0.5 % Normal 0.0-1.0 [facility] Comment on above: Performed By: #### 5 0103 #### [facility] [address] [place] [address], [facility] Eosinophils (Bld) [#/Vol] 0.3 10*3/uL Normal 0.0-0.5 [facility] Comment on above: Performed By: #### 5 0103 #### [facility] [address] [place] [address], [facility] Eosinophils/100 WBC (Bld) 7.4 % High 0.0-6.0 [facility] Comment on above: Performed By: #### 3 #### [facility] [address] [facility] Erythrocyte distribution width (RBC) [Ratio] 13.9 % Normal 11.5-15.0 [facility] Comment on above: Performed By: #### 102 #### [facility] [address] [facility]. [address] Hematocrit (Bld) [Volume fraction] 33.5 % Low 39.0-50.0 [facility] Comment on above: Performed By: #### 102 #### [facility] [address] [facility]. [address] Hemoglobin (Bld) [Mass/Vol] 11.4 g/dL Low 13.0-17.0 [facility] Comment on above: Performed By: #### 102 #### [facility] [address] [facility]. [address] IMMATURE GRANS 0.2 % Normal 0.0-1.0 The [facility] Comment on above: Performed By: #### 102 #### [facility] [address] [place] [address], [facility] Lymphocytes (Bld) [#/Vol] 0.9 10*3/uL Low 1.2-4.0 [facility] Comment on above: Performed By: #### 5 3 #### [facility] [address] Lymphocytes/100 WBC (Bld) 20.1 % Normal 20.0-45.0 [facility] Comment on above: Performed By: #### 3 #### [facility] [address] [place] [address], [facility] MCH (RBC) [Entitic mass] 33.1 pg High 27.0-33.0 [facility] Comment on above: Performed By: #### 3 #### [facility] [address] [facility]. [address] MCHC (RBC) [Mass/Vol] 34.0 g/dL Normal 32.0-35.0 [facility] Comment on above: Performed By: #### 3 #### [facility] [address] [facility]. [address] MCV (RBC) [Entitic vol] 97.4 fL Normal 82.0-98.0 [facility] Comment on above: Performed By: #### 3 #### [facility] [address] [place] [address], [facility] Monocytes (Bld) [#/Vol] 0.4 10*3/uL Normal 0.1-1.0 [facility] Comment on above: Performed By: #### 102 #### [facility] [address] [facility]. [address] MONOS 8.4 % Normal 5.0-12.0 [facility] Comment on above: Performed By: #### 5 102 #### [facility] [address] Neutrophils/100 WBC (Bld) 63.4 % Normal 40.0-72.0 [facility] Comment on above: Performed By: #### 3 #### [facility] [address] Nucleated RBC/100 WBC (Bld) [Ratio] 0 % Normal 0-0 [facility] Comment on above: Performed By: #### 5 3 #### [facility] [address] [place] [address], [facility] PLAT CNT 116 10*3/uL Low 150-400 The [facility] Comment on above: Performed By: #### 5 3 #### [facility] [address] [place], [place] [id number] [place] [address] RBC (Bld) [#/Vol] 3.44 10*6/uL Low 4.20-5.70 The [facility] Comment on above: Performed By: #### 5 0103 #### [facility] [address] [place] [address], [facility] WBC (Bld) [#/Vol] 4.43 10*3/uL Normal 4.00-10.60 [facility] Comment on above: Performed By: #### 5 0103 #### [facility] [address] [place], [place] [id number] [place] [address] Cardiovascular Lab Reporton 10-13-2021 Cardiovascular Lab Report [facility] Patient Name: [facility] MR #: [id number] Physician: Royal Gandara MD Department of Service Date: 10/13/2021 Medicine Birthdate: 1935 Division of Room #: [facility] Cardiology Adult Cardiovascular Services [address] [address] Cardiovascular Laboratory Report PACEMAKER IMPLANT PROCEDURE NOTE DATE OF PROCEDURE: 10/13/2021 PERFORMING PHYSICIAN: Dr. Royal Gandara CONSENT: Patient LOCATION: EP Lab PROCEDURE PERFORMED: 1. Implantation of pacemaker ([employer]) 2. Ultrasound guided venous access INDICATIONS: [...] previously recommended a pacemaker, however, presented to [place] ED with a ventricular rate in the 30s. He was subsequently transferred over to [facility] ED for a pacemaker placement. Patient was [...] using modified seldinger technique using a 5 Danish micro-puncture needle on one occasion and 0.35 wire was placed. Local infiltration of 1% Lidocaine was performed, and an incision was created in the left upper chest. Dissection was then performed using cautery down to the fascial plane above the muscle. A small pocket was created for the device. 6 Danish Safesheaths were placed over the wire. An active fixation [employer] pacing lead was then delivered through the 6Fsheath to the right ventricle. After confirmation of lead position on orthogonal views (HANSEN and AMERICAN) to confirm septal position, the screw was [...] immediate procedural complications were noted. Device info: [employer] Accolade MRI EL Model# L331 Serial# [id number] RV lead: Model# [id number] [id number] (59cms) Serial# [id number] Sensin.4mV Threshold: 0.6V@0.4ms Impedance: 598 Ohms POST [...] Gandara MD Date Trans: 10/13/2021 10:46 A/oscar [id number] cc: Jason Silva M.D. [address] [place] [id number] Normal [facility] FRESH FROZEN PLASMA 1 UNITon 10-13-2021 PRODUCT CODE 1 E2701 Normal [facility] Comment on above: Order Comment: INR: 2.88 ,PTT: 36.7 at the time of order ;Indication: Other pacemaker placement Performed By: #### 8 7001 #### [address] PRODUCT STATUS 1 RE Normal [facility] Comment on above: Order Comment: INR: 2.88 ,PTT: 36.7 at the time of order ;Indication: Other pacemaker placement Result Comment: Resu lt changed by IF on 10/19/2021 01:00. The previous value was XM. Performed By: #### 8 7001 #### [facility] [address] [place] [address], [facility] UNIT ABO 1 O Normal [facility] Comment on above: Order Comment: INR: 2.88 ,PTT: 36.7 at the time of order ;Indication: Other pacemaker placement Performed By: #### 8 7001 #### [facility] [address] [place] [address], [facility] UNIT ID 1 [id number] Normal [facility] Comment on above: Order Comment: INR: 2.88 ,PTT: 36.7 at the time of order ;Indication: Other pacemaker placement Performed By: #### 8 7001 #### [facility] [address] [place] [address], [facility] UNIT RH 1 Negative Normal [facility] Comment on above: Order Comment: INR: 2.88 ,PTT: 36.7 at the time of order ;Indication: Other pacemaker placement Performed By: #### 8 7001 #### [facility] [address] [place] [address], [facility] LIVER BATTERYon 10-13-2021 Albumin [Mass/Vol] 4.0 g/dL Normal 3.5-5.7 [facility] Comment on above: Performed By: #### 0 0071, 56402, 96574, 11258 #### [facility] [address] [place] [address], [place] ALKALINE PHOSPH 137 IU/L High 34-104 [facility] Comment on above: Performed By: #### 0 0071, 61474, 11942, 65891 #### [facility] [address] [place] [address], [place] ALT [Catalytic activity/Vol] 29 U/L Normal 7-52 [facility] Comment on above: Performed By: #### 0 0071, 54362, 83092, 13619 #### [facility] [address] [place] [address], [place] AST [Catalytic activity/Vol] 22 U/L Normal 13-39 [facility] Comment on above: Performed By: #### 0 0071, 42688, 48244, 16782 #### [facility] [address] [place] [address], [place] Bilirubin [Mass/Vol] 0.7 mg/dL Normal 0.3-1.0 [facility] Comment on above: Performed By: #### 0 0071, 48595, 18341, 07749 #### [facility] [address] Bilirubin.direct [Mass/Vol] 0.1 mg/dL Normal 0.0-0.2 [facility] Comment on above: Performed By: #### 0 0071, 88363, 64876, 71604 #### [facility] [address] Protein [Mass/Vol] 6.3 g/dL Normal 6.0-8.3 [facility] Comment on above: Performed By: #### 0 0071, 45914, 43611, 04778 #### [facility] [address] [facility] [address] MAGNESIUM BLOODon 10-13-2021 Magnesium [Mass/Vol] 2.0 mg/dL Normal 1.9-2.7 [facility] Comment on above: Performed By: #### 0 0071, 11683, 28945, 64975 #### [facility] 3000 [facility]. [address] POC SARS COV2 ANTIGEN NEGATI VEon 10-13-2021 POC SARS COV2 ANTIGEN NEG Negative Normal NEGATIVE [facility] Comment on above: Result Comment: Nega tive [...] antigen from SARS-CoV-2 in direct nasopharyngeal swab (COMMERCIAL INTELLIGENCE MANAGER) specimens from individuals who are suspected of [...] Accreditation. Performed By: #### 3 2044 #### [address] PORTABLE CHEST 1 VIEWon 09-26 PORTABLE CHEST 1 VIEW [facility] Department of Radiology [address] [place] [id number] Patient Name: RY LERNER : 1935 Sex: M Age: Race: White Pt. Location: [facility] Patient Status: E Ordered Date: 10/13/2021 [...] report. Electronically signed: Mark Aguilar. Transcribed by: [email or web address], User Resident: HUMBLE HERNANDEZ Electronically Signed by: MARK AGUILAR @ 10/13/2021 05:55 AM I personally read this/these film(s) with this resident Normal The [facility] Comment on above: Order Comment: evalu ate for Infiltrates PROTHROMBIN TIMEon 2 INR Coag (PPP) [Relative time] 2.88 {INR} High 0.91-1.16 [facility] Comment on above: Result Comment: ACCC P RECOMMENDED INR FOR WARFARIN THERAPY ------- ------- CONDITION INR PROPHYLAXIS OF VENOUS THROMBOSIS 2-3 (HIGH-RISK SURGERY) TREATMENT OF VENOUS THROMBOSIS 2-3 TREATMENT OF PULMONARY EMBOLISM 2-3 PREVENTION OF SYSTEMIC EMBOLISM: 2-3 ACUTE MYOCARDIAL INFARCTION TISSUE HEART VALVES VALVULAR HEART DISEASE ATRIAL FIBRILLATION RECURRENT SYSTEMIC EMBOLISM MECHANICAL HEART VALVE 2.5-3.5 FROM: ORAL ANTICOAGULANTS. MECHANISM OF ACTION, CLINICAL EFFECTIVENESS, AND OPTIMAL THERAPEUTIC RANGE. CHEST 1995;108:231S-246S. Performed By: #### 5 6101, 85098 #### [address] PT Coag (PPP) [Time] 30.0 s High 12.3-14.8 [facility] Comment on above: Result Comment: ALL RESULTS MUST BE INTERPRETED WITH RESPECT TO BLOOD DRAWING ARTIFACT OR DILUTION ERROR OF ANTICOAGULANT AT THE TIME OF SAMPLING. Performed By: #### 5 6101, 27676 #### [facility] [address] TROPONIN-Ion 10-13-2021 Troponin I.cardiac [Mass/Vol] 0.05 ng/mL High 0.00-0.04 [facility] Comment on above: Result Comment: REFE RENCE RANGES: 0.00 - 0.04 ng/ml NORMAL 0.05 - 0.50 ng/ml INDETERMINATE > 0.50 ng/ml CONSISTENT WITH AN M.I. Performed By: #### 0 0071, 01684, 49747, 63893 #### [facility] [address] TYPE AND SCREENon 10-13-2021 ABO INTERPRETATION O Normal [facility] Comment on above: Performed By: #### 5 0103 #### [facility] [address] [place] [address], [facility] RH INTERPRETATION Positive Normal The [facility] Comment on above: Performed By: #### 5 0103 #### [facility] [address] [place], [place] [id number] [place] [address] Vital Signs Date Time Vital Sign Value Performing Clinician Facility 09-30-2023 14:26-0500 Blood Pressure Location Mary Jane Garza [facility] 09-30-2023 14:26-0500 Body temperature 95.72 [degF] Mary Jane Garza [facility] 09-30-2023 14:26-0500 Diastolic blood pressure 57 mm[Hg] Mary Jane Garza [facility] 09-30-2023 14:26-0500 Heart rate 60 /min Mary Jane Garza [facility] 09-30-2023 14:26-0500 Respiratory rate 16 /min Mary Jane Walshli [facility] 09-30-2023 14:26-0500 Systolic blood pressure 114 mm[Hg] Mary Jane Garza [facility] 06-02-2022 14:50-0400 Body height 182.88 cm Sonja Gilbertler Other [facility] Other 06-02-2022 14:50-0400 Body mass index (BMI) [Ratio] 29.73 kg/m2 Sonja Aden Other [facility] Other 06-02-2022 14:50-0400 Body temperature 99.6 [degF] Sonja Aden Other [facility] Other 06-02-2022 14:50-0400 Body weight 99.43 kg Sonja Aden Other [facility] Other 06-02-2022 14:50-0400 Diastolic blood pressure 54 mm[Hg] Sonja Aden Other [facility] Other 06-02-2022 14:50-0400 Respiratory rate 18 /min Sonja Aden Other [facility] Other 06-02-2022 14:50-0400 SaO2% (BldA) [Mass fraction] 95 % Sonja Aden Other [facility] Other 06-02-2022 14:50-0400 Systolic blood pressure 118 mm[Hg] Sonja Aden Other [facility] Other Encounters Encounter Date Encounter Type Care Provider Facility Start: 10-02-2023 End: 10-03-2023 ambulatory Sheng L Brissa Facility: [facility] Start: 09-30-2023 End: 10-01-2023 ambulatory Sheng L Brissa Facility:[facility] Start: 09-30-2023 End: 09-30-2023 Patient encounter procedure Mary Jane Garza [facility] Start: 09-09-2023 End: 09-10-2023 ambulatory Petros Lee MD Facility: [facility] Start: 09-04-2023 ambulatory Sheng L Brissa Facility: [facility] Start: 09-03-2023 End: 09-04-2023 ambulatory Sheng L Brissa Facility:[facility] Start: 08-29-2023 End: 08-29-2023 ambulatory ADDIE A FELTER Not Available Start: 08-29-2023 Bamboo flowsheet [address] A Fel [address] DIRECT CARE SPECIALIST-SHIPFITTERS SUPERVISOR Work Phone: [facility] Start: 08-29-2023 Bamboo flowsheet Addie A Fel ter DIRECT CARE SPECIALIST-SHIPFITTERS SUPERVISOR Work Phone: [facility] Start: 08-29-2023 End: 08-29-2023 Office outpatient new 30 minutes Addie A Felter DIRECT CARE SPECIALIST-SHIPFITTERS SUPERVISOR Work Phone: [facility] Comment on above: Other atopic dermati tis (Primary Dx); Seborrheic keratosis Start: 08-28-2023 End: 08-29-2023 ambulatory John Nieves Facility: [facility] Start: 07-03-2023 End: 07-04-2023 ambulatory Sheng L Brissa Facility: [facility] Start: 07-02-2023 End: 07-02-2023 ambulatory [facility] Start: 05-15-2023 End: 05-15-[address] [facility] Start: 02-08-2023 End: 02-08-[address] [facility] Start: 01-22-2023 End: 01-23-2023 ambulatory Sheng L Brissa Facility:[facility] Start: 01-22-2023 End: 01-22-2023 Lab Drop off Sheng L Brissa [facility] Start: 12-31-2022 End: 12-31-2022 ambulatory Ward Riki Winchester Facility:[facility] Start: 12-25-2022 End: 12-26-[address] JASON SILVA . Facility:[facility] Start: 12-21-2022 End: 12-22-2022 ambulatory [facility] L Br[facility] Start: 12-17-2022 End: 01-16-2023 ambulatory Sheng L Brissa Facility:[id number] Start: 12-12-2022 End: 12-14-2022 Evaluation and management of inpatient DR JASON SILVA . Facility: Start: 12-11-2022 End: 12-12-2022 ambulatory Sheng L Brissa Facility:[facility] Start: 12-11-2022 End: 12-11-2022 Lab Drop off Sheng L Brissa [facility] Start: 12-10-2022 End: 12-10-2022 [facility]ulatory [facility] Facility[facility] Start: 11-27-2022 End: 11-27-2022 ambulatory ROYAL GANDARA [facility] Start: 11-26-2022 End: 12-26-2022 ambulatory SHAIKH Joe JUNIOR Facility: Start: 11-06-2022 End: 11-07-[address] JASON SILVA . Facility:[facility] Start: 11-06-2022 End: 11-06-2022 ambulatory SOLIS VALLES [facility] Start: 10-29-2022 End: 11-23-2022 ambulatory HAYWARD H FAWWAD Facility:[facility]1 Start: 09-26-2022 End: 10-26-2022 ambulatory HAYWARD H FAWWAD Facility:[facility] Start: 08-29-2022 End: 09-26-2022 ambulatory HAYWARD H FAWWAD Facility:[facility] Start: 08-22-2022 End: 08-23-[address] JASON SILVA . Facility:[facility] Start: 08-16-2022 End: 08-17-[address] JASON SILVA . Facility:[facility] Start: 07-30-2022 End: 08-29-2022 ambulatory HAYWARD H KATWAD Facility:[facility] Start: 07-24-2022 End: 07-25-2022 ambulatory ROYAL GANDARA Facility:[facility] Start: 07-24-2022 End: 07-24-2022 ambulatory ROYAL GANDARA [facility] Start: 06-28-2022 End: 07-29-2022 ambulatory SHAIKH Joe STEPHENSWAD Facility:[facility] Start: 06-02-2022 End: 06-02-2022 ambulatory Sonja Aden Other [place] [employer] Other Start: 06-02-2022 Office outpatient ne w [...] BONILLA Facility:[facility]1 Start: 01-26-2022 End: 02-23-2022 ambulatory HAYWARD H FAWWAD Facility:[facility] Start: 10-13-2021 End: 10-13-2021 ambulatory UNKNOWN PROVIDER Facility:[facility] Start: 10-13-2021 End: 10-13-2021 Emergency department patient visit PHYSICIAN UNKNOWN Facility:[facility] Procedures Date Procedure Procedure Detail Performing Clinician Start: 12-14-2022 Excision of Stomach, Via Natural or Artificial Opening Endoscopic, Diagnostic DR JASON SILVA . Start: 12-14-2022 Inspection of Lower Intestinal Tract, Via Natural or Artificial Opening Endoscopic DR JASON SILVA . Start: 12-12-2022 Transfusion of Nonautologous Red Blood Cells into Peripheral Vein, Percutaneous Approach DR JASON SILVA . Start: 12-12-2022 Colonoscopy Sheng Ferro b Start: 12-10-2022 Decompression of med lluvia nerve Shengumair Molinaab Comment on above: Left Start: 08-22-[address] JASON MENDOZAT . Comment on above: Performed By: #### B MP #### [facility] [address] [place] [address] Dr. Rashmi Nolan Start: 10-13-2021 Antibody screen PHYSICI AN UNKNOWN Comment on above: Performed By: #### [id number] #### [facility] [address] Start: 09-26-2021 Cardiac pacemaker, d evice (physical object) Sheng Molinaab Start: 02-26-2011 Colonoscopy Sheng Molinaa b Start: 07-29-1995 TURP syndrome (disorder) Sheng Molinaab Start: 07-29-1993 Herniated structure (morphologic abnormality) Sheng Brissa Tonsillectomy and adenoidectomy Sheng Brissa Plan of Treatment Date Care Activity Detail Author Start: 08-29-2023 End: 08-29-2023 Patient encounter procedure 08/29/2023 1:00 PM EST Office Visit [facility] [address] [place] [id number] Addie Huston, DIRECT CARE SPECIALIST-SHIPFITTERS SUPERVISOR [address] [place] [address] Arrived [facility] Comment on above: Arrived Immunizations Immunization Date Immunization Notes Care Provider Fa cili 08-02-2023 zoster vaccine recombinant Mohamad Mouchli [facility] 07-03-2023 influenza virus vaccine, unspecified formulation Mohamad Mouchli [facility] 07-03-2023 pneumococcal 20-aurelio nt conjugate vaccine Mohamad Mouchli [facility] 05-02-2022 influenza virus vaccine, unspecified formulation Sheng Brissa [facility] 05-02-2022 Seasonal trivalent influenza vaccine, adjuvanted, preservative free Addie Huston [facility] Work Phone: [facility] 04-28-2021 SARS-CoV-2 (COVID-19 ) mRNA-1273 vaccine Mohamad Mouchli [facility] 09-17-2020 SARS-CoV-2 (COVID-19 ) mRNA BNT-162b2 vax Sheng Brissa [facility] Comment on above: Result Comment: 2022: [id number] 08-27-2020 SARS-CoV-2 (COVID-19 ) mRNA BNT-162b2 vax Sheng Brissa [facility] Comment on above: Result Comment: 2022: [id number] 06-13-2020 influenza virus vaccine, unspecified formulation Sheng Brissa [facility] 06-01-2019 influenza virus vaccine, unspecified formulation Sheng Brissa [facility] 04-14-2018 influenza virus vaccine, unspecified formulation Sheng Brissa [facility] 04-22-2017 influenza virus vaccine, unspecified formulation Sheng Brissa [facility] 05-01-2016 influenza virus vaccine, unspecified formulation Sheng Brissa [facility] 06-02-2015 influenza virus vaccine, unspecified formulation Sheng Brissa [facility] 05-31-2014 influenza virus vaccine, unspecified formulation Sheng Brissa [facility] 06-02-2013 influenza virus vaccine, unspecified formulation Sheng Brissa [facility] 05-29-2005 influenza, whole Sheng Brissa [facility] Payers Date Payer Category Payer Unknown [facility] 1999 Medicare [id number] 1959 Medicare [id number] 1934 Unknown [id number] 2.16.8 40.1.810440.3.579.2.647 1934 Unknown [id number] 2.16. 840.1.280809.3.579.2.732 1934 Unknown [id number] 2.16. 840.1.203693.3.579.2.732 1934 Unknown [id number] 2.16.8 40.1.215554.3.579.2.718 1934 Unknown [id number] 2.16.8 40.1.978191.3.579.2.718 1934 Unknown [id number] 2.16.84 0.1.318679.3.579.2.593 1934 Unknown [id number] 2.16.84 0.1.750458.3.579.2.593 1934 Unknown [id number] 2.16.84 0.1.808937.3.579.2.593 1934 Unknown [id number] 2.16.84 0.1.469603.3.579.2.593 1934 Unknown [id number] 2.16.84 0.1.294289.3.579.2.593 1934 Unknown [id number] 2.16.84 0.1.531632.3.579.2.593 1934 Unknown [id number] 2.16.84 0.1.171103.3.579.2.593 1934 Unknown [id number] 2.16.84 0.1.326439.3.579.2.593 1934 Unknown [id number] 2.16.84 0.1.121063.3.579.2.593 1934 Unknown [id number] 2.16.84 0.1.098282.3.579.2.593 1934 Unknown [id number] 2.16.84 0.1.960670.3.579.2.593 1934 Unknown [id number] 2.16.84 0.1.896198.3.579.2.593 1934 Unknown [id number] 2.16.84 0.1.573443.3.579.2.593 1934 Unknown [id number] 2.16.84 0.1.648136.3.579.2.593 1934 Unknown [id number] 2.16.84 0.1.294773.3.579.2.593 1934 Unknown [id number] 2.16.84 0.1.464846.3.579.2.593 1934 Unknown [id number] 2.16.84 0.1.348438.3.579.2.593 193 Unknown [id number] 2.16.84 0.1.331990.3.579.2.593 1934 Unknown [id number] 2.16.84 0.1.838864.3.579.2.1259 1934 Unknown [id number] 2.16. 840.1.812790.3.579.2.196 1934 Unknown [id number] 2.16.8 40.1.624023.3.579.2.727 193 Unknown [id number] 2.16.8 40.1.492560.3.579.2.727 1934 Unknown [id number] 2.16.8 40.1.995863.3.579.2.727 1934 Unknown [id number] 2.16.8 40.1.352288.3.579.2.727 1934 Unknown [id number] 2.16.8 40.1.286514.3.579.2.727 1934 Unknown [id number] 2.16.8 40.1.151348.3.579.2.727 1934 Unknown [id number] 2.16.8 40.1.042374.3.579.2.727 193 Unknown [id number] 2.16.8 40.1.387148.3.579.2.727 1934 Unknown [id number] 2.16.8 40.1.807769.3.579.2.727 1934 Unknown [id number] 2.16.8 40.1.604250.3.579.2.727 1934 Unknown [id number] 2.16.8 40.1.432744.3.579.2.727 Social History Date Type Detail Facility Unknown if ever smoked [employer] Other Start: 02-05-2023 End: 08-29-2023 Sex Assigned At [facility] Start: 12-11-2022 End: 12-13-2022 Tobacco smoking status Never smoked tobacco (finding) [facility] Tobacco smoking status Never [facility] Comment on above: Quit in 2002 Start: 01-22-2023 End: 09-30-2023 Tobacco smoking status Ex-smoker (finding) [facility] Comment on above: Quit in 2002 Start: 12-13-2022 Tobacco use and exposure Smokeless tobacco non-user [facility] Start: 02-05-2023 End: 08-29-2023 Alcohol intake Current drinker of alcohol (finding) [facility] Start: 02-05-2023 End: 08-29-2023 History of Social function [facility] Start: 1935 Sex Assigned At Not on file [facility] Functional Status Date Assessment Result Facility 09-30-2023 Functional Status N/A 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 Device check performed on 06/12/2022 shows thresholds to be good. he is in persistent A. Fib and underwent a single-chamber pacemaker. with [employer] on 10/13/2021 and paced 65% Echocardiogram performed [...] test about 12 years ago in [place], and was in hospital with noted a fib currently on coumadin anticoagulation. Echocardiogram performed on 11/30/2020 at [facility] shows an ejection fraction of [...] mg DR lindsay (more content not included)... [facility] 05-15-2023 Note Patient here for 3 m [...] All other systems reviewed and are negative. [facility] 02-18-2023 Note Stable -ct medications [facility] 02-18-2023 Note [id number]: at [facility] 3 for age and htn -restart warfarin, will follow coumadin clinic here at [facility] -is to report any concerns for bleeding -follow up in 2 months to discuss how he is doing -patient prefers to not consider watchmen if he does not have to [facility] 02-08-2023 Note Patient here for [facility] for GI bleed. He was discharged on 12/14 and coumadin was put on hold. Denies chest pain, SOB, and palpitations. Lost his recently. Review of Systems Musculoskeletal: Positive for arthritis, joint pain and muscle cramps. Neurological: Positive for numbness. All other systems reviewed and are negative. [facility] 02-08-2023 Note [place] [facility] Reason for visit: Afib. S/p PPM HPI: Ry Lerner is a 87 y.o. 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 Device check performed on 06/12/2022 shows thresholds to be good. he is in persistent A. Fib and underwent a single-chamber pacemaker. with [employer] on 10/13/2021 and paced 65% Echocardiogram [...] test about 12 years ago in [place], and was in hospital with noted a fib currently on coumadin anticoagulation. Echocardiogram performed on 11/30/2020 at [facility] shows an ejection fraction of [...] No current facility (more content not included)... [facility] 01-01-2023 Note [id number] 01-01-2023 Note [id number] 12-31-2022 Note [facility] SURGERY Clinical Discharge Summary PERSON INFORMATION Name RY LERNER Age 87 Years 1935 Sex MALE Language Guamanian PCP Ezequiel CHAMBERS, John Rodríguez Marital Status Med Service Ambulatory Surgery Acct# Arrival 12/31/2022 08:09:06 Visit Reason SURGERY - RIGHT CARPAL TUNNEL RELEASE Acuity LOS 039 21:33 Address: [address] [place] [id number] Comment: PROVIDER INFORMATION VITALS INFORMATION Vital Sign [...] release capsule) 1 cap(s) Oral every day. [place]'s wort (Lindsey's wort oral tablet) 1 tab(s) [...] release capsule) 1 cap(s) Oral every day. [place]'s wort (Lindsey's wort oral tablet) 1 tab(s) [...] 1 cap(s) Oral every day. Lindsey's wort ([place]'s wort oral tablet) 1 tab(s) Oral 2 [...] REASON INCOMPLETE INFORMATION PATIENT EDUCATION INFORMATION Instructions: [place]- Post Op Carpal Tunnel (CUSTOM) Follow up: With: Address: When: MARJ PEREZ [address] [place] [address], [address] [place] [address] [facility] (1) 01/09/2023 11:00 AM DIAGNOSIS Carpal tunnel syndrome, right Comment: PHYS DOC NOTES [facility] 12-31-2022 Note Procedure: Decompres mary [...] on: 12/31/2022 09:43 EDT] Ward Martinez DO [facility] 12-25-2022 Note [id number] [facility] 12-12-2022 Note [id number] [facility] 12-10-2022 Note procedure: Decompres mary [...] on: 12/10/2022 15:46 EDT] Ward Martinez DO [facility] 12-10-2022 Note [facility] SURGERY Clinical Discharge Summary PERSON INFORMATION Name RY LERNER Age 87 Years 1935 Sex MALE Language Guamanian PCP Ezequiel CHAMBERS, John Rodríguez Marital Status [facility] Service Ambulatory Surgery Acct# Arrival 12/10/2022 13:13:28 Visit Reason SURGERY - LEFT CARPAL TUNNEL RELEASE Acuity LOS 019 02:57 Address: [address] [place] [address] Comment: PROVIDER INFORMATION VITALS INFORMATION Vital Sign [...] Follow up: With: Address: When: Ward Martinez [address] [place] [address], [address] [place] [address] [facility] (1) 12/18/2022 1:30 PM Type Location Start [facility] ([facility] Main OR 12/31/2022 7:30 AM 12/31/2022 8:00 AM Confirmed DIAGNOSIS Carpal tunnel syndrome of left wrist Comment: PHYS DOC NOTES [facility] 11-06-2022 Note Cardiology Clinic No te Subjective Ry Lerner is a 87 y.o. 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 Echocardiogram performed on 11/30/2020 at [facility] shows an ejection fraction of [...] falls and he has been in the [facility] lately. Device check performed on 06/12/2022 shows thresholds to be good. he is in persistent A. Fib and underwent a single-chamber pacemaker. with [employer] on 10/13/2021 and paced 65% Echocardiogram [...] LV systolic funct (more content not included)... [facility] 11-06-2022 Note Patient here for 4 m [...] All other systems reviewed and are negative. [facility] 07-24-2022 [place] [facility] [place] Reason for visit: [...] falls and he has been in the [facility] lately. Device check performed on 06/12/2022 shows thresholds to be good. he is in persistent A. Fib and underwent a single-chamber pacemaker. with [employer] on 10/13/2021 and paced 65% Echocardiogram performed on 10/24/2021 showed EF of 55% with a dilated RV and mild biatrial dilatation with mild TR and mildly elevated RVSP of 39 mmHg HPI: 85 yo male presents to clinic as new pt from Dr Silva for concerns of newly noted bradycardia. He was seen by oLrri Henriquez and Holter ordered. Pt reports that [...] test about 12 years ago in [place], and was in hospital with noted a fib currently on coumadin anticoagulation. Echocardiogram performed on 11/30/2020 at [facility] shows an ejection fraction of [...] Murmur: not hea (more content not included)... [facility] 07-24-2022 Note Review of Systems Cardiovascular: Positive [...] the day. Also has questions about medications [facility] 06-02-2022 Evaluation note Encounter Date Diagnosis Assessment [...] treatment plan. Patient left in stable condition [employer] [facility] [employer] Other [id number] History general Narrative - Reported* Type Description Date Medical History HYPERTENSION Medical History STROKE Medical History HEAD INJURY Surgical History PACEMAKER 10/13/2021 Surgical History HERNIA X 2 Surgical History TONSILECTOMY Hospitalization History SEE ABOVE [employer] Other Evaluation + Plan note No data available for this section [facility] Future Appointments Appointment Date:08/27/2023 09:30:00 AM Scheduled Provider: Location:[facility] Appointment Type: Medicare Wellness Subsequent [facility] Future Appointments Appointment Date:10/02/2023 10:00:00 AM Scheduled Provider:Sheng Simms Location:[facility] Appointment Type: Open Future Scheduled Tests Laboratory* Alkaline Phosphatase Isoenzymes 09/30/23 * H. pylori Stool Ag 09/30/23 * Ferritin 09/30/23 * Iron Level 09/30/23 [facility] Evaluation note* Diagnosis Other atopic dermatitis- Primary Seborrheic keratosis [facility] No data available for this section [facility] No data available for this section [facility] Summary Purpose Family History No Family [...] and content) DATE CREATED AUTHOR 01/26/2022 [facility] DATE CREATED AUTHOR AUTHOR'S ORGANIZ ATION 04/25/2022 [facility] DATE CREATED AUTHOR AUTHOR'S ORGANIZ ATION 01/06/2023 [facility] DATE CREATED AUTHOR AUTHOR'S ORGANIZ ATION 01/06/2023 [facility] DATE CREATED AUTHOR AUTHOR'S ORGANIZ ATION 07/04/2023 [facility] DATE CREATED AUTHOR AUTHOR'S ORGANIZ ATION 08/31/2023 [facility] DATE CREATED AUTHOR AUTHOR'S ORGANIZ ATION 09/15/2023 [facility] DATE CREATED AUTHOR AUTHOR'S ORGANIZ ATION 10/17/2023 [facility] REASON FOR VISIT (unrecogniz ed section and content) Reason Comments Rash Specialty Diagnoses / Procedures Referred By Daniel t Referred To Contact Dermatology Diagnoses eczema / skin changes texture changes Sheng Rey MD [address] [place] [address] Rebecca Conley MD [address] [place] [address] Referral ID Status Reason Start Date Expiration Date Visits Re quested Visits Authorized [id number] Closed 07/05/2023 01/01/2024 1 1 Patient Care team informatio n (unrecognized section and content) [employer] Relationship Specialty Start Date End Date Jason Silva MD [address] [place] [phone] PCP - General Family Medicine 12/10/22 [employer] Relationship Specialty Start Date End Date Jason Silva MD [address] [place] [phone] PCP - General Family Medicine 12/10/22 [...] BE BASED ON THE PRIMARY CLINICAL RECORDS. [facility]. provides no warranty or guarantee of the accuracy or completeness of information in this document.
--- NOTE | 2023-10-18 08:30 | ED.EPISTAXI1 ---
HPI - Epistaxis General Chief Complaint: Epistaxis Stated Complaint: BLOODY NOSE Time Seen by Provider: 10/18/23 08:18 Source: patient Mode of arrival: walk-in Limitations: no limitations History of Present Illness HPI Narrative: Patient developed nosebleed a couple of hours ago. he said that he blew his nose like I do every morning and then a short time later it started to bleed. No recent nosebleeds - it has been a couple of months. He said he had his nose cauterized about 50 years ago - no recent ENT visits. he takes warfarin daily with his last dose this morning. Related Data Home Medications ?Medication ?Instructions ?Recorded ?Confirmed amlodipine 5 mg tablet 5 mg PO DAILY 09/09/23 10/18/23 furosemide 40 mg tablet 40 mg PO DAILY 09/09/23 10/18/23 lisinopril 20 mg tablet 10 mg PO DAILY 09/09/23 10/18/23 omeprazole 40 mg capsule,delayed 40 mg PO DAILY 09/09/23 10/18/23 release warfarin 5 mg tablet 5 mg PO DAILY 09/09/23 10/18/23 Allergies Allergy/AdvReac Type Severity Reaction Status Date / Time No Known Drug Allergies Allergy Verified 09/09/23 15:06 Exam Narrative Exam Narrative: Nurses notes and vital signs reviewed and patient is not hypoxic. afebrile General: Well-appearing and in no apparent distress. Skin: Warm, dry, no pallor noted. Head: Normocephalic, atraumatic. Neck: Supple, non-tender. Eye: Pupils are equal, round and EOMI. No scleral icterus. Ears, Nose, Mouth, and Throat: Slow bleeding from right anterior septum near Kiesselbach's plexus. There is some blood dripping into the posterior pharynx. he is spitting up blood into a plastic drink container. Cardiovascular: Regular Rate and Rhythm without murmur, gallop or rub. Respiratory: No accessory muscle use or respiratory distress. Lungs are clear to auscultation, no wheezing, rales or rhonchi Neurological: A&O x4. No cranial nerve dysfunction observed. No truncal ataxia. Moves all extremities. Sensation intact. Psychiatric: Cooperative and interactive. Normal mood and affect. Constitutional Vital Signs, click to edit/add: Last Vital Signs Temp 97.8 F 10/18/23 08:12 Pulse 65 10/18/23 09:27 Resp 18 10/18/23 09:27 BP 153/78 H 10/18/23 09:27 Pulse Ox 100 10/18/23 09:27 O2 Del Method Room Air 10/18/23 08:12 Course Vital Signs Vital signs: Vital Signs Temperature 97.8 F 10/18/23 08:12 Pulse Rate 83 10/18/23 08:12 Respiratory Rate 18 10/18/23 08:12 Blood Pressure 176/78 H 10/18/23 08:12 Pulse Oximetry 98 10/18/23 08:12 Oxygen Delivery Method Room Air 10/18/23 08:12 Temperature 97.8 F 10/18/23 08:12 Pulse Rate 65 10/18/23 09:27 Respiratory Rate 18 10/18/23 09:27 Blood Pressure 153/78 H 10/18/23 09:27 Pulse Oximetry 100 10/18/23 09:27 Oxygen Delivery Method Room Air 10/18/23 08:12 MDM - Epistaxis MDM Narrative Medical decision making narrative: The patient had a nasal clamp applied shortly after arrival. After examining the patient I sprayed Kevin-Synephrine into the patient's right nasal passage and then reapply the clamp to hold for about 10 minutes. WBC 3.1, Hb 8.6, Plt 111. INR elevated at 3.26. PT elevated at 32.3, PTT normal at 35.7 Patient's bleeding stopped after kevin-synephrine use. He was informed of elevated INR - he will need to hold the next 2 doses. His thrombocytopenia is chronic. Patient told me that he took four baby aspirin last night to help him sleep . I let him know that with his chronic anemia and thrombocytopenia as well as daily coumadin use that he cannot take aspirin. Patient discharged home after being observed for more than an hour after epinephrine was placed into the left nasal passage and no rebleeding observed. Lab Data Attestation: I reviewed the patient's lab results. Labs: Lab Results 10/18/23 Range/Units 08:31 WBC 3.1 L (4.0-11.0) 10^3/uL RBC 2.75 L (4.70-6.10) 10^6/uL Hgb 8.6 L (14.0-18.0) g/dL Hct 27.6 L (42.0-54.0) % MCV 100.4 H (80.0-94.0) fL MCH 31.3 (25.9-34.0) pg MCHC 31.2 (29.9-35.2) g/dL RDW 13.7 (11.0-15.0) % Plt Count 111 L (150-450) 10^3/uL MPV 9.8 (9.5-13.5) fL Neut % (Auto) 67.2 (43.0-75.0) % Lymph % (Auto) 19.0 L (20.5-60.0) % Bullock % (Auto) 9.0 (1.7-12.0) % Eos % (Auto) 4.2 (0.9-7.0) % Baso % (Auto) 0.3 (0.2-2.0) % Neut # (Auto) 2.1 (1.4-6.5) 10^3/uL Lymph # (Auto) 0.6 L (1.2-3.8) 10^3/uL Bullock # (Auto) 0.3 (0.3-0.8) 10^3/uL Eos # (Auto) 0.1 (0.0-0.7) 10^3/uL Baso # (Auto) 0.0 (0.0-0.1) 10^3/uL Abs Immat Gran (auto) 0.01 (0.00-0.03) 10^3/uL Imm/Tot Granulo (auto) 0.3 (0.0-0.5) % PT 32.3 H (9.0-11.6) sec INR 3.26 APTT 35.7 (22.3-36.2) sec Discharge Plan Discharge Stand Alone Forms: Portal Instructions Chief Complaint: Epistaxis Clinical Impression: Epistaxis, Thrombocytopenia, Elevated INR Patient Disposition: Home, Self-Care Time of Disposition Decision: 09:12 Prescriptions / Home Meds: No Action amlodipine 5 mg tablet 5 mg PO DAILY lisinopril 20 mg tablet 10 mg PO DAILY warfarin 5 mg tablet 5 mg PO DAILY furosemide 40 mg tablet 40 mg PO DAILY omeprazole 40 mg capsule,delayed release(DR/EC) 40 mg PO DAILY Print Language: Frisian Instructions: Nosebleed (ED), Elevated INR (ED), Thrombocytopenia (ED) Additional Instructions: Hold next 2 doses of coumadin Referrals: Shanique Salazar MD [Physician] - As needed SHENG LAGOS [Primary Care Provider] - 1 week
[2023-10-18 08:38] LABS: Basophils Percent Auto 0.3 % (0.2-2.0); Eosinophils Absolute Auto 0.1 10^3/uL (0.0-0.7); Eosinophils Percent Auto 4.2 % (0.9-7.0); Hematocrit 27.6 % (42.0-54.0); Hemoglobin 8.6 g/dL (14.0-18.0); Immature Granulocytes Abs Auto 0.01 10^3/uL (0.00-0.03); Immature Granulocytes Pct Auto 0.3 % (0.0-0.5); Lymphocytes Absolute Auto 0.6 10^3/uL (1.2-3.8); Mean Corpuscular HGB Conc 31.2 g/dL (29.9-35.2); Mean Corpuscular Hemoglobin 31.3 pg (25.9-34.0); Mean Corpuscular Volume 100.4 fL (80.0-94.0); Mean Platelet Volume 9.8 fL (9.5-13.5); Monocytes Absolute Auto 0.3 10^3/uL (0.3-0.8); Neutrophils Absolute Auto 2.1 10^3/uL (1.4-6.5); Neutrophils Percent Auto 67.2 % (43.0-75.0); Platelet Count 111 10^3/uL (150-450); Red Blood Count 2.75 10^6/uL (4.70-6.10); Red Cell Distribution Width 13.7 % (11.0-15.0); White Blood Count 3.1 10^3/uL (4.0-11.0)
[2023-10-18] MEDS: PHENYLEPHRINE HCL 0.25 % NASAL SPRAY 2 SPRAY NS (08:38)
[2023-10-18 08:58] LABS: INR 3.26; Partial Thromboplastin Time 35.7 sec (22.3-36.2); Prothrombin Time 32.3 sec (9.0-11.6)
[2023-10-18 09:27] VITALS: BP 153/78; PULSE 65; RESP 18; O2SAT 100
== END 2023-10-18 10:54 | disposition home or self-care (01) ==
PROVIDERS: Emergency Provider Emergency Medicine; PCP Nurse Practitioner
DX: R04.0 Epistaxis (principal); R79.1 Abnormal coagulation profile; D69.6 Thrombocytopenia, unspecified; Z79.01 Long term (current) use of anticoagulants; Z79.899 Other long term (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 therapy
CPT/HCPCS: 30905; 36415; 85025; 85610; 85730; 99283

== ENCOUNTER 2023-10-21 07:05 | Emergency (ER) | payer MEDICARE, SELFPAY ==
[2023-10-21 07:11] VITALS: BP 138/62; PULSE 74; RESP 18; TEMP 36.7; O2SAT 100; BMI 29.3
--- OUTSIDE RECORDS SUMMARY | 2023-10-21 07:17 | XMS_ITS | CCD ---
Author Organization [facility] Care Team Providers Care Global Sales Executive Name Role Phone UNKNOWN, PHYSICIAN Referring Unavailable SILVAJASON CRUZ Primary Care Unavailable HERCHER DEJON Attending Unavailable HERCHER, DEJON Admitting Unavailable PROVIDER, UNKNOWN Attending Unavailable PROVIDER, UNKNOWN Admitting Unavailable PROVIDER, UNKNOWN Attending Unavailable PROVIDER, UNKNOWN Admitting Unavailable Sonja Aden Unavailable Sheng Rey Primary Care Physician [phone] Ward Martinez Admitting Unavail able Juan, Ward [...] Unavailable Silva Jason CHAMBERS Primary Care Provider [phone] ADDIE HUSTON Attending Unavailable BRISSA, SHENG Referring [...] Propensity to adverse reactions to drug (disorder) [facility] Repository Medications Current Medications Medication [...] Daily, # 90 tab(s), Refills(s) 1, Pharmacy: [facility], 179, cm, 09/03/23 10:34:00 EST, Height/Length [...] Daily, # 90 tab(s), Refills(s) 1, Pharmacy: [facility], 178, cm, 07/03/23 9:26:00 EST, Height/Length [...] 3 Chronic Other aftercare (1 source) 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 Ambulatory Visit Summaryon 0 10-02-2023 Ambulatory Visit [...] choosing us for your care. Normal [facility] Family Medicine Office/Clini c Noteon 10-02-2023 Family Medicine Office/Clinic Note HPI Staff Ry is an 87 year old male presenting for 1 month follow up SOCORRO 09/04/23 Liver nodule, U/s of liver was ordered and referred to GI at [facility], labs drawn pt seen seen risk control director 09/30/[address] with some [...] pt planning to take a trip to [place] tomorrow and will be gone for 9 [...] inactivated 04/14/20 (more content not included)... Normal [facility] Comment on above: Result Comment: Elec tronically [...] Recorded SARS-CoV-2 (COVID-19 (more content not included)... [facility] Comment on above: Result Comment: Elec tronically Signed By: Greg CHAMBERS, Mary Jane Eddy\.br\Date and Time Signed: 09/30/23 14:51 EST Consultation Noteon 09-09-19 24 Consultation Note [id number]#1 .00TIFF [facility] Physician Referralon 024 Physician Referral [id number]#1 .00TIFF [facility] Family Medicine Office/Clini c Noteon 09-04-2023 Family Medicine Office/Clinic Note HPI Staff Raza is a 87 year old male presenting to review x-rays Pt has x-rays done on 08/28/23, CT chest on 08/30/[address] right shoulder 09/02/23 Pt needs refill on furosemide pt states 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 pt referred to GI at [facility]. liver enzymes ordered as well. pt will have labs drawn at [facility]. RTC 1 month to touch base with all of the additional testing and referral we have placed. Ordered: [facility] Internal Ambulatory Referral 2. Nodule of kidney [...] stools and HGB dropped critically low Ordered: [facility] Internal Ambulatory Referral 5. Abnormal x-ray of cervical spine (R93.7: Abnormal findings on diagnostic imaging of other parts of musculoskeletal system) CT of cervical spine ordered 6. Rotator cuff tear (M75.100: Unspecified rotator cuff tear or rupture of unspecified shoulder, not specified as traumatic) pt informed that he has an old rotator cuff tear. pt declines referral to ortho at this time Ordered: [facility] External Ambulatory Referral 7. BMI 31.0-31.9,adult (Z68.31: [...] 12:27 EST Physician Referralon 024 Physician Referral [id number]#1 .00TIFF Normal [facility] Ambulatory Visit Summaryon 0 09-03-2023 Ambulatory Visit [...] 10:00 AM EST With: Sheng Simms Where: [facility] [place] Normal [facility] Lab Reportson 09-03-2023 Lab Reports .[id number]#1 .00TIFF [facility] Lab Reports [id number]#1 .00TIFF [facility] Physician Orderon 09-03-2023 Physician Order [id number]#1 .00TIFF [facility] Consultation Noteon 08-30-19 Consultation Note [id number]#1 .00TIFF [facility] Physician Orderon 08-30-2023 Physician Order [id number]#1 .00TIFF [facility] Physician Orderon 08-29-2023 Physician Order [id number]#1 .00TIFF [facility] Physician Order [id number]#1 .00TIFF [facility] RAD - MISCon 08-29-2023 RAD - MISC [id number]# 1.00TIFF [facility] RAD - MISC [id number]# 1.00TIFF [facility] RAD - MISC [id number]#1 .00TIFF [facility] Ambulatory Visit Summaryon 0 08-28-2023 Ambulatory [...] 10:20 AM EST With: Sheng Simms Where: [facility] [place] Normal [facility] Family Medicine Office/Clini c Noteon 08-28-2023 Family [...] of clutter to prevent tripping and/or falling. [place] Advance Directives reviewed, yes on file in [...] UTD, patient to bring cholesterol results to [facility]. Colonoscopy up to date, last completed 12/12/2022. [...] has a difficult (more content not included)... [facility] Comment on above: Result Comment: Elec tronically Signed By: Sheng Simms\.br\Date and Time Signed: 08/28/23 13:35 EST\.br\Electronically Co-Signed By: Rene Brannon\.br\Date and Time Co-Signed: 08/28/23 13:09 EST [facility] 08-28-2023 Forms [id number]#1 .00TIFF [facility] Patient Educationon 08-28-19 Patient Education Caregiving [...] night-lights. ? Place frequently used items in vagl-hq-ayahc places. Lower the shelves around your home [...] the way. ? Do not use floor setswana or wax that makes floors slippery. If [...] include working with a physical therapist or corporate sales trainer to improve your strength, balance, and endurance. Where to find more information ? Centers for Disease Control and Prevention, [place]: www.cdc.gov ? National [place] on Aging: www.ed.nih.gov Contact a health care [...] (more content not included)... Normal [facility] Physician Referralon 023 Physician Referral [id number]# 1.00TIFF Normal [facility] Ambulatory Visit Summaryon 1 09-03-2022 Ambulatory Visit [...] Follow-Up Appointments Saturday 11:00 AM EST Where: [facility] [place] Normal [facility] Family Medicine Office/Clini c Noteon 07-03-2023 Family [...] is worsening. all questions answered. RTC for [facility] wellness visit. pt will needs CBC and CMP drawn at that visit. Ordered: [facility] External Ambulatory Referral [facility] External Ambulatory Referral 2. Skin texture changes (R23.4: Changes in skin texture) pt has a couple areas on his face that have changes in shape and color and will come off or flake off then comes back. Dr. Silva froze a couple areas a few years ago. will refer to dermatology to manage these areas and his eczema. Ordered: [facility] External Ambulatory Referral [facility] External Ambulatory Referral 3. BMI 31.0-31.9,adult (Z68.31: Body mass index [BMI] 31.0-31.9, adult) BMI education complete Ordered: Body Mass Index (BMI) documented 3008F Current tobacco non-user 1036F Depression Screening Negative 3352F [facility] External Ambulatory Referral [facility] External Ambulatory Referral Influenza immunization status [...] tobacco non-user 1036F Depression Screening Negative 3352F [facility] External Ambulatory Referral [facility] External Ambulatory Referral Influenza immunization status [...] tobacco non-user 1036F Depression Screening Negative 3352F [facility] External Ambulatory Referral [facility] External Ambulatory Referral Influenza immunization status [...] (more content not included)... Normal [facility] Comment on above: Result Comment: Elec tronically Signed By: Sheng Simms.viviane\Date and Time Signed: 07/03/23 12:49 EST [facility] 07-02-2023 Lab Reports [id number]#1 .00TIFF Normal [facility] Office Visiton 05-15-2023 Follow-up visit [id number] Ry Lerner 1935 [address] [facility] Provider Department Center 05/15/2023 CHARISSE WINSLOW [facility] Family History Family history unknown: Yes Level of Service:66179 MT OFFICE/OUTPATIENT ESTABLISHED MOD MDM 30-39 MIN [facility] Physician Referralon 023 Physician Referral [id number]#1 .00CD:127 [facility] Consultation Noteon 03-11-20 Consultation Note [id number]#1 .00CD:127 [facility] Office Visiton 02-08-2023 Follow-up visit [id number] Ry Lerner 1935 [facility] Provider Department Center 02/08/2023 CHARISSE WINSLOW [facility] Family History Family history unknown: Yes Level of Service:81533 MT OFFICE/OUTPATIENT ESTABLISHED MOD MDM 30-39 MIN [facility] Family Medicine Office/Clini c Noteon 01-23-2023 [...] at this time. Patient was treated at [facility]. Questions/Concerns: History of Present Illness [...] to follow up with Dr. Vargas in [place] and also placed a GI consult. since then his so he has not made any of those appointments. pt wants to stop taking lasix. encouraged daughter to make appointment with Dr. Vargas and let him decide if he can stop lasix. will draw pt/ptt in office today and compare to labs that were drawn in [place] end of November. still waiting for those labs. will call pt tomorrow once we have lab results. omeprazole refills also sent to pharmacy. they will hold off on GI referral until they get meds situated with metallurgical specialist. Dr. Vargas's office was called notified. [...] (more content not included)... Normal [facility] Comment on above: Result Comment: Elec tronically Signed By: Sheng Simms\.viviane\Date and Time Signed: 01/23/23 16:36 EDT Auto Diffon 01-22-2023 Basophils/100 WBC (Bld) 0.5 % Normal 0.0-2.0 [facility] Comment on above: Order Comment: Order Added by Discern Expert. Performed By: #### 2 203953, 30698215, 1552965, 9730325 ####[facility] [address] [place] [address] Basophils/Leukocytes Auto (Bld) [Pure # fraction] 0.0 E9/L Normal 0.0-0.2 [facility] Comment on above: Order Comment: Order Added by Discern Expert. Performed By: #### 2 960256, 75213239, 5861871, 6355927 ####[facility] [address] [place] [address] Eosinophils/100 WBC (Bld) 4.7 % Normal 0.0-8.0 [facility] Comment on above: Order Comment: Order Added by Discern Expert. Performed By: #### 2 664224, 56683833, 2525285, 3185964 ####[address] [place] [address] Eosinophils/Leukocyt es Auto (Bld) [Pure # fraction] 0.2 E9/L Normal 0.0-0.5 [facility] Comment on above: Order Comment: Order Added by Discern Expert. Performed By: #### 2 456156, 58650192, 3096650, 6815037 ####[facility] [address] [place] [address] Lymphocytes/100 WBC (Bld) 20.4 % Normal 14.0-50.0 [facility] Comment on above: Order Comment: Order Added by Discern Expert. Performed By: #### 2 531261, 37387422, 7087714, 7523909 ####[address] [place] [address] Lymphocytes/Leukocyt es Auto (Bld) [Pure # fraction] 0.8 E9/L Low 1.0-4.0 [facility] Comment on above: Order Comment: Order Added by Discern Expert. Performed By: #### 2 716689, 08902647, 5642971, 1593753 ####[address] [address] Monocytes/100 WBC (Bld) 7.6 % Normal 4.0-14.0 [facility] Comment on above: Order Comment: Order Added by Discern Expert. Performed By: #### 2 578200, 75846829, 5568109, 1084378 ####[address] [address] Monocytes/Leukocytes Auto (Bld) [Pure # fraction] 0.3 E9/L Normal 0.2-1.0 [facility] Comment on above: Order Comment: Order Added by Ronnie Expert. Performed By: #### 2 671272, 83720754, 5652793, 1181673 ####[address] [address] Neutrophils/100 WBC (Bld) 66.8 % Normal 36.0-75.0 [facility] Comment on above: Order Comment: Order Added by Discern Expert. Performed By: #### 2 692986, 75152333, 4138731, 6405933 ####[address] [place] [address] Neutrophils/Leukocyt es Auto (Bld) [Pure # fraction] 2.5 E9/L Normal 2.0-7.5 [facility] Comment on above: Order Comment: Order Added by Ronnie Expert. Performed By: #### 2 964247, 97438300, 5361116, 0000736 ####[address] [address] CBC w/ Auto Diffon 3 Erythrocyte distribution width (RBC) [Ratio] 14.1 % Normal 10.9-14.2 [facility] Comment on above: Performed By: #### 2 521224, 61972561, 6211087, 7520234 ####[address] [place] [address] Hematocrit (Bld) [Volume fraction] 29.2 % Low 37.7-49.0 [facility] Comment on above: Performed By: #### 2 415357, 90704932, 4980628, 5251676 ####[address] [place] [address] Hemoglobin (Bld) [Mass/Vol] 9.7 g/dL Low 13.5-17.5 [facility] Comment on above: Performed By: #### 2 324559, 55756520, 6371143, 3432429 ####[address] [address] MCH (RBC) [Entitic mass] 32.2 pg Normal 27.0-34.0 [facility] Comment on above: Performed By: #### 2 609953, 92687256, 5028689, 0824204 ####[address] [address] MCHC (RBC) [Mass/Vol] 33.4 g/dL Normal 31.4-36.0 [facility] Comment on above: Performed By: #### 2 872326, 60243638, 1676421, 3086307 ####[address] [place] [address] MCV (RBC) [Entitic vol] 96.3 fL Normal 80.0-100.0 [facility] Comment on above: Performed By: #### 2 230057, 25970632, 0816177, 8357099 ####[address] [place] [address] Platelet mean volume (Bld) [Entitic vol] 9.1 fL Normal 6.4-10.8 [facility] Comment on above: Performed By: #### 2 260650, 08165742, 9794871, 2553928 ####[facility] [address] [place] [address] Platelets (Bld) [#/Vol] 138.0 E9/L Low 150.0-500.0 [facility] Comment on above: Performed By: #### 2 864851, 73064307, 3245233, 7993046 ####[facility] [address] [place] [address] RBC (Bld) [#/Vol] 3.0 E12/L Low 4.3-5.9 [facility] Comment on above: Performed By: #### 2 245291, 77465893, 6645052, 0145242 ####[address] [place] [address] WBC corrected for nucl RBC Auto (Bld) [#/Vol] 3.8 E9/L Low 4.0-11.0 [facility] Comment on above: Performed By: #### 2 744148, 98916464, 0543233, 1153957 ####[facility] [address] [place] [address] Lyteson 01-22-2023 Anion gap [Moles/Vol] 15 mmol/L Normal 6-16 [facility] Comment on above: Performed By: #### 2 042931, 53228723, 8718161, 5749315 ####[facility] [address] [place] [address] Chloride [Moles/Vol] 108 mmol/L Normal 101-111 [facility] Comment on above: Performed By: #### 2 094872, 49943547, 2260328, 6002131 ####[facility] [address] [place] [address] CO2 [Moles/Vol] 24 mmol/L Normal 21-31 [facility] Comment on above: Performed By: #### 2 461372, 77810911, 6218504, 4591736 ####[facility] [address] [place] [address] Potassium [Moles/Vol] 4.8 mmol/L Normal 3.5-5.3 [facility] Comment on above: Performed By: #### 2 443345, 22154955, 7250522, 8692411 ####[facility] [address] [place] [address] Sodium [Moles/Vol] 142 mmol/L Normal 135-145 [facility] Comment on above: Performed By: #### 2 658635, 76725902, 1763416, 5552065 ####[facility] [address] [place] [address] PT & PTTon 01-22-2023 aPTT Coag (PPP) [Time] 29.6 second(s) Normal 25.1-36.5 [facility] Comment on above: Result Comment: Para meter [...] the same coagulation reagent and instrumentation as [facility]. Currently there are no coagulation studies available worldwide for children to 14 days, and no normal ranges. Heparin therapeutic range (represented by Anti-Factor Xa activity of 0.2 - 0.4 U/mL) corresponds to PTT of 56.6 - 109.0 sec. Performed By: #### 2 914877, 02122561, 1303149, 1098881 ####[facility] [address] [place] [address] INR Coag (PPP) [Relative time] 1.1 {INR} Invalid Interpretation Code [facility] Comment on above: Result Comment: INR results are specifically intended to assess patients stabilized on long-term Anticoagulation therapy suggested INR?s ?Less Intensive Anticoagulation? 2.0 ? 3.0 Conventional Range 3.0 ? 4.5 Performed By: #### 2 888800, 03570878, 4128731, 0415941 ####[facility] [address] [place] [address] PT Coag (PPP) [Time] 12.2 second(s) Normal 9.4-12.5 [facility] Comment on above: Result Comment: 15 d [...] the same coagulation reagent and instrumentation as [facility]. Currently there are no coagulation studies available worldwide for children to 14 days, and no normal ranges. Performed By: #### 2 238531, 73249564, 3603857, 3061261 ####[facility] [address] [place] [address] Coding Summaryon 01-01-2023 Coding Summary HTMLBase 64 FpyzoitwHEa6bMs+PGhlY WQ+RS6ZXDAvG60raHOuwM 0eK2JOYDaEIkloSVQVRHw KHxObxaZqUL6zpBAsACCn IC8+GA7lZGZeNzloxANnc 7X6sBS6G88mml9jNTjzvW U1BCZjPuUdplklu7nwtWf 6IDcuNmluOyBt WBExwV57LRO6aW45Oq35t ZRjpBUmi4wxtMg6LjCfTX BpKZI2kJysWGicr8NsRLQ wI39hgNIlj5B2 GEObbAmktYPkGcZgwPN2o U7rVNezuqzah3vqbahgYu a8uw65iLUir3Y1tLZ1H4V kwpH9QVRtmTVc YphdyBRHjI6hftirj8kti ikjVbBbOJSvAId4ZLs6DH InkUizXcQlPG15ZFU9REI wfbKpT0XnAGWd jStaOyI8z4P6Bd6CE9ULJ xpwI1HRWTTRVYkgeWX+PC 48lv56Y9KySqywHyo7EKY xVRN2fFD3lM3l YBOyXTxyk3D9bIS4K0Kto aErxc5kb5ugSHWmGTnfZ4 8ssCPax0B5XYGwiGV5VMY dbPscYhUrbH73 Oyc+VDUqyNrql3ZfRisro 2tkz9qtdLw5VsozAOSkld SibGqwJVN9f0LiTm8hVBM ptUF1vKE2eP7j HbAgPxK6PBqxV605LxSls XOzQcxsD74xZ2XtkTW+PH RnOpk2INFbrAgiXE4dU3C hZGRpbmctbGVm bEtdKG1mQZJajsxkQZTxp K5bVUZeA5p9AtHlQyR9AH siT9XaXBWycwksEt11vS2 sDmVsQlO9EInm B0JacaJ3UQWgqSQlMFwoQ WO4T46tr4E7LFBhNOBeNV W9uPJ8tR7kxUezaazixWM mdDsgdmVydGlj MWrjUDfbA889KQZaxCscI kNvZGluZyBEYXRlOiAgMD YvMDYvMjAyMzwvdGQ+PHR jPYH7jTueAACj oWUiMRxmCt2fgRhooFinQ Y1wHSTtrmebMTAofJ1fSJ LigCMmnMncAA0xHPWeveq tj709StDhNKC1 ANQptIHvJ1GmlA5jScVfQ KJtFHBhC0JsaSBxJFjnS9 25RGbdLaU0KVAyygYlJ6O sLWFsaWduOiB0 i0E6Qn6Vp6MnjjpcI1Lyj VPiObOhDovlLAq7J6JfEy wvdHI+BU34TZHbAL65SLx 3CRG5eIrhYDnx ZWGeQ4RqjO9rSeXlUIEkG GRkOyc+PHRhYmxlIHdpZH RoPScxMDAlJyBzdHlsZT0 uLn5fJDQjBESj hSlfnUUlAnPmn0uuBLQjZ BbjTO9maBrnT6YfsSQ4DP Ykp8h5Gt76I23yS0FueMU +ZZBhnYW0jMG4 nQ6iEzRfXuY8LAruX810X qYrxNSfNtvnm5whb1omtS q8QeD2KJVdmdXxvOquSAO 9b6ReXx26C28q IHdpZHRoPSIxNSUiIHZhb Yavxr9hrB9nNv4+PGNvbC U0dIR7iU8yPqTmAfN7GVe zT939HeWktFVb Iuwsz8mka1jhoGq8UiNgL RKvarUkiGhjDOP0v3MfKr 83Y7OvaRjhu5IkBnt7my0 2pRXjj1H7dIG4 V8FjWUOwcixkqLQaiQpsX W7qWLGfuwtdBDJluZ3kSX VkF4b3CeCiUuT4JLueP0I uxxU5WVEdsSSr WFNklZCNhU0gbyeqg9iyc pawOhNtUNReIDi7WKs0HL KgaYlrSwMnTFN4QyM1RQI 8fGQnlM5rhPwy smdhtZ7zLdq+TFI7oYKzi AXFUX0iBczjzPG+PHRkIH S3vRssXHzzOGUkxV2jAQD aN5n0MsVcNkY7 ODyuU9SodwW8DUPngNHnX RIdgGPIyW2xrumxk7whvr nlNuIvMZEfFMj6GQx5CVQ saWduOiBsZWZ0 ScQ9QRX0uWXnuS4mjKcfl uybdZ4hQeo+QmlydGggRG U3VXy5W6ZmArm0IZMgsQc rNU0hjGZeLHso Xa3myYhihNhpAE2vDSIob rxzv823VpIaq1esHZNwvH TbAZmjLMT6H33tk6R9QRX hVCYqMHI5xJP8 gE1ibSslhvelfDLjoErna jSsaFllOLfaBVtmW890TG TszTarIsWxDIx0O0RoUdt 1LBOmcRsbTV7f rFEtIHqoKn1azNwpxAbsP N9fFSOfppjzg572ZwHpj1 etGDJqyYKaNVgpAQD0D00 qq3Q7WYWgBQXz BMX7lAC0kR3wuCkvzvtcy GVmdDsgdmVydGljYWwtYW bcZ143QPDxoCkbFiIboJs 5D2KjMrd5ISZg hPyrGE2vhVBePKfpPt9yy NyooBroXA0hJSZkwwqah2 30QvMer5wqKAKdiEDbEHh sYYG4J72qo3Q5 FTLuMTTmLQE2qQQ4oF5ge GlnbjogbGVmdDsgdmVydG edMKcfOIsfZ079JNJuePz nPlBhdGllbnQg NVveJRq7Y7UaJdfiyEQ+P L48SAHgIA37iJSlbJBcb0 xruHp1MnGxDLMbGTJ8yTj nNGvrr6XjCRZc Z44meOSve1P3HTUnsPhgh KMbKiCthBU1oZ1nCRbdjb lyc3fgzonbZgfba6fqjy5 8qY36W14hQBsl ZHRoPSIzMCUiIHZhbGlnb x8jwP2pKk4+BAPofEV0jL Q2cQ9jQLHtWhZ4RQmgP13 9InRvcCIvPjxj h5etx4blmHj7ZkS4KXGqg vSdeLlrLRV8h1ZjVg79D1 9sIHdpZHRoPSIyMCUiIHZ qfKhvrg0zoM0c Ii8+MPGrqLS3oXU3yB9fZ lTsQzH0ZCpeP941YpOzpV LpQlqmE03lW5XswQQ+PHR qQeq6STVnjQjs JM9gwGOdMYqkEf6dUVF6J nBhSsLnLChhN1AmAFOqxb zltmnkkLS5MDQaDINvkH4 9Lz6ylMyoYZCs aEUGdU8bfnwmn7dcswjtM rIhOUJuVLa9IRu5UUOgpD xcXmPnDNV7FvH0VNR0tVJ mzA7yeVajhxbq dO4mT4RsMESvamjhDq04u M7jWwWrVcV3RYbxZph+TU oNAPADBAUVMZFGZV8AJJl IE31KRE29PU89 vPSjf4G7lSA0V1KpWDFxx faouicmpOM3CXVoGUGnaI 42bSGaHQybAp0kk2L0c65 7NZWlJLZsxG47 Oh6qrSuoJFXhqUIDjW2mr ualr5ppxrceEfViOYOdDC d5EBs1RAZamTnhZpMqZTH 1KwZ4WKV1zCJl qF9qwPcjyolpcJ3vJfl+M DMvMDQvMTkzNTwvdGQ+PH ZvFRI3cRqxFMkbRFZgaU4 xKKViJ6x9XkWi ThT1DIhdU1NmLPNfkrgjI d68vD7zIoFdHpZ5YCrxE5 QhamF6YAImpYOqDAmrNLW 9O52he7L3FPQe DOUxTSC6tWG9tR9ykZwzj jogbGVmdDsgdmVydGljYW ilEGayX534IAYorUecMzr 3RKmtYNEfAI41 YM79wERmb7A6hMF8X7EmX KChkzugfrjfqSH9UCRfHB BxaC76sCLaAYpqOt3qs7M 4o362GEKkKFRu iC55Cl4nuUfsOBIruWEYu E3huvgex2rcolcjTdBiRW HeKXe7EQb8EQBoeTgxTjY tBTP2TyQ5YSW6 oBWfzZ9lvPnokzzqpI2xY yc+TUFMRTwvdGQ+PHRkIH U6mSeqOTbuPDXghI9rKJX dH9c5CeAhQyQ2 ABxiD6FgAXEfvhfcHb66e A3fNhQbOfQ6DMamN2Gdnm J6JBDqaVSeIKvnCQP2T20 ol9N4XLOaJLGb BII7fYJ5uB1kpYsfkhple GVmdDsgdmVydGljYWwtYW gnH230UBPrcPqsEeRccZK JfZMjASL3HR65 KP20H8UzRxlyqMAhrNZ+P HRhYmxlIHdpZHRoPScxMD TbMrIgsDfzDN8pLp9uZIZ yLWNvbGxhcHNl ZcAml3fdYBUcXZioNV2fg GuxO4MhyCA0TYZur6c7Bz 45U69kX7SpfLI+PGNvbCB 3bBO3qK1hPgNt GsZ7UThcU749HiNuiLCmK avse3nar0kdnNf5LgTyKH MhsoNhhYacYRM1e6YtOx0 8O90uTTshEAVz BDJsWBRsJSZknVxvsi1zi G9wIi8+CIHrlST9eJA1kO 9nOuQsHgP9WIxuM735HkR zbBNmOkluZ38p C3YbdRW+AUKuJhy2TCDwp WvpCM6tyRLiISvgAk7nOC R2IlOaJxTrEZfiF2YyRIA pbmctcmlnaHQ6 PECtOYSjvF25Xt5djLzdA u5cVPFrWPJ8VBAjvYYwW8 IugE5jMvKqFBAuFSFwG0M yzXYiSOweV469 VUnoLdZ8XOLofhJuH6AwW LAloCuvTtS8e4U6Yt2UrO yyqMYdUW9mOzRlRFm4O5O jMiu5QAKxnOhn HW5msTSbDHpdQb3hbKrvr OctSI5ePYVifwmav856As Krq2yhGCEjzCAuIOloKQL 4T28gi6S7GINz TSRyHUW6uVS6gO3nuMueu jogbGVmdDsgdmVydGljYW jvHNggR801YHExsHsqGfH TJdw2P3GzMkz4 BIMyiHplFU5cuYPvQGfwU y2ueKyqyQveYF2iCSOoad qbl404OyKin5fqNBNqxXH yHWwkHHR2I01c g7Y0EHInHZCcDZZ1fRT4m R1beMzulrglcZNjpKwcob EwkMdzIEfoMLavU901WQE hsWevZb7HObu6 V0BmBfx4ZVJjkSriKZ0pq XFcZLubUl7wdDjffHkeYZ 9dGFDciuzgo802FcYfl1p kIDEwcHQgVGlt GDU6G00ex8U7PGPsVVMpJ AT3tER9jE2tbZlbgtokrI VmdDsgdmVydGljYWwtYWx xE400VFWsiUqn PlBheWVyOjwvdGQ+PC90c j16Z2LwTzqkNas8KYJuMZ Y5yIX8sK9rBCLjLJswt6D 8zIE0C0CzauWm ci1 (more content not included)... [facility] Consent Formson 01-01-2023 Consent Forms [id number] [email or web address] [facility] Inpatient Patient Summaryon 12-31-2022 Inpatient Patient Summary [facility] [address] [place] [address] Patient Discharge Instructions Name: RY LERNER : 1935 Patient Address: [address] [place] [address] Primary Care Provider: Name: John Nieves MD After you are discharged if you find you have any questions, please, call [phone] ext [phone] to speak to a nurse. Discharge Diagnosis: Carpal tunnel syndrome, right Prescription Information: If you have been given a prescription for narcotics, seek immediate medical attention if you have any difficulty breathing or any sudden status changes such as confusion and sleepiness. If you or anyone you know is experiencing suicidal thoughts, mental health, alcohol and/or drug addiction problems; contact the [facility] 18/02 Crisis Hotline -Text 4HANB to 656234. If you received any narcotics, sedation, or [...] business decisions or sign any legal documents [facility] would like to thank you for allowing us to assist you with your healthcare needs. The following includes patient education materials and information regarding your injury/illness. RY LERNER has been given the following list of follow-up instructions, prescriptions, and patient education materials: Follow-up Instructions With: Address: When: MARJ PEREZ [address] [place] [address], [address] [place] [address] Business (1) 01/09/2023 11:00 AM Medications During [...] 1 cap(s) Oral every day. Lindsey's wort (Broadview's wort oral tablet) 1 tab(s) Oral 2 [...] release capsule) 1 cap(s) Oral every day. Broadview's wort (Lindsey's wort oral tablet) 1 tab(s) [...] 3. DO NOT lift heavy objects or palm gatherer forcefully with your hand 4. Change your [...] or concerns, please call the office at [phone] 7. Follow up as scheduled Viruses or Bacteria What?s got you sick? Antibiotics only treat bacterial infections. Viral illnesses cannot be treated with antibiotics. When an antibiotic is not prescribed, ask your healthcare professional for tips on how to relieve symptoms and feel better. Usual Cause Illness Viruses Bacteria Antibiotic Neede (more content not included)... Normal [facility] Lab Reportson 12-31-2022 Lab Reports [id number]#1 .00CD:127 Normal [facility] MAGR Intraoperative Recordon 12-31-2022 MAGR Intraoperative Record MAGR Intra-Op Record Summary Primary Physician: Ward Martinez DO Finalized Date/Time: 12/31/22 11:56:55 Pt. Name: RY LERNER/Sex: 1935 MALE Med Rec #: [id number] Physician: Ward Martinez DO Financial #: [id number] Pt. Type: D Room/Bed: / Admit/Disch: 12/31/22 [...] RN, DO Role Performed Surgeon - Primary Jointer Submarine Cable Jointer Submarine Cable Time In 12/31/22 09:15:00 12/31/22 09:15:00 12/31/22 09:15:00 Time Out 12/31/22 09:37:00 12/31/22 09:46:00 12/31/22 09:46:00 Procedure Carpal Tunnel Carpal Tunnel Carpal Tunnel Release(Right) Release(Right) Release(Right) Last Modified By: [place] PERSAUD, Chelita Borjas RN, Chelita Mc RN 12/31/22 09:49:26 12/31/22 09:49:26 12/31/22 09:49:26 Entry 4 Entry 5 Case Attendee Lavern Vasques Kelly OCCUPATIONAL ANALYST OCCUPATIONAL ANALYST Role Performed Fluoroscope Operator Scrub Personnel Time In 12/31/22 09:15:00 12/31/22 [...] By Chelita Borjas RN Scrub 10% Povidone-Iodine [place] Prep Area (Im.270) Elbow and forearm, Prep Area Details Right Hand, Wrist Skin Prep Agent Dry Yes Without Pooling Hair Removal Syntegrity Hair Removal Methods No hair removal performed Outcome Met (O.100) Yes Last Modified By: Chelita Borjas RN 12/31/22 11:55:12 Pos (more content not included)... [facility] MAGR Preoperative Recordon 0 12-31-2022 MAGR Preoperative Record MAGR Pre-Op Record Summary Primary Physician: Ward Martinez DO Finalized Date/Time: 12/31/22 09:13:14 Pt. Name: RY LERNER PERRY More.O.B./Sex: 1935 MALE Med Rec #: [id number] Physician: Ward Martinez DO Financial #: [id number] Pt. Type: D Room/Bed: / Admit/Disch: 12/31/22 [...] Signed By: Vicky Ponce RN 12/31/22 09:13 [facility] Patient Handouton 12-31-[address] 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 Keep your hand elevated above your elbow for the first 24 hours after surgery 2. Wiggle your fingers frequently while awake 3. DO NOT lift heavy objects or palm gatherer forcefully with your hand 4. Change your [...] or concerns, please call the office at [phone] 7. Follow up as scheduled Normal [facility] Physician Referralon 023 Physician Referral [id number] 1.00CD:127 Normal [facility] Living Will/POAon 12-26-2022 Living Will/POA [id number] .00CD:127 Normal [facility] CBC AUTO DIFFon 12-25-2022 BASO # 0.0 103/ul Normal 0.0-0.1 [facility] Comment on above: Performed By: #### C BC #### [facility] [address] [place] [address] Dr. Rashmi Nolan Basophils/100 WBC (Bld) 0.6 % Normal 0.2-2.0 [facility] Comment on above: Performed By: #### C BC #### [facility] [address] [place] [address] Dr. Rashmi Nolan EO # 0.2 103/ul Normal 0.0-0.7 [facility] Comment on above: Performed By: #### C BC #### [facility] [address] [place] [address] Dr. Rashmi Nolan Eosinophils/100 WBC (Bld) 6.9 % Normal 0.9-7.0 [facility] Comment on above: Performed By: #### C BC #### [facility] [address] [place] [address] Dr. Rashmi Nolan Erythrocyte distribution width (RBC) [Ratio] 14.0 % Normal 11.0-15.0 [facility] Comment on above: Performed By: #### C BC #### [facility] [address] [place] [address] Dr. Rashmi Nolan Hematocrit (Bld) [Volume fraction] 29.8 % Critically low 42.0-54.0 [facility] Comment on above: Performed By: #### C BC #### [facility] [address] [place] [address] Dr. Rashmi Nolan Hemoglobin (Bld) [Mass/Vol] 9.8 g/dL Critically low 14.0-18.0 [facility] Comment on above: Performed By: #### C BC #### [facility] [address] [place] [address] Dr. Rashmi Nolan IG # 0.02 10e3/ul Normal 0.00-0.03 [facility] Comment on above: Performed By: #### C BC #### [facility] [address] [place] [address] Dr. Rashmi Nolan IG % 0.6 % Critically high 0.0-0.5 [facility] Comment on above: Performed By: #### C BC #### [facility] [address] [place] [address] Dr. Rashmi Nolan LYMPH # 0.8 103/ul Critically low 1.2-3.8 [facility] Comment on above: Performed By: #### C BC #### [facility] [address] [place] [address] Dr. Rashmi Nolan Lymphocytes/100 WBC (Bld) 25.1 % Normal 20.5-60.0 [facility] Comment on above: Performed By: #### C BC #### [facility] [address] [place] [address] Dr. Rashmi Nolan MANUAL DIFF REQ NO Normal [facility] Comment on above: Performed By: #### C BC #### [facility] [address] [place] [address] Dr. Rashmi Nolan MCH (RBC) [Entitic mass] 33.0 pg Normal 25.9-34.0 [facility] Comment on above: Performed By: #### C BC #### [facility] [address] [place] [address] Dr. Rashmi Nolan MCHC (RBC) [Mass/Vol] 32.9 g/dL Normal 29.9-35.2 [facility] Comment on above: Performed By: #### C BC #### [facility] [address] [place] [address] Dr. Rashmi Nolan MCV (RBC) [Entitic vol] 100.3 fL Critically high 80.0-94.0 [facility] Comment on above: Performed By: #### C BC #### [facility] [address] [address] [address] Rashmi Nolan MONO # 0.3 103/ul Normal 0.3-0.8 [facility] Comment on above: Performed By: #### C BC #### [facility] [address] [address] [address] Rashmi Nolan Monocytes/100 WBC (Bld) 9.6 % Normal 1.7-12.0 [facility] Comment on above: Performed By: #### C BC #### [facility] [address] [place] [address] Dr. Rashmi Nolan NEUT # 1.9 103/ul Normal 1.4-6.5 [facility] Comment on above: Performed By: #### C BC #### [facility] [address] [place] [address] Dr. Rashmi Nolan Neutrophils/100 WBC (Bld) 57.2 % Normal 43.0-75.0 [facility] Comment on above: Performed By: #### C BC #### [facility] [address] [place] [address] Dr. Rashmi Nolan Platelet mean volume (Bld) [Entitic vol] 10.5 fL Normal 9.5-13.5 [facility] Comment on above: Performed By: #### C BC #### [facility] [address] [place] [address] Dr. Rashmi Nolan PLT 129 103/ul Critically low 150-450 [facility] Comment on above: Performed By: #### C BC #### [facility] [address] [place], [place] [id number] Dr. Rashmi Nolan RBC 2.97 106/ul Critically low 4.70-6.10 [facility] Comment on above: Performed By: #### C BC #### [facility] [address] [place] [address] Dr. Rashmi Nolan WBC 3.3 103/ul Critically low 4.0-11.0 [facility] Comment on above: Performed By: #### C BC #### [facility] [address] [place] [address] Dr. Rashmi Nolan PROTIMEon 12-25-2022 INR Coag (PPP) [Relative time] 1.03 {INR} Normal [facility] Comment on above: Performed By: #### B MP #### [facility] [address] [place] [address] Dr. Rashmi Nolan INR GUIDELINES SEE BELOW Normal [facility] Comment on above: Result Comment: ENOC RED INR: 2.0 - 3.0 CONDITIONS NOT LISTED BELOW 2.5 - 3.5 FOR PROSTHETIC HEART VALVE REPLACEMENT 2.5 - 3.5 RECURRENT THROMBOSIS Performed By: #### B MP #### [facility] [address] [place] [address] Dr. Rashmi Nolan PT Coag (PPP) [Time] 10.9 s Normal 9.0-11.6 [facility] Comment on above: Performed By: #### B MP #### [facility] [address] [place] [address] Dr. Rashmi Nolan PTTon 12-25-2022 aPTT Coag (Bld) [Time] 25.6 s Normal 22.3-36.2 [facility] Comment on above: Performed By: #### C BC #### [facility] [address] [place] [address] Dr. Rashmi Nolan Ambulatory Visit Summaryon 0 [...] numbers. This can be done either in [place] ([place] or metric measurements. Note that charts and online BMI calculators are available to help you find your BMI quickly and easily without having to do these calculations yourself. To calculate your BMI in [place] measurements: 1. Measure your weight in [...] (more content not included)... Normal [facility] Family Medicine Office/Clini c Noteon 12-21-2022 Family Medicine Office/Clinic Note Chief Complaint Hospital stay follow up HPI Staff Presents for hospital follow up [facility] 12/11-12/14 bleeding ulcer/bloody stools Had Upper and lower scope done. found diverticulosis and bleeding ulcer. Questions/concerns: eczema, why needs to stay on Lasix, why taken off warfarin when to start back up. History of Present Illness pt presents today fro follow up for admission to [facility] for GI bleed Review of [...] today for follow up from admission to [facility] for GI bleed. he received 2 units of blood. and had egd and colonsocopy that show a gastic ulcer and diverticulosis. he was cleared by GI yesterday. he remains off of his warfrin for now. Dr. Silva spoke to Dr. Black ([place]'s metallurgical specialist) and he was ok with keeping [...] 06/02/2013 Recorded influenza, whole 05/29/2005 Recorded Normal [facility] Comment on above: Result Comment: Elec tronically [...] numbers. This can be done either in [place] ([place] or metric measurements. Note that charts and online BMI calculators are available to help you find your BMI quickly and easily without having to do these calculations yourself. To calculate your BMI in [place] measurements: 1. Measure your weight in [...] for Disease Control and Prevention: www.cdc.gov ? [place] Heart [employer]: www.heart.org ? National Heart, Lung, and Blood [place]: www.nhlbi.nih.gov Summary ? Body mass index (BMI) is a number that is calculated from a person's weight and height. ? BMI may help estimate how much of a person's weight is composed of fat. BMI can help identify those who may be at higher risk for certain medical problems. ? BMI can be measured using [place] measurements or metric measurements. ? BMI charts are used to identify whether you are underweight, normal weight, overweight, or obese. This information is not intended to replace advice given to you by your health care provider. Make sure you discuss any questions you have with your health care provider. Document Revised: 04/06/2020 Document Reviewed: 02/12/2020 [employer] Patient Education ? 2022 [employer]. [facility] Coding Summaryon 12-19-2022 Coding Summary HTMLBase 64 SkabwdydOSh1kLl+PGhlY WQ+FW8GWHIdF97aqCQhuX 2pK6EGKPpOBanvLZDNHBd ZRhWwfrBgCH0rbZVcUVWu IC8+OH3eJXEyGsmzrEDzj 5U7aOL9S07vct3nLYqdpV M0SGDwRdCcczxrz2ofhJq 6IDcuNmluOyBt LIVdqF37GSK0dN19Gp17c MGzyEVof3awzOo1RnQjHH XiMMK4cRamYMaqf6QoHBJ oF43txPOrc2N2 UYBioUkcuBAtLcCxqYI8q L1uGMjbjptbj6nvkwbgQu k3yt47pXOzy7X5lOK4K7D ggyI3KWVdoOCl RbymxLLJjX6dkefro0wgf pjgJpIvPRZsWSv9KXv0YD DysKnbFwDgCP78ZUE1ROZ musZoN9VzYBPq vTboZiN5i0J9Dr5KP1PWQ bdsV9FHULMYKBzszCN+PC 17wk12Z1WjNyrqDuv5ZAU uJVK1jSO0pF4h FYUwEAfjc8R3mUK7A8Hsg pByox7hb2huXBAhAWweQ2 1fdXHyn2G6XFKniEC4OVW wdBlaQoDtjH05 Oyc+THAxdTycb4UfDgjxf 1qex2crxZz0XfoyUGPznu KunNsuUOU0j6HmKp1uWVL krHP2lAR4nF6g SmMlJpF9VWsjB890QdHni ZTgJkbaC34pF5VtbEL+PH IkKml4QKObnDvfLK4aM7E hZGRpbmctbGVm vDajXP9iXYNtipwkJOQtp I0tDWUpM7z8ArQgUxV7GZ fyJ3TuZKKwjbzqOe26vZ6 zOiWqLaC7VAub P8MzigN9BONwbDExTVztW LV9F75ei3Z6TNYsYWEbBY M1eRL4yL6jmEbjsowurTJ mdDsgdmVydGlj TMuhPFeuP377JFXbcCtuV kNvZGluZyBEYXRlOiAgMD UvMjQvMjAyMzwvdGQ+PHR pTMF6aFusQVDt nAKnZBgmTd8bjIcvaKfkX J9sULNgqykhKVCinC2vMB FifHRqdQooUZ3pEFGehji ue123YhVsQLU7 SEMqrNZgX3HhxP0xBlOnZ RPiNMVtO7CpvGSrPPetP8 97VXidWeG9OGXkxuWlR5F sLWFsaWduOiB0 h2H1Tx8Tu1OxtngjK9Zgs KAlZeTyQpyuBPk5D8NwYl wvdHI+LQ07PLQtIH49XLo 6SSJ5cLskMJsk SZUpP0MagR1uJbRsYVOjW GRkOyc+PHRhYmxlIHdpZH RoPScxMDAlJyBzdHlsZT0 sSg4vILSrTXPe wLypnLPgBoAth5qaCFPdQ CdoMP3diZraX1BzeYR3VX Lkg2g0Pq92Z68xL6QimXZ +BHUyaIG5jAA4 pA2tLcWnSwI1VXeuB887B aFjjGGxZgepm0xaq7zslT i9FfI0SJZltnChzXezHWF 0p5PwNd41D56z IHdpZHRoPSIxNSUiIHZhb Smbgk3eiF4wMg8+PGNvbC L9wEO0iL5pVtLnKfB4MGe bM562LtKqkVPl Lkcnd4xkt8cgjRt6QeXmE OSeicEowFrzDIL1s7WqKx 31J3VhpCvhw6TtNpr1di1 6bPBis8M2gON8 Q7KdTTGncuasfCZjkRfsR Z9mHOVqpwupOVPhkT8iDP ZqO6k9NrQmWvT6IXtlG1A bahQ6DYOyhAXo EWWfuEYHbW0yfenlx5qwo xfmJnZlMNOfFOc1SCf4BU UkoPdaMaHqNPA3RtC2OIH 1xEHirH9chKew jasewD5tStd+NDL5tHRwb KLJDB8jDlszsTB+PHRkIH T2vAlkEQqlJISzbW8zQOI nA1h0YmQdWuJ6 YKbwT3HddhP8TLDyjDClQ IXdzNQGvL1qdmwbb6aynk aaHzFtFTIrDJw1MOz0QZU saWduOiBsZWZ0 TyY2VCO9zZBxkH4lqIowl wxvhG2cLlq+QmlydGggRG I3OBl0E1XySky9TFXzyQl oGN4ijHXeILte Pi7fqKbojNvbLX1rOJJja akal826OoRdn7cjECUgoG ElLZywIXC7T00ba9S9VIM fULNsPMP5kJP2 rB3rsLabqpayjCVkyPfrm uKlmDyaEHluTHgnO013GT QgtYmgEiNiGXc2U8JxTff 4DQOxkYqvTW6n yTXqDEwcDy1duDgqnPqfY Y5cYINcbjuem403EnDtu7 otJQDutIJkAEduFYL9L48 yn7M8ZPUwDIKr GTL2eIN6aN9duZaqbrgrj GVmdDsgdmVydGljYWwtYW tsX865CBLdmUnxUnJqpQa 9N2QgAxl0VTHc rOceFK4lxRKmFCxdHj3ub KjhrHlrSR3pJGEijpmjq0 95YkFfg4ypNRAyyUZgSIy cJGA6H90jl3U7 ZUHlDJSlOYD8kNB2rC8vq GlnbjogbGVmdDsgdmVydG orHHxzGJqaA733GGZrqUl nPlBhdGllbnQg TFrrEDp4B7RoUuwukYY+P R75WFFoZJ94oARukFXok3 zrbBm7OjOiGDLjXPX1wLv hFBtag0GlKIFq X88tsTTou9I6KOElhLpnr WYxGyZqyZK0dH8cGEoqfo tqq1krdjymKrraa6wubh7 0qJ94S17xVZkp ZHRoPSIzMCUiIHZhbGlnb u2dcY0aRo0+LWLmnRD1jO M4mR1zIABrXjH9VIahD94 9InRvcCIvPjxj h8mei2iffFk5SoY8THVpy dZtjAtgMNN3o2HvKn73O1 9sIHdpZHRoPSIyMCUiIHZ qqWiulp0vwH1c Ii8+HFRfjNZ8jCE3yS9aK bUeHiB6TPrkR446PqXshK CzIwxuY29fK6BtgKZ+PHR mCpv2ZHWdjNfb JP2rgYXmCIwxJm7hUML3L hNmGlRpPZekG7MzMGRkfc nmauemyQF8OFSrSRFrlP3 1Pm3jwVmuGCSe eSTGiA2ouemyu8khljwrP tVgXVMzTPi4CXh3MIHfiJ ttYoHfWUV5UeI2UPP6eNI xoD1suMiqozyw fD7jL0EtYDCpupjgTn02n A3tRpDmAnL1MQphCxd+TU uQPYYRKUFUGJMBHW1DGSo UC54QNX63QX44 vFEfd5M6bTN5Q0VxCWXts wglnrrnfZY9ZEAnLLValU 73aXKdLApiQk1jt5I6m55 0XPYfFDXtuM84 Sz3plWqeTNArkJFNhS8cl rtim7zlvqoqWyFaVDXfPB f5NCu1ZSCxdQcyTcAxTVM 9KlM1QUD9lTNu vO2abFttjkpvcV4hIqq+M DMvMDQvMTkzNTwvdGQ+PH CuXPY6gOzsTQirRBJvoU6 rYSPmD9e1ZoDp HhR6ZTyeQ5MmQWJywoduL g99tL1kWeGbZoX6UWjwE2 NvviB5YKXiuRDxUSygWXP 8Y27wb0P0BYZz EBMbUDG2xOG1mQ6leSigx jogbGVmdDsgdmVydGljYW qqAAoqW988TRRphGovIbz 9FSwkEAEfRB80 HN30xKHjk2Z7hSC4D3TwF CXokdlqsibcoGN7MZQuDU DksI52tKCoAGflXq1zp2H 0e260ZMAqMOHv jP09Po8gcAvdSRRmtMAIw K1lurgsd5ymlfxnVaBnXH UvBDx2YJt4YHCrkHlrFbF bNYI1HzE0WGG8 aFTdpI1tfAddgfobxA0cY yc+TUFMRTwvdGQ+PHRkIH Q6pZdhZZicNCWooE4xEJA kU5y0LvBiHsP3 LVppB0RyOIJxpocrOz35a F7xPvOrRrQ9PVmsC4Wlzg K8DXSeqBEvITdmINB0W48 pw0W1GAFqFTDx BOQ1qZD8bA6hxAsaopuqm GVmdDsgdmVydGljYWwtYW dgY963PJTfsAoiCuPuwVA NeFYdNRG5AZ55 GD58E6JgCwiuiQByuJA+P HRhYmxlIHdpZHRoPScxMD JyDqTogPidTE6xXt0iQKF yLWNvbGxhcHNl QqDte2ftRYZeXYtqYR6ny QxuA9ZzbGY0RXMnx7a7Lw 47E74xR6WdlQM+PGNvbCB 4jFB3aJ8cTuVl LuC8JHseE877ZiVwrXMnJ ldpn7ccp7vdeLn5UgZyWA LmicLioAxpTSC7e4AkVs3 0I15wGOmzJSZa GLChYELuCYAttHoxft2fo G9wIi8+BLPylPJ7qCH7lN 7lZaMeJgX5DKrhP800WaD tkSSlXdtjZ28p O9PsrQM+VDBnZwz4FRGrl AsjBC4mrCYeWAasOf7wXA Z4SnLjAgYfFLghT2JqSVM pbmctcmlnaHQ6 QTRxDOArhA98Xo8ckAntH r7yDKRoRAA4GOLvtDAjX7 StrE4zZwCkKJXwMHXsU7B jyEPiOKtyM496 GKasJnT8GQZoilTlZ7IcA AVsyJddPhL8t6O3Gs5CfB egiCOnZX5cIpTgMBm8R9R cZtd0ECObrGeu JK3fyJXcXIubPa2csDmxf OloRP4kYBJlptzga409Ml Dux6wvXVGgwEVjEOqiQUF 4N46ix2Z3GQOb VRBmMNY7sEZ4gP3pzOxks jogbGVmdDsgdmVydGljYW tuGAuxC059YBFzhMicTeE BBzc1V4FtOmz8 RNBdzNxbLJ5jvRLtUCzcK t3kcBklcDepTT1aRGMkiv vsm763LdXpc3gtDGJjsJY cLRuyVRV9W29v m0I1OMYhANJaKYF0fDL2i I8leAmmtsocnUQbpTrsnl ZebEmtKCzhSSmjJ852LBC nfJlqJl5DGah8 W1SzRxj7IFClnKbhNK1gz ZTmSOepTc0pmHbjyEhlVK 8xWNOgefeme016GrRxi4q kIDEwcHQgVGlt GQZ7Z96op0F1DMChQYKqJ VV5rWS1aU1xeXrlcjobvU VmdDsgdmVydGljYWwtYWx eH909VURjaKvb PlBheWVyOjwvdGQ+PC90c n13R1LpZmtbHbc8VFTeXL N9wXH6zY0vGLIeQUbvs3J 4eDY0K6RuhnOk ci1 (more content not included)... [facility] [place] Population Health Case Information Case Priority: None Programs: -- Referral Source: Production Packager Referral Reason: Care coordination Case Type: Transition [...] any questions or concerns. Patient currently at [facility] [place] unable to provide patient with contact number, but did advise patient to call office and ask to speak with direct care specialist if he had any questions or concerns. Communication Events Date: December 17, 2022 Method: Phone call Type: Outbound Duration (min): 5 Outcome: Case discussion Contact Type: Patient Contact Name: RY LERNER Notes: TCM #1-see summary note. Created By: Ezequiel PERSAUD, Sandra Calix [facility] CBC AUTO DIFFon 12-14-2022 BASO # 0.0 103/ul Normal 0.0-0.1 [facility] Comment on above: Performed By: #### C BC #### [facility] [address] [address] [address] Rashmi Nolan Basophils/100 WBC (Bld) 0.6 % Normal 0.2-2.0 [facility] Comment on above: Performed By: #### C BC #### [facility] [address] [address] [address] Rashmi Nolan EO # 0.4 103/ul Normal 0.0-0.7 [facility] Comment on above: Performed By: #### C BC #### [facility] [address] [address] [address] Rashmi Nolan Eosinophils/100 WBC (Bld) 11.9 % Critically high 0.9-7.0 [facility] Comment on above: Performed By: #### C BC #### [facility] [address] [place] [address] Dr. Rashmi Nolan Erythrocyte distribution width (RBC) [Ratio] 15.2 % Critically high 11.0-15.0 [facility] Comment on above: Performed By: #### C BC #### [facility] [address] [place] [address] Dr. Rashmi Nolan Hematocrit (Bld) [Volume fraction] 26.3 % Critically low 42.0-54.0 [facility] Comment on above: Performed By: #### C BC #### [facility] [address] [place] [address] Dr. Rashmi Nolan Hemoglobin (Bld) [Mass/Vol] 8.9 g/dL Critically low 14.0-18.0 [facility] Comment on above: Performed By: #### C BC #### [facility] [address] [place] [address] Dr. Rashmi Nolan IG # 0.01 10e3/ul Normal 0.00-0.03 [facility] Comment on above: Performed By: #### C BC #### [facility] [address] [place] [address] Dr. Rashmi Nolan IG % 0.3 % Normal 0.0-0.5 [facility] Comment on above: Performed By: #### C BC #### [facility] [address] [place] [address] Dr. Rashmi Nolan LYMPH # 0.8 103/ul Critically low 1.2-3.8 [facility] Comment on above: Performed By: #### C BC #### [facility] [address] [place] [address] Dr. Rashmi Nolan Lymphocytes/100 WBC (Bld) 25.1 % Normal 20.5-60.0 [facility] Comment on above: Performed By: #### C BC #### [facility] [address] [place] [address] Dr. Rashmi Nolan MANUAL DIFF REQ NO Normal [facility] Comment on above: Performed By: #### C BC #### [facility] [address] [place] [address] Dr. Rashmi Nolan MCH (RBC) [Entitic mass] 33.0 pg Normal 25.9-34.0 [facility] Comment on above: Performed By: #### C BC #### [facility] [address] [place] [address] Dr. Rashmi Nolan MCHC (RBC) [Mass/Vol] 33.8 g/dL Normal 29.9-35.2 [facility] Comment on above: Performed By: #### C BC #### [facility] [address] [place] [address] Dr. Rashmi Nolan MCV (RBC) [Entitic vol] 97.4 fL Critically high 80.0-94.0 [facility] Comment on above: Performed By: #### C BC #### [facility] [address] [place] [address] Dr. Rashmi Nolan MONO # 0.3 103/ul Normal 0.3-0.8 [facility] Comment on above: Performed By: #### C BC #### [facility] [address] [place] [address] Dr. Rashmi Nolan Monocytes/100 WBC (Bld) 9.0 % Normal 1.7-12.0 [facility] Comment on above: Performed By: #### C BC #### [facility] [address] [place] [address] Dr. Rashmi Nolan NEUT # 1.7 103/ul Normal 1.4-6.5 [facility] Comment on above: Performed By: #### C BC #### [facility] [address] [place] [address] Dr. Rashmi Nolan Neutrophils/100 WBC (Bld) 53.1 % Normal 43.0-75.0 [facility] Comment on above: Performed By: #### C BC #### [facility] [address] [place] [address] Dr. Rashmi Nolan Platelet mean volume (Bld) [Entitic vol] 10.2 fL Normal 9.5-13.5 [facility] Comment on above: Performed By: #### C BC #### [facility] [address] [place], [place] [address] Dr. Rashmi Nolan PLT 139 103/ul Critically low 150-450 [facility] Comment on above: Performed By: #### C BC #### [facility] [address] [place], [place] [address] Dr. Rashmi Nolan RBC 2.70 106/ul Critically low 4.70-6.10 [facility] Comment on above: Performed By: #### C BC #### [facility] [address] [place], [place] [address] Dr. Rashmi Nolan WBC 3.1 103/ul Critically low 4.0-11.0 [facility] Comment on above: Performed By: #### C BC #### [facility] [address] [place] [address] [address] Rashmi Nolan MAGR Intraoperative Recordon 12-14-2022 MAGR Intraoperative Record MAGR Intra-Op Record Summary Primary Physician: Ward Martinez DO Finalized Date/Time: 12/14/22 09:30:19 Pt. Name: RY LERNER/Sex: 1935 MALE Med Rec #: [id number] Physician: Ward Martinez DO Financial #: [id number] Pt. Type: D Room/Bed: / Admit/Disch: 12/10/22 [...] Andrew DO Role Performed Surgeon - Primary [employer]inter [employer] Time In 12/10/22 15:05:00 12/10/22 14:54:00 12/10/22 14:54:00 Time Out 12/10/22 15:30:00 12/10/22 15:30:00 12/10/22 15:30:00 Procedure Carpal Tunnel Carpal Tunnel Carpal Tunnel Release(Left) Release(Left) Release(Left) Last Modified By: Maile Palmer RN, Barbara RN Long, Barbara RN 12/10/22 15:29:30 12/10/22 15:29:30 12/10/22 15:29:30 Entry 4 Entry 5 Case Attendee Macie Licea CST, CST, Brandi Role Performed Fluoroscope Operator Scrub Personnel Time In 12/10/22 14:54:00 12/10/22 [...] Release Primary Procedure Yes Primary Surgeon Ward Maritnez DO Surgeon Comment LEFT CARPAL TUNNEL Start [...] By Maile Palmer RN Scrub 10% Povidone-Iodine [place] Prep Area (Im.270) Arm lower Prep Area [...] injury Counts (more content not included)... Normal [facility] Outside Colonoscopyon 2022 Outside Colonoscopy [id number]#1 .00CD:127 Normal [facility] Outside [facility] Correspo zaida 12-14-2022 Outside Hospital Correspondence [id number] .00CD:127 Normal [facility] Outside [facility] Correspondence [id number] .00CD:127 Normal [facility] Outside [facility] Correspondence [id number]#1 .00CD:127 Normal [facility] Outside [facility] Correspondence [id number] .00CD:127 Normal [facility] Outside [facility] Correspondence . [id number]#1 .00CD:127 Normal [facility] PROF CHEM 8 (BAS METB)on Anion gap [Moles/Vol] 12.6 mmol/L Normal [facility] Comment on above: Performed By: #### B MP #### [facility] [address] [address] [address] Rashmi Nolan Calcium [Mass/Vol] 9.7 mg/dL Normal 8.5-10.1 [facility] Comment on above: Performed By: #### B MP #### [facility] [address] [address] [address] Rashmi Nolan Chloride [Moles/Vol] 108 mmol/L Critically high 98-107 [facility] Comment on above: Performed By: #### B MP #### [facility] [address] [address] [address] Rashmi Nolan CO2 [Moles/Vol] 24.5 mmol/L Normal 21.0-32.0 [facility] Comment on above: Performed By: #### B MP #### [facility] [address] [address] [address] Rashmi Nolan Creatinine [Mass/Vol] 1.68 mg/dL Critically high 0.70-1.30 [facility] Comment on above: Performed By: #### B MP #### [facility] [address] [address] [address] Rashmi Nolan EGFR-AF KAZAKH 47 mL/min/1.73m2 Critically low >=60 [facility] Comment on above: Performed By: #### B MP #### [facility] [address] [address] [address] Rashmi Nolan EGFR-NON AF KAZAKH 39 mL/min/1.73m2 Critically low >=60 [facility] Comment on above: Performed By: #### B MP #### [facility] [address] [address] [address] Rashmi Nolan Glucose [Mass/Vol] 91 mg/dL Normal 74-106 [facility] Comment on above: Performed By: #### B MP #### [facility] [address] [address] [address] Rashmi Nolan Potassium [Moles/Vol] 5.1 mmol/L Normal 3.5-5.1 [facility] Comment on above: Performed By: #### B MP #### [facility] [address] [address] [address] Rashmi Nolan Sodium [Moles/Vol] 140 mmol/L Normal 136-145 [facility] Comment on above: Performed By: #### B MP #### [facility] [address] [address] [address] Rashmi Nolan Urea nitrogen [Mass/Vol] 27.0 mg/dL Critically high 7.0-18.0 [facility] Comment on above: Performed By: #### B MP #### [facility] [address] [address] [address] Rashmi Nolan Urea nitrogen/Creatinine [Mass ratio] 16.1 mg/mg Normal [facility] Comment on above: Performed By: #### B MP #### [facility] [address] [address] [address] Rashmi Nolan Transfer Inon 12-14-2022 Transfer In [id number]#1 .00CD:127 Normal [facility] CBC AUTO DIFFon 12-13-2022 BASO # 0.0 103/ul Normal 0.0-0.1 [facility] Comment on above: Performed By: #### C BC #### [facility] [address] [address] [address] Rashmi Nolan Basophils/100 WBC (Bld) 0.6 % Normal 0.2-2.0 [facility] Comment on above: Performed By: #### C BC #### [facility] [address] [address] [address] Rashmi Nolan EO # 0.4 103/ul Normal 0.0-0.7 [facility] Comment on above: Performed By: #### C BC #### [facility] [address] [place] [address] Dr. Rashmi Nolan Eosinophils/100 WBC (Bld) 10.3 % Critically high 0.9-7.0 [facility] Comment on above: Performed By: #### C BC #### [facility] [address] [place] [address] Dr. Rashmi Nolan Erythrocyte distribution width (RBC) [Ratio] 15.8 % Critically high 11.0-15.0 [facility] Comment on above: Performed By: #### C BC #### [facility] [address] [place] [address] Dr. Rashmi Nolan Hematocrit (Bld) [Volume fraction] 25.7 % Critically low 42.0-54.0 [facility] Comment on above: Performed By: #### C BC #### [facility] [address] [place] [address] Dr. Rashmi Nolan Hemoglobin (Bld) [Mass/Vol] 8.5 g/dL Critically low 14.0-18.0 [facility] Comment on above: Performed By: #### C BC #### [facility] [address] [place] [address] Dr. Rashmi Nolan IG # 0.00 10e3/ul Normal 0.00-0.03 [facility] Comment on above: Performed By: #### C BC #### [facility] [address] [place] [address] Dr. Rashmi Nolan IG % 0.0 % Normal 0.0-0.5 [facility] Comment on above: Performed By: #### C BC #### [facility] [address] [place] [address] Dr. Rashmi Nolan LYMPH # 0.8 103/ul Critically low 1.2-3.8 [facility] Comment on above: Performed By: #### C BC #### [facility] [address] [place] [address] Dr. Rashmi Nolan Lymphocytes/100 WBC (Bld) 23.5 % Normal 20.5-60.0 [facility] Comment on above: Performed By: #### C BC #### [facility] [address] [place] [address] Dr. Rashmi Nolan MANUAL DIFF REQ NO Normal [facility] Comment on above: Performed By: #### C BC #### [facility] [address] [place] [address] Dr. Rashmi Nolan MCH (RBC) [Entitic mass] 32.9 pg Normal 25.9-34.0 [facility] Comment on above: Performed By: #### C BC #### [facility] [address] [place] [address] Dr. Rashmi Nolan MCHC (RBC) [Mass/Vol] 33.1 g/dL Normal 29.9-35.2 [facility] Comment on above: Performed By: #### C BC #### [facility] [address] [place] [address] Dr. Rashmi Nolan MCV (RBC) [Entitic vol] 99.6 fL Critically high 80.0-94.0 [facility] Comment on above: Performed By: #### C BC #### [facility] [address] [place] [address] Dr. Rashmi Nolan MONO # 0.3 103/ul Normal 0.3-0.8 [facility] Comment on above: Performed By: #### C BC #### [facility] [address] [place] [address] Dr. Rashmi Nolan Monocytes/100 WBC (Bld) 8.9 % Normal 1.7-12.0 [facility] Comment on above: Performed By: #### C BC #### [facility] [address] [place] [address] Dr. Rashmi Nolan NEUT # 2.0 103/ul Normal 1.4-6.5 [facility] Comment on above: Performed By: #### C BC #### [facility] [address] [place] [address] Dr. Rashmi Nolan Neutrophils/100 WBC (Bld) 56.7 % Normal 43.0-75.0 [facility] Comment on above: Performed By: #### C BC #### [facility] [address] [place] [address] Dr. Rashmi Nolan Platelet mean volume (Bld) [Entitic vol] 10.5 fL Normal 9.5-13.5 [facility] Comment on above: Performed By: #### C BC #### [facility] [address] [place] [address] Dr. Rashmi Nolan PLT 134 103/ul Critically low 150-450 [facility] Comment on above: Performed By: #### C BC #### [facility] [address] [place] [address] Dr. Rashmi Nolan RBC 2.58 106/ul Critically low 4.70-6.10 [facility] Comment on above: Performed By: #### C BC #### [facility] [address] [place] [address] Dr. Rashmi Nolan WBC 3.6 103/ul Critically low 4.0-11.0 [facility] Comment on above: Performed By: #### C BC #### [facility] [address] [place] [address] Dr. Rashmi Nolan PROF CHEM 8 (BAS METB)on Anion gap [Moles/Vol] 11.7 mmol/L Normal [facility] Comment on above: Performed By: #### C BC #### [facility] [address] [place] [address] Dr. Rashmi Nolan Calcium [Mass/Vol] 9.5 mg/dL Normal 8.5-10.1 [facility] Comment on above: Performed By: #### C BC #### [facility] [address] [address] [address] Rashmi Nolan Chloride [Moles/Vol] 110 mmol/L Critically high 98-107 [facility] Comment on above: Performed By: #### C BC #### [facility] [address] [address] [address] Rashmi Nolan CO2 [Moles/Vol] 25.1 mmol/L Normal 21.0-32.0 [facility] Comment on above: Performed By: #### C BC #### [facility] [address] [place] [address] Dr. Rashmi Nolan Creatinine [Mass/Vol] 1.69 mg/dL Critically high 0.70-1.30 [facility] Comment on above: Performed By: #### C BC #### [facility] [address] [place] [address] Dr. Rashmi Nolan EGFR-AF KAZAKH 47 mL/min/1.73m2 Critically low >=60 [facility] Comment on above: Performed By: #### C BC #### [facility] [address] [place] [address] Dr. Rashmi Nolan EGFR-NON AF KAZAKH 38 mL/min/1.73m2 Critically low >=60 [facility] Comment on above: Performed By: #### C BC #### [facility] [address] [address] [address] Rashmi Nolan Glucose [Mass/Vol] 93 mg/dL Normal 74-106 [facility] Comment on above: Performed By: #### C BC #### [facility] [address] [address] [address] Rashmi Nolan Potassium [Moles/Vol] 5.8 mmol/L Critically high 3.5-5.1 [facility] Comment on above: Performed By: #### C BC #### [facility] [address] [address] [address] Rashmi Nolan Sodium [Moles/Vol] 141 mmol/L Normal 136-145 [facility] Comment on above: Performed By: #### C BC #### [facility] [address] [place] [address] Dr. Rashmi Nolan Urea nitrogen [Mass/Vol] 35.0 mg/dL Critically high 7.0-18.0 [facility] Comment on above: Performed By: #### C BC #### [facility] [address] [place] [address] Dr. Rashmi Nolan Urea nitrogen/Creatinine [Mass ratio] 20.7 mg/mg Normal [facility] Comment on above: Performed By: #### C BC #### [facility] [address] [place] [address] Dr. Rashmi Nolan ABO RH RETYPEon 12-12-2022 ABO and Rh group Nom (Bld) DONE Normal [facility] Comment on above: Performed By: #### C BC #### [facility] [address] [place] [address] Dr. Rashmi Nolan Auth for Release of Medical Recordson 12-12-2022 Auth for Release of Medical Records [id number]#1 .00CD:127 Normal [facility] CBC AUTO DIFFon 12-12-2022 BASO # 0.0 103/ul Normal 0.0-0.1 [facility] Comment on above: Performed By: #### C BC #### [facility] [address] [place] [address] Dr. Rashmi Nolan Basophils/100 WBC (Bld) 0.6 % Normal 0.2-2.0 [facility] Comment on above: Performed By: #### C BC #### [facility] [address] [place] [address] Dr. Rashmi Nolan EO # 0.3 103/ul Normal 0.0-0.7 [facility] Comment on above: Performed By: #### C BC #### [facility] [address] [place] [address] Dr. Rashmi Nolan Eosinophils/100 WBC (Bld) 7.6 % Critically high 0.9-7.0 [facility] Comment on above: Performed By: #### C BC #### [facility] [address] [place] [address] Dr. Rashmi Nolan Erythrocyte distribution width (RBC) [Ratio] 16.4 % Critically high 11.0-15.0 [facility] Comment on above: Performed By: #### C BC #### [facility] [address] [place] [address] Dr. Rashmi Nolan Hematocrit (Bld) [Volume fraction] 27.2 % Critically low 42.0-54.0 [facility] Comment on above: Performed By: #### C BC #### [facility] [address] [place] [address] Dr. Rashmi Nolan Hemoglobin (Bld) [Mass/Vol] 9.1 g/dL Critically low 14.0-18.0 [facility] Comment on above: Performed By: #### C BC #### [facility] [address] [place] [address] Dr. Rashmi Nolan IG # 0.01 10e3/ul Normal 0.00-0.03 [facility] Comment on above: Performed By: #### C BC #### [facility] [address] [place] [address] Dr. Rashmi Nolan IG % 0.3 % Normal 0.0-0.5 [facility] Comment on above: Performed By: #### C BC #### [facility] [address] [place] [address] Dr. Rashmi Nolan LYMPH # 0.9 103/ul Critically low 1.2-3.8 [facility] Comment on above: Performed By: #### C BC #### [facility] [address] [place] [address] Dr. Rashmi Nolan Lymphocytes/100 WBC (Bld) 25.3 % Normal 20.5-60.0 [facility] Comment on above: Performed By: #### C BC #### [facility] [address] [place] [address] Dr. Rashmi Nolan MANUAL DIFF REQ NO Normal [facility] Comment on above: Performed By: #### C BC #### [facility] [address] [place] [address] Dr. Rashmi Nolan MCH (RBC) [Entitic mass] 33.0 pg Normal 25.9-34.0 [facility] Comment on above: Performed By: #### C BC #### [facility] [address] [place] [address] Dr. Rashmi Nolan MCHC (RBC) [Mass/Vol] 33.5 g/dL Normal 29.9-35.2 [facility] Comment on above: Performed By: #### C BC #### [facility] [address] [place] [address] Dr. Rashmi Nolan MCV (RBC) [Entitic vol] 98.6 fL Critically high 80.0-94.0 [facility] Comment on above: Performed By: #### C BC #### [facility] [address] [place] [address] Dr. Rashmi Nolan MONO # 0.3 103/ul Normal 0.3-0.8 [facility] Comment on above: Performed By: #### C BC #### [facility] [address] [place] [address] Dr. Rashmi Nolan Monocytes/100 WBC (Bld) 8.1 % Normal 1.7-12.0 [facility] Comment on above: Performed By: #### C BC #### [facility] [address] [place] [address] Dr. Rashmi Nolan NEUT # 2.0 103/ul Normal 1.4-6.5 [facility] Comment on above: Performed By: #### C BC #### [facility] [address] [place] [address] Dr. Rashmi Nolan Neutrophils/100 WBC (Bld) 58.1 % Normal 43.0-75.0 [facility] Comment on above: Performed By: #### C BC #### [facility] [address] [place] [address] Dr. Rashmi Nolan Platelet mean volume (Bld) [Entitic vol] 10.0 fL Normal 9.5-13.5 [facility] Comment on above: Performed By: #### C BC #### [facility] [address] [address] [address] Rashmi Nolan PLT 147 103/ul Critically low 150-450 [facility] Comment on above: Performed By: #### C BC #### [facility] [address] [address] [address] Rashmi Nolan RBC 2.76 106/ul Critically low 4.70-6.10 [facility] Comment on above: Performed By: #### C BC #### [facility] [address] [address] [address] Rashmi Nolan WBC 3.4 103/ul Critically low 4.0-11.0 [facility] Comment on above: Performed By: #### C BC #### [facility] [address] [place] [address] Dr. Rashmi Nolan BASO # 0.0 103/ul Normal 0.0-0.1 [facility] Comment on above: Performed By: #### C BC #### [facility] [address] [address] [address] Rashmi Nolan Basophils/100 WBC (Bld) 0.6 % Normal 0.2-2.0 [facility] Comment on above: Performed By: #### C BC #### [facility] [address] [place] [address] Dr. Rashmi Nolan EO # 0.2 103/ul Normal 0.0-0.7 [facility] Comment on above: Performed By: #### C BC #### [facility] [address] [place] [address] Dr. Rashmi Nolan Eosinophils/100 WBC (Bld) 6.6 % Normal 0.9-7.0 [facility] Comment on above: Performed By: #### C BC #### [facility] [address] [place] [address] Dr. Rashmi Nolan Erythrocyte distribution width (RBC) [Ratio] 16.4 % Critically high 11.0-15.0 [facility] Comment on above: Performed By: #### C BC #### [facility] [address] [place] [address] Dr. Rashmi Nolan Hematocrit (Bld) [Volume fraction] 26.1 % Critically low 42.0-54.0 [facility] Comment on above: Performed By: #### C BC #### [facility] [address] [place] [address] Dr. Rashmi Nolan Hemoglobin (Bld) [Mass/Vol] 8.5 g/dL Critically low 14.0-18.0 [facility] Comment on above: Result Comment: rcvd . blood Performed By: #### C BC #### [facility] [address] [place] [address] Dr. Rashmi Nolan IG # 0.01 10e3/ul Normal 0.00-0.03 [facility] Comment on above: Performed By: #### C BC #### [facility] [address] [place] [address] Dr. Rashmi Nolan IG % 0.3 % Normal 0.0-0.5 [facility] Comment on above: Performed By: #### C BC #### [facility] [address] [place] [address] Dr. Rashmi Nolan LYMPH # 0.7 103/ul Critically low 1.2-3.8 [facility] Comment on above: Performed By: #### C BC #### [facility] [address] [place] [address] Dr. Rashmi Nolan Lymphocytes/100 WBC (Bld) 20.2 % Critically low 20.5-60.0 [facility] Comment on above: Performed By: #### C BC #### [facility] [address] [place] [address] Dr. Rashmi Nolan MANUAL DIFF REQ NO Normal [facility] Comment on above: Performed By: #### C BC #### [facility] [address] [place] [address] Dr. Rashmi Nolan MCH (RBC) [Entitic mass] 32.7 pg Normal 25.9-34.0 [facility] Comment on above: Performed By: #### C BC #### [facility] [address] [address] [address] Rashmi Nolan MCHC (RBC) [Mass/Vol] 32.6 g/dL Normal 29.9-35.2 [facility] Comment on above: Performed By: #### C BC #### [facility] [address] [address] [address] Rashmi Nolan MCV (RBC) [Entitic vol] 100.4 fL Critically high 80.0-94.0 [facility] Comment on above: Performed By: #### C BC #### [facility] [address] [address] [address] Rashmi Nolan MONO # 0.3 103/ul Normal 0.3-0.8 [facility] Comment on above: Performed By: #### C BC #### [facility] [address] [place] [address] Dr. Rashmi Nolan Monocytes/100 WBC (Bld) 7.7 % Normal 1.7-12.0 [facility] Comment on above: Performed By: #### C BC #### [facility] [address] [address] [address] Rashmi Nolan NEUT # 2.3 103/ul Normal 1.4-6.5 [facility] Comment on above: Performed By: #### C BC #### [facility] [address] [place] [address] Dr. Rashmi Nolan Neutrophils/100 WBC (Bld) 64.6 % Normal 43.0-75.0 [facility] Comment on above: Performed By: #### C BC #### [facility] [address] [address] [address] Rashmi Nolan Platelet mean volume (Bld) [Entitic vol] 9.9 fL Normal 9.5-13.5 [facility] Comment on above: Performed By: #### C BC #### [facility] [address] [place] [address] Dr. Rashmi Nolan PLT 130 103/ul Critically low 150-450 [facility] Comment on above: Performed By: #### C BC #### [facility] [address] [place] [address] Dr. Rashmi Nolan RBC 2.60 106/ul Critically low 4.70-6.10 [facility] Comment on above: Performed By: #### C BC #### [facility] [address] [place] [address] Dr. Rashmi Nolan WBC 3.6 103/ul Critically low 4.0-11.0 [facility] Comment on above: Performed By: #### C BC #### [facility] [address] [place] [address] Dr. Rashmi Nolan PRBC LEUKOREDUCEDon 12-13-19 ABO and Rh group Nom (Bld) Cross Match Result Compatible Unit Blood Type O Pos Unit Number [id number] Status Information Issued Product ID Red Blood Cells Product Code [id number] Issue Date/Time [id number] Cross Match Result Compatible Unit Blood Type O Pos Unit Number [id number] Status Information Issued Product ID Red Blood Cells Product Code [id number] Issue Date/Time [id number] Normal [facility] Comment on above: Performed By: #### C BC #### [facility] [address] [place] [address] Dr. Rashmi Nolan PROF CHEM 8 (BAS METB)on Anion gap [Moles/Vol] 14.8 mmol/L Normal [facility] Comment on above: Performed By: #### B MP #### [facility] [address] [place] [address] Dr. Rashmi Nolan Calcium [Mass/Vol] 9.2 mg/dL Normal 8.5-10.1 [facility] Comment on above: Performed By: #### B MP #### [facility] [address] [place] [address] Dr. Rashmi Nolan Chloride [Moles/Vol] 110 mmol/L Critically high 98-107 [facility] Comment on above: Performed By: #### B MP #### [facility] [address] [place] [address] Dr. Rashmi Nolan CO2 [Moles/Vol] 23.5 mmol/L Normal 21.0-32.0 [facility] Comment on above: Performed By: #### B MP #### [facility] [address] [address] [address] Rashmi Nolan Creatinine [Mass/Vol] 1.77 mg/dL Critically high 0.70-1.30 [facility] Comment on above: Performed By: #### B MP #### [facility] [address] [address] [address] Rashmi Nolan EGFR-AF KAZAKH 44 mL/min/1.73m2 Critically low >=60 [facility] Comment on above: Performed By: #### B MP #### [facility] [address] [address] [address] Rashmi Nolan EGFR-NON AF KAZAKH 36 mL/min/1.73m2 Critically low >=60 [facility] Comment on above: Performed By: #### B MP #### [facility] [address] [address] [address] Rashmi Nolan Glucose [Mass/Vol] 103 mg/dL Normal 74-106 [facility] Comment on above: Performed By: #### B MP #### [facility] [address] [address] [address] Rashmi Nolan Potassium [Moles/Vol] 5.3 mmol/L Critically high 3.5-5.1 [facility] Comment on above: Performed By: #### B MP #### [facility] [address] [address] [address] Rashmi Nolan Sodium [Moles/Vol] 143 mmol/L Normal 136-145 [facility] Comment on above: Performed By: #### B MP #### [facility] [address] [address] [address] Rashmi Nolan Urea nitrogen [Mass/Vol] 54.0 mg/dL Critically high 7.0-18.0 [facility] Comment on above: Performed By: #### B MP #### [facility] [address] [address] [address] Rashmi Nolan Urea nitrogen/Creatinine [Mass ratio] 30.5 mg/mg Normal [facility] Comment on above: Performed By: #### B #### [facility] [address] [place], [place] [address] Dr. Rashmi Nolan Auto Diffon 12-11-2022 Basophils/100 WBC (Bld) 0.5 % Normal 0.0-2.0 [facility] Comment on above: Order Comment: Order Added by Discern Expert. Performed By: #### 2 [id number], [id number], [id number] ####[facility] [address] [place] [address] Basophils/Leukocytes Auto (Bld) [Pure # fraction] 0.0 E9/L Normal 0.0-0.2 [facility] Comment on above: Order Comment: Order Added by Discern Expert. Performed By: #### 2 789960, [id number], [id number] ####[address] [address] Eosinophils/100 WBC (Bld) 3.4 % Normal 0.0-8.0 [facility] Comment on above: Order Comment: Order Added by Discern Expert. Performed By: #### 2 943509, 6161857, [id number] ####[facility] [address] [place] [address] Eosinophils/Leukocyt es Auto (Bld) [Pure # fraction] 0.2 E9/L Normal 0.0-0.5 [facility] Comment on above: Order Comment: Order Added by Discern Expert. Performed By: #### 2 521858, [id number], [id number] ####[facility] [address] [place] [address] Lymphocytes/100 WBC (Bld) 17.1 % Normal 14.0-50.0 [facility] Comment on above: Order Comment: Order Added by Discern Expert. Performed By: #### 2 920457, [id number], [id number] ####[address] [place] [address] Lymphocytes/Leukocyt es Auto (Bld) [Pure # fraction] 0.9 E9/L Low 1.0-4.0 [facility] Comment on above: Order Comment: Order Added by Discern Expert. Performed By: #### 2 683609, 0505295, [id number] ####[address] [address] Monocytes/100 WBC (Bld) 6.1 % Normal 4.0-14.0 [facility] Comment on above: Order Comment: Order Added by Discern Expert. Performed By: #### 2 073838, [id number], [id number] ####[address] [address] Monocytes/Leukocytes Auto (Bld) [Pure # fraction] 0.3 E9/L Normal 0.2-1.0 [facility] Comment on above: Order Comment: Order Added by Discern Expert. Performed By: #### 2 926813, 0091834, [id number] ####[address] [address] Neutrophils/100 WBC (Bld) 72.9 % Normal 36.0-75.0 [facility] Comment on above: Order Comment: Order Added by Discern Expert. Performed By: #### 2 402094, 2642482, [id number] ####[address] [address] Neutrophils/Leukocyt es Auto (Bld) [Pure # fraction] 3.8 E9/L Normal 2.0-7.5 [facility] Comment on above: Order Comment: Order Added by Discern Expert. Performed By: #### 2 038981, 4078978, [id number] ####[address] [place] [address] CBC AUTO DIFFon 12-11-2022 BASO # 0.0 103/ul Normal 0.0-0.1 [facility] Comment on above: Performed By: #### C BC #### [facility] [address] [place], [place] [address] Dr. Rashmi Nolan Basophils/100 WBC (Bld) 0.4 % Normal 0.2-2.0 [facility] Comment on above: Performed By: #### C BC #### [facility] [address] [place] [address] Dr. Rashmi Nolan EO # 0.2 103/ul Normal 0.0-0.7 [facility] Comment on above: Performed By: #### C BC #### [facility] [address] [place] [address] Dr. Rashmi Nolan Eosinophils/100 WBC (Bld) 5.2 % Normal 0.9-7.0 [facility] Comment on above: Performed By: #### C BC #### [facility] [address] [place] [address] Dr. Rashmi Nolan Erythrocyte distribution width (RBC) [Ratio] 14.6 % Normal 11.0-15.0 [facility] Comment on above: Performed By: #### C BC #### [facility] [address] [place] [address] Dr. Rashmi Nolan Hematocrit (Bld) [Volume fraction] 23.7 % Critically low 42.0-54.0 [facility] Comment on above: Performed By: #### C BC #### [facility] [address] [place] [address] Dr. Rashmi Nolan Hemoglobin (Bld) [Mass/Vol] 7.8 g/dL Critically low 14.0-18.0 [facility] Comment on above: Performed By: #### C BC #### [facility] [address] [place] [address] Dr. Rashmi Nolan IG # 0.01 10e3/ul Normal 0.00-0.03 [facility] Comment on above: Performed By: #### C BC #### [facility] [address] [place] [address] Dr. Rashmi Nolan IG % 0.2 % Normal 0.0-0.5 [facility] Comment on above: Performed By: #### C BC #### [facility] [address] [place] [address] Dr. Rashmi Nolan LYMPH # 0.9 103/ul Critically low 1.2-3.8 [facility] Comment on above: Performed By: #### C BC #### [facility] [address] [address] [address] Rashmi Nolan Lymphocytes/100 WBC (Bld) 19.6 % Critically low 20.5-60.0 [facility] Comment on above: Performed By: #### C BC #### [facility] [address] [address] [address] Rashmi Nolan MANUAL DIFF REQ NO Normal [facility] Comment on above: Performed By: #### C BC #### [facility] [address] [place] [address] Dr. Rashmi Nolan MCH (RBC) [Entitic mass] 34.7 pg Critically high 25.9-34.0 [facility] Comment on above: Performed By: #### C BC #### [facility] [address] [place] [address] Dr. Rashmi Nolan MCHC (RBC) [Mass/Vol] 32.9 g/dL Normal 29.9-35.2 [facility] Comment on above: Performed By: #### C BC #### [facility] [address] [place] [address] Dr. Rashmi Nolan MCV (RBC) [Entitic vol] 105.3 fL Critically high 80.0-94.0 [facility] Comment on above: Performed By: #### C BC #### [facility] [address] [place] [address] Dr. Rashmi Nolan MONO # 0.3 103/ul Normal 0.3-0.8 [facility] Comment on above: Performed By: #### C BC #### [facility] [address] [place] [address] Dr. Rashmi Nolan Monocytes/100 WBC (Bld) 7.2 % Normal 1.7-12.0 [facility] Comment on above: Performed By: #### C BC #### [facility] [address] [place] [address] Dr. Rashmi Nolan NEUT # 3.0 103/ul Normal 1.4-6.5 [facility] Comment on above: Performed By: #### C BC #### [facility] [address] [address] [address] Rashmi Nolan Neutrophils/100 WBC (Bld) 67.4 % Normal 43.0-75.0 [facility] Comment on above: Performed By: #### C BC #### [facility] [address] [address] [address] Rashmi Nolan Platelet mean volume (Bld) [Entitic vol] 9.8 fL Normal 9.5-13.5 [facility] Comment on above: Performed By: #### C BC #### [facility] [address] [place] [address] Dr. Rashmi Nolan PLT 156 103/ul Normal 150-450 [facility] Comment on above: Performed By: #### C BC #### [facility] [address] [place] [address] Dr. Rashmi Nolan RBC 2.25 106/ul Critically low 4.70-6.10 [facility] Comment on above: Performed By: #### C BC #### [facility] [address] [place] [address] Dr. Rashmi Nolan WBC 4.5 103/ul Normal 4.0-11.0 [facility] Comment on above: Performed By: #### C BC #### [facility] [address] [place] [address] Dr. Rashmi Nolan CBC w/ Auto Diffon 3 Erythrocyte distribution width (RBC) [Ratio] 14.9 % High 10.9-14.2 [facility] Comment on above: Performed By: #### 2 723712, 9994174, [id number] #### [facility] [address] [place] [address] Hematocrit (Bld) [Volume fraction] 24.1 % Low 37.7-49.0 [facility] Comment on above: Performed By: #### 2 025413, 1882457, [id number] #### [facility] [address] [place] [address] Hemoglobin (Bld) [Mass/Vol] 8.1 g/dL Low 13.5-17.5 [facility] Comment on above: Performed By: #### 2 739984, 6739754, [id number] #### [facility] [address] [place] [address] MCH (RBC) [Entitic mass] 34.0 pg Normal 27.0-34.0 [facility] Comment on above: Performed By: #### 2 213991, 8152341, [id number] #### [facility] [address] [place] [address] MCHC (RBC) [Mass/Vol] 33.6 g/dL Normal 31.4-36.0 [facility] Comment on above: Performed By: #### 2 622417, 3895590, 14328756 #### [facility] [address] [place] [address] MCV (RBC) [Entitic vol] 101.1 fL High 80.0-100.0 [facility] Comment on above: Performed By: #### 2 458802, 2051212, [id number] #### [facility] [address] [place] [address] Platelet mean volume (Bld) [Entitic vol] 8.9 fL Normal 6.4-10.8 [facility] Comment on above: Performed By: #### 2 383448, 3107467, [id number] #### [facility] [address] [place] [address] Platelets (Bld) [#/Vol] 177.0 E9/L Normal 150.0-500.0 [facility] Comment on above: Performed By: #### 2 942316, 8113937, [id number] #### [facility] [address] [place] [address] RBC (Bld) [#/Vol] 2.4 E12/L Low 4.3-5.9 [facility] Comment on above: Performed By: #### 2 042236, 9020641, 59255877 #### [facility] [address] [place] [address] WBC corrected for nucl RBC Auto (Bld) [#/Vol] 5.2 E9/L Normal 4.0-11.0 [facility] Comment on above: Performed By: #### 2 747846, 9633698, 46028059 #### [facility] [address] [place] [address] CHEMISTRYOrdered By: SYSTEM SYSTEM on 12-11-2022 Iron binding capacity [Mass/Vol] 417 ug/dL High 250 - 400 mcg/dL FT Remisol Transferrin [Mass/Vol] 298 mg/dL Normal 200 - 370 mg/dL [facility] Remisol Consent Formson 12-11-2022 Consent Forms [id number] .[id number] Normal [facility] Family Medicine Office/Clini c Noteon 12-11-2022 Family Medicine Office/Clinic Note HPI Staff Noemi is an 87 year old male who presents to establish care. 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 Martinez, Dr. Royal Jordan-Cardiology [facility] Last provider: Dr. [...] he turned 79 years old. Will call [facility] and request records for any colonoscopy in 2015 or more recent. Review of Systems PHQ Score Initial Depression Screen Score: 0 Physical Exam Vitals & Measurements HR: 60(Peripheral) BP: 128/62 SpO2: 98% HT: 70 in HT: 178.5 cm WT: 99 kg WT: 217.8 lb BMI: 31.07 Assessment/Plan 1. Black tarry stools (K92.1: Melena) Ordered: CBC w/ Auto Diff Fibrinogen Lvl [facility] Internal Ambulatory Referral Lab Specimen Collect [id number] PT & PTT Stool Occult Blood Stool Occult Blood TIBC Calculated 2. Family hx of colon cancer (Z80.0: Family history of malignant neoplasm of digestive organs) Ordered: [facility] Internal Ambulatory Referral Lab Specimen Collect [id number] Stool Occult Blood 3. Colon cancer screening (Z12.11: Encounter for screening for malignant neoplasm of colon) Ordered: [facility] Internal Ambulatory Referral Lab Specimen Collect [id number] Stool Occult Blood 4. BMI 31.0-31.9,adult (Z68.31: Body mass index [BMI] 31.0-31.9, adult) Ordered: [facility] Internal Ambulatory Referral Stool Occult Blood [...] Recorded influenza, whole 05/29/2005 Recorded Normal [facility] Comment on above: Result Comment: Elec [...] seeing specialists: Dr. Martinez, Dr. Royal Jordan-Cardiology [facility], [facility] Last provider: Dr. [...] he turned 79 years old. Will call [facility] and request records for any colonoscopy in [...] he had colonoscopy 6-7 years ago at [facility]. will call to access those records. pt has significant family history of colon cancer. will send stool to lab, will draw CBC and clotting studies in office today. will call patient tomorrow to advise if he should stop taking warfarin depending on lab results. all questions answered. RTC as needed Ordered: CBC w/ Auto Diff Fibrinogen Lvl [facility] Internal Ambulatory Referral PT & PTT Stool Occult Blood Stool Occult Blood TIBC Calculated 2. Family hx of colon cancer (Z80.0: Family history of malignant neoplasm of digestive organs) referral to Dr. Apolinar baez for scope Ordered: [facility] Internal Ambulatory Referral Stool Occult Blood 3. Colon cancer screening (Z12.11: Encounter for screening for malignant neoplasm of colon) see above Ordered: [facility] Internal Ambulatory Referral Stool Occult Blood 4. BMI 31.0-31.9,adult (Z68.31: Body mass index [BMI] 31.0-31.9, adult) BMI education complete Ordered: [facility] Internal Ambulatory Referral Stool Occult Blood [...] (more content not included)... Normal [facility] Comment on above: Result Comment: Elec tronically Signed By: Sheng Simms\.br\Date and Time Signed: 12/11/22 13:48 EDT HEMATOLOGYOrdered By: [employer] on 12-11-2022 Basophils/100 WBC (Bld) 0.5 [...] 023 Albumin [Mass/Vol] 3.8 g/dL Normal 3.4-5.0 [facility] Comment on above: Performed By: #### B MP #### [facility] [address] [address] [address] Rashmi Nolan Albumin/Globulin [Mass ratio] 1.1 {ratio} Normal [facility] Comment on above: Performed By: #### B MP #### [facility] [address] [address] [address] Rashmi Nolan ALP [Catalytic activity/Vol] 178 U/L Critically high 46-116 [facility] Comment on above: Performed By: #### B MP #### [facility] [address] [address] [address] Rashmi Nolan ALT [Catalytic activity/Vol] 17 U/L Normal 16-63 [facility] Comment on above: Performed By: #### B MP #### [facility] [address] [address] [address] Rashmi Nolan Anion gap [Moles/Vol] 15.6 mmol/L Normal [facility] Comment on above: Performed By: #### B MP #### [facility] [address] [address] [address] Rashmi Nolan AST [Catalytic activity/Vol] 12 U/L Critically low 15-37 [facility] Comment on above: Performed By: #### B MP #### [facility] [address] [address] [address] Rashmi Nolan Bilirubin [Mass/Vol] 0.2 mg/dL Normal 0.2-1.0 [facility] Comment on above: Performed By: #### B MP #### [facility] [address] [address] [address] Rashmi Nolan Calcium [Mass/Vol] 9.5 mg/dL Normal 8.5-10.1 [facility] Comment on above: Performed By: #### B MP #### [facility] [address] [address] [address] Rashmi Nolan Chloride [Moles/Vol] 109 mmol/L Critically high 98-107 [facility] Comment on above: Performed By: #### B MP #### [facility] [address] [address] [address] Rashmi Nolan CO2 [Moles/Vol] 22.5 mmol/L Normal 21.0-32.0 [facility] Comment on above: Performed By: #### B MP #### [facility] [address] [address] [address] Rashmi Nolan Creatinine [Mass/Vol] 2.11 mg/dL Critically high 0.70-1.30 [facility] Comment on above: Performed By: #### B MP #### [facility] [address] [address] [address] Rashmi Nolan EGFR-AF KAZAKH 36 mL/min/1.73m2 Critically low >=60 [facility] Comment on above: Performed By: #### B MP #### [facility] [address] [address] [address] Rashmi Nolan EGFR-NON AF KAZAKH 30 mL/min/1.73m2 Critically low >=60 [facility] Comment on above: Performed By: #### B MP #### [facility] [address] [address] [address] Rasmhi Nolan Globulin (S) [Mass/Vol] 3.4 g/dL Normal [facility] Comment on above: Performed By: #### B MP #### [facility] [address] [address] [address] Rashmi Nolan Glucose [Mass/Vol] 115 mg/dL Critically high 74-106 [facility] Comment on above: Performed By: #### B MP #### [facility] [address] [address] [address] Rashmi Nolan Potassium [Moles/Vol] 5.1 mmol/L Normal 3.5-5.1 [facility] Comment on above: Performed By: #### B MP #### [facility] [address] [place] [address] Dr. Rashmi Nolan Protein [Mass/Vol] 7.2 g/dL Normal 6.4-8.2 [facility] Comment on above: Performed By: #### B MP #### [facility] [address] [place] [address] Dr. Rashmi Nolan Sodium [Moles/Vol] 142 mmol/L Normal 136-145 [facility] Comment on above: Performed By: #### B MP #### [facility] [address] [place] [address] Dr. Rashmi Nolan Urea nitrogen [Mass/Vol] 57.0 mg/dL Critically high 7.0-18.0 [facility] Comment on above: Performed By: #### B MP #### [facility] [address] [place] [address] Dr. Rashmi Nolan Urea nitrogen/Creatinine [Mass ratio] 27.0 mg/mg Normal [facility] Comment on above: Performed By: #### B MP #### [facility] [address] [address] [address] Rashmi Nolan PROTIMEon 12-11-2022 INR Coag (PPP) [Relative time] 1.95 {INR} Normal [facility] Comment on above: Performed By: #### P T, PTT #### [facility] [address] [place] [address] Dr. Rashmi Nolan INR GUIDELINES SEE BELOW Normal [facility] Comment on above: Result Comment: ENOC RED INR: 2.0 - 3.0 CONDITIONS NOT LISTED BELOW 2.5 - 3.5 FOR PROSTHETIC HEART VALVE REPLACEMENT 2.5 - 3.5 RECURRENT THROMBOSIS Performed By: #### P T, PTT #### [facility] [address] [address] [address] Rashmi Nolan PT Coag (PPP) [Time] 19.9 s Critically high 9.0-11.6 [facility] Comment on above: Performed By: #### P T, PTT #### [facility] [address] [place] [address] Dr. Rashmi Nolan PTTon 12-11-2022 aPTT Coag (Bld) [Time] 30.3 s Normal 22.3-36.2 [facility] Comment on above: Performed By: #### P T, PTT #### [facility] [address] [place] [address] Dr. Rashmi Nolan Stl [place]t B[place]on 12-11-2022 Occult Bld Stl Positive Abnormal Negative [facility] Comment on above: Performed By: #### 2 [id number] #### [facility] [address] [place] [address] TIBC Calculatedon 12-11-2022 Iron binding capacity [Mass/Vol] 417 microgram/dL High 250-400 [facility] [place] Comment on above: Performed By: #### 2 735711, 7436148, [id number] ####[facility] [address] [place] [address] Transferrin [Mass/Vol] 298 mg/dL Normal 200-370 [facility] Comment on above: Performed By: #### 2 994170, 1042091, 11964181 ####[facility] [address] [place] [address] TYPE AND SCREENon 12-11-2022 TYPE AND SCREEN Negative Normal [facility] Comment on above: Performed By: #### C BC #### [facility] [address] [address] [address] Rashmi Nolan XR CHEST 1 Von [...] STEPHANIE LIU Date: 2022-12-11 21:04 Normal [facility] Inpatient Patient Summaryon 12-10-2022 [place] [address] Patient Discharge Instructions Name: RY LERNER : 1935 Patient Address: [address] [place] [address] Primary Care Provider: Name: John Nieves MD After you are discharged if you find you have any questions, please, call [phone] ext [phone] to speak to a nurse. 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 If you or anyone you know is experiencing suicidal thoughts, mental health, alcohol and/or drug addiction problems; contact the [facility] 18/02 Crisis Hotline -Text 5DVSL lf 103659. If you received any narcotics, sedation, or [...] business decisions or sign any legal documents [facility] would like to thank you for allowing us to assist you with your healthcare needs. The following includes patient education materials and information regarding your injury/illness. RY LERNER has been given the following list of follow-up instructions, prescriptions, and patient education materials: Follow-up Instructions With: Address: When: Ward Martinez [address] [place] [address], [address] [place] [address] [facility] (1) 12/18/2022 1:30 PM Medications During the [...] 3. DO NOT lift heavy objects or palm gatherer forcefully with your hand 4. Change your [...] or concerns, please call the office at [phone] 7. Follow up as scheduled Viruses or [...] and Prevention Septe (more content not included)... [facility] Preoperative [facility] Pre-Op Record Summary Primary Physician: Ward Martinez DO Finalized Date/Time: 12/10/22 15:29:41 Pt. Name: RY LERNER PERRY Barton./Sex: 1935 MALE Med Rec #: [id number] Physician: Ward Martinez DO Financial #: [id number] Pt. Type: D Room/Bed: / Admit/Disch: 12/10/22 [...] Signed By: Maile Palmer RN 12/10/22 15:29 [facility] Patient Handouton 12-10-[address] 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 Keep your hand elevated above your elbow for the first 24 hours after surgery 2. Wiggle your fingers frequently while awake 3. DO NOT lift heavy objects or palm gatherer forcefully with your hand 4. Change your [...] or concerns, please call the office at [phone] 7. Follow up as scheduled [facility] 36on 11-13-2022 36 Potassium was high, renal function is stable. Can stop taking potassium supplement and repeat BMP in one week. Normal [facility] Physician Referralon 023 Physician Referral [id number] #[id number]:127 Normal [facility] Physician Referral [id number]:127 Normal [facility] MAGNESIUMon 11-06-2022 Magnesium [Mass/Vol] 2.2 mg/dL Normal 1.8-2.4 [facility] Comment on above: Performed By: #### B MP, MG #### [facility] [address] [place] [address] Dr. Rashmi Nolan Office Visiton 11-06-2022 Follow-up visit [id number] Ry Lerner Lisbet 1935 M Date Provider Department Center 11/06/2022 SOLIS MARINELLI [facility] Family History Family history unknown: Yes Level of Service:95000 MT OFFICE/OUTPATIENT ESTABLISHED MOD MDM 30-39 MIN Reason for Visit and Comments: Atrial Fibrillation [80] Hypertension [732600] Normal [facility] PROF CHEM 8 (BAS METB)on Anion gap [Moles/Vol] 15.0 mmol/L Normal [facility] Comment on above: Performed By: #### B MP, MG #### [facility] [address] [place] [address] Dr. Rashmi Nolan Calcium [Mass/Vol] 10.0 mg/dL Normal 8.5-10.1 [facility] Comment on above: Performed By: #### B MP, MG #### [facility] [address] [address] [address] Rashmi Nolan Chloride [Moles/Vol] 108 mmol/L Critically high 98-107 [facility] Comment on above: Performed By: #### B MP, MG #### [facility] [address] [place] [address] Dr. Rashmi Nolan CO2 [Moles/Vol] 25.4 mmol/L Normal 21.0-32.0 [facility] Comment on above: Performed By: #### B MP, MG #### [facility] [address] [place] [address] Dr. Rashmi Nolan Creatinine [Mass/Vol] 1.98 mg/dL Critically high 0.70-1.30 [facility] Comment on above: Performed By: #### B MP, MG #### [facility] [address] [place] [address] Dr. Rashmi Nolan EGFR-AF KAZAKH 39 mL/min/1.73m2 Critically low >=60 [facility] Comment on above: Performed By: #### B MP, MG #### [facility] [address] [place] [address] Dr. Rashmi Nolan EGFR-NON AF KAZAKH 32 mL/min/1.73m2 Critically low >=60 [facility] Comment on above: Performed By: #### B MP, MG #### [facility] [address] [place] [address] Dr. Rashmi Nolan Glucose [Mass/Vol] 99 mg/dL Normal 74-106 [facility] Comment on above: Performed By: #### B MP, MG #### [facility] [address] [place] [address] Dr. Rashmi Nolan Potassium [Moles/Vol] 5.4 mmol/L Critically high 3.5-5.1 [facility] Comment on above: Performed By: #### B MP, MG #### [facility] [address] [place] [address] Dr. Rashmi Nolan Sodium [Moles/Vol] 143 mmol/L Normal 136-145 [facility] Comment on above: Performed By: #### B MP, MG #### [facility] [address] [place] [address] Dr. Rashmi Nolan Urea nitrogen [Mass/Vol] 52.0 mg/dL Critically high 7.0-18.0 [facility] Comment on above: Performed By: #### B MP, MG #### [facility] [address] [place] [address] Dr. Rashmi Nolan Urea nitrogen/Creatinine [Mass ratio] 26.3 mg/mg Normal [facility] Comment on above: Performed By: #### B MP, MG #### [facility] [address] [place] [address] Dr. Rashmi Nolan VIT B12 AND FOLATEon 08-22- 023 Cobalamin (Vitamin B12) [Mass/Vol] 514.0 pg/mL Normal 193.0-986.0 [facility] Comment on above: Performed By: #### B MP #### [facility] [address] [place] [address] Dr. Rashmi Nolan FOLATE 10.00 ng/mL Normal 8.60-58.90 [facility] Comment on above: Performed By: #### B MP #### [facility] [address] [address] [address] Rashmi Nolan CBC AUTO DIFFon 08-16-2022 BASO # 0.0 103/ul Normal 0.0-0.1 [facility] Comment on above: Performed By: #### B MP #### [facility] [address] [address] [address] Rashmi Nolan Basophils/100 WBC (Bld) 0.8 % Normal 0.2-2.0 [facility] Comment on above: Performed By: #### B MP #### [facility] [address] [place] [address] Dr. Rashmi Nolan EO # 0.3 103/ul Normal 0.0-0.7 [facility] Comment on above: Performed By: #### B MP #### [facility] [address] [place] [address] Dr. Rashmi Nolan Eosinophils/100 WBC (Bld) 7.8 % Critically high 0.9-7.0 [facility] Comment on above: Performed By: #### B MP #### [facility] [address] [place] [address] Dr. Rashmi Nolan Erythrocyte distribution width (RBC) [Ratio] 13.2 % Normal 11.0-15.0 [facility] Comment on above: Performed By: #### B MP #### [facility] [address] [place] [address] Dr. Rashmi Nolan Hematocrit (Bld) [Volume fraction] 33.2 % Critically low 42.0-54.0 [facility] Comment on above: Performed By: #### B MP #### [facility] [address] [place] [address] Dr. Rashmi Nolan Hemoglobin (Bld) [Mass/Vol] 10.8 g/dL Critically low 14.0-18.0 [facility] Comment on above: Performed By: #### B MP #### [facility] [address] [place] [address] Dr. Rashmi Nolan IG # 0.01 10e3/ul Normal 0.00-0.03 [facility] Comment on above: Performed By: #### B MP #### [facility] [address] [place] [address] Dr. Rashmi Nolan IG % 0.3 % Normal 0.0-0.5 [facility] Comment on above: Performed By: #### B MP #### [facility] [address] [place] [address] Dr. Rashmi Nolan LYMPH # 1.0 103/ul Critically low 1.2-3.8 [facility] Comment on above: Performed By: #### B MP #### [facility] [address] [place] [address] Dr. Rashmi Nolan Lymphocytes/100 WBC (Bld) 24.7 % Normal 20.5-60.0 [facility] Comment on above: Performed By: #### B MP #### [facility] [address] [place] [address] Dr. Rashmi Nolan MANUAL DIFF REQ NO Normal [facility] Comment on above: Performed By: #### B MP #### [facility] [address] [place] [address] Dr. Rashmi Nolan MCH (RBC) [Entitic mass] 33.0 pg Normal 25.9-34.0 [facility] Comment on above: Performed By: #### B MP #### [facility] [address] [place] [address] Dr. Rashmi Nolan MCHC (RBC) [Mass/Vol] 32.5 g/dL Normal 29.9-35.2 [facility] Comment on above: Performed By: #### B MP #### [facility] [address] [place] [address] Dr. Rashmi Nolan MCV (RBC) [Entitic vol] 101.5 fL Critically high 80.0-94.0 [facility] Comment on above: Performed By: #### B MP #### [facility] [address] [place] [address] Dr. Rashmi Nolan MONO # 0.4 103/ul Normal 0.3-0.8 [facility] Comment on above: Performed By: #### B MP #### [facility] [address] [address] [address] Rashmi Nolan Monocytes/100 WBC (Bld) 10.7 % Normal 1.7-12.0 [facility] Comment on above: Performed By: #### B MP #### [facility] [address] [address] [address] Rashmi Nolan NEUT # 2.1 103/ul Normal 1.4-6.5 [facility] Comment on above: Performed By: #### B MP #### [facility] [address] [address] [address] Rashmi Nolan Neutrophils/100 WBC (Bld) 55.7 % Normal 43.0-75.0 [facility] Comment on above: Performed By: #### B MP #### [facility] [address] [place] [address] Dr. Rashmi Nolan Platelet mean volume (Bld) [Entitic vol] 10.5 fL Normal 9.5-13.5 [facility] Comment on above: Performed By: #### B MP #### [facility] [address] [address] [address] Rashmi Nolan PLT 160 103/ul Normal 150-450 [facility] Comment on above: Performed By: #### B MP #### [facility] [address] [address] [address] Rashmi Nolan RBC 3.27 106/ul Critically low 4.70-6.10 [facility] Comment on above: Performed By: #### B MP #### [facility] [address] [address] [address] Rashmi Nolan WBC 3.8 103/ul Critically low 4.0-11.0 [facility] Comment on above: Performed By: #### B MP #### [facility] [address] [place], [place] [id number] Dr. Rashmi Nolan LIPID PROFILEon 08-16-2022 CHOL-HDL RATIO NORM SEE BELOW Normal [facility] Comment on above: Result Comment: 3.3 - 4.4 LOW RISK 4.4 - 7.1 AVERAGE RISK 7.1 - 11.0 MODERATE RISK >11.0 HIGH RISK Performed By: #### B MP #### [facility] [address] [address] [address] Rashmi Nolan Cholesterol [Mass/Vol] 166 mg/dL Normal <=200 [facility] Comment on above: Performed By: #### B MP #### [facility] [address] [address] [address] Rashmi Nolan Cholesterol in HDL [Mass/Vol] 42 mg/dL Normal 40-60 [facility] Comment on above: Performed By: #### B MP #### [facility] [address] [address] [address] Rashmi Nolan Cholesterol in LDL [Mass/Vol] 110.4 mg/dL Normal [facility] Comment on above: Performed By: #### B MP #### [facility] [address] [address] [address] Rashmi Nolan Cholesterol.total/Ch olesterol in HDL [Mass ratio] 4.0 {ratio} Normal [facility] Comment on above: Performed By: #### B MP #### [facility] [address] [address] [address] Rashmi Nolan HDL NORMAL > or = 60 mg/dl - LO W CARDIOVASCULAR RISK <40 mg/dl - HIGH CARDIOVASCULAR RISK Normal [facility] Comment on above: Performed By: #### B MP #### [facility] [address] [address] [address] Rashmi Nolan LDL CALC NORMAL SEE BELOW Normal [facility] Comment on above: Result Comment: <100 mg/dl OPTIMAL 100 - 129 mg/dl NEAR OR ABOVE OPTIMAL 130 - 159 mg/dl BORDERLINE HIGH 160 - 189 mg/dl HIGH >190 mg/dl VERY HIGH Performed By: #### B MP #### [facility] [address] [address] [address] Rashmi Nolan Triglyceride [Mass/Vol] 68 mg/dL Normal <=150 [facility] Comment on above: Performed By: #### B MP #### [facility] [address] [address] [address] Rashmi Nolan VLDL CALC 13.6 mg/dL Normal [facility] Comment on above: Performed By: #### B MP #### [facility] [address] [address] [address] Rashmi Nolan PROF 14(COMP METB)on 023 Albumin [Mass/Vol] 3.9 g/dL Normal 3.4-5.0 [facility] Comment on above: Performed By: #### B MP #### [facility] [address] [address] [address] Rashmi Nolan Albumin/Globulin [Mass ratio] 1.1 {ratio} Normal [facility] Comment on above: Performed By: #### B MP #### [facility] [address] [place] [address] Dr. Rashmi Nolan ALP [Catalytic activity/Vol] 190 U/L Critically high 46-116 [facility] Comment on above: Performed By: #### B MP #### [facility] [address] [place] [address] Dr. Rashmi Nolan ALT [Catalytic activity/Vol] 15 U/L Critically low 16-63 [facility] Comment on above: Performed By: #### B MP #### [facility] [address] [place] [address] Dr. Rashmi Nolan Anion gap [Moles/Vol] 15.2 mmol/L Normal [facility] Comment on above: Performed By: #### B MP #### [facility] [address] [place] [address] Dr. Rashmi Nolan AST [Catalytic activity/Vol] 17 U/L Normal 15-37 [facility] Comment on above: Performed By: #### B MP #### [facility] [address] [address] [address] Rashmi Nolan Bilirubin [Mass/Vol] 0.4 mg/dL Normal 0.2-1.0 [facility] Comment on above: Performed By: #### B MP #### [facility] [address] [place] [address] Dr. Rashmi Nolan Calcium [Mass/Vol] 10.0 mg/dL Normal 8.5-10.1 [facility] Comment on above: Performed By: #### B MP #### [facility] [address] [address] [address] Rashmi Nolan Chloride [Moles/Vol] 108 mmol/L Critically high 98-107 [facility] Comment on above: Performed By: #### B MP #### [facility] [address] [address] [address] Rashmi Nolan CO2 [Moles/Vol] 25.8 mmol/L Normal 21.0-32.0 [facility] Comment on above: Performed By: #### B MP #### [facility] [address] [address] [address] Rashmi Nolan Creatinine [Mass/Vol] 1.78 mg/dL Critically high 0.70-1.30 [facility] Comment on above: Performed By: #### B MP #### [facility] [address] [address] [address] Rashmi Nolan EGFR-AF KAZAKH 44 mL/min/1.73m2 Critically low >=60 [facility] Comment on above: Performed By: #### B MP #### [facility] [address] [address] [address] Rashmi Nolan EGFR-NON AF KAZAKH 36 mL/min/1.73m2 Critically low >=60 [facility] Comment on above: Performed By: #### B MP #### [facility] [address] [address] [address] Rashmi Nolan Globulin (S) [Mass/Vol] 3.7 g/dL Normal [facility] Comment on above: Performed By: #### B MP #### [facility] [address] [address] [address] Rashmi Nolan Glucose [Mass/Vol] 100 mg/dL Normal 74-106 [facility] Comment on above: Performed By: #### B MP #### [facility] [address] [address] [address] Rashmi Nolan Potassium [Moles/Vol] 5.0 mmol/L Normal 3.5-5.1 [facility] Comment on above: Performed By: #### B MP #### [facility] [address] [address] [address] Rashmi Nolan Protein [Mass/Vol] 7.6 g/dL Normal 6.4-8.2 [facility] Comment on above: Performed By: #### B MP #### [facility] [address] [address] [address] Rashmi Nolan Sodium [Moles/Vol] 144 mmol/L Normal 136-145 [facility] Comment on above: Performed By: #### B MP #### [facility] [address] [address] [address] Rashmi Nolan Urea nitrogen [Mass/Vol] 52.0 mg/dL Critically high 7.0-18.0 [facility] Comment on above: Performed By: #### B MP #### [facility] [address] [place] [address] Dr. Rashmi Nolan Urea nitrogen/Creatinine [Mass ratio] 29.2 mg/mg Normal [facility] Comment on above: Performed By: #### B MP #### [facility] [address] [address] [address] Rashmi Nolan Office Visiton 07-24-2022 Follow-up visit [id number] Ry Lerner 1935 M Date Provider Department Center 07/24/2022 ROYAL ENRIQUE [facility] No family history on file Level of Service:60732 MT OFFICE/OUTPATIENT ESTABLISHED LOW MDM 20-29 MIN Reason for Visit and Comments: Chest Pain [426140] Normal [facility] PROF CHEM 8 (BAS METB)on Anion gap [Moles/Vol] 13.3 mmol/L Normal [facility] Comment on above: Performed By: #### C BC #### [facility] [address] [address] [address] Rashmi Nolan Calcium [Mass/Vol] 10.1 mg/dL Normal 8.5-10.1 [facility] Comment on above: Performed By: #### C BC #### [facility] [address] [address] [address] Rashmi Nolan Chloride [Moles/Vol] 104 mmol/L Normal 98-107 [facility] Comment on above: Performed By: #### C BC #### [facility] [address] [address] [address] Rashmi Nolan CO2 [Moles/Vol] 28.7 mmol/L Normal 21.0-32.0 [facility] Comment on above: Performed By: #### C BC #### [facility] [address] [address] [address] Rashmi Nolan Creatinine [Mass/Vol] 1.87 mg/dL Critically high 0.70-1.30 [facility] Comment on above: Performed By: #### C BC #### [facility] [address] [place] [address] Dr. Rashmi Nolan EGFR-AF KAZAKH 42 mL/min/1.73m2 Critically low >=60 [facility] Comment on above: Performed By: #### C BC #### [facility] [address] [place] [address] Dr. Rashmi Nolan EGFR-NON AF KAZAKH 34 mL/min/1.73m2 Critically low >=60 [facility] Comment on above: Performed By: #### C BC #### [facility] [address] [place] [address] Dr. Rashmi Nolan Glucose [Mass/Vol] 101 mg/dL Normal 74-106 [facility] Comment on above: Performed By: #### C BC #### [facility] [address] [address] [address] Rashmi Nolan Potassium [Moles/Vol] 5.0 mmol/L Normal 3.5-5.1 [facility] Comment on above: Performed By: #### C BC #### [facility] [address] [address] [address] Rashmi Nolan Sodium [Moles/Vol] 141 mmol/L Normal 136-145 [facility] Comment on above: Performed By: #### C BC #### [facility] [address] [place] [address] Dr. Rashmi Nolan Urea nitrogen [Mass/Vol] 41.0 mg/dL Critically high 7.0-18.0 [facility] Comment on above: Performed By: #### C BC #### [facility] [address] [place] [address] Dr. Rashmi Nolan Urea nitrogen/Creatinine [Mass ratio] 21.9 mg/mg Normal [facility] Comment on above: Performed By: #### C BC #### [facility] [address] [place] [address] Dr. Rashmi Nolan COVID/FLU RT-PCRon SARS-CoV-2 (COVID-19) RNA ETELVINA+probe Ql (Unsp spec) Positive [employer] Other COVID/FLU RT-PCR Negative [employer] [facility] [employer] Other BNPon 02-15-2022 Natriuretic peptide B (Bld) [Mass/Vol] 1653.0 pg/mL Normal <=1,800.0 [facility] Comment on above: Performed By: #### C BC #### [facility] [address] [place] [address] Dr. Rashmi Nolan PROF CHEM 8 (BAS METB)on Anion gap [Moles/Vol] 15.8 mmol/L Normal [facility] Comment on above: Performed By: #### C BC #### [facility] [address] [place] [address] Dr. Rashmi Nolan Calcium [Mass/Vol] 9.6 mg/dL Normal 8.5-10.1 [facility] Comment on above: Performed By: #### C BC #### [facility] [address] [place] [address] Dr. Rashmi Nolan Chloride [Moles/Vol] 108 mmol/L Critically high 98-107 [facility] Comment on above: Performed By: #### C BC #### [facility] [address] [place] [address] Dr. Rashmi Nolan CO2 [Moles/Vol] 24.2 mmol/L Normal 21.0-32.0 [facility] Comment on above: Performed By: #### C BC #### [facility] [address] [address] [address] Rashmi Nolan Creatinine [Mass/Vol] 1.87 mg/dL Critically high 0.70-1.30 [facility] Comment on above: Performed By: #### C BC #### [facility] [address] [address] [address] Rashmi Nolan EGFR-AF KAZAKH 42 mL/min/1.73m2 Critically low >=60 [facility] Comment on above: Performed By: #### C BC #### [facility] [address] [address] [address] Rashmi Nolan EGFR-NON AF KAZAKH 34 mL/min/1.73m2 Critically low >=60 [facility] Comment on above: Performed By: #### C BC #### [facility] [address] [address] [address] Rashmi Nolan Glucose [Mass/Vol] 107 mg/dL Critically high 74-106 [facility] Comment on above: Performed By: #### C BC #### [facility] [address] [address] [address] Rashmi Nolan Potassium [Moles/Vol] 5.0 mmol/L Normal 3.5-5.1 [facility] Comment on above: Performed By: #### C BC #### [facility] [address] [address] [address] Rashmi Nolan Sodium [Moles/Vol] 143 mmol/L Normal 136-145 [facility] Comment on above: Performed By: #### C BC #### [facility] [address] [address] [address] Rashmi Nolan Urea nitrogen [Mass/Vol] 28.0 mg/dL Critically high 7.0-18.0 [facility] Comment on above: Performed By: #### C BC #### [facility] [address] [address] [address] Rashmi Nolan Urea nitrogen/Creatinine [Mass ratio] 15.0 mg/mg Normal [facility] Comment on above: Performed By: #### C BC #### [facility] [address] [address] [address] Rashmi Nolan APTTon 10-13-2021 aPTT Coag (Bld) [Time] 36.7 s High 25.0-35.0 [facility] Comment on above: Result Comment: ALL RESULTS [...] 0103 #### [facility] [address] [place] [address], [facility] BASIC METABOLIC PANELon 09-26 Calcium [Mass/Vol] 9.7 mg/dL Normal 8.6-10.3 [facility] Comment on above: Performed By: #### 0 0071, [id number], 51795, 62376 #### [facility] [address] [place] [address], [facility] Chloride [Moles/Vol] 108 mmol/L High 98-107 [facility] Comment on above: Performed By: #### 0 0071, 38231, 22940, 78705 #### [facility] [address] [place] [address], [facility] CO2 [Moles/Vol] 23 mmol/L Normal 21-31 [facility] Comment on above: Performed By: #### 0 0071, 43450, 70847, 60983 #### [facility] [address] [place] [address], [facility] Creatinine [Mass/Vol] 1.98 mg/dL High 0.70-1.30 [facility] Comment on above: Performed By: #### 0 0071, 20879, 84283, 28647 #### [facility] [address] [place] [address], [facility] eGFR- 39 ml/min/1.73sq m Abnormal >60 [facility] Comment on above: Result Comment: Calc ulation may not be valid for patients over 70 years Performed By: #### 0 0071, 79234, 84844, 29385 #### [facility] [address] [place] [address], [place] eGFR- non- 32 ml/min/1.73sq m Abnormal >60 [facility] Comment on above: Result Comment: Calc ulation may not be valid for patients over 70 years Performed By: #### 0 0071, 01554, 59199, 55380 #### [facility] [address] [place] [address], [place] Glucose [Mass/Vol] 88 mg/dL Normal 70-100 [facility] Comment on above: Performed By: #### 0 0071, 57083, 79191, 05956 #### [facility] [address] [place] [address], [place] Potassium [Moles/Vol] 4.8 mmol/L Normal 3.5-5.1 [facility] Comment on above: Performed By: #### 0 0071, 92979, 14015, 59900 #### [facility] [address] [place] [address], [place] Sodium [Moles/Vol] 138 mmol/L Normal 136-145 [facility] Comment on above: Performed By: #### 0 0071, 44058, 83533, 89015 #### [facility] [address] [place] [address], [place] Urea nitrogen [Mass/Vol] 46 mg/dL High 7-25 [facility] Comment on above: Performed By: #### 0 0071, 67824, 66532, 58430 #### [facility] [address] [place] [address], [place] BNP EDon 10-13-2021 Natriuretic peptide B (Bld) [Mass/Vol] 428 pg/mL High 0-100 [facility] Comment on above: Result Comment: Give n the appropriate clinical setting a BNP result of >100 pg/mL indicates congestive heart failure. Performed By: #### 3 0935 #### [facility] [address] [place] [address], [facility] CBC W/DIFFon 10-13-2021 ABS IMM GRANS 0.0 10*3/uL Normal 0.0-0.2 [facility] Comment on above: Performed By: #### 5 0103 #### [facility] [address] [place] [address], [facility] ABS NEUTROPHILS 2.8 10*3/uL Normal 1.6-7.6 [facility] Comment on above: Performed By: #### 5 0103 #### [facility] [address] [place] [address], [facility] Basophils (Bld) [#/Vol] 0.0 10*3/uL Normal 0.0-0.2 [facility] Comment on above: Performed By: #### 5 0103 #### [facility] [address] [place] [address], [facility] Basophils/100 WBC (Bld) 0.5 % Normal 0.0-1.0 [facility] Comment on above: Performed By: #### 5 0103 #### [facility] [address] [place] [address], [facility] Eosinophils (Bld) [#/Vol] 0.3 10*3/uL Normal 0.0-0.5 [facility] Comment on above: Performed By: #### 5 0103 #### [facility] [address] [address], [facility] Eosinophils/100 WBC (Bld) 7.4 % High 0.0-6.0 [facility] Comment on above: Performed By: #### 3 #### [facility] [address] [facility] Erythrocyte distribution width (RBC) [Ratio] 13.9 % Normal 11.5-15.0 [facility] Comment on above: Performed By: #### 102 #### [facility] [address] [facility]. [address] Hematocrit (Bld) [Volume fraction] 33.5 % Low 39.0-50.0 [facility] Comment on above: Performed By: #### 102 #### [facility] [address] [facility]. [address] Hemoglobin (Bld) [Mass/Vol] 11.4 g/dL Low 13.0-17.0 [facility] Comment on above: Performed By: #### 102 #### [facility] [address] [facility]. [address] [address] IMMATURE GRANS 0.2 % Normal 0.0-1.0 [facility] Comment on above: Performed By: #### 102 #### [facility] [address] [facility] [place] [address], [facility] Lymphocytes (Bld) [#/Vol] 0.9 10*3/uL Low 1.2-4.0 The [facility] Comment on above: Performed By: #### 5 3 #### [facility] [address] Lymphocytes/100 WBC (Bld) 20.1 % Normal 20.0-45.0 The [facility] Comment on above: Performed By: #### 3 #### [facility] [address] [facility] [place] [address], [facility] MCH (RBC) [Entitic mass] 33.1 pg High 27.0-33.0 The [facility] Comment on above: Performed By: #### 3 #### [facility] [address] [facility]. [address] MCHC (RBC) [Mass/Vol] 34.0 g/dL Normal 32.0-35.0 The [facility] Comment on above: Performed By: #### 3 #### [facility] [address] [facility]. [address] MCV (RBC) [Entitic vol] 97.4 fL Normal 82.0-98.0 The [facility] Comment on above: Performed By: #### 3 #### [facility] [address] [place] [address], [facility] Monocytes (Bld) [#/Vol] 0.4 10*3/uL Normal 0.1-1.0 The [facility] Comment on above: Performed By: #### 102 #### [facility] [address] [facility]. [address] MONOS 8.4 % Normal 5.0-12.0 The [facility] Comment on above: Performed By: #### 5 102 #### [facility] [address] Neutrophils/100 WBC (Bld) 63.4 % Normal 40.0-72.0 The [facility] Comment on above: Performed By: #### 3 #### [facility] [address] Nucleated RBC/100 WBC (Bld) [Ratio] 0 % Normal 0-0 The [facility] Comment on above: Performed By: #### 5 3 #### [facility] [address] [place] [address], [facility] PLAT CNT 116 10*3/uL Low 150-400 The [facility] Comment on above: Performed By: #### 5 3 #### [facility] [address] [place], [place] [id number] [place] [address] RBC (Bld) [#/Vol] 3.44 10*6/uL Low 4.20-5.70 The [facility] Comment on above: Performed By: #### 5 0103 #### [facility] [address] [place] [address], [facility] WBC (Bld) [#/Vol] 4.43 10*3/uL Normal 4.00-10.60 The [facility] Comment on above: Performed By: #### 5 0103 #### [facility] [address] [place], [place] [id number] [place] [address] Cardiovascular Lab Reporton 10-13-2021 Cardiovascular Lab Report [facility] Patient Name: Chang [facility] MR #: [id number] Physician: Royal Gandara MD Department of Service Date: 10/13/2021 Medicine Birthdate: 1935 Division of Room #: [facility] Cardiology Adult Cardiovascular Services [address] [address] Cardiovascular Laboratory Report PACEMAKER IMPLANT PROCEDURE NOTE DATE OF PROCEDURE: 10/13/2021 PERFORMING PHYSICIAN: Dr. Royal Gandara CONSENT: Patient LOCATION: EP Lab PROCEDURE PERFORMED: 1. Implantation of pacemaker ([employer]) 2. Ultrasound guided venous access INDICATIONS: [...] previously recommended a pacemaker, however, presented to [facility] ED with a ventricular rate in the 30s. He was subsequently transferred over to [facility] ED for a pacemaker placement. [...] using modified seldinger technique using a 5 Peruvian micro-puncture needle on one occasion and 0.35 wire was placed. Local infiltration of 1% Lidocaine was performed, and an incision was created in the left upper chest. Dissection was then performed using cautery down to the fascial plane above the muscle. A small pocket was created for the device. 6 Peruvian Safesheaths were placed over the wire. An active fixation [employer] pacing lead was then delivered through the 6Fsheath to the right ventricle. After confirmation of lead position on orthogonal views (HANSEN and SRI LANKAN) to confirm septal position, the screw was [...] immediate procedural complications were noted. Device info: [employer] Accolade MRI EL Model# L331 Serial# [id number] RV lead: Model# INGEVITY [id number] (59cms) Serial# [id number] Sensin.4mV Threshold: 0.6V@0.4ms Impedance: 598 Ohms POST [...] Gandara MD Date Trans: 10/13/2021 10:46 A/oscar [id number] cc: Jason Silva M.D. [address] [place] [id number] Normal The [facility] FRESH FROZEN PLASMA 1 UNITon 10-13-2021 PRODUCT CODE 1 E2701 Normal [facility] Comment on above: Order Comment: INR: 2.88 ,PTT: 36.7 at the time of order ;Indication: Other pacemaker placement Performed By: #### 8 7001 #### [address] PRODUCT STATUS 1 RE Normal [facility] Comment on above: Order Comment: INR: 2.88 ,PTT: 36.7 at the time of order ;Indication: Other pacemaker placement Result Comment: Resu lt changed by IF on 10/19/2021 01:00. The previous value was XM. Performed By: #### 8 7001 #### [facility] [address] [place] [address], [facility] UNIT ABO 1 O Normal [facility] Comment on above: Order Comment: INR: 2.88 ,PTT: 36.7 at the time of order ;Indication: Other pacemaker placement Performed By: #### 8 7001 #### [facility] [address] [place] [address], [facility] UNIT ID 1 [id number] Normal The [facility] Comment on above: Order Comment: INR: 2.88 ,PTT: 36.7 at the time of order ;Indication: Other pacemaker placement Performed By: #### 8 7001 #### [facility] [address] [place] [address], [facility] UNIT RH 1 Negative Normal The [facility] Comment on above: Order Comment: INR: 2.88 ,PTT: 36.7 at the time of order ;Indication: Other pacemaker placement Performed By: #### 8 7001 #### [facility] [address] [place] [address], [facility] LIVER BATTERYon 10-13-2021 Albumin [Mass/Vol] 4.0 g/dL Normal 3.5-5.7 [facility] Comment on above: Performed By: #### 0 0071, 96821, 19078, 01023 #### [facility] [address] [place] [address], [place] ALKALINE PHOSPH 137 IU/L High 34-104 The [facility] Comment on above: Performed By: #### 0 0071, 91729, 72041, 21384 #### [facility] [address] [place] [address], [place] ALT [Catalytic activity/Vol] 29 U/L Normal 7-52 The [facility] Comment on above: Performed By: #### 0 0071, 10433, 21593, 68969 #### [facility] [address] [place] [address], [place] AST [Catalytic activity/Vol] 22 U/L Normal 13-39 The [facility] Comment on above: Performed By: #### 0 0071, 20774, 77654, 70420 #### [facility] [address] [place] [address], [place] Bilirubin [Mass/Vol] 0.7 mg/dL Normal 0.3-1.0 The [facility] Comment on above: Performed By: #### 0 0071, 63057, 36154, 94190 #### [facility] [address] Bilirubin.direct [Mass/Vol] 0.1 mg/dL Normal 0.0-0.2 The [facility] Comment on above: Performed By: #### 0 0071, 10836, 55625, 14708 #### [facility] [address] Protein [Mass/Vol] 6.3 g/dL Normal 6.0-8.3 The [facility] Comment on above: Performed By: #### 0 0071, 83217, 86308, 63040 #### [facility] [address] [facility] [address] MAGNESIUM BLOODon 10-13-2021 Magnesium [Mass/Vol] 2.0 mg/dL Normal 1.9-2.7 The [facility] Comment on above: Performed By: #### 0 0071, 92728, 10776, 66199 #### [facility] [address] [facility]. [address] POC SARS COV2 ANTIGEN NEGATI VEon 10-13-2021 POC SARS COV2 ANTIGEN NEG Negative Normal NEGATIVE The [facility] Comment on above: Result Comment: Nega [...] antigen from SARS-CoV-2 in direct nasopharyngeal swab (HYDROELECTRIC PLANT [employer]UCTURAL ENGINEER) specimens from individuals who are suspected of [...] Accreditation. Performed By: #### 3 2044 #### [address] PORTABLE CHEST 1 VIEWon 09-26 PORTABLE CHEST 1 VIEW [facility] Department of Radiology [address] [place] [id number] Patient Name: RY LERNER : 1935 Sex: M Age: Race: White Pt. Location: [facility] Patient Status: E Ordered Date: [...] report. Electronically signed: Mark Aguilar. Transcribed by: [email or web address], User Resident: HUMBLE HERNANDEZ Electronically Signed by: MARK AGUILAR @ 10/13/2021 05:55 AM I personally read this/these film(s) with this resident Normal The [facility] Comment on above: Order Comment: evalu ate for Infiltrates PROTHROMBIN TIMEon 2 INR Coag (PPP) [Relative time] 2.88 {INR} High 0.91-1.16 The [facility] Comment on above: Result Comment: ACCC [...] CHEST 1995;108:231S-246S. Performed By: #### 5 6101, [address]67[address] #### [address] PT Coag (PPP) [Time] 30.0 s High 12.3-14.8 [facility] Comment on above: Result Comment: ALL RESULTS MUST BE INTERPRETED WITH RESPECT TO BLOOD DRAWING ARTIFACT OR DILUTION ERROR OF ANTICOAGULANT AT THE TIME OF SAMPLING. Performed By: #### 5 6101, 71574 #### [facility] [address] TROPONIN-Ion 10-13-2021 Troponin I.cardiac [Mass/Vol] 0.05 ng/mL High 0.00-0.04 [facility] Comment on above: Result Comment: REFE RENCE RANGES: 0.00 - 0.04 ng/ml NORMAL 0.05 - 0.50 ng/ml INDETERMINATE > 0.50 ng/ml CONSISTENT WITH AN M.I. Performed By: #### 0 0071, 74635, 13754, 56253 #### [facility] [address] TYPE AND SCREENon 10-13-2021 ABO INTERPRETATION O Normal [facility] Comment on above: Performed By: #### 5 0103 #### [facility] [address] [place] [address], [facility] RH INTERPRETATION Positive Normal The [facility] Comment on above: Performed By: #### 5 0103 #### [facility] [address] [place], [place] [id number] [place] [address] Vital Signs Date Time Vital Sign Value Performing Clinician Facility 09-30-2023 14:26-0500 Blood Pressure Location Mary Jane Garza [facility] 09-30-2023 14:26-0500 Body temperature 95.72 [degF] Mary Jane Garza [facility] 09-30-2023 14:26-0500 Diastolic blood pressure 57 mm[Hg] Mary Jane Garza [facility] 09-30-2023 14:26-0500 Heart rate 60 /min Mary Jane Garza [facility] 09-30-2023 14:26-0500 Respiratory rate 16 /min Mary Jane Walshli [facility] 09-30-2023 14:26-0500 Systolic blood pressure 114 mm[Hg] Mary Jane Garza [facility] 06-02-2022 14:50-0400 Body height 182.88 cm Sonja Gilbertler Other [employer] Other 06-02-2022 14:50-0400 Body mass index (BMI) [Ratio] 29.73 kg/m2 Sonja Aden Other [employer] Other 06-02-2022 14:50-0400 Body temperature 99.6 [degF] Sonja Aden Other [employer] Other 06-02-2022 14:50-0400 Body weight 99.43 kg Sonja Aden Other [employer] Other 06-02-2022 14:50-0400 Diastolic blood pressure 54 mm[Hg] Sonja Aden Other [employer] Other 06-02-2022 14:50-0400 Respiratory rate 18 /min Sonja Aden Other [employer] Other 06-02-2022 14:50-0400 SaO2% (BldA) [Mass fraction] 95 % Sonja Aden Other [employer] Other 06-02-2022 14:50-0400 Systolic blood pressure 118 mm[Hg] Sonja Aden Other [employer] Other Encounters Encounter Date Encounter Type Care Provider Facility Start: 10-02-2023 End: 10-03-2023 ambulatory Sheng L Brissa Facility: [facility] Start: 09-30-2023 End: 10-01-2023 ambulatory Sheng L Brissa Facility:[facility] Start: 09-30-2023 End: 09-30-2023 Patient encounter procedure Mary Jane Garza [facility] Start: 09-09-2023 End: 09-10-2023 ambulatory Petros eLe MD Facility: [facility] Start: 09-04-2023 ambulatory Sheng L Brissa Facility: [facility] Start: 09-03-2023 End: 09-04-2023 ambulatory Sheng L Brissa Facility:[facility] Start: 08-29-2023 End: 08-29-2023 ambulatory ADDIE A FELTER Not Available Start: 08-29-2023 Bamboo flow[address] A Fel [address] VP [employer]EL[employer] Work Phone: [facility] Start: 08-29-2023 Bamboo flowsheet [address]ie A Fel ter VP [employer] DEVELOPER Work Phone: [facility] Start: 08-29-2023 End: 08-29-2023 Office outpatient new 30 minutes Addie A Felter VP [employer]EL[employer] Work Phone: [facility] Comment on above: Other atopic dermati tis (Primary Dx); Seborrheic keratosis Start: 08-28-2023 End: 08-29-2023 ambulatory John Nieves Facility: [facility] Start: 07-03-2023 End: 07-04-2023 ambulatory Sheng L Brissa Facility: [facility] Start: 07-02-2023 End: 07-02-2023 ambulatory [facility] Start: 05-15-2023 End: 05-15-2023 ambulatory [facility] Start: 02-08-2023 End: 02-08-2023 ambulatory [facility] Start: 01-22-2023 End: 01-23-2023 ambulatory Sheng L Brissa Facility:[facility] Start: 01-22-2023 End: 01-22-2023 Lab Drop off Sheng L Brissa [facility] Start: 12-31-2022 End: 12-31-2022 ambulatory Ward Riki Linn Facility:[facility] Start: 12-25-2022 End: 12-26-[address] JASON SILVA . Facility:[facility] Start: 12-21-2022 End: 12-22-2022 ambulatory [facility] L [facility] Start: 12-17-2022 End: 01-16-2023 ambulatory Sheng L Brissa Facility:[id number] Start: 12-12-2022 End: 12-14-2022 Evaluation and management of inpatient DR JASON SILVA . Facility: Start: 12-11-2022 End: 12-12-2022 ambulatory Sheng L Brissa Facility:[facility] Start: 12-11-2022 End: 12-11-2022 Lab Drop off Sheng L Brissa [facility] Start: 12-10-2022 End: 12-10-2022 [facility] Start: 11-27-2022 End: 11-27-2022 ambulatory ROYAL GANDARA [facility] Start: 11-26-2022 End: 12-26-2022 ambulatory SHAIKH Joe JUNIOR Facility: Start: 11-06-2022 End: 11-07-[address] JASON SILVA . Facility:[facility] Start: 11-06-2022 End: 11-06-2022 ambulatory SOLIS VALLES [facility] Start: 10-29-2022 End: 11-23-2022 ambulatory [...] Start: 07-24-2022 End: 07-24-2022 ambulatory ROYAL GANDARA [facility] Start: 06-28-2022 End: 07-29-2022 ambulatory SHAIKH Joe STEPHENSWAD Facility:[facility] Start: 06-02-2022 End: 06-02-2022 ambulatory Sonja Aden Other [employer] Other Start: 06-02-2022 Office outpatient ne w [...] 10-13-2021 Emergency department patient visit PHYSICIAN UNKNOWN Facility:[facility] Procedures Date Procedure Procedure Detail [...] above: Performed By: #### B MP #### [facility] [address] [place] [address] Dr. Rashmi Nolan Start: 10-13-2021 Antibody screen PHYSICI AN UNKNOWN Comment on above: Performed By: #### 5 0103 #### [facility] [address] Start: 09-26-2021 Cardiac pacemaker, d evice [...] [address] [place] [id number] Addie Huston, VP [employer] DEVELOPER [address] [place] [address] Arrived [facility] Comment on above: Arrived Immunizations Immunization Date Immunization Notes Care Provider Fa cili 08-02-2023 zoster vaccine recombinant Mohamad Mouchli [facility] 07-03-2023 influenza virus vaccine, unspecified formulation Mohamad Mouchli [facility] 07-03-2023 pneumococcal 20-aurelio nt conjugate vaccine Mohamad Mouchli [facility] 05-02-2022 influenza virus vaccine, unspecified formulation Sheng Brissa [facility] 05-02-2022 Seasonal trivalent influenza vaccine, adjuvanted, preservative free [facility]ie Huston [facility] Work Phone: [facility] 04-28-2021 SARS-CoV-2 (COVID-19 ) mRNA-1273 vaccine Mohamad Mouchli [facility] 09-17-2020 SARS-CoV-2 (COVID-19 ) mRNA BNT-162b2 vax Sheng Brissa [facility] Comment on above: Result Comment: 2022: [id number] 08-27-2020 SARS-CoV-2 (COVID-19 ) mRNA BNT-162b2 vax Sheng Brissa [facility] Comment on above: Result Comment: 2022: [id number] 06-13-2020 influenza virus vaccine, unspecified formulation Sheng Brissa [facility] 06-01-2019 influenza virus vaccine, unspecified formulation Sheng Brissa [facility] 04-14-2018 influenza virus vaccine, unspecified formulation Sheng Brissa [facility] 04-22-2017 influenza virus vaccine, unspecified formulation Sheng Brissa [facility] 05-01-2016 influenza virus vaccine, unspecified formulation Sheng Brissa [facility] 06-02-2015 influenza virus vaccine, unspecified formulation Sheng Brissa [facility] 05-31-2014 influenza virus vaccine, unspecified formulation Sheng Brissa [facility] 06-02-2013 influenza virus vaccine, unspecified formulation Sheng Brissa [facility] 05-29-2005 influenza, whole Sheng Brissa [facility] Payers Date Payer Category Payer Unknown [facility] 1999 Medicare [id number] 1959 Medicare [id number] 1934 Unknown [id number] 2.16.8 40.1.426130.3.579.2.647 1934 Unknown [id number] 2.16. 840.1.069353.3.579.2.732 1934 Unknown [id number] 2.16. 840.1.253261.3.579.2.732 1934 Unknown [id number] 2.16.8 40.1.700554.3.579.2.718 1934 Unknown [id number] 2.16.8 40.1.459988.3.579.2.718 1934 Unknown [id number] 2.16.84 0.1.886474.3.579.2.593 1934 Unknown [id number] 2.16.84 0.1.850480.3.579.2.593 1934 Unknown [id number] 2.16.84 0.1.683104.3.579.2.593 1934 Unknown [id number] 2.16.84 0.1.214546.3.579.2.593 1934 Unknown [id number] 2.16.84 0.1.069724.3.579.2.593 1934 Unknown [id number] 2.16.84 0.1.597684.3.579.2.593 1934 Unknown [id number] 2.16.84 0.1.106167.3.579.2.593 1934 Unknown [id number] 2.16.84 0.1.109560.3.579.2.593 1934 Unknown [id number] 2.16.84 0.1.479364.3.579.2.593 1934 Unknown [id number] 2.16.84 0.1.428196.3.579.2.593 1934 Unknown [id number] 2.16.84 0.1.306542.3.579.2.593 1934 Unknown [id number] 2.16.84 0.1.788021.3.579.2.593 1934 Unknown [id number] 2.16.84 0.1.114582.3.579.2.593 1934 Unknown [id number] 2.16.84 0.1.351746.3.579.2.593 1934 Unknown [id number] 2.16.84 0.1.961212.3.579.2.593 1934 Unknown [id number] 2.16.84 0.1.087003.3.579.2.593 1934 Unknown [id number] 2.16.84 0.1.994815.3.579.2.593 193 Unknown [id number] 2.16.84 0.1.113890.3.579.2.593 1934 Unknown [id number] 2.16.84 0.1.028451.3.579.2.1259 1934 Unknown [id number] 2.16. 840.1.855269.3.579.2.196 1934 Unknown [id number] 2.16.8 40.1.545654.3.579.2.727 193 Unknown [id number] 2.16.8 40.1.317110.3.579.2.727 1934 Unknown [id number] 2.16.8 40.1.105816.3.579.2.727 1934 Unknown [id number] 2.16.8 40.1.211861.3.579.2.727 1934 Unknown [id number] 2.16.8 40.1.239430.3.579.2.727 1934 Unknown [id number] 2.16.8 40.1.881526.3.579.2.727 1934 Unknown [id number] 2.16.8 40.1.889048.3.579.2.727 193 Unknown [id number] 2.16.8 40.1.596272.3.579.2.727 1934 Unknown [id number] 2.16.8 40.1.130857.3.579.2.727 1934 Unknown [id number] 2.16.8 40.1.622811.3.579.2.727 1934 Unknown [id number] 2.16.8 40.1.840428.3.579.2.727 Social History Date Type Detail Facility Unknown if ever smoked [employer] Other Start: 02-05-2023 End: 08-29-2023 Sex Assigned At [facility] Start: 12-11-2022 End: 12-13-2022 Tobacco smoking status Never smoked tobacco (finding) [facility] Tobacco smoking status Never [facility] Comment on above: Quit in 2002 Start: 01-22-2023 End: 09-30-2023 Tobacco smoking status Ex-smoker (finding) [facility] Comment on above: Quit in 2002 Start: 12-13-2022 Tobacco use and exposure Smokeless tobacco non-user [facility] Start: 02-05-2023 End: 08-29-2023 Alcohol intake Current drinker of alcohol (finding) [facility] Start: 02-05-2023 End: 08-29-2023 History of Social function [facility] Start: 1935 Sex Assigned At Not on file [facility] Functional Status Date Assessment Result Facility 09-30-2023 Functional Status N/A [facility] Clinical Notes 10-13-2021 to 08-29-2023 Addie Huston, VP SECURITIES-[employer]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 Device check performed on 06/12/2022 shows thresholds to be good. he is in persistent A. Fib and underwent a single-chamber pacemaker. with [employer] on 10/13/2021 and paced 65% Echocardiogram performed [...] stress test about 12 years ago in [place], and was in hospital with noted a fib currently on coumadin anticoagulation. Echocardiogram performed on 11/30/2020 at [facility] shows an ejection fraction of [...] mg DR lindsay (more content not included)... [facility] 05-15-2023 Note Patient here for 3 [...] All other systems reviewed and are negative. [facility] 02-18-2023 Note Stable -ct medications [facility] 02-18-2023 Note [id number]: at [facility] 3 for age and htn -restart warfarin, will follow coumadin clinic here at [facility] -is to report any concerns for bleeding -follow up in 2 months to discuss how he is doing -patient prefers to not consider watchmen if he does not have to [facility] 02-08-2023 Note Patient here for [facility] for GI bleed. He was discharged on 12/14 and coumadin was put on hold. Denies chest pain, SOB, and palpitations. Lost his recently. Review of Systems Musculoskeletal: Positive for arthritis, joint pain and muscle cramps. Neurological: Positive for numbness. All other systems reviewed and are negative. [facility] 02-08-2023 Note [facility]iology Consul t Note Reason for visit: Afib. S/p PPM HPI: Ry Lerner is a 87 y.o. 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 Device check performed on 06/12/2022 shows thresholds to be good. he is in persistent A. Fib and underwent a single-chamber pacemaker. with [employer] on 10/13/2021 and paced 65% Echocardiogram [...] stress test about 12 years ago in [place], and was in hospital with noted a fib currently on coumadin anticoagulation. Echocardiogram performed on 11/30/2020 at [facility] shows an ejection fraction of [...] No current facility (more content not included)... [facility] 01-01-2023 Note [id number] 01-01-2023 Note [id number] 12-31-2022 Note [facility] SURGERY Clinical Discharge Summary PERSON INFORMATION Name RY LERNER Age 87 Years 1935 Sex MALE Language Beninese PCP Ezequiel CHAMBERS, John Rodríguez Marital Status Med Service Ambulatory Surgery Acct# Arrival 12/31/2022 08:09:06 Visit Reason SURGERY - RIGHT CARPAL TUNNEL RELEASE Acuity LOS 039 21:33 Address: [address] [place] [id number] Comment: PROVIDER INFORMATION VITALS INFORMATION Vital Sign [...] release capsule) 1 cap(s) Oral every day. Broadview's wort (Lindsey's wort oral tablet) 1 tab(s) [...] release capsule) 1 cap(s) Oral every day. Broadview's wort (Lindsey's wort oral tablet) 1 tab(s) [...] 1 cap(s) Oral every day. Lindsey's wort (Broadview's wort oral tablet) 1 tab(s) Oral 2 [...] REASON INCOMPLETE INFORMATION PATIENT EDUCATION INFORMATION Instructions: Linn- Post Op Carpal Tunnel (CUSTOM) Follow up: With: Address: When: MARJ PEREZ [address] [place] [address], [address] [place] [address] [facility] (1) 01/09/2023 11:00 AM DIAGNOSIS Carpal tunnel syndrome, right Comment: PHYS DOC NOTES [facility] 12-31-2022 Note Procedure: Decompres mary [...] on: 12/31/2022 09:43 EDT] Ward Martinez DO [facility] 12-25-2022 Note [id number] [facility] 12-12-2022 Note [id number] [facility] 12-10-2022 Note procedure: Decompres mary [...] on: 12/10/2022 15:46 EDT] Ward Martinez DO [facility] 12-10-2022 Note [facility] SURGERY Clinical Discharge Summary PERSON INFORMATION Name RY LERNER Age 87 Years 1935 Sex MALE Language Beninese PCP Ezequiel CHAMBERS, John Rodríguez Marital Status [facility] Service Ambulatory Surgery Acct# Arrival 12/10/2022 13:13:28 Visit Reason SURGERY - LEFT CARPAL TUNNEL RELEASE Acuity LOS 019 02:57 Address: [address] [place] [address] Comment: PROVIDER INFORMATION VITALS INFORMATION Vital Sign [...] Restrictions: DISCHARGE INFORMATION Discharge Disposition: Discharge Location: [facility] REASON INCOMPLETE INFORMATION PATIENT EDUCATION INFORMATION Instructions: Juan- Post Op Carpal Tunnel (CUSTOM) Follow up: With: Address: When: Ward Martinez [address] [place] [address], [address] [place] [address] [facility] (1) 12/18/2022 1:30 PM Type Location Start [facility] Surgery ([facility] Main OR 12/31/2022 7:30 AM 12/31/2022 8:00 AM Confirmed DIAGNOSIS Carpal tunnel syndrome of left wrist Comment: PHYS DOC NOTES [facility] 11-06-2022 Note Cardiology Clinic No te Subjective Ry Lerner is a 87 y.o. 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 Echocardiogram performed on 11/30/2020 at [facility] shows an ejection fraction of [...] falls and he has been in the prison lately. Device check performed on 06/12/2022 shows thresholds to be good. he is in persistent A. Fib and underwent a single-chamber pacemaker. with [employer] on 10/13/2021 and paced 65% Echocardiogram [...] LV systolic funct (more content not included)... [facility] 11-06-2022 Note Patient here for 4 [...] All other systems reviewed and are negative. [facility] 07-24-2022 Note [facility] Consul t Note Reason for visit: [...] falls and he has been in the prison lately. Device check performed on 06/12/2022 shows thresholds to be good. he is in persistent A. Fib and underwent a single-chamber pacemaker. with [employer] on 10/13/2021 and paced 65% Echocardiogram [...] stress test about 12 years ago in [place], and was in hospital with noted a fib currently on coumadin anticoagulation. Echocardiogram performed on 11/30/2020 at [facility] shows an ejection fraction of [...] Murmur: not hea (more content not included)... [facility] 07-24-2022 Note Review of Systems Cardiovascular: [...] the day. Also has questions about medications [facility] 06-02-2022 Evaluation note Encounter Date Diagnosis [...] treatment plan. Patient left in stable condition [employer] [facility] [employer] Other [phone] History general Narrative - Reported* Type Description Date Medical History HYPERTENSION Medical History STROKE Medical History HEAD INJURY Surgical History PACEMAKER 10/13/2021 Surgical History HERNIA X 2 Surgical History TONSILECTOMY Hospitalization History SEE ABOVE [employer] Other Evaluation + Plan note No data [facility] for this [facility] Future Appointments Appointment Date:08/27/2023 09:30:00 AM Scheduled Provider: Location:[facility] Appointment Type: Medicare Wellness Subsequent [facility] Future Appointments Appointment Date:10/02/2023 10:00:00 AM Scheduled Provider:Sheng Simms Location:[facility] Appointment Type: Open Future Scheduled Tests Laboratory* Alkaline Phosphatase Isoenzymes 09/30/23 * H. pylori Stool Ag 09/30/23 * Ferritin 09/30/23 * Iron Level 09/30/23 [facility] Evaluation note* Diagnosis Other atopic dermatitis- Primary Seborrheic keratosis documented in this encounter [facility] No data available for this section [facility] No data available for this section [facility] Summary Purpose Family History No Family History [...] and content) DATE CREATED AUTHOR 01/26/2022 [facility] DATE CREATED AUTHOR AUTHOR'S ORGANIZ ATION 04/25/2022 [facility] DATE CREATED AUTHOR AUTHOR'S ORGANIZ ATION 01/06/2023 [facility] DATE CREATED AUTHOR AUTHOR'S ORGANIZ ATION 01/06/2023 [facility] DATE CREATED AUTHOR AUTHOR'S ORGANIZ ATION 07/04/2023 [facility] DATE CREATED AUTHOR AUTHOR'S ORGANIZ ATION 08/31/2023 [facility] DATE CREATED AUTHOR AUTHOR'S ORGANIZ ATION 09/15/2023 [facility] DATE CREATED AUTHOR AUTHOR'S ORGANIZ ATION 10/17/2023 [facility] REASON FOR VISIT (unrecogniz ed section and content) Reason Comments Rash Specialty Diagnoses / Procedures Referred By Daniel t Referred To Contact Dermatology Diagnoses eczema / skin changes texture changes Sheng Rey MD [address] [place] [address] Rebecca Conley MD [address] [place] [address] Referral ID Status Reason Start Date Expiration Date Visits Re quested Visits Authorized [id number] Closed 07/05/2023 01/01/2024 1 1 Patient Care team informatio n (unrecognized section and content) [employer] Executive Relationship Specialty Start Date End Date Jason Silva MD [address] [place] [phone] PCP - General Family Medicine 12/10/22 [employer] Relationship Specialty Start Date End Date Jason Silva MD [address] [place] [phone] PCP - General Family Medicine 12/10/22 [...] THE PRIMARY CLINICAL RECORDS. [facility] [employer] [facility] provides no warranty or guarantee of the accuracy or completeness of information in this document.
--- NOTE | 2023-10-21 07:24 | ED.EPISTAXI1 ---
HPI - Epistaxis General Chief Complaint: Recheck/Abnormal Lab/Rx Stated Complaint: NASAL TUBE REMOVED Time Seen by Provider: 10/21/23 07:12 Source: patient Mode of arrival: walk-in History of Present Illness HPI Narrative: 88-year-old male presented as instructed to the emergency department for nasal packing removal. He had this packed 3 days ago and at that time was found to have an elevated INR. He has not taken Coumadin since then. He has not had any bleeding. Related Data Home Medications ?Medication ?Instructions ?Recorded ?Confirmed amlodipine 5 mg tablet 5 mg PO DAILY 09/09/23 10/18/23 furosemide 40 mg tablet 40 mg PO DAILY 09/09/23 10/18/23 lisinopril 20 mg tablet 10 mg PO DAILY 09/09/23 10/18/23 omeprazole 40 mg capsule,delayed 40 mg PO DAILY 09/09/23 10/18/23 release warfarin 5 mg tablet 5 mg PO DAILY 09/09/23 10/18/23 Allergies Allergy/AdvReac Type Severity Reaction Status Date / Time No Known Drug Allergies Allergy Verified 09/09/23 15:06 Review of Systems ROS Narrative A ten point review of systems is negative except as noted above. Exam Narrative Exam Narrative: Nurses note and vital signs reviewed and patient is not hypoxic. General: The patient appears well and in no apparent distress. Patient is resting comfortably on cart. Skin: Warm, dry, no pallor noted. There is no rash noted. Head: Normocephalic, atraumatic Eye: Normal conjunctiva, no drainage Ears, Nose, Mouth, and Throat: oral mucosa is moist. Packing pleasant on the right side Cardiovascular: Not tachycardic Respiratory: Patient is in no distress, no accessory muscle use Back: non-tender GI: Soft and nontender Musculoskeletal: The patient has no evidence of calf tenderness, symmetrical pulses noted bilaterally Neurological: A&O, normal speech Psychiatric: Cooperative Constitutional Vital Signs, click to edit/add: Last Vital Signs Temp 98.0 F 10/21/23 07:11 Pulse 72 10/21/23 08:21 Resp 18 10/21/23 08:21 BP 132/70 10/21/23 08:21 Pulse Ox 98 10/21/23 08:21 O2 Del Method Room Air 10/21/23 07:11 Course Vital Signs Vital signs: Vital Signs Temperature 98.0 F 10/21/23 07:11 Pulse Rate 74 10/21/23 07:11 Respiratory Rate 18 10/21/23 07:11 Blood Pressure 138/62 10/21/23 07:11 Pulse Oximetry 100 10/21/23 07:11 Oxygen Delivery Method Room Air 10/21/23 07:11 Temperature 98.0 F 10/21/23 07:11 Pulse Rate 72 10/21/23 08:21 Respiratory Rate 18 10/21/23 08:21 Blood Pressure 132/70 10/21/23 08:21 Pulse Oximetry 98 10/21/23 08:21 Oxygen Delivery Method Room Air 10/21/23 07:11 MDM - Epistaxis MDM Narrative Medical decision making narrative: I removed the nasal packing and immediately it started bleeding again. I therefore placed a 7.5 cm AP pack. This greatly slowed down the bleeding but he continued to have some bleeding so I removed it and placed Vaseline gauze which achieved good hemostasis. has communicated with the ENT office and appointment was given in 2 days which she will keep. Treatment diagnosis and follow-up were discussed thoroughly. Differential Diagnosis Differential diagnosis: Likely anterior epistaxis and posterior epistaxis Lab Data Attestation: I reviewed the patient's lab results. Labs: Lab Results 10/21/23 Range/Units 07:30 WBC 5.2 (4.0-11.0) 10^3/uL RBC 2.99 L (4.70-6.10) 10^6/uL Hgb 9.4 L (14.0-18.0) g/dL Hct 30.0 L (42.0-54.0) % MCV 100.3 H (80.0-94.0) fL MCH 31.4 (25.9-34.0) pg MCHC 31.3 (29.9-35.2) g/dL RDW 13.7 (11.0-15.0) % Plt Count 142 L (150-450) 10^3/uL MPV 10.3 (9.5-13.5) fL Neut % (Auto) 78.8 H (43.0-75.0) % Lymph % (Auto) 10.8 L (20.5-60.0) % [place] % (Auto) 7.7 (1.7-12.0) % Eos % (Auto) 2.1 (0.9-7.0) % Baso % (Auto) 0.4 (0.2-2.0) % Neut # (Auto) 4.1 (1.4-6.5) 10^3/uL Lymph # (Auto) 0.6 L (1.2-3.8) 10^3/uL [place] # (Auto) 0.4 (0.3-0.8) 10^3/uL Eos # (Auto) 0.1 (0.0-0.7) 10^3/uL Baso # (Auto) 0.0 (0.0-0.1) 10^3/uL Abs Immat Gran (auto) 0.01 (0.00-0.03) 10^3/uL Imm/Tot Granulo (auto) 0.2 (0.0-0.5) % PT 14.3 H (9.0-11.6) sec INR 1.37 Sodium 141 (136-145) mmol/L Potassium 5.0 (3.5-5.1) mmol/L Chloride 104 (98-107) mmol/L Carbon Dioxide 26.3 (21.0-32.0) mmol/L Anion Gap 15.7 BUN 35.0 H (7.0-18.0) mg/dL Creatinine 1.80 H (0.70-1.30) mg/dL Est GFR ( Amer) 43 L (>=60) Est GFR (Non-Af Amer) 36 L (>=60) BUN/Creatinine Ratio 19.4 Glucose 113 H (74-106) mg/dL Calcium 10.3 H (8.5-10.1) mg/dL Discharge Plan Discharge Stand Alone Forms: Portal Instructions Chief Complaint: Recheck/Abnormal Lab/Rx Clinical Impression: Epistaxis Patient Disposition: Home, Self-Care Time of Disposition Decision: 10:07 Condition: Good Mode of Transportation: Private Vehicle Prescriptions / Home Meds: No Action amlodipine 5 mg tablet 5 mg PO DAILY lisinopril 20 mg tablet 10 mg PO DAILY warfarin 5 mg tablet 5 mg PO DAILY furosemide 40 mg tablet 40 mg PO DAILY omeprazole 40 mg capsule,delayed release(DR/EC) 40 mg PO DAILY Print Language: Thai Instructions: Nosebleed (ED) Additional Instructions: See Dr. Salazar at your appointment in 2 days. No Coumadin until cleared by him. Referrals: SHENG LAGOS [Primary Care Provider] - 1 week Procedures ED Procedure Instructions Procedures Procedures: I removed the nasal packing and immediately he had bleeding. I have repacked him with 7.5 cm AP packing. Hemostasis achieved.
[2023-10-21 07:38] LABS: Basophils Percent Auto 0.4 % (0.2-2.0); Eosinophils Absolute Auto 0.1 10^3/uL (0.0-0.7); Eosinophils Percent Auto 2.1 % (0.9-7.0); Hemoglobin 9.4 g/dL (14.0-18.0); Immature Granulocytes Abs Auto 0.01 10^3/uL (0.00-0.03); Immature Granulocytes Pct Auto 0.2 % (0.0-0.5); Lymphocytes Absolute Auto 0.6 10^3/uL (1.2-3.8); Lymphocytes Percent Auto 10.8 % (20.5-60.0); Mean Corpuscular HGB Conc 31.3 g/dL (29.9-35.2); Mean Corpuscular Hemoglobin 31.4 pg (25.9-34.0); Mean Corpuscular Volume 100.3 fL (80.0-94.0); Mean Platelet Volume 10.3 fL (9.5-13.5); Monocytes Absolute Auto 0.4 10^3/uL (0.3-0.8); Monocytes Percent Auto 7.7 % (1.7-12.0); Neutrophils Absolute Auto 4.1 10^3/uL (1.4-6.5); Neutrophils Percent Auto 78.8 % (43.0-75.0); Platelet Count 142 10^3/uL (150-450); Red Blood Count 2.99 10^6/uL (4.70-6.10); Red Cell Distribution Width 13.7 % (11.0-15.0); White Blood Count 5.2 10^3/uL (4.0-11.0)
[2023-10-21] MEDS: ACETAMINOPHEN 325 MG TABLET 650 MG PO (07:40)
[2023-10-21 07:47] LABS: Anion Gap 15.7; BUN Creatinine Ratio 19.4; Calcium 10.3 mg/dL (8.5-10.1); Carbon Dioxide 26.3 mmol/L (21.0-32.0); Chloride 104 mmol/L (98-107); Estimated GFR (African America 43 (>=60); Estimated GFR (Non-African Ame 36 (>=60); Glucose 113 mg/dL (74-106); Sodium 141 mmol/L (136-145)
[2023-10-21 07:52] LABS: INR 1.37; Prothrombin Time 14.3 sec (9.0-11.6)
[2023-10-21 08:21] VITALS: BP 132/70; PULSE 72; RESP 18; O2SAT 98
== END 2023-10-21 10:20 | disposition home or self-care (01) ==
PROVIDERS: Emergency Provider Emergency Medicine; PCP Nurse Practitioner
DX: R04.0 Epistaxis (principal); Z79.899 Other long term (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 therapy; Z79.01 Long term (current) use of anticoagulants
CPT/HCPCS: 30901; 36415; 80048; 85025; 85610; 99283

== ENCOUNTER 2023-10-28 03:22 | Outpatient (RCR) | payer MEDICARE, SELFPAY | END 2023-11-26 18:14 | disposition home or self-care (01) | LOC: MM 03:22 | PROVIDERS: PCP Nurse Practitioner; Visit Provider Internal Medicine | DX: Z51.81 Encounter for therapeutic drug level monitoring (principal); Z79.01 Long term (current) use of anticoagulants; I48.91 Unspecified atrial fibrillation | CPT/HCPCS: 85610; G0463 ==

== ENCOUNTER 2023-11-14 08:11 | Outpatient (OUT) | payer MEDICARE, SELFPAY ==
--- NOTE | 2023-11-14 08:16 | CT_ITS ---
[address] [address] Patient Name: THIERRY LERNER MRN: [id number] date: 1935 Sex: M Assigned Patient Location: CT Current Patient Location: CT Accession/Order Number: [id number] Exam Date: 11/14/2023 09:08 Report Date: 11/14/2023 16:42 At the request of: SHENG LAGOS Procedure: CT abdomen pelvis wo/w con EXAMINATION: CT abdomen pelvis wo/w con HISTORY: Liver Nodule K76.89, Pancreas Cyst K86.2 COMPARISON: Ultrasound right upper quadrant 09/10/2023, ultrasound kidneys 09/10/2023, CT abdomen 08/19/2016 TECHNIQUE: Axial, Coronal, and Sagittal images were obtained without and/or with IV contrast as indicated by examination type. Dose reduction techniques were achieved by using automated exposure control and/or adjustment of mA and/or kV according to patient size and/or use of iterative reconstruction technique. FINDINGS: LUNG BASES: No visible pulmonary or pleural disease. LIVER: Multiple small nonenhancing hypodensities scattered within the liver favoring benign cysts. No enlargement, atrophy, suspicious density, or significant focal lesion. BILIARY: No dilatation or calcification. PANCREAS: No lesion, fluid collection, or abnormal duct dilatation. SPLEEN: No enlargement or focal lesion. ADRENALS: No mass or enlargement. KIDNEYS: Nonenhancing 1.4 cm dense cyst arising from right kidney suspected to represent a hemorrhagic cyst. Benign-appearing 2.3 cm cyst arising from left kidney. No mass, obstruction, or calcification. BOWEL/MESENTERY: Numerous noninflamed diverticula involving the sigmoid colon. No visible mass, obstruction, or bowel wall thickening. Normal appendix. AORTA/VASCULAR: No aneurysm or dissection. RETROPERITONEUM: No mass or adenopathy. LYMPH NODES: No adenopathy. URINARY BLADDER: No visible focal wall thickening, lesion, or calculus. PELVIC ORGANS: No visible mass. Pelvic organs appropriate for patient age. ABDOMINAL WALL: No mass or hernia. BONES: Heterogeneous coarsening of the trabecular markings of the left iliac wing suggestive of patches disease. OTHER: Negative. CT/CT abdomen pelvis wo/w con IMPRESSION: 1. Multiple small hypodensities within liver favoring benign cysts. 2. Nonenhancing renal cysts. Suspect hemorrhagic cyst within right kidney and simple cyst within left kidney. 3. Distal colonic diverticulosis. 4. 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 Electronically authenticated by: THIERNO ELIZABETH Date: 11/14/2023 16:42
--- OUTSIDE RECORDS SUMMARY | 2023-11-14 08:17 | XMS_ITS | CCD ---
Author Organization [facility] Care Team Providers Care Informatics Spec Name Role Phone UNKNOWN, PHYSICIAN Referring Unavailable SILVAJASON Primary Care Unavailable HERCHER, DEJON Attending Unavailable HERCHER, DEJON Admitting Unavailable PROVIDER, UNKNOWN Attending Unavailable PROVIDER, UNKNOWN Admitting Unavailable PROVIDER, UNKNOWN Attending Unavailable PROVIDER, UNKNOWN Admitting Unavailable Sonja Aden Unavailable Sheng aLgos Primary Care Physician Ward Martinez Admitting Unavail able Juan, Ward [...] DR JASON Devlin Primary Care Unavailable SANDI, HAYWARD H Admitting Unavailable FAMADELIN REYNOSOIKH H Admitting Unavailable SILVA ., DR JASON Devlin Primary Care Unavailable SHAIKH JUNIOR H Attending Unavailable KELLY MORALES Consulting Unavailable KELLY MORALES Attending Unavailable SILVA ., DR JASON Devlin Primary Care Unavailable KELLY MORALES Admitting Unavailable SILVA ., DR JASON Devlin [...] CHEPE, DR HARVEY Mcgrath Procedure Practitioner Unavai labjonathan TOSTEPHANIE Consulting Unavailable STEPHANIE LIU Consulting Unavailable AQUINO, MCKAYLA Consulting Unavailable DAR II, KITTY Consulting Unavailable TAMLYN ., SAEID Consulting Unavailable JAMIE MCNEILL Consulting Unavailable SILVA ., DR JASON [...] ., DR JASON Devlin Primary Care Unavailable Silva Jason CHAMBERS Primary Care Provider [phone] Rosa CHAMBERS, Petros Steven Attending Unavailable ADDIE HUSTON Attending Unavailable SHENG LAGOS Referring Unavailable TIMMIS CHRISTELLE H Attending Unavailable John Nieves Attending Unavailable Brissa, CHROME TANNING DRUM OPERATOR Sheng L Attending Unavailable Brissa, CHROME TANNING DRUM OPERATOR Sheng L Attending Unavailable Brissa, CHROME TANNING DRUM OPERATOR Sheng L Attending Unavailable Brissa, CHROME TANNING DRUM OPERATOR Sheng L Attending Unavailable Brissa, CHROME TANNING DRUM OPERATOR Sheng L Attending Unavailable Timmis, Christelle H Admitting Unavailable Timmis, Christelle H Attending Unavailable Timmis, Christelle H Referring Unavailable Brissa, CHROME TANNING DRUM OPERATOR Sheng L Admitting Unavailable Brissa, CHROME TANNING DRUM OPERATOR Sheng L Attending Unavailable Brissa, CHROME TANNING DRUM OPERATOR Sheng L Attending Unavailable Brissa, CHROME TANNING DRUM OPERATOR Sheng L Admitting Unavailable Timmis, Christelle H Admitting Unavailable Timmis, Christelle H Attending Unavailable Timmis, Christelle H Referring Unavailable Brissa, CHROME TANNING DRUM OPERATOR Sheng L Admitting Unavailable MouchMary Jane washington Attending Unavailable Brissa, CHROME TANNING DRUM OPERATOR Sheng L Referring Unavailable Brissa, CHROME TANNING DRUM OPERATOR Sheng L Attending Unavailable Brissa, CHROME TANNING DRUM OPERATOR Sheng L Attending Unavailable Brissa, CHROME TANNING DRUM OPERATOR Sheng L Attending Unavailable YANGAZICHARISSE Attending Unavailable CHARISSE GAY Attending Unavailable ROYAL GANDARA Referring Unavailable KORINA ZAVALA Attending Unavailable SOLIS VALLES Attending Unavailable ROYAL GANDARA Referring Unavailable Allergies Allergy Classification Reported Allergen(s) Allergy Type Date of Onset Reaction(s) Facility (2 sources) No Known Medication Allergies; Translations: [No Known Medication Allergies] Propensity to adverse reactions to drug (disorder) [facility] Repository Medications Current Medications Medication Drug Class(es) Dates Sig (Normalized) Sig (Original) acetaminophen 325 mg oral tablet (5 sources) Start: 10-23-2023 take 1 tablet by mouth every six hours as needed for pain Tylenol 325 mg Tab 325 mg, Oral, q6hr, PRN as needed for pain, Refills(s) 0 Start Date: 10/23/23 Status: Ordered take 1 capsule by mo uth every six hours as needed acetaminophen (Tylenol) 325 MG capsule T suzanna 325 mg by mouth every 6 (six) hours if needed. 0 Active amLODIPine 5 mg oral tablet (9 sources) Dihydropyridine Calcium Channel Benson Start: 09-24-2023 take 1 tablet by mouth once daily amLODIPine 5 mg Tab 5 mg = 1 tab(s), Oral, Daily, # 90 tab(s), Refills(s) 1, Pharmacy: [facility], 179, cm, 09/03/23 10:34:00 EST, Height/Length Dosing, 100.9, kg, 09/03/23 10:34:00 EST, Weight Dosing Start Date: 09/24/23 Status: Ordered Start: 10-31-2022 take 1 tablet by joesph th once daily amLODIPine 5 mg Tab 5 [...] 08/29/2023 Active furosemide 40 mg oral tablet (8 sources) Loop Diuretic Start: 09-05-2023 take 1 tablet by mouth once daily furosemide 40 mg Tab 40 mg = 1 tab(s), Oral, Daily, # 90 tab(s), Refills(s) 1, Pharmacy: [facility], 179, cm, 09/03/23 10:34:00 EST, Height/Length Dosing, 100.9, kg, 09/03/23 10:34:00 EST, Weight Dosing Start Date: 09/05/23 Status: Ordered Start: 10-31-2022 take 1 tablet by joesph th once daily furosemide 40 mg Tab 40 mg = 1 tab(s), Oral, Daily, # 30 tab(s), Refills(s) 0 Start Date: 10/31/22 Status: Ordered lisinopril 20 mg oral tablet (9 sources) Angiotensin Converting Enzyme Inhibitor Start: 10-31-2022 take 1 tablet by mouth once daily lisinopril 20 mg Tab 20 mg = 1 tab(s), Oral, Daily, # 90 tab(s), Refills(s) 1, Pharmacy: [facility], 178, cm, 07/03/23 9:26:00 EST, Height/Length Dosing, 98.4, kg, 07/03/23 9:26:00 EST, Weight Dosing Start Date: 08/07/23 Status: Ordered take 1 tablet by joesph th every twenty-four hours Lisinopril 5 MG 1 tablet Orally Once a day Active Multi For Him 50+ - (1 source) Multi For Him 50 + - as directed Orally Active omeprazole 40 mg delayed release oral capsule (7 sources) Proton Pump Inhibitor Start: 01-23-20 take 1 capsule by mouth once daily omeprazole 40 mg Cap-DR 40 mg = 1 cap(s), Oral, Daily, # 180 cap(s), Refills(s) 3, Pharmacy: [facility], 178, cm, 01/22/23 14:05:00 EDT, Height/Length [...] Ordered warfarin sodium 5 mg oral tablet (9 sources) Vitamin K Antagonist Start: 11-01-19 take [...] UNSPECIFIED] Onset: 3 Episodic Acute cerebrovascular disease (5 sources) Cerebrovascular accident 10-31-2022 Chronic Acute posthemorrhagic anemia (1 source) Acute posthemorrhagic anemia; Translations: [ACUTE POSTHEMORRHAGIC ANEMIA] Onset: 3 Episodic Alcohol-related disorders (1 source) Alcohol dependence, uncomplicated; Translations: [ALCOHOL DEPENDENCE UNCOMPLICATED] Onset: 3 Chronic Allergic reactions (2 sources) Atopic dermatitis; Translations: [Other atopic dermatitis] 08-29-2023 Chronic Allergic reactions (8 sources) Vesicular eczema; Translations: [Eczema] 10-31-2022 Episodic Cardiac dysrhythmias (15 sources) Atrial fibrillation; Translations: [Cardiac arrhythmia] Onset: 2 10-31-2022 Chronic Comment on above: Tachy, Ryan Chronic kidney disease (1 source) Chronic kidney disease; Translations: [CHRONIC KIDNEY DISEASE STAGE 3B] Onset: 3 Conduction disorders (5 sources) Presence of cardiac pacemaker; Translations: [Cardiac pacemaker in situ] Onset: 3 10-23-2023 Chronic Congestive heart failure; nonhypertensive (6 sources) Heart failure, unspecified; Translations: [Chronic diastolic (congestive) heart failure] Onset: 2 Chronic Crushing injury or internal injury (5 sources) Contusion of lung 10-31-2022 Episodic Comment on above: No details in previo us records Deficiency and other anemia (6 sources) Anemia; Translations: [Anemia, unspecified] Onset: 4 10-31-2022 Episodic Comment on above: FE DEF Anemia Deficiency and other anemia (1 source) Iron deficiency anemia, unspecified; Translations: [IRON DEFICIENCY ANEMIA UNSPECIFIED] Onset: 3 Episodic Disorders of lipid metabolism (9 sources) Hyperlipidemia; Translations: [Pure hypercholesterolemia, unspecified] Onset: 3 10-31-2022 Chronic Comment on above: no details in previo us chart Diverticulosis and diverticulitis (1 source) Diverticulosis of large intestine without perforation or abscess without bleeding; Translations: [DVRTCLOS LG INT NO PERF/ABSC W/O BL] Onset: 3 Chronic Essential hypertension (7 sources) Hypertensive disorder; Translations: [Essential (primary) hypertension] [...] with hemorrhage] Onset: 3 Chronic Gastrointestinal hemorrhage (8 sources) Gastrointestinal hemorrhage, unspecified; Translations: [Hemorrhage of digestive system] Onset: 3 Episodic Hypertension with complications and secondary hypertension (1 source) Hypertensive chronic kidney disease with stage 1 through stage 4 chronic kidney disease, or unspecified chronic kidney disease; Translations: [HTN CKD W/STAGE 1-4 CKD/UNS CKD] Onset: 3 Chronic Other aftercare (1 source) Other longshore 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 (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 therapy; Translations: [OTH ICE CREAM SHOP ASSOCIATE CURRENT DRUG THERAPY] Onset: 3 Episodic Other aftercare (5 sources) Encounter for therapeutic drug level monitoring; Translations: [ENC THERAPEUTC DRUG LEVL MONITORING] Onset: 3 Episodic Other aftercare (1 source) halfway (current) use of anticoagulants; Translations: [ICE CREAM SHOP ASSOCIATE CURRNT USE ANTICOAGULANTS] Onset: 3 Episodic Other and ill-defined cerebrovascular disease (1 source) Cerebrovascular disease, unspecified; Translations: [CEREBROVASCULAR DISEASE UNSPECIFIED] Onset: 3 Chronic Other diseases of kidney and ureters (3 sources) Renal mass 09-04-2023 Chronic Other gastrointestinal disorders (5 sources) Hemorrhage into peritoneal cavity 10-31-2022 Episodic Comment on above: No details in previo us medical record Other gastrointestinal disorders (1 source) Other fecal abnormalities; Translations: [OTHER FECAL ABNORMALITIES] Onset: 3 Episodic Other liver diseases (1 source) Disease of liver; Translations: [Other specified diseases of liver] Onset: 4 Chronic Other liver diseases (3 sources) Nodule of liver 09-04-2023 Chronic Other liver [...] Chronic Other nutritional; endocrine; and metabolic disorders (4 sources) Body mass index 30+ - obesity 12-21-2022 Chronic Other nutritional; endocrine; and metabolic disorders (1 source) Obese class I; Translations: [Body mass index (BMI) 30.0-30.9, adult] Onset: 4 Chronic Other screening for suspected conditions (not mental disorders or infectious disease) (10 sources) CT of chest abnormal; Translations: [Plain X-ray cervical spine abnormal] 09-04-2023 Episodic Other skin disorders (2 sources) Seborrheic keratosis; Translations: [Other seborrheic keratosis] 08-29-2023 Episodic Other skin disorders (3 sources) Changes in skin texture 07-03-2023 Episodic Other upper respiratory disease (1 source) Bleeding from nose; Translations: [Epistaxis] Onset: 4 Episodic Pancreatic disorders (not diabetes) (3 sources) Cyst of pancreas; Translations: [Cyst of pancreas] Onset: 4 Episodic Residual codes; unclassified (1 source) Family history of malignant neoplasm of digestive organs; Translations: [FAM HX MALIG NEOPLASM DIGESTIV ORGN] Onset: 3 Episodic Residual codes; unclassified (1 source) Other specified postprocedural states; Translations: [OTH SPECIFIED POSTPROCEDURAL STATES] Onset: 3 Episodic Screening and history of mental health and substance abuse codes (5 sources) Personal history of nicotine dependence; Translations: [Ex-cigar smoker] Onset: 3 12-21-2022 Episodic Unclassified (5 sources) Chronic atrial fibrillation, unspecified; Translations: [CHRONIC ATRIAL FIBRILLATION UNSPEC] Onset: 3 Unclassified (3 sources) Rupture of rotator cuff of shoulder 09-04-2023 Unclassified (2 sources) Other persistent atrial fibrillation; [...] Value Interpretation Reference Range Facility Physician Orderon 10-31-2023 Physician Order [id number] .00TIFF Normal [facility] Ambulatory Visit Summaryon 0 10-30-2023 Ambulatory Visit Summary RY LERNER :1935 Visit Date:10/30/2023 Ambulatory Visit Instructions Your Diagnosis BMI 30.0-30.9,adult Former smoker Your Care Team Attending Physician - Sheng Simms Primary Care Physician - Sheng Simms This Is Your Medications List acetaminophen (Tylenol 325 mg Tab) amlodipine (amLODIPine 5 mg Tab) furosemide (furosemide 40 mg Tab) lisinopril (lisinopril 20 mg Tab) omeprazole (omeprazole 40 mg Cap-DR) warfarin (warfarin 5 mg Tab) Procedures Performed Nasal cautery (10/24/2023), Colonoscopy (12/12/2022), Carpal tunnel release (12/10/2022), Cardiac pacemaker (09/2021), Colonoscopy (02/2011), Transurethral resection of prostate (TURP) syndrome (1995), Hernia (1993), Tonsillectomy with adenoidectomy. Discharge Vitals Heart Rate (Peripheral) 68 Respiratory Rate 18 Blood Pressure 118/62 Height 180.0 cm Height 71 in Weight 99.1 kg Weight 218.02 lb BMI 30.59 Medications What How Much When Instructions Unchanged acetaminophen (Tylenol 325 mg Tab) 325 Milligram By Mouth Every 6 hours as needed for as needed for pain Unchanged amlodipine (amLODIPine 5 mg Tab) 1 Tablets By Mouth Every day Unchanged furosemide (furosemide 40 mg Tab) 1 [...] receiving treatment for. Abnormal chest CT Abnormal liver ultrasound Abnormal [...] [facility] Family Medicine Office/Clini c Noteon 10-30-2023 Family Medicine Office/Clinic Note HPI Staff Ry is a 88 year old male presenting for follow up Called 10/29/23 for records he was there for medication management, no record of CT scan . pt states [facility] had no order for CT of abdomen and pelvis. daughter would like to discuss watchman . Seen coin machine collector today. Hemorid burst on Saturday. Daughter from what she understands needs recommendation from 2 physicians for medicare to cover it. They had talked about alternative for warfarin with recent bleeding and bruising. History of Present Illness pt presents today for follow up Review of Systems PHQ Score Initial Depression Screen Score: 0 SCORE Physical Exam Vitals & Measurements HR: 68(Peripheral) RR: 18 BP: 118/62 SpO2: 96% HT: 71 in HT: 180.0 cm WT: 99.1 kg WT: 218.02 lb BMI: 30.59 General: alert, no acute distress ENMT: oral mucosa moist, no pharyngeal erythema or exudate Cardiovascular: regular rate and rhythm, normal peripheral perfusion Respiratory: Lungs CTA, respirations non labored Extremities: no deformity, no trauma Neurological: oriented x 4, LOC appropriate for age, CN II-XII intact, motor strength equal & normal bilaterally, speech normal Assessment/Plan 1. AF (atrial fibrillation) (I48.91: Unspecified atrial fibrillation) pt was seen by cardiology this morning. Dr. Morales. pt had episode of epitaxis and had a hemorrhoid burst the other day. has been hospitalized for GI ulcer bleeding and anemia. Fr. Rowe is suggesting he have the watchman procedure done so he can stop taking the warfarin. patient and daughter feel the warfarin is causing more issues than it is actually helping him. This provider feels the watchman procedure would be a good choice to treat his a-fib vs. continuing warfarin treatment. Ry has some other medical issues going on that may require surgery or biopsies and not being on warfarin will be helpful in these situations. RTC 1 month for follow up 2. Liver nodule (K76.89: Other specified diseases of liver) see below 3. Nodule of kidney (N28.89: Other specified disorders of kidney and ureter) CT of abdomen and pelvis was ordered by September 29 but [facility] never received the order. new order sent to [facility] 4. BMI 30.0-30.9,adult (Z68.30: Body mass index [BMI] 30.0-30.9, adult) BMI eduction complete 5. Former smoker (Z87.891: Personal history of nicotine dependence) consider not smoking Follow-up No qualifying data available [...] changes Historical No qualifying data Procedure/Surgical History Nasal cautery (10/24/2023), Colonoscopy (12/12/2022), Carpal tunnel release (12/10/2022), Cardiac [...] mg= 1 cap(s), Oral, Daily, 3 refills Tylenol 325 mg Tab, 325 mg, Oral, q6hr, PRN warfarin 5 mg Tab, 5 mg= 1 [...] Use:. Cigars, Pipe, Household tobacco concerns: No., 10/30/2023 Former smoker, quit more than 30 days [...] influenza virus vaccine, inactivated 04/14/2018 Recorded influenza vi (more content not included)... Normal [facility] Comment on above: Result Comment: Elec tronically Signed By: Sheng Simms\.br\Date and Time Signed: 10/30/23 16:04 EDT Office Visiton 10-30-2023 Follow-up visit [id number] Ry Lerner 1935 M Date Provider Department Center 10/30/2023 KORINA GODOY BETH [facility] Family History Family history unknown: Yes Level of Service:55072 MS OFFICE/OUTPATIENT ESTABLISHED MOD MDM 30 MIN Reason for Visit and Comments: Follow-up [319855] - 6 month follow up Normal [facility] Orders Onlyon 10-30-2023 Orders Only [id number] Ry Lerner 1935 Date Provider Department Center 10/30/2023 JULES NGUYEN BETH Redman Family History Family history unknown: Yes [facility] Lab Reportson 10-29-2023 Lab Reports [id number] .00TIFF [facility] IntraOperative Documentson 0 10-28-2023 IntraOperative Documents [id number] .00TIFF [facility] Consent for Anesthesiaon Consent for Anesthesia [id number]# 1.00TIFF [facility] Discharge Instructionson Discharge Instructions [id number]# 1.00TIFF Normal [facility] IntraOperative Documentson 0 10-25-2023 IntraOperative Documents [id number]# 1.00TIFF Normal [facility] Main OR Intraoperative Recor don 10-25-2023 Main OR Intraoperative Record IntraOp Document Type FT Summary Primary Physician: Christelle Hurst MD Finalized Date/Time: 10/25/23 13:48:34 Pt. Name: RY LERNER /Sex: 1935 Male Med Rec #: [id number] Physician: Christelle Hurst MD Financial #: [id number] Pt. Type: A Room/Bed: [place] [address] Admit/Disch: 10/24/23 12:15:19 - 10/24/23 15:50:00 Institution: Case Times FT Entry 1 Patient Times In Room 10/24/23 13:45:00 Out Room 10/24/23 14:16:00 Procedure Times Start 10/24/23 13:58:00 Stop 10/24/23 14:08:00 Anesthesia Times Start 10/24/23 13:45:00 Stop 10/24/23 14:16:00 Last Modified By: Aristides PERSAUD, Damion Calix 10/24/23 14:16:07 General Comments: 10/25/23 Chart opened for charge review per Nan Burt RN. 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 supervisor paint department Last Modified By: Aristides PERSAUD, Damion Irving RN, Damion L Damion Irving RN 10/24/23 14:16:08 10/24/23 14:16:08 10/24/23 14:16:08 Entry 4 Entry 5 Case Attendee Josefa Newell Sydney A Role Performed Staff - Other Scrub - Primary Time In 10/24/23 13:45:00 10/24/23 13:45:00 Time Out 10/24/23 14:06:00 10/24/23 14:16:00 Procedure NASAL ENDOSCOPY(Right) NASAL ENDOSCOPY(Right) Comments Last Modified By: Damion Irving RN, RN, Andrea L 10/24/23 14:16:08 10/24/23 14:16:08 Perioperative Protocols FT Pre-Care Text: Implements protective measures prior to operative or invasive procedure, confirms identity before the operative or invasive procedure, verifies operative procedure, surgical site, and laterality Entry 1 Procedure(s) NASAL ENDOSCOPY(Right) Patient Identity Birthday, ID Band Verified (select at Check, Patient least 2): Participation Consents / H and P Anesthesia Consent, Operative Site Present Verified HandP, Surgery/Procedure Marking Verified Consent Surgical Site Yes Laterality Verified Yes Verified Procedure Verified Yes Correct Patient Yes Position Verified Availability Equipment, Medication Prep Dry n/a Verified (If Applicable) PreOp Antibiotic No Time Out Yovany James, Given Participants Christelle Hurst MD, Krupp RN, Reece Barraza Kelsie E, Dellinger, Sydney A Time Out Complete 10/24/23 13:56:00 Outcomes Met? Yes Last Modified By: Damion Irving RN 10/24/23 13:58:31 Post-Care Text: The patient is free from signs and symptoms of injury caused by extraneous objects Allergy Information FT Pre-Care Text: Verifies allergies Entry 1 Allergies Reviewed? Yes Allergies Reviewed Self/Patient With Outcomes Met? Yes Last Modified By: Damion Irving RN 10/24/23 13:54:44 Post-Care Text: The patient received appropriate medication(s) safely administered during the perioperative period Surgical Procedures FT Entry 1 Procedure Description Procedure NASAL ENDOSCOPY Modifiers Right Surgeon Description RIGHT NASAL ENDOSCOPY WITH CAUTERIZATION Primary Procedure Yes Primary Surgeon Christelle Hurst MD Start 10/24/23 13:58:00 Stop 10/24/23 14:08:00 Anesthesia Type General Surgical Service ENT Wound Class 2 - Clean-Contaminated Last Modified By: Damion Irving RN 10/24/23 14:16:10 General Case Data FT Pre-Care Text: Classifies surgical wound, implements aseptic technique, initiates traffic control Entry 1 Case Information OR OR 2 FT Case Level Level 3 Wound Class 2 - Clean-Contaminated Specialty ENT ASA Class 3 Preop Diagnosis EPISTAXIS Postop Same As Preop Yes Postop Diagnosis EPISTAXIS Outcomes Met? Yes Last Modified By: Damion Irving RN 10/24/23 13:58:48 Post-Care Text: The patient is free from signs and symptoms of infection Skin Assessment (Pre Procedure) FT Pre-Care Text: Implements protective measures to prevent skin/ tissue injury due to thermal or mechanical sources Evaluates for signs and symptoms of physical injury to skin and tissue Entry 1 Skin Integrity Intact, [place], Warm, and Outcomes Met? Yes Dry Last Modified By: Damion Irving RN 10/24/23 13:58:57 Post-Care Text: The patient is free from signs and symptoms of injury caused by extraneous objects Patient Positioning FT Pre-Care Text: Identifies physical alterations that require additional precautions for procedure-specific positioning, verifies presence of prosthetics or corrective devices, positions the patient, evaluates the patient for signs and symptoms of injury as a result of positioning Entry 1 Procedure NASAL ENDOSCOPY(Right) Body Position Supine Feet Uncrossed? Yes Left Arm Position Extended on Padded Arm Board Right Arm (more content not included)... Normal [facility] Operative Reporton Operative Report SURGERY DATE: 10/24/2023 PREOPERATIVE DIAGNOSIS: Right epistaxis POSTOPERATIVE DIAGNOSIS: Right epistaxis OPERATION: Right nasal endoscopy and cautery ANESTHESIA: General endotracheal COMPLICATIONS: None FINDINGS: Extensive excoriation of the right anterior middle turbinate and nasal septum INDICATIONS: This 88-year-old man presented with recurrent epistaxis of the right nose. His nose was packed last week at [facility], and then when he returned for attempted removal of his pack he immediately rebled and had to be repacked. In the office yesterday his packing was gradually removed until there was fresh blood identified. Of note, the patient had also been taking both aspirin and Coumadin, which have been held since last Saturday. PROCEDURE: The patient was identified in the Holding Area and taken back to the Operating Room, where he was placed in a supine position. After induction of general endotracheal anesthesia, the packing was removed from the right side of the patient's nose. Nasal endoscopy was performed with a 30-degree nasal endoscope and the above findings found. Although there was extensive excoriation of the mucosa, there was no significant bleeding. The areas of greatest excoriation were then cauterized with suction Bovie. Note: Preoperatively a magnet was placed over the patient's pacemaker, and the Bovie pad was situated to direct electrical current away from the patient's pacemaker. After cauterizing the excoriated areas of the patient's nose, the nose was copiously irrigated. An examination of the nose into the nasopharynx was performed, and there were no other areas of bleeding or suspected bleeding site found. Antibiotic ointment was then placed over the cautery site, and the patient was awakened and taken to the Recovery Room in good condition. Christelle Hurst Jr., M.D. ca Dictated: 10/24/2023 [id number] Transcribed: 10/24/2023 cc:JAXON Shane [facility] Comment on above: Result Comment: Elec tronically Signed By: Marie CHAMBERS, Christelle Diaz\.br\Date and Time Signed: 10/25/23 07:09 EDT Outside Recordson 10-25-2023 Outside Records [id number]# 1.00TIFF [facility] Preoperative Documentson Preoperative Documents [id number]# 1.00TIFF [facility] Progress Note-Physicianon Progress Note-Physician Patient: RY LERNER Age: 88 years Sex: Male : 1935 Associated Diagnoses: None Author: Ward Kraus Jr, DO Postoperative Information Postoperative disposition: Postoperative disposition: To PACU. Optimetrix number: Optimetrix number [id number]. Anesthetic utilized: General. Health Status Allergies: Allergic Reactions (Selected) No Known Allergies No Known Medication Allergies Physical Examination Vital Signs 10/24/2023 15:49 EDT Heart Rate Monitored 65 bpm SpO2 99 % 10/24/2023 15:48 EDT Systolic Blood Pressure 148 mmHg HI Diastolic Blood Pressure 73 mmHg Mean Arterial Pressure, Monitered 98 mmHg 10/24/2023 15:48 EDT Respiratory Rate 16 br/min 10/24/2023 14:52 EDT Heart Rate Monitored 61 bpm SpO2 100 % 10/24/2023 14:51 EDT Systolic Blood Pressure 160 mmHg HI Diastolic Blood Pressure 72 mmHg Mean Arterial Pressure, Monitered 101 mmHg 10/24/2023 14:42 EDT Temperature Temporal Artery 36.5 DegC Heart Rate Monitored 60 bpm Respiratory Rate Monitored 15 br/min Systolic Blood Pressure 129 mmHg Diastolic Blood Pressure 60 mmHg Mean Arterial Pressure, Cuff 83 mmHg SpO2 99 % Pain Assessment: Controlled. General: Awake, Alert, Appropriate. Respiratory: Adequate air exchange. Cardiovascular: Stable, Normal peripheral perfusion. Neurological: Normal sensory function, Normal motor function. Assessment Anesthetic outcome No anesthetic complications noted. Adequate pain relief. able to void without difficulty, able to ambulate with assist, tolerating PO intake, no N/V. Review / Management Condition: Stable. Plan Transfer/Discharge: Transfer/Discharge Discharge when meets criteria ( To home ). Normal [facility] Comment on above: Result Comment: Elec tronically Signed By: Ward Kraus Jr, DO\.br\Date and Time Signed: 10/25/23 10:01 EDT Progress Note-Physician Patient: RY LERNER Age: 88 years Sex: Male : 1935 Associated Diagnoses: None Author: Ward Kraus Jr, DO Preoperative Information Anesthesia Preop Info: Time patient last ate or drank 10/24/2023 00:00:00. Anesthesia history: Patient history: None. Family history+: None. Informed consent: Signed by patient. Re-evaluation prior to induction: Initial evaluation reviewed: No significant change. Review of Systems Eye: Negative except as documented in history of present illness. Ear/Nose/Mouth/Throat : Negative except as documented in history of present illness. Respiratory: Negative except as documented in history of present illness. Cardiovascular: Negative except as documented in history of present illness. Musculoskeletal: Negative except as documented in history of present illness. Neurologic: Negative except as documented in history of present illness. 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 Abnormal liver ultrasound / SNOMED CT 3234893968 / Confirmed Abnormal ultrasound of kidney / SNOMED CT 2704443728 / Confirmed Rotator cuff tear / SNOMED CT 1428342914 / Confirmed Nodule of kidney / SNOMED CT 110788161 / Confirmed Abnormal x-ray of cervical spine / SNOMED CT 203692072 / Confirmed Liver nodule / SNOMED CT 5755256324 / Confirmed HTN (hypertension) / SNOMED CT 0595036437 / Confirmed No details in previous records Hyperlipidemia / SNOMED CT 39295730 / Confirmed no details in previous chart Bleeding ulcer / SNOMED CT 2189346101 / Confirmed Hemoperitoneum / SNOMED CT 1125294248 / Confirmed No details in previous medical record Former cigar smoker / SNOMED CT 417688314 / Confirmed Eczema / SNOMED CT 84559644 / Confirmed Cyst of pancreas / SNOMED CT 51234873 / Confirmed Abnormal chest CT / SNOMED CT 8586581302 / Confirmed Contusion of lung / SNOMED CT 703141600 / Confirmed No details in previous records Skin texture changes / SNOMED CT 255480584 / Confirmed Acute cerebrovascular accident (CVA) / SNOMED CT 867730949 / Confirmed Cardiac pacemaker / SNOMED CT 5850827806 / Confirmed Dysrhythmias / SNOMED CT 5190076941 / Confirmed Tachy, Ryan BMI 30.0-30.9,adult / SNOMED CT 640892819 / Confirmed AF (atrial fibrillation) / SNOMED CT 16987279 / Confirmed Anemia / SNOMED CT 030111369 / Confirmed FE DEF Anemia Canceled: Aspiration pneumonia / SNOMED CT 3320200954 Histories Procedure history: Colonoscopy (833322171) on 12/12/2022 at 87 Years. Carpal tunnel release (416184570) on 12/10/2022 at 87 Years. Comments: 12/11/2022 11:34 HOWIET - Suma Dubois Left Cardiac pacemaker (93549328) in the month of 09/2021 at 86 Years. Colonoscopy (910317478) in the month of 02/2011 at 75 Years. Transurethral resection of prostate (TURP) syndrome (4647002813) in 1995 at 60 Years. Hernia (8453972517) in 1993 at 58 Years. Tonsillectomy with adenoidectomy (21330815). Social History Social & Psychosocial Habits Alcohol 10/24/2023 Risk Assessment: Low Risk 10/24/2023 Use: Current Type: Liquor Frequency: 3-5 times per week Concerns about alcohol use in household: No Substance Abuse 10/24/2023 Risk Assessment: Denies Substance Abuse 10/24/2023 Concerns about substance abuse in household: No Tobacco 10/24/2023 Risk Assessment: Denies Tobacco Use 10/24/2023 Tobacco Use: Former smoker, quit more 10/24/2023 Tobacco Use: Former smoker, quit more Smokeless tobacco use: Never Type: Cigars, Pipe Concerns about tobacco use in household: No Comment: Quit in 2002 - 12/21/2022 13:04 - John Aldana; quit in 2002 - 08/28/2023 11:24 - Rene Brannon Physical Examination Airway: Mallampati classification: II (soft palate, fauces, uvula visible). Respiratory: adequate air exchange. Cardiovascular: Regular rhythm. Plan [place] [employer] (ASA) physical status classification: Class III. Anesthetic Preoperative Plan: Anesthesia General. [facility] Comment on above: Result Comment: Elec tronically Signed By: Ward Kraus Jr, DO\.viviane\Date and Time Signed: 10/25/23 09:03 EDT Consent for Treatmenton 09-27 Consent for Treatment [id number]#1 .00TIFF [facility] Discharge Instructionson Discharge Instructions RY LERNER :1935 Visit Date:10/24/2023 Inpatient Discharge Instructions Your Care Team Admitting Physician - Christelle Hurst MD Referring Physician - Christelle Hurst MD Reason for Your Visit EPISTAXIS Your Diagnosis Epistaxis Procedure History Colonoscopy (12/12/2022), Carpal tunnel release (12/10/2022), Cardiac pacemaker (09/2021), Colonoscopy (02/2011), Transurethral resection of prostate (TURP) syndrome (1995), Hernia (1993), Tonsillectomy with adenoidectomy. What to do next Instructions From Your Doctor Event Name Event Result Discharge Instructions Freetext Keep head elevated one weekRestart coumadin 10/25Antibiotic ointment to the right nose 2 times daily for 2 weeks Discharge Activity Expect mild pain, Expect minimal amount of drainage and/or bleeding, Activity as tolerated Discharge Diet(s) Regular Call Your Doctor For Persistent or heavy bleeding Discharge Instructions Discharge Instructions New Follow Up Appointments after Discharge Follow Up with Christelle Hurst When: Comments: As needed Medications What How Much When Instructions Next Dose Unchanged acetaminophen (Tylenol 325 mg Tab) 325 Milligram By Mouth Every 6 hours as needed for as needed for pain Unchanged amlodipine (amLODIPine 5 mg Tab) 1 Tablets By Mouth Every day Unchanged furosemide (furosemide 40 mg Tab) 1 Tablets By Mouth Every day Unchanged lisinopril (lisinopril 20 mg Tab) 1 Tablets By Mouth Every day Unchanged omeprazole (omeprazole 40 mg Cap-DR) 1 Capsules By Mouth Every day Unchanged warfarin (warfarin 5 mg Tab) 1 Tablets By Mouth Every day START 10/25 Problems Ongoing - Any problem that you are currently receiving treatment for. Abnormal chest CT Abnormal liver ultrasound Abnormal ultrasound of kidney Abnormal x-ray of cervical spine Acute cerebrovascular accident (CVA) AF (atrial fibrillation) Anemia Bleeding ulcer BMI 30.0-30.9,adult Contusion of lung Cyst of pancreas Dyshidrotic eczema Dysrhythmias Eczema Former cigar smoker Hemoperitoneum HTN (hypertension) Hyperlipidemia Liver nodule Nodule of kidney Rotator cuff tear Skin texture changes Education Materials [place], [place] DISCHARGE INSTRUCTIONS: NASAL SURGERY DO NOT BLOW YOUR NOSE: You may sniff back ONLY. If your nose begins to bleed, do not become alarmed. Sit down, put your feet up and apply ice to the back of your neck. Use 2 sprays of the nasal decongestant. If the bleeding is very brisk, or does not stop in 5-10 minutes, either call the office or report to the nearest Emergency Department. ACTIVITY: Maintain a low level of activity. You may fatigue easily. Rest frequently and avoid exertion. You may take short walks and drive short distances if you are not taking medication that makes you drowsy. Do not attain any head-down positions for one week. Do not lift or strain for one week. Sleep with head elevated on 2 pillows for one week. DIET: You may resume your normal diet, but a soft diet is best tolerated. DRESSING: Wear a nasal drip pad for the first 2 to 3 days following the surgery. Change the nasal drip pad as needed. Once the drainage slows down wear the pad if needed. MEDICATIONS: Use your medications as prescribed. Antibiotic ointment to the right nose 2 times daily for 2 weeks POST-OPERATIVE APPOINTMENT: Keep your post-operative appointment. If you do not have one, call the office to make an appointment to be seen in 7-10 days. Call the office with any questions or problems: [phone] ([facility]) The above information has been explained, I have had the opportunity to have my questions answered, and I have received a copy. Responsible Democrat Signature Surgeon?s Signature Nurse?s Signature Reviewed: 09/05 Common Emergency Awareness Tips IS IT A STROKE? Act FAST and Check for these signs: FACE Does the face look uneven? ARM Does one arm drift down? SPEECH Does their speech sound strange? TIME Call at any sign of stroke Heart Attack Signs Chest discomfort: Most heart attacks involve discomfort in the center of the chest and lasts more than a few minutes, or goes away and comes back. It can feel like uncomfortable pressure, squeezing, fullness or pain. Discomfort in upper body: Symptoms can include pain or discomfort in one or both arms, back, neck, jaw or stomach. Shortness of breath: With or without discomfort. Other signs: Breaking out in a cold sweat, nausea, or lightheaded. Remember, MINUTES DO MATTER. If you experience any of these heart attack warning signs, call to get immediate medical attention! Patient Survey You may receive a survey in the mail asking you about your stay with us. We want (more content not included)... Normal [facility] Comment on above: Result Comment: Elec tronically Signed By: Andie PERSAUD, Yann Estevez\.br\Date and Time Signed: 10/24/23 14:43 EDT H&P Updateon 10-24-2023 H&P Update [id number]# 1.00TIFF Normal [facility] Inpatient Patient Summaryon 10-24-2023 Inpatient Patient Summary [place] [id number] [facility] Clinical Discharge Instructions PERSON INFORMATION Name: RY LERNER PHYSICIANS Admitting Physician: Christelle Hurst MD Attending Physician: Christelle Hurst MD PCP: Sheng Simms Discharge Diagnosis: Epistaxis Comment: PATIENT EDUCATION INFORMATION Instructions: Medication Leaflets: Follow up: With: Address: When: Christelle Hurst Comments: As needed MEDICATION LIST Medications to Continue with No Changes Other Medications acetaminophen (Tylenol 325 mg Tab) 325 Milligram By Mouth every 6 hours as needed as needed for pain. amlodipine (amLODIPine 5 mg Tab) 1 Tablets By Mouth every day. Refills: 1. furosemide (furosemide 40 mg Tab) 1 Tablets By Mouth every day. Refills: 1. lisinopril (lisinopril 20 mg Tab) 1 Tablets By Mouth every day. Refills: 1. omeprazole (omeprazole 40 mg Cap-DR) 1 Capsules By Mouth every day. Refills: 3. warfarin (warfarin 5 mg Tab) 1 Tablets By Mouth every day., managed per [facility] Comment: Normal [facility] Main OR PACU I Recordon 09-27 Main OR PACU I Record PACU Phase I Docum ent Type FT Summary Primary Physician: Christelle Hurst MD Finalized Date/Time: 10/24/23 15:11:48 Pt. Name: RY LERNER Benji/Sex: 1935 Male Med Rec #: [id number] Physician: Christelle Hurst MD Financial #: [id number] Pt. Type: A Room/Bed: [facility] Admit/Disch: 10/24/23 12:15:19 - Institution: Case Times PACU I FT Pre-Care Text: Identifies barriers to communication and implements measures to provide psychological support Develops individualized plan of care, and ensures continuity of care Maintains patient's dignity and privacy, and maintains patient confidentiality Identifies and reports philosophical, cultural, and spiritual beliefs and values Identifies individual values and wishes concerning care Implements aseptic technique, and administers prescribed antibiotic therapy and immunizing agents as ordered Evaluates postoperative tissue perfusion Implements thermoregulation measures, and monitors body temperature Evaluates postoperative respiratory status Evaluates postoperative cardiac status Evaluates postoperative neurological status Assesses pain control, collaborated in initiating patient-controlled analgesia and implements alternative methods of pain control Verifies allergies, administers prescribed medications and solutions, evaluates response to medications Entry 1 In PACU I 10/24/23 14:17:00 Discharge from PACU 10/24/23 14:47:00 I Outcomes Met? Yes Last Modified By: Tha PERSAUD, Cristina More 10/24/23 15:11:35 Post-Care Text: The patient demonstrates knowledge of the expected response to the operative or invasive procedure The patient's care is consistent with the individualized perioperative plan of care The patient's right to privacy is maintained The patient's value system, lifestyle, ethnicity, and culture are considered, respected, and incorporated into the perioperative plan of care The patient participates in decisions affecting his or her perioperative plan of care The patient is free from signs and symptoms of infection The patient has wound/tissue perfusion consistent with or improved from baseline levels established preoperatively The patient is at or returning to normothermia at the conclusion of the immediate postoperative period The patient's respiratory function is consistent with or improved from baseline levels established preoperatively The patient's cardiovascular status is consistent with or improved from baseline levels established preoperatively The patient's cardiovascular status is consistent with or improved from baseline levels established preoperatively The patient demonstrates and/or reports adequate pain control throughout the perioperative period The patient received appropriate medication(s), safely administered during the perioperative period Acuity Level PACU I FT Entry 1 Start Time 10/24/23 14:17:00 Stop Time 10/24/23 14:47:00 Acuity Level Acuity Level I Last Modified By: Cristina Almazan RN 10/24/23 15:11:45 Finalized By: Cristina Almazan RN Document Signatures Signed By: Cristina Almazan RN 10/24/23 15:11 Normal [facility] Main OR Preoperative Recordo n 10-24-2023 Main OR Preoperative Record PreOp Document Type FT Summary Primary Physician: Christelle Hurst MD Finalized Date/Time: 10/24/23 13:53:33 Pt. Name: RY LERNER /Sex: 1935 Male Med Rec #: [id number] Physician: Christelle Hurst MD Financial #: [id number] Pt. Type: A Room/Bed: [facility] Admit/Disch: 10/24/23 12:15:19 - Institution: Case Times PreOp FT Pre-Care Text: Verifies consent for planned procedure, identifies individual values and wishes concerning care, includes family members in perioperative teaching Entry 1 Patient Times. In Pre Surgery 10/24/23 12:55:00 Out Pre Surgery 10/24/23 13:43:00 Outcomes Met? Yes Last Modified By: Damion Irving RN 10/24/23 13:53:32 Post-Care Text: The patient participates in decisions affecting his or her perioperative plan of care Finalized By: Damion Irving RN Document Signatures Signed By: Damion Irving RN 10/24/23 13:53 Normal [facility] Monitor Recordon 10-24-2023 Monitor Record [id number] 1.00TIFF Normal [facility] Monitor Record [id number]# 1.00TIFF Normal [facility] Outpatient Surgery Discharge Instructionon 10-24-2023 Outpatient Surgery Discharge Instruction [place] [id number] Patient Discharge Instructions PERSON INFORMATION Name: RY LERNER Date of : 1935 Current Date: 10/24/2023 14:31:19 PHYSICIANS Admitting Physician: Marie CHAMBERS, Christelle Diaz Discharge Diagnosis: Epistaxis RY LERNER has been given the following list of follow-up instructions, prescriptions, and patient education materials: PATIENT FOLLOW-UP INFORMATION Diet: Regular Discharge Activity: Expect mild pain, Expect minimal amount of drainage and/or bleeding, Activity as tolerated Call Your Doctor For: Persistent or heavy bleeding Additional Instructions: Keep head elevated one week Restart coumadin 10/25 Antibiotic ointment to the right nose 2 times daily for 2 weeks IF UNABLE TO CONTACT YOUR PHYSICIAN AND YOU FEEL IT IS AN EMERGENCY, GO TO THE NEAREST EMERGENCY ROOM OR CALL 911 IYANN CLAYTON, have received the attached patient education materials/instruction s and have verbalized understanding: May we do a follow up call? Yes No I was present when discharge instructions were given Patient Signature Date Clinican/Nurse Signature Date Follow up: With: Address: When: Christelle Hurst Comments: As needed Pharmacy Information: You may receive a survey from [employer] asking you to rate your care experience. Your feedback is important and will help us understand what we do well and how we can improve the quality of care we provide to you, your loved ones and our community. It?s an honor to serve you. Thank you for choosing [facility] HERE ARE THE MEDICATION CHANGES THAT OCCURRED DURING YOUR HOSPITAL STAY Medications to Continue with No Changes Other Medications acetaminophen (Tylenol 325 mg Tab) 325 Milligram By Mouth every 6 hours as needed as needed for pain. amlodipine (amLODIPine 5 mg Tab) 1 Tablets By Mouth every day. Refills: 1. furosemide (furosemide 40 mg Tab) 1 Tablets By Mouth every day. Refills: 1. lisinopril (lisinopril 20 mg Tab) 1 Tablets By Mouth every day. Refills: 1. omeprazole (omeprazole 40 mg Cap-DR) 1 Capsules By Mouth every day. Refills: 3. warfarin (warfarin 5 mg Tab) 1 Tablets By Mouth every day., managed per [facility] PATIENT EDUCATION INFORMATION Instructions: Medication Leaflets: [facility] Patient Education - Texton 0 10-24-2023 Patient Education - Text [place], [place], DO DISCHARGE INSTRUCTIONS: NASAL SURGERY DO NOT BLOW YOUR NOSE: 1. You may sniff back ONLY. 2. If your nose begins to bleed, do not become alarmed. Sit down, put your feet up and apply ice to the back of your neck. Use 2 sprays of the nasal decongestant. If the bleeding is very brisk, or does not stop in 5-10 minutes, either call the office or report to the nearest Emergency Department. ACTIVITY: 1. Maintain a low level of activity. You may fatigue easily. Rest frequently and avoid exertion. You may take short walks and drive short distances if you are not taking medication that makes you drowsy. 2. Do not attain any head-down positions for one week. 3. Do not lift or strain for one week. 4. Sleep with head elevated on 2 pillows for one week. DIET: You may resume your normal diet, but a soft diet is best tolerated. DRESSING: Wear a nasal drip pad for the first 2 to 3 days following the surgery. Change the nasal drip pad as needed. Once the drainage slows down wear the pad if needed. MEDICATIONS: Use your medications as prescribed. Use the Nasal Relief [place] (decongestant) 2 sprays each nostril every hours. Use the Nasal Saline [place] 2 sprays each nostril every 2 hours. Use the Hypertonic Saline Irrigation at least 4 times a day. Follow the instructions given in the office for mixing and using the irrigation. POST-OPERATIVE APPOINTMENT: 1. Keep your post-operative appointment. If you do not have one, call the office to make an appointment to be seen in 7-10 days. 2. Call the office with any questions or problems: [phone] ([place] office) The above information has been explained, I have had the opportunity to have my questions answered, and I have received a copy. Responsible Democrat Signature Surgeon?s Signature Nurse?s Signature Reviewed: 09/05 Normal [facility] BMPon 10-23-2023 Anion gap [Moles/Vol] 11 mmol/L Normal 6-16 [facility] Comment on above: Performed By: #### 2 [id number], [id number] ####[facility] [address] [place] [address] Calcium [Mass/Vol] 10.5 mg/dL Normal 8.9-11.1 [facility] Comment on above: Performed By: #### 2 [id number], [id number] ####[facility] [address] [place] [address] Chloride [Moles/Vol] 110 mmol/L Normal 101-111 [facility] Comment on above: Performed By: #### 2 [id number], [id number] ####[facility] [address] [place] [address] CO2 [Moles/Vol] 25 mmol/L Normal 21-31 [facility] Comment on above: Performed By: #### 2 [id number], [id number] ####[facility] [address] [place] [address] Creatinine [Mass/Vol] 2.2 mg/dL High 0.5-1.3 [facility] Comment on above: Performed By: #### 2 [id number], [id number] ####[facility] [address] [place] [address] Glucose [Mass/Vol] 111 mg/dL Normal 55-199 [facility] Comment on above: Performed By: #### 2 [id number], [id number] ####[address] [address] Potassium [Moles/Vol] 5.3 mmol/L Normal 3.5-5.3 [facility] Comment on above: Performed By: #### 2 [id number], [id number] ####[address] [address] Sodium [Moles/Vol] 141 mmol/L Normal 135-145 [facility] Comment on above: Performed By: #### 2 [id number], [id number] ####[address] [address] Urea nitrogen [Mass/Vol] 60 mg/dL High 5-21 [facility] Comment on above: Performed By: #### 2 [id number], [id number] ####[facility] [address] [place] [address] Urea nitrogen/Creatinine [Mass ratio] 27 No Units High 10-20 [facility] Comment on above: Performed By: #### 2 [id number], [id number] ####[place] [address] [place] [address] CBC w/ Auto Diffon 4 Basophils/100 WBC (Bld) 0.6 % Normal 0.0-2.0 [facility] Comment on above: Performed By: #### 1 [id number], [id number] ####[address] [place] [address] Basophils/Leukocytes Auto (Bld) [Pure # fraction] 0.0 E9/L Normal 0.0-0.2 [facility] Comment on above: Performed By: #### 1 [id number], [id number] ####[address] [address] Eosinophils (Bld) [#/Vol] 0.2 E9/L Normal 0.0-0.5 [facility] Comment on above: Performed By: #### 1 [id number], [id number] ####[address] [address] Eosinophils/100 WBC (Bld) 3.7 % Normal 0.0-8.0 [facility] Comment on above: Performed By: #### 1 [id number], [id number] ####[address] [address] Erythrocyte distribution width (RBC) [Ratio] 14.4 % High 10.9-14.2 [facility] Comment on above: Performed By: #### 1 [id number], [id number] ####[address] [address] Hematocrit (Bld) [Volume fraction] 27.9 % Low 37.7-49.0 [facility] Comment on above: Performed By: #### 1 [id number], [id number] ####[address] [address] Hemoglobin (Bld) [Mass/Vol] 9.0 g/dL Low 13.5-17.5 [facility] Comment on above: Performed By: #### 1 [id number], [id number] ####[address] [address] Lymphocytes (Bld) [#/Vol] 0.6 E9/L Low 1.0-4.0 [facility] Comment on above: Performed By: #### 1 4702943, [id number] ####[address] [address] Lymphocytes/100 WBC (Bld) 14.4 % Normal 14.0-50.0 [facility] Comment on above: Performed By: #### 1 [id number], 0135361 ####[address] [address] MCH (RBC) [Entitic mass] 31.0 pg Normal 27.0-34.0 [facility] Comment on above: Performed By: #### 1 9690940, 8623497 ####[address] [address] MCHC (RBC) [Mass/Vol] 32.4 g/dL Normal 31.4-36.0 [facility] Comment on above: Performed By: #### 1 5861957, 8258535 ####[address] [address] MCV (RBC) [Entitic vol] 95.7 fL Normal 80.0-100.0 [facility] Comment on above: Performed By: #### 1 0228923, 2209027 ####[address] [address] Monocytes (Bld) [#/Vol] 0.4 E9/L Normal 0.2-1.0 [facility] Comment on above: Performed By: #### 1 0931327, 9061527 ####[address] [address] Neutrophils (Bld) [#/Vol] 3.0 E9/L Normal 2.0-7.5 [facility] Comment on above: Performed By: #### 1 8228930, 6324819 ####[address] [address] Neutrophils/100 WBC (Bld) 72.5 % Normal 36.0-75.0 [facility] Comment on above: Performed By: #### 1 [id number], 6303336 ####[address] [address] Platelet 187.0 E9/L Normal 150.0-500.0 [facility] Comment on above: Performed By: #### 1 2242876, 1886892 ####[facility] [address] [place] [address] Platelet mean volume (Bld) [Entitic vol] 8.3 fL Normal 6.4-10.8 [facility] Comment on above: Performed By: #### 1 0232009, 9722712 ####[facility] [address] [place] [address] RBC (Bld) [#/Vol] 2.9 E12/L Low 4.3-5.9 [facility] Comment on above: Performed By: #### 1 1167170, 1345076 ####[facility] [address] [place] [address] WBC corrected for nucl RBC Auto (Bld) [#/Vol] 4.1 E9/L Normal 4.0-11.0 [facility] Comment on above: Performed By: #### 1 6101525, 3952766 ####[facility] [address] [place] [address] CHEMISTRYOrdered By: SYSTEM SYSTEM on 10-23-2023 Anion gap [Moles/Vol] 11 mmol/L Normal 6 - 16 mEq/L R emisol Chem Calcium [Mass/Vol] 10.5 mg/dL Normal 8.9 - 11. 1 mg/dL Remisol Chem Chloride [Moles/Vol] 110 mmol/L Normal 101 - 1 11 mmol/L Remisol Chem CO2 [Moles/Vol] 25 mmol/L Normal 21 - 31 mmol/L Remisol Chem Creatinine [Mass/Vol] 2.2 mg/dL High 0.5 - 1.3 mg/dL Remisol Chem eGFR 28 mL/min/1.73 m2 Low >=59mL/min /1 .73 m2 Remisol Chem Glucose [Mass/Vol] 111 mg/dL Normal 55 - 199 mg/dL Remisol Chem Potassium [Moles/Vol] 5.3 mmol/L Normal 3.5 - 5.3 mmol/L Remisol Chem Sodium [Moles/Vol] 141 mmol/L Normal 135 - 145 mmol/L Remisol Chem Urea nitrogen [Mass/Vol] 60 mg/dL High 5 - 21 mg/dL Remisol Chem Urea nitrogen/Creatinine [Mass ratio] 27 mg/mg High 10 - 20 Remisol Chem COAGULATIONOrdered By: Sylvia Urbano on 10-23-2023 aPTT Coag (PPP) [Time] 30.4 s Normal 25.1 - 36.5 second(s) [facility] Auto Coag Comment on above: Interpretive Data: Yosi victoria 15 days - 4 weeks 1 - [...] the same coagulation reagent and instrumentation as [facility]. Currently there are no coagulation studies available worldwide for children to 14 days, and no normal ranges. Heparin therapeutic range (represented by Anti-Factor Xa activity of 0.2 - 0.4 U/mL) corresponds to PTT of 56.6 - 109.0 sec. INR Coag (PPP) [Relative time] 1.13 {INR} Invalid Interpretation Code [facility] Auto Coag Comment on above: Interpretive Data: I NR results are specifically intended to assess patients stabilized on long-term Anticoagulation therapy suggested INR s Less Intensive Anticoagulation 2.0 3.0 Conventional Range 3.0 4.5 PT Coag (PPP) [Time] 12.7 s High 9.4 - 1 2.5 second(s) [facility] Auto Coag Comment on above: Interpretive Data: 1 5 days - 4 weeks 1 - 5 months 6 -11 months 1-5 years 6-10 years 11 -17 years Mean: 11.2 (9.5-12.6) Mean: 11.0 (9.7-12.8) Mean: 11.0 (9.8-13.0) Mean: 11.3 (9.9-13.4) Mean: 11.7 (10.0-14.6) Mean: 11.8 (10.0 - 14.1) Pediatric Reference ranges were obtained from a study by Canelo Gill et al. prepared from 1437 samples obtained at 7 different centers using the same coagulation reagent and instrumentation as [facility]. Currently there are no coagulation studies available worldwide for children to 14 days, and no normal ranges. Consent for Procedure/Surger yon 10-23-2023 Consent for Procedure/Surgery [id number]# 1.00TIFF Normal [facility] Consent for Treatmenton 09-27 Consent for Treatment [id number]#1 .00TIFF Normal [facility] HEMATOLOGYOrdered By: SYSTEM SYSTEM on 10-23-2023 Basophils/100 WBC (Bld) 0.6 % Normal 0.0 - 2.0 % Remisol Heme Basophils/Leukocytes Auto (Bld) [Pure # fraction] 0.0 E9/L Normal 0.0 - 0.2 E9/L Remisol Heme Eosinophils (Bld) [#/Vol] 0.2 E9/L Normal 0.0 - 0.5 E9/L Remisol Heme Eosinophils/100 WBC (Bld) 3.7 % Normal 0.0 - 8.0 % Remisol Heme Erythrocyte distribution width (RBC) [Ratio] 14.4 % High 10.9 - 14.2 % Remisol Heme Hematocrit (Bld) [Volume fraction] 27.9 % Low 37.7 - 49.0 % Remisol Heme Hemoglobin (Bld) [Mass/Vol] 9.0 g/dL Low 13.5 - 17.5 gm/dL Remisol Heme Lymphocytes (Bld) [#/Vol] 0.6 E9/L Low 1.0 - 4.0 E9/L Remisol Heme Lymphocytes/100 WBC (Bld) 14.4 % Normal 14.0 - 50.0 % Remisol Heme MCH (RBC) [Entitic mass] 31.0 pg Normal 27.0 - 34.0 pg Remisol Heme MCHC (RBC) [Mass/Vol] 32.4 g/dL Normal 31.4 - 36.0 gm/dL Remisol Heme MCV (RBC) [Entitic vol] 95.7 fL Normal 80.0 - 100.0 fL Remisol Heme Monocytes (Bld) [#/Vol] 0.4 E9/L Normal 0.2 - 1.0 E9/L Remisol Heme Monocytes/100 WBC (Bld) 8.8 % Normal 4.0 - 14.0 % Remisol Heme Neutrophils (Bld) [#/Vol] 3.0 E9/L Normal 2.0 - 7.5 E9/L Remisol Heme Neutrophils/100 WBC (Bld) 72.5 % Normal 36.0 - 75.0 % Remisol Heme Platelet 187.0 E9/L Normal 150.0 - 500.0 E9/L Remisol Heme Platelet mean volume (Bld) [Entitic vol] 8.3 fL Normal 6.4 - 10.8 fL Remisol Heme RBC (Bld) [#/Vol] 2.9 E12/L Low 4.3 - 5.9 E12/L Remisol Heme WBC corrected for nucl RBC Auto (Bld) [#/Vol] 4.1 E9/L Normal 4.0 - 11.0 E9/L Remisol Heme Outside Recordson 10-23-2023 Outside Records [id number]# 1.00TIFF Normal [facility] PT & PTTon 10-23-2023 aPTT Coag (PPP) [Time] 30.4 second(s) Normal 25.1-36.5 [facility] Comment on above: Result Comment: Para [...] the same coagulation reagent and instrumentation as [facility]. Currently there are no coagulation studies available worldwide for children to 14 days, and no normal ranges. Heparin therapeutic range (represented by Anti-Factor Xa activity of 0.2 - 0.4 U/mL) corresponds to PTT of 56.6 - 109.0 sec. Performed By: #### 1 [id number], [id number] ####[address] [place] [address] INR Coag (PPP) [Relative time] 1.13 {INR} Invalid Interpretation Code [facility] Comment on above: Result Comment: INR results are specifically intended to assess patients stabilized on long-term Anticoagulation therapy suggested INR?s ?Less Intensive Anticoagulation? 2.0 ? 3.0 Conventional Range 3.0 ? 4.5 Performed By: #### 1 [id number], [id number] ####[address] [place] [address] PT Coag (PPP) [Time] 12.7 second(s) High 9.4-12.5 [facility] Comment on above: Result Comment: 15 d ays - 4 weeks 1 - 5 months 6 -11 months 1- 5 years 6-10 years 11 -17 years Mean: 11.2 (9.5-12.6) Mean: 11.0 (9.7-12.8) Mean: 11.0 (9.8-13.0) Mean: 11.3 (9.9-13.4) Mean: 11.7 (10.0-14.6) Mean: 11.8 (10.0 - 14.1) Pediatric Reference ranges were obtained from a study by belinda Connolly al. prepared from 1437 samples obtained at 7 different centers using the same coagulation reagent and instrumentation as [facility]. Currently there are no coagulation studies available worldwide for children to 14 days, and no normal ranges. Performed By: #### 1 [id number], [id number] ####[address] [place] [address] Physician Orderon 10-23-2023 Physician Order [id number] #1.00TIFF Normal [facility] XR Chest 2 Viewson XR Chest 2 Views Exam Date/Time: 10/23/2023 13:56 EDT Reason for Exam: OR 10/23;P.A.T. Report IMPRESSION: NO EVIDENCE OF ACTIVE CHEST DISEASE. CLINICAL HISTORY: P.A.T., OR 10/23. COMMENT: There is a cardiac electrical device on the left, with intracardiac electrode. The heart is normal in size. There is calcification at the aortic arch. There is mild tortuosity of the thoracic aorta. The mediastinum is otherwise unremarkable. The lungs appear clear. No infiltration nor pleural effusion is evident. Ordering Provider: Ward Kraus FINAL REPORT Dictated: 10/23/2023 2:05 pm Jamie Armendariz M.D. Signed (Electronic Signature): 10/23/2023 2:05 pm Signed by: Jamie Armendariz M.D. Transcribed by: CHAITANYA Technologist: XOCHITL Technical Comments Radiation Dose: Ka,r in mGy = na DAP = na Normal [facility] eGFRon 10-23-2023 eGFR 28 mL/min/1.73 m2 Low >=59 [facility] Comment on above: Order Comment: Order added by Discern Expert. 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 Normal [facility] Comment on above: Result Comment: Elec [...] Recorded SARS-CoV-2 (COVID-19 (more content not included)... [facility] Comment on above: Result Comment: Elec tronically Signed By: Greg CHAMBERS, Mary Jane Eddy\.br\Date and Time Signed: 09/30/23 14:51 EST Consultation Noteon 09-09-19 Consultation Note [id number]#1 .00TIFF [facility] Physician Referralon 024 Physician Referral [id number]#1 .00TIFF Normal [facility] Medicine Office/Clini c Noteon 09-04-2023 Family Medicine Office/Clinic Note HPI Staff Ry is a 87 year old male presenting to review x-rays Pt has x-rays done on 08/28/23, CT chest on 08/30/[address] right shoulder 09/02/23 Pt needs refill on furosemide pt states 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 pt referred to GI at [facility]. liver enzymes ordered as well. pt will have labs drawn at [facility]. RTC 1 month to touch base with all of the additional testing and referral we have placed. Ordered: [facility] Internal Ambulatory Referral 2. Nodule of kidney [...] stools and HGB dropped critically low Ordered: [facility] Internal Ambulatory Referral 5. Abnormal x-ray of cervical spine (R93.7: Abnormal findings on diagnostic imaging of other parts of musculoskeletal system) CT of cervical spine ordered 6. Rotator cuff tear (M75.100: Unspecified rotator cuff tear or rupture of unspecified shoulder, not specified as traumatic) pt informed that he has an old rotator cuff tear. pt declines referral to ortho at this time Ordered: [facility] External Ambulatory Referral 7. BMI 31.0-31.9,adult (Z68.31: [...] Recorded influenza virus (more content not included)... [facility] Comment on above: Result Comment: Elec tronically Signed By: Sheng Simms\.br\Date and Time Signed: 09/04/23 12:27 EST Physician Referralon 024 Physician Referral [id number]#1 .00TIFF [facility] Ambulatory Visit Summaryon 0 09-03-2023 Ambulatory Visit Summary RY LENRER :1935 Visit Date:09/03/2023 Ambulatory Visit Instructions Your [...] 10:00 AM EST With: Sheng Simms Where: [facility] Family Medicine [facility] Lab Reportson 09-03-2023 Lab Reports [id number]#1 .00TIFF [facility] Lab Reports [id number]#1 .00TIFF [facility] Physician Orderon 09-03-2023 Physician Order [id number]#1 .00TIFF [facility] Consultation Noteon 08-30-19 Consultation Note [id number]#1 .00TIFF [facility] Physician Orderon 08-30-2023 Physician Order [id number]#1 .00TIFF [facility] Physician Orderon 08-29-2023 Physician Order [id number]#1 .00TIFF [facility] Physician Order [id number]#1 .00TIFF [facility] RAD - MISCon 08-29-2023 RAD - MISC [id number]# 1.00TIFF [facility] RAD - MISC [id number]# 1.00TIFF [facility] RAD - MISC [id number]#1 .00TIFF [facility] Ambulatory Visit Summaryon 0 08-28-2023 Ambulatory Visit [...] 10:20 AM EST With: Sheng Simms Where: [facility] Family Medicine [place] Normal [facility] Family Medicine Office/Clini c Noteon 08-28-2023 Family [...] a difficult (more content not included)... Normal [facility] Comment on above: Result Comment: Elec tronically Signed By: Sheng Simms\.br\Date and Time Signed: 08/28/23 13:35 EST\.br\Electronically Co-Signed By: Rene Brannon\.br\Date and Time Co-Signed: 08/28/23 13:09 EST Formson 08-28-2023 Forms [id number]#1 .00TIFF [facility] Patient Educationon 08-28-19 Patient Education [facility] Fall Prevention in the Home, Adult Falls [...] night-lights. ? Place frequently used items in rcnc-rd-fzhob places. Lower the shelves around your home [...] the way. ? Do not use floor emirati or wax that makes floors slippery. If [...] include working with a physical therapist or technical trainer to improve your strength, balance, and endurance. Where to find more information ? Centers for Disease Control and Prevention, [place]: www.cdc.gov ? National [place] on Aging: www.ed.nih.gov Contact a health care [...] health ca (more content not included)... Normal [facility] Physician Referralon 023 Physician Referral [id number]# 1.00TIFF [facility] Ambulatory Visit Summaryon 1 [...] Follow-Up Appointments Saturday 11:00 AM EST Where: [facility] Medicine [place] Normal [facility] Medicine Office/Clini c Noteon 07-03-2023 [...] is worsening. all questions answered. RTC [facility]. pt will needs CBC and CMP drawn at that visit. Ordered: [facility] External Ambulatory Referral [facility] External Ambulatory Referral 2. Skin texture changes (R23.4: Changes in skin texture) pt has a couple areas on his face that have changes in shape and color and will come off or flake off then comes back. Dr. Silva froze a couple areas a few years ago. will refer to dermatology to manage these areas and his eczema. Ordered: [facility] External Ambulatory Referral [facility] External Ambulatory Referral 3. BMI 31.0-31.9,adult (Z68.31: Body mass index [BMI] 31.0-31.9, adult) BMI education complete Ordered: Body Mass Index (BMI) documented 3008F Current tobacco non-user 1036F Depression Screening Negative 3352F [facility] External Ambulatory Referral [facility] External Ambulatory Referral Influenza immunization status assessed [...] tobacco non-user 1036F Depression Screening Negative 3352F [facility] External Ambulatory Referral [facility] External Ambulatory Referral Influenza immunization status assessed [...] tobacco non-user 1036F Depression Screening Negative 3352F [facility] External Ambulatory Referral [facility] External Ambulatory Referral Influenza immunization status assessed [...] texture changes Historical (more content not included)... [facility] Comment on above: Result Comment: Elec tronically Signed By: Sheng Simms\.br\Date and Time Signed: 07/03/23 12:49 EST Lab Reportson 07-02-2023 Lab Reports [id number]#1 .00TIFF [facility] Office Visiton 05-15-2023 Follow-up visit [id number] Ry Lerner 1935 M Date Provider Department Center 05/15/2023 CHARISSE [place] Family History Family history unknown: Yes Level of Service:03070 MS OFFICE/OUTPATIENT ESTABLISHED MOD MDM 30-39 MIN [facility] Physician Referralon 023 Physician Referral [id number]#1 .00CD:127 [facility] Consultation Noteon 03-11-20 Consultation Note [id number]#1 .00CD:127 [facility] Office Visiton 02-08-2023 Follow-up visit [id number] Ry Lerner 1935 M Date Provider Department Center 02/08/2023 Maame6-CHARISSE GAY [facility] Family History Family history unknown: Yes Level of Service:58563 MS OFFICE/OUTPATIENT ESTABLISHED MOD MDM 30-39 MIN Normal [facility] Family Medicine Office/Clini c Noteon 01-23-2023 [...] at this time. Patient was treated at [facility]. Questions/Concerns: History of Present Illness pt presents [...] to follow up with Dr. Vargas in [place] and also placed a GI consult. since then his so he has not made any of those appointments. pt wants to stop taking lasix. encouraged daughter to make appointment with Dr. Vargas and let him decide if he can stop lasix. will draw pt/ptt in office today and compare to labs that were drawn in [place] end of November. still waiting for those labs. will call pt tomorrow once we have lab results. omeprazole refills also sent to pharmacy. 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 Dr. Vargas's office was called notified. and [...] 06/13/2020 Recorded (more content not included)... Normal [facility] Comment on above: Result Comment: Elec tronically Signed By: Sheng Simms\.viviane\Date and Time Signed: 01/23/23 16:36 EDT Auto Diffon 01-22-2023 Basophils/100 WBC (Bld) 0.5 % Normal 0.0-2.0 [facility] Comment on above: Order Comment: Order Added by Discern Expert. Performed By: #### 2 805114, 6463724, [id number], [id number] #### [facility] Laboratory [address] [place] [address] Basophils/Leukocytes Auto (Bld) [Pure # fraction] 0.0 E9/L Normal 0.0-0.2 [facility] Comment on above: Order Comment: Order Added by Discern Expert. Performed By: #### 2 629129, 8480183, [id number], 4361304 #### [facility] Laboratory [address] [place] [address] Eosinophils/100 WBC (Bld) 4.7 % Normal 0.0-8.0 [facility] Comment on above: Order Comment: Order Added by Discern Expert. Performed By: #### 2 040826, 5606755, [id number], [id number] #### [facility] Laboratory [address] [place] [address] Eosinophils/Leukocyte s Auto (Bld) [Pure # fraction] 0.2 E9/L Normal 0.0-0.5 [facility] Comment on above: Order Comment: Order Added by Discern Expert. Performed By: #### 2 772489, 4997202, 31039865, 2500477 #### [facility] Laboratory [address] [place] [address] Lymphocytes/100 WBC (Bld) 20.4 % Normal 14.0-50.0 [facility] Comment on above: Order Comment: Order Added by Discern Expert. Performed By: #### 2 946451, 4229918, 65842607, 5180997 #### [facility] Laboratory [address] [place] [address] Lymphocytes/Leukocyte s Auto (Bld) [Pure # fraction] 0.8 E9/L Low 1.0-4.0 [facility] Comment on above: Order Comment: Order Added by Discern Expert. Performed By: #### 2 306617, 7950060, 71640385, 5253141 #### [facility] Laboratory [address] [place] [address] Monocytes/100 WBC (Bld) 7.6 % Normal 4.0-14.0 [facility] Comment on above: Order Comment: Order Added by Discern Expert. Performed By: #### 2 607069, 2994421, 86296844, 5118315 #### [facility] Laboratory [address] [place] [address] Monocytes/Leukocytes Auto (Bld) [Pure # fraction] 0.3 E9/L Normal 0.2-1.0 [facility] Comment on above: Order Comment: Order Added by Discern Expert. Performed By: #### 2 946092, 9765429, 23762071, 1175714 #### [facility] Laboratory [address] [place] [address] Neutrophils/100 WBC (Bld) 66.8 % Normal 36.0-75.0 [facility] Comment on above: Order Comment: Order Added by Discern Expert. Performed By: #### 2 839386, 8150138, 45350899, 4077212 #### [facility] Laboratory [address] [place] [address] Neutrophils/Leukocyte s Auto (Bld) [Pure # fraction] 2.5 E9/L Normal 2.0-7.5 [facility] Comment on above: Order Comment: Order Added by Discern Expert. Performed By: #### 2 356525, 9131587, 91983902, 4281051 #### [facility] Laboratory [address] [place] [address] CBC w/ Auto Diffon Erythrocyte distribution width (RBC) [Ratio] 14.1 % Normal 10.9-14.2 [facility] Comment on above: Performed By: #### 2 180892, 3225246, 37447537, 3872705 #### [facility] Laboratory [address] [place] [address] Hematocrit (Bld) [Volume fraction] 29.2 % Low 37.7-49.0 [facility] Comment on above: Performed By: #### 2 399546, 2502038, 77400890, 6625432 #### [facility] Laboratory [address] [place] [address] Hemoglobin (Bld) [Mass/Vol] 9.7 g/dL Low 13.5-17.5 [facility] Comment on above: Performed By: #### 2 544770, 7700122, 37661847, 1711025 #### [facility] Laboratory [address] [place] [address] MCH (RBC) [Entitic mass] 32.2 pg Normal 27.0-34.0 [facility] Comment on above: Performed By: #### 2 408651, 7521603, 86853978, 1842565 #### [facility] Laboratory [address] [place] [address] MCHC (RBC) [Mass/Vol] 33.4 g/dL Normal 31.4-36.0 [facility] Comment on above: Performed By: #### 2 791772, 3541398, 61099588, 8708942 #### [facility] Laboratory [address] [place] [address] MCV (RBC) [Entitic vol] 96.3 fL Normal 80.0-100.0 [facility] Comment on above: Performed By: #### 2 699233, 6797048, 51760331, 7820688 #### [facility] Laboratory [address] [place] [address] [id number] Platelet mean volume (Bld) [Entitic vol] 9.1 fL Normal 6.4-10.8 [facility] Comment on above: Performed By: #### 2 [id number], [id number], [id number], [id number] #### [facility] [address] [place] [address] 69453 Platelets (Bld) [#/Vol] 138.0 E9/L Low 150.0-500.0 [facility] Comment on above: Performed By: #### 2 [id number], [id number], [id number], [id number] #### [facility] [address] [place] [address] 55889 RBC (Bld) [#/Vol] 3.0 E12/L Low 4.3-5.9 [facility] Comment on above: Performed By: #### 2 205985, [id number], [id number], [id number] #### [facility] [address] [place] [address] 24231 WBC corrected for nucl RBC Auto (Bld) [#/Vol] 3.8 E9/L Low 4.0-11.0 [facility] Comment on above: Performed By: #### 2 512286, [id number], [id number], [id number] #### [facility] [address] [place] [address] Lyteson 01-22-2023 Anion gap [Moles/Vol] 15 mmol/L Normal 6-16 [facility] Comment on above: Performed By: #### 2 936750, [id number], [id number], [id number] #### [facility] [address] [place] [address] Chloride [Moles/Vol] 108 mmol/L Normal 101-111 [facility] Comment on above: Performed By: #### 2 312162, [id number], [id number], [id number] #### [facility] [address] [place] [address] CO2 [Moles/Vol] 24 mmol/L Normal 21-31 [facility] Comment on above: Performed By: #### 2 654121, 5345176, [id number], [id number] #### [facility] [address] [facility] [place] [address] Potassium [Moles/Vol] 4.8 mmol/L Normal 3.5-5.3 [facility] Comment on above: Performed By: #### 2 860541, 4055963, [id number], [id number] #### [facility] [address] [facility] [place] [address] Sodium [Moles/Vol] 142 mmol/L Normal 135-145 [facility] Comment on above: Performed By: #### 2 994531, 7561646, [id number], [id number] #### [facility] [address] [place] [address] PT & PTTon 01-22-2023 aPTT Coag (PPP) [Time] 29.6 second(s) Normal 25.1-36.5 [facility] Comment on above: Result Comment: Para meter 15 days - 4 weeks 1 - 5 months 6 - 11 months 1 - 5 years 6 - 10 years 11 - 17 years PTT Mean: 35.4 (27.6-45.6) Mean: 33.5 (24.8-40.7) Mean: 32.4 (25.1-40.7) Mean: 31.6 (24.0-39.2) Mean: 31.6 (26.9-38.7) Mean: 31.0 (24.6-38.4) Pediatric Reference ranges were obtained from a study by sidney Connolly prepared from 1437 samples obtained at 7 different centers using the same coagulation reagent and instrumentation as [facility]. Currently there are no coagulation studies available worldwide for children to 14 days, and no normal ranges. Heparin therapeutic range (represented by Anti-Factor Xa activity of 0.2 - 0.4 U/mL) corresponds to PTT of 56.6 - 109.0 sec. Performed By: #### 2 385278, [id number], [id number], [id number] #### [facility] [address] [place] [address] INR Coag (PPP) [Relative time] 1.1 {INR} Invalid Interpretation Code [facility] Comment on above: Result Comment: INR results are specifically intended to assess patients stabilized on long-term Anticoagulation therapy suggested INR?s ?Less Intensive Anticoagulation? 2.0 ? 3.0 Conventional Range 3.0 ? 4.5 Performed By: #### 2 597064, 5745466, [id number], [id number] #### [facility] [address] [place] [address] PT Coag (PPP) [Time] 12.2 second(s) Normal 9.4-12.5 [facility] Comment on above: Result Comment: 15 [...] ranges were obtained from a study by sidney Connolly prepared from 1437 samples obtained at 7 different centers using the same coagulation reagent and instrumentation as [facility]. Currently there are no coagulation studies available worldwide for children to 14 days, and no normal ranges. Performed By: #### 2 861103, 8150974, [id number], [id number] #### [facility] [address] [address] Coding Summaryon 01-01-2023 Coding Summary HTMLBase 64 QthmjmdfKRl6bXr+PGhlY WQ+TR9SSJJoJ27fiLZuyA 6eC6LEHDaHTbeeGWSRXUx QOmZnkbPkFG4gsWTmIYLn IC8+RI8kFBWxHjuniREqi 6H8lBL3W33ckb5vSUpgaH K2VYOqSqJqhylui4biuZs 6IDcuNmluOyBt QCLdoM16UDP5iV45Ja44z VSnuQQqs6icpRf2MrXgUJ KiRXX1vKynSMzhv7HgIHN iI40pqNKoj3E7 MGSypHunzUSjLlZgoSP5t I8jCBoppioeq8haykfvGd a5wf65qMKkg0Q5sHQ4Q0J catP4DDWoyYMh PxwejKREtW6zjmpmd2tsm nlnSoQlEWQiYPl5YQm7RO NylDtdRvKjXD22OYH2KJT ugzWyR4VeHOWi vMfqAqE4y2K5Jo4CS3AIA ltsT2UDCGEDEWeysRE+PC 67fu17H2EcEayrHda2YSA fEFF9iIO6gM8z KDKrXHryf8K9aLW3O0Zdq xCknv2vh5jpXYKeSZgnP6 6oiZZzu0E6JVRybIC6VLC ztKqoEgXrnD94 Oyc+JZIltGiph8HkGyhlq 2iqx1dzuUe5HndlTSRkpp JshEtoCYO1u8VqLv2aELN ktCX5kXP2oR3q JsIkFnF0UZabM109FhFnv AHjHbafH25mV1MasJG+PH TwVoc5GCBidWntND8sL6H hZGRpbmctbGVm gOtyHF6eCRUknmlwDDOem T9sXITcY7y2VgWqOyI7UH hdG5WaKZYqmhrvTw20vK9 mDpGnTvA6VIad Z5KtrqA9XAPawPPkZBedU ET5P13zp5V0BZTcGBKyGW V2zTN1dR3jhGwcyuoriPO mdDsgdmVydGlj EHjeZSvaI580BKBjbFnxO kNvZGluZyBEYXRlOiAgMD YvMDYvMjAyMzwvdGQ+PHR yHQM0jJprXFHu qMGwIUoiEz8gwOxjkLxpV Q3zAPGgtbntGUTmlA9lWK WiwOKjpRyhXL7jQDTeius ba916JlYjKHT6 IUCwqPUnE4IwrY7mKjGeE SOaCETpV0JuuMJnLAesA2 00JBwfLbM6ZHTyucCaU1E sLWFsaWduOiB0 x3D8Dw4Vt3KhhnjfY6Jkb NQsTbHeKnrmZYw2I2SrXv wvdHI+SS83FDMhBW97FOf 5XEJ3sSjtOJav THXdT2MhqW0fWaBlCAUgR GRkOyc+PHRhYmxlIHdpZH RoPScxMDAlJyBzdHlsZT0 iEg2qBAZuCTYi pDtxjTXgQvXod0imZCAsG UycXY6rkLyhB8LfxPH2FT Kof4g0Fb53M27nB9NvpRM +VIOkgRF9oUN9 uV5xTqAxMeT8SStpD558E sFtwUFkEzpyc6plu8rbiL z8UmT7PAOlrbSalXkmTUJ 0y4ZdVs63E38b IHdpZHRoPSIxNSUiIHZhb Rwtpj2yhU2sUb1+PGNvbC Y3jIJ9uY6wVsJgGsS0MJf pR803QsOxsAOq Ruwnn1gvj5garGi2WqEcL ZJeldOtcGcbGLV8o1XfDm 88O2VdjLxer7UvOhg3lz4 8uDTqh8J8uWA4 Y3ClFFHdfwcciASguXrfD S5aXZZvqdxfENNsnV5nRM UxE2k6WnNxIiL3ONjvY9C wgbA5DZCryQBj ORHqgEBIjT6egzpck7sbl xnlDbEwHELtGOk7AXn0KV XznKfvZzFnTVD7ErS8OTX 1mJJdiK5kdVpu wjabaA3zDlc+YKZ5tUTpc JUVPQ3rJnstnEM+PHRkIH G3sAakQRsiEQYzrS6vNKV bG4s8XqZuBwC8 VRqiP6LfsvJ9UINsrGCdQ FQzwYDSlO7gbczbw2rtxn peDqSvLXQmKNh2XEw5WXO saWduOiBsZWZ0 OlE1UVW1eAZsnC3ppPabp wracS9aAnf+QmlydGggRG V8CVi1J4QrZfv4XJZwaGm zJT7xdSOtIUws Rk2khZthsQlzWG2wOOXym eode375PvOhk4fvIDLkfB LhNGfwJDP8Q71cp6N4ELQ nXBIlFXH0zSP4 nZ8gnJkoadykxQPlxVyvk bCdsPwqSFthGLxxQ962SO OxpHloYtEzWRl2I2IfZvo 7HKMauJnpCB8i hQSsEUqyCg0sqSmckGafW N1hYJDhkxosw738SkHgi5 woARJiuAYdXSbeDOR1V39 qm5N4TOMnCYJk HHH0kES9sB1fiTrmvtqox GVmdDsgdmVydGljYWwtYW hdH804KVXehHtsZnAdbVg 5K0ZgRbj2LIUa jPhsUY3sgSDaYVxtCo3vq HhvsSfxHQ1gFXMlyspdt7 04UpUvc6lrFSAisZBuUMn oBNO3C84sa7X7 YNSgBAXvPCG0tCP9lW3dx GlnbjogbGVmdDsgdmVydG tsIGxmHIklE457HULsuZm nPlBhdGllbnQg ISaeUWb4V5ZpAtxdyVE+P D29JFVpEH18yMEfsLUar8 ldpRa9SjTyHUOhULM5tWe jQFxoe9OuZKWx D35ftUZrp2M1YYZfhYmno TZkWjXfdXG2xQ9aGVpfat xtp0xilcqlWoima0glbf0 6hI29U03pILyx ZHRoPSIzMCUiIHZhbGlnb l7hdL4lYy4+SDUbiSZ4wM I8aO8aWQPjTvV7DYybE81 9InRvcCIvPjxj y5qwx8dsoVk4WtD1IOToe mNiyFsoHJX6h5OiTz15V1 9sIHdpZHRoPSIyMCUiIHZ isQtata4okF1f Ii8+JPGwvOE9tWA5qH4gM qAsToU0ZZyeU343BgDpuN OcKudtB06eI6BezAZ+PHR kCfg2MDIhxTxv VS5dxKSnTKebEs2xTOY2A sNyMyRtJTluN6XbVNDzyo ggkkgphRP3KHQjGIFsaZ1 6Wm4waHsbVIRx eTLJvZ1jvdcqf3sdumdmZ tKjRRXvJOg5ZGp7OGWtiI kiLuXaXYJ0XmE5FVC2wIL kwT1efRxpoatf jS7tC6OaRMKqdrthXk90l R4fZhIiYwU6FSrsScd+TU zKYDUUJXSXSSVJOD4NZPs MW91UTK98DM69 aGCmn6G9zJN3Q6FjVYCsf oaznadsgRX6RMGmUCBxlC 59rYIpBOjqFd6az0K9v95 5GHNsRXYfyZ55 Pt1giCofVTDmeXTSbZ0cd owbk4agasadRxAjZVJrUI x4RTz2QPNqsEmgAxBfFPS 1WrG3TYO5tEIf aE0ewJoetbqpsH8sKza+M DMvMDQvMTkzNTwvdGQ+PH ApBVT9kOwbVVtzLIZxnT5 uDUDqM6t4JrZa HjZ6ZVtyE3IxSZDcdwhtM l30cP1eJbVrXsP4ZFxzJ0 EuxbA5ANPceDNaRGwoUNO 6G17bf1O7EFFd CIRwJOV3xWZ5vO0oyJdbk jogbGVmdDsgdmVydGljYW ikPXxoB933MXNdcPvkPui 9HNsvSQHhOH87 VB39mFFpa3D2mKG9C4KdP DTwnlrxlevooUX9QKWxON SjxA52mVPjPIreBp0ae0E 8u582XDIqEFUb uP56Qm3szIqyHHXhtVGRb R5xbzyti3mpicmvXcQiWH QvYXc6KHl8SHWumIyrSvM qYHC1NmG8QJB2 rLYddY6txWwkbokogQ8pE yc+TUFMRTwvdGQ+PHRkIH R7jGwbYRacFWGfkH2yTJW cV6a1PuLiOzW3 TGgrW0MvGBCgruurXn78g X0wIeLzOdP3KXogY9Fewa P2GIWcfTVsOJvwGZN0J08 se2W1FPOqCXRa UXQ8vON7vR4ucTpiciwec GVmdDsgdmVydGljYWwtYW dbE415MGGueGveYiOlmIQ KyXVePOW2ST34 NC81Y8HtEgqnjROcoHK+P HRhYmxlIHdpZHRoPScxMD QwIuXkkXyaVR4zHe5bSJW yLWNvbGxhcHNl CmChc6jzWSPkQLjnOI3mi TvvR6BuoGD7VWDbh2i0Yi 51R19oM7PljOT+PGNvbCB 8eWN8bE0aFsKw IaV6LUqwH801QnJwrDBtH bzkv0efu0zptLs8CzAaTA EkjmWnsBloXZB8o7GhBh7 3G52yHFfaOKGj RGXyVHQpHBHlmRscda0yg G9wIi8+GWCovMU9rZD6tM 7iTvHgQdV7BXqwH672IwN uqPEyAnuzA60a G4AbgKL+AYBgRqr8QUYts ZinIW9eyZXsORwwPd0iQM M9GmPcUfFsJTpkU4AhETW pbmctcmlnaHQ6 QRUwTATxhI88Mj4xjHpuQ c7dQWTcGCK1YRLozJEmN0 VamT5gXnZiMGHnWBLjW9T xfURfMYelF167 MVuhPxE6OYNeabEqD3YpB RDxmQhaJtB9t6X7Ae5TxW odfRSeEF5oPqEiXZp3C1R fOmz9KXNhtEzp TW1zbYRwHXdyMa4xxTuwe BxuJG1pHQEfmmjxq462Ia Myd6erVBDbjRUkZOewINL 5T21ex5J1SEJd UOGpKYT5jDV6qP8taQdrp jogbGVmdDsgdmVydGljYW bzAGcmX370ETNtjWztTaP ZTdb3W6UzWnh2 MWXknIveLF0poRQnRFwbY r6xdRfqbYwwZH4zAYBlwd grh810AhGsq2acOMPbnHC vUKypQKL4Y68x y8E1CYZgGGHdGPZ3cVA0p T1daDfexxazfWYnqUvgjp WhlLjuEXhmXBqpK459WBY tgKfvSt6HUhf9 D6SsItz3EEBxbXexQD6zk QMdNWkpPe3hbYgwjLjpII 2jPCTylyrta802BoEds2d kIDEwcHQgVGlt VLE5Y35pp5J2QGFyZVPmA RN2mBH9uO0dsOvxmcwuiE VmdDsgdmVydGljYWwtYWx wH229XOMqwDol PlBheWVyOjwvdGQ+PC90c k10K0UpZcccFsw3RNWeSX G2tSP6lP1cNNNyRXyfm9R 2bCQ7T2WnelQk ci1 (more content not included)... [facility] Consent Formson 01-01-2023 Consent Forms [id number] .[id number] [facility] Inpatient Patient Summaryon 12-31-2022 [place] [address] Patient Discharge Instructions Name: RY LERNER : 1935 Patient Address: [address] [place] [address] Primary Care Provider: Name: John Nieves MD After you are discharged if you find you have any questions, please, call [phone] ext [phone] to speak to a nurse. Discharge Diagnosis: Carpal tunnel syndrome, right Prescription Information: If you have been given a prescription for narcotics, seek immediate medical attention if you have any difficulty breathing or any sudden status changes such as confusion and sleepiness. If you or anyone you know is experiencing suicidal thoughts, mental health, alcohol and/or drug addiction problems; contact the [facility] 18/02 Crisis Hotline -Text 4HYIL qq 706979. If you received any narcotics, sedation, or [...] business decisions or sign any legal documents [facility] would like to thank you for allowing us to assist you with your healthcare needs. The following includes patient education materials and information regarding your injury/illness. TOI LERNERDENIA AMADOR has been given the following list of follow-up instructions, prescriptions, and patient education materials: Follow-up Instructions With: Address: When: MARJ PEREZ [address] [place] [address], [address] [place] [id number] Business (1) 01/09/2023 11:00 AM Medications During [...] 1 cap(s) Oral every day. Lindsey's wort ([place]'s wort oral tablet) 1 tab(s) Oral 2 [...] 1 cap(s) Oral every day. Lindsey's wort ([place]'s wort oral tablet) 1 tab(s) Oral 2 [...] 3. DO NOT lift heavy objects or greeter forcefully with your hand 4. Change your [...] or concerns, please call the office at [phone] 7. Follow up as scheduled Viruses or Bacteria What?s got you sick? Antibiotics only treat bacterial infections. Viral illnesses cannot be treated with antibiotics. When an antibiotic is not prescribed, ask your healthcare professional for tips on how to relieve symptoms and feel better. Usual Cause Illness Viruses Bacteria Antibiotic Neede (more content not included)... Normal [facility] Lab Reportson 12-31-2022 Lab Reports [id number]#1 .00CD:127 Normal [facility] MAGR Intraoperative Recordon 12-31-2022 MAGR Intraoperative Record MAGR Intra-Op Record Summary Primary Physician: Ward Martinez DO Finalized Date/Time: 12/31/22 11:56:55 Pt. Name: RY LERNER/Sex: 1935 MALE Med Rec #: [id number] Physician: Ward Martinez DO Financial #: [id number] Pt. Type: D Room/Bed: / Admit/Disch: 12/31/22 [...] RN, DO Role Performed Surgeon - Primary Hospital Account Manager Hospital Account Manager Time In 12/31/22 09:15:00 12/31/22 09:15:00 12/31/22 09:15:00 Time Out 12/31/22 09:37:00 12/31/22 09:46:00 12/31/22 09:46:00 Procedure Carpal Tunnel Carpal Tunnel Carpal Tunnel Release(Right) Release(Right) Release(Right) Last Modified By: [place] PERSAUD, Chelita Borjas RN, Chelita Mc RN 12/31/22 09:49:26 12/31/22 09:49:26 12/31/22 09:49:26 Entry 4 Entry 5 Case Attendee Lavern Vasques Kelly CST SOCIAL WORKER DELINQUENCY PREVENTION Role Performed [employer] Manager Scrub Personnel Time In 12/31/22 09:15:00 12/31/22 09:15:00 Time Out 12/31/22 09:46:00 12/31/22 09:46:00 Procedure Carpal Tunnel Carpal Tunnel Release(Right) Release(Right) Last Modified By: [place] PERSAUD, Chelita Mc RN 12/31/22 09:49:26 12/31/22 09:49:26 Surgical Procedures MAGR [...] By Chelita Borjas RN Scrub 10% Povidone-Iodine [place] Prep Area (Im.270) Elbow and forearm, Prep Area Details Right Hand, Wrist Skin Prep Agent Dry Yes Without Pooling Hair Removal Syntegrity Hair Removal Methods No hair removal performed Outcome Met (O.100) Yes Last Modified By: Chelita Borjas RN 12/31/22 11:55:12 Pos (more content not included)... [facility] 12-31-2022 MAGR Preoperative Record MAGR Pre-Op Record Summary Primary Physician: Ward Martinez DO Finalized Date/Time: 12/31/22 09:13:14 Pt. Name: RY LERNER PERRY /Sex: 1935 MALE Med Rec #: [id number] Physician: Ward Martinez DO Financial #: [id number] Pt. Type: D Room/Bed: / Admit/Disch: 12/31/22 [...] By: Vicky Ponce RN 12/31/22 09:13 Normal [facility] Patient Handouton 12-31-[address] 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 Keep your hand elevated above your elbow for the first 24 hours after surgery 2. Wiggle your fingers frequently while awake 3. DO NOT lift heavy objects or greeter forcefully with your hand 4. Change your [...] or concerns, please call the office at [phone] 7. Follow up as scheduled [facility] Physician Referralon 023 Physician Referral [id number] 1.00CD:127 Normal [facility] Living Will/POAon 12-26-2022 Living Will/POA [id number] .00CD:127 Normal [facility] CBC AUTO DIFFon 12-25-2022 BASO # 0.0 103/ul Normal 0.0-0.1 [facility] Comment on above: Performed By: #### C BC #### [facility] [address] [place] [address] Dr. Rashmi Nolan Basophils/100 WBC (Bld) 0.6 % Normal 0.2-2.0 [facility] Comment on above: Performed By: #### C BC #### [facility] [address] [place] [address] Dr. Rashmi Nolan EO # 0.2 103/ul Normal 0.0-0.7 [facility] Comment on above: Performed By: #### C BC #### [facility] [address] [place] [address] [address] Rasmhi Nolan Eosinophils/100 WBC (Bld) 6.9 % Normal 0.9-7.0 [facility] Comment on above: Performed By: #### C BC #### [facility] [address] [place] [address] Dr. Rashmi Nolan Erythrocyte distribution width (RBC) [Ratio] 14.0 % Normal 11.0-15.0 [facility] Comment on above: Performed By: #### C BC #### [facility] [address] [place] [address] Dr. Rashmi Nolan Hematocrit (Bld) [Volume fraction] 29.8 % Critically low 42.0-54.0 [facility] Comment on above: Performed By: #### C BC #### [facility] [address] [place] [address] Dr. Rashmi Nolan Hemoglobin (Bld) [Mass/Vol] 9.8 g/dL Critically low 14.0-18.0 [facility] Comment on above: Performed By: #### C BC #### [facility] [address] [place] [address] Dr. Rashmi Nolan IG # 0.02 10e3/ul Normal 0.00-0.03 [facility] Comment on above: Performed By: #### C BC #### [facility] [address] [place] [address] Dr. Rashmi Nolan IG % 0.6 % Critically high 0.0-0.5 [facility] Comment on above: Performed By: #### C BC #### [facility] [address] [place] [address] Dr. Rashmi Nolan LYMPH # 0.8 103/ul Critically low 1.2-3.8 [facility] Comment on above: Performed By: #### C BC #### [facility] [address] [place] [address] Dr. Rashmi Nolan Lymphocytes/100 WBC (Bld) 25.1 % Normal 20.5-60.0 [facility] Comment on above: Performed By: #### C BC #### [facility] [address] [place] [address] Dr. Rashmi Nolan MANUAL DIFF REQ NO Normal [facility] Comment on above: Performed By: #### C BC #### [facility] [address] [place] [address] Dr. Rashmi Nolan MCH (RBC) [Entitic mass] 33.0 pg Normal 25.9-34.0 [facility] Comment on above: Performed By: #### C BC #### [facility] [address] [place] [address] Dr. Rashmi Nolan MCHC (RBC) [Mass/Vol] 32.9 g/dL Normal 29.9-35.2 [facility] Comment on above: Performed By: #### C BC #### [facility] [address] [place] [address] Dr. Rashmi Nolan MCV (RBC) [Entitic vol] 100.3 fL Critically high 80.0-94.0 [facility] Comment on above: Performed By: #### C BC #### [facility] [address] [place] [address] Dr. Rashmi Nolan MONO # 0.3 103/ul Normal 0.3-0.8 [facility] Comment on above: Performed By: #### C BC #### [facility] [address] [place] [address] Dr. Rashmi Nolan Monocytes/100 WBC (Bld) 9.6 % Normal 1.7-12.0 [facility] Comment on above: Performed By: #### C BC #### [facility] [address] [place] [address] Dr. Rashmi Nolan NEUT # 1.9 103/ul Normal 1.4-6.5 [facility] Comment on above: Performed By: #### C BC #### [facility] [address] [place] [address] Dr. Rashmi Nolan Neutrophils/100 WBC (Bld) 57.2 % Normal 43.0-75.0 [facility] Comment on above: Performed By: #### C BC #### [facility] [address] [place] [address] [address] Rashmi Nolan Platelet mean volume (Bld) [Entitic vol] 10.5 fL Normal 9.5-13.5 [facility] Comment on above: Performed By: #### C BC #### [facility] [address] [place] [address] [address] Rashmi Nolan PLT 129 103/ul Critically low 150-450 [facility] Comment on above: Performed By: #### C BC #### [facility] [address] [place] [address] [address] Rashmi Nolan RBC 2.97 106/ul Critically low 4.70-6.10 [facility] Comment on above: Performed By: #### C BC #### [facility] [address] [place] [address] Dr. Rashmi Nolan WBC 3.3 103/ul Critically low 4.0-11.0 [facility] Comment on above: Performed By: #### C BC #### [facility] [address] [place] [address] Dr. Rashmi Nolan PROTIMEon 12-25-2022 INR Coag (PPP) [Relative time] 1.03 {INR} Normal [facility] Comment on above: Performed By: #### B MP #### [facility] [address] [place] [address] Dr. Rasmhi Nolan INR GUIDELINES SEE BELOW Normal [facility] Comment on above: Result Comment: ENOC RED INR: 2.0 - 3.0 CONDITIONS NOT LISTED BELOW 2.5 - 3.5 FOR PROSTHETIC HEART VALVE REPLACEMENT 2.5 - 3.5 RECURRENT THROMBOSIS Performed By: #### B MP #### [facility] [address] [place] [address] Dr. Rashmi Nolan PT Coag (PPP) [Time] 10.9 s Normal 9.0-11.6 [facility] Comment on above: Performed By: #### B MP #### [facility] [address] [place] [address] Dr. Rashmi Nolan PTTon 12-25-2022 aPTT Coag (Bld) [Time] 25.6 s Normal 22.3-36.2 [facility] Comment on above: Performed By: #### C #### [facility] [address] [place], [place] [address] Dr. Rashmi Nolan Ambulatory Visit Summaryon 0 [...] numbers. This can be done either in [place] ([place] or metric measurements. Note that charts and online BMI calculators are available to help you find your BMI quickly and easily without having to do these calculations yourself. To calculate your BMI in [place] measurements: 1. Measure your weight in [...] fat. ? (more content not included)... Normal [facility] Family Medicine Office/Clini c Noteon 12-21-2022 Family Medicine Office/Clinic Note Chief Complaint Hospital stay follow up HPI Staff Presents for hospital follow up [facility] 12/11-12/14 bleeding ulcer/bloody stools Had Upper and lower scope done. found diverticulosis and bleeding ulcer. Questions/concerns: eczema, why needs to stay on Lasix, why taken off warfarin when to start back up. History of Present Illness pt presents today fro follow up for admission to [facility] for GI bleed Review of Systems [...] today for follow up from admission to [facility] for GI bleed. he received 2 units of blood. and had egd and colonsocopy that show a gastic ulcer and diverticulosis. he was cleared by GI yesterday. he remains off of his warfrin for now. Dr. Silva spoke to Dr. Black ([facility] coin machine collector) and he was ok with keeping him [...] numbers. This can be done either in [place] or metric measurements. Note that charts and online BMI calculators are available to help you find your BMI quickly and easily without having to do these calculations yourself. To calculate your BMI in [place] measurements: 1. Measure your weight in [...] for Disease Control and Prevention: www.cdc.gov ? [place] [employer]: www.heart.org ? National Heart, Lung, and Blood [place]: www.nhlbi.nih.gov Summary ? Body mass index (BMI) is a number that is calculated from a person's weight and height. ? BMI may help estimate how much of a person's weight is composed of fat. BMI can help identify those who may be at higher risk for certain medical problems. ? BMI can be measured using [place] measurements or metric measurements. ? BMI charts are used to identify whether you are underweight, normal weight, overweight, or obese. This information is not intended to replace advice given to you by your health care provider. Make sure you discuss any questions you have with your health care provider. Document Revised: 04/06/2020 Document Reviewed: 02/12/2020 [facility] Patient Education ? 2022 [facility] [employer] [facility] Coding Summaryon 12-19-2022 Coding Summary HTMLBase 64 JnyoevapKHz5nSi+PGhlY WQ+LS8FGUCtF44plZTgsW 2mH5XWKHxJSuhwLZZHTSm YCvMucbLzUL5jkFPsAUEc IC8+ZG1sQELdPxfnkIAmq 6H0xIW2E74exy7hGOqlcL P5GALbNgEfusljp8ybvHf 6IDcuNmluOyBt UWRsbP90ECL2tS80Iy20o ELfmERbc5rvuRa1RcJuOG GnTLJ1iPqiTErei9QvUKJ sU73drVSay9V5 ACWveGpckLEpTuFtqIC3k X3sPVswzwwvn2gnoclcFs a7pe50rTNtp2S7rLA4M3O rnbL1IGRhpTVt GknuqKTWeD7iebgba9ilf gvxHmUeZIGoYJh0BXz5GZ UvwNzbGtDrIC30NOW5SGL araQkD4OmGKHv lEqwTqI8t9P7Oi8JJ5MHT qvyA4FQDTLFSCpapBJ+PC 57ek50C6KtKnebFqw0IPS tDPG5kRB0dK2m QVErBKemv6O4bOB9N9Lmq oKuvy6qv9szELKzFQofN1 1uwNVrf5S6NVXfwRE1LMT toCcuAeZkuU58 Oyc+TQVsyBhpn1XoPaivn 6pmr9vbrRj2CkuaIMIhqd YrkPcuGHO6k2WhGx9cUDL xwYE8sNR9aU0j FtGzIjH5EJvcV091DlIlh XDrYxfvE91oW0CpiAO+PH PlPiq1SZZlkWikML4zV3R hZGRpbmctbGVm zTszGV8iUSHefqsrFLByj I6lMRVtT7h8PoCgGkI5TX yfA3BsMBAnwhzsQa53aF1 xCaVoLfW7XHnk Y2ZdyhL5OXIgwWMyQVezB AQ3P65go9L8NJVvBGUjLC H7bXY0yU1ivUftkjytjLA mdDsgdmVydGlj ZXcgYEsyP421LJBhiVnqA kNvZGluZyBEYXRlOiAgMD UvMjQvMjAyMzwvdGQ+PHR zYOD4vUjnKRHx bXYiPOqyYw7yiVycxVzrZ Q9qLAWweaifWGAzaM5oFN LoqYVdrHwgSN1zAPZrtlj du713WrMwFVC6 QTKxfPMbF3NaaI5cGgCdE SFkETKbK1FznAGhEIfeD6 81GFniYqP2GDCzdaVrJ9Z sLWFsaWduOiB0 q1U0Kn0Jv4LqqkikR3Pvv YJzZeNxHmziCCq9L5QnUu wvdHI+JZ76IUOqOA94PBf 8QHM6mEaeZVsu RKQsH2EnaS1fKdIsYSEvV GRkOyc+PHRhYmxlIHdpZH RoPScxMDAlJyBzdHlsZT0 kPa3lKHHuBDHo aCisiCOkOzYrp5bkLGXhC YbjXG2esHjyH7FeaGJ9NV Yhb7i8Xx86M59rF3EngPO +FFOriKF9kDN2 mJ4cOmUjCgZ1UBbhV859K gKzrQLxFsnwf2buo6cbiB b6TxZ5EQKjdbLbdTbfFJL 8v0ZhEs19B77j IHdpZHRoPSIxNSUiIHZhb Sljug2srE3rBv1+PGNvbC J2jOG5tO6pPzEjSyS8IZv uD490RcBqgGKd Jlzws0hsm9fifNr6YoOoH SUfmrLykZcuMBX1a8YbIo 02K7VdeKieo5MiBfj9ff5 0oFXbb9Q2uDX2 K1OsVUMkmfgxiBQhgVxvW Z3uWPHrjxkjFURsyC7kYC SwC4m7TsHoGiB3YJqeF7S mcvP8DHTfdLAn GDYyfTFSeM1jurctf1iin axuIyZcWQFqCRh2HYo2DB RlyIakMeAiTCZ6LtW0SWW 6tNSphE1naTqb ltazzG4aHye+SYD5nDMsw PZCCE2zHwivyKL+PHRkIH A1oNlsUBbuFTPnbN4jVTQ nY8c2FcQtWvH8 WDvrW1MkudW9MJEtmXVcZ EJajDPGaF9rdckay4bubi nxSjIgIMLlIUi9RAf9OAJ saWduOiBsZWZ0 OtL5QBM6sZExkQ9heSdqb cyzmT8wEqu+QmlydGggRG R5JSh9K1BkUph3WYHxwKj xCY2waZEeLLhm Fn7czMahtWrhJY1vWTOfo qwrq369CrXhb2wpURZvcS UzJBdoSXO6H44ug2S5GWX tTJIoZZT8iMR1 bD9moXoesjxqsYQigKeyy qYtcMgqHBomFLyzS870TE WpvJkcQxXsPAn7I8DhPdr 0BBOmuYnlEX0j rHSqQKtxMo5faMkldYyfL U3bWMVlprxja702ZvVfi2 cnDAWooYAfYIprQXA7L02 ab6W5YKXxIZFc DII6rOC2sC9nuTjslruos GVmdDsgdmVydGljYWwtYW msE075CJWqdIxlJoXbhTc 8N7EyXap2XFUe cXneHA2zuDJtOUytDw7rh BtvxPfzQM1xVEScycrtb1 07UoEix2zdIBWnpZQqZLx bMZU5Z73hy0I8 PEJgVPFkTXP8fVA9lL3ca GlnbjogbGVmdDsgdmVydG qpRLzpLJfrK456NITdgYo nPlBhdGllbnQg KAnwMDe5W8VkUdvapAM+P S74HJRtQT87rIArdPEnc0 axkDz7CkXiPDKlNCZ7rHu jWYode2RfWINf J50osZCrj2K9KJGfuFdmu JJuLiBbfBN6rD8eXIoijr giw7tkvdscCxexc7sjib4 0yX18H16aYOsw ZHRoPSIzMCUiIHZhbGlnb x7ldL8iNu2+NGIrmPE7tM P1eC9gFCToUcF5RSntP66 9InRvcCIvPjxj w0viw0tmsRr5UqO9AUTpc gBqeEewXII6w5PwVo16I5 9sIHdpZHRoPSIyMCUiIHZ cyFacot7qiG9i Ii8+IYYhlIM8rSR7bX5oV qNiJdN3GVuoV094YnNcfC ZqDpwzO72lS3PisJK+PHR vUys3CYMvxJua SD0beLHcFGhzEg9zAHU1N aAvByGlJCutD4GjHTAkbu vmjstknGB2QJVbFSYziI9 7Xb8bbYkwPYVu nHWBtP8qskojg8lhtsgmF zLqMROqEUc2NDm4SUOkbE ddSwHwZTI1XjW8ASG5gUW eaE6arNoubufo gO5aK3KqKGAryvewNm27g C3wAfCqWlM4BVmiIyb+TU kFUIISPQGOUJSZOL2NTYc ST29IUA46KQ75 eJKka5E5xPB2G8XyEYZpi hwxplxfnWI7YUKeHHDhjA 91vJGwYHepWs8uq0L8z83 2NZMeHJVmpY01 Ok6jnGbjZRKudMRZfB5we clma4bqakvxUdAgZRAiZW d1VJd2FVCyqIssDmBoUUF 6UaZ9RYT0xUOn yX8tuOvthxfziC1mXtp+M DMvMDQvMTkzNTwvdGQ+PH FtJXA9hAyiGQpkRNFsxF0 cOWEtP2y2HvAr SxV2YYwdB3PcXTMgmmkeU x88yS1sEtBcLcG5NWggZ5 BwlaT9NCTscYYdPTguMRC 8R44dd1B3ARYq ZZWtCNC3qPA5qP7hqQxgo jogbGVmdDsgdmVydGljYW iySIqgC160GGVpsCkdRgs 5DLdxVBYzWT93 BX73gUOqc5Z9mZA2Y9KeL HNsdtdytcevvMM1YURbYQ SivD04bJKuXAibTk3qi5B 3b716GUWjLPHl uN14Xl3uqVcfIDDyoELBe O1evwuap4znqbjpBrHvMB SqFJe7QPr4VHWztMfwKdX dJOD5MsZ6CDB4 tDCmwI8eaDsemvfknX6iJ yc+TUFMRTwvdGQ+PHRkIH M2nDghBWknRGVvhA2pCZK rD3r9QiOqXzC9 KAyyI9VmIVZtgszpEf53y S6kHaSkBsK7EHfwJ4Wpie E4ERZnxZZsPSudFCW0N78 rm8H7PVBmSHEs LMM3wOD7wM0mcYjxnhwtu GVmdDsgdmVydGljYWwtYW rrF754QZZoeSjoReMlqKR QgXGrDQR8XK52 WM52W0AvEddhtOXqcLA+P HRhYmxlIHdpZHRoPScxMD XfNuTvhHqkFG4wLl1sWQV yLWNvbGxhcHNl PtNnj7quKEUeGVncOM0rw KwcT0BlbBH0ZHFqb7x5Wu 51I68hP4NexDF+PGNvbCB 5dIA3tL9bQgZq XoX2QEjnM844CeExtOEmQ ppca1egx4xelMt8UdXsFQ KhkzEdsCeqUAH1t7RjNi3 6C08lEFtyQDPu RQGeSTXlTWLpzYqxxe7bf G9wIi8+OQYmzTG6vCH6bT 4zQrMsFbF4MNbjL235SrY rsSEgQxkvD47m N8HplDI+AVGgQgq4XEJsr UppTE8fyBKdVUolBe3rWY F9KpJaYxMeZUpuB5WsXES pbmctcmlnaHQ6 CVJmZBHvsL93Ig4avMjqS j9cGAGkXRA6QNLocNJuQ6 NqjX3fTmEcPOVeUCXcQ3E gsFHoXUcoH528 SYqkXsI0GZGlyoScT9YwL JLypVbiPvK9u5A9Oa9CzL xymSIqIX9pMmHcTQj9S3U qGla0ZWRruVyr EM6moHAwJLqrVk5dcKvlj XtuEO4cVTCtvaplx984Fc Zvs2ycAZEfaSEnMIehCSX 5K50xc4H6VFBw LQTgZUH6nHH5dK3jnXkia jogbGVmdDsgdmVydGljYW wqQQtgM237BLJcwItdJgT RBnm7U3IiJnw6 PFRnxFapOC1efUFjYVxxX j5hrWrxuMqvCE6eJOFwum bee465RhXhz5saSGGriRP zLCpyGOV6A58v g5M1AYZtONZrJFQ7tEU9j M0xrLzoagdxfBGbpWtisv YgaRdrTZsvUXmiL929VMS dlIsjWj9ANfr5 N1FuNsu3BJBsjFlxSX9pv KZkHZjrKe2geCslkLmtKO 4vFRUclxjtz461HmHeh6l kIDEwcHQgVGlt BIG1W97pg8N1WJSpWAErA FT3jGP9dW6aaTfwiqgcnY VmdDsgdmVydGljYWwtYWx bW990RDGbzNza PlBheWVyOjwvdGQ+PC90c a42Y5GqVbosYeq9EJOdQN E5ySO8cW8wECQkCSjfw7W 7kOO5Z7DxycPx ci1 (more content not included)... [facility] [place] [place] 12-18-[address] [facility] [place] Case Information Case Priority: None Programs: -- Referral Source: Physician Obstetrician Referral Reason: Care coordination Case Type: Transition [...] any questions or concerns. Patient currently at [facility], unable to provide patient with contact number, but did advise patient to call office and ask to speak with grounds caretaker if he had any questions or concerns. Communication Events Date: December 17, 2022 Method: Phone call Type: Outbound Duration (min): 5 Outcome: Case discussion Contact Type: Patient Contact Name: RY LERNER Notes: TCM #1-see summary note. Created By: Ezequiel PERSAUD, Sandra Calix [facility] CBC AUTO DIFFon 12-14-2022 BASO # 0.0 103/ul Normal 0.0-0.1 [facility] Comment on above: Performed By: #### C BC #### [facility] [address] [place] [address] Dr. Rashmi Nolan Basophils/100 WBC (Bld) 0.6 % Normal 0.2-2.0 [facility] Comment on above: Performed By: #### C BC #### [facility] [address] [address] [address] Rashmi Nolan EO # 0.4 103/ul Normal 0.0-0.7 [facility] Comment on above: Performed By: #### C BC #### [facility] [address] [place] [address] Dr. Rashmi Nolan Eosinophils/100 WBC (Bld) 11.9 % Critically high 0.9-7.0 [facility] Comment on above: Performed By: #### C BC #### [facility] [address] [place] [address] Dr. Rashmi Nolan Erythrocyte distribution width (RBC) [Ratio] 15.2 % Critically high 11.0-15.0 [facility] Comment on above: Performed By: #### C BC #### [facility] [address] [place] [address] Dr. Rashmi Nolan Hematocrit (Bld) [Volume fraction] 26.3 % Critically low 42.0-54.0 [facility] Comment on above: Performed By: #### C BC #### [facility] [address] [place] [address] Dr. Rashmi Nolan Hemoglobin (Bld) [Mass/Vol] 8.9 g/dL Critically low 14.0-18.0 [facility] Comment on above: Performed By: #### C BC #### [facility] [address] [place] [address] Dr. Rashmi Nolan IG # 0.01 10e3/ul Normal 0.00-0.03 [facility] Comment on above: Performed By: #### C BC #### [facility] [address] [place] [address] Dr. Rashmi Nolan IG % 0.3 % Normal 0.0-0.5 [facility] Comment on above: Performed By: #### C BC #### [facility] [address] [place] [address] Dr. Rashmi Nolan LYMPH # 0.8 103/ul Critically low 1.2-3.8 [facility] Comment on above: Performed By: #### C BC #### [facility] [address] [place] [address] Dr. Rashmi Nolan Lymphocytes/100 WBC (Bld) 25.1 % Normal 20.5-60.0 [facility] Comment on above: Performed By: #### C BC #### [facility] [address] [place] [address] Dr. Rashmi Nolan MANUAL DIFF REQ NO Normal [facility] Comment on above: Performed By: #### C BC #### [facility] [address] [place] [address] Dr. Rashmi Nolan MCH (RBC) [Entitic mass] 33.0 pg Normal 25.9-34.0 [facility] Comment on above: Performed By: #### C BC #### [facility] [address] [place] [address] Dr. Rashmi Nolan MCHC (RBC) [Mass/Vol] 33.8 g/dL Normal 29.9-35.2 [facility] Comment on above: Performed By: #### C BC #### [facility] [address] [place] [address] Dr. Rashmi Nolan MCV (RBC) [Entitic vol] 97.4 fL Critically high 80.0-94.0 [facility] Comment on above: Performed By: #### C BC #### [facility] [address] [place] [address] Dr. Rashmi Nolan MONO # 0.3 103/ul Normal 0.3-0.8 [facility] Comment on above: Performed By: #### C BC #### [facility] [address] [place] [address] Dr. Rashmi Nolan Monocytes/100 WBC (Bld) 9.0 % Normal 1.7-12.0 [facility] Comment on above: Performed By: #### C BC #### [facility] [address] [place] [address] Dr. Rashmi Nolan NEUT # 1.7 103/ul Normal 1.4-6.5 [facility] Comment on above: Performed By: #### C BC #### [facility] [address] [place] [address] Dr. Rashmi Nolan Neutrophils/100 WBC (Bld) 53.1 % Normal 43.0-75.0 [facility] Comment on above: Performed By: #### C BC #### [facility] [address] [place] [address] Dr. Rashmi Nolan Platelet mean volume (Bld) [Entitic vol] 10.2 fL Normal 9.5-13.5 [facility] Comment on above: Performed By: #### C BC #### [facility] [address] [place] [address] Dr. Rashmi Nolan PLT 139 103/ul Critically low 150-450 [facility] Comment on above: Performed By: #### C BC #### [facility] [address] [place] [address] Dr. Rashmi Nolan RBC 2.70 106/ul Critically low 4.70-6.10 [facility] Comment on above: Performed By: #### C BC #### [facility] [address] [place] [address] Dr. Rashmi Nolan WBC 3.1 103/ul Critically low 4.0-11.0 [facility] Comment on above: Performed By: #### C BC #### [facility] [address] [place] [address] Dr. Rashmi Nolan MAGR Intraoperative Recordon 12-14-2022 MAGR Intraoperative Record MAGR Intra-Op Record Summary Primary Physician: Ward Martinez DO Finalized Date/Time: 12/14/22 09:30:19 Pt. Name: RY LERNER/Sex: 1935 MALE Med Rec #: [id number] Physician: Ward Martinez DO Financial #: [id number] Pt. Type: D Room/Bed: / Admit/Disch: 12/10/22 [...] Andrew DO Role Performed Surgeon - Primary Hospital Account Manager Hospital Account Manager Time In 12/10/22 15:05:00 12/10/22 14:54:00 12/10/22 14:54:00 Time Out 12/10/22 15:30:00 12/10/22 15:30:00 12/10/22 15:30:00 Procedure Carpal Tunnel Carpal Tunnel Carpal Tunnel Release(Left) Release(Left) Release(Left) Last Modified By: Maile Palmer RN, Barbara RN Long, Barbara RN 12/10/22 15:29:30 12/10/22 15:29:30 12/10/22 15:29:30 Entry 4 Entry 5 Case Attendee Macie Licea CST, CST, Brandi Role Performed [employer] Manager Scrub Personnel Time In 12/10/22 14:54:00 [...] Procedure Yes Primary Surgeon Ward Martinez Modifiers Tata Riki DO Surgeon Comment LEFT CARPAL TUNNEL [...] By Maile Palmer RN Scrub 10% Povidone-Iodine [place] Prep Area (Im.270) Arm lower Prep Area [...] injury Counts (more content not included)... Normal [facility] Outside Colonoscopyon 2022 Outside Colonoscopy [id number]#1 .00CD:127 Normal [facility] Outside Hospital Correspo ndenceon 12-14-2022 Outside [facility] Correspondence [id number] .00CD:127 Normal [facility] Outside Hospital Correspondence [id number] .00CD:127 [facility] Outside Hospital Correspondence [id number]#1 .00CD:127 [facility] Hospital Correspondence [id number]#1 .00CD:127 [facility] Hospital Correspondence [id number]#1 .00CD:127 [facility] PROF CHEM 8 (BAS METB)on Anion gap [Moles/Vol] 12.6 mmol/L Normal [facility] Comment on above: Performed By: #### B #### [facility] [address] [place] [address] Dr. Rashmi Nolan Calcium [Mass/Vol] 9.7 mg/dL Normal 8.5-10.1 [facility] Comment on above: Performed By: #### B MP #### [facility] [address] [address] [address] Rashmi Nolan Chloride [Moles/Vol] 108 mmol/L Critically high 98-107 [facility] Comment on above: Performed By: #### B MP #### [facility] [address] [address] [address] Rashmi Nolan CO2 [Moles/Vol] 24.5 mmol/L Normal 21.0-32.0 [facility] Comment on above: Performed By: #### B MP #### [facility] [address] [address] [address] Rashmi Nolan Creatinine [Mass/Vol] 1.68 mg/dL Critically high 0.70-1.30 [facility] Comment on above: Performed By: #### B MP #### [facility] [address] [address] [address] Rashmi Nolan EGFR-AF URUGUAYAN 47 mL/min/1.73m2 Critically low >=60 [facility] Comment on above: Performed By: #### B MP #### [facility] [address] [address] [address] Rashmi Nolan EGFR-NON AF URUGUAYAN 39 mL/min/1.73m2 Critically low >=60 [facility] Comment on above: Performed By: #### B MP #### [facility] [address] [address] [address] Rashmi Nolan Glucose [Mass/Vol] 91 mg/dL Normal 74-106 [facility] Comment on above: Performed By: #### B MP #### [facility] [address] [address] [address] Rashmi Nolan Potassium [Moles/Vol] 5.1 mmol/L Normal 3.5-5.1 [facility] Comment on above: Performed By: #### B MP #### [facility] [address] [address] [address] Rashmi Nolan Sodium [Moles/Vol] 140 mmol/L Normal 136-145 [facility] Comment on above: Performed By: #### B MP #### [facility] [address] [place] [address] Dr. Rashmi Nolan Urea nitrogen [Mass/Vol] 27.0 mg/dL Critically high 7.0-18.0 [facility] Comment on above: Performed By: #### B MP #### [facility] [address] [place] [address] Dr. Rashmi Nolan Urea nitrogen/Creatinine [Mass ratio] 16.1 mg/mg Normal [facility] Comment on above: Performed By: #### B MP #### [facility] [address] [place] [address] Dr. Rashmi Nolan Transfer Inon 12-14-2022 Transfer In [id number]#1 .00CD:127 Normal [facility] CBC AUTO DIFFon 12-13-2022 BASO # 0.0 103/ul Normal 0.0-0.1 [facility] Comment on above: Performed By: #### C BC #### [facility] [address] [place] [address] Dr. Rashmi Nolan Basophils/100 WBC (Bld) 0.6 % Normal 0.2-2.0 [facility] Comment on above: Performed By: #### C BC #### [facility] [address] [place] [address] Dr. Rashmi Nolan EO # 0.4 103/ul Normal 0.0-0.7 [facility] Comment on above: Performed By: #### C BC #### [facility] [address] [place] [address] Dr. Rashmi Nolan Eosinophils/100 WBC (Bld) 10.3 % Critically high 0.9-7.0 [facility] Comment on above: Performed By: #### C BC #### [facility] [address] [place] [address] Dr. Rashmi Nolan Erythrocyte distribution width (RBC) [Ratio] 15.8 % Critically high 11.0-15.0 [facility] Comment on above: Performed By: #### C BC #### [facility] [address] [place] [address] Dr. Rashmi Nolan Hematocrit (Bld) [Volume fraction] 25.7 % Critically low 42.0-54.0 [facility] Comment on above: Performed By: #### C BC #### [facility] [address] [place] [address] Dr. Rashmi Nolan Hemoglobin (Bld) [Mass/Vol] 8.5 g/dL Critically low 14.0-18.0 [facility] Comment on above: Performed By: #### C BC #### [facility] [address] [place] [address] Dr. Rashmi Nolan IG # 0.00 10e3/ul Normal 0.00-0.03 [facility] Comment on above: Performed By: #### C BC #### [facility] [address] [place] [address] Dr. Rashmi Nolan IG % 0.0 % Normal 0.0-0.5 [facility] Comment on above: Performed By: #### C BC #### [facility] [address] [place] [address] Dr. Rashmi Nolan LYMPH # 0.8 103/ul Critically low 1.2-3.8 [facility] Comment on above: Performed By: #### C BC #### [facility] [address] [place] [address] Dr. Rashmi Nolan Lymphocytes/100 WBC (Bld) 23.5 % Normal 20.5-60.0 [facility] Comment on above: Performed By: #### C BC #### [facility] [address] [place] [address] Dr. Rashmi Nolan MANUAL DIFF REQ NO Normal [facility] Comment on above: Performed By: #### C BC #### [facility] [address] [place] [address] Dr. Rashmi Noaln MCH (RBC) [Entitic mass] 32.9 pg Normal 25.9-34.0 [facility] Comment on above: Performed By: #### C BC #### [facility] [address] [address] [address] Rashmi Nolan MCHC (RBC) [Mass/Vol] 33.1 g/dL Normal 29.9-35.2 [facility] Comment on above: Performed By: #### C BC #### [facility] [address] [address] [address] Rashmi Nolan MCV (RBC) [Entitic vol] 99.6 fL Critically high 80.0-94.0 [facility] Comment on above: Performed By: #### C BC #### [facility] [address] [place] [address] Dr. Rashmi Nolan MONO # 0.3 103/ul Normal 0.3-0.8 [facility] Comment on above: Performed By: #### C BC #### [facility] [address] [place] [address] Dr. Rashmi Nolan Monocytes/100 WBC (Bld) 8.9 % Normal 1.7-12.0 [facility] Comment on above: Performed By: #### C BC #### [facility] [address] [place] [address] Dr. Rashmi Nolan NEUT # 2.0 103/ul Normal 1.4-6.5 [facility] Comment on above: Performed By: #### C BC #### [facility] [address] [place] [address] Dr. Rashmi Nolan Neutrophils/100 WBC (Bld) 56.7 % Normal 43.0-75.0 [facility] Comment on above: Performed By: #### C BC #### [facility] [address] [place] [address] Dr. Rashmi Nolan Platelet mean volume (Bld) [Entitic vol] 10.5 fL Normal 9.5-13.5 [facility] Comment on above: Performed By: #### C BC #### [facility] [address] [place] [address] Dr. Rashmi Nolan PLT 134 103/ul Critically low 150-450 [facility] Comment on above: Performed By: #### C BC #### [facility] [address] [address] [address] Rashmi Nolan RBC 2.58 106/ul Critically low 4.70-6.10 [facility] Comment on above: Performed By: #### C BC #### [facility] [address] [address] [address] Rashmi Nolan WBC 3.6 103/ul Critically low 4.0-11.0 [facility] Comment on above: Performed By: #### C BC #### [facility] [address] [address] [address] Rashmi Nolan PROF CHEM 8 (BAS METB)on Anion gap [Moles/Vol] 11.7 mmol/L Normal [facility] Comment on above: Performed By: #### C BC #### [facility] [address] [place] [address] Dr. Rashmi Nolan Calcium [Mass/Vol] 9.5 mg/dL Normal 8.5-10.1 [facility] Comment on above: Performed By: #### C BC #### [facility] [address] [address] [address] Rashmi Nolan Chloride [Moles/Vol] 110 mmol/L Critically high 98-107 [facility] Comment on above: Performed By: #### C BC #### [facility] [address] [address] [address] Rashmi Nolan CO2 [Moles/Vol] 25.1 mmol/L Normal 21.0-32.0 [facility] Comment on above: Performed By: #### C BC #### [facility] [address] [address] [address] Rashmi Nolan Creatinine [Mass/Vol] 1.69 mg/dL Critically high 0.70-1.30 [facility] Comment on above: Performed By: #### C BC #### [facility] [address] [address] [address] Rashmi Nolan EGFR-AF URUGUAYAN 47 mL/min/1.73m2 Critically low >=60 [facility] Comment on above: Performed By: #### C BC #### [facility] [address] [address] [address] Rashmi Nolan EGFR-NON AF URUGUAYAN 38 mL/min/1.73m2 Critically low >=60 [facility] Comment on above: Performed By: #### C BC #### [facility] [address] [address] [address] Rashmi Nolan Glucose [Mass/Vol] 93 mg/dL Normal 74-106 [facility] Comment on above: Performed By: #### C BC #### [facility] [address] [address] [address] Rashmi Nolan Potassium [Moles/Vol] 5.8 mmol/L Critically high 3.5-5.1 [facility] Comment on above: Performed By: #### C BC #### [facility] [address] [address] [address] Rashmi Nolan Sodium [Moles/Vol] 141 mmol/L Normal 136-145 [facility] Comment on above: Performed By: #### C BC #### [facility] [address] [address] [address] Rashmi Nolan Urea nitrogen [Mass/Vol] 35.0 mg/dL Critically high 7.0-18.0 [facility] Comment on above: Performed By: #### C BC #### [facility] [address] [address] [address] Rashmi Nolan Urea nitrogen/Creatinine [Mass ratio] 20.7 mg/mg Normal [facility] Comment on above: Performed By: #### C BC #### [facility] [address] [address] [address] Rashmi Nolan ABO RH RETYPEon 12-12-2022 ABO and Rh group Nom (Bld) DONE Normal [facility] Comment on above: Performed By: #### C BC #### [facility] [address] [address] [address] Rashmi Nolan Auth for Release of Medical Recordson 12-12-2022 Auth for Release of Medical Records [id number] Normal [facility] CBC AUTO DIFFon 12-12-2022 BASO # 0.0 103/ul Normal 0.0-0.1 [facility] Comment on above: Performed By: #### C BC #### [facility] [address] [address] [address] Rashmi Nolan Basophils/100 WBC (Bld) 0.6 % Normal 0.2-2.0 [facility] Comment on above: Performed By: #### C BC #### [facility] [address] [address] [address] Rashmi Nolan EO # 0.3 103/ul Normal 0.0-0.7 [facility] Comment on above: Performed By: #### C BC #### [facility] [address] [place] [address] Dr. Rashmi Nolan Eosinophils/100 WBC (Bld) 7.6 % Critically high 0.9-7.0 [facility] Comment on above: Performed By: #### C BC #### [facility] [address] [place] [address] Dr. Rashmi Nolan Erythrocyte distribution width (RBC) [Ratio] 16.4 % Critically high 11.0-15.0 [facility] Comment on above: Performed By: #### C BC #### [facility] [address] [place] [address] Dr. Rashmi Nolan Hematocrit (Bld) [Volume fraction] 27.2 % Critically low 42.0-54.0 [facility] Comment on above: Performed By: #### C BC #### [facility] [address] [place] [address] Dr. Rashmi Nolan Hemoglobin (Bld) [Mass/Vol] 9.1 g/dL Critically low 14.0-18.0 [facility] Comment on above: Performed By: #### C BC #### [facility] [address] [place] [address] Dr. Rashmi Nolan IG # 0.01 10e3/ul Normal 0.00-0.03 [facility] Comment on above: Performed By: #### C BC #### [facility] [address] [place] [address] Dr. Rashmi Nolan IG % 0.3 % Normal 0.0-0.5 [facility] Comment on above: Performed By: #### C BC #### [facility] [address] [place] [address] Dr. Rashmi Nolan LYMPH # 0.9 103/ul Critically low 1.2-3.8 [facility] Comment on above: Performed By: #### C BC #### [facility] [address] [place] [address] Dr. Rashmi Nolan Lymphocytes/100 WBC (Bld) 25.3 % Normal 20.5-60.0 [facility] Comment on above: Performed By: #### C BC #### [facility] [address] [place] [address] Dr. Rashmi Nolan MANUAL DIFF REQ NO Normal [facility] Comment on above: Performed By: #### C BC #### [facility] [address] [place] [address] Dr. Rashmi Nolan MCH (RBC) [Entitic mass] 33.0 pg Normal 25.9-34.0 [facility] Comment on above: Performed By: #### C BC #### [facility] [address] [place] [address] Dr. Rashmi Nolan MCHC (RBC) [Mass/Vol] 33.5 g/dL Normal 29.9-35.2 [facility] Comment on above: Performed By: #### C BC #### [facility] [address] [place] [address] Dr. Rashmi Nolan MCV (RBC) [Entitic vol] 98.6 fL Critically high 80.0-94.0 [facility] Comment on above: Performed By: #### C BC #### [facility] [address] [place] [address] Dr. Rashmi Nolan MONO # 0.3 103/ul Normal 0.3-0.8 [facility] Comment on above: Performed By: #### C BC #### [facility] [id number] Rashmi Nolan Monocytes/100 WBC (Bld) 8.1 % Normal 1.7-12.0 [facility] Comment on above: Performed By: #### C BC #### [facility] [address] [address] [address] Rashmi Nolan NEUT # 2.0 103/ul Normal 1.4-6.5 [facility] Comment on above: Performed By: #### C BC #### [facility] [address] [address] [address] Rashmi Nolan Neutrophils/100 WBC (Bld) 58.1 % Normal 43.0-75.0 [facility] Comment on above: Performed By: #### C BC #### [facility] [address] [place] [address] Dr. Rashmi Nolan Platelet mean volume (Bld) [Entitic vol] 10.0 fL Normal 9.5-13.5 [facility] Comment on above: Performed By: #### C BC #### [facility] [address] [place] [address] Dr. Rashmi Nolan PLT 147 103/ul Critically low 150-450 [facility] Comment on above: Performed By: #### C BC #### [facility] [address] [place] [address] Dr. Rashmi Nolan RBC 2.76 106/ul Critically low 4.70-6.10 [facility] Comment on above: Performed By: #### C BC #### [facility] [address] [place] [address] Dr. Rashmi Nolan WBC 3.4 103/ul Critically low 4.0-11.0 [facility] Comment on above: Performed By: #### C BC #### [facility] [address] [place] [address] Dr. Rashmi Nolan BASO # 0.0 103/ul Normal 0.0-0.1 [facility] Comment on above: Performed By: #### C BC #### [facility] [address] [place] [address] Dr. Rashmi Nolan Basophils/100 WBC (Bld) 0.6 % Normal 0.2-2.0 [facility] Comment on above: Performed By: #### C BC #### [facility] [address] [place] [address] Dr. Rashmi Noaln EO # 0.2 103/ul Normal 0.0-0.7 [facility] Comment on above: Performed By: #### C BC #### [facility] [address] [place] [address] Dr. Rashmi Nolan Eosinophils/100 WBC (Bld) 6.6 % Normal 0.9-7.0 [facility] Comment on above: Performed By: #### C BC #### [facility] [address] [place] [address] Dr. Rashmi Nolan Erythrocyte distribution width (RBC) [Ratio] 16.4 % Critically high 11.0-15.0 [facility] Comment on above: Performed By: #### C BC #### [facility] [address] [place] [address] Dr. Rashmi Nolan Hematocrit (Bld) [Volume fraction] 26.1 % Critically low 42.0-54.0 [facility] Comment on above: Performed By: #### C BC #### [facility] [address] [place] [address] Dr. Rashmi Nolan Hemoglobin (Bld) [Mass/Vol] 8.5 g/dL Critically low 14.0-18.0 [facility] Comment on above: Result Comment: rcvd . blood Performed By: #### C BC #### [facility] [address] [place] [address] Dr. Rashmi Nolan IG # 0.01 10e3/ul Normal 0.00-0.03 [facility] Comment on above: Performed By: #### C BC #### [facility] [address] [place] [address] Dr. Rashmi Nolan IG % 0.3 % Normal 0.0-0.5 [facility] Comment on above: Performed By: #### C BC #### [facility] [address] [address] [address] Rashmi Nolan LYMPH # 0.7 103/ul Critically low 1.2-3.8 [facility] Comment on above: Performed By: #### C BC #### [facility] [address] [place] [address] Dr. Rashmi Nolan Lymphocytes/100 WBC (Bld) 20.2 % Critically low 20.5-60.0 [facility] Comment on above: Performed By: #### C BC #### [facility] [address] [place] [address] Dr. Rashmi Nolan MANUAL DIFF REQ NO Normal [facility] Comment on above: Performed By: #### C BC #### [facility] [address] [place] [address] Dr. Rashmi Nolan MCH (RBC) [Entitic mass] 32.7 pg Normal 25.9-34.0 [facility] Comment on above: Performed By: #### C BC #### [facility] [address] [place] [address] Dr. Rashmi Nolan MCHC (RBC) [Mass/Vol] 32.6 g/dL Normal 29.9-35.2 [facility] Comment on above: Performed By: #### C BC #### [facility] [address] [place] [address] Dr. Rashmi Nolan MCV (RBC) [Entitic vol] 100.4 fL Critically high 80.0-94.0 [facility] Comment on above: Performed By: #### C BC #### [facility] [address] [place] [address] Dr. Rashmi Nolan MONO # 0.3 103/ul Normal 0.3-0.8 [facility] Comment on above: Performed By: #### C BC #### [facility] [address] [place] [address] Dr. Rashmi Nolan Monocytes/100 WBC (Bld) 7.7 % Normal 1.7-12.0 [facility] Comment on above: Performed By: #### C BC #### [facility] [address] [place] [address] Dr. Rashmi Nolan NEUT # 2.3 103/ul Normal 1.4-6.5 [facility] Comment on above: Performed By: #### C BC #### [facility] [address] [place] [address] Dr. Rashmi Nolan Neutrophils/100 WBC (Bld) 64.6 % Normal 43.0-75.0 [facility] Comment on above: Performed By: #### C BC #### [facility] [address] [place] [address] Dr. Rashmi Nolan Platelet mean volume (Bld) [Entitic vol] 9.9 fL Normal 9.5-13.5 [facility] Comment on above: Performed By: #### C BC #### [facility] [address] [place] [address] Dr. Rashmi Nolan PLT 130 103/ul Critically low 150-450 [facility] Comment on above: Performed By: #### C BC #### [facility] [address] [place] [address] Dr. Rashmi Nolan RBC 2.60 106/ul Critically low 4.70-6.10 [facility] Comment on above: Performed By: #### C BC #### [facility] [address] [place] [address] Dr. Rashmi Nolan WBC 3.6 103/ul Critically low 4.0-11.0 [facility] Comment on above: Performed By: #### C BC #### [facility] [address] [place] [address] Dr. Rashmi Nolan PRBC LEUKOREDUCEDon 12-13-19 23 ABO and Rh group Nom (Bld) Cross Match Result Compatible Unit Blood Type O Pos Unit Number [id number] Status Information Issued Product ID Red Blood Cells Product Code [id number] Issue Date/Time [id number] Cross Match Result Compatible Unit Blood Type O Pos Unit Number [id number] Status Information Issued Product ID Red Blood Cells Product Code [id number] Issue Date/Time [id number] Normal [facility] Comment on above: Performed By: #### C BC #### [facility] [address] [address] [address] Rashmi Nolan PROF CHEM 8 (BAS METB)on Anion gap [Moles/Vol] 14.8 mmol/L Normal [facility] Comment on above: Performed By: #### B MP #### [facility] [address] [address] [address] Rashmi Nolan Calcium [Mass/Vol] 9.2 mg/dL Normal 8.5-10.1 [facility] Comment on above: Performed By: #### B MP #### [facility] [address] [address] [address] Rashmi Nolan Chloride [Moles/Vol] 110 mmol/L Critically high 98-107 [facility] Comment on above: Performed By: #### B MP #### [facility] [address] [place] [address] Dr. Rashmi Nolan CO2 [Moles/Vol] 23.5 mmol/L Normal 21.0-32.0 [facility] Comment on above: Performed By: #### B MP #### [facility] [address] [address] [address] Rashmi Nolan Creatinine [Mass/Vol] 1.77 mg/dL Critically high 0.70-1.30 [facility] Comment on above: Performed By: #### B MP #### [facility] [address] [address] [address] Rashmi Nolan EGFR-AF URUGUAYAN 44 mL/min/1.73m2 Critically low >=60 [facility] Comment on above: Performed By: #### B MP #### [facility] [address] [address] [address] Rashmi Nolan EGFR-NON AF URUGUAYAN 36 mL/min/1.73m2 Critically low >=60 [facility] Comment on above: Performed By: #### B MP #### [facility] [address] [address] [address] Rashmi Nolan Glucose [Mass/Vol] 103 mg/dL Normal 74-106 [facility] Comment on above: Performed By: #### B MP #### [facility] [address] [place], [place] [address] Dr. Rashmi Nolan Potassium [Moles/Vol] 5.3 mmol/L Critically high 3.5-5.1 [facility] Comment on above: Performed By: #### B MP #### [facility] [address] [place], [place] [address] Dr. Rashmi Nolan Sodium [Moles/Vol] 143 mmol/L Normal 136-145 [facility] Comment on above: Performed By: #### B MP #### [facility] [address] [place], [place] [address] Dr. Rashmi Nolan Urea nitrogen [Mass/Vol] 54.0 mg/dL Critically high 7.0-18.0 [facility] Comment on above: Performed By: #### B MP #### [facility] [address] [place], [place] [address] Dr. Rashmi Nolan Urea nitrogen/Creatinine [Mass ratio] 30.5 mg/mg Normal [facility] Comment on above: Performed By: #### B MP #### [facility] [address] [place], [place] [address] Dr. Rashmi Nolan Auto Diffon 12-11-2022 Basophils/100 WBC (Bld) 0.5 % Normal 0.0-2.0 [facility] Comment on above: Order Comment: Order Added by Discern Expert. Performed By: #### 1 [id number], [id number] ####[facility] [address] [place] [address] Basophils/Leukocytes Auto (Bld) [Pure # fraction] 0.0 E9/L Normal 0.0-0.2 [facility] Comment on above: Order Comment: Order Added by Discern Expert. Performed By: #### 1 [id number], [id number], [id number] ####[facility] [address] [place] [address] Eosinophils/100 WBC (Bld) 3.4 % Normal 0.0-8.0 [facility] Comment on above: Order Comment: Order Added by Discern Expert. Performed By: #### 1 [id number], [id number], [id number] ####[address] [address] Eosinophils/Leukocyte s Auto (Bld) [Pure # fraction] 0.2 E9/L Normal 0.0-0.5 [facility] Comment on above: Order Comment: Order Added by Discern Expert. Performed By: #### 1 [id number], [id number], [id number] ####[address] [address] Lymphocytes/100 WBC (Bld) 17.1 % Normal 14.0-50.0 [facility] Comment on above: Order Comment: Order Added by Discern Expert. Performed By: #### 1 [id number], [id number], [id number] ####[address] [address] Lymphocytes/Leukocyte s Auto (Bld) [Pure # fraction] 0.9 E9/L Low 1.0-4.0 [facility] Comment on above: Order Comment: Order Added by Discern Expert. Performed By: #### 1 [id number], [id number], [id number] ####[address] [address] Monocytes/100 WBC (Bld) 6.1 % Normal 4.0-14.0 [facility] Comment on above: Order Comment: Order Added by Discern Expert. Performed By: #### 1 [id number], [id number], [id number] ####[address] [address] Monocytes/Leukocytes Auto (Bld) [Pure # fraction] 0.3 E9/L Normal 0.2-1.0 [facility] Comment on above: Order Comment: Order Added by Discern Expert. Performed By: #### 1 [id number], [id number], [id number] ####[address] [address] Neutrophils/100 WBC (Bld) 72.9 % Normal 36.0-75.0 [facility] Comment on above: Order Comment: Order Added by Discern Expert. Performed By: #### 1 [id number], [id number], [id number] ####[facility] [address] [place] [address] Neutrophils/Leukocyte s Auto (Bld) [Pure # fraction] 3.8 E9/L Normal 2.0-7.5 [facility] Comment on above: Order Comment: Order Added by Discern Expert. Performed By: #### 1 [id number], [id number], [id number] ####[facility] [address] [place] [address] CBC AUTO DIFFon 12-11-2022 BASO # 0.0 103/ul Normal 0.0-0.1 [facility] Comment on above: Performed By: #### C BC #### [facility] [address] [place] [address] Dr. Rashmi Nolan Basophils/100 WBC (Bld) 0.4 % Normal 0.2-2.0 [facility] Comment on above: Performed By: #### C BC #### [facility] [address] [place] [address] Dr. Rashmi Nolan EO # 0.2 103/ul Normal 0.0-0.7 [facility] Comment on above: Performed By: #### C BC #### [facility] [address] [place] [address] Dr. Rashmi Nolan Eosinophils/100 WBC (Bld) 5.2 % Normal 0.9-7.0 [facility] Comment on above: Performed By: #### C BC #### [facility] [address] [place] [address] Dr. Rashmi Nolan Erythrocyte distribution width (RBC) [Ratio] 14.6 % Normal 11.0-15.0 [facility] Comment on above: Performed By: #### C BC #### [facility] [address] [place] [address] Dr. Rashmi Nolan Hematocrit (Bld) [Volume fraction] 23.7 % Critically low 42.0-54.0 [facility] Comment on above: Performed By: #### C BC #### [facility] [address] [place] [address] Dr. Rashmi Nolan Hemoglobin (Bld) [Mass/Vol] 7.8 g/dL Critically low 14.0-18.0 [facility] Comment on above: Performed By: #### C BC #### [facility] [address] [place] [address] Dr. Rashmi Nolan IG # 0.01 10e3/ul Normal 0.00-0.03 [facility] Comment on above: Performed By: #### C BC #### [facility] [address] [place] [address] Dr. Rashmi Nolan IG % 0.2 % Normal 0.0-0.5 [facility] Comment on above: Performed By: #### C BC #### [facility] [address] [place] [address] Dr. Rashmi Nolan LYMPH # 0.9 103/ul Critically low 1.2-3.8 [facility] Comment on above: Performed By: #### C BC #### [facility] [address] [place] [address] Dr. Rashmi Nolan Lymphocytes/100 WBC (Bld) 19.6 % Critically low 20.5-60.0 [facility] Comment on above: Performed By: #### C BC #### [facility] [address] [place] [address] Dr. Rashmi Nolan MANUAL DIFF REQ NO Normal [facility] Comment on above: Performed By: #### C BC #### [facility] [address] [place] [address] Dr. Rashmi Nolan MCH (RBC) [Entitic mass] 34.7 pg Critically high 25.9-34.0 [facility] Comment on above: Performed By: #### C BC #### [facility] [address] [place] [address] Dr. Rashmi Nolan MCHC (RBC) [Mass/Vol] 32.9 g/dL Normal 29.9-35.2 [facility] Comment on above: Performed By: #### C BC #### [facility] [address] [place] [address] Dr. Rashmi Nolan MCV (RBC) [Entitic vol] 105.3 fL Critically high 80.0-94.0 [facility] Comment on above: Performed By: #### C BC #### [facility] [address] [place] [address] Dr. Rashmi Nolan MONO # 0.3 103/ul Normal 0.3-0.8 [facility] Comment on above: Performed By: #### C BC #### [facility] [address] [place] [address] Dr. Rashmi Nolan Monocytes/100 WBC (Bld) 7.2 % Normal 1.7-12.0 [facility] Comment on above: Performed By: #### C BC #### [facility] [address] [place] [address] Dr. Rashmi oNlan NEUT # 3.0 103/ul Normal 1.4-6.5 [facility] Comment on above: Performed By: #### C BC #### [facility] [address] [place] [address] Dr. Rashmi Nolan Neutrophils/100 WBC (Bld) 67.4 % Normal 43.0-75.0 [facility] Comment on above: Performed By: #### C BC #### [facility] [address] [place] [address] Dr. Rashmi Nolan Platelet mean volume (Bld) [Entitic vol] 9.8 fL Normal 9.5-13.5 [facility] Comment on above: Performed By: #### C BC #### [facility] [address] [place] [address] Dr. Rashmi Nolan PLT 156 103/ul Normal 150-450 [facility] Comment on above: Performed By: #### C BC #### [facility] [address] [place] [address] Dr. Rashmi Nolan RBC 2.25 106/ul Critically low 4.70-6.10 [facility] Comment on above: Performed By: #### C BC #### [facility] [address] [place] [address] Dr. Rashmi Nolan WBC 4.5 103/ul Normal 4.0-11.0 [facility] Comment on above: Performed By: #### C BC #### [facility] [address] [place], [place] [address] Dr. Rashmi Nolan CBC w/ Auto Diffon 3 Erythrocyte distribution width (RBC) [Ratio] 14.9 % High 10.9-14.2 [facility] Comment on above: Performed By: #### 1 [id number], [id number], [id number] ####[facility] [address] [place] [address] Hematocrit (Bld) [Volume fraction] 24.1 % Low 37.7-49.0 [facility] Comment on above: Performed By: #### 1 [id number], [id number], [id number] ####[facility] [address] [place] [address] Hemoglobin (Bld) [Mass/Vol] 8.1 g/dL Low 13.5-17.5 [facility] Comment on above: Performed By: #### 1 [id number], [id number], [id number] ####[facility] [address] [place] [address] MCH (RBC) [Entitic mass] 34.0 pg Normal 27.0-34.0 [facility] Comment on above: Performed By: #### 1 [id number], [id number], [id number] ####[facility] [address] [place] [id number] MCHC (RBC) [Mass/Vol] 33.6 g/dL Normal 31.4-36.0 [facility] Comment on above: Performed By: #### 1 [id number], [id number], [id number] ####[facility] [address] [place] [address] MCV (RBC) [Entitic vol] 101.1 fL High 80.0-100.0 [facility] Comment on above: Performed By: #### 1 [id number], [id number], [id number] ####[address] [place] [address] Platelet mean volume (Bld) [Entitic vol] 8.9 fL Normal 6.4-10.8 [facility] Comment on above: Performed By: #### 1 [id number], [id number], [id number] ####[facility] [id number] [place] [address] Platelets (Bld) [#/Vol] 177.0 E9/L Normal 150.0-500.0 [facility] Comment on above: Performed By: #### 1 [id number], [id number], [id number] ####[facility] [address] [place] [address] RBC (Bld) [#/Vol] 2.4 E12/L Low 4.3-5.9 [facility] Comment on above: Performed By: #### 1 [id number], [id number], [id number] ####[address] [place] [address] WBC corrected for nucl RBC Auto (Bld) [#/Vol] 5.2 E9/L Normal 4.0-11.0 [facility] Comment on above: Performed By: #### 1 [id number], [id number], [id number] ####[facility] [address] [place] [address] CHEMISTRYOrdered By: SYSTEM SYSTEM on 12-11-2022 Iron binding capacity [Mass/Vol] 417 ug/dL High 250 - 400 mcg/dL [facility] Remisol Transferrin [Mass/Vol] 298 mg/dL Normal 200 - 370 mg/dL [facility] Remisol Consent Formson 12-11-2022 Consent Forms [id number] Normal [facility] Medicine Office/Clini c Noteon 12-11-2022 Family Medicine Office/Clinic Note HPI Staff Noemi is an 87 year old male who presents to establish care. 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 Matrinez, Dr. Royal Jordan-Cardiology [facility] Last provider: Dr. [...] he turned 79 years old. Will call [facility] and request records for any colonoscopy in 2015 or more recent. Review of Systems PHQ Score Initial Depression Screen Score: 0 Physical Exam Vitals & Measurements HR: 60(Peripheral) BP: 128/62 SpO2: 98% HT: 70 in HT: 178.5 cm WT: 99 kg WT: 217.8 lb BMI: 31.07 Assessment/Plan 1. Black tarry stools (K92.1: Melena) Ordered: CBC w/ Auto Diff Fibrinogen Lvl [facility] Internal Ambulatory Referral Lab Specimen Collect [id number] PT & PTT Stool Occult Blood Stool Occult Blood TIBC Calculated 2. Family hx of colon cancer (Z80.0: Family history of malignant neoplasm of digestive organs) Ordered: [facility] Internal Ambulatory Referral Lab Specimen Collect [id number] Stool Occult Blood 3. Colon cancer screening (Z12.11: Encounter for screening for malignant neoplasm of colon) Ordered: [facility] Internal Ambulatory Referral Lab Specimen Collect [id number] Stool Occult Blood 4. BMI 31.0-31.9,adult (Z68.31: Body mass index [BMI] 31.0-31.9, adult) Ordered: [facility] Internal Ambulatory Referral Stool Occult Blood Follow-up [...] Brissa VICKERS, Sheng Calix\.br\Date and Time Signed: 12/11/22 13:49 EDT Family Medicine Office/Clinic Note HPI Staff Noemi is an 87 year old male who presents to establish care. 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 Martinez, Dr. Royal Jordan-Cardiology [facility], [facility] Last provider: Dr. [...] he turned 79 years old. Will call [facility] and request records for any [...] he had colonoscopy 6-7 years ago at [facility]. will call to access those records. pt has significant family history of colon cancer. will send stool to lab, will draw CBC and clotting studies in office today. will call patient tomorrow to advise if he should stop taking warfarin depending on lab results. all questions answered. RTC as needed Ordered: CBC w/ Auto Diff Fibrinogen Lvl [facility] Internal Ambulatory Referral PT & PTT Stool Occult Blood Stool Occult Blood TIBC Calculated 2. Family hx of colon cancer (Z80.0: Family history of malignant neoplasm of digestive organs) referral to Dr. Jiang placed for scope Ordered: [facility] Internal Ambulatory Referral Stool Occult Blood 3. Colon cancer screening (Z12.11: Encounter for screening for malignant neoplasm of colon) see above Ordered: [facility] Internal Ambulatory Referral Stool Occult Blood 4. BMI 31.0-31.9,adult (Z68.31: Body mass index [BMI] 31.0-31.9, adult) BMI education complete Ordered: [facility] Internal Ambulatory Referral Stool Occult Blood Follow-up [...] neoplasm of (more content not included)... Normal [facility] Comment on above: Result Comment: Elec [...] 023 Albumin [Mass/Vol] 3.8 g/dL Normal 3.4-5.0 [facility] Comment on above: Performed By: #### B MP #### [facility] [address] [address] [address] Rashmi Nolan Albumin/Globulin [Mass ratio] 1.1 {ratio} Normal [facility] Comment on above: Performed By: #### B MP #### [facility] [address] [address] [address] Rashmi Nolan ALP [Catalytic activity/Vol] 178 U/L Critically high 46-116 [facility] Comment on above: Performed By: #### B MP #### [facility] [address] [address] [address] Rashmi Nolan ALT [Catalytic activity/Vol] 17 U/L Normal 16-63 [facility] Comment on above: Performed By: #### B MP #### [facility] [address] [address] [address] Rashmi Nolan Anion gap [Moles/Vol] 15.6 mmol/L Normal Th e [facility] Comment on above: Performed By: #### B MP #### [facility] [address] [address] [address] Rashmi Nolan AST [Catalytic activity/Vol] 12 U/L Critically low 15-37 [facility] Comment on above: Performed By: #### B MP #### [facility] [address] [address] [address] Rashim Nolan Bilirubin [Mass/Vol] 0.2 mg/dL Normal 0.2-1.0 [facility] Comment on above: Performed By: #### B MP #### [facility] [address] [address] [address] Rashmi Nolan Calcium [Mass/Vol] 9.5 mg/dL Normal 8.5-10.1 [facility] Comment on above: Performed By: #### B MP #### [facility] [address] [address] [address] Rashmi Nolan Chloride [Moles/Vol] 109 mmol/L Critically high 98-107 [facility] Comment on above: Performed By: #### B MP #### [facility] [address] [address] [address] Rashmi Nolan CO2 [Moles/Vol] 22.5 mmol/L Normal 21.0-32.0 [facility] Comment on above: Performed By: #### B MP #### [facility] [address] [address] [address] Rashmi Nolan Creatinine [Mass/Vol] 2.11 mg/dL Critically high 0.70-1.30 [facility] Comment on above: Performed By: #### B MP #### [facility] [address] [address] [address] Rashmi Nolan EGFR-AF URUGUAYAN 36 mL/min/1.73m2 Critically low >=60 [facility] Comment on above: Performed By: #### B MP #### [facility] [address] [address] [address] Rashmi Nolan EGFR-NON AF URUGUAYAN 30 mL/min/1.73m2 Critically low >=60 [facility] Comment on above: Performed By: #### B MP #### [facility] [address] [address] [address] Rashmi Nolan Globulin (S) [Mass/Vol] 3.4 g/dL Normal [facility] Comment on above: Performed By: #### B MP #### [facility] [address] [address] [address] Rashmi Nolan Glucose [Mass/Vol] 115 mg/dL Critically high 74-106 [facility] Comment on above: Performed By: #### B MP #### [facility] [address] [address] [address] Rashmi Nolan Potassium [Moles/Vol] 5.1 mmol/L Normal 3.5-5.1 [facility] Comment on above: Performed By: #### B MP #### [facility] [address] [address] [address] Rashmi Nolan Protein [Mass/Vol] 7.2 g/dL Normal 6.4-8.2 [facility] Comment on above: Performed By: #### B MP #### [facility] [address] [address] [address] Rashmi Nolan Sodium [Moles/Vol] 142 mmol/L Normal 136-145 [facility] Comment on above: Performed By: #### B MP #### [facility] [address] [place] [address] Dr. Rashmi Nolan Urea nitrogen [Mass/Vol] 57.0 mg/dL Critically high 7.0-18.0 [facility] Comment on above: Performed By: #### B MP #### [facility] [address] [place] [address] Dr. Rashmi Nolan Urea nitrogen/Creatinine [Mass ratio] 27.0 mg/mg Normal [facility] Comment on above: Performed By: #### B MP #### [facility] [address] [place] [address] Dr. Rashmi Nolan PROTIMEon 12-11-2022 INR Coag (PPP) [Relative time] 1.95 {INR} Normal [facility] Comment on above: Performed By: #### P T, PTT #### [facility] [address] [place] [address] Dr. Rashmi Nolan INR GUIDELINES SEE BELOW Normal [facility] Comment on above: Result Comment: ENOC RED INR: 2.0 - 3.0 CONDITIONS NOT LISTED BELOW 2.5 - 3.5 FOR PROSTHETIC HEART VALVE REPLACEMENT 2.5 - 3.5 RECURRENT THROMBOSIS Performed By: #### P T, PTT #### [facility] [address] [place] [address] Dr. Rashmi Nolan PT Coag (PPP) [Time] 19.9 s Critically high 9.0-11.6 [facility] Comment on above: Performed By: #### P T, PTT #### [facility] [address] [place] [address] Dr. Rashmi Nolan PTTon 12-11-2022 aPTT Coag (Bld) [Time] 30.3 s Normal 22.3-36.2 [facility] Comment on above: Performed By: #### P T, PTT #### [facility] [address] [place] [address] Dr. Rashmi Nolan Stl Oclt Bldon 12-11-2022 Occult Bld Stl Positive Abnormal Negative [facility] Comment on above: Performed By: #### 2 [id number] #### [facility] [address] [place] [address] TIBC Calculatedon 12-11-2022 Iron binding capacity [Mass/Vol] 417 microgram/dL High 250-400 [facility] Comment on above: Performed By: #### 1 [id number], [id number], [id number] ####[facility] [address] [place] [address] Transferrin [Mass/Vol] 298 mg/dL Normal 200-370 [facility] Comment on above: Performed By: #### 1 [id number], [id number], [id number] ####[facility] [address] [place] [address] TYPE AND SCREENon 12-11-2022 TYPE AND SCREEN Negative Normal [facility] Comment on above: Performed By: #### C BC #### [facility] [address] [place], [place] [address] Dr. Rashmi Nolan XR CHEST 1 Von [...] STEPHANIE LIU Date: 2022-12-11 21:04 Normal [facility] Inpatient Patient Summaryon 12-10-2022 [place] [address] Patient Discharge Instructions Name: RY LERNER : 1935 Patient Address: [address] [place] [address] Primary Care Provider: Name: John Nieves MD After you are discharged if you find you have any questions, please, call [phone] ext [phone] to speak to a nurse. 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 If you or anyone you know is experiencing suicidal thoughts, mental health, alcohol and/or drug addiction problems; contact the [facility] 18/02 Crisis Hotline -Text 4HOPE to 314427. If you received any narcotics, sedation, or [...] business decisions or sign any legal documents [facility] would like to thank you for allowing us to assist you with your healthcare needs. The following includes patient education materials and information regarding your injury/illness. RY LERNER has been given the following list of follow-up instructions, prescriptions, and patient education materials: Follow-up Instructions With: Address: When: Ward Martinez [address] [place] [address], [address] [place] [address] Business (1) 12/18/2022 1:30 PM Medications During [...] 3. DO NOT lift heavy objects or greeter forcefully with your hand 4. Change your [...] or concerns, please call the office at [phone] 7. Follow up as scheduled Viruses or [...] and Prevention Septe (more content not included)... [facility] Preoperative Recordon 0 12-10-2022 MAGR Preoperative Record MAGR Pre-Op Record Summary Primary Physician: Ward Martinez DO Finalized Date/Time: 12/10/22 15:29:41 Pt. Name: RY LERNER /Sex: 1935 MALE Med Rec #: [id number] Physician: Ward Martinez DO Financial #: [id number] Pt. Type: D Room/Bed: / Admit/Disch: 12/10/22 [...] Signed By: Maile Palmer RN 12/10/22 15:29 [facility] Patient Handouton 12-10-[address] 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 Keep your hand elevated above your elbow for the first 24 hours after surgery 2. Wiggle your fingers frequently while awake 3. DO NOT lift heavy objects or greeter forcefully with your hand 4. Change your [...] or concerns, please call the office at [phone] 7. Follow up as scheduled [facility] 36on 11-13-2022 36 Potassium was high, renal function is stable. Can stop taking potassium supplement and repeat BMP in one week. Normal [facility] Physician Referralon 023 Physician Referral [id number] #1.00CD:127 Normal [facility] Physician Referral [id number] .[id number]:127 Normal [facility] MAGNESIUMon 11-06-2022 Magnesium [Mass/Vol] 2.2 mg/dL Normal 1.8-2.4 [facility] Comment on above: Performed By: #### B MP, MG #### [facility] [address] [place] [address] Dr. Rashmi Nolan Office Visiton 11-06-2022 Follow-up visit [id number] Ry Lerner 1935 Date Provider Department [place] 11/06/2022 SOLIS MARINELLI [facility] Family History Family history unknown: Yes Level of Service:73084 MS OFFICE/OUTPATIENT ESTABLISHED MOD MDM 30-39 MIN Reason for Visit and Comments: Atrial Fibrillation [80] Hypertension [534403] Normal [facility] PROF CHEM 8 (BAS METB)on Anion gap [Moles/Vol] 15.0 mmol/L Normal [facility] Comment on above: Performed By: #### B MP, MG #### [facility] [address] [place] [address] Dr. Rashmi Nolan Calcium [Mass/Vol] 10.0 mg/dL Normal 8.5-10.1 [facility] Comment on above: Performed By: #### B MP, MG #### [facility] [address] [place] [address] Dr. Rashmi Nolan Chloride [Moles/Vol] 108 mmol/L Critically high 98-107 [facility] Comment on above: Performed By: #### B MP, MG #### [facility] [address] [place] [address] Dr. Rashmi Nolan CO2 [Moles/Vol] 25.4 mmol/L Normal 21.0-32.0 [facility] Comment on above: Performed By: #### B MP, MG #### [facility] [address] [address] [address] Rashmi Nolan Creatinine [Mass/Vol] 1.98 mg/dL Critically high 0.70-1.30 [facility] Comment on above: Performed By: #### B MP, MG #### [facility] [address] [address] [address] Rashmi Nolan EGFR-AF URUGUAYAN 39 mL/min/1.73m2 Critically low >=60 [facility] Comment on above: Performed By: #### B MP, MG #### [facility] [address] [place] [address] Dr. Rashmi Nolan EGFR-NON AF URUGUAYAN 32 mL/min/1.73m2 Critically low >=60 [facility] Comment on above: Performed By: #### B MP, MG #### [facility] [address] [place] [address] Dr. Rashmi Nolan Glucose [Mass/Vol] 99 mg/dL Normal 74-106 [facility] Comment on above: Performed By: #### B MP, MG #### [facility] [address] [place] [address] Dr. Rasmhi Nolan Potassium [Moles/Vol] 5.4 mmol/L Critically high 3.5-5.1 [facility] Comment on above: Performed By: #### B MP, MG #### [facility] [address] [place] [address] Dr. Rashmi Nolan Sodium [Moles/Vol] 143 mmol/L Normal 136-145 [facility] Comment on above: Performed By: #### B MP, MG #### [facility] [address] [place] [address] Dr. Rashmi Nolan Urea nitrogen [Mass/Vol] 52.0 mg/dL Critically high 7.0-18.0 [facility] Comment on above: Performed By: #### B MP, MG #### [facility] [address] [place] [address] Dr. Rashmi Nolan Urea nitrogen/Creatinine [Mass ratio] 26.3 mg/mg Normal [facility] Comment on above: Performed By: #### B MP, MG #### [facility] [address] [place] [address] Dr. Rashmi Nolan VIT B12 AND FOLATEon 023 Cobalamin (Vitamin B12) [Mass/Vol] 514.0 pg/mL Normal 193.0-986.0 [facility] Comment on above: Performed By: #### B MP #### [facility] [address] [place] [address] Dr. Rashmi Nolan FOLATE 10.00 ng/mL Normal 8.60-58.90 [facility] Comment on above: Performed By: #### B MP #### [facility] [address] [place] [address] Dr. Rashmi Nolan CBC AUTO DIFFon 08-16-2022 BASO # 0.0 103/ul Normal 0.0-0.1 [facility] Comment on above: Performed By: #### B MP #### [facility] [address] [place] [address] Dr. Rashmi Nolan Basophils/100 WBC (Bld) 0.8 % Normal 0.2-2.0 [facility] Comment on above: Performed By: #### B MP #### [facility] [address] [place] [address] Dr. Rashmi Nolan EO # 0.3 103/ul Normal 0.0-0.7 [facility] Comment on above: Performed By: #### B MP #### [facility] [address] [place] [address] Dr. Rashmi Nolan Eosinophils/100 WBC (Bld) 7.8 % Critically high 0.9-7.0 [facility] Comment on above: Performed By: #### B MP #### [facility] [address] [place] [address] Dr. Rashmi Nolan Erythrocyte distribution width (RBC) [Ratio] 13.2 % Normal 11.0-15.0 [facility] Comment on above: Performed By: #### B MP #### [facility] [address] [address] [address] Rashmi Nolan Hematocrit (Bld) [Volume fraction] 33.2 % Critically low 42.0-54.0 [facility] Comment on above: Performed By: #### B MP #### [facility] [address] [place] [address] Dr. Rashmi Nolan Hemoglobin (Bld) [Mass/Vol] 10.8 g/dL Critically low 14.0-18.0 [facility] Comment on above: Performed By: #### B MP #### [facility] [address] [place] [address] Dr. Rashmi Nolan IG # 0.01 10e3/ul Normal 0.00-0.03 [facility] Comment on above: Performed By: #### B MP #### [facility] [address] [place] [address] Dr. Rashmi Nolan IG % 0.3 % Normal 0.0-0.5 [facility] Comment on above: Performed By: #### B MP #### [facility] [address] [place] [address] Dr. Rashmi Nolan LYMPH # 1.0 103/ul Critically low 1.2-3.8 [facility] Comment on above: Performed By: #### B MP #### [facility] [address] [place] [address] Dr. Rashmi Nolan Lymphocytes/100 WBC (Bld) 24.7 % Normal 20.5-60.0 [facility] Comment on above: Performed By: #### B MP #### [facility] [address] [place] [address] Dr. Rashmi Nolan MANUAL DIFF REQ NO Normal [facility] Comment on above: Performed By: #### B MP #### [facility] [address] [place] [address] Dr. Rashmi Nolan MCH (RBC) [Entitic mass] 33.0 pg Normal 25.9-34.0 [facility] Comment on above: Performed By: #### B MP #### [facility] [address] [address] [address] Rashmi Nolan MCHC (RBC) [Mass/Vol] 32.5 g/dL Normal 29.9-35.2 [facility] Comment on above: Performed By: #### B MP #### [facility] [address] [address] [address] Rashmi Nolan MCV (RBC) [Entitic vol] 101.5 fL Critically high 80.0-94.0 [facility] Comment on above: Performed By: #### B MP #### [facility] [address] [address] [address] Rashmi Nolan MONO # 0.4 103/ul Normal 0.3-0.8 [facility] Comment on above: Performed By: #### B MP #### [facility] [address] [place] [address] Dr. Rashmi Nolan Monocytes/100 WBC (Bld) 10.7 % Normal 1.7-12.0 [facility] Comment on above: Performed By: #### B MP #### [facility] [address] [place] [address] Dr. Rashmi Nolan NEUT # 2.1 103/ul Normal 1.4-6.5 [facility] Comment on above: Performed By: #### B MP #### [facility] [address] [place] [address] Dr. Rashmi Nolan Neutrophils/100 WBC (Bld) 55.7 % Normal 43.0-75.0 [facility] Comment on above: Performed By: #### B MP #### [facility] [address] [place] [address] Dr. Rashmi Nolan Platelet mean volume (Bld) [Entitic vol] 10.5 fL Normal 9.5-13.5 [facility] Comment on above: Performed By: #### B MP #### [facility] [address] [place] [address] Dr. Rashmi Nolan PLT 160 103/ul Normal 150-450 [facility] Comment on above: Performed By: #### B MP #### [facility] [address] [address] [address] Rashmi Nolan RBC 3.27 106/ul Critically low 4.70-6.10 [facility] Comment on above: Performed By: #### B MP #### [facility] [address] [address] [address] Rashmi Nolan WBC 3.8 103/ul Critically low 4.0-11.0 [facility] Comment on above: Performed By: #### B MP #### [facility] [address] [address] [address] Rashmi Nolan LIPID PROFILEon 08-16-2022 CHOL-HDL RATIO NORM SEE BELOW Normal [facility] [facility] Comment on above: Result Comment: 3.3 - 4.4 LOW RISK 4.4 - 7.1 AVERAGE RISK 7.1 - 11.0 MODERATE RISK >11.0 HIGH RISK Performed By: #### B MP #### [facility] [address] [address] [address] Rashmi Nolan Cholesterol [Mass/Vol] 166 mg/dL Normal <=200 [facility] Comment on above: Performed By: #### B MP #### [facility] [address] [address] [address] Rashmi Noaln Cholesterol in HDL [Mass/Vol] 42 mg/dL Normal 40-60 [facility] Comment on above: Performed By: #### B MP #### [facility] [address] [address] [address] Rashmi Nolan Cholesterol in LDL [Mass/Vol] 110.4 mg/dL Normal [facility] Comment on above: Performed By: #### B MP #### [facility] [address] [address] [address] Rashmi Nolan Cholesterol.total/Cho lesterol in HDL [Mass ratio] 4.0 {ratio} Normal [facility] Comment on above: Performed By: #### B MP #### [facility] [address] [address] [address] Rashmi Nolan HDL NORMAL > or = 60 mg/dl - LO W CARDIOVASCULAR RISK <40 mg/dl - HIGH CARDIOVASCULAR RISK Normal [facility] Comment on above: Performed By: #### B MP #### [facility] [address] [address] [address] Rashmi Nolan LDL CALC NORMAL SEE BELOW Normal [facility] Comment on above: Result Comment: <100 mg/dl OPTIMAL 100 - 129 mg/dl NEAR OR ABOVE OPTIMAL 130 - 159 mg/dl BORDERLINE HIGH 160 - 189 mg/dl HIGH >190 mg/dl VERY HIGH Performed By: #### B MP #### [facility] [address] [address] [address] Rashmi Nolan Triglyceride [Mass/Vol] 68 mg/dL Normal <=150 [facility] Comment on above: Performed By: #### B MP #### [facility] [address] [address] [address] Rashmi Nolan VLDL CALC 13.6 mg/dL Normal [facility] Comment on above: Performed By: #### B MP #### [facility] [address] [address] [address] Rashmi Nolan PROF 14(COMP METB)on 023 Albumin [Mass/Vol] 3.9 g/dL Normal 3.4-5.0 [facility] Comment on above: Performed By: #### B MP #### [facility] [address] [address] [address] Rashmi Nolan Albumin/Globulin [Mass ratio] 1.1 {ratio} Normal [facility] Comment on above: Performed By: #### B MP #### [facility] [address] [address] [address] Rashmi Nolan ALP [Catalytic activity/Vol] 190 U/L Critically high 46-116 [facility] Comment on above: Performed By: #### B MP #### [facility] [address] [address] [address] Rashmi Nolan ALT [Catalytic activity/Vol] 15 U/L Critically low 16-63 [facility] Comment on above: Performed By: #### B MP #### [facility] [address] [address] [address] Rashmi Nolan Anion gap [Moles/Vol] 15.2 mmol/L Normal Th e [facility] Comment on above: Performed By: #### B MP #### [facility] [address] [address] [address] Rashmi Nolan AST [Catalytic activity/Vol] 17 U/L Normal 15-37 [facility] Comment on above: Performed By: #### B MP #### [facility] [address] [address] [address] Rashmi Nolan Bilirubin [Mass/Vol] 0.4 mg/dL Normal 0.2-1.0 [facility] Comment on above: Performed By: #### B MP #### [facility] [address] [address] [address] Rashmi Nolan Calcium [Mass/Vol] 10.0 mg/dL Normal 8.5-10.1 [facility] Comment on above: Performed By: #### B MP #### [facility] [address] [address] [address] Rashmi Nolan Chloride [Moles/Vol] 108 mmol/L Critically high 98-107 [facility] Comment on above: Performed By: #### B MP #### [facility] [address] [address] [address] Rashmi Nolan CO2 [Moles/Vol] 25.8 mmol/L Normal 21.0-32.0 [facility] Comment on above: Performed By: #### B MP #### [facility] [address] [address] [address] Rashmi Nolan Creatinine [Mass/Vol] 1.78 mg/dL Critically high 0.70-1.30 [facility] Comment on above: Performed By: #### B MP #### [facility] [address] [address] [address] Rashmi Nolan EGFR-AF URUGUAYAN 44 mL/min/1.73m2 Critically low >=60 [facility] Comment on above: Performed By: #### B MP #### [facility] [address] [address] [address] Rashmi Nolan EGFR-NON AF URUGUAYAN 36 mL/min/1.73m2 Critically low >=60 [facility] Comment on above: Performed By: #### B MP #### [facility] [address] [address] [address] Rashmi Nolan Globulin (S) [Mass/Vol] 3.7 g/dL Normal [facility] Comment on above: Performed By: #### B MP #### [facility] [address] [address] [address] Rashmi Nolan Glucose [Mass/Vol] 100 mg/dL Normal 74-106 [facility] Comment on above: Performed By: #### B MP #### [facility] [address] [address] [address] Rashmi Nolan Potassium [Moles/Vol] 5.0 mmol/L Normal 3.5-5.1 [facility] Comment on above: Performed By: #### B MP #### [facility] [address] [address] [address] Rashmi Nolan Protein [Mass/Vol] 7.6 g/dL Normal 6.4-8.2 [facility] Comment on above: Performed By: #### B MP #### [facility] [address] [address] [address] Rashmi Nolan Sodium [Moles/Vol] 144 mmol/L Normal 136-145 [facility] Comment on above: Performed By: #### B MP #### [facility] [address] [address] [address] Rashmi Nolan Urea nitrogen [Mass/Vol] 52.0 mg/dL Critically high 7.0-18.0 [facility] Comment on above: Performed By: #### B MP #### [facility] [address] [address] [address] Rashmi Nolan Urea nitrogen/Creatinine [Mass ratio] 29.2 mg/mg Normal [facility] Comment on above: Performed By: #### B MP #### [facility] [address] [address] [address] Rashmi Nolan PROF CHEM 8 (BAS METB)on Anion gap [Moles/Vol] 13.3 mmol/L Normal [facility] Comment on above: Performed By: #### C BC #### [facility] [address] [address] [address] Rashmi Nolan Calcium [Mass/Vol] 10.1 mg/dL Normal 8.5-10.1 [facility] Comment on above: Performed By: #### C BC #### [facility] [address] [address] [address] Rashmi Nolan Chloride [Moles/Vol] 104 mmol/L Normal 98-107 [facility] Comment on above: Performed By: #### C BC #### [facility] [address] [address] [address] Rashmi Nolan CO2 [Moles/Vol] 28.7 mmol/L Normal 21.0-32.0 [facility] Comment on above: Performed By: #### C BC #### [facility] [address] [address] [address] Rashmi Nolan Creatinine [Mass/Vol] 1.87 mg/dL Critically high 0.70-1.30 [facility] Comment on above: Performed By: #### C BC #### [facility] [address] [address] [address] Rashmi Nolan EGFR-AF URUGUAYAN 42 mL/min/1.73m2 Critically low >=60 [facility] Comment on above: Performed By: #### C BC #### [facility] [address] [address] [address] Rashmi Nolan EGFR-NON AF URUGUAYAN 34 mL/min/1.73m2 Critically low >=60 [facility] Comment on above: Performed By: #### C BC #### [facility] [address] [address] [address] Rashmi Nolan Glucose [Mass/Vol] 101 mg/dL Normal 74-106 [facility] Comment on above: Performed By: #### C BC #### [facility] [address] [address] [address] Rashmi Nolan Potassium [Moles/Vol] 5.0 mmol/L Normal 3.5-5.1 [facility] Comment on above: Performed By: #### C BC #### [facility] [address] [address] [address] Rashmi Nolan Sodium [Moles/Vol] 141 mmol/L Normal 136-145 [facility] Comment on above: Performed By: #### C BC #### [facility] [address] [place] [address] Dr. Rsahmi Nolan Urea nitrogen [Mass/Vol] 41.0 mg/dL Critically high 7.0-18.0 [facility] Comment on above: Performed By: #### C BC #### [facility] [address] [place] [address] Dr. Rashmi Nolan Urea nitrogen/Creatinine [Mass ratio] 21.9 mg/mg Normal [facility] Comment on above: Performed By: #### C BC #### [facility] [address] [place] [address] Dr. Rashmi Nolan COVID/FLU RT-PCRon 2 SARS-CoV-2 (COVID-19) RNA ETELVINA+probe Ql (Unsp spec) Positive [employer] Other COVID/FLU RT-PCR Negative [employer] [facility] [place] Other BNPon 02-15-2022 Natriuretic peptide B (Bld) [Mass/Vol] 1653.0 pg/mL Normal <=1,800.0 [facility] Comment on above: Performed By: #### C BC #### [facility] [address] [place] [address] Dr. Rashmi Nolan PROF CHEM 8 (BAS METB)on Anion gap [Moles/Vol] 15.8 mmol/L Normal [facility] Comment on above: Performed By: #### C BC #### [facility] [address] [place] [address] Dr. Rashmi Nolan Calcium [Mass/Vol] 9.6 mg/dL Normal 8.5-10.1 [facility] Comment on above: Performed By: #### C BC #### [facility] [address] [place], [place] [id number] Dr. Rashmi Nolan Chloride [Moles/Vol] 108 mmol/L Critically high 98-107 [facility] Comment on above: Performed By: #### C BC #### [facility] [address] [address] [address] Rashmi Nolan CO2 [Moles/Vol] 24.2 mmol/L Normal 21.0-32.0 [facility] Comment on above: Performed By: #### C BC #### [facility] [address] [address] [address] Rashmi Nolan Creatinine [Mass/Vol] 1.87 mg/dL Critically high 0.70-1.30 [facility] Comment on above: Performed By: #### C BC #### [facility] [address] [place] [address] Dr. Rashmi Nolan EGFR-AF URUGUAYAN 42 mL/min/1.73m2 Critically low >=60 [facility] Comment on above: Performed By: #### C BC #### [facility] [address] [place] [address] Dr. Rashmi Nolan EGFR-NON AF URUGUAYAN 34 mL/min/1.73m2 Critically low >=60 [facility] Comment on above: Performed By: #### C BC #### [facility] [address] [place] [address] Dr. Rashmi Nolan Glucose [Mass/Vol] 107 mg/dL Critically high 74-106 [facility] Comment on above: Performed By: #### C BC #### [facility] [address] [place] [address] Dr. Rashmi Nolan Potassium [Moles/Vol] 5.0 mmol/L Normal 3.5-5.1 [facility] Comment on above: Performed By: #### C BC #### [facility] [address] [address] [address] Rashmi Nolan Sodium [Moles/Vol] 143 mmol/L Normal 136-145 [facility] Comment on above: Performed By: #### C BC #### [facility] [address] [address] [address] Rashmi Nolan Urea nitrogen [Mass/Vol] 28.0 mg/dL Critically high 7.0-18.0 [facility] Comment on above: Performed By: #### C BC #### [facility] [address] [address] [address] Rashmi Nolan Urea nitrogen/Creatinine [Mass ratio] 15.0 mg/mg Normal [facility] Comment on above: Performed By: #### C BC #### [facility] [address] [address] [address] Rashmi Nolan APTTon 10-13-2021 aPTT Coag (Bld) [Time] 36.7 s High 25.0-35.0 [facility] Comment on above: Result Comment: ALL RESULTS [...] PURPOSE. Performed By: #### 5 0103 #### [facility] [address] BASIC METABOLIC PANELon 09-26 Calcium [Mass/Vol] 9.7 mg/dL Normal 8.6-10.3 [facility] Comment on above: Performed By: #### 0 0071, [id number], 82048, 28761 #### [facility] [address] [facility] [place] [address], [facility] Chloride [Moles/Vol] 108 mmol/L High 98-107 [facility] Comment on above: Performed By: #### 0 0071, 40324, 86413, 97418 #### [facility] [address] [facility] [place] [address], [facility] CO2 [Moles/Vol] 23 mmol/L Normal 21-31 [facility] Comment on above: Performed By: #### 0 0071, 48834, 24435, 92642 #### [facility] [address] [place] [address], [facility] Creatinine [Mass/Vol] 1.98 mg/dL High 0.70-1.30 [facility] Comment on above: Performed By: #### 0 0071, 15936, 12371, 77620 #### [facility] [address] [place] [address], [facility] eGFR- 39 ml/min/1.73sq m Abnormal >[address] [facility] Comment on above: Result Comment: Calc ulation may not be valid for patients over 70 years Performed By: #### 0 0071, 46672, 70309, 85103 #### [facility] [address] [place] [address], [facility] eGFR- non- 32 ml/min/1.73sq m Abnormal >[address] [facility] Comment on above: Result Comment: Calc ulation may not be valid for patients over 70 years Performed By: #### 0 0071, 44457, 54310, 34999 #### [facility] [address] [place] [address], [place] Glucose [Mass/Vol] 88 mg/dL Normal 70-100 [facility] Comment on above: Performed By: #### 0 0071, 74024, 90615, 58991 #### [facility] [address] [place] [address], [place] Potassium [Moles/Vol] 4.8 mmol/L Normal 3.5-5.1 [facility] Comment on above: Performed By: #### 0 0071, 34848, 23858, 91593 #### [facility] [address] [place] [address], [place] Sodium [Moles/Vol] 138 mmol/L Normal 136-145 [facility] Comment on above: Performed By: #### 0 0071, 70312, 20248, 89199 #### [facility] [address] [facility] [place] [address], [facility] Urea nitrogen [Mass/Vol] 46 mg/dL High 7-25 [facility] Comment on above: Performed By: #### 0 0071, 96894, 56176, 59676 #### [facility] [address] [place] [address], [facility] BNP EDon 10-13-2021 Natriuretic peptide B (Bld) [Mass/Vol] 428 pg/mL High 0-100 [facility] Comment on above: Result Comment: Give n the appropriate clinical setting a BNP result of >100 pg/mL indicates congestive heart failure. Performed By: #### 3 0935 #### [facility] [address] [facility] [place] [address], [facility] CBC W/DIFFon 10-13-2021 ABS IMM GRANS 0.0 10*3/uL Normal 0.0-0.2 [facility] Comment on above: Performed By: #### 5 0103 #### [facility] [address] [facility] [place] [address], [facility] ABS NEUTROPHILS 2.8 10*3/uL Normal 1.6-7.6 [facility] Comment on above: Performed By: #### 5 0103 #### [facility] [address] [facility] [place] [address], [facility] Basophils (Bld) [#/Vol] 0.0 10*3/uL Normal 0.0-0.2 [facility] Comment on above: Performed By: #### 5 0103 #### [facility] [address] [facility] [place] [address], [facility] Basophils/100 WBC (Bld) 0.5 % Normal 0.0-1.0 [facility] Comment on above: Performed By: #### 5 0103 #### [facility] [address] [facility] [place] [address], [facility] Eosinophils (Bld) [#/Vol] 0.3 10*3/uL Normal 0.0-0.5 [facility] Comment on above: Performed By: #### 5 0103 #### [facility] [address] [facility] [place] [address], [facility] Eosinophils/100 WBC (Bld) 7.4 % High 0.0-6.0 [facility] Comment on above: Performed By: #### 5 0103 #### [facility] [address] [facility] [place] [address], [facility] Erythrocyte distribution width (RBC) [Ratio] 13.9 % Normal 11.5-15.0 [facility] Comment on above: Performed By: #### 5 0103 #### [facility] [address] [place] [address], [facility] Hematocrit (Bld) [Volume fraction] 33.5 % Low 39.0-50.0 [facility] Comment on above: Performed By: #### 5 0103 #### [facility] [address] [facility] [place] [address], [facility] Hemoglobin (Bld) [Mass/Vol] 11.4 g/dL Low 13.0-17.0 [facility] Comment on above: Performed By: #### 5 0103 #### [facility] [address] [place] [address], [facility] IMMATURE GRANS 0.2 % Normal 0.0-1.0 [facility] Comment on above: Performed By: #### 5 0103 #### [facility] [address] [address], [facility] Lymphocytes (Bld) [#/Vol] 0.9 10*3/uL Low 1.2-4.0 [facility] Comment on above: Performed By: #### 5 0103 #### [facility] [address] [place] [address], [facility] Lymphocytes/100 WBC (Bld) 20.1 % Normal 20.0-45.0 [facility] Comment on above: Performed By: #### 5 0103 #### [facility] [address] [address], [facility] MCH (RBC) [Entitic mass] 33.1 pg High 27.0-33.0 [facility] Comment on above: Performed By: #### 5 0103 #### [facility] [address] [place] [address], [facility] MCHC (RBC) [Mass/Vol] 34.0 g/dL Normal 32.0-35.0 [facility] Comment on above: Performed By: #### 5 0103 #### [facility] [address] [place] [address], [facility] MCV (RBC) [Entitic vol] 97.4 fL Normal 82.0-98.0 [facility] Comment on above: Performed By: #### 5 0103 #### [facility] [address] [place] [address], [facility] Monocytes (Bld) [#/Vol] 0.4 10*3/uL Normal 0.1-1.0 [facility] Comment on above: Performed By: #### 5 0103 #### [facility] [address] [place] [id number], [facility] MONOS 8.4 % Normal 5.0-12.0 [facility] Comment on above: Performed By: #### 5 0103 #### [facility] [address] [place] [id number], [facility] Neutrophils/100 WBC (Bld) 63.4 % Normal 40.0-72.0 [facility] Comment on above: Performed By: #### 5 3 #### [facility] [address] [place] [id number], [facility] Nucleated RBC/100 WBC (Bld) [Ratio] 0 % Normal 0-0 [facility] Comment on above: Performed By: #### 5 0103 #### [facility] [address] PLAT CNT 116 10*3/uL Low 150-[address] [facility] Comment on above: Performed By: #### 5 0103 #### [facility] [address] RBC (Bld) [#/Vol] 3.44 10*6/uL Low 4.20-5.70 [facility] Comment on above: Performed By: #### 5 0103 #### [facility] [address] WBC (Bld) [#/Vol] 4.43 10*3/uL Normal 4.00-10.60 [facility] Comment on above: Performed By: #### 5 0103 #### [facility] [address] Cardiovascular Lab Reporton 10-13-2021 Cardiovascular Lab Report [facility]: [id number] Physician: Royal Gandara MD Department of Service Date: 10/13/2021 Medicine Birthdate: 1935 Division of Room #: [facility] Cardiology Adult Cardiovascular Services [place] [address] Cardiovascular Laboratory Report PACEMAKER IMPLANT PROCEDURE NOTE DATE OF PROCEDURE: 10/13/2021 PERFORMING PHYSICIAN: Dr. Royal Gandara CONSENT: Patient LOCATION: EP Lab PROCEDURE PERFORMED: 1. Implantation of pacemaker ([employer]) 2. Ultrasound guided venous access INDICATIONS: [...] previously recommended a pacemaker, however, presented to [facility] ED with a ventricular rate in the 30s. He was subsequently transferred over to [facility] ED for a pacemaker placement. [...] using modified seldinger technique using a 5 Polish micro-puncture needle on one occasion and 0.35 wire was placed. Local infiltration of 1% Lidocaine was performed, and an incision was created in the left upper chest. Dissection was then performed using cautery down to the fascial plane above the muscle. A small pocket was created for the device. 6 Polish Safesheaths were placed over the wire. An active fixation [employer] pacing lead was then delivered through the 6Fsheath to the right ventricle. After confirmation of lead position on orthogonal views (HANSEN and TURKMEN) to confirm septal position, the screw was [...] immediate procedural complications were noted. Device info: [employer] Accolade MRI EL Model# L331 Serial# [id number] lead: Model# INGEVITY [id number] (59cms) Serial# [id number] Sensin.4mV Threshold: 0.6V@0.4ms Impedance: 598 Ohms POST [...] Gandara MD Date Trans: 10/13/2021 10:46 A/oscar DN_[id number] cc: Jason Silva M.D. [address] [place] [id number] Normal [facility] FRESH FROZEN PLASMA 1 UNITon 10-13-2021 PRODUCT CODE 1 [id number] Normal [facility] Comment on above: Order Comment: INR: 2.88 ,PTT: 36.7 at the time of order ;Indication: Other pacemaker placement Performed By: #### 8 7001 #### [facility] [address] PRODUCT STATUS 1 RE Normal [facility] Comment on above: Order Comment: INR: 2.88 ,PTT: 36.7 at the time of order ;Indication: Other pacemaker placement Result Comment: Resu lt changed by IF on 10/19/2021 01:00. The previous value was XM. Performed By: #### 8 7007 #### [facility] [address] [place] [id number], [facility] UNIT ABO 1 O Normal [facility] Comment on above: Order Comment: INR: 2.88 ,PTT: 36.7 at the time of order ;Indication: Other pacemaker placement Performed By: #### 8 [id number] #### [facility] [address] [place] [address], [facility] UNIT ID 1 [id number] Normal [facility] Comment on above: Order Comment: INR: 2.88 ,PTT: 36.7 at the time of order ;Indication: Other pacemaker placement Performed By: #### 8 7001 #### [facility] [address] [place] [address], [facility] UNIT RH 1 Negative Normal [facility] Comment on above: Order Comment: INR: 2.88 ,PTT: 36.7 at the time of order ;Indication: Other pacemaker placement Performed By: #### 8 7001 #### [facility] [address] [place] [id number], [facility] LIVER BATTERYon 10-13-2021 Albumin [Mass/Vol] 4.0 g/dL Normal 3.5-5.7 [facility] Comment on above: Performed By: #### 0 0071, 63946, 65635, 89240 #### [facility] [address] [place] [id number], [facility] ALKALINE PHOSPH 137 IU/L High 34-104 [facility] Comment on above: Performed By: #### 0 0071, 35383, 64313, 03754 #### [facility] [address] [place] [id number], [facility] ALT [Catalytic activity/Vol] 29 U/L Normal 7-52 [facility] Comment on above: Performed By: #### 0 0071, 94777, 19045, 10628 #### [facility] [address] [place] [address], [facility] AST [Catalytic activity/Vol] 22 U/L Normal 13-39 [facility] Comment on above: Performed By: #### 0 0071, 76162, 03343, 17745 #### [facility] [address] [place] [address], [facility] Bilirubin [Mass/Vol] 0.7 mg/dL Normal 0.3-1.0 [facility] Comment on above: Performed By: #### 0 0071, 41787, 71367, 37435 #### [facility] [address] [place] [address], [facility] Bilirubin.direct [Mass/Vol] 0.1 mg/dL Normal 0.0-0.2 [facility] Comment on above: Performed By: #### 0 0071, 81490, 19594, 44561 #### [facility] [address] [place] [address], [facility] Protein [Mass/Vol] 6.3 g/dL Normal 6.0-8.3 [facility] Comment on above: Performed By: #### 0 0071, 17998, 56608, 73442 #### [facility] [address] [place] [id number], [facility] MAGNESIUM BLOODon 10-13-2021 Magnesium [Mass/Vol] 2.0 mg/dL Normal 1.9-2.7 [facility] Comment on above: Performed By: #### 0 0071, 98358, 79209, 59770 #### [facility] [address] [place] [address], [facility] POC SARS COV2 ANTIGEN NEGATI VEon 10-13-2021 POC SARS COV2 ANTIGEN NEG Negative Normal NEGATIVE [facility] Comment on above: Result Comment: Nega [...] antigen from SARS-CoV-2 in direct nasopharyngeal swab (CONTACT CENTER ASSISTANT) specimens from individuals who are suspected of [...] Performed By: #### 3 2044 #### [address] PORTABLE CHEST 1 VIEWon 09-26 PORTABLE CHEST 1 VIEW [facility] Department of Radiology [address] [place] [id number] Patient Name: RY LERNER : 1935 Sex: M Age: Race: White Pt. Location: [facility] Patient Status: E Ordered Date: 10/13/2021 4:40:00 [...] report. Electronically signed: Mark Aguilar. Transcribed by: [email or web address], User Resident: HUMBLE HERNANDEZ Electronically Signed by: MARK AGUILAR @ 10/13/2021 05:55 AM I personally read this/these film(s) with this resident Normal [facility] Comment on above: Order Comment: evalu ate for Infiltrates PROTHROMBIN TIMEon INR Coag (PPP) [Relative time] 2.88 {INR} High 0.91-1.16 [facility] Comment on above: Result Comment: ACCC [...] CHEST 1995;108:231S-246S. Performed By: #### 5 6101, 55751 #### [facility] [address] [place] [address], [facility] PT Coag (PPP) [Time] 30.0 s High 12.3-14.8 [facility] Comment on above: Result Comment: ALL RESULTS MUST BE INTERPRETED WITH RESPECT TO BLOOD DRAWING ARTIFACT OR DILUTION ERROR OF ANTICOAGULANT AT THE TIME OF SAMPLING. Performed By: #### 5 6101, 08764 #### [facility] [address] TROPONIN-Ion 10-13-2021 Troponin I.cardiac [Mass/Vol] 0.05 ng/mL High 0.00-0.04 [facility] Comment on above: Result Comment: REFE RENCE RANGES: 0.00 - 0.04 ng/ml NORMAL 0.05 - 0.50 ng/ml INDETERMINATE > 0.50 ng/ml CONSISTENT WITH AN M.I. Performed By: #### 0 0071, 27531, 11529, 72666 #### [facility] [address] TYPE AND SCREENon 10-13-2021 ABO INTERPRETATION O Normal [facility] Comment on above: Performed By: #### 5 0103 #### [facility] [address] [place] [address], [facility] RH INTERPRETATION Positive Normal [facility] Comment on above: Performed By: #### 5 0103 #### [facility] [address] [place] [address], [facility] Vital Signs Date Time Vital Sign Value Performing Clinician Facility 10-24-2023 15:49-0400 Heart rate 65 /min Christelle Meyeraixa [facility] 10-24-2023 15:49-0400 SaO2% (BldA) [Mass fraction] 99 % Christelle Timmis [facility] 10-24-2023 15:48-0400 Diastolic blood pressure 73 mm[Hg] Christelle Timmis [facility] 10-24-2023 15:48-0400 Mean blood pressure 98 mm[Hg] Christelle Timmis [facility] 10-24-2023 15:48-0400 Systolic blood pressure 148 mm[Hg] Christelle Timmis [facility] 10-24-2023 15:48-0400 Respiratory rate 16 /min Christelle Timmis [facility] 10-24-2023 14:52-0400 Heart rate 61 /min Christelle Timmis [facility] 10-24-2023 14:52-0400 SaO2% (BldA) [Mass fraction] 100 % Christelle Timmis [facility] 10-24-2023 14:51-0400 Diastolic blood pressure 72 mm[Hg] Christelle Timmis [facility] 10-24-2023 14:51-0400 Mean blood pressure 101 mm[Hg] Christelle Timmis [facility] 10-24-2023 14:51-0400 Systolic blood pressure 160 mm[Hg] Christelle Timmis [facility] 10-24-2023 14:42-0400 Body temperature 97.7 [degF] Christelle Timmis [facility] 10-24-2023 14:42-0400 Diastolic blood pressure 60 mm[Hg] Christelle Timmis [facility] 10-24-2023 14:42-0400 Heart rate 60 /min Christelle Timmis [facility] 10-24-2023 14:42-0400 Mean blood pressure 83 mm[Hg] Christelle Timmis [facility] 10-24-2023 14:42-0400 Respiratory rate 15 /min Christelle Timmis [facility] 10-24-2023 14:42-0400 SaO2% (BldA) [Mass fraction] 99 % Christelle Timmis [facility] 10-24-2023 14:42-0400 Systolic blood pressure 129 mm[Hg] Christelle Timmis [facility] 10-24-2023 14:30-0400 Mean blood pressure 77 mm[Hg] Christelle Timmis [facility] 10-24-2023 14:30-0400 Respiratory rate 12 /min Christelle Timmis [facility] 10-24-2023 14:25-0400 Mean blood pressure 84 mm[Hg] Christelle Timmis [facility] 10-24-2023 14:25-0400 Respiratory rate 16 /min Christelle Timmis [facility] 10-24-2023 14:20-0400 FIO2 35 1 Christelle Timmis [facility] 10-24-2023 14:17-0400 Body temperature 97.7 [degF] Christelle Timmis [facility] 10-24-2023 14:15-0400 FIO2 100 1 Christelle Timmis [facility] 10-24-2023 14:10-0400 FIO2 100 1 Christelle Timmis [facility] 10-24-2023 14:10-0400 Respiratory rate 6 /min Christelle Timmis [facility] 10-24-2023 14:05-0400 Respiratory rate 10 /min Christelle Timmis [facility] 10-24-2023 12:46-0400 Blood Pressure Location Christelle Timmis [facility] 10-24-2023 12:46-0400 Mean blood pressure 105 mm[Hg] Christelle Timmis [facility] 10-24-2023 12:43-0400 Body temperature 97.88 [degF] Christelle Timmis [facility] 10-24-2023 12:41-0400 Blood Pressure Location Christelle Timmis [facility] 10-23-2023 13:49-0400 Body temperature 98.06 [degF] Christelle Timmis [facility] 10-23-2023 13:49-0400 Diastolic blood pressure 57 mm[Hg] Christelle Timmis [facility] 10-23-2023 13:49-0400 Heart rate 60 /min Christelle Timmis [facility] 10-23-2023 13:49-0400 Mean blood pressure 79 mm[Hg] Christelle Timmis [facility] 10-23-2023 13:49-0400 Respiratory rate 17 /min Christelle Timmis [facility] 10-23-2023 13:49-0400 SaO2% (BldA) [Mass fraction] 98 % Christelle Timmis [facility] 10-23-2023 13:49-0400 Systolic blood pressure 122 mm[Hg] Christelle Timmis [facility] 10-23-2023 13:47-0400 Diastolic blood pressure 62 mm[Hg] Christelle Timmis [facility] 10-23-2023 13:47-0400 Systolic blood pressure 107 mm[Hg] Christelle Timmis [facility] 09-30-2023 14:26-0500 Blood Pressure Location Mohamad Mouchli [facility] 09-30-2023 14:26-0500 Body temperature 95.72 [degF] Mohamad Mouchli [facility] 09-30-2023 14:26-0500 Diastolic blood pressure 57 mm[Hg] Mohamad Mouchli [facility] 09-30-2023 14:26-0500 Heart rate 60 /min Mohamad Mouchli [facility] 09-30-2023 14:26-0500 Respiratory rate 16 /min Mohamad Mouchli [facility] 09-30-2023 14:26-0500 Systolic blood pressure 114 mm[Hg] Mohamad Mouchli [facility] 06-02-2022 14:50-0400 Body height 182.88 cm Sonja Aden Other [facility] Other 06-02-2022 14:50-0400 Body mass index (BMI) [Ratio] 29.73 kg/m2 Sonja Aden Other [facility] Other 06-02-2022 14:50-0400 Body temperature 99.6 [degF] Sonja Aden Other [facility] Other 06-02-2022 14:50-0400 Body weight 99.43 kg Sonja Aden Other [facility] Other 06-02-2022 14:50-0400 Diastolic blood pressure 54 mm[Hg] Sonja Aden Other [facility] Other 06-02-2022 14:50-0400 Respiratory rate 18 /min Sonja Aden Other [facility] Other 06-02-2022 14:50-0400 SaO2% (BldA) [Mass fraction] 95 % Sonja Aden Other [facility] Other 06-02-2022 14:50-0400 Systolic blood pressure 118 mm[Hg] Sonja Aden Other [facility] Other Encounters Encounter Date Encounter Type Care Provider Facility Start: 10-30-2023 End: 10-31-2023 ambulatory CHROME TANNING DRUM OPERATOR Sheng Lagos Facility:[facility] Mague morfin Start: 10-30-2023 End: 10-30-2023 ambulatory [facility] Start: 10-24-2023 End: 10-24-2023 ambulatory Christelle H Timmis Facility:[facility] Start: 10-24-2023 End: 10-24-2023 Admission to same day surgery center Christelle Sadlermis [facility] Start: 10-23-2023 End: 10-24-2023 ambulatory Christelle H Timmis Facility:[facility] Start: 10-23-2023 End: 10-23-2023 Patient encounter procedure Christelle Diaz Timmis [facility] Start: 10-23-2023 End: 10-23-2023 ambulatory CHRISTELLE HURST Not Available Start: 10-02-2023 End: 10-03-2023 ambulatory CHROME TANNING DRUM OPERATOR Sheng L Brissa Facility:[facility] Start: 09-30-2023 End: 10-01-2023 ambulatory Mary Jane Garza Facility:[facility] Start: 09-30-2023 End: 09-30-2023 Patient encounter procedure Mary Jane Garza [facility] Start: 09-09-2023 End: 09-10-2023 ambulatory Petros Lee MD Facility: [facility] Start: 09-04-2023 ambulatory CHROME TANNING DRUM OPERATOR Sheng L Brissa Facil ity:[facility] Start: 09-03-2023 End: 09-04-2023 ambulatory CHROME TANNING DRUM OPERATOR Sheng L Brissa Facility:[facility] Start: 08-29-2023 End: 08-29-2023 ambulatory ADDIE A FELTER Not Available Start: 08-29-2023 Bamboo flowsheet Addie A Fel ter INTERFACE ANALYST-INFANTRY ASSAULTMAN Work Phone: [facility] Start: 08-29-2023 Bamboo flowsheet Addie A Fel ter INTERFACE ANALYST-INFANTRY ASSAULTMAN Work Phone: [facility] Start: 08-29-2023 End: 08-29-2023 Office outpatient new 30 minutes Addie A Felter INTERFACE ANALYST-INFANTRY ASSAULTMAN Work Phone: [facility] Comment on above: Other atopic dermati tis (Primary Dx); Seborrheic keratosis Start: 08-28-2023 End: 08-29-2023 ambulatory John Nieves Facility:[facility] Start: 07-03-2023 End: 07-04-2023 ambulatory CHROME TANNING DRUM OPERATOR Sheng L Brissa Facility:[facility] Start: 07-02-2023 End: 07-02-2023 ambulatory [facility] Start: 05-15-2023 End: 05-15-2023 ambulatory [facility] Start: 02-08-2023 End: 02-08-2023 ambulatory [facility] Start: 01-22-2023 End: 01-23-2023 ambulatory CHROME TANNING DRUM OPERATOR Sheng L Brissa Facility:[facility] Start: 01-22-2023 End: 01-22-2023 Lab Drop off Sheng L Brissa [facility] Start: 12-31-2022 End: 12-31-2022 ambulatory Ward Lyn Juan Facility:[facility] Start: 12-25-2022 End: 12-26-[address] JASON SILVA . Facility: Start: 12-21-2022 End: 12-22-2022 ambulatory CHROME TANNING DRUM OPERATOR Sheng L Brissa [facility] Start: 12-17-2022 End: 01-16-2023 ambulatory CHROME TANNING DRUM OPERATOR Sheng L Brissa Facility:CD:[id number] Start: 12-12-2022 End: 12-14-2022 Evaluation and management of inpatient DR JASON SILVA . Facility: Start: 12-11-2022 End: 12-12-2022 ambulatory CHROME TANNING DRUM OPERATOR Sheng L Brissa Facility:[facility] Start: 12-11-2022 End: 12-11-2022 Lab Drop off Sheng L Brissa [facility] Start: 12-10-2022 End: 12-10-2022 ambulatory Ward Lyn [place] Facility:[facility] Start: 11-27-2022 End: 11-27-2022 [facility] Start: 11-26-2022 End: 12-26-2022 ambulatory SHAIKH Joe JUNIOR Facility: Start: 11-06-2022 End: 11-07-[address] JASON SILVA . Facility:[facility] Start: 11-06-2022 End: 11-06-2022 ambulatory SOLIS VALLES [facility] Start: 10-29-2022 End: 11-23-2022 ambulatory HAYWARD [...] End: 07-25-2022 ambulatory ROYAL GANDARA Facility:[facility] Start: 06-28-2022 End: 07-29-2022 ambulatory HAYWARD H FAWWAD Facility:[facility] Start: 06-02-2022 End: 06-02-2022 ambulatory Sonja Aden Other [facility] Other Start: 06-02-2022 Office outpatient ne w [...] Facility:[facility] Start: 02-15-2022 End: 02-16-2022 ambulatory KELLY MORALES Facility:[facility] Start: 01-26-2022 End: 02-23-2022 ambulatory HAYWARD H FAWWAD Facility:[facility] Start: 10-13-2021 End: 10-13-2021 ambulatory UNKNOWN PROVIDER Facility:[facility] Start: 10-13-2021 End: 10-13-2021 Emergency department patient visit PHYSICIAN UNKNOWN Facility:[facility] Procedures Date Procedure Procedure Detail Performing Clinician Start: 10-30-2023 Follow-up visit Follow-up KORINA ZAVALA Start: 10-24-2023 Nasal cautery Christelle Ti mmis Start: 12-14-2022 Excision of Stomach, Via Natural [...] above: Performed By: #### B MP #### [facility] [address] [place] [address] [address] Rashmi Nolan Start: 10-13-2021 Antibody screen PHYSICI AN UNKNOWN Comment on above: Performed By: #### 5 0103 #### [facility] [address] Start: 09-26-2021 Cardiac pacemaker, d evice (physical object) Sheng Lagos Start: 02-26-2011 Colonoscopy Sheng Molinaa b Start: 07-29-1995 TURP syndrome (disorder) Sheng Brissa Start: 07-29-1993 Herniated structure (morphologic abnormality) Sheng Lagos Tonsillectomy and adenoidectomy Sheng Brissa Plan of Treatment Date Care Activity Detail Author Start: 08-29-2023 End: 08-29-2023 Patient encounter procedure 08/29/2023 1:00 PM EST Office Visit [facility] [address] [place] [id number] Addie Huston, INTERFACE ANALYST-INFANTRY ASSAULTMAN [address] [place] [address] Arrived [facility] Comment on above: Arrived Immunizations Immunization Date Immunization Notes Care Provider Fa cility 08-02-2023 zoster vaccine recombinant Mohamad Mouchli [facility] 07-03-2023 influenza virus vaccine, unspecified formulation Mohamad Mouchli [facility] 07-03-2023 pneumococcal 20-aurelio nt conjugate vaccine Mohamad Mouchli [facility] 05-02-2022 influenza virus vaccine, unspecified formulation Sheng Brissa [facility] 05-02-2022 Seasonal trivalent influenza vaccine, adjuvanted, preservative free Addie Huston INTERFACE ANALYST-INFANTRY ASSAULTMAN Work Phone: [facility] 04-28-2021 SARS-CoV-2 (COVID-19 ) mRNA-1273 vaccine Mohamad Mouchli [facility] 09-17-2020 SARS-CoV-2 (COVID-19 ) mRNA BNT-162b2 vax Sheng Brissa [facility] Comment on above: Result Comment: 2022: [id number] 08-27-2020 SARS-CoV-2 (COVID-19 ) mRNA BNT-162b2 vax Sheng Brissa [facility] Comment on above: Result Comment: 2022: [id number] 06-13-2020 influenza virus vaccine, unspecified formulation Sheng Brissa [facility] 06-01-2019 influenza virus vaccine, unspecified formulation Sheng Brissa [facility] 04-14-2018 influenza virus vaccine, unspecified formulation Sheng Brissa [facility] 04-22-2017 influenza virus vaccine, unspecified formulation Sheng Brissa [facility] 05-01-2016 influenza virus vaccine, unspecified formulation Sheng Brissa [facility] 06-02-2015 influenza virus vaccine, unspecified formulation Sheng Brissa [facility] 05-31-2014 influenza virus vaccine, unspecified formulation Sheng Brissa [facility] 06-02-2013 influenza virus vaccine, unspecified formulation Sheng Brissa [facility] 05-29-2005 influenza, whole Sheng Brissa [facility] Payers Date Payer Category Payer Unknown [facility] 1999 Medicare [id number] 1959 Medicare [id number] 1934 Unknown [id number] 2.16.8 40.1.916769.3.579.2.647 1934 Unknown [id number] 2.16. 840.1.804058.3.579.2.732 1934 Unknown [id number] 2.16. 840.1.905161.3.579.2.732 1934 Unknown [id number] 2.16.8 40.1.247027.3.579.2.718 1934 Unknown [id number] 2.16.8 40.1.302015.3.579.2.718 1934 Unknown [id number] 2.16.84 0.1.568483.3.579.2.593 1934 Unknown [id number] 2.16.84 0.1.550786.3.579.2.593 1934 Unknown [id number] 2.16.84 0.1.157864.3.579.2.593 1934 Unknown [id number] 2.16.84 0.1.033896.3.579.2.593 1934 Unknown [id number] 2.16.84 0.1.337943.3.579.2.593 1934 Unknown [id number] 2.16.84 0.1.416535.3.579.2.593 1934 Unknown [id number] 2.16.84 0.1.318107.3.579.2.593 1934 Unknown [id number] 2.16.84 0.1.555934.3.579.2.593 1934 Unknown [id number] 2.16.84 0.1.024505.3.579.2.593 1934 Unknown [id number] 2.16.84 0.1.334905.3.579.2.593 1934 Unknown [id number] 2.16.84 0.1.643198.3.579.2.593 1934 Unknown [id number] 2.16.84 0.1.736430.3.579.2.593 1934 Unknown [id number] 2.16.84 0.1.972117.3.579.2.593 1934 Unknown [id number] 2.16.84 0.1.020795.3.579.2.593 1934 Unknown [id number] 2.16.84 0.1.364379.3.579.2.593 1934 Unknown [id number] 2.16.84 0.1.128835.3.579.2.593 1934 Unknown [id number] 2.16.84 0.1.042169.3.579.2.593 1934 Unknown [id number] 2.16.84 0.1.072410.3.579.2.593 1934 Unknown [id number] 2.16. 840.1.932587.3.579.2.196 1934 Unknown [id number] 2.16.84 0.1.270136.3.579.2.1259 1934 Unknown [id number] 2.16.84 0.1.544023.3.579.2.1259 1934 Unknown [id number] 2.16.8 40.1.312775.3.579.2.727 1934 Unknown [id number] 2.16.8 40.1.976730.3.579.2.727 1934 Unknown [id number] 2.16.8 40.1.949963.3.579.2.727 1934 Unknown [id number] 2.16.8 40.1.454486.3.579.2.727 1934 Unknown [id number] 2.16.8 40.1.911519.3.579.2.727 1934 Unknown [id number] 2.16.8 40.1.266475.3.579.2.727 1934 Unknown [id number] 2.16.8 40.1.297295.3.579.2.727 1934 Unknown [id number] 2.16.8 40.1.540156.3.579.2.727 1934 Unknown [id number] 2.16.8 40.1.927902.3.579.2.727 1934 Unknown [id number] 2.16.8 40.1.995316.3.579.2.727 1935 Unknown [id number] 2.16.8 40.1.993449.3.579.2.727 1934 Unknown [id number] 2.16.8 40.1.835546.3.579.2.727 1934 Unknown [id number] 2.16.8 40.1.708003.3.579.2.727 1934 Unknown [id number] 2.16.8 40.1.799382.3.579.2.727 Social History Date Type Detail Facility Unknown if ever smoked [facility] Other Start: 02-05-2023 End: 08-29-2023 Sex Assigned At [facility] Start: 12-11-2022 End: 12-13-2022 Tobacco smoking status Never smoked tobacco (finding) [facility] Tobacco smoking status Never [facility] Comment on above: Quit in 2002 Start: 01-22-2023 End: 10-02-2023 Tobacco smoking status Ex-smoker (finding) [facility] Comment on above: Quit in 2002 Start: 12-13-2022 Tobacco use and exposure Smokeless tobacco non-user [facility] Start: 02-05-2023 End: 08-29-2023 Alcohol intake Current drinker of alcohol (finding) [facility] Start: 02-05-2023 End: 08-29-2023 History of Social function [facility] Start: 1935 Sex Assigned At Not on file [facility] Functional Status Date Assessment Result Facility 10-23-2023 Functional Status No [facility] 09-30-2023 Functional Status N/A [facility] Clinical Notes 10-13-2021 to 10-30-2023 Jeet Huston APRN-REI - 08/29/2023 1:00 PM EST Note Date & Type Note Facility 10-30-2023 Note [place] [facility] Reason for visit: Afib. S/p PPM 10/30/2023 Since last seen he was in the ER on 10/18/23 for a nose bleed. His INR was elevated at 3.26 during this time. He had a rhino rocket placed along with packing as there was issues with controlling the bleeding. He then ultimately saw ENT and had an urgent cauterization in his nose. He has been feeling fatigued since issues with the nose bleed. He has some SOB with exertion. 05/15/23: Patient here for 3-month follow-up We previously restarted warfarin after having GI ulcer concerns. He has been tolerating warfarin well without any complaints of bleeding, tarry or black or maroon stools or vomiting blood Device check 11/27/22 normal device function, stable thresholds. Underlying rhythm slow VR AF. 02/08/23 HPI: Ry Lerner is a 88 y.o. 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 Device check performed on 06/12/2022 shows thresholds to be good. he is in persistent A. Fib and underwent a single-chamber pacemaker. with [employer] on 10/13/2021 and paced 65% Echocardiogram [...] stress test about 12 years ago in [place], and was in hospital with noted a fib currently on coumadin anticoagulation. Echocardiogram performed on 11/30/2020 at [facility] shows an ejection fraction of 55% with [...] Determinants of Health Tobacco Use: Medium Risk (10/30/2023) Patient History Smoking Tobacco Use: Former Smokeless Tobacco Use: Never Passive Exposure: Past Alcohol Use: Not on file Financial Resource Strain: Not on file Food Insecurity: Not on file Transportation Needs: Not on file Physical Activity: Not on file Stress: Not on file Social Connections: Not on file Intimate Partner Violence: Unknown (09/19/2023) [place] Safety [facility] Environment Fear of Current or Ex-Partner: Not on file Emotionally Abused: Not on file Physical (more content not included)... [facility] 10-24-2023 Hospital Discharge instructions Patient Education 10/24/2023 14:41:31 [facility](CUSTOM) [place], [place] DISCHARGE INSTRUCTIONS: NASAL SURGERY DO NOT BLOW YOUR NOSE: You may sniff back ONLY. If your nose begins to bleed, do not become alarmed. Sit down, put your feet up and apply ice to the back of your neck. Use 2 sprays of the nasal decongestant. If the bleeding is very brisk, or does not stop in 5-10 minutes, either call the office or report to the nearest Emergency Department. ACTIVITY: Maintain a low level of activity. You may fatigue easily. Rest frequently and avoid exertion. You may take short walks and drive short distances if you are not taking medication that makes you drowsy. Do not attain any head-down positions for one week. Do not lift or strain for one week. Sleep with head elevated on 2 pillows for one week. DIET: You may resume your normal diet, but a soft diet is best tolerated. DRESSING: Wear a nasal drip pad for the first 2 to 3 days following the surgery. Change the nasal drip pad as needed. Once the drainage slows down wear the pad if needed. MEDICATIONS: Use your medications as prescribed. Antibiotic ointment to the right nose 2 times daily for 2 weeks POST-OPERATIVE APPOINTMENT: Keep your post-operative appointment. If you do not have one, call the office to make an appointment to be seen in 7-10 days. Call the office with any questions or problems: [phone] ([facility]) The above information has been explained, I have had the opportunity to have my questions answered, and I have received a copy. Responsible Democrat SignatureSurgeon s Signature Nurse s Signature Reviewed: 09/0510/24/2023 14:37:39 Post Op Patient Instructions - FT (CUSTOM) Follow Up Care 10/23/2023 10:02:33 With:Christelle Hurst Address:Unknown When: Unknown Comments:As needed [facility] 10-23-2023 Note [id number] [facility] 09-30-2023 Evaluation + Plan note Future Scheduled TestsAlkaline Phosphatase Isoenzymes 09/30/23. 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 Device check performed on 06/12/2022 shows thresholds to be good. he is in persistent A. Fib and underwent a single-chamber pacemaker. with [employer] on 10/13/2021 and paced 65% Echocardiogram [...] stress test about 12 years ago in [place], and was in hospital with noted a fib currently on coumadin anticoagulation. Echocardiogram performed on 11/30/2020 at [facility] shows an ejection fraction of 55% with [...] mg DR lindsay (more content not included)... [facility] 05-15-2023 Note Patient here for 3 [...] All other systems reviewed and are negative. [facility] 02-18-2023 Note Stable -ct medications [facility] 02-18-2023 Note [id number]: at [facility] 3 for age and htn -restart warfarin, will follow coumadin clinic here at [facility] -is to report any concerns for bleeding -follow up in 2 months to discuss how he is doing -patient prefers to not consider watchmen if he does not have to [facility] 02-08-2023 Note Patient here for [facility] for GI bleed. He was discharged on 12/14 and coumadin was put on hold. Denies chest pain, SOB, and palpitations. Lost his recently. Review of Systems Musculoskeletal: Positive for arthritis, joint pain and muscle cramps. Neurological: Positive for numbness. All other systems reviewed and are negative. [facility] 02-08-2023 Note [place] [facility] Consul t Note Reason for visit: Afib. S/p PPM HPI: Ry Lerner is a 87 y.o. 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 Device check performed on 06/12/2022 shows thresholds to be good. he is in persistent A. Fib and underwent a single-chamber pacemaker. with [employer] on 10/13/2021 and paced 65% Echocardiogram [...] stress test about 12 years ago in [place], and was in hospital with noted a fib currently on coumadin anticoagulation. Echocardiogram performed on 11/30/2020 at [facility] shows an ejection fraction of 55% with [...] No current facility (more content not included)... [facility] 01-01-2023 Note [id number] Note [id number]#[facility] SURGERY Clinical Discharge Summary PERSON INFORMATION Name RY LERNER Age 87 Years 1935 Sex MALE Language Mexican PCP Ezequiel CHAMBERS, John Rodríguez Marital Status Med Service Ambulatory Surgery Acct# Arrival 12/31/2022 08:09:06 Visit Reason SURGERY - RIGHT CARPAL TUNNEL RELEASE [facility] LOS 039 21:33 Address: [address] [place], [place] [id number] Comment: PROVIDER INFORMATION VITALS INFORMATION Vital Sign [...] 1 cap(s) Oral every day. Lindsey's wort ([place]'s wort oral tablet) 1 tab(s) Oral 2 [...] release capsule) 1 cap(s) Oral every day. [place]'s wort ([place]'s wort oral tablet) 1 tab(s) Oral 2 [...] release capsule) 1 cap(s) Oral every day. [place]'s wort ([place]'s wort oral tablet) 1 tab(s) Oral 2 [...] Follow up: With: Address: When: MARJ PEREZ [address] [place] [address], [address] [place] [id number] [facility] (1) 01/09/2023 11:00 AM DIAGNOSIS Carpal tunnel syndrome, right Comment: WINNIE GOTTI [facility] 12-31-2022 Note Procedure: Decompres mary of median [...] on: 12/31/2022 09:43 EDT] Ward Martinez DO [facility] 12-25-2022 Note [id number]:127 [facility] 12-12-2022 Note [id number]22 Note procedure: Decompres mary of [...] on: 12/10/2022 15:46 EDT] Ward Martinez DO [facility] 12-10-2022 Note [facility] SURGERY Clinical Discharge Summary PERSON INFORMATION Name RY LERNER Age 87 Years 1935 Sex MALE Language Mexican PCP Ezequiel CHAMBERS, John Rodríguez Marital Status [facility] Service Ambulatory Surgery Acct# Arrival 12/10/2022 13:13:28 Visit Reason SURGERY - LEFT CARPAL TUNNEL RELEASE [facility] 019 02:57 Address: [address] [place] [address] Comment: PROVIDER INFORMATION VITALS INFORMATION Vital Sign [...] Follow up: With: Address: When: Ward Martinez [address] [place] [address], [address] [place] [id number] [facility] (1) 12/18/2022 1:30 PM Type Location Start [facility] ([facility] Main OR 12/31/2022 7:30 AM 12/31/2022 8:00 AM Confirmed DIAGNOSIS Carpal tunnel syndrome of left wrist Comment: PHYS DOC NOTES [facility] 11-06-2022 Note Cardiology Clinic No te Subjective Ry Lerner is a 87 y.o. 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 Echocardiogram performed on 11/30/2020 at [facility] shows an ejection fraction of 55% with [...] falls and he has been in the snf lately. Device check performed on 06/12/2022 shows thresholds to be good. he is in persistent A. Fib and underwent a single-chamber pacemaker. with [employer] on 10/13/2021 and paced 65% Echocardiogram [...] LV systolic funct (more content not included)... [facility] 11-06-2022 Note Patient here for 4 [...] All other systems reviewed and are negative. [facility] 06-02-2022 Evaluation note Encounter Date Diagnosis [...] treatment plan. Patient left in stable condition [facility] Other [id number] History general Narrative - Reported* Type Description Date Medical History HYPERTENSION Medical History STROKE Medical History HEAD INJURY Surgical History PACEMAKER 10/13/2021 Surgical History HERNIA X 2 Surgical History TONSILECTOMY Hospitalization History SEE ABOVE [facility] Other Evaluation + Plan note No data available for this section [facility] Future Appointments Appointment Date:08/27/2023 09:30:00 AM Scheduled Provider: Location:[facility] Appointment Type: Medicare Wellness Subsequent [facility] Future Appointments Appointment Date:10/02/2023 10:00:00 AM Scheduled Provider:Sheng Simms [facility] Appointment Type: Open Future Scheduled Tests Laboratory* Alkaline Phosphatase Isoenzymes 3/4/24 * H. pylori Stool Ag 09/30/23 * Ferritin 24 * Iron Level 24 [facility] Evaluation + Plan note Future Appointments Appointment Date:10/24/2023 02:30:00 PM Scheduled Provider: Location:[facility] Appointment Type:Surgery FT Future Scheduled Tests Laboratory* Alkaline Phosphatase Isoenzymes 09/30/23 * H. pylori Stool Ag 09/30/23 * Ferritin 09/30/23 * Iron Level 09/30/23 [facility] Diagnosis Other atopic dermatitis- Primary Seborrheic keratosis [facility] No data available for this section [facility] No data available for this section [facility] Summary Purpose Family History No Family History Records FoundNo Family History Records FoundNo Family History Records FoundNo Family History Records FoundNo Family History Records Found No data available for this section No data available for this section No Family History Records Found No data available for this section No Family History Records FoundNo Family History [...] and content) DATE CREATED AUTHOR 01/26/2022 [facility] DATE CREATED AUTHOR AUTHOR'S ORGANIZ ATION 04/25/2022 [facility] DATE CREATED AUTHOR AUTHOR'S ORGANIZ ATION 01/06/2023 [facility] DATE CREATED AUTHOR AUTHOR'S ORGANIZ ATION 01/06/2023 [facility] DATE CREATED AUTHOR AUTHOR'S ORGANIZ ATION 09/15/2023 [facility] DATE CREATED AUTHOR AUTHOR'S ORGANIZ ATION 10/24/2023 [facility] DATE CREATED AUTHOR AUTHOR'S ORGANIZ ATION 10/31/2023 Sonny Hernandez [facility] DATE CREATED AUTHOR AUTHOR'S ORGANIZ ATION 11/05/2023 [facility] REASON FOR VISIT (unrecogniz ed section and content) Reason Comments Rash Specialty Diagnoses / Procedures Referred By Contac t Referred To Contact Dermatology Diagnoses eczema / skin changes texture changes Sheng Lagos MD [address] [place] [address] Rebecca Conley MD [address] [address] Referral ID Status Reason Start Date Expiration Date Visits Re quested Visits Authorized [id number] Closed 07/05/2023 01/01/2024 1 1 Patient Care team informatio n (unrecognized section and content) Informatics Spec Relationship Specialty Start Date End Date Jason Silva MD [address] [place] [id number] PCP - General Family Medicine 12/10/22 Informatics Spec Relationship Specialty Start Date End Date Jason Silva MD [address] [place] [id number] PCP - General Family Medicine 12/10/22 FOR [...] BE BASED ON THE PRIMARY CLINICAL RECORDS. [employer] provides no warranty or guarantee of the accuracy or completeness of information in this document.
== END 2023-11-14 08:12 | disposition home or self-care (01) ==
LOC: CT 08:11
PROVIDERS: PCP Nurse Practitioner; Visit Provider Nurse Practitioner
DX: K76.89 Other specified diseases of liver (principal); K86.2 Cyst of pancreas; K57.30 Diverticulosis of large intestine without perforation or abscess without bleeding
CPT/HCPCS: 74178; Q9966

== ENCOUNTER 2023-11-22 09:33 | Outpatient (OUT) | payer MEDICARE, SELFPAY ==
--- NOTE | 2023-11-22 09:48 | CT_ITS ---
The [address] [address] Patient Name: THIERRY LERNER MRN: [id number] date: 1935 Sex: M Assigned Patient Location: CT Current Patient Location: CT Accession/Order Number: [id number] Exam Date: 11/22/2023 09:55 Report Date: 11/22/2023 15:46 At the request of: SHENG LAGOS Procedure: CT chest wo con EXAMINATION: CT chest wo con HISTORY: abnormal ct chest results 1 nodule right lung COMPARISON: 08/30/2023 TECHNIQUE: Multi-planar CT images were created with IV contrast. Axial, Coronal, and Sagittal images. Dose reduction techniques were achieved by using automated exposure control and/or adjustment of mA and/or kV according to patient size and/or use of iterative reconstruction technique. FINDINGS: LUNGS: Stable scattered subcentimeter pulmonary nodules the largest measuring 6 mm right middle lobe, axial image 65 cm stable from the prior exam given differences in slice selection. No new significant pulmonary nodule or mass PLEURA: No mass, effusion, or pneumothorax. VASCULATURE: No abnormality. SHAHEED: No mass or adenopathy. MEDIASTINUM: No mass or adenopathy. CARDIAC: Stable prominent heart size. No pericardial effusion. Mild coronary atherosclerosis. Pacemaker wires AORTA: No aortic aneurysm. Moderate atherosclerosis CHEST WALL: No mass or axillary adenopathy. BONES: No bone lesion or fracture. LIMITED ABDOMEN: No suspicious findings. Limited images of the upper abdomen. OTHER: Negative. CT/CT chest wo con IMPRESSION: Stable scattered subcentimeter pulmonary nodules largest measuring 6 mm in the right middle lobe Electronically authenticated by: STEPHANIE GTZ Date: 11/22/2023 15:46
== END 2023-11-22 09:34 | disposition home or self-care (01) ==
LOC: CT 09:33
PROVIDERS: PCP Nurse Practitioner; Visit Provider Nurse Practitioner
DX: R91.1 Solitary pulmonary nodule (principal); R91.8 Other nonspecific abnormal finding of lung field
CPT/HCPCS: 71250

== ENCOUNTER 2023-11-27 00:30 | Outpatient (RCR) | payer MEDICARE, SELFPAY | END 2023-12-27 11:31 | disposition home or self-care (01) | LOC: MM 00:30 | PROVIDERS: PCP Nurse Practitioner; Visit Provider Internal Medicine | DX: Z51.81 Encounter for therapeutic drug level monitoring (principal); Z79.01 Long term (current) use of anticoagulants; I48.91 Unspecified atrial fibrillation ==

== ENCOUNTER 2023-12-30 03:10 | Outpatient (RCR) | payer MEDICARE, SELFPAY | END 2024-01-24 10:07 | disposition home or self-care (01) | LOC: MM 03:10 | PROVIDERS: PCP Nurse Practitioner; Visit Provider Internal Medicine | DX: Z51.81 Encounter for therapeutic drug level monitoring (principal); Z79.01 Long term (current) use of anticoagulants; I48.91 Unspecified atrial fibrillation ==

== ENCOUNTER 2024-01-20 09:16 | Outpatient (OUT) | payer MEDICARE, SELFPAY ==
[2024-01-20 09:45] LABS: Hematocrit 28.4 % (42.0-54.0); Hemoglobin 8.9 g/dL (14.0-18.0); Mean Corpuscular HGB Conc 31.3 g/dL (29.9-35.2); Mean Corpuscular Hemoglobin 29.7 pg (25.9-34.0); Mean Corpuscular Volume 94.7 fL (80.0-94.0); Mean Platelet Volume 10.2 fL (9.5-13.5); Platelet Count 152 10^3/uL (150-450); Red Cell Distribution Width 14.5 % (11.0-15.0); White Blood Count 3.4 10^3/uL (4.0-11.0)
[2024-01-20 10:33] LABS: BUN Creatinine Ratio 23.7; Calcium 10.4 mg/dL (8.5-10.1); Chloride 107 mmol/L (98-107); Estimated GFR (African America 35 (>=60); Estimated GFR (Non-African Ame 29 (>=60); Glucose 103 mg/dL (74-106); Sodium 140 mmol/L (136-145)
[2024-01-20 10:47] LABS: Band Neutrophils Absolute 0.1 10^3/uL (0.0-0.3); Lymphocytes Absolute Manual 0.78 10^3/uL (1.20-3.80); Monocytes Absolute Manual 0.03 10^3/uL (0.30-0.80); Segmented Neut Absolute Manual 2.31 10^3/uL (1.4-6.5)
== END 2024-01-20 09:17 | disposition home or self-care (01) ==
LOC: LAB 09:18
PROVIDERS: PCP Nurse Practitioner; Visit Provider Nurse Practitioner Family
DX: I48.21 Permanent atrial fibrillation (principal)
CPT/HCPCS: 36415; 80048; 85007; 85027

== ENCOUNTER 2024-01-27 00:19 | Outpatient (RCR) | payer MEDICARE, SELFPAY | END 2024-02-26 23:59 | disposition home or self-care (01) | LOC: MM 00:19 | PROVIDERS: PCP Nurse Practitioner; Visit Provider Internal Medicine | DX: Z51.81 Encounter for therapeutic drug level monitoring (principal); Z79.01 Long term (current) use of anticoagulants; I48.91 Unspecified atrial fibrillation ==

== ENCOUNTER 2024-01-29 09:40 | Outpatient (OUT) | payer MEDICARE, SELFPAY ==
--- OUTSIDE RECORDS SUMMARY | 2024-01-29 10:01 | XMS_ITS | CCD ---
Author Organization [facility] CliniSyvt Care Team Providers Care Computer Engineer Name Role Phone UNKNOWN, PHYSICIAN Referring Unavailable JASON SILVA Primary Care Unavailable HERCHER, DEJON Attending Unavailable HERCHER, DEJON Admitting Unavailable PROVIDER, UNKNOWN Attending Unavailable PROVIDER, UNKNOWN Admitting Unavailable PROVIDER, UNKNOWN Attending Unavailable PROVIDER, UNKNOWN Admitting Unavailable Sonja Aden Unavailable Sheng Lagos Primary Care Physician Ward Martinez Admitting Unavail able Ward Martinez Attending Unavail able John Nieves Primary Care Unavailable JuanWard leal Attending Unavail able John Nieves Primary Care Unavailable Ward Martinez Admitting Unavail able SILVA ., DR JASON Devlin Consulting Unavailable SILVA ., DR JASON Devlin Attending Unavailable SILVA ., DR JASON Devlin Admitting Unavailable SILVA ., DR JASON Devlin Primary Care Unavailable SHAIKH Joe JUNIOR Attending Unavailable SILVA ., DR JASON Devlin Primary Care Unavailable SHAIKH JUNIOR H Admitting Unavailable SHAIKH Joe JUNIOR Admitting Unavailable SILVA ., DR JASON Devlin Primary Care Unavailable SHAIKH Joe JUNIOR Attending Unavailable KELLY MORALES Consulting Unavailable KELLY MORALES Attending Unavailable SILVA ., DR JASON Devlin Primary Care Unavailable KELLY MORALES Admitting Unavailable SILVA ., DR JASON Devlin Primary Care Unavailable MISC, DR DEUTSCH Consulting Unavailable MISC, DR DEUTSCH Attending Unavailable MISC, DR DEUTSCH Admitting Unavailable SILVA ., DR JASON Devlin Primary Care Unavailable NADERER, DR HARVEY Mcgrath Consulting Unavailable CHEPE, DR HARVEY Mcgrath Attending Unavailable CHEPE, DR HARVEY Mcgrath Admitting Unavailable STEPHANIE LOVE Procedure Practitioner Unavailab le MARKER ., DR GODDARD Consulting Unavailable CHEPE, DR HARVEY Mcgrath Procedure Practitioner Unavai carolinale TOSTEPHANIE Consulting Unavailable KLIPPER, STEPHANIE Consulting Unavailable AQUINO, MCKAYLA Consulting Unavailable DAR II, KITTY Consulting Unavailable TAMLYN ., SAEID Consulting Unavailable MCNEILL, JAMIE Consulting Unavailable SILVA ., DR JASON Devlin [...] Unavailable Silva Jason CHAMBERS Primary Care Provider Rosa CHAMBERS, Petros Steven Attending Unavailable ADDIE HUSTON Attending Unavailable SHENG LAGOS Referring Unavailable TIMCHRISTELLE MICHELLE Attending Unavailable GAIL WATKINS Referring Unavailable MOUKARBEL, KELLY Admitting Unavailable MOUKARBEL, KELLY Attending Unavailable MOUKARBEL, KELLY Referring Unavailable MOUKARBEL, KELLY Referring Unavailable NICHOLROYAL Referring Unavailable BARAZICHARISSE Attending Unavailable CHARISSE GAY Attending Unavailable MOUKARBEL, KELLY Referring Unavailable NICHOL, ROYAL Referring Unavailable LUCAS, KORINA Referring Unavailable LUCAS, KORINA Attending Unavailable MOUKARBEL, KELLY Attending Unavailable Timmis, Christelle H Admitting Unavailable Timmis, Christelle H Attending Unavailable Timmis, Christelle H Referring Unavailable MouchliMary Jane Attending Unavailable Brissa, Sheng L Referring Unavailable Brissa, Sheng L Attending Unavailable Brissa, Sheng L Attending Unavailable RossJohn Attending Unavailable Brissa, Sheng L Attending Unavailable Brissa, Sheng L Attending Unavailable Brissa, Sheng L Attending Unavailable Brissa, Sheng L Attending Unavailable Timmis, Christelle H Admitting Unavailable Timmis, Christelle H Attending Unavailable Timmis, Christelle H Referring Unavailable Allergies Allergy Classification Reported Allergen(s) Allergy Type Date of Onset Reaction(s) Facility (2 sources) No Known Medication Allergies; Translations: [No Known Medication Allergies] Propensity to adverse reactions to drug (disorder) [facility] Repository Medications Current Medications Medication Drug Class(es) Dates Sig (Normalized) Sig (Original) acetaminophen 325 mg oral tablet (5 sources) Start: 10-23-2023 take 1 tablet by mouth every six hours as needed for pain Tylenol 325 mg Tab 325 mg, Oral, q6hr, PRN as needed for pain, Refills(s) 0 Start Date: 10/23/23 Status: Ordered take 1 capsule by mo [facility] every six hours as needed acetaminophen (Tylenol) [...] Daily, # 90 tab(s), Refills(s) 1, Pharmacy: [facility], 179, cm, 09/03/23 10:34:00 EST, Height/Length [...] Daily, # 90 tab(s), Refills(s) 1, Pharmacy: [facility], 178, cm, 07/03/23 9:26:00 EST, Height/Length [...] Daily, # 180 cap(s), Refills(s) 3, Pharmacy: [facility], 178, cm, 01/22/23 14:05:00 EDT, Height/Length [...] DISEASE STAGE 3B] Onset: 3 Conduction disorders (7 sources) Presence of cardiac pacemaker; Translations: [Cardiac [...] previo us records Fluid and electrolyte disorders (3 sources) Hyperkalemia; Translations: [HYPERKALEMIA] Onset: 3 Episodic Gastritis [...] 3 Chronic Other aftercare (1 source) Other 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 continuous churn (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 therapy; Translations: [OTH STRAINER CLEANER CURRENT DRUG THERAPY] Onset: 3 Episodic Other aftercare (5 sources) Encounter for therapeutic drug level monitoring; Translations: [ENC THERAPEUTC DRUG LEVL MONITORING] Onset: 3 Episodic Other aftercare (1 source) superintendent terminal (current) use of anticoagulants; Translations: [ALF CURRNT USE ANTICOAGULANTS] Onset: 3 Episodic Other and ill-defined cerebrovascular disease (1 source) Cerebrovascular disease, unspecified; Translations: [CEREBROVASCULAR DISEASE UNSPECIFIED] Onset: 3 Chronic Other circulatory disease (3 sources) Personal history of transient ischemic attack (TIA), and cerebral infarction without residual deficits; Translations: [PERS HX TIA AND CI NO RESID DEFICIT] Onset: 2 Episodic Other connective tissue disease (4 sources) Cramp and spasm; Translations: [CRAMP AND SPASM] Onset: 3 Episodic Other diseases of kidney and ureters (3 sources) Renal mass 09-04-2023 Chronic Other gastrointestinal disorders (5 sources) Hemorrhage into peritoneal cavity 10-31-2022 Episodic Comment on above: No details in previo us medical record Other gastrointestinal disorders (1 source) Other fecal abnormalities; Translations: [OTHER FECAL ABNORMALITIES] Onset: 3 Episodic Other gastrointestinal disorders (2 sources) Personal history of other diseases of the digestive system; Translations: [Personal history of other diseases of the digestive system] Onset: 4 Episodic Other liver diseases (1 source) Disease [...] OF PNEUMONIA RECURRENT] Onset: 3 Episodic Other lower respiratory disease (2 sources) Other forms of dyspnea; Translations: [Other forms of dyspnea] Onset: 4 Episodic Other nervous system disorders (3 sources) [...] cuff of shoulder 09-04-2023 Unclassified (2 sources) Permanent atrial fibrillation; Translations: [Permanent atrial fibrillation] Onset: 4 Unclassified (2 sources) Other persistent atrial fibrillation; Translations: [Other persistent atrial fibrillation] Onset: 2 Past or Other Problems Problem Classification Problem Date Documented Date Episodic/Chronic Deficiency and other anemia (1 source) Other megaloblastic anemias, not elsewhere classified; Translations: [OTHER MEGALOBLASTIC ANEMIAS NEC] Onset: 08-24-2022 Episodic Other male genital disorders (4 sources) Disorder of prostate, unspecified; Translations: [DISORDER OF PROSTATE UNSPECIFIED] Onset: 08-22-2022 Episodic Unclassified (1 source) Contact with and (suspected) exposure to covid-19 Z20.822 Viral infection (1 source) COVID-19 Results Test Name Value Interpretation Reference Range Facility 30on 01-22-2024 30 Problem: Pain - Adul t Goal: Verbalizes/displays adequate comfort level or baseline comfort level Outcome: Progressing Problem: Safety - Adult Goal: Free from fall injury Outcome: Progressing Flowsheets (Taken 01/22/2024 0855) Free from fall injury: Assess patient frequently for physical needs Problem: Discharge Planning Goal: Discharge to home or other facility with appropriate resources Outcome: Progressing Problem: Chronic Conditions and Co-morbidities Goal: Patient's chronic conditions and co-morbidity symptoms are monitored and maintained or improved Outcome: Progressing Normal [place] BASIC METABOLIC PANELon 06-2 Anion gap [Moles/Vol] 13 mmol/L Normal 7-20 [facility] Comment on above: Performed By: #### L AB15 #### [facility] ([facility]) [address] [place] [address] Calcium [Mass/Vol] 9.4 mg/dL Normal 8.6-10.3 [facility] Comment on above: Performed By: #### L AB15 #### [facility] ([facility]) [address] [place] [address] Chloride [Moles/Vol] 111 mmol/L High 98-107 [facility] Comment on above: Performed By: #### L AB15 #### [facility] ([facility]) [address] [place] [address] CO2 [Moles/Vol] 19 mmol/L Low 21-31 [facility] Comment on above: Performed By: #### L AB15 #### [facility] ([facility]) [address] [place] [address] Creatinine [Mass/Vol] 1.83 mg/dL High 0.70-1.30 [facility] Comment on above: Performed By: #### L AB15 #### [facility] ([facility]) [address] [place] [address] GLOMERULAR FILTRATION RATE ML/MIN/1.73 SQ M.PREDICTED 34.8 mL/min/1.73m*2 Low >60.0 [facility] Comment on above: Result Comment: The [place]???s estimated glomerular filtration rate (eGFR) will no longer include consideration of race in its calculation. The National Kidney Foundation???s eGFR Task Force developed new recommendations for the estimation of the glomerular filtration rate in the [place] They recommend immediate implementation of the new equation refit without the race variable in all laboratories because the calculation does not include race. In addition to not including race in the calculation and reporting, it included diversity in its development, and has acceptable performance characteristics and potential consequences that do not disproportionately affect any one group of individuals. Performed By: #### L AB15 #### [facility] ([facility]) [address] [place] [address] Glucose [Mass/Vol] 103 mg/dL High 70-100 [facility] Comment on above: Performed By: #### L AB15 #### [facility] ([facility]) [address] [place] [address] Potassium [Moles/Vol] 5.2 mmol/L High 3.5-5.1 [facility] Comment on above: Performed By: #### L AB15 #### [facility] ([facility]) [address] [place] [address] Sodium [Moles/Vol] 138 mmol/L Normal 136-145 [facility] Comment on above: Performed By: #### L AB15 #### [facility] ([facility]) [address] [place] [address] Urea nitrogen [Mass/Vol] 50 mg/dL High 7-25 [place] Comment on above: Performed By: #### L AB15 #### [facility] ([facility]) [address] [place] [address] UREA NITROGEN/CREATININE (MASS RATIO) IN SER/PLAS 27.3 Normal [place] Comment on above: Performed By: #### L AB15 #### [facility] ([facility]) [address] [place] [address] CBCon 01-22-2024 Erythrocyte distribution width (RBC) [Ratio] 15.0 % Normal 11.5-15.0 [place] Comment on above: Performed By: #### L [id number] ####[facility] ([facility])[address] [place] [address] ERYTHROCYTE MEAN CORPUSCULAR HEMOGLOBIN CONCENTRATION (G/DL) BY AUTOMATED 31.9 g/dL Low 32.0-35.0 [place] Comment on above: Performed By: #### L [id number] ####[facility] ([facility])[address] [place] [address] Hematocrit (Bld) [Volume fraction] 26.0 % Low 39.0-55.0 [place] Comment on above: Performed By: #### L [id number] ####[facility] ([facility])[address] [place] [address] Hemoglobin (Bld) [Mass/Vol] 8.3 g/dL Low 13.0-17.0 [place] Comment on above: Performed By: #### L [id number] ####[facility] ([facility])[address] [place] [address] MCH (RBC) [Entitic mass] 30.5 pg Normal 27.0-33.0 [place] Comment on above: Performed By: #### L [id number] ####[facility] ([facility])[address] [place] [address] MCV (RBC) [Entitic vol] 95.6 fL Normal 82.0-98.0 [place] Comment on above: Performed By: #### L [id number] ####[facility] ([facility])[address] [place] [address] PLATELETS (10*3/UL) IN BLOOD AUTOMATED COUNT 120 10*3/uL Low 150-400 [place] Comment on above: Performed By: #### L [id number] ####[facility] ([facility])[address] [place] [address] RBC (Bld) [#/Vol] 2.72 10*6/uL Low 4.20-5.70 [facility] Comment on above: Performed By: #### L [id number] ####[facility] ([facility])[address] [place] [address] WBC (Bld) [#/Vol] 3.09 10*3/uL Low 4.00-10.60 [facility] Comment on above: Performed By: #### L [id number] ####[facility] ([place] [address] DSon 01-22-2024 DS - Attestation signed by Kelly Morales MD at 01/22/2024 3:03 PM I discussed the patient on the same date of service as the Non-Physician Provider Gail Watkins NP. Teaching Physician's Revisions: none Admission Admitted 01/21/2024 for Permanent atrial fibrillation ([facility]* Discharge Diagnosis Permanent atrial fibrillation ([facility]) S/p Left atrial appendage closure (01/21/24) Hyperkalemia Discharge Disposition Home or Self Care () Discharge Medications Your medication list START taking these medications Instructions Last Dose Given Next Dose Due acetaminophen 325 mg tablet Commonly known as: Tylenol Take 2 tablets (650 mg) by mouth every 6 (six) hours if needed for mild pain (1-3 pain score) ((1-3)). aspirin 81 mg EC tablet Start taking on: January 23, 2024 Take 1 tablet (81 mg) by mouth in the morning. Do not start before January 23, 2024. clopidogrel 75 mg tablet Commonly known as: Plavix Start taking on: January 23, 2024 Take 1 tablet (75 mg) by mouth in the morning. Do not start before January 23, 2024. CHANGE how you take these medications Instructions Last Dose Given Next Dose Due amLODIPine 10 mg tablet Commonly known as: Norvasc Start taking on: January 23, 2024 What changed: medication strength See the new instructions. Take 1 tablet (10 mg) by mouth in the morning. Do not start before January 23, 2024. lisinopril 10 mg tablet Start taking on: January 23, 2024 What changed: medication strength See the new instructions. Take 1 tablet (10 mg) by mouth in the morning. Do not start before January 23, 2024. CONTINUE taking these medications Instructions Last Dose Given Next Dose Due furosemide 40 mg tablet Commonly known as: Lasix [employer] 40-10-5-3.3 mg tablet Generic drug: ybunddamd-hcwsmjkn-vo r-hyalur omeprazole [address] capsule Commonly known as: PriLOSEC STOP taking these medications warfarin 5 mg tablet Commonly known as: Coumadin Where to Get Your Medications These medications were sent to [facility], [facility] [address] amLODIPine 10 mg tablet aspirin 81 mg EC tablet clopidogrel 75 mg tablet lisinopril 10 mg tablet Information about where to get these medications is not yet available Ask your nurse or doctor about these medications acetaminophen 325 mg tablet Activity Normal activity as tolerated -No lifting more than 5-10 pounds for 1 week. -No bathing, swimming, soaking until groin site healed (about 5 days). -Dressing change with bandage daily and as needed to right femoral site until healed. Then can leave open to air. Diet Continue on the same type of diet and foods as you were eating before your admission. Drink plenty of water. Allergies Patient has no known allergies. Hospital Course Ry Lerner is a 88 year old male with history of atrial fibrillation, tachybrady syndrome s/p Permanent pacemaker implant, HFpEF, essential hypertension, history of CVA, recurrent epistaxis, history of GI bleeding, presented to [facility] for planned left atrial appendage closure by senior analyst developer, Dr. Morales on 01/21/24. Patient underwent successful procedure with Watchman closure device implanted via right femoral vein access. He stayed in hospital overnight for close observation. A TTE performed on post op day 1 is without any abnormal findings. Vitals and labs are stable/at patient baseline with exception of mild hyperkalemia. Potassium level is 5.2 mmol/L. Patient is asymptomatic, no rhythm changes per review of bus monitor. Discussed with Dr. Morales who recommends to decrease lisinopril dose from 20 mg to 10 mg daily, increase amlodipine from 5 mg to 10 mg daily and recheck BMP within 1 week. Discussed with patient changes to medications, avoid high potassium foods in diet, have repeat BMP in 1 week for monitoring. Right femoral access site is without hematoma, ecchymosis, drainage. Site is soft and without concerns. Discharge instructions including post femoral access care were given to patient both verbally and in written form. He is to take 81 mg aspirin daily with plavix 75 mg daily for 6 months and will then transition to only aspirin 81 daily. No longer on warfarin due to recurrent bleeding. Cardiovascular Lab Report, 01/21/24: PROCEDURES, performed by Dr. Morales : 1. Successful left atrial appendage closure using a 27 mm Watchman FLX device performed under fluoroscopic and transesophageal echocardiography guidance. 2. Transseptal puncture performed under fluoroscopic and transesophageal echocardiography guidance. 3. Left atrial appendage angiogram. 4. Access into the right common femoral venous vein under ultrasound guidance. 5 (more content not included)... Normal [place] [facility] Correspo ndenceon 01-22-2024 Outside [facility] Correspondence [id number] Normal [facility] 30on 01-21-2024 30 The patient is Moderately Stable - Low risk of patient condition declining or worsening The patient's goals for the shift include comfort The clinical goals for the shift include vss, no groin bleeding, pain control Over the shift, the patient did make progress toward the following goals. Problem: Pain - Adult Goal: Verbalizes/displays adequate comfort level or baseline comfort level Outcome: Progressing Flowsheets (Taken 01/21/20242230) Verbalizes/displays adequate comfort level or baseline comfort level: Encourage patient to monitor pain and request assistance Assess pain using appropriate pain scale Implement non-pharmacological measures as appropriate and evaluate response Consider cultural and social influences on pain and pain management Administer analgesics based on type and severity of pain and evaluate response Notify Licensed Independent Practitioner if interventions unsuccessful or patient reports new pain Problem: Safety - Adult Goal: Free from fall injury Outcome: Progressing Flowsheets (Taken 01/21/2024 193) Free from fall injury: Assess patient frequently for physical needs [place] fall precautions as indicated by assessment Identify cognitive and physical deficits and behaviors that affect risk of falls Educate patient/family on patient safety, including physical limitations Instruct patient to call for assistance with activity based on assessment Modify environment to reduce risk of injury Consider OT/PT consult to assist with strengthening/mobilit y Problem: Discharge Planning Goal: Discharge to home or other facility with appropriate resources Outcome: Progressing Flowsheets (Taken 01/21/20242230) Discharge to home or other facility with appropriate resources: Identify barriers to discharge with patient and caregiver Arrange for needed discharge resources and transportation as appropriate Identify discharge learning needs (meds, wound care, etc) Arrange for interpreters to assist at discharge as needed Refer to discharge planning if patient needs post-hospital services based on physician order or complex needs related to functional status, cognitive ability or social support system Problem: Chronic Conditions and Co-morbidities Goal: Patient's chronic conditions and co-morbidity symptoms are monitored and maintained or improved Outcome: Progressing Flowsheets (Taken 01/21/20242230) Care Plan - Patient's Chronic Conditions and Co-Morbidity Symptoms are Monitored and Maintained or Improved: Monitor and assess patient's chronic conditions and comorbid symptoms for stability, deterioration, or improvement Collaborate with multidisciplinary team to address chronic and comorbid conditions and prevent exacerbation or deterioration Update acute care plan with appropriate goals if chronic or comorbid symptoms are exacerbated and prevent overall improvement and discharge Normal [place] 30 Problem: Pain - Adul t Goal: Verbalizes/displays adequate comfort level or baseline comfort level Outcome: Progressing Problem: Safety - Adult Goal: Free from fall injury Outcome: Progressing Problem: Chronic Conditions and Co-morbidities Goal: Patient's chronic conditions and co-morbidity symptoms are monitored and maintained or improved Outcome: Progressing Flowsheets (Taken 01/21/2024 1645) Care Plan - Patient's Chronic Conditions and Co-Morbidity Symptoms are Monitored and Maintained or Improved: Monitor and assess patient's chronic conditions and comorbid symptoms for stability, deterioration, or improvement The patient is Moderately Stable - Low risk of patient condition declining or worsening The patient's goals for the shift include comfort The clinical goals for the shift include vs wnl, no groin bleeding, pain control Over the shift, the patient did make progress toward the following goals. Normal [place] HPon 01-21-2024 HP History Of Present Illness Ry Lerner is a 88 y.o. male presenting for WILLIAM closure. He is 88-year-old man with history of atrial fibrillation, tachybradycardia syndrome and prior single-chamber pacemaker placement for severe symptomatic bradycardia. He has heart failure with preserved ejection fraction and prior echocardiogram showed significantly elevated right-sided pressures. He is maintained on diuretic therapy with furosemide. He is currently maintained on warfarin for anticoagulation therapy. He has been having issues with recurrent epistaxis requiring visits to the emergency room. He had urgent catheterization therapy to the nose in September 2023. He also has a prior history of GI bleeding and a EGD showed healing ulcer. He also has bleeding hemorrhoids. He had discussion with his primary care provider Dr. John Nieves and they decided that exploring the option of left atrial appendage closure is a good idea for him as an alternative to long-term anticoagulation given his bleeding tendency and recurrent bleeding events. Past Medical History He has a past medical history of Atrial fibrillation ([facility]), Hypertension, and Tachycardia-bradycard ia ([facility]). Surgical History He has a past surgical history that includes Hernia repair and Insert / replace / remove pacemaker (10/13/2021). Social History He reports that he has quit smoking. His smoking use included cigarettes. He has been exposed to tobacco smoke. He has never used smokeless tobacco. He reports that he does not drink alcohol and does not use drugs. Allergies Patient has no known allergies. Medications Medications Prior to Admission Medication Sig Dispense Refill Last Dose amLODIPine (Norvasc) 5 mg tablet amlodipine 5 mg tablet TAKE 1 TABLET BY MOUTH EVERY DAY 01/21/2024 furosemide (Lasix) 40 mg tablet furosemide 40 mg tablet TAKE 1 TABLET BY MOUTH EVERY DAY 01/21/2024 lisinopril 20 mg tablet lisinopril 20 mg tablet TAKE 1 TABLET EVERY DAY 01/21/2024 omeprazole (PriLOSEC) [address] capsule Take 40 mg by mouth in the morning. 01/21/2024 warfarin (Coumadin) 5 mg tablet Take 5 mg by mouth in the morning. Past Week Review of Systems Constitutional: Positive for malaise/fatigue. Cardiovascular: Positive for dyspnea on exertion. Hematologic/Lymphatic : Positive for bleeding problem. All other systems reviewed and are negative. Physical Exam Constitutional: Appearance: He is well-developed. He is not ill-appearing. HENT: Head: Normocephalic and atraumatic. Nose: Nose normal. Eyes: General: No scleral icterus. Pupils: Pupils are equal, round, and reactive to light. Neck: Thyroid: No thyromegaly. Vascular: No JVD. Cardiovascular: Rate and Rhythm: Normal rate and regular rhythm. Pulses: Radial pulses are 2+ on the right side and 2+ on the left side. Heart sounds: Normal heart sounds. No murmur heard. No friction rub. No gallop. Pulmonary: Effort: Pulmonary effort is normal. No respiratory distress. Breath sounds: Normal breath sounds. No wheezing or rales. Chest: Chest wall: No tenderness. Abdominal: General: Bowel sounds are normal. There is no distension. Palpations: Abdomen is soft. Tenderness: There is no abdominal tenderness. Musculoskeletal: General: No swelling. Cervical back: Neck supple. Skin: General: Skin is warm and dry. Neurological: General: No focal deficit present. Mental Status: He is alert and oriented to person, place, and time. Psychiatric: Mood and Affect: Mood normal. Behavior: Behavior is cooperative. Judgment: Judgment normal. Last Recorded Vitals Blood pressure 145/65, pulse 62, resp. rate 17, height 1.803 m (5' 11 ), weight 95.3 kg (210 lb), SpO2 100 %. Relevant Results Blood testing 10/21/2023: Hemoglobin 9.4, platelets 142, potassium 5.0, BUN 35, creatinine 1.8, EGFR 36 CARLOS 01/03/2024: Left Ventricle: Global left ventricular systolic function is normal. The EF is 60 % visually. Right Ventricle: Normal right ventricular systolic function. Left Atrium: The left atrium appears enlarged. Left Atrium Appendage: Normal left atrial appendage, no thrombus seen. IAS: No intracardiac shunt by agitated saline injections. Mitral Valve: Mild to moderate mitral regurgitation. Tricuspid Valve: Moderate tricuspid regurgitation. Echocardiogram 02/19/2023: Normal left ventricular size and systolic function, LVEF is 55%, moderately dilated right ventricle with mildly reduced systolic function, severe biatrial dilatation, mild to moderate mitral and tricuspid regurgitation, mild aortic and pulmonic regurgitation. Moderately elevated right-sided pressures, RVSP 56 mmHg. ECG 11/21/2020: Atrial fibrillation with slow ventricular response, right bundle branch block. Assessment/Plan Principal Problem: Permanent atrial fibrillation (CMS/HCC) Active Problems: History of GI bleed Epistaxis This is a 88 y.o. male with complex prior medical histo (more content not included)... Normal [place] MRSA/MSSA DNA NASALon 2023 MRSA DNA Positive Abnormal Negative [place] Comment on above: Order Comment: Testi ng methodology is an automated qualitative in vitro diagnostic test for the directdetection and differentiation of Staphylococcus aureus (SA) DNA and methicillin-resistant Staphylococcus aureus (MRSA) DNA from nasal swabs in patients at risk for nasal colonization. The test utilizes real-time polymerase chain reaction (PCR) for the amplification of MRSA/SA DNA and fluorogenic target-specific hybridization probes for the detection of the amplified DNA. A negative result does not preclude nasal colonization. Performed By: #### L [id number] ####[facility] ([facility])[address] [place] [address] MSSA DNA Negative Normal Negative [place] Comment on above: Order Comment: Testi ng methodology is an automated qualitative in vitro diagnostic test for the directdetection and differentiation of Staphylococcus aureus (SA) DNA and methicillin-resistant Staphylococcus aureus (MRSA) DNA from nasal swabs in patients at risk for nasal colonization. The test utilizes real-time polymerase chain reaction (PCR) for the amplification of MRSA/SA DNA and fluorogenic target-specific hybridization probes for the detection of the amplified DNA. A negative result does not preclude nasal colonization. Performed By: #### L [id number] ####[facility] ([facility])[address] [place] [address] NURSNOTEon 01-21-2024 NURSNOTE Report given to CORI Linton from RICKY Doyle Any medications or safety alerts were reviewed. Any pending diagnostics and notifications were also reviewed, as well as any safety concerns or issues, abnormal labs, abnormal imagining, and abnormal assessment findings. Questions were answered. Normal [place] NURSNOTE Bedside swallow stud y completed and passed. Normal [place] NURSNOTE CHG wipes completed. [facility]EN[facility] 01-21-2024 AB SCREEN Negative Normal [place] Comment on above: Performed By: #### L [id number] ####[facility] BLOOD BANK, ABO group Nom (Bld) O [facility] Comment on above: Performed By: #### L [id number] ####[facility] BLOOD BANK, RH TYPE IN BLOOD Positive Normal [facility] Comment on above: Performed By: #### L [id number] ####[facility] BLOOD BANK, Prep for Procedureon 024 Prep for Procedure [id number] Ry Lerner 1935 M Date Provider Department Center 01/09/2024 [facility] Family History Family history unknown: Yes Normal [place] Echocardiographyon 4 Echocardiography [id number] .00TIFF Normal [facility] ANESon 01-03-2024 ANES - Attestation signed by Xochitl Bolden MD at 01/06/2024 11:17 AM By using the attestations below, the signing clinician agrees that I have read and verify that the documentation has been personally reviewed by me and ensure that the documentation accurately reflects the encounter. GC: I personally saw this patient on the day of the encounter, performed the garcia portion(s) of the service and participated in the management and confirm the resident's documentation. Please note there may be an additional personal documentation from me. Patient: Ry Frausto Lerner Procedure Information Date/Time: 01/03/24 1230 Procedure: TRANSESOPHAGEAL ECHO (CARLOS) Location: [facility] Vascular Lab Clinical information reviewed: Allergies Meds Physical Exam Airway Mallampati: III Neck ROM: full Cardiovascular Rhythm: regular Rate: normal Dental Pulmonary Breath sounds clear to auscultation Abdominal Abdomen: soft Anesthesia Plan ASA 3 other (Moderate anesthesia ) Anesthetic plan and risks discussed with patient. Use of blood products discussed with patient who consented to blood products. Additional Equipment Requests Normal [place] HPon 01-03-2024 - Attestation signed by Xochitl Bolden MD at 01/06/2024 11:17 AM By using the attestations below, the signing clinician agrees that I have read and verify that the documentation has been personally reviewed by me and ensure that the documentation accurately reflects the encounter. GC: I personally saw this patient on the day of the encounter, performed the garcia portion(s) of the service and participated in the management and confirm the resident's documentation. Please note there may be an additional personal documentation from me. History Of Present Illness Ry Lerner is a 88 y.o. male presenting for CARLOS procedure today. Past medical history is pertinent for longstanding persistent atrial fibrillation with an elevated [id number] score of 6 due to age, hypertension, heart failure, and stroke/TIA/thromboemb olism. Patient is not a good candidate for long-term anticoagulation due to epistaxis and history of gastrointestinal bleeding. Patient was seen by the structural team, Dr. Morales, last month for WILLIAM device closure discussion. Patient was agreeable to the procedure. He is scheduled today for a transesophageal echocardiogram for assessment of the left atrial appendage anatomy. Patient denies any chest pain, SOB, palpitations, syncope or pre-syncope. Past Medical History He has a past medical history of Atrial fibrillation (CMS/HCC), Hypertension, and Tachycardia-bradycard ia (CMS/HCC). Surgical History He has a past surgical history that includes Hernia repair and Insert / replace / remove pacemaker (10/13/2021). Social History He reports that he has quit smoking. His smoking use included cigarettes. He has been exposed to tobacco smoke. He has never used smokeless tobacco. He reports that he does not drink alcohol and does not use drugs. Allergies Patient has no known allergies. Medications (Not in a hospital admission) Cardiac device check - In Clinic 08/02/2023 [id number] Final ROS: 10 organ systems have been reviewed; nothing except as above. Last Recorded Vitals Blood pressure 134/59, pulse 60, resp. rate 17, SpO2 100 %. Physical Exam Constitutional: Appearance: He is well-developed. He is not ill-appearing. HENT: Head: Normocephalic and atraumatic. Nose: Nose normal. Eyes: General: No scleral icterus. Pupils: Pupils are equal, round, and reactive to light. Neck: Thyroid: No thyromegaly. Vascular: No JVD. Cardiovascular: Rate and Rhythm: Normal rate and regular rhythm. Pulses: Radial pulses are 2+ on the right side and 2+ on the left side. Heart sounds: Normal heart sounds. No murmur heard. No friction rub. No gallop. Pulmonary: Effort: Pulmonary effort is normal. No respiratory distress. Breath sounds: Normal breath sounds. No wheezing or rales. Chest: Chest wall: No tenderness. Abdominal: General: Bowel sounds are normal. There is no distension. Palpations: Abdomen is soft. Tenderness: There is no abdominal tenderness. Musculoskeletal: General: No swelling. Cervical back: Neck supple. Skin: General: Skin is warm and dry. Neurological: General: No focal deficit present. Mental Status: He is alert and oriented to person, place, and time. Psychiatric: Mood and Affect: Mood normal. Behavior: Behavior is cooperative. Judgment: Judgment normal. Relevant Results No echocardiogram results found for the past 12 months Assessment/Plan Permanent atrial fibrillation (CMS/HCC) MORFIN (dyspnea on exertion) Chronic heart failure with preserved ejection fraction (CMS/HCC) Cardiac pacemaker in situ Primary hypertension History of CVA (cerebrovascular accident) Patient is scheduled for a CARLOS procedure today to assess the left atrial appendage anatomy. An informed consent was signed by the patient prior to procedure. All concerns and questions have been addressed. Trenton William MD Cardiovascular disease fellow [facility] NURSNOTEon 01-03-2024 NURSNOTE Bedside swallow stud y completed and passed. [facility] NURSNOTE RN educated pt on d/ c instructions. RN encouraged pt to voice any questions or concerns. Pt verbalizes no questions or concerns at this time. Pt was wheeled off of unit with all of belongings. [facility] Telephoneon 12-25-2023 Telephone [id number] Ry Lerner 1935 M Date Provider Department Center 12/25/2023 OTONIEL ALMEIDA [facility] Family History Family history unknown: Yes [facility] Family Medicine Office/Clini c Noteon 12-10-2023 Family Medicine Office/Clinic Note HPI Staff Ry is an 88 year old male presenting to discuss results pt had CT scan on 11/22/23 Has been taking Vitamin b12 would like to know if he needs to still take it Would like to know if he still should avoid spicy foods Would like to talk about watchman again. Pt has appointment tomorrow with surgeon Dr Mason who does the watchman procedure. History of Present Illness pt presents today to go over CT results Review of Systems PHQ Score Initial Depression Screen Score: 0 SCORE Physical Exam Vitals & Measurements HR: 60(Peripheral) RR: 18 BP: 128/76 SpO2: 97% HT: 71 in HT: 180.0 cm WT: 97.72 kg WT: 214.984 lb BMI: 30.16 General: alert, no acute distress ENMT: oral mucosa moist, no pharyngeal erythema or exudate Cardiovascular: regular rate and rhythm, normal peripheral perfusion Respiratory: Lungs CTA, respirations non labored Extremities: no deformity, no trauma Neurological: oriented x 4, LOC appropriate for age, CN II-XII intact, motor strength equal & normal bilaterally, speech normal Assessment/Plan 1. Lung nodule (R91.1: Solitary pulmonary nodule) discussed CT of chest results. nodues have not changed in size. stable at this time discussed all CT results. all questions answered. RTC for wellness visit. 2. Liver nodule (K76.89: Other specified diseases of liver) fluid filled benign cysts noted on CT 3. Nodule of kidney (N28.89: Other specified disorders of kidney and ureter) simple cysts noted on CT. 4. 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 BMI 30.0-30.9,adult (Z68.30: Body mass index [BMI] 30.0-30.9, adult) BMI education complete Orders: amlodipine, 5 mg = 1 tab(s), Oral, Daily, # 90 tab(s), Refills(s) 1, Pharmacy: [facility], 179, cm, 09/03/23 10:34:00 EST, Height/Length Dosing, 100.9, kg, 09/03/23 10:34:00 EST, Weight Dosing amlodipine, 5 mg = 1 tab(s), Oral, Daily, X 90 day(s), # 90 tab(s), Refills(s) 3, Pharmacy: [facility], 180, cm, 12/03/23 10:39:00 EDT, Height/Length Dosing, 97.7, kg, 12/03/23 10:39:00 EDT, Weight Dosing lisinopril, 20 mg = 1 tab(s), Oral, Daily, # 90 tab(s), Refills(s) 1, Pharmacy: [facility], 178, cm, 07/03/23 9:26:00 EST, Height/Length Dosing, 98.4, kg, 07/03/23 9:26:00 EST, Weight Dosing lisinopril, 20 mg = 1 tab(s), Oral, Daily, X 90 day(s), # 90 tab(s), Refills(s) 3, Pharmacy: [facility], 180, cm, 12/03/23 10:39:00 EDT, Height/Length Dosing, 97.7, kg, 12/03/23 10:39:00 EDT, Weight Dosing omeprazole, 40 mg = 1 cap(s), Oral, Daily, # 180 cap(s), Refills(s) 3, Pharmacy: [facility], 178, cm, 01/22/23 14:05:00 EDT, Height/Length Dosing, 100, kg, 01/22/23 14:05:00 EDT, Weight Dosing omeprazole, 40 mg = 1 cap(s), Oral, Daily, X 90 day(s), # 90 cap(s), Refills(s) 3, Pharmacy: [facility], 180, cm, 12/03/23 10:39:00 EDT, Height/Length Dosing, 97.7, kg, 12/03/23 10:39:00 EDT, Weight Dosing Follow-up No qualifying data available Patient Education Paget's Disease of Bone Problem List/Past Medical History Ongoing Abnormal chest CT Abnormal liver ultrasound Abnormal ultrasound of kidney Abnormal x-ray of cervical spine Acute cerebrovascular accident (CVA) AF (atrial fibrillation) Anemia Bleeding ulcer BMI 30.0-30.9,adult Contusion of lung Cyst of pancreas Dyshidrotic eczema Dysrhythmias Eczema Former cigar smoker Hemoperitoneum HTN (hypertension) Hyperlipidemia Liver nodule Lung nodule Nodule of kidney Paget's disease of the bone Rotator cuff tear Skin texture changes Historical No qualifying data Procedure/Surgical History Nasal cautery (10/24/2023), Colonoscopy (12/12/2022), Carpal tunnel release (12/10/2022), Cardiac pacemaker (09/2021), Colonoscopy (02/2011), Transurethral resection of prostate (TURP) syndrome (1995), Hernia (1993), Tonsillectomy with adenoidectomy. Medications amLODIPine 5 mg Tab, 5 mg= 1 tab(s), Oral, Daily, 3 refills furosemide 40 mg Tab, 40 mg= 1 tab(s), Oral, Daily, 1 refills lisinopril 20 mg Tab, 20 mg= 1 tab(s), Oral, Daily, 3 refills omeprazole 40 mg Cap-DR, 40 mg= [...] Use:. Cigars, Pipe, Household tobacco concerns: No., 12/03/2023 Former smoker, quit more than 30 days ago Tobacco Use:., 09/30/2023 Family History Diabetes me (more content not included)... Normal [facility] Comment on above: Result Comment: Elec tronically Signed By: Ezequiel CHAMBERS, John Zuniga\.br\Date and Time Signed: 12/10/23 12:54 EDT Office Visiton 12-04-2023 Follow-up visit [id number] Ry Lerner 1935 M Date Provider Department Center 12/04/2023 KELLY MARTIN BETH [facility] Family History Family history unknown: Yes Level of Service:01761 NM OFFICE/OUTPATIENT ESTABLISHED HIGH MDM 40 MIN Normal [place] Patient Educationon 12-03-19 Patient Education Orthopedics Paget's Disease of Bone Paget's disease is a condition that makes the bones grow faster than normal. Healthy bones rebuild themselves by breaking down old bone and replacing it with new bone on a regular basis. This process is called bone turnover or remodeling and normally slows down with age. In Paget's disease, new bone is formed faster than the old bone can be removed. This may cause bones to: ? Be larger and weaker than normal. ? Have abnormal shapes (deformities). ? Break more easily than healthy bones. Paget's disease may affect just a few bones, or it may affect bones all over the body. Bones in the arms, legs, spine, pelvis, and skull are often affected. What are the causes? The cause of this condition is not known. What increases the risk? The following factors may make you more likely to develop this condition: ? Having a family history of the disease. ? Being 50 years of age or older. ? Being male. ? Being of descent. What are the signs or symptoms? Symptoms of this condition may include: ? Bone pain, neck pain, and headache. ? Joint pain or stiffness. ? Tingling or numbness. ? Legs that bend outward from the hips to the ankles (bowed legs). ? Bones that break easily. ? A feeling of warmth in areas of skin that are over the affected bone. ? Loss of height. You may also have changes in the shape of the skull or other bones. Hearing loss may occur if the skull bones are affected. In some cases, there are no symptoms of this condition. How is this diagnosed? This condition may be diagnosed based on: ? A physical exam. ? Your medical history. ? Blood and urine tests. ? Imaging tests, such as X-rays and bone scans. ? Removal and testing of a bone sample (bone biopsy). This is rarely needed. How is this treated? Treatment for this condition depends on your symptoms and which areas of your body are affected. If you have no symptoms, you may not need treatment. However, you may need treatment if the condition is causing symptoms, affecting your skull, or putting you at risk for broken bones (fractures). The goals of treatment are to relieve bone pain and to prevent the condition from getting worse. Treatment may include: ? Medicines for pain. This may include NSAIDs, such as ibuprofen. ? Medicines that slow down abnormal bone turnover (bisphosphonates or calcitonin). ? Calcium and vitamin D supplements. ? Devices to help you move around. These are called assistive devices or mobility aids. These may include a cane, walker, or brace. ? Surgery to treat problems that are caused by the disease. Surgery is rarely used. Follow these instructions at home: Medicines ? Take uqzp-guq-gxmdwth and prescription medicines only as told by your health care provider. ? Take calcium and vitamin D supplements as told by your health care provider. ? If you are taking a bisphosphonate by mouth: ? Take the medicine with a large glass of water. ? Take it in the morning. ? Do not eat or drink anything for 30 minutes after taking the medicine. ? Stay upright for 30 minutes after taking the medicine. Avoid lying down during this time. Preventing falls and fractures ? This condition may put you at greater risk for falls and fractures. To help prevent falls: ? Use a cane or walker as needed. ? Wear closed-toe shoes that fit well and support your feet. Wear shoes that have rubber soles or low heels. ? Remove clutter and tripping hazards from all walkways. ? Use good lighting in all rooms. Use a night-light to help you see during the night. ? Install and use handrails on stairways and in the bathroom. ? Have your eyes checked regularly. If you wear glasses, wear them at all times. ? Ask your health care provider what activities are safe for you. You may need to avoid activities that put you at risk for falls or injuries, such as contact sports. General instructions ? Wear braces as told by your health care provider. ? You may need to have regular blood tests to monitor your treatment. ? Keep all follow-up visits. This is important. Contact a health care provider if: ? You have bone pain or joint pain that gets worse. ? You have hearing loss. ? You have swelling in your legs or ankles. ? You have abdominal pain. ? You lose your appetite. ? You are not able to have a bowel movement. ? You have fatigue or weakness. Get help right away if: ? You think that you might have a broken bone. ? You fall. ? You have chest pain. ? You have shortness of breath. ? You have numbness or are not able to move your arms or legs. Summary ? Paget's disease is a condition that makes the bones grow faster than normal. This causes bones to be larger and weaker than normal, have abnormal shapes (deformities), and break more easily than healthy bones. ? This condition is more likely to develop in people who ariza (more content not included)... Normal [facility] RAD - CT Reporton 11-26-2023 RAD - CT Report [id number] .00TIFF Normal [facility] RAD - CT Reporton 11-15-2023 RAD - CT Report [id number] .00TIFF Normal [facility] Physician Orderon 10-31-2023 Physician Order [id number] .00TIFF Normal [facility] Ambulatory Visit Summaryon 0 10-30-2023 Ambulatory Visit [...] you for choosing us for your care. Mitchell [facility] Family Medicine Office/Clini c Noteon 10-30-2023 Family Medicine Office/Clinic Note HPI Staff Ry is a 88 year old male presenting for follow up Called 10/29/23 for records he was there for medication management, no record of CT scan . pt states [facility] had no order for CT of abdomen and pelvis. daughter would like to discuss watchman . 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 Hemorid burst on Saturday. Daughter from [...] pelvis was ordered by September 29 but [facility] never received the order. new order sent to [facility] 4. BMI 30.0-30.9,adult (Z68.30: Body mass index [...] influenza vi (more content not included)... Normal [facility] Comment on above: Result Comment: Elec tronically Signed By: Sheng Simms\.br\Date and Time Signed: 10/30/23 16:04 EDT Office Visiton 10-30-2023 Follow-up visit [id number] Ry Lerner 1935 M Date Provider Department Center 10/30/2023 KORINA GODOY BETH [facility] Family History Family history unknown: Yes Level of Service:82228 [place] OFFICE/OUTPATIENT ESTABLISHED MOD MDM 30 MIN Reason for Visit and Comments: Follow-up [104741] - 6 month follow up [facility] Orders Onlyon 10-30-2023 Orders Only [id number] Ry Lerner 1935 M Date Provider Department Center 10/30/2023 JULES NGUYEN BETH [place] Family History Family history unknown: Yes [facility] Lab Reportson 10-29-2023 Lab Reports [id number] .00TIFF Normal [facility] IntraOperative Documentson 0 10-28-2023 IntraOperative Documents [id number] .00TIFF Normal [facility] Consent for Anesthesiaon Consent for Anesthesia [id number]# 1.00TIFF Normal [facility] Discharge Instructionson Discharge Instructions [id number]# 1.00TIFF Normal [facility] IntraOperative Documentson 0 10-25-2023 IntraOperative Documents [id number]# 1.00TIFF Normal [facility] Main OR Intraoperative Recor don 10-25-2023 Main OR Intraoperative Record IntraOp Document Type FT Summary Primary Physician: Christelle Salazar MD Finalized Date/Time: 10/25/23 13:48:34 Pt. Name: RY LERNER/Sex: 1935 Male Med Rec #: [id number] Physician: Christelle Salazar MD Financial #: [id number] Pt. Type: A Room/Bed: [place] [address] Admit/Disch: 10/24/23 12:15:19 - 10/24/23 15:50:00 Institution: Case Times FT Entry 1 Patient Times In Room 10/24/23 13:45:00 Out Room 10/24/23 14:16:00 Procedure Times Start 10/24/23 13:58:00 Stop 10/24/23 14:08:00 Anesthesia Times Start 10/24/23 13:45:00 Stop 10/24/23 14:16:00 Last Modified By: Damion Irving RN 10/24/23 14:16:07 General Comments: 10/25/23 Chart opened for charge review per Nan Burt RN. 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 Last Modified By: Aristides RN, Damion Irving RN, Damion Irving RN, Damion Calix 10/24/23 14:16:08 10/24/23 14:16:08 10/24/23 14:16:08 Entry 4 Entry 5 Case Attendee Josefa Newell Sydney A Role Performed Staff - Other Scrub - Primary Time In 10/24/23 13:45:00 10/24/23 13:45:00 Time Out 10/24/23 14:06:00 10/24/23 14:16:00 Procedure NASAL ENDOSCOPY(Right) NASAL ENDOSCOPY(Right) Comments Last Modified By: Aristides PERSAUD, Damion Irving RN, Damion Calix 10/24/23 14:16:08 10/24/23 14:16:08 Perioperative Protocols FT [...] No Time Out Yovany James, Given Participants Marie CHAMBERS, Aristides Mills RN, Reece Barraza Kelsie E, Dellinger, Sydney [...] WITH CAUTERIZATION Primary Procedure Yes Primary Surgeon Marie CHAMBERS, Christelle Diaz Start 10/24/23 13:58:00 Stop 10/24/23 14:08:00 Anesthesia [...] and tissue Entry 1 Skin Integrity Intact, [place], Warm, and Outcomes Met? Yes Dry Last [...] Right Arm (more content not included)... Normal [facility] Operative Reporton Operative Report SURGERY DATE: 10/24/2023 PREOPERATIVE DIAGNOSIS: Right epistaxis POSTOPERATIVE DIAGNOSIS: Right epistaxis OPERATION: Right nasal endoscopy and cautery ANESTHESIA: General endotracheal COMPLICATIONS: None FINDINGS: Extensive excoriation of the right anterior middle turbinate and nasal septum INDICATIONS: This 88-year-old man presented with recurrent epistaxis of the right nose. His nose was packed last week at [facility], and then when he returned for attempted [...] the Recovery Room in good condition. Christelle Salazar Jr., M.D. ca Dictated: 10/24/2023 [id number] Transcribed: 10/24/2023 cc:JAXON Shane [facility] Comment on above: Result Comment: Elec tronically Signed By: Marie CHAMBERS, Christelle Diaz\.br\Date and Time Signed: 10/25/23 07:09 EDT Outside Recordson 10-25-2023 Outside Records [id number]# 1.00TIFF [facility] Preoperative Documentson Preoperative Documents [id number]# 1.00TIFF [facility] Progress Note-Physicianon Progress Note-Physician Patient: RY LERNER [...] when meets criteria ( To home ). 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 Abnormal liver ultrasound / SNOMED CT 6376626599 / Confirmed Abnormal ultrasound of kidney / SNOMED CT 0735086186 / Confirmed Rotator cuff tear / SNOMED CT 9593579408 / Confirmed Nodule of kidney / SNOMED CT 556828199 / Confirmed Abnormal x-ray of cervical spine / SNOMED CT 850241616 / Confirmed Liver nodule / SNOMED CT 3247671995 / Confirmed HTN (hypertension) / SNOMED CT 1749850056 / Confirmed No details in previous records Hyperlipidemia / SNOMED CT 83055598 / Confirmed no details in previous chart Bleeding ulcer / SNOMED CT 9737512794 / Confirmed Hemoperitoneum / SNOMED CT 3551834778 / Confirmed No details in previous medical record Former cigar smoker / SNOMED CT 947288364 / Confirmed Eczema / SNOMED CT 33695767 / Confirmed Cyst of pancreas / SNOMED CT 98705990 / Confirmed Abnormal chest CT / SNOMED CT 1810988182 / Confirmed Contusion of lung / SNOMED CT 985369604 / Confirmed No details in previous records Skin texture changes / SNOMED CT 089893414 / Confirmed Acute cerebrovascular accident (CVA) / SNOMED CT 312883643 / Confirmed Cardiac pacemaker / SNOMED CT 1178729493 / Confirmed Dysrhythmias / SNOMED CT 8437035805 / Confirmed Tachy, Ryan BMI 30.0-30.9,adult / SNOMED CT 846687639 / Confirmed AF (atrial fibrillation) / SNOMED CT 55014123 / Confirmed Anemia / SNOMED CT 189721307 / Confirmed FE DEF Anemia Canceled: Aspiration pneumonia / SNOMED CT 2317228798 Histories Procedure history: Colonoscopy (586796019) on 12/12/2022 at 87 Years. Carpal tunnel release (295549645) on 12/10/2022 at 87 Years. Comments: 12/11/2022 11:34 EDT - Suma Dubois Left Cardiac pacemaker (61216723) in the month of 09/2021 at 86 Years. Colonoscopy (414324130) in the month of 02/2011 at 75 Years. 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 Hernia (5388385626) in 1993 at 58 Years. Tonsillectomy with adenoidectomy (89021652). Social History Social & Psychosocial Habits Alcohol [...] adequate air exchange. Cardiovascular: Regular rhythm. Plan [place] [employer] Anesthesiologists (ASA) physical status classification: Class III. Anesthetic Preoperative Plan: Anesthesia General. Normal [facility] Comment on above: Result Comment: Elec tronically Signed By: Ward Kraus Jr, DO\zulma\Date and Time Signed: 10/25/23 09:03 EDT Consent for Treatmenton 09-27 Consent for Treatment [id number]#1 .00TIFF Normal [facility] Discharge Instructionson Discharge Instructions RY LERNER :1935 Visit Date:10/24/2023 Inpatient Discharge Instructions Your Care Team Admitting Physician - Christelle Salazar MD Referring Physician - Christelle Salazar MD Reason for Your Visit EPISTAXIS Your [...] Appointments after Discharge Follow Up with Christelle Salazar When: Comments: As needed Medications What How [...] cuff tear Skin texture changes Education Materials [place], [place] DISCHARGE INSTRUCTIONS: NASAL SURGERY DO NOT [...] the office with any questions or problems: [phone] ([place] office) The above information has been explained, I have had the opportunity to have my questions answered, and I have received a copy. Responsible Libertarian Signature Surgeon?s Signature Nurse?s Signature Reviewed: 09/05 [...] We want (more content not included)... Normal [facility] Comment on above: Result Comment: Elec tronically Signed By: Andie PERSAUD, Chang Estevez\.br\Date and Time Signed: 10/24/23 14:43 EDT H&P Updateon 10-24-2023 H&P Update [id number]# 1.00TIFF Normal [facility] Inpatient Patient Summaryon 10-24-2023 Inpatient Patient Summary [place] [id number] [facility] Clinical Discharge Instructions PERSON INFORMATION Name: RY LERNER PHYSICIANS Admitting Physician: Christelle Salazar MD Attending Physician: Christelle Salazar MD PCP: Sheng Simms Discharge Diagnosis: Epistaxis Comment: PATIENT EDUCATION INFORMATION Instructions: Medication Leaflets: Follow up: With: Address: When: Christelle Salazar Comments: As needed MEDICATION LIST Medications to [...] Tablets By Mouth every day., managed per [facility] Comment: Mitchell Dennis [facility] Main OR PACU I Recordon 09-27 Main OR PACU I Record PACU Phase I Docum ent Type FT Summary Primary Physician: Christelle Salazar MD Finalized Date/Time: 10/24/23 15:11:48 Pt. Name: ODALIS LERNERDENIA Leblanc/Sex: 1935 Male Med Rec #: [id number] Physician: Christelle Salazar MD Financial #: [id number] Pt. Type: A Room/Bed: [facility]08/29 Admit/Disch: 10/24/23 12:15:19 - Institution: Case Times [...] Outcomes Met? Yes Last Modified By: Tha RN, Cristina More 10/24/23 15:11:35 Post-Care Text: The [...] By: Cristina Almazan RN 10/24/23 15:11 Normal [facility] Main OR Preoperative Recordo n 10-24-2023 Main OR Preoperative Record PreOp Document Type FT Summary Primary Physician: Christelle Salazar MD Finalized Date/Time: 10/24/23 13:53:33 Pt. Name: RY LERNER./Sex: 1935 Male Med Rec #: [id number] Physician: Christelle Salazar MD Financial #: [id number] Pt. Type: Room/Bed: [place] [address] Admit/Disch: 10/24/23 12:15:19 - Institution: Case Times [...] By: Damion Irving RN 10/24/23 13:53 Normal [facility] Monitor Recordon 10-24-2023 Monitor Record [id number]# 1.00TIFF Normal [facility] Monitor Record [id number]# 1.00TIFF Normal [facility] Outpatient Surgery Discharge Instructionon 10-24-2023 Outpatient Surgery Discharge Instruction [place] [id number] Patient Discharge Instructions PERSON INFORMATION Name: RY [...] THE NEAREST EMERGENCY ROOM OR CALL 911 I, RY LERNER, have received the attached patient education materials/instruction s and have verbalized understanding: May we do a follow up call? Yes No I was present when discharge instructions were given Patient Signature Date Clinican/Nurse Signature Date Follow up: With: Address: When: Christelle Salazar Comments: As needed Pharmacy Information: You may receive a survey from [employer] asking you to rate your care experience. Your feedback is important and will help us understand what we do well and how we can improve the quality of care we provide to you, your loved ones and our community. It?s an honor to serve you. Thank you for choosing [facility] HERE ARE THE MEDICATION CHANGES [...] Tablets By Mouth every day., managed per [facility] PATIENT EDUCATION INFORMATION Instructions: Medication Leaflets: Normal [facility] Patient Education - Texton 0 10-24-2023 Patient Education - Text [place], [place] Royal Granger, DO DISCHARGE INSTRUCTIONS: NASAL [...] medications as prescribed. Use the Nasal Relief [place] (decongestant) 2 sprays each nostril every hours. Use the Nasal Saline [place] 2 sprays each nostril every 2 hours. [...] the office with any questions or problems: [phone] ([place] office) The above information has been explained, I have had the opportunity to have my questions answered, and I have received a copy. Responsible Libertarian Signature Surgeon?s Signature Nurse?s Signature Reviewed: 09/05 Normal [facility] BMPon 10-23-2023 Anion gap [Moles/Vol] 11 mmol/L Normal 6-16 [facility] Comment on above: Performed By: #### 1 [id number], [id number] ####[facility] [address] [place] [address] Calcium [Mass/Vol] 10.5 mg/dL Normal 8.9-11.1 [facility] Comment on above: Performed By: #### 1 [id number], 8333874 ####[facility] [address] [place] [address] Chloride [Moles/Vol] 110 mmol/L Normal 101-111 [facility] Comment on above: Performed By: #### 1 3763536, 2886931 ####[facility] [address] [place] [address] CO2 [Moles/Vol] 25 mmol/L Normal 21-31 [facility] Comment on above: Performed By: #### 1 8862493, 3158513 ####[facility] [address] [place] [address] Creatinine [Mass/Vol] 2.2 mg/dL High 0.5-1.3 [facility] Comment on above: Performed By: #### 1 7587042, 5855481 ####[facility] [address] [place] [address] Glucose [Mass/Vol] 111 mg/dL Normal 55-199 [facility] Comment on above: Performed By: #### 1 1927487, 8288441 ####[facility] [address] [place] [address] Potassium [Moles/Vol] 5.3 mmol/L Normal 3.5-5.3 [facility] Comment on above: Performed By: #### 1 1651325, 1685104 ####[facility] [address] [place] [address] Sodium [Moles/Vol] 141 mmol/L Normal 135-145 [facility] Comment on above: Performed By: #### 1 1326860, 7087762 ####[facility] [address] [place] [address] Urea nitrogen [Mass/Vol] 60 mg/dL High 5-21 [facility] Comment on above: Performed By: #### 1 4084150, 6160965 ####[facility] [address] [place] [address] Urea nitrogen/Creatinine [Mass ratio] 27 No Units High 10-20 [facility] Comment on above: Performed By: #### 1 3117890, 7011311 ####[facility] [address] [place] [address] CBC w/ Auto Diffon 4 Basophils/100 WBC (Bld) 0.6 % Normal 0.0-2.0 [facility] Comment on above: Performed By: #### 2 915374, [id number] #### [facility] [address] [place] [address] Basophils/Leukocytes Auto (Bld) [Pure # fraction] 0.0 E9/L Normal 0.0-0.2 [facility] Comment on above: Performed By: #### 2 154539, 11623909 #### [facility] [address] [place] [address] Eosinophils (Bld) [#/Vol] 0.2 E9/L Normal 0.0-0.5 [facility] Comment on above: Performed By: #### 2 374698, 00212873 #### [facility] [address] [place] [address] Eosinophils/100 WBC (Bld) 3.7 % Normal 0.0-8.0 [facility] Comment on above: Performed By: #### 2 935976, 52591352 #### [facility] [address] [place] [address] Erythrocyte distribution width (RBC) [Ratio] 14.4 % High 10.9-14.2 [facility] Comment on above: Performed By: #### 2 306950, 54945811 #### [facility] [address] [place] [address] Hematocrit (Bld) [Volume fraction] 27.9 % Low 37.7-49.0 [facility] Comment on above: Performed By: #### 2 541993, 93493731 #### [facility] [address] [place] [address] Hemoglobin (Bld) [Mass/Vol] 9.0 g/dL Low 13.5-17.5 [facility] Comment on above: Performed By: #### 2 177297, 36556619 #### [facility] [address] [place] [address] Lymphocytes (Bld) [#/Vol] 0.6 E9/L Low 1.0-4.0 [facility] Comment on above: Performed By: #### 2 104524, 96115001 #### [facility] [address] [place] [address] Lymphocytes/100 WBC (Bld) 14.4 % Normal 14.0-50.0 [facility] Comment on above: Performed By: #### 2 484510, 02542663 #### [facility] [address] [place] [address] MCH (RBC) [Entitic mass] 31.0 pg Normal 27.0-34.0 [facility] Comment on above: Performed By: #### 2 253462, 49706829 #### [facility] [address] [place] [address] MCHC (RBC) [Mass/Vol] 32.4 g/dL Normal 31.4-36.0 [facility] Comment on above: Performed By: #### 2 939706, 45895621 #### [facility] [address] [place] [address] MCV (RBC) [Entitic vol] 95.7 fL Normal 80.0-100.0 [facility] Comment on above: Performed By: #### 2 946387, 14914192 #### [facility] [address] [place] [address] Monocytes (Bld) [#/Vol] 0.4 E9/L Normal 0.2-1.0 [facility] Comment on above: Performed By: #### 2 501417, 03754223 #### [facility] [address] [place] [address] Neutrophils (Bld) [#/Vol] 3.0 E9/L Normal 2.0-7.5 [facility] Comment on above: Performed By: #### 2 338456, 75213638 #### [facility] [address] [place] [address] Neutrophils/100 WBC (Bld) 72.5 % Normal 36.0-75.0 [facility] Comment on above: Performed By: #### 2 111588, 98676183 #### [facility] [address] [place] [address] Platelet 187.0 E9/L Normal 150.0-500.0 [facility] Comment on above: Performed By: #### 2 191865, 70286960 #### [facility] [address] [place] [address] Platelet mean volume (Bld) [Entitic vol] 8.3 fL Normal 6.4-10.8 [facility] Comment on above: Performed By: #### 2 458140, 22667142 #### [facility] [address] [place] [address] RBC (Bld) [#/Vol] 2.9 E12/L Low 4.3-5.9 [facility] Comment on above: Performed By: #### 2 133369, 64276679 #### [facility] [address] [place] [address] WBC corrected for nucl RBC Auto (Bld) [#/Vol] 4.1 E9/L Normal 4.0-11.0 [facility] Comment on above: Performed By: #### 2 392289, 47933260 #### [facility] [address] [place] [address] CHEMISTRYOrdered By: SYSTEM SYSTEM on 10-23-2023 Anion [...] 30.4 s Normal 25.1 - 36.5 second(s) [facility] Auto Coag Comment on above: Interpretive Data: [...] [Relative time] 1.13 {INR} Invalid Interpretation Code [facility] Auto Coag Comment on above: Interpretive Data: I NR results are specifically intended to assess patients stabilized on long-term Anticoagulation therapy suggested INR s Less Intensive Anticoagulation 2.0 3.0 Conventional Range 3.0 4.5 PT Coag (PPP) [Time] 12.7 s High 9.4 - 1 2.5 second(s) [facility] Auto Coag Comment on above: Interpretive Data: [...] for Procedure/Surger yon 10-23-2023 Consent for Procedure/Surgery [id number]# 1.00TIFF Normal [facility] Consent for Treatmenton 09-27 Consent for Treatment [id number]#1 .00TIFF Normal [facility] HEMATOLOGYOrdered By: SYSTEM SYSTEM on 10-23-2023 [...] Remisol Heme Outside Recordson 10-23-2023 Outside Records [id number]# 1.00TIFF Normal [facility] PT & PTTon 10-23-2023 aPTT Coag (PPP) [Time] 30.4 second(s) Normal 25.1-36.5 [facility] Comment on above: Result [...] - 109.0 sec. Performed By: #### 2 221180, 75663574 #### [facility] [address] [place] [address] INR Coag (PPP) [Relative time] 1.13 {INR} Invalid Interpretation Code [facility] Comment on above: Result Comment: INR results are specifically intended to assess patients stabilized on long-term Anticoagulation therapy suggested INR?s ?Less Intensive Anticoagulation? 2.0 ? 3.0 Conventional Range 3.0 ? 4.5 Performed By: #### 2 088008, 01288704 #### [facility] [address] [place] [address] PT Coag (PPP) [Time] 12.7 second(s) High 9.4-12.5 [facility] Comment on above: Result [...] no normal ranges. Performed By: #### 2 423561, [id number] #### [facility] [address] [place] [address] Physician Orderon 10-23-2023 Physician Order [id number] #1.00TIFF Normal [facility] XR Chest 2 Viewson XR Chest [...] mGy = na DAP = na Normal [facility] eGFRon 10-23-2023 eGFR 28 mL/min/1.73 m2 Low >=59 [facility] Comment on above: Order Comment: Order added by Discern Expert. Performed By: #### 1 5327415, 0637604 ####[facility] [address] [place] [address] ED Note-Physicianon 10-21-19 24 ED Note-Physician [id number]#1 .00TIFF Normal [facility] Lab Reportson 10-16-2023 Lab Reports [id number]#1 .00TIFF Mitchell Dennis [facility] Ambulatory Visit Summaryon 0 10-02-2023 Ambulatory [...] choosing us for your care. Normal Dennis [facility] Medicine Office/Clini c Noteon 10-02-2023 [facility] Medicine Office/Clinic Note HPI Staff Ry is an 87 year old male presenting for 1 month follow up [place] 09/04/23 Liver nodule, U/s of liver was ordered and referred to GI at [facility], labs drawn pt seen seen green energy marketing analyst 09/30/[address] ordered with some [...] pt planning to take a trip to [place] tomorrow and will be gone for 9 [...] inactivated 04/14/20 (more content not included)... Normal [facility] Comment on above: Result [...] SARS-CoV-2 (COVID-19 (more content not included)... Normal [facility] Comment on above: Result Comment: Elec tronically Signed By: Greg CHAMBERS, Mary Jane Eddy\.br\Date and Time Signed: 09/30/23 14:51 EST Consultation Noteon 09-09-19 24 Consultation Note [id number]#1 .00TIFF Normal [facility] Physician Referralon 024 Physician Referral [id number]#1 .00TIFF Normal [facility] Family Medicine Office/Clini c Noteon 09-04-2023 Family Medicine Office/Clinic Note HPI Staff Ry is a 87 year old male presenting to review x-rays Pt has x-rays done on 08/28/23, CT chest on 08/30/[address] right shoulder 09/02/23 Pt needs refill on furosemide pt states he went to field liability generalist Dr Venegas and he stated that he [...] well. pt will have labs drawn at [facility]. RTC 1 month to touch base [...] influenza virus (more content not included)... Normal [facility] Comment on above: Result Comment: Elec tronically Signed By: Sheng Simms\.viviane\Date and Time Signed: 09/04/23 12:27 EST Physician Referralon 024 Physician Referral [id number]#1 .00TIFF [facility] Ambulatory Visit Summaryon 0 09-03-2023 Ambulatory Visit [...] 10:00 AM EST With: Sheng Simms Where: [facility] Family Medicine [facility] Lab Reportson 09-03-2023 Lab Reports [id number]#1 .00TIFF [facility] Physician Orderon 09-03-2023 Physician Order [id number]#1 .00TIFF [facility] Consultation Noteon 08-30-19 24 Consultation Note [id number]#1 .00TIFF [facility] Physician Orderon 08-30-2023 Physician Order [id number]#1 .00TIFF [facility] Physician Orderon 08-29-2023 Physician Order [id number]#1 .00TIFF [facility] Physician Order [id number]#1 .00TIFF Normal [facility] RAD - MISCon 08-29-2023 RAD MIS [id number]# 1.00TIFF Normal [facility] RAD MIS [id number]# 1.00TIFF Normal [facility] RAD MIS [id number]#1 .00TIFF Normal [facility] Ambulatory Visit Summaryon 0 08-28-2023 Ambulatory Visit [...] 10:20 AM EST With: Sheng Simms Where: [facility] Family Medicine [place] Normal [facility] Family Medicine Office/Clini c Noteon 08-28-2023 [...] of clutter to prevent tripping and/or falling. [place] Advance Directives reviewed, yes on file in [...] UTD, patient to bring cholesterol results to V. Colonoscopy up to date, last completed 12/12/2022. [...] a difficult (more content not included)... Normal [facility] Comment on above: Result Comment: Elec tronically Signed By: Sheng Simms\.br\Date and Time Signed: 08/28/23 13:35 EST\.br\Electronically Co-Signed By: Rene Brannon\.br\Date and Time Co-Signed: 08/28/23 13:09 EST Formson 08-28-2023 Forms [id number]#1 .00TIFF Mitchell [facility] Patient Educationon 08-28-19 Patient Education Caregiving [...] night-lights. ? Place frequently used items in qdxt-fd-jpdmv places. Lower the shelves around your home [...] the way. ? Do not use floor israeli or wax that makes floors slippery. If [...] include working with a physical therapist or operational trainer to improve your strength, balance, and endurance. Where to find more information ? Centers for Disease Control and Prevention, [place]: www.cdc.gov ? National [place] on Aging: www.ed.nih.gov Contact a health care [...] health ca (more content not included)... Normal [facility] Physician Referralon 023 Physician Referral [id number] [id number] [facility] Ambulatory Visit Summaryon 1 09-03-2022 Ambulatory [...] Follow-Up Appointments Saturday 11:00 AM EST Where: [facility] [place] Normal [facility] Family Medicine Office/Clini c Noteon 07-03-2023 Family [...] changes Historical (more content not included)... Normal [facility] Comment on above: Result Comment: Elec tronically Signed By: Sheng Simms\.viviane\Date and Time Signed: 07/03/23 12:49 EST Lab Reportson 07-02-2023 Lab Reports [id number] [facility] Office Visiton 05-15-2023 Follow-up visit [id number] Ry Lerner 1935 M Date Provider Department Center 05/15/2023 Maame6-CHARISSE GAY [facility] Family History Family history unknown: Yes Level of Service:19640 NM OFFICE/OUTPATIENT ESTABLISHED MOD MDM 30-39 MIN Normal [place] Physician Referralon 023 Physician Referral [id number] .00CD:127 Normal [facility] Consultation Noteon 03-11-20 23 Consultation Note [id number] .00CD:127 Normal [facility] Office Visiton 02-08-2023 Follow-up visit [id number] Ry Lerner Lisbet 1935 M Date Provider Department Center 02/08/2023 Maame6-CHARISSE GAY [facility] Family History Family history unknown: Yes Level of Service:77576 NM OFFICE/OUTPATIENT ESTABLISHED MOD MDM 30-39 MIN [facility] Family Medicine Office/Clini c Noteon 01-23-2023 Family [...] at this time. Patient was treated at [facility]. Questions/Concerns: History of Present Illness pt [...] to follow up with Dr. Vargas in [place] and also placed a GI consult. since then his so he has not made any of those appointments. pt wants to stop taking lasix. encouraged daughter to make appointment with Dr. Vargas and let him decide if he can stop lasix. will draw pt/ptt in office today and compare to labs that were drawn in [place] end of November. still waiting for those labs. will call pt tomorrow once we have lab results. omeprazole refills also sent to pharmacy. they will hold off on GI referral until they get meds situated with special forces medical sergeant. Dr. Vargas's office was called notified. and [...] 06/13/2020 Recorded (more content not included)... Normal [facility] Comment on above: Result Comment: Elec tronically Signed By: Sheng Simms\.viviane\Date and Time Signed: 01/23/23 16:36 EDT Coding Summaryon 01-01-2023 Coding Summary HTMLBase 64 CndsjwqcLFl0bIo+PGhlY WQ+XW5LPCIgG40lsYOnvD 4nB1JPSCqKYcjmDTSVJFm GDbOcfgFhHE5htPXuDTUx IC8+JR1iBNAiXjutlKQhe 6C6yRB4V53nod7bZTbnqD U0ZXQwLpUqagsdv6qpkMx 6IDcuNmluOyBt DZAwhC67ZLU0hB74Md07c NOnqMRsp8dviKk7MdBcRG DrPCH7wJxhLBywx3IzSOO tD51vfPPfa1F0 BHFefBdfmUBaJgPutCR6l Y8oWLcovxrjj2ytauriSc f1zy05hVIwa9U8zYD4T7H syzP9ZNEtcJGl KajfwGWEyW1qoxhxx5qrs ztdIjHpIUOfIMu8RPr6WK HtbRjeSxShVF65TSA7FHA semSbM7DvBXVk wWgrDjG3m1C1Ja6SX8YVZ yllT9VNIXEUCNqxhVP+PC 25lj92H7UsTuzbXzp1EAZ bNEE8fWZ2oH6j WBLuODtiz7M0lEF7P1Bse nLgmd7tz7boFKEwIEixD5 2ioLKvj7E8KYAmsCG8FRT fuZifYfCznO40 Oyc+ONLrgQdeo8FoPnfni 4bka7rkoBs5RhdcKJTbvg TkcLmgNEJ9t3OaZr7sUSK faPL5yRY2tE1b FuBbVbJ2KTseH041JlAnw CQrKrsxW79hZ5GitKM+PH NgZqa2GHJqgIbrVP4kE3P hZGRpbmctbGVm uOqqLV1qCBJqudiuYAGqv U0fONVtL2j3CeFwZsI8AG qiR6XoDQWhwuezWd42lP0 eTkVkJjN4PBly E1UudqT9MWEppYThQKcvB IQ5M78hv8W1UVNpYLYtSQ L8bDO5hH4lzRamwgicvSY mdDsgdmVydGlj MBunHYetG712DDWupJbbK kNvZGluZyBEYXRlOiAgMD YvMDYvMjAyMzwvdGQ+PHR yXSL4wLgaRBVl xUAzNAosYd4umJqhyMkbP E6eBPPciqkpSZIyyF2uPG NbbMWeaGgoNF5iEHAbtsx yi278QpGhSIP0 DXKusTNsO5EalT0aYoNwY KIvDBMnD3FlsKKaEXnsC7 00REhhHqQ5HXDdcfJmP4G sLWFsaWduOiB0 n5Y7Fw2Hp8HaacffM8Glo LFjZhXbTgflWHw5H0QiCe wvdHI+PO49GKErLJ24XTa 2YYZ1qXxmKVzh ONLcT7YrtL6iKmMwEABmI GRkOyc+PHRhYmxlIHdpZH RoPScxMDAlJyBzdHlsZT0 dPy0yJZXbPHVu oRpaaVBvNlAsb6gzXOJyD BnbXW0jyJxpV7GstFM2NJ Czu2g2Az65U18oU0XtnAC +GJRpfGK4jDS9 jF6sNvTfUoC2VWlhE757Z mMirEJgAhcpc8tdi0qefU t4KfK0XRCjrkKxlDjoCAD 0t7BjRr48Y82n IHdpZHRoPSIxNSUiIHZhb Pogrj9ktY1eIf9+PGNvbC N8fFP1mW4fNvFhXeL0QEw rF275KzXjoGFr Rxlrf3xnp1ymoJm1OaQjT ITaeqShiWrdLAB4r5KcSx 98Z7FvkPcyt5LyUmr0is1 8aOFff5N9jZZ3 X3PnGSRwlrvuzIJybPhdI J8xEMOeksvlQMWplJ2jNU YhW4c8PzHkBbR8PFvlJ0F eaxY7GBOdeKBy MUFqbZHDeA9owrtgj7grm ldpRrLqPMChGGe2JUc8GP RnqKlsPcUdWJO0PeH6LBW 5mWUkbI0bsQif rpvaiL2bLji+WTG1eRNvl KFXZQ5mQgfkwEZ+PHRkIH O3pUscBEtpFEUqeE1uNUJ cU5g7KdAyUzI6 FXnjU6TizaP6KMZjuUKbF IDqgCJEsZ7sdkilu3qsvc isJxYtJZVbKKf2VAu8QZZ saWduOiBsZWZ0 EcH2DOS0tEYuuE3giSjeg wiqrS0xWqp+QmlydGggRG G6XYk6Z8LeTfr3XKDsrBz oLS8vsEOqSOvb Jp5fpWyecLhzVS3mUABco klon209QiGit3lwIAGerV JiPCclRWT8O40jr9M0SUD xGETjMSL3rGH6 gB1uqGfsbduttLDljHvlh hBhyYlaCJjoGCiuQ094HY QmuCdlKuXjTEs8U5YqKlj 5PXAobYvqAA4o bEGhMXfcTy3hnFgjfZluL I9bOCEvupjct740UfQjy8 ajQUCywTFgQIghVLH7G74 qa7F8RVKkRPGw PMQ8oEX4xL5gsWtmhxgil GVmdDsgdmVydGljYWwtYW hxY732JTShhXxoLlZnpZh 9M7HhLdy8BLSa pBwvYG9yqIFjRLvlTl8kl UfgzTgjKK9kBEKpdqfbj3 72MtAeo0lkPJAfoLZvXEp xJSJ5U75rl5Z5 QWLwWGFqTNJ2kKY5wI7eb GlnbjogbGVmdDsgdmVydG qnOHolKZqvG767YPUgpFd nPlBhdGllbnQg UDdmJOn7S9ZyLfrvaFX+P L78KAJqMM31vJNxcDRnv4 pxuSi7IdPtEZKfQWS1kMv aOMebi5OrNQHl R65yaHVwi4W7ZJVetGepk CCrXmOcnPR7eD8kIKjeix vdh2ktoxbcEppay2veag2 1qT39B52rMNfw ZHRoPSIzMCUiIHZhbGlnb l0tlJ3dJi6+SIFxkBX0fN V9pI1nTMZrFaW1FHxiP65 9InRvcCIvPjxj o9flc8uytDd0GiQ4XPKko kTvgBkcXPS1b6DxXg48O3 9sIHdpZHRoPSIyMCUiIHZ abXozqv5sdU6l Ii8+UQGuvQK2qZQ8bV1jY pZaCqM7EXjoJ421ImRodE XpCxvwJ73uU6HhxXF+PHR aPwd9INYbqByr ZY7sbHOkIYiaAy3sRXQ0C dBeIwJgZBluC5HcKPIjzh xbthtmfYK3PIIlNHFjjL9 6Oi6ilSduYEDm gWNSkI6mksmlr4vhzwmuT hNsIEFfTSl2BUs8XMAsmR znJpDiPYR9SbU2LQS6oAW vhG0qgQxdkmhe tI6rP6TuIKCejncgEj86l E6zCkQaSlF8IElnRql+TU mDTGUOUAYXJRWUTV6DHBb WE50BVQ79LY44 dEIau2X4sQL2I7IuVHWxb pxlwvkkpUN4KURgEOMpaZ 18eWJrVJjlFb1nx5C3k14 2YHVkTMXasE77 Xb4vuCglCESywMTYgL8rj lzrd6bqlypgUdPgQKOnLF t4DHb4XZSogEhaKlVtVFS 9JtH6UQL4vEPm tG9rzGffqetmuQ2tXeh+M DMvMDQvMTkzNTwvdGQ+PH SpWBX6iAsaRIhgMIMsnU0 mDHTeM4m6FkBn ZqK2QGhwM8ZfUBPyxyreZ q37jV4wDtLlMfE0AIuyM4 IrpuD1JDFgpOCcGRhgTUR 6I03nm7E9BSYl YPMdEII6sIC3hV3pgVtbl jogbGVmdDsgdmVydGljYW udTSfyP937VPUcrFufGwl 4IKqgNGXdSR63 TV21sQGvu5U7aBY1C0VtU VPfvrmtpmbuaRL5CMExMF HagQ38fENhZGbxKh5uz9H 7r946DUUvBITm nV50Xk8nzPofMWVnhAQAg F5pcqgzo4nvusteDoNaJV MtGJl2ENg1OHEgbTjxKbI xVFA0RmV7LWU6 kFNfuO3zdMfoktcupK8lC yc+TUFMRTwvdGQ+PHRkIH H3cCzyQYowQOHtjI2xGWB dJ8a9OnNqNnW9 NTgaD1MbCSHedyxdLl20o B7cVjKrYrT5SMvnX2Glqk W5DWRrfVCnGNhdMAF6X26 db6L6YDXbNFLz BKV8ePQ2tI7tbZdgjqryy GVmdDsgdmVydGljYWwtYW viK128KYXzaIcgZcYmaXZ SeCXfFOC4RE23 RD82G3DkRhugtHSouPU+P HRhYmxlIHdpZHRoPScxMD MiHkXwzYnpZS6dBk4nDPJ yLWNvbGxhcHNl FsGax4hiPGNdJGvuTN0uk NnbX6VgtMZ1UHKsl0e2Hk 42H45bM2BpuIQ+PGNvbCB 5cTF2kF8jSlTz SvQ5TJiqB985CvTluMYpN jelt5wyh6qzzVu0XiNsBB XzreUwrNpuSHU9o8KgVv4 5U14hRSihFSHs JPAlBPNoDSQwvNrjgi6ri G9wIi8+REEglZA1kJU8hO 2dXhWoNmT5AErxP276VvX zaGXnSdnlB51z D3FfgOQ+EMBlWus7EPSqo ZdqDE4fxQKxKZgjYg7qSL X8EiYaUeHeRPynO4UwZNJ pbmctcmlnaHQ6 HAEbEZExnA71Nw7qdXpoC p6lQHRqGVG7FKYxvEDpJ9 ZewB1fRfKzHIXuQLCeE9N iwOHkBKeeC819 YIbvMbB9ZXCiciDuW7EpY DWlpKfaCqV5z7S6Mj5OgN encPRzFJ2xQsBxYCi9M5B vTnd2JNBgmJpa GD0deGUmYZyhMr0bxAeio GtdCG6oGXNomboee016Ks Bvs8kpAJKlmAMtGDkyIMN 0U34ww5N7VQWj TDIdSMJ7bXE8fC0zkMwje jogbGVmdDsgdmVydGljYW yfOBrjM430JJQldPlqUjI CNqc7P1XoMha8 UKBiuNavWD0lpUXiECchA v3jrZrwlKjzHP5nFLZrjx qoo358ZoCwb1ddKZTytWW wFVvfCTE3P25r v9N4QXJdEARrUCO8oEO4q C0orBdkywibnUJyeRohqt BdfFsrQDxpCKmoP362JNG ebWsbBz0NMme8 J3IwNyh1XRMssSpyWA2gm INrLMipSo0lgCmlyGmcLI 2kMZIzesnax869YuVge1k kIDEwcHQgVGlt FBW3C25ib7J6PKTnAGGmT SX2hXQ5kH6rtYqtivnfvV VmdDsgdmVydGljYWwtYWx pW929EOMjyVaj PlBheWVyOjwvdGQ+PC90c v59Y5LsAwimRkg6LEJzXW B8vLI2nH7eBQLoQTukm5E 1mBX7R4BltgMy ci1 (more content not included)... [facility] Consent Formson 01-01-2023 Consent Forms [id number] [facility] Inpatient Patient Summaryon 12-31-2022 Inpatient Patient Summary [place] [id number] Patient Discharge Instructions Name: RY LERNER : 1935 Patient Address: [address] [place] [address] Primary Care Provider: Name: John Nieves MD After you are discharged if you find you have any questions, please, call [phone] ext [phone] to speak to a nurse. Discharge Diagnosis: Carpal tunnel syndrome, right Prescription Information: If you have been given a prescription for narcotics, seek immediate medical attention if you have any difficulty breathing or any sudden status changes such as confusion and sleepiness. If you or anyone you know is experiencing suicidal thoughts, mental health, alcohol and/or drug addiction problems; contact the [facility] 18/02 Crisis Hotline -text 4HENZ kl 588956. If you received any narcotics, sedation, or [...] business decisions or sign any legal documents [facility] would like to thank you for allowing us to assist you with your healthcare needs. The following includes patient education materials and information regarding your injury/illness. RY LERNER has been given the following list of follow-up instructions, prescriptions, and patient education materials: Follow-up Instructions With: Address: When: MARJ PEREZ [address] [place] [address], [address] [place] [id number] Business (1) 01/09/2023 11:00 AM Medications During [...] 1 cap(s) Oral every day. Lindsey's wort (Granger's wort oral tablet) 1 tab(s) Oral 2 [...] release capsule) 1 cap(s) Oral every day. Granger's wort (Lindsey's wort oral tablet) 1 tab(s) [...] 3. 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 Change [...] or concerns, please call the office at [phone] 7. Follow up as scheduled Viruses or Bacteria What?s got you sick? Antibiotics only treat bacterial infections. Viral illnesses cannot be treated with antibiotics. When an antibiotic is not prescribed, ask your healthcare professional for tips on how to relieve symptoms and feel better. Usual Cause Illness Viruses Bacteria Antibiotic Neede (more content not included)... Normal [facility] MAGR Intraoperative Recordon 12-31-2022 MAGR Intraoperative Record MAGR Intra-Op Record Summary Primary Physician: Ward Martinez DO Finalized Date/Time: 12/31/22 11:56:55 Pt. Name: RY LERNER/Sex: 1935 MALE Med Rec #: [id number] Physician: Ward Martinez DO Financial #: [id number] Pt. Type: D Room/Bed: / Admit/Disch: 12/31/22 [...] Entry 3 Case Attendee Ward Martinez RN, Chelita A Kokinda, Lyndsey RN Riki DO Role Performed Surgeon - Primary Special Education Science Teacher Special Education Science Teacher Time In 12/31/22 09:15:00 12/31/22 09:15:00 12/31/22 09:15:00 Time Out 12/31/22 09:37:00 12/31/22 09:46:00 12/31/22 09:46:00 Procedure Carpal Tunnel Carpal Tunnel Carpal Tunnel Release(Right) Release(Right) Release(Right) Last Modified By: [place] PERSAUD, Chelita Borjas RN, Chelita Mc RN 12/31/22 09:49:26 12/31/22 09:49:26 12/31/22 09:49:26 Entry 4 Entry 5 Case Attendee Lavern Vasques Kelly CST CASH POSTING SPECIALIST Role Performed Biofuels Production Technician Scrub Personnel Time In 12/31/22 09:15:00 12/31/22 [...] By Chelita Borjas RN Scrub 10% Povidone-Iodine Waldo Prep Area (Im.270) Elbow and forearm, Prep Area Details Right Hand, Wrist Skin Prep Agent Dry Yes Without Pooling Hair Removal Syntegrity Hair Removal Methods No hair removal performed Outcome Met (O.100) Yes Last Modified By: Chelita Borjas RN 12/31/22 11:55:12 Pos (more content not included)... [facility] Preoperative Recordon 0 12-31-2022 MAGR Preoperative Record MAGR Pre-Op Record Summary Primary Physician: Ward Martinez DO Finalized Date/Time: 12/31/22 09:13:14 Pt. Name: RY LERNER /Sex: 1935 MALE Med Rec #: [id number] Physician: Ward Martinez DO Financial #: [id number] Pt. Type: D Room/Bed: / Admit/Disch: 12/31/22 [...] Vicky Ponce RN 12/31/22 09:13 [facility] Patient Handouton 12-31-[address] 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 Keep your hand elevated above your elbow for the first 24 hours after surgery 2. Wiggle your fingers frequently while awake 3. 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 Change [...] or concerns, please call the office at [phone] 7. Follow up as scheduled Normal [facility] CBC AUTO DIFFon 12-25-2022 BASO # 0.0 103/ul Normal 0.0-0.1 [facility] Comment on above: Performed By: #### C BC #### [facility] [address] [address] [address] Rashmi Nolan Basophils/100 WBC (Bld) 0.6 % Normal 0.2-2.0 [facility] Comment on above: Performed By: #### C BC #### [facility] [address] [place] [address] Dr. Rashmi Nolan EO # 0.2 103/ul Normal 0.0-0.7 [facility] Comment on above: Performed By: #### C BC #### [facility] [address] [address] [address] Rashmi Nolan Eosinophils/100 WBC (Bld) 6.9 % Normal 0.9-7.0 [facility] Comment on above: Performed By: #### C BC #### [facility] [address] [place] [address] Dr. Rashmi Nolan Erythrocyte distribution width (RBC) [Ratio] 14.0 % Normal 11.0-15.0 [facility] Comment on above: Performed By: #### C BC #### [facility] [address] [place] [address] Dr. Rashmi Nolan Hematocrit (Bld) [Volume fraction] 29.8 % Critically low 42.0-54.0 [facility] Comment on above: Performed By: #### C BC #### [facility] [address] [place] [address] Dr. Rashmi Nolan Hemoglobin (Bld) [Mass/Vol] 9.8 g/dL Critically low 14.0-18.0 [facility] Comment on above: Performed By: #### C BC #### [facility] [address] [place] [address] Dr. Rashmi Nolan IG # 0.02 10e3/ul Normal 0.00-0.03 [facility] Comment on above: Performed By: #### C BC #### [facility] [address] [place] [address] Dr. Rashmi Nolan IG % 0.6 % Critically high 0.0-0.5 [facility] Comment on above: Performed By: #### C BC #### [facility] [address] [place] [address] Dr. Rashmi Nolan LYMPH # 0.8 103/ul Critically low 1.2-3.8 [facility] Comment on above: Performed By: #### C BC #### [facility] [address] [place] [address] Dr. Rashmi Nolan Lymphocytes/100 WBC (Bld) 25.1 % Normal 20.5-60.0 [facility] Comment on above: Performed By: #### C BC #### [facility] [address] [place] [address] Dr. Rashmi Nolan MANUAL DIFF REQ NO Normal [facility] Comment on above: Performed By: #### C BC #### [facility] [address] [place] [address] Dr. Rashmi Nolan MCH (RBC) [Entitic mass] 33.0 pg Normal 25.9-34.0 [facility] Comment on above: Performed By: #### C BC #### [facility] [address] [place] [address] Dr. Rashmi Nolan MCHC (RBC) [Mass/Vol] 32.9 g/dL Normal 29.9-35.2 [facility] Comment on above: Performed By: #### C BC #### [facility] [address] [place] [address] Dr. Rashmi Nolan MCV (RBC) [Entitic vol] 100.3 fL Critically high 80.0-94.0 [facility] Comment on above: Performed By: #### C BC #### [facility] [address] [place] [address] Dr. Rashmi Nolan MONO # 0.3 103/ul Normal 0.3-0.8 [facility] Comment on above: Performed By: #### C BC #### [facility] [address] [place] [address] Dr. Rashmi Nolan Monocytes/100 WBC (Bld) 9.6 % Normal 1.7-12.0 [facility] Comment on above: Performed By: #### C BC #### [facility] [address] [place] [address] Dr. Rashmi Nolan NEUT # 1.9 103/ul Normal 1.4-6.5 [facility] Comment on above: Performed By: #### C BC #### [facility] [address] [place] [address] Dr. Rashmi Nolan Neutrophils/100 WBC (Bld) 57.2 % Normal 43.0-75.0 [facility] Comment on above: Performed By: #### C BC #### [facility] [address] [place] [address] Dr. Rashmi Nolan Platelet mean volume (Bld) [Entitic vol] 10.5 fL Normal 9.5-13.5 [facility] Comment on above: Performed By: #### C BC #### [facility] [address] [place] [address] Dr. Rashmi Nolan PLT 129 103/ul Critically low 150-450 [facility] Comment on above: Performed By: #### C BC #### [facility] [address] [place] [address] Dr. Rashmi Nolan RBC 2.97 106/ul Critically low 4.70-6.10 [facility] Comment on above: Performed By: #### C BC #### [facility] [address] [place] [address] Dr. Rashmi Nolan WBC 3.3 103/ul Critically low 4.0-11.0 [facility] Comment on above: Performed By: #### C BC #### [facility] [address] [place] [address] Dr. Rashmi Nolan PROTIMEon 12-25-2022 INR Coag (PPP) [Relative time] 1.03 {INR} Normal [facility] Comment on above: Performed By: #### B MP #### [facility] [address] [place] [address] Dr. Rashmi Nolan INR GUIDELINES SEE BELOW Normal [facility] Comment on above: Result Comment: ENOC RED INR: 2.0 - 3.0 CONDITIONS NOT LISTED BELOW 2.5 - 3.5 FOR PROSTHETIC HEART VALVE REPLACEMENT 2.5 - 3.5 RECURRENT THROMBOSIS Performed By: #### B MP #### [facility] [address] [address] [address] Rashmi Nolan PT Coag (PPP) [Time] 10.9 s Normal 9.0-11.6 [facility] Comment on above: Performed By: #### B MP #### [facility] [address] [place] [address] Dr. Rashmi Nolan PTTon 12-25-2022 aPTT Coag (Bld) [Time] 25.6 s Normal 22.3-36.2 [facility] Comment on above: Performed By: #### C BC #### [facility] [address] [place] [address] Dr. Rashmi Nolan Coding Summaryon 12-19-2022 Coding Summary HTMLBase 64 SqryynwyMRt9fBc+PGhlY WQ+EX7JGJOkF44kaVRzuI 5qC7UWXYaWVvsgUFJCFSw FEsWpkbYzAN0gvELlHKRw IC8+RQ4qVWHxXkxaeNWil 5K4gHH5N36knq1lCJbkfN X4AFYlXiNfmwwlc9bzvKs 6IDcuNmluOyBt WAGzxM48LNL9pZ66Uy82g HGlbRZuo6jdhMg5ShZrBE LjZBR0aArsLPnyz6TgNLW aI00rcNJsu6G1 GOQupXwgtOVmEmBniSC6y T7sIMgrnqfka4oorrczSt a5fu42rQFyj1F1oOC6F9Q qtyO5TVXxsYCn HncerWNZpJ1bkrruu2qmi vepRrTqCKNfACg1CYl2EY BefGmqOdXuQG34FSA8VCY bzqDsC1GkOGPn uRgfZyJ9v1E0An0SO9YTY ukkU1RVQVIZKHwphGS+PC 50vv52W0XhWxsyAqm4TOB iHFO3hTZ3jV6i PNBuBDlfu0A4jSR8B7Azh fFokd1ul7zcOBTxPYndU4 0rqWWiq3T4EUEkaNL6GLE jtAroEmWfrO21 Oyc+PSQoqTxbu3YmZrxwc 3bxr0njtNf4CautNTOcng CihFjmSGW7c9TcDx3uUEJ qwEZ6vIO2fR5f TmZhJuS9JRceG868TqSko IXqPvkkH21hH3RchHZ+PH VkMcx0NZZcmNwmTJ1gR1G hZGRpbmctbGVm iIaoGK9fLOVygdzpFXWma O3dFIEhX9p4PtYiLxO8HZ xmQ3XkHEOidbttCb92sL6 kRzKsMvZ9NSas Z6AviwK8KLNtsHWnGLsaX RR4R92ie5R1TYPlTFAeTO Q4kQU2lP0baVnmhzzcnRU mdDsgdmVydGlj LYxtTAegC498VUSobBbqD kNvZGluZyBEYXRlOiAgMD UvMjQvMjAyMzwvdGQ+PHR dVEG6oOrlVVIc bHUqJLbjMd8lcUmxvDzoF N4qYWHdxebsAFWtcC6qYR PynPHkkKehHG5aUMUetep dz788VaOyAFS1 UVQyxYSgA9VtdM2oQkXwQ BLvTSHoM3FtcBCdJMepO6 78UMhjFuS5IODxqlBvQ2P sLWFsaWduOiB0 g9Q6Is1Aa2ZwksbmX3Bif TZsNeUqPtvkRBg9X8TdEc wvdHI+BZ91JOGvBG58XLo 6YCU1uHhaPWqm LTSmA2YbjA4yViEfIKSaP GRkOyc+PHRhYmxlIHdpZH RoPScxMDAlJyBzdHlsZT0 zEp4nDGQcIFGz kFuyhLRnPtPpr2wuRVNfO FevCS8opSzsQ3VseSO8EU Cza3v9Zz13H32kZ3CeoID +JMDgfRD5aLF1 kX7sHyZjDqT2XHgxJ934E sGjrEHxDzzps1ldg0vvzB c6MmE3AQUvwlTbfVkjWJW 1u6OkMh00D86k IHdpZHRoPSIxNSUiIHZhb Lzxdj0luQ0dDt9+PGNvbC K9lDF8hB7eAuYzBnH5XWz zB828ZkHtnFMh Yyksm0jnb5yrzTk2TjBkW QOknjZxmForDKB4d3ZsOe 80F6ShcKssh5DqVgb2kl1 7oTMyj7B0iYH5 C0GlEKYatinuwMYupZxzC Y1nTXOuvjpnABNbhI4yFS MzA4i5DeSmVqS3BMwvI9X keoW6KKAsfNEa UNYekPODaL1mijwqi8dns xqhEnPbXDPzHXu8KAk7LM SdgZbaItJmRSC0AwH4PUH 9aSEfkT8scCxz mobpyR7uLto+LVL3kGWyn KIMXL5fHldutLR+PHRkIH P3yQqpVUhiBLTkmE2pBKU rO8z9YaAvCyW0 RBpxD4VbhlQ0LSVhkNJqA JDedNCYoR3bvridq7tkbl whDwIuZKCgMCz4BWl6OHE saWduOiBsZWZ0 RwU5AGS1tNDzfP0ktKqyy hjaeD6vAow+QmlydGggRG F7JUj3W8HhYoo6RPSmmBh xTJ6kjBFkMNjl Yt3qhYpzvDsbCA6eQBQfn iwuy305QbDih8voCGHbjW PnEVdmLXJ0U00eo6J2UKD vFDEpRTA4pMO7 dP7naXbkmvikzNUayAkjy fVktCneKRozGNlpW581SL QmrCnlCiDvOVe6K4AyMdr 7DIQmyCtdOY3x iGQyXOprSu2lqVoyaOufA R2gDCBvdrpkf093PuWcu8 peSJOjmPPiHYeqLJS7L49 it1B0NHWbIJZq XIT9tJA1iJ8igSyrimees GVmdDsgdmVydGljYWwtYW rwW829BTLveCcfKeZuoBn 6K9VsEpb6WAHg fDfzFC9dkCTgICplCq8en IldzQqpLI5kZRFjikwxg5 90TlSqn6oxOGEvjFSbLXp aXGV1Q94ar9K1 TAGdSUGeWDB6jGZ1aF4nw GlnbjogbGVmdDsgdmVydG deYAavQEkbX537JMWmxJt nPlBhdGllbnQg ZGokXJb9W4MxZnmlwCQ+P I05VIDmHR52nPGrsZLpl0 yrsWn3DpGyTHItPTM7hPb wIMicu8QgJVUp Z70atGJnq7Y3SSFzlYqhi DFiElGsxPU0bC7zNWftmq old7ipojscDwdow8khdj3 2hR87T72fAAje ZHRoPSIzMCUiIHZhbGlnb j3bnV4eIm7+XTIbkZB1mR Q8gQ1dXJQzYuY9IUmpL30 9InRvcCIvPjxj r7fqo3zjcHr9TrV8WOHbx lBkbTqdKET9h3JfCa09M9 9sIHdpZHRoPSIyMCUiIHZ jtSqyzj8jsM8w Ii8+YIEttDN4rMI9dS6qN eGnRrO7ASshG170VcVamM EzAkmtL53pM1ToeVE+PHR wSmx3ZSHedWdk JB9bvQZwQPcdGv7vCHW8W eGvCxXtVEouZ9FgYQDwck ztxjcgdSX7PWSuIKYjxK0 9Hx1nhZikSWBu dIHTkY3nqpthy9zgthbnW vSmJOHtVEc6HIn6JCRavO pbWcHrUZH3NqJ9NRC7zJM rjM1tiRllpjpq vY3pJ6BnFVQlkxihHq74b U4kFmMxWgE4SGrvUgq+TU jBFSMXDGSYLLMOXM8LAEe RQ72KOL50MJ31 vFGqa6N4iYK8X5XeZHOky frzajifkXZ0JDXqPJQjrT 58sSUeVNauFd3al1D4s48 3RTQpJVCxkN39 Tj9boRipGURfyYSSzF0sf vrsu1cvntikElUrLBUzBX d2ZVn9DJCfjVmeIsNjKYW 0ImM9SMC9fWNj dM6gtXzcyzrztT3bUji+M DMvMDQvMTkzNTwvdGQ+PH PhSYD6qMycQUoqMUIdzT7 cZCQvX2k2AaVo OrF9LFspR3KkLWZsrqrgZ m76kG9gXwUqGyS6TRpzF9 AnidU6IZYgiNZsOEnmPRJ 8K63sp3O9BFIl QXFfRSS9dUQ5uL2tjNyww jogbGVmdDsgdmVydGljYW dxEUwoK300ICUmtEnhIkq 9EYfdEEIhNV82 YD83nZHud4H2jIV8H0SxY KMjpdhbmxzhiCN0UFHbYV BadK40hRViCTmeRi0ak1N 9l854COVbUQJh hI20Qf7iqTeeKSSjaSTAp O9etgveh1cbpxqdSzPcVR FvTNi3UZl2MZUiqMfdGpF eKHQ5NhJ0PWS6 xMOgnZ5izNgvcsanfV8pP yc+TUFMRTwvdGQ+PHRkIH D0yXltNMnzINDymH7mOYG yS6h7NqEnNbY8 URamI3DzHJBqaxxxUu86g X9pXgYiRrC0GSklP7Frbq M5VWZibOOyZIviEQD1L49 kx6Y1ODMmZMGa IPV8pIC3vJ3dcEktxxitb GVmdDsgdmVydGljYWwtYW upC551YZKqfYsnRaIzsXY SmAGfBRY0WC71 OY72R3FgObjcmTIenMN+P HRhYmxlIHdpZHRoPScxMD RtGbMigVxfQD8bLq7xQUH yLWNvbGxhcHNl HbKar4jtTJJcFPjuWC6wx QjyE3IxoJY7DPWdh3p4Br 25H84sE8PzlJI+PGNvbCB 7mHT2rP7lHlBh SwQ2JOgaF762RiIuaRKaM onag0bvl7tdrFl3IhCdVJ CnduImyYiiVOS9z5EqWr9 6M61tGTvjTSDy COChOWLqXHVyhVsear0wz G9wIi8+UAVgcGJ5yJI0qQ 1pHsDwRgJ2GBcyU553WaL zlWJiPgbhJ05j B8YnzWH+NDWdZko7XFIxf JgmXY8vwXVoVWblNl1aWT A9EjHqWzJiTEthN0UnBQI pbmctcmlnaHQ6 HSCiIPSipM85Wz3ipJwjT p9wRDIkOPR6ZAWggXOrA1 BzbU3qMqEzYHKpGXTpQ2O mjQAmQGedP642 VLazWqO9QTVhboCkU0XiF IDwxGodCbY1p3L4Dl9ZgH rusIOpNJ3sAdLhPIi5J1X jBiy0VENjaFhq KZ7emAOeGNwvEv1ihBzfh HixZQ7eLFVbwjwfq058Sn Syf2soGKSioUJzRXfuLBU 3B38dt7V6BVMx VMGiMRM1mFL8vK6slOoks jogbGVmdDsgdmVydGljYW hzIIxeM604IVQepBvkYaP JJym4W3HvGtn8 OWGlwFglEU0vmTWtKPvzU a5pzSytyImrTG0wYAZuwv mpb267MeUma1vwCXOsnOL vNWqfLRC5Y59x p6M0ADMqLTFeBQW8qXC4w M4gwYmpzxqbiYCzqGupkb RxyKfkGXqcQPqrG923XHM tzSncPf8IIfs1 D9YzEgs9FISnzRhxUK6ng GHjKRlfMk4bhOouhJvoOT 5uHOObomisd735WoOlt0j kIDEwcHQgVGlt UME8O23we5C4DRCbVMEkP KO3bRI3yE4xqJzjivggxA VmdDsgdmVydGljYWwtYWx aB222NSSioRoh PlBheWVyOjwvdGQ+PC90c c83B9ZvEboxGnu5GQEpOF R0aHQ3pD1bNLFgECqjq8Z 6eXD9T9AoblYq ci1 (more content not included)... Normal [facility] [place] CBC AUTO DIFFon 12-14-2022 BASO # 0.0 103/ul Normal 0.0-0.1 [facility] Comment on above: Performed By: #### C BC #### [facility] [address], [place] [address] Dr. Rashmi Nolan Basophils/100 WBC (Bld) 0.6 % Normal 0.2-2.0 [facility] [facility] Comment on above: Performed By: #### C BC #### [facility] [address] [address] [address] Rashmi Nolan EO # 0.4 103/ul Normal 0.0-0.7 [facility] Comment on above: Performed By: #### C BC #### [facility] [address] [place] [address] Dr. Rashmi Nolan Eosinophils/100 WBC (Bld) 11.9 % Critically high 0.9-7.0 [facility] Comment on above: Performed By: #### C BC #### [facility] [address] [place] [address] Dr. Rashmi Nolan Erythrocyte distribution width (RBC) [Ratio] 15.2 % Critically high 11.0-15.0 [facility] Comment on above: Performed By: #### C BC #### [facility] [address] [place] [address] Dr. Rashmi Nolan Hematocrit (Bld) [Volume fraction] 26.3 % Critically low 42.0-54.0 [facility] Comment on above: Performed By: #### C BC #### [facility] [address] [place] [address] Dr. Rashmi Nolan Hemoglobin (Bld) [Mass/Vol] 8.9 g/dL Critically low 14.0-18.0 [facility] Comment on above: Performed By: #### C BC #### [facility] [address] [place] [address] Dr. Rashmi Nolan IG # 0.01 10e3/ul Normal 0.00-0.03 [facility] Comment on above: Performed By: #### C BC #### [facility] [address] [place] [address] Dr. Rashmi Nolan IG % 0.3 % Normal 0.0-0.5 [facility] Comment on above: Performed By: #### C BC #### [facility] [address] [place] [address] Dr. Rashmi Nolan LYMPH # 0.8 103/ul Critically low 1.2-3.8 [facility] Comment on above: Performed By: #### C BC #### [facility] [address] [place] [address] Dr. Rashmi Nolan Lymphocytes/100 WBC (Bld) 25.1 % Normal 20.5-60.0 [facility] Comment on above: Performed By: #### C BC #### [facility] [address] [place] [address] Dr. Rashmi Nolan MANUAL DIFF REQ NO Normal [facility] Comment on above: Performed By: #### C BC #### [facility] [address] [place] [address] Dr. Rashmi Nolan MCH (RBC) [Entitic mass] 33.0 pg Normal 25.9-34.0 [facility] Comment on above: Performed By: #### C BC #### [facility] [address] [place] [address] Dr. Rashmi Nolan MCHC (RBC) [Mass/Vol] 33.8 g/dL Normal 29.9-35.2 [facility] Comment on above: Performed By: #### C BC #### [facility] [address] [place] [address] Dr. Rashmi Nolan MCV (RBC) [Entitic vol] 97.4 fL Critically high 80.0-94.0 [facility] Comment on above: Performed By: #### C BC #### [facility] [address] [place] [address] Dr. Rashmi Nolan MONO # 0.3 103/ul Normal 0.3-0.8 [facility] Comment on above: Performed By: #### C BC #### [facility] [address] [place] [address] Dr. Rashmi Nolan Monocytes/100 WBC (Bld) 9.0 % Normal 1.7-12.0 [facility] Comment on above: Performed By: #### C BC #### [facility] [address] [place] [address] Dr. Rashmi Nolan NEUT # 1.7 103/ul Normal 1.4-6.5 [facility] Comment on above: Performed By: #### C BC #### [facility] [address] [place] [address] Dr. Rashmi Nolan Neutrophils/100 WBC (Bld) 53.1 % Normal 43.0-75.0 [facility] Comment on above: Performed By: #### C BC #### [facility] [address] [place] [address] Dr. Rashmi Nolan Platelet mean volume (Bld) [Entitic vol] 10.2 fL Normal 9.5-13.5 [facility] Comment on above: Performed By: #### C BC #### [facility] [address] [address] [address] Rashmi Nolan PLT 139 103/ul Critically low 150-450 [facility] Comment on above: Performed By: #### C BC #### [facility] [address] [place] [address] Dr. Rashmi Nolan RBC 2.70 106/ul Critically low 4.70-6.10 [facility] Comment on above: Performed By: #### C BC #### [facility] [address] [place] [address] Dr. Rashmi Nolan WBC 3.1 103/ul Critically low 4.0-11.0 [facility] Comment on above: Performed By: #### C BC #### [facility] [address] [place] [address] Dr. Rashmi Nolan MAGR Intraoperative Recordon 12-14-2022 MAGR Intraoperative Record MAGR Intra-Op Record Summary Primary Physician: Ward Martinez DO Finalized Date/Time: 12/14/22 09:30:19 Pt. Name: RY LERNER/Sex: 1935 MALE Med Rec #: [id number] Physician: Ward Martinez DO Financial #: [id number] Pt. Type: D Room/Bed: / Admit/Disch: 12/10/22 [...] Andrew DO Role Performed Surgeon - Primary Special Education Science Teacher Special Education Science Teacher Time In 12/10/22 15:05:00 12/10/22 14:54:00 12/10/22 14:54:00 Time Out 12/10/22 15:30:00 12/10/22 15:30:00 12/10/22 15:30:00 Procedure Carpal Tunnel Carpal Tunnel Carpal Tunnel Release(Left) Release(Left) Release(Left) Last Modified By: Maile Palmer RN, Barbara RN Long, Barbara RN 12/10/22 15:29:30 12/10/22 15:29:30 12/10/22 15:29:30 Entry 4 Entry 5 Case Attendee Macie Licea CASH POSTING SPECIALIST Carly Maddox CST Role Performed Biofuels Production Technician Scrub Personnel Time In 12/10/22 14:54:00 12/10/22 [...] By Maile Palmer RN Scrub 10% Povidone-Iodine [place] Prep Area (Im.270) Arm lower Prep Area [...] injury Counts (more content not included)... Normal [facility] PROF CHEM 8 (BAS METB)on Anion gap [Moles/Vol] 12.6 mmol/L Normal [facility] Comment on above: Performed By: #### B MP #### [facility] [address] [address] [address] Rashmi Nolan Calcium [Mass/Vol] 9.7 mg/dL Normal 8.5-10.1 [place] Comment on above: Performed By: #### B MP #### [facility] [address] [address] [address] Rashmi Nolan Chloride [Moles/Vol] 108 mmol/L Critically high 98-107 [facility] Comment on above: Performed By: #### B MP #### [facility] [address] [address] [address] Rashmi Nolan CO2 [Moles/Vol] 24.5 mmol/L Normal 21.0-32.0 [facility] Comment on above: Performed By: #### B MP #### [facility] [address] [address] [address] Rashmi Nolan Creatinine [Mass/Vol] 1.68 mg/dL Critically high 0.70-1.30 [facility] Comment on above: Performed By: #### B MP #### [facility] [address] [address] [address] Rashmi Nolan EGFR-AF ZIMBABWEAN 47 mL/min/1.73m2 Critically low >=60 [facility] Comment on above: Performed By: #### B MP #### [facility] [address] [address] [address] Rashmi Nolan EGFR-NON AF ZIMBABWEAN 39 mL/min/1.73m2 Critically low >=60 [facility] Comment on above: Performed By: #### B MP #### [facility] [address] [address] [address] Rashmi Nolan Glucose [Mass/Vol] 91 mg/dL Normal 74-[address] [facility] Comment on above: Performed By: #### B MP #### [facility] [address] [address] [address] Rashmi Nolan Potassium [Moles/Vol] 5.1 mmol/L Normal 3.5-5.1 [facility] Comment on above: Performed By: #### B MP #### [facility] [address] [address] [address] Rashmi Nolan Sodium [Moles/Vol] 140 mmol/L Normal 136-145 [place] Comment on above: Performed By: #### B MP #### [facility] [address] [place] [address] Dr. Rashmi Nolan Urea nitrogen [Mass/Vol] 27.0 mg/dL Critically high 7.0-18.0 [facility] Comment on above: Performed By: #### B MP #### [facility] [address] [place] [address] Dr. Rashmi Nolan Urea nitrogen/Creatinine [Mass ratio] 16.1 mg/mg Normal [facility] Comment on above: Performed By: #### B MP #### [facility] [address] [place] [address] Dr. Rashmi Nolan CBC AUTO DIFFon 12-13-2022 BASO # 0.0 103/ul Normal 0.0-0.1 [facility] Comment on above: Performed By: #### C BC #### [facility] [address] [place] [address] Dr. Rashmi Nolan Basophils/100 WBC (Bld) 0.6 % Normal 0.2-2.0 [facility] Comment on above: Performed By: #### C BC #### [facility] [address] [place] [address] Dr. Rashmi Nolan EO # 0.4 103/ul Normal 0.0-0.7 [facility] Comment on above: Performed By: #### C BC #### [facility] [address] [place] [address] Dr. Rashmi Nolan Eosinophils/100 WBC (Bld) 10.3 % Critically high 0.9-7.0 [facility] Comment on above: Performed By: #### C BC #### [facility] [address] [place] [address] Dr. Rashmi Nolan Erythrocyte distribution width (RBC) [Ratio] 15.8 % Critically high 11.0-15.0 [facility] Comment on above: Performed By: #### C BC #### [facility] [address] [place] [address] Dr. Rashmi Nolan Hematocrit (Bld) [Volume fraction] 25.7 % Critically low 42.0-54.0 [facility] Comment on above: Performed By: #### C BC #### [facility] [address] [place] [address] Dr. Rashmi Nolan Hemoglobin (Bld) [Mass/Vol] 8.5 g/dL Critically low 14.0-18.0 [facility] Comment on above: Performed By: #### C BC #### [facility] [address] [place] [address] Dr. Rashmi Nolan IG # 0.00 10e3/ul Normal 0.00-0.03 [facility] Comment on above: Performed By: #### C BC #### [facility] [address] [place] [address] Dr. Rashmi Nolan IG % 0.0 % Normal 0.0-0.5 [facility] Comment on above: Performed By: #### C BC #### [facility] [address] [place] [address] Dr. Rashmi Nolan LYMPH # 0.8 103/ul Critically low 1.2-3.8 [facility] Comment on above: Performed By: #### C BC #### [facility] [address] [place] [address] Dr. Rashmi Nolan Lymphocytes/100 WBC (Bld) 23.5 % Normal 20.5-60.0 [facility] Comment on above: Performed By: #### C BC #### [facility] [address] [place] [address] Dr. Rashmi Nolan MANUAL DIFF REQ NO Normal [facility] Comment on above: Performed By: #### C BC #### [facility] [address] [place] [address] Dr. Rashmi Nolan MCH (RBC) [Entitic mass] 32.9 pg Normal 25.9-34.0 [facility] Comment on above: Performed By: #### C BC #### [facility] [address] [place] [address] Dr. Rashmi Nolan MCHC (RBC) [Mass/Vol] 33.1 g/dL Normal 29.9-35.2 [facility] Comment on above: Performed By: #### C BC #### [facility] [address] [place] [address] Dr. Rashmi Nolan MCV (RBC) [Entitic vol] 99.6 fL Critically high 80.0-94.0 [facility] Comment on above: Performed By: #### C BC #### [facility] [address] [place] [address] Dr. Rashmi Nolan MONO # 0.3 103/ul Normal 0.3-0.8 [facility] Comment on above: Performed By: #### C BC #### [facility] [address] [place] [address] Dr. Rashmi Nolan Monocytes/100 WBC (Bld) 8.9 % Normal 1.7-12.0 [facility] Comment on above: Performed By: #### C BC #### [facility] [address] [place] [address] Dr. Rashmi Nolan NEUT # 2.0 103/ul Normal 1.4-6.5 [facility] Comment on above: Performed By: #### C BC #### [facility] [address] [place] [address] Dr. Rashmi Nolan Neutrophils/100 WBC (Bld) 56.7 % Normal 43.0-75.0 [facility] Comment on above: Performed By: #### C BC #### [facility] [address] [place] [address] Dr. Rashmi Nolan Platelet mean volume (Bld) [Entitic vol] 10.5 fL Normal 9.5-13.5 [facility] Comment on above: Performed By: #### C BC #### [facility] [address] [place] [address] Dr. Rashmi Nolan PLT 134 103/ul Critically low 150-450 [facility] Comment on above: Performed By: #### C BC #### [facility] [address] [address] [address] Rashmi Nolan RBC 2.58 106/ul Critically low 4.70-6.10 [facility] Comment on above: Performed By: #### C BC #### [facility] [address] [place] [address] Dr. Rashmi Nolan WBC 3.6 103/ul Critically low 4.0-11.0 [facility] Comment on above: Performed By: #### C BC #### [facility] [address] [place] [address] Dr. Rashmi oNlan PROF CHEM 8 (BAS METB)on Anion gap [Moles/Vol] 11.7 mmol/L Normal [facility] Comment on above: Performed By: #### C BC #### [facility] [address] [place] [address] Dr. Rashmi Nolan Calcium [Mass/Vol] 9.5 mg/dL Normal 8.5-10.1 [place] Comment on above: Performed By: #### C BC #### [facility] [address] [place] [address] Dr. Rashmi Nolan Chloride [Moles/Vol] 110 mmol/L Critically high 98-107 [facility] Comment on above: Performed By: #### C BC #### [facility] [address] [place] [address] Dr. Rashmi Nolan CO2 [Moles/Vol] 25.1 mmol/L Normal 21.0-32.0 [facility] Comment on above: Performed By: #### C BC #### [facility] [address] [place] [address] Dr. Rashmi Nolan Creatinine [Mass/Vol] 1.69 mg/dL Critically high 0.70-1.30 [facility] Comment on above: Performed By: #### C BC #### [facility] [address] [address] [address] Rashmi Nolan EGFR-AF ZIMBABWEAN 47 mL/min/1.73m2 Critically low >=60 [facility] Comment on above: Performed By: #### C BC #### [facility] [address] [address] [address] Rashmi Nolan EGFR-NON AF ZIMBABWEAN 38 mL/min/1.73m2 Critically low >=60 [facility] Comment on above: Performed By: #### C BC #### [facility] [address] [address] [address] Rashmi Nolan Glucose [Mass/Vol] 93 mg/dL Normal 74-106 [place] Comment on above: Performed By: #### C BC #### [facility] [address] [address] [address] Rashmi Nolan Potassium [Moles/Vol] 5.8 mmol/L Critically high 3.5-5.1 [facility] Comment on above: Performed By: #### C BC #### [facility] [address] [place] [address] Dr. Rashmi Nolan Sodium [Moles/Vol] 141 mmol/L Normal 136-145 [place] Comment on above: Performed By: #### C BC #### [facility] [address] [address] [address] Rashmi Nolan Urea nitrogen [Mass/Vol] 35.0 mg/dL Critically high 7.0-18.0 [facility] Comment on above: Performed By: #### C BC #### [facility] [address] [place] [address] Dr. Rashmi Nolan Urea nitrogen/Creatinine [Mass ratio] 20.7 mg/mg Normal [facility] Comment on above: Performed By: #### C BC #### [facility] [address] [place] [address] Dr. Rashmi Nolan ABO RH RETYPEon 05-17-2023 ABO and Rh group Nom (Bld) DONE Normal [facility] Comment on above: Performed By: #### C BC #### [facility] [address] [place] [address] Dr. Rashmi Nolan CBC AUTO DIFFon 12-12-2022 BASO # 0.0 103/ul Normal 0.0-0.1 [facility] Comment on above: Performed By: #### C BC #### [facility] [address] [address] [address] Rashmi Nolan Basophils/100 WBC (Bld) 0.6 % Normal 0.2-2.0 [facility] Comment on above: Performed By: #### C BC #### [facility] [address] [place] [address] Dr. Rashmi Nolan EO # 0.3 103/ul Normal 0.0-0.7 [facility] Comment on above: Performed By: #### C BC #### [facility] [address] [place] [address] Dr. Rashmi Nolan Eosinophils/100 WBC (Bld) 7.6 % Critically high 0.9-7.0 [facility] Comment on above: Performed By: #### C BC #### [facility] [address] [place] [address] Dr. Rashmi Nolan Erythrocyte distribution width (RBC) [Ratio] 16.4 % Critically high 11.0-15.0 [facility] Comment on above: Performed By: #### C BC #### [facility] [address] [place] [address] Dr. Rashmi Nolan Hematocrit (Bld) [Volume fraction] 27.2 % Critically low 42.0-54.0 [facility] Comment on above: Performed By: #### C BC #### [facility] [address] [place] [address] Dr. Rashmi Nolan Hemoglobin (Bld) [Mass/Vol] 9.1 g/dL Critically low 14.0-18.0 [facility] Comment on above: Performed By: #### C BC #### [facility] [address] [place] [address] Dr. Rashmi Nolan IG # 0.01 10e3/ul Normal 0.00-0.03 [facility] Comment on above: Performed By: #### C BC #### [facility] [address] [place] [address] Dr. Rashmi Nolan IG % 0.3 % Normal 0.0-0.5 [facility] Comment on above: Performed By: #### C BC #### [facility] [address] [place] [address] Dr. Rashmi Nolan LYMPH # 0.9 103/ul Critically low 1.2-3.8 [facility] Comment on above: Performed By: #### C BC #### [facility] [address] [place] [address] Dr. Rashmi Nolan Lymphocytes/100 WBC (Bld) 25.3 % Normal 20.5-60.0 [facility] Comment on above: Performed By: #### C BC #### [facility] [address] [place] [address] Dr. Rashmi Nolan MANUAL DIFF REQ NO Normal [facility] Comment on above: Performed By: #### C BC #### [facility] [address] [place] [address] Dr. Rashmi Nolan MCH (RBC) [Entitic mass] 33.0 pg Normal 25.9-34.0 [facility] Comment on above: Performed By: #### C BC #### [facility] [address] [place] [address] Dr. Rashmi Nolan MCHC (RBC) [Mass/Vol] 33.5 g/dL Normal 29.9-35.2 [facility] Comment on above: Performed By: #### C BC #### [facility] [address] [place] [address] Dr. Rashmi Nolan MCV (RBC) [Entitic vol] 98.6 fL Critically high 80.0-94.0 [facility] Comment on above: Performed By: #### C BC #### [facility] [address] [place] [address] Dr. Rashmi Nolan MONO # 0.3 103/ul Normal 0.3-0.8 [facility] Comment on above: Performed By: #### C BC #### [facility] [address] [place] [address] Dr. Rashmi Nolan Monocytes/100 WBC (Bld) 8.1 % Normal 1.7-12.0 [facility] Comment on above: Performed By: #### C BC #### [facility] [address] [place] [address] Dr. Rashmi Nolan NEUT # 2.0 103/ul Normal 1.4-6.5 [facility] Comment on above: Performed By: #### C BC #### [facility] [address] [place] [address] Dr. Rashmi Nolan Neutrophils/100 WBC (Bld) 58.1 % Normal 43.0-75.0 [facility] Comment on above: Performed By: #### C BC #### [facility] [address] [place] [address] Dr. Rashmi Nolan Platelet mean volume (Bld) [Entitic vol] 10.0 fL Normal 9.5-13.5 [facility] Comment on above: Performed By: #### C BC #### [facility] [address] [place] [address] Dr. Rashmi Nolan PLT 147 103/ul Critically low 150-450 [facility] Comment on above: Performed By: #### C BC #### [facility] [address] [place] [address] Dr. Rashmi Nolan RBC 2.76 106/ul Critically low 4.70-6.10 [facility] Comment on above: Performed By: #### C BC #### [facility] [address] [place] [address] Dr. Rashmi Nolan WBC 3.4 103/ul Critically low 4.0-11.0 [facility] Comment on above: Performed By: #### C BC #### [facility] [address] [place] [address] Dr. Rashmi Nolan BASO # 0.0 103/ul Normal 0.0-0.1 [facility] Comment on above: Performed By: #### C BC #### [facility] [address] [place] [address] Dr. Rashmi Nolan Basophils/100 WBC (Bld) 0.6 % Normal 0.2-2.0 [facility] Comment on above: Performed By: #### C BC #### [facility] [address] [place] [address] Dr. Rashmi Nolan EO # 0.2 103/ul Normal 0.0-0.7 [facility] Comment on above: Performed By: #### C BC #### [facility] [address] [place] [address] Dr. Rashmi Nolan Eosinophils/100 WBC (Bld) 6.6 % Normal 0.9-7.0 [facility] Comment on above: Performed By: #### C BC #### [facility] [address] [place] [address] Dr. Rashmi Nolan Erythrocyte distribution width (RBC) [Ratio] 16.4 % Critically high 11.0-15.0 [facility] Comment on above: Performed By: #### C BC #### [facility] [address] [place] [address] Dr. Rashmi Nolan Hematocrit (Bld) [Volume fraction] 26.1 % Critically low 42.0-54.0 [facility] Comment on above: Performed By: #### C BC #### [facility] [address] [place] [address] Dr. Rashmi Nolan Hemoglobin (Bld) [Mass/Vol] 8.5 g/dL Critically low 14.0-18.0 [facility] Comment on above: Result Comment: rcvd . blood Performed By: #### C BC #### [facility] [address] [place] [address] Dr. Rashmi Nolan IG # 0.01 10e3/ul Normal 0.00-0.03 [facility] Comment on above: Performed By: #### C BC #### [facility] [address] [place] [address] Dr. Rashmi Nolan IG % 0.3 % Normal 0.0-0.5 [facility] Comment on above: Performed By: #### C BC #### [facility] [address] [place] [address] Dr. Rashmi Nolan LYMPH # 0.7 103/ul Critically low 1.2-3.8 [facility] Comment on above: Performed By: #### C BC #### [facility] [address] [place] [address] Dr. Rashmi Nolan Lymphocytes/100 WBC (Bld) 20.2 % Critically low 20.5-60.0 [facility] Comment on above: Performed By: #### C BC #### [facility] [address] [place] [address] Dr. Rashmi Nolan MANUAL DIFF REQ NO Normal [facility] Comment on above: Performed By: #### C BC #### [facility] [address] [place] [address] Dr. Rashmi Nolan MCH (RBC) [Entitic mass] 32.7 pg Normal 25.9-34.0 [facility] Comment on above: Performed By: #### C BC #### [facility] [address] [place] [address] Dr. Rashmi Nolan MCHC (RBC) [Mass/Vol] 32.6 g/dL Normal 29.9-35.2 [facility] Comment on above: Performed By: #### C BC #### [facility] [address] [place] [address] Dr. Rashmi Nolan MCV (RBC) [Entitic vol] 100.4 fL Critically high 80.0-94.0 [facility] Comment on above: Performed By: #### C BC #### [facility] [address] [place] [address] Dr. Rashmi Nolan MONO # 0.3 103/ul Normal 0.3-0.8 [facility] Comment on above: Performed By: #### C BC #### [facility] [address] [place] [address] Dr. Rashmi Nolan Monocytes/100 WBC (Bld) 7.7 % Normal 1.7-12.0 [facility] Comment on above: Performed By: #### C BC #### [facility] [address] [place] [address] Dr. Rashmi Nolan NEUT # 2.3 103/ul Normal 1.4-6.5 [facility] Comment on above: Performed By: #### C BC #### [facility] [address] [address] [address] Rashmi Nolan Neutrophils/100 WBC (Bld) 64.6 % Normal 43.0-75.0 [facility] Comment on above: Performed By: #### C BC #### [facility] [address] [place] [address] Dr. Rashmi Nolan Platelet mean volume (Bld) [Entitic vol] 9.9 fL Normal 9.5-13.5 [facility] Comment on above: Performed By: #### C BC #### [facility] [address] [place] [address] Dr. Rashmi Nolan PLT 130 103/ul Critically low 150-450 [facility] Comment on above: Performed By: #### C BC #### [facility] [address] [place] [address] Dr. Rashmi Nolan RBC 2.60 106/ul Critically low 4.70-6.10 [facility] Comment on above: Performed By: #### C BC #### [facility] [address] [place] [address] Dr. Rashmi Nolan WBC 3.6 103/ul Critically low 4.0-11.0 [facility] Comment on above: Performed By: #### C BC #### [facility] [address] [place] [address] Dr. Rashmi Nolan PRBC LEUKOREDUCEDon 12-13-19 ABO and Rh group Nom (Bld) Cross Match Result Compatible Unit Blood Type O Pos Unit Number [id number] Status Information Issued Product ID Red Blood Cells Product Code [id number] Issue Date/Time [id number] Cross Match Result Compatible Unit Blood Type O Pos Unit Number [id number] Status Information Issued Product ID Red Blood Cells Product Code [id number] Issue Date/Time [id number] Normal [facility] Comment on above: Performed By: #### C BC #### [facility] [address] [place] [address] Dr. Rashmi Nolan PROF CHEM 8 (BAS METB)on Anion gap [Moles/Vol] 14.8 mmol/L Normal [facility] Comment on above: Performed By: #### B MP #### [facility] [address] [place] [address] Dr. Rashmi Nolan Calcium [Mass/Vol] 9.2 mg/dL Normal 8.5-10.1 [place] Comment on above: Performed By: #### B MP #### [facility] [address] [place] [address] Dr. Rashmi Nolan Chloride [Moles/Vol] 110 mmol/L Critically high 98-107 [facility] Comment on above: Performed By: #### B MP #### [facility] [address] [place] [address] Dr. Rashmi Nolan CO2 [Moles/Vol] 23.5 mmol/L Normal 21.0-32.0 [facility] Comment on above: Performed By: #### B MP #### [facility] [address] [place] [address] Dr. Rashmi Nolan Creatinine [Mass/Vol] 1.77 mg/dL Critically high 0.70-1.30 [facility] Comment on above: Performed By: #### B MP #### [facility] [address] [place] [address] Dr. Rashmi Nolan EGFR-AF ZIMBABWEAN 44 mL/min/1.73m2 Critically low >=60 [facility] Comment on above: Performed By: #### B MP #### [facility] [address] [place] [address] Dr. Rashmi Nolan EGFR-NON AF ZIMBABWEAN 36 mL/min/1.73m2 Critically low >=60 [facility] Comment on above: Performed By: #### B MP #### [facility] [address] [place] [address] Dr. Rashmi Nolan Glucose [Mass/Vol] 103 mg/dL Normal 74-106 [place] Comment on above: Performed By: #### B MP #### [facility] [address] [place] [address] Dr. Rashmi Nolan Potassium [Moles/Vol] 5.3 mmol/L Critically high 3.5-5.1 [facility] Comment on above: Performed By: #### B MP #### [facility] [address] [place] [address] Dr. Rashmi Nolan Sodium [Moles/Vol] 143 mmol/L Normal 136-145 [place] Comment on above: Performed By: #### B MP #### [facility] [address] [place] [address] Dr. Rashmi Nolan Urea nitrogen [Mass/Vol] 54.0 mg/dL Critically high 7.0-18.0 [facility] Comment on above: Performed By: #### B MP #### [facility] [address] [place] [address] Dr. Rashmi Nolan Urea nitrogen/Creatinine [Mass ratio] 30.5 mg/mg Normal [facility] Comment on above: Performed By: #### B MP #### [facility] [address] [place] [address] Dr. Rashmi Nolan CBC AUTO DIFFon 12-11-2022 BASO # 0.0 103/ul Normal 0.0-0.1 [facility] Comment on above: Performed By: #### C BC #### [facility] [address] [place] [address] Dr. Rashmi Nolan Basophils/100 WBC (Bld) 0.4 % Normal 0.2-2.0 [facility] Comment on above: Performed By: #### C BC #### [facility] [address] [place] [address] Dr. Rashmi Nolan EO # 0.2 103/ul Normal 0.0-0.7 [facility] Comment on above: Performed By: #### C BC #### [facility] [address] [place] [address] Dr. Rashmi Nolan Eosinophils/100 WBC (Bld) 5.2 % Normal 0.9-7.0 [facility] Comment on above: Performed By: #### C BC #### [facility] [address] [place] [address] Dr. Rashmi Nolan Erythrocyte distribution width (RBC) [Ratio] 14.6 % Normal 11.0-15.0 [facility] Comment on above: Performed By: #### C BC #### [facility] [address] [place] [address] Dr. Rashmi Nolan Hematocrit (Bld) [Volume fraction] 23.7 % Critically low 42.0-54.0 [facility] Comment on above: Performed By: #### C BC #### [facility] [address] [place] [address] Dr. Rashmi Nolan Hemoglobin (Bld) [Mass/Vol] 7.8 g/dL Critically low 14.0-18.0 [facility] Comment on above: Performed By: #### C BC #### [facility] [address] [place] [address] Dr. Rashmi Nolan IG # 0.01 10e3/ul Normal 0.00-0.03 [facility] Comment on above: Performed By: #### C BC #### [facility] [address] [place] [address] Dr. Rashmi Nolan IG % 0.2 % Normal 0.0-0.5 [facility] Comment on above: Performed By: #### C BC #### [facility] [address] [place] [address] Dr. Rashmi Nolan LYMPH # 0.9 103/ul Critically low 1.2-3.8 [facility] Comment on above: Performed By: #### C BC #### [facility] [address] [place] [address] Dr. Rashmi Nolan Lymphocytes/100 WBC (Bld) 19.6 % Critically low 20.5-60.0 [facility] Comment on above: Performed By: #### C BC #### [facility] [address] [place] [address] Dr. Rashmi Nolan MANUAL DIFF REQ NO Normal [facility] Comment on above: Performed By: #### C BC #### [facility] [address] [place] [address] Dr. Rashmi Nolan MCH (RBC) [Entitic mass] 34.7 pg Critically high 25.9-34.0 [facility] Comment on above: Performed By: #### C BC #### [facility] [address] [place] [address] Dr. Rashmi Nolan MCHC (RBC) [Mass/Vol] 32.9 g/dL Normal 29.9-35.2 [facility] Comment on above: Performed By: #### C BC #### [facility] [address] [place] [address] Dr. Rashmi Nolan MCV (RBC) [Entitic vol] 105.3 fL Critically high 80.0-94.0 [facility] Comment on above: Performed By: #### C BC #### [facility] [address] [place] [address] Dr. Rashmi Nolan MONO # 0.3 103/ul Normal 0.3-0.8 [facility] Comment on above: Performed By: #### C BC #### [facility] [address] [place] [address] Dr. Rashmi Nolan Monocytes/100 WBC (Bld) 7.2 % Normal 1.7-12.0 [facility] Comment on above: Performed By: #### C BC #### [facility] [address] [place] [address] Dr. Rashmi Nolan NEUT # 3.0 103/ul Normal 1.4-6.5 [facility] Comment on above: Performed By: #### C BC #### [facility] [address] [place] [address] Dr. Rashmi Nolan Neutrophils/100 WBC (Bld) 67.4 % Normal 43.0-75.0 [facility] Comment on above: Performed By: #### C BC #### [facility] [address] [place] [address] Dr. Rashmi Nolan Platelet mean volume (Bld) [Entitic vol] 9.8 fL Normal 9.5-13.5 [facility] Comment on above: Performed By: #### C BC #### [facility] [address] [address] [address] Rashmi Nolan PLT 156 103/ul Normal 150-450 [facility] Comment on above: Performed By: #### C BC #### [facility] [address] [address] [address] Rashmi Nolan RBC 2.25 106/ul Critically low 4.70-6.10 [facility] Comment on above: Performed By: #### C BC #### [facility] [address] [address] [address] Rashmi Nolan WBC 4.5 103/ul Normal 4.0-11.0 [facility] Comment on above: Performed By: #### C BC #### [facility] [address] [address] [address] Rashmi Nolan CHEMISTRYOrdered By: SYSTEM SYSTEM on 12-11-2022 Iron binding capacity [Mass/Vol] 417 ug/dL High 250 - 400 mcg/dL [facility] Remisol Transferrin [Mass/Vol] 298 mg/dL Normal 200 - 370 mg/dL [facility] Remisol Consent Formson 12-11-2022 Consent Forms [id number] .[id number] [facility] HEMATOLOGYOrdered By: SYSTEM SYSTEM on 12-11-2022 Basophils/100 [...] [facility] HemeAutoSS MICRO OTHER TESTSOrdered By: Daniella Aguilar on 12-11-2022 Occult Bld Stl Positive *ABN* (12/11/22 12:14 PM) Invalid Interpretation Code Negative [facility] Sero PROF 14(COMP METB)on 023 Albumin [Mass/Vol] 3.8 g/dL Normal 3.4-5.0 [place] Comment on above: Performed By: #### B MP #### [facility] [address] [address] [address] Rashmi Nolan Albumin/Globulin [Mass ratio] 1.1 {ratio} Normal [facility] Comment on above: Performed By: #### B MP #### [facility] [address] [address] [address] Rashmi Nolan ALP [Catalytic activity/Vol] 178 U/L Critically high 46-116 [facility] Comment on above: Performed By: #### B MP #### [facility] [address] [place] [address] Dr. Rashmi Nolan ALT [Catalytic activity/Vol] 17 U/L Normal 16-63 [facility] Comment on above: Performed By: #### B MP #### [facility] [address] [address] [address] Rashmi Nolan Anion gap [Moles/Vol] 15.6 mmol/L Normal [facility] Comment on above: Performed By: #### B MP #### [facility] [address] [address] [address] Rashmi Nolan AST [Catalytic activity/Vol] 12 U/L Critically low 15-37 [facility] Comment on above: Performed By: #### B MP #### [facility] [address] [address] [address] Rashmi Nolan Bilirubin [Mass/Vol] 0.2 mg/dL Normal 0.2-1.0 [facility] Comment on above: Performed By: #### B MP #### [facility] [address] [address] [address] Rashmi Nolan Calcium [Mass/Vol] 9.5 mg/dL Normal 8.5-10.1 [place] Comment on above: Performed By: #### B MP #### [facility] [address] [address] [address] Rashmi Nolan Chloride [Moles/Vol] 109 mmol/L Critically high 98-107 [facility] Comment on above: Performed By: #### B MP #### [facility] [address] [address] [address] Rashmi Nolan CO2 [Moles/Vol] 22.5 mmol/L Normal 21.0-32.0 [facility] Comment on above: Performed By: #### B MP #### [facility] [address] [address] [address] Rashmi Nolan Creatinine [Mass/Vol] 2.11 mg/dL Critically high 0.70-1.30 [facility] Comment on above: Performed By: #### B MP #### [facility] [address] [address] [address] Rashmi Nolan EGFR-AF ZIMBABWEAN 36 mL/min/1.73m2 Critically low >=60 [facility] Comment on above: Performed By: #### B MP #### [facility] [address] [address] [address] Rashmi Nolan EGFR-NON AF ZIMBABWEAN 30 mL/min/1.73m2 Critically low >=60 [facility] Comment on above: Performed By: #### B MP #### [facility] [address] [address] [address] Rashmi Nolan Globulin (S) [Mass/Vol] 3.4 g/dL Normal [facility] Comment on above: Performed By: #### B MP #### [facility] [address] [address] [address] Rashmi Nolan Glucose [Mass/Vol] 115 mg/dL Critically high 74-106 [facility] Comment on above: Performed By: #### B MP #### [facility] [address] [address] [address] Rashmi Nolan Potassium [Moles/Vol] 5.1 mmol/L Normal 3.5-5.1 [facility] Comment on above: Performed By: #### B MP #### [facility] [address] [address] [address] Rashmi Nolan Protein [Mass/Vol] 7.2 g/dL Normal 6.4-8.[address] [facility] Comment on above: Performed By: #### B MP #### [facility] [address] [address] [address] Rashmi Nolan Sodium [Moles/Vol] 142 mmol/L Normal 136-[address] [facility] Comment on above: Performed By: #### B MP #### [facility] [address] [address] [address] Rashmi Nolan Urea nitrogen [Mass/Vol] 57.0 mg/dL Critically high 7.0-18.0 [facility] Comment on above: Performed By: #### B MP #### [facility] [address] [place] [address] Dr. Rashmi Nolan Urea nitrogen/Creatinine [Mass ratio] 27.0 mg/mg Normal [facility] Comment on above: Performed By: #### B MP #### [facility] [address] [place] [address] Dr. Rashmi Nolan PROTIMEon 12-11-2022 INR Coag (PPP) [Relative time] 1.95 {INR} Normal [facility] Comment on above: Performed By: #### P T, PTT #### [facility] [address] [place] [address] Dr. Rashmi Nolan INR GUIDELINES SEE BELOW Normal [facility] Comment on above: Result Comment: ENOC RED INR: 2.0 - 3.0 CONDITIONS NOT LISTED BELOW 2.5 - 3.5 FOR PROSTHETIC HEART VALVE REPLACEMENT 2.5 - 3.5 RECURRENT THROMBOSIS Performed By: #### P T, PTT #### [facility] [address] [place] [address] Dr. Rashmi Nolan PT Coag (PPP) [Time] 19.9 s Critically high 9.0-11.6 [facility] Comment on above: Performed By: #### P T, PTT #### [facility] [address] [place] [address] Dr. Rashmi Nolan PTTon 12-11-2022 aPTT Coag (Bld) [Time] 30.3 s Normal 22.3-36.2 [facility] Comment on above: Performed By: #### P T, PTT #### [facility] [address] [address] [address] Rashmi Nolan TYPE AND SCREENon 12-11-2022 TYPE AND SCREEN Negative Normal [facility] Comment on above: Performed By: #### C BC #### [facility] [address] [id number] Rashmi Nolan XR CHEST 1 Von [...] STEPHANIE LIU Date: 2022-12-11 21:04 Normal [facility] Inpatient Patient Summaryon 12-10-2022 [place]patient [place] [address] Patient Discharge Instructions Name: RY LERNER : 1935 Patient Address: [address] [place] [address] Primary Care Provider: Name: John Nieves MD After you are discharged if you find you have any questions, please, call [phone] ext [phone] to speak to a nurse. Discharge Diagnosis: [...] drug addiction problems; contact the [facility] 18/02 Crisis Hotline -Text 4HOPE to 050795. If you received any narcotics, sedation, or [...] business decisions or sign any legal documents [facility] would like to thank you for allowing us to assist you with your healthcare needs. The following includes patient education materials and information regarding your injury/illness. RY LERNER has been given the following list of follow-up instructions, prescriptions, and patient education materials: Follow-up Instructions With: Address: When: Ward Martinez [address] [place] [address], [address] [place] [id number] Business (1) 12/18/2022 1:30 PM Medications During [...] 3. 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 Change [...] or concerns, please call the office at [phone] 7. Follow up as scheduled Viruses or [...] and Prevention Septe (more content not included)... [facility] Preoperative Recordon 0 12-10-2022 [facility] Preoperative Record [facility] Pre-Op Record Summary Primary Physician: Ward Martinez DO Finalized Date/Time: 12/10/22 15:29:41 Pt. Name: RY LERNER/Sex: 1935 MALE Med Rec #: [id number] Physician: Ward Martinez DO Financial #: [id number] Pt. Type: D Room/Bed: / Admit/Disch: 12/10/22 [...] consent correct. General Comments: pt arrives to [facility] ambulatory. denies CP,cough,cold, COVID like symtpoms. 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 Finalized By: Maile Palmer RN Document Signatures Signed By: Maile Palmer RN 12/10/22 15:29 [facility] Patient Handouton 12-10-[address] 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 Keep your hand elevated above your elbow for the first 24 hours after surgery 2. Wiggle your fingers frequently while awake 3. 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 Change [...] or concerns, please call the office at [phone] 7. Follow up as scheduled [facility] MAGNESIUMon 11-06-2022 Magnesium [Mass/Vol] 2.2 mg/dL Normal 1.8-2.4 [facility] Comment on above: Performed By: #### B MP, MG #### [facility] [address] [place] [address] Dr. Rashmi Nolan PROF CHEM 8 (BAS METB)on Anion gap [Moles/Vol] 15.0 mmol/L Normal [facility] Comment on above: Performed By: #### B MP, MG #### [facility] [address] [place] [address] Dr. Rashmi Nolan Calcium [Mass/Vol] 10.0 mg/dL Normal 8.5-10.1 [place] Comment on above: Performed By: #### B MP, MG #### [facility] [address] [place] [address] Dr. Rashmi Nolan Chloride [Moles/Vol] 108 mmol/L Critically high 98-107 [facility] Comment on above: Performed By: #### B MP, MG #### [facility] [address] [place] [address] Dr. Rashmi Nolan CO2 [Moles/Vol] 25.4 mmol/L Normal 21.0-32.0 [facility] Comment on above: Performed By: #### B MP, MG #### [facility] [address] [place] [address] Dr. Rashmi Nolan Creatinine [Mass/Vol] 1.98 mg/dL Critically high 0.70-1.30 [facility] Comment on above: Performed By: #### B MP, MG #### [facility] [address] [place] [address] Dr. Rashmi Nolan EGFR-AF ZIMBABWEAN 39 mL/min/1.73m2 Critically low >=60 [facility] Comment on above: Performed By: #### B MP, MG #### [facility] [address] [place] [address] Dr. Rashmi Nolan EGFR-NON AF ZIMBABWEAN 32 mL/min/1.73m2 Critically low >=60 [facility] Comment on above: Performed By: #### B MP, MG #### [facility] [address] [place] [address] Dr. Rashmi Nolan Glucose [Mass/Vol] 99 mg/dL Normal 74-[address] [facility] Comment on above: Performed By: #### B MP, MG #### [facility] [address] [place] [address] Dr. Rashmi Nolan Potassium [Moles/Vol] 5.4 mmol/L Critically high 3.5-5.1 [facility] Comment on above: Performed By: #### B MP, MG #### [facility] [address] [place] [address] Dr. Rashmi Nolan Sodium [Moles/Vol] 143 mmol/L Normal 136-145 [place] Comment on above: Performed By: #### B MP, MG #### [facility] [address] [place] [address] Dr. Rashmi Nolan Urea nitrogen [Mass/Vol] 52.0 mg/dL Critically high 7.0-18.0 [facility] Comment on above: Performed By: #### B MP, MG #### [facility] [address] [place] [address] Dr. Rashmi Nolan Urea nitrogen/Creatinine [Mass ratio] 26.3 mg/mg Normal [facility] Comment on above: Performed By: #### B MP, MG #### [facility] [address] [place] [address] Dr. Rashmi Nolan VIT B12 AND FOLATEon 023 Cobalamin (Vitamin B12) [Mass/Vol] 514.0 pg/mL Normal 193.0-986.0 [facility] Comment on above: Performed By: #### B MP #### [facility] [address] [place] [address] Dr. Rashmi Nolan FOLATE 10.00 ng/mL Normal 8.60-58.90 [facility] Comment on above: Performed By: #### B MP #### [facility] [address] [place] [address] Dr. Rashmi Nolan CBC AUTO DIFFon 08-16-2022 BASO # 0.0 103/ul Normal 0.0-0.1 [facility] Comment on above: Performed By: #### B MP #### [facility] [address] [place] [address] Dr. Rashmi Nolan Basophils/100 WBC (Bld) 0.8 % Normal 0.2-2.0 [facility] Comment on above: Performed By: #### B MP #### [facility] [address] [place] [address] Dr. Rashmi Nolan EO # 0.3 103/ul Normal 0.0-0.7 [facility] Comment on above: Performed By: #### B MP #### [facility] [address] [place] [address] Dr. Rashmi Nolan Eosinophils/100 WBC (Bld) 7.8 % Critically high 0.9-7.0 [facility] Comment on above: Performed By: #### B MP #### [facility] [address] [place] [address] Dr. Rashmi Nolan Erythrocyte distribution width (RBC) [Ratio] 13.2 % Normal 11.0-15.0 [facility] Comment on above: Performed By: #### B MP #### [facility] [address] [place] [address] Dr. Rashmi Nolan Hematocrit (Bld) [Volume fraction] 33.2 % Critically low 42.0-54.0 [facility] Comment on above: Performed By: #### B MP #### [facility] [address] [place] [address] Dr. Rashmi Nolan Hemoglobin (Bld) [Mass/Vol] 10.8 g/dL Critically low 14.0-18.0 [facility] Comment on above: Performed By: #### B MP #### [facility] [address] [place] [address] Dr. Rashmi Nolan IG # 0.01 10e3/ul Normal 0.00-0.03 [facility] Comment on above: Performed By: #### B MP #### [facility] [address] [place] [address] Dr. Rahsmi Nolan IG % 0.3 % Normal 0.0-0.5 [facility] Comment on above: Performed By: #### B MP #### [facility] [address] [place] [address] Dr. Rashmi Nolan LYMPH # 1.0 103/ul Critically low 1.2-3.8 [facility] Comment on above: Performed By: #### B MP #### [facility] [address] [address] [address] Rashmi Nolan Lymphocytes/100 WBC (Bld) 24.7 % Normal 20.5-60.0 [facility] Comment on above: Performed By: #### B MP #### [facility] [address] [address] [address] Rashmi Nolan MANUAL DIFF REQ NO Normal [facility] Comment on above: Performed By: #### B MP #### [facility] [address] [place] [address] Dr. Rashmi Nolan MCH (RBC) [Entitic mass] 33.0 pg Normal 25.9-34.0 [facility] Comment on above: Performed By: #### B MP #### [facility] [address] [place] [address] Dr. Rashmi Nolan MCHC (RBC) [Mass/Vol] 32.5 g/dL Normal 29.9-35.2 [facility] Comment on above: Performed By: #### B MP #### [facility] [address] [place] [address] Dr. Rashmi Nolan MCV (RBC) [Entitic vol] 101.5 fL Critically high 80.0-94.0 [facility] Comment on above: Performed By: #### B MP #### [facility] [address] [place] [address] Dr. Rashmi Nolan MONO # 0.4 103/ul Normal 0.3-0.8 [facility] Comment on above: Performed By: #### B MP #### [facility] [address] [place] [address] Dr. Rashmi Nolan Monocytes/100 WBC (Bld) 10.7 % Normal 1.7-12.0 [facility] Comment on above: Performed By: #### B MP #### [facility] [address] [place] [address] Dr. Rashmi Nolan NEUT # 2.1 103/ul Normal 1.4-6.5 [facility] Comment on above: Performed By: #### B MP #### [facility] [address] [address] [address] Rashmi Nolan Neutrophils/100 WBC (Bld) 55.7 % Normal 43.0-75.0 [facility] Comment on above: Performed By: #### B MP #### [facility] [address] [address] [address] Rashmi Nolan Platelet mean volume (Bld) [Entitic vol] 10.5 fL Normal 9.5-13.5 [facility] Comment on above: Performed By: #### B MP #### [facility] [address] [address] [address] Rashmi Nolan PLT 160 103/ul Normal 150-450 [facility] Comment on above: Performed By: #### B MP #### [facility] [address] [place] [address] Dr. Rashmi Nolan RBC 3.27 106/ul Critically low 4.70-6.10 [facility] Comment on above: Performed By: #### B MP #### [facility] [address] [address] [address] Rashmi Nolan WBC 3.8 103/ul Critically low 4.0-11.0 [facility] Comment on above: Performed By: #### B MP #### [facility] [address] [place] [address] Dr. Rashmi Nolan LIPID PROFILEon 08-16-2022 CHOL-HDL RATIO NORM SEE BELOW Normal [facility] Comment on above: Result Comment: 3.3 - 4.4 LOW RISK 4.4 - 7.1 AVERAGE RISK 7.1 - 11.0 MODERATE RISK >11.0 HIGH RISK Performed By: #### B MP #### [facility] [address] [address] Dr. Rashmi Nolan Cholesterol [Mass/Vol] 166 mg/dL Normal <=200 [facility] Comment on above: Performed By: #### B MP #### [facility] [address] [address] [address] Rashmi Nolan Cholesterol in HDL [Mass/Vol] 42 mg/dL Normal 40-60 [facility] Comment on above: Performed By: #### B MP #### [facility] [address] [address] [address] Rashmi Nolan Cholesterol in LDL [Mass/Vol] 110.4 mg/dL Normal [facility] Comment on above: Performed By: #### B MP #### [facility] [address] [address] [address] Rashmi Nolan Cholesterol.total/Cho lesterol in HDL [Mass ratio] 4.0 {ratio} Normal [facility] Comment on above: Performed By: #### B MP #### [facility] [address] [address] [address] Rashmi Nolan HDL NORMAL > or = 60 mg/dl - LO W CARDIOVASCULAR RISK <40 mg/dl - HIGH CARDIOVASCULAR RISK Normal [facility] Comment on above: Performed By: #### B MP #### [facility] [address] [address] [address] Rashmi Nolan LDL CALC NORMAL SEE BELOW Normal [facility] Comment on above: Result Comment: <100 mg/dl OPTIMAL 100 - 129 mg/dl NEAR OR ABOVE OPTIMAL 130 - 159 mg/dl BORDERLINE HIGH 160 - 189 mg/dl HIGH >190 mg/dl VERY HIGH Performed By: #### B MP #### [facility] [address] [address] [address] Rashmi Nolan Triglyceride [Mass/Vol] 68 mg/dL Normal <=150 [facility] Comment on above: Performed By: #### B MP #### [facility] [address] [address] [address] Rashmi Nolan VLDL CALC 13.6 mg/dL Normal [facility] Comment on above: Performed By: #### B MP #### [facility] [address] [address] [address] Rashmi Nolan PROF 14(COMP METB)on 023 Albumin [Mass/Vol] 3.9 g/dL Normal 3.4-5.0 [place] Comment on above: Performed By: #### B MP #### [facility] [address] [place] [address] Dr. Rashmi Nolan Albumin/Globulin [Mass ratio] 1.1 {ratio} Normal [facility] Comment on above: Performed By: #### B MP #### [facility] [address] [place] [address] Dr. Rashmi Nolan ALP [Catalytic activity/Vol] 190 U/L Critically high 46-116 [facility] Comment on above: Performed By: #### B MP #### [facility] [address] [address] [address] Rashmi Nolan ALT [Catalytic activity/Vol] 15 U/L Critically low 16-63 [facility] Comment on above: Performed By: #### B MP #### [facility] [address] [place] [address] Dr. Rashmi Nolan Anion gap [Moles/Vol] 15.2 mmol/L Normal [facility] Comment on above: Performed By: #### B MP #### [facility] [address] [place] [address] Dr. Rashmi Nolan AST [Catalytic activity/Vol] 17 U/L Normal 15-37 [facility] Comment on above: Performed By: #### B MP #### [facility] [address] [place] [address] Dr. Rashmi Nolan Bilirubin [Mass/Vol] 0.4 mg/dL Normal 0.2-1.0 [facility] Comment on above: Performed By: #### B MP #### [facility] [address] [place] [address] Dr. Rashmi Nolan Calcium [Mass/Vol] 10.0 mg/dL Normal 8.5-10.1 [place] Comment on above: Performed By: #### B MP #### [facility] [address] [place] [address] Dr. Rashmi Nolan Chloride [Moles/Vol] 108 mmol/L Critically high 98-107 [facility] Comment on above: Performed By: #### B MP #### [facility] [address] [place] [address] Dr. Rashmi Nolan CO2 [Moles/Vol] 25.8 mmol/L Normal 21.0-32.0 [facility] Comment on above: Performed By: #### B MP #### [facility] [address] [address] [address] Rashmi Nolan Creatinine [Mass/Vol] 1.78 mg/dL Critically high 0.70-1.30 [facility] Comment on above: Performed By: #### B MP #### [facility] [address] [address] [address] Rashmi Nolan EGFR-AF ZIMBABWEAN 44 mL/min/1.73m2 Critically low >=60 [facility] Comment on above: Performed By: #### B MP #### [facility] [address] [address] [address] Rashmi Nolan EGFR-NON AF ZIMBABWEAN 36 mL/min/1.73m2 Critically low >=60 [facility] Comment on above: Performed By: #### B MP #### [facility] [address] [address] [address] Rashmi Nolan Globulin (S) [Mass/Vol] 3.7 g/dL Normal [facility] Comment on above: Performed By: #### B MP #### [facility] [address] [address] [address] Rashmi Nolan Glucose [Mass/Vol] 100 mg/dL Normal 74-[address] [facility] Comment on above: Performed By: #### B MP #### [facility] [address] [address] [address] Rashmi Nolan Potassium [Moles/Vol] 5.0 mmol/L Normal 3.5-5.1 [facility] Comment on above: Performed By: #### B MP #### [facility] [address] [address] [address] Rashmi Nolan Protein [Mass/Vol] 7.6 g/dL Normal 6.4-8.[address] [facility] Comment on above: Performed By: #### B MP #### [facility] [address] [address] [address] Rashmi Nolan Sodium [Moles/Vol] 144 mmol/L Normal 136-145 [facility] Comment on above: Performed By: #### B MP #### [facility] [address] [place] [address] Dr. Rashmi Nolan Urea nitrogen [Mass/Vol] 52.0 mg/dL Critically high 7.0-18.0 [facility] Comment on above: Performed By: #### B MP #### [facility] [address] [place] [address] Dr. Rashmi Nolan Urea nitrogen/Creatinine [Mass ratio] 29.2 mg/mg Normal [facility] Comment on above: Performed By: #### B MP #### [facility] [address] [place] [address] Dr. Rashmi Nolan PROF CHEM 8 (BAS METB)on Anion gap [Moles/Vol] 13.3 mmol/L Normal [facility] Comment on above: Performed By: #### C BC #### [facility] [address] [place] [address] Dr. Rashmi Nolan Calcium [Mass/Vol] 10.1 mg/dL Normal 8.5-10.1 [place] Comment on above: Performed By: #### C BC #### [facility] [address] [place] [address] Dr. Rashmi Nolan Chloride [Moles/Vol] 104 mmol/L Normal 98-107 [facility] Comment on above: Performed By: #### C BC #### [facility] [address] [place] [address] Dr. Rashmi Nolan CO2 [Moles/Vol] 28.7 mmol/L Normal 21.0-32.0 [facility] Comment on above: Performed By: #### C BC #### [facility] [address] [place] [address] Dr. Rashmi Nolan Creatinine [Mass/Vol] 1.87 mg/dL Critically high 0.70-1.30 [facility] Comment on above: Performed By: #### C BC #### [facility] [address] [place] [address] Dr. Rashmi Nolan EGFR-AF ZIMBABWEAN 42 mL/min/1.73m2 Critically low >=60 [facility] Comment on above: Performed By: #### C BC #### [facility] [address] [place] [address] Dr. Rashmi Nolan EGFR-NON AF ZIMBABWEAN 34 mL/min/1.73m2 Critically low >=60 [facility] Comment on above: Performed By: #### C BC #### [facility] [address] [address] [address] Rashmi Nolan Glucose [Mass/Vol] 101 mg/dL Normal 74-106 [place] Comment on above: Performed By: #### C BC #### [facility] [address] [place] [address] Dr. Rashmi Nolan Potassium [Moles/Vol] 5.0 mmol/L Normal 3.5-5.1 [facility] Comment on above: Performed By: #### C BC #### [facility] [address] [place] [address] Dr. Rashmi Nolan Sodium [Moles/Vol] 141 mmol/L Normal 136-145 [place] Comment on above: Performed By: #### C BC #### [facility] [address] [place] [address] Dr. Rashmi Nolan Urea nitrogen [Mass/Vol] 41.0 mg/dL Critically high 7.0-18.0 [facility] Comment on above: Performed By: #### C BC #### [facility] [address] [place] [address] Dr. Rashmi Nolan Urea nitrogen/Creatinine [Mass ratio] 21.9 mg/mg Normal [facility] Comment on above: Performed By: #### C BC #### [facility] [address] [place] [address] Dr. Rashmi Nolan COVID/FLU RT-PCRon 2 SARS-CoV-2 (COVID-19) RNA ETELVINA+probe Ql (Unsp spec) Positive [employer] Other COVID/FLU RT-PCR Negative [employer] Other BNPon 02-15-2022 Natriuretic peptide B (Bld) [Mass/Vol] 1653.0 pg/mL Normal <=1,800.0 [facility] Comment on above: Performed By: #### C BC #### [facility] [address] [address] [address] Rashmi Nolan PROF CHEM 8 (BAS METB)on Anion gap [Moles/Vol] 15.8 mmol/L Normal [facility] Comment on above: Performed By: #### C BC #### [facility] [address] [address] [address] Rashmi Nolan Calcium [Mass/Vol] 9.6 mg/dL Normal 8.5-10.1 [place] Comment on above: Performed By: #### C BC #### [facility] [address] [place] [address] Dr. Rashmi Nolan Chloride [Moles/Vol] 108 mmol/L Critically high 98-107 [facility] Comment on above: Performed By: #### C BC #### [facility] [address] [place] [address] Dr. Rashmi Nolan CO2 [Moles/Vol] 24.2 mmol/L Normal 21.0-32.0 [facility] Comment on above: Performed By: #### C BC #### [facility] [address] [place] [address] Dr. Rashmi Nolan Creatinine [Mass/Vol] 1.87 mg/dL Critically high 0.70-1.30 [facility] Comment on above: Performed By: #### C BC #### [facility] [address] [place] [address] Dr. Rashmi Nolan EGFR-AF ZIMBABWEAN 42 mL/min/1.73m2 Critically low >=60 [facility] Comment on above: Performed By: #### C BC #### [facility] [address] [place] [address] Dr. Rashmi Nolan EGFR-NON AF ZIMBABWEAN 34 mL/min/1.73m2 Critically low >=60 [facility] Comment on above: Performed By: #### C BC #### [facility] [address] [address] [address] Rashmi Nolan Glucose [Mass/Vol] 107 mg/dL Critically high 74-106 [facility] Comment on above: Performed By: #### C BC #### [facility] [address] [address] [address] Rashmi Nolan Potassium [Moles/Vol] 5.0 mmol/L Normal 3.5-5.1 [facility] Comment on above: Performed By: #### C BC #### [facility] [address] [address] [address] Rashmi Nolan Sodium [Moles/Vol] 143 mmol/L Normal 136-145 [place] Comment on above: Performed By: #### C BC #### [facility] [address] [address] [address] Rashmi Nolan Urea nitrogen [Mass/Vol] 28.0 mg/dL Critically high 7.0-18.0 [facility] Comment on above: Performed By: #### C BC #### [facility] [address] [address] [address] Rashmi Nolan Urea nitrogen/Creatinine [Mass ratio] 15.0 mg/mg Normal [facility] Comment on above: Performed By: #### C BC #### [facility] [address] [address] [address] Rashmi Nolan APTTon 10-13-2021 aPTT Coag (Bld) [Time] 36.7 s High 25.0-35.0 The [place] Comment on above: Result Comment: ALL RESULTS [...] PURPOSE. Performed By: #### 5 0103 #### [facility] [address] [place] [address], [facility] BASIC METABOLIC PANELon -1 8-2022 Calcium [Mass/Vol] 9.7 mg/dL Normal 8.6-10.3 [facility] Comment on above: Performed By: #### 0 0071, 29527, 87468, 96231 #### [facility] [address] [place] [address], [place] Chloride [Moles/Vol] 108 mmol/L High 98-107 [facility] Comment on above: Performed By: #### 0 0071, 85793, 06853, 26165 #### [facility] [address] [place] [address], [place] CO2 [Moles/Vol] 23 mmol/L Normal 21-31 [facility] Comment on above: Performed By: #### 0 0071, 03166, 12318, 41091 #### [facility] [address] [place] [address], [place] Creatinine [Mass/Vol] 1.98 mg/dL High 0.70-1.30 [facility] Comment on above: Performed By: #### 0 0071, 86665, 96847, 38232 #### [facility] [address] [place] [address], [facility] eGFR- 39 ml/min/1.73sq m Abnormal >60 [facility] Comment on above: Result Comment: Calc ulation may not be valid for patients over 70 years Performed By: #### 0 0071, 12289, 79240, 69609 #### [facility] [address] [place] [address], [facility] eGFR- non- 32 ml/min/1.73sq m Abnormal >60 [facility] Comment on above: Result Comment: Calc ulation may not be valid for patients over 70 years Performed By: #### 0 0071, 14294, 83320, 30262 #### [facility] [address] [place] [address], [place] Glucose [Mass/Vol] 88 mg/dL Normal 70-100 [facility] Comment on above: Performed By: #### 0 0071, 09768, 91730, 55282 #### [facility] [address] [place] [address], [facility] Potassium [Moles/Vol] 4.8 mmol/L Normal 3.5-5.1 The [place] Comment on above: Performed By: #### 0 0071, 24319, 24190, 33023 #### [facility] [address] [place] [address], [facility] Sodium [Moles/Vol] 138 mmol/L Normal 136-145 [facility] Comment on above: Performed By: #### 0 0071, 37488, 73710, 05071 #### [facility] [address] [facility] [place] [address], [facility] Urea nitrogen [Mass/Vol] 46 mg/dL High 7-25 The [place] Comment on above: Performed By: #### 0 0071, 93511, 31093, 50125 #### [facility] [address] [facility] BNP EDon 10-13-2021 Natriuretic peptide B (Bld) [Mass/Vol] 428 pg/mL High 0-100 The [place] Comment on above: Result Comment: Give n the appropriate clinical setting a BNP result of >100 pg/mL indicates congestive heart failure. Performed By: #### 3 0935 #### [facility] [address] [facility] [address], [facility] CBC W/DIFFon 10-13-2021 ABS IMM GRANS 0.0 10*3/uL Normal 0.0-0.2 [facility] Comment on above: Performed By: #### 5 0103 #### [facility] [address] [place] [address], [facility] ABS NEUTROPHILS 2.8 10*3/uL Normal 1.6-7.6 The [facility] Comment on above: Performed By: #### 5 0103 #### [facility] [address] [place] [address], [facility] Basophils (Bld) [#/Vol] 0.0 10*3/uL Normal 0.0-0.2 The [place] Comment on above: Performed By: #### 5 0103 #### [facility] [address] [place] [address], [facility] Basophils/100 WBC (Bld) 0.5 % Normal 0.0-1.0 The [place] Comment on above: Performed By: #### 5 0103 #### [facility] [address] [facility] [place] [address], [facility] Eosinophils (Bld) [#/Vol] 0.3 10*3/uL Normal 0.0-0.5 The [place] Comment on above: Performed By: #### 5 0103 #### [facility] [address] [place] [address], [facility] Eosinophils/100 WBC (Bld) 7.4 % High 0.0-6.0 The [place] Comment on above: Performed By: #### 5 0103 #### [facility] [address] [place] [address], [facility] Erythrocyte distribution width (RBC) [Ratio] 13.9 % Normal 11.5-15.0 The [place] Comment on above: Performed By: #### 5 3 #### [facility] [address] [place] [id number], [facility] Hematocrit (Bld) [Volume fraction] 33.5 % Low 39.0-50.0 The [place] Comment on above: Performed By: #### 3 #### [facility] [address] [place] [address], [facility] Hemoglobin (Bld) [Mass/Vol] 11.4 g/dL Low 13.0-17.0 The [place] Comment on above: Performed By: #### 5 0103 #### [facility] [address] IMMATURE GRANS 0.2 % Normal 0.0-1.0 [facility] Comment on above: Performed By: #### 5 0103 #### [facility] [address] [place] [address], [facility] Lymphocytes (Bld) [#/Vol] 0.9 10*3/uL Low 1.2-4.0 The [place] Comment on above: Performed By: #### 5 0103 #### [facility] [address] Lymphocytes/100 WBC (Bld) 20.1 % Normal 20.0-45.0 The [place] Comment on above: Performed By: #### 5 0103 #### [facility] [address] MCH (RBC) [Entitic mass] 33.1 pg High 27.0-33.0 The [place] Comment on above: Performed By: #### 5 0103 #### [facility] [address] MCHC (RBC) [Mass/Vol] 34.0 g/dL Normal 32.0-35.0 The [place] Comment on above: Performed By: #### 5 0103 #### [facility] [address] MCV (RBC) [Entitic vol] 97.4 fL Normal 82.0-98.0 The [place] Comment on above: Performed By: #### 5 3 #### [facility] [address] [place] [address], [facility] Monocytes (Bld) [#/Vol] 0.4 10*3/uL Normal 0.1-1.0 The [place] Comment on above: Performed By: #### 5 0103 #### [facility] [address] [place] [address], [facility] MONOS 8.4 % Normal 5.0-12.0 The [place] Comment on above: Performed By: #### 5 0103 #### [facility] [address] [place] [id number], [facility] Neutrophils/100 WBC (Bld) 63.4 % Normal 40.0-72.0 The [place] Comment on above: Performed By: #### 5 0103 #### [facility] [address] [place] [address], [facility] Nucleated RBC/100 WBC (Bld) [Ratio] 0 % Normal 0-0 The [place] Comment on above: Performed By: #### 5 0103 #### [facility] [address] [address], [facility] PLAT CNT 116 10*3/uL Low 150-400 The [facility] Comment on above: Performed By: #### 5 0103 #### [facility] [address] [place] [address], [facility] RBC (Bld) [#/Vol] 3.44 10*6/uL Low 4.20-5.70 The [facility] Comment on above: Performed By: #### 5 0103 #### [facility] [address] [place] [id number], [facility] WBC (Bld) [#/Vol] 4.43 10*3/uL Normal 4.00-10.60 The [facility] Comment on above: Performed By: #### 5 0103 #### [facility] [address] [place] [address], [facility] Cardiovascular Lab Reporton 10-13-2021 Cardiovascular Lab Report [facility] Patient Name: [facility] MR #: [id number] Physician: Royal Gandara MD Department of Service Date: 10/13/2021 Medicine Birthdate: 1935 Division of Room #: [facility] Cardiology Adult Cardiovascular Services [address] [place] [id number] Cardiovascular Laboratory Report PACEMAKER IMPLANT PROCEDURE NOTE DATE OF PROCEDURE: 10/13/2021 PERFORMING PHYSICIAN: Dr. Royal Gandara CONSENT: Patient LOCATION: EP Lab PROCEDURE PERFORMED: 1. Implantation of pacemaker ([employer]) 2. Ultrasound guided venous access INDICATIONS: [...] previously recommended a pacemaker, however, presented to [place] ED with a ventricular rate in the 30s. He was subsequently transferred over to [facility] ED for a pacemaker placement. Patient [...] using modified seldinger technique using a 5 [place] micro-puncture needle on one occasion and 0.35 wire was placed. Local infiltration of 1% Lidocaine was performed, and an incision was created in the left upper chest. Dissection was then performed using cautery down to the fascial plane above the muscle. A small pocket was created for the device. 6 [place] Safesheaths were placed over the wire. An active fixation [employer] pacing lead was then delivered through [...] immediate procedural complications were noted. Device info: [employer] Accolade MRI EL Model# L331 Serial# [id number] RV lead: Model# [id number] [id number] (59cms) Serial# [id number] Sensin.4mV Threshold: 0.6V@0.4ms Impedance: 598 Ohms POST [...] Gandara MD Date Trans: 10/13/2021 10:46 A/oscar [id number] cc: Jason Silva M.D. [address] [place] [address] [address] [facility] [id number] Normal The [place] FRESH FROZEN PLASMA 1 UNITon 10-13-2021 PRODUCT CODE 1 [id number] Normal [facility] Comment on above: Order Comment: INR: 2.88 ,PTT: 36.7 at the time of order ;Indication: Other pacemaker placement Performed By: #### 8 7001 #### [facility] [address] PRODUCT STATUS 1 RE Normal [facility] Comment on above: Order Comment: INR: 2.88 ,PTT: 36.7 at the time of order ;Indication: Other pacemaker placement Result Comment: Resu lt changed by IF on 10/19/2021 01:00. The previous value was XM. Performed By: #### 8 7001 #### [facility] [address] UNIT ABO 1 O Normal [facility] Comment on above: Order Comment: INR: 2.88 ,PTT: 36.7 at the time of order ;Indication: Other pacemaker placement Performed By: #### 8 7001 #### [facility] [address] [place] [address], [facility] UNIT ID 1 [id number] Normal [facility] Comment on above: Order Comment: INR: 2.88 ,PTT: 36.7 at the time of order ;Indication: Other pacemaker placement Performed By: #### 8 7001 #### [facility] [address] [place] [address], [facility] UNIT RH 1 Negative Normal [facility] Comment on above: Order Comment: INR: 2.88 ,PTT: 36.7 at the time of order ;Indication: Other pacemaker placement Performed By: #### 8 7001 #### [facility] [address] [place] [address], [facility] LIVER BATTERYon 10-13-2021 Albumin [Mass/Vol] 4.0 g/dL Normal 3.5-5.7 The [facility] Comment on above: Performed By: #### 0 0071, 37640, 70236, 66216 #### [facility] [address] [place] [address], [facility] ALKALINE PHOSPH 137 IU/L High 34-104 The [facility] Comment on above: Performed By: #### 0 0071, 29561, 02582, 31317 #### [facility] [address] [place] [address], [place] ALT [Catalytic activity/Vol] 29 U/L Normal 7-52 The [place] Comment on above: Performed By: #### 0 0071, 99448, 06946, 62492 #### [facility] [address] [place] [address], [place] AST [Catalytic activity/Vol] 22 U/L Normal 13-39 The [place] Comment on above: Performed By: #### 0 0071, 31649, 41213, 54652 #### [facility] [address] [place] [address], [place] Bilirubin [Mass/Vol] 0.7 mg/dL Normal 0.3-1.0 The [place] Comment on above: Performed By: #### 0 0071, 86921, 24816, 49770 #### [facility] [address] [place] [address], [place] Bilirubin.direct [Mass/Vol] 0.1 mg/dL Normal 0.0-0.2 The [place] Comment on above: Performed By: #### 0 0071, 49659, 20170, 36966 #### [facility] [address] [place] [address], [place] Protein [Mass/Vol] 6.3 g/dL Normal 6.0-8.3 The [facility] Comment on above: Performed By: #### 0 0071, 37359, [id number], [id number] #### [facility] [address] [place] [address], [facility] MAGNESIUM BLOODon 10-13-2021 Magnesium [Mass/Vol] 2.0 mg/dL Normal 1.9-2.7 [facility] [place] Comment on above: Performed By: #### 0 [id number], [id number], [id number], [id number] #### [facility] [address] [place] [address], [facility] POC SARS COV2 ANTIGEN NEGATI VEon 10-13-2021 POC SARS COV2 ANTIGEN NEG Negative Normal NEGATIVE [facility] [place] Comment on above: Result Comment: Nega tive [...] antigen from SARS-CoV-2 in direct nasopharyngeal swab (MATERIALS DIRECTOR) specimens from individuals who are suspected of [...] Accreditation. Performed By: #### 3 [id number] #### [facility] [address] [place] [address], [facility] PORTABLE CHEST 1 VIEWon 09-26 PORTABLE CHEST [address] [facility] Department of Radiology [address] [place] [address] Patient Name: RY LERNER : 1935 Sex: M Age: Race: White Pt. Location: [facility] Patient Status: E Ordered Date: [...] report. Electronically signed: Mark Aguilar. Transcribed by: [email or web address], User Resident: HUMBLE HERNANDEZ Electronically Signed by: MARK AGUILAR @ 10/13/2021 05:55 AM I personally read this/these film(s) with this resident Normal [facility] [place] Comment on above: Order Comment: evalu ate for Infiltrates PROTHROMBIN TIMEon INR Coag (PPP) [Relative time] 2.88 {INR} High 0.91-1.16 [facility] Comment on above: Result Comment: ACCC P [...] CHEST 1995;108:[id number]-246S. Performed By: #### 5 [id number], [id number] #### [facility] [address] PT Coag (PPP) [Time] 30.0 s High 12.3-14.8 [facility] Comment on above: Result Comment: ALL RESULTS MUST BE INTERPRETED WITH RESPECT TO BLOOD DRAWING ARTIFACT OR DILUTION ERROR OF ANTICOAGULANT AT THE TIME OF SAMPLING. Performed By: #### 5 [id number], [id number] #### [facility] [address] [place] [address], [facility] TROPONIN-Ion 10-13-2021 Troponin I.cardiac [Mass/Vol] 0.05 ng/mL High 0.00-0.04 [facility] [place] Comment on above: Result Comment: REFE RENCE RANGES: 0.00 - 0.04 ng/ml NORMAL 0.05 - 0.50 ng/ml INDETERMINATE > 0.50 ng/ml CONSISTENT WITH AN M.I. Performed By: #### 0 0071, [id number], [id number], [id number] #### [facility] [address] [place] [address], [facility] TYPE AND SCREENon 10-13-2021 ABO INTERPRETATION O Normal [facility] Comment on above: Performed By: #### 5 [id number] #### [facility] [address] [place] [address], [place] RH INTERPRETATION Positive Normal [facility] Comment on above: Performed By: #### 5 0103 #### [facility] [address] [place] [address], [place] Vital Signs Date Time Vital Sign Value Performing Clinician Facility 10-24-2023 15:49-0400 Heart rate 65 /min Christelle Timmis [facility] 10-24-2023 15:49-0400 SaO2% (BldA) [Mass fraction] 99 % Christelle Timmis [facility] 10-24-2023 15:48-0400 Diastolic blood pressure 73 mm[Hg] Christelle Timmis [facility] 10-24-2023 15:48-0400 Mean blood pressure 98 mm[Hg] Christelle Timmis [facility] 10-24-2023 15:48-0400 Systolic blood pressure 148 mm[Hg] Christelle Timmis [facility] 10-24-2023 15:48-0400 Respiratory rate 16 /min Christelle Timmis [facility] 10-24-2023 14:52-0400 Heart rate 61 /min Christelle Timmis [facility] 10-24-2023 14:52-0400 SaO2% (BldA) [Mass fraction] 100 % Christelle Timmis [facility] 10-24-2023 14:51-0400 Diastolic blood pressure 72 mm[Hg] Christelle Timmis [facility] 10-24-2023 14:51-0400 Mean blood pressure 101 mm[Hg] Christelle Timmis [facility] 10-24-2023 14:51-0400 Systolic blood pressure 160 mm[Hg] Christelle Timmis [facility] 10-24-2023 14:42-0400 Body temperature 97.7 [degF] Christelle Timmis [facility] 10-24-2023 14:42-0400 Diastolic blood pressure 60 mm[Hg] Christelle Timmis [facility] 10-24-2023 14:42-0400 Heart rate 60 /min Christelle Timmis [facility] 10-24-2023 14:42-0400 Mean blood pressure 83 mm[Hg] Christelle Timmis [facility] 10-24-2023 14:42-0400 Respiratory rate 15 /min Christelle Timmis [facility] 10-24-2023 14:42-0400 SaO2% (BldA) [Mass fraction] 99 % Christelle Timmis [facility] 10-24-2023 14:42-0400 Systolic blood pressure 129 mm[Hg] Christelle Timmis [facility] 10-24-2023 14:30-0400 Mean blood pressure 77 mm[Hg] Christelle Timmis [facility] 10-24-2023 14:30-0400 Respiratory rate 12 /min Christelle Timmis [facility] 10-24-2023 14:25-0400 Mean blood pressure 84 mm[Hg] Christelle Timmis [facility] 10-24-2023 14:25-0400 Respiratory rate 16 /min Christelle Timmis [facility] 10-24-2023 14:20-0400 FIO2 35 1 Christelle Timmis [facility] 10-24-2023 14:17-0400 Body temperature 97.7 [degF] Christelle Timmis [facility] 10-24-2023 14:15-0400 FIO2 100 1 Christelle Timmis [facility] 10-24-2023 14:10-0400 FIO2 100 1 Christelle Timmis [facility] 10-24-2023 14:10-0400 Respiratory rate 6 /min Christelle Timmis [facility] 10-24-2023 14:05-0400 Respiratory rate 10 /min Christelle Timmis [facility] 10-24-2023 12:46-0400 Blood Pressure Location Christelle Timmis [facility] 10-24-2023 12:46-0400 Mean blood pressure 105 mm[Hg] Christelle Timmis [facility] 10-24-2023 12:43-0400 Body temperature 97.88 [degF] Christelle Timmis [facility] 10-24-2023 12:41-0400 Blood Pressure Location Christelle Timmis [facility] 10-23-2023 13:49-0400 Body temperature 98.06 [degF] Christelle Timmis [facility] 10-23-2023 13:49-0400 Diastolic blood pressure 57 mm[Hg] Christelle Timmis [facility] 10-23-2023 13:49-0400 Heart rate 60 /min Christelle Timmis [facility] 10-23-2023 13:49-0400 Mean blood pressure 79 mm[Hg] Christelle Timmis [facility] 10-23-2023 13:49-0400 Respiratory rate 17 /min Christelle Timmis [facility] 10-23-2023 13:49-0400 SaO2% (BldA) [Mass fraction] 98 % Christelle Timmis [facility] 10-23-2023 13:49-0400 Systolic blood pressure 122 mm[Hg] Christelle Timmis [facility] 10-23-2023 13:47-0400 Diastolic blood pressure 62 mm[Hg] Christelle Timmis [facility] 10-23-2023 13:47-0400 Systolic blood pressure 107 mm[Hg] Christelle Timmis [facility] 09-30-2023 14:26-0500 Blood Pressure Location Mohamad Mouchli [facility] 09-30-2023 14:26-0500 Body temperature 95.72 [degF] Mohamad Mouchli [facility] 09-30-2023 14:26-0500 Diastolic blood pressure 57 mm[Hg] Mohamad Mouchli [facility] 09-30-2023 14:26-0500 Heart rate 60 /min Mohamad Mouchli [facility] 09-30-2023 14:26-0500 Respiratory rate 16 /min Mohamad Mouchli [facility] 09-30-2023 14:26-0500 Systolic blood pressure 114 mm[Hg] Mary Jane Blackwellmalcolmfelix [facility] 06-02-2022 14:50-0400 Body height 182.88 cm Sonja Aden Other [facility] Other 06-02-2022 14:50-0400 Body mass index (BMI) [Ratio] 29.73 kg/m2 Sonja Aden Other [facility] Other 06-02-2022 14:50-0400 Body temperature 99.6 [degF] Sonja Aden Other [facility] Other 06-02-2022 14:50-0400 Body weight 99.43 kg Sonja Aden Other [facility] Other 06-02-2022 14:50-0400 Diastolic blood pressure 54 mm[Hg] Sonja Aden Other [facility] Other 06-02-2022 14:50-0400 Respiratory rate 18 /min Sonja Aden Other [facility] Other 06-02-2022 14:50-0400 SaO2% (BldA) [Mass fraction] 95 % Sonja Aden Other [facility] Other 06-02-2022 14:50-0400 Systolic blood pressure 118 mm[Hg] Sonja Aden Other [facility] Other Encounters Encounter Date Encounter Type Care Provider Facility Start: 01-22-2024 Evaluation and management of inpatient GAIL WATKINS [place] Start: 01-22-2024 Evaluation and management of inpatient [facility] Start: 01-21-2024 ambulatory [facility] Start: 01-21-2024 End: 01-22-2024 Evaluation and management of inpatient [facility] Start: 01-14-2024 End: 01-14-2024 ambulatory [facility] Start: 01-03-2024 End: 01-03-2024 ambulatory [facility] Start: 12-04-2023 End: 12-04-2023 ambulatory [facility] Start: 12-03-2023 End: 12-03-2023 ambulatory Sheng L Brissa Facility: [facility] Start: 10-30-2023 End: 10-30-2023 ambulatory Sheng L Brissa Facility:[facility] Start: 10-30-2023 End: 10-30-2023 ambulatory [facility] Start: 10-24-2023 End: 10-24-2023 Admission to same day surgery center Christelle H Timmis [facility] Start: 10-24-2023 End: 10-24-2023 ambulatory Christelle H Timmis Facility:[facility] Start: 10-23-2023 End: 10-23-2023 ambulatory Christelle H Timmis Facility:[facility] Start: 10-23-2023 End: 10-23-2023 Patient encounter procedure Christelle H Timmis [facility] Start: 10-23-2023 End: 10-23-2023 ambulatory CHRISTELLE H TIMMIS Not Available Start: 10-02-2023 End: 10-02-2023 ambulatory Sheng L Brissa Facility:[facility] Start: 09-30-2023 End: 09-30-2023 ambulatory Mary Jane Garza Facility:[facility] Start: 09-30-2023 End: 09-30-2023 Patient encounter procedure Mary Jane Garza [facility] Start: 09-09-2023 End: 09-10-2023 ambulatory Petros Lee MD Facility:[facility] Start: 09-04-2023 ambulatory Sheng L Brissa Facility: [facility] Start: 09-03-2023 End: 09-03-2023 ambulatory Sheng L Brissa Facility:[facility] Start: 08-29-2023 End: 08-29-2023 ambulatory ADDIE A FELTER Not Available Start: 08-29-2023 Bamboo flowsheet [address] A Fel [address] WEB APPLICATION[employer] DEVELOPER-RANGE CONSERVATIONIST Work Phone: [facility] Start: 08-29-2023 Bamboo flowsheet Addie A Fel ter [employer] APPLICATIONS DEVELOPER-RANGE CONSERVATIONIST Work Phone: [facility] Start: 08-29-2023 End: 08-29-2023 Office outpatient new 30 minutes Addie A Felter [employer] DEVELOPER[employer]RANGE CONSERVATIONIST Work Phone: [facility] Comment on above: Other atopic dermati tis (Primary Dx); Seborrheic keratosis Start: 08-28-2023 End: 08-28-2023 ambulatory John Nieves Facility:[facility] Start: 07-03-2023 End: 07-03-2023 ambulatory Sheng L Brissa Facility:[facility] Start: 07-02-2023 End: 07-02-2023 ambulatory [facility] Start: 05-15-2023 End: 05-15-2023 ambulatory [facility] Start: 02-08-2023 End: 02-08-2023 ambulatory [facility] Start: 01-22-2023 End: 01-22-2023 Lab Drop off Sheng L Brissa [facility] Start: 12-31-2022 End: 12-31-2022 ambulatory [facility] Facility:[facility] Start: 12-25-2022 End: 12-26-[address] JASON SILVA . Facility:[facility] Start: 12-12-2022 End: 12-14-2022 Evaluation and management of inpatient DR JASON SILVA . Facility:[facility] Start: 12-11-2022 End: 12-11-2022 Lab Drop off Sheng Fifi Molinaab [facility] Start: 12-10-2022 End: 12-10-2022 ambulatory [facility] Facility:[facility] Start: 11-26-2022 End: 12-26-2022 ambulatory HAYWARD Joe JUNIOR Facility:[facility] Start: 11-06-2022 End: 11-07-[address] JASON SILVA . Facility:[facility] Start: 10-29-2022 End: 11-23-2022 ambulatory HAYWARD H FAWWADerik Facility:[facility] Start: 09-26-2022 End: 10-26-2022 ambulatory HAYWARD H FAWJOAQUIM Facility:[facility] Start: 08-29-2022 End: 09-26-2022 ambulatory HAYWARD H FAWJOAQUIM Facility:[facility] Start: 08-22-2022 End: 08-23-[address] JASON SILVA . Facility:[facility] Start: 08-16-2022 End: 08-17-[address] JASON SILVA . Facility:[facility] Start: 07-30-2022 End: 08-29-2022 ambulatory HAYWARD H FAWWAD Facility:[facility] Start: 07-24-2022 End: 07-25-2022 ambulatory ROYAL GANDARA Facility:[facility] Start: 06-28-2022 End: 07-29-2022 ambulatory HAYWARD H FAWWAD Facility:[facility] Start: 06-02-2022 End: 06-02-2022 ambulatory Sonja Aden Other [facility] Other Start: 06-02-2022 Office outpatient ne w 30 minutes Sonja Aden [facility] Start: 05-29-2022 End: 06-27-2022 ambulatory HAYWARD H FAWWAD Facility:[facility] Start: 04-29-2022 End: 05-28-2022 ambulatory HAYWARD H FAWWAD Facility:[facility] Start: 03-29-2022 End: 04-28-2022 ambulatory HAYWARD H FAWWAD Facility:[facility] Start: 03-20-2022 End: 03-20-2022 ambulatory [facility] PROVIDER [facility] Start: 02-26-2022 End: 03-28-2022 ambulatory HAYWARD H FAWWAD Facility:[facility] Start: 02-15-2022 End: 02-16-2022 ambulatory KELLY MORALES Facility:[facility] Start: 01-26-2022 End: 02-23-2022 ambulatory HAYWARD H FAWWAD Facility:[facility] Start: 10-13-2021 End: 10-13-2021 ambulatory UNKNOWN PROVIDER Facility:[facility] Start: 10-13-2021 End: 10-13-2021 Emergency department patient visit PHYSICIAN UNKNOWN Facility:[facility] Procedures Date Procedure Procedure Detail Performing Clinician Start: 10-30-2023 Follow-up visit Follow-up KORINA BENTLEY Start: 10-24-2023 Nasal cautery Christelle Ti mmis [...] above: Performed By: #### B MP #### [facility] [address] [place] [address] Dr. Rashmi Nolan Start: 10-13-2021 Antibody screen PHYSICI AN UNKNOWN Comment on above: Performed By: #### 5 [id number] #### [facility] [address] [place] [address], [facility] Start: 09-26-2021 Cardiac pacemaker, d evice (physical object) Sheng Lagos Start: 02-26-2011 Colonoscopy Sheng Ferro b Start: 07-29-1995 TURP syndrome (disorder) Sheng Molinaab Start: 07-29-1993 Herniated structure (morphologic abnormality) Sheng Lagos Tonsillectomy and adenoidectomy Sheng Lagos Plan of Treatment Date Care Activity Detail Author Start: 08-29-2023 End: 08-29-2023 Patient encounter procedure 08/29/2023 1:00 PM EST Office Visit [facility] [address] [place] [address] Addie Huston [employer] APPLICATIONS DEVELOPER-RANGE CONSERVATIONIST [address] [place] [address] Arrived [facility] Comment on above: Arrived Immunizations Immunization Date Immunization Notes Care Provider Fa cility 08-02-2023 zoster vaccine recombinant Mary Jane Garza [facility] 07-03-2023 influenza virus vaccine, unspecified formulation Jimmied Mosunday [facility] 07-03-2023 pneumococcal 20-aurelio nt conjugate vaccine Mohamad Mouchli [facility] 05-02-2022 influenza virus vaccine, unspecified formulation Sheng Lagos [facility] 05-02-2022 Seasonal trivalent influenza vaccine, adjuvanted, preservative free Addie Huston [employer] AP[employer]S DEVELOPER-RANGE CONSERVATIONIST Work Phone: [facility] 04-28-2021 SARS-CoV-2 (COVID-19 ) mRNA-1273 vaccine Mohamad Mouchli [facility] 09-17-2020 SARS-CoV-2 (COVID-19 ) mRNA BNT-162b2 vax Sheng Brissa [facility] Comment on above: Result Comment: 2022: [id number] 08-27-2020 SARS-CoV-2 (COVID-19 ) mRNA BNT-162b2 vax Sheng Brissa [facility] Comment on above: Result Comment: 2022: [id number] 06-13-2020 influenza virus vaccine, unspecified formulation Sheng Brissa [facility] 06-01-2019 influenza virus vaccine, unspecified formulation Sheng Brissa [facility] 04-14-2018 influenza virus vaccine, unspecified formulation Sheng Brissa [facility] 04-22-2017 influenza virus vaccine, unspecified formulation Sheng Brissa [facility] 05-01-2016 influenza virus vaccine, unspecified formulation Sheng Brissa [facility] 06-02-2015 influenza virus vaccine, unspecified formulation Sheng Brissa [facility] 05-31-2014 influenza virus vaccine, unspecified formulation Sheng Brissa [facility] 06-02-2013 influenza virus vaccine, unspecified formulation Sheng Brissa [facility] 05-29-2005 influenza, whole Sheng Brissa [facility] Payers Date Payer Category Payer Unknown [employer] 1999 Medicare [id number] 1959 Medicare [id number] 1935 Unknown [id number] 2.16.8 40.1.002568.3.579.2.647 1934 Unknown [id number] 2.16. 840.1.345469.3.579.2.732 1934 Unknown [id number] 2.16. 840.1.018887.3.579.2.732 1934 Unknown [id number] 2.16.8 40.1.171334.3.579.2.718 1934 Unknown [id number] 2.16.8 40.1.021593.3.579.2.718 1934 Unknown [id number] 2.16.84 0.1.020931.3.579.2.593 1934 Unknown [id number] 2.16.84 0.1.429981.3.579.2.593 1934 Unknown [id number] 2.16.84 0.1.043821.3.579.2.593 1934 Unknown [id number] 2.16.84 0.1.784955.3.579.2.593 1934 Unknown [id number] 2.16.84 0.1.078708.3.579.2.593 1934 Unknown [id number] 2.16.84 0.1.971476.3.579.2.593 1934 Unknown [id number] 2.16.84 0.1.753549.3.579.2.593 1934 Unknown [id number] 2.16.84 0.1.107947.3.579.2.593 1934 Unknown [id number] 2.16.84 0.1.300175.3.579.2.593 1934 Unknown [id number] 2.16.84 0.1.618763.3.579.2.593 1934 Unknown [id number] 2.16.84 0.1.151192.3.579.2.593 1934 Unknown [id number] 2.16.84 0.1.055620.3.579.2.593 1934 Unknown [id number] 2.16.84 0.1.605314.3.579.2.593 1934 Unknown [id number] 2.16.84 0.1.491205.3.579.2.593 1934 Unknown [id number] 2.16.84 0.1.686109.3.579.2.593 1934 Unknown [id number] 2.16.84 0.1.070500.3.579.2.593 1934 Unknown [id number] 2.16.84 0.1.945665.3.579.2.593 1934 Unknown [id number] 2.16.84 0.1.397497.3.579.2.593 1934 Unknown [id number] 2.16. 840.1.541005.3.579.2.196 1934 Unknown [id number] 2.16.84 0.1.258080.3.579.2.1259 1934 Unknown [id number] 2.16.84 0.1.474267.3.579.2.1259 1934 Unknown [id number] 2.16.8 40.1.331555.3.579.2.727 1934 Unknown [id number] 2.16.8 40.1.112379.3.579.2.727 193 Unknown [id number] 2.16.8 40.1.089080.3.579.2.727 1934 Unknown [id number] 2.16.8 40.1.178484.3.579.2.727 1934 Unknown [id number] 2.16.8 40.1.785827.3.579.2.727 1934 Unknown [id number] 2.16.8 40.1.791047.3.579.2.727 1934 Unknown [id number] 2.16.8 40.1.162763.3.579.2.727 1934 Unknown [id number] 2.16.8 40.1.594455.3.579.2.727 1934 Unknown [id number] 2.16.8 40.1.969448.3.579.2.727 1934 Unknown [id number] 2.16.8 40.1.061515.3.579.2.727 Social History Date Type Detail Facility Unknown if ever smoked [facility] Other Start: 02-05-2023 End: 08-29-2023 [facility]igned At [facility] Start: 12-11-2022 End: 12-13-2022 Tobacco smoking status Never smoked tobacco (finding) [facility] Tobacco smoking status Never [facility] Comment on above: Quit in 2002 Start: 01-22-2023 End: 10-02-2023 Tobacco smoking status Ex-smoker (finding) [facility] Comment on above: Quit in 2002 Start: 12-13-2022 Tobacco use and exposure Smokeless tobacco non-user [facility] Start: 02-05-2023 End: 08-29-2023 Alcohol intake Current drinker of alcohol (finding) [facility] Start: 02-05-2023 End: 08-29-2023 History of Social function [facility] Start: 1935 Sex Assigned At Not on file [facility] Functional Status Date Assessment Result Facility 10-23-2023 Functional Status No [facility] 09-30-2023 Functional Status N/A [facility] Clinical Notes 10-13-2021 to 01-22-2024 ALEX Andrea - 08/29/2023 1:00 PM EST Note Date & Type Note Facility 01-22-2024 Note 01/22/24 0923 Admission Assessment Questions Verify insurance with patient Yes Do you understand medical disease or what brought you into the hospital? Yes Who is your current PCP? John Nieves Can I schedule a follow up appointment for you at the time of discharge? Yes Do you understand why you are taking your current medications? Yes Are you taking your medications as prescribed? Yes Did patient provide teach back? No Pharmacy Bedside Delivery Status Interested Does the patient have a home health care case manager assigned to them through their insurance? No Living Arrangement (Current/Prior to Hospitalization) Home self care Does the patient have history of HHC or SNF? No Assistive Device Not applicable Patient's goal for discharge Plan is to discharge home Was patient reminded that goal for discharge is 11am? Yes Does the patient have transportation at discharge? Yes (Daughter will transport) Type of Residence Private residence Is PT/OT appropriate? No Is PT/OT ordered? No Is SW consult appropriate? No Is SW consult ordered? No Do you understand the benefits of MyChart? Yes Were you able to send link and activate MyChart? No [facility] 01-21-2024 Note Patient: Ry soria Procedure Information Date/Time: 01/21/24 1100 Procedure: Left atrial appendage closure (transvenous) Location: [facility] INFORMATION SECURITY SYSTEMS INSTRUCTOR 3 / [facility] (Cath) Providers: Kelly Morales MD Clinical information reviewed: Allergies Meds Physical Exam Airway Mallampati: III TM distance: >3 FB Neck ROM: full Cardiovascular Rhythm: regular Rate: normal Dental Pulmonary Abdominal Anesthesia Plan ASA 3 other (Conscious sedation.) Anesthetic plan and risks discussed with patient. Use of blood products discussed with patient who consented to blood products. Additional Equipment Requests [place] 12-04-2023 Note [place] [facility] - [facility] Subjective Ry Lerner is a 88 y.o. year old male patient being seen to discuss LAAO per Karla Bentley CNP. Says he saw PCP in the office yesterday and he also recommended the LAAO device. Hasn't had recurrent epistaxis since September 2023 but does still get red specks sometimes when he blows his nose. Denies chest pain, palpitations, and lightheadedness/syncope. He is due next month for routine device interrogation. Patient Active Problem List Diagnosis Permanent atrial fibrillation (CMS/HCC) Bradycardia History of CVA (cerebrovascular accident) Anemia Acute cerebrovascular accident (CVA) (CMS/HCC) Bleeding ulcer BMI 30.0-30.9,adult Cardiac arrhythmia Carpal tunnel syndrome of left wrist Carpal tunnel syndrome, right Contusion of lung Diverticular disease of colon Dyshidrotic eczema Former cigar smoker Hemoperitoneum Gastritis Hyperlipidemia Hypertension AF (atrial fibrillation) (CMS/HCC) Abnormal chest CT Abnormal liver ultrasound Abnormal x-ray of cervical spine Cardiac pacemaker Cyst of pancreas Liver nodule Lung nodule Nodule of kidney Paget's disease of the bone Rotator cuff tear Skin texture changes Family History Family history unknown: Yes Social History Tobacco Use Smoking status: Former Types: Cigarettes Passive exposure: Past Smokeless tobacco: Never Substance Use Topics Alcohol use: Never Drug use: Never HPI He is seen in follow-up to discuss left atrial appendage closure procedure. He is 88-year-old man with history of atrial fibrillation, tachybradycardia syndrome and prior single-chamber pacemaker placement for severe symptomatic bradycardia. He has heart failure with preserved ejection fraction and prior echocardiogram showed significantly elevated right-sided pressures. He is maintained on diuretic therapy with furosemide. He is currently maintained on warfarin for anticoagulation therapy. He has been having issues with recurrent epistaxis requiring visits to the emergency room. He had urgent catheterization therapy to the nose in September 2023. He also has a prior history of GI bleeding and a EGD showed healing ulcer. He also has bleeding hemorrhoids. He had discussion with his primary care provider Dr. John Nieves and they decided that exploring the option of left atrial appendage closure is a good idea for him as an alternative to long-term anticoagulation given his bleeding tendency and recurrent bleeding events. Review of Systems Constitutional: Positive for malaise/fatigue. Cardiovascular: Positive for dyspnea on exertion. Hematologic/Lymphatic: Positive for bleeding problem. All other systems reviewed and are negative. Objective Visit Vitals BP 122/68 (BP Location: Right arm, Patient Position: Sitting) Pulse 60 Ht 1.829 m (6') Wt 98.9 kg (218 lb) SpO2 97% BMI 29.57 kg/m??? Smoking Status Former BSA 2.24 m??? Physical Exam Constitutional: Appearance: He is well-developed. He is not ill-appearing. HENT: Head: Normocephalic and atraumatic. Nose: Nose normal. Eyes: General: No scleral icterus. Pupils: Pupils are equal, round, and reactive to light. Neck: Thyroid: No thyromegaly. Vascular: No JVD. Cardiovascular: Rate and Rhythm: Normal rate and regular rhythm. Pulses: Radial pulses are 2+ on the right side and 2+ on the left side. Heart sounds: Normal heart sounds. No murmur heard. No friction rub. No gallop. Pulmonary: Effort: Pulmonary effort is normal. No respiratory distress. Breath sounds: Normal breath sounds. No wheezing or rales. Chest: Chest wall: No tenderness. Abdominal: General: Bowel sounds are normal. There is no distension. Palpations: Abdomen is soft. Tenderness: There is no abdominal tenderness. Musculoskeletal: General: No swelling. Cervical back: Neck supple. Skin: General: Skin is warm and dry. Neurological: General: No focal deficit present. Mental Status: He is alert and oriented to person, place, and time. Psychiatric: Mood and Affect: Mood normal. Behavior: Behavior is cooperative. Judgment: Judgment normal. Allergies No Known Allergies Medications Current Outpatient Medications: amLODIPine (Norvasc) 5 mg tablet, amlodipine 5 mg tablet TAKE 1 TABLET BY MOUTH EVERY DAY, Disp: , Rfl: furosemide (Lasix) 40 mg tablet, furosemide 40 mg tablet TAKE 1 TABLET BY MOUTH EVERY DAY, Disp: , Rfl: lisinopril 20 mg tablet, lisinopril 20 mg tablet TAKE 1 TABLET EVERY DAY, Disp: , Rfl: omeprazole (PriLOSEC) [address] capsule, Take 40 mg by mouth in the morning., Disp: , Rfl: warfarin (Coumadin) 5 mg tablet, Take 5 mg by mouth., Disp: , Rfl: Recent Labs No visits with results within 6 Month(s) from this visit. Latest known visit with results is: [facility] Encounter on 10/13/2021 Component Date Value Ventricular Rate 10/13/2021 39 Atrial Rate 10/13/2021 75 QRS DURATIO (more content not included)... [place] 10-30-2023 Note [place] [facility]iology - [facility] Reason for visit: Afib. S/p PPM 10/30/2023 [...] on Warfarin, tachybradycardia syndrome status post single-chamber [employer] pacemaker on 10/13/2021, CKD, and CVA, [...] and he has been in the senior living lately. Device check performed on 06/12/2022 shows thresholds to be good. he is in persistent A. Fib and underwent a single-chamber pacemaker. with [employer] on 10/13/2021 and paced 65% Echocardiogram [...] coumadin anticoagulation. Echocardiogram performed on 11/30/2020 at [facility] shows an ejection fraction of 55% [...] on file Intimate Partner Violence: Unknown (09/19/2023) [place] Safety & Environment Fear of Current or Ex-Partner: Not on file Emotionally Abused: Not on file Physical (more content not included)... [place] 10-24-2023 Hospital Discharge instructions Patient Education 10/24/2023 14:41:31 [facility](CUSTOM) [place], [place] DISCHARGE INSTRUCTIONS: NASAL SURGERY DO NOT [...] the office with any questions or problems: [phone] ([place] office) The above information has been explained, I have had the opportunity to have my questions answered, and I have received a copy. Responsible Libertarian SignatureSurgeon s Signature Nurse s Signature Reviewed: 09/0510/24/2023 14:37:39 Post Op Patient Instructions - [facility] (CUSTOM) Follow Up Care 10/23/2023 10:02:33 With:Christelle Salazar Address:Unknown When: Unknown Comments:As needed [facility] 10-23-2023 Note [id number] [facility] 09-30-2023 Evaluation + Plan note Future Scheduled TestsAlkaline Phosphatase Isoenzymes 09/30/23. pylori Stool Ag 09/30/23Ferritin 09/30/23Iron Level 09/30/23 [facility] 08-29-2023 History of Present illness Narrative Rash [...] any new/changing lesions documented in this encounter [facility] 05-15-2023 Note Patient here for [...] All other systems reviewed and are negative. [place] 05-15-2023 Note [place] Cardiology Consul t Note Reason for visit: [...] on Warfarin, tachybradycardia syndrome status post single-chamber [employer] pacemaker on 10/13/2021, CKD, and CVA, [...] and he has been in the senior living lately. Device check performed on 06/12/2022 shows thresholds to be good. he is in persistent A. Fib and underwent a single-chamber pacemaker. with [employer] on 10/13/2021 and paced 65% Echocardiogram [...] 12 years ago in [place], and was inpt hospital with noted a fib currently on coumadin anticoagulation. Echocardiogram performed on 11/30/2020 at [facility] shows an ejection fraction of 55% [...] mg DR lindsay (more content not included)... [place] 02-17-2023 Note Stable -ct medications [place] 02-17-2023 Note [id number]: at [facility] for age and htn -restart warfarin, will follow coumadin clinic here at [facility] -is to report any concerns for bleeding -follow up in 2 months to discuss how he is doing -patient prefers to not consider watchmen if he does not have to [place] 02-08-2023 Note [place] Cardiology Consul t Note Reason for visit: Afib. S/p PPM HPI: Ry Lerner is a 87 y.o. year old male with a PMH persistent atrial fibrillation on Warfarin, tachybradycardia syndrome status post single-chamber [employer] pacemaker on 10/13/2021, CKD, and CVA, [...] and he has been in the senior living lately. Device check performed on 06/12/2022 shows thresholds to be good. he is in persistent A. Fib and underwent a single-chamber pacemaker. with [employer] on 10/13/2021 and paced 65% Echocardiogram [...] coumadin anticoagulation. Echocardiogram performed on 11/30/2020 at [facility] shows an ejection fraction of 55% [...] No current facility (more content not included)... [place] 02-08-2023 Note Patient here for [facility] for GI bleed. He was discharged on 12/14 and coumadin was put on hold. Denies chest pain, SOB, and palpitations. Lost his recently. Review of Systems Musculoskeletal: Positive for arthritis, joint pain and muscle cramps. Neurological: Positive for numbness. All other systems reviewed and are negative. [place] 01-01-2023 Note [id number] Note [id number] SURGERY Clinical Discharge Summary PERSON INFORMATION Name RY LERNER Age 87 Years 1935 Sex MALE Language Nauruan PCP Ezequiel CHAMBERS, John Rodríguez Marital Status Med Service Ambulatory Surgery Acct# Arrival 12/31/2022 08:09:06 Visit Reason SURGERY - RIGHT CARPAL TUNNEL RELEASE Acuity LOS 039 21:33 Address: [address] [place] [address] Comment: PROVIDER INFORMATION VITALS INFORMATION Vital Sign [...] release capsule) 1 cap(s) Oral every day. Granger's wort (Granger's wort oral tablet) 1 tab(s) Oral 2 [...] release capsule) 1 cap(s) Oral every day. Granger's wort (Lindsey's wort oral tablet) 1 tab(s) [...] Follow up: With: Address: When: MARJ PEREZ [address] [place] [address], [address] [place] [address] Business (1) 01/09/2023 11:00 AM DIAGNOSIS Carpal tunnel syndrome, right Comment: PHYS DOC NOTES [facility] [place] 12-31-2022 Note Procedure: Decompres mary of median [...] on: 12/31/2022 09:43 EDT] Ward Martinez DO [facility] [place] 12-12-2022 Note [id number] [facility] [place] 12-10-2022 Note procedure: Decompres mary of median [...] on: 12/10/2022 15:46 EDT] Ward Martinez DO [facility] [place] 12-10-2022 Note [facility] SURGERY Clinical Discharge Summary PERSON INFORMATION Name RY LERNER Age 87 Years 1935 Sex MALE Language Nauruan PCP Ezequiel CHAMBERS, John Rodríguez Marital Status [facility] Service Ambulatory Surgery Acct# Arrival 12/10/2022 13:13:28 Visit Reason SURGERY - LEFT CARPAL TUNNEL RELEASE Acuity LOS 019 02:57 Address: [address] [place] [address] Comment: PROVIDER INFORMATION VITALS INFORMATION Vital Sign [...] Follow up: With: Address: When: Ward Martinez [address] [place] [address], [address] [place] [phone] Business (1) 12/18/2022 1:30 PM Type Location Start [facility] ([facility] Main OR 12/31/2022 7:30 AM 12/31/2022 8:00 AM Confirmed DIAGNOSIS Carpal tunnel syndrome of left wrist Comment: PHYS DOC NOTES [facility] [place] 06-02-2022 Evaluation note Encounter Date Diagnosis Assessment [...] treatment plan. Patient left in stable condition [facility] [employer] Other 03-18-2022 History general Narrative - Reported* Type Description Date Medical History HYPERTENSION Medical History STROKE Medical History HEAD INJURY Surgical History PACEMAKER 10/13/2021 Surgical History HERNIA X 2 Surgical History TONSILECTOMY Hospitalization History SEE ABOVE [facility] [employer] Other Evaluation + Plan note No data available for this section [facility] Future Appointments Appointment Date:08/27/2023 09:30:00 AM Scheduled Provider: Location:[facility] Appointment Type: Medicare Wellness Subsequent [facility] Future Appointments Appointment Date:10/02/2023 10:00:00 AM Scheduled Provider:Sheng Simms Location:[facility] Appointment Type: Open Future Scheduled Tests Laboratory* Alkaline Phosphatase Isoenzymes 3/4/24 * H. pylori Stool Ag 3/4/24 * Ferritin 3/4/24 * Iron Level 3/4/24 [facility] Evaluation + Plan note Future Appointments Appointment Date:10/24/2023 02:30:00 PM Scheduled Provider: Location:[facility] Services Appointment Type:Surgery FT Future Scheduled Tests Laboratory* Alkaline Phosphatase Isoenzymes 3/4/24 * H. pylori Stool Ag 3/4/24 * Ferritin 3/4/24 * Iron Level 3/4/24 [facility] Diagnosis Other atopic dermatitis- Primary Seborrheic keratosis [facility] No data available for this section [facility] No data available for this section [facility] Summary Purpose Family History No Family [...] and content) DATE CREATED AUTHOR 01/26/2022 [facility] DATE CREATED AUTHOR AUTHOR'S ORGANIZ ATION 04/25/2022 [facility] DATE CREATED AUTHOR AUTHOR'S ORGANIZ ATION 01/06/2023 [facility] DATE CREATED AUTHOR AUTHOR'S ORGANIZ ATION [facility]/06/2023 [facility] DATE CREATED AUTHOR AUTHOR'S ORGANIZ ATION 09/15/2023 [facility] DATE CREATED AUTHOR AUTHOR'S ORGANIZ ATION 10/24/2023 [facility] DATE CREATED AUTHOR AUTHOR'S ORGANIZ ATION 01/23/2024 [facility] DATE CREATED AUTHOR AUTHOR'S ORGANIZ ATION 01/24/2024 [facility] REASON FOR VISIT (unrecogniz ed section and content) Reason Comments Rash Specialty Diagnoses / Procedures Referred By Daniel ivy Referred To Contact Dermatology Diagnoses eczema / skin changes texture changes Sheng Lagos MD [address] [place] [id number] Rebecca Conley MD [address] [address] Referral ID Status Reason Start Date Expiration Date Visits Re quested Visits Authorized [id number] Closed 07/05/2023 01/01/2024 1 1 Patient Care team informatio n (unrecognized section and content) Computer Engineer Relationship Specialty Start Date End Date Jason Silva MD [address] [place] [address] PCP - General Family Medicine 12/10/22 Computer Engineer Relationship Specialty Start Date End Date Jason Silva MD [address] [facility] [place] [address] PCP - General Family Medicine 12/10/22 FOR [...] BE BASED ON THE PRIMARY CLINICAL RECORDS. [employer] [facility]. provides no warranty or guarantee of the accuracy or completeness of information in this document.
[2024-01-29 12:05] LABS: Anion Gap 18.6; BUN Creatinine Ratio 26.3; Calcium 10.5 mg/dL (8.5-10.1); Carbon Dioxide 18.2 mmol/L (21.0-32.0); Chloride 107 mmol/L (98-107); Estimated GFR (African America 32 (>=60); Estimated GFR (Non-African Ame 26 (>=60); Glucose 94 mg/dL (74-106); Potassium 4.8 mmol/L (3.5-5.1); Sodium 139 mmol/L (136-145)
[2024-01-29 12:33] LABS: Basophils Percent Auto 0.5 % (0.2-2.0); Eosinophils Absolute Auto 0.2 10^3/uL (0.0-0.7); Eosinophils Percent Auto 4.5 % (0.9-7.0); Hematocrit 28.5 % (42.0-54.0); Hemoglobin 8.8 g/dL (14.0-18.0); Immature Granulocytes Abs Auto 0.01 10^3/uL (0.00-0.03); Immature Granulocytes Pct Auto 0.3 % (0.0-0.5); Lymphocytes Absolute Auto 0.8 10^3/uL (1.2-3.8); Mean Corpuscular HGB Conc 30.9 g/dL (29.9-35.2); Mean Corpuscular Hemoglobin 29.8 pg (25.9-34.0); Mean Corpuscular Volume 96.6 fL (80.0-94.0); Mean Platelet Volume 10.8 fL (9.5-13.5); Monocytes Absolute Auto 0.3 10^3/uL (0.3-0.8); Monocytes Percent Auto 8.8 % (1.7-12.0); Neutrophils Absolute Auto 2.4 10^3/uL (1.4-6.5); Neutrophils Percent Auto 63.9 % (43.0-75.0); Platelet Count 139 10^3/uL (150-450); Red Blood Count 2.95 10^6/uL (4.70-6.10); Red Cell Distribution Width 15.3 % (11.0-15.0); White Blood Count 3.8 10^3/uL (4.0-11.0)
== END 2024-01-29 09:41 | disposition home or self-care (01) ==
LOC: LAB 09:41
PROVIDERS: PCP Nurse Practitioner; Visit Provider Hospitalist
DX: I48.21 Permanent atrial fibrillation (principal); Z87.19 Personal history of other diseases of the digestive system; E87.5 Hyperkalemia
CPT/HCPCS: 36415; 80048; 85025

== ENCOUNTER 2024-02-25 08:57 | Outpatient (OUT) | payer MEDICARE, SELFPAY ==
--- OUTSIDE RECORDS SUMMARY | 2024-02-25 09:13 | XMS_ITS | CCD ---
Author Organization [facility] Care Team Providers Care Swing Ride Operator Name Role Phone UNKNOWN, PHYSICIAN Referring Unavailable JASON SILVA Primary Care Unavailable HERCHER, DEJON Attending Unavailable HERCHER, DEJON Admitting Unavailable PROVIDER, UNKNOWN Attending Unavailable PROVIDER, UNKNOWN Admitting Unavailable PROVIDER, UNKNOWN Attending Unavailable PROVIDER, UNKNOWN Admitting Unavailable Sonja Aden Unavailable Sheng Lagos Primary Care Physician Ward Martinez Admitting Unavail able Ward Martinez Attending Unavail able John Nieves Primary Care Unavailable JuanWard rabago Attending Unavail able John Nieves Primary Care Unavailable JuanWrad leal Admitting Unavail able SILVA ., DR JASON [...] ., DR JASON Devlin Primary Care Unavailable NADERELaura, DR HARVEY Mcgrath Consulting Unavailable CHEPE, DR HARVEY Mcgrath Attending Unavailable CHEPE, DR HARVEY Mcgrath Admitting Unavailable IVAN, STEPHANIE Procedure Practitioner Unavailab le MARKER ., DR GODDARD Consulting Unavailable CHEPE, DR HARVEY Mcgrath Procedure Practitioner Unavabenjamin clark TOSTEPHANIE Consulting Unavailable KLIPPERSTEPHANIE Consulting Unavailable AQUINO, MCKAYLA Consulting Unavailable DAR [...] Unavailable FAWWAD, HAYWARD H Attending Unavailable FAWWAD, HYAWARD H Admitting Unavailable SILVA ., DR JASON [...] DR JASON Devlin Primary Care Unavailable Silva Jsaon CHAMBERS Primary Care Provider [phone] Rosa CHAMBERS, Petros Steven Attending Unavailable ADDIE HUSTON Attending Unavailable SHENG LAGOS Referring Unavailable TIMMIS, CHRISTELLE H Attending Unavailable Timmis, Christelle H Admitting Unavailable Timmis, Christelle H Attending Unavailable Timmis, Christelle H Referring Unavailable Mary Jane Garza Attending Unavailable Brissa, Sheng Calix Referring Unavailable Brissa, Sheng L Attending Unavailable Brissa, Sheng L Attending Unavailable John Nieves Attending Unavailable Brissa, Sheng L Attending Unavailable Brissa, Sheng L Attending Unavailable Brissa, Sheng L Attending Unavailable Brissa, Sheng L Attending Unavailable Timmis, Christelle H Admitting Unavailable Timmis, Christelle H Attending Unavailable Timmis, Christelle H Referring Unavailable MOUKARBEL, KELLY Referring Unavailable MOUKARBEL, KELLY Attending Unavailable MOUKARBEL, KELLY Admitting Unavailable WATKINSGAIL Devlin Referring Unavailable MOUKARBEL, KELLY Referring Unavailable CHARISSE GAY Attending Unavailable LUCASKORINA Attending Unavailable NICHOLROYAL Herrera Referring Unavailable MOUKARBEL, KELLY Referring Unavailable MOUKARBEL, KELLY Attending Unavailable LUCASKORINA LYNNE Referring Unavailable LUCASKORINA LYNNE Attending Unavailable NICHOLROYAL Herrera Referring Unavailable Allergies Allergy Classification Reported Allergen(s) Allergy Type Date of Onset Reaction(s) Facility (2 sources) No Known Medication Allergies; Translations: [No Known Medication Allergies] Propensity to adverse reactions to drug (disorder) [facility] Repository Medications Current Medications Medication Drug Class(es) Dates Sig (Normalized) Sig (Original) acetaminophen 325 mg oral tablet (5 sources) Start: 10-23-2023 take 1 tablet by mouth every six hours as needed for pain Tylenol 325 mg Tab 325 mg, Oral, q6hr, PRN as needed for pain, Refills(s) 0 Start Date: 10/23/23 Status: Ordered take 1 capsule by mo [facility] every six hours as needed acetaminophen [...] Daily, # 90 tab(s), Refills(s) 1, Pharmacy: [facility], 179, cm, 09/03/23 10:34:00 EST, Height/Length [...] Daily, # 90 tab(s), Refills(s) 1, Pharmacy: [facility], 178, cm, 07/03/23 9:26:00 EST, Height/Length [...] Daily, # 180 cap(s), Refills(s) 3, Pharmacy: [facility], 178, cm, 01/22/23 14:05:00 EDT, Height/Length [...] 3 Chronic Other aftercare (1 source) 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; Translations: [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 CURRENT DRUG THERAPY] Onset: 3 Episodic Other aftercare (5 sources) Encounter for therapeutic drug level monitoring; Translations: [ENC THERAPEUTC DRUG LEVL MONITORING] Onset: 3 Episodic Other aftercare (1 source) senior care (current) use of anticoagulants; Translations: [ALF CURRNT [...] disorders (5 sources) Hemorrhage into peritoneal cavity 04-05-2023 Episodic Comment on above: No details in [...] fibrillation; Translations: [Permanent atrial fibrillation] Onset: 4 Past or Other Problems Problem Classification Problem [...] Test Name Value Interpretation Reference Range Facility 37on 02-12-2024 37 *Will cut amlodipine in half back to 5mg daily to see if this will help your dizziness. *Have lab work done in 2 weeks. *You are scheduled for your follow-up CARLOS on 03/13/24 to check the WATCHMAN device. Normal [facility] Office Visiton 02-12-2024 Follow-up visit [id number] Ry Lerner 1935 M Date Provider Department Center 02/12/2024 [id number], KORINA [facility] Family History Family history unknown: Yes Level of Service:96041 [place] OFFICE/OUTPATIENT ESTABLISHED MOD MDM 30 MIN Reason for Visit and Comments: Follow-up [839443] - Follow up -mioman Normal [facility] 30on 01-22-2024 30 Problem: Pain - Adul [...] and maintained or improved Outcome: Progressing Normal [facility] BASIC METABOLIC PANELon 12-28 Anion gap [Moles/Vol] 13 mmol/L Normal 7-20 [facility] Comment on above: Performed By: #### L AB15 #### [facility] ([facility]) [address] [place] [address] Calcium [Mass/Vol] 9.4 mg/dL Normal 8.6-10.3 [facility] Comment on above: Performed By: #### L AB15 #### [facility] ([facility]) [address] [place] [address] Chloride [Moles/Vol] 111 mmol/L High 98-107 [facility] Comment on above: Performed By: #### L AB15 #### [facility] ([facility]) [address] [place] [address] CO2 [Moles/Vol] 19 mmol/L Low 21-31 [facility] Comment on above: Performed By: #### L AB15 #### [facility] ([facility]) [address] [place] [address] Creatinine [Mass/Vol] 1.83 mg/dL High 0.70-1.30 [facility] Comment on above: Performed By: #### L AB15 #### [facility] [address] [place] [address] GLOMERULAR FILTRATION RATE ML/MIN/1.73 SQ M.PREDICTED 34.8 mL/min/1.73m*2 Low >60.0 [facility] Comment on above: Result Comment: [facility]???s estimated glomerular filtration rate (eGFR) will no [...] individuals. Performed By: #### L AB15 #### [facility] ([facility]) [address] [place] [address] Glucose [Mass/Vol] 103 mg/dL High 70-100 [facility] Comment on above: Performed By: #### L AB15 #### [facility] ([facility]) [address] [place] [address] Potassium [Moles/Vol] 5.2 mmol/L High 3.5-5.1 [facility] Comment on above: Performed By: #### L AB15 #### [facility] ([facility]) [address] [place] [address] Sodium [Moles/Vol] 138 mmol/L Normal 136-145 [facility] Comment on above: Performed By: #### L AB15 #### [facility] ([facility]) [address] [place] [address] Urea nitrogen [Mass/Vol] 50 mg/dL High 7-25 [facility] Comment on above: Performed By: #### L AB15 #### [facility] ([facility]) [address] [place] [address] UREA NITROGEN/CREATININE (MASS RATIO) IN SER/PLAS 27.3 Normal [facility] Comment on above: Performed By: #### L AB15 #### [facility] [address] [place] [address] CBCon 01-22-2024 Erythrocyte distribution width (RBC) [Ratio] 15.0 % Normal 11.5-15.0 [facility] Comment on above: Performed By: #### L [id number] ####[facility] ([facility])[address] [place] [address] ERYTHROCYTE MEAN CORPUSCULAR HEMOGLOBIN CONCENTRATION (G/DL) BY AUTOMATED 31.9 g/dL Low 32.0-35.0 [facility] Comment on above: Performed By: #### L [id number] ####[facility] ([facility])[address] [place] [address] Hematocrit (Bld) [Volume fraction] 26.0 % Low 39.0-55.0 [facility] Comment on above: Performed By: #### L [id number] ####[facility] ([facility])[address] [place] [address] Hemoglobin (Bld) [Mass/Vol] 8.3 g/dL Low 13.0-17.0 [facility] Comment on above: Performed By: #### L [id number] ####[facility] ([facility])[address] [place] [address] MCH (RBC) [Entitic mass] 30.5 pg Normal 27.0-33.0 [facility] Comment on above: Performed By: #### L [id number] ####[facility] ([facility])[address] [place] [address] MCV (RBC) [Entitic vol] 95.6 fL Normal 82.0-98.0 [facility] Comment on above: Performed By: #### L [id number] ####[facility] ([facility])[address] [place] [address] PLATELETS (10*3/UL) IN BLOOD AUTOMATED COUNT 120 10*3/uL Low 150-400 [facility] Comment on above: Performed By: #### L [id number] ####[facility] ([facility])[address] [place] [address] RBC (Bld) [#/Vol] 2.72 10*6/uL Low 4.20-5.70 [facility] Comment on above: Performed By: #### L [id number] ####[facility] ([facility])[address] [place] [address] WBC (Bld) [#/Vol] 3.09 10*3/uL Low 4.00-10.60 [facility] Comment on above: Performed By: #### L [id number] ####[facility] ([facility])[address] [place] [address] DSon 01-22-2024 DS - Attestation signed by Kelly Morales MD at 01/22/2024 3:03 PM I discussed the patient on the same date of service as the Non-Physician Provider Gail Watkins NP. Teaching Physician's Revisions: none Admission Admitted 01/21/2024 for Permanent atrial fibrillation ([facility]* Discharge Diagnosis Permanent atrial fibrillation (CMS/[facility]) S/p Left atrial appendage closure (01/21/24) Hyperkalemia [...] furosemide 40 mg tablet Commonly known as: Squidbid 40-10-5-3.3 mg tablet Generic drug: fcejwymcf-ljpveret-em r-hyalur omeprazole [address] capsule Commonly known as: PriLOSEC STOP taking these medications warfarin 5 mg tablet Commonly known as: Coumadin Where to Get Your Medications These medications were sent to [facility] [place] [address] amLODIPine 10 mg tablet aspirin 81 mg [...] epistaxis, history of GI bleeding, presented to [facility] for planned left atrial appendage closure by chain mender, Dr. Morales on 01/21/24. Patient underwent successful [...] asymptomatic, no rhythm changes per review of personnel monitor. Discussed with Dr. Morales who recommends [...] guidance. 5 (more content not included)... Normal [facility] Outside [facility] Correspo ndenceon 01-22-2024 Outside [facility] Correspondence [id number] .00TIFF Normal [facility] 30on 01-21-2024 30 The patient is Moderately [...] from fall injury Outcome: Progressing Flowsheets (Taken 01/21/20241936) Free from fall injury: Assess patient frequently for physical needs [place] fall precautions as indicated by assessment Identify [...] and prevent overall improvement and discharge Normal [facility] 30 Problem: Pain - Adul t Goal: [...] did make progress toward the following goals. 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 Surgical History He has a past surgical [...] medical histo (more content not included)... Normal [facility] MRSA/MSSA DNA NASALon 2023 MRSA DNA Positive Abnormal Negative [facility] Comment on above: Order Comment: Testi ng [...] preclude nasal colonization. Performed By: #### L [id number] ####[facility] ([facility]AKER)[address] [place] [address] MSSA DNA Negative Normal Negative [facility] Comment on above: Order Comment: Testi ng [...] preclude nasal colonization. Performed By: #### L [id number] ####[facility] ([facility]ER)[address] [place] [address] NURSNOTEon 01-21-2024 NURSNOTE Report given to CORI Linton from RICKY Doyle Any medications or safety alerts were reviewed. Any pending diagnostics and notifications were also reviewed, as well as any safety concerns or issues, abnormal labs, abnormal imagining, and abnormal assessment findings. Questions were answered. Normal [facility] NURSNOTE Bedside swallow stud y completed and passed. Normal [facility] NURSNOTE CHG wipes completed. Normal [facility] TYPE AND SCREENon 01-21-2024 AB SCREEN Negative [facility] Comment on above: Performed By: #### L [id number] ####[facility] BLOOD BANK, ABO group Nom (Bld) O Normal [facility] Comment on above: Performed By: #### L [id number] ####[facility]OD [facility], RH TYPE IN BLOOD Positive Normal [facility] Comment on above: Performed By: #### L [id number] ####[facility]LOOD [facility], Prep for Procedureon 024 Prep for Procedure [id number] Ry Lerner 1935 [facility] Provider Department Center 01/09/[address] [place], [place] [address] Family history unknown: Yes Normal [facility] Echocardiographyon 4 Echocardiography [id number] .00TIFF [facility] ANESon 01-03-2024 ANES - Attestation signed by [...] additional personal documentation from me. Patient: Ry Lerner Procedure Information Date/Time: 01/03/24 1230 Procedure: TRANSESOPHAGEAL ECHO (CARLOS) Location: [facility] V[facility] Center Vascular Lab [...] to blood products. Additional Equipment Requests Normal [facility] HPon 01-03-2024 - Attestation signed by Xochitl [...] longstanding persistent atrial fibrillation with an elevated NFU9IN1-OBBm score of 6 due to age, hypertension, [...] a past medical history of Atrial fibrillation ([facility]), Hypertension, and Tachycardia-bradycard ia (CMS/HCC). Surgical History [...] Cardiac device check - In Clinic 08/02/2023 [id number] Final ROS: 10 organ systems have been [...] addressed. Trenton William MD Cardiovascular disease fellow [facility] NURSNOTEon 01-03-2024 NURSNOTE Bedside swallow stud y completed and passed. [facility] NURSNOTE RN educated pt on d/ c instructions. RN encouraged pt to voice any questions or concerns. Pt verbalizes no questions or concerns at this time. Pt was wheeled off of unit with all of belongings. [facility] Telephoneon 12-25-2023 Telephone [id number] Ry Lerner 1935 M Date Provider Department Center 12/25/2023 OTONIEL ALMEIDA [facility] Family History Family history unknown: Yes [facility] Family Medicine Office/Clini c Noteon 12-10-2023 Family [...] Daily, # 90 tab(s), Refills(s) 1, Pharmacy: [facility], 179, cm, 09/03/23 10:34:00 EST, Height/Length Dosing, 100.9, kg, 09/03/23 10:34:00 EST, Weight Dosing amlodipine, 5 mg = 1 tab(s), Oral, Daily, X 90 day(s), # 90 tab(s), Refills(s) 3, Pharmacy: [facility], 180, cm, 12/03/23 10:39:00 EDT, Height/Length Dosing, 97.7, kg, 12/03/23 10:39:00 EDT, Weight Dosing lisinopril, 20 mg = 1 tab(s), Oral, Daily, # 90 tab(s), Refills(s) 1, Pharmacy: [facility], 178, cm, 07/03/23 9:26:00 EST, Height/Length Dosing, 98.4, kg, 07/03/23 9:26:00 EST, Weight Dosing lisinopril, 20 mg = 1 tab(s), Oral, Daily, X 90 day(s), # 90 tab(s), Refills(s) 3, Pharmacy: [facility], 180, cm, 12/03/23 10:39:00 EDT, Height/Length Dosing, 97.7, kg, 12/03/23 10:39:00 EDT, Weight Dosing omeprazole, 40 mg = 1 cap(s), Oral, Daily, # 180 cap(s), Refills(s) 3, Pharmacy: [facility], 178, cm, 01/22/23 14:05:00 EDT, Height/Length Dosing, 100, kg, 01/22/23 14:05:00 EDT, Weight Dosing omeprazole, 40 mg = 1 cap(s), Oral, Daily, X 90 day(s), # 90 cap(s), Refills(s) 3, Pharmacy: [facility], 180, cm, 12/03/23 10:39:00 EDT, Height/Length [...] Diabetes me (more content not included)... Normal [facility] Comment on above: Result Comment: Elec tronically Signed By: Ezequiel CHAMBERS, John Guan.br\Date and Time Signed: 12/10/23 12:54 EDT Office Visiton 12-04-2023 Follow-up visit [id number] Ry Lerner 1935 M Date Provider Department Center 12/04/2023 KELLY MARTIN [facility] Family History Family history unknown: Yes Level of Service:90802 [place] OFFICE/OUTPATIENT ESTABLISHED HIGH MDM 40 MIN Normal [facility] Patient Educationon 12-03-19 24 Patient Education Orthopedics Paget's Disease of Bone [...] these instructions at home: Medicines ? Take jyxw-mlr-pyyhwup and prescription medicines only as told by [...] who ariza (more content not included)... Normal [facility] RAD - CT Reporton 11-26-2023 RAD - CT Report [id number] .00TIFF Normal [facility] RAD - CT Reporton 11-15-2023 RAD - CT Report [id number] .00TIFF Normal [facility] Physician Orderon 10-31-2023 Physician Order [id number]#1 .00TIFF [facility] Ambulatory Visit Summaryon 0 10-30-2023 Ambulatory Visit [...] choosing us for your care. Normal [facility] Family Medicine Office/Clini c Noteon 10-30-2023 Family Medicine Office/Clinic Note HPI Staff Ry is a 88 year old male presenting for follow up Called 10/29/23 for records he was there for medication management, no record of CT scan . pt states [facility] had no order for CT of abdomen and pelvis. daughter would like to discuss watchman . Seen tree specialist today. Hemorid burst on Saturday. Daughter from [...] pelvis was ordered by September 29 but [facility] never received the order. new order sent to [facility] 4. BMI 30.0-30.9,adult (Z68.30: Body mass [...] influenza vi (more content not included)... Normal [facility] Comment on above: Result Comment: Elec tronically Signed By: Sheng Simms\.br\Date and Time Signed: 10/30/23 16:04 EDT Office Visiton 10-30-2023 Follow-up visit [id number] Ry Lerner 1935 M Date Provider Department Center 10/30/2023 KORINA GODOY BETH Albarran [facility] Family History Family history unknown: Yes Level of Service:01982 [place] OFFICE/OUTPATIENT ESTABLISHED MOD MDM 30 MIN Reason for Visit and Comments: Follow-up [483827] - 6 month follow up Normal [facility] Orders Onlyon 10-30-2023 Orders Only [id number] Ry Lerner 1935 M Date Provider Department [place] 10/30/2023 JULES NGUYEN BETH Albarran [facility] Family History Family history unknown: Yes Normal [facility] Lab Reportson 10-29-2023 Lab Reports [id number] .00TIFF Normal [facility] IntraOperative Documentson 0 10-28-2023 IntraOperative Documents [id number] .00TIFF Normal [facility] Consent for Anesthesiaon Consent for Anesthesia [id number]# 1.00TIFF Normal [facility] Discharge Instructionson Discharge Instructions [id number]# 1.00TIFF Normal [facility] IntraOperative Documentson 0 10-25-2023 IntraOperative Documents [id number]# 1.00TIFF [facility] Main OR Intraoperative Recor don 10-25-2023 Main OR Intraoperative Record IntraOp Document Type FT Summary Primary Physician: Christelle Hurst MD Finalized Date/Time: 10/25/23 13:48:34 Pt. Name: RY LERNER/Sex: 1935 Male Med Rec #: [id number] Physician: Christelle Hurst MD Financial #: [id number] Pt. 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 Yes Dry Last [...] Right Arm (more content not included)... Normal [facility] Operative Reporton Operative Report SURGERY DATE: 10/24/2023 PREOPERATIVE DIAGNOSIS: Right epistaxis POSTOPERATIVE DIAGNOSIS: Right epistaxis OPERATION: Right nasal endoscopy and cautery ANESTHESIA: General endotracheal COMPLICATIONS: None FINDINGS: Extensive excoriation of the right anterior middle turbinate and nasal septum INDICATIONS: This 88-year-old man presented with recurrent epistaxis of the right nose. His nose was packed last week at [facility], and then when he returned for [...] Christelle Hurst Jr., M.D. ca Dictated: 10/24/2023 [id number] Transcribed: 10/24/2023 cc:JAXON Shane Normal [facility] Comment on above: Result Comment: Elec tronically Signed By: Marie CHAMBERS, Christelle Diaz\.br\Date and Time Signed: 10/25/23 07:09 EDT Outside Recordson 10-25-2023 Outside Records [id number]# 1.00TIFF [facility] Preoperative Documentson Preoperative Documents [id number]# 1.00TIFF [facility] Progress Note-Physicianon Progress Note-Physician Patient: RY LERNER [...] meets criteria ( To home ). 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 Abnormal liver ultrasound / SNOMED CT 8417717814 / Confirmed Abnormal ultrasound of kidney / SNOMED CT 3298366920 / Confirmed Rotator cuff tear / SNOMED CT 4127160852 / Confirmed Nodule of kidney / SNOMED CT 176738391 / Confirmed Abnormal x-ray of cervical spine / SNOMED CT 490782013 / Confirmed Liver nodule / SNOMED CT 1719515264 / Confirmed HTN (hypertension) / SNOMED CT 7619502454 / Confirmed No details in previous records Hyperlipidemia / SNOMED CT 89438112 / Confirmed no details in previous chart Bleeding ulcer / SNOMED CT 5307863653 / Confirmed Hemoperitoneum / SNOMED CT 0218883070 / Confirmed No details in previous medical record Former cigar smoker / SNOMED CT 686303968 / Confirmed Eczema / SNOMED CT 55393859 / Confirmed Cyst of pancreas / SNOMED CT 24829912 / Confirmed Abnormal chest CT / SNOMED CT 2290478057 / Confirmed Contusion of lung / SNOMED CT 777856060 / Confirmed No details in previous records Skin texture changes / SNOMED CT 306315416 / Confirmed Acute cerebrovascular accident (CVA) / SNOMED CT 368980208 / Confirmed Cardiac pacemaker / SNOMED CT 6622330803 / Confirmed Dysrhythmias / SNOMED CT 3409361164 / Confirmed Tachy, Ryan BMI 30.0-30.9,adult / SNOMED CT 148485291 / Confirmed AF (atrial fibrillation) / SNOMED CT 39253555 / Confirmed Anemia / SNOMED CT 372968353 / Confirmed FE DEF Anemia Canceled: Aspiration pneumonia / SNOMED CT 1023016921 Histories Procedure history: Colonoscopy (580386572) on 12/12/2022 at 87 Years. Carpal tunnel release (989679418) on 12/10/2022 at 87 Years. Comments: 12/11/2022 11:34 HOWIET - Suma Dubois Left Cardiac pacemaker (82248547) in the month of 09/2021 at 86 Years. Colonoscopy (317669196) in the month of 02/2011 at 75 Years. Transurethral resection of prostate (TURP) syndrome (0196102521) in 1995 at 60 Years. Hernia (4293037988) in 1993 at 58 Years. Tonsillectomy with adenoidectomy (49873099). Social History Social & Psychosocial Habits Alcohol [...] adequate air exchange. Cardiovascular: Regular rhythm. Plan [place] [employer] Anesthesiologists (ASA) physical status classification: Class III. Anesthetic Preoperative Plan: Anesthesia General. Normal [facility] Comment on above: Result Comment: Elec tronically Signed By: Ward Kraus Jr, DO\.viviane\Date and Time Signed: 10/25/23 09:03 EDT Consent for Treatmenton 09-27 Consent for Treatment [id number]#1 .00TIFF Normal [facility] Discharge Instructionson Discharge Instructions RY LERNER :1935 [...] Freetext Keep head elevated one weekRestart coumadin 330Antibiotic ointment to the right nose 2 times [...] cuff tear Skin texture changes Education Materials [place], [place] DISCHARGE INSTRUCTIONS: NASAL SURGERY DO NOT [...] the office with any questions or problems: [phone] ([place] office) The above information has been explained, [...] We want (more content not included)... Normal [facility] Comment on above: Result Comment: Elec tronically Signed By: Andie PERSAUD, Yann Estevez\.br\Date and Time Signed: 10/24/23 14:43 EDT H&P Updateon 10-24-2023 H&P Update [id number]# 1.00TIFF Normal [facility] Inpatient Patient Summaryon 10-24-2023 Inpatient Patient Summary [place] [id number] [facility] Clinical Discharge Instructions PERSON INFORMATION Name: RY [...] Tablets By Mouth every day., managed per [facility] Comment: Mitchell [facility] Main OR PACU I Recordon 09-27 Main OR PACU I Record PACU Phase I Docum ent Type FT Summary Primary Physician: Christelle Hurst MD Finalized Date/Time: 10/24/23 15:11:48 Pt. Name: RY LERNER/Sex: 1935 Male Med Rec #: [id number] Physician: Christelle Hurst MD Financial #: [id number] Pt. Type: Room/Bed: [place] [address] Admit/Disch: 10/24/23 12:15:19 - Institution: Case Times [...] I Outcomes Met? Yes Last Modified By: Cristina Almazan RN 10/24/23 15:11:35 Post-Care Text: The patient demonstrates [...] By: Cristina Almazan RN 10/24/23 15:11 Normal [facility] Main OR Preoperative Recordo n 10-24-2023 Main OR Preoperative Record PreOp Document Type FT Summary Primary Physician: Christelle Hurst MD Finalized Date/Time: 10/24/23 13:53:33 Pt. Name: RY LERNER/Sex: 1935 Male Med Rec #: [id number] Physician: Christelle Hurst MD Financial #: [id number] Pt. Type: A Room/Bed: [place] [address] Admit/Disch: 10/24/23 12:15:19 - Institution: Case Times [...] By: Damion Irving RN 10/24/23 13:53 Normal [facility] Monitor Recordon 10-24-2023 Monitor Record [id number]# 1.00TIFF Normal [facility] Monitor Record [id number]# 1.00TIFF Normal [facility] Outpatient Surgery Discharge Instructionon 10-24-2023 Outpatient Surgery Discharge Instruction [place] [address] Patient Discharge Instructions PERSON INFORMATION Name: RY LERNER Date of : 1935 Current Date: 10/24/2023 14:31:19 PHYSICIANS Admitting Physician: Christelle Hurst MD Discharge Diagnosis: Epistaxis YANN RY has been given the following list of follow-up instructions, prescriptions, and patient education materials: PATIENT FOLLOW-UP INFORMATION Diet: Regular Discharge Activity: Expect mild pain, Expect minimal amount of drainage and/or bleeding, Activity as tolerated Call Your Doctor For: Persistent or heavy bleeding Additional Instructions: Keep head elevated one week Restart coumadin 3/30 Antibiotic ointment to the right nose 2 [...] Information: You may receive a survey from [employer] asking you to rate your care experience. Your feedback is important and will help us understand what we do well and how we can improve the quality of care we provide to you, your loved ones and our community. It?s an honor to serve you. Thank you for choosing [facility] HERE ARE THE MEDICATION CHANGES THAT OCCURRED [...] Tablets By Mouth every day., managed per [facility] PATIENT EDUCATION INFORMATION Instructions: Medication Leaflets: Normal [facility] Patient Education - Texton 0 10-24-2023 Patient Education - Text [place], [place] Royal Granger, DO DISCHARGE INSTRUCTIONS: NASAL [...] medications as prescribed. Use the Nasal Relief Moca (decongestant) 2 sprays each nostril every hours. Use the Nasal Saline Moca 2 sprays each nostril every 2 hours. [...] the office with any questions or problems: [phone] ([place] office) The above information has been explained, I have had the opportunity to have my questions answered, and I have received a copy. Responsible Libertarian Signature Surgeon?s Signature Nurse?s Signature Reviewed: 09/05 Normal [facility] BMPon 10-23-2023 Anion gap [Moles/Vol] 11 mmol/L Normal 6-16 [facility] Comment on above: Performed By: #### 1 [id number], [id number] ####[facility] [address] [place] [address] Calcium [Mass/Vol] 10.5 mg/dL Normal 8.9-11.1 [facility] Comment on above: Performed By: #### 1 2649538, 2997537 ####[facility] [address] [place] [address] Chloride [Moles/Vol] 110 mmol/L Normal 101-111 [facility] Comment on above: Performed By: #### 1 1754461, 3230146 ####[facility] [address] [place] [address] CO2 [Moles/Vol] 25 mmol/L Normal 21-31 [facility] Comment on above: Performed By: #### 1 7067954, 1127969 ####[facility] [address] [place] [address] Creatinine [Mass/Vol] 2.2 mg/dL High 0.5-1.3 [facility] Comment on above: Performed By: #### 1 3845659, 6940416 ####[facility] [address] [place] [address] Glucose [Mass/Vol] 111 mg/dL Normal 55-199 [facility] Comment on above: Performed By: #### 1 2136038, 5669474 ####[facility] [address] [place] [address] Potassium [Moles/Vol] 5.3 mmol/L Normal 3.5-5.3 [facility] Comment on above: Performed By: #### 1 8880097, 9337242 ####[facility] [address] [place] [address] Sodium [Moles/Vol] 141 mmol/L Normal 135-145 [facility] Comment on above: Performed By: #### 1 3099125, 3459079 ####[facility] [address] [place] [address] Urea nitrogen [Mass/Vol] 60 mg/dL High 5-21 [facility] Comment on above: Performed By: #### 1 9368945, 2379656 ####[facility] [address] [place] [address] Urea nitrogen/Creatinine [Mass ratio] 27 No Units High 10-20 [facility] Comment on above: Performed By: #### 1 9205744, 0496148 ####[facility] [address] [place] [address] CBC w/ Auto Diffon 4 Basophils/100 WBC (Bld) 0.6 % Normal 0.0-2.0 [facility] Comment on above: Performed By: #### 2 115398, [id number] #### [facility] [address] [place] [address] Basophils/Leukocytes Auto (Bld) [Pure # fraction] 0.0 E9/L Normal 0.0-0.2 [facility] Comment on above: Performed By: #### 2 390654, [id number] #### [facility] [address] [place] [address] Eosinophils (Bld) [#/Vol] 0.2 E9/L Normal 0.0-0.5 [facility] Comment on above: Performed By: #### 2 847664, 05974382 #### [facility] [address] [place] [address] Eosinophils/100 WBC (Bld) 3.7 % Normal 0.0-8.0 [facility] Comment on above: Performed By: #### 2 208414, 14471781 #### [facility] [address] [place] [address] Erythrocyte distribution width (RBC) [Ratio] 14.4 % High 10.9-14.2 [facility] Comment on above: Performed By: #### 2 079327, 03465901 #### [facility] [address] [place] [address] Hematocrit (Bld) [Volume fraction] 27.9 % Low 37.7-49.0 [facility] Comment on above: Performed By: #### 2 290688, 25512763 #### [facility] [address] [place] [address] Hemoglobin (Bld) [Mass/Vol] 9.0 g/dL Low 13.5-17.5 [facility] Comment on above: Performed By: #### 2 818994, 92039374 #### [facility] [address] [place] [address] Lymphocytes (Bld) [#/Vol] 0.6 E9/L Low 1.0-4.0 [facility] Comment on above: Performed By: #### 2 692466, 54670975 #### [facility] [address] [place] [address] Lymphocytes/100 WBC (Bld) 14.4 % Normal 14.0-50.0 [facility] Comment on above: Performed By: #### 2 123422, 15952163 #### [facility] [address] [place] [address] MCH (RBC) [Entitic mass] 31.0 pg Normal 27.0-34.0 [facility] Comment on above: Performed By: #### 2 712949, 79953390 #### [facility] [address] [place] [address] MCHC (RBC) [Mass/Vol] 32.4 g/dL Normal 31.4-36.0 [facility] Comment on above: Performed By: #### 2 900050, 97623076 #### [facility] [address] [place] [address] MCV (RBC) [Entitic vol] 95.7 fL Normal 80.0-100.0 [facility] Comment on above: Performed By: #### 2 119018, 58810264 #### [facility] [address] [place] [address] Monocytes (Bld) [#/Vol] 0.4 E9/L Normal 0.2-1.0 [facility] Comment on above: Performed By: #### 2 483744, 17257974 #### [facility] [address] [place] [address] Neutrophils (Bld) [#/Vol] 3.0 E9/L Normal 2.0-7.5 [facility] Comment on above: Performed By: #### 2 114991, 70256475 #### [facility] [address] [place] [address] Neutrophils/100 WBC (Bld) 72.5 % Normal 36.0-75.0 [facility] Comment on above: Performed By: #### 2 827875, 19281143 #### [facility] [address] [place] [address] Platelet 187.0 E9/L Normal 150.0-500.0 [facility] Comment on above: Performed By: #### 2 237465, 27337213 #### [facility] [address] [place] [address] Platelet mean volume (Bld) [Entitic vol] 8.3 fL Normal 6.4-10.8 [facility] Comment on above: Performed By: #### 2 802189, 27920025 #### [facility] [address] [place] [address] RBC (Bld) [#/Vol] 2.9 E12/L Low 4.3-5.9 [facility] Comment on above: Performed By: #### 2 225552, 34497752 #### [facility] [address] [place] [address] WBC corrected for nucl RBC Auto (Bld) [#/Vol] 4.1 E9/L Normal 4.0-11.0 [facility] Comment on above: Performed By: #### 2 742072, 14293322 #### [facility] [address] [place] [address] CHEMISTRYOrdered By: SYSTEM SYSTEM on 10-23-2023 Anion [...] for Procedure/Surger yon 10-23-2023 Consent for Procedure/Surgery [id number]# 1.00TIFF Normal [facility] Consent for Treatmenton 09-27 Consent for Treatment [id number]#1 .00TIFF Normal [facility] HEMATOLOGYOrdered By: SYSTEM SYSTEM on 10-23-2023 Basophils/100 [...] Remisol Heme Outside Recordson 10-23-2023 Outside Records [id number]# 1.00TIFF Normal [facility] PT & PTTon 10-23-2023 aPTT Coag (PPP) [Time] 30.4 second(s) Normal 25.1-36.5 [facility] Comment on above: Result Comment: Para meter [...] - 109.0 sec. Performed By: #### 2 902570, 07378266 #### [facility] [address] [place] [address] INR Coag (PPP) [Relative time] 1.13 {INR} Invalid Interpretation Code [facility] Comment on above: Result Comment: INR results are specifically intended to assess patients stabilized on long-term Anticoagulation therapy suggested INR?s ?Less Intensive Anticoagulation? 2.0 ? 3.0 Conventional Range 3.0 ? 4.5 Performed By: #### 2 701131, 34663143 #### [facility] [address] [place] [address] PT Coag (PPP) [Time] 12.7 second(s) High 9.4-12.5 [facility] Comment on above: Result Comment: 15 d [...] no normal ranges. Performed By: #### 2 498558, 36094557 #### [facility] [address] [place] [address] Physician Orderon 10-23-2023 Physician Order [id number] #1.00TIFF Normal [facility] XR Chest 2 Viewson 4 XR Chest 2 Views Exam Date/Time: 10/23/2023 [...] Signed by: Jamie Armendariz M.D. Transcribed by: CHIATANYA Technologist: XOCHITL Technical Comments Radiation Dose: Ka,r in mGy = na DAP = na Normal [facility] eGFRon 10-23-2023 eGFR 28 mL/min/1.73 m2 Low >=59 [facility] Comment on above: Order Comment: Order added by Discern Expert. Performed By: #### 1 [id number], 7473667 ####[facility] [address] [place] [address] ED Note-Physicianon 10-21-19 ED Note-Physician [id number]#1 .00TIFF Normal [facility] Lab Reportson 10-16-2023 Lab Reports [id number]#1 .00TIFF Normal [facility] Ambulatory Visit Summaryon 0 10-02-2023 Ambulatory Visit [...] choosing us for your care. Normal 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 Normal [facility] Comment on above: Result Comment: Elec tronically Signed By: Brissa VICKERS, Sheng Calix\.br\Date and Time Signed: 10/02/23 10:41 EST Gastroenterology [...] Recorded SARS-CoV-2 (COVID-19 (more content not included)... [facility] Comment on above: Result Comment: Elec tronically Signed By: Greg CHAMBERS, Mary Jane Eddy\.br\Date and Time Signed: 09/30/23 14:51 EST Consultation Noteon 09-09-19 24 Consultation Note [id number]#1 .00TIFF [facility] Physician Referralon 024 Physician Referral [id number]#1 .00TIFF [facility] Family Medicine Office/Clini c Noteon 09-04-2023 Family Medicine Office/Clinic Note HPI Staff Ry is a 87 year old male presenting to review x-rays Pt has x-rays done on 08/28/23, CT chest on 08/30/[address] right shoulder 09/02/23 Pt needs refill on furosemide pt states he went to hse coordinator Dr Venegas and he stated that he [...] well. pt will have labs drawn at [facility]. RTC 1 month to touch [...] influenza virus (more content not included)... Normal [facility] Comment on above: Result Comment: Elec tronically Signed By: Sheng Simms\.br\Date and Time Signed: 09/04/23 12:27 EST Physician Referralon 024 Physician Referral [id number]#1 .00TIFF [facility] Ambulatory Visit Summaryon 0 09-03-2023 Ambulatory Visit [...] AM EST With: Sheng Simms Where: [facility] Family Medicine [facility] Lab Reportson 09-03-2023 Lab Reports [id number]#1 .00TIFF [facility] Physician Orderon 09-03-2023 Physician Order [id number]#1 .00TIFF [facility] Consultation Noteon 08-30-19 Consultation Note [id number]#1 .00TIFF [facility] Physician Orderon 08-30-2023 Physician Order [id number]#1 .00TIFF [facility] Physician Orderon 08-29-2023 Physician Order [id number]#1 .00TIFF [facility] Physician Order [id number]#1 .00TIFF [facility] RAD - MISCon 08-29-2023 RAD - MISC [id number]# 1.00TIFF [facility] RAD - MISC [id number]# 1.00TIFF [facility] RAD - MISC [id number]#1 .00TIFF [facility] Ambulatory Visit Summaryon 0 08-28-2023 Ambulatory Visit [...] 10:20 AM EST With: Sheng Simms Where: [facility] [place] Normal [facility] Family Medicine Office/Clini c Noteon 08-28-2023 Family [...] of clutter to prevent tripping and/or falling. [place] Advance Directives reviewed, yes on file in [...] has a difficult (more content not included)... [facility] Comment on above: Result Comment: Elec tronically Signed By: Sheng Simms\.br\Date and Time Signed: 08/28/23 13:35 EST\.br\Electronically Co-Signed By: Rene Brannon\.br\Date and Time Co-Signed: 08/28/23 13:09 EST Formson 08-28-2023 Forms [id number]#1 .00TIFF [facility] Patient Educationon 08-28-19 24 Patient Education Caregiving [...] night-lights. ? Place frequently used items in dpup-he-rowhq places. Lower the shelves around your home [...] the way. ? Do not use floor thai or wax that makes floors slippery. If [...] include working with a physical therapist or puppy trainer to improve your strength, balance, and endurance. Where to find more information ? Centers for Disease Control and Prevention, [place]: www.cdc.gov ? National [place] [employer]: www.ed.nih.gov Contact a health care [...] health ca (more content not included)... Normal [facility] Physician Referralon 023 Physician Referral [id number]# 1.00TIFF Normal [facility] Ambulatory Visit Summaryon 1 09-03-2022 Ambulatory Visit [...] Appointments Saturday 11:00 AM EST Where: [facility] [place] Normal [facility] Family Medicine Office/Clini c Noteon 07-03-2023 Family [...] is worsening. all questions answered. RTC [facility]. pt will needs [...] changes Historical (more content not included)... Normal [facility] Comment on above: Result Comment: Elec tronically Signed By: Sheng Simms\Date and Time Signed: 07/03/23 12:49 EST Lab Reportson 07-02-2023 Lab Reports [id number]#1 .00TIFF Normal [facility] Office Visiton 05-15-2023 Follow-up visit [id number] Ry Lerner 1935 M Date Provider Department Center 05/15/2023 CHARISSE WINSLOW [facility] Family History Family history unknown: Yes Level of Service:29894 [place] OFFICE/OUTPATIENT ESTABLISHED MOD MDM 30-39 MIN Normal [facility] Physician Referralon 023 Physician Referral [id number]#1 .00CD:127 Normal [facility] Consultation Noteon 03-11-20 Consultation Note [id number]#1 .00CD:127 Normal [facility] Family Medicine Office/Clini c Noteon 01-23-2023 Family [...] at this time. Patient was treated at [facility]. Questions/Concerns: History of Present Illness pt [...] to follow up with Dr. Vargas in [place] and also placed a GI consult. since then his so he has not made any of those appointments. pt wants to stop taking lasix. encouraged daughter to make appointment with Dr. Vargas and let him decide if he can stop lasix. will draw pt/ptt in office today and compare to labs that were drawn in [place] end of November. still waiting for those labs. will call pt tomorrow once we have lab results. omeprazole refills also sent to pharmacy. they will hold off on GI referral until they get meds situated with tree specialist. Dr. Vargas's office was called notified. [...] 06/13/2020 Recorded (more content not included)... Normal [facility] Comment on above: Result Comment: Elec tronically Signed By: Sheng Simms\.br\Date and Time Signed: 01/23/23 16:36 EDT Coding Summaryon 01-01-2023 Coding Summary [employer]Base 64 HzrriwijXGr7uEj+PGhlY WQ+OF5GDJKyV22bqKJthZ 2uK5NHBIbFRaxdATFUQXu AXxUvsqUuZU3boLGgVOOd IC8+UY3zMPNpDczlvFJjx 8Z1xJW0X89jwe2qDXszhN T2YEAzYbPlcjhos1jjsIn 6IDcuNmluOyBt AJUhgG74UOD3zN43Pm65t VZkrWXwo8lixKv8UaVuUU JyIQA4bQslCRrag6HoBHU fL07nlQOid5L9 QNFqcQbovIVnVjXifBQ9a U4jBPshyckyk7qtfuhlNs h5ll24sQOdy2B8xWD5F2Z jmjA0XSOrjHZt XxmhaXDPzZ9idzcvn0gyt qazAvJmZZLmLKz2ZKv7YH QvlSqpDaGjFN13CFM9KKL lvbNyE9BvESQt uHbaCzG0j5G4Xn0XW4BXJ chqF9IVYINOEWlbqME+PC 54uw54K7TfQazyGpz9WLX oCPJ9tBS7yU2c GPQwRSqvt3N8jZP6I0Aqr iTusp0na2abRIUfLPwnS6 0vkYImu0F3OTBhfXO0ITC yvYjhEmNgaK34 Oyc+RSMlgKqpw4NxEmmay 0evf0baqFx4AgijQIVlyy VocWtnDZG8t6JfUc5gPPL meQS0cXG6jI8t CmVzQlL8XPfsU908XuMae VRhOhfwF81tM9RvhIF+PH NlEpe0CFUjnBudFC1qF2Z hZGRpbmctbGVm bApwIF4tOMYhhzyeNWJat R1aTBGcJ4t2MjQzGiM1MG hxY1HsOKQnzvgpBk38tI4 yYbIfPaG8ZVzg W2DsqsZ5UFQrmBBnHYcaR NB9R34xp6Z0SCKiHYXwEB Q7xZO2eS3lqJkjwqqmoTV mdDsgdmVydGlj KYfaZVaqI347FSJdfTewG kNvZGluZyBEYXRlOiAgMD YvMDYvMjAyMzwvdGQ+PHR cTLP9bPxhXVJp iFMbGJskAt4edJeqzHjhO H4oVHKkfeobVLKtiT0zMI PaeYWkqTvvAN7pCDUjgsb gr549JnVkBCD0 PEOarGHmS3NhqM5pLxSjV QLrHNIbN8SswVHhOGkyQ3 05MEaqFfK7FTEtqsDwG5L sLWFsaWduOiB0 f9Z4Vn3Df3YatigtE6Ylv TXkIcDeRiolBZf8X8MpRo wvdHI+AV70MMDeBE01JSh 2GYE8oEilABit UJQgF2NhgR8xNwZsACVoA GRkOyc+PHRhYmxlIHdpZH RoPScxMDAlJyBzdHlsZT0 aZw5bHZJdSBBc dDzxgZTlUnZoa6hlEDTyX VziPK1poRvvJ1JqrXD8AV Iyx2s7Kb82H90zE3LvdCR +HYKuuPW0kJI4 xQ0hGpToFqJ1IQrmX257A kSsaGLuYuikx3nzc2xvbQ k6XtC0WWIraqMiaUkfYXU 2a5WxTx65M81v IHdpZHRoPSIxNSUiIHZhb Lpkvh8mqU2bGs6+PGNvbC Z2zXE7sB3rUkWbBzN1PYr cF298JaLugENo Gniqg2rob2brqId6SyJlY XIsfmColKlqRHN1p7EjWg 81L0QppEjbj0EiUtq1yz1 7zGExc3O2sON2 J0OaZPOjyrksjKZdaJihL A9oGTCdgbdiIOUasO1kFG TpV6y5OnSvMlF8JIwvT6F mxgV2FBHveUZb ZNInuLCCmG0icoupp6mrh czvTdJdQKLqMTu2MBw6ZN BdkUtdHwTkOTC7WaP5UQK 3vDGajH6igIjy nttisI1zBwe+WFG0pAStk DEQFM0dFnuzdGC+PHRkIH X5vAvcJSsfERMjhZ3lYYP oK2d0CgWaAwK6 JEnoS8NrvsT1PDNijFQrR FImfPEDzU0noxylt5vine ftFlDcEQVaYQo8ZKx3PHE saWduOiBsZWZ0 GsF4ZYQ5kMJnmU9liNmho xebxP0nSyy+QmlydGggRG E9EYg8Q0JlKgg1ENEojFx eKR4qaMNqCNkp Jr1ngJhvsRmsFV3cGVRli qpml550WaAgx6haGPTwoH HdZTlzVLI1Y78ts5M7OUG tWDEiWBJ3kQC8 eH2nkKjxshpmvYUemZcfp sHbpUxjREmyCIpuA557HS VjhRqtHaSmGIr7I9JuYsr 3DYBphOxzXI3a qFLsTBfnBb2aoSmbhVcvG P1aGXTfukxmu992AuYup9 auMZSfcTMmWOevARU7D37 uw3F9VLQfFFZj QYF3fKZ1tU3tsGvqtbaha GVmdDsgdmVydGljYWwtYW qdQ650JQMqgHcoIbNkoMy 7H2ZuJye5VMQh uFnbVR4yxTJyYNqtCt1iz FjgdEikDZ7uADBwprlms6 16BlBeh4jyUIHxrCTsPZm fDGU6H41vy9Q7 NPPsMYBoQUE7wNB0fL0ww GlnbjogbGVmdDsgdmVydG luEHorMShqX195TSSldPp nPlBhdGllbnQg ABsmTFw3P2SwWvwosQN+P A20NOVhHU22eJIcdVDgi0 zhpDv4NsXlIUFvDSS1gEi vGPtpu8NpRRHz A59jrCTjf1M0DANftLoys JPaDwObiYS5dV8dKQvmjv ixv4ntqvgiQdrzl7jhun4 1vP80Z78kDEsi ZHRoPSIzMCUiIHZhbGlnb h6ufL3qQa4+VBWnuHU8uU Q7gZ8uGIHrGuP8KHjzM47 9InRvcCIvPjxj y6qhp5kjmAg9PpT7VCZcg bDqjElwOTX7g7ZoOd48I8 9sIHdpZHRoPSIyMCUiIHZ pmDrqoh7sjH7z Ii8+YJRecRN0oDA5gC2eC zEkFyW7GTjjM096AjUvaK RgNituV46tN0QwfPM+PHR yWtb6WKYnmWvz RD8vqZXhRAzdJx2iZOC5R rLmJfJlFLwiN4JvJFFyqs tniaebqKZ1MJUgMFXsnH7 9Im1brHznBZTj lMQLzA0tbabqe4mjcmunA pYiULRiPYv4GJq2EIOhmS dpCtYcPGV4SxD7WHH0kEK drT7okHnglnkg zD8yS8WsYRNkerifWt03n M3nIpDtXrJ4TJsdRmd+TU cOBUIEWUDLGWFUTD9VZHh WN32BHE28IK01 tXIaj0S8iXC5R7IoQKTvu nuvamvsbJL9DWRvMZTxkZ 50oNCcGKoxTe0br5E8y09 2SOZnSDSlnN59 Fz3gvLspWKVijLFTvY7hy hoyb3chnexyUfAgWAJjPV g8KBq0NQMwvLsrZzQbNXV 9DiT6DNT1gBEr dL0jvNoonhszpV7aUaz+M DMvMDQvMTkzNTwvdGQ+PH CvGCM5nOkvKNdcORGipF6 mHMUcQ1u4AhEn YjO6GTtqU8FoDUEzeavkI a75lX3mFxHcScI2WSgqX6 ByurM1PGUrtDKoFYupPDJ 3S28uq2L6CBPo HIRhHQS7oUH2vG5jbWepp jogbGVmdDsgdmVydGljYW psBLinG691NGCtrCttBsz 4ZHnxDMNbQX11 JP34xJDry2K8lSB5D6CxF CLovvzlhbqzmVY4NGWjKU VvyJ19oUHuFIzvKu6hg5X 5m152RLDwXSUz fL26Tw6zxEslKBMryESGe Y8punvxm2bbrwxbRrAlZY UmSIi8PPn2KVTmaFmgDkO eMRR5XeM2XYZ4 vMLkkR1geFsixlnlrG3sE yc+TUFMRTwvdGQ+PHRkIH U2sRjbENxcPQFeyN9iFUM hH1q0ErVwZmO0 OCezB7LyMCIymywaLi81v T6gBdFpIcW1LAyaV3Ysse P8CGBorUAoAReiHIB0N22 gc5S8TDNuJASx ISW4vRJ8hY4mzRxoqlbiq GVmdDsgdmVydGljYWwtYW khO552EGZthJysHpCbxVN XrNHuUYN8YH50 PK07L7QoThebaMLdcRD+P HRhYmxlIHdpZHRoPScxMD NyGlYbvEpaAA3rMg4sIJF yLWNvbGxhcHNl FpTli8iySIZbNEptTF2yl KmmU2WooKB2QWBsn7l6Fr 71G53oZ9PeiFR+PGNvbCB 7eJQ6lK2xJtTi AgV9BZpbQ569OiLujZPcG bgba7rhx1rrmFm7MkYeKD OsnaVbfBoqSVP2x5NbLl1 5F31dXHyvONRg HENvONYtPWOqiIjbkb9gq G9wIi8+XONoyRE9qLT5mF 9xOzBhBuD3FJoyD572KxK wbJOnZbnaX70m J5LauZP+ITHqOkv9DFMlc AtrHL0xgTAtSSpoPg6nEL K8KbVzXfPfOIkbA3BzOMW pbmctcmlnaHQ6 YYDsRMVvaH20If0vbFtwY k1nBAGbIVJ2UFCuqMPtY1 DmeX0gHzLeYUStBYXjZ5K oqRMiGBnfA057 BSbaKeP0ZJApumZpE6CmS BKmlPkrNdC9j8I1Ih8CcF sqzUWyLA4lEgVgLOt8K1O nTcu2BYJpvPnj NY9yhBRhFFxsDt6glZbcz PevWB3eMTFjgmdkc437Mx Ulh2wqCDOjkYBaYVlnETC 8P72ml7I1FRHc PEQsDKI0jAZ7nZ2uoAkan jogbGVmdDsgdmVydGljYW pzFBznI432LELrrTfgQdE VEqe2B3IvAnu6 AIZapErhDH1oiOGeFPlrM h7icRzfnKwiNM2xMLLlri jji872AeFpr4jrSMKutXU hKXypDOF3A23s s9D7NRCxSBCbYBL8iLF0m Q3hhNnhtaqhqVJaeLmapu YnyIloHUlqRVvnU061ADI biMhvUe7WGyh3 B5BrPme4IAZlgZasZS5uq UQdVHdeEz6phPblaMlfGH 6cHNJnhdqgi987JlVxi6u kIDEwcHQgVGlt VZL4Z26dd1G1IKIuQRUxV WG7bYH7uL2gnBbflyindH VmdDsgdmVydGljYWwtYWx oK328XXUgeCyp PlBheWVyOjwvdGQ+PC90c a58U9ImPswjVpl2FMPdWN L0eVC5oG6oLFRaHWarp3W 6cWS6L7JufuTa ci1 (more content not included)... [facility] Consent Formson 01-01-2023 Consent Forms [id number] [id number] [facility] Inpatient Patient Summaryon 12-31-2022 [place] [address] Patient Discharge Instructions Name: RY LERNER : 1935 Patient Address: [address] [place] [address] Primary Care Provider: Name: John Nieves MD After you are discharged if you find you have any questions, please, call [phone] ext [phone] to speak to a nurse. Discharge Diagnosis: Carpal tunnel syndrome, right Prescription Information: If you have been given a prescription for narcotics, seek immediate medical attention if you have any difficulty breathing or any sudden status changes such as confusion and sleepiness. If you or anyone you know is experiencing suicidal thoughts, mental health, alcohol and/or drug addiction problems; contact the [facility] 18/02 Crisis Hotline -Text 4HPMQ ov 519389. If you received any narcotics, sedation, or [...] business decisions or sign any legal documents [facility] would like to thank you for allowing us to assist you with your healthcare needs. The following includes patient education materials and information regarding your injury/illness. ODALIS LERNERTON PERRY has been given the following list of follow-up instructions, prescriptions, and patient education materials: Follow-up Instructions With: Address: When: MARJ PEREZ [address] [place] [address], [address] [place] [address] [facility] (1) 01/09/2023 11:00 AM Medications During the [...] release capsule) 1 cap(s) Oral every day. [place]'s wort (Lindsey's wort oral tablet) 1 tab(s) [...] 3. DO NOT lift heavy objects or cost engineer forcefully with your hand 4. Change your [...] or concerns, please call the office at [phone] 7. Follow up as scheduled Viruses or Bacteria What?s got you sick? Antibiotics only treat bacterial infections. Viral illnesses cannot be treated with antibiotics. When an antibiotic is not prescribed, ask your healthcare professional for tips on how to relieve symptoms and feel better. Usual Cause Illness Viruses Bacteria Antibiotic Neede (more content not included)... Normal [facility] MAGR Intraoperative Recordon 12-31-2022 [facility] Intraoperative Record MAGR Intra-Op Record Summary Primary Physician: Ward Martinez DO Finalized Date/Time: 12/31/22 11:56:55 Pt. Name: RY LERNER/Sex: 1935 MALE Med Rec #: [id number] Physician: Ward Martinez DO Financial #: [id number] Pt. Type: D Room/Bed: / Admit/Disch: 12/31/22 08:09:06 - 12/31/22 09:54:00 Institution: Case Times [facility] Entry 1 Patient In Room Time 12/31/22 09:15:00 Out Room Time 12/31/22 09:46:00 Anesthesia Start Time 12/31/22 09:29:00 Stop Time 12/31/22 09:41:00 Surgery Start Time 12/31/22 09:29:00 Stop Time 12/31/22 09:41:00 Last Modified By: Chelita Borjas RN 12/31/22 09:49:25 Case Attendance MAGR Entry 1 Entry 2 Entry 3 Case Attendee Ward Martinez RN, Lyndsey Christianson RN, DO Role Performed Surgeon - Primary Manager Ems Manager Ems Time In 12/31/22 09:15:00 12/31/22 09:15:00 12/31/22 09:15:00 Time Out 12/31/22 09:37:00 12/31/22 09:46:00 12/31/22 09:46:00 Procedure Carpal Tunnel Carpal Tunnel Carpal Tunnel Release(Right) Release(Right) Release(Right) Last Modified By: [place] PERSAUD, Chelita Borjas RN, Chelita Mc RN 12/31/22 09:49:26 12/31/22 09:49:26 12/31/22 09:49:26 Entry 4 Entry 5 Case Attendee Lavern Vasques Kelly CST COIL REWIND MACHINE OPERATOR Role Performed Bank Worker Scrub Personnel Time In 12/31/22 09:15:00 12/31/22 [...] By Chelita Borjas RN Scrub 10% Povidone-Iodine [place] Prep Area (Im.270) Elbow and forearm, Prep Area Details Right Hand, Wrist Skin Prep Agent Dry Yes Without Pooling Hair Removal Syntegrity Hair Removal Methods No hair removal performed Outcome Met (O.100) Yes Last Modified By: Chelita Borjas RN 12/31/22 11:55:12 Pos (more content not included)... [facility] MAGR Preoperative Recordon 0 12-31-2022 MAGR Preoperative Record MAGR Pre-Op Record Summary Primary Physician: Ward Martinez DO Finalized Date/Time: 12/31/22 09:13:14 Pt. Name: RY LERNER /Sex: 1935 MALE Med Rec #: [id number] Physician: Ward Martinez DO Financial #: [id number] Pt. Type: D Room/Bed: / Admit/Disch: 12/31/22 [...] By: Vicky Ponce RN 12/31/22 09:13 [facility] Patient Handouton 12-31-[address] 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 Keep your hand elevated above your elbow for the first 24 hours after surgery 2. Wiggle your fingers frequently while awake 3. DO NOT lift heavy objects or cost engineer forcefully with your hand 4. Change your [...] or concerns, please call the office at [phone] 7. Follow up as scheduled Normal [facility] CBC AUTO DIFFon 12-25-2022 BASO # 0.0 103/ul Normal 0.0-0.1 [facility] Comment on above: Performed By: #### C BC #### [facility] [address] [place] [address] Dr. Rashmi Nolan Basophils/100 WBC (Bld) 0.6 % Normal 0.2-2.0 [facility] Comment on above: Performed By: #### C BC #### [facility] [address] [place] [address] Dr. Rashmi Nolan EO # 0.2 103/ul Normal 0.0-0.7 [facility] Comment on above: Performed By: #### C BC #### [facility] [address] [place] [address] Dr. Rashmi Nolan Eosinophils/100 WBC (Bld) 6.9 % Normal 0.9-7.0 [facility] Comment on above: Performed By: #### C BC #### [facility] [address] [place] [address] Dr. Rashmi Nolan Erythrocyte distribution width (RBC) [Ratio] 14.0 % Normal 11.0-15.0 [facility] Comment on above: Performed By: #### C BC #### [facility] [address] [place] [address] Dr. Rashmi Nolan Hematocrit (Bld) [Volume fraction] 29.8 % Critically low 42.0-54.0 [facility] Comment on above: Performed By: #### C BC #### [facility] [address] [place] [address] Dr. Rashmi Nolan Hemoglobin (Bld) [Mass/Vol] 9.8 g/dL Critically low 14.0-18.0 [facility] Comment on above: Performed By: #### C BC #### [facility] [address] [place] [address] Dr. Rashmi Nolan IG # 0.02 10e3/ul Normal 0.00-0.03 [facility] Comment on above: Performed By: #### C BC #### [facility] [address] [place] [address] Dr. Rashmi Nolan IG % 0.6 % Critically high 0.0-0.5 [facility] Comment on above: Performed By: #### C BC #### [facility] [address] [place] [address] Dr. Rashmi Nolan LYMPH # 0.8 103/ul Critically low 1.2-3.8 [facility] Comment on above: Performed By: #### C BC #### [facility] [address] [place] [address] Dr. Rashmi Nolan Lymphocytes/100 WBC (Bld) 25.1 % Normal 20.5-60.0 [facility] Comment on above: Performed By: #### C BC #### [facility] [address] [place] [address] Dr. Rashmi Nolan MANUAL DIFF REQ NO Normal [facility] Comment on above: Performed By: #### C BC #### [facility] [address] [place] [address] Dr. Rashmi Nolan MCH (RBC) [Entitic mass] 33.0 pg Normal 25.9-34.0 [facility] Comment on above: Performed By: #### C BC #### [facility] [address] [place] [address] Dr. Rashmi Nolan MCHC (RBC) [Mass/Vol] 32.9 g/dL Normal 29.9-35.2 [facility] Comment on above: Performed By: #### C BC #### [facility] [address] [place] [address] Dr. Rashmi Nolan MCV (RBC) [Entitic vol] 100.3 fL Critically high 80.0-94.0 [facility] Comment on above: Performed By: #### C BC #### [facility] [address] [address] [address] Rashmi Nolan MONO # 0.3 103/ul Normal 0.3-0.8 [facility] Comment on above: Performed By: #### C BC #### [facility] [address] [address] [address] Rashmi Nolan Monocytes/100 WBC (Bld) 9.6 % Normal 1.7-12.0 [facility] Comment on above: Performed By: #### C BC #### [facility] [address] [place] [address] Dr. Rashmi Nolan NEUT # 1.9 103/ul Normal 1.4-6.5 [facility] Comment on above: Performed By: #### C BC #### [facility] [address] [place] [address] Dr. Rashmi Nolan Neutrophils/100 WBC (Bld) 57.2 % Normal 43.0-75.0 [facility] Comment on above: Performed By: #### C BC #### [facility] [address] [place] [address] Dr. Rashmi Nolan Platelet mean volume (Bld) [Entitic vol] 10.5 fL Normal 9.5-13.5 [facility] Comment on above: Performed By: #### C BC #### [facility] [address] [place] [address] Dr. Rashmi Nolan PLT 129 103/ul Critically low 150-450 [facility] Comment on above: Performed By: #### C BC #### [facility] [address] [place], [place] [id number] Dr. Rashmi Nolan RBC 2.97 106/ul Critically low 4.70-6.10 [facility] Comment on above: Performed By: #### C BC #### [facility] [address] [place] [address] Dr. Rashmi Nolan WBC 3.3 103/ul Critically low 4.0-11.0 [facility] Comment on above: Performed By: #### C BC #### [facility] [address] [place] [address] Dr. Rashmi Nolan PROTIMEon 12-25-2022 INR Coag (PPP) [Relative time] 1.03 {INR} Normal [facility] Comment on above: Performed By: #### B MP #### [facility] [address] [place] [address] Dr. Rashmi Nolan INR GUIDELINES SEE BELOW Normal [facility] Comment on above: Result Comment: ENOC RED INR: 2.0 - 3.0 CONDITIONS NOT LISTED BELOW 2.5 - 3.5 FOR PROSTHETIC HEART VALVE REPLACEMENT 2.5 - 3.5 RECURRENT THROMBOSIS Performed By: #### B MP #### [facility] [address] [place] [address] Dr. Rashmi Nolan PT Coag (PPP) [Time] 10.9 s Normal 9.0-11.6 [facility] Comment on above: Performed By: #### B MP #### [facility] [address] [place] [address] Dr. Rashmi Nolan PTTon 12-25-2022 aPTT Coag (Bld) [Time] 25.6 s Normal 22.3-36.2 [facility] Comment on above: Performed By: #### C BC #### [facility] [address] [place] [address] Dr. Rashmi Nolan Coding Summaryon 12-19-2022 Coding Summary HTMLBase 64 QrpnwbelUJu9pZv+PGhlY WQ+EP7GVNSuJ39ktTTcbQ 8tG1TBIDbOKfvwNYVMYVu YFnDkchTaWF6jbUNpAFHi IC8+SN2gBJWzSupxeLPgl 1R1ySH3M25chi3tIMaxwK K5TPKxXiRzrdqfx9iefQr 6IDcuNmluOyBt WBLdsJ65PTX8gZ20Mu77x FLcmCPte0nlcZw0JdLgRA FmNZL1xNmlXBenv1NpHAW aL56zpCYfq3T8 KJIbwAuutSUbSuDwdJI9q S9hVQigxiycr6iamdrjLd l1yl22bIUeg5N2cSY7P2T jmqN9LKPsaKSf XntnhKRJaU5hviwkw7yut abgXiSdTRHjSQj0BWy9VI KntEpvRlZcFH66IHD5MWY yxyHgO9YfPFAi zJfyDaP6n7Q2Xx8BH1ZZZ folY5HDCDLGBWodqDJ+PC 89id14V0VgYytnLzs2MZV mPDO9nEN0rW3r YPKcFRgim9X3oES9I3Cca hZiiv0sv7qnQIYzWOgpL4 2zaMEti9C6KCQcgPS1JUH arJviVyMijE45 Oyc+LZJrrRegs7OiFepls 6bso2fqxBp3EosjIUXhng SfoGwmOPD0b6IgDd6xZDB qsPH8kDE9nN7y VfFbUuO8AFrmN491RdTzf DJoOpqtH79cJ8WuuWF+PH UrUxh9CZGdzNusAV1uW9I hZGRpbmctbGVm kOirIK4aRCHesnucLQRzp X9kINTwB0y5CzCkVgY1DH haE7JuFUJogitbVa94wT1 nUsUoMoN4TKhm K5OwyuQ2XRClrAAvXNmnX WC6G97tt3Q8VENeMIVdGI W0uNF3rL7gyEbrilpnoNC mdDsgdmVydGlj VDloTWfaR837VFVxkQcpF kNvZGluZyBEYXRlOiAgMD UvMjQvMjAyMzwvdGQ+PHR gROM0jPhvNENj uSKvLKgrVm5whVwgwHodS N2zJUVjtbooKVRtuH5hSL FdtTJewDsmRF5jIBTsrkf si858XdKzSSC3 NAIjkNXvF0ThlJ5mToBdY UHpOTFrX3BubMRjYYckE7 37YOexScC5BOAnmqIdM6I sLWFsaWduOiB0 h6A0Vh6Jx4BhsrerM7Fig PDzDhIfQyzsFGr4T9RuIe wvdHI+SR92OTMuPO86VTw 6VWE6fGtuWNyx OWZoY5IixY6pPjDzFGNoA GRkOyc+PHRhYmxlIHdpZH RoPScxMDAlJyBzdHlsZT0 jLz2hVCWqYZEj rMpaaGZdGaHwt5cxFVMeV CkwDP1qyXfwF1GcdGY8TV Wdw7y8Zv56U63jR9UooXQ +FYVjaEK3bAS8 cR3gVdWxBwS4YYyeL573R uJyyPCzUyirl5hqa5insZ n5TwV6PSUxnoXpeGwjROE 8u7LgAn49K60f IHdpZHRoPSIxNSUiIHZhb Dejwt5lrM5nEy4+PGNvbC R9pCE5cW9zZcGjGrT7EKa mY982QgOfvMQo Wblus3pgy4knkJc6PbYaH WLxoyDxbTnoCPR7r0YlUi 42C2XcaMhly0MgSbf7op4 8uKFhc2L5vMN5 Z1MlPPMqwnhpuMXnzQmcV T8eZOJyrqcwAXWfrZ1nSK WoI3w2HrImGkE0LEfiC1G skoG0FRQgkOBo BXXqcABEmA2suuscg1uom mksVkFrCIImBCs8QVf5JP RcuYjrYrZkZVA8UwX0EYO 1fILygM1xmRol hpqriA1nQxv+OTB5gIJmq CFIQI0aDclxoQP+PHRkIH J0fLexWVwkSQEveM4wJDS uB6w2IgFtJyR0 ZOvcT5MymmF5LBUcdUIwO YWubPVPoL0kmtacm7cmac iqBgWfGNAcHXe3DDs1DLP saWduOiBsZWZ0 VbY3XOH1eIMamV9akBsam dpykR3nGfi+QmlydGggRG S8TIg7E4AeEqe0ZMAhiBy yBJ1mlPVcFWep Ca0hhYrnrUoiKO6qHWCpz tlni377CjWor6zqQXCvjZ XbNWqqXCD9A39ro0I9LGJ mXVDkWEI2tGL0 sC4feCpanmlgmTHtlDmmb lJqrVruIXioFZxrO174RK VtmXohMeTxSTe0D9VmGmu 7KCOrrDkzXW3d kYLxNZczNw0zuVoutWydI Z8qJKNlykifu793WgXhx1 qpSVAgxFEhYAidZAT4O53 fv5F6BAQqQGMp MRK3lMB2uJ0saTzhtvtcb GVmdDsgdmVydGljYWwtYW xsC338PAZarEujMcWreEj 9U3LrOba2USSk oQsoHT5gnFXcHIqfDr5xn ZcarLhjFR2fBOBwwxgfg1 86HsGby0ezWQMhpJVkYBi gUFE3Q23ue6J9 OZXiQQMaKSP2tJQ2jX6qb GlnbjogbGVmdDsgdmVydG hpZEquSXloJ507VJOzlBb nPlBhdGllbnQg HVjnDHj1O5UfDqfavNW+P R85LBKjEI48cESavAXrc7 vknTe0AmUsASBfLDC0vFu aRRrjk3PsDGDl Y95ujOUpb1R1OTGxdZiwh WBiZrBobMN2yK0tVJppea xdc8pjonahTxmvo4cukt5 9wO72B93lEEci ZHRoPSIzMCUiIHZhbGlnb j4pgI7uPa9+DMCqhUH1xG V8uA2fHPItKoI1FGrsL05 9InRvcCIvPjxj o7jcr7llkAx9GnE5WVFdl dGqaFleKCE7j7DwIy96U7 9sIHdpZHRoPSIyMCUiIHZ tuPdkbl6uaK3i Ii8+YIHweVU0xCG2dR3sG uHkEuU7UTxzE227XeRtqO QvHzscJ14tW6UdyWX+PHR hByj7AEJzaGmm DF3kvXLpKBmiJa1lSSI8N eJrBeNzGLgvO7NqTWAefc tpoajnsVS1NHIqUQGgrO8 8Bc8gdMneKOEs gRJZpS1nlfalo9nztmlwN iDfUZThWUa2JKx5CBJrwJ gyTgEcWRQ3AcD0XFS7hUE lnM9ezHcebtvh jR0fR8MhLHKmvcrpLj45q N3fUmMoToJ0XMmqOif+TU kHVQFCWJOLQBUJTI3WDQu JI92BFE62JN25 xLOxy3F9eXD8F5XeJSGih srrtmkldVY6BHIuLXEcuC 13mZVpBAdhUm8lz5W3w46 1YFVjCSKicV01 Oq1ofXowBVRivADQmP3zc zbbm3xnmxsqQjLyVODfIW p9TDu7IYAzuRdbXzSlMXF 1XuA6IMO5oKQj rM8ssTpjohsncX4kDpe+M DMvMDQvMTkzNTwvdGQ+PH JxHXY3lLcyVVjfDUPjkM8 cRDPlH0l4OyOr JuQ8QOhwO4UnBTHltfnmX h33zI2uMxKcFiP4TUohX6 VvvkB1VUJbuJYuLBlhQGJ 8W04mc4N1QSGt LVOvHVN5lSG8iC4irRkmv jogbGVmdDsgdmVydGljYW pnAVwiK679QQFdgVhePwe 1EBmgNREoNR83 HC05lDZxx9B1jNB4Q3LdB SHfukzgiexkrFO5BDRbKP TjgG16gONbSKpjUi2yc8W 4a015SEDdMUUk kV16Ef2jiTmtAWTpjDGYa O6qywutv6fsanwoOvNtEQ FiHRs7XHr8OREtvUpoLjB pWBF1ZeR4SVW5 vLWkdH7piQrtpkywiB6uG yc+TUFMRTwvdGQ+PHRkIH J0rDmcVDldOILayJ8aINN aI7e6XfOaQzE9 TLpqJ9SfJSRjghckRc46b S8mVlFlJlB2DNodU3Ouyc A8LNBlaOAyQKmiMKT1E68 gn6Y7XVTiPDNa SPP7mIA1jT3bhUxfeyohw GVmdDsgdmVydGljYWwtYW uqN855LBNteYjjJqPuuXZ PcDQrFBS8JI86 GQ02V5WgMvnrpDVxuNJ+P HRhYmxlIHdpZHRoPScxMD VbGjBonQamML8pSf4dDCV yLWNvbGxhcHNl DnXsb8uuYUZmNLwiCS5rm PvfF0YanUP2MFVdj3n9Uz 35S77hA8HfuWG+PGNvbCB 2vRJ0iE7zJlIk UkP4NWyqA490UdOuiGJwA ibwo1hzh6mhaCf1DnNyFP SbxoQtkDrvAWE2l8NiCf1 2B82nRAmdDAJs ZIBnQTPwSBVrwUfemy7ox G9wIi8+OLWvbAJ1kKA7cJ 0oDeKwUbL1GOyzW868GaJ tzOTjUinbN65j I1QkpHT+WPJsZbu4GXHpe ZkuEH3jsRWsWHnkKh6pKR D0DfDyIfUgIFndD2BxLCV pbmctcmlnaHQ6 GOLnVCPtjG50Fi2rcAnfW j0lMLTwFOT6VEYjmGXnF2 PzxG6rEjSrXCOpWIJhD1R gdAOgKOrxY433 VYslVxC4HKJgihQqM4TgI CJofImoXsY7y9J4Ho1PtT pkmEYeVY6hZdGlJMg8I5G yMip8DBZlqVck NT5yiGIxGSmkYi3jeWbbu MghGH8hCZXczczbo497Fo Swz0mgDSOphQTuSUnwAPE 4Y35kt5P6FRSm EBHlWZX7yVI3uE7gpFeee jogbGVmdDsgdmVydGljYW sxVYyxZ857VXYbeUdmBoN GOgr3Z7SbFgq7 HUCnfJjoXJ1csMJwHUgnA z1ubIfbxBogAC2fRXHfhh jas624ZoPne5koJZNopXP tGRwvUWR6B79f v5E5YMKoNELcSXD0wDA2b M2bdSabcmvbcYKdqJyvrs JsmRpfQYteERkgT212USQ vuNloQn4ZAvc6 Z8QaYul5VDLgdRkdBD5ad DFwXKrhZv4yqRdpfQnnUA 3bCVYaviaea948YsUho0z kIDEwcHQgVGlt PHS1J86xo7C2GPIfKHLnY SW0gTH2uM0xkUqwcopxpU VmdDsgdmVydGljYWwtYWx kI390JALdvQlj PlBheWVyOjwvdGQ+PC90c t35X1HbYoumNcn5RIMwSI Q1xFL5yX6tNWDpJLysn0R 1gKH8C1IyczKq ci1 (more content not included)... Normal [facility] CBC AUTO DIFFon 12-14-2022 BASO # 0.0 103/ul Normal 0.0-0.1 [facility] Comment on above: Performed By: #### C BC #### [facility] [address] [place] [address] Dr. Rashmi Nolan Basophils/100 WBC (Bld) 0.6 % Normal 0.2-2.0 [facility] [place] Comment on above: Performed By: #### C BC #### [facility] [address] [place] [address] Dr. Rashmi Nolan EO # 0.4 103/ul Normal 0.0-0.7 [facility] Comment on above: Performed By: #### C BC #### [facility] [address] [place] [address] Dr. Rashmi Nolan Eosinophils/100 WBC (Bld) 11.9 % Critically high 0.9-7.0 [facility] [place] Comment on above: Performed By: #### C BC #### [facility] [address] [place] [address] Dr. Rashmi Nolan Erythrocyte distribution width (RBC) [Ratio] 15.2 % Critically high 11.0-15.0 [facility] [place] Comment on above: Performed By: #### C BC #### [facility] [address] [place] [address] Dr. Rashmi Nolan Hematocrit (Bld) [Volume fraction] 26.3 % Critically low 42.0-54.0 [facility] [place] Comment on above: Performed By: #### C BC #### [facility] [address] [place] [address] Dr. Rashmi Nolan Hemoglobin (Bld) [Mass/Vol] 8.9 g/dL Critically low 14.0-18.0 [facility] [place] Comment on above: Performed By: #### C BC #### [facility] [address] [place] [address] Dr. Rashmi Nolan IG # 0.01 10e3/ul Normal 0.00-0.03 [facility] [place] Comment on above: Performed By: #### C BC #### [facility] [address] [place] [address] Dr. Rashmi Nolan IG % 0.3 % Normal 0.0-0.5 [facility] [place] Comment on above: Performed By: #### C BC #### [facility] [address] [place] [address] Dr. Rashmi Nolan LYMPH # 0.8 103/ul Critically low 1.2-3.8 [facility] Comment on above: Performed By: #### C BC #### [facility] [address] [place] [address] Dr. Rashmi Nolan Lymphocytes/100 WBC (Bld) 25.1 % Normal 20.5-60.0 [facility] [place] Comment on above: Performed By: #### C BC #### [facility] [address] [place] [address] Dr. Rashmi Nolan MANUAL DIFF REQ NO Normal [facility] Comment on above: Performed By: #### C BC #### [facility] [address] [place] [address] Dr. Rashmi Nolan MCH (RBC) [Entitic mass] 33.0 pg Normal 25.9-34.0 [facility] [place] Comment on above: Performed By: #### C BC #### [facility] [address] [place] [address] Dr. Rashmi Nolan MCHC (RBC) [Mass/Vol] 33.8 g/dL Normal 29.9-35.2 [facility] Comment on above: Performed By: #### C BC #### [facility] [address] [place] [address] Dr. Rashmi Nolan MCV (RBC) [Entitic vol] 97.4 fL Critically high 80.0-94.0 [facility] [place] Comment on above: Performed By: #### C BC #### [facility] [address] [place] [address] Dr. Rashmi Nolan MONO # 0.3 103/ul Normal 0.3-0.8 [facility] Comment on above: Performed By: #### C BC #### [facility] [address] [place] [address] Dr. Rashmi Nolan Monocytes/100 WBC (Bld) 9.0 % Normal 1.7-12.0 [facility] [place] Comment on above: Performed By: #### C BC #### [facility] [address] [place] [address] Dr. Rashmi Nolan NEUT # 1.7 103/ul Normal 1.4-6.5 [facility] [place] Comment on above: Performed By: #### C BC #### [facility] [address] [place] [address] Dr. Rashmi Nolan Neutrophils/100 WBC (Bld) 53.1 % Normal 43.0-75.0 [facility] [place] Comment on above: Performed By: #### C BC #### [facility] [address] [place] [address] Dr. Rashmi Nolan Platelet mean volume (Bld) [Entitic vol] 10.2 fL Normal 9.5-13.5 [facility] [place] Comment on above: Performed By: #### C BC #### [facility] [address] [place] [address] Dr. Rashmi Nolan PLT 139 103/ul Critically low 150-450 [facility] Comment on above: Performed By: #### C BC #### [facility] [address] [place] [address] Dr. Rashmi Nolan RBC 2.70 106/ul Critically low 4.70-6.10 [facility] Comment on above: Performed By: #### C BC #### [facility] [address] [place], [place] [id number] Dr. Rashmi Nolan WBC 3.1 103/ul Critically low 4.0-11.0 [facility] Comment on above: Performed By: #### C BC #### [facility] [address] [place] [address] Dr. Rashmi Nolan MAGR Intraoperative Recordon 12-14-2022 MAGR Intraoperative Record MAGR Intra-Op Record Summary Primary Physician: Ward Martinez DO Finalized Date/Time: 12/14/22 09:30:19 Pt. Name: RY LERNER/Sex: 1935 MALE Med Rec #: [id number] Physician: Ward Martinez DO Financial #: [id number] Pt. Type: D Room/Bed: / Admit/Disch: 12/10/22 [...] Andrew DO Role Performed Surgeon - Primary Manager Ems Manager Ems Time In 12/10/22 15:05:00 12/10/22 14:54:00 12/10/22 14:54:00 Time Out 12/10/22 15:30:00 12/10/22 15:30:00 12/10/22 15:30:00 Procedure Carpal Tunnel Carpal Tunnel Carpal Tunnel Release(Left) Release(Left) Release(Left) Last Modified By: Maile Palmer RN, Barbara RN Long, Barbara RN 12/10/22 15:29:30 12/10/22 15:29:30 12/10/22 15:29:30 Entry 4 Entry 5 Case Attendee Macie Licea CST, CST, Brandi Role Performed Bank Worker Scrub Personnel Time In 12/10/22 14:54:00 12/10/22 [...] By Maile Palmer RN Scrub 10% Povidone-Iodine [place] Prep Area (Im.270) Arm lower Prep Area [...] injury Counts (more content not included)... Normal [facility] PROF CHEM 8 (BAS METB)on Anion gap [Moles/Vol] 12.6 mmol/L Normal [facility] Comment on above: Performed By: #### B MP #### [facility] [address] [place] [address] Dr. Rashmi Nolan Calcium [Mass/Vol] 9.7 mg/dL Normal 8.5-10.1 [facility] Comment on above: Performed By: #### B MP #### [facility] [address] [address] [address] Rashmi Nolan Chloride [Moles/Vol] 108 mmol/L Critically high 98-107 [facility] [place] Comment on above: Performed By: #### B MP #### [facility] [address] [address] [address] Rashmi Nolan CO2 [Moles/Vol] 24.5 mmol/L Normal 21.0-32.0 [facility] Comment on above: Performed By: #### B MP #### [facility] [address] [address] [address] Rashmi Nolan Creatinine [Mass/Vol] 1.68 mg/dL Critically high 0.70-1.30 [facility] [place] Comment on above: Performed By: #### B MP #### [facility] [address] [address] [address] Rashmi Nolan EGFR-AF ZIMBABWEAN 47 mL/min/1.73m2 Critically low >=60 [facility] [place] Comment on above: Performed By: #### B MP #### [facility] [address] [address] [address] Rashmi Nolan EGFR-NON AF ZIMBABWEAN 39 mL/min/1.73m2 Critically low >=60 [facility] Comment on above: Performed By: #### B MP #### [facility] [address] [address] [address] Rashmi Nolan Glucose [Mass/Vol] 91 mg/dL Normal 74-106 [facility] Comment on above: Performed By: #### B MP #### [facility] [address] [address] [address] Rashmi Nolan Potassium [Moles/Vol] 5.1 mmol/L Normal 3.5-5.1 [facility] [place] Comment on above: Performed By: #### B MP #### [facility] [address] [place] [address] Dr. Rashmi Nolan Sodium [Moles/Vol] 140 mmol/L Normal 136-[address] [facility] Comment on above: Performed By: #### B MP #### [facility] [address] [place] [address] Dr. Rashmi Nolan Urea nitrogen [Mass/Vol] 27.0 mg/dL Critically high 7.0-18.0 [facility] [place] Comment on above: Performed By: #### B MP #### [facility] [address] [place] [address] Dr. Rashmi Nolan Urea nitrogen/Creatinine [Mass ratio] 16.1 mg/mg Normal [facility] [place] Comment on above: Performed By: #### B MP #### [facility] [address] [address] [address] Rashmi Nolan CBC AUTO DIFFon 12-13-2022 BASO # 0.0 103/ul Normal 0.0-0.1 [facility] [place] Comment on above: Performed By: #### C BC #### [facility] [address] [place] [address] Dr. Rashmi Nolan Basophils/100 WBC (Bld) 0.6 % Normal 0.2-2.0 [facility] [place] Comment on above: Performed By: #### C BC #### [facility] [address] [place] [address] Dr. Rashmi Nolan EO # 0.4 103/ul Normal 0.0-0.7 [facility] Comment on above: Performed By: #### C BC #### [facility] [address] [place] [address] Dr. Rashmi Nolan Eosinophils/100 WBC (Bld) 10.3 % Critically high 0.9-7.0 [facility] [place] Comment on above: Performed By: #### C BC #### [facility] [address] [place] [address] Dr. Rashmi Nolan Erythrocyte distribution width (RBC) [Ratio] 15.8 % Critically high 11.0-15.0 [facility] [place] Comment on above: Performed By: #### C BC #### [facility] [address] [place] [address] Dr. Rashmi Nolan Hematocrit (Bld) [Volume fraction] 25.7 % Critically low 42.0-54.0 [facility] [place] Comment on above: Performed By: #### C BC #### [facility] [address] [place] [address] Dr. Rashmi Nolan Hemoglobin (Bld) [Mass/Vol] 8.5 g/dL Critically low 14.0-18.0 [facility] [place] Comment on above: Performed By: #### C BC #### [facility] [address] [place] [address] Dr. Rashmi Nolan IG # 0.00 10e3/ul Normal 0.00-0.03 [facility] Comment on above: Performed By: #### C BC #### [facility] [address] [place] [address] Dr. Rashmi Nolan IG % 0.0 % Normal 0.0-0.5 [facility] Comment on above: Performed By: #### C BC #### [facility] [address] [place] [address] Dr. Rashmi Nolan LYMPH # 0.8 103/ul Critically low 1.2-3.8 [facility] Comment on above: Performed By: #### C BC #### [facility] [address] [place] [address] Dr. Rashmi Nolan Lymphocytes/100 WBC (Bld) 23.5 % Normal 20.5-60.0 [facility] Comment on above: Performed By: #### C BC #### [facility] [address] [place] [address] Dr. Rashmi Nolan MANUAL DIFF REQ NO Normal [facility] Comment on above: Performed By: #### C BC #### [facility] [address] [place] [address] Dr. Rashmi Nolan MCH (RBC) [Entitic mass] 32.9 pg Normal 25.9-34.0 [facility] Comment on above: Performed By: #### C BC #### [facility] [address] [place] [address] Dr. Rashmi Nolan MCHC (RBC) [Mass/Vol] 33.1 g/dL Normal 29.9-35.2 [facility] Comment on above: Performed By: #### C BC #### [facility] [address] [place] [address] Dr. Rashmi Nolan MCV (RBC) [Entitic vol] 99.6 fL Critically high 80.0-94.0 [facility] Comment on above: Performed By: #### C BC #### [facility] [address] [place] [address] Dr. Rashmi Nolan MONO # 0.3 103/ul Normal 0.3-0.8 [facility] Comment on above: Performed By: #### C BC #### [facility] [address] [place] [address] Dr. Rashmi Nolan Monocytes/100 WBC (Bld) 8.9 % Normal 1.7-12.0 [facility] Comment on above: Performed By: #### C BC #### [facility] [address] [place] [address] Dr. Rashmi Nolan NEUT # 2.0 103/ul Normal 1.4-6.5 [facility] Comment on above: Performed By: #### C BC #### [facility] [address] [place] [address] Dr. Rashmi Nolan Neutrophils/100 WBC (Bld) 56.7 % Normal 43.0-75.0 [facility] [place] Comment on above: Performed By: #### C BC #### [facility] [address] [place] [address] Dr. Rashmi Nolan Platelet mean volume (Bld) [Entitic vol] 10.5 fL Normal 9.5-13.5 [facility] [place] Comment on above: Performed By: #### C BC #### [facility] [address] [place] [address] Dr. Rashmi Nolan PLT 134 103/ul Critically low 150-450 [facility] Comment on above: Performed By: #### C BC #### [facility] [address] [place] [address] Dr. Rashmi Nolan RBC 2.58 106/ul Critically low 4.70-6.10 [facility] Comment on above: Performed By: #### C BC #### [facility] [address] [place] [address] Dr. Rashmi Nolan WBC 3.6 103/ul Critically low 4.0-11.0 [facility] Comment on above: Performed By: #### C BC #### [facility] [address] [place] [address] Dr. Rashim Nolan PROF CHEM 8 (BAS METB)on Anion gap [Moles/Vol] 11.7 mmol/L Normal [facility] Comment on above: Performed By: #### C BC #### [facility] [address] [place] [address] Dr. Rashmi Nolan Calcium [Mass/Vol] 9.5 mg/dL Normal 8.5-10.1 [facility] Comment on above: Performed By: #### C BC #### [facility] [address] [place] [address] Dr. Rashmi Nolan Chloride [Moles/Vol] 110 mmol/L Critically high 98-107 [facility] [place] Comment on above: Performed By: #### C BC #### [facility] [address] [place] [address] Dr. Rashmi Nolan CO2 [Moles/Vol] 25.1 mmol/L Normal 21.0-32.0 [facility] Comment on above: Performed By: #### C BC #### [facility] [address] [address] [address] Rashmi Nolan Creatinine [Mass/Vol] 1.69 mg/dL Critically high 0.70-1.30 [facility] [place] Comment on above: Performed By: #### C BC #### [facility] [address] [address] [address] Rashmi Nolan EGFR-AF ZIMBABWEAN 47 mL/min/1.73m2 Critically low >=60 [facility] [place] Comment on above: Performed By: #### C BC #### [facility] [address] [address] [address] Rashmi Nolan EGFR-NON AF ZIMBABWEAN 38 mL/min/1.73m2 Critically low >=60 [facility] [place] Comment on above: Performed By: #### C BC #### [facility] [address] [address] [address] Rashmi Nolan Glucose [Mass/Vol] 93 mg/dL Normal 74-106 [facility] Comment on above: Performed By: #### C BC #### [facility] [address] [address] [address] Rashmi Nolan Potassium [Moles/Vol] 5.8 mmol/L Critically high 3.5-5.1 [facility] [place] Comment on above: Performed By: #### C BC #### [facility] [address] [address] [address] Rashmi Nolan Sodium [Moles/Vol] 141 mmol/L Normal 136-145 [facility] Comment on above: Performed By: #### C BC #### [facility] [address] [address] [address] Rashmi Nolan Urea nitrogen [Mass/Vol] 35.0 mg/dL Critically high 7.0-18.0 [facility] [place] Comment on above: Performed By: #### C BC #### [facility] [address] [address] [address] Rashmi Nolan Urea nitrogen/Creatinine [Mass ratio] 20.7 mg/mg Normal [facility] Comment on above: Performed By: #### C BC #### [facility] [address] [place] [address] Dr. Rashmi Nolan ABO RH RETYPEon 12-12-2022 ABO and Rh group Nom (Bld) DONE Normal [facility] Comment on above: Performed By: #### C BC #### [facility] [address] [place] [address] Dr. Rashmi Nolan CBC AUTO DIFFon 12-12-2022 BASO # 0.0 103/ul Normal 0.0-0.1 [facility] [place] Comment on above: Performed By: #### C BC #### [facility] [address] [place] [address] Dr. Rashmi Nolan Basophils/100 WBC (Bld) 0.6 % Normal 0.2-2.0 [facility] [place] Comment on above: Performed By: #### C BC #### [facility] [address] [place] [address] Dr. Rashmi Nolan EO # 0.3 103/ul Normal 0.0-0.7 [facility] [place] Comment on above: Performed By: #### C BC #### [facility] [address] [place] [address] Dr. Rashmi Nolan Eosinophils/100 WBC (Bld) 7.6 % Critically high 0.9-7.0 [facility] [place] Comment on above: Performed By: #### C BC #### [facility] [address] [place] [address] Dr. Rashmi Nolan Erythrocyte distribution width (RBC) [Ratio] 16.4 % Critically high 11.0-15.0 [facility] Comment on above: Performed By: #### C BC #### [facility] [address] [place] [address] Dr. Rashmi Nolan Hematocrit (Bld) [Volume fraction] 27.2 % Critically low 42.0-54.0 [facility] [place] Comment on above: Performed By: #### C BC #### [facility] [address] [place] [address] Dr. Rashmi Nolan Hemoglobin (Bld) [Mass/Vol] 9.1 g/dL Critically low 14.0-18.0 [facility] [place] Comment on above: Performed By: #### C BC #### [facility] [address] [place] [address] Dr. Rashmi Nolan IG # 0.01 10e3/ul Normal 0.00-0.03 [facility] Comment on above: Performed By: #### C BC #### [facility] [address] [place] [address] Dr. Rashmi Nolan IG % 0.3 % Normal 0.0-0.5 [facility] [place] Comment on above: Performed By: #### C BC #### [facility] [address] [place] [address] Dr. Rashmi Nolan LYMPH # 0.9 103/ul Critically low 1.2-3.8 [facility] Comment on above: Performed By: #### C BC #### [facility] [address] [place] [address] Dr. Rashmi Nolan Lymphocytes/100 WBC (Bld) 25.3 % Normal 20.5-60.0 [facility] [place] Comment on above: Performed By: #### C BC #### [facility] [address] [place] [address] Dr. Rashmi Nolan MANUAL DIFF REQ NO Normal [facility] Comment on above: Performed By: #### C BC #### [facility] [address] [place] [address] Dr. Rashmi Nolan MCH (RBC) [Entitic mass] 33.0 pg Normal 25.9-34.0 [facility] Comment on above: Performed By: #### C BC #### [facility] [address] [place] [address] Dr. Rashmi Nolan MCHC (RBC) [Mass/Vol] 33.5 g/dL Normal 29.9-35.2 [facility] Comment on above: Performed By: #### C BC #### [facility] [address] [place] [address] Dr. Rashmi Nolan MCV (RBC) [Entitic vol] 98.6 fL Critically high 80.0-94.0 [facility] [place] Comment on above: Performed By: #### C BC #### [facility] [address] [address] [address] Rashmi Nolan MONO # 0.3 103/ul Normal 0.3-0.8 [facility] [place] Comment on above: Performed By: #### C BC #### [facility] [address] [address] [address] Rashmi Nolan Monocytes/100 WBC (Bld) 8.1 % Normal 1.7-12.0 [facility] [place] Comment on above: Performed By: #### C BC #### [facility] [address] [place] [address] Dr. Rashmi Nolan NEUT # 2.0 103/ul Normal 1.4-6.5 [facility] [place] Comment on above: Performed By: #### C BC #### [facility] [address] [place] [address] Dr. Rashmi Nolan Neutrophils/100 WBC (Bld) 58.1 % Normal 43.0-75.0 [facility] Comment on above: Performed By: #### C BC #### [facility] [address] [place] [address] Dr. Rashmi Nolan Platelet mean volume (Bld) [Entitic vol] 10.0 fL Normal 9.5-13.5 [facility] [place] Comment on above: Performed By: #### C BC #### [facility] [address] [place] [address] Dr. Rashmi Nolan PLT 147 103/ul Critically low 150-450 [facility] Comment on above: Performed By: #### C BC #### [facility] [address] [place] [address] Dr. Rashmi Nolan RBC 2.76 106/ul Critically low 4.70-6.10 [facility] Comment on above: Performed By: #### C BC #### [facility] [address] [place] [address] Dr. Rashmi Nolan WBC 3.4 103/ul Critically low 4.0-11.0 [facility] Comment on above: Performed By: #### C BC #### [facility] [address] [address] [address] Rashmi CULP # 0.0 103/ul Normal 0.0-0.1 [facility] [place] Comment on above: Performed By: #### C BC #### [facility] [address] [address] [address] Rashmi Nolan Basophils/100 WBC (Bld) 0.6 % Normal 0.2-2.0 [facility] [place] Comment on above: Performed By: #### C BC #### [facility] [address] [place] [address] Dr. Rashmi Nolan EO # 0.2 103/ul Normal 0.0-0.7 [facility] [place] Comment on above: Performed By: #### C BC #### [facility] [address] [place] [address] Dr. Rashmi Nolan Eosinophils/100 WBC (Bld) 6.6 % Normal 0.9-7.0 [facility] [place] Comment on above: Performed By: #### C BC #### [facility] [address] [place] [address] Dr. Rashmi Nolan Erythrocyte distribution width (RBC) [Ratio] 16.4 % Critically high 11.0-15.0 [facility] [place] Comment on above: Performed By: #### C BC #### [facility] [address] [place] [address] Dr. Rashmi Nolan Hematocrit (Bld) [Volume fraction] 26.1 % Critically low 42.0-54.0 [facility] [place] Comment on above: Performed By: #### C BC #### [facility] [address] [place] [address] Dr. Rashmi Nolan Hemoglobin (Bld) [Mass/Vol] 8.5 g/dL Critically low 14.0-18.0 [facility] [place] Comment on above: Result Comment: rcvd . blood Performed By: #### C BC #### [facility] [address] [place] [address] Dr. Rashmi Nolan IG # 0.01 10e3/ul Normal 0.00-0.03 [facility] [place] Comment on above: Performed By: #### C BC #### [facility] [address] [place] [address] Dr. Rashmi Nolan IG % 0.3 % Normal 0.0-0.5 [facility] [place] Comment on above: Performed By: #### C BC #### [facility] [address] [place] [address] Dr. Rashmi Nolan LYMPH # 0.7 103/ul Critically low 1.2-3.8 [facility] Comment on above: Performed By: #### C BC #### [facility] [address] [place] [address] Dr. Rashmi Nolan Lymphocytes/100 WBC (Bld) 20.2 % Critically low 20.5-60.0 [facility] [place] Comment on above: Performed By: #### C BC #### [facility] [address] [place] [address] Dr. Rashmi Nolan MANUAL DIFF REQ NO Normal [facility] Comment on above: Performed By: #### C BC #### [facility] [address] [place] [address] Dr. Rashmi Nolan MCH (RBC) [Entitic mass] 32.7 pg Normal 25.9-34.0 [facility] Comment on above: Performed By: #### C BC #### [facility] [address] [place] [address] Dr. Rashmi Nolan MCHC (RBC) [Mass/Vol] 32.6 g/dL Normal 29.9-35.2 [facility] Comment on above: Performed By: #### C BC #### [facility] [address] [place] [address] Dr. Rashmi Nolan MCV (RBC) [Entitic vol] 100.4 fL Critically high 80.0-94.0 [facility] [place] Comment on above: Performed By: #### C BC #### [facility] [address] [place] [address] Dr. Rashmi Nolan MONO # 0.3 103/ul Normal 0.3-0.8 [facility] [place] Comment on above: Performed By: #### C BC #### [facility] [address] [address] [address] Rashmi Nolan Monocytes/100 WBC (Bld) 7.7 % Normal 1.7-12.0 [facility] [place] Comment on above: Performed By: #### C BC #### [facility] [address] [address] [address] Rashmi Nolan NEUT # 2.3 103/ul Normal 1.4-6.5 [facility] [place] Comment on above: Performed By: #### C BC #### [facility] [address] [address] [address] Rashmi Nolan Neutrophils/100 WBC (Bld) 64.6 % Normal 43.0-75.0 [facility] [place] Comment on above: Performed By: #### C BC #### [facility] [address] [place] [address] Dr. Rashmi Nolan Platelet mean volume (Bld) [Entitic vol] 9.9 fL Normal 9.5-13.5 [facility] [place] Comment on above: Performed By: #### C BC #### [facility] [address] [place] [address] Dr. Rashmi Nolan PLT 130 103/ul Critically low 150-450 [facility] Comment on above: Performed By: #### C BC #### [facility] [address] [address] [address] Rashmi Nolan RBC 2.60 106/ul Critically low 4.70-6.10 [facility] Comment on above: Performed By: #### C BC #### [facility] [address] [address] [address] Rashmi Nolan WBC 3.6 103/ul Critically low 4.0-11.0 [facility] Comment on above: Performed By: #### C BC #### [facility] [address] [place] [address] Dr. Rashmi Nolan PRBC LEUKOREDUCEDon 12-13-19 ABO and Rh group Nom (Bld) Cross Match Result Compatible Unit Blood Type O Pos Unit Number [id number] Status Information Issued Product ID Red Blood Cells Product Code [id number] Issue Date/Time [id number] Cross Match Result Compatible Unit Blood Type O Pos Unit Number [id number] Status Information Issued Product ID Red Blood Cells Product Code [id number] Issue Date/Time [id number] Normal [facility] [place] Comment on above: Performed By: #### C BC #### [facility] [address] [place] [address] Dr. Rashmi Nolan PROF CHEM 8 (BAS METB)on Anion gap [Moles/Vol] 14.8 mmol/L Normal [facility] Comment on above: Performed By: #### B MP #### [facility] [address] [place] [address] Dr. Rashmi Nolan Calcium [Mass/Vol] 9.2 mg/dL Normal 8.5-10.1 [facility] Comment on above: Performed By: #### B MP #### [facility] [address] [place] [address] Dr. Rashmi Nolan Chloride [Moles/Vol] 110 mmol/L Critically high 98-107 [facility] [place] Comment on above: Performed By: #### B MP #### [facility] [address] [place] [address] Dr. Rashmi Nolan CO2 [Moles/Vol] 23.5 mmol/L Normal 21.0-32.0 [facility] Comment on above: Performed By: #### B MP #### [facility] [address] [place] [address] Dr. Rashmi Nolan Creatinine [Mass/Vol] 1.77 mg/dL Critically high 0.70-1.30 [facility] [place] Comment on above: Performed By: #### B MP #### [facility] [address] [place] [address] Dr. Rashmi Nolan EGFR-AF ZIMBABWEAN 44 mL/min/1.73m2 Critically low >=60 [facility] [place] Comment on above: Performed By: #### B MP #### [facility] [address] [place] [address] Dr. Rashmi Nolan EGFR-NON AF ZIMBABWEAN 36 mL/min/1.73m2 Critically low >=60 [facility] [place] Comment on above: Performed By: #### B MP #### [facility] [address] [address] [address] Rashmi Nolan Glucose [Mass/Vol] 103 mg/dL Normal 74-106 [facility] Comment on above: Performed By: #### B MP #### [facility] [address] [address] [address] Rashmi Nolan Potassium [Moles/Vol] 5.3 mmol/L Critically high 3.5-5.1 [facility] [place] Comment on above: Performed By: #### B MP #### [facility] [address] [address] [address] Rashmi Nolan Sodium [Moles/Vol] 143 mmol/L Normal 136-145 [facility] Comment on above: Performed By: #### B MP #### [facility] [address] [address] [address] Rashmi Nolan Urea nitrogen [Mass/Vol] 54.0 mg/dL Critically high 7.0-18.0 [facility] [place] Comment on above: Performed By: #### B MP #### [facility] [address] [place] [address] Dr. Rashmi Nolan Urea nitrogen/Creatinine [Mass ratio] 30.5 mg/mg Normal [facility] [place] Comment on above: Performed By: #### B MP #### [facility] [address] [place] [address] Dr. Rashmi Nolan CBC AUTO DIFFon 12-11-2022 BASO # 0.0 103/ul Normal 0.0-0.1 [facility] [place] Comment on above: Performed By: #### C BC #### [facility] [address] [address] [address] Rashmi Nolan Basophils/100 WBC (Bld) 0.4 % Normal 0.2-2.0 [facility] [place] Comment on above: Performed By: #### C BC #### [facility] [address] [place] [address] Dr. Rashmi Nolan EO # 0.2 103/ul Normal 0.0-0.7 [facility] [place] Comment on above: Performed By: #### C BC #### [facility] [address] [place] [address] Dr. Rashmi Nolan Eosinophils/100 WBC (Bld) 5.2 % Normal 0.9-7.0 [facility] [place] Comment on above: Performed By: #### C BC #### [facility] [address] [place] [address] Dr. Rashmi Nolan Erythrocyte distribution width (RBC) [Ratio] 14.6 % Normal 11.0-15.0 [facility] [place] Comment on above: Performed By: #### C BC #### [facility] [address] [place] [address] Dr. Rashmi Nolan Hematocrit (Bld) [Volume fraction] 23.7 % Critically low 42.0-54.0 [facility] [place] Comment on above: Performed By: #### C BC #### [facility] [address] [place] [address] Dr. Rashmi Nolan Hemoglobin (Bld) [Mass/Vol] 7.8 g/dL Critically low 14.0-18.0 [facility] [place] Comment on above: Performed By: #### C BC #### [facility] [address] [place] [address] Dr. Rashmi Nolan IG # 0.01 10e3/ul Normal 0.00-0.03 [facility] [place] Comment on above: Performed By: #### C BC #### [facility] [address] [place] [address] Dr. Rashmi Nolan IG % 0.2 % Normal 0.0-0.5 [facility] Comment on above: Performed By: #### C BC #### [facility] [address] [place] [address] Dr. Rashmi Nolan LYMPH # 0.9 103/ul Critically low 1.2-3.8 [facility] Comment on above: Performed By: #### C BC #### [facility] [address] [place] [address] Dr. Rashmi Nolan Lymphocytes/100 WBC (Bld) 19.6 % Critically low 20.5-60.0 [facility] [place] Comment on above: Performed By: #### C BC #### [facility] [address] [place] [address] Dr. Rashmi Nolan MANUAL DIFF REQ NO Normal [facility] Comment on above: Performed By: #### C BC #### [facility] [address] [place] [address] Dr. Rashmi Nolan MCH (RBC) [Entitic mass] 34.7 pg Critically high 25.9-34.0 [facility] [place] Comment on above: Performed By: #### C BC #### [facility] [address] [place] [address] Dr. Rashmi Nolan MCHC (RBC) [Mass/Vol] 32.9 g/dL Normal 29.9-35.2 [facility] [place] Comment on above: Performed By: #### C BC #### [facility] [address] [place] [address] Dr. Rashmi Nolan MCV (RBC) [Entitic vol] 105.3 fL Critically high 80.0-94.0 [facility] [place] Comment on above: Performed By: #### C BC #### [facility] [address] [place] [address] Dr. Rashmi Nolan MONO # 0.3 103/ul Normal 0.3-0.8 [facility] [place] Comment on above: Performed By: #### C BC #### [facility] [address] [place] [address] Dr. Rashmi Nolan Monocytes/100 WBC (Bld) 7.2 % Normal 1.7-12.0 [facility] Comment on above: Performed By: #### C BC #### [facility] [address] [place] [address] Dr. Rashmi Nolan NEUT # 3.0 103/ul Normal 1.4-6.5 [facility] Comment on above: Performed By: #### C BC #### [facility] [address] [place] [address] Dr. Rashmi Nolan Neutrophils/100 WBC (Bld) 67.4 % Normal 43.0-75.0 [facility] [place] Comment on above: Performed By: #### C BC #### [facility] [address] [address] [address] Rashmi Nolan Platelet mean volume (Bld) [Entitic vol] 9.8 fL Normal 9.5-13.5 [facility] [place] Comment on above: Performed By: #### C BC #### [facility] [address] [address] [address] Rashmi Nolan PLT 156 103/ul Normal 150-450 [facility] Comment on above: Performed By: #### C BC #### [facility] [address] [address] [address] Rashmi Nolan RBC 2.25 106/ul Critically low 4.70-6.10 [facility] Comment on above: Performed By: #### C BC #### [facility] [address] [place] [address] Dr. Rashmi Nolan WBC 4.5 103/ul Normal 4.0-11.0 [facility] [place] Comment on above: Performed By: #### C BC #### [facility] [address] [place] [address] Dr. Rashmi Nolan CHEMISTRYOrdered By: SYSTEM SYSTEM on 12-11-2022 Iron binding capacity [Mass/Vol] 417 ug/dL High 250 - 400 mcg/dL [facility] Remisol Transferrin [Mass/Vol] 298 mg/dL Normal 200 - 370 mg/dL [facility] Remisol Consent Formson 12-11-2022 Consent Forms [id number] Normal [facility] HEMATOLOGYOrdered By: SYSTEM SYSTEM on 12-11-2022 [...] 5.2 E9/L Normal 4.0 - 11.0 E9/L [facility] HemeAutoSS MICRO OTHER TESTSOrdered By: Daniella Case on 12-11-2022 Occult Bld Stl Positive *ABN* (12/11/22 12:14 PM) Invalid Interpretation Code Negative [facility] Man Sero PROF 14(COMP METB)on 023 Albumin [Mass/Vol] 3.8 g/dL Normal 3.4-5.0 [facility] Comment on above: Performed By: #### B MP #### [facility] [address] [address] [address] Rashmi Nolan Albumin/Globulin [Mass ratio] 1.1 {ratio} Normal [facility] [place] Comment on above: Performed By: #### B MP #### [facility] [address] [address] [address] Rashim Nolan ALP [Catalytic activity/Vol] 178 U/L Critically high 46-116 [facility] [place] Comment on above: Performed By: #### B MP #### [facility] [address] [address] [address] Rashmi Nolan ALT [Catalytic activity/Vol] 17 U/L Normal 16-63 [facility] [place] Comment on above: Performed By: #### B MP #### [facility] [address] [address] [address] Rashmi Nolan Anion gap [Moles/Vol] 15.6 mmol/L Normal [facility] Comment on above: Performed By: #### B MP #### [facility] [address] [address] [address] Rashmi Nolan AST [Catalytic activity/Vol] 12 U/L Critically low 15-37 [facility] [place] Comment on above: Performed By: #### B MP #### [facility] [address] [address] [address] Rashmi Nolan Bilirubin [Mass/Vol] 0.2 mg/dL Normal 0.2-1.0 [facility] [place] Comment on above: Performed By: #### B MP #### [facility] [address] [address] [address] Rashmi Nolan Calcium [Mass/Vol] 9.5 mg/dL Normal 8.5-10.1 [facility] Comment on above: Performed By: #### B MP #### [facility] [address] [address] [address] Rashmi Nolan Chloride [Moles/Vol] 109 mmol/L Critically high 98-107 [facility] [place] Comment on above: Performed By: #### B MP #### [facility] [address] [address] [address] Rashmi Nolan CO2 [Moles/Vol] 22.5 mmol/L Normal 21.0-32.0 [facility] Comment on above: Performed By: #### B MP #### [facility] [address] [address] [address] Rashmi Nolan Creatinine [Mass/Vol] 2.11 mg/dL Critically high 0.70-1.30 [facility] [place] Comment on above: Performed By: #### B MP #### [facility] [address] [address] [address] Rashmi Nolan EGFR-AF ZIMBABWEAN 36 mL/min/1.73m2 Critically low >=60 [facility] [place] Comment on above: Performed By: #### B MP #### [facility] [address] [address] [address] Rashmi Nolan EGFR-NON AF ZIMBABWEAN 30 mL/min/1.73m2 Critically low >=60 [facility] [place] Comment on above: Performed By: #### B MP #### [facility] [address] [address] [address] Rashmi Nolan Globulin (S) [Mass/Vol] 3.4 g/dL Normal [facility] [place] Comment on above: Performed By: #### B MP #### [facility] [address] [address] [address] Rashmi Nolan Glucose [Mass/Vol] 115 mg/dL Critically high 74-106 [facility] Comment on above: Performed By: #### B MP #### [facility] [address] [address] [address] Rashmi Nolan Potassium [Moles/Vol] 5.1 mmol/L Normal 3.5-5.1 [facility] Comment on above: Performed By: #### B MP #### [facility] [address] [address] [address] Rashmi Nolan Protein [Mass/Vol] 7.2 g/dL Normal 6.4-8.[address] [facility] Comment on above: Performed By: #### B MP #### [facility] [address] [address] [address] Rashmi Nolan Sodium [Moles/Vol] 142 mmol/L Normal 136-[address] [facility] Comment on above: Performed By: #### B MP #### [facility] [address] [place] [address] Dr. Rashmi Nolan Urea nitrogen [Mass/Vol] 57.0 mg/dL Critically high 7.0-18.0 [facility] [place] Comment on above: Performed By: #### B MP #### [facility] [address] [address] [address] Rashmi Nolan Urea nitrogen/Creatinine [Mass ratio] 27.0 mg/mg Normal [facility] [place] Comment on above: Performed By: #### B MP #### [facility] [address] [address] [address] Rashmi Nolan PROTIMEon 12-11-2022 INR Coag (PPP) [Relative time] 1.95 {INR} Normal [facility] [place] Comment on above: Performed By: #### P T, PTT #### [facility] [address] [address] [address] Rashmi Nolan INR GUIDELINES SEE BELOW Normal [facility] Comment on above: Result Comment: ENOC RED INR: 2.0 - 3.0 CONDITIONS NOT LISTED BELOW 2.5 - 3.5 FOR PROSTHETIC HEART VALVE REPLACEMENT 2.5 - 3.5 RECURRENT THROMBOSIS Performed By: #### P T, PTT #### [facility] [address] [address] [address] Rashmi Nolan PT Coag (PPP) [Time] 19.9 s Critically high 9.0-11.6 [facility] Comment on above: Performed By: #### P T, PTT #### [facility] [address] [address] [address] Rashmi Nolan PTTon 12-11-2022 aPTT Coag (Bld) [Time] 30.3 s Normal 22.3-36.2 [facility] Comment on above: Performed By: #### P T, PTT #### [facility] [address] [address] [address] Rashmi Nolan TYPE AND SCREENon 12-11-2022 TYPE AND SCREEN Negative Normal [facility] Comment on above: Performed By: #### C BC #### [facility] [address] [address] [address] Rashmi Nolan XR CHEST 1 Von [...] STEPHANIE LIU Date: 2022-12-11 21:04 Normal [facility] Inpatient Patient Summaryon 12-10-2022 Inpatient [place] [address] Patient Discharge Instructions Name: RY LERNER : 1935 Patient Address: [address] [place] [address] Primary Care Provider: Name: John Nieves MD After you are discharged if you find you have any questions, please, call [phone] ext [phone] to speak to a nurse. 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 If you or anyone you know is experiencing suicidal thoughts, mental health, alcohol and/or drug addiction problems; contact the [facility] 18/02 Crisis Hotline -Text 4HZLF to 137198. If you received any narcotics, sedation, or [...] business decisions or sign any legal documents [facility] would like to thank you for allowing us to assist you with your healthcare needs. The following includes patient education materials and information regarding your injury/illness. RY LERNER has been given the following list of follow-up instructions, prescriptions, and patient education materials: Follow-up Instructions With: Address: When: Ward Martinez [address] [place] [address], [address] [place] [id number] Business (1) 12/18/2022 1:30 PM Medications During [...] 3. DO NOT lift heavy objects or cost engineer forcefully with your hand 4. Change your [...] or concerns, please call the office at [phone] 7. Follow up as scheduled Viruses or [...] and Prevention Septe (more content not included)... [facility]2022 [facility] Preoperative Record [facility] Pre-Op Record Summary Primary Physician: Ward Martinez DO Finalized Date/Time: 12/10/22 15:29:41 Pt. Name: RY LERNER/Sex: 1935 MALE Med Rec #: [id number] Physician: Ward Martinez DO Financial #: [id number] Pt. Type: D Room/Bed: / Admit/Disch: 12/10/22 [...] consent correct. General Comments: pt arrives to [facility] ambulatory. denies CP,cough,cold, COVID like symtpoms. 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 Finalized By: Maile Palmer RN Document Signatures Signed By: Maile Palmer RN 12/10/22 15:29 [facility] Patient Handouton 12-10-[address] 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 Keep your hand elevated above your elbow for the first 24 hours after surgery 2. Wiggle your fingers frequently while awake 3. DO NOT lift heavy objects or cost engineer forcefully with your hand 4. Change your [...] or concerns, please call the office at [phone] 7. Follow up as scheduled [facility] MAGNESIUMon 11-06-2022 Magnesium [Mass/Vol] 2.2 mg/dL Normal 1.8-2.4 [facility] Comment on above: Performed By: #### B MP, MG #### [facility] [address] [place] [address] Dr. Rashmi Nolan PROF CHEM 8 (BAS METB)on Anion gap [Moles/Vol] 15.0 mmol/L Normal [facility] Comment on above: Performed By: #### B MP, MG #### [facility] [address] [place] [address] Dr. Rashmi Nolan Calcium [Mass/Vol] 10.0 mg/dL Normal 8.5-10.1 [facility] Comment on above: Performed By: #### B MP, MG #### [facility] [address] [place] [address] Dr. Rashmi Nolan Chloride [Moles/Vol] 108 mmol/L Critically high 98-107 [facility] Comment on above: Performed By: #### B MP, MG #### [facility] [address] [place] [address] Dr. Rashmi Nolan CO2 [Moles/Vol] 25.4 mmol/L Normal 21.0-32.0 [facility] Comment on above: Performed By: #### B MP, MG #### [facility] [address] [place] [address] Dr. Rashmi Nolan Creatinine [Mass/Vol] 1.98 mg/dL Critically high 0.70-1.30 [facility] Comment on above: Performed By: #### B MP, MG #### [facility] [address] [place] [address] Dr. Rashmi Nolan EGFR-AF ZIMBABWEAN 39 mL/min/1.73m2 Critically low >=60 [facility] Comment on above: Performed By: #### B MP, MG #### [facility] [address] [place] [address] Dr. Rashmi Nolan EGFR-NON AF ZIMBABWEAN 32 mL/min/1.73m2 Critically low >=60 [facility] Comment on above: Performed By: #### B MP, MG #### [facility] [address] [address] [address] Rashmi Nolan Glucose [Mass/Vol] 99 mg/dL Normal 74-[address] [facility] Comment on above: Performed By: #### B MP, MG #### [facility] [address] [place] [address] Dr. Rashmi Nolan Potassium [Moles/Vol] 5.4 mmol/L Critically high 3.5-5.1 [facility] Comment on above: Performed By: #### B MP, MG #### [facility] [address] [place] [address] Dr. Rashmi Nolan Sodium [Moles/Vol] 143 mmol/L Normal 136-145 [facility] Comment on above: Performed By: #### B MP, MG #### [facility] [address] [place] [address] Dr. Rashmi Nolan Urea nitrogen [Mass/Vol] 52.0 mg/dL Critically high 7.0-18.0 [facility] Comment on above: Performed By: #### B MP, MG #### [facility] [facility] [address] [place] [address] Dr. Rashmi Nolan Urea nitrogen/Creatinine [Mass ratio] 26.3 mg/mg Normal [facility] [place] Comment on above: Performed By: #### B MP, MG #### [facility] [address] [place] [address] Dr. Rashmi Nolan VIT B12 AND FOLATEon 023 Cobalamin (Vitamin B12) [Mass/Vol] 514.0 pg/mL Normal 193.0-986.0 [facility] [place] Comment on above: Performed By: #### B MP #### [facility] [address] [place] [address] Dr. Rashmi Nolan FOLATE 10.00 ng/mL Normal 8.60-58.90 [facility] [place] Comment on above: Performed By: #### B MP #### [facility] [address] [place] [address] Dr. Rashmi Nolan CBC AUTO DIFFon 08-16-2022 BASO # 0.0 103/ul Normal 0.0-0.1 [facility] Comment on above: Performed By: #### B MP #### [facility] [address] [address] [address] Rashmi Nolan Basophils/100 WBC (Bld) 0.8 % Normal 0.2-2.0 [facility] [place] Comment on above: Performed By: #### B MP #### [facility] [address] [address] [address] Rashmi Nolan EO # 0.3 103/ul Normal 0.0-0.7 [facility] [place] Comment on above: Performed By: #### B MP #### [facility] [address] [address] [address] Rashmi Nolan Eosinophils/100 WBC (Bld) 7.8 % Critically high 0.9-7.0 [facility] [place] Comment on above: Performed By: #### B MP #### [facility] [address] [place] [address] Dr. Rashmi Nolan Erythrocyte distribution width (RBC) [Ratio] 13.2 % Normal 11.0-15.0 [facility] [place] Comment on above: Performed By: #### B MP #### [facility] [address] [place] [address] Dr. Rashmi Nolan Hematocrit (Bld) [Volume fraction] 33.2 % Critically low 42.0-54.0 [facility] [place] Comment on above: Performed By: #### B MP #### [facility] [address] [place] [address] Dr. Rashmi Nolan Hemoglobin (Bld) [Mass/Vol] 10.8 g/dL Critically low 14.0-18.0 [facility] [place] Comment on above: Performed By: #### B MP #### [facility] [address] [place] [address] Dr. Rashmi Nolan IG # 0.01 10e3/ul Normal 0.00-0.03 [facility] [place] Comment on above: Performed By: #### B MP #### [facility] [address] [place] [address] Dr. Rashmi Nolan IG % 0.3 % Normal 0.0-0.5 [facility] Comment on above: Performed By: #### B MP #### [facility] [address] [address] [address] Rashmi Nolan LYMPH # 1.0 103/ul Critically low 1.2-3.8 [facility] Comment on above: Performed By: #### B MP #### [facility] [address] [address] [address] Rashmi Nolan Lymphocytes/100 WBC (Bld) 24.7 % Normal 20.5-60.0 [facility] [place] Comment on above: Performed By: #### B MP #### [facility] [address] [address] [address] Rashmi Nolan MANUAL DIFF REQ NO Normal [facility] Comment on above: Performed By: #### B MP #### [facility] [address] [place] [address] Dr. Rashmi Nolan MCH (RBC) [Entitic mass] 33.0 pg Normal 25.9-34.0 [facility] [place] Comment on above: Performed By: #### B MP #### [facility] [address] [place] [address] Dr. Rashmi Nolan MCHC (RBC) [Mass/Vol] 32.5 g/dL Normal 29.9-35.2 [facility] [place] Comment on above: Performed By: #### B MP #### [facility] [address] [place] [address] Dr. Rashmi Nolan MCV (RBC) [Entitic vol] 101.5 fL Critically high 80.0-94.0 [facility] [place] Comment on above: Performed By: #### B MP #### [facility] [address] [address] [address] Rashmi Nolan MONO # 0.4 103/ul Normal 0.3-0.8 [facility] [place] Comment on above: Performed By: #### B MP #### [facility] [address] [place] [address] Dr. Rashmi Nolan Monocytes/100 WBC (Bld) 10.7 % Normal 1.7-12.0 [facility] [place] Comment on above: Performed By: #### B MP #### [facility] [address] [address] [address] Rashmi Nolan NEUT # 2.1 103/ul Normal 1.4-6.5 [facility] [place] Comment on above: Performed By: #### B MP #### [facility] [address] [address] [address] Rashmi Nolan Neutrophils/100 WBC (Bld) 55.7 % Normal 43.0-75.0 [facility] [place] Comment on above: Performed By: #### B MP #### [facility] [address] [address] [address] Rashmi Nolan Platelet mean volume (Bld) [Entitic vol] 10.5 fL Normal 9.5-13.5 [facility] [place] Comment on above: Performed By: #### B MP #### [facility] [address] [address] [address] Rashmi Nolan PLT 160 103/ul Normal 150-450 [facility] [place] Comment on above: Performed By: #### B MP #### [facility] [address] [address] [address] Rashmi Nolan RBC 3.27 106/ul Critically low 4.70-6.10 [facility] Comment on above: Performed By: #### B MP #### [facility] [address] [address] [address] Rashmi Nolan WBC 3.8 103/ul Critically low 4.0-11.0 [facility] Comment on above: Performed By: #### B MP #### [facility] [address] [address] [address] Rashmi Nolan LIPID PROFILEon 08-16-2022 CHOL-HDL RATIO NORM SEE BELOW Normal [facility] Comment on above: Result Comment: 3.3 - 4.4 LOW RISK 4.4 - 7.1 AVERAGE RISK 7.1 - 11.0 MODERATE RISK >11.0 HIGH RISK Performed By: #### B MP #### [facility] [address] [address] [address] Rashmi Nolan Cholesterol [Mass/Vol] 166 mg/dL Normal <=200 [facility] [place] Comment on above: Performed By: #### B MP #### [facility] [address] [address] [address] Rashmi Nolan Cholesterol in HDL [Mass/Vol] 42 mg/dL Normal 40-60 [facility] [place] Comment on above: Performed By: #### B MP #### [facility] [address] [address] [address] Rashmi Nolan Cholesterol in LDL [Mass/Vol] 110.4 mg/dL Normal [facility] [place] Comment on above: Performed By: #### B MP #### [facility] [address] [address] [address] Rashmi Nolan Cholesterol.total/Cho lesterol in HDL [Mass ratio] 4.0 {ratio} Normal [facility] [place] Comment on above: Performed By: #### B MP #### [facility] [address] [place] [address] Dr. Rashmi Nolan HDL NORMAL > or = 60 mg/dl - LO W CARDIOVASCULAR RISK <40 mg/dl - HIGH CARDIOVASCULAR RISK Normal [facility] [place] Comment on above: Performed By: #### B MP #### [facility] [address] [place] [address] Dr. Rashmi Nolan LDL CALC NORMAL SEE BELOW Normal [facility] Comment on above: Result Comment: <100 mg/dl OPTIMAL 100 - 129 mg/dl NEAR OR ABOVE OPTIMAL 130 - 159 mg/dl BORDERLINE HIGH 160 - 189 mg/dl HIGH >190 mg/dl VERY HIGH Performed By: #### B MP #### [facility] [address] [place] [address] Dr. Rashmi Nolan Triglyceride [Mass/Vol] 68 mg/dL Normal <=150 [facility] Comment on above: Performed By: #### B MP #### [facility] [address] [place] [address] Dr. Rashmi Nolan VLDL CALC 13.6 mg/dL Normal [facility] [place] Comment on above: Performed By: #### B MP #### [facility] [address] [place] [address] Dr. Rashmi Nolan PROF 14(COMP METB)on 023 Albumin [Mass/Vol] 3.9 g/dL Normal 3.4-5.0 [facility] Comment on above: Performed By: #### B MP #### [facility] [address] [place] [address] Dr. Rashmi Nolan Albumin/Globulin [Mass ratio] 1.1 {ratio} Normal [facility] [place] Comment on above: Performed By: #### B MP #### [facility] [address] [place] [address] Dr. Rashmi Nolan ALP [Catalytic activity/Vol] 190 U/L Critically high 46-116 [facility] [place] Comment on above: Performed By: #### B MP #### [facility] [address] [place] [address] Dr. Rashmi Nolan ALT [Catalytic activity/Vol] 15 U/L Critically low 16-63 [facility] [place] Comment on above: Performed By: #### B MP #### [facility] [address] [place] [address] Dr. Rashmi Nolan Anion gap [Moles/Vol] 15.2 mmol/L Normal [facility] Comment on above: Performed By: #### B MP #### [facility] [address] [place] [address] Dr. Rashmi Nolan AST [Catalytic activity/Vol] 17 U/L Normal 15-37 [facility] [place] Comment on above: Performed By: #### B MP #### [facility] [address] [place] [address] Dr. Rashmi Nolan Bilirubin [Mass/Vol] 0.4 mg/dL Normal 0.2-1.0 [facility] [place] Comment on above: Performed By: #### B MP #### [facility] [address] [place] [address] Dr. Rashmi Nolan Calcium [Mass/Vol] 10.0 mg/dL Normal 8.5-10.1 [facility] Comment on above: Performed By: #### B MP #### [facility] [address] [place] [address] Dr. Rashmi Nolan Chloride [Moles/Vol] 108 mmol/L Critically high 98-107 [facility] [place] Comment on above: Performed By: #### B MP #### [facility] [address] [place] [address] Dr. Rashmi Nolan CO2 [Moles/Vol] 25.8 mmol/L Normal 21.0-32.0 [facility] Comment on above: Performed By: #### B MP #### [facility] [address] [address] [address] Rashmi Nolan Creatinine [Mass/Vol] 1.78 mg/dL Critically high 0.70-1.30 [facility] [place] Comment on above: Performed By: #### B MP #### [facility] [address] [place] [address] Dr. Rashmi Nolan EGFR-AF ZIMBABWEAN 44 mL/min/1.73m2 Critically low >=60 [facility] [place] Comment on above: Performed By: #### B MP #### [facility] [address] [place] [address] Dr. Rashmi Nolan EGFR-NON AF ZIMBABWEAN 36 mL/min/1.73m2 Critically low >=60 [facility] [place] Comment on above: Performed By: #### B MP #### [facility] [address] [place] [address] Dr. Rashmi Nolan Globulin (S) [Mass/Vol] 3.7 g/dL Normal [facility] [place] Comment on above: Performed By: #### B MP #### [facility] [address] [place] [address] Dr. Rashmi Nolan Glucose [Mass/Vol] 100 mg/dL Normal 74-106 [facility] Comment on above: Performed By: #### B MP #### [facility] [address] [address] [address] Rashmi Nolan Potassium [Moles/Vol] 5.0 mmol/L Normal 3.5-5.1 [facility] [place] Comment on above: Performed By: #### B MP #### [facility] [address] [place] [address] Dr. Rashmi Nolan Protein [Mass/Vol] 7.6 g/dL Normal 6.4-8.2 [facility] Comment on above: Performed By: #### B MP #### [facility] [address] [place] [address] Dr. Rashmi Nolan Sodium [Moles/Vol] 144 mmol/L Normal 136-145 [facility] Comment on above: Performed By: #### B MP #### [facility] [address] [place] [address] Dr. Rashmi Nolan Urea nitrogen [Mass/Vol] 52.0 mg/dL Critically high 7.0-18.0 [facility] [place] Comment on above: Performed By: #### B MP #### [facility] [address] [place] [address] Dr. Rashmi Nolan Urea nitrogen/Creatinine [Mass ratio] 29.2 mg/mg Normal [facility] [place] Comment on above: Performed By: #### B MP #### [facility] [address] [place] [address] Dr. Rashmi Nolan PROF CHEM 8 (BAS METB)on Anion gap [Moles/Vol] 13.3 mmol/L Normal [facility] Comment on above: Performed By: #### C BC #### [facility] [address] [place] [address] Dr. Rashmi Nolan Calcium [Mass/Vol] 10.1 mg/dL Normal 8.5-10.1 [facility] Comment on above: Performed By: #### C BC #### [facility] [address] [place] [address] Dr. Rashmi Nolan Chloride [Moles/Vol] 104 mmol/L Normal 98-107 [facility] [place] Comment on above: Performed By: #### C BC #### [facility] [address] [place] [address] Dr. Rashmi Nolan CO2 [Moles/Vol] 28.7 mmol/L Normal 21.0-32.0 [facility] Comment on above: Performed By: #### C BC #### [facility] [address] [place] [address] Dr. Rashmi Nolan Creatinine [Mass/Vol] 1.87 mg/dL Critically high 0.70-1.30 [facility] [place] Comment on above: Performed By: #### C BC #### [facility] [address] [place] [address] Dr. Rashmi Nolan EGFR-AF ZIMBABWEAN 42 mL/min/1.73m2 Critically low >=60 [facility] [place] Comment on above: Performed By: #### C BC #### [facility] [address] [address] [address] Rashmi Nolan EGFR-NON AF ZIMBABWEAN 34 mL/min/1.73m2 Critically low >=60 [facility] [place] Comment on above: Performed By: #### C BC #### [facility] [address] [place] [address] Dr. Rashmi Nolan Glucose [Mass/Vol] 101 mg/dL Normal 74-106 [facility] Comment on above: Performed By: #### C BC #### [facility] [address] [place] [address] Dr. Rashmi Nolan Potassium [Moles/Vol] 5.0 mmol/L Normal 3.5-5.1 [facility] [place] Comment on above: Performed By: #### C BC #### [facility] [address] [place] [address] Dr. Rashmi Nolan Sodium [Moles/Vol] 141 mmol/L Normal 136-145 [facility] Comment on above: Performed By: #### C BC #### [facility] [address] [place] [address] Dr. Rashmi Nolan Urea nitrogen [Mass/Vol] 41.0 mg/dL Critically high 7.0-18.0 [facility] [place] Comment on above: Performed By: #### C BC #### [facility] [address] [place] [address] Dr. Rashmi Nolan Urea nitrogen/Creatinine [Mass ratio] 21.9 mg/mg Normal [facility] [place] Comment on above: Performed By: #### C BC #### [facility] [address] [place] [address] Dr. Rashmi Nolan COVID/FLU RT-PCRon 2 SARS-CoV-2 (COVID-19) RNA ETELVINA+probe Ql (Unsp spec) Positive [employer] Other COVID/FLU RT-PCR Negative [facility] [employer] Other BNPon 02-15-2022 Natriuretic peptide B (Bld) [Mass/Vol] 1653.0 pg/mL Normal <=1,800.0 [facility] [place] Comment on above: Performed By: #### C BC #### [facility] [address] [place] [address] Dr. Rashmi Nolan PROF CHEM 8 (BAS METB)on Anion gap [Moles/Vol] 15.8 mmol/L Normal [facility] Comment on above: Performed By: #### C BC #### [facility] [address] [place] [address] Dr. Rashmi Nolan Calcium [Mass/Vol] 9.6 mg/dL Normal 8.5-10.1 [facility] Comment on above: Performed By: #### C BC #### [facility] [address] [place] [address] Dr. Rashmi Nolan Chloride [Moles/Vol] 108 mmol/L Critically high 98-107 [facility] [place] Comment on above: Performed By: #### C BC #### [facility] [address] [place] [address] Dr. Rashmi Nolan CO2 [Moles/Vol] 24.2 mmol/L Normal 21.0-32.0 [facility] Comment on above: Performed By: #### C BC #### [facility] [address] [place] [address] Dr. Rashmi Nolan Creatinine [Mass/Vol] 1.87 mg/dL Critically high 0.70-1.30 [facility] [place] Comment on above: Performed By: #### C BC #### [facility] [address] [place] [address] Dr. Rashmi Nolan EGFR-AF ZIMBABWEAN 42 mL/min/1.73m2 Critically low >=60 [facility] [place] Comment on above: Performed By: #### C BC #### [facility] [address] [address] [address] Rashmi Nolan EGFR-NON AF ZIMBABWEAN 34 mL/min/1.73m2 Critically low >=60 [facility] [place] Comment on above: Performed By: #### C BC #### [facility] [address] [address] [address] Rashmi Nolan Glucose [Mass/Vol] 107 mg/dL Critically high 74-106 [facility] Comment on above: Performed By: #### C BC #### [facility] [address] [address] [address] Rashmi Nolan Potassium [Moles/Vol] 5.0 mmol/L Normal 3.5-5.1 [facility] [place] Comment on above: Performed By: #### C BC #### [facility] [address] [address] [address] Rashmi Nolan Sodium [Moles/Vol] 143 mmol/L Normal 136-145 [facility] Comment on above: Performed By: #### C BC #### [facility] [address] [address] [address] Rashmi Nolan Urea nitrogen [Mass/Vol] 28.0 mg/dL Critically high 7.0-18.0 [facility] [place] Comment on above: Performed By: #### C BC #### [facility] [address] [address] [address] Rashmi Nolan Urea nitrogen/Creatinine [Mass ratio] 15.0 mg/mg Normal [facility] [place] Comment on above: Performed By: #### C BC #### [facility] [address] [address] [address] Rashmi Nolan APTTon 10-13-2021 aPTT Coag (Bld) [Time] 36.7 s High 25.0-35.0 [facility] Comment on above: Result Comment: ALL [...] PURPOSE. Performed By: #### 5 [id number] #### [facility] [address] [place] [address], [facility] BASIC METABOLIC PANELon - Calcium [Mass/Vol] 9.7 mg/dL Normal 8.6-10.3 [facility] Comment on above: Performed By: #### 0 0071, [id number], [id number], [id number] #### [facility] [address] [place] [address], [facility] Chloride [Moles/Vol] 108 mmol/L High 98-107 [facility] Comment on above: Performed By: #### 0 0071, [id number], [id number], 05019 #### [facility] [address] [place] [address], [facility] CO2 [Moles/Vol] 23 mmol/L Normal 21-31 [facility] Comment on above: Performed By: #### 0 0071, [id number], 09649, 17677 #### [facility] [address] [place] [address], [facility] Creatinine [Mass/Vol] 1.98 mg/dL High 0.70-1.30 [facility] Comment on above: Performed By: #### 0 0071, [id number], 96793, 56058 #### [facility] [address] eGFR- 39 ml/min/1.73sq m Abnormal >60 [facility] Comment on above: Result Comment: Calc ulation may not be valid for patients over 70 years Performed By: #### 0 0071, [id number], [id number], 45048 #### [facility] [address] [place] [address], [facility] eGFR- non- 32 ml/min/1.73sq m Abnormal >60 [facility] Comment on above: Result Comment: Calc ulation may not be valid for patients over 70 years Performed By: #### 0 0071, [id number], 69516, 13006 #### [facility] [address] [place] [address], [facility] Glucose [Mass/Vol] 88 mg/dL Normal 70-100 [facility] Comment on above: Performed By: #### 0 0071, [id number], 29276, 76940 #### [facility] [address] [place] [address], [facility] Potassium [Moles/Vol] 4.8 mmol/L Normal 3.5-5.1 [facility] Comment on above: Performed By: #### 0 0071, 21425, 97873, 69863 #### [facility] [address] [place] [address], [facility] Sodium [Moles/Vol] 138 mmol/L Normal 136-145 [facility] Comment on above: Performed By: #### 0 0071, [id number], 48139, 10583 #### [facility] [address] [facility] [address] [place] [address], [facility] Urea nitrogen [Mass/Vol] 46 mg/dL High 7-25 [facility] Comment on above: Performed By: #### 0 0071, [id number], 75922, 51109 #### [facility] [address] [facility] [place] [address], [facility] BNP EDon 10-13-2021 Natriuretic peptide B (Bld) [Mass/Vol] 428 pg/mL High 0-100 [facility] Comment on above: Result Comment: Give n the appropriate clinical setting a BNP result of >100 pg/mL indicates congestive heart failure. Performed By: #### 3 [id number] #### [facility] [address] [place] [address], [facility] CBC W/DIFFon 10-13-2021 ABS IMM GRANS 0.0 10*3/uL Normal 0.0-0.2 [facility] Comment on above: Performed By: #### 5 0103 #### [facility] [address] [place] [address], [facility] ABS NEUTROPHILS 2.8 10*3/uL Normal 1.6-7.6 [facility] Comment on above: Performed By: #### 5 0103 #### [facility] [facility] [address] [place] [address], [facility] Basophils (Bld) [#/Vol] 0.0 10*3/uL Normal 0.0-0.2 [facility] Comment on above: Performed By: #### 5 0103 #### [facility] [address] [place] [address], [facility] Basophils/100 WBC (Bld) 0.5 % Normal 0.0-1.0 [facility] Comment on above: Performed By: #### 5 0103 #### [facility] [address] [place] [address], [facility] Eosinophils (Bld) [#/Vol] 0.3 10*3/uL Normal 0.0-0.5 [facility] Comment on above: Performed By: #### 5 0103 #### [facility] [address] [place] [address], [facility] Eosinophils/100 WBC (Bld) 7.4 % High 0.0-6.0 [facility] Comment on above: Performed By: #### 5 3 #### [facility] [address] [place] [address], [facility] Erythrocyte distribution width (RBC) [Ratio] 13.9 % Normal 11.5-15.0 [facility] Comment on above: Performed By: #### 3 #### [facility] [address] [place] [address], [facility] Hematocrit (Bld) [Volume fraction] 33.5 % Low 39.0-50.0 [facility] Comment on above: Performed By: #### 5 0103 #### [facility] [address] [facility] [place] [address], [facility] Hemoglobin (Bld) [Mass/Vol] 11.4 g/dL Low 13.0-17.0 [facility] Comment on above: Performed By: #### 5 3 #### [facility] [address] [place] [address], [facility] IMMATURE GRANS 0.2 % Normal 0.0-1.0 [facility] Comment on above: Performed By: #### 3 #### [facility] [address] [place] [address], [facility] Lymphocytes (Bld) [#/Vol] 0.9 10*3/uL Low 1.2-4.0 [facility] Comment on above: Performed By: #### 5 102 #### [facility] [address] Lymphocytes/100 WBC (Bld) 20.1 % Normal 20.0-45.0 [facility] Comment on above: Performed By: #### 5 3 #### [facility] [address] [place] [address], [facility] MCH (RBC) [Entitic mass] 33.1 pg High 27.0-33.0 [facility] Comment on above: Performed By: #### 5 3 #### [facility] [address] [place] [address], [facility] MCHC (RBC) [Mass/Vol] 34.0 g/dL Normal 32.0-35.0 [facility] Comment on above: Performed By: #### 5 3 #### [facility] [address] [place] [address], [facility] MCV (RBC) [Entitic vol] 97.4 fL Normal 82.0-98.0 [facility] Comment on above: Performed By: #### 5 0103 #### [facility] [address] [place] [address], [facility] Monocytes (Bld) [#/Vol] 0.4 10*3/uL Normal 0.1-1.0 [facility] Comment on above: Performed By: #### 102 #### [facility] [address] [place] [address], [facility] MONOS 8.4 % Normal 5.0-12.0 [facility] Comment on above: Performed By: #### 102 #### [facility] [address] [facility] [place] [place] [address], [facility] Neutrophils/100 WBC (Bld) 63.4 % Normal 40.0-72.0 [facility] Comment on above: Performed By: #### 102 #### [facility] [address] [facility] [place] [place] [address], [facility] Nucleated RBC/100 WBC (Bld) [Ratio] 0 % Normal 0-0 [facility] Comment on above: Performed By: #### 102 #### [facility] [address] [place] [address], [facility] PLAT CNT 116 10*3/uL Low 150-400 [facility] Comment on above: Performed By: #### 102 #### [facility] [address] [place] [address], [facility] RBC (Bld) [#/Vol] 3.44 10*6/uL Low 4.20-5.70 [facility] Comment on above: Performed By: #### 102 #### [facility] [address] [facility] [place] [address], [facility] WBC (Bld) [#/Vol] 4.43 10*3/uL Normal 4.00-10.60 [facility] Comment on above: Performed By: #### 102 #### [facility] [address] [place] [address], [facility] Cardiovascular Lab Reporton 10-13-2021 Cardiovascular Lab Report [facility] Patient Name: Ry Lerner [facility] MR #: [id number] Physician: Royal Gandara MD Department of Service Date: 10/13/2021 Medicine Birthdate: 1935 Division of Room #: [facility] Cardiology Adult Cardiovascular Services [facility] [address] [place], [place] [address] Cardiovascular Laboratory Report PACEMAKER IMPLANT PROCEDURE NOTE DATE OF PROCEDURE: 10/13/2021 PERFORMING PHYSICIAN: Dr. Royal Gandara CONSENT: Patient LOCATION: EP Lab PROCEDURE PERFORMED: 1. Implantation of pacemaker ([employer]) 2. Ultrasound guided venous access [...] previously recommended a pacemaker, however, presented to [facility] with a ventricular rate in the 30s. He was subsequently transferred over to [facility] ED for a pacemaker [...] using modified seldinger technique using a 5 Sudanese micro-puncture needle on one occasion and 0.35 wire was placed. Local infiltration of 1% Lidocaine was performed, and an incision was created in the left upper chest. Dissection was then performed using cautery down to the fascial plane above the muscle. A small pocket was created for the device. 6 Sudanese Safesheaths were placed over the wire. An active fixation [employer] pacing lead was then delivered through the 6Fsheath to the right ventricle. After confirmation of lead position on orthogonal views (HANSEN and PAKISTANI) to confirm septal position, the screw was [...] immediate procedural complications were noted. Device info: [employer] Accolade MRI EL Model# L331 Serial# [id number] RV lead: Model# [id number] [id number] (59cms) Serial# [id number] Sensin.4mV Threshold: 0.6V@0.4ms Impedance: 598 Ohms POST [...] A Royal Gandara MD Date Dict: 10/13/2021/10:04 Alcides/Royal Gandara MD Date Trans: 10/13/2021 10:46 Alcides/oscar [id number] cc: Jason Silva M.D. [address] [place] [id number] Normal [facility] FRESH FROZEN PLASMA 1 UNITon 10-13-2021 PRODUCT CODE 1 E2701 Normal [facility] Comment on above: Order Comment: INR: 2.88 ,PTT: 36.7 at the time of order ;Indication: Other pacemaker placement Performed By: #### 8 7001 #### [facility] [address] PRODUCT STATUS 1 RE Normal [facility] Comment on above: Order Comment: INR: 2.88 ,PTT: 36.7 at the time of order ;Indication: Other pacemaker placement Result Comment: Resu lt changed by IF on 10/19/2021 01:00. The previous value was XM. Performed By: #### 8 7001 #### [facility] [address] [place] [address], [facility] UNIT ABO 1 O Normal [facility] Comment on above: Order Comment: INR: 2.88 ,PTT: 36.7 at the time of order ;Indication: Other pacemaker placement Performed By: #### 8 7001 #### [facility] [address] [place] [address], [facility] UNIT ID 1 [id number] Normal [facility] Comment on above: Order Comment: INR: 2.88 ,PTT: 36.7 at the time of order ;Indication: Other pacemaker placement Performed By: #### 8 7001 #### [facility] [address] [place] [address], [place] UNIT RH 1 Negative Normal [facility] Comment on above: Order Comment: INR: 2.88 ,PTT: 36.7 at the time of order ;Indication: Other pacemaker placement Performed By: #### 8 7001 #### [facility] [address] [place] [address], [place] LIVER BATTERYon 10-13-2021 Albumin [Mass/Vol] 4.0 g/dL Normal 3.5-5.7 [facility] Comment on above: Performed By: #### 0 0071, 72325, 55433, 95713 #### [facility] [address] [place] [address], [place] ALKALINE PHOSPH 137 IU/L High 34-104 [facility] Comment on above: Performed By: #### 0 0071, 13852, 97676, 05526 #### [facility] [address] [place] [address], [place] ALT [Catalytic activity/Vol] 29 U/L Normal 7-52 [facility] Comment on above: Performed By: #### 0 0071, 46424, 18557, 13040 #### [facility] [address] [place] [address], [place] AST [Catalytic activity/Vol] 22 U/L Normal 13-39 [facility] Comment on above: Performed By: #### 0 0071, 50538, 23588, 73462 #### [facility] [address] [place] [address], [place] Bilirubin [Mass/Vol] 0.7 mg/dL Normal 0.3-1.0 [facility] Comment on above: Performed By: #### 0 0071, 50094, 99883, 70598 #### [facility] [address] [place] [address], [place] Bilirubin.direct [Mass/Vol] 0.1 mg/dL Normal 0.0-0.2 [facility] Comment on above: Performed By: #### 0 0071, 75396, 54733, 48122 #### [facility] [address] [place] [address], [place] Protein [Mass/Vol] 6.3 g/dL Normal 6.0-8.3 The [facility] Comment on above: Performed By: #### 0 0071, 38506, 06087, 32805 #### [facility] [address] [place] [address], [facility] MAGNESIUM BLOODon 10-13-2021 Magnesium [Mass/Vol] 2.0 mg/dL Normal 1.9-2.7 [facility] Comment on above: Performed By: #### 0 0071, 93561, 41702, 70139 #### [facility] [address] [place] [address], [facility] POC SARS COV2 ANTIGEN NEGATI VEon 10-13-2021 POC SARS COV2 ANTIGEN NEG Negative Normal NEGATIVE [facility] Comment on above: Result Comment: Nega [...] antigen from SARS-CoV-2 in direct nasopharyngeal swab (HOSPITAL DIRECTOR) specimens from individuals who are suspected [...] Accreditation. Performed By: #### 3 2044 #### [facility] [address] [place], [place] [address] PORTABLE CHEST 1 VIEWon 09-26 PORTABLE CHEST 1 VIEW [facility] Department of Radiology [address] [place] [id number] Patient Name: RY LERNER : 1935 Sex: M Age: Race: White Pt. Location: [facility] Patient Status: E Ordered Date: [...] report. Electronically signed: Mark Aguilar. Transcribed by: [email or web address], User Resident: HUMBLE HERNANDEZ Electronically Signed by: MARK AGUILAR @ 10/13/2021 05:55 AM I personally read this/these film(s) with this resident Normal [facility] Comment on above: Order Comment: evalu ate for Infiltrates PROTHROMBIN TIMEon INR Coag (PPP) [Relative time] 2.88 {INR} High 0.91-1.16 [facility] Comment on above: Result Comment: ACCC [...] CHEST 1995;108:231S-246S. Performed By: #### 5 6101, 17416 #### [facility] [address] [place] [address], [facility] PT Coag (PPP) [Time] 30.0 s High 12.3-14.8 [facility] Comment on above: Result Comment: ALL RESULTS MUST BE INTERPRETED WITH RESPECT TO BLOOD DRAWING ARTIFACT OR DILUTION ERROR OF ANTICOAGULANT AT THE TIME OF SAMPLING. Performed By: #### 5 6101, 60520 #### [facility] [address] [place] [address], [facility] TROPONIN-Ion 10-13-2021 Troponin I.cardiac [Mass/Vol] 0.05 ng/mL High 0.00-0.04 [facility] Comment on above: Result Comment: REFE RENCE RANGES: 0.00 - 0.04 ng/ml NORMAL 0.05 - 0.50 ng/ml INDETERMINATE > 0.50 ng/ml CONSISTENT WITH AN M.I. Performed By: #### 0 0071, 84160, 34954, 20700 #### [facility] [address] [place] [address], [facility] TYPE AND SCREENon 10-13-2021 ABO INTERPRETATION O Normal [facility] Comment on above: Performed By: #### 5 0103 #### [facility] [address] [place] [address], [facility] RH INTERPRETATION Positive Normal [facility] Comment on above: Performed By: #### 5 0103 #### [facility] [address] [place] [address], [facility] Vital Signs Date Time Vital Sign Value Performing Clinician Facility 10-24-2023 15:49-0400 Heart rate 65 /min Christelle Timmis [facility] 10-24-2023 15:49-0400 SaO2% (BldA) [Mass fraction] 99 % Christelle Timmis [facility] 10-24-2023 15:48-0400 Diastolic blood pressure 73 mm[Hg] Christelle Timmis [facility] 10-24-2023 15:48-0400 Mean blood pressure 98 mm[Hg] Christelle Timmis [facility] 10-24-2023 15:48-0400 Systolic blood pressure 148 mm[Hg] Christelle Timmis [facility] 10-24-2023 15:48-0400 Respiratory rate 16 /min Christelle Timmis [facility] 10-24-2023 14:52-0400 Heart rate 61 /min Christelle Timmis [facility] 10-24-2023 14:52-0400 SaO2% (BldA) [Mass fraction] 100 % Christelle Timmis [facility] 10-24-2023 14:51-0400 Diastolic blood pressure 72 mm[Hg] Christelle Timmis [facility] 10-24-2023 14:51-0400 Mean blood pressure 101 mm[Hg] Christelle Timmis [facility] 10-24-2023 14:51-0400 Systolic blood pressure 160 mm[Hg] Christelle Timmis [facility] 10-24-2023 14:42-0400 Body temperature 97.7 [degF] Christelle Timmis [facility] 10-24-2023 14:42-0400 Diastolic blood pressure 60 mm[Hg] Christelle Timmis [facility] 10-24-2023 14:42-0400 Heart rate 60 /min Christelle Timmis [facility] 10-24-2023 14:42-0400 Mean blood pressure 83 mm[Hg] Christelle Timmis [facility] 10-24-2023 14:42-0400 Respiratory rate 15 /min Christelle Timmis [facility] 10-24-2023 14:42-0400 SaO2% (BldA) [Mass fraction] 99 % Christelle Timmis [facility] 10-24-2023 14:42-0400 Systolic blood pressure 129 mm[Hg] Christelle Timmis [facility] 10-24-2023 14:30-0400 Mean blood pressure 77 mm[Hg] Christelle Timmis [facility] 10-24-2023 14:30-0400 Respiratory rate 12 /min Christelle Timmis [facility] 10-24-2023 14:25-0400 Mean blood pressure 84 mm[Hg] Christelle Timmis [facility] 10-24-2023 14:25-0400 Respiratory rate 16 /min Christelle Timmis [facility] 10-24-2023 14:20-0400 FIO2 35 1 Christelle Timmis [facility] 10-24-2023 14:17-0400 Body temperature 97.7 [degF] Christelle Timmis [facility] 10-24-2023 14:15-0400 FIO2 100 1 Christelle Timmis [facility] 10-24-2023 14:10-0400 FIO2 100 1 Christelle Timmis [facility] 10-24-2023 14:10-0400 Respiratory rate 6 /min Christelle Timmis [facility] 10-24-2023 14:05-0400 Respiratory rate 10 /min Christelle Timmis [facility] 10-24-2023 12:46-0400 Blood Pressure Location Christelle Timmis [facility] 10-24-2023 12:46-0400 Mean blood pressure 105 mm[Hg] Christelle Timmis [facility] 10-24-2023 12:43-0400 Body temperature 97.88 [degF] Christelle Timmis [facility] 10-24-2023 12:41-0400 Blood Pressure Location Christelle Timmis [facility] 10-23-2023 13:49-0400 Body temperature 98.06 [degF] Christelle Timmis [facility] 10-23-2023 13:49-0400 Diastolic blood pressure 57 mm[Hg] Christelle Timmis [facility] 10-23-2023 13:49-0400 Heart rate 60 /min Christelle Timmis [facility] 10-23-2023 13:49-0400 Mean blood pressure 79 mm[Hg] Christelle Timmis [facility] 10-23-2023 13:49-0400 Respiratory rate 17 /min Christelle Timmis [facility] 10-23-2023 13:49-0400 SaO2% (BldA) [Mass fraction] 98 % Christelle Timmis [facility] 10-23-2023 13:49-0400 Systolic blood pressure 122 mm[Hg] Christelle Timmis [facility] 10-23-2023 13:47-0400 Diastolic blood pressure 62 mm[Hg] Christelle Timmis [facility] 10-23-2023 13:47-0400 Systolic blood pressure 107 mm[Hg] Christelle Timmis [facility] 09-30-2023 14:26-0500 Blood Pressure Location Mohamad Mouchli [facility] 09-30-2023 14:26-0500 Body temperature 95.72 [degF] Mohamad Mouchli [facility] 09-30-2023 14:26-0500 Diastolic blood pressure 57 mm[Hg] Mohamad Mouchli [facility] 09-30-2023 14:26-0500 Heart rate 60 /min Mary Jane Garza [facility] 09-30-2023 14:26-0500 Respiratory rate 16 /min Mary Jane Walshli [facility] 09-30-2023 14:26-0500 Systolic blood pressure 114 mm[Hg] Mary Jane Garza [facility] 06-02-2022 14:50-0400 Body height 182.88 cm Sonja Aden Other [employer] [facility] [employer] Other 06-02-2022 14:50-0400 Body mass index (BMI) [Ratio] 29.73 kg/m2 Sonja Aden Other [employer] Other 06-02-2022 14:50-0400 Body temperature 99.6 [degF] Sonja Aden Other [employer] Other 06-02-2022 14:50-0400 Body weight 99.43 kg Sonja Aden Other [employer] Other 06-02-2022 14:50-0400 Diastolic blood pressure 54 mm[Hg] Sonja Aden Other [employer] Other 06-02-2022 14:50-0400 Respiratory rate 18 /min Sonja Aden Other [employer] Other 06-02-2022 14:50-0400 SaO2% (BldA) [Mass fraction] 95 % Sonja Aden Other [employer] Other 06-02-2022 14:50-0400 Systolic blood pressure 118 mm[Hg] Sonja Aden Other [facility] [employer] Other Encounters Encounter Date Encounter Type Care Provider Facility Start: 02-12-2024 End: 02-12-2024 ambulatory [facility] Start: 01-22-2024 Evaluation and management of inpatient GAIL WATKINS [facility] Start: 01-22-2024 Evaluation and management of inpatient [facility] Start: 01-21-2024 ambulatory [facility] Start: 01-21-2024 End: 01-22-2024 Evaluation and management of inpatient [facility] Start: 01-14-2024 End: 01-14-2024 ambulatory [facility] Start: 01-03-2024 End: 01-03-2024 ambulatory [facility] Start: 12-04-2023 End: 12-04-2023 ambulatory [facility] Start: 12-03-2023 End: 12-03-2023 ambulatory Sheng L Brissa Facility:[facility] [place] [facility] Start: 10-30-2023 End: 10-30-2023 ambulatory Sheng L Brissa Facility:[facility] [place] [facility] Start: 10-30-2023 End: 10-30-2023 ambulatory [facility] Start: 10-24-2023 End: 10-24-2023 Admission to same day surgery center Christelle Hurst [facility] Start: 10-24-2023 End: 10-24-2023 ambulatory Christelle Sadlermis Facility:[facility] Start: 10-23-2023 End: 10-23-2023 ambulatory Christelle H Timmis Facility:[facility] Start: 10-23-2023 End: 10-23-2023 Patient encounter procedure Christelle Hurst [facility] Start: 10-23-2023 End: 10-23-2023 ambulatory CHRISTELLE HURST Not Available Start: 10-02-2023 End: 10-02-2023 ambulatory Sheng L Brissa Facility[facility] [place] [facility] Start: 09-30-2023 End: 09-30-2023 ambulatory Mary Jane Garza Facility:[facility] Start: 09-30-2023 End: 09-30-2023 Patient encounter procedure Mary Jane Garza [facility] Start: 09-09-2023 End: 09-10-2023 ambulatory Petros Lee MD Facility: [facility] Start: 09-04-2023 ambulatory Sheng L Brissa Facility: [facility] [place] Start: 09-03-2023 End: 09-03-2023 ambulatory Sheng L Brissa Facility:[facility] [place] [facility] Start: 08-29-2023 End: 08-29-2023 ambulatory ADDIE A FELTER Not Available Start: 08-29-2023 Bamboo flowsheet Addie A Fel [employer] STATION OPERATOR[employer]SUPER[employer] Work Phone: [facility] Start: 08-29-2023 Bamboo flowsheet Addie A Fel ter STATION OPERATOR-SUPERVISOR [employer] Work Phone: [facility] Start: 08-29-2023 End: 08-29-2023 Office outpatient new 30 minutes Addie A Felter STATION OPERATOR-SUPER[employer]OR [employer] Work Phone: [facility] Comment on above: Other atopic dermati tis (Primary Dx); Seborrheic keratosis Start: 08-28-2023 End: 08-28-2023 ambulatory John Nieves Facility:[facility] [place] [facility] Start: 07-03-2023 End: 07-03-2023 ambulatory Sheng L Brissa Facility:[facility] [place] [facility] Start: 07-02-2023 End: 07-02-2023 ambulatory [facility] Start: 05-15-2023 End: 05-15-2023 ambulatory [facility] Start: 01-22-2023 End: 01-22-2023 Lab Drop off Sheng L Brissa [facility] Start: 12-31-2022 End: 12-31-2022 ambulatory [facility] Facility:[facility] Start: 12-25-2022 End: 12-26-[address] JASON SILVA . Facility:[facility] Start: 12-12-2022 End: 12-14-2022 Evaluation and management of inpatient DR JASON SILVA . Facility:[facility] Start: 12-11-2022 End: 12-11-2022 Lab Drop off Sheng L Brissa [facility] Start: 12-10-2022 End: 12-10-2022 ambulatory [facility] Facility:[facility] Start: 11-26-2022 End: 12-26-2022 ambulatory SHAIKH Joe JUNIOR Facility:[facility] Start: 11-06-2022 End: 11-07-[address] JASON SILVA . Facility:[facility] Start: 10-29-2022 End: 11-23-2022 ambulatory SHAIKH Joe JUNIOR Facility:[facility] Start: 09-26-2022 End: 10-26-2022 ambulatory SHAIKH Joe JUNIOR Facility:[facility] Start: 08-29-2022 End: 09-26-2022 ambulatory SHAIKH Joe JUNIOR Facility:[facility] Start: 08-22-2022 End: 08-23-[address] JASON SILVA . Facility:[facility] Start: 08-16-2022 End: 08-17-[address] JASON SILVA . Facility:[facility] Start: 07-30-2022 End: 08-29-2022 ambulatory HAYWARD Joe JUNIOR Facility:[facility] Start: 07-24-2022 End: 07-25-2022 ambulatory ROYAL GANDARA Facility:H1 Start: 06-28-2022 End: 07-29-2022 ambulatory HAYWARD H FAWWAD Facility:[facility]1 Start: 06-02-2022 End: 06-02-2022 ambulatory Sonja Aden Other [employer] Other Start: 06-02-2022 Office outpatient ne w 30 minutes Sonja Gilbertler [facility] Start: 05-29-2022 End: 06-27-2022 ambulatory HAYWARD H FAWWAD Facility:[facility]1 Start: 04-29-2022 End: 05-28-2022 ambulatory HAYWARD H FAWWAD Facility:[facility]1 Start: 03-29-2022 End: 04-28-2022 ambulatory HAYWARD H FAWWAD Facility:[facility]1 Start: 03-20-2022 End: 03-20-2022 ambulatory UNKNOWN PROVIDER Facility:[facility] Start: 02-26-2022 End: 03-28-2022 ambulatory HAYWARD H FAWWAD Facility:[facility]1 Start: 02-15-2022 End: 02-16-2022 ambulatory KELLY RAMOSRBEL Facility:[facility]1 Start: 01-26-2022 End: 02-23-2022 ambulatory HAYWARD H FAWWAD Facility:H1 Start: 10-13-2021 End: 10-13-2021 ambulatory UNKNOWN PROVIDER Facility:[facility] Start: 10-13-2021 End: 10-13-2021 Emergency department patient visit PHYSICIAN UNKNOWN Facility:[facility] Procedures Date Procedure Procedure [...] above: Performed By: #### B MP #### [facility] [address] [address] [address] Rashmi Nolan Start: 10-13-2021 Antibody screen PHYSICI AN UNKNOWN Comment on above: Performed By: #### 5 [id number] #### [facility] [address] [facility] [address] Start: 09-26-2021 Cardiac pacemaker, d evice (physical object) Sheng Lagos Start: 02-26-2011 Colonoscopy [facility] Start: 07-29-1995 TURP syndrome (disorder) [facility] Start: 07-29-1993 Herniated structure (morphologic abnormality) TransLattice Tonsillectomy and adenoidectomy [facility] Plan of Treatment Date Care Activity Detail Author Start: 08-29-2023 End: 08-29-2023 Patient encounter procedure 08/29/2023 1:00 PM EST Office Visit [facility] [address] [place] [id number] Addie Huston, PENG-SUPERVISOR [employer] [address] [place] [address] Arrived [facility] Comment on above: Arrived Immunizations Immunization Date Immunization Notes Care Provider Fa cility 08-02-2023 zoster vaccine recombinant Mary Jane Garza [facility] 07-03-2023 influenza virus vaccine, unspecified formulation Jimmied Greg [facility] 07-03-2023 pneumococcal 20-aurelio nt conjugate vaccine Jimmied Mosunday [facility] 05-02-2022 influenza virus vaccine, unspecified formulation Sheng Brissa [facility] 05-02-2022 Seasonal trivalent influenza vaccine, adjuvanted, preservative free Addie Huston STATION OPERATOR-SUPERVISOR [employer] Work Phone: [facility] 04-28-2021 SARS-CoV-2 (COVID-19 ) mRNA-1273 vaccine Mary Jane Walshli [facility] 09-17-2020 SARS-CoV-2 (COVID-19 ) mRNA BNT-162b2 vax Sheng Brissa [facility] Comment on above: Result Comment: 2022: [id number] 08-27-2020 SARS-CoV-2 (COVID-19 ) mRNA BNT-162b2 vax Sheng Brissa [facility] Comment on above: Result Comment: 2022: [id number] 06-13-2020 influenza virus vaccine, unspecified formulation Sheng Brissa [facility] 06-01-2019 influenza virus vaccine, unspecified formulation Sheng Brissa [facility] 04-14-2018 influenza virus vaccine, unspecified formulation Sheng Brissa [facility] 04-22-2017 influenza virus vaccine, unspecified formulation Sheng Brissa [facility] 05-01-2016 influenza virus vaccine, unspecified formulation Sheng Brissa [facility] 06-02-2015 influenza virus vaccine, unspecified formulation Sheng Brissa [facility] 05-31-2014 influenza virus vaccine, unspecified formulation Sheng Brissa [facility] 06-02-2013 influenza virus vaccine, unspecified formulation Sheng Lagos [facility] 05-29-2005 influenza, whole Sheng Lagos [facility] Payers Date Payer Category Payer Unknown FAPOO 1999 Medicare [id number] 1959 Medicare [id number] 1934 Unknown [id number] 2.16.8 40.1.996702.3.579.2.647 1934 Unknown [id number] 2.16. 840.1.238600.3.579.2.732 1934 Unknown [id number] 2.16. 840.1.048367.3.579.2.732 1934 Unknown [id number] 2.16.8 40.1.573346.3.579.2.718 1934 Unknown [id number] 2.16.8 40.1.755465.3.579.2.718 1934 Unknown [id number] 2.16.84 0.1.971939.3.579.2.593 1934 Unknown [id number] 2.16.84 0.1.825649.3.579.2.593 1934 Unknown [id number] 2.16.84 0.1.225908.3.579.2.593 1934 Unknown [id number] 2.16.84 0.1.320632.3.579.2.593 1934 Unknown [id number] 2.16.84 0.1.058958.3.579.2.593 1934 Unknown [id number] 2.16.84 0.1.938606.3.579.2.593 1934 Unknown [id number] 2.16.84 0.1.567689.3.579.2.593 - Unknown [id number] 2.16.84 0.1.728922.3.579.2.593 1934 Unknown [id number] 2.16.84 0.1.746660.3.579.2.593 1934 Unknown [id number] 2.16.84 0.1.414322.3.579.2.593 1934 Unknown [id number] 2.16.84 0.1.593212.3.579.2.593 1934 Unknown [id number] 2.16.84 0.1.002517.3.579.2.593 1934 Unknown [id number] 2.16.84 0.1.685700.3.579.2.593 1934 Unknown [id number] 2.16.84 0.1.423284.3.579.2.593 1934 Unknown [id number] 2.16.84 0.1.805866.3.579.2.593 1934 Unknown [id number] 2.16.84 0.1.652624.3.579.2.593 1934 Unknown [id number] 2.16.84 0.1.743536.3.579.2.593 1934 Unknown [id number] 2.16.84 0.1.572760.3.579.2.593 1934 Unknown [id number] 2.16. 840.1.589627.3.579.2.196 1934 Unknown [id number] 2.16.84 0.1.109016.3.579.2.1259 1934 Unknown [id number] 2.16.84 0.1.734371.3.579.2.1259 1934 Unknown [id number] 2.16.8 40.1.012762.3.579.2.727 1934 Unknown [id number] 2.16.8 40.1.978455.3.579.2.727 1934 Unknown [id number] 2.16.8 40.1.746178.3.579.2.727 1934 Unknown [id number] 2.16.8 40.1.245332.3.579.2.727 1934 Unknown [id number] 2.16.8 40.1.008340.3.579.2.727 1934 Unknown [id number] 2.16.8 40.1.669983.3.579.2.727 1934 Unknown [id number] 2.16.8 40.1.500828.3.579.2.727 1934 Unknown [id number] 2.16.8 40.1.779294.3.579.2.727 1934 Unknown [id number] 2.16.8 40.1.059106.3.579.2.727 1934 Unknown [id number] 2.16.8 40.1.855579.3.579.2.727 Social History Date Type Detail Facility Unknown if ever smoked [employer] Other Start: 02-05-2023 End: 08-29-2023 [facility] Start: 12-11-2022 End: 12-13-2022 Tobacco smoking status Never smoked tobacco (finding) [facility] Tobacco smoking status Never [facility] Comment on above: Quit in 2002 Start: 01-22-2023 End: 10-02-2023 Tobacco smoking status Ex-smoker (finding) [facility] Comment on above: Quit in 2002 Start: 12-13-2022 Tobacco use and exposure Smokeless tobacco non-user [facility] Start: 02-05-2023 End: 08-29-2023 Alcohol intake Current drinker of alcohol (finding) [facility] Start: 02-05-2023 End: 08-29-2023 History of Social function [facility] Start: 1935 Sex Assigned At Not on file N [facility] Healthcare Functional Status Date Assessment Result Facility 10-23-2023 Functional Status No Sonny Walker [facility] 09-30-2023 Functional Status N/A [facility]pike[facility] Clinical Notes 10-13-2021 to 02-12-2024 HeatherNatgilda Huston, PENG-SUPERVISOR [employer] - 08/29/2023 1:00 PM EST Note Date & Type Note Facility 02-12-2024 Note PR Cardiology - [facility] Reason for visit: Afib. S/p PPM, s/p LAAO WATCHMAN device 01/21/24 02/12/24 Since I last saw him he has undergone LAAO implantation with a WATCHMAN device. He has had some dizziness. He had a fall while gardening while bending over. No significant injuries. BP at home has been running 100-120/60s. Denies c/o CP, dyspnea, orthopnea, PND, LE edema, palpitations, syncope. 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 Device check performed on 06/12/2022 shows thresholds to be good. he is in persistent A. Fib and underwent a single-chamber pacemaker. with [employer] on 10/13/2021 and paced 65% [...] stress test about 12 years ago in [place], and was in hospital with noted a fib currently on coumadin anticoagulation. Echocardiogram performed on 11/30/2020 at [facility] shows an ejection fraction of 55% [...] Determinants of Health Tobacco Use: Medium Risk (02/12/2024) Patient History Smoking Tobacco Use: Former Smokeless Tobacco Use: Never Passive Exposure: Past Alcohol Use: Not on file [employer] (more content not included)... [facility] 01-22-2024 Note 01/22/24 0923 Admission Assessment Questions Verify insurance with patient Yes Do you understand medical disease or what brought you into the hospital? Yes Who is your current PCP? Jhon Nieves Can I schedule a follow up appointment for you at the time of discharge? Yes Do you understand why you are taking your current medications? Yes Are you taking your medications as prescribed? Yes Did patient provide teach back? No Pharmacy Bedside Delivery Status Interested Does the patient have a case repairer assigned to them through their insurance? No [...] to send link and activate MyChart? No [facility] 01-21-2024 Note Patient: Ry soria Procedure Information Date/Time: 01/21/24 1100 Procedure: Left atrial appendage closure (transvenous) Location: [facility] RADIO REPAIRMAN 3 / [facility] (Cath) Providers: Kelly Morales MD Clinical information reviewed: Allergies Meds Physical Exam Airway Mallampati: III TM distance: >3 FB Neck ROM: full Cardiovascular Rhythm: regular Rate: normal Dental Pulmonary Abdominal Anesthesia Plan ASA 3 other (Conscious sedation.) Anesthetic plan and risks discussed with patient. Use of blood products discussed with patient who consented to blood products. Additional Equipment Requests [facility] 12-04-2023 Note PR Cardiology - [facility] Subjective Ry Lerner is a 88 [...] 75 QRS DURATIO (more content not included)... [facility] 10-30-2023 Note PR Cardiology - [facility] Reason for visit: Afib. 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 Device check performed on 06/12/2022 shows thresholds to be good. he is in persistent A. Fib and underwent a single-chamber pacemaker. with [employer] on 10/13/2021 and paced 65% [...] stress test about 12 years ago in [place], and was inpt hospital with noted a fib currently on coumadin anticoagulation. Echocardiogram performed on 11/30/2020 at [facility] shows an ejection fraction of 55% [...] on file Intimate Partner Violence: Unknown (09/19/2023) PR Safety & Environment Fear of Current or Ex-Partner: Not on file Emotionally Abused: Not on file Physical (more content not included)... [facility] 10-24-2023 Hospital Discharge instructions Patient Education 10/24/2023 14:41:31 [facility](CUSTOM) [place], [place] DISCHARGE INSTRUCTIONS: NASAL SURGERY DO NOT [...] the office with any questions or problems: [phone] ([facility]) The above information has been explained, I have had the opportunity to have my questions answered, and I have received a copy. Responsible Libertarian SignatureSurgeon s Signature Nurse s Signature Reviewed: 09/0510/24/2023 14:37:39 Post Op Patient Instructions - FT (CUSTOM) Follow Up Care 10/23/2023 10:02:33 With:Christelle Hurst Address:Unknown When: Unknown Comments:As needed [facility] 10-23-2023 Note [id number] [facility] 09-30-2023 Evaluation + Plan note Future Scheduled TestsAlkaline Phosphatase Isoenzymes 09/30/23. pylori Stool Ag 09/30/23Ferritin 09/30/23Iron Level 09/30/23 [facility] 08-29-2023 History of Present illness Narrative Rash [...] any new/changing lesions documented in this encounter [facility] 05-15-2023 Note Patient here for 3 m [...] All other systems reviewed and are negative. 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 Device check performed on 06/12/2022 shows thresholds to be good. he is in persistent A. Fib and underwent a single-chamber pacemaker. with [employer] on 10/13/2021 and paced 65% [...] stress test about 12 years ago in [place], and was in hospital with noted a fib currently on coumadin anticoagulation. Echocardiogram performed on 11/30/2020 at [facility] shows an ejection fraction of 55% [...] mg DR lindsay (more content not included)... [facility] 02-17-2023 Note Stable -ct medications [facility] 02-17-2023 Note [id number]: at [facility] 3 for age and htn -restart warfarin, will follow coumadin clinic here at [facility] -is to report any concerns for bleeding -follow up in 2 months to discuss how he is doing -patient prefers to not consider watchmen if he does not have to [facility] 01-01-2023 Note [id number]23 Note [id number]#1.00[facility] 12-31-2022 Note [facility] SURGERY Clinical Discharge Summary PERSON INFORMATION Name RY LERNER Age 87 Years 1935 Sex MALE Language Palauan PCP Ezequiel CHAMBERS, John Rodríguez Marital Status [facility] Acct# Arrival 12/31/2022 08:09:06 Visit Reason SURGERY - RIGHT CARPAL TUNNEL RELEASE Acuity LOS 039 21:33 Address: [address] [place] [id number] Comment: PROVIDER INFORMATION VITALS INFORMATION Vital Sign [...] 1 cap(s) Oral every day. Lindsey's wort ([place]'s wort oral tablet) 1 tab(s) Oral 2 [...] release capsule) 1 cap(s) Oral every day. [place]'s wort ([place]'s wort oral tablet) 1 tab(s) Oral 2 [...] up: With: Address: When: MARJ PEREZ [address] [place] [address], [address] [place] [address] Business (1) 01/09/2023 11:00 AM DIAGNOSIS Carpal tunnel syndrome, right Comment: PHYS DOC NOTES [facility] 12-31-2022 Note Procedure: Decompres mary of [...] on: 12/31/2022 09:43 EDT] Ward Martinez DO [facility] 12-12-2022 Note [id number] [facility] 12-10-2022 Note procedure: Decompres mary of [...] on: 12/10/2022 15:46 EDT] Ward Martinez DO [facility] 12-10-2022 Note [facility] SURGERY Clinical Discharge Summary PERSON INFORMATION Name RY LERNER Age 87 Years 1935 Sex MALE Language Palauan PCP Ezequiel CHAMBERS, John Rodríguez Marital Status [facility] Acct# Arrival 12/10/2022 13:13:28 Visit Reason SURGERY - LEFT CARPAL TUNNEL RELEASE Acuity LOS 019 02:57 Address: [address] [place] [address] Comment: PROVIDER INFORMATION VITALS INFORMATION Vital Sign [...] Restrictions: DISCHARGE INFORMATION Discharge Disposition: Discharge Location: [facility] REASON INCOMPLETE INFORMATION PATIENT EDUCATION INFORMATION Instructions: Juan- Post Op Carpal Tunnel (CUSTOM) Follow up: With: Address: When: Ward Martinez [address] [place] [address], [address] [place] [address] Business (1) 12/18/2022 1:30 PM Type Location Start [facility] ([facility] Main OR 12/31/2022 7:30 AM 12/31/2022 8:00 AM Confirmed DIAGNOSIS Carpal tunnel syndrome of left wrist Comment: PHYS DOC NOTES [facility] 06-02-2022 Evaluation note Encounter Date Diagnosis [...] treatment plan. Patient left in stable condition [employer] [facility] [employer] Other [id number] History general Narrative - Reported* Type Description Date Medical History HYPERTENSION Medical History STROKE Medical History HEAD INJURY Surgical History PACEMAKER 10/13/2021 Surgical History HERNIA X 2 Surgical History TONSILECTOMY Hospitalization History SEE ABOVE [employer] Other Evaluation + Plan note No data available for this section [facility] Future Appointments Appointment Date:08/27/2023 09:30:00 AM Scheduled Provider: Location:[facility] Appointment Type: Medicare Wellness Subsequent [facility] Future Appointments Appointment Date:10/02/2023 10:00:00 AM Scheduled Provider:Sheng Simms Location:[facility] Appointment Type: Open Future Scheduled Tests Laboratory* Alkaline Phosphatase Isoenzymes 3/4/24 * H. pylori Stool Ag 3/4/24 * Ferritin 3/4/24 * Iron Level 3/4/24 [facility] Evaluation + Plan note Future Appointments Appointment Date:10/24/2023 02:30:00 PM Scheduled Provider: Location:[facility] Appointment Type:Surgery FT Future Scheduled Tests Laboratory* Alkaline Phosphatase Isoenzymes 3/4/24 * H. pylori Stool Ag 3/4/24 * Ferritin 3/4/24 * Iron Level 3/4/24 [facility] Diagnosis Other atopic dermatitis- Primary Seborrheic keratosis [facility] No data available for this section [facility] No data available for this section [facility] Summary Purpose Family History No [...] and content) DATE CREATED AUTHOR 01/26/2022 [facility] DATE CREATED AUTHOR AUTHOR'S ORGANIZ ATION 04/25/2022 [facility] DATE CREATED AUTHOR AUTHOR'S ORGANIZ ATION 01/06/2023 [facility] DATE CREATED AUTHOR AUTHOR'S ORGANIZ ATION 01/06/2023 [facility] DATE CREATED AUTHOR AUTHOR'S ORGANIZ ATION 09/15/2023 [facility] DATE CREATED AUTHOR AUTHOR'S ORGANIZ ATION 10/24/2023 [facility] EPIC DATE CREATED AUTHOR AUTHOR'S ORGANIZ ATION 01/24/2024 [facility] DATE CREATED AUTHOR AUTHOR'S ORGANIZ ATION 02/16/2024 [facility] REASON FOR VISIT (unrecogniz ed section and content) Reason Comments Rash Specialty Diagnoses / Procedures Referred By Contac t Referred To Contact Dermatology Diagnoses eczema / skin changes texture changes Sheng Lagos MD [address] [place] [id number] Rebecca Conley MD [address] [address] Referral ID Status Reason Start Date Expiration Date Visits Re quested Visits Authorized [id number] Closed 07/05/2023 01/01/2024 1 1 Patient Care team informatio n (unrecognized section and content) 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 [employer] [facility]. provides no warranty or guarantee of the accuracy or completeness of information in this document.
[2024-02-25 09:59] LABS: Hematocrit 27.1 % (42.0-54.0); Hemoglobin 8.6 g/dL (14.0-18.0); Mean Corpuscular HGB Conc 31.7 g/dL (29.9-35.2); Mean Corpuscular Hemoglobin 30.5 pg (25.9-34.0); Mean Corpuscular Volume 96.1 fL (80.0-94.0); Mean Platelet Volume 10.5 fL (9.5-13.5); Platelet Count 147 10^3/uL (150-450); Red Blood Count 2.82 10^6/uL (4.70-6.10); Red Cell Distribution Width 15.3 % (11.0-15.0); White Blood Count 3.3 10^3/uL (4.0-11.0)
[2024-02-25 10:00] LABS: Anion Gap 17.1; Calcium 10.1 mg/dL (8.5-10.1); Carbon Dioxide 19.7 mmol/L (21.0-32.0); Chloride 104 mmol/L (98-107); Estimated GFR (African America 36 (>=60); Estimated GFR (Non-African Ame 29 (>=60); Glucose 108 mg/dL (74-106); Potassium 4.8 mmol/L (3.5-5.1); Sodium 136 mmol/L (136-145)
[2024-02-25 12:02] LABS: Eosinophils Absolute Manual 0.26 10^3/uL (0.00-0.70); Hypochromasia 1+; Lymphocytes Absolute Manual 0.62 10^3/uL (1.20-3.80); Monocytes Absolute Manual 0.23 10^3/uL (0.30-0.80); Segmented Neut Absolute Manual 2.17 10^3/uL (1.4-6.5)
== END 2024-02-25 08:58 | disposition home or self-care (01) ==
LOC: LAB 08:59
PROVIDERS: PCP Nurse Practitioner; Visit Provider Nurse Practitioner Family
DX: I48.21 Permanent atrial fibrillation (principal); Z87.19 Personal history of other diseases of the digestive system
CPT/HCPCS: 36415; 80048; 85007; 85027

== ENCOUNTER 2024-04-21 07:24 | Outpatient (RCR) | payer MEDICARE, SELFPAY ==
[2024-03-31 16:32] LABS: Basophils Percent Auto 0.7 % (0.2-2.0); Eosinophils Absolute Auto 0.2 10^3/uL (0.0-0.7); Eosinophils Percent Auto 5.4 % (0.9-7.0); Hematocrit 28.6 % (42.0-54.0); Hemoglobin 9.2 g/dL (14.0-18.0); Immature Granulocytes Abs Auto 0.01 10^3/uL (0.00-0.03); Immature Granulocytes Pct Auto 0.2 % (0.0-0.5); Lymphocytes Absolute Auto 0.7 10^3/uL (1.2-3.8); Lymphocytes Percent Auto 16.5 % (20.5-60.0); Mean Corpuscular HGB Conc 32.2 g/dL (29.9-35.2); Mean Corpuscular Hemoglobin 31.4 pg (25.9-34.0); Mean Corpuscular Volume 97.6 fL (80.0-94.0); Mean Platelet Volume 10.3 fL (9.5-13.5); Monocytes Absolute Auto 0.4 10^3/uL (0.3-0.8); Neutrophils Absolute Auto 2.9 10^3/uL (1.4-6.5); Neutrophils Percent Auto 68.2 % (43.0-75.0); Platelet Count 138 10^3/uL (150-450); Red Blood Count 2.93 10^6/uL (4.70-6.10); Red Cell Distribution Width 14.8 % (11.0-15.0); Reticulocyte Pct Auto 1.38 % (0.60-3.10); White Blood Count 4.2 10^3/uL (4.0-11.0)
[2024-03-31 16:37] LABS: Erythrocyte Sedimentation Rate 56 mm/hr (<=20)
[2024-03-31 16:51] LABS: Alanine Aminotransferase 15 U/L (16-63); Albumin Globulin Ratio 1.1; Albumin Level 4.2 g/dL (3.4-5.0); Alkaline Phosphatase 248 U/L (46-116); Anion Gap 13.9; Aspartate Amino Transferase 10 U/L (15-37); BUN Creatinine Ratio 18.1; Bilirubin Total 0.4 mg/dL (0.2-1.0); C Reactive Protein <0.50 mg/dL (<=0.50); Calcium 10.2 mg/dL (8.5-10.1); Carbon Dioxide 24.2 mmol/L (21.0-32.0); Chloride 105 mmol/L (98-107); Estimated GFR (African America 39 (>=60); Estimated GFR (Non-African Ame 32 (>=60); Globulin 3.7 g/dL; Glucose 91 mg/dL (74-106); Lactate Dehydrogenase 147 U/L (85-227); Potassium 5.1 mmol/L (3.5-5.1); Sodium 138 mmol/L (136-145); Total Protein 7.9 g/dL (6.4-8.2)
[2024-03-31 17:48] LABS: Percent Iron Saturation 22.2 %
[2024-04-02 04:08] LABS: Vitamin B12 760 pg/mL (232-1245)
[2024-04-02 18:08] LABS: Albumin 4.1 g/dL (2.9-4.4); Alpha-1-Globulin 0.3 g/dL (0.0-0.4); Alpha-2-Globulin 0.7 g/dL (0.4-1.0); Free Lambda Lt Chains,S 11.7 mg/L (5.7-26.3); Gamma Globulin 0.5 g/dL (0.4-1.8); Immunoglobulin A, Qn, Serum 1179 mg/dL (61-437); Immunoglobulin G, Qn, Serum 463 mg/dL (603-1613); Immunoglobulin M, Qn, Serum 42 mg/dL (15-143); Kappa/Lambda Ratio,S 14.96 (0.26-1.65); Protein, Total 7.3 g/dL (6.0-8.5)
[2024-04-21 08:35] VITALS: BP 175/80; PULSE 81; TEMP 36.6; O2SAT 98
[2024-04-21] MEDS: FERUMOXYTOL 510 MG in 0.9 % SODIUM CHLORIDE 100 ML 234 MG IV (08:54)
--- NOTE | 2024-04-21 08:55 | PC.NURSE ---
0835: Pt. to [facility] amb. for iron infusion. Accompanied by daughter. Weight obtained. Seated in recliner. VSS. IV initiated, see documentation. Tolerated without c/o. Given juice. Declines food. 0855: IV Feraheme initiated at this time.
--- NOTE | 2024-04-21 09:27 | PC.NURSE ---
0925: IV Feraheme completed without s&s of adverse reaction. IV d/c'd, pressure to site. 0928: D/c'd amb. to Dr. Aguilar's office with daughter.
== END 2024-04-27 23:59 | disposition home or self-care (01) ==
LOC: HEMC 07:24
PROVIDERS: PCP Nurse Practitioner; Visit Provider Internal Medicine Hematology & Oncology
DX: D64.9 Anemia, unspecified (principal); R91.1 Solitary pulmonary nodule; D50.9 Iron deficiency anemia, unspecified; K90.9 Intestinal malabsorption, unspecified; Q61.00 Congenital renal cyst, unspecified; Z87.891 Personal history of nicotine dependence
CPT/HCPCS: 36415; 80053; 82607; 82728; 82746; 82784; 83521; 83540; 83550; 83615; 84155; 84165; 85025; 85045; 85652; 86140; 96365; G0463; Q0138

== ENCOUNTER 2024-04-28 07:18 | Outpatient (RCR) | payer MEDICARE, SELFPAY ==
[2024-04-28 08:30] VITALS: BP 159/77; PULSE 66; TEMP 36.6; O2SAT 98
[2024-04-28] MEDS: FERUMOXYTOL 510 MG in 0.9 % SODIUM CHLORIDE 100 ML 234 MG IV (08:39)
--- NOTE | 2024-04-28 08:47 | PC.NURSE ---
0830: Pt. to [facility] amb. for iron infusion. Seated in recliner. VSS. IV attempted x's 2 per this RN without success. IV initiated per. CORI Mendes. Pt. tolerated with minimal c/o. 0839: IV Feraheme initiated at this time. PT given cup of coffee.
--- NOTE | 2024-04-28 10:28 | PC.NURSE ---
0914: Iron infused without adverse reaction. IV d/c'd, pressure to site. Pt. d/c'd amb. to home.
== END 2024-05-28 23:59 | disposition home or self-care (01) ==
LOC: HEMC 07:18
PROVIDERS: PCP Nurse Practitioner; Visit Provider Internal Medicine Hematology & Oncology
DX: D50.9 Iron deficiency anemia, unspecified (principal); D64.9 Anemia, unspecified; R91.1 Solitary pulmonary nodule; Q61.00 Congenital renal cyst, unspecified; D47.2 Monoclonal gammopathy; C90.00 Multiple myeloma not having achieved remission; K90.9 Intestinal malabsorption, unspecified
CPT/HCPCS: 96365; Q0138

== ENCOUNTER 2024-05-04 14:28 | Outpatient (OUT) | payer MEDICARE, SELFPAY ==
--- NOTE | 2024-05-04 15:57 | PE_ITS ---
[address] [address] Patient Name: THIERRY LERNER MRN: [id number] date: 1935 Sex: M Assigned Patient Location: PETCT Current Patient Location: Accession/Order Number: [id number] Exam Date: 05/04/2024 14:58 Report Date: 05/07/2024 01:58 At the request of: ADRIANA MC Procedure: PET skull to mid thigh NUCLEAR MEDICINE PET/CT HISTORY: Multiple myeloma. COMPARISON: CT chest 11/02/2023. CT abdomen and pelvis 11/14/2023. METHOD: Routine 0.57 mCi of F-18 FDG was administered intravenously. Blood sugar level at the time of the injection: 115. At 54 minutes from injection, PET images were obtained from the skull base through the midthigh levels in the axial plane. Reformatted images were performed in the sagittal and coronal planes. A low-dose, noncontrast CT scan was performed for attenuation correction and anatomical localization. A low dose, noncontrast and nondiagnostic CT scan was performed for attenuation correction and anatomic localization. Mediastinal blood pool SUV max 2.5 using the patient's body weight as the normalization method. FINDINGS: HEAD AND NECK: There are no metabolically active lymph nodes in the neck. There is right maxillary mucus retention cyst versus polyp. CHEST: There are no metabolically active mediastinal, hilar, or axillary lymph nodes. The major airways are patent. There is no pericardial effusion. There is no evidence of abnormal metabolic uptake in the esophagus. There is no evidence of abnormal metabolic uptake in the lung parenchyma. There are no pleural effusions. There is no pneumothorax. ABDOMEN AND PELVIS: There is no evidence of abnormal metabolic activity in the liver or adrenal glands. There is no evidence of abnormal metabolic active lymph nodes in the abdomen or pelvis. There is no free fluid. There is physiologic uptake in the urinary system and bowel. There are scattered diverticuli. There are bilateral renal cysts. There are liver cysts. MUSCULOSKELETAL: There is diffuse sclerosis and a large portion of the left scapula with mild diffuse increased metabolic uptake. There is mild metabolic uptake associated with a sclerotic lesion in the manubrium. There is diffuse trabecular thickening with mild metabolic uptake in the left left iliac bone There is a healing right anterior fifth rib fracture. PET/PET skull to mid thigh IMPRESSION: No evidence of any metabolically active lytic lesions. Mild metabolic uptake associated with diffuse trabecular thickening in the left iliac bone which has the appearance of Paget's disease. Large area of sclerosis in the left scapula which may be related to Paget's disease or bone metastasis. Sclerotic changes in the manubrium, can't exclude bone metastasis. Recommend total-body bone scan. Diverticulosis. Renal and liver cysts. Electronically authenticated by: LUISA ELI Date: 05/07/2024 01:58
== END 2024-05-04 14:29 | disposition home or self-care (01) ==
LOC: PETCT 14:28
PROVIDERS: PCP Nurse Practitioner; Visit Provider Internal Medicine Hematology & Oncology
DX: D64.9 Anemia, unspecified (principal); R77.9 Abnormality of plasma protein, unspecified
CPT/HCPCS: 78815; A9552

== ENCOUNTER 2024-05-26 09:36 | Outpatient (OUT) | payer MEDICARE, SELFPAY ==
--- OUTSIDE RECORDS SUMMARY | 2024-05-26 09:43 | XMS_ITS | CCD ---
Author Organization [facility] Care Team Providers Care Waistband Setter Lockstitch Name Role Phone UNKNOWN, PHYSICIAN Referring Unavailable JASON SILVA Primary Care Unavailable HERCHER DEJON Attending Unavailable HERCHER, DEJON Admitting Unavailable PROVIDER, UNKNOWN Attending Unavailable PROVIDER, UNKNOWN Admitting Unavailable PROVIDER, UNKNOWN Attending Unavailable PROVIDER, UNKNOWN Admitting Unavailable Sonja Aden Unavailable Sheng Lagos Primary Care Physician Ward Martinez Admitting Unavail able Ward Martinez Attending Unavail able John Nieves Primary Care Unavailable JuanWard rabago Attending Unavail able John Nieves Primary Care Unavailable JuanWard leal Admitting Unavail able SILVA ., DR [...] MISC, DR DEUTSCH Consulting Unavailable MISC, DR DUETSCH Attending Unavailable MISC, DR DEUTSCH Admitting Unavailable [...] Unavailable FAWWAD, HAYWARD H Attending Unavailable FAWWAD, HAYWADR H Attending Unavailable FAWWAD, HAYWARD H Admitting [...] Brissa, Sheng Calix Referring Unavailable Brissa, Sheng Calix Attending Unavailable Brissa, Sheng Calix Attending Unavailable RossJohn Attending Unavailable Brissa, Sheng L Attending Unavailable Brissa, Sheng L Attending Unavailable Brissa, Sheng L Attending Unavailable Brissa, Sheng L Attending Unavailable Timmis, Christelle H Admitting Unavailable Timmis, Christelle H Attending Unavailable Timmis, Christelle H Referring Unavailable LUCAS, KORINA Attending Unavailable MOUKARBEL, KELLY Attending Unavailable LUCAS, KORINA Referring Unavailable MOUKARBEL, KELLY Referring Unavailable NICHOLROYAL Referring Unavailable LUCAS, KORINA Attending Unavailable LUCAS, KORINA Attending Unavailable BARAZICHARISSE Attending Unavailable MOUKARBEL, KELLY Referring Unavailable MOUKARBEL, KELLY Referring Unavailable WATKINSGAIL Devlin Referring Unavailable MOUKARBEL, KELLY Admitting Unavailable MOUKARBEL, KELLY Attending Unavailable LUCAS, KORINA Referring Unavailable NICHOLROYAL Referring Unavailable Allergies Allergy Classification Reported Allergen(s) Allergy Type Date of Onset Reaction(s) Facility (2 sources) No Known Medication Allergies; Translations: [No Known Medication Allergies] Propensity to adverse reactions to drug (disorder) [facility] Repository Medications Current Medications Medication Drug [...] Daily, # 90 tab(s), Refills(s) 1, Pharmacy: [facility], 179, cm, 09/03/23 10:34:00 EST, Height/Length [...] Daily, # 90 tab(s), Refills(s) 1, Pharmacy: [facility], 178, cm, 07/03/23 9:26:00 EST, Height/Length [...] Daily, # 180 cap(s), Refills(s) 3, Pharmacy: [facility], 178, cm, 01/22/23 14:05:00 EDT, Height/Length [...] 3 Chronic Other aftercare (1 source) 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; Translations: [OTH MANAGER STUDENT SERVICES CURRENT DRUG THERAPY] Onset: 3 Episodic Other aftercare (5 sources) Encounter for therapeutic drug level monitoring; Translations: [ENC THERAPEUTC DRUG LEVL MONITORING] Onset: 3 Episodic Other aftercare (1 source) skilled nursing (current) use of anticoagulants; Translations: [MANAGER STUDENT SERVICES CURRNT USE ANTICOAGULANTS] Onset: 3 Episodic Other and ill-defined cerebrovascular disease (1 source) Cerebrovascular disease, unspecified; Translations: [CEREBROVASCULAR DISEASE UNSPECIFIED] Onset: 3 Chronic Other connective tissue disease (4 sources) Cramp [...] NO RESID DEFICIT] Onset: 05-02-2022 Episodic Other lower respiratory disease (2 sources) Other forms of dyspnea; Translations: [Other forms of dyspnea] Onset: 12-04-2023 Episodic Other male genital disorders (4 sources) Disorder of prostate, unspecified; Translations: [DISORDER OF PROSTATE UNSPECIFIED] Onset: 08-22-2022 Episodic Unclassified (1 source) Contact with and (suspected) exposure to covid-19 Z20.822 Viral infection (1 source) COVID-19 Results Test Name Value Interpretation Reference Range Facility Office Visiton 03-17-2024 Follow-up visit [id number] Ry Lerner 1935 M Date Provider Department Center 03/17/2024 KORINA GODOY Family History Family history unknown: Yes Level of Service:43404 [place] OFFICE/OUTPATIENT ESTABLISHED LOW MDM 20 MIN Normal [facility] HPon 03-13-2024 H&P reviewed. The patient was examined and there are no changes to the H&P. Ry Lerner is a 88 y.o. 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 Normal [facility] NURSNOTEon 03-13-2024 NURSNOTE Swallow test passed. No issues Normal [facility] NURSNOTE RN educated pt on d/ c instructions. RN encouraged pt to voice any questions or concerns. Pt verbalizes no questions or concerns at this time. Normal [facility] Telephoneon 03-06-2024 Telephone [id number] Ry Lerner 1935 M Date Provider Department Center 03/06/2024 OTONIEL ALMEIDA [facility] Family History Family history unknown: Yes Normal [facility] 37on 02-12-2024 37 *Will cut amlodipine in half back to 5mg daily to see if this will help your dizziness. *Have lab work done in 2 weeks. *You are scheduled for your follow-up HELDER on 03/13/24 to check the WATCHMAN device. Normal [facility] HPon 02-12-2024 [facility] Cardiology - [facility] Reason for visit: Afib. 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 Device check performed on 06/12/2022 shows thresholds to be good. he is in persistent A. Fib and underwent a single-chamber pacemaker. with [employer] on 10/13/2021 and paced 65% Echocardiogram [...] Echocardiogram performed on 11/30/2020 at [facility] shows an ejection fraction of 55% [...] History: Diagnosis Date Atrial fibrillation (CMS/HCC) Hypertension Tachycardia-bradycard ia (CMS/HCC) PSH: Past Surgical History: Procedure Laterality Date HERNIA REPAIR x2 INSERT / REPLACE / REMOVE PACEMAKER 10/13/2021 SH: Social Determinants of Health Tobacco Use: Medium Risk (02/12/2024) Patient History Smoking Tobacco Use: Former Smokeless Tobacco Use: Never Passive Exposure: Past Alcohol Use: Not on file [employer] (more content not included)... Normal [facility] Office Visiton 02-12-2024 Follow-up visit [id number] Ry Lerner 1935 M Date Provider Department Center 02/12/2024 KORINA GODOY [facility] Family History Family history unknown: Yes Level of Service:40151 [place] OFFICE/OUTPATIENT ESTABLISHED MOD MDM 30 MIN Reason for Visit and Comments: Follow-up [102868] - Follow up -indigo Medrano [facility] 30on 01-22-2024 30 Problem: Pain - Adul [...] and maintained or improved Outcome: Progressing Normal [facility] BASIC METABOLIC PANELon 12-28 Anion gap [Moles/Vol] 13 mmol/L Normal 7-20 [facility] Comment on above: Performed By: #### L AB15 #### [facility] (AKER) [address] [place] [address] Calcium [Mass/Vol] 9.4 mg/dL Normal 8.6-10.3 [facility] Comment on above: Performed By: #### L AB15 #### [facility] (AKER) [address] [place] [address] Chloride [Moles/Vol] 111 mmol/L High 98-107 [facility] Comment on above: Performed By: #### L AB15 #### [facility] (BEAKER) [address] [place] [address] CO2 [Moles/Vol] 19 mmol/L Low 21-31 [facility] Comment on above: Performed By: #### L AB15 #### [facility] (BEAKER) [address] [place] [address] Creatinine [Mass/Vol] 1.83 mg/dL High 0.70-1.30 [facility] Comment on above: Performed By: #### L AB15 #### [facility] ([facility]) [address] [place] [address] GLOMERULAR FILTRATION RATE ML/MIN/1.73 SQ M.PREDICTED 34.8 mL/min/1.73m*2 Low >60.0 [facility] Comment on above: Result Comment: The [facility]???s estimated glomerular filtration rate (eGFR) will no [...] individuals. Performed By: #### L AB15 #### [facility] ([facility]) [address] [place] [address] Glucose [Mass/Vol] 103 mg/dL High 70-100 [facility] Comment on above: Performed By: #### L AB15 #### [facility] ([facility]) [address] [place] [address] Potassium [Moles/Vol] 5.2 mmol/L High 3.5-5.1 [facility] Comment on above: Performed By: #### L AB15 #### [facility] ([facility]) [address] [place] [address] Sodium [Moles/Vol] 138 mmol/L Normal 136-145 [facility] Comment on above: Performed By: #### L AB15 #### [facility] ([facility]) [address] [place] [address] Urea nitrogen [Mass/Vol] 50 mg/dL High 7-25 [facility] Comment on above: Performed By: #### L AB15 #### [facility] ([facility]) [address] [place] [address] UREA NITROGEN/CREATININE (MASS RATIO) IN SER/PLAS 27.3 Normal [facility] Comment on above: Performed By: #### L AB15 #### [facility] ([facility]) [address] [place] [id number] CBCon 01-22-2024 Erythrocyte distribution width (RBC) [Ratio] 15.0 % Normal 11.5-15.0 [facility] Comment on above: Performed By: #### L [id number] ####[facility] ([facility])[address] [place] [address] ERYTHROCYTE MEAN CORPUSCULAR HEMOGLOBIN CONCENTRATION (G/DL) BY AUTOMATED 31.9 g/dL Low 32.0-35.0 [facility] Comment on above: Performed By: #### L [id number] ####[facility] ([facility])[address] [place] [address] Hematocrit (Bld) [Volume fraction] 26.0 % Low 39.0-55.0 [facility] Comment on above: Performed By: #### L [id number] ####[facility] ([facility])[address] [place] [address] Hemoglobin (Bld) [Mass/Vol] 8.3 g/dL Low 13.0-17.0 [facility] Comment on above: Performed By: #### L [id number] ####[facility] ([facility])[address] [place] [address] MCH (RBC) [Entitic mass] 30.5 pg Normal 27.0-33.0 [facility] Comment on above: Performed By: #### L [id number] ####[facility] ([facility])[address] [place] [address] MCV (RBC) [Entitic vol] 95.6 fL Normal 82.0-98.0 [facility] Comment on above: Performed By: #### L [id number] ####[facility] [place] [address] PLATELETS (10*3/UL) IN BLOOD AUTOMATED COUNT 120 10*3/uL Low 150-400 [facility] Comment on above: Performed By: #### L [id number] ####[facility] ([facility])[address] [place] [address] RBC (Bld) [#/Vol] 2.72 10*6/uL Low 4.20-5.70 [facility] Comment on above: Performed By: #### L [id number] ####[facility] ([facility])[address] [place] [address] WBC (Bld) [#/Vol] 3.09 10*3/uL Low 4.00-10.60 [facility] Comment on above: Performed By: #### L [id number] ####[facility] (BEAKER)[address] [place] [id number] DSon 01-22-2024 DS - Attestation signed by Kelly Morales MD at 01/22/2024 3:03 PM I discussed the patient on the same date of service as the Non-Physician Provider Gail Watkins NP. Teaching Physician's Revisions: none Admission Admitted 01/21/2024 for Permanent atrial fibrillation ([facility]* Discharge Diagnosis Permanent atrial fibrillation (CMS/HCC) S/p Left atrial appendage closure (01/21/24) Hyperkalemia [...] 40 mg tablet Commonly known as: Lasix [facility] 40-10-5-3.3 mg tablet Generic drug: kzevkbrvw-iigcogxt-qb r-hyalur omeprazole [address] capsule Commonly known as: PriLOSEC STOP taking these medications warfarin 5 mg tablet Commonly known as: Coumadin Where to Get Your Medications These [facility] [address] [facility] [address] amLODIPine 10 mg tablet aspirin 81 mg [...] epistaxis, history of GI bleeding, presented to [facility] for planned left atrial appendage closure by food product inspector, Dr. Morales on 01/21/24. Patient underwent successful [...] asymptomatic, no rhythm changes per review of hall monitor. Discussed with Dr. Morales who recommends [...] guidance. 5 (more content not included)... Normal [facility] Outside [facility] Correspo ndence01-22-2024 Outside [facility] Correspondence [id number] .00TIFF Normal [facility] 30on 01-21-2024 30 The patient [...] injury: Assess patient frequently for physical needs Brady fall precautions as indicated by assessment Identify [...] and prevent overall improvement and discharge Normal [facility] 30 Problem: Pain - Adul t Goal: [...] did make progress toward the following goals. [facility] HPon 01-21-2024 History Of Present Illness Ry Lerner is a 88 y.o. male presenting for WLILIAM closure. He is 88-year-old man with history [...] a past medical history of Atrial fibrillation ([facility]), Hypertension, and Tachycardia-bradycard ia ([facility]). Surgical History He has a [...] 5.0, BUN 35, creatinine 1.8, EGFR 36 HELDER 01/03/2024: Left Ventricle: Global left ventricular systolic [...] medical histo (more content not included)... Normal [facility] MRSA/MSSA DNA NASALon 2023 MRSA DNA Positive Abnormal Negative [facility] Comment on above: Order Comment: Testi ng [...] preclude nasal colonization. Performed By: #### L [id number] ####[facility] (BEAKER)[address] [place] [address] MSSA DNA Negative Normal Negative [facility] Comment on above: Order Comment: Testi ng [...] preclude nasal colonization. Performed By: #### L [id number] ####[facility] (BEAKER)[address] [place] [address] NURSNOTEon 01-21-2024 NURSNOTE Report given to CORI Linton from RICKY Doyle Any medications or safety alerts were reviewed. Any pending diagnostics and notifications were also reviewed, as well as any safety concerns or issues, abnormal labs, abnormal imagining, and abnormal assessment findings. Questions were answered. Normal [facility] NURSNOTE Bedside swallow stud y completed and passed. Normal [facility] NURSNOTE CHG wipes completed. Normal [facility] TYPE AND SCREENon 01-21-2024 AB SCREEN Negative Normal [facility] Comment on above: Performed By: #### L [id number] ####[facility], ABO group Nom (Bld) O Normal [facility] Comment on above: Performed By: #### L [id number] ####[facility], RH TYPE IN BLOOD Positive Normal [facility] Comment on above: Performed By: #### L [id number] ####[facility], Prep for Procedureon 024 Prep for Procedure [id number] Ry Lerner 1935 M Date Provider Department [facility] Family History Family history unknown: Yes Normal [facility] Echocardiographyon Echocardiography [id number] .00TIFF Normal [facility] ANESon 01-03-2024 ANES - Attestation [...] Information Date/Time: 01/03/24 1230 Procedure: TRANSESOPHAGEAL ECHO (HELDER) Location: [facility] Vascular Lab Clinical information reviewed: [facility] Meds Physical Exam Airway Mallampati: III Neck ROM: full Cardiovascular Rhythm: regular Rate: normal Dental Pulmonary Breath sounds clear to auscultation Abdominal Abdomen: soft Anesthesia Plan ASA 3 other (Moderate anesthesia ) Anesthetic plan and risks discussed with patient. Use of blood products discussed with patient who consented to blood products. Additional Equipment Requests Normal [facility] HPon 01-03-2024 - Attestation signed by Xochitl [...] is a 88 y.o. male presenting for HELDER procedure today. Past medical history is pertinent for longstanding persistent atrial fibrillation with an elevated DYZ1QP5-ULMg score of 6 due to age, hypertension, [...] a past medical history of Atrial fibrillation ([facility]), Hypertension, and Tachycardia-bradycard ia ([facility]). Surgical History He has a [...] Cardiac device check - In Clinic 08/02/2023 [id number] Final ROS: 10 organ systems have been [...] (cerebrovascular accident) Patient is scheduled for a HELDER procedure today to assess the left atrial appendage anatomy. An informed consent was signed by the patient prior to procedure. All concerns and questions have been addressed. Trenton William MD Cardiovascular disease fellow [facility] NURSNOTEon 01-03-2024 NURSNOTE Bedside swallow stud y completed and passed. [facility] NURSNOTE RN educated pt on d/ c instructions. RN encouraged pt to voice any questions or concerns. Pt verbalizes no questions or concerns at this time. Pt was wheeled off of unit with all of belongings. [facility] Telephoneon 12-25-2023 Telephone [id number] Toi Lerneryin Frausto 1935 M Date Provider Department Center 12/25/2023 OTONIEL ALMEIDA [facility] Family History Family history unknown: Yes [facility] Family Medicine Office/Clini c Noteon 12-10-2023 [...] Daily, # 90 tab(s), Refills(s) 1, Pharmacy: [facility], 179, cm, 09/03/23 10:34:00 EST, Height/Length Dosing, 100.9, kg, 09/03/23 10:34:00 EST, Weight Dosing amlodipine, 5 mg = 1 tab(s), Oral, Daily, X 90 day(s), # 90 tab(s), Refills(s) 3, Pharmacy: [facility], 180, cm, 12/03/23 10:39:00 EDT, Height/Length [...] # 90 cap(s), Refills(s) 3, Pharmacy: [facility], 180, cm, 12/03/23 10:39:00 EDT, Height/Length [...] Diabetes me (more content not included)... Normal [facility] Comment on above: Result Comment: Elec tronically Signed By: Ezequiel CHAMBERS, John Guan.br\Date and Time Signed: 12/10/23 12:54 EDT Office Visiton 12-04-2023 Follow-up visit [id number] Ry Lerner 1935 M Date Provider Department Center 12/04/2023 KELLY MARTIN Family History Family history unknown: Yes Level of Service:14719 [place] OFFICE/OUTPATIENT ESTABLISHED HIGH MDM 40 MIN Normal [facility] Patient Educationon 12-03-19 24 Patient Education Orthopedics [...] these instructions at home: Medicines ? Take xagx-oul-strjhai and prescription medicines only as told by [...] who ariza (more content not included)... Normal [facility] RAD - CT Reporton 11-26-2023 RAD - CT Report [id number] .00TIFF Normal [facility] RAD - CT Reporton 11-15-2023 RAD - CT Report [id number] .00TIFF Normal [facility] Physician Orderon 10-31-2023 Physician Order [id number] .00TIFF Normal [facility] Ambulatory Visit Summaryon 0 10-30-2023 Ambulatory [...] choosing us for your care. Normal [facility] Family Medicine Office/Clini c Noteon 10-30-2023 Family Medicine Office/Clinic Note HPI Staff Ry is a 88 year old male presenting for follow up Called 10/29/23 for records he was there for medication management, no record of CT scan . pt states [facility] had no order for CT of abdomen and pelvis. daughter would like to discuss watchman . Seen ui engineer today. Hemorid burst on Saturday. Daughter from [...] hospitalized for GI ulcer bleeding and anemia. Adelaida Rheamike is suggesting he have the watchman procedure [...] pelvis was ordered by September 29 but [facility] never received the order. new order sent to [facility] 4. BMI 30.0-30.9,adult (Z68.30: Body [...] influenza vi (more content not included)... Normal [facility] Comment on above: Result Comment: Elec tronically Signed By: Sheng Simms\.br\Date and Time Signed: 10/30/23 16:04 EDT Office Visiton 10-30-2023 Follow-up visit [id number] Ry Lerner 1935 M Date Provider Department Center 10/30/2023 KORINA GODOY [facility] Family History Family history unknown: Yes Level of Service:47086 [place] OFFICE/OUTPATIENT ESTABLISHED MOD MDM 30 MIN Reason for Visit and Comments: Follow-up [556345] - 6 month follow up Normal [facility] Orders Onlyon 10-30-2023 Orders Only [id number] Ry Lerner 1935 M Date Provider Department Center 10/30/2023 JULES NGUYEN B[facility] Family History Family history unknown: Yes Normal [facility] Lab Reportson 10-29-2023 Lab Reports [id number] .00TIFF Normal [facility] IntraOperative Documentson 0 10-28-2023 IntraOperative Documents [id number] .00TIFF Normal [facility] Consent for Anesthesiaon Consent for Anesthesia [id number]# 1.00TIFF Normal [facility] Discharge Instructionson Discharge Instructions [id number]# 1.00TIFF Normal [facility] IntraOperative Documentson 0 10-25-2023 IntraOperative Documents [id number]# 1.00TIFF Normal [facility] Main OR Intraoperative Recor don 10-25-2023 Main OR Intraoperative Record IntraOp Document Type FT Summary Primary Physician: Christelle Salazar MD Finalized Date/Time: 10/25/23 13:48:34 Pt. Name: RY LERNER/Sex: 1935 Male Med Rec #: [id number] Physician: Christelle Salazar MD Financial #: [id number] Pt. Type: A Room/Bed: [facility]/01 Admit/Disch: 10/24/23 12:15:19 - 10/24/23 15:50:00 Institution: [...] Entry 3 Case Attendee Kt NOWAK, Yovany Salazar MD, Christelle Irivng RN, Damion Calix Role Performed Anesthesiologist Surgeon - Primary Tank Wagon Driver - Primary Developmental Therapist Time In 10/24/23 13:45:00 10/24/23 13:52:00 10/24/23 13:45:00 Time Out 10/24/23 14:16:00 10/24/23 14:16:00 10/24/23 14:16:00 Procedure NASAL ENDOSCOPY(Right) NASAL ENDOSCOPY(Right) NASAL ENDOSCOPY(Right) Comments , anesthesia cloth laminating supervisor Last Modified By: Aristides RN, Damion Irving RN, Damion Irving RN, Damion Calix 10/24/23 14:16:08 10/24/23 14:16:08 10/24/23 14:16:08 Entry 4 Entry 5 Case Attendee Josefa Newell Sydney A Role Performed Staff - Other Scrub - Primary Time In 10/24/23 13:45:00 10/24/23 13:45:00 Time Out 10/24/23 14:06:00 10/24/23 14:16:00 Procedure NASAL ENDOSCOPY(Right) NASAL ENDOSCOPY(Right) Comments Last Modified By: Aristides RN, Damion Irving RN, Damion Calix 10/24/23 [...] Time Out Yovany James, Given Participants Christelle Salazar MD, Aristides PERSAUD, Reece Barraza Kelsie E, Dellinger, Sydney A [...] CAUTERIZATION Primary Procedure Yes Primary Surgeon Christelle Salazar MD Start 10/24/23 13:58:00 Stop 10/24/23 14:08:00 [...] and tissue Entry 1 Skin Integrity Intact, [place], Warm, and Outcomes Met? Yes Dry Last Modified By: Aristides PERSAUD, Damion Fifi 10/24/23 13:58:57 Post-Care Text: The patient is [...] Right Arm (more content not included)... Normal [facility] [facility] Operative Reporton Operative Report SURGERY DATE: 10/24/2023 PREOPERATIVE DIAGNOSIS: Right epistaxis POSTOPERATIVE DIAGNOSIS: Right epistaxis OPERATION: Right nasal endoscopy and cautery ANESTHESIA: General endotracheal COMPLICATIONS: None FINDINGS: Extensive excoriation of the right anterior middle turbinate and nasal septum INDICATIONS: This 88-year-old man presented with recurrent epistaxis of the right nose. His nose was packed last week at [facility], and then when he returned for [...] Christelle Salazar Jr., M.D. ca Dictated: 10/24/2023 [id number] Transcribed: 10/24/2023 cc:JAXON Shane [facility] Comment on above: Result Comment: Elec tronically Signed By: Marie CHAMBERS, Christelle H\.br\Date and Time Signed: 10/25/23 07:09 EDT Outside Recordson 10-25-2023 Outside Records [id number]# 1.00TIFF [facility] Preoperative Documentson Preoperative Documents [id number]# 1.00TIFF [facility] Progress Note-Physicianon Progress Note-Physician Patient: RY LERNER [...] meets criteria ( To home ). 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 Abnormal liver ultrasound / SNOMED CT 2374944539 / Confirmed Abnormal ultrasound of kidney / SNOMED CT 0097747649 / Confirmed Rotator cuff tear / SNOMED CT 5867115413 / Confirmed Nodule of kidney / SNOMED CT 610124270 / Confirmed Abnormal x-ray of cervical spine / SNOMED CT 956763583 / Confirmed Liver nodule / SNOMED CT 0862014647 / Confirmed HTN (hypertension) / SNOMED CT 2480763029 / Confirmed No details in previous records Hyperlipidemia / SNOMED CT 84159240 / Confirmed no details in previous chart Bleeding ulcer / SNOMED CT 9346624710 / Confirmed Hemoperitoneum / SNOMED CT 4742616271 / Confirmed No details in previous medical record Former cigar smoker / SNOMED CT 022353354 / Confirmed Eczema / SNOMED CT 42373980 / Confirmed Cyst of pancreas / SNOMED CT 63404466 / Confirmed Abnormal chest CT / SNOMED CT 6670076439 / Confirmed Contusion of lung / SNOMED CT 248215173 / Confirmed No details in previous records Skin texture changes / SNOMED CT 301294677 / Confirmed Acute cerebrovascular accident (CVA) / SNOMED CT 899833030 / Confirmed Cardiac pacemaker / SNOMED CT 3509546859 / Confirmed Dysrhythmias / SNOMED CT 6825008363 / Confirmed Tachy, Ryan BMI 30.0-30.9,adult / SNOMED CT 702157468 / Confirmed AF (atrial fibrillation) / SNOMED CT 82179330 / Confirmed Anemia / SNOMED CT 628293635 / Confirmed FE DEF Anemia Canceled: Aspiration pneumonia / SNOMED CT 2557980870 Histories Procedure history: Colonoscopy (611236035) on 12/12/2022 at 87 Years. Carpal tunnel release (575055486) on 12/10/2022 at 87 Years. Comments: 12/11/2022 11:34 HOWIET - Suma Dubois Left Cardiac pacemaker (48483161) in the month of 09/2021 at 86 Years. Colonoscopy (570095451) in the month of 02/2011 at 75 Years. Transurethral resection of prostate (TURP) syndrome (2455304590) in 1995 at 60 Years. Hernia (4057606037) in 1993 at 58 Years. Tonsillectomy with adenoidectomy (23585679). Social History Social & Psychosocial Habits Alcohol [...] adequate air exchange. Cardiovascular: Regular rhythm. Plan [place] [employer] of Anesthesiologists (ASA) physical status classification: Class III. Anesthetic Preoperative Plan: Anesthesia General. Normal [facility] Comment on above: Result Comment: Elec tronically Signed By: Ward Kraus Jr, DO\.br\Date and Time Signed: 10/25/23 09:03 EDT Consent for Treatmenton 09-27 Consent for Treatment [id number]#1 .00TIFF [facility] Discharge Instructionson Discharge Instructions RY LERNER :1935 [...] Freetext Keep head elevated one weekRestart coumadin 3/30Antibiotic ointment to the right nose 2 times [...] cuff tear Skin texture changes [employer] [place], [place] DISCHARGE INSTRUCTIONS: NASAL SURGERY DO NOT [...] the office with any questions or problems: [phone] ([place] office) The above information has been explained, I have had the opportunity to have my questions answered, and I have received a copy. Responsible Alliance Party Signature Surgeon?s Signature Nurse?s Signature Reviewed: 09/05 [...] We want (more content not included)... Normal [facility] Comment on above: Result Comment: Elec tronically Signed By: Andie PERSAUD, Yann Estevez\.br\Date and Time Signed: 10/24/23 14:43 EDT H&P Updateon 10-24-2023 H&P Update [id number]# 1.00TIFF Normal [facility] Inpatient Patient Summaryon 10-24-2023 Inpatient Patient Summary [place] [id number] [facility] Clinical Discharge Instructions PERSON INFORMATION Name: LERNERRY PHYSICIANS Admitting Physician: Christelle Salazar MD Attending [...] Tablets By Mouth every day., managed per [facility] Comment: Mitchell [facility] Main OR PACU I Recordon 09-27 Main OR PACU I Record PACU Phase I Docum ent Type FT Summary Primary Physician: Christelle Salazar MD Finalized Date/Time: 10/24/23 15:11:48 Pt. Name: RY LERNER Benji/Sex: 1935 Male Med Rec #: [id number] Physician: Christelle Salazar MD Financial #: [id number] Pt. Type: A Room/Bed: [facility]/ Admit/Disch: 10/24/23 12:15:19 - Institution: Case Times [...] By: Cristina Almazan RN 10/24/23 15:11 Normal [facility] Main OR Preoperative Recordo n 10-24-2023 Main OR Preoperative Record PreOp Document Type FT Summary Primary Physician: Christelle Salazar MD Finalized Date/Time: 10/24/23 13:53:33 Pt. Name: RY LERNER/Sex: 1935 Male Med Rec #: [id number] Physician: Christelle Salazar MD Financial #: [id number] Pt. Type: A Room/Bed: [facility]08/29 Admit/Disch: 10/24/23 12:15:19 - Institution: Case Times [...] By: Damion Irving RN 10/24/23 13:53 Normal [facility] Monitor Recordon 10-24-2023 Monitor Record [id number]# 1.00TIFF Normal [facility] Monitor Record [id number]# 1.00TIFF Normal [facility] Outpatient Surgery Discharge Instructionon 10-24-2023 Outpatient Surgery Discharge Instruction [place] [id number] Patient Discharge Instructions PERSON INFORMATION Name: RY LERNER Date of : 1935 Current Date: 10/24/2023 14:31:19 PHYSICIANS Admitting Physician: Marie CHAMBERS, Christelle Diaz Discharge Diagnosis: Epistaxis YANN RY has been [...] Information: You may receive a survey from [employer] asking you to rate your care experience. Your feedback is important and will help us understand what we do well and how we can improve the quality of care we provide to you, your loved ones and our community. It?s an honor to serve you. Thank you for choosing [facility] HERE ARE THE MEDICATION CHANGES THAT OCCURRED [...] Tablets By Mouth every day., managed per [facility] PATIENT EDUCATION INFORMATION Instructions: Medication Leaflets: Normal [facility] Patient Education - Texton 0 10-24-2023 Patient Education - Text [place], [place] Royal Granger, DO DISCHARGE INSTRUCTIONS: NASAL [...] medications as prescribed. Use the Nasal Relief [place] (decongestant) 2 sprays each nostril every hours. Use the Nasal Saline [place] 2 sprays each nostril every 2 hours. [...] the office with any questions or problems: [phone] ([place] office) The above information has been explained, I have had the opportunity to have my questions answered, and I have received a copy. Responsible Alliance Party Signature Surgeon?s Signature Nurse?s Signature Reviewed: 09/05 Normal [facility] BMPon 10-23-2023 Anion gap [Moles/Vol] 11 mmol/L Normal 6-16 [facility] Comment on above: Performed By: #### 1 [id number], [id number] ####[facility] [address] [place] [address] Calcium [Mass/Vol] 10.5 mg/dL Normal 8.9-11.1 [facility] Comment on above: Performed By: #### 1 5441354, [id number] ####[facility] [address] [place] [address] Chloride [Moles/Vol] 110 mmol/L Normal 101-111 [facility] Comment on above: Performed By: #### 1 3296817, [id number] ####[facility] [address] [place] [address] CO2 [Moles/Vol] 25 mmol/L Normal 21-31 [facility] Comment on above: Performed By: #### 1 8498214, [id number] ####[facility] [address] [place] [address] Creatinine [Mass/Vol] 2.2 mg/dL High 0.5-1.3 [facility] Comment on above: Performed By: #### 1 9286406, [id number] ####[facility] [address] [place] [address] Glucose [Mass/Vol] 111 mg/dL Normal 55-199 [facility] Comment on above: Performed By: #### 1 7147340, 9016647 ####[facility] [address] [place] [address] Potassium [Moles/Vol] 5.3 mmol/L Normal 3.5-5.3 [facility] Comment on above: Performed By: #### 1 7593030, 0991876 ####[facility] [address] [place] [address] Sodium [Moles/Vol] 141 mmol/L Normal 135-145 [facility] Comment on above: Performed By: #### 1 7224058, 1867103 ####[facility] [address] [place] [address] Urea nitrogen [Mass/Vol] 60 mg/dL High 5-21 [facility] Comment on above: Performed By: #### 1 2928396, 8117672 ####[facility] [address] [place] [address] Urea nitrogen/Creatinine [Mass ratio] 27 No Units High 10-20 [facility] Comment on above: Performed By: #### 1 8264168, 7895978 ####[facility] [address] [place] [address] CBC w/ Auto Diffon 4 Basophils/100 WBC (Bld) 0.6 % Normal 0.0-2.0 [facility] Comment on above: Performed By: #### 2 271852, [id number] #### [facility] [address] [place] [address] Basophils/Leukocytes Auto (Bld) [Pure # fraction] 0.0 E9/L Normal 0.0-0.2 [facility] Comment on above: Performed By: #### 2 809123, [id number] #### [facility] [address] [place] [address] Eosinophils (Bld) [#/Vol] 0.2 E9/L Normal 0.0-0.5 [facility] Comment on above: Performed By: #### 2 222123, [id number] #### [facility] [address] [place] [address] Eosinophils/100 WBC (Bld) 3.7 % Normal 0.0-8.0 [facility] Comment on above: Performed By: #### 2 365961, 67124984 #### [facility] [address] [place] [address] Erythrocyte distribution width (RBC) [Ratio] 14.4 % High 10.9-14.2 [facility] Comment on above: Performed By: #### 2 263104, 13657711 #### [facility] [address] [place] [address] Hematocrit (Bld) [Volume fraction] 27.9 % Low 37.7-49.0 [facility] Comment on above: Performed By: #### 2 414468, 00578060 #### [facility] [address] [place] [address] Hemoglobin (Bld) [Mass/Vol] 9.0 g/dL Low 13.5-17.5 [facility] Comment on above: Performed By: #### 2 304533, [id number] #### [facility] [address] [place] [address] Lymphocytes (Bld) [#/Vol] 0.6 E9/L Low 1.0-4.0 [facility] Comment on above: Performed By: #### 2 433906, 65741454 #### [facility] [address] [place] [address] Lymphocytes/100 WBC (Bld) 14.4 % Normal 14.0-50.0 [facility] Comment on above: Performed By: #### 2 009085, 04132287 #### [facility] [address] [place] [address] MCH (RBC) [Entitic mass] 31.0 pg Normal 27.0-34.0 [facility] Comment on above: Performed By: #### 2 534414, 40108667 #### [facility] [address] [place] [address] MCHC (RBC) [Mass/Vol] 32.4 g/dL Normal 31.4-36.0 [facility] Comment on above: Performed By: #### 2 323397, [id number] #### [facility] [address] [place] [address] MCV (RBC) [Entitic vol] 95.7 fL Normal 80.0-100.0 [facility] Comment on above: Performed By: #### 2 796026, [id number] #### [facility] [address] [place] [address] Monocytes (Bld) [#/Vol] 0.4 E9/L Normal 0.2-1.0 [facility] Comment on above: Performed By: #### 2 732429, 68231642 #### [facility] [address] [place] [address] Neutrophils (Bld) [#/Vol] 3.0 E9/L Normal 2.0-7.5 [facility] Comment on above: Performed By: #### 2 106737, [id number] #### [facility] [address] [place] [address] Neutrophils/100 WBC (Bld) 72.5 % Normal 36.0-75.0 [facility] Comment on above: Performed By: #### 2 520428, 80548572 #### [facility] [address] [place] [address] Platelet 187.0 E9/L Normal 150.0-500.0 [facility] Comment on above: Performed By: #### 2 409731, 10632161 #### [facility] [address] [place] [address] Platelet mean volume (Bld) [Entitic vol] 8.3 fL Normal 6.4-10.8 [facility] Comment on above: Performed By: #### 2 055123, 95211044 #### [facility] [address] [place] [address] RBC (Bld) [#/Vol] 2.9 E12/L Low 4.3-5.9 [facility] Comment on above: Performed By: #### 2 784064, [id number] #### [facility] [address] [place] [address] WBC corrected for nucl RBC Auto (Bld) [#/Vol] 4.1 E9/L Normal 4.0-11.0 [facility] Comment on above: Performed By: #### 2 514868, 44344843 #### [facility] [address] [place] [address] CHEMISTRYOrdered By: SYSTEM SYSTEM on 10-23-2023 Anion [...] 30.4 s Normal 25.1 - 36.5 second(s) [facility] Auto Coag Comment on above: Interpretive Data: [...] the same coagulation reagent and instrumentation as [facility]. Currently there are no coagulation studies available worldwide for children to 14 days, and no normal ranges. Heparin therapeutic range (represented by Anti-Factor Xa activity of 0.2 - 0.4 U/mL) corresponds to PTT of 56.6 - 109.0 sec. INR Coag (PPP) [Relative time] 1.13 {INR} Invalid Interpretation Code [facility] Auto Coag Comment on above: Interpretive Data: I NR results are specifically intended to assess patients stabilized on long-term Anticoagulation therapy suggested INR s Less Intensive Anticoagulation 2.0 3.0 Conventional Range 3.0 4.5 PT Coag (PPP) [Time] 12.7 s High 9.4 - 1 2.5 second(s) [facility] Auto Coag Comment on above: Interpretive Data: [...] the same coagulation reagent and instrumentation as [facility]. Currently there are no coagulation studies available worldwide for children to 14 days, and no normal ranges. Consent for Procedure/Surger yon 10-23-2023 Consent for Procedure/Surgery [id number]# 1.00TIFF [facility] Consent for Treatmenton 09-27 Consent for Treatment [id number]#1 .00TIFF [facility] HEMATOLOGYOrdered By: SYSTEM SYSTEM on 10-23-2023 Basophils/100 [...] Remisol Heme Outside Recordson 10-23-2023 Outside Records [id number]# 1.00TIFF Normal [facility] PT & PTTon 10-23-2023 aPTT Coag (PPP) [Time] 30.4 second(s) Normal 25.1-36.5 [facility] Comment on [...] the same coagulation reagent and instrumentation as [facility]. Currently there are no coagulation studies available worldwide for children to 14 days, and no normal ranges. Heparin therapeutic range (represented by Anti-Factor Xa activity of 0.2 - 0.4 U/mL) corresponds to PTT of 56.6 - 109.0 sec. Performed By: #### 2 260718, [id number] #### [facility] [address] [place] [address] INR Coag (PPP) [Relative time] 1.13 {INR} Invalid Interpretation Code [facility] Comment on above: Result Comment: INR results are specifically intended to assess patients stabilized on long-term Anticoagulation therapy suggested INR?s ?Less Intensive Anticoagulation? 2.0 ? 3.0 Conventional Range 3.0 ? 4.5 Performed By: #### 2 024284, [id number] #### [facility] [address] [place] [address] PT Coag (PPP) [Time] 12.7 second(s) High 9.4-12.5 [facility] Comment on [...] the same coagulation reagent and instrumentation as [facility]. Currently there are no coagulation studies available worldwide for children to 14 days, and no normal ranges. Performed By: #### 2 623084, [id number] #### [facility] [address] [place] [address] Physician Orderon 10-23-2023 Physician Order [id number] #1.00TIFF Normal [facility] XR Chest 2 Viewson XR [...] Kraus FINAL REPORT Dictated: 10/23/2023 2:05 pm Kala Montaño, Jamie Calix Signed (Electronic Signature): 10/23/2023 2:05 pm Signed by: Jamie Armendariz M.D. Transcribed by: CHAITANYA Technologist: XOCHITL Technical Comments Radiation Dose: Ka,r in mGy = na DAP = na Normal [facility] eGFRon 10-23-2023 eGFR 28 mL/min/1.73 m2 Low >=59 [facility] Comment on above: Order Comment: Order added by Discern Expert. Performed By: #### 1 [id number], [id number] ####[facility] [address] [place] [address] ED Note-Physicianon 10-21-19 ED Note-Physician [id number]#1 .00TIFF Normal [facility] Lab Reportson 10-16-2023 Lab Reports [id number]#1 .00TIFF Normal [facility] Ambulatory Visit Summaryon 0 10-02-2023 Ambulatory [...] choosing us for your care. Normal [facility] Family Medicine Office/Clini c Noteon 10-02-2023 Family Medicine Office/Clinic Note HPI Staff Ry is an 87 year old male presenting for 1 month follow up [place] 09/04/23 Liver nodule, U/s of liver was ordered and referred to GI at [facility], labs drawn pt seen seen lead java programmer 09/30/[address] ordered with some [...] pt planning to take a trip to [place] tomorrow and will be gone for 9 [...] vaccine, inactivated 04/14/20 (more content not included)... [facility] Comment on above: Result Comment: Elec tronically [...] Recorded SARS-CoV-2 (COVID-19 (more content not included)... [facility] Comment on above: Result Comment: Elec tronically Signed By: Greg CHAMBERS, Mary Jane Eddy\.br\Date and Time Signed: 09/30/23 14:51 EST Consultation Noteon 09-09-19 24 Consultation Note [id number]#1 .00TIFF [facility] Physician Referralon 024 Physician Referral [id number]#1 .00TIFF [facility] Family Medicine Office/Clini c Noteon 09-04-2023 Family Medicine Office/Clinic Note HPI Staff Ry is a 87 year old male presenting to review x-rays Pt has x-rays done on 08/28/23, CT chest on 08/30/[address] right shoulder 09/02/23 Pt needs refill on furosemide pt states 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 pt referred to GI at [facility]. liver enzymes ordered as well. pt will have labs drawn at [facility]. RTC 1 month to touch base with all of the additional testing and referral we have placed. Ordered: [facility] Internal Ambulatory Referral 2. Nodule of kidney [...] stools and HGB dropped critically low Ordered: [facility] Internal Ambulatory Referral 5. Abnormal x-ray of cervical spine (R93.7: Abnormal findings on diagnostic imaging of other parts of musculoskeletal system) CT of cervical spine ordered 6. Rotator cuff tear (M75.100: Unspecified rotator cuff tear or rupture of unspecified shoulder, not specified as traumatic) pt informed that he has an old rotator cuff tear. pt declines referral to ortho at this time Ordered: [facility] External Ambulatory Referral 7. BMI 31.0-31.9,adult (Z68.31: [...] Recorded influenza virus (more content not included)... [facility] Comment on above: Result Comment: Elec tronically Signed By: Sheng Simms\.br\Date and Time Signed: 09/04/23 12:27 EST Physician Referralon 024 Physician Referral [id number]#1 .00TIFF [facility] Ambulatory Visit Summaryon 0 09-03-2023 Ambulatory Visit [...] 10:00 AM EST With: Sheng Simms Where: [facility] Lab Reportson 09-03-2023 Lab Reports [id number]#1 .00TIFF [facility] Physician Orderon 09-03-2023 Physician Order [id number]#1 .00TIFF [facility] Consultation Noteon 08-30-19 Consultation Note [id number]#1 .00TIFF [facility] Physician Orderon 08-30-2023 Physician Order [id number]#1 .00TIFF [facility] Physician Orderon 08-29-2023 Physician Order [id number]#1 .00TIFF [facility] Physician Order [id number]#1 .00TIFF [facility] RAD - MISCon 08-29-2023 RAD - MISC [id number]# 1.00TIFF [facility] RAD - MISC [id number]# 1.00TIFF [facility] RAD - MISC [id number]#1 .00TIFF [facility] Ambulatory Visit Summaryon 0 08-28-2023 Ambulatory Visit [...] 10:20 AM EST With: Sheng Simms Where: [facility] Medicine [place] Normal [facility] Family Medicine Office/Clini c Noteon [...] has a difficult (more content not included)... [facility] Comment on above: Result Comment: Elec tronically Signed By: Sheng Simms\.br\Date and Time Signed: 08/28/23 13:35 EST\.br\Electronically Co-Signed By: Rene Brannon\.br\Date and Time Co-Signed: 08/28/23 13:09 EST Formson 08-28-2023 Forms [id number]#1 .00TIFF [facility] Patient Educationon 08-28-19 Patient Education Caregiving Fall [...] night-lights. ? Place frequently used items in ytsm-xk-ujosa places. Lower the shelves around your home [...] the way. ? Do not use floor libyan or wax that makes floors slippery. If [...] include working with a physical therapist or lead trainer to improve your strength, balance, and endurance. Where to find more information ? Centers for Disease Control and Prevention, [place]: www.cdc.gov ? National [place] on Aging: www.ed.nih.gov Contact a health care [...] (more content not included)... Normal [facility] Physician Referralon 023 Physician Referral [id number]# 1.00TIFF [facility] Ambulatory Visit Summaryon 1 09-03-2022 Ambulatory Visit [...] Follow-Up Appointments Saturday 11:00 AM EST Where: [facility] [place] Normal [facility] Family Medicine Office/Clini c Noteon [...] and CMP drawn at that visit. Ordered: [facility] External Ambulatory Referral [facility] External Ambulatory Referral 2. Skin texture changes (R23.4: Changes in skin texture) pt has a couple areas on his face that have changes in shape and color and will come off or flake off then comes back. Dr. Silva froze a couple areas a few years ago. will refer to dermatology to manage these areas and his eczema. Ordered: [facility] External Ambulatory Referral [facility] External Ambulatory Referral 3. BMI 31.0-31.9,adult (Z68.31: Body mass index [BMI] 31.0-31.9, adult) BMI education complete Ordered: Body Mass Index (BMI) documented 3008F Current tobacco non-user 1036F Depression Screening Negative 3352F [facility] External Ambulatory Referral [facility] External Ambulatory Referral Influenza immunization status assessed [...] tobacco non-user 1036F Depression Screening Negative 3352F [facility] External Ambulatory Referral [facility] External Ambulatory Referral Influenza immunization status assessed [...] tobacco non-user 1036F Depression Screening Negative 3352F [facility] External Ambulatory Referral [facility] External Ambulatory Referral Influenza immunization status assessed [...] (more content not included)... Normal [facility] Comment on above: Result Comment: Elec tronically Signed By: Sheng Simms.viviane\Date and Time Signed: 07/03/23 12:49 EST Lab Reportson 07-02-2023 Lab Reports [id number] Normal [facility] Office Visiton 05-15-2023 Follow-up visit [id number] Ry Lerner Lisbet 1935 M Date Provider Department Center 05/15/2023 [place] [facility] Family History Family history unknown: Yes Level of Service:36927 [place] OFFICE/OUTPATIENT ESTABLISHED MOD MDM 30-39 MIN Normal [facility] Physician Referralon 023 Physician Referral [id number]#1 .[id number]:127 Normal [facility] Consultation Noteon 03-11-20 Consultation Note [id number] .00CD:127 [facility] Office/Clini c Noteon 01-23-2023 Family [...] time. Patient was treated at [facility]. Questions/Concerns: History of Present Illness pt [...] to follow up with Dr. Vargas in [place] and also placed a GI consult. since then his so he has not made any of those appointments. pt wants to stop taking lasix. encouraged daughter to make appointment with Dr. Vargas and let him decide if he can stop lasix. will draw pt/ptt in office today and compare to labs that were drawn in [place] end of November. still waiting for those labs. will call pt tomorrow once we have lab results. omeprazole refills also sent to pharmacy. they will hold off on GI referral until they get meds situated with ui engineer. Dr. Vargas's office was called notified. and [...] (more content not included)... Normal [facility] Comment on above: Result Comment: Elec tronically Signed By: Brissa HOMOGENIZER OPERATOR, Sheng L\.br\Date and Time Signed: 01/23/23 16:36 EDT Coding Summaryon 01-01-2023 Coding Summary HTMLBase 64 EdoxggqqUDp4mNn+PGhlY WQ+TK1QVAFbY61ocXFcfW 4xB1CWEBiDTuerJNPCGRk ZMpCrwsSmUG5tpZSyWUQa IC8+UU5kHUSyYkrdcPDnb 7R1fHD7C92dqo0nPUmbzV O3QLDcPtVsxajij0xubWk 6IDcuNmluOyBt XGWfvD71LBK8eN95Sz41n WSpnBQgv9ttoHe9YuSyFX CgALG7hLoaTMbch7UuYAY eI18dqHYyw1U7 RYLwfKnylURoLpRivOZ9p F5uACdadbrfe8sjvivxXf m4eh47aZOhm3P1xFX3T0H hrsO2RVHouQEr ZqcinXVLlP2ihybob7eqp jpyKmJrFBAgAZx5CIo1KD OnlRurTuUoVL95URX0MFN umuPbE2NwUHWz uOytLyB1q2F0Gb3PR0LGU kuoK8DTQBNZHFpnzVN+PC 58zi00M4OgRzrgUyi7UKT eAYM0kIP8wG0x FNLsWZlfu5U6lQP9I8Zhh cFxqp3ro0wnINYjKUyzB9 8evVFwy7A8FVWieCF8YUW qeCzfRiOxrQ46 Oyc+BJMyrPcmi5NbCidyz 4keg2ybdUr3AihdUDHzma FcnFweIGS5a2XoRn6dNHO qxIJ9bPY7zX3d TaAnDiF6XDxyM941NkHjm AUtGiryZ15oT5RzmVF+PH YoWax1OYZjfUqbZY0uI9I hZGRpbmctbGVm iXssDA5bEJYqjaruWWFwn C5rGVWuM3p7SqOsYoI6NT aiZ6XcTREryvewBr22tD8 xRrIyKfA7OYkm D6FozwW7KSHfzHHhWIfaO FO9T43ef5O5MAThLCOqCM J2uFC4tQ1acLgigcznoGY mdDsgdmVydGlj ORppBSzeE796DTCxpVscV kNvZGluZyBEYXRlOiAgMD YvMDYvMjAyMzwvdGQ+PHR rZKM3oNxtPLUg lHVrEIpzFb2kbKsoiPlyG W5oMTXtmqzwPTDakV0hMT SzhSPnkZjcWF7aJIZeyho oq473LwWySTX7 DDZqiYBcF2ChaM1jOkJiC IPxPTWqS6QroWCsPHneF4 17CTvjPxL4ATGbxnZuL5U sLWFsaWduOiB0 i8T0Ou3Xn0MlacxmE7Lpc VBcNxOkWwztGEg0U8AdAj wvdHI+HZ37KDWoJP50LCr 8FXZ2xTzdROil RDKvQ2DfuQ7uGmTbWJRhN GRkOyc+PHRhYmxlIHdpZH RoPScxMDAlJyBzdHlsZT0 cNd9zCJWvVFLo lJbtmXFlWwUtw6pkTVTkM NjtMQ7flZatS7WvbXG4OU Hmf4i3Fv32O85hT2RpsXH +XMSqgAL7hWD6 gJ8zRsWyDfX0OFnmT403A mMwvFXhQvttb1ivw3hfzI e1CcU2IMFwqwJewCcaFDR 0z7YfYf99N53r IHdpZHRoPSIxNSUiIHZhb Ecjzq3tiA9rEf9+PGNvbC C7nIV3qB7qMzTrKsE2CGv yA717RqTkyOVn Kyyvh9ygg1vyjBp6OcBlW YPcunZacDrxRST9a1WtLd 71Y3QiaSvfu8KuBrk0qh1 5bRGwi9P6jXS5 S8XhGGInmcnvtXYngQelD Q7oSBHamdtqPHMvdZ0hSQ XeJ2l2IbUjXjR2TMloW3Y fvwH0MMHjtELl KTKppQQEnD1kmmunh9cme nhdEkItSMSjPOp0ORq7PV JdlXhkZmRfVBX8OyM6ZPQ 9lTLeyM6xkAoq emnghV2dMhf+XFJ2kDNkb CUALY6qBezleFZ+PHRkIH A5iXjbHWotRNBjgE6qNFX zQ5b7WkXrTdI0 EXsaN1FfvmD7VNRebHBmP ERycSJXnB0wmnqol7shle maGqAwZGRnKTp2VHg1GXQ saWduOiBsZWZ0 PpX8LLE8iVRpyU4bsCkro lqfuK6oDef+QmlydGggRG Q8HUk0W2FeSxt8IEAppMr wOT4itPPsGWjk Ur7uzBahfLvyQD7lQUFvt jpaf364WsIbj1xlMMKdwZ RtHTkjYDP1H32wy3L4YVG hOYXeDAE2eWE8 qZ6teQfzktmogEGajMgow vWznHwmANuzVPkqR848YU DhlBdpDtQmDIj6W2YrEqk 5YNIcwAcrNA2b hFOpDJxbKx3ycShiqRwxE H6vZTNlcmcry913QdHip2 wkEMTckRUuHQkpWOH0O31 ls5L0HKJjBEPh CHD5fTM1eR6gaExzvldqp GVmdDsgdmVydGljYWwtYW efL593CZZdbDgtZpOahPo 2D5YhRcb3MQOt hAvtVJ9vmSWjRYrzEt0ut HdswGrdOH1wLIMdbiwml0 15OcYwz2wqEMFslKCbDUh aXQB0G93ry4N0 QDZlELPpKMH5hTE4nO9uy GlnbjogbGVmdDsgdmVydG csRXvtVXfcV054NLRmjAk nPlBhdGllbnQg GMxsWMv7X4SqOooruDP+P L55VJLiHF34oOFsyZLoa4 iluVm9GpQyEWMsSTL1wUk mFHptr0FjGVCa H10ueACih2B6KRAxqYout PGjOlDrmTJ6vK8iZOpvza yic0mozdahRzsqa9iypl9 2xT06A14mATtk ZHRoPSIzMCUiIHZhbGlnb t8zfN9eFf7+XDZzrBM7kQ O1fO6kLQPuWiK2BZylZ15 9InRvcCIvPjxj n9bjx9ibsEx0RvV0ESHwz gXueYllDSQ7i3UkMq24M8 9sIHdpZHRoPSIyMCUiIHZ vsTrfds7ceS1p Ii8+GLShkGS2oMN8lE9gL wUvUkD3FCukE379DjPkpR BiPhvmV61jX3JswKU+PHR yKvt9VMPivIfb IP7msUMbDGbpMu4pKDQ6V mJeXvRhDSjhU4ZdKDDslt huddadtHZ9WZXmMVXmpA4 0Cz2kuRmwLEDw tGWHvC7oqdlyj3gkbgpgE yNtEQWmJSp1EKa9XCPzuO evGwBkQTT7OrG7ZXG6uVE ozC8hrUnzbsvb bU8jB5LhNWAwiwqtGe93l K8uLpFbKxO7JRqhHfk+TU xYWESYUUAXULIDOX0VNCo ZU33HHM53MT89 eWOlw6O3wWP9O4ViBVDvv mdtwoenyIZ7AMYoRFPraY 05oZElZFczMm1ar5V9v80 4XYQfEXLauB83 Dc0obPtuUOQzfTRXiU3gh rdyd9eiehiwQpFsSVLqRV v6LEi0XBZbuTevTaXmPDX 6ZhU9FVN3vQCn vB6seYfqmidbaW0eGxn+M DMvMDQvMTkzNTwvdGQ+PH KrKAF1ySxjDNpdTEQwbV7 hRLCxY1i3ZbYh WeW8IZtfP0GbAXJhctlwU r48bH9xPiQaXjL6CKpxA9 TascW7CRFfiJVtWRqoYFE 7I93uz3E5BBTe YHCjLYF7wXQ7dS0kmNcqn jogbGVmdDsgdmVydGljYW cvZAbxL612WCBtrUbyBal 3KLvbSJNeLH55 GT28nIQdx3L2nKF5A9GfR SFiwwxpqnuvkTB4BPZvRY AkcK44uWSaMHfwCt6lf1F 6w378BQXfHGEz uG23Cy9jgDcmJBHvuBPQk F6agkncy1gmaixtThNlKX OeRWm0ACb0IOUniJtdZvW jRNI3OpN9YGO8 yGMiaG0upRorhsyqwQ4bQ yc+TUFMRTwvdGQ+PHRkIH U2pJbpHOccDROryU1pJWP kF8j3SzPfGpI6 UYxjX7JwLPZndguaWi84j S6tMnFtMdU5WObhV1Ukcg R0LYSxkDDhZBowFXU9P58 gb8T6GRKqLBBu LML6bAC4mE3kkRnrgjutu GVmdDsgdmVydGljYWwtYW huI122LPPewLoaQiOqcVV ZaBAlGYW4EE23 HR43S7KyMsbiiYAblNQ+P HRhYmxlIHdpZHRoPScxMD OoOkGtjGmbCM5eCw1zQYM yLWNvbGxhcHNl GlYeh5ywZTRhFMwuYM1tt GchN9UyxEW6AQHgz8j0Af 73L88xM8QetDP+PGNvbCB 7dUS3pQ7mYvSs XiB6ACsxT510EcYkmCUvZ yqac7eyu2kkvRz1JrZwOZ AexpQljQryKHY8o2XlXi1 3M37jWMbiQRUz EWPuUHYsNEPtxSpdms7xj G9wIi8+JNQztRS4jJZ6sW 2zYrThRjE8ZHonR932TlB hrLEfFtbiZ86k H7TxpGG+KLCxBsm3AFMka RcvKI0psINnLFvjIq8nWD N2QqLtLmQiZSyzM7FjNIX pbmctcmlnaHQ6 MLUgVYEtxW47Mz2efOjrY w6hAJBlINS7AWZzxPBcN9 QnvD1yVqVjXGAwPNAfT6O opIRwHNsoW310 SEmnKtT2PSHpszNbB5CbJ COccUtiZhV8x5T6Os9BsZ bwuDYcPQ2vGsFfYNz0B0W bDit9BNLskIva DR4ttGHlTBhpHh4pmIkkw CgcWZ5vITVvwfdtp385Gu Nwa1ijCEQwaSOxSXhjUTA 8C25pk9L7TGVw SWEaONW8eGO0vI5yeFvlm jogbGVmdDsgdmVydGljYW yvUPflI977WGNufItzDwG RTin9U0MdKhx3 GRLgqOaaFK4kgVQnLSnsJ o3kaTynoTcrRN6bKXGvos nra646GhHqe5gfOSBmuZC sKDmiFZX3B54g q8S4RBEgTNAoWRD6tNQ7w L3tlEsrmmyszVHrbIfzda YvjHkbXZmxYRugM357VGH nmCjuNa6GUzf6 J9GpVxs8MMTnhXtuTY7pw CJtHWfjHk6fxNslsXtzMB 8lAQEgoixvs028VbVyn1t kIDEwcHQgVGlt KFM9T03zp0Y9SEUyOTTyK HP8gPO0aQ3atDwffccnbW VmdDsgdmVydGljYWwtYWx tB510ASYqzWpb PlBheWVyOjwvdGQ+PC90c f62G3ZqZxghEks5VBCfBN T9vXO9jG0oAYEpBCypo1V 7nSJ3M7IsecRs ci1 (more content not included)... [facility] Consent Formson 01-01-2023 Consent Forms [id number] [facility] Inpatient Patient Summaryon 12-31-2022 [place] [address] Patient Discharge Instructions Name: RY LERNER : 1935 Patient Address: [address] [place] [address] Primary Care Provider: Name: John Nieves MD After you are discharged if you find you have any questions, please, call [phone] ext [phone] to speak to a nurse. Discharge Diagnosis: Carpal tunnel syndrome, right Prescription Information: If you have been given a prescription for narcotics, seek immediate medical attention if you have any difficulty breathing or any sudden status changes such as confusion and sleepiness. If you or anyone you know is experiencing suicidal thoughts, mental health, alcohol and/or drug addiction problems; contact the [facility] 18/02 Crisis Hotline -Text 3MIRA eg 392471. If you received any narcotics, sedation, or [...] business decisions or sign any legal documents [facility] would like to thank you for allowing us to assist you with your healthcare needs. The following includes patient education materials and information regarding your injury/illness. RY LERNER has been given the following list of follow-up instructions, prescriptions, and patient education materials: Follow-up Instructions With: Address: When: MARJ PEREZ [address] [place] [address], [address] [place] [address] [facility] (1) 01/09/2023 11:00 AM Medications [...] 1 cap(s) Oral every day. Lindsey's wort ([place]'s wort oral tablet) 1 tab(s) Oral 2 [...] release capsule) 1 cap(s) Oral every day. [place]'s wort ([place]'s wort oral tablet) 1 tab(s) Oral 2 [...] 3. DO NOT lift heavy objects or hearing therapist forcefully with your hand 4. Change your [...] or concerns, please call the office at [phone] 7. Follow up as scheduled Viruses or Bacteria What?s got you sick? Antibiotics only treat bacterial infections. Viral illnesses cannot be treated with antibiotics. When an antibiotic is not prescribed, ask your healthcare professional for tips on how to relieve symptoms and feel better. Usual Cause Illness Viruses Bacteria Antibiotic Neede (more content not included)... Normal [facility] MAGR Intraoperative Recordon 12-31-2022 MAGR Intraoperative Record MAGR Intra-Op Record Summary Primary Physician: Ward Martinez DO Finalized Date/Time: 12/31/22 11:56:55 Pt. Name: RY LERNER/Sex: 1935 MALE Med Rec #: [id number] Physician: Ward Martinez DO Financial #: [id number] Pt. Type: D Room/Bed: / Admit/Disch: 12/31/22 [...] RN, DO Role Performed Surgeon - Primary Tank Wagon Driver Tank Wagon Driver Time In 12/31/22 09:15:00 12/31/22 09:15:00 12/31/22 09:15:00 Time Out 12/31/22 09:37:00 12/31/22 09:46:00 12/31/22 09:46:00 Procedure Carpal Tunnel Carpal Tunnel Carpal Tunnel Release(Right) Release(Right) Release(Right) Last Modified By: Chelita Borjas RN, RN, Chelita Mc RN 12/31/22 09:49:26 12/31/22 09:49:26 12/31/22 09:49:26 Entry 4 Entry 5 Case Attendee Lavern Vasques Kelly CST [employer] BUSINESS DEVELOPMENT OFFICER Role Performed [employer] Scrub Personnel Time In 12/31/22 09:15:00 12/31/22 [...] By Chelita Borjas RN Scrub 10% Povidone-Iodine Grady Prep Area (Im.270) Elbow and forearm, Prep Area Details Right Hand, Wrist Skin Prep Agent Dry Yes Without Pooling Hair Removal Syntegrity Hair Removal Methods No hair removal performed Outcome Met (O.100) Yes Last Modified By: [place] PERSAUD Chelita Alcides 12/31/22 11:55:12 Pos (more content not included)... [facility] MAGR Preoperative Recordon 0 12-31-2022 MAGR Preoperative Record MAGR Pre-Op Record Summary Primary Physician: Ward Martinez DO Finalized Date/Time: 12/31/22 09:13:14 Pt. Name: YANN RY PERRY /Sex: 1935 MALE Med Rec #: [id number] Physician: Ward Martinez DO Financial #: [id number] Pt. Type: D Room/Bed: / Admit/Disch: 12/31/22 [...] Signed By: Vicky Ponce RN 12/31/22 09:13 [facility] Patient Handouton 12-31-[address] HUDDLESTONS POST OPERATIVE CARPEL TUNNEL INSTRUCTIONS SURGEONS WRITTEN INSTRUTCTIONS: 1. Keep your hand elevated above your elbow for the first 24 hours after surgery 2. Wiggle your fingers frequently while awake 3. DO NOT lift heavy objects or hearing therapist forcefully with your hand 4. Change your [...] or concerns, please call the office at [phone] 7. Follow up as scheduled Normal [facility] CBC AUTO DIFFon 12-25-2022 BASO # 0.0 103/ul Normal 0.0-0.1 [facility] Comment on above: Performed By: #### C BC #### [facility] [address] [address] [address] Rashmi Nolan Basophils/100 WBC (Bld) 0.6 % Normal 0.2-2.0 [facility] Comment on above: Performed By: #### C BC #### [facility] [address] [address] [address] Rashmi Nolan EO # 0.2 103/ul Normal 0.0-0.7 [facility] Comment on above: Performed By: #### C BC #### [facility] [address] [address] [address] Rashmi Nolan Eosinophils/100 WBC (Bld) 6.9 % Normal 0.9-7.0 [facility] Comment on above: Performed By: #### C BC #### [facility] [address] [address] [address] Rashmi Nolan Erythrocyte distribution width (RBC) [Ratio] 14.0 % Normal 11.0-15.0 [facility] Comment on above: Performed By: #### C BC #### [facility] [address] [address] [address] Rashmi Nolan Hematocrit (Bld) [Volume fraction] 29.8 % Critically low 42.0-54.0 [facility] Comment on above: Performed By: #### C BC #### [facility] [address] [address] [address] Rashmi Nolan Hemoglobin (Bld) [Mass/Vol] 9.8 g/dL Critically low 14.0-18.0 [facility] Comment on above: Performed By: #### C BC #### [facility] [address] [address] [address] Rashmi Nolan IG # 0.02 10e3/ul Normal 0.00-0.03 [facility] Comment on above: Performed By: #### C BC #### [facility] [address] [address] [address] Rashmi Nolan IG % 0.6 % Critically high 0.0-0.5 [facility] Comment on above: Performed By: #### C BC #### [facility] [address] [address] [address] Rashmi Nolan LYMPH # 0.8 103/ul Critically low 1.2-3.8 [facility] Comment on above: Performed By: #### C BC #### [facility] [address] [address] [address] Rashmi Nolan Lymphocytes/100 WBC (Bld) 25.1 % Normal 20.5-60.0 [facility] Comment on above: Performed By: #### C BC #### [facility] [address] [address] [address] Rashmi Nolan MANUAL DIFF REQ NO Normal [facility] Comment on above: Performed By: #### C BC #### [facility] [address] [address] [address] Rashmi Nolan MCH (RBC) [Entitic mass] 33.0 pg Normal 25.9-34.0 [facility] Comment on above: Performed By: #### C BC #### [facility] [address] [address] [address] Rashmi Nolan MCHC (RBC) [Mass/Vol] 32.9 g/dL Normal 29.9-35.2 [facility] Comment on above: Performed By: #### C BC #### [facility] [address] [address] [address] Rashmi Nolan MCV (RBC) [Entitic vol] 100.3 fL Critically high 80.0-94.0 [facility] Comment on above: Performed By: #### C BC #### [facility] [address] [address] [address] Rashmi Nolan MONO # 0.3 103/ul Normal 0.3-0.8 [facility] Comment on above: Performed By: #### C BC #### [facility] [address] [address] [address] Rashmi Nolan Monocytes/100 WBC (Bld) 9.6 % Normal 1.7-12.0 [facility] Comment on above: Performed By: #### C BC #### [facility] [address] [place] [address] Dr. Rashmi Nolan NEUT # 1.9 103/ul Normal 1.4-6.5 [facility] Comment on above: Performed By: #### C BC #### [facility] [address] [place] [address] Dr. Rashmi Nolan Neutrophils/100 WBC (Bld) 57.2 % Normal 43.0-75.0 [facility] Comment on above: Performed By: #### C BC #### [facility] [address] [place] [address] Dr. Rashmi Nolan Platelet mean volume (Bld) [Entitic vol] 10.5 fL Normal 9.5-13.5 [facility] Comment on above: Performed By: #### C BC #### [facility] [address] [place] [address] Dr. Rashmi Nolan PLT 129 103/ul Critically low 150-450 [facility] Comment on above: Performed By: #### C BC #### [facility] [address] [address] [address] Rashmi Nolan RBC 2.97 106/ul Critically low 4.70-6.10 [facility] Comment on above: Performed By: #### C BC #### [facility] [address] [address] [address] Rashmi Nolan WBC 3.3 103/ul Critically low 4.0-11.0 [facility] Comment on above: Performed By: #### C BC #### [facility] [address] [address] [address] Rashmi Nolan PROTIMEon 12-25-2022 INR Coag (PPP) [Relative time] 1.03 {INR} Normal [facility] Comment on above: Performed By: #### B MP #### [facility] [address] [place] [address] Dr. Rashmi Nolan INR GUIDELINES SEE BELOW Normal [facility] Comment on above: Result Comment: ENOC RED INR: 2.0 - 3.0 CONDITIONS NOT LISTED BELOW 2.5 - 3.5 FOR PROSTHETIC HEART VALVE REPLACEMENT 2.5 - 3.5 RECURRENT THROMBOSIS Performed By: #### B MP #### [facility] [address] [place] [address] Dr. Rashmi Nolan PT Coag (PPP) [Time] 10.9 s Normal 9.0-11.6 [facility] Comment on above: Performed By: #### B MP #### [facility] [address] [place] [address] Dr. Rashmi Nolan PTTon 12-25-2022 aPTT Coag (Bld) [Time] 25.6 s Normal 22.3-36.2 [facility] Comment on above: Performed By: #### C BC #### [facility] [address] [place] [address] Dr. Rashmi Nolan Coding Summaryon 12-19-2022 Coding Summary HTMLBase 64 VmngozuiISd4fIt+PGhlY WQ+HI4IUETmB58xpRKqtP 6fK5TPGZiHUhflOZECXSm CBvMfqaSkTQ1zcRUiHJPa IC8+LD5hLKYvEatqrQBqj 9L3qOS8E63lwr1eRVbafQ J2KQObPqJsergvb5apmZj 6IDcuNmluOyBt URZzhX55NXD9dG19Ax45u HBvsOMsj7pzzCn6OyOxPD YjTDG2mImnCKjde5VsFEI eI68keMTzg8U8 MAUtaSezdYRuSsCgqKC0b G5xGYuzgcgww4awsvapEt s2ix16aHJid9S2oNJ5X0W mdbY5JQDhqBOj VyvgbRIGtS2tolbfy2rfy kjaCmDvYISfFCn4KMd6IU CefGsrMrMlGA40MZA2HJY khfZcN6BlFMRs wSgkCcU2s0Z2Yu0ZI1SSZ vliD4QSAWCZINxjjNZ+PC 82af71C3LkUkveWpt3MIQ mYHQ2dOZ3tV7p VRCqUDgxo1E4xRQ8R3Eos dHgna9qp0gdGYQtLGjsA1 6vzREpu4J5UPEffPL3YPQ kdMkwXgNrnI59 Oyc+XZXjwWpim9XvOcwao 0qjl3vaeMe7UeitBBPlvv LkoNioXMR1c9IjRk4lUDF mcQQ3yVF6wI7y DtPzCxR5LHeoE639FhWgq FDaTfeyZ72xM9RvrRN+PH DwXdc0TLQvlLufWH2nE5B hZGRpbmctbGVm vWucEV7uLDZjpxirEJLyz K2iQGSlD1w2XtXqUlQ3TH jgY6FxZCCilrqgHx14iC0 iLrLxNoS1SZuk R6EzvxK2QEChzDIsQTkgX NM8F26ye4Z2NJTeBQJhNC N2dZV1tR5hiKqisatboVA mdDsgdmVydGlj MAfwQFajM666QXInfVbfG kNvZGluZyBEYXRlOiAgMD UvMjQvMjAyMzwvdGQ+PHR sCMO7iOcaLPVc fLKtRRfdIy1hfAftbYyaW V1qOVDsilutPTFxmK6fAW GzxENqzDjhIQ7cGVAswga it677NiSbZXY5 MBOypMFgF3TtqZ8tQfHiG GMePPQsH4HtyUNqDBwwD7 24JRhnImD6ZQEgjcQyB6O sLWFsaWduOiB0 g8M6Uf6Vz0UaneadV5Sfa LMlUyVfDunbXYb1N1KmBl wvdHI+ND82LZXrNL92TPy 4RYG9rXyoHVis YBGhI8LodS3kBsVvMKGuN GRkOyc+PHRhYmxlIHdpZH RoPScxMDAlJyBzdHlsZT0 dOl9aHTTbEMKr cGwokZPhTgJdz9wwCFBsO DepJE8rzQkeY8NlwDQ9NN Iku5v4Cv78A13tX1YmsRG +UHTuwVZ5mCP7 iQ5yVnYdXbN9RNukQ291P tSxlSDvJzllv1xzx8eewF f5HaH6BRNyzfBdkTgrUMZ 6f2HeJh22A58l IHdpZHRoPSIxNSUiIHZhb Vuwwk9qnC7cBw4+PGNvbC K0eHJ9aY2oFdGaSgW6YYe kI104ErMhqLYp Aeaqt5xtj5mqgVj0RjIyX XUgyuQbmYdvOSQ8v4SiSx 15Y6JusXtlf0UsUaw5ez2 8zSSrh2L1hYB7 E5GdHJCiwrlxrYQycHsuC Z6jLUCxjlmdKMRqgW7eFF SqJ4a8JrVrVoW2XGmuB5C gyqR1DUEieJPx SLVryTVYvY6gvgjcx7muf ezrGgUcMRAtXTc7SVg7WI DjyVcrRxAdJDK9AaS5TFF 4zPKmtI5bcCzz krpdkK9sNgr+VIF7aOAok AYEVU1mAtbfeQG+PHRkIH E2qXlpWHpaAPWryE9zAMW dN3q9QsBbHwO5 BEvbE3IzdxV2SBLwhEEeR LEwzWTVcF1yhdgfj5vhmp tbZcRsLUUcEZj8MTt1OUF saWduOiBsZWZ0 JvG3SKA3qJDlyE5efNqma hkdmM0hTqc+QmlydGggRG S5XSv4T5IrHjs0PPCpbFs xNZ1ypCEvKVeh Rn1xhIoumDguQG8oZYDrm obzq886JpRfi2qhUVUalL SvPLwzDUG2M91mc2K0XIP tTPZmMRE8sAM7 zZ4onBawopollYGqwLlyh sZzhEpnLHkiBDcvU243BK CzyXciXaWbKPk3T4WbFru 7HPLqsYihNV3p yTIoLCxxIb2ntVplcPmcY M9mIPGokfwfg891FqPen2 luBITnyUCoKNrrDHB0X18 wl5R7HCZwXEDz ADP3uTB8tA2xtDyuujpqw GVmdDsgdmVydGljYWwtYW vcE678GIOeiBmaYxQspRl 6B9VeGzk0KCHk uOjvPA1jvYPvIFonNi8jy LxxpJqiOR9zSEKvscqnk0 99KqLvi8ijHZFvzQGsVUl pJHU1V92lo3H5 UWLzAVGxILZ7wYA8uB7bi GlnbjogbGVmdDsgdmVydG iqUQrvLMwgB330DPHioWc nPlBhdGllbnQg QVsoXAg4Y5PiLsqzfXL+P H20QMNfEJ40uBUgsPLac2 wjgYm2EyUvJFXrDFQ0yTr kXJgur3FzPOFu Y40zeIRji2A1WWRxmNfis LApEyVvrCX4iJ8rNEtzes yaw2icouerFqcbe8hwju3 2jD07I25yGNee ZHRoPSIzMCUiIHZhbGlnb w9clC1zHx6+AXZbzBW1hY F3sP6dKTYeAuZ5EGlaW63 9InRvcCIvPjxj q8yvy7ppeFv1DuZ2YUZou lOqiYnlREA5k2WlTm76S5 9sIHdpZHRoPSIyMCUiIHZ wjLebcx3kpK6h Ii8+JDSqnAZ9sDB7yU2mN wDeRkP2VQtcF420SgNobG WbDyiiQ42tN6MeoSG+PHR aHby1WFJyqSer HR3gnBQpIVjgUv5sJDA4R uJtOeZwOYugW4QdEGMqjy ehfrnknKU0PUGqVIJgdT9 6Ze5fzQfxDRUu gNYGoD0dyghvr9rhrtseL oGpFGZyNKx3CJc5JEQcwY jbSaRvJAW8PbD1EOF4gCS snN2ybStjldfx oV8bX6OlFIIgldfeUz77e Y5nTzEgIzF3TTkoOxt+TU pANJJEHYDDZLTHNK6HDMd TG92OME90RX07 mRCha5I2yER2A5XhASImr gzlraaofGU1PMFuHHSyrI 69mVAwPLqgZt4hd3I8x38 8QODtJVZllF69 Vm2lvXhcXQJnkQDUuC4lc mzwc5juiplmQrCcVGTrSF d9JSv0UBIeqLwdXpOnOWY 5RsW7AAE8bOGs jV7noGqxfnuqkA5mOof+M DMvMDQvMTkzNTwvdGQ+PH GaVXN4iIaeKKjhTHLjgM3 lPHMpZ6h8DqTj GoB8DWnzH8AoZRKkwdtuT u07tO2vNwKnWfS5RDtgG7 QghnA3HOHyjNXrDJvwPBR 5E44oo3I3GNGq NZHjUQF2xVC0qW9oeBsai jogbGVmdDsgdmVydGljYW hkVIkdR536ZHBzdUyqJot 5OHxvHCMhTE31 UC26cPNnm2H3iEH7E8AbB NSrocrietljxSN5WSRnJK JmlT31eAQzSMoeWo4nf0K 7b780YBFwTTFs tO00Qh1mcSvgMRXkdYDQh G1debrcq0eblkliMfPtJM XrRFv3IOe0RDVngLtaUxK gMBD4AdF7CSZ7 dUZjoK6mnUdykdepmU1eT yc+TUFMRTwvdGQ+PHRkIH L6aSutRRsqLKFvnJ9zIXU aY9p5NsBdHfD6 ELnvJ2RfYBXruiyzDo59c M1qPuBgXnS1JJyuQ4Ujrs I2ZUEvrBHlQNteTVZ7P30 ty7N3BHGdQVQi TZJ0oFW6nP2feKasvamso GVmdDsgdmVydGljYWwtYW vrM402RSSkvAwsSwXooLC FtOKiTBS4QN68 WA09F1KkAlmvqVHszPH+P HRhYmxlIHdpZHRoPScxMD PjZpUgcZnqWX6gKg3xPFD yLWNvbGxhcHNl NaSik1ktJBYfKMrlEH6ov IqdB2TihFG5UNZic2a7Uu 50I31lO1WcxGV+PGNvbCB 1gKX9kK5oHjMs OlJ0BHwhX896SlWakCBnN cifs5kzv3xkvAu6XuMrWO XyroSdhMlfCMG5v1VhOd3 9K34wXJoaAVDe JTNbKZTkCXPnsUazey8lo G9wIi8+OIKciLV3aGG9pG 5bMqHoYxV2PIvbG158FoC epCRdYuyyR36f B1MyfPG+HWAjVvc1MPHmb MipBV0hmMBnEOcrHu2sDH M0EzQsZiMfHIjpL3XuALI pbmctcmlnaHQ6 OQZzGGTwiV21Lp8reJyiY d0bLPFhLIA4VCTbyAYwN2 NgeO3aBhKoISJtYBHzL3O kbQKeAPzzC762 BUmhRzR4IMQfjeVqE3MkH EWpzNyrAyL6p2X0Ce1NhD inrNKnLY0cCsLbXKu8X9X sYcn9MJUaoDns GY5khZKnCPdxPw5ptZjyn MxsLJ0kCNYazxhhi053Jl Udu2yuOESnhVGzKXzoGIM 3R45bq4L6TYVc PJVmLEY9qHA9cO2fpNvxz jogbGVmdDsgdmVydGljYW loXMzlS747BCLgxAjsZxT VYgk0Z1TcTbv9 VVPyyLmlFJ0feNQyMOmwT h7hcAunpVbbJW9dZCAybx kqy838WeSor3onTJFnwJN wEQoqCEQ2T14w p6H7YDToVMLsMLT3oFU7e N0daDfwlbhasIQxkNybvs VhvFxsKSfuVOnlX280EXT iaSdoYt2VXzf3 N0XqGyk7RQTmqUbxVA4yt TGeLTwhMz5svUonmBlwHP 3qPHWeuwqqk920XoSoh0p kIDEwcHQgVGlt XKA6V95bd9V9HLWaHLNuV RP4bSU6iD3fkJcengignU VmdDsgdmVydGljYWwtYWx tI658NXRmiEjn PlBheWVyOjwvdGQ+PC90c v96I8KrDqunRyr5OOWiOP P6kGZ9sX1rNSXcGKqxz2L 6jOY6F4HxsrUz ci1 (more content not included)... Normal [facility] CBC AUTO DIFFon 12-14-2022 BASO # 0.0 103/ul Normal 0.0-0.1 [facility] Comment on above: Performed By: #### C BC #### [facility] [address] [address] [address] Rashmi Nolan Basophils/100 WBC (Bld) 0.6 % Normal 0.2-2.0 [facility] Comment on above: Performed By: #### C BC #### [facility] [address] [address] [address] Rashmi Nolan EO # 0.4 103/ul Normal 0.0-0.7 [facility] Comment on above: Performed By: #### C BC #### [facility] [address] [address] [address] Rashmi Nolan Eosinophils/100 WBC (Bld) 11.9 % Critically high 0.9-7.0 [facility] Comment on above: Performed By: #### C BC #### [facility] [address] [place] [address] Dr. Rashmi Nolan Erythrocyte distribution width (RBC) [Ratio] 15.2 % Critically high 11.0-15.0 [facility] Comment on above: Performed By: #### C BC #### [facility] [address] [place] [address] Dr. Rashmi Nolan Hematocrit (Bld) [Volume fraction] 26.3 % Critically low 42.0-54.0 [facility] Comment on above: Performed By: #### C BC #### [facility] [address] [place] [address] Dr. Rashmi Nolan Hemoglobin (Bld) [Mass/Vol] 8.9 g/dL Critically low 14.0-18.0 [facility] Comment on above: Performed By: #### C BC #### [facility] [address] [place] [address] Dr. Rashmi Nolan IG # 0.01 10e3/ul Normal 0.00-0.03 [facility] Comment on above: Performed By: #### C BC #### [facility] [address] [address] [address] Rashmi Nolan IG % 0.3 % Normal 0.0-0.5 [facility] Comment on above: Performed By: #### C BC #### [facility] [address] [address] [address] Rashmi Nolan LYMPH # 0.8 103/ul Critically low 1.2-3.8 [facility] Comment on above: Performed By: #### C BC #### [facility] [address] [place] [address] Dr. Rashmi Nolan Lymphocytes/100 WBC (Bld) 25.1 % Normal 20.5-60.0 [facility] Comment on above: Performed By: #### C BC #### [facility] [address] [place] [address] Dr. Rashmi Nolan MANUAL DIFF REQ NO Normal [facility] Comment on above: Performed By: #### C BC #### [facility] [address] [place] [address] Dr. Rashmi Nolan MCH (RBC) [Entitic mass] 33.0 pg Normal 25.9-34.0 [facility] Comment on above: Performed By: #### C BC #### [facility] [address] [place] [address] Dr. Rashmi Nolan MCHC (RBC) [Mass/Vol] 33.8 g/dL Normal 29.9-35.2 [facility] Comment on above: Performed By: #### C BC #### [facility] [address] [place] [address] Dr. Rashmi Nolan MCV (RBC) [Entitic vol] 97.4 fL Critically high 80.0-94.0 [facility] Comment on above: Performed By: #### C BC #### [facility] [address] [place] [address] Dr. Rashmi Nolan MONO # 0.3 103/ul Normal 0.3-0.8 [facility] Comment on above: Performed By: #### C BC #### [facility] [address] [place] [address] Dr. Rashmi Nolan Monocytes/100 WBC (Bld) 9.0 % Normal 1.7-12.0 [facility] Comment on above: Performed By: #### C BC #### [facility] [address] [address] [address] Rashmi Nolan NEUT # 1.7 103/ul Normal 1.4-6.5 [facility] Comment on above: Performed By: #### C BC #### [facility] [address] [address] [address] Rashmi Nolan Neutrophils/100 WBC (Bld) 53.1 % Normal 43.0-75.0 [facility] Comment on above: Performed By: #### C BC #### [facility] [address] [address] [address] Rashmi Nolan Platelet mean volume (Bld) [Entitic vol] 10.2 fL Normal 9.5-13.5 [facility] Comment on above: Performed By: #### C BC #### [facility] [address] [address] [address] Rashmi Nolan PLT 139 103/ul Critically low 150-450 [facility] Comment on above: Performed By: #### C BC #### [facility] [address] [address] [address] Rashmi Nolan RBC 2.70 106/ul Critically low 4.70-6.10 [facility] Comment on above: Performed By: #### C BC #### [facility] [address] [address] [address] Rashmi Nolan WBC 3.1 103/ul Critically low 4.0-11.0 [facility] Comment on above: Performed By: #### C BC #### [facility] [address] [place] [address] Dr. Rashmi Nolan MAGR Intraoperative Recordon 12-14-2022 MAGR Intraoperative Record MAGR Intra-Op Record Summary Primary Physician: Ward Martinez DO Finalized Date/Time: 12/14/22 09:30:19 Pt. Name: RY LERNER/Sex: 1935 MALE Med Rec #: [id number] Physician: Ward Martinez DO Financial #: [id number] Pt. Type: D Room/Bed: / Admit/Disch: 12/10/22 [...] Andrew DO Role Performed Surgeon - Primary Tank Wagon Driver Tank Wagon Driver Time In 12/10/22 15:05:00 12/10/22 14:54:00 12/10/22 14:54:00 Time Out 12/10/22 15:30:00 12/10/22 15:30:00 12/10/22 15:30:00 Procedure Carpal Tunnel Carpal Tunnel Carpal Tunnel Release(Left) Release(Left) Release(Left) Last Modified By: Maile Palmer RN, Barbara RN Long, Barbara RN 12/10/22 15:29:30 12/10/22 15:29:30 12/10/22 15:29:30 Entry 4 Entry 5 Case Attendee Macie Licea CST, CST, Brandi Role Performed [employer] Scrub Personnel Time In 12/10/22 14:54:00 12/10/22 [...] Procedure Yes Primary Surgeon Ward Martinez Modifiers Left Riki DO Surgeon Comment LEFT CARPAL [...] By Maile Palmer RN Scrub 10% Povidone-Iodine Grady Prep Area (Im.270) Arm lower Prep Area [...] injury Counts (more content not included)... Normal [facility] PROF CHEM 8 (BAS METB)on Anion gap [Moles/Vol] 12.6 mmol/L Normal [facility] Comment on above: Performed By: #### B MP #### [facility] [address] [address] [address] Rashmi Nolan Calcium [Mass/Vol] 9.7 mg/dL Normal 8.5-10.1 [facility] Comment on above: Performed By: #### B MP #### [facility] [address] [address] [address] Rashmi Nolan Chloride [Moles/Vol] 108 mmol/L Critically high 98-107 [facility] Comment on above: Performed By: #### B MP #### [facility] [address] [address] [address] Rashmi Nolan CO2 [Moles/Vol] 24.5 mmol/L Normal 21.0-32.0 [facility] Comment on above: Performed By: #### B MP #### [facility] [address] [address] [address] Rashmi Nolan Creatinine [Mass/Vol] 1.68 mg/dL Critically high 0.70-1.30 [facility] Comment on above: Performed By: #### B MP #### [facility] [address] [address] [address] Rashmi Nolan EGFR-AF SAMMARINESE 47 mL/min/1.73m2 Critically low >=60 [facility] Comment on above: Performed By: #### B MP #### [facility] [address] [address] [address] Rashmi Nolan EGFR-NON AF SAMMARINESE 39 mL/min/1.73m2 Critically low >=60 [facility] Comment on above: Performed By: #### B MP #### [facility] [address] [address] [address] Rashmi Nolan Glucose [Mass/Vol] 91 mg/dL Normal 74-106 [facility] Comment on above: Performed By: #### B MP #### [facility] [address] [address] [address] Rashmi Nolan Potassium [Moles/Vol] 5.1 mmol/L Normal 3.5-5.1 [facility] Comment on above: Performed By: #### B MP #### [facility] [address] [address] [address] Rashmi Nolan Sodium [Moles/Vol] 140 mmol/L Normal 136-145 [facility] Comment on above: Performed By: #### B MP #### [facility] [address] [address] [address] Rashmi Nolan Urea nitrogen [Mass/Vol] 27.0 mg/dL Critically high 7.0-18.0 [facility] Comment on above: Performed By: #### B MP #### [facility] [address] [address] [address] Rashmi Nolan Urea nitrogen/Creatinine [Mass ratio] 16.1 mg/mg Normal [facility] Comment on above: Performed By: #### B MP #### [facility] [address] [address] [address] Rashmi Nolan CBC AUTO DIFFon 12-13-2022 BASO # 0.0 103/ul Normal 0.0-0.1 [facility] Comment on above: Performed By: #### C BC #### [facility] [address] [address] [address] Rashmi Nolan Basophils/100 WBC (Bld) 0.6 % Normal 0.2-2.0 [facility] Comment on above: Performed By: #### C BC #### [facility] [address] [place] [address] Dr. Rashmi Nolan EO # 0.4 103/ul Normal 0.0-0.7 [facility] Comment on above: Performed By: #### C BC #### [facility] [address] [place] [address] Dr. Rashmi Nolan Eosinophils/100 WBC (Bld) 10.3 % Critically high 0.9-7.0 [facility] Comment on above: Performed By: #### C BC #### [facility] [address] [place] [address] Dr. Rashmi Nolan Erythrocyte distribution width (RBC) [Ratio] 15.8 % Critically high 11.0-15.0 [facility] Comment on above: Performed By: #### C BC #### [facility] [address] [place] [address] Dr. Rashmi Nolan Hematocrit (Bld) [Volume fraction] 25.7 % Critically low 42.0-54.0 [facility] Comment on above: Performed By: #### C BC #### [facility] [address] [place] [address] Dr. Rashmi Nolan Hemoglobin (Bld) [Mass/Vol] 8.5 g/dL Critically low 14.0-18.0 [facility] Comment on above: Performed By: #### C BC #### [facility] [address] [place] [address] Dr. Rashmi Nolan IG # 0.00 10e3/ul Normal 0.00-0.03 [facility] Comment on above: Performed By: #### C BC #### [facility] [address] [place] [address] Dr. Rashmi Nolan IG % 0.0 % Normal 0.0-0.5 [facility] Comment on above: Performed By: #### C BC #### [facility] [address] [place] [address] Dr. Rashmi Nolan LYMPH # 0.8 103/ul Critically low 1.2-3.8 [facility] Comment on above: Performed By: #### C BC #### [facility] [address] [place] [address] Dr. Rashmi Nolan Lymphocytes/100 WBC (Bld) 23.5 % Normal 20.5-60.0 [facility] Comment on above: Performed By: #### C BC #### [facility] [address] [place] [address] Dr. Rashmi Nolan MANUAL DIFF REQ NO Normal [facility] Comment on above: Performed By: #### C BC #### [facility] [address] [place] [address] Dr. Rashmi Nolan MCH (RBC) [Entitic mass] 32.9 pg Normal 25.9-34.0 [facility] Comment on above: Performed By: #### C BC #### [facility] [address] [place] [address] Dr. Rashmi Nolan MCHC (RBC) [Mass/Vol] 33.1 g/dL Normal 29.9-35.2 [facility] Comment on above: Performed By: #### C BC #### [facility] [address] [place] [address] Dr. Rashmi Nolan MCV (RBC) [Entitic vol] 99.6 fL Critically high 80.0-94.0 [facility] Comment on above: Performed By: #### C BC #### [facility] [address] [place] [address] Dr. Rashmi Nolan MONO # 0.3 103/ul Normal 0.3-0.8 [facility] Comment on above: Performed By: #### C BC #### [facility] [address] [place] [address] Dr. Rashmi Nolan Monocytes/100 WBC (Bld) 8.9 % Normal 1.7-12.0 [facility] Comment on above: Performed By: #### C BC #### [facility] [address] [place] [address] Dr. Rashmi Nolan NEUT # 2.0 103/ul Normal 1.4-6.5 [facility] Comment on above: Performed By: #### C BC #### [facility] [address] [address] [address] Rashmi Nolan Neutrophils/100 WBC (Bld) 56.7 % Normal 43.0-75.0 [facility] Comment on above: Performed By: #### C BC #### [facility] [address] [address] [address] Rashmi Nolan Platelet mean volume (Bld) [Entitic vol] 10.5 fL Normal 9.5-13.5 [facility] Comment on above: Performed By: #### C BC #### [facility] [address] [address] [address] Rashmi Nolan PLT 134 103/ul Critically low 150-450 [facility] Comment on above: Performed By: #### C BC #### [facility] [address] [address] [address] Rashmi Nolan RBC 2.58 106/ul Critically low 4.70-6.10 [facility] Comment on above: Performed By: #### C BC #### [facility] [address] [address] [address] Rashmi Nolan WBC 3.6 103/ul Critically low 4.0-11.0 [facility] Comment on above: Performed By: #### C BC #### [facility] [address] [address] [address] Rashmi Nolan PROF CHEM 8 (BAS METB)on Anion gap [Moles/Vol] 11.7 mmol/L Normal [facility] Comment on above: Performed By: #### C BC #### [facility] [address] [address] [address] Rashmi Nolan Calcium [Mass/Vol] 9.5 mg/dL Normal 8.5-10.1 [facility] Comment on above: Performed By: #### C BC #### [facility] [address] [address] [address] Rashmi Nolan Chloride [Moles/Vol] 110 mmol/L Critically high 98-107 [facility] Comment on above: Performed By: #### C BC #### [facility] [address] [address] [address] Rashmi Nolan CO2 [Moles/Vol] 25.1 mmol/L Normal 21.0-32.0 [facility] Comment on above: Performed By: #### C BC #### [facility] [address] [address] [address] Rashmi Nolan Creatinine [Mass/Vol] 1.69 mg/dL Critically high 0.70-1.30 [facility] Comment on above: Performed By: #### C BC #### [facility] [address] [address] [address] Rashmi Nolan EGFR-AF SAMMARINESE 47 mL/min/1.73m2 Critically low >=60 [facility] Comment on above: Performed By: #### C BC #### [facility] [address] [address] [address] Rashmi Nolan EGFR-NON AF SAMMARINESE 38 mL/min/1.73m2 Critically low >=60 [facility] Comment on above: Performed By: #### C BC #### [facility] [address] [address] [address] Rashmi Nolan Glucose [Mass/Vol] 93 mg/dL Normal 74-106 [facility] Comment on above: Performed By: #### C BC #### [facility] [address] [address] [address] Rashmi Nolan Potassium [Moles/Vol] 5.8 mmol/L Critically high 3.5-5.1 [facility] Comment on above: Performed By: #### C BC #### [facility] [address] [address] [address] Rashmi Nolan Sodium [Moles/Vol] 141 mmol/L Normal 136-[address] [facility] Comment on above: Performed By: #### C BC #### [facility] [address] [address] [address] Rashmi Nolan Urea nitrogen [Mass/Vol] 35.0 mg/dL Critically high 7.0-18.0 [facility] Comment on above: Performed By: #### C BC #### [facility] [address] [place] [address] Dr. Rashmi Nolan Urea nitrogen/Creatinine [Mass ratio] 20.7 mg/mg Normal [facility] Comment on above: Performed By: #### C BC #### [facility] [address] [place] [address] Dr. Rashmi Nolan ABO RH RETYPEon 12-12-2022 ABO and Rh group Nom (Bld) DONE Normal [facility] Comment on above: Performed By: #### C BC #### [facility] [address] [place] [address] Dr. Rashmi Nolan CBC AUTO DIFFon 12-12-2022 BASO # 0.0 103/ul Normal 0.0-0.1 [facility] Comment on above: Performed By: #### C BC #### [facility] [address] [place] [address] Dr. Rashmi Nolan Basophils/100 WBC (Bld) 0.6 % Normal 0.2-2.0 [facility] Comment on above: Performed By: #### C BC #### [facility] [address] [place] [address] Dr. Rashmi Nolan EO # 0.3 103/ul Normal 0.0-0.7 [facility] Comment on above: Performed By: #### C BC #### [facility] [address] [place] [address] Dr. Rashmi Nolan Eosinophils/100 WBC (Bld) 7.6 % Critically high 0.9-7.0 [facility] Comment on above: Performed By: #### C BC #### [facility] [address] [place] [address] Dr. Rashmi Nolan Erythrocyte distribution width (RBC) [Ratio] 16.4 % Critically high 11.0-15.0 [facility] Comment on above: Performed By: #### C BC #### [facility] [address] [place] [address] Dr. Rashmi Nolan Hematocrit (Bld) [Volume fraction] 27.2 % Critically low 42.0-54.0 [facility] Comment on above: Performed By: #### C BC #### [facility] [address] [address] [address] Rashmi Nolan Hemoglobin (Bld) [Mass/Vol] 9.1 g/dL Critically low 14.0-18.0 [facility] Comment on above: Performed By: #### C BC #### [facility] [address] [address] [address] Rashmi Nolan IG # 0.01 10e3/ul Normal 0.00-0.03 [facility] Comment on above: Performed By: #### C BC #### [facility] [address] [address] [address] Rashmi Nolan IG % 0.3 % Normal 0.0-0.5 [facility] Comment on above: Performed By: #### C BC #### [facility] [address] [place] [address] Dr. Rashmi Nolan LYMPH # 0.9 103/ul Critically low 1.2-3.8 [facility] Comment on above: Performed By: #### C BC #### [facility] [address] [address] [address] Rashmi Nolan Lymphocytes/100 WBC (Bld) 25.3 % Normal 20.5-60.0 [facility] Comment on above: Performed By: #### C BC #### [facility] [address] [address] [address] Rashmi Nolan MANUAL DIFF REQ NO Normal [facility] Comment on above: Performed By: #### C BC #### [facility] [address] [address] [address] Rashmi Nolan MCH (RBC) [Entitic mass] 33.0 pg Normal 25.9-34.0 [facility] Comment on above: Performed By: #### C BC #### [facility] [address] [address] [address] Rashmi Nolan MCHC (RBC) [Mass/Vol] 33.5 g/dL Normal 29.9-35.2 [facility] Comment on above: Performed By: #### C BC #### [facility] [address] [address] [address] Rashmi Nolan MCV (RBC) [Entitic vol] 98.6 fL Critically high 80.0-94.0 [facility] Comment on above: Performed By: #### C BC #### [facility] [address] [address] [address] Rashmi Nolan MONO # 0.3 103/ul Normal 0.3-0.8 [facility] Comment on above: Performed By: #### C BC #### [facility] [address] [address] [address] Rashmi Nolan Monocytes/100 WBC (Bld) 8.1 % Normal 1.7-12.0 [facility] Comment on above: Performed By: #### C BC #### [facility] [address] [place] [address] Dr. Rashmi Nolan NEUT # 2.0 103/ul Normal 1.4-6.5 [facility] Comment on above: Performed By: #### C BC #### [facility] [address] [place] [address] Dr. Rashmi Nolan Neutrophils/100 WBC (Bld) 58.1 % Normal 43.0-75.0 [facility] Comment on above: Performed By: #### C BC #### [facility] [address] [place] [address] Dr. Rashmi Nolan Platelet mean volume (Bld) [Entitic vol] 10.0 fL Normal 9.5-13.5 [facility] Comment on above: Performed By: #### C BC #### [facility] [address] [place] [address] Dr. Rashmi Nolan PLT 147 103/ul Critically low 150-450 [facility] Comment on above: Performed By: #### C BC #### [facility] [address] [address] [address] Rashmi Nolan RBC 2.76 106/ul Critically low 4.70-6.10 [facility] Comment on above: Performed By: #### C BC #### [facility] [address] [address] [address] Rashmi Nolan WBC 3.4 103/ul Critically low 4.0-11.0 [facility] Comment on above: Performed By: #### C BC #### [facility] [id number] Rashmi Nolan BASO # 0.0 103/ul Normal 0.0-0.1 [facility] Comment on above: Performed By: #### C BC #### [facility] [address] [address] [address] Rashmi Nolan Basophils/100 WBC (Bld) 0.6 % Normal 0.2-2.0 [facility] Comment on above: Performed By: #### C BC #### [facility] [address] [address] [address] Rashmi Nolan EO # 0.2 103/ul Normal 0.0-0.7 [facility] Comment on above: Performed By: #### C BC #### [facility] [address] [place] [address] Dr. Rashmi Nolan Eosinophils/100 WBC (Bld) 6.6 % Normal 0.9-7.0 [facility] Comment on above: Performed By: #### C BC #### [facility] [address] [place] [address] Dr. Rashmi Nolan Erythrocyte distribution width (RBC) [Ratio] 16.4 % Critically high 11.0-15.0 [facility] Comment on above: Performed By: #### C BC #### [facility] [address] [place] [address] Dr. Rashmi Nolan Hematocrit (Bld) [Volume fraction] 26.1 % Critically low 42.0-54.0 [facility] Comment on above: Performed By: #### C BC #### [facility] [address] [place] [address] Dr. Rashmi Nolan Hemoglobin (Bld) [Mass/Vol] 8.5 g/dL Critically low 14.0-18.0 [facility] Comment on above: Result Comment: rcvd . blood Performed By: #### C BC #### [facility] [address] [place] [address] Dr. Rashmi Nolan IG # 0.01 10e3/ul Normal 0.00-0.03 [facility] Comment on above: Performed By: #### C BC #### [facility] [address] [place] [address] Dr. Rashim Nolan IG % 0.3 % Normal 0.0-0.5 [facility] Comment on above: Performed By: #### C BC #### [facility] [address] [place] [address] Dr. Rashmi Nolan LYMPH # 0.7 103/ul Critically low 1.2-3.8 [facility] Comment on above: Performed By: #### C BC #### [facility] [address] [place] [address] Dr. Rashmi Nolan Lymphocytes/100 WBC (Bld) 20.2 % Critically low 20.5-60.0 [facility] Comment on above: Performed By: #### C BC #### [facility] [address] [place] [address] Dr. Rashmi Nolan MANUAL DIFF REQ NO Normal [facility] Comment on above: Performed By: #### C BC #### [facility] [address] [place] [address] Dr. Rashmi Nolan MCH (RBC) [Entitic mass] 32.7 pg Normal 25.9-34.0 [facility] Comment on above: Performed By: #### C BC #### [facility] [address] [place] [address] Dr. Rashmi Nolan MCHC (RBC) [Mass/Vol] 32.6 g/dL Normal 29.9-35.2 [facility] Comment on above: Performed By: #### C BC #### [facility] [address] [place] [address] Dr. Rashmi Nolan MCV (RBC) [Entitic vol] 100.4 fL Critically high 80.0-94.0 [facility] Comment on above: Performed By: #### C BC #### [facility] [address] [address] [address] Rashmi Nolan MONO # 0.3 103/ul Normal 0.3-0.8 [facility] Comment on above: Performed By: #### C BC #### [facility] [address] [address] [address] Rashmi Nolan Monocytes/100 WBC (Bld) 7.7 % Normal 1.7-12.0 [facility] Comment on above: Performed By: #### C BC #### [facility] [address] [address] [address] Rashmi Nolan NEUT # 2.3 103/ul Normal 1.4-6.5 [facility] Comment on above: Performed By: #### C BC #### [facility] [address] [place] [address] Dr. Rashmi Nolan Neutrophils/100 WBC (Bld) 64.6 % Normal 43.0-75.0 [facility] Comment on above: Performed By: #### C BC #### [facility] [address] [place] [address] Dr. Rashmi Nolan Platelet mean volume (Bld) [Entitic vol] 9.9 fL Normal 9.5-13.5 [facility] Comment on above: Performed By: #### C BC #### [facility] [address] [place] [address] Dr. Rashmi Nolan PLT 130 103/ul Critically low 150-450 [facility] Comment on above: Performed By: #### C BC #### [facility] [address] [place] [address] Dr. Rashmi Nolan RBC 2.60 106/ul Critically low 4.70-6.10 [facility] Comment on above: Performed By: #### C BC #### [facility] [address] [place] [address] Dr. Rashmi Nolan WBC 3.6 103/ul Critically low 4.0-11.0 [facility] Comment on above: Performed By: #### C BC #### [facility] [address] [place] [address] Dr. Rashmi Nolan PRBC LEUKOREDUCEDon 12-13-19 ABO and Rh group Nom (Bld) Cross Match Result Compatible Unit Blood Type O Pos Unit Number [id number] Status Information Issued Product ID Red Blood Cells Product Code [id number] Issue Date/Time [id number] Cross Match Result Compatible Unit Blood Type O Pos Unit Number [id number] Status Information Issued Product ID Red Blood Cells Product Code [id number] Issue Date/Time [id number] Normal [facility] Comment on above: Performed By: #### C BC #### [facility] [address] [address] [address] Rashmi Nolan PROF CHEM 8 (BAS METB)on Anion gap [Moles/Vol] 14.8 mmol/L Normal [facility] Comment on above: Performed By: #### B MP #### [facility] [address] [place] [address] Dr. Rashmi Nolan Calcium [Mass/Vol] 9.2 mg/dL Normal 8.5-10.1 [facility] Comment on above: Performed By: #### B MP #### [facility] [address] [address] [address] Rashmi Nolan Chloride [Moles/Vol] 110 mmol/L Critically high 98-107 [facility] Comment on above: Performed By: #### B MP #### [facility] [address] [address] [address] Rashmi Nolan CO2 [Moles/Vol] 23.5 mmol/L Normal 21.0-32.0 [facility] Comment on above: Performed By: #### B MP #### [facility] [address] [address] [address] Rashmi Nolan Creatinine [Mass/Vol] 1.77 mg/dL Critically high 0.70-1.30 [facility] Comment on above: Performed By: #### B MP #### [facility] [address] [address] [address] Rashmi Nolan EGFR-AF SAMMARINESE 44 mL/min/1.73m2 Critically low >=60 [facility] Comment on above: Performed By: #### B MP #### [facility] [address] [address] [address] Rashmi Nolan EGFR-NON AF SAMMARINESE 36 mL/min/1.73m2 Critically low >=60 [facility] Comment on above: Performed By: #### B MP #### [facility] [address] [address] [address] Rashmi Nolan Glucose [Mass/Vol] 103 mg/dL Normal 74-106 [facility] Comment on above: Performed By: #### B MP #### [facility] [address] [address] [address] Rashmi Nolan Potassium [Moles/Vol] 5.3 mmol/L Critically high 3.5-5.1 [facility] Comment on above: Performed By: #### B MP #### [facility] [address] [address] [address] Rashmi Nolan Sodium [Moles/Vol] 143 mmol/L Normal 136-145 [facility] Comment on above: Performed By: #### B MP #### [facility] [address] [address] [address] Rashmi Nolan Urea nitrogen [Mass/Vol] 54.0 mg/dL Critically high 7.0-18.0 [facility] Comment on above: Performed By: #### B MP #### [facility] [address] [address] [address] Rashmi Nolan Urea nitrogen/Creatinine [Mass ratio] 30.5 mg/mg Normal [facility] Comment on above: Performed By: #### B MP #### [facility] [address] [address] [address] Rashmi Nolan CBC AUTO DIFFon 12-11-2022 BASO # 0.0 103/ul Normal 0.0-0.1 [facility] Comment on above: Performed By: #### C BC #### [facility] [address] [address] [address] Rashmi Nolan Basophils/100 WBC (Bld) 0.4 % Normal 0.2-2.0 [facility] Comment on above: Performed By: #### C BC #### [facility] [address] [address] [address] Rashmi Nolan EO # 0.2 103/ul Normal 0.0-0.7 [facility] Comment on above: Performed By: #### C BC #### [facility] [address] [place] [address] Dr. Rashmi Nolan Eosinophils/100 WBC (Bld) 5.2 % Normal 0.9-7.0 [facility] Comment on above: Performed By: #### C BC #### [facility] [address] [place] [address] Dr. Rashmi Nolan Erythrocyte distribution width (RBC) [Ratio] 14.6 % Normal 11.0-15.0 [facility] Comment on above: Performed By: #### C BC #### [facility] [address] [place] [address] Dr. Rashmi Nolan Hematocrit (Bld) [Volume fraction] 23.7 % Critically low 42.0-54.0 [facility] Comment on above: Performed By: #### C BC #### [facility] [address] [place] [address] Dr. Rashmi Nolan Hemoglobin (Bld) [Mass/Vol] 7.8 g/dL Critically low 14.0-18.0 [facility] Comment on above: Performed By: #### C BC #### [facility] [address] [place] [address] Dr. Rashmi Nolan IG # 0.01 10e3/ul Normal 0.00-0.03 [facility] Comment on above: Performed By: #### C BC #### [facility] [address] [place] [address] Dr. Rashmi Nolan IG % 0.2 % Normal 0.0-0.5 [facility] Comment on above: Performed By: #### C BC #### [facility] [address] [place] [address] Dr. Rashmi Nolan LYMPH # 0.9 103/ul Critically low 1.2-3.8 [facility] Comment on above: Performed By: #### C BC #### [facility] [address] [address] [address] Rashmi Nolan Lymphocytes/100 WBC (Bld) 19.6 % Critically low 20.5-60.0 [facility] Comment on above: Performed By: #### C BC #### [facility] [address] [place] [address] Dr. Rashmi Nolan MANUAL DIFF REQ NO Normal [facility] Comment on above: Performed By: #### C BC #### [facility] [address] [place] [address] Dr. Rashmi Nolan MCH (RBC) [Entitic mass] 34.7 pg Critically high 25.9-34.0 [facility] Comment on above: Performed By: #### C BC #### [facility] [address] [place] [address] Dr. Rashmi Nolan MCHC (RBC) [Mass/Vol] 32.9 g/dL Normal 29.9-35.2 [facility] Comment on above: Performed By: #### C BC #### [facility] [address] [place] [address] Dr. Rashmi Nolan MCV (RBC) [Entitic vol] 105.3 fL Critically high 80.0-94.0 [facility] Comment on above: Performed By: #### C BC #### [facility] [address] [place] [address] Dr. Rashmi Nolan MONO # 0.3 103/ul Normal 0.3-0.8 [facility] Comment on above: Performed By: #### C BC #### [facility] [address] [place] [address] Dr. Rashmi Nolan Monocytes/100 WBC (Bld) 7.2 % Normal 1.7-12.0 [facility] Comment on above: Performed By: #### C BC #### [facility] [address] [place] [address] Dr. Rashmi Nolan NEUT # 3.0 103/ul Normal 1.4-6.5 [facility] Comment on above: Performed By: #### C BC #### [facility] [address] [address] [address] Rashmi Nolan Neutrophils/100 WBC (Bld) 67.4 % Normal 43.0-75.0 [facility] Comment on above: Performed By: #### C BC #### [facility] [address] [address] [address] Rashmi Nolan Platelet mean volume (Bld) [Entitic vol] 9.8 fL Normal 9.5-13.5 [facility] Comment on above: Performed By: #### C BC #### [facility] [address] [address] [address] Rashmi Nolan PLT 156 103/ul Normal 150-450 [facility] Comment on above: Performed By: #### C BC #### [facility] [address] [address] [address] Rashmi Nolan RBC 2.25 106/ul Critically low 4.70-6.10 [facility] Comment on above: Performed By: #### C BC #### [facility] [address] [address] [address] Rashmi Nolan WBC 4.5 103/ul Normal 4.0-11.0 [facility] Comment on above: Performed By: #### C BC #### [facility] [address] [address] [address] Rashmi Nolan CHEMISTRYOrdered By: SYSTEM SYSTEM on 12-11-2022 Iron binding capacity [Mass/Vol] 417 ug/dL High 250 - 400 mcg/dL [facility] Remisol Transferrin [Mass/Vol] 298 mg/dL Normal 200 - 370 mg/dL [facility] Remisol Consent Formson 12-11-2022 Consent Forms [id number] .[id number] [facility] HEMATOLOGYOrdered By: SYSTEM SYSTEM on 12-11-2022 [...] 2.4 E12/L Low 4.3 - 5.9 E12/L [facility] HemeAutoSS WBC corrected for nucl RBC Auto (Bld) [#/Vol] 5.2 E9/L Normal 4.0 - 11.0 E9/L [facility] HemeAutoSS MICRO OTHER TESTSOrdered By: Daniella Case on 12-11-2022 Occult Bld Stl Positive *ABN* (12/11/22 12:14 PM) Invalid Interpretation Code Negative [facility] Man Sero PROF 14(COMP METB)on 023 Albumin [Mass/Vol] 3.8 g/dL Normal 3.4-5.0 [facility] Comment on above: Performed By: #### B MP #### [facility] [address] [place] [address] Dr. Rashmi Nolan Albumin/Globulin [Mass ratio] 1.1 {ratio} Normal [facility] Comment on above: Performed By: #### B MP #### [facility] [address] [place] [address] Dr. Rashmi Nolan ALP [Catalytic activity/Vol] 178 U/L Critically high 46-116 [facility] Comment on above: Performed By: #### B MP #### [facility] [address] [place] [address] Dr. Rashmi oNlan ALT [Catalytic activity/Vol] 17 U/L Normal 16-63 [facility] Comment on above: Performed By: #### B MP #### [facility] [address] [address] [address] Rashmi Nolan Anion gap [Moles/Vol] 15.6 mmol/L Normal [facility] Comment on above: Performed By: #### B MP #### [facility] [address] [place] [address] Dr. Rashmi Nolan AST [Catalytic activity/Vol] 12 U/L Critically low 15-37 [facility] Comment on above: Performed By: #### B MP #### [facility] [address] [place] [address] Dr. Rashmi Nolan Bilirubin [Mass/Vol] 0.2 mg/dL Normal 0.2-1.0 [facility] Comment on above: Performed By: #### B MP #### [facility] [address] [place] [address] Dr. Rashmi Nolan Calcium [Mass/Vol] 9.5 mg/dL Normal 8.5-10.1 [facility] Comment on above: Performed By: #### B MP #### [facility] [address] [address] [address] Rashmi Nolan Chloride [Moles/Vol] 109 mmol/L Critically high 98-107 [facility] Comment on above: Performed By: #### B MP #### [facility] [address] [place] [address] Dr. Rashmi Nolan CO2 [Moles/Vol] 22.5 mmol/L Normal 21.0-32.0 [facility] Comment on above: Performed By: #### B MP #### [facility] [address] [place] [address] Dr. Rashmi Nolan Creatinine [Mass/Vol] 2.11 mg/dL Critically high 0.70-1.30 [facility] Comment on above: Performed By: #### B MP #### [facility] [address] [place] [address] Dr. Rashmi Nolan EGFR-AF SAMMARINESE 36 mL/min/1.73m2 Critically low >=60 [facility] Comment on above: Performed By: #### B MP #### [facility] [address] [place] [address] Dr. Rashmi Nolan EGFR-NON AF SAMMARINESE 30 mL/min/1.73m2 Critically low >=60 [facility] Comment on above: Performed By: #### B MP #### [facility] [address] [place] [address] Dr. Rashmi Nolan Globulin (S) [Mass/Vol] 3.4 g/dL Normal [facility] Comment on above: Performed By: #### B MP #### [facility] [address] [address] [address] Rashmi Nolan Glucose [Mass/Vol] 115 mg/dL Critically high 74-106 [facility] Comment on above: Performed By: #### B MP #### [facility] [address] [address] [address] Rashmi Nolan Potassium [Moles/Vol] 5.1 mmol/L Normal 3.5-5.1 [facility] Comment on above: Performed By: #### B MP #### [facility] [address] [address] [address] Rashmi Nolan Protein [Mass/Vol] 7.2 g/dL Normal 6.4-8.2 [facility] Comment on above: Performed By: #### B MP #### [facility] [address] [address] [address] Rashmi Nolan Sodium [Moles/Vol] 142 mmol/L Normal 136-145 [facility] Comment on above: Performed By: #### B MP #### [facility] [address] [address] [address] Rashmi Nolan Urea nitrogen [Mass/Vol] 57.0 mg/dL Critically high 7.0-18.0 [facility] Comment on above: Performed By: #### B MP #### [facility] [address] [place] [address] Dr. Rashmi Nolan Urea nitrogen/Creatinine [Mass ratio] 27.0 mg/mg Normal [facility] Comment on above: Performed By: #### B MP #### [facility] [address] [place] [address] Dr. Rashmi Nolan PROTIMEon 12-11-2022 INR Coag (PPP) [Relative time] 1.95 {INR} Normal [facility] Comment on above: Performed By: #### P T, PTT #### [facility] [address] [address] [address] Rashmi Nolan INR GUIDELINES SEE BELOW Normal [facility] Comment on above: Result Comment: ENOC RED INR: 2.0 - 3.0 CONDITIONS NOT LISTED BELOW 2.5 - 3.5 FOR PROSTHETIC HEART VALVE REPLACEMENT 2.5 - 3.5 RECURRENT THROMBOSIS Performed By: #### P T, PTT #### [facility] [address] [address] [address] Rashmi Nolan PT Coag (PPP) [Time] 19.9 s Critically high 9.0-11.6 [facility] Comment on above: Performed By: #### P T, PTT #### [facility] [address] [address] [address] Rashmi Nolan PTTon 12-11-2022 aPTT Coag (Bld) [Time] 30.3 s Normal 22.3-36.2 [facility] Comment on above: Performed By: #### P T, PTT #### [facility] [address] [address] [address] Rashmi Nolan TYPE AND SCREENon 12-11-2022 TYPE AND SCREEN Negative Normal [facility] Comment on above: Performed By: #### C BC #### [facility] [address] [address] [address] Rashmi Nolan XR CHEST 1 Von [...] Date: 2022-12-11 21:04 Normal [facility] Inpatient Patient Summaryon 12-10-2022 [place] [address] Patient Discharge Instructions Name: RY LERNER : 1935 Patient Address: [address] [place] [address] Primary Care Provider: Name: John Nieves MD After you are discharged if you find you have any questions, please, call [phone] ext [phone] to speak to a nurse. Discharge Diagnosis: [...] and/or drug addiction problems; contact the [facility] 18/02 Crisis Hotline -Text 4HXPZ to 924246. If you received any narcotics, sedation, or [...] business decisions or sign any legal documents [facility] would like to thank you for allowing us to assist you with your healthcare needs. The following includes patient education materials and information regarding your injury/illness. RY LERNER has been given the following list of follow-up instructions, prescriptions, and patient education materials: Follow-up Instructions With: Address: When: Ward Martinez [address] [place] [address], [address] [place] [address] Business (1) 12/18/2022 1:30 PM Medications During [...] 3. DO NOT lift heavy objects or hearing therapist forcefully with your hand 4. Change your [...] or concerns, please call the office at [phone] 7. Follow up as scheduled Viruses or [...] Services Centers for Disease Control and Prevention (more content not included)... [facility] Pre[facility] Pre-Op Record Summary Primary Physician: Ward Martinez DO Finalized Date/Time: 12/10/22 15:29:41 Pt. Name: RY LERNER /Sex: 1935 MALE Med Rec #: [id number] Physician: Ward Martinez DO Financial #: [id number] Pt. Type: D Room/Bed: / Admit/Disch: 12/10/22 [...] By: Maile Palmer RN 12/10/22 15:29 Normal [facility] Patient Handouton 12-10-[address] 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 Keep your hand elevated above your elbow for the first 24 hours after surgery 2. Wiggle your fingers frequently while awake 3. DO NOT lift heavy objects or hearing therapist forcefully with your hand 4. Change your [...] or concerns, please call the office at [phone] 7. Follow up as scheduled Normal [facility] MAGNESIUMon 11-06-2022 Magnesium [Mass/Vol] 2.2 mg/dL Normal 1.8-2.4 [facility] Comment on above: Performed By: #### B MP, MG #### [facility] [address] [address] [address] Rashmi Nolan PROF CHEM 8 (BAS METB)on Anion gap [Moles/Vol] 15.0 mmol/L Normal [facility] Comment on above: Performed By: #### B MP, MG #### [facility] [address] [address] [address] Rashmi Nolan Calcium [Mass/Vol] 10.0 mg/dL Normal 8.5-10.1 [facility] Comment on above: Performed By: #### B MP, MG #### [facility] [address] [address] [address] Rashmi Nolan Chloride [Moles/Vol] 108 mmol/L Critically high 98-107 [facility] Comment on above: Performed By: #### B MP, MG #### [facility] [address] [address] [address] Rashmi Nolan CO2 [Moles/Vol] 25.4 mmol/L Normal 21.0-32.0 [facility] Comment on above: Performed By: #### B MP, MG #### [facility] [address] [address] [address] Rashmi Nolan Creatinine [Mass/Vol] 1.98 mg/dL Critically high 0.70-1.30 [facility] Comment on above: Performed By: #### B MP, MG #### [facility] [address] [address] [address] Rashmi Nolan EGFR-AF SAMMARINESE 39 mL/min/1.73m2 Critically low >=60 [facility] Comment on above: Performed By: #### B MP, MG #### [facility] [address] [address] [address] Rashmi Nolan EGFR-NON AF SAMMARINESE 32 mL/min/1.73m2 Critically low >=60 [facility] Comment on above: Performed By: #### B MP, MG #### [facility] [address] [place] [address] Dr. Rashmi Nolan Glucose [Mass/Vol] 99 mg/dL Normal 74-106 [facility] Comment on above: Performed By: #### B MP, MG #### [facility] [address] [place] [address] Dr. Rashmi Nolan Potassium [Moles/Vol] 5.4 mmol/L Critically high 3.5-5.1 [facility] Comment on above: Performed By: #### B MP, MG #### [facility] [address] [place] [address] Dr. Rashmi Nolan Sodium [Moles/Vol] 143 mmol/L Normal 136-145 [facility] Comment on above: Performed By: #### B MP, MG #### [facility] [address] [place] [address] Dr. Rashmi Nolan Urea nitrogen [Mass/Vol] 52.0 mg/dL Critically high 7.0-18.0 [facility] Comment on above: Performed By: #### B MP, MG #### [facility] [address] [place] [address] Dr. Rashmi Nolan Urea nitrogen/Creatinine [Mass ratio] 26.3 mg/mg Normal [facility] Comment on above: Performed By: #### B MP, MG #### [facility] [address] [place] [address] Dr. Rashmi Nolan VIT B12 AND FOLATEon 023 Cobalamin (Vitamin B12) [Mass/Vol] 514.0 pg/mL Normal 193.0-986.0 [facility] Comment on above: Performed By: #### B MP #### [facility] [address] [place] [address] Dr. Rashmi Nolan FOLATE 10.00 ng/mL Normal 8.60-58.90 [facility] Comment on above: Performed By: #### B MP #### [facility] [address] [place] [address] Dr. Rashmi Nolan CBC AUTO DIFFon 08-16-2022 BASO # 0.0 103/ul Normal 0.0-0.1 [facility] Comment on above: Performed By: #### B MP #### [facility] [address] [place] [address] Dr. Rashmi Nolan Basophils/100 WBC (Bld) 0.8 % Normal 0.2-2.0 [facility] Comment on above: Performed By: #### B MP #### [facility] [address] [place] [address] Dr. Rashmi Nolan EO # 0.3 103/ul Normal 0.0-0.7 [facility] Comment on above: Performed By: #### B MP #### [facility] [address] [place] [address] Dr. Rashmi Nolan Eosinophils/100 WBC (Bld) 7.8 % Critically high 0.9-7.0 [facility] Comment on above: Performed By: #### B MP #### [facility] [address] [place] [address] Dr. Rashmi Nolan Erythrocyte distribution width (RBC) [Ratio] 13.2 % Normal 11.0-15.0 [facility] Comment on above: Performed By: #### B MP #### [facility] [address] [place] [address] Dr. Rashmi Nolan Hematocrit (Bld) [Volume fraction] 33.2 % Critically low 42.0-54.0 [facility] Comment on above: Performed By: #### B MP #### [facility] [address] [place] [address] Dr. Rashmi Nolan Hemoglobin (Bld) [Mass/Vol] 10.8 g/dL Critically low 14.0-18.0 [facility] Comment on above: Performed By: #### B MP #### [facility] [address] [place] [address] Dr. Rashmi Nolan IG # 0.01 10e3/ul Normal 0.00-0.03 [facility] Comment on above: Performed By: #### B MP #### [facility] [facility] [address] [place] [address] Dr. Rashmi Nolan IG % 0.3 % Normal 0.0-0.5 [facility] Comment on above: Performed By: #### B MP #### [facility] [address] [place] [address] Dr. Rashmi Nolan LYMPH # 1.0 103/ul Critically low 1.2-3.8 [facility] Comment on above: Performed By: #### B MP #### [facility] [address] [place] [address] Dr. Rashmi Nolan Lymphocytes/100 WBC (Bld) 24.7 % Normal 20.5-60.0 [facility] Comment on above: Performed By: #### B MP #### [facility] [address] [place] [address] Dr. Rashmi Nolan MANUAL DIFF REQ NO Normal [facility] Comment on above: Performed By: #### B MP #### [facility] [address] [place] [address] Dr. Rashmi Nolan MCH (RBC) [Entitic mass] 33.0 pg Normal 25.9-34.0 [facility] Comment on above: Performed By: #### B MP #### [facility] [address] [place] [address] Dr. Rashmi Nolan MCHC (RBC) [Mass/Vol] 32.5 g/dL Normal 29.9-35.2 [facility] Comment on above: Performed By: #### B MP #### [facility] [address] [place] [address] Dr. Rashmi Nolan MCV (RBC) [Entitic vol] 101.5 fL Critically high 80.0-94.0 [facility] Comment on above: Performed By: #### B MP #### [facility] [address] [place] [address] Dr. Rashmi Nolan MONO # 0.4 103/ul Normal 0.3-0.8 [facility] Comment on above: Performed By: #### B MP #### [facility] [address] [place] [address] Dr. Rashmi Nolan Monocytes/100 WBC (Bld) 10.7 % Normal 1.7-12.0 [facility] Comment on above: Performed By: #### B MP #### [facility] [address] [place] [address] Dr. Rashmi Nolan NEUT # 2.1 103/ul Normal 1.4-6.5 [facility] Comment on above: Performed By: #### B MP #### [facility] [address] [address] [address] Rashmi Nolan Neutrophils/100 WBC (Bld) 55.7 % Normal 43.0-75.0 [facility] Comment on above: Performed By: #### B MP #### [facility] [address] [place] [address] Dr. Rashmi Nolan Platelet mean volume (Bld) [Entitic vol] 10.5 fL Normal 9.5-13.5 [facility] Comment on above: Performed By: #### B MP #### [facility] [address] [place] [address] Dr. Rashmi Nolan PLT 160 103/ul Normal 150-450 [facility] Comment on above: Performed By: #### B MP #### [facility] [address] [place] [address] Dr. Rashmi Nolan RBC 3.27 106/ul Critically low 4.70-6.10 [facility] Comment on above: Performed By: #### B MP #### [facility] [address] [place] [address] Dr. Rashmi Nolan WBC 3.8 103/ul Critically low 4.0-11.0 [facility] Comment on above: Performed By: #### B MP #### [facility] [address] [place] [address] Dr. Rashmi Nolan LIPID PROFILEon 08-16-2022 CHOL-HDL RATIO NORM SEE BELOW Normal [facility] Comment on above: Result Comment: 3.3 - 4.4 LOW RISK 4.4 - 7.1 AVERAGE RISK 7.1 - 11.0 MODERATE RISK >11.0 HIGH RISK Performed By: #### B MP #### [facility] [address] [address] [address] Rashmi Nolan Cholesterol [Mass/Vol] 166 mg/dL Normal <=200 [facility] Comment on above: Performed By: #### B MP #### [facility] [address] [address] [address] Rashmi Nolan Cholesterol in HDL [Mass/Vol] 42 mg/dL Normal 40-60 [facility] Comment on above: Performed By: #### B MP #### [facility] [address] [address] [address] Rashmi Nolan Cholesterol in LDL [Mass/Vol] 110.4 mg/dL Normal [facility] Comment on above: Performed By: #### B MP #### [facility] [address] [address] [address] Rashmi Nolan Cholesterol.total/Cho lesterol in HDL [Mass ratio] 4.0 {ratio} Normal [facility] Comment on above: Performed By: #### B MP #### [facility] [address] [address] [address] Rashmi Nolan HDL NORMAL > or = 60 mg/dl - LO W CARDIOVASCULAR RISK <40 mg/dl - HIGH CARDIOVASCULAR RISK Normal [facility] Comment on above: Performed By: #### B MP #### [facility] [address] [address] [address] Rashmi Nolan LDL CALC NORMAL SEE BELOW Normal [facility] Comment on above: Result Comment: <100 mg/dl OPTIMAL 100 - 129 mg/dl NEAR OR ABOVE OPTIMAL 130 - 159 mg/dl BORDERLINE HIGH 160 - 189 mg/dl HIGH >190 mg/dl VERY HIGH Performed By: #### B MP #### [facility] [address] [address] [address] Rashmi Nolan Triglyceride [Mass/Vol] 68 mg/dL Normal <=150 [facility] Comment on above: Performed By: #### B MP #### [facility] [address] [address] [address] Rashmi Nolan VLDL CALC 13.6 mg/dL Normal [facility] Comment on above: Performed By: #### B MP #### [facility] [address] [address] [address] Rashmi Nolan PROF 14(COMP METB)on 023 Albumin [Mass/Vol] 3.9 g/dL Normal 3.4-5.0 [facility] Comment on above: Performed By: #### B MP #### [facility] [address] [address] [address] Rashmi Nolan Albumin/Globulin [Mass ratio] 1.1 {ratio} Normal [facility] Comment on above: Performed By: #### B MP #### [facility] [address] [address] [address] Rashmi Nolan ALP [Catalytic activity/Vol] 190 U/L Critically high 46-116 [facility] Comment on above: Performed By: #### B MP #### [facility] [address] [place] [address] Dr. Rashmi Nolan ALT [Catalytic activity/Vol] 15 U/L Critically low 16-63 [facility] Comment on above: Performed By: #### B MP #### [facility] [address] [address] [address] Rashmi Nolan Anion gap [Moles/Vol] 15.2 mmol/L Normal [facility] Comment on above: Performed By: #### B MP #### [facility] [address] [place] [address] Dr. Rashmi Nolan AST [Catalytic activity/Vol] 17 U/L Normal 15-37 [facility] Comment on above: Performed By: #### B MP #### [facility] [address] [place] [address] Dr. Rashmi Nolan Bilirubin [Mass/Vol] 0.4 mg/dL Normal 0.2-1.0 [facility] Comment on above: Performed By: #### B MP #### [facility] [address] [place] [address] Dr. Rashmi Nolna Calcium [Mass/Vol] 10.0 mg/dL Normal 8.5-10.1 [facility] Comment on above: Performed By: #### B MP #### [facility] [address] [address] [address] Rashmi Nolan Chloride [Moles/Vol] 108 mmol/L Critically high 98-107 [facility] Comment on above: Performed By: #### B MP #### [facility] [address] [address] [address] Rashmi Nolan CO2 [Moles/Vol] 25.8 mmol/L Normal 21.0-32.0 [facility] Comment on above: Performed By: #### B MP #### [facility] [address] [address] [address] Rashmi Nolan Creatinine [Mass/Vol] 1.78 mg/dL Critically high 0.70-1.30 [facility] Comment on above: Performed By: #### B MP #### [facility] [address] [address] [address] Rashmi Nolan EGFR-AF SAMMARINESE 44 mL/min/1.73m2 Critically low >=60 [facility] Comment on above: Performed By: #### B MP #### [facility] [address] [address] [address] Rashmi Nolan EGFR-NON AF SAMMARINESE 36 mL/min/1.73m2 Critically low >=60 [facility] Comment on above: Performed By: #### B MP #### [facility] [address] [address] [address] Rashmi Nolan Globulin (S) [Mass/Vol] 3.7 g/dL Normal [facility] Comment on above: Performed By: #### B MP #### [facility] [address] [address] [address] Rashmi Nolan Glucose [Mass/Vol] 100 mg/dL Normal 74-106 [facility] Comment on above: Performed By: #### B MP #### [facility] [address] [address] [address] Rashmi Nolan Potassium [Moles/Vol] 5.0 mmol/L Normal 3.5-5.1 [facility] Comment on above: Performed By: #### B MP #### [facility] [address] [address] [address] Rashmi Nolan Protein [Mass/Vol] 7.6 g/dL Normal 6.4-8.[address] [facility] Comment on above: Performed By: #### B MP #### [facility] [address] [address] [address] Rashmi Nolan Sodium [Moles/Vol] 144 mmol/L Normal 136-145 [facility] Comment on above: Performed By: #### B MP #### [facility] [address] [address] [address] Rashmi Nolan Urea nitrogen [Mass/Vol] 52.0 mg/dL Critically high 7.0-18.0 [facility] Comment on above: Performed By: #### B MP #### [facility] [address] [address] [address] Rashmi Nolan Urea nitrogen/Creatinine [Mass ratio] 29.2 mg/mg Normal [facility] Comment on above: Performed By: #### B MP #### [facility] [address] [address] [address] Rashmi Nolan PROF CHEM 8 (BAS METB)on Anion gap [Moles/Vol] 13.3 mmol/L Normal [facility] Comment on above: Performed By: #### C BC #### [facility] [address] [place] [address] Dr. Rashmi Nolan Calcium [Mass/Vol] 10.1 mg/dL Normal 8.5-10.1 [facility] Comment on above: Performed By: #### C BC #### [facility] [address] [address] [address] Rashmi Nolan Chloride [Moles/Vol] 104 mmol/L Normal 98-107 [facility] Comment on above: Performed By: #### C BC #### [facility] [address] [place] [address] Dr. Rashmi Nolan CO2 [Moles/Vol] 28.7 mmol/L Normal 21.0-32.0 [facility] Comment on above: Performed By: #### C BC #### [facility] [address] [address] [address] Rashmi Nolan Creatinine [Mass/Vol] 1.87 mg/dL Critically high 0.70-1.30 [facility] Comment on above: Performed By: #### C BC #### [facility] [address] [address] [address] Rashmi Nolan EGFR-AF SAMMARINESE 42 mL/min/1.73m2 Critically low >=60 [facility] Comment on above: Performed By: #### C BC #### [facility] [address] [address] [address] Rashmi Nolan EGFR-NON AF SAMMARINESE 34 mL/min/1.73m2 Critically low >=60 [facility] Comment on above: Performed By: #### C BC #### [facility] [address] [address] [address] Rashmi Nolan Glucose [Mass/Vol] 101 mg/dL Normal 74-106 [facility] Comment on above: Performed By: #### C BC #### [facility] [address] [address] [address] Rashmi Nolan Potassium [Moles/Vol] 5.0 mmol/L Normal 3.5-5.1 [facility] Comment on above: Performed By: #### C BC #### [facility] [address] [address] [address] Rashmi Nolan Sodium [Moles/Vol] 141 mmol/L Normal 136-145 [facility] Comment on above: Performed By: #### C BC #### [facility] [address] [address] [address] Rashmi Nolan Urea nitrogen [Mass/Vol] 41.0 mg/dL Critically high 7.0-18.0 [facility] Comment on above: Performed By: #### C BC #### [facility] [address] [address] [address] Rashmi Nolan Urea nitrogen/Creatinine [Mass ratio] 21.9 mg/mg Normal [facility] Comment on above: Performed By: #### C BC #### [facility] [address] [place] [address] Dr. Rashmi Nolan COVID/FLU RT-PCRon 2 SARS-CoV-2 (COVID-19) RNA ETELVINA+probe Ql (Unsp spec) Positive [facility] [employer] Other COVID/FLU RT-PCR Negative [facility] [employer] Other BNPon 02-15-2022 Natriuretic peptide B (Bld) [Mass/Vol] 1653.0 pg/mL Normal <=1,800.0 [facility] Comment on above: Performed By: #### C BC #### [facility] [address] [place] [address] Dr. Rashmi Nolan PROF CHEM 8 (BAS METB)on Anion gap [Moles/Vol] 15.8 mmol/L Normal [facility] Comment on above: Performed By: #### C BC #### [facility] [address] [place] [address] Dr. Rashmi Nolan Calcium [Mass/Vol] 9.6 mg/dL Normal 8.5-10.1 [facility] Comment on above: Performed By: #### C BC #### [facility] [address] [place] [address] Dr. Rashmi Nolan Chloride [Moles/Vol] 108 mmol/L Critically high 98-107 [facility] Comment on above: Performed By: #### C BC #### [facility] [address] [place] [address] Dr. Rashmi Nolan CO2 [Moles/Vol] 24.2 mmol/L Normal 21.0-32.0 [facility] Comment on above: Performed By: #### C BC #### [facility] [address] [place] [address] Dr. Rashmi Nolan Creatinine [Mass/Vol] 1.87 mg/dL Critically high 0.70-1.30 [facility] Comment on above: Performed By: #### C BC #### [facility] [address] [place] [address] Dr. Rashmi Nolan EGFR-AF SAMMARINESE 42 mL/min/1.73m2 Critically low >=60 [facility] Comment on above: Performed By: #### C BC #### [facility] [address] [place] [address] Dr. Rashmi Nolan EGFR-NON AF SAMMARINESE 34 mL/min/1.73m2 Critically low >=60 [facility] Comment on above: Performed By: #### C BC #### [facility] [address] [place] [address] Dr. Rashmi Nolan Glucose [Mass/Vol] 107 mg/dL Critically high 74-106 [facility] Comment on above: Performed By: #### C BC #### [facility] [address] [place] [address] Dr. Rashmi Nolan Potassium [Moles/Vol] 5.0 mmol/L Normal 3.5-5.1 [facility] Comment on above: Performed By: #### C BC #### [facility] [address] [place] [address] Dr. Rashmi Nolan Sodium [Moles/Vol] 143 mmol/L Normal 136-145 [facility] Comment on above: Performed By: #### C BC #### [facility] [address] [place] [address] Dr. Rashmi Nolan Urea nitrogen [Mass/Vol] 28.0 mg/dL Critically high 7.0-18.0 [facility] Comment on above: Performed By: #### C BC #### [facility] [address] [place] [address] Dr. Rashmi Nolan Urea nitrogen/Creatinine [Mass ratio] 15.0 mg/mg Normal [facility] Comment on above: Performed By: #### C BC #### [facility] [address] [place] [address] Dr. Rashmi Nolan APTTon 10-13-2021 aPTT Coag (Bld) [Time] 36.7 s High 25.0-35.0 [facility] Comment on above: Result Comment: ALL RESULTS [...] By: #### 5 0103 #### [facility] [address] [place] [address], [facility] BASIC METABOLIC PANELon 09-26 Calcium [Mass/Vol] 9.7 mg/dL Normal 8.6-10.3 [facility] Comment on above: Performed By: #### 0 0071, [id number], 72239, 38659 #### [facility] [address] [place] [address], [facility] Chloride [Moles/Vol] 108 mmol/L High 98-107 Comment on above: Performed By: #### 0 0071, 26193, 39072, 71295 #### [facility] [address] [place] [address], [facility] CO2 [Moles/Vol] 23 mmol/L Normal 21-31 [facility] Comment on above: Performed By: #### 0 0071, 29955, 91440, 97197 #### [facility] [address] [place] [address], [facility] Creatinine [Mass/Vol] 1.98 mg/dL High 0.70-1.30 Comment on above: Performed By: #### 0 0071, 54655, 84489, 98776 #### [facility] [address] eGFR- 39 ml/min/1.73sq m Abnormal >60 [facility] Comment on above: Result Comment: Calc ulation may not be valid for patients over 70 years Performed By: #### 0 0071, 18420, 18537, 98560 #### [facility] [address] eGFR- non- 32 ml/min/1.73sq m Abnormal >60 [facility] Comment on above: Result Comment: Calc ulation may not be valid for patients over 70 years Performed By: #### 0 0071, 54430, 83229, 45057 #### [facility] [address] [place] [address], [facility] Glucose [Mass/Vol] 88 mg/dL Normal 70-100 [facility] Comment on above: Performed By: #### 0 0071, 65960, 31438, 76351 #### [facility] [address] [place] [address], [place] Potassium [Moles/Vol] 4.8 mmol/L Normal 3.5-5.1 Comment on above: Performed By: #### 0 0071, 18998, 43319, 71761 #### [facility] [address] [place] [address], [place] Sodium [Moles/Vol] 138 mmol/L Normal 136-145 [facility] Comment on above: Performed By: #### 0 0071, 04397, 70075, 55203 #### [facility] [address] [place] [address], [facility] Urea nitrogen [Mass/Vol] 46 mg/dL High 7-25 [facility] Comment on above: Performed By: #### 0 0071, 47878, 96482, 51760 #### [facility] [address] [place] [address], [facility] BNP EDon 10-13-2021 Natriuretic peptide B (Bld) [Mass/Vol] 428 pg/mL High 0-100 [facility] Comment on above: Result Comment: Give n the appropriate clinical setting a BNP result of >100 pg/mL indicates congestive heart failure. Performed By: #### 3 0935 #### [facility] [address] [place] [address], [facility] CBC W/DIFFon 10-13-2021 ABS IMM GRANS 0.0 10*3/uL Normal 0.0-0.2 [facility] Comment on above: Performed By: #### 5 0103 #### [facility] [address] [place] [address], [facility] ABS NEUTROPHILS 2.8 10*3/uL Normal 1.6-7.6 [facility] Comment on above: Performed By: #### 5 0103 #### [facility] [address] [place] [address], [facility] Basophils (Bld) [#/Vol] 0.0 10*3/uL Normal 0.0-0.2 [facility] Comment on above: Performed By: #### 5 0103 #### [facility] [address] [place] [address], [facility] Basophils/100 WBC (Bld) 0.5 % Normal 0.0-1.0 [facility] Comment on above: Performed By: #### 5 0103 #### [facility] [address] [place] [address], [facility] Eosinophils (Bld) [#/Vol] 0.3 10*3/uL Normal 0.0-0.5 [facility] Comment on above: Performed By: #### 5 0103 #### [facility] [address] [place] [address], [facility] Eosinophils/100 WBC (Bld) 7.4 % High 0.0-6.0 [facility] Comment on above: Performed By: #### 5 0103 #### [facility] [address] [place] [address], [facility] Erythrocyte distribution width (RBC) [Ratio] 13.9 % Normal 11.5-15.0 [facility] Comment on above: Performed By: #### 5 3 #### [facility] [address] [place] [address], [facility] Hematocrit (Bld) [Volume fraction] 33.5 % Low 39.0-50.0 [facility] Comment on above: Performed By: #### 5 0103 #### [facility] [address] [facility] [place] [address], [facility] Hemoglobin (Bld) [Mass/Vol] 11.4 g/dL Low 13.0-17.0 [facility] Comment on above: Performed By: #### 5 0103 #### [facility] [address] [facility] [place] [address], [facility] IMMATURE GRANS 0.2 % Normal 0.0-1.0 [facility] Comment on above: Performed By: #### 5 0103 #### [facility] [address] [facility]. [address] Lymphocytes (Bld) [#/Vol] 0.9 10*3/uL Low 1.2-4.0 [facility] Comment on above: Performed By: #### 5 0103 #### [facility] [address] [facility] [place] [address], [facility] Lymphocytes/100 WBC (Bld) 20.1 % Normal 20.0-45.0 [facility] Comment on above: Performed By: #### 5 0103 #### [facility] [address] [facility]. [address] MCH (RBC) [Entitic mass] 33.1 pg High 27.0-33.0 [facility] Comment on above: Performed By: #### 5 0103 #### [facility] [address] [facility] [place] [address], [facility] MCHC (RBC) [Mass/Vol] 34.0 g/dL Normal 32.0-35.0 [facility] Comment on above: Performed By: #### 5 0103 #### [facility] [address] [facility] [place] [address] [place] MCV (RBC) [Entitic vol] 97.4 fL Normal 82.0-98.0 [facility] Comment on above: Performed By: #### 5 0103 #### [facility] [address] [place] [address], [facility] Monocytes (Bld) [#/Vol] 0.4 10*3/uL Normal 0.1-1.0 [facility] Comment on above: Performed By: #### 5 0103 #### [facility] [address] [place] [address], [facility] MONOS 8.4 % Normal 5.0-12.0 [facility] Comment on above: Performed By: #### 5 102 #### [facility] [address] [place] [address], [facility] Neutrophils/100 WBC (Bld) 63.4 % Normal 40.0-72.0 [facility] Comment on above: Performed By: #### 102 #### [facility] [address] [place] [id number], [facility] Nucleated RBC/100 WBC (Bld) [Ratio] 0 % Normal 0-0 [facility] Comment on above: Performed By: #### 5 102 #### [facility] [address] [place] [address], [place] PLAT CNT 116 10*3/uL Low 150-400 [facility] Comment on above: Performed By: #### 5 102 #### [facility] [address] [place] [address], [facility] RBC (Bld) [#/Vol] 3.44 10*6/uL Low 4.20-5.[address] [facility] Comment on above: Performed By: #### 102 #### [facility] [address] [place] [address], [place] WBC (Bld) [#/Vol] 4.43 10*3/uL Normal 4.00-10.[address] [facility] Comment on above: Performed By: #### 5 0103 #### [facility] [address] [place] [address], [facility] Cardiovascular Lab Reporton 10-13-2021 Cardiovascular Lab Report [facility]: [id number] Physician: Royal Gandara MD Department of Service Date: 10/13/2021 Medicine Birthdate: 1935 Division of Room #: [facility] Cardiology Adult Cardiovascular Services [facility] [address] [place], [place] [address] Cardiovascular Laboratory Report PACEMAKER IMPLANT PROCEDURE NOTE DATE OF PROCEDURE: 10/13/2021 PERFORMING PHYSICIAN: Dr. Royal Gandara CONSENT: Patient LOCATION: EP Lab PROCEDURE PERFORMED: 1. Implantation of pacemaker ([employer]) 2. Ultrasound guided venous access INDICATIONS: [...] previously recommended a pacemaker, however, presented to [place] ED with a ventricular rate in the 30s. He was subsequently transferred over to [facility] ED for a pacemaker placement. [...] using modified seldinger technique using a 5 Italian micro-puncture needle on one occasion and 0.35 wire was placed. Local infiltration of 1% Lidocaine was performed, and an incision was created in the left upper chest. Dissection was then performed using cautery down to the fascial plane above the muscle. A small pocket was created for the device. 6 Italian Safesheaths were placed over the wire. An active fixation [employer] pacing lead was then delivered through the 6Fsheath to the right ventricle. After confirmation of lead position on orthogonal views (HANSEN and SINHALA) to confirm septal position, the screw was [...] immediate procedural complications were noted. Device info: [employer] Accolade MRI EL Model# L331 Serial# [id number] RV lead: Model# INGEVITY [id number] (59cms) Serial# [id number] Sensin.4mV Threshold: 0.6V@0.4ms Impedance: 598 Ohms POST [...] Gandara MD Date Trans: 10/13/2021 10:46 Alcides/oscar [id number] cc: Jason Silva M.D. [address] [place] [phone] Normal FRESH FROZEN PLASMA 1 UNITon 10-13-2021 PRODUCT CODE 1 E2701 Normal [facility] Comment on above: Order Comment: INR: 2.88 ,PTT: 36.7 at the time of order ;Indication: Other pacemaker placement Performed By: #### 8 7001 #### [facility] [address] [place] [address], [facility] PRODUCT STATUS 1 RE Normal [facility] Comment on above: Order Comment: INR: 2.88 ,PTT: 36.7 at the time of order ;Indication: Other pacemaker placement Result Comment: Resu lt changed by IF on 10/19/2021 01:00. The previous value was XM. Performed By: #### 8 7001 #### [facility] [address] [place] [address], [facility] UNIT ABO 1 O Normal Comment on above: Order Comment: INR: 2.88 ,PTT: 36.7 at the time of order ;Indication: Other pacemaker placement Performed By: #### 8 7001 #### [facility] [address] [place] [address], [facility] UNIT ID 1 [id number] Normal [facility] Comment on above: Order Comment: INR: 2.88 ,PTT: 36.7 at the time of order ;Indication: Other pacemaker placement Performed By: #### 8 7001 #### [facility] [address] [place] [address], [facility] UNIT RH 1 Negative Normal [facility] Comment on above: Order Comment: INR: 2.88 ,PTT: 36.7 at the time of order ;Indication: Other pacemaker placement Performed By: #### 8 7001 #### [facility] [address] [place] [address], [facility] LIVER BATTERYon 10-13-2021 Albumin [Mass/Vol] 4.0 g/dL Normal 3.5-5.7 [facility] Comment on above: Performed By: #### 0 0071, 98895, 59980, 26855 #### [facility] [address] [place] [address], [facility] ALKALINE PHOSPH 137 IU/L High 34-104 [facility] Comment on above: Performed By: #### 0 0071, 02059, 16384, 28162 #### [facility] [address] [place] [address], [facility] ALT [Catalytic activity/Vol] 29 U/L Normal 7-52 [facility] Comment on above: Performed By: #### 0 0071, 72197, 28110, 95301 #### [facility] [address] [place] [address], [facility] AST [Catalytic activity/Vol] 22 U/L Normal 13-39 [facility] Comment on above: Performed By: #### 0 0071, 45017, 78319, 74575 #### [facility] [address] [place] [address], [facility] Bilirubin [Mass/Vol] 0.7 mg/dL Normal 0.3-1.0 [facility] Comment on above: Performed By: #### 0 0071, 39745, 45447, 45893 #### [facility] [address] [place] [address], [facility] Bilirubin.direct [Mass/Vol] 0.1 mg/dL Normal 0.0-0.2 [facility] Comment on above: Performed By: #### 0 0071, 92374, 96005, 56596 #### [facility] [address] [place] [id number], [facility] Protein [Mass/Vol] 6.3 g/dL Normal 6.0-8.3 [facility] Comment on above: Performed By: #### 0 0071, 17494, 56935, 67975 #### [facility] [address] [place] [id number], [facility] MAGNESIUM BLOODon 10-13-2021 Magnesium [Mass/Vol] 2.0 mg/dL Normal 1.9-2.7 [facility] Comment on above: Performed By: #### 0 0071, 70229, 44940, 39107 #### [facility] [address] 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 Performed By: #### 3 2043 #### [place] [address], [facility] PORTABLE CHEST 1 VIEWon 09-26 PORTABLE CHEST 1 VIEW [facility] Department of Radiology [address] [place] [id number] Patient Name: RY LERNER : 1935 Sex: M Age: Race: White Pt. Location: [facility] Patient Status: E Ordered Date: 10/13/2021 [...] report. Electronically signed: Mark Aguilar. Transcribed by: [email or web address], User Resident: HUMBLE HERNANDEZ Electronically Signed by: MARK AGUILAR @ 10/13/2021 05:55 AM I personally read this/these film(s) with this resident Normal [facility] Comment on above: Order Comment: evalu ate for Infiltrates PROTHROMBIN TIMEon INR Coag (PPP) [Relative time] 2.88 {INR} High 0.91-1.16 [facility] Comment on above: Result Comment: ACCC P [...] CHEST 1995;108:231S-246S. Performed By: #### 5 6101, 72402 #### [facility] [address] [place] [address], [facility] PT Coag (PPP) [Time] 30.0 s High 12.3-14.8 [facility] Comment on above: Result Comment: ALL RESULTS MUST BE INTERPRETED WITH RESPECT TO BLOOD DRAWING ARTIFACT OR DILUTION ERROR OF ANTICOAGULANT AT THE TIME OF SAMPLING. Performed By: #### 5 6101, 86053 #### [facility] [address] [place] [address], [facility] TROPONIN-Ion 10-13-2021 Troponin I.cardiac [Mass/Vol] 0.05 ng/mL High 0.00-0.04 Comment on above: Result Comment: REFE JOSE RAMON RANGES: 0.00 - 0.04 ng/ml NORMAL 0.05 - 0.50 ng/ml INDETERMINATE > 0.50 ng/ml CONSISTENT WITH AN M.I. Performed By: #### 0 0071, 49721, 92304, 04008 #### [facility] [address] TYPE AND SCREENon 10-13-2021 ABO INTERPRETATION O Normal [facility] Comment on above: Performed By: #### 5 0103 #### [facility] [address] [place] [address], [facility] RH INTERPRETATION Positive Normal [facility] Comment on above: Performed By: #### 5 0103 #### [facility] [address] [place], [place] [id number] [place] [address] Vital Signs Date Time Vital Sign Value Performing Clinician Facility 10-24-2023 15:49-0400 Heart rate 65 /min Christelle Timmis [facility] 10-24-2023 15:49-0400 SaO2% (BldA) [Mass fraction] 99 % Christelle Timmis [facility] 10-24-2023 15:48-0400 Diastolic blood pressure 73 mm[Hg] Christelle Timmis [facility] 10-24-2023 15:48-0400 Mean blood pressure 98 mm[Hg] Christelle Timmis [facility] 10-24-2023 15:48-0400 Systolic blood pressure 148 mm[Hg] Christelle Timmis [facility] 10-24-2023 15:48-0400 Respiratory rate 16 /min Christelle Timmis [facility] 10-24-2023 14:52-0400 Heart rate 61 /min Christelle Timmis [facility] 10-24-2023 14:52-0400 SaO2% (BldA) [Mass fraction] 100 % Christelle Timmis [facility] 10-24-2023 14:51-0400 Diastolic blood pressure 72 mm[Hg] Christelle Timmis [facility] 10-24-2023 14:51-0400 Mean blood pressure 101 mm[Hg] Christelle Timmis [facility] 10-24-2023 14:51-0400 Systolic blood pressure 160 mm[Hg] Christelle Timmis [facility] 10-24-2023 14:42-0400 Body temperature 97.7 [degF] Christelle Timmis [facility] 10-24-2023 14:42-0400 Diastolic blood pressure 60 mm[Hg] Christelle Timmis [facility] 10-24-2023 14:42-0400 Heart rate 60 /min Christelle Timmis [facility] 10-24-2023 14:42-0400 Mean blood pressure 83 mm[Hg] Christelle Timmis [facility] 10-24-2023 14:42-0400 Respiratory rate 15 /min Christelle Timmis [facility] 10-24-2023 14:42-0400 SaO2% (BldA) [Mass fraction] 99 % Christelle Timmis [facility] 10-24-2023 14:42-0400 Systolic blood pressure 129 mm[Hg] Christelle Timmis [facility] 10-24-2023 14:30-0400 Mean blood pressure 77 mm[Hg] Christelle Timmis [facility] 10-24-2023 14:30-0400 Respiratory rate 12 /min Christelle Timmis [facility] 10-24-2023 14:25-0400 Mean blood pressure 84 mm[Hg] Christelle Timmis [facility] 10-24-2023 14:25-0400 Respiratory rate 16 /min Christelle Timmis [facility] 10-24-2023 14:20-0400 FIO2 35 1 Christelle Timmis [facility] 10-24-2023 14:17-0400 Body temperature 97.7 [degF] Christelle Timmis [facility] 10-24-2023 14:15-0400 FIO2 100 1 Christelle Timmis [facility] 10-24-2023 14:10-0400 FIO2 100 1 Christelle Timmis [facility] 10-24-2023 14:10-0400 Respiratory rate 6 /min Christelle Timmis [facility] 10-24-2023 14:05-0400 Respiratory rate 10 /min Christelle Timmis [facility] 10-24-2023 12:46-0400 Blood Pressure Location Christelle Timmis [facility] 10-24-2023 12:46-0400 Mean blood pressure 105 mm[Hg] Christelle Timmis [facility] 10-24-2023 12:43-0400 Body temperature 97.88 [degF] Christelle Timmis [facility] 10-24-2023 12:41-0400 Blood Pressure Location Christelle Timmis [facility] 10-23-2023 13:49-0400 Body temperature 98.06 [degF] Christelle Timmis [facility] 10-23-2023 13:49-0400 Diastolic blood pressure 57 mm[Hg] Christelle Timmis [facility] 10-23-2023 13:49-0400 Heart rate 60 /min Christelle Timmis [facility] 10-23-2023 13:49-0400 Mean blood pressure 79 mm[Hg] Christelle Timmis [facility] 10-23-2023 13:49-0400 Respiratory rate 17 /min Christelle Timmis [facility] 10-23-2023 13:49-0400 SaO2% (BldA) [Mass fraction] 98 % Christelle Timmis [facility] 10-23-2023 13:49-0400 Systolic blood pressure 122 mm[Hg] Christelle Timmis [facility] 10-23-2023 13:47-0400 Diastolic blood pressure 62 mm[Hg] Christelle Timmis [facility] 10-23-2023 13:47-0400 Systolic blood pressure 107 mm[Hg] Christelle Timmis [facility] 09-30-2023 14:26-0500 Blood Pressure Location Mary Jane Garza [facility] 09-30-2023 14:26-0500 Body temperature 95.72 [degF] Mary Jane Garza [facility] 09-30-2023 14:26-0500 Diastolic blood pressure 57 mm[Hg] Mary Jane Garza [facility] 09-30-2023 14:26-0500 Heart rate 60 /min Mary Jane Garza [facility] 09-30-2023 14:26-0500 Respiratory rate 16 /min Mary Jane Garza [facility] 09-30-2023 14:26-0500 Systolic blood pressure 114 mm[Hg] Mary Jane Garza [facility] 06-02-2022 14:50-0400 Body height 182.88 cm Sonja Aden Other [facility] Other 06-02-2022 14:50-0400 Body mass index (BMI) [Ratio] 29.73 kg/m2 Sonja Aden Other [facility] Other 06-02-2022 14:50-0400 Body temperature 99.6 [degF] Sonja Aden Other [facility] Other 06-02-2022 14:50-0400 Body weight 99.43 kg Sonja Aden Other [facility] Other 06-02-2022 14:50-0400 Diastolic blood pressure 54 mm[Hg] Sonja Aden Other [facility] Other 06-02-2022 14:50-0400 Respiratory rate 18 /min Sonja Aden Other [facility] Other 06-02-2022 14:50-0400 SaO2% (BldA) [Mass fraction] 95 % Sonja Aden Other [facility] Other 06-02-2022 [id number] Systolic blood pressure 118 mm[Hg] Sonja Aden Other [facility] Other Encounters Encounter Date Encounter Type Care Provider Facility Start: 03-17-2024 End: 03-17-2024 ambulatory [facility] Start: 03-13-2024 End: 03-13-2024 ambulatory [facility] Start: 02-12-2024 End: 02-12-2024 ambulatory [facility] Start: 01-22-2024 [facility]: 01-22-[facility]24 Evaluation and management of inpatient [facility] Start: 01-21-2024 ambulatory [facility] Start: 01-21-2024 End: 01-22-2024 Evaluation and management of inpatient [facility] Start: 01-14-2024 End: 01-14-2024 [facility] Start: 01-03-2024 End: 01-03-2024 ambulatory [facility] Start: 12-04-2023 End: 12-04-2023 ambulatory [facility] Start: 12-03-2023 End: 12-03-2023 ambulatory Sheng L Brissa Facility:[facility] Start: 10-30-2023 End: 10-30-2023 ambulatory Sheng L Brissa [facility] Start: 10-30-2023 End: 10-30-2023 ambulatory [facility] Start: 10-24-2023 End: 10-24-2023 Admission to same day surgery center Christelle Salazar [facility] Start: 10-24-2023 End: 10-24-2023 ambulatory Christelle Sadlermis Facility:[facility] Start: 10-23-2023 End: 10-23-2023 ambulatory Christelle Sadlermis Facility:[facility] Start: 10-23-2023 End: 10-23-2023 Patient encounter procedure Christelle Salazar [facility] Start: 10-23-2023 End: 10-23-2023 ambulatory CHRISTELLE MEYERS Not Available Start: 10-02-2023 End: 10-02-2023 ambulatory Sheng L Brissa Facility:[facility] Start: 09-30-2023 End: 09-30-2023 ambulatory Mary Jane Garza Facility: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 Work Phone: [facility] Start: 08-29-2023 Bamboo flowsheet Addie A Fel ter [employer]EL FINISH[employer] SUPERVISOR Work Phone: [facility] Start: 08-29-2023 End: 08-29-2023 Office outpatient new 30 minutes Addie A Felter [employer] FINISH[employer] SUPERVISOR Work Phone: [facility] Comment on above: Other atopic dermati tis (Primary Dx); Seborrheic keratosis Start: 08-28-2023 End: 08-28-2023 ambulatory John Nieves Facility:[facility] Start: 07-03-2023 End: 07-03-2023 ambulatory Sheng L Brissa Facility:[facility] Start: 07-02-2023 End: 07-02-2023 ambulatory ROYAL ODELLO [facility] Start: 05-15-2023 End: 05-15-2023 ambulatory CHARISSE GAY [facility] Start: 01-22-2023 End: 01-22-2023 Lab Drop off Sheng L Brissa [facility] Start: 12-31-2022 End: 12-31-2022 ambulatory [facility] Facility:[facility] Start: 12-25-2022 End: 12-26-[address] JASON SILVA . Facility: Start: 12-12-2022 End: 12-14-2022 Evaluation and management of inpatient DR JASON SILVA . Facility:[facility] Start: 12-11-2022 End: 12-11-2022 Lab Drop off Sheng L Brissa [facility] Start: 12-10-2022 End: 12-10-2022 ambulatory [facility] Facility:[facility] Start: 11-26-2022 End: 12-26-2022 ambulatory SHAIKH [...] Start: 07-30-2022 End: 08-29-2022 ambulatory HAYWARD Joe FAWWAD Facility:[facility] Start: 07-24-2022 End: 07-25-2022 ambulatory ROYAL GANDARA Facility:[facility] Start: 06-28-2022 End: 07-29-2022 ambulatory HAYWARD H FAWWAD Facility:[facility] Start: 06-02-2022 End: 06-02-2022 ambulatory Sonja Aden Other [facility] Other Start: 06-02-2022 Office outpatient ne w [...] 10-13-2021 Emergency department patient visit PHYSICIAN UNKNOWN Facility:[facility] Procedures Date Procedure Procedure Detail [...] By: #### B MP #### [facility] [address] [place] [address] [address] Rashmi Nolan Start: 10-13-2021 Antibody screen PHYSICI AN UNKNOWN Comment on above: Performed By: #### 5 0103 #### [facility] [address] [facility]. [address] Start: 09-26-2021 Cardiac pacemaker, d evice (physical object) Sheng Lagos Start: 02-26-2011 Colonoscopy Sheng Ferro b Start: 07-29-1995 TURP syndrome (disorder) Sheng [place]os Start: 07-29-1993 Herniated structure (morphologic abnormality) Sheng Lagos Tonsillectomy and adenoidectomy Sheng [place] Plan of Treatment Date Care Activity Detail Author Start: 08-29-2023 End: 08-29-2023 Patient encounter procedure 08/29/2023 1:00 PM EST Office Visit [facility] [address] [place] [address] Addie Huston, STEEL FINISHER[employer]CASHI[employer] SUPERVISOR [address] [place] [address] Arrived [facility] Comment on above: Arrived Immunizations Immunization Date Immunization Notes Care Provider Fa cility 08-02-2023 zoster vaccine recombinant Mary Jane Garza [facility] 07-03-2023 influenza virus vaccine, unspecified formulation Jimmied Mouchli [facility] 07-03-2023 pneumococcal 20-aurelio nt conjugate vaccine Mohamad Mouchli [facility] 05-02-2022 influenza virus vaccine, unspecified formulation Sheng Brissa [facility] 05-02-2022 Seasonal trivalent influenza vaccine, adjuvanted, preservative free Addie Huston [facility] Work Phone: [facility] 04-28-2021 SARS-CoV-2 (COVID-19 ) mRNA-1273 vaccine [facility] Momalcolmli [facility] 09-17-2020 SARS-CoV-2 (COVID-19 ) mRNA BNT-162b2 vax Sheng Brissa [facility] Comment on above: Result Comment: 2022: [id number] 08-27-2020 SARS-CoV-2 (COVID-19 ) mRNA BNT-162b2 vax Sheng Brissa [facility] Comment on above: Result Comment: 2022: [id number] 06-13-2020 influenza virus vaccine, unspecified formulation Sheng Brissa [facility] 06-01-2019 influenza virus vaccine, unspecified formulation Sheng Brissa [facility] 04-14-2018 influenza virus vaccine, unspecified formulation Sheng Brissa [facility] 04-22-2017 influenza virus vaccine, unspecified formulation Sheng Brissa [facility] 05-01-2016 influenza virus vaccine, unspecified formulation Sheng Brissa [facility] 06-02-2015 influenza virus vaccine, unspecified formulation Sheng Brissa [facility] 05-31-2014 influenza virus vaccine, unspecified formulation Sheng Brissa [facility] 06-02-2013 influenza virus vaccine, unspecified formulation Sheng Brissa [facility] 05-29-2005 influenza, whole Sheng Brissa [facility] Payers Date Payer Category Payer Unknown [facility] 1999 Medicare [id number] 1959 Medicare [id number] 1935 Unknown [id number] 2.16.8 40.1.758008.3.579.2.647 1934 Unknown [id number] 2.16. 840.1.271767.3.579.2.732 1934 Unknown [id number] 2.16. 840.1.886939.3.579.2.732 1934 Unknown [id number] 2.16.8 40.1.404265.3.579.2.718 1934 Unknown [id number] 2.16.8 40.1.243768.3.579.2.718 1934 Unknown [id number] 2.16.84 0.1.535829.3.579.2.593 1934 Unknown [id number] 2.16.84 0.1.156922.3.579.2.593 1934 Unknown [id number] 2.16.84 0.1.864074.3.579.2.593 1934 Unknown [id number] 2.16.84 0.1.686277.3.579.2.593 -193 Unknown [id number] 2.16.84 0.1.232432.3.579.2.593 1934 Unknown [id number] 2.16.84 0.1.824677.3.579.2.593 1934 Unknown [id number] 2.16.84 0.1.546608.3.579.2.593 1934 Unknown [id number] 2.16.84 0.1.977800.3.579.2.593 1934 Unknown [id number] 2.16.84 0.1.067080.3.579.2.593 1934 Unknown [id number] 2.16.84 0.1.895960.3.579.2.593 1934 Unknown [id number] 2.16.84 0.1.919310.3.579.2.593 1934 Unknown [id number] 2.16.84 0.1.401210.3.579.2.593 1934 Unknown [id number] 2.16.84 0.1.729249.3.579.2.593 1934 Unknown [id number] 2.16.84 0.1.958451.3.579.2.593 1934 Unknown [id number] 2.16.84 0.1.982470.3.579.2.593 1934 Unknown [id number] 2.16.84 0.1.758896.3.579.2.593 1934 Unknown [id number] 2.16.84 0.1.936357.3.579.2.593 1934 Unknown [id number] 2.16.84 0.1.541083.3.579.2.593 1934 Unknown [id number] 2.16. 840.1.112810.3.579.2.196 1934 Unknown [id number] 2.16.84 0.1.679084.3.579.2.1259 1934 Unknown [id number] 2.16.84 0.1.367310.3.579.2.1259 1934 Unknown [id number] 2.16.8 40.1.367276.3.579.2.727 1934 Unknown [id number] 2.16.8 40.1.887947.3.579.2.727 1934 Unknown [id number] 2.16.8 40.1.489588.3.579.2.727 1934 Unknown [id number] 2.16.8 40.1.140126.3.579.2.727 1934 Unknown [id number] 2.16.8 40.1.420474.3.579.2.727 1934 Unknown [id number] 2.16.8 40.1.259372.3.579.2.727 1934 Unknown [id number] 2.16.8 40.1.922499.3.579.2.727 1934 Unknown [id number] 2.16.8 40.1.059093.3.579.2.727 1934 Unknown [id number] 2.16.8 40.1.840796.3.579.2.727 1934 Unknown [id number] 2.16.8 40.1.369912.3.579.2.727 Social History Date Type Detail Facility Unknown if ever smoked [facility] Other Start: 02-05-2023 End: 08-29-2023 Sex Assigned At [facility] Start: 12-11-2022 End: 12-13-2022 Tobacco smoking status Never smoked tobacco (finding) [facility] Tobacco smoking status Never [facility] Comment on above: Quit in 2002 Start: 01-22-2023 End: 10-02-2023 Tobacco smoking status Ex-smoker (finding) [facility] Comment on above: Quit in 2002 Start: 12-13-2022 Tobacco use and exposure Smokeless tobacco non-user [facility] Start: 02-05-2023 End: 08-29-2023 Alcohol intake Current drinker of alcohol (finding) [facility] Start: 02-05-2023 End: 08-29-2023 History of Social function [facility] Start: 1935 Sex Assigned At Not on file N [facility] Functional Status Date Assessment Result Facility 10-23-2023 Functional Status No [facility] 09-30-2023 Functional Status N/A [facility] Clinical Notes 10-13-2021 to 03-17-2024 LaboratoryNatgilda Huston, STEEL FINISHER[employer]CASHI[employer] SUPERVISOR - 08/29/2023 1:00 PM EST Note Date & Type Note Facility 03-17-2024 Note [place] [facility] Reason for visit: Afib. Tachybrady syndrome S/p PPM, s/p LAAO WATCHMAN device 01/21/24 Accompanied by his daughter, Jason. 03/17/2024 He has been doing well. He had his follow-up HELDER on 03/13/24 which should the WATCHMAN device was well seated, without any device thrombus or leak. He c/o white productive cough in the AM - this has been ongoing for the past few years. He is following with hematology for his anemia. Denies c/o CP, dyspnea, orthopnea, PND, LE edema, palpitations, syncope. 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 Device check performed on 06/12/2022 shows thresholds to be good. he is in persistent A. Fib and underwent a single-chamber pacemaker. with [employer] on 10/13/2021 and paced 65% Echocardiogram [...] Echocardiogram performed on 11/30/2020 at [facility] shows an ejection fraction of 55% [...] illicit drug use. PMH: Past Medical History: Diagno (more content not included)... [facility] 03-17-2024 Note Pt is here for forty five day s/p LAAO follow up. He had a helder on 03/13. Denies chest pain. Review of Systems Constitutional: Positive for malaise/fatigue. Negative for chills, decreased appetite, fever and weight gain. Cardiovascular: Positive for dyspnea on exertion. Negative for chest pain, irregular heartbeat, leg swelling, near-syncope, orthopnea, palpitations, paroxysmal nocturnal dyspnea and syncope. Hematologic/Lymphatic: Does not bruise/bleed easily. Neurological: Positive for dizziness. All other systems reviewed and are negative. [facility] 03-13-2024 Note Patient: Ry soria Procedure Information Date/Time: 03/13/24 0900 Procedure: TRANSESOPHAGEAL ECHO (HELDER) Location: [facility] Vascular Lab Clinical information reviewed: Allergies Meds Physical Exam Airway Mallampati: II TM distance: >3 FB Neck ROM: full Cardiovascular Rhythm: irregular Rate: normal Dental Pulmonary Breath sounds clear to auscultation Abdominal Abdomen: soft Bowel sounds: normal Anesthesia Plan ASA 3 other (Conscious sedation) Anesthetic plan and risks discussed with patient. Use of blood products discussed with patient who consented to blood products. Plan discussed with attending. Additional Equipment Requests [facility] 02-12-2024 Note [place] [facility] Reason for visit: Afib. 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 Device check performed on 06/12/2022 shows thresholds to be good. he is in persistent A. Fib and underwent a single-chamber pacemaker. with [employer] on 10/13/2021 and paced 65% Echocardiogram [...] years ago in [place], and was inpt hospital with noted a fib currently on coumadin anticoagulation. Echocardiogram performed on 11/30/2020 at [facility] shows an ejection fraction of 55% [...] on file [employer] (more content not included)... [facility] 01-22-2024 Note 01/22/24 0927 Admission Assessment Questions Verify insurance with patient [...] Status Interested Does the patient have a block and case maker assigned to them through their insurance? No [...] to send link and activate MyChart? No [facility] 01-21-2024 Note Patient: Ry soria Procedure Information Date/Time: 01/21/24 1100 Procedure: Left atrial appendage closure (transvenous) Location: [facility] / [facility] VASCULAR LAB (Cath) Providers: Kelly Morales MD Clinical information reviewed: Allergies Meds Physical Exam Airway Mallampati: III TM distance: >3 FB Neck ROM: full Cardiovascular Rhythm: regular Rate: normal Dental Pulmonary Abdominal Anesthesia Plan ASA 3 other (Conscious sedation.) Anesthetic plan and risks discussed with patient. Use of blood products discussed with patient who consented to blood products. Additional Equipment Requests [facility] 12-04-2023 Note [place] [facility] Subjective Ry Lerner is a [...] 75 QRS DURATIO (more content not included)... [facility] 10-30-2023 Note [place] [facility] - [facility] Reason for visit: Afib. 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 Device check performed on 06/12/2022 shows thresholds to be good. he is in persistent A. Fib and underwent a single-chamber pacemaker. with [employer] on 10/13/2021 and paced 65% Echocardiogram [...] Echocardiogram performed on 11/30/2020 at [facility] shows an ejection fraction of 55% [...] on file Intimate Partner Violence: Unknown (09/19/2023) [place] [employer] [place] Fear of Current or Ex-Partner: Not on file Emotionally Abused: Not on file Physical (more content not included)... [facility] 10-24-2023 Hospital Discharge instructions Patient Education 10/24/2023 14:41:31 [facility](CUSTOM) [place], [place] DISCHARGE INSTRUCTIONS: NASAL SURGERY DO NOT [...] the office with any questions or problems: [phone] ([place] office) The above information has been explained, I have had the opportunity to have my questions answered, and I have received a copy. Responsible [employer] SignatureSurgeon s Signature Nurse s Signature Reviewed: 09/0510/24/2023 14:37:39 Post Op Patient Instructions - FT (CUSTOM) Follow Up Care 10/23/2023 10:02:33 With:Christelle Meyeraixa Address:Unknown When: Unknown Comments:As needed [facility] 10-23-2023 Note [id number] [facility] 09-30-2023 Evaluation + Plan note Future Scheduled TestsAlkaline Phosphatase Isoenzymes 09/30/23. 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 Device check performed on 06/12/2022 shows thresholds to be good. he is in persistent A. Fib and underwent a single-chamber pacemaker. with [employer] on 10/13/2021 and paced 65% Echocardiogram [...] Echocardiogram performed on 11/30/2020 at [facility] shows an ejection fraction of 55% [...] mg DR lindsay (more content not included)... [facility] 05-15-2023 Note Patient here for 3 m [...] All other systems reviewed and are negative. [facility] 01-01-2023 Note [id number] Note [id number]-31[facility]2022 Note [facility] SURGERY Clinical Discharge Summary PERSON INFORMATION Name RY LERNER Age 87 Years 1935 Sex MALE Language Swazi PCP Ezequiel CHAMBERS, John Rodríguez Marital Status Med Service Ambulatory Surgery Acct# Arrival 12/31/2022 08:09:06 Visit Reason SURGERY - RIGHT CARPAL TUNNEL RELEASE Acuity LOS 039 21:33 Address: [address] [place] [id number] Comment: PROVIDER INFORMATION VITALS INFORMATION Vital Sign [...] release capsule) 1 cap(s) Oral every day. [place]'s wort ([place]'s wort oral tablet) 1 tab(s) Oral 2 [...] release capsule) 1 cap(s) Oral every day. [place]'s wort ([place]'s wort oral tablet) 1 tab(s) Oral 2 [...] REASON INCOMPLETE INFORMATION PATIENT EDUCATION INFORMATION Instructions: Deep Water- Post Op Carpal Tunnel (CUSTOM) Follow up: With: Address: When: MARJ PEREZ [address] [place] [address], [address] [place], [place] [phone] Business (1) 01/09/2023 11:00 AM DIAGNOSIS Carpal tunnel syndrome, right Comment: PHYS DOC NOTES [facility] 12-31-2022 Note Procedure: Decompres mary of [...] on: 12/31/2022 09:43 EDT] Ward Martinez DO [facility] 12-12-2022 Note [id number] [facility] 12-10-2022 Note procedure: Decompres mary of [...] on: 12/10/2022 15:46 EDT] Ward Martinez DO [facility] 12-10-2022 Note [facility] SURGERY Clinical Discharge Summary PERSON INFORMATION Name RY LERNER Age 87 Years 1935 Sex MALE Language Swazi PCP Ezequiel CHAMBERS, John Rodríguez Marital Status [facility] Service Ambulatory Surgery Acct# Arrival 12/10/2022 13:13:28 Visit Reason SURGERY - LEFT CARPAL TUNNEL RELEASE Acuity LOS 019 02:57 Address: [address] [place] [address] Comment: PROVIDER INFORMATION VITALS INFORMATION Vital Sign [...] Follow up: With: Address: When: Ward Martinez [address] [place] [address], [address] [place] [phone] Business (1) 12/18/2022 1:30 PM Type Location Start [facility] 12/31/2022 7:30 AM 12/31/2022 8:00 AM Confirmed DIAGNOSIS Carpal tunnel syndrome of left wrist Comment: PHYS DOC NOTES [facility] 06-02-2022 Evaluation note Encounter Date Diagnosis [...] treatment plan. Patient left in stable condition [facility] [employer] Other [id number] History general Narrative - Reported* Type Description Date Medical History HYPERTENSION Medical History STROKE Medical History HEAD INJURY Surgical History PACEMAKER 10/13/2021 Surgical History HERNIA X 2 Surgical History TONSILECTOMY Hospitalization History SEE ABOVE [employer] Other Evaluation + Plan note No data available for this section [facility] Future Appointments Appointment Date:08/27/2023 09:30:00 AM Scheduled Provider: Location:[facility] Appointment Type: Medicare Wellness Subsequent [facility] Future Appointments Appointment Date:10/02/2023 10:00:00 AM Scheduled Provider:Sheng Simms Location:[facility] Appointment Type: Open Future Scheduled Tests Laboratory* Alkaline Phosphatase Isoenzymes 3/4/24 * H. pylori Stool Ag 3/4/24 * Ferritin 3/4/24 * Iron Level 3/4/24 [facility] Evaluation + Plan note Future Appointments Appointment Date:10/24/2023 02:30:00 PM Scheduled Provider: Location:[facility] Appointment Type:Surgery FT Future Scheduled Tests Laboratory* Alkaline Phosphatase Isoenzymes 3/4/24 * H. pylori Stool Ag 3/4/24 * Ferritin 3/4/24 * Iron Level 3/4/24 [facility] Diagnosis Other atopic dermatitis- Primary Seborrheic keratosis [facility] No data available for this section [facility] No data available for this section [facility] Summary Purpose Family History No [...] and content) DATE CREATED AUTHOR 01/26/2022 [facility] DATE CREATED AUTHOR AUTHOR'S ORGANIZ ATION 04/25/2022 [facility] DATE CREATED AUTHOR AUTHOR'S ORGANIZ ATION 01/06/2023 [facility] DATE CREATED AUTHOR AUTHOR'S ORGANIZ ATION 01/06/2023 [facility] DATE CREATED AUTHOR AUTHOR'S ORGANIZ ATION 09/15/2023 [facility] DATE CREATED AUTHOR AUTHOR'S ORGANIZ ATION 10/24/2023 [facility] EPIC DATE CREATED AUTHOR AUTHOR'S ORGANIZ ATION 01/24/2024 [facility] DATE CREATED AUTHOR AUTHOR'S ORGANIZ ATION 03/22/[address] 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 [facility] [place] [address] PCP - General Family Medicine 12/10/22 FOR [...] BE BASED ON THE PRIMARY CLINICAL RECORDS. [email or web address] [facility]. provides no warranty or guarantee of the accuracy or completeness of information in this document.
[2024-05-26 09:57] LABS: Hematocrit 29.8 % (42.0-54.0); Hemoglobin 9.8 g/dL (14.0-18.0); Mean Corpuscular HGB Conc 32.9 g/dL (29.9-35.2); Mean Corpuscular Hemoglobin 33.7 pg (25.9-34.0); Mean Corpuscular Volume 102.4 fL (80.0-94.0); Mean Platelet Volume 10.2 fL (9.5-13.5); Platelet Count 113 10^3/uL (150-450); Red Blood Count 2.91 10^6/uL (4.70-6.10); Red Cell Distribution Width 14.3 % (11.0-15.0); White Blood Count 3.4 10^3/uL (4.0-11.0)
[2024-05-26 10:29] LABS: Anisocytosis 1+; Lymphocytes Absolute Manual 0.44 10^3/uL (1.20-3.80); Ovalocytes 1+; Segmented Neut Absolute Manual 2.55 10^3/uL (1.4-6.5)
[2024-05-26 10:33] LABS: Percent Iron Saturation 30.1 %
== END 2024-05-26 09:37 | disposition home or self-care (01) ==
LOC: LAB 09:37
PROVIDERS: PCP Nurse Practitioner; Visit Provider Internal Medicine Hematology & Oncology
DX: D64.9 Anemia, unspecified (principal); R91.1 Solitary pulmonary nodule; Q61.00 Congenital renal cyst, unspecified; D50.9 Iron deficiency anemia, unspecified; K90.9 Intestinal malabsorption, unspecified; D47.2 Monoclonal gammopathy; C90.00 Multiple myeloma not having achieved remission
CPT/HCPCS: 36415; 82728; 83540; 83550; 85007; 85027

== ENCOUNTER 2024-06-09 07:32 | Outpatient (RCR) | payer MEDICARE, SELFPAY ==
--- OUTSIDE RECORDS SUMMARY | 2024-06-09 07:35 | XMS_ITS | CCD ---
Author Organization [facility] Care Team Providers Care Devops Consultant Name Role Phone UNKNOWN, PHYSICIAN Referring Unavailable [...] Attending Unavailable ADDIE HUSTON Attending Unavailable SHENG LAOGS Referring Unavailable TIMMIS, CHRISTELLE H Attending Unavailable [...] Propensity to adverse reactions to drug (disorder) [facility] Repository Medications Current Medications Medication [...] Daily, # 90 tab(s), Refills(s) 1, Pharmacy: [facility], 179, cm, 09/03/23 10:34:00 EST, Height/Length [...] Daily, # 90 tab(s), Refills(s) 1, Pharmacy: [facility], 178, cm, 07/03/23 9:26:00 EST, Height/Length [...] Daily, # 180 cap(s), Refills(s) 3, Pharmacy: [facility], 178, cm, 01/22/23 14:05:00 EDT, Height/Length [...] Other shelter (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 therapy; Translations: [OTH CURRICULUM DEVELOPMENT MANAGER CURRENT DRUG THERAPY] Onset: 3 Episodic Other aftercare (5 sources) Encounter for therapeutic drug level monitoring; Translations: [ENC THERAPEUTC DRUG LEVL MONITORING] Onset: 3 Episodic Other aftercare (1 source) termination clerk (current) use of anticoagulants; Translations: [CURRICULUM DEVELOPMENT MANAGER CURRNT USE ANTICOAGULANTS] Onset: 3 Episodic Other [...] Range Facility Office Visiton 03-17-2024 Follow-up visit [id number] Ry Lerner 1935 M Date Provider Department Center 03/17/2024 KORINA GODOY Family History Family history unknown: Yes Level of Service:72593 [place] OFFICE/OUTPATIENT ESTABLISHED LOW MDM 20 MIN Normal [facility] HPon 03-13-2024 H&P reviewed. The patient was examined and there are no changes to the H&P. Ry Lerner is a 88 y.o. 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 Normal [facility] NURSNOTEon 03-13-2024 NURSNOTE Swallow test passed. No issues Normal [facility] NURSNOTE RN educated pt on d/ c instructions. RN encouraged pt to voice any questions or concerns. Pt verbalizes no questions or concerns at this time. Normal [facility] Telephoneon 03-06-2024 Telephone [id number] Ry Lerner 1935 M Date Provider Department Center 03/06/2024 [facility]EL [facility] V[facility] CT HeartVAS Family History Family history unknown: Yes Normal [facility] 37on 02-12-2024 37 *Will cut amlodipine in half back to 5mg daily to see if this will help your dizziness. *Have lab work done in 2 weeks. *You are scheduled for your follow-up HELDER on 03/13/24 to check the WATCHMAN device. Normal [facility] HPon 02-12-2024 [facility] Reason for visit: Afib. 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 Device check performed on 06/12/2022 shows thresholds to be good. he is in persistent A. Fib and underwent a single-chamber pacemaker. with [employer] on 10/13/2021 and paced 65% [...] stress test about 12 years ago in [place], and was in hospital with noted a fib currently on coumadin anticoagulation. Echocardiogram performed on 11/30/2020 at [facility] shows an ejection fraction of 55% [...] file [employer] (more content not included)... Normal [facility] Office Visiton 02-12-2024 Follow-up visit [id number] Ry Lerner 1935 M Date Provider Department Center 02/12/2024 KORINA GODOY [facility] Family History Family history unknown: Yes Level of Service:84661 [place] OFFICE/OUTPATIENT ESTABLISHED MOD MDM 30 MIN Reason for Visit and Comments: Follow-up [199521] - Follow up -indigo Medrano [facility] 30on 01-22-2024 30 Problem: Pain - Adul [...] and maintained or improved Outcome: Progressing Normal [facility] BASIC METABOLIC PANELon 12-28 Anion gap [Moles/Vol] 13 mmol/L Normal 7-20 [facility] Comment on above: Performed By: #### L AB15 #### [facility] HOSPITAL LAB (AKER) [address] [facility] [place] [address] Calcium [Mass/Vol] 9.4 mg/dL Normal 8.6-10.3 [facility] Comment on above: Performed By: #### L AB15 #### [facility] LAB (AKER) [address] [place] [address] Chloride [Moles/Vol] 111 mmol/L High 98-107 [facility] Comment on above: Performed By: #### L AB15 #### [facility] HOSPITAL LAB (BEAKER) [address] [place] [address] CO2 [Moles/Vol] 19 mmol/L Low 21-31 [facility] Comment on above: Performed By: #### L [id number] #### [facility] LAB (BEAKER) [address] [place] [address] Creatinine [Mass/Vol] 1.83 mg/dL High 0.70-1.30 [facility] Comment on above: Performed By: #### L AB15 #### [facility] ([facility]) [address] [place] [address] GLOMERULAR FILTRATION RATE ML/MIN/1.73 SQ M.PREDICTED 34.8 mL/min/1.73m*2 Low >60.0 [facility] Comment on above: Result Comment: The [facility]???s estimated glomerular filtration rate (eGFR) will no [...] individuals. Performed By: #### L AB15 #### [facility] ([facility]) [address] [place] [address] Glucose [Mass/Vol] 103 mg/dL High 70-100 [facility] Comment on above: Performed By: #### L [id number] #### [facility] ([facility]) [address] [place] [address] Potassium [Moles/Vol] 5.2 mmol/L High 3.5-5.1 [facility] Comment on above: Performed By: #### L AB15 #### [facility] ([facility]) [address] [place] [address] Sodium [Moles/Vol] 138 mmol/L Normal 136-145 [facility] Comment on above: Performed By: #### L AB15 #### [facility] ([facility]) [address] [place] [address] Urea nitrogen [Mass/Vol] 50 mg/dL High 7-25 [facility] Comment on above: Performed By: #### L AB15 #### [facility] ([facility]) [address] [place] [address] UREA NITROGEN/CREATININE (MASS RATIO) IN SER/PLAS 27.3 Normal [facility] Comment on above: Performed By: #### L AB15 #### [facility] ([facility]) [address] [place] [address] CBCon 01-22-2024 Erythrocyte distribution width (RBC) [Ratio] 15.0 % Normal 11.5-15.0 [facility] Comment on above: Performed By: #### L [id number] ####[facility] ([facility])[address] [place] [address] ERYTHROCYTE MEAN CORPUSCULAR HEMOGLOBIN CONCENTRATION (G/DL) BY AUTOMATED 31.9 g/dL Low 32.0-35.0 [facility] Comment on above: Performed By: #### L [id number] ####[facility] ([facility])[address] [place] [address] Hematocrit (Bld) [Volume fraction] 26.0 % Low 39.0-55.0 [facility] Comment on above: Performed By: #### L [id number] ####[facility] ([facility])[address] [place] [address] Hemoglobin (Bld) [Mass/Vol] 8.3 g/dL Low 13.0-17.0 [facility] Comment on above: Performed By: #### L [id number] ####[facility] ([facility])[address] [place] [address] MCH (RBC) [Entitic mass] 30.5 pg Normal 27.0-33.0 [facility] Comment on above: Performed By: #### L [id number] ####[facility] ([facility])[address] [place] [address] MCV (RBC) [Entitic vol] 95.6 fL Normal 82.0-98.0 [facility] Comment on above: Performed By: #### L [id number] ####[facility] ([facility] [place] [address] PLATELETS (10*3/UL) IN BLOOD AUTOMATED COUNT 120 10*3/uL Low 150-400 [facility] Comment on above: Performed By: #### L [id number] ####[facility] ([facility])[address] [place] [address] RBC (Bld) [#/Vol] 2.72 10*6/uL Low 4.20-5.70 [facility] Comment on above: Performed By: #### L [id number] ####[facility] ([facility])[address] [place] [address] WBC (Bld) [#/Vol] 3.09 10*3/uL Low 4.00-10.60 [facility] Comment on above: Performed By: #### L [id number] ####[facility] LAB (BEAKER)[address] [place] [address] DSon 01-22-2024 DS - Attestation signed by Kelly Morales MD at 01/22/2024 3:03 PM I discussed the patient on the same date of service as the Non-Physician Provider Gail Watkins NP. Teaching Physician's Revisions: none Admission Admitted 01/21/2024 for Permanent atrial fibrillation ([facility]* Discharge Diagnosis Permanent atrial fibrillation (CMS/HCC) S/p [...] [facility] 40-10-5-3.3 mg tablet Generic drug: heawosbys-asavsjdo-tf r-hyalur omeprazole [address] capsule Commonly known as: PriLOSEC STOP taking these medications warfarin 5 mg tablet Commonly known as: Coumadin Where to Get Your Medications These [facility] [address] [facility] [address] amLODIPine 10 mg tablet aspirin 81 mg [...] epistaxis, history of GI bleeding, presented to [facility] for planned left atrial appendage closure by print production coordinator, Dr. Morales on 01/21/24. Patient underwent successful [...] asymptomatic, no rhythm changes per review of threat monitoring analyst. Discussed with Dr. Morales who recommends to [...] guidance. 5 (more content not included)... Normal [facility] Outside [facility] Correspo ndence01-22-2024 Outside [facility] Correspondence [id number] .00TIFF Normal [facility] 30on 01-21-2024 30 The patient is Moderately [...] injury: Assess patient frequently for physical needs Coats fall precautions as indicated by assessment Identify [...] and prevent overall improvement and discharge Normal [facility] 30 Problem: Pain - Adul t Goal: [...] did make progress toward the following goals. [facility] HPon 01-21-2024 History Of Present Illness Ry [...] a past medical history of Atrial fibrillation ([facility]), Hypertension, and Tachycardia-bradycard ia ([facility]). Surgical History He has a past surgical [...] medical histo (more content not included)... Normal [facility] MRSA/MSSA DNA NASALon 2023 MRSA DNA Positive Abnormal Negative [facility] Comment on above: Order Comment: Testi ng [...] preclude nasal colonization. Performed By: #### L [id number] ####[facility] (BEAKER)[address] [place] [address] MSSA DNA Negative Normal Negative [facility] Comment on above: Order Comment: Testi ng [...] preclude nasal colonization. Performed By: #### L [id number] ####[facility] LAB (BEAKER)[address] [place] [address] NURSNOTEon 01-21-2024 NURSNOTE Report given to CORI Linton from RICKY Doyle Any medications or safety alerts were reviewed. Any pending diagnostics and notifications were also reviewed, as well as any safety concerns or issues, abnormal labs, abnormal imagining, and abnormal assessment findings. Questions were answered. Normal [facility] NURSNOTE Bedside swallow stud y completed and passed. Normal [facility] NURSNOTE CHG wipes completed. Normal [facility] TYPE AND SCREENon 01-21-2024 AB SCREEN Negative Normal [facility] Comment on above: Performed By: #### L [id number] ####[facility] BLOOD BANK, ABO group Nom (Bld) O Normal [facility] Comment on above: Performed By: #### L [id number] ####[facility] BLOOD BANK, RH TYPE IN BLOOD Positive Normal [facility] Comment on above: Performed By: #### L [id number] ####[facility] BLOOD BANK, Prep for Procedureon 024 Prep for Procedure [id number] Ry Lerner 1935 M Date Provider Department [facility] Family History Family history unknown: Yes Normal [facility] Echocardiographyon Echocardiography [id number] .00TIFF Normal [facility] ANESon 01-03-2024 ANES - Attestation signed by [...] 01/03/24 1230 Procedure: TRANSESOPHAGEAL ECHO (HELDER) Location: [facility] Vascular Lab Clinical information reviewed: [facility] Meds Physical Exam Airway Mallampati: III Neck ROM: full Cardiovascular Rhythm: regular Rate: normal Dental Pulmonary Breath sounds clear to auscultation Abdominal Abdomen: soft Anesthesia Plan ASA 3 other (Moderate anesthesia ) Anesthetic plan and risks discussed with patient. Use of blood products discussed with patient who consented to blood products. Additional Equipment Requests Normal [facility] HPon 01-03-2024 - Attestation signed by Xochitl [...] longstanding persistent atrial fibrillation with an elevated XNX0SN3-AVLz score of 6 due to age, hypertension, [...] a past medical history of Atrial fibrillation ([facility]), Hypertension, and Tachycardia-bradycard ia ([facility]). Surgical History He has a past surgical [...] Cardiac device check - In Clinic 08/02/2023 [id number] Final ROS: 10 organ systems have been [...] addressed. Trenton William MD Cardiovascular disease fellow [facility] NURSNOTEon 01-03-2024 NURSNOTE Bedside swallow stud y completed and passed. [facility] NURSNOTE RN educated pt on d/ c instructions. RN encouraged pt to voice any questions or concerns. Pt verbalizes no questions or concerns at this time. Pt was wheeled off of unit with all of belongings. [facility] Telephoneon 12-25-2023 Telephone [id number] Toi Lerneryin Frausto 1935 M Date Provider Department Center 12/25/2023 [facility]EL [facility] Heart[facility]AS Family History Family history unknown: Yes [facility] Family Medicine Office/Clini c Noteon 12-10-2023 Family [...] Daily, # 90 tab(s), Refills(s) 1, Pharmacy: [facility], 179, cm, 09/03/23 10:34:00 EST, Height/Length Dosing, 100.9, kg, 09/03/23 10:34:00 EST, Weight Dosing amlodipine, 5 mg = 1 tab(s), Oral, Daily, X 90 day(s), # 90 tab(s), Refills(s) 3, Pharmacy: [facility], 180, cm, 12/03/23 10:39:00 EDT, Height/Length [...] # 90 cap(s), Refills(s) 3, [facility]acy: [facility], 180, cm, 12/03/23 10:39:00 EDT, Height/Length [...] Diabetes me (more content not included)... Normal [facility] Comment on above: Result Comment: Elec tronically Signed By: Ezequiel CHAMBERS, John Guan.br\Date and Time Signed: 12/10/23 12:54 EDT Office Visiton 12-04-2023 Follow-up visit [id number] Ry Lerner 1935 M Date Provider Department Center 12/04/2023 KELLY MARTIN Family History Family history unknown: Yes Level of Service:88690 [place] OFFICE/OUTPATIENT ESTABLISHED HIGH MDM 40 MIN Normal [facility] Patient Educationon 12-03-19 24 Patient Education Orthopedics [...] these instructions at home: Medicines ? Take malo-wxg-owccopa and prescription medicines only as told by [...] who ariza (more content not included)... Normal [facility] RAD - CT Reporton 11-26-2023 RAD - CT Report [id number]#1 .00TIFF Normal [facility] RAD - CT Reporton 11-15-2023 RAD - CT Report [id number] .00TIFF Normal [facility] Physician Orderon 10-31-2023 Physician Order [id number]#1 .00TIFF Normal [facility] Ambulatory Visit Summaryon 0 10-30-2023 Ambulatory Visit [...] choosing us for your care. Normal [facility] Family Medicine Office/Clini c Noteon 10-30-2023 Family Medicine Office/Clinic Note HPI Staff Ry is a 88 year old male presenting for follow up Called 10/29/23 for records he was there for medication management, no record of CT scan . pt states [facility] had no order for CT of abdomen and pelvis. daughter would like to discuss watchman . Seen pilot can router today. Hemorid burst on Saturday. Daughter from [...] pelvis was ordered by September 29 but [facility] never received the order. new order sent to [facility] 4. BMI 30.0-30.9,adult (Z68.30: Body mass index [...] influenza vi (more content not included)... Normal [facility] Comment on above: Result Comment: Elec tronically Signed By: Sheng Simms\.br\Date and Time Signed: 10/30/23 16:04 EDT Office Visiton 10-30-2023 Follow-up visit [id number] Ry Lerner 1935 M Date Provider Department Center 10/30/2023 KORINA GODOY [facility] Family History Family history unknown: Yes Level of Service:77615 [place] OFFICE/OUTPATIENT ESTABLISHED MOD MDM 30 MIN Reason for Visit and Comments: Follow-up [479192] - 6 month follow up Normal [facility] Orders Onlyon 10-30-2023 Orders Only [id number] Ry Lerner 1935 M Date Provider Department Center 10/30/2023 JULES NGUYEN BETH [facility] Family History Family history unknown: Yes Normal [facility] Lab Reportson 10-29-2023 Lab Reports [id number]#1 .00TIFF Normal [facility] IntraOperative Documentson 0 10-28-2023 IntraOperative Documents [id number] .00TIFF Normal [facility] Consent for Anesthesiaon Consent for Anesthesia [id number]# 1.00TIFF Normal [facility] Discharge Instructionson Discharge Instructions [id number]# 1.00TIFF Normal [facility] IntraOperative Documentson 0 10-25-2023 IntraOperative Documents [id number]# 1.00TIFF Normal [facility] Main OR Intraoperative Recor don 10-25-2023 Main OR Intraoperative Record IntraOp Document Type FT Summary Primary Physician: Christelle Salazar MD Finalized Date/Time: 10/25/23 13:48:34 Pt. Name: RY LERNER/Sex: 1935 Male Med Rec #: [id number] Physician: Christelle Salazar MD Financial #: [id number] Pt. 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 Yes Dry Last [...] Right Arm (more content not included)... Normal [facility] Operative Reporton Operative Report SURGERY DATE: 10/24/2023 PREOPERATIVE DIAGNOSIS: Right epistaxis POSTOPERATIVE DIAGNOSIS: Right epistaxis OPERATION: Right nasal endoscopy and cautery ANESTHESIA: General endotracheal COMPLICATIONS: None FINDINGS: Extensive excoriation of the right anterior middle turbinate and nasal septum INDICATIONS: This 88-year-old man presented with recurrent epistaxis of the right nose. His nose was packed last week at [facility], and then when he returned for [...] Christelle Salazar Jr., M.D. ca Dictated: 10/24/2023 [id number] Transcribed: 10/24/2023 cc:JAXON Shane [facility] Comment on above: Result Comment: Elec tronically Signed By: Marie CHAMBERS, Christelle H\.br\Date and Time Signed: 10/25/23 07:09 EDT Outside Recordson 10-25-2023 Outside Records [id number]# 1.00TIFF [facility] Preoperative Documentson Preoperative Documents [id number]# 1.00TIFF [facility] Progress Note-Physicianon Progress Note-Physician Patient: RY LERNER [...] meets criteria ( To home ). 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 Abnormal liver ultrasound / SNOMED CT 8035548004 / Confirmed Abnormal ultrasound of kidney / SNOMED CT 1970427216 / Confirmed Rotator cuff tear / SNOMED CT 4262290097 / Confirmed Nodule of kidney / SNOMED CT 453209874 / Confirmed Abnormal x-ray of cervical spine / SNOMED CT 733598728 / Confirmed Liver nodule / SNOMED CT 8410868516 / Confirmed HTN (hypertension) / SNOMED CT 0133983006 / Confirmed No details in previous records Hyperlipidemia / SNOMED CT 95830033 / Confirmed no details in previous chart Bleeding ulcer / SNOMED CT 3112284492 / Confirmed Hemoperitoneum / SNOMED CT 7505485073 / Confirmed No details in previous medical record Former cigar smoker / SNOMED CT 745558353 / Confirmed Eczema / SNOMED CT 62329184 / Confirmed Cyst of pancreas / SNOMED CT 80498962 / Confirmed Abnormal chest CT / SNOMED CT 3037668668 / Confirmed Contusion of lung / SNOMED CT 850072083 / Confirmed No details in previous records Skin texture changes / SNOMED CT 189996835 / Confirmed Acute cerebrovascular accident (CVA) / SNOMED CT 938684071 / Confirmed Cardiac pacemaker / SNOMED CT 4794808485 / Confirmed Dysrhythmias / SNOMED CT 3209801416 / Confirmed Tachy, Ryan BMI 30.0-30.9,adult / SNOMED CT 384027250 / Confirmed AF (atrial fibrillation) / SNOMED CT 52806128 / Confirmed Anemia / SNOMED CT 127934176 / Confirmed FE DEF Anemia Canceled: Aspiration pneumonia / SNOMED CT 6171235127 Histories Procedure history: Colonoscopy (861929723) on 12/12/2022 at 87 Years. Carpal tunnel release (730374300) on 12/10/2022 at 87 Years. Comments: 12/11/2022 11:34 HOWIET - [facility] Left Cardiac pacemaker (79205541) in the month of 09/2021 at 86 Years. Colonoscopy (129431624) in the month of 02/2011 at 75 Years. Transurethral resection of prostate (TURP) syndrome (5332471653) in 1995 at 60 Years. Hernia (6085829468) in 1993 at 58 Years. Tonsillectomy with adenoidectomy (57873942). Social History Social & Psychosocial Habits Alcohol [...] adequate air exchange. Cardiovascular: Regular rhythm. Plan [place] [employer] Anesthesi[employer] (ASA) physical status classification: Class III. Anesthetic Preoperative Plan: Anesthesia General. Normal [facility] Comment on above: Result Comment: Elec tronically Signed By: Ward Kraus Jr, DO\.br\Date and Time Signed: 10/25/23 09:03 EDT Consent for Treatmenton 09-27 Consent for Treatment [id number]#1 .00TIFF [facility] Discharge Instructionson Discharge Instructions RY LERNER :1935 [...] cuff tear Skin texture changes [employer] [place], [place] DISCHARGE INSTRUCTIONS: NASAL SURGERY DO NOT [...] the office with any questions or problems: [phone] ([place] office) The above information has been explained, [...] We want (more content not included)... Normal [facility] Comment on above: Result Comment: Elec tronically Signed By: Andie PERSAUD, Yann Estevez\.br\Date and Time Signed: 10/24/23 14:43 EDT H&P Updateon 10-24-2023 H&P Update [id number]# 1.00TIFF Normal [facility] Inpatient Patient Summaryon 10-24-2023 Inpatient Patient Summary [place] [id number] [facility] Clinical Discharge Instructions PERSON INFORMATION Name: LERNERRY [...] Tablets By Mouth every day., managed per [facility] Comment: Mitchell [facility] Main OR PACU I Recordon 09-27 Main OR PACU I Record PACU Phase I Docum ent Type FT Summary Primary Physician: Christelle Salazar MD Finalized Date/Time: 10/24/23 15:11:48 Pt. Name: RY LERNER Benji/Sex: 1935 Male Med Rec #: [id number] Physician: Christelle Salazar MD Financial #: [id number] Pt. Type: A Room/Bed: [facility]/ Admit/Disch: 10/24/23 12:15:19 - Institution: Case [...] By: Cristina Almazan RN 10/24/23 15:11 Normal [facility] Main OR Preoperative Recordo n 10-24-2023 Main OR Preoperative Record PreOp Document Type FT Summary Primary Physician: Christelle Salazar MD Finalized Date/Time: 10/24/23 13:53:33 Pt. Name: RY LERNER/Sex: 1935 Male Med Rec #: [id number] Physician: Christelle Salazar MD Financial #: [id number] Pt. Type: A [facility] Admit/Disch: 10/24/23 12:15:19 - Institution: Case [...] By: Damion Irving RN 10/24/23 13:53 Normal [facility] Monitor Recordon 10-24-2023 Monitor Record [id number]# 1.00TIFF Normal [facility] Monitor Record [id number]# 1.00TIFF Normal [facility] Outpatient Surgery Discharge Instructionon 10-24-2023 Outpatient Surgery Discharge Instruction [place] [id number] Patient Discharge Instructions PERSON INFORMATION Name: RY [...] Information: You may receive a survey from [employer] asking you to rate your care experience. Your feedback is important and will help us understand what we do well and how we can improve the quality of care we provide to you, your loved ones and our community. It?s an honor to serve you. Thank you for choosing [facility] HERE ARE THE MEDICATION CHANGES THAT OCCURRED [...] Tablets By Mouth every day., managed per [facility] PATIENT EDUCATION INFORMATION Instructions: Medication Leaflets: Normal [facility] Patient Education - Texton 0 10-24-2023 Patient Education - Text [place], [place] Royal Granger, DO DISCHARGE INSTRUCTIONS: NASAL [...] medications as prescribed. Use the Nasal Relief Dixon (decongestant) 2 sprays each nostril every hours. Use the Nasal Saline Dixon 2 sprays each nostril every 2 hours. [...] the office with any questions or problems: [phone] ([place] office) The above information has been explained, I have had the opportunity to have my questions answered, and I have received a copy. Responsible [employer] Signature Surgeon?s Signature Nurse?s Signature Reviewed: 09/05 Normal [facility] BMPon 10-23-2023 Anion gap [Moles/Vol] 11 mmol/L Normal 6-16 [facility] Comment on above: Performed By: #### 1 [id number], [id number] ####[facility] [address] [place] [address] Calcium [Mass/Vol] 10.5 mg/dL Normal 8.9-11.1 [facility] Comment on above: Performed By: #### 1 [id number], [id number] ####[facility] [address] [place] [address] Chloride [Moles/Vol] 110 mmol/L Normal 101-111 [facility] Comment on above: Performed By: #### 1 [id number], [id number] ####[facility] [address] [place] [address] CO2 [Moles/Vol] 25 mmol/L Normal 21-31 [facility] Comment on above: Performed By: #### 1 [id number], [id number] ####[facility] [address] [place] [address] Creatinine [Mass/Vol] 2.2 mg/dL High 0.5-1.3 [facility] Comment on above: Performed By: #### 1 [id number], [id number] ####[facility] [address] [place] [address] Glucose [Mass/Vol] 111 mg/dL Normal 55-199 [facility] Comment on above: Performed By: #### 1 [id number], [id number] ####[facility] [address] [place] [address] Potassium [Moles/Vol] 5.3 mmol/L Normal 3.5-5.3 [facility] Comment on above: Performed By: #### 1 7964973, [id number] ####[facility] [address] [place] [address] Sodium [Moles/Vol] 141 mmol/L Normal 135-145 [facility] Comment on above: Performed By: #### 1 6939782, [id number] ####[facility] [address] [place] [address] Urea nitrogen [Mass/Vol] 60 mg/dL High 5-21 [facility] Comment on above: Performed By: #### 1 2843359, 5336027 ####[facility] [address] [place] [address] Urea nitrogen/Creatinine [Mass ratio] 27 No Units High 10-20 [facility] Comment on above: Performed By: #### 1 7166903, [id number] ####[facility] [address] [place] [address] CBC w/ Auto Diffon 4 Basophils/100 WBC (Bld) 0.6 % Normal 0.0-2.0 [facility] Comment on above: Performed By: #### 2 [id number], [id number] #### [facility] [address] [place] [address] Basophils/Leukocytes Auto (Bld) [Pure # fraction] 0.0 E9/L Normal 0.0-0.2 [facility] Comment on above: Performed By: #### 2 944311, [id number] #### [facility] [address] [place] [address] Eosinophils (Bld) [#/Vol] 0.2 E9/L Normal 0.0-0.5 [facility] Comment on above: Performed By: #### 2 [id number], [id number] #### [facility] [address] [place] [address] Eosinophils/100 WBC (Bld) 3.7 % Normal 0.0-8.0 [facility] Comment on above: Performed By: #### 2 298207, [id number] #### [facility] [address] [place] [address] Erythrocyte distribution width (RBC) [Ratio] 14.4 % High 10.9-14.2 [facility] Comment on above: Performed By: #### 2 611671, [id number] #### [facility] [address] [place] [address] Hematocrit (Bld) [Volume fraction] 27.9 % Low 37.7-49.0 [facility] Comment on above: Performed By: #### 2 256431, [id number] #### [facility] [address] [place] [address] Hemoglobin (Bld) [Mass/Vol] 9.0 g/dL Low 13.5-17.5 [facility] Comment on above: Performed By: #### 2 511613, [id number] #### [facility] Laboratory [address] [place] [address] Lymphocytes (Bld) [#/Vol] 0.6 E9/L Low 1.0-4.0 [facility] Comment on above: Performed By: #### 2 786139, [id number] #### [facility] Laboratory [address] [place] [address] Lymphocytes/100 WBC (Bld) 14.4 % Normal 14.0-50.0 [facility] Comment on above: Performed By: #### 2 448996, [id number] #### [facility] [address] [place] [address] MCH (RBC) [Entitic mass] 31.0 pg Normal 27.0-34.0 [facility] Comment on above: Performed By: #### 2 766442, [id number] #### [facility] [address] [place] [address] MCHC (RBC) [Mass/Vol] 32.4 g/dL Normal 31.4-36.0 [facility] Comment on above: Performed By: #### 2 791279, [id number] #### [facility] [address] [place] [address] MCV (RBC) [Entitic vol] 95.7 fL Normal 80.0-100.0 [facility] Comment on above: Performed By: #### 2 359419, [id number] #### [facility] [address] [place] [address] Monocytes (Bld) [#/Vol] 0.4 E9/L Normal 0.2-1.0 [facility] Comment on above: Performed By: #### 2 554823, [id number] #### [facility] [address] [place] [address] Neutrophils (Bld) [#/Vol] 3.0 E9/L Normal 2.0-7.5 [facility] Comment on above: Performed By: #### 2 965465, [id number] #### [facility] Laboratory [address] [place] [address] Neutrophils/100 WBC (Bld) 72.5 % Normal 36.0-75.0 [facility] Comment on above: Performed By: #### 2 097648, [id number] #### [facility] Laboratory [address] [place] [address] Platelet 187.0 E9/L Normal 150.0-500.0 [facility] Comment on above: Performed By: #### 2 079148, [id number] #### [facility] [address] [place] [address] Platelet mean volume (Bld) [Entitic vol] 8.3 fL Normal 6.4-10.8 [facility] Comment on above: Performed By: #### 2 353738, [id number] #### [facility] [address] [place] [address] RBC (Bld) [#/Vol] 2.9 E12/L Low 4.3-5.9 [facility] Comment on above: Performed By: #### 2 947990, [id number] #### [facility] [address] [place] [address] WBC corrected for nucl RBC Auto (Bld) [#/Vol] 4.1 E9/L Normal 4.0-11.0 [facility] Comment on above: Performed By: #### 2 213211, [id number] #### [facility] [address] [place] [address] CHEMISTRYOrdered By: SYSTEM SYSTEM on 10-23-2023 Anion [...] 30.4 s Normal 25.1 - 36.5 second(s) [facility] Auto Coag Comment on above: Interpretive Data: [...] the same coagulation reagent and instrumentation as [facility]. Currently there are no coagulation studies available worldwide for children to 14 days, and no normal ranges. Heparin therapeutic range (represented by Anti-Factor Xa activity of 0.2 - 0.4 U/mL) corresponds to PTT of 56.6 - 109.0 sec. INR Coag (PPP) [Relative time] 1.13 {INR} Invalid Interpretation Code [facility] Auto Coag Comment on above: Interpretive Data: I NR results are specifically intended to assess patients stabilized on long-term Anticoagulation therapy suggested INR s Less Intensive Anticoagulation 2.0 3.0 Conventional Range 3.0 4.5 PT Coag (PPP) [Time] 12.7 s High 9.4 - 1 2.5 second(s) [facility] Auto Coag Comment on above: Interpretive Data: [...] the same coagulation reagent and instrumentation as [facility]. Currently there are no coagulation studies available worldwide for children to 14 days, and no normal ranges. Consent for Procedure/Surger yon 10-23-2023 Consent for Procedure/Surgery [id number]# 1.00TIFF [facility] Consent for Treatmenton 09-27 Consent for Treatment [id number]#1 .00TIFF [facility] HEMATOLOGYOrdered By: SYSTEM SYSTEM on 10-23-2023 Basophils/100 [...] Remisol Heme Outside Recordson 10-23-2023 Outside Records [id number]# 1.00TIFF Normal [facility] PT & PTTon 10-23-2023 aPTT Coag (PPP) [Time] 30.4 second(s) Normal 25.1-36.5 [facility] Comment on above: Result Comment: Para meter [...] the same coagulation reagent and instrumentation as [facility]. Currently there are no coagulation studies available worldwide for children to 14 days, and no normal ranges. Heparin therapeutic range (represented by Anti-Factor Xa activity of 0.2 - 0.4 U/mL) corresponds to PTT of 56.6 - 109.0 sec. Performed By: #### 2 [id number], [id number] #### [facility] Laboratory [address] [place] [address] INR Coag (PPP) [Relative time] 1.13 {INR} Invalid Interpretation Code [facility] Comment on above: Result Comment: INR results are specifically intended to assess patients stabilized on long-term Anticoagulation therapy suggested INR?s ?Less Intensive Anticoagulation? 2.0 ? 3.0 Conventional Range 3.0 ? 4.5 Performed By: #### 2 [id number], [id number] #### [facility] [address] [place] [address] PT Coag (PPP) [Time] 12.7 second(s) High 9.4-12.5 [facility] Comment on above: Result Comment: 15 d [...] the same coagulation reagent and instrumentation as [facility]. Currently there are no coagulation studies available worldwide for children to 14 days, and no normal ranges. Performed By: #### 2 546487, [id number] #### [facility] Laboratory [address] [place] [address] Physician Orderon 10-23-2023 Physician Order [id number] #1.00TIFF Normal [facility] XR Chest 2 Viewson XR Chest 2 [...] mGy = na DAP = na Normal [facility] eGFRon 10-23-2023 eGFR 28 mL/min/1.73 m2 Low >=59 [facility] Comment on above: Order Comment: Order added by Discern Expert. Performed By: #### 1 [id number], [id number] ####[facility] [address] [place] [address] ED Note-Physicianon 10-21-19 ED Note-Physician [id number]#1 .00TIFF Normal [facility] Lab Reportson 10-16-2023 Lab Reports [id number]#1 .00TIFF Normal [facility] Ambulatory Visit Summaryon 0 10-02-2023 Ambulatory Visit [...] choosing us for your care. Normal [facility] Family Medicine Office/Clini c Noteon 10-02-2023 Family Medicine Office/Clinic Note HPI Staff Ry is an 87 year old male presenting for 1 month follow up [place] 09/04/23 Liver nodule, U/s of liver was ordered and referred to GI at [facility], labs drawn pt seen seen training manager 09/30/[address] with [...] pt planning to take a trip to [place] tomorrow and will be gone for 9 [...] vaccine, inactivated 04/14/20 (more content not included)... [facility] Comment on above: Result Comment: Elec [...] Recorded SARS-CoV-2 (COVID-19 (more content not included)... [facility] Comment on above: Result Comment: Elec tronically Signed By: Greg CHAMBERS, Mary Jane Eddy\.br\Date and Time Signed: 09/30/23 14:51 EST Consultation Noteon 09-09-19 24 Consultation Note [id number]#1 .00TIFF [facility] Physician Referralon 024 Physician Referral [id number]#1 .00TIFF [facility] Family Medicine Office/Clini c Noteon 09-04-2023 Family Medicine Office/Clinic Note HPI Staff Ry is a 87 year old male presenting to review x-rays Pt has x-rays done on 08/28/23, CT chest on 08/30/[address] right shoulder 09/02/23 Pt needs refill on furosemide pt states he went to vessel scrapper Dr 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 pt referred to GI at [facility]. liver enzymes ordered as well. pt will have labs drawn at [facility]. RTC 1 month to touch base with all of the additional testing and referral we have placed. Ordered: [facility] Internal Ambulatory Referral 2. Nodule of kidney [...] stools and HGB dropped critically low Ordered: [facility] Internal Ambulatory Referral 5. Abnormal x-ray of cervical spine (R93.7: Abnormal findings on diagnostic imaging of other parts of musculoskeletal system) CT of cervical spine ordered 6. Rotator cuff tear (M75.100: Unspecified rotator cuff tear or rupture of unspecified shoulder, not specified as traumatic) pt informed that he has an old rotator cuff tear. pt declines referral to ortho at this time Ordered: [facility] External Ambulatory Referral 7. BMI 31.0-31.9,adult (Z68.31: [...] Recorded influenza virus (more content not included)... [facility] Comment on above: Result Comment: Elec tronically Signed By: Sheng Simms\.br\Date and Time Signed: 09/04/23 12:27 EST Physician Referralon 024 Physician Referral [id number]#1 .00TIFF [facility] Ambulatory Visit Summaryon 0 09-03-2023 Ambulatory [...] 10:00 AM EST With: Sheng Simms Where: [facility] Lab Reportson 09-03-2023 Lab Reports [id number]#1 .00TIFF [facility] Physician Orderon 09-03-2023 Physician Order [id number]#1 .00TIFF [facility] Consultation Noteon 08-30-19 Consultation Note [id number]#1 .00TIFF [facility] Physician Orderon 08-30-2023 Physician Order [id number]#1 .00TIFF [facility] Physician Orderon 08-29-2023 Physician Order [id number]#1 .00TIFF [facility] Physician Order [id number]#1 .00TIFF [facility] RAD - MISCon 08-29-2023 RAD - MISC [id number]# 1.00TIFF [facility] RAD - MISC [id number]# 1.00TIFF [facility] RAD - MISC [id number]#1 .00TIFF [facility] Ambulatory Visit Summaryon 0 08-28-2023 Ambulatory [...] 10:20 AM EST With: Sheng Simms Where: [facility] Medicine [place] Normal [facility] Family Medicine Office/Clini c Noteon 08-28-2023 Family [...] has a difficult (more content not included)... [facility] Comment on above: Result Comment: Elec tronically Signed By: Sheng Simms\.br\Date and Time Signed: 08/28/23 13:35 EST\.br\Electronically Co-Signed By: Rene Brannon\.br\Date and Time Co-Signed: 08/28/23 13:09 EST Formson 08-28-2023 Forms [id number]#1 .00TIFF [facility] Patient Educationon 08-28-19 Patient Education Caregiving [...] night-lights. ? Place frequently used items in gfnb-tn-iopgu places. Lower the shelves around your home [...] the way. ? Do not use floor persian or wax that makes floors slippery. If [...] include working with a physical therapist or call center trainer to improve your strength, balance, and endurance. Where to find more information ? Centers for Disease Control and Prevention, [place]: www.cdc.gov ? National [place] on Aging: www.ed.nih.gov Contact a health care [...] health ca (more content not included)... Normal [facility] Physician Referralon 023 Physician Referral [id number]# 1.00TIFF [facility] Ambulatory Visit Summaryon 1 09-03-2022 Ambulatory [...] Follow-Up Appointments Saturday 11:00 AM EST Where: [facility] [place] Normal [facility] Family Medicine Office/Clini c Noteon 07-03-2023 Family [...] and CMP drawn at that visit. Ordered: [facility] External Ambulatory Referral [facility] External Ambulatory Referral 2. Skin texture changes (R23.4: Changes in skin texture) pt has a couple areas on his face that have changes in shape and color and will come off or flake off then comes back. Dr. Silva froze a couple areas a few years ago. will refer to dermatology to manage these areas and his eczema. Ordered: [facility] [place] Ambulatory Referral [facility] External Ambulatory Referral 3. BMI 31.0-31.9,adult (Z68.31: Body mass index [BMI] 31.0-31.9, adult) BMI education complete Ordered: Body Mass Index (BMI) documented 3008F Current tobacco non-user 1036F Depression Screening Negative 3352F [facility] External Ambulatory Referral [facility] External Ambulatory Referral Influenza immunization status assessed [...] tobacco non-user 1036F Depression Screening Negative 3352F [facility] External Ambulatory Referral [facility] External Ambulatory Referral Influenza immunization status assessed [...] tobacco non-user 1036F Depression Screening Negative 3352F [facility] External Ambulatory Referral [facility] External Ambulatory Referral Influenza immunization status assessed [...] changes Historical (more content not included)... Normal [facility] Comment on above: Result Comment: Elec tronically Signed By: Sheng Simms.viviane\Date and Time Signed: 07/03/23 12:49 EST Lab Reportson 07-02-2023 Lab Reports [id number] Normal [facility] Office Visiton 05-15-2023 Follow-up visit [id number] Ry Lerner Lisbet 1935 M Date Provider Department Center 05/15/2023 [place]-CHAR[facility]SE GAY [facility] Family History Family history unknown: Yes Level of Service:24560 [place] OFFICE/OUTPATIENT ESTABLISHED MOD MDM 30-39 MIN Normal [facility] Physician Referralon 023 Physician Referral [id number]#1 .00CD:127 Normal [facility] Consultation Noteon 03-11-20 Consultation Note [id number]#1 .00CD:127 [facility] Office/Clini c Noteon 01-23-2023 [...] at this time. Patient was treated at [facility]. Questions/Concerns: History of Present Illness pt [...] to follow up with Dr. Vargas in [place] and also placed a GI consult. since then his so he has not made any of those appointments. pt wants to stop taking lasix. encouraged daughter to make appointment with Dr. Vargas and let him decide if he can stop lasix. will draw pt/ptt in office today and compare to labs that were drawn in [place] end of November. still waiting for those labs. will call pt tomorrow once we have lab results. omeprazole refills also sent to pharmacy. they will hold off on GI referral until they get meds situated with pilot can router. Dr. Vargas's office was called notified. and [...] 06/13/2020 Recorded (more content not included)... Normal [facility] Comment on above: Result Comment: Elec tronically Signed By: Brissa BAKERY ASSOCIATE, Sheng L\.br\Date and Time Signed: 01/23/23 16:36 EDT Coding Summaryon 01-01-2023 Coding Summary HTMLBase 64 JhdbleqcUAw1kAl+PGhlY WQ+CD2KTYZsN52xvEGigL 5uJ5CJMKcKQevvDWFAUPn CXmRytfGwMJ6bcBSmTKYe IC8+NF4wGIWhGmfjaEKba 0A6bCN0E76qyc1cBOaglN A9SMTlHdGezkwpe3dpkFo 6IDcuNmluOyBt GSCpfE46GFL8zU22Tr18l KLecMAkp5hnyPg0DcEtRQ MnKAI2fFguHBepz1GuBET gS13vdNAfj2F8 TQZhdIzanVXlBnOjpKO0r K2hFEjvckotu2fxblahFf y4pp91zQIio1J9eBO4X5R gxcZ2QPZrdMQg VugmpYUNcW8gocvzf4azr dyaLuBdQNKjPPs4JYt2LC TinOytRiDoSS12VBG2LLI jcpQiI9KnFGPs zXgcBwF8m5J6Hs7PA8AVX pgbW8MTEMQBEJjmeGA+PC 24zs24T0WyHtfbIjz4WVX cTDF0uTV5lT4c ZMEnMJmno9F8oMN9W8Ccs dYnli4nq7noNVGzAQgaM7 8nsQAld8O3CZNqcBN1YNK cbGpoWsXtwQ25 Oyc+WBLstUvwh7OxOvegr 8dov2qufMf0QrtcCXTtpd JotYawFBJ3v4OpGf2qSTG fgQD0kOQ2hY1g QyXmRuY6ERhxS279DmWtg KTwVcjhJ09pU2UsvRN+PH IlYki8LSGyfCivPN7qV2D hZGRpbmctbGVm qFnnFC4sJYGpaxueDUVpk T7rJWWfL5m4JmPjAfS4TI qaV2YeROGodstbIq00cX3 wDxFjSaB7IZsh U9FusfG6VODjiLLcSDwrY ML0T15bl8T0FEQfPWOfZZ Y7jNI4qB0fzSxxmmyahUG mdDsgdmVydGlj OCbqOUceG746OMZysZqtB kNvZGluZyBEYXRlOiAgMD YvMDYvMjAyMzwvdGQ+PHR oUJD4iPzxALLz aAZySNkzDw0lxGkccIdeH O3xFDGwbycuPYJcjV7dMN DtuBMypRwaEU4iPNKxsmh jg647YpQyXEN1 EEWsfVSdI1JibE7jAyWqE JOfZLDgA7AfzZCsQAwoB7 13RLbsGlE0JWNuuuKuU0C sLWFsaWduOiB0 g5O8Jp6Ic9EextdxM0Oay RCoIqGnIqmmVPr2X7SgKw wvdHI+EP60MDFwHS09VQs 5FPK6iDugHUdb PNGhI4MpzB7dFsGuAISyZ GRkOyc+PHRhYmxlIHdpZH RoPScxMDAlJyBzdHlsZT0 jWm8oFUMqNFWc qVpnsMSjKwKig1yhNBTxB OseVP3qqIndK0BaeUG0AT Oia2o8Xx34H97oQ2NpuQB +RBJzqCV8mUZ9 aW6iYjTjBvX9AQcoG248T sEniCFtLfdou9wpc7sbrU x6IzM4QEZhpbPtdPwiQKJ 9s5NiZs03U30s IHdpZHRoPSIxNSUiIHZhb Manrr2fbF5fYh4+PGNvbC R3kAK1xK2tNzOtLgF5WOe cX822HaAtlRQp Asgqy2ogn5qypMm7MnKbD IVnioFimSpuZYX3x6BvEx 09H6CuvFtft3CfRny2ou0 2oHRtx2L7nVM8 B8BmKZKikxqeyPKtbImvU C1fZXWotlcbIVIxyS8jQM RhB5x9UaSdFkV1HRkdF8Y znhS8TZTjkKKn THKgsHAZdH9dhpskv3roa xweCnSiQQHyMNp2BUo8AA DasZpvXkPkEVH3OhK0LDY 9cEPilE7jkDfw bbeblQ5iNci+MEO5zBYkf QRUYS4fOfsupJO+PHRkIH M4hZyfXIzfOQJzgO4oIIY aE9y3QvJpHlW9 XNzrA9JvefQ6GYOmwBYrJ GVefLVXmJ6zutzlj5vipy xbXoXuRAHlHZu3AGk1USN saWduOiBsZWZ0 TgZ4WYB4pNLdnR2flPtnv pphrS0yBfb+QmlydGggRG H2ATi0U8SrSzt8XQSzeIo aZB2mlXHrVMts Dp4pjJutlKlhJE9qIROiu uhoz096HnRhd4ixPQXkqK YwWBsiZWQ4C43wq9E7ILL sMAWoFFN4dGT6 nK3rzDyxvafywRUfkWzpg oYqeZfbXPrbCJqpJ463XM WjlAkuYkCoBEs2L7DfJcq 7DCMpiRjuLJ4v mCRiAWbdVe7zgOtgpJtoO G9zBLFekccbl506MnVhh1 lpINNxcNDlXKmtIYR1X38 is3J4FUHcNDTu DUS2hVO6fN6rzVkwhhxck GVmdDsgdmVydGljYWwtYW upC079NSSrvCxyZlYaoFu 9U4MoLnd3PNKe lMxvHA1zpGNuYAfoRc4eh HiuxPcjZM7dBHKvjivll8 46AfYnj9amWMCysQChUFq eEXD8F58nj6U8 WGOrRWBhOMM8wQX9lY7wp GlnbjogbGVmdDsgdmVydG isFRunAEvpW720XZInjFp nPlBhdGllbnQg UJwjHIg9H4XfTfyizPU+P M17KVRhKT52oMOrrBAjk9 piuTl2DoIsNTVdXEV7cVc rAXkrd1QsWKJh K74coNZal0Z1MMEcqXhhe LHgKaHezSF8mI0eDZfmyf jwg8zrhdoqVkrmy8lqza0 2wZ08T16bULte ZHRoPSIzMCUiIHZhbGlnb l0zdP7cYr8+OEAitXG6jV N4xF1dTOMoJxM2ROxeP17 9InRvcCIvPjxj b0dqr9eliMe6GbK1DKSdz oOiuXcwYHG7q9AxVo96R3 9sIHdpZHRoPSIyMCUiIHZ xoUckgq3xwV2w Ii8+JYLvbLM4iUN9hG9zS aRmNiN7NAruY917PoFdeB PtRzphN77pX7JhbAG+PHR kDad4RCVehCfm DE4qpOPxFTckIi0hTQJ3V jAgYlVvVJgmV4VpHXVgsg iwgcwlwRW6QUAdGXNwaK7 2Kd7yhRcaRIVe eOWGuU6pczvqn6vxhdbnH nEsOBTfMYl5LZv3VIRrpV ppHyUhYPA7KhM4NYN8uWL itD0coPcyvzoq gN6bW6FtJBVwtwtvTa05b E7eDzCdYeM6ATvvRcd+TU pMAUBUXHFXHMFFLH4SRIx HU38KOT72EJ88 zJYww4P3fKN8A5AaSHKod ocgpdqwsRA9NHZiUCAcwY 57kSIrWEfgDn8dk9O5q54 9JJQzHPFaeM42 Jw3kxZvrDTWylSGZaQ6it zyse7tuyuuzYtWuFDDkBM c0CYl2NEVmlNdaJfKcKAP 0HcC1RBD8lIJw sU6xpFqeesczmI1gXpc+M DMvMDQvMTkzNTwvdGQ+PH FlKMV1zGpqEBvsJDQapB1 sFJRtV9j9EwDp RzQ3MTsuA4WjLHWzudlhU r52sB2wTnClEtF3OZdsI1 JzoqV9PXOetMIuNSmmTQK 6T25kt9M1HUYf BOSvURE8dIN6jA8vmBond jogbGVmdDsgdmVydGljYW ajBSycD916TZXwsGbiNjg 1JVvrYMYqFI10 GF80kKLci5M4eFK4J7KkV OZjmgmreqipaNM2QTFiFS RygO08dUWqYKwjQo8cg3I 2c778ZAHwVTSr kH22Tr9rbXhtUWZdaWDJa T5ajdchj8angsbaYiXiAF EeAIs7JFh3PMLcqDsaWvM eVSJ5UuV6BRC3 bNQmrX1nbZdcwwmwzF8vB yc+TUFMRTwvdGQ+PHRkIH W3zGhvNTcvTNGsdO3tODB rK5q7EnJrSrX3 GUbiB9AvTFCndrdyQk65x L4yXiHdUyT3MDbtJ5Zbrb N8SZAhwBHrGGqqZBF6L42 fp9J5PWFjUTYh VVI5qFO3lA6foTseagcxv GVmdDsgdmVydGljYWwtYW kfF251MQVihFlrXmQwyNF IjDQcQAQ5DM24 GI15G4FaHcvsqOTnfKO+P HRhYmxlIHdpZHRoPScxMD CySjTdxLpxAP8tOy4kCZE yLWNvbGxhcHNl InHcy9zvHMTcZPbbNA1yu BybI8MexOW5YVGpi3y2Cu 28B85mG9EiyTK+PGNvbCB 2dIU3hT6tNhKs RdU5JLuoE554KbKbrOYwL xewt7jlz8cbgXn2WaXcMR VtvqKgfEnmDJF5b4XmEm4 9V83lDTzsNNBe DUAdFVPdYGFdoKxijr1nr G9wIi8+YMNfgPZ1wKD4kR 8jNkKcTeQ9HLidS319ZtJ qySNtUzbwF33r M6XhhTY+WVPdPbk1ASHkz PtwBP9ceIOpQVakLn7pFG H6QvZtEvKhOVpfZ0FjWKZ pbmctcmlnaHQ6 MDMiQQBnsS13In7sxDrhW q3jEPYkEKH2KROyiMNtP4 MpwJ9bIiFwDTIsXPLpY7B iuVGyBMcwP919 LEbmViO4WJGzrmSnP8EhF PByqQfjHeH7a5E3Iu4MjM innVMxQU9rPsFuIKg5S2E fLnh8IKSmzVpp WW6qoDNcQIqbKv5ivFfzv VpmOU0wIOJajtoqh724Mg Cbb7sdDMJtfSRaGPeuATG 3J05us6U3KXWw ZTMuSET2vIM5cJ0yvJaxm jogbGVmdDsgdmVydGljYW bxCVmiR443WXKwwQxdVjM PAbq0U2CqKnv0 OSLrvEgjTO3nhPJjMAliG y3ldGkkzSfsKK7aEIFrsx ffr178WmWmf3idUZIhwAO sCPzdJON3T86z c3H0MXPuJJSoZTM4jIB6p A2cnTzlkpuciWAqqXgvod LwrVmlGUqyMJjkK452RZR jwWjuSu9SMne4 U6WvIrl1ZKJmpKywON8wa SUxLLilIk7rjLwjcYcwYU 1zMYVtmmyfi186HlJim3o kIDEwcHQgVGlt IUK9T85ie0Z9HVBaRTGrU MJ4rYZ5hT0ehFnmyfohsS VmdDsgdmVydGljYWwtYWx rR205GHOmtCbs PlBheWVyOjwvdGQ+PC90c a04T0RrYktpGcl2VMHkEG O0pOZ8iK5eJCWwCQkip7Q 7xEP2X9SvosPv ci1 (more content not included)... [facility] Consent Formson 01-01-2023 Consent Forms [id number] [facility] Inpatient Patient Summaryon 12-31-2022 [place] [address] Patient Discharge Instructions Name: RY LERNER : 1935 Patient Address: [address] [place] [address] Primary Care Provider: Name: John Nieves MD After you are discharged if you find you have any questions, please, call [phone] ext [phone] to speak to a nurse. Discharge Diagnosis: Carpal tunnel syndrome, right Prescription Information: If you have been given a prescription for narcotics, seek immediate medical attention if you have any difficulty breathing or any sudden status changes such as confusion and sleepiness. If you or anyone you know is experiencing suicidal thoughts, mental health, alcohol and/or drug addiction problems; contact the [facility] 18/02 Crisis Hotline -Text 5JDAZ yv 835772. If you received any narcotics, sedation, or [...] business decisions or sign any legal documents [facility] would like to thank you for allowing us to assist you with your healthcare needs. The following includes patient education materials and information regarding your injury/illness. RY LERNER has been given the following list of follow-up instructions, prescriptions, and patient education materials: Follow-up Instructions With: Address: When: MARJ PEREZ [address] [place] [address], [address] [place] [address] [facility] (1) 01/09/2023 11:00 AM Medications During the [...] 1 cap(s) Oral every day. Lindsey's wort ([place]'s wort oral tablet) 1 tab(s) Oral 2 [...] 3. DO NOT lift heavy objects or color technician forcefully with your hand 4. Change [...] or concerns, please call the office at [phone] 7. Follow up as scheduled Viruses or Bacteria What?s got you sick? Antibiotics only treat bacterial infections. Viral illnesses cannot be treated with antibiotics. When an antibiotic is not prescribed, ask your healthcare professional for tips on how to relieve symptoms and feel better. Usual Cause Illness Viruses Bacteria Antibiotic Neede (more content not included)... Normal [facility] MAGR Intraoperative Recordon 12-31-2022 MAGR Intraoperative Record MAGR Intra-Op Record Summary Primary Physician: Ward Martinez DO Finalized Date/Time: 12/31/22 11:56:55 Pt. Name: RY LERNER/Sex: 1935 MALE Med Rec #: [id number] Physician: Ward Martinez DO Financial #: [id number] Pt. Type: D Room/Bed: / Admit/Disch: 12/31/22 [...] RN, DO Role Performed Surgeon - Primary Nuclear Reactor Operator Nuclear Reactor Operator Time In 12/31/22 09:15:00 12/31/22 09:15:00 12/31/22 09:15:00 Time Out 12/31/22 09:37:00 12/31/22 09:46:00 12/31/22 09:46:00 Procedure Carpal Tunnel Carpal Tunnel Carpal Tunnel Release(Right) Release(Right) Release(Right) Last Modified By: Chelita Borjas RN, RN, Chelita Mc RN 12/31/22 09:49:26 12/31/22 09:49:26 12/31/22 09:49:26 Entry 4 Entry 5 Case Attendee Lavern Vasques Kelly CST MANUAL ARTS THERAPIST Role Performed Cofounder Scrub Personnel Time In 12/31/22 09:15:00 12/31/22 [...] By Chelita Borjas RN Scrub 10% Povidone-Iodine [place] Prep Area (Im.270) Elbow and forearm, Prep Area Details Right Hand, Wrist Skin Prep Agent Dry Yes Without Pooling Hair Removal Syntegrity Hair Removal Methods No hair removal performed Outcome Met (O.100) Yes Last Modified By: [place] PERSAUD Chelita Alcides 12/31/22 11:55:12 Pos (more content not included)... [facility] MAGR Preoperative Recordon 0 12-31-2022 MAGR Preoperative Record MAGR Pre-Op Record Summary Primary Physician: Ward Martinez DO Finalized Date/Time: 12/31/22 09:13:14 Pt. Name: YANN RY PERRY /Sex: 1935 MALE Med Rec #: [id number] Physician: Ward Martinez DO Financial #: [id number] Pt. Type: D Room/Bed: / Admit/Disch: 12/31/22 [...] Vicky Ponce RN Document Signatures Signed By: Vciky Ponce RN 12/31/22 09:13 [facility] Patient Handouton 12-31-[address] HUDDLESTONS POST OPERATIVE CARPEL TUNNEL INSTRUCTIONS SURGEONS WRITTEN INSTRUTCTIONS: 1. Keep your hand elevated above your elbow for the first 24 hours after surgery 2. Wiggle your fingers frequently while awake 3. DO NOT lift heavy objects or color technician forcefully with your hand 4. Change [...] or concerns, please call the office at [phone] 7. Follow up as scheduled Normal [facility] CBC AUTO DIFFon 12-25-2022 BASO # 0.0 103/ul Normal 0.0-0.1 [facility] Comment on above: Performed By: #### C BC #### [facility] [address] [address] [address] Rashmi Nolan Basophils/100 WBC (Bld) 0.6 % Normal 0.2-2.0 [facility] Comment on above: Performed By: #### C BC #### [facility] [address] [address] [address] Rashmi Nolan EO # 0.2 103/ul Normal 0.0-0.7 [facility] Comment on above: Performed By: #### C BC #### [facility] [address] [address] [address] Rashmi Nolan Eosinophils/100 WBC (Bld) 6.9 % Normal 0.9-7.0 [facility] Comment on above: Performed By: #### C BC #### [facility] [address] [address] [address] Rashmi Nolan Erythrocyte distribution width (RBC) [Ratio] 14.0 % Normal 11.0-15.0 [facility] Comment on above: Performed By: #### C BC #### [facility] [address] [address] [address] Rashmi Nolan Hematocrit (Bld) [Volume fraction] 29.8 % Critically low 42.0-54.0 [facility] Comment on above: Performed By: #### C BC #### [facility] [address] [address] [address] Rashmi Nolan Hemoglobin (Bld) [Mass/Vol] 9.8 g/dL Critically low 14.0-18.0 [facility] Comment on above: Performed By: #### C BC #### [facility] [address] [address] [address] Rashmi Nolan IG # 0.02 10e3/ul Normal 0.00-0.03 [facility] Comment on above: Performed By: #### C BC #### [facility] [address] [address] [address] Rashmi Nolan IG % 0.6 % Critically high 0.0-0.5 [facility] Comment on above: Performed By: #### C BC #### [facility] [address] [address] [address] Rashmi Nolan LYMPH # 0.8 103/ul Critically low 1.2-3.8 [facility] Comment on above: Performed By: #### C BC #### [facility] [address] [address] [address] Rashmi Nolan Lymphocytes/100 WBC (Bld) 25.1 % Normal 20.5-60.0 [facility] Comment on above: Performed By: #### C BC #### [facility] [address] [address] [address] Rashmi Nolan MANUAL DIFF REQ NO Normal [facility] Comment on above: Performed By: #### C BC #### [facility] [address] [address] [address] Rashmi Nolan MCH (RBC) [Entitic mass] 33.0 pg Normal 25.9-34.0 [facility] Comment on above: Performed By: #### C BC #### [facility] [address] [address] [address] Rashmi Nolan MCHC (RBC) [Mass/Vol] 32.9 g/dL Normal 29.9-35.2 [facility] Comment on above: Performed By: #### C BC #### [facility] [address] [address] [address] Rashmi Nolan MCV (RBC) [Entitic vol] 100.3 fL Critically high 80.0-94.0 [facility] Comment on above: Performed By: #### C BC #### [facility] [address] [address] [address] Rashmi Nolan MONO # 0.3 103/ul Normal 0.3-0.8 [facility] Comment on above: Performed By: #### C BC #### [facility] [address] [address] [address] Rashmi Nolan Monocytes/100 WBC (Bld) 9.6 % Normal 1.7-12.0 [facility] Comment on above: Performed By: #### C BC #### [facility] [address] [place] [address] Dr. Rashmi Nolan NEUT # 1.9 103/ul Normal 1.4-6.5 [facility] Comment on above: Performed By: #### C BC #### [facility] [address] [place] [address] Dr. Rashmi Nolan Neutrophils/100 WBC (Bld) 57.2 % Normal 43.0-75.0 [facility] Comment on above: Performed By: #### C BC #### [facility] [address] [place] [address] Dr. Rashmi Nolan Platelet mean volume (Bld) [Entitic vol] 10.5 fL Normal 9.5-13.5 [facility] Comment on above: Performed By: #### C BC #### [facility] [address] [place] [address] Dr. Rashmi Nolan PLT 129 103/ul Critically low 150-450 [facility] Comment on above: Performed By: #### C BC #### [facility] [address] [address] [address] Rashmi Nolan RBC 2.97 106/ul Critically low 4.70-6.10 [facility] Comment on above: Performed By: #### C BC #### [facility] [address] [address] [address] Rashmi Nolan WBC 3.3 103/ul Critically low 4.0-11.0 [facility] Comment on above: Performed By: #### C BC #### [facility] [address] [address] [address] Rashmi Nolan PROTIMEon 12-25-2022 INR Coag (PPP) [Relative time] 1.03 {INR} Normal [facility] Comment on above: Performed By: #### B MP #### [facility] [address] [place] [address] Dr. Rashmi Nolan INR GUIDELINES SEE BELOW Normal [facility] Comment on above: Result Comment: ENOC RED INR: 2.0 - 3.0 CONDITIONS NOT LISTED BELOW 2.5 - 3.5 FOR PROSTHETIC HEART VALVE REPLACEMENT 2.5 - 3.5 RECURRENT THROMBOSIS Performed By: #### B MP #### [facility] [address] [place] [address] Dr. Rashmi Nolan PT Coag (PPP) [Time] 10.9 s Normal 9.0-11.6 [facility] Comment on above: Performed By: #### B MP #### [facility] [address] [place] [address] Dr. Rashmi Nolan PTTon 12-25-2022 aPTT Coag (Bld) [Time] 25.6 s Normal 22.3-36.2 [facility] Comment on above: Performed By: #### C BC #### [facility] [address] [place] [address] Dr. Rashmi Nolan Coding Summaryon 12-19-2022 Coding Summary HTMLBase 64 EuoqefimMKl3bPs+PGhlY WQ+TW5SSAPcS86zmICygI 1nI1XEJFwJNjbqGEENWNo BPoGfwxLuZM1ugJEjZBTl IC8+QA2lHWUdHiomzVXzv 4R8nIQ4F24xzh7sKNnzgS C5BMZrWnXmavezk8kefKy 6IDcuNmluOyBt MQPirB17RYX9zS42Wj14f DJcnAGkb2riiUd5PmChNE WvMKM7kPljIKmto1YcLXC gW51nuWTdc7J6 AGBntTfxySEwKlIvuSU4i I9lNZybfhghl9mgqeadNa e9fe97wWPve1Y8nOV2Y7U tmaN4HJEzpIYg KojstFPJmY2uigsfm0ojr zyzRiJoMMLiQBd1CRf2SR GojDbsTvEeBE80HQG9TXF yqfZlZ8FlMLKt rFzmPeZ5h6I7Kn3KQ5ERN qgsS5AELBXAFSyujTD+PC 25kz42F3RrGvpqCws9IDQ uBFH5zDU5cV8b YRDgDKmhk1D6iPH0E2Awz uVndo1gc0khINMjNTncT7 9lyPBaz4O3CJMobMI4KBL cpAibApYdyZ78 Oyc+EKBkaAkiw1CgRkpea 2loa1guoXx4XjttWGBzwx TyaOlmBGJ6k4XaRd1tHJP esFQ2nHM8cJ7j BgBkTbG9GEnuK946GePul RBrJvzfY74hV8OoyWW+PH ZiTdu8EULggEuxSV8bD6Q hZGRpbmctbGVm uApoHV4dAWLasftaGSCwv Y3tBCThU3q8KpOlLoY0DA njN6GpMLMxklgbLq38lI8 wOqPuRqA9IExd V5IarqX7ZPBldXPeMDjgV UM3Z66wp2K6PCEbISPjOL R9jLV0pO2mqBwawdoizDS mdDsgdmVydGlj ZMkyLQysE926VSZtxJlhI kNvZGluZyBEYXRlOiAgMD UvMjQvMjAyMzwvdGQ+PHR zJOI9aBydTUTz lHPhBXuyTu5xpSlymUrzJ E1yGGKzvodqNDHltR1sWD TykEWogOycFT4vSCHyeaf he086RrJyNEV4 ZHFftEPcD1PnsU5zUvXlP RUyQYLvV1QvpAEpPDwjT9 28UUiqUpL3EZNnqpVbC6M sLWFsaWduOiB0 s3E5Qp1Hr6KpmykwC9Qda QZtZqGeAbvjWIp8A8YyBd wvdHI+CR02YLEaCU47HRk 6YZJ0sNzpGIsk PMTjK5KzlE3aDmSwNLVyC GRkOyc+PHRhYmxlIHdpZH RoPScxMDAlJyBzdHlsZT0 rPq9jENNyEWSo lPvntUAaNyXsg9bdNLOqI BtgEM3qwLnaN4FxnYR5WI Xuz0j6Wh31A03mQ2TptRE +PDUhlYN2gYW7 xY8rTvFrCiR4JRxnA924U pZhbDDeSnbrl5mgd4nynG t5QvH8UVNzbfAekZkkSWY 2t7NnFx26G93w IHdpZHRoPSIxNSUiIHZhb Jkrdj9pfX4fJv6+PGNvbC K3dWU0nJ7wMjPgRmG0HQu kG932EmRuwEYr Cwlvo5dau9pmiQt5NoRuR YTvubHydYwiWGK9l4DjBw 76J2JxvYxfk7OgCcj1md8 4uEBsf4B5lME4 N1ShNFSzrnxaiHGouKaeK O5mHZZewaiyCZUhzK9nYA QdQ3c3SlKbBrQ4DHuxQ0T pyfK1IEFlpRPi SLTsaFCKdG3eauacs4dwt zgtUsOiTGAtLDb1FCv4YG ZqnPbeOhBpUUV4QiL2WRI 7rENwgH7dqVmi exshfV7xXti+LQD9oJIit LPUAB4cHphvrRY+PHRkIH A4jKrbUPzrMMSexU3gXPR wI6s5ByPgJdQ9 YQjvY3EysfO0CIYdeDKjZ MOwoRCBvC6sdxojo1lsuk clAoRuFIKcWZa9TIl6NDO saWduOiBsZWZ0 NzX7SEY6cDZctY4mmBsif xdcsO4fMlw+QmlydGggRG T2GVt0G0GtEpv7RBIglUe eAV2mpXRbEMem Ut6ujLujeXuaHL2tOLRde owqq134QmFae1snAGBafA XoIDtjKGE2F45xb7N0RKW jJDJyPAB1fIG8 lM4rePddjhoxrEEjmCzha iLrcJjdUUmmTIarB429AB RwiZvuKcBcUGj6M9DjQle 3ILJfuZccTW3o aJKmLMlpPf2fhRjleXiuL V5sYUEzzxmec481AiZvs9 xiKQYtbIBzYYatZMS9E01 ol8J1GVUyXMRo YCJ1lOY3fM8vpVymuduzq GVmdDsgdmVydGljYWwtYW ljT664GFVvsCcoOsPvxXw 0M6AuBjm4BQWf aBhxUL1dfRErVPqwVx3ba BjupLdxTC5yPRFjxeqdc4 90BzLay6juPNPbwHPkXSd nBAF0X64dz2H2 ACTtWLMqSER2rDL7uD7jb GlnbjogbGVmdDsgdmVydG wjZHzsQHzhU387QJCujHf nPlBhdGllbnQg PPtxMXi3V6OtQrqulFP+P C63ZGZdVI21nOVjeBOsq3 ppmBw7VoDoWNJfMNC0rGt aMKcri7RxIMAl R06qvEVhh1A7TDHhoIdjt OQqSxIdlHA2fD8hXZlraf uok1nafkltHtztt7qkwz9 6sB23I20ePKqv ZHRoPSIzMCUiIHZhbGlnb k3jlB3kJu0+ZXBrpVH1mL Y1iU5aKGNaHzY9ABsaE20 9InRvcCIvPjxj d8bqk1yppSm0MgA1RJOrf yVzhChkPRN0b5GbCc20O2 9sIHdpZHRoPSIyMCUiIHZ aqZhzaa2slJ8u Ii8+QVVxeHY8xGN5uV3sB rVpXkL2YOddN952BsGpyN VlNbnwZ69zM8DghGR+PHR xCoj4EUSbbJcg SV2urJZdNRuoBi8iZOE2G fRrXtVbHHplO0WaOQEgiw aaavsmyHI5WZViSJQtuM3 7Lu1tcSrfLEId wDYFuB8emtosr6zkcnuzC hPqHQSvRDl4DPn9RILwyE rvBiDnUWO2TiH2XLP0aQF saE7ooIirwkwc yG4eC9UiDLCrtofrRr92g H3aMjRmLzX5IMzwBcy+TU iGSKUHWYLIKEABIQ6KZIx US47XOW99VB01 wKJsz3G0wRN3D5ZjEQAbq irzxvvyiTC3PNGtIFLznE 34kGYyJVnmKc8qn2C9d67 3CPLpEFNviW10 Yc2voRcaFZWxlQPSeH1dp itxv1oyrqmoMwUuUDSqHG m5AZq2IRLvrCejUeCeESM 8OjU2JMX8sWUn tV5glNqgynzkpG3lVmn+M DMvMDQvMTkzNTwvdGQ+PH BhHLU2kNwlVUhbWBCyiD2 vVAQqA2o4YoEz BdY2IVisD2RzWCOxkpsqH d92mF2oBvNpLhG1KBneQ8 PnenO4DWSycUQsNUdoVRZ 1W60zp3R2XBIq XBWjLUX6cNS4qT3wtMmdq jogbGVmdDsgdmVydGljYW yaPQxrC873DHIdkImpCau 4FMrdYJDgHS63 HB26xJDcn7G1eFP7J8MqO IXqoipwhuietVF5RYAwBM SlkD63tYWrNIrqPd0od1X 7w338MLUoCTKy vT84Ad3fsXdqKARffDGWi H7iydyql1zzvbnfJdEzWH AuPCn0BCb6DLOhaBgwSgG xMAK1JoJ6OXS9 jGGegS0prNxkxpbwyR7jV yc+TUFMRTwvdGQ+PHRkIH P2hWodQMunBZOvqX2qKOE iT8a5MwAbGmD9 CYojK9RqVXPncwigQb17g W6dKjIxAlK3TOfwS5Hded N5NMAtsGZlHXdeMXT1G98 hk4O2VFJpLNAv EGA6eRJ2pH8paWavutsjw GVmdDsgdmVydGljYWwtYW zfO358AKJfdKzxMqGqhNB TjCVyZNV1JH16 YK49I4HgEouafAAggTL+P HRhYmxlIHdpZHRoPScxMD DfYuQdjAxsHC4iBv1ePTT yLWNvbGxhcHNl DlLaz0ixIBWwUDzzEA6ac JmeG3UdvYC4MIWah3f9Cu 80T17pR2RraJE+PGNvbCB 0bFP4zB5mYgAw RwS0FHzxX783WcFywEPqV iksj6plg6qxbSk0AkWyCT KkpqQitEraXIQ2p5NlJy7 3N67nVBjvPZHj DYUqFVSpTWQirAzpek1bh G9wIi8+YBDrmWO8gYF6kW 4dZeYqQpT6JTjhF050KfN ggXTmChxdG43w A8XduMP+CJQrBpa0ANRpe PmgEU3niAFfYWlqEj7rGJ K1DqQpEiWtNQxqR6ZgDEI pbmctcmlnaHQ6 RTXlNDZkvU80Bc3wzRilX q7wJMCrJNP6EYXwsBFeL1 UdhB7tBlEuONMuFEOvJ5N mnUCfJFlsS869 PCvdBdR5OPKiyyEsC3UfE DHlwGzjEqX6h1Z4Hm2KsD oerNEcSN7oKdCrMOz3O8Q vTtz8OEKlrPrs SK5ikMJzHLznLq5aqTwdm NghQC3hRPWwxzewd341Du Hdg9uxSMXyiWScOAdiCRS 5O35bq3N5MBBw RTRuEUC1dBM5yD7yqQimq jogbGVmdDsgdmVydGljYW kiQQdeK752KQGxpIkcPbD VJeo2A7ClJph9 EOXceGqdXS1zgTZdKEspD q5pcEqudTyhLV9uAWOlmm jgr255DbAjb3xvLRBolID wKQmaWQS3T11m a3O5TRAsVDTwHLA6zWR9m V3zpGmoxaptdSTjiBdmyb YgvIkcRWkqFWzfZ064EGL jcKzpOf2SVwx9 K1LxGfz3TXIgzPsrCG1yz IKnVSwpJz7tsZykiRytAF 0fAFPmmtgpv276UvDgq1i kIDEwcHQgVGlt ISM0F76an7I6DYVfALQwB KG7nOS5wC2tgExgafidpK VmdDsgdmVydGljYWwtYWx qW999FQQeyUtp PlBheWVyOjwvdGQ+PC90c b36C4BvEqdyGia4NPSoJP K0cGN5yT8mSYFpPNqgc7V 9lEB1S8NjhfLa ci1 (more content not included)... Normal [facility] CBC AUTO DIFFon 12-14-2022 BASO # 0.0 103/ul Normal 0.0-0.1 [facility] Comment on above: Performed By: #### C BC #### [facility] [address] [address] [address] Rashmi Nolan Basophils/100 WBC (Bld) 0.6 % Normal 0.2-2.0 [facility] Comment on above: Performed By: #### C BC #### [facility] [address] [address] [address] Rashmi Nolan EO # 0.4 103/ul Normal 0.0-0.7 [facility] Comment on above: Performed By: #### C BC #### [facility] [address] [address] [address] Rashmi Nolan Eosinophils/100 WBC (Bld) 11.9 % Critically high 0.9-7.0 [facility] Comment on above: Performed By: #### C BC #### [facility] [address] [place] [address] Dr. Rashmi Nolan Erythrocyte distribution width (RBC) [Ratio] 15.2 % Critically high 11.0-15.0 [facility] Comment on above: Performed By: #### C BC #### [facility] [address] [place] [address] Dr. Rashmi Nolan Hematocrit (Bld) [Volume fraction] 26.3 % Critically low 42.0-54.0 [facility] Comment on above: Performed By: #### C BC #### [facility] [address] [place] [address] Dr. Rashmi Nolan Hemoglobin (Bld) [Mass/Vol] 8.9 g/dL Critically low 14.0-18.0 [facility] Comment on above: Performed By: #### C BC #### [facility] [address] [place] [address] Dr. Rashmi Nolan IG # 0.01 10e3/ul Normal 0.00-0.03 [facility] Comment on above: Performed By: #### C BC #### [facility] [address] [address] [address] Rashmi Nolan IG % 0.3 % Normal 0.0-0.5 [facility] Comment on above: Performed By: #### C BC #### [facility] [address] [address] [address] Rashmi Nolan LYMPH # 0.8 103/ul Critically low 1.2-3.8 [facility] Comment on above: Performed By: #### C BC #### [facility] [address] [place] [address] Dr. Rashmi Nolan Lymphocytes/100 WBC (Bld) 25.1 % Normal 20.5-60.0 [facility] Comment on above: Performed By: #### C BC #### [facility] [address] [place] [address] Dr. Rashmi Nolan MANUAL DIFF REQ NO Normal [facility] Comment on above: Performed By: #### C BC #### [facility] [address] [place] [address] Dr. Rashmi Nolan MCH (RBC) [Entitic mass] 33.0 pg Normal 25.9-34.0 [facility] Comment on above: Performed By: #### C BC #### [facility] [address] [place] [address] Dr. Rashmi Nolan MCHC (RBC) [Mass/Vol] 33.8 g/dL Normal 29.9-35.2 [facility] Comment on above: Performed By: #### C BC #### [facility] [address] [place] [address] Dr. Rashmi Nolan MCV (RBC) [Entitic vol] 97.4 fL Critically high 80.0-94.0 [facility] Comment on above: Performed By: #### C BC #### [facility] [address] [place] [address] Dr. Rashmi Nolan MONO # 0.3 103/ul Normal 0.3-0.8 [facility] Comment on above: Performed By: #### C BC #### [facility] [address] [place] [address] Dr. Rashmi Nolan Monocytes/100 WBC (Bld) 9.0 % Normal 1.7-12.0 [facility] Comment on above: Performed By: #### C BC #### [facility] [address] [address] [address] Rashmi Nolan NEUT # 1.7 103/ul Normal 1.4-6.5 [facility] Comment on above: Performed By: #### C BC #### [facility] [address] [address] [address] Rashmi Nolan Neutrophils/100 WBC (Bld) 53.1 % Normal 43.0-75.0 [facility] Comment on above: Performed By: #### C BC #### [facility] [address] [address] [address] Rashmi Nolan Platelet mean volume (Bld) [Entitic vol] 10.2 fL Normal 9.5-13.5 [facility] Comment on above: Performed By: #### C BC #### [facility] [address] [address] [address] Rashmi Nolan PLT 139 103/ul Critically low 150-450 [facility] Comment on above: Performed By: #### C BC #### [facility] [address] [address] [address] Rashmi Nolan RBC 2.70 106/ul Critically low 4.70-6.10 [facility] Comment on above: Performed By: #### C BC #### [facility] [address] [address] [address] Rashmi Nolan WBC 3.1 103/ul Critically low 4.0-11.0 [facility] Comment on above: Performed By: #### C BC #### [facility] [address] [place] [address] Dr. Rashmi Nolan MAGR Intraoperative Recordon 12-14-2022 MAGR Intraoperative Record MAGR Intra-Op Record Summary Primary Physician: Ward Martinez DO Finalized Date/Time: 12/14/22 09:30:19 Pt. Name: RY LERNER/Sex: 1935 MALE Med Rec #: [id number] Physician: Ward Martinez DO Financial #: [id number] Pt. Type: D Room/Bed: / Admit/Disch: 12/10/22 [...] Andrew DO Role Performed Surgeon - Primary Nuclear Reactor Operator Nuclear Reactor Operator Time In 12/10/22 15:05:00 12/10/22 14:54:00 12/10/22 14:54:00 Time Out 12/10/22 15:30:00 12/10/22 15:30:00 12/10/22 15:30:00 Procedure Carpal Tunnel Carpal Tunnel Carpal Tunnel Release(Left) Release(Left) Release(Left) Last Modified By: Maile Palmer RN, Barbara RN Long, Barbara RN 12/10/22 15:29:30 12/10/22 15:29:30 12/10/22 15:29:30 Entry 4 Entry 5 Case Attendee Macie Licea CST, CST, Brandi Role Performed Cofounder Scrub Personnel Time In 12/10/22 14:54:00 12/10/22 [...] By Maile Palmer RN Scrub 10% Povidone-Iodine [place] Prep Area (Im.270) Arm lower Prep Area [...] injury Counts (more content not included)... Normal [facility] PROF CHEM 8 (BAS METB)on Anion gap [Moles/Vol] 12.6 mmol/L Normal [facility] Comment on above: Performed By: #### B MP #### [facility] [address] [address] [address] Rashmi Nolan Calcium [Mass/Vol] 9.7 mg/dL Normal 8.5-10.1 [facility] Comment on above: Performed By: #### B MP #### [facility] [address] [address] [address] Rashmi Nolan Chloride [Moles/Vol] 108 mmol/L Critically high 98-107 [facility] Comment on above: Performed By: #### B MP #### [facility] [address] [address] [address] Rashmi Nolan CO2 [Moles/Vol] 24.5 mmol/L Normal 21.0-32.0 [facility] Comment on above: Performed By: #### B MP #### [facility] [address] [address] [address] Rashmi Nolan Creatinine [Mass/Vol] 1.68 mg/dL Critically high 0.70-1.30 [facility] Comment on above: Performed By: #### B MP #### [facility] [address] [address] [address] Rashmi Nolan EGFR-AF GRENADIAN 47 mL/min/1.73m2 Critically low >=60 [facility] Comment on above: Performed By: #### B MP #### [facility] [address] [address] [address] Rashmi Nolan EGFR-NON AF GRENADIAN 39 mL/min/1.73m2 Critically low >=60 [facility] Comment on above: Performed By: #### B MP #### [facility] [address] [address] [address] Rashmi Nolan Glucose [Mass/Vol] 91 mg/dL Normal 74-106 [facility] Comment on above: Performed By: #### B MP #### [facility] [address] [address] [address] Rashmi Nolan Potassium [Moles/Vol] 5.1 mmol/L Normal 3.5-5.1 [facility] Comment on above: Performed By: #### B MP #### [facility] [address] [address] [address] Rashmi Nolan Sodium [Moles/Vol] 140 mmol/L Normal 136-145 [facility] Comment on above: Performed By: #### B MP #### [facility] [address] [address] [address] Rashmi Nolan Urea nitrogen [Mass/Vol] 27.0 mg/dL Critically high 7.0-18.0 [facility] Comment on above: Performed By: #### B MP #### [facility] [address] [address] [address] Rashmi Nolan Urea nitrogen/Creatinine [Mass ratio] 16.1 mg/mg Normal [facility] Comment on above: Performed By: #### B MP #### [facility] [address] [address] [address] Rashmi Nolan CBC AUTO DIFFon 12-13-2022 BASO # 0.0 103/ul Normal 0.0-0.1 [facility] Comment on above: Performed By: #### C BC #### [facility] [address] [address] [address] Rashmi Nolan Basophils/100 WBC (Bld) 0.6 % Normal 0.2-2.0 [facility] Comment on above: Performed By: #### C BC #### [facility] [address] [place] [address] Dr. Rashmi Nolan EO # 0.4 103/ul Normal 0.0-0.7 [facility] Comment on above: Performed By: #### C BC #### [facility] [address] [place] [address] Dr. Rashmi Nolan Eosinophils/100 WBC (Bld) 10.3 % Critically high 0.9-7.0 [facility] Comment on above: Performed By: #### C BC #### [facility] [address] [place] [address] Dr. Rashmi Nolan Erythrocyte distribution width (RBC) [Ratio] 15.8 % Critically high 11.0-15.0 [facility] Comment on above: Performed By: #### C BC #### [facility] [address] [place] [address] Dr. Rashmi Nolan Hematocrit (Bld) [Volume fraction] 25.7 % Critically low 42.0-54.0 [facility] Comment on above: Performed By: #### C BC #### [facility] [address] [place] [address] Dr. Rashmi Nolan Hemoglobin (Bld) [Mass/Vol] 8.5 g/dL Critically low 14.0-18.0 [facility] Comment on above: Performed By: #### C BC #### [facility] [address] [place] [address] Dr. Rashmi Nolan IG # 0.00 10e3/ul Normal 0.00-0.03 [facility] Comment on above: Performed By: #### C BC #### [facility] [address] [place] [address] Dr. Rashmi Nolan IG % 0.0 % Normal 0.0-0.5 [facility] Comment on above: Performed By: #### C BC #### [facility] [address] [place] [address] Dr. Rashmi Nolan LYMPH # 0.8 103/ul Critically low 1.2-3.8 [facility] Comment on above: Performed By: #### C BC #### [facility] [address] [place] [address] Dr. Rashmi Nolan Lymphocytes/100 WBC (Bld) 23.5 % Normal 20.5-60.0 [facility] Comment on above: Performed By: #### C BC #### [facility] [address] [place] [address] Dr. Rashmi Nolan MANUAL DIFF REQ NO Normal [facility] Comment on above: Performed By: #### C BC #### [facility] [address] [place] [address] Dr. Rashmi Nolan MCH (RBC) [Entitic mass] 32.9 pg Normal 25.9-34.0 [facility] Comment on above: Performed By: #### C BC #### [facility] [address] [place] [address] Dr. Rashmi Nolan MCHC (RBC) [Mass/Vol] 33.1 g/dL Normal 29.9-35.2 [facility] Comment on above: Performed By: #### C BC #### [facility] [address] [place] [address] Dr. Rashmi Nolan MCV (RBC) [Entitic vol] 99.6 fL Critically high 80.0-94.0 [facility] Comment on above: Performed By: #### C BC #### [facility] [address] [place] [address] Dr. Rashmi Nolan MONO # 0.3 103/ul Normal 0.3-0.8 [facility] Comment on above: Performed By: #### C BC #### [facility] [address] [place] [address] Dr. Rashmi Nolan Monocytes/100 WBC (Bld) 8.9 % Normal 1.7-12.0 [facility] Comment on above: Performed By: #### C BC #### [facility] [address] [place] [address] Dr. Rashmi Nolan NEUT # 2.0 103/ul Normal 1.4-6.5 [facility] Comment on above: Performed By: #### C BC #### [facility] [address] [address] [address] Rashmi Nolan Neutrophils/100 WBC (Bld) 56.7 % Normal 43.0-75.0 [facility] Comment on above: Performed By: #### C BC #### [facility] [address] [address] [address] Rashmi Nolan Platelet mean volume (Bld) [Entitic vol] 10.5 fL Normal 9.5-13.5 [facility] Comment on above: Performed By: #### C BC #### [facility] [address] [address] [address] Rashmi Nolan PLT 134 103/ul Critically low 150-450 [facility] Comment on above: Performed By: #### C BC #### [facility] [address] [address] [address] Rashmi Nolan RBC 2.58 106/ul Critically low 4.70-6.10 [facility] Comment on above: Performed By: #### C BC #### [facility] [address] [address] [address] Rashmi Nolan WBC 3.6 103/ul Critically low 4.0-11.0 [facility] Comment on above: Performed By: #### C BC #### [facility] [address] [address] [address] Rashmi Nolan PROF CHEM 8 (BAS METB)on Anion gap [Moles/Vol] 11.7 mmol/L Normal [facility] Comment on above: Performed By: #### C BC #### [facility] [address] [address] [address] Rashmi Nolan Calcium [Mass/Vol] 9.5 mg/dL Normal 8.5-10.1 [facility] Comment on above: Performed By: #### C BC #### [facility] [address] [address] [address] Rashmi Nolan Chloride [Moles/Vol] 110 mmol/L Critically high 98-107 [facility] Comment on above: Performed By: #### C BC #### [facility] [address] [address] [address] Rashmi Nolan CO2 [Moles/Vol] 25.1 mmol/L Normal 21.0-32.0 [facility] Comment on above: Performed By: #### C BC #### [facility] [address] [address] [address] Rashmi Nolan Creatinine [Mass/Vol] 1.69 mg/dL Critically high 0.70-1.30 [facility] Comment on above: Performed By: #### C BC #### [facility] [address] [address] [address] Rashmi Nolan EGFR-AF GRENADIAN 47 mL/min/1.73m2 Critically low >=60 [facility] Comment on above: Performed By: #### C BC #### [facility] [address] [address] [address] Rashmi Nolan EGFR-NON AF GRE[place]DIAN 38 mL/min/1.73m2 Critically low >=60 [facility] Comment on above: Performed By: #### C BC #### [facility] [address] [address] [address] Rashmi Nolan Glucose [Mass/Vol] 93 mg/dL Normal 74-106 [facility] Comment on above: Performed By: #### C BC #### [facility] [address] [address] [address] Rashmi Nolan Potassium [Moles/Vol] 5.8 mmol/L Critically high 3.5-5.1 [facility] Comment on above: Performed By: #### C BC #### [facility] [address] [address] [address] Rashmi Nolan Sodium [Moles/Vol] 141 mmol/L Normal 136-145 [facility] Comment on above: Performed By: #### C BC #### [facility] [address] [address] [address] Rashmi Nolan Urea nitrogen [Mass/Vol] 35.0 mg/dL Critically high 7.0-18.0 [facility] Comment on above: Performed By: #### C BC #### [facility] [address] [place] [address] Dr. Rashmi Nolan Urea nitrogen/Creatinine [Mass ratio] 20.7 mg/mg Normal [facility] Comment on above: Performed By: #### C BC #### [facility] [address] [place] [address] Dr. Rashmi Nolan ABO RH RETYPEon 12-12-2022 ABO and Rh group Nom (Bld) DONE Normal [facility] Comment on above: Performed By: #### C BC #### [facility] [address] [place] [address] Dr. Rashmi Nolan CBC AUTO DIFFon 12-12-2022 BASO # 0.0 103/ul Normal 0.0-0.1 [facility] Comment on above: Performed By: #### C BC #### [facility] [address] [place] [address] Dr. Rashmi Nolan Basophils/100 WBC (Bld) 0.6 % Normal 0.2-2.0 [facility] Comment on above: Performed By: #### C BC #### [facility] [address] [place] [address] Dr. Rashmi Nolan EO # 0.3 103/ul Normal 0.0-0.7 [facility] Comment on above: Performed By: #### C BC #### [facility] [address] [place] [address] Dr. Rashmi Nolan Eosinophils/100 WBC (Bld) 7.6 % Critically high 0.9-7.0 [facility] Comment on above: Performed By: #### C BC #### [facility] [address] [place] [address] Dr. aRshmi Nolan Erythrocyte distribution width (RBC) [Ratio] 16.4 % Critically high 11.0-15.0 [facility] Comment on above: Performed By: #### C BC #### [facility] [address] [place] [address] Dr. Rashmi Nolan Hematocrit (Bld) [Volume fraction] 27.2 % Critically low 42.0-54.0 [facility] Comment on above: Performed By: #### C BC #### [facility] [address] [address] [address] Rashmi Nolan Hemoglobin (Bld) [Mass/Vol] 9.1 g/dL Critically low 14.0-18.0 [facility] Comment on above: Performed By: #### C BC #### [facility] [address] [address] [address] Rashmi Nolan IG # 0.01 10e3/ul Normal 0.00-0.03 [facility] Comment on above: Performed By: #### C BC #### [facility] [address] [address] [address] Rashmi Nolan IG % 0.3 % Normal 0.0-0.5 [facility] Comment on above: Performed By: #### C BC #### [facility] [address] [place] [address] Dr. Rashmi Nolan LYMPH # 0.9 103/ul Critically low 1.2-3.8 [facility] Comment on above: Performed By: #### C BC #### [facility] [address] [address] [address] Rashmi Nolan Lymphocytes/100 WBC (Bld) 25.3 % Normal 20.5-60.0 [facility] Comment on above: Performed By: #### C BC #### [facility] [address] [address] [address] Rashmi Nolan MANUAL DIFF REQ NO Normal [facility] Comment on above: Performed By: #### C BC #### [facility] [address] [address] [address] Rashmi Nolan MCH (RBC) [Entitic mass] 33.0 pg Normal 25.9-34.0 [facility] Comment on above: Performed By: #### C BC #### [facility] [address] [address] [address] Rashmi Nolan MCHC (RBC) [Mass/Vol] 33.5 g/dL Normal 29.9-35.2 [facility] Comment on above: Performed By: #### C BC #### [facility] [address] [address] [address] Rashmi Nolan MCV (RBC) [Entitic vol] 98.6 fL Critically high 80.0-94.0 [facility] Comment on above: Performed By: #### C BC #### [facility] [address] [address] [address] Rashmi Nolan MONO # 0.3 103/ul Normal 0.3-0.8 [facility] Comment on above: Performed By: #### C BC #### [facility] [address] [address] [address] Rashmi Nolan Monocytes/100 WBC (Bld) 8.1 % Normal 1.7-12.0 [facility] Comment on above: Performed By: #### C BC #### [facility] [address] [place] [address] Dr. Rashmi Nolan NEUT # 2.0 103/ul Normal 1.4-6.5 [facility] Comment on above: Performed By: #### C BC #### [facility] [address] [place] [address] Dr. Rashmi Nolan Neutrophils/100 WBC (Bld) 58.1 % Normal 43.0-75.0 [facility] Comment on above: Performed By: #### C BC #### [facility] [address] [place] [address] Dr. Rashmi Nolan Platelet mean volume (Bld) [Entitic vol] 10.0 fL Normal 9.5-13.5 [facility] Comment on above: Performed By: #### C BC #### [facility] [address] [place] [address] Dr. Rashmi Nolan PLT 147 103/ul Critically low 150-450 [facility] Comment on above: Performed By: #### C BC #### [facility] [address] [address] [address] Rashmi Nolan RBC 2.76 106/ul Critically low 4.70-6.10 [facility] Comment on above: Performed By: #### C BC #### [facility] [address] [address] [address] Rashmi Nolan WBC 3.4 103/ul Critically low 4.0-11.0 [facility] Comment on above: Performed By: #### C BC #### [facility] [id number] Rashmi Nolan BASO # 0.0 103/ul Normal 0.0-0.1 [facility] Comment on above: Performed By: #### C BC #### [facility] [address] [address] [address] Rashmi Nolan Basophils/100 WBC (Bld) 0.6 % Normal 0.2-2.0 [facility] Comment on above: Performed By: #### C BC #### [facility] [address] [address] [address] Rashmi Nolan EO # 0.2 103/ul Normal 0.0-0.7 [facility] Comment on above: Performed By: #### C BC #### [facility] [address] [place] [address] Dr. Rashmi Nolan Eosinophils/100 WBC (Bld) 6.6 % Normal 0.9-7.0 [facility] Comment on above: Performed By: #### C BC #### [facility] [address] [place] [address] Dr. Rashmi Nolan Erythrocyte distribution width (RBC) [Ratio] 16.4 % Critically high 11.0-15.0 [facility] Comment on above: Performed By: #### C BC #### [facility] [address] [place] [address] Dr. Rashmi Nolan Hematocrit (Bld) [Volume fraction] 26.1 % Critically low 42.0-54.0 [facility] Comment on above: Performed By: #### C BC #### [facility] [address] [place] [address] Dr. Rashmi Nolan Hemoglobin (Bld) [Mass/Vol] 8.5 g/dL Critically low 14.0-18.0 [facility] Comment on above: Result Comment: rcvd . blood Performed By: #### C BC #### [facility] [address] [place] [address] Dr. Rashmi Nolan IG # 0.01 10e3/ul Normal 0.00-0.03 [facility] Comment on above: Performed By: #### C BC #### [facility] [address] [place] [address] Dr. Rashmi Nolan IG % 0.3 % Normal 0.0-0.5 [facility] Comment on above: Performed By: #### C BC #### [facility] [address] [place] [address] Dr. Rashmi Nolan LYMPH # 0.7 103/ul Critically low 1.2-3.8 [facility] Comment on above: Performed By: #### C BC #### [facility] [address] [place] [address] Dr. Rashmi Nolan Lymphocytes/100 WBC (Bld) 20.2 % Critically low 20.5-60.0 [facility] Comment on above: Performed By: #### C BC #### [facility] [address] [place] [address] Dr. Rashmi Nolan MANUAL DIFF REQ NO Normal [facility] Comment on above: Performed By: #### C BC #### [facility] [address] [place] [address] Dr. Rashmi Nolan MCH (RBC) [Entitic mass] 32.7 pg Normal 25.9-34.0 [facility] Comment on above: Performed By: #### C BC #### [facility] [address] [place] [address] Dr. Rashmi Nolan MCHC (RBC) [Mass/Vol] 32.6 g/dL Normal 29.9-35.2 [facility] Comment on above: Performed By: #### C BC #### [facility] [address] [place] [address] Dr. Rashmi Nolan MCV (RBC) [Entitic vol] 100.4 fL Critically high 80.0-94.0 [facility] Comment on above: Performed By: #### C BC #### [facility] [address] [address] [address] Rashmi Nolan MONO # 0.3 103/ul Normal 0.3-0.8 [facility] Comment on above: Performed By: #### C BC #### [facility] [address] [address] [address] Rashmi Nolan Monocytes/100 WBC (Bld) 7.7 % Normal 1.7-12.0 [facility] Comment on above: Performed By: #### C BC #### [facility] [address] [address] [address] Rashmi Nolan NEUT # 2.3 103/ul Normal 1.4-6.5 [facility] Comment on above: Performed By: #### C BC #### [facility] [address] [place] [address] Dr. Rashmi Nolan Neutrophils/100 WBC (Bld) 64.6 % Normal 43.0-75.0 [facility] Comment on above: Performed By: #### C BC #### [facility] [address] [place] [address] Dr. Rashmi Nolan Platelet mean volume (Bld) [Entitic vol] 9.9 fL Normal 9.5-13.5 [facility] Comment on above: Performed By: #### C BC #### [facility] [address] [place] [address] Dr. Rashmi Nolan PLT 130 103/ul Critically low 150-450 [facility] Comment on above: Performed By: #### C BC #### [facility] [address] [place] [address] Dr. Rashmi Nolan RBC 2.60 106/ul Critically low 4.70-6.10 [facility] Comment on above: Performed By: #### C BC #### [facility] [address] [place] [address] Dr. Rashmi Nolan WBC 3.6 103/ul Critically low 4.0-11.0 [facility] Comment on above: Performed By: #### C BC #### [facility] [address] [place] [address] Dr. Rashmi Nolan PRBC LEUKOREDUCEDon 12-13-19 ABO and Rh group Nom (Bld) Cross Match Result Compatible Unit Blood Type O Pos Unit Number [id number] Status Information Issued Product ID Red Blood Cells Product Code [id number] Issue Date/Time [id number] Cross Match Result Compatible Unit Blood Type O Pos Unit Number [id number] Status Information Issued Product ID Red Blood Cells Product Code [id number] Issue Date/Time [id number] Normal [facility] Comment on above: Performed By: #### C BC #### [facility] [address] [address] [address] Rashmi Nolan PROF CHEM 8 (BAS METB)on Anion gap [Moles/Vol] 14.8 mmol/L Normal [facility] Comment on above: Performed By: #### B MP #### [facility] [address] [place] [address] Dr. Rashmi Nolan Calcium [Mass/Vol] 9.2 mg/dL Normal 8.5-10.1 [facility] Comment on above: Performed By: #### B MP #### [facility] [address] [address] [address] Rashmi Nolan Chloride [Moles/Vol] 110 mmol/L Critically high 98-107 [facility] Comment on above: Performed By: #### B MP #### [facility] [address] [address] [address] Rashmi Nolan CO2 [Moles/Vol] 23.5 mmol/L Normal 21.0-32.0 [facility] Comment on above: Performed By: #### B MP #### [facility] [address] [address] [address] Rashmi Nolan Creatinine [Mass/Vol] 1.77 mg/dL Critically high 0.70-1.30 [facility] Comment on above: Performed By: #### B MP #### [facility] [address] [address] [address] Rashmi Nolan EGFR-AF GRENADIAN 44 mL/min/1.73m2 Critically low >=60 [facility] Comment on above: Performed By: #### B MP #### [facility] [address] [address] [address] Rashmi Nolan EGFR-NON AF GRENADIAN 36 mL/min/1.73m2 Critically low >=60 [facility] Comment on above: Performed By: #### B MP #### [facility] [address] [address] [address] Rashmi Nolan Glucose [Mass/Vol] 103 mg/dL Normal 74-106 [facility] Comment on above: Performed By: #### B MP #### [facility] [address] [address] [address] Rashmi Nolan Potassium [Moles/Vol] 5.3 mmol/L Critically high 3.5-5.1 [facility] Comment on above: Performed By: #### B MP #### [facility] [address] [address] [address] Rashmi Nolan Sodium [Moles/Vol] 143 mmol/L Normal 136-145 [facility] Comment on above: Performed By: #### B MP #### [facility] [address] [address] [address] Rashmi Nolan Urea nitrogen [Mass/Vol] 54.0 mg/dL Critically high 7.0-18.0 [facility] Comment on above: Performed By: #### B MP #### [facility] [address] [address] [address] Rashmi Nolan Urea nitrogen/Creatinine [Mass ratio] 30.5 mg/mg Normal [facility] Comment on above: Performed By: #### B MP #### [facility] [address] [address] [address] Rashmi Nolan CBC AUTO DIFFon 12-11-2022 BASO # 0.0 103/ul Normal 0.0-0.1 [facility] Comment on above: Performed By: #### C BC #### [facility] [address] [address] [address] Rashmi Nolan Basophils/100 WBC (Bld) 0.4 % Normal 0.2-2.0 [facility] Comment on above: Performed By: #### C BC #### [facility] [address] [address] [address] Rashmi Nolan EO # 0.2 103/ul Normal 0.0-0.7 [facility] Comment on above: Performed By: #### C BC #### [facility] [address] [place] [address] Dr. Rashmi Nolan Eosinophils/100 WBC (Bld) 5.2 % Normal 0.9-7.0 [facility] Comment on above: Performed By: #### C BC #### [facility] [address] [place] [address] Dr. Rashmi Nolan Erythrocyte distribution width (RBC) [Ratio] 14.6 % Normal 11.0-15.0 [facility] Comment on above: Performed By: #### C BC #### [facility] [address] [place] [address] Dr. Rashmi Nolan Hematocrit (Bld) [Volume fraction] 23.7 % Critically low 42.0-54.0 [facility] Comment on above: Performed By: #### C BC #### [facility] [address] [place] [address] Dr. Rashmi Nolan Hemoglobin (Bld) [Mass/Vol] 7.8 g/dL Critically low 14.0-18.0 [facility] Comment on above: Performed By: #### C BC #### [facility] [address] [place] [address] Dr. Rashmi Nolan IG # 0.01 10e3/ul Normal 0.00-0.03 [facility] Comment on above: Performed By: #### C BC #### [facility] [address] [place] [address] Dr. Rashmi Nolan IG % 0.2 % Normal 0.0-0.5 [facility] Comment on above: Performed By: #### C BC #### [facility] [address] [place] [address] Dr. Rashmi Nolan LYMPH # 0.9 103/ul Critically low 1.2-3.8 [facility] Comment on above: Performed By: #### C BC #### [facility] [address] [address] [address] Rashmi Nolan Lymphocytes/100 WBC (Bld) 19.6 % Critically low 20.5-60.0 [facility] Comment on above: Performed By: #### C BC #### [facility] [address] [place] [address] Dr. Rashmi Nolan MANUAL DIFF REQ NO Normal [facility] Comment on above: Performed By: #### C BC #### [facility] [address] [place] [address] Dr. Rashmi Nolan MCH (RBC) [Entitic mass] 34.7 pg Critically high 25.9-34.0 [facility] Comment on above: Performed By: #### C BC #### [facility] [address] [place] [address] Dr. Rashmi Nolan MCHC (RBC) [Mass/Vol] 32.9 g/dL Normal 29.9-35.2 [facility] Comment on above: Performed By: #### C BC #### [facility] [address] [place] [address] Dr. Rashmi Nolan MCV (RBC) [Entitic vol] 105.3 fL Critically high 80.0-94.0 [facility] Comment on above: Performed By: #### C BC #### [facility] [address] [place] [address] Dr. Rashmi Nolan MONO # 0.3 103/ul Normal 0.3-0.8 [facility] Comment on above: Performed By: #### C BC #### [facility] [address] [place] [address] Dr. Rashmi Nolan Monocytes/100 WBC (Bld) 7.2 % Normal 1.7-12.0 [facility] Comment on above: Performed By: #### C BC #### [facility] [address] [place] [address] Dr. Rashmi Nolan NEUT # 3.0 103/ul Normal 1.4-6.5 [facility] Comment on above: Performed By: #### C BC #### [facility] [address] [address] [address] Rashmi Nolan Neutrophils/100 WBC (Bld) 67.4 % Normal 43.0-75.0 [facility] Comment on above: Performed By: #### C BC #### [facility] [address] [address] [address] Rashmi Nolan Platelet mean volume (Bld) [Entitic vol] 9.8 fL Normal 9.5-13.5 [facility] Comment on above: Performed By: #### C BC #### [facility] [address] [address] [address] Rashmi Nolan PLT 156 103/ul Normal 150-450 [facility] Comment on above: Performed By: #### C BC #### [facility] [address] [address] [address] Rashmi Nolan RBC 2.25 106/ul Critically low 4.70-6.10 [facility] Comment on above: Performed By: #### C BC #### [facility] [address] [address] [address] Rashmi Nolan WBC 4.5 103/ul Normal 4.0-11.0 [facility] Comment on above: Performed By: #### C BC #### [facility] [address] [address] [address] Rashmi Nolan CHEMISTRYOrdered By: SYSTEM SYSTEM on 12-11-2022 Iron binding capacity [Mass/Vol] 417 ug/dL High 250 - 400 mcg/dL [facility] Remisol Transferrin [Mass/Vol] 298 mg/dL Normal 200 - 370 mg/dL [facility] Remisol Consent Formson 12-11-2022 Consent Forms [id number] .[id number] [facility] HEMATOLOGYOrdered By: SYSTEM SYSTEM on 12-11-2022 [...] 2.4 E12/L Low 4.3 - 5.9 E12/L [facility] HemeAutoSS WBC corrected for nucl RBC Auto (Bld) [#/Vol] 5.2 E9/L Normal 4.0 - 11.0 E9/L [facility] MICRO OTHER TESTSOrdered By: Daniella Case on 12-11-2022 Occult Bld Stl Positive *ABN* (12/11/22 12:14 PM) Invalid Interpretation Code Negative [facility] Man Sero PROF 14(COMP METB)on 023 Albumin [Mass/Vol] 3.8 g/dL Normal 3.4-5.0 [facility] Comment on above: Performed By: #### B MP #### [facility] [address] [place] [address] Dr. Rashmi Nolan Albumin/Globulin [Mass ratio] 1.1 {ratio} Normal [facility] Comment on above: Performed By: #### B MP #### [facility] [address] [place] [address] Dr. Rashmi Nolan ALP [Catalytic activity/Vol] 178 U/L Critically high 46-116 [facility] Comment on above: Performed By: #### B MP #### [facility] [address] [place] [address] Dr. Rashmi Nolan ALT [Catalytic activity/Vol] 17 U/L Normal 16-63 [facility] Comment on above: Performed By: #### B MP #### [facility] [address] [address] [address] Rashmi Nolan Anion gap [Moles/Vol] 15.6 mmol/L Normal [facility] Comment on above: Performed By: #### B MP #### [facility] [address] [place] [address] Dr. Rashmi Nolan AST [Catalytic activity/Vol] 12 U/L Critically low 15-37 [facility] Comment on above: Performed By: #### B MP #### [facility] [address] [place] [address] Dr. Rashmi Nolan Bilirubin [Mass/Vol] 0.2 mg/dL Normal 0.2-1.0 [facility] Comment on above: Performed By: #### B MP #### [facility] [address] [place] [address] Dr. Rashmi Nolan Calcium [Mass/Vol] 9.5 mg/dL Normal 8.5-10.1 [facility] Comment on above: Performed By: #### B MP #### [facility] [address] [address] [address] Rashmi Nolan Chloride [Moles/Vol] 109 mmol/L Critically high 98-107 [facility] Comment on above: Performed By: #### B MP #### [facility] [address] [place] [address] Dr. Rashmi Nolan CO2 [Moles/Vol] 22.5 mmol/L Normal 21.0-32.0 [facility] Comment on above: Performed By: #### B MP #### [facility] [address] [place] [address] Dr. Rashmi Nolan Creatinine [Mass/Vol] 2.11 mg/dL Critically high 0.70-1.30 [facility] Comment on above: Performed By: #### B MP #### [facility] [address] [place] [address] Dr. Rashmi Nolan EGFR-AF GRENADIAN 36 mL/min/1.73m2 Critically low >=60 [facility] Comment on above: Performed By: #### B MP #### [facility] [address] [place] [address] Dr. Rashmi Nolan EGFR-NON AF GRENADIAN 30 mL/min/1.73m2 Critically low >=60 [facility] Comment on above: Performed By: #### B MP #### [facility] [address] [place] [address] Dr. Rashmi Nolan Globulin (S) [Mass/Vol] 3.4 g/dL Normal [facility] Comment on above: Performed By: #### B MP #### [facility] [address] [address] [address] Rashmi Nolan Glucose [Mass/Vol] 115 mg/dL Critically high 74-106 [facility] Comment on above: Performed By: #### B MP #### [facility] [address] [address] [address] Rashmi Nolan Potassium [Moles/Vol] 5.1 mmol/L Normal 3.5-5.1 [facility] Comment on above: Performed By: #### B MP #### [facility] [address] [address] [address] Rashmi Nolan Protein [Mass/Vol] 7.2 g/dL Normal 6.4-8.2 [facility] Comment on above: Performed By: #### B MP #### [facility] [address] [address] [address] Rashmi Nolan Sodium [Moles/Vol] 142 mmol/L Normal 136-145 [facility] Comment on above: Performed By: #### B MP #### [facility] [address] [address] [address] Rashmi Nolan Urea nitrogen [Mass/Vol] 57.0 mg/dL Critically high 7.0-18.0 [facility] Comment on above: Performed By: #### B MP #### [facility] [address] [place] [address] Dr. Rashmi Nolan Urea nitrogen/Creatinine [Mass ratio] 27.0 mg/mg Normal [facility] Comment on above: Performed By: #### B MP #### [facility] [address] [place] [address] Dr. Rashmi Nolan PROTIMEon 12-11-2022 INR Coag (PPP) [Relative time] 1.95 {INR} Normal [facility] Comment on above: Performed By: #### P T, PTT #### [facility] [address] [address] [address] Rashmi Nolan INR GUIDELINES SEE BELOW Normal [facility] Comment on above: Result Comment: ENOC RED INR: 2.0 - 3.0 CONDITIONS NOT LISTED BELOW 2.5 - 3.5 FOR PROSTHETIC HEART VALVE REPLACEMENT 2.5 - 3.5 RECURRENT THROMBOSIS Performed By: #### P T, PTT #### [facility] [address] [address] [address] Rashmi Nolan PT Coag (PPP) [Time] 19.9 s Critically high 9.0-11.6 [facility] Comment on above: Performed By: #### P T, PTT #### [facility] [address] [address] [address] Rashmi Nolan PTTon 12-11-2022 aPTT Coag (Bld) [Time] 30.3 s Normal 22.3-36.2 [facility] Comment on above: Performed By: #### P T, PTT #### [facility] [address] [address] [address] Rashmi Nolan TYPE AND SCREENon 12-11-2022 TYPE AND SCREEN Negative Normal [facility] Comment on above: Performed By: #### C BC #### [facility] [address] [address] [address] Rashmi Nolan XR CHEST 1 Von [...] STEPHANIE LIU Date: 2022-12-11 21:04 Normal [facility] In[facility] Patient Summaryon 12-10-2022 [place] [address] Patient Discharge Instructions Name: RY LERNER : 1935 Patient Address: [address] [place] [address] Primary Care Provider: Name: John Nieves MD After you are discharged if you find you have any questions, please, call [phone] ext [phone] to speak to a nurse. 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 If you or anyone you know is experiencing suicidal thoughts, mental health, alcohol and/or drug addiction problems; contact the [facility] 18/02 Crisis Hotline -Text 4HFFD to 300513. If you received any narcotics, sedation, or [...] business decisions or sign any legal documents [facility] would like to thank you for allowing us to assist you with your healthcare needs. The following includes patient education materials and information regarding your injury/illness. RY LERNER has been given the following list of follow-up instructions, prescriptions, and patient education materials: Follow-up Instructions With: Address: When: Ward Martinez [address] [place] [address], [address] [place] [address] Business (1) 12/18/2022 1:30 PM Medications During [...] 3. DO NOT lift heavy objects or color technician forcefully with your hand 4. Change [...] or concerns, please call the office at [phone] 7. Follow up as scheduled Viruses or [...] Control and Prevention (more content not included)... [facility] Preoperative [facility] Pre-Op Record Summary Primary Physician: Ward Martinez DO Finalized Date/Time: 12/10/22 15:29:41 Pt. Name: RY LERNER /Sex: 1935 MALE Med Rec #: [id number] Physician: Ward Martinez DO Financial #: [id number] Pt. Type: D Room/Bed: / Admit/Disch: 12/10/22 [...] Palmer RN Document Signatures Signed By: Maile Plamer RN 12/10/22 15:29 Normal [facility] Patient Handouton 12-10-[address] 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 Keep your hand elevated above your elbow for the first 24 hours after surgery 2. Wiggle your fingers frequently while awake 3. DO NOT lift heavy objects or color technician forcefully with your hand 4. Change [...] or concerns, please call the office at [phone] 7. Follow up as scheduled Normal [facility] MAGNESIUMon 11-06-2022 Magnesium [Mass/Vol] 2.2 mg/dL Normal 1.8-2.4 [facility] Comment on above: Performed By: #### B MP, MG #### [facility] [address] [address] [address] Rashmi Nolan PROF CHEM 8 (BAS METB)on Anion gap [Moles/Vol] 15.0 mmol/L Normal [facility] Comment on above: Performed By: #### B MP, MG #### [facility] [address] [address] [address] Rashmi Nolan Calcium [Mass/Vol] 10.0 mg/dL Normal 8.5-10.1 [facility] Comment on above: Performed By: #### B MP, MG #### [facility] [address] [address] [address] Rashmi Nolan Chloride [Moles/Vol] 108 mmol/L Critically high 98-107 [facility] Comment on above: Performed By: #### B MP, MG #### [facility] [address] [address] [address] Rashmi Nolan CO2 [Moles/Vol] 25.4 mmol/L Normal 21.0-32.0 [facility] Comment on above: Performed By: #### B MP, MG #### [facility] [address] [address] [address] Rashmi Nolan Creatinine [Mass/Vol] 1.98 mg/dL Critically high 0.70-1.30 [facility] Comment on above: Performed By: #### B MP, MG #### [facility] [address] [address] [address] Rashmi Nolan EGFR-AF GRENADIAN 39 mL/min/1.73m2 Critically low >=60 [facility] Comment on above: Performed By: #### B MP, MG #### [facility] [address] [address] [address] Rashmi Nolan EGFR-NON AF GRENADIAN 32 mL/min/1.73m2 Critically low >=60 [facility] Comment on above: Performed By: #### B MP, MG #### [facility] [address] [place] [address] Dr. Rashmi Nolan Glucose [Mass/Vol] 99 mg/dL Normal 74-106 [facility] Comment on above: Performed By: #### B MP, MG #### [facility] [address] [place] [address] Dr. Rashmi Nolan Potassium [Moles/Vol] 5.4 mmol/L Critically high 3.5-5.1 [facility] Comment on above: Performed By: #### B MP, MG #### [facility] [address] [place] [address] Dr. Rashmi Nolan Sodium [Moles/Vol] 143 mmol/L Normal 136-145 [facility] Comment on above: Performed By: #### B MP, MG #### [facility] [address] [place] [address] Dr. Rashmi Nolan Urea nitrogen [Mass/Vol] 52.0 mg/dL Critically high 7.0-18.0 [facility] Comment on above: Performed By: #### B MP, MG #### [facility] [address] [place] [address] Dr. Rashmi Noaln Urea nitrogen/Creatinine [Mass ratio] 26.3 mg/mg Normal [facility] Comment on above: Performed By: #### B MP, MG #### [facility] [address] [place] [address] Dr. Rashmi Nolan VIT B12 AND FOLATEon 023 Cobalamin (Vitamin B12) [Mass/Vol] 514.0 pg/mL Normal 193.0-986.0 [facility] Comment on above: Performed By: #### B MP #### [facility] [address] [place] [address] Dr. Rashmi Nolan FOLATE 10.00 ng/mL Normal 8.60-58.90 [facility] Comment on above: Performed By: #### B MP #### [facility] [address] [place] [address] Dr. Rashmi Nolan CBC AUTO DIFFon 08-16-2022 BASO # 0.0 103/ul Normal 0.0-0.1 [facility] Comment on above: Performed By: #### B MP #### [facility] [address] [place] [address] Dr. Rashmi Nolan Basophils/100 WBC (Bld) 0.8 % Normal 0.2-2.0 [facility] Comment on above: Performed By: #### B MP #### [facility] [address] [place] [address] Dr. Rashmi Nolan EO # 0.3 103/ul Normal 0.0-0.7 [facility] Comment on above: Performed By: #### B MP #### [facility] [address] [place] [address] Dr. Rashmi Nolan Eosinophils/100 WBC (Bld) 7.8 % Critically high 0.9-7.0 [facility] Comment on above: Performed By: #### B MP #### [facility] [address] [place] [address] Dr. Rashmi Nolan Erythrocyte distribution width (RBC) [Ratio] 13.2 % Normal 11.0-15.0 [facility] Comment on above: Performed By: #### B MP #### [facility] [address] [place] [address] Dr. Rashmi Nolan Hematocrit (Bld) [Volume fraction] 33.2 % Critically low 42.0-54.0 [facility] Comment on above: Performed By: #### B MP #### [facility] [address] [place] [address] Dr. Rashmi Nolan Hemoglobin (Bld) [Mass/Vol] 10.8 g/dL Critically low 14.0-18.0 [facility] Comment on above: Performed By: #### B MP #### [facility] [address] [place] [address] Dr. Rashmi Nolan IG # 0.01 10e3/ul Normal 0.00-0.03 [facility] Comment on above: Performed By: #### B MP #### [facility] [address] [place] [address] Dr. Rashmi Nolan IG % 0.3 % Normal 0.0-0.5 [facility] Comment on above: Performed By: #### B MP #### [facility] [address] [place] [address] Dr. Rashmi Nolan LYMPH # 1.0 103/ul Critically low 1.2-3.8 [facility] Comment on above: Performed By: #### B MP #### [facility] [address] [place] [address] Dr. Rashmi Nolan Lymphocytes/100 WBC (Bld) 24.7 % Normal 20.5-60.0 [facility] Comment on above: Performed By: #### B MP #### [facility] [address] [place] [address] Dr. Rashmi Nolan MANUAL DIFF REQ NO Normal [facility] Comment on above: Performed By: #### B MP #### [facility] [address] [place] [address] Dr. Rashmi Nolan MCH (RBC) [Entitic mass] 33.0 pg Normal 25.9-34.0 [facility] Comment on above: Performed By: #### B MP #### [facility] [address] [place] [address] Dr. Rashmi Nolan MCHC (RBC) [Mass/Vol] 32.5 g/dL Normal 29.9-35.2 [facility] Comment on above: Performed By: #### B MP #### [facility] [address] [place] [address] Dr. Rashmi Nolan MCV (RBC) [Entitic vol] 101.5 fL Critically high 80.0-94.0 [facility] Comment on above: Performed By: #### B MP #### [facility] [address] [place] [address] Dr. Rashmi Nolan MONO # 0.4 103/ul Normal 0.3-0.8 [facility] Comment on above: Performed By: #### B MP #### [facility] [address] [place] [address] Dr. Rashmi Nolan Monocytes/100 WBC (Bld) 10.7 % Normal 1.7-12.0 [facility] Comment on above: Performed By: #### B MP #### [facility] [address] [place] [address] Dr. Rashmi Nolan NEUT # 2.1 103/ul Normal 1.4-6.5 [facility] Comment on above: Performed By: #### B MP #### [facility] [address] [address] [address] Rashmi Nolan Neutrophils/100 WBC (Bld) 55.7 % Normal 43.0-75.0 [facility] Comment on above: Performed By: #### B MP #### [facility] [address] [place] [address] Dr. Rashmi Nolan Platelet mean volume (Bld) [Entitic vol] 10.5 fL Normal 9.5-13.5 [facility] Comment on above: Performed By: #### B MP #### [facility] [address] [place] [address] Dr. Rashmi Nolan PLT 160 103/ul Normal 150-450 [facility] Comment on above: Performed By: #### B MP #### [facility] [address] [place] [address] Dr. Rashmi Nolan RBC 3.27 106/ul Critically low 4.70-6.10 [facility] Comment on above: Performed By: #### B MP #### [facility] [address] [place] [address] Dr. Rashmi Nolan WBC 3.8 103/ul Critically low 4.0-11.0 [facility] Comment on above: Performed By: #### B MP #### [facility] [address] [place] [address] Dr. Rashmi Nolan LIPID PROFILEon 08-16-2022 CHOL-HDL RATIO NORM SEE BELOW Normal [facility] Comment on above: Result Comment: 3.3 - 4.4 LOW RISK 4.4 - 7.1 AVERAGE RISK 7.1 - 11.0 MODERATE RISK >11.0 HIGH RISK Performed By: #### B MP #### [facility] [address] [address] [address] Rahsmi Nolan Cholesterol [Mass/Vol] 166 mg/dL Normal <=200 [facility] Comment on above: Performed By: #### B MP #### [facility] [address] [address] [address] Rashmi Nolan Cholesterol in HDL [Mass/Vol] 42 mg/dL Normal 40-60 [facility] Comment on above: Performed By: #### B MP #### [facility] [address] [address] [address] Rashmi Nolan Cholesterol in LDL [Mass/Vol] 110.4 mg/dL Normal [facility] Comment on above: Performed By: #### B MP #### [facility] [address] [address] [address] Rashmi Nolan Cholesterol.total/Cho lesterol in HDL [Mass ratio] 4.0 {ratio} Normal [facility] Comment on above: Performed By: #### B MP #### [facility] [address] [address] [address] Rashmi Nolan HDL NORMAL > or = 60 mg/dl - LO W CARDIOVASCULAR RISK <40 mg/dl - HIGH CARDIOVASCULAR RISK Normal [facility] Comment on above: Performed By: #### B MP #### [facility] [address] [address] [address] Rashmi Nolan LDL CALC NORMAL SEE BELOW Normal [facility] Comment on above: Result Comment: <100 mg/dl OPTIMAL 100 - 129 mg/dl NEAR OR ABOVE OPTIMAL 130 - 159 mg/dl BORDERLINE HIGH 160 - 189 mg/dl HIGH >190 mg/dl VERY HIGH Performed By: #### B MP #### [facility] [address] [address] [address] Rashmi Nolan Triglyceride [Mass/Vol] 68 mg/dL Normal <=150 [facility] Comment on above: Performed By: #### B MP #### [facility] [address] [address] [address] Rashmi Nolan VLDL CALC 13.6 mg/dL Normal [facility] Comment on above: Performed By: #### B MP #### [facility] [address] [address] [address] Rashmi Nolan PROF 14(COMP METB)on 023 Albumin [Mass/Vol] 3.9 g/dL Normal 3.4-5.0 [facility] Comment on above: Performed By: #### B MP #### [facility] [address] [address] [address] Rashmi Nolan Albumin/Globulin [Mass ratio] 1.1 {ratio} Normal [facility] Comment on above: Performed By: #### B MP #### [facility] [address] [address] [address] Rashmi Nolan ALP [Catalytic activity/Vol] 190 U/L Critically high 46-116 [facility] Comment on above: Performed By: #### B MP #### [facility] [address] [place] [address] Dr. Rashmi Nolan ALT [Catalytic activity/Vol] 15 U/L Critically low 16-63 [facility] Comment on above: Performed By: #### B MP #### [facility] [address] [address] [address] Rashmi Nolan Anion gap [Moles/Vol] 15.2 mmol/L Normal [facility] Comment on above: Performed By: #### B MP #### [facility] [address] [place] [address] Dr. Rashmi Nolan AST [Catalytic activity/Vol] 17 U/L Normal 15-37 [facility] Comment on above: Performed By: #### B MP #### [facility] [address] [place] [address] Dr. Rashmi Nolan Bilirubin [Mass/Vol] 0.4 mg/dL Normal 0.2-1.0 [facility] Comment on above: Performed By: #### B MP #### [facility] [address] [place] [address] Dr. Rashmi Nolan Calcium [Mass/Vol] 10.0 mg/dL Normal 8.5-10.1 [facility] Comment on above: Performed By: #### B MP #### [facility] [address] [address] [address] Rashmi Nolan Chloride [Moles/Vol] 108 mmol/L Critically high 98-107 [facility] Comment on above: Performed By: #### B MP #### [facility] [address] [address] [address] Rashmi Nolan CO2 [Moles/Vol] 25.8 mmol/L Normal 21.0-32.0 [facility] Comment on above: Performed By: #### B MP #### [facility] [address] [address] [address] Rashmi Nolan Creatinine [Mass/Vol] 1.78 mg/dL Critically high 0.70-1.30 [facility] Comment on above: Performed By: #### B MP #### [facility] [address] [address] [address] Rashmi Nolan EGFR-AF GRENADIAN 44 mL/min/1.73m2 Critically low >=60 [facility] Comment on above: Performed By: #### B MP #### [facility] [address] [address] [address] Rashmi Nolan EGFR-NON AF GRENADIAN 36 mL/min/1.73m2 Critically low >=60 [facility] Comment on above: Performed By: #### B MP #### [facility] [address] [address] [address] Rashmi Nolan Globulin (S) [Mass/Vol] 3.7 g/dL Normal [facility] Comment on above: Performed By: #### B MP #### [facility] [address] [address] [address] Rashmi Nolan Glucose [Mass/Vol] 100 mg/dL Normal 74-106 [facility] Comment on above: Performed By: #### B MP #### [facility] [address] [address] [address] Rashmi Nolan Potassium [Moles/Vol] 5.0 mmol/L Normal 3.5-5.1 [facility] Comment on above: Performed By: #### B MP #### [facility] [address] [address] [address] Rashmi Nolan Protein [Mass/Vol] 7.6 g/dL Normal 6.4-8.2 [facility] Comment on above: Performed By: #### B MP #### [facility] [address] [address] [address] Rashmi Nolan Sodium [Moles/Vol] 144 mmol/L Normal 136-145 [facility] Comment on above: Performed By: #### B MP #### [facility] [address] [address] [address] Rashmi Nolan Urea nitrogen [Mass/Vol] 52.0 mg/dL Critically high 7.0-18.0 [facility] Comment on above: Performed By: #### B MP #### [facility] [address] [address] [address] Rashmi Nolan Urea nitrogen/Creatinine [Mass ratio] 29.2 mg/mg Normal [facility] Comment on above: Performed By: #### B MP #### [facility] [address] [address] [address] Rashmi Nolan PROF CHEM 8 (BAS METB)on Anion gap [Moles/Vol] 13.3 mmol/L Normal [facility] Comment on above: Performed By: #### C BC #### [facility] [address] [place] [address] Dr. Rashmi Nolan Calcium [Mass/Vol] 10.1 mg/dL Normal 8.5-10.1 [facility] Comment on above: Performed By: #### C BC #### [facility] [address] [address] [address] Rashmi Nolan Chloride [Moles/Vol] 104 mmol/L Normal 98-107 [facility] Comment on above: Performed By: #### C BC #### [facility] [address] [place] [address] Dr. Rashmi Nolan CO2 [Moles/Vol] 28.7 mmol/L Normal 21.0-32.0 [facility] Comment on above: Performed By: #### C BC #### [facility] [address] [address] [address] Rashmi Nolan Creatinine [Mass/Vol] 1.87 mg/dL Critically high 0.70-1.30 [facility] Comment on above: Performed By: #### C BC #### [facility] [address] [address] [address] Rashmi Nolan EGFR-AF GRENADIAN 42 mL/min/1.73m2 Critically low >=60 [facility] Comment on above: Performed By: #### C BC #### [facility] [address] [address] [address] Rashmi Nolan EGFR-NON AF GRENADIAN 34 mL/min/1.73m2 Critically low >=60 [facility] Comment on above: Performed By: #### C BC #### [facility] [address] [address] [address] Rashmi Nolan Glucose [Mass/Vol] 101 mg/dL Normal 74-106 [facility] Comment on above: Performed By: #### C BC #### [facility] [address] [address] [address] Rashmi Nolan Potassium [Moles/Vol] 5.0 mmol/L Normal 3.5-5.1 [facility] Comment on above: Performed By: #### C BC #### [facility] [address] [address] [address] Rashmi Nolan Sodium [Moles/Vol] 141 mmol/L Normal 136-145 [facility] Comment on above: Performed By: #### C BC #### [facility] [address] [address] [address] Rashmi Nolan Urea nitrogen [Mass/Vol] 41.0 mg/dL Critically high 7.0-18.0 [facility] Comment on above: Performed By: #### C BC #### [facility] [address] [address] [address] Rashmi Nolan Urea nitrogen/Creatinine [Mass ratio] 21.9 mg/mg Normal [facility] Comment on above: Performed By: #### C BC #### [facility] [address] [place] [address] Dr. Rashmi Nolan COVID/FLU RT-PCRon 2 SARS-CoV-2 (COVID-19) RNA ETELVINA+probe Ql (Unsp spec) Positive [facility] irisnote Other COVID/FLU RT-PCR Negative [facility] irisnote Other BNPon 02-15-2022 Natriuretic peptide B (Bld) [Mass/Vol] 1653.0 pg/mL Normal <=1,800.0 [facility] Comment on above: Performed By: #### C BC #### [facility] [address] [place] [address] Dr. Rashmi Nolan PROF CHEM 8 (BAS METB)on Anion gap [Moles/Vol] 15.8 mmol/L Normal [facility] Comment on above: Performed By: #### C BC #### [facility] [address] [place] [address] Dr. Rashmi Nolan Calcium [Mass/Vol] 9.6 mg/dL Normal 8.5-10.1 [facility] Comment on above: Performed By: #### C BC #### [facility] [address] [place] [address] Dr. Rashmi Nolan Chloride [Moles/Vol] 108 mmol/L Critically high 98-107 [facility] Comment on above: Performed By: #### C BC #### [facility] [address] [place] [address] Dr. Rashmi Nolan CO2 [Moles/Vol] 24.2 mmol/L Normal 21.0-32.0 [facility] Comment on above: Performed By: #### C BC #### [facility] [address] [place] [address] Dr. Rashmi Nolan Creatinine [Mass/Vol] 1.87 mg/dL Critically high 0.70-1.30 [facility] Comment on above: Performed By: #### C BC #### [facility] [address] [place] [address] Dr. Rashmi Nolan EGFR-AF GRENADIAN 42 mL/min/1.73m2 Critically low >=60 [facility] Comment on above: Performed By: #### C BC #### [facility] [address] [place] [address] Dr. Rashmi Nolan EGFR-NON AF GRE[place]DIAN 34 mL/min/1.73m2 Critically low >=60 [facility] Comment on above: Performed By: #### C BC #### [facility] [address] [place] [address] Dr. Rashmi Nolan Glucose [Mass/Vol] 107 mg/dL Critically high 74-106 [facility] Comment on above: Performed By: #### C BC #### [facility] [address] [place] [address] Dr. Rashmi Nolan Potassium [Moles/Vol] 5.0 mmol/L Normal 3.5-5.1 [facility] Comment on above: Performed By: #### C BC #### [facility] [address] [place] [address] Dr. Rashmi Nolan Sodium [Moles/Vol] 143 mmol/L Normal 136-145 [facility] Comment on above: Performed By: #### C BC #### [facility] [address] [place] [address] Dr. Rashmi Nolan Urea nitrogen [Mass/Vol] 28.0 mg/dL Critically high 7.0-18.0 [facility] Comment on above: Performed By: #### C BC #### [facility] [address] [place] [address] Dr. Rashmi Nolan Urea nitrogen/Creatinine [Mass ratio] 15.0 mg/mg Normal [facility] Comment on above: Performed By: #### C BC #### [facility] [address] [place] [address] Dr. Rashmi Nolan APTTon 10-13-2021 aPTT Coag (Bld) [Time] 36.7 s High 25.0-35.0 [facility] Comment on above: Result Comment: ALL RESULTS [...] PURPOSE. Performed By: #### 5 0103 #### [facility] [address] [place] [address], [facility] BASIC METABOLIC PANELon 09-26 Calcium [Mass/Vol] 9.7 mg/dL Normal 8.6-10.3 [facility] Comment on above: Performed By: #### 0 0071, 09717, 31966, 96795 #### [facility] [address] [place] [address], [facility] Chloride [Moles/Vol] 108 mmol/L High 98-107 [facility] Comment on above: Performed By: #### 0 0071, [id number], 29423, 44044 #### [facility] [address] [place] [address], [facility] CO2 [Moles/Vol] 23 mmol/L Normal 21-31 [facility] Comment on above: Performed By: #### 0 0071, 69032, 03499, 15659 #### [facility] [address] [place] [address], [facility] Creatinine [Mass/Vol] 1.98 mg/dL High 0.70-1.30 [facility] Comment on above: Performed By: #### 0 0071, 20678, 32004, 39566 #### [facility] [address] eGFR- 39 ml/min/1.73sq m Abnormal >60 [facility] Comment on above: Result Comment: Calc ulation may not be valid for patients over 70 years Performed By: #### 0 0071, 15397, 60779, 33561 #### [facility] [address] eGFR- non- 32 ml/min/1.73sq m Abnormal >60 [facility] Comment on above: Result Comment: Calc ulation may not be valid for patients over 70 years Performed By: #### 0 0071, 82847, 99156, 07586 #### [facility] [address] [place] [address], [facility] Glucose [Mass/Vol] 88 mg/dL Normal 70-100 [facility] Comment on above: Performed By: #### 0 0071, 07273, 77160, 52967 #### [facility] [address] [place] [address], [place] Potassium [Moles/Vol] 4.8 mmol/L Normal 3.5-5.1 [facility] Comment on above: Performed By: #### 0 0071, 05212, 62735, 35643 #### [facility] [address] [place] [address], [place] Sodium [Moles/Vol] 138 mmol/L Normal 136-145 [facility] Comment on above: Performed By: #### 0 0071, 71186, 84031, 06026 #### [facility] [address] [place] [address], [facility] Urea nitrogen [Mass/Vol] 46 mg/dL High 7-25 [facility] Comment on above: Performed By: #### 0 0071, 77372, 94397, 83428 #### [facility] [address] [place] [address], [facility] BNP EDon 10-13-2021 Natriuretic peptide B (Bld) [Mass/Vol] 428 pg/mL High 0-100 [facility] Comment on above: Result Comment: Give n the appropriate clinical setting a BNP result of >100 pg/mL indicates congestive heart failure. Performed By: #### 3 0935 #### [facility] [address] [place] [address], [facility] CBC W/DIFFon 10-13-2021 ABS IMM GRANS 0.0 10*3/uL Normal 0.0-0.2 [facility] Comment on above: Performed By: #### 5 0103 #### [facility] [address] [place] [address], [facility] ABS NEUTROPHILS 2.8 10*3/uL Normal 1.6-7.6 [facility] Comment on above: Performed By: #### 5 0103 #### [facility] [address] [place] [place] [address], [facility] Basophils (Bld) [#/Vol] 0.0 10*3/uL Normal 0.0-0.2 [facility] Comment on above: Performed By: #### 5 0103 #### [facility] [address] [place] [address], [facility] Basophils/100 WBC (Bld) 0.5 % Normal 0.0-1.0 [facility] Comment on above: Performed By: #### 5 0103 #### [facility] [address] [place] [address], [facility] Eosinophils (Bld) [#/Vol] 0.3 10*3/uL Normal 0.0-0.5 [facility] Comment on above: Performed By: #### 5 0103 #### [facility] [address] [place] [address], [facility] Eosinophils/100 WBC (Bld) 7.4 % High 0.0-6.0 [facility] Comment on above: Performed By: #### 5 0103 #### [facility] [address] [place] [address], [facility] Erythrocyte distribution width (RBC) [Ratio] 13.9 % Normal 11.5-15.0 [facility] Comment on above: Performed By: #### 5 3 #### [facility] [address] [place] [address], [facility] Hematocrit (Bld) [Volume fraction] 33.5 % Low 39.0-50.0 [facility] Comment on above: Performed By: #### 5 0103 #### [facility] [address] [facility] [place] [address], [facility] Hemoglobin (Bld) [Mass/Vol] 11.4 g/dL Low 13.0-17.0 [facility] Comment on above: Performed By: #### 5 0103 #### [facility] [address] [facility] [place] [address], [facility] IMMATURE GRANS 0.2 % Normal 0.0-1.0 [facility] Comment on above: Performed By: #### 5 0103 #### [facility] [address] [facility]. [address] Lymphocytes (Bld) [#/Vol] 0.9 10*3/uL Low 1.2-4.0 [facility] Comment on above: Performed By: #### 5 0103 #### [facility] [address] [facility] [place] [address], [facility] Lymphocytes/100 WBC (Bld) 20.1 % Normal 20.0-45.0 [facility] Comment on above: Performed By: #### 5 0103 #### [facility] [address] [facility]. [address] MCH (RBC) [Entitic mass] 33.1 pg High 27.0-33.0 [facility] Comment on above: Performed By: #### 5 0103 #### [facility] [address] [facility] [place] [address], [facility] MCHC (RBC) [Mass/Vol] 34.0 g/dL Normal 32.0-35.0 [facility] Comment on above: Performed By: #### 5 0103 #### [facility] [address] [facility] [place] [address] [place] MCV (RBC) [Entitic vol] 97.4 fL Normal 82.0-98.0 [facility] Comment on above: Performed By: #### 5 0103 #### [facility] [address] [place] [address], [facility] Monocytes (Bld) [#/Vol] 0.4 10*3/uL Normal 0.1-1.0 [facility] Comment on above: Performed By: #### 5 0103 #### [facility] [address] [place] [address], [facility] MONOS 8.4 % Normal 5.0-12.0 [facility] Comment on above: Performed By: #### 5 102 #### [facility] [address] [place] [address], [facility] Neutrophils/100 WBC (Bld) 63.4 % Normal 40.0-72.0 [facility] Comment on above: Performed By: #### 102 #### [facility] [address] [place] [id number], [facility] Nucleated RBC/100 WBC (Bld) [Ratio] 0 % Normal 0-0 [facility] Comment on above: Performed By: #### 5 102 #### [facility] [address] [place] [address], [place] PLAT CNT 116 10*3/uL Low 150-400 [facility] Comment on above: Performed By: #### 5 102 #### [facility] [address] [place] [address], [facility] RBC (Bld) [#/Vol] 3.44 10*6/uL Low 4.20-5.70 [facility] Comment on above: Performed By: #### 102 #### [facility] [address] [place] [address], [place] WBC (Bld) [#/Vol] 4.43 10*3/uL Normal 4.00-10.60 [facility] Comment on above: Performed By: #### 5 0103 #### [facility] [address] [place] [address], [facility] Cardiovascular Lab Reporton 10-13-2021 Cardiovascular Lab Report [facility] [id number] Physician: Royal Gandara MD Department of Service Date: 10/13/2021 Medicine Birthdate: 1935 Division of Room #: [facility] Cardiology Adult Cardiovascular Services [facility] [address] [place], [place] [address] Cardiovascular Laboratory Report PACEMAKER IMPLANT PROCEDURE NOTE DATE OF PROCEDURE: 10/13/2021 PERFORMING PHYSICIAN: Dr. Royal Gandara CONSENT: Patient LOCATION: EP Lab PROCEDURE PERFORMED: 1. Implantation of pacemaker ([employer]) 2. Ultrasound guided venous access [...] previously recommended a pacemaker, however, presented to [place] ED with a ventricular rate in the 30s. He was subsequently transferred over to [facility] ED for a pacemaker placement. Patient [...] using modified seldinger technique using a 5 Mexican micro-puncture needle on one occasion and 0.35 wire was placed. Local infiltration of 1% Lidocaine was performed, and an incision was created in the left upper chest. Dissection was then performed using cautery down to the fascial plane above the muscle. A small pocket was created for the device. 6 Mexican Safesheaths were placed over the wire. An active fixation [employer] pacing lead was then delivered [...] immediate procedural complications were noted. Device info: [employer] Accolade MRI EL Model# L331 Serial# [id number] RV lead: Model# INGEVITY [id number] (59cms) Serial# [id number] Sensin.4mV Threshold: 0.6V@0.4ms Impedance: 598 Ohms POST [...] Gandara MD Date Trans: 10/13/2021 10:46 Alcides/oscar [id number] cc: Jason Silva M.D. [address] [place] [id number] Normal [facility] FRESH FROZEN PLASMA 1 UNITon 10-13-2021 PRODUCT CODE 1 E2701 Normal [facility] Comment on above: Order Comment: INR: 2.88 ,PTT: 36.7 at the time of order ;Indication: Other pacemaker placement Performed By: #### 8 [id number] #### [facility] [address] [place] [address], [facility] PRODUCT STATUS 1 RE Normal [facility] Comment on above: Order Comment: INR: 2.88 ,PTT: 36.7 at the time of order ;Indication: Other pacemaker placement Result Comment: Resu lt changed by IF on 10/19/2021 01:00. The previous value was XM. Performed By: #### 8 [id number] #### [facility] [address] [place] [address], [facility] UNIT ABO 1 O Normal [facility] Comment on above: Order Comment: INR: 2.88 ,PTT: 36.7 at the time of order ;Indication: Other pacemaker placement Performed By: #### 8 [id number] #### [facility] [address] [place] [address], [facility] UNIT ID 1 [id number] [facility] Comment on above: Order Comment: INR: 2.88 ,PTT: 36.7 at the time of order ;Indication: Other pacemaker placement Performed By: #### 8 [id number] #### [facility] [address] [place] [address], [facility] RH 1 Negative Normal [facility] Comment on above: Order Comment: INR: 2.88 ,PTT: 36.7 at the time of order ;Indication: Other pacemaker placement Performed By: #### 8 [id number] #### [facility] [address] [place] [address], [facility] LIVER BATTERYon 10-13-2021 Albumin [Mass/Vol] 4.0 g/dL Normal 3.5-5.7 [facility] Comment on above: Performed By: #### 0 0071, 77918, 00472, 82073 #### [facility] [address] [place] [address], [facility] ALKALINE PHOSPH 137 IU/L High 34-104 [facility] Comment on above: Performed By: #### 0 0071, 47259, 89022, 29752 #### [facility] [address] [place] [address], [facility] ALT [Catalytic activity/Vol] 29 U/L Normal 7-52 [facility] Comment on above: Performed By: #### 0 0071, 24584, 71338, 67718 #### [facility] [address] [place] [address], [facility] AST [Catalytic activity/Vol] 22 U/L Normal 13-39 [facility] Comment on above: Performed By: #### 0 0071, 30680, 70994, 64892 #### [facility] [address] [place] [address], [facility] Bilirubin [Mass/Vol] 0.7 mg/dL Normal 0.3-1.0 [facility] Comment on above: Performed By: #### 0 0071, 25255, 57648, 45413 #### [facility] [address] [place] [address], [facility] Bilirubin.direct [Mass/Vol] 0.1 mg/dL Normal 0.0-0.2 [facility] Comment on above: Performed By: #### 0 0071, 44937, 75356, 56283 #### [facility] [address] [place] [id number], [facility] Protein [Mass/Vol] 6.3 g/dL Normal 6.0-8.3 [facility] Comment on above: Performed By: #### 0 0071, 63796, 14924, 80426 #### [facility] [address] [place] [id number], [facility] MAGNESIUM BLOODon 10-13-2021 Magnesium [Mass/Vol] 2.0 mg/dL Normal 1.9-2.7 [facility] Comment on above: Performed By: #### 0 0071, 39851, 58020, 95372 #### [facility] [address] 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 Performed By: #### 3 2043 #### [place] [address], [facility] PORTABLE CHEST 1 VIEWon 09-26 PORTABLE CHEST 1 VIEW [facility] Department of Radiology [address] [place] [id number] Patient Name: RY LERNER : 1935 Sex: M Age: Race: White Pt. Location: [facility] Patient Status: E Ordered Date: 10/13/2021 [...] report. Electronically signed: Mark Aguilar. Transcribed by: [email or web address], User Resident: HUMBLE HERNANDEZ Electronically Signed by: MARK AGUILAR @ 10/13/2021 05:55 AM I personally read this/these film(s) with this resident Normal [facility] Comment on above: Order Comment: evalu ate for Infiltrates PROTHROMBIN TIMEon INR Coag (PPP) [Relative time] 2.88 {INR} High 0.91-1.16 [facility] Comment on above: Result Comment: ACCC [...] CHEST 1995;108:231S-246S. Performed By: #### 5 6101, 96538 #### [facility] [address] [place] [address], [facility] PT Coag (PPP) [Time] 30.0 s High 12.3-14.8 [facility] Comment on above: Result Comment: ALL RESULTS MUST BE INTERPRETED WITH RESPECT TO BLOOD DRAWING ARTIFACT OR DILUTION ERROR OF ANTICOAGULANT AT THE TIME OF SAMPLING. Performed By: #### 5 6101, [id number] #### [facility] [address] [place] [place] [address], [facility] TROPONIN-Ion 10-13-2021 Troponin I.cardiac [Mass/Vol] 0.05 ng/mL High 0.00-0.04 [facility] Comment on above: Result Comment: REFE JOSE RAMON RANGES: 0.00 - 0.04 ng/ml NORMAL 0.05 - 0.50 ng/ml INDETERMINATE > 0.50 ng/ml CONSISTENT WITH AN M.I. Performed By: #### 0 0071, 51218, 73085, 32795 #### [facility] [address] TYPE AND SCREENon 10-13-2021 ABO INTERPRETATION O Normal [facility] Comment on above: Performed By: #### 5 0103 #### [facility] [address] [place] [address], [facility] RH INTERPRETATION Positive Normal [facility] Comment on above: Performed By: #### 5 0103 #### [facility] [address] [place], [place] [id number] [place] [address] Vital Signs Date Time Vital Sign Value Performing Clinician Facility 10-24-2023 15:49-0400 Heart rate 65 /min Christelle Timmis [facility] 10-24-2023 15:49-0400 SaO2% (BldA) [Mass fraction] 99 % Christelle Timmis [facility] 10-24-2023 15:48-0400 Diastolic blood pressure 73 mm[Hg] Christelle Timmis [facility] 10-24-2023 15:48-0400 Mean blood pressure 98 mm[Hg] Christelle Timmis [facility] 10-24-2023 15:48-0400 Systolic blood pressure 148 mm[Hg] Christelle Timmis [facility] 10-24-2023 15:48-0400 Respiratory rate 16 /min Christelle Timmis [facility] 10-24-2023 14:52-0400 Heart rate 61 /min Christelle Timmis [facility] 10-24-2023 14:52-0400 SaO2% (BldA) [Mass fraction] 100 % Christelle Timmis [facility] 10-24-2023 14:51-0400 Diastolic blood pressure 72 mm[Hg] Christelle Timmis [facility] 10-24-2023 14:51-0400 Mean blood pressure 101 mm[Hg] Christelle Timmis [facility] 10-24-2023 14:51-0400 Systolic blood pressure 160 mm[Hg] Christelle Timmis [facility] 10-24-2023 14:42-0400 Body temperature 97.7 [degF] Christelle Timmis [facility] 10-24-2023 14:42-0400 Diastolic blood pressure 60 mm[Hg] Christelle Timmis [facility] 10-24-2023 14:42-0400 Heart rate 60 /min Christelle Timmis [facility] 10-24-2023 14:42-0400 Mean blood pressure 83 mm[Hg] Christelle Timmis [facility] 10-24-2023 14:42-0400 Respiratory rate 15 /min Christelle Timmis [facility] 10-24-2023 14:42-0400 SaO2% (BldA) [Mass fraction] 99 % Christelle Timmis [facility] 10-24-2023 14:42-0400 Systolic blood pressure 129 mm[Hg] Christelle Timmis [facility] 10-24-2023 14:30-0400 Mean blood pressure 77 mm[Hg] Christelle Timmis [facility] 10-24-2023 14:30-0400 Respiratory rate 12 /min Christelle Timmis [facility] 10-24-2023 14:25-0400 Mean blood pressure 84 mm[Hg] Christelle Timmis [facility] 10-24-2023 14:25-0400 Respiratory rate 16 /min Christelle Timmis [facility] 10-24-2023 14:20-0400 FIO2 35 1 Christelle Timmis [facility] 10-24-2023 14:17-0400 Body temperature 97.7 [degF] Christelle Timmis [facility] 10-24-2023 14:15-0400 FIO2 100 1 Christelle Timmis [facility] 10-24-2023 14:10-0400 FIO2 100 1 Christelle Timmis [facility] 10-24-2023 14:10-0400 Respiratory rate 6 /min Christelle Timmis [facility] 10-24-2023 14:05-0400 Respiratory rate 10 /min Christelle Timmis [facility] 10-24-2023 12:46-0400 Blood Pressure Location Christelle Timmis [facility] 10-24-2023 12:46-0400 Mean blood pressure 105 mm[Hg] Christelle Timmis [facility] 10-24-2023 12:43-0400 Body temperature 97.88 [degF] Christelle Timmis [facility] 10-24-2023 12:41-0400 Blood Pressure Location Christelle Timmis [facility] 10-23-2023 13:49-0400 Body temperature 98.06 [degF] Christelle Timmis [facility] 10-23-2023 13:49-0400 Diastolic blood pressure 57 mm[Hg] Christelle Timmis [facility] 10-23-2023 13:49-0400 Heart rate 60 /min Christelle Timmis [facility] 10-23-2023 13:49-0400 Mean blood pressure 79 mm[Hg] Christelle Timmis [facility] 10-23-2023 13:49-0400 Respiratory rate 17 /min Christelle Timmis [facility] 10-23-2023 13:49-0400 SaO2% (BldA) [Mass fraction] 98 % Christelle Timmis [facility] 10-23-2023 13:49-0400 Systolic blood pressure 122 mm[Hg] Christelle Timmis [facility] 10-23-2023 13:47-0400 Diastolic blood pressure 62 mm[Hg] Christelle Timmis [facility] 10-23-2023 13:47-0400 Systolic blood pressure 107 mm[Hg] Christelle Timmis [facility] 09-30-2023 14:26-0500 Blood Pressure Location Mary Jane Garza [facility] 09-30-2023 14:26-0500 Body temperature 95.72 [degF] Mary Jane Garza [facility] 09-30-2023 14:26-0500 Diastolic blood pressure 57 mm[Hg] Mary Jane Garza [facility] 09-30-2023 14:26-0500 Heart rate 60 /min Mary Jane Garza [facility] 09-30-2023 14:26-0500 Respiratory rate 16 /min Mary Jane Garza [facility] 09-30-2023 14:26-0500 Systolic blood pressure 114 mm[Hg] Mary Jane Garza [facility] 06-02-2022 14:50-0400 Body height 182.88 cm Sonja Aden Other [employer] Other 06-02-2022 14:50-0400 Body mass index (BMI) [Ratio] 29.73 kg/m2 Sonja Aden Other [employer] Other 06-02-2022 14:50-0400 Body temperature 99.6 [degF] Sonja Aden Other [employer] Other 06-02-2022 14:50-0400 Body weight 99.43 kg Sonja Aden Other [employer] Other 06-02-2022 14:50-0400 Diastolic blood pressure 54 mm[Hg] Sonja Aden Other [employer] Other 06-02-2022 14:50-0400 Respiratory rate 18 /min Sonja Aden Other [employer] Other 06-02-2022 14:50-0400 SaO2% (BldA) [Mass fraction] 95 % Sonja Aden Other [employer] Other 06-02-2022 [id number] Systolic blood pressure 118 mm[Hg] Sonja Aden Other [employer] Other Encounters Encounter Date Encounter Type Care Provider Facility Start: 03-17-2024 End: 03-17-2024 ambulatory [facility] Start: 03-13-2024 End: 03-13-2024 ambulatory [facility] Start: 02-12-2024 End: 02-12-2024 ambulatory [facility] Start: 01-22-2024 [facility]: 01-22-[facility]24 Evaluation and management of inpatient [facility] Start: 01-21-2024 ambulatory [facility] Start: 01-21-2024 End: 01-22-2024 Evaluation and management of inpatient [facility] Start: 01-14-2024 End: [facility]14[facility]: 01-03-2024 End: 01-03-2024 ambulatory [facility] Start: 12-04-2023 End: 12-04-2023 ambulatory [facility] Start: 12-03-2023 End: 12-03-2023 ambulatory Sheng L Brissa [facility] Start: 10-30-2023 End: 10-30-2023 ambulatory Sheng L Brissa Facility:[facility] Start: 10-30-2023 End: 10-30-2023 ambulatory [facility] Start: 10-24-2023 End: 10-24-2023 Admission to same day surgery center Christelle Salazar [facility] Start: 10-24-2023 End: 10-24-2023 ambulatory Christelle Sadlermis [facility] Start: 10-23-2023 End: 10-23-2023 ambulatory Christelle Sadlermis [facility] Start: 10-23-2023 End: 10-23-2023 Patient encounter procedure Christelle Salazar [facility] Start: 10-23-2023 End: 10-23-2023 ambulatory CHRISTELLE MEYERS Not Available Start: 10-02-2023 End: 10-02-2023 ambulatory Sheng L Brissa [facility] Start: 09-30-2023 End: 09-30-2023 ambulatory Mary Jane Garza Facility:[facility] Start: 09-30-2023 End: 09-30-2023 Patient encounter procedure Mary Jane Garza [facility] Start: 09-09-2023 End: 09-10-2023 ambulatory Petros Lee MD Facility: [facility] Start: 09-04-2023 ambulatory Sheng L Brissa Facility: [facility] Start: 09-03-2023 End: 09-03-2023 ambulatory Sheng L Brissa Facility:[facility] Start: 08-29-2023 End: 08-29-2023 ambulatory ADDIE A FELTER Not Available Start: 08-29-2023 Bamboo flowsheet Addie A Fel [address] [employer] Work Phone: [facility] Start: 08-29-2023 Bamboo flowsheet Addie A Fel ter [employer] Work Phone: [facility] Start: 08-29-2023 End: 08-29-2023 Office outpatient new 30 minutes Addie A Felter [employer] Work Phone: [facility] Comment on above: Other atopic dermati tis (Primary Dx); Seborrheic keratosis Start: 08-28-2023 End: 08-28-2023 ambulatory John Nieves Facility[facility] Start: 07-03-2023 End: 07-03-2023 ambulatory Sheng L Brissa Facility[facility] Start: 07-02-2023 End: 07-02-2023 ambulatory ROYAL ODELLO [facility] Start: 05-15-2023 End: 05-15-2023 ambulatory CHARISSE GAY [facility] Start: 01-22-2023 End: 01-22-2023 Lab Drop off Sheng L Brissa [facility] Start: 12-31-2022 End: 12-31-[address] [facility] Facility:[facility] Start: 12-25-2022 End: 12-26-[address] JASON SILVA . Facility: Start: 12-12-2022 End: 12-14-2022 Evaluation and management of inpatient DR JASON SILVA . Facility:[facility] Start: 12-11-2022 End: 12-11-2022 Lab Drop off Sheng L Brissa [facility] Start: 12-10-2022 End: 12-10-[address] [facility] Facility:[facility] Start: 11-26-2022 End: 12-26-2022 ambulatory [...] 06-02-2022 End: 06-02-2022 ambulatory Sonja Aden Other [facility] [employer] Other Start: 06-02-2022 Office outpatient ne w [...] Emergency department patient visit PHYSICIAN UNKNOWN Facility:[facility] Procedures Date Procedure Procedure Detail Performing [...] above: Performed By: #### B MP #### [facility] [address] [place] [address] [address] Rashmi Nolan Start: 10-13-2021 Antibody screen PHYSICI AN UNKNOWN Comment on above: Performed By: #### 5 0103 #### [facility] [address] [facility]. [address] Start: 09-26-2021 Cardiac pacemaker, d evice [...] DERM [address] [place] [address] Addie Huston, PROPERTY MASTER[employer]PER[employer] [address] [place] [address] Arrived [facility] Comment on above: Arrived Immunizations Immunization Date Immunization Notes Care Provider Fa cility 08-02-2023 zoster vaccine recombinant Mary Jane Garza [facility] 07-03-2023 influenza virus vaccine, unspecified formulation Jimmied Mouchli [facility] 07-03-2023 pneumococcal 20-aurelio nt conjugate vaccine Mohamad Mouchli [facility] 05-02-2022 influenza virus vaccine, unspecified formulation Sheng Brissa [facility] 05-02-2022 Seasonal trivalent influenza vaccine, adjuvanted, preservative free [facility] Work Phone: [facility] 04-28-2021 SARS-CoV-2 (COVID-19 ) mRNA-1273 vaccine [facility] 09-17-2020 SARS-CoV-2 (COVID-19 ) mRNA BNT-162b2 vax Sheng Brissa [facility] Comment on above: Result Comment: 2022: [id number] 08-27-2020 SARS-CoV-2 (COVID-19 ) mRNA BNT-162b2 vax Sheng Brissa [facility] Comment on above: Result Comment: 2022: [id number] 06-13-2020 influenza virus vaccine, unspecified formulation Sheng Brissa [facility] 06-01-2019 influenza virus vaccine, unspecified formulation Sheng Brissa [facility] 04-14-2018 influenza virus vaccine, unspecified formulation Sheng Brissa [facility] 04-22-2017 influenza virus vaccine, unspecified formulation Sheng Brissa [facility] 05-01-2016 influenza virus vaccine, unspecified formulation Sheng Brissa [facility] 06-02-2015 influenza virus vaccine, unspecified formulation Sheng Brissa [facility] 05-31-2014 influenza virus vaccine, unspecified formulation Sheng Brissa [facility] 06-02-2013 influenza virus vaccine, unspecified formulation Sheng Brissa [facility] 05-29-2005 influenza, whole Sheng Brissa [facility] Payers Date Payer Category Payer Unknown [facility] 1999 Medicare [id number] 1959 Medicare [id number] 1935 Unknown [id number] 2.16.8 40.1.043189.3.579.2.647 1934 Unknown [id number] 2.16. 840.1.560986.3.579.2.732 1934 Unknown [id number] 2.16. 840.1.939372.3.579.2.732 1934 Unknown [id number] 2.16.8 40.1.135908.3.579.2.718 1934 Unknown [id number] 2.16.8 40.1.482557.3.579.2.718 1934 Unknown [id number] 2.16.84 0.1.396760.3.579.2.593 1934 Unknown [id number] 2.16.84 0.1.525665.3.579.2.593 1934 Unknown [id number] 2.16.84 0.1.412361.3.579.2.593 1934 Unknown [id number] 2.16.84 0.1.106015.3.579.2.593 -193 Unknown [id number] 2.16.84 0.1.975291.3.579.2.593 1934 Unknown [id number] 2.16.84 0.1.680785.3.579.2.593 1934 Unknown [id number] 2.16.84 0.1.820887.3.579.2.593 1934 Unknown [id number] 2.16.84 0.1.590060.3.579.2.593 1934 Unknown [id number] 2.16.84 0.1.271432.3.579.2.593 1934 Unknown [id number] 2.16.84 0.1.137527.3.579.2.593 1934 Unknown [id number] 2.16.84 0.1.134874.3.579.2.593 1934 Unknown [id number] 2.16.84 0.1.898819.3.579.2.593 1934 Unknown [id number] 2.16.84 0.1.679323.3.579.2.593 1934 Unknown [id number] 2.16.84 0.1.592277.3.579.2.593 1934 Unknown [id number] 2.16.84 0.1.037650.3.579.2.593 1934 Unknown [id number] 2.16.84 0.1.443662.3.579.2.593 1934 Unknown [id number] 2.16.84 0.1.610217.3.579.2.593 1934 Unknown [id number] 2.16.84 0.1.904152.3.579.2.593 1934 Unknown [id number] 2.16. 840.1.935092.3.579.2.196 1934 Unknown [id number] 2.16.84 0.1.585400.3.579.2.1259 1934 Unknown [id number] 2.16.84 0.1.646359.3.579.2.1259 1934 Unknown [id number] 2.16.8 40.1.499314.3.579.2.727 1934 Unknown [id number] 2.16.8 40.1.361096.3.579.2.727 1934 Unknown [id number] 2.16.8 40.1.137932.3.579.2.727 1934 Unknown [id number] 2.16.8 40.1.364571.3.579.2.727 1934 Unknown [id number] 2.16.8 40.1.092807.3.579.2.727 1934 Unknown [id number] 2.16.8 40.1.939690.3.579.2.727 1934 Unknown [id number] 2.16.8 40.1.664867.3.579.2.727 1934 Unknown [id number] 2.16.8 40.1.138303.3.579.2.727 1934 Unknown [id number] 2.16.8 40.1.458396.3.579.2.727 1934 Unknown [id number] 2.16.8 40.1.662972.3.579.2.727 Social History Date Type Detail Facility Unknown if ever smoked [employer] Other Start: 02-05-2023 End: 08-29-2023 Sex Assigned At [facility] Start: 12-11-2022 End: 12-13-2022 Tobacco smoking status Never smoked tobacco (finding) [facility] Tobacco smoking status Never [facility] Comment on above: Quit in 2002 Start: 01-22-2023 End: 10-02-2023 Tobacco smoking status Ex-smoker (finding) [facility] Comment on above: Quit in 2002 Start: 12-13-2022 Tobacco use and exposure Smokeless tobacco non-user [facility] Start: 02-05-2023 End: 08-29-2023 Alcohol intake Current drinker of alcohol (finding) [facility] Start: 02-05-2023 End: 08-29-2023 History of Social function [facility] Start: 1935 Sex Assigned At Not on file N [facility] Functional Status Date Assessment Result Facility 10-23-2023 Functional Status No [facility] 09-30-2023 Functional Status N/A [facility] Clinical Notes 10-13-2021 to 03-17-2024 LaboratoryNatgilda Huston, PROPERTY MASTER[employer]SUPER[employer]OR [employer] - 08/29/2023 1:00 PM EST Note Date & Type Note Facility 03-17-[address] Cardiology - [facility] Reason for visit: Afib. 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 Device check performed on 06/12/2022 shows thresholds to be good. he is in persistent A. Fib and underwent a single-chamber pacemaker. with [employer] on 10/13/2021 and paced 65% Echocardiogram performed on 10/24/2021 showed EF of 55% with a dilated RV and mild biatrial dilatation with mild TR and mildly elevated RVSP of 39 mmHg HPI: 85 yo male presents to clinic as new pt from Dr iSlva for concerns of newly noted bradycardia. He [...] stress test about 12 years ago in [place], and was in hospital with noted a fib currently on coumadin anticoagulation. Echocardiogram performed on 11/30/2020 at [facility] shows an ejection fraction of 55% [...] Medical History: Diagno (more content not included)... [facility] 03-17-2024 Note Pt is here for [age] [...] All other systems reviewed and are negative. [facility] 03-13-2024 Note Patient: Ry soria Procedure Information Date/Time: 03/13/24 0900 Procedure: TRANSESOPHAGEAL ECHO (HELDER) Location: [facility] Vascular Lab Clinical [...] Plan discussed with attending. Additional Equipment Requests [facility] 02-12-[address] Cardiology - [facility] Reason for visit: Afib. 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 Device check performed on 06/12/2022 shows thresholds to be good. he is in persistent A. Fib and underwent a single-chamber pacemaker. with [employer] on 10/13/2021 and paced 65% [...] stress test about 12 years ago in [place], and was inpt hospital with noted a fib currently on coumadin anticoagulation. Echocardiogram performed on 11/30/2020 at [facility] shows an ejection fraction of 55% [...] on file [employer] (more content not included)... [facility] 01-22-2024 Note 01/22/24 0975 Admission Assessment Questions Verify insurance with patient [...] Status Interested Does the patient have a nurse case manager assigned to them through their [...] to send link and activate MyChart? No [facility] 01-21-2024 Note Patient: Ry soria Procedure Information Date/Time: 01/21/24 1100 Procedure: Left atrial appendage closure (transvenous) Location: [facility] / [facility] (Cath) Providers: Kelly Morales MD Clinical information reviewed: Allergies Meds Physical Exam Airway Mallampati: III TM distance: >3 FB Neck ROM: full Cardiovascular Rhythm: regular Rate: normal Dental Pulmonary Abdominal Anesthesia Plan ASA 3 other (Conscious sedation.) Anesthetic plan and risks discussed with patient. Use of blood products discussed with patient who consented to blood products. Additional Equipment Requests [facility] 12-04-[address] Cardiology - [facility] Subjective Ry Lerner is a 88 [...] 75 QRS DURATIO (more content not included)... [facility] 10-30-[address] Cardiology - [facility] Reason for visit: Afib. 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 Device check performed on 06/12/2022 shows thresholds to be good. he is in persistent A. Fib and underwent a single-chamber pacemaker. with [employer] on 10/13/2021 and paced 65% [...] stress test about 12 years ago in [place], and was in hospital with noted a fib currently on coumadin anticoagulation. Echocardiogram performed on 11/30/2020 at [facility] shows an ejection fraction of 55% [...] on file Physical (more content not included)... [facility] 10-24-2023 Hospital Discharge instructions Patient Education 10/24/2023 14:41:31 [facility](CUSTOM) [place], [place] DISCHARGE INSTRUCTIONS: NASAL SURGERY DO NOT [...] the office with any questions or problems: [phone] ([place] office) The above information has been explained, I have had the opportunity to have my questions answered, and I have received a copy. Responsible [employer] SignatureSurgeon s Signature Nurse s Signature Reviewed: 09/0510/24/2023 14:37:39 Post Op Patient Instructions - FT (CUSTOM) Follow Up Care 10/23/2023 10:02:33 With:Christelle Meyeraixa Address:Unknown When: Unknown Comments:As needed [facility] 10-23-2023 Note [id number] [facility] 09-30-2023 Evaluation + Plan note Future Scheduled TestsAlkaline Phosphatase Isoenzymes 09/30/23. 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 Device check performed on 06/12/2022 shows thresholds to be good. he is in persistent A. Fib and underwent a single-chamber pacemaker. with [employer] on 10/13/2021 and paced 65% [...] stress test about 12 years ago in [place], and was in hospital with noted a fib currently on coumadin anticoagulation. Echocardiogram performed on 11/30/2020 at [facility] shows an ejection fraction of 55% [...] mg DR lindsay (more content not included)... [facility] 05-15-2023 Note Patient here for 3 [...] All other systems reviewed and are negative. [facility] 01-01-2023 Note [id number]1.00[facility]-01-2023 Note [id number]#1.00[facility] 12-31-2022 Note [facility] Clinical Discharge Summary PERSON INFORMATION Name RY LERNER Age 87 Years 1935 Sex MALE Language Equatorial Guinean PCP Ezequiel CHAMBERS, John Rodríguez Marital Status Med Service Ambulatory Surgery Acct# Arrival 12/31/2022 08:09:06 Visit Reason SURGERY - RIGHT CARPAL TUNNEL RELEASE Acuity LOS 039 21:33 Address: [address] [place] [id number] Comment: PROVIDER INFORMATION VITALS INFORMATION Vital Sign [...] release capsule) 1 cap(s) Oral every day. Gold[place]'s wort (Lindsey's wort oral tablet) 1 tab(s) [...] 1 cap(s) Oral every day. Lindsey's wort ([place]'s wort oral tablet) 1 tab(s) Oral 2 [...] release capsule) 1 cap(s) Oral every day. [place]'s wort (Lindsey's wort oral tablet) 1 tab(s) [...] release capsule) 1 cap(s) Oral every day. Gold[place]'s wort (Goldville's wort oral tablet) 1 tab(s) Oral 2 [...] REASON INCOMPLETE INFORMATION PATIENT EDUCATION INFORMATION Instructions: [place]- Post Op Carpal Tunnel (CUSTOM) Follow up: With: Address: When: MARJ PEREZ [address] [place] [address], [address] [place], [place] [id number] Business (1) 01/09/2023 11:00 AM DIAGNOSIS Carpal tunnel syndrome, right Comment: PHYS DOC NOTES [facility] 12-31-2022 Note Procedure: Decompres mary [...] on: 12/31/2022 09:43 EDT] Ward Martinez DO [facility] 12-12-2022 Note [id number]#[id number] [facility] 12-10-2022 Note procedure: Decompres mary [...] on: 12/10/2022 15:46 EDT] Ward Martinez DO [facility] 12-10-2022 Note [facility] Clinical Discharge Summary PERSON INFORMATION Name RY LERNER Age 87 Years 1935 Sex MALE Language [place]ine[place] PCP Ezequiel CHAMBERS, John Rodríguez Marital Status [facility] Service Ambulatory Surgery Acct# Arrival 12/10/2022 13:13:28 Visit Reason SURGERY - LEFT CARPAL TUNNEL RELEASE Acuity LOS 019 02:57 Address: [address] [place] [address] Comment: PROVIDER INFORMATION VITALS INFORMATION Vital Sign [...] Follow up: With: Address: When: Ward Martinez [address] [place] [address], [address] [place] [phone] Business (1) 12/18/2022 1:30 PM Type Location Start [facility] [place] 12/31/2022 7:30 AM 12/31/2022 8:00 AM Confirmed DIAGNOSIS Carpal tunnel syndrome of left wrist Comment: PHYS DOC NOTES [facility] 06-02-2022 Evaluation note Encounter Date [...] treatment plan. Patient left in stable condition Powered [facility] irisnote Other [id number] History general Narrative - Reported* Type Description Date Medical History HYPERTENSION Medical History STROKE Medical History HEAD INJURY Surgical History PACEMAKER 10/13/2021 Surgical History HERNIA X 2 Surgical History TONSILECTOMY Hospitalization History SEE ABOVE [employer] Other Evaluation + Plan note No data available for this section [facility] Future Appointments Appointment Date:08/27/2023 09:30:00 AM Scheduled Provider: Location:[facility] Appointment Type: Medicare Wellness Subsequent [facility] Future Appointments Appointment Date:10/02/2023 10:00:00 AM Scheduled Provider:Sheng Simms Location:[facility] Appointment Type: Open Future Scheduled Tests Laboratory* Alkaline Phosphatase Isoenzymes 3/4/24 * H. pylori Stool Ag 3/4/24 * Ferritin 3/4/24 * Iron Level 3/4/24 [facility] Evaluation + Plan note Future Appointments Appointment Date:10/24/2023 02:30:00 PM Scheduled Provider: Location:[facility] Appointment Type:Surgery FT Future Scheduled Tests Laboratory* Alkaline Phosphatase Isoenzymes 3/4/24 * H. pylori Stool Ag 3/4/24 * Ferritin 3/4/24 * Iron Level 3/4/24 [facility] Diagnosis Other atopic dermatitis- Primary Seborrheic keratosis [facility] No data available for this section [facility] No data available for this section [facility] Summary Purpose Family History No [...] and content) DATE CREATED AUTHOR 01/26/2022 [facility] DATE CREATED AUTHOR AUTHOR'S ORGANIZ ATION 04/25/2022 [facility] DATE CREATED AUTHOR AUTHOR'S ORGANIZ ATION 01/06/2023 [facility] DATE CREATED AUTHOR AUTHOR'S ORGANIZ ATION 01/06/2023 [facility] DATE CREATED AUTHOR AUTHOR'S ORGANIZ ATION 09/15/2023 [facility] DATE CREATED AUTHOR AUTHOR'S ORGANIZ ATION 10/24/2023 [facility] EPIC DATE CREATED AUTHOR AUTHOR'S ORGANIZ ATION 01/24/2024 [facility] DATE CREATED AUTHOR AUTHOR'S ORGANIZ ATION 03/22/2024 [facility] REASON FOR VISIT (unrecogniz ed section and content) Reason Comments Rash Specialty Diagnoses / Procedures Referred By Daniel ivy Referred To Contact Dermatology Diagnoses eczema / skin changes texture changes Sheng Lagos MD [address] [place] [id number] Rebecca Conley MD [address] [address] Referral ID Status Reason Start Date Expiration Date Visits Re quested Visits Authorized [id number] Closed 07/05/2023 01/01/2024 1 1 Patient Care team informatio n (unrecognized section and content) Devops Consultant Relationship Specialty Start Date End Date Jason Silva MD [address] [place] [address] PCP - General Family Medicine 12/10/22 [employer] Consultant Relationship Specialty Start Date End Date Jason Silva MD [address] [facility] [place] [facility] [place] [address] PCP - General Family Medicine 12/10/22 FOR [...] BE BASED ON THE PRIMARY CLINICAL RECORDS. [employer] [facility]. provides no warranty or guarantee of the accuracy or completeness of information in this document.
== END 2024-06-18 09:01 | disposition home or self-care (01) ==
LOC: HEMC 07:32
PROVIDERS: PCP Nurse Practitioner; Visit Provider Internal Medicine Hematology & Oncology
DX: D64.9 Anemia, unspecified (principal); R91.1 Solitary pulmonary nodule; Q61.00 Congenital renal cyst, unspecified; D50.9 Iron deficiency anemia, unspecified; K90.9 Intestinal malabsorption, unspecified; D47.2 Monoclonal gammopathy; C90.00 Multiple myeloma not having achieved remission; R77.9 Abnormality of plasma protein, unspecified; D69.6 Thrombocytopenia, unspecified; N18.30 Chronic kidney disease, stage 3 unspecified; D63.1 Anemia in chronic kidney disease
CPT/HCPCS: G0463

== ENCOUNTER 2024-06-17 07:07 | Outpatient (OUT) | payer MEDICARE, SELFPAY ==
--- NOTE | 2024-06-17 07:00 | NM_ITS ---
The [address] [address] Patient Name: THIERRY LERNER MRN: [id number] date: 1935 Sex: M Assigned Patient Location: [place] Current Patient Location: [place] Accession/Order Number: [id number] Exam Date: 06/17/2024 07:00 Report Date: 06/17/2024 15:04 At the request of: ADRIANA MC Procedure: NH bone scan whole body EXAMINATION: NH bone scan whole body HISTORY: HISTORY OF MGUS, ABNORMAL PET SCAN, EVALUATE FOR BONE METS COMPARISON: 05/04/2024 PET/CT TECHNIQUE: After obtaining the patient's consent, 25.0 mCi Technetium 99m MDP was injected intravenously. Images were obtained approximately two hours later. FINDINGS: Region: Whole-body ABNORMALITIES: Asymmetric increased activity identified within the left shoulder left pelvis, proximal left tibia and distal right tibia. Linear increased uptake identified in the mid body of the sternum. Increased activity identified in the right anterior fifth rib OTHER: Negative. NH/NH bone scan whole body IMPRESSION: Increased activity in multiple areas detailed above. Findings are indeterminate and are most consistent with Paget's disease than bony metastases Electronically authenticated by: STEPHANIE GTZ Date: 06/17/2024 15:04
--- OUTSIDE RECORDS SUMMARY | 2024-06-17 07:10 | XMS_ITS | CCD ---
Author Organization [facility] Care Team Providers Care Cover Maker Name Role Phone UNKNOWN, PHYSICIAN Referring [...] DR JASON Devlin Primary Care Unavailable SHAIKH Jeo JUNIOR Attending Unavailable SILVA ., DR JASON [...] Devlin Consulting Unavailable SILVA ., DR JASON Devlni Attending Unavailable SILVA ., DR JASON Devlin [...] Propensity to adverse reactions to drug (disorder) [facility] Repository Medications Current Medications Medication [...] Daily, # 90 tab(s), Refills(s) 1, Pharmacy: [facility]5, 179, cm, 09/03/23 10:34:00 EST, Height/Length [...] Daily, # 90 tab(s), Refills(s) 1, Pharmacy: [facility], 178, cm, 07/03/23 9:26:00 EST, Height/Length [...] Daily, # 180 cap(s), Refills(s) 3, Pharmacy: [facility], 178, cm, 01/22/23 14:05:00 EDT, Height/Length [...] 3 Chronic Other aftercare (1 source) Other custodial (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 therapy; Translations: [OTH SOUND TESTER CURRENT DRUG THERAPY] Onset: 3 Episodic Other aftercare (5 sources) Encounter for therapeutic drug level monitoring; Translations: [ENC THERAPEUTC DRUG LEVL MONITORING] Onset: 3 Episodic Other aftercare (1 source) long term care pharmacist (current) use of anticoagulants; Translations: [SOUND TESTER CURRNT USE ANTICOAGULANTS] Onset: 3 Episodic Other [...] Range Facility Office Visiton 03-17-2024 Follow-up visit [id number] Ry Lerner 1935 M Date Provider Department Center 03/17/2024 KORINA GODOY Family History Family history unknown: Yes Level of Service:13234 RI OFFICE/OUTPATIENT ESTABLISHED LOW MDM 20 MIN Normal [facility] HPon 03-13-2024 H&P reviewed. The patient was examined and there are no changes to the H&P. Ry Lerner is a 88 y.o. 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 Normal [facility] NURSNOTEon 03-13-2024 NURSNOTE Swallow test passed. No issues Normal [facility] NURSNOTE RN educated pt on d/ c instructions. RN encouraged pt to voice any questions or concerns. Pt verbalizes no questions or concerns at this time. Normal [facility] Telephoneon 03-06-2024 Telephone [id number] Ry Lerner 1935 M Date Provider Department Center 03/06/2024 OTONIEL ALMEIDA [facility] V[facility] LAB AR HeartVAS Family History Family history unknown: Yes Normal [facility] 37on 02-12-2024 37 *Will cut amlodipine in half back to 5mg daily to see if this will help your dizziness. *Have lab work done in 2 weeks. *You are scheduled for your follow-up HELDER on 03/13/24 to check the WATCHMAN device. Normal [facility] HPon 02-12-2024 [facility] Cardiology - [facility] Reason for visit: Afib. 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 Device check performed on 06/12/2022 shows thresholds to be good. he is in persistent A. Fib and underwent a single-chamber pacemaker. with [employer] on 10/13/2021 and paced 65% Echocardiogram [...] stress test about 12 years ago in [place], and was in hospital with noted a fib currently on coumadin anticoagulation. Echocardiogram performed on 11/30/2020 at [facility] shows an ejection fraction of 55% [...] file Financia (more content not included)... Normal [facility] Office Visiton 02-12-2024 Follow-up visit [id number] Ry Lerner 1935 M Date Provider Department Center 02/12/2024 KORINA GODOY [facility] Family History Family history unknown: Yes Level of Service:41192 RI OFFICE/OUTPATIENT ESTABLISHED MOD MDM 30 MIN Reason for Visit and Comments: Follow-up [061424] - Follow up -indigo Medrano [facility] 30on 01-22-2024 30 Problem: Pain - Adul [...] and maintained or improved Outcome: Progressing Normal [facility] BASIC METABOLIC PANELon 12-28 Anion gap [Moles/Vol] 13 mmol/L Normal 7-20 [facility] Comment on above: Performed By: #### L [id number] #### [facility] (AKER) [address] [place] [address] Calcium [Mass/Vol] 9.4 mg/dL Normal 8.6-10.3 [facility] Comment on above: Performed By: #### L [id number] #### [facility] (AKER) [address] [place] [address] Chloride [Moles/Vol] 111 mmol/L High 98-107 [facility] Comment on above: Performed By: #### L [id number] #### [facility] (BEAKER) [address] [place] [address] CO2 [Moles/Vol] 19 mmol/L Low 21-[address] [facility] Comment on above: Performed By: #### L [id number] #### [facility] (BEAKER) [address] [place] [address] Creatinine [Mass/Vol] 1.83 mg/dL High 0.70-1.30 [facility] Comment on above: Performed By: #### L [id number] #### [facility] ([facility]) [address] [place] [address] GLOMERULAR FILTRATION RATE ML/MIN/1.73 SQ M.PREDICTED 34.8 mL/min/1.73m*2 Low >60.0 [facility] Comment on above: Result Comment: The [facility]???s estimated glomerular filtration rate (eGFR) will no [...] individuals. Performed By: #### L [id number] #### [facility] ([facility]) [address] [place] [address] Glucose [Mass/Vol] 103 mg/dL High 70-100 [facility] Comment on above: Performed By: #### L [id number] #### [facility] ([facility]) [address] [place] [address] Potassium [Moles/Vol] 5.2 mmol/L High 3.5-5.1 [facility] Comment on above: Performed By: #### L [id number] #### [facility] ([facility]) [address] [place] [address] Sodium [Moles/Vol] 138 mmol/L Normal 136-145 [facility] Comment on above: Performed By: #### L [id number] #### [facility] ([facility]) [address] [place] [address] Urea nitrogen [Mass/Vol] 50 mg/dL High 7-25 [facility] Comment on above: Performed By: #### L [id number] #### [facility] ([facility]) [address] [place] [address] UREA NITROGEN/CREATININE (MASS RATIO) IN SER/PLAS 27.3 Normal [facility] Comment on above: Performed By: #### L [id number] #### [facility] ([facility]) [address] [place] [address] CBCon 01-22-2024 Erythrocyte distribution width (RBC) [Ratio] 15.0 % Normal 11.5-15.0 [facility] Comment on above: Performed By: #### L [id number] ####[facility] ([facility])[address] [place] [address] ERYTHROCYTE MEAN CORPUSCULAR HEMOGLOBIN CONCENTRATION (G/DL) BY AUTOMATED 31.9 g/dL Low 32.0-35.0 [facility] Comment on above: Performed By: #### L [id number] ####[facility] ([facility])[address] [place] [address] Hematocrit (Bld) [Volume fraction] 26.0 % Low 39.0-55.0 [facility] Comment on above: Performed By: #### L [id number] ####[facility] ([facility])[address] [place] [address] Hemoglobin (Bld) [Mass/Vol] 8.3 g/dL Low 13.0-17.0 [facility] Comment on above: Performed By: #### L [id number] ####[facility] ([facility])[address] [place] [address] MCH (RBC) [Entitic mass] 30.5 pg Normal 27.0-33.0 [facility] Comment on above: Performed By: #### L [id number] ####[facility] ([facility])[address] [place] [address] MCV (RBC) [Entitic vol] 95.6 fL Normal 82.0-98.0 [facility] Comment on above: Performed By: #### L [id number] ####[facility] ([facility] [place] [address] PLATELETS (10*3/UL) IN BLOOD AUTOMATED COUNT 120 10*3/uL Low 150-400 [facility] Comment on above: Performed By: #### L [id number] ####[facility] ([facility])[address] [place] [address] RBC (Bld) [#/Vol] 2.72 10*6/uL Low 4.20-5.70 [facility] Comment on above: Performed By: #### L [id number] ####[facility] ([facility])[address] [place] [address] WBC (Bld) [#/Vol] 3.09 10*3/uL Low 4.00-10.60 [facility] Comment on above: Performed By: #### L [id number] ####[facility] (BEAKER)[address] [place] [address] DSon 01-22-2024 DS - Attestation signed by Kelly Morales MD at 01/22/2024 3:03 PM I discussed the patient on the same date of service as the Non-Physician Provider Gail Watkins NP. Teaching Physician's Revisions: none Admission Admitted 01/21/2024 for Permanent atrial fibrillation ([facility]* Discharge Diagnosis Permanent atrial fibrillation (CMS/HCC) S/p [...] [facility] 40-10-5-3.3 mg tablet Generic drug: izwcukicq-kjshugyb-ik r-hyalur omeprazole [address] capsule Commonly known as: PriLOSEC STOP taking these medications warfarin 5 mg tablet Commonly known as: Coumadin Where to Get Your Medications These [facility] [address] [facility] [address] amLODIPine 10 mg tablet aspirin 81 mg [...] epistaxis, history of GI bleeding, presented to [facility] for planned left atrial appendage closure by slate trimmer, Dr. Morales on 01/21/24. Patient underwent successful [...] asymptomatic, no rhythm changes per review of quality assurance monitor body. Discussed with Dr. Morales who recommends to [...] guidance. 5 (more content not included)... Normal [facility] Outside [facility] Correspo ndence01-22-2024 Outside [facility] Correspondence [id number] .00TIFF Normal [facility] 30on 01-21-2024 30 The patient is Moderately [...] injury: Assess patient frequently for physical needs [place] fall precautions as indicated by assessment Identify [...] and prevent overall improvement and discharge Normal [facility] 30 Problem: Pain - Adul t Goal: [...] did make progress toward the following goals. [facility] HPon 01-21-2024 History Of Present Illness [...] a past medical history of Atrial fibrillation ([facility]), Hypertension, and Tachycardia-bradycard ia ([facility]). Surgical History [...] medical histo (more content not included)... Normal [facility] MRSA/MSSA DNA NASALon 2023 MRSA DNA Positive Abnormal Negative [facility] Comment on above: Order Comment: Testi ng [...] preclude nasal colonization. Performed By: #### L [id number] ####[facility] (BEAKER)[address] [place] [address] MSSA DNA Negative Normal Negative [facility] Comment on above: Order Comment: Testi ng [...] preclude nasal colonization. Performed By: #### L [id number] ####[facility] (BEAKER)[address] [place] [address] NURSNOTEon 01-21-2024 NURSNOTE Report given to CORI Linton from RICKY Doyle Any medications or safety alerts were reviewed. Any pending diagnostics and notifications were also reviewed, as well as any safety concerns or issues, abnormal labs, abnormal imagining, and abnormal assessment findings. Questions were answered. Normal [facility] NURSNOTE Bedside swallow stud y completed and passed. Normal [facility] NURSNOTE CHG wipes completed. Normal [facility] TYPE AND SCREENon 01-21-2024 AB SCREEN Negative Normal [facility] Comment on above: Performed By: #### L [id number] ####[facility]OD [facility], ABO group Nom (Bld) O Normal [facility] Comment on above: Performed By: #### L [id number] ####[facility], RH TYPE IN BLOOD Positive Normal [facility] Comment on above: Performed By: #### L [id number] ####[facility], Prep for Procedureon 024 Prep for Procedure [id number] Ry Lerner 1935 M Date Provider Department [place] [facility] Family History Family history unknown: Yes Normal [facility] Echocardiographyon Echocardiography [id number]#1 .00TIFF Normal [facility] [...] 01/03/24 1230 Procedure: TRANSESOPHAGEAL ECHO (HELDER) Location: [facility] Vascular Lab Clinical information reviewed: [facility] Meds Physical Exam Airway Mallampati: III Neck ROM: full Cardiovascular Rhythm: regular Rate: normal Dental Pulmonary Breath sounds clear to auscultation Abdominal Abdomen: soft Anesthesia Plan ASA 3 other (Moderate anesthesia ) Anesthetic plan and risks discussed with patient. Use of blood products discussed with patient who consented to blood products. Additional Equipment Requests Normal [facility] HPon 01-03-2024 - Attestation signed by Xochitl [...] longstanding persistent atrial fibrillation with an elevated HBX3GJ1-NNZe score of 6 due to age, hypertension, [...] a past medical history of Atrial fibrillation ([facility]), Hypertension, and Tachycardia-bradycard ia ([facility]). Surgical History [...] Cardiac device check - In Clinic 08/02/2023 [id number] Final ROS: 10 organ systems have been [...] addressed. Trenton William MD Cardiovascular disease fellow [facility] NURSNOTEon 01-03-2024 NURSNOTE Bedside swallow stud y completed and passed. [facility] NURSNOTE RN educated pt on d/ c instructions. RN encouraged pt to voice any questions or concerns. Pt verbalizes no questions or concerns at this time. Pt was wheeled off of unit with all of belongings. [facility] Telephoneon 12-25-2023 Telephone [id number] Toi Lerneryin Frausto 1935 M Date Provider Department Center 12/25/2023 OTONIEL ALMEIDA [facility] V[facility] UT HeartVAS Family History Family history unknown: Yes [facility] Family Medicine Office/Clini c Noteon 12-10-2023 [...] Daily, # 90 tab(s), Refills(s) 1, Pharmacy: [facility], 179, cm, 09/03/23 10:34:00 EST, Height/Length Dosing, 100.9, kg, 09/03/23 10:34:00 EST, Weight Dosing amlodipine, 5 mg = 1 tab(s), Oral, Daily, X 90 day(s), # 90 tab(s), Refills(s) 3, Pharmacy: [facility], 180, cm, 12/03/23 10:39:00 EDT, Height/Length [...] # 90 cap(s), Refills(s) 3, Pharmacy: [facility], 180, cm, 12/03/23 10:39:00 EDT, Height/Length [...] (more content not included)... Normal [facility] Comment on above: Result Comment: Elec tronically Signed By: Ezequiel CHAMBERS, John Guan.br\Date and Time Signed: 12/10/23 12:54 EDT Office Visiton 12-04-2023 Follow-up visit [id number] Ry Lerner 1935 M Date Provider Department Center 12/04/2023 KELLY MARTIN Family History Family history unknown: Yes Level of Service:76322 RI OFFICE/OUTPATIENT ESTABLISHED HIGH MDM 40 MIN Normal [facility] Patient Educationon 12-03-19 24 Patient Education Orthopedics [...] these instructions at home: Medicines ? Take iorn-txg-ogwlrlh and prescription medicines only as told by [...] (more content not included)... Normal [facility] RAD - CT Reporton 11-26-2023 RAD - CT Report [id number]#1 .00TIFF Normal [facility] RAD - CT Reporton 11-15-2023 RAD - CT Report [id number] .00TIFF Normal [facility] Physician Orderon 10-31-2023 Physician Order [id number] .00TIFF Normal [facility] [...] choosing us for your care. Normal Dennis [facility] Family Medicine Office/Clini c Noteon 10-30-2023 Family Medicine Office/Clinic Note HPI Staff Ry is a 88 year old male presenting for follow up Called 10/29/23 for records he was there for medication management, no record of CT scan . pt states [facility] had no order for CT of abdomen and pelvis. daughter would like to discuss watchman . 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 Hemorid burst on Saturday. Daughter from [...] pelvis was ordered by September 29 but [facility] never received the order. new order sent to [facility] 4. BMI 30.0-30.9,adult (Z68.30: Body mass [...] (more content not included)... Normal [facility] Comment on above: Result Comment: Elec tronically Signed By: Sheng Simms\.br\Date and Time Signed: 10/30/23 16:04 EDT Office Visiton 10-30-2023 Follow-up visit [id number] Ry Lerner 1935 M Date Provider Department Center 10/30/2023 KORINA GODOY [facility] Family History Family history unknown: Yes Level of Service:10457 RI OFFICE/OUTPATIENT ESTABLISHED MOD MDM 30 MIN Reason for Visit and Comments: Follow-up [568341] - 6 month follow up Normal [facility] Orders Onlyon 10-30-2023 Orders Only [id number] Ry Lerner 1935 M Date Provider Department Center 10/30/2023 JULES NGUYEN BETH [facility] Family History Family history unknown: Yes Normal [facility] Lab Reportson 10-29-2023 Lab Reports [id number] .00TIFF Normal [facility] IntraOperative Documentson 0 10-28-2023 IntraOperative Documents [id number] .00TIFF Normal [facility] Consent for Anesthesiaon Consent for Anesthesia [id number]# 1.00TIFF Normal [facility] Discharge Instructionson Discharge Instructions [id number]# 1.00TIFF Normal [facility] IntraOperative Documentson 0 10-25-2023 IntraOperative Documents [id number]# 1.00TIFF Normal [facility] Main OR Intraoperative Recor don 10-25-2023 Main OR Intraoperative Record IntraOp Document Type FT Summary Primary Physician: Christelle Salazar MD Finalized Date/Time: 10/25/23 13:48:34 Pt. Name: RY LERNER/Sex: 1935 Male Med Rec #: [id number] Physician: Christelle Salazar MD Financial #: [id number] Pt. Type: A Room/Bed: [facility]/01 Admit/Disch: 10/24/23 12:15:19 - 10/24/23 15:50:00 [...] Calix Role Performed Anesthesiologist Surgeon - Primary Prosthetic Aides Teacher - Primary English Composition Instructor Time In 10/24/23 13:45:00 10/24/23 13:52:00 10/24/23 13:45:00 Time Out 10/24/23 14:16:00 10/24/23 14:16:00 10/24/23 14:16:00 Procedure NASAL ENDOSCOPY(Right) NASAL ENDOSCOPY(Right) NASAL ENDOSCOPY(Right) Comments , anesthesia supervisor industrial arts education Last Modified By: Aristides RN, Damion Irving [...] and tissue Entry 1 Skin Integrity Intact, [place], Warm, and Outcomes Met? Yes Dry [...] (more content not included)... Normal [facility] Operative Reporton Operative Report SURGERY DATE: 10/24/2023 PREOPERATIVE DIAGNOSIS: Right epistaxis POSTOPERATIVE DIAGNOSIS: Right epistaxis OPERATION: Right nasal endoscopy and cautery ANESTHESIA: General endotracheal COMPLICATIONS: None FINDINGS: Extensive excoriation of the right anterior middle turbinate and nasal septum INDICATIONS: This 88-year-old man presented with recurrent epistaxis of the right nose. His nose was packed last week at [facility], and then when he returned for [...] Christelle Salazar Jr., M.D. ca Dictated: 10/24/2023 [id number] Transcribed: 10/24/2023 cc:JAXON Shane [facility] Comment on above: Result Comment: Elec tronically Signed By: Marie CHAMBERS, Christelle H\.br\Date and Time Signed: 10/25/23 07:09 EDT Outside Recordson 10-25-2023 Outside Records [id number]# 1.00TIFF [facility] Preoperative Documentson Preoperative Documents [id number]# 1.00TIFF [facility] Progress Note-Physicianon Progress Note-Physician Patient: RY [...] ( To home ). 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 Abnormal liver ultrasound / SNOMED CT 9473917566 / Confirmed Abnormal ultrasound of kidney / SNOMED CT 9055180729 / Confirmed Rotator cuff tear / SNOMED CT 8084828842 / Confirmed Nodule of kidney / SNOMED CT 146477201 / Confirmed Abnormal x-ray of cervical spine / SNOMED CT 430501174 / Confirmed Liver nodule / SNOMED CT 4143228170 / Confirmed HTN (hypertension) / SNOMED CT 9779238399 / Confirmed No details in previous records Hyperlipidemia / SNOMED CT 50152714 / Confirmed no details in previous chart Bleeding ulcer / SNOMED CT 5801076123 / Confirmed Hemoperitoneum / SNOMED CT 7391263497 / Confirmed No details in previous medical record Former cigar smoker / SNOMED CT 151801131 / Confirmed Eczema / SNOMED CT 66001526 / Confirmed Cyst of pancreas / SNOMED CT 18138819 / Confirmed Abnormal chest CT / SNOMED CT 6099452493 / Confirmed Contusion of lung / SNOMED CT 924508949 / Confirmed No details in previous records Skin texture changes / SNOMED CT 959352857 / Confirmed Acute cerebrovascular accident (CVA) / SNOMED CT 143739498 / Confirmed Cardiac pacemaker / SNOMED CT 2970220012 / Confirmed Dysrhythmias / SNOMED CT 5242607370 / Confirmed Tachy, Ryan BMI 30.0-30.9,adult / SNOMED CT 899762122 / Confirmed AF (atrial fibrillation) / SNOMED CT 75745346 / Confirmed Anemia / SNOMED CT 387970132 / Confirmed FE DEF Anemia Canceled: Aspiration pneumonia / SNOMED CT 3714804594 Histories Procedure history: Colonoscopy (411321460) on 12/12/2022 at 87 Years. Carpal tunnel release (511352418) on 12/10/2022 at 87 Years. Comments: 12/11/2022 11:34 HOWIET - [facility] Left Cardiac pacemaker (91234697) in the month of 09/2021 at 86 Years. Colonoscopy (593403381) in the month of 02/2011 at 75 Years. Transurethral resection of prostate (TURP) syndrome (1701135891) in 1995 at 60 Years. Hernia (7035266976) in 1993 at 58 Years. Tonsillectomy with adenoidectomy (24883130). Social History Social & Psychosocial Habits Alcohol [...] adequate air exchange. Cardiovascular: Regular rhythm. Plan [place] [employer]hesi[employer] (ASA) physical status classification: Class III. Anesthetic Preoperative Plan: Anesthesia General. Normal [facility] Comment on above: Result Comment: Elec tronically Signed By: Ward Kraus Jr, DO\.br\Date and Time Signed: 10/25/23 09:03 EDT Consent for Treatmenton 09-27 Consent for Treatment [id number]#[address] [facility] Discharge Instructionson Discharge Instructions RY LERNER [...] cuff tear Skin texture changes Education Materials [place], [place] DISCHARGE INSTRUCTIONS: NASAL SURGERY DO NOT [...] the office with any questions or problems: [phone] ([place] office) The above information has been explained, I have had the opportunity to have my questions answered, and I have received a copy. Responsible [employer] Party Signature Surgeon?s Signature Nurse?s Signature Reviewed: [...] (more content not included)... Normal [facility] Comment on above: Result Comment: Elec tronically Signed By: Andie PERSAUD, Yann Estevez\.br\Date and Time Signed: 10/24/23 14:43 EDT H&P Updateon 10-24-2023 H&P Update [id number]# 1.00TIFF Normal [facility] Inpatient Patient Summaryon 10-24-2023 Inpatient Patient Summary [place] [id number] [facility] Clinical Discharge Instructions PERSON INFORMATION Name: [...] Tablets By Mouth every day., managed per [facility] Comment: Mitchell [facility] Main OR PACU I Recordon 09-27 Main OR PACU I Record PACU Phase I Docum ent Type FT Summary Primary Physician: Christelle Salazar MD Finalized Date/Time: 10/24/23 15:11:48 Pt. Name: RY LERNER Benji/Sex: 1935 Male Med Rec #: [id number] Physician: Christelle Salazar MD Financial #: [id number] Pt. Type: A Room/Bed: [facility]/ Admit/Disch: 10/24/23 12:15:19 - Institution: Case [...] Almazan RN 10/24/23 15:11 Normal [facility] Main OR Preoperative Recordo n 10-24-2023 Main OR Preoperative Record PreOp Document Type FT Summary Primary Physician: Christelle Salazar MD Finalized Date/Time: 10/24/23 13:53:33 Pt. Name: RY LERNER/Sex: 1935 Male Med Rec #: [id number] Physician: Christelle Salazar MD Financial #: [id number] Pt. Type: A Room/Bed: [facility]08/29 Admit/Disch: 10/24/23 12:15:19 - Institution: [...] Irving RN 10/24/23 13:53 Normal [facility] Monitor Recordon 10-24-2023 Monitor Record [id number]# 1.00TIFF Normal [facility] Monitor Record [id number]# 1.00TIFF Normal [facility] Outpatient Surgery Discharge Instructionon 10-24-2023 Outpatient Surgery Discharge Instruction [place] [id number] Patient Discharge Instructions PERSON INFORMATION Name: RY [...] Information: You may receive a survey from [employer] asking you to rate your care experience. Your feedback is important and will help us understand what we do well and how we can improve the quality of care we provide to you, your loved ones and our community. It?s an honor to serve you. Thank you for choosing [facility] HERE ARE THE MEDICATION CHANGES THAT [...] Tablets By Mouth every day., managed per [facility] PATIENT EDUCATION INFORMATION Instructions: Medication Leaflets: Normal [facility] Patient Education - Texton 0 10-24-2023 Patient Education - Text [place], [place] Royal Granger, DO DISCHARGE INSTRUCTIONS: NASAL [...] medications as prescribed. Use the Nasal Relief Chandler (decongestant) 2 sprays each nostril every hours. Use the Nasal Saline Chandler 2 sprays each nostril every 2 hours. [...] the office with any questions or problems: [phone] ([place] office) The above information has been explained, I have had the opportunity to have my questions answered, and I have received a copy. Responsible [employer] Party Signature Surgeon?s Signature Nurse?s Signature Reviewed: 09/05 Normal [facility] BMPon 10-23-2023 Anion gap [Moles/Vol] 11 mmol/L Normal 6-16 [facility] Comment on above: Performed By: #### 1 [id number], [id number] ####[facility] [address] [place] [address] Calcium [Mass/Vol] 10.5 mg/dL Normal 8.9-11.1 [facility] Comment on above: Performed By: #### 1 [id number], [id number] ####[facility] [address] [place] [address] Chloride [Moles/Vol] 110 mmol/L Normal 101-111 [facility] Comment on above: Performed By: #### 1 [id number], [id number] ####[facility] [address] [place] [address] CO2 [Moles/Vol] 25 mmol/L Normal 21-31 [facility] Comment on above: Performed By: #### 1 [id number], [id number] ####[facility] [address] [place] [address] Creatinine [Mass/Vol] 2.2 mg/dL High 0.5-1.3 [facility] Comment on above: Performed By: #### 1 [id number], [id number] ####[facility] [address] [place] [address] Glucose [Mass/Vol] 111 mg/dL Normal 55-199 [facility] Comment on above: Performed By: #### 1 [id number], [id number] ####[facility] [address] [place] [address] Potassium [Moles/Vol] 5.3 mmol/L Normal 3.5-5.3 [facility] Comment on above: Performed By: #### 1 [id number], [id number] ####[facility] [address] [place] [address] Sodium [Moles/Vol] 141 mmol/L Normal 135-145 [facility] Comment on above: Performed By: #### 1 [id number], [id number] ####[facility] [address] [place] [address] Urea nitrogen [Mass/Vol] 60 mg/dL High 5-21 [facility] Comment on above: Performed By: #### 1 [id number], [id number] ####[facility] [address] [place] [address] Urea nitrogen/Creatinine [Mass ratio] 27 No Units High 10-20 [facility] Comment on above: Performed By: #### 1 [id number], [id number] ####[facility] [address] [place] [address] CBC w/ Auto Diffon 4 Basophils/100 WBC (Bld) 0.6 % Normal 0.0-2.0 [facility] Comment on above: Performed By: #### 2 [id number], [id number] #### [facility] Laboratory [address] [place] [address] Basophils/Leukocytes Auto (Bld) [Pure # fraction] 0.0 E9/L Normal 0.0-0.2 [facility] Comment on above: Performed By: #### 2 [id number], [id number] #### [facility] Laboratory [address] [place] [address] Eosinophils (Bld) [#/Vol] 0.2 E9/L Normal 0.0-0.5 [facility] Comment on above: Performed By: #### 2 351938, [id number] #### [facility] [address] [place] [address] Eosinophils/100 WBC (Bld) 3.7 % Normal 0.0-8.0 [facility] Comment on above: Performed By: #### 2 020585, [id number] #### [facility] [address] [place] [address] Erythrocyte distribution width (RBC) [Ratio] 14.4 % High 10.9-14.2 [facility] Comment on above: Performed By: #### 2 129250, [id number] #### [facility] [address] [place] [address] Hematocrit (Bld) [Volume fraction] 27.9 % Low 37.7-49.0 [facility] Comment on above: Performed By: #### 2 411525, [id number] #### [facility] [address] [place] [address] Hemoglobin (Bld) [Mass/Vol] 9.0 g/dL Low 13.5-17.5 [facility] Comment on above: Performed By: #### 2 031658, [id number] #### [facility] Laboratory [address] [place] [address] Lymphocytes (Bld) [#/Vol] 0.6 E9/L Low 1.0-4.0 [facility] Comment on above: Performed By: #### 2 760459, [id number] #### [facility] Laboratory [address] [place] [address] Lymphocytes/100 WBC (Bld) 14.4 % Normal 14.0-50.0 [facility] Comment on above: Performed By: #### 2 915473, [id number] #### [facility] [address] [place] [address] MCH (RBC) [Entitic mass] 31.0 pg Normal 27.0-34.0 [facility] Comment on above: Performed By: #### 2 016514, [id number] #### [facility] [address] [place] [address] MCHC (RBC) [Mass/Vol] 32.4 g/dL Normal 31.4-36.0 [facility] Comment on above: Performed By: #### 2 323696, [id number] #### [facility] [address] [place] [address] MCV (RBC) [Entitic vol] 95.7 fL Normal 80.0-100.0 [facility] Comment on above: Performed By: #### 2 920135, [id number] #### [facility] [address] [place] [address] Monocytes (Bld) [#/Vol] 0.4 E9/L Normal 0.2-1.0 [facility] Comment on above: Performed By: #### 2 457431, [id number] #### [facility] [address] [place] [address] Neutrophils (Bld) [#/Vol] 3.0 E9/L Normal 2.0-7.5 [facility] Comment on above: Performed By: #### 2 853976, [id number] #### [facility] Laboratory [address] [place] [address] Neutrophils/100 WBC (Bld) 72.5 % Normal 36.0-75.0 [facility] Comment on above: Performed By: #### 2 742385, [id number] #### [facility] Laboratory [address] [place] [address] Platelet 187.0 E9/L Normal 150.0-500.0 [facility] Comment on above: Performed By: #### 2 903663, 11599697 #### [facility] [address] [place] [address] Platelet mean volume (Bld) [Entitic vol] 8.3 fL Normal 6.4-10.8 [facility] Comment on above: Performed By: #### 2 091530, [id number] #### [facility] [address] [place] [address] RBC (Bld) [#/Vol] 2.9 E12/L Low 4.3-5.9 [facility] Comment on above: Performed By: #### 2 040349, [id number] #### [facility] [address] [place] [address] WBC corrected for nucl RBC Auto (Bld) [#/Vol] 4.1 E9/L Normal 4.0-11.0 [facility] Comment on above: Performed By: #### 2 205436, [id number] #### [facility] Laboratory [address] [place] [address] CHEMISTRYOrdered By: SYSTEM SYSTEM on 10-23-2023 Anion [...] Normal 25.1 - 36.5 second(s) [facility] Auto Coag Comment on above: Interpretive Data: [...] coagulation reagent and instrumentation as [facility]. Currently there are no coagulation studies available worldwide for children to 14 days, and no normal ranges. Heparin therapeutic range (represented by Anti-Factor Xa activity of 0.2 - 0.4 U/mL) corresponds to PTT of 56.6 - 109.0 sec. INR Coag (PPP) [Relative time] 1.13 {INR} Invalid Interpretation Code [facility] Auto Coag Comment on above: Interpretive Data: I NR results are specifically intended to assess patients stabilized on long-term Anticoagulation therapy suggested INR s Less Intensive Anticoagulation 2.0 3.0 Conventional Range 3.0 4.5 PT Coag (PPP) [Time] 12.7 s High 9.4 - 1 2.5 second(s) [facility] Auto Coag Comment on above: Interpretive Data: [...] coagulation reagent and instrumentation as [facility]. Currently there are no coagulation studies available worldwide for children to 14 days, and no normal ranges. Consent for Procedure/Surger yon 10-23-2023 Consent for Procedure/Surgery [id number]# 1.00TIFF [facility] Consent for Treatmenton 09-27 Consent for Treatment [id number]#[address] [facility] HEMATOLOGYOrdered By: SYSTEM SYSTEM on 10-23-2023 [...] Remisol Heme Outside Recordson 10-23-2023 Outside Records [id number]# 1.00TIFF Normal [facility] PT & PTTon 10-23-2023 aPTT Coag (PPP) [Time] 30.4 second(s) Normal 25.1-36.5 [facility] Comment on above: Result Comment: Para meter [...] coagulation reagent and instrumentation as [facility]. Currently there are no coagulation studies available worldwide for children to 14 days, and no normal ranges. Heparin therapeutic range (represented by Anti-Factor Xa activity of 0.2 - 0.4 U/mL) corresponds to PTT of 56.6 - 109.0 sec. Performed By: #### 2 [id number], [id number] #### [facility] Laboratory [address] [place] [address] INR Coag (PPP) [Relative time] 1.13 {INR} Invalid Interpretation Code [facility] Comment on above: Result Comment: INR results are specifically intended to assess patients stabilized on long-term Anticoagulation therapy suggested INR?s ?Less Intensive Anticoagulation? 2.0 ? 3.0 Conventional Range 3.0 ? 4.5 Performed By: #### 2 764403, [id number] #### [facility] Laboratory [address] [place] [address] PT Coag (PPP) [Time] 12.7 second(s) High 9.4-12.5 [facility] Comment on above: Result Comment: 15 d [...] coagulation reagent and instrumentation as [facility]. Currently there are no coagulation studies available worldwide for children to 14 days, and no normal ranges. Performed By: #### 2 [id number], [id number] #### [facility] Laboratory [address] [place] [address] Physician Orderon 10-23-2023 Physician Order [id number] #1.00TIFF Normal [facility] XR Chest 2 Viewson XR Chest 2 [...] na DAP = na Normal [facility] eGFRon 10-23-2023 eGFR 28 mL/min/1.73 m2 Low >=59 [facility] Comment on above: Order Comment: Order added by Discern Expert. Performed By: #### 1 [id number], [id number] ####[facility] [address] [place] [address] ED Note-Physicianon 10-21-19 ED Note-Physician [id number]#1 .00TIFF Normal [facility] Lab Reportson 10-16-2023 Lab Reports [id number]#1 .00TIFF Normal [facility] Ambulatory Visit Summaryon 0 10-02-2023 Ambulatory Visit [...] choosing us for your care. Normal 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 [facility] Comment on above: Result Comment: Elec [...] Recorded SARS-CoV-2 (COVID-19 (more content not included)... [facility] Comment on above: Result Comment: Elec tronically Signed By: Greg CHAMBERS, Mary Jane Eddy\.br\Date and Time Signed: 09/30/23 14:51 EST Consultation Noteon 09-09-19 24 Consultation Note [id number]#1 [address]00[address] [facility] Physician Referralon 024 Physician Referral [id number]#[address] [facility] Family Medicine Office/Clini c Noteon 09-04-2023 Family Medicine Office/Clinic Note HPI Staff Ry is a 87 year old male presenting to review x-rays Pt has x-rays done on 08/28/23, CT chest on 08/30/[address] right shoulder 09/02/23 Pt needs refill on furosemide pt states he went to cash reconciliation specialist Dr Venegas and he stated that he [...] pt referred to GI at [facility]. liver enzymes ordered as well. pt will have labs drawn at [facility]. RTC 1 month to touch base with all of the additional testing and referral we have placed. Ordered: [facility] Internal Ambulatory Referral 2. Nodule of kidney [...] HGB dropped critically low Ordered: [facility] Internal Ambulatory Referral 5. Abnormal x-ray of [...] ortho at this time Ordered: [facility] External Ambulatory Referral 7. BMI 31.0-31.9,adult (Z68.31: [...] influenza virus (more content not included)... [facility] Comment on above: Result Comment: Elec tronically Signed By: Sheng Simms\.br\Date and Time Signed: 09/04/23 12:27 EST Physician Referralon 024 Physician Referral [id number]#[address] [facility] Ambulatory Visit Summaryon 0 09-03-2023 Ambulatory [...] EST With: Sheng Simms Where: [facility] Family Medicine [facility] Lab Reportson 09-03-2023 Lab Reports [id number]#[address] [facility] Physician Orderon 09-03-2023 Physician Order [id number]#[address] [facility] Consultation Noteon 08-30-19 Consultation Note [id number]#[address] [facility] Physician Orderon 08-30-2023 Physician Order [id number]#[address] [facility] Physician Orderon 08-29-2023 Physician Order [id number]#[address] [facility] Physician Order [id number]#[address] [facility] RAD - MISCon 08-29-2023 RAD - MISC [id number]# 1.00TIFF [facility] RAD - MISC [id number]# 1.00TIFF [facility] RAD - MISC [id number]#[address] [facility] Ambulatory Visit Summaryon 0 08-28-2023 Ambulatory [...] 10:20 AM EST With: Sheng Simms Where: [facility] [place] Normal [facility] Family Medicine Office/Clini c Noteon 08-28-2023 Family [...] of clutter to prevent tripping and/or falling. [place] Advance Directives reviewed, yes on file in [...] has a difficult (more content not included)... [facility] Comment on above: Result Comment: Elec tronically Signed By: Sheng Simms\.br\Date and Time Signed: 08/28/23 13:35 EST\.br\Electronically Co-Signed By: Rene Brannon\.br\Date and Time Co-Signed: 08/28/23 13:09 EST Formson 08-28-2023 Forms [id number]#[address] [facility] Patient Educationon 08-28-19 Patient Education Caregiving [...] night-lights. ? Place frequently used items in hbri-wd-hdiqe places. Lower the shelves around your home [...] the way. ? Do not use floor turkmen or wax that makes floors slippery. If [...] include working with a physical therapist or circus trainer to improve your strength, balance, and endurance. Where to find more information ? Centers for Disease Control and Prevention, [place]: www.cdc.gov ? National [place] on A[place]: www.ed.nih.gov Contact a health care [...] (more content not included)... Normal [facility] Physician Referralon 023 Physician Referral [id number]# 1.00TIFF [facility] Ambulatory Visit Summaryon 1 09-03-2022 Ambulatory [...] Saturday 11:00 AM EST Where: [facility] Family Medicine [place] Normal [facility] Family Medicine Office/Clini c Noteon 07-03-2023 Family [...] drawn at that visit. Ordered: [facility] External Ambulatory Referral [facility] External Ambulatory Referral 2. Skin texture changes (R23.4: Changes in skin texture) pt has a couple areas on his face that have changes in shape and color and will come off or flake off then comes back. Dr. Silva froze a couple areas a few years ago. will refer to dermatology to manage these areas and his eczema. Ordered: [facility] External Ambulatory Referral [facility] External Ambulatory Referral 3. BMI 31.0-31.9,adult (Z68.31: Body mass index [BMI] 31.0-31.9, adult) BMI education complete Ordered: Body Mass Index (BMI) documented 3008F Current tobacco non-user 1036F Depression Screening Negative 3352F [facility] External Ambulatory Referral [facility] External Ambulatory Referral Influenza immunization status assessed [...] 1036F Depression Screening Negative 3352F [facility] External Ambulatory Referral [facility] External Ambulatory Referral Influenza immunization status assessed [...] 1036F Depression Screening Negative 3352F [facility] External Ambulatory Referral [facility] External Ambulatory Referral Influenza immunization status assessed [...] (more content not included)... Normal [facility] Comment on above: Result Comment: Elec tronically Signed By: Sheng Simms.viviane\Date and Time Signed: 07/03/23 12:49 EST Lab Reportson 07-02-2023 Lab Reports [id number]#1 .00TIFF Normal [facility] Office Visiton 05-15-2023 Follow-up visit [id number] Ry Lerner Lisbet 1935 M Date Provider Department Center 05/15/2023 [place] G[facility] Family History Family history unknown: Yes Level of Service:09625 [place] OFFICE/OUTPATIENT ESTABLISHED MOD MDM 30-39 MIN Normal [facility] Physician Referralon 023 Physician Referral [id number]#1 .00CD:127 Normal [facility] Consultation Noteon 03-11-20 Consultation Note [id number]#1 .00CD:127 [facility] Family Medicine Office/Clini c Noteon 01-23-2023 [...] at this time. Patient was treated at [facility]. Questions/Concerns: History of Present Illness pt [...] to follow up with Dr. Vargas in [place] and also placed a GI consult. since then his so he has not made any of those appointments. pt wants to stop taking lasix. encouraged daughter to make appointment with Dr. Vargas and let him decide if he can stop lasix. will draw pt/ptt in office today and compare to labs that were drawn in [place] end of November. still waiting for those labs. will call pt tomorrow once we have lab results. omeprazole refills also sent to pharmacy. 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 Dr. Vargas's office was called notified. [...] (more content not included)... Normal [facility] Comment on above: Result Comment: Elec tronically Signed By: Brissa CLERK OF SUPERIOR COURT, Sheng L\.br\Date and Time Signed: 01/23/23 16:36 EDT Coding Summaryon 01-01-2023 Coding Summary HTMLBase 64 IozukcauGPw3oRu+PGhlY WQ+LP5LZISnW51cqIYswS 3kJ2WTXWnJCghnJJRTYEr AYxMbunItTX7clBLnFBCe IC8+EN1qZXBhJdkjmAEap 4Z9jSP1G46dzz5oQUiksG V2HXIdNzQinijss0fylXz 6IDcuNmluOyBt LTMfxM14YDG9vT77Qu62x YHeiRKms8qqkOy0AsKjXH TbYNC2qMamVEmje7FrSGI lZ77vjSGel7N7 HEFxuIbcmZRsShUzoMF0c G5uWYoggivwa5xzqqsuZh s2pu82gNZvh2H0yNO2Q4M ycnI0UFWqsUYy RoftnDSXiO1ojajyq3sna maqNtNeCFOxFRk2ZXc9QD UjzIruRfCqMA29TYJ6GJE vlfKmI3ZcKYFh eMnzTzO5j4X0Dw4QU2THF oduJ7NCJFSRRGohvOX+PC 15bq70K7BuBcjdTvz1QOZ bXVP4wQY8tS4a MQNdAJvhs1R6cGC0Q7Sen wQnqc1dr6meLJTaJQtyZ1 2uiSYzb0P9TBLezPH3TPF wjBqyWmXzzN61 Oyc+FFUcxGqsu2DiScxvd 5yan0vrlCj2EwofFXAfij HkdAiqZXF9o7ZiFu8vUMQ siZC7bYA2nH2c UlSgJmB3VQdnS285GeCzb IJjNkyyH43aT1SmrTT+PH PlMxg3OSTixKloAH7zB6B hZGRpbmctbGVm zEasEU5pFJOymieiFPNat J7gAZMrJ8f6UcDuUkB8NR unG9RjLJXhgxvmWz99lQ1 sVoJaZgZ3XXug R6RvshD7RPOvbHMhWWehH UQ0T11ql8Z4XQVyNJJwWR G9yWB8hF6guUklfrnqzYP mdDsgdmVydGlj FBrmFExoP844EWTmjFpfE kNvZGluZyBEYXRlOiAgMD YvMDYvMjAyMzwvdGQ+PHR eUJA2yJujYYAl bMSvLYlwPt6knDrlcMlwC R7rLBFsjoctXPPvcV4kVF QyqVZvyPdzDE1jHRCnblj bs994RoBwRNH1 RZQrlWUoB6XgbS6mVmVbX ZZkQFEaK4QpcXHcMDceR7 03QHgpDpB0DGUvuaQbG2F sLWFsaWduOiB0 q9T4Ic0Bn2GbfmsiM8Sgb KBzTtJcYaxwFMb1R6ObCm wvdHI+JF79GMKvYW33CQg 1GDI9yMliAQkx XSKdS5LzjI9lYuMcGIIrN GRkOyc+PHRhYmxlIHdpZH RoPScxMDAlJyBzdHlsZT0 aXg7uGLObRSOe rBdruYGgSkYvq9qdJMEbN GbhSC3ywDeqH6JtlRD6CM Xgj8z9La53F79oA8NqrUG +CEIdyWL0cQA8 nH2bFdAyOlY3GHixW336T fJezUStYqlat2afh6ukwT u9LoL9FVIykzMgyAsxIKP 2a8NbZn78L84g IHdpZHRoPSIxNSUiIHZhb Iphli1lpF8qHb9+PGNvbC S1eAX9zA7bCfVeLfQ8CXl uO101HwBuuXMl Qwpnr9fzj0npeNv9DtJqY JKzarVsePvxRCB5d6WvWi 21V9QymGwyw6MdLos6bk0 1nHNdx3A5sKL0 R1QbXDOspszqoPTieJsiX B7eJZWhbcjyRPVmvK7cQF TnX9s9CgBeRsH0MUwyJ9H mmbL3XLHdyFZp BYUqoNJYbL6ydgtue9yxk vydDmJbKXOlFOz2QXp8RK UtuGysAaJhYWC3YuA2SYA 7aZTohL3xfHin xlxowO1pJyn+QFK3tVHha LPVCJ8fOrzxeAD+PHRkIH E8pPchPWdeBEBgpF9jPKP pQ8w6SxXhXiA7 WQtwQ5ScjiJ0AMArfSHtA CDczMGEpD1tazafa8ympr dlGfDpPVCwQJd1VDg7FNH saWduOiBsZWZ0 BhU9KVG7gREyfM0kaNnas bctoY1wYwk+QmlydGggRG K5MGx3X9DtPch6IJPigKp iZJ2xyBWeIGiu Xo9kgZrabRriIE6yKEEcq nwgp808MlCjw4krXQPyzB RjOEzxZAN4P65qd1A5VPQ wYPOrPSF7aCQ8 qY5jdQacsyocbMElcZwbu vUqkCzcKDciAHyoE161KF LygYmjStTiVXc1L1LvQkx 3XTBlvUqkUX4u pZCtTZcvZf8qbYmyoOpcN J9eABJdnstlb520RuNfl1 nxFKZrsMDuEQppMSM1C23 sy1Z4RVMhZBZa VHR0bRQ1kC0sgBeetzjkg GVmdDsgdmVydGljYWwtYW moY825CIVjmVvqZsMqlEd 4Z9KiSzf0PSTr bVylQR9sxMHwGSniFe3yr DwkdPifMB0jGHWwjgtph5 72QgHxw1biZGPcbKCpNDk jPGR4B41an1A1 BEQqBLVzCBP7lSC0qY2lu GlnbjogbGVmdDsgdmVydG nlDMlsWFpsD085EFTxlYj nPlBhdGllbnQg SWkzYDm5J7PyHmcesED+P I04RIGzRJ79wUKheGTgk2 vdmYk5WtSjNCYmBKO5hEq wTIrxp9JfKEHk Z52thWCfq4G7NIEfvOnfz FYfExIrlBM5dD1uWEdzac wqh6gyatkgRlahb9nuip2 9pG79T54jSDdh ZHRoPSIzMCUiIHZhbGlnb g4riK8vUq4+XYWafTS1vG K6sR7pQDFgQpN4JJhmG37 9InRvcCIvPjxj d7qjh2pqgNw4VsC2LUJxo uNzxPwwAIV0n7RoAw73A1 9sIHdpZHRoPSIyMCUiIHZ ebTksun0ioM4d Ii8+SCPtfYC9sAJ1iA3cR uSmPgS3DBlgY479AqUlfC MkOvdnH31uQ2JehCS+PHR bJxu8VFOipDyf AM0knTXpQKszBt4pSOX7Q bVqWmCfEMihU9VvPFSptg mnvfpvpZZ6XLTmTLSrbC0 2Fd4rhXbrAIDh aILDaR1bqbawl8wfgzfcY dYmXHTaRLo3MOb5VGXsdF ebQlXfSJQ6CfA6RIW8yWR wsX3ieQvkjqhb zT4iP8VwXCPktereEh31y O7nHbFqXbB7DBqrWzu+TU yRATRKJIFDWUUPNG4AQXp ZT48MMQ86YY45 mPXnb8R9qMG9J3RdEDKsg gldwhzbyCQ1NJTeTCAcmB 43xXKcLPjoPz6jk3V0l76 8DLNvSMRwhC82 Fc8weGgnZWAjyDUCpK4iv naoe0dfhwygEkCsGRJzXA v9UIf5MGBhpDgxBnEpXPR 0FrA6ONV3vHIr eF0fwXrnhfkstJ0dBwm+M DMvMDQvMTkzNTwvdGQ+PH GmUPZ9mHdvOOszPZFbfZ2 tTKYnL4j6PfMb YxI4CWtlD9QqMXExrbtvF n09iL6mJrBoIpQ6ELswQ4 AcopD1PIXgtIYeAYfaEST 5Y67jb1Q5SUAl XXRvOIT0dWA2yS4shCjjv jogbGVmdDsgdmVydGljYW ivDOwrT512KGMbtIsaPsl 7INnaZCJeZZ26 QE20dPEoc9L2dWC7S7QfA HPffktminbzrPB1XPTbBK JkaJ06qZJlQWjyIq1ea5H 2f350JRVjERZn xT78Ns7acDoqZDBgiLHKj T8pldndt2dujzgqWrQqAO YrVDa1MTz9XICkaInvHwA cIJS9CjD4TQA6 gRYxsP7qzBymukpsoX1dB yc+TUFMRTwvdGQ+PHRkIH D5nIyqNNmrQQWmlN1bVKK sP1e2QgVeJvU7 NImuJ0ThJSHdkcszSn41j Q7gKzTzGjM5ETsfI2Tird C7JSWnoSCcOLdwTTZ7S56 lk7U9WKErTJQh MZX8mQT1aM5rmHticktet GVmdDsgdmVydGljYWwtYW xfN444ARIuyVqhRbKgkTP TpKXgTKY5WI37 QB71O3TcIzzkhPZkcJR+P HRhYmxlIHdpZHRoPScxMD HhUbTkzDftSS7jZg0aUHB yLWNvbGxhcHNl HgLys5ytKXKfFFgwJB3df MgpP5DkuKG5OPBmn8j7Tt 08X79pL7GbcMA+PGNvbCB 9sTF0uP9mPrXz NrG1ALmkW542DkWnmLZbJ fyli6gxe7wbtVb0GuUcGP EwjlFmgNpxETF2f1YxCq1 3R08fXTbiIUZb OYEnBCBoOGSsrXjkxd1nh G9wIi8+DGEhgFJ4jDU2uJ 8cIrYbQaB8NTkxL791LzW eqIMoOnsaQ94t F3HgkJN+KLLnEed7MMCcw MnoCJ2wtFGlURrfWu2jHC C0PsGqBcXyEYdsA4IsNWE pbmctcmlnaHQ6 ADIpDJDuzJ51Vt4hiKvmD m9dTNPyZHU5IIEdlOKlH7 GqlL8hEmEcRLIuCIHiT9V jxEJdPVdfA678 GIkqHnI9FRNqtgDbZ5MjS PGixTuzIpH9s9F7Nb4HkF usaBXaYP1kUtOcHBt4N9V nHal2RQLnpVlx XZ5wlROuRUpwKg3jdSvdf EibHR3zNVVenkpih642Gt Ukb8xrCKVbnXKmVUohKUN 5Q67lx2I8RSGm RJKdNXE2uRK5qU1hvAdea jogbGVmdDsgdmVydGljYW miCEpaZ163VBWsnTpiVxV OBeq4D0QuMez9 TFFjuVrgLF6rcUZxFXhyV e9xoGcdlJmnFV0vELXfli wkh384JgMdp7lgJQBvcVU cNKhuOOS3U76o q8C0FFAzTFHhEEE7bSJ2j T2gwOilocdizNBygQnjzz DmcBziBYdiRGvoI072PHM uxWzbMc8URmh3 Y1CvFin0IEYceDapML4tm BQxKYfjYl9frMxrsMzmKB 2kIVTseunit041MfHqc5j kIDEwcHQgVGlt WAH7N17vs0Y3KYKdYJRzL FX0mLI2nX8tcNcdifrqwI VmdDsgdmVydGljYWwtYWx oJ589FMUumGis PlBheWVyOjwvdGQ+PC90c p55P1IpGedyAcb9CFVlFW R0wOY7iX6kTOBlDBwkz2R 3lUY2U9ZpwmZd ci1 (more content not included)... [facility] Consent Formson 01-01-2023 Consent Forms [id number] [email or web address] [facility] Inpatient Patient Summaryon 12-31-2022 [place] [address] Patient Discharge Instructions Name: RY LERNER : 1935 Patient Address: [address] [place] [address] Primary Care Provider: Name: John Nieves MD After you are discharged if you find you have any questions, please, call [phone] ext [phone] to speak to a nurse. Discharge Diagnosis: Carpal tunnel syndrome, right Prescription Information: If you have been given a prescription for narcotics, seek immediate medical attention if you have any difficulty breathing or any sudden status changes such as confusion and sleepiness. If you or anyone you know is experiencing suicidal thoughts, mental health, alcohol and/or drug addiction problems; contact the [facility] 18/02 Crisis Hotline -Text 0RUBD cz 742605. If you received any narcotics, sedation, or [...] business decisions or sign any legal documents [facility] would like to thank you for allowing us to assist you with your healthcare needs. The following includes patient education materials and information regarding your injury/illness. RY LERNER has been given the following list of follow-up instructions, prescriptions, and patient education materials: Follow-up Instructions With: Address: When: MARJ PEREZ [address] [place] [address], [address] [place] [address] [facility] (1) 01/09/2023 11:00 AM Medications During the [...] 1 cap(s) Oral every day. Lindsey's wort (Margaret's wort oral tablet) 1 tab(s) Oral 2 [...] 3. DO NOT lift heavy objects or back roller forcefully with your hand 4. Change your [...] or concerns, please call the office at [phone] 7. Follow up as scheduled Viruses or Bacteria What?s got you sick? Antibiotics only treat bacterial infections. Viral illnesses cannot be treated with antibiotics. When an antibiotic is not prescribed, ask your healthcare professional for tips on how to relieve symptoms and feel better. Usual Cause Illness Viruses Bacteria Antibiotic Neede (more content not included)... Normal [facility] MAGR Intraoperative Recordon 12-31-2022 MAGR Intraoperative Record MAGR Intra-Op Record Summary Primary Physician: Ward Martinez DO Finalized Date/Time: 12/31/22 11:56:55 Pt. Name: RY LERNER/Sex: 1935 MALE Med Rec #: [id number] Physician: Ward Martinze DO Financial #: [id number] Pt. Type: D Room/Bed: / Admit/Disch: 12/31/22 [...] RN, DO Role Performed Surgeon - Primary Prosthetic Aides Teacher Prosthetic Aides Teacher Time In 12/31/22 09:15:00 12/31/22 09:15:00 12/31/22 09:15:00 Time Out 12/31/22 09:37:00 12/31/22 09:46:00 12/31/22 09:46:00 Procedure Carpal Tunnel Carpal Tunnel Carpal Tunnel Release(Right) Release(Right) Release(Right) Last Modified By: Chelita Borjas RN, RN, Chelita Mc RN 12/31/22 09:49:26 12/31/22 09:49:26 12/31/22 09:49:26 Entry 4 Entry 5 Case Attendee Lavern Vasques Kelly CST FINISHED CLOTH CHECKER Role Performed Malted Milk Mixer Scrub Personnel Time In 12/31/22 09:15:00 [...] By Chelita Borjas RN Scrub 10% Povidone-Iodine [place] Prep Area (Im.270) Elbow and forearm, Prep Area Details Right Hand, Wrist Skin Prep Agent Dry Yes Without Pooling Hair Removal Syntegrity Hair Removal Methods No hair removal performed Outcome Met (O.100) Yes Last Modified By: [place] PERSAUD Chelita Alcides 12/31/22 11:55:12 Pos (more content not included)... [facility] MAGR Preoperative Recordon 0 12-31-2022 MAGR Preoperative Record MAGR Pre-Op Record Summary Primary Physician: Ward Martinez DO Finalized Date/Time: 12/31/22 09:13:14 Pt. Name: YANN RY PERRY /Sex: 1935 MALE Med Rec #: [id number] Physician: Ward Martinez DO Financial #: [id number] Pt. Type: D Room/Bed: / Admit/Disch: 12/31/22 [...] Signed By: Vicky Ponce RN 12/31/22 09:13 [facility] Patient Handouton 12-31-[address] HUDDLESTONS POST OPERATIVE CARPEL TUNNEL INSTRUCTIONS SURGEONS WRITTEN INSTRUTCTIONS: 1. Keep your hand elevated above your elbow for the first 24 hours after surgery 2. Wiggle your fingers frequently while awake 3. DO NOT lift heavy objects or back roller forcefully with your hand 4. Change your [...] or concerns, please call the office at [phone] 7. Follow up as scheduled Normal [facility] CBC AUTO DIFFon 12-25-2022 BASO # 0.0 103/ul Normal 0.0-0.1 [facility] Comment on above: Performed By: #### C BC #### [facility] [address] [address] [address] Rashmi Nolan Basophils/100 WBC (Bld) 0.6 % Normal 0.2-2.0 [facility] Comment on above: Performed By: #### C BC #### [facility] [address] [address] [address] Rashmi Nolan EO # 0.2 103/ul Normal 0.0-0.7 [facility] Comment on above: Performed By: #### C BC #### [facility] [address] [address] [address] Rashmi Nolan Eosinophils/100 WBC (Bld) 6.9 % Normal 0.9-7.0 [facility] Comment on above: Performed By: #### C BC #### [facility] [address] [address] [address] Rashmi Nolan Erythrocyte distribution width (RBC) [Ratio] 14.0 % Normal 11.0-15.0 [facility] Comment on above: Performed By: #### C BC #### [facility] [address] [address] [address] Rashmi Nolan Hematocrit (Bld) [Volume fraction] 29.8 % Critically low 42.0-54.0 [facility] Comment on above: Performed By: #### C BC #### [facility] [address] [address] [address] Rashmi Nolan Hemoglobin (Bld) [Mass/Vol] 9.8 g/dL Critically low 14.0-18.0 [facility] Comment on above: Performed By: #### C BC #### [facility] [address] [address] [address] Rashmi Nolan IG # 0.02 10e3/ul Normal 0.00-0.03 [facility] Comment on above: Performed By: #### C BC #### [facility] [address] [address] [address] Rashmi Nolan IG % 0.6 % Critically high 0.0-0.5 [facility] Comment on above: Performed By: #### C BC #### [facility] [address] [address] [address] Rashmi Nolan LYMPH # 0.8 103/ul Critically low 1.2-3.8 [facility] Comment on above: Performed By: #### C BC #### [facility] [address] [address] [address] Rashmi Nolan Lymphocytes/100 WBC (Bld) 25.1 % Normal 20.5-60.0 [facility] Comment on above: Performed By: #### C BC #### [facility] [address] [address] [address] Rashmi Nolan MANUAL DIFF REQ NO Normal [facility] Comment on above: Performed By: #### C BC #### [facility] [address] [address] [address] Rashmi Nolan MCH (RBC) [Entitic mass] 33.0 pg Normal 25.9-34.0 [facility] Comment on above: Performed By: #### C BC #### [facility] [address] [address] [address] Rashmi Nolan MCHC (RBC) [Mass/Vol] 32.9 g/dL Normal 29.9-35.2 [facility] Comment on above: Performed By: #### C BC #### [facility] [address] [address] [address] Rashmi Nolan MCV (RBC) [Entitic vol] 100.3 fL Critically high 80.0-94.0 [facility] Comment on above: Performed By: #### C BC #### [facility] [address] [address] [address] Rashmi Nolan MONO # 0.3 103/ul Normal 0.3-0.8 [facility] Comment on above: Performed By: #### C BC #### [facility] [address] [address] [address] Rashmi Nolan Monocytes/100 WBC (Bld) 9.6 % Normal 1.7-12.0 [facility] Comment on above: Performed By: #### C BC #### [facility] [address] [place] [address] Dr. Rashmi Nloan NEUT # 1.9 103/ul Normal 1.4-6.5 [facility] Comment on above: Performed By: #### C BC #### [facility] [address] [place] [address] Dr. Rashmi Nolan Neutrophils/100 WBC (Bld) 57.2 % Normal 43.0-75.0 [facility] Comment on above: Performed By: #### C BC #### [facility] [address] [place] [address] Dr. Rashmi Nolan Platelet mean volume (Bld) [Entitic vol] 10.5 fL Normal 9.5-13.5 [facility] Comment on above: Performed By: #### C BC #### [facility] [address] [place] [address] Dr. Rashmi Nolan PLT 129 103/ul Critically low 150-[address] [facility] Comment on above: Performed By: #### C BC #### [facility] [address] [address] [address] Rashmi Nolan RBC 2.97 106/ul Critically low 4.70-6.10 [facility] Comment on above: Performed By: #### C BC #### [facility] [address] [address] [address] Rashmi Nolan WBC 3.3 103/ul Critically low 4.0-11.[address] [facility] Comment on above: Performed By: #### C BC #### [facility] [address] [address] [address] Rashmi Nolan PROTIMEon 12-25-2022 INR Coag (PPP) [Relative time] 1.03 {INR} Normal [facility] Comment on above: Performed By: #### B MP #### [facility] [address] [place] [address] Dr. Rashmi Nolan INR GUIDELINES SEE BELOW Normal [facility] Comment on above: Result Comment: ENOC RED INR: 2.0 - 3.0 CONDITIONS NOT LISTED BELOW 2.5 - 3.5 FOR PROSTHETIC HEART VALVE REPLACEMENT 2.5 - 3.5 RECURRENT THROMBOSIS Performed By: #### B MP #### [facility] [address] [place] [address] Dr. Rashmi Nolan PT Coag (PPP) [Time] 10.9 s Normal 9.0-11.6 [facility] Comment on above: Performed By: #### B MP #### [facility] [address] [place] [address] Dr. Rashmi Nolan PTTon 12-25-2022 aPTT Coag (Bld) [Time] 25.6 s Normal 22.3-36.2 [facility] Comment on above: Performed By: #### C BC #### [facility] [address] [place] [address] Dr. Rashmi Nolan Coding Summaryon 12-19-2022 Coding Summary HTMLBase 64 SstxynzwSYu4sBl+PGhlY WQ+EA9MRTXtE04wwYItbW 1rA5RLVVfUCupqFTBFQBh KWeRbsgBcHA2dnAQkPQRo IC8+OU1lXSZxCqiwlCKpb 8O5iMX3Q40zje4wNAlaaV D0XKAjSnAucpkpv4ztxXm 6IDcuNmluOyBt KSOhoT10SUR5cS17Nl03h HBtuNZur9qrwHv1GtLdMI GsVMY9lUueTTuib1RcYVQ hY81dnPMru2X8 PJRkuChoyIPjAcXeyND8n J3oCEqmuayxy4qjovfxMx c0gs13pOUgu3A0tGS9E8F xaiU2BSWskAAv MoviaTQMfQ7cshjxs6nov bvuIqTxEDDaSVa0GJb7EY ObdXzkWdKgAN40GSB1XCY bsvUrC4EoHSPz mZtcHrX7l9Q0Jm6IQ2BPA qawI4YKQPTVCGjufCQ+PC 02mr47R9BvDrssBkp8CKN cPDD9uKW4aK9b OUUcPNxke7E7aSX2O2Gvj gBumn0ki2npIZKoOAxvF4 9cqBEjk0R1QBIyySM4WES hnMpaDrHiqD26 Oyc+UOBtjAsob2IuIuwoy 6yqh9tlkPj4TacjKCMeue HspVhxARS6w6FuPa4jXVW rmNG6hZT0pL4c EbNaZvK5RUyfD415TaGkv VFrBiczH01zZ1PxfPF+PH FdQud0ADIrzJotZN7lM0P hZGRpbmctbGVm rJvzAP2kXEUuggcsDKXne K3xGXLjE6u4OxCkQzE3DN sjY8TgQXLmaebsNc50rA6 uBaRmDyX4XIne Z1ToegE9IGXxpEEaZGfbX TC7X43rj3Y5KNXcCMTiZN X9jRR7qJ4uuTjguuxhqIJ mdDsgdmVydGlj JOujGXwuU873TZOwcDmlS kNvZGluZyBEYXRlOiAgMD UvMjQvMjAyMzwvdGQ+PHR vEIE8oIizKKBo uBRkAChqTl4ccPzvrOsjL M1lHAEdpcuqKWVgjW6sWZ PjjPKpfIysUR9mXPIcunz bl732GuPfDSP3 WRLymTJlS5GxnP9mQySdR BXtWFKfD6QieDYuQEejD8 19OLdzWeM6VPRumiKxE1Z sLWFsaWduOiB0 g4R0Hn0Ka7QzmddqZ3Eci UTuWhNmImumLFk0C6NeTn wvdHI+MJ96FTFmOE51SRr 0TVQ8oIjmHPps VXWgH4OxlQ0wBeLnMJAcV GRkOyc+PHRhYmxlIHdpZH RoPScxMDAlJyBzdHlsZT0 lXf8hFZLkLOQn oDzimGViUdAoy5evTWWfC FsyPJ8ocMsqA3UzvPI5NQ Nwk1j1Re42X74oG6OjqIX +ZOLnjDR0tDU2 jF7oSgZoJoY2OKqsM777Y pGrrHYrQipan1mzu6fhdR q6EjJ6KWCjisCclYbgIOB 3m1AtNc71I30t IHdpZHRoPSIxNSUiIHZhb Dnrru1jcQ4wQi6+PGNvbC I1tUG8eN0qZoHbThL5FKw vG983QrWavGHw Fjtfi8tso0tyoIl8QjEdQ RMkowOrsTgoBBU0d6JuRw 73Z8YphCexi2WrMqb3pw4 4sXIdc3T7bRU6 Q7MoUEFksahzjBIopTbhI D5dIBHzfbouJJFzcE7sBU ZdD2f5XtIaEoP9DFjwQ5D labT6WEYndREa JDVcnAKKwO6tpkbsg5bws cwsNyPyBAPjDQp0SQf5MU PqlTcgTpZoCLH1LbE5HMR 5fNQjzR7mcDzw xrwyvP9qStl+ZVX7pWKjh KVIWO7qLnutwXD+PHRkIH I2oJqnATmsWRGyjM3gIQZ aN2c3ZaWbQcY6 NUsoQ9NcxhR3ZHWyiAMrA EOrrOKEvG0ybfmoz8dwwr wiXnRzHOSiMOv5URi7LQZ saWduOiBsZWZ0 DjS2NDV0iEJhqG2xgIfci chnfF9fIkx+QmlydGggRG C2ALx6Y5GhVct5LKRqeMv aEF5yxZTqKPlt Qw5nmRmmwMefVK6oQSWhc lvyf427UfKfc5agJBYcrJ RhDWolGNW6V36tm3Z7HOO wQEZcGCK7wXB5 tR8llLcsvcttnRChaPhdi gLvdDgpGSyaHVplL385WX LgzEziCuLyISx6H9BvXel 2ZFSpgZzhTT1h fHBuPItbQp2noHtseDjcF L9nDLIdalqkc598MoIei0 byPVMimUMfVEswSIP9Y12 ii7Q0LTKdPBFl DZB9wPG1eO1dhOqjcdgok GVmdDsgdmVydGljYWwtYW ixR993PXXcoRggMuPneIl 3D7KdRpu9KURr hYaeVY6zeIHrONxoMd1zo ZwvhUcfKK4aLDIhpnxle7 35YvTik0zjMTTutAWoVMh gIUB9C53fk9F7 HLRiLULqJWT9xFP5gF8ve GlnbjogbGVmdDsgdmVydG ftGRlbZSlzN445SNIiwDc nPlBhdGllbnQg QYiaRZg5A3HgGguiwEW+P M96BUMdUP00fVVpwGCmj1 eulGg6MhApPXVvJVY3tHp cPTrue7EvAPLx P23zaXGyc0J9NKRccGudg GBpMtFyiNX3rT2bWOodzj tup9rahbrgWdydu1yemc1 6pW42F91tMMmk ZHRoPSIzMCUiIHZhbGlnb d0akI6bIz0+BBKxnLZ6xW W0fU0cHVTkUlY7ZJkeI15 9InRvcCIvPjxj a8lab7zsxIn1IiF9BAMec uVblEziLCA4p3HpOj01J3 9sIHdpZHRoPSIyMCUiIHZ aiFppjl5aeC1l Ii8+TOBfmCE5yTA8wG9eU pHwBxQ7IBaeD403YcWqdC YuFfnpR31eZ3JbtBD+PHR bUyx1RXSlsTbu LP2apRWqZOyeCp1wBAU6Z uXhPkUaAWuaE2WrAGEykx tovunvuTE9KNDoRZHilV5 9Mo9rcOalCIJp nAVEtB8vvtzul1pkwhspW rFjHKDeLIb2ZHu3LBXqbP wgPxHjZUT7NrV8OYW3iUC yyP7yzNzapipv pK7wY6KvAJKlfizoGg46q N0bJqUlDwD7YQpoKhs+TU sTKDOSUFRUTSIKWW3HOGq SC59ANT11OJ92 kMUlr4F4jNE0E1UtNQWoh xjqfyjhpLN1LQKrIWMbzY 21aCGhFLkjMe5ro5Z4v44 1LQLfGIXpoM51 Bn2vvQofBWYpoCDQcL2nu bnbo2rcrcooZtCjLTEtOP u3HCw7VLPbvFctExIyFGR 1AfZ4WJV5pUGu cC4dtOkydqdslK6xDdo+M DMvMDQvMTkzNTwvdGQ+PH IhXSC8oWbdZJoxGPMjlK4 rGFJzX2j4XrAz QkF2OJuwF0AqVGUbtnjzN d26zD4lKqObItA2SHifD5 IoaxK8UTCznGOiUPhuRSI 3T22ki4C7DLQo NGNeIZW8nBY5gF6vrKcye jogbGVmdDsgdmVydGljYW oaEFbiX375BWRqsYxzNba 4FFrzKDReCQ83 DV61fAYdc5N3jAL2M9ApD SCdtbixcpcitBN6STZmCT TliF41xPOrEGbsKa1fv3F 9z181IEGxLHTx fQ43Yf8vtNzwIAImwIWKt W6fruhme5vrdttrGrNhKV PtFTa0QOz2IJCoyCniMzB bOKV6SsZ4XMM9 gWJxbB2dlExwiedyxB5yI yc+TUFMRTwvdGQ+PHRkIH B9pAfkNCmlXJQwuM2qMOP oV3e1OwKwViC0 UXabO4WaQNFskzxrZk26a A9oKbSvThQ2UPhsH2Teey X6GYVqeMCnGNnoURZ0E51 lh7R7KVRaQNMq VPV9aFH7oN5xcJqspqdkm GVmdDsgdmVydGljYWwtYW inV386REHxkKfzMxWbqMO SzAYoFFU9TE35 PF48L8JhBagmhFAgfHI+P HRhYmxlIHdpZHRoPScxMD QyAqTjdCnmYY8lZd1tYBA yLWNvbGxhcHNl WzMff2tfZPFyGHaiJY7hu EwsH5IogLZ8VXJaw3b2Na 17T95zI3GqtRI+PGNvbCB 3bPD9hN6qUkAy HyZ9OLmpK874LmXojDZqH rzlr5ztd0avyBp3RgOqLC NlleAxyRcnJTI2l9ZuPt6 5A99sHCkyQRAs KBVqBPEiIYBjsDwxll2yx G9wIi8+SHEbrER7eCV2rN 9rOpRvVeA4DZqwB813FaO oxYOdGpslO00z M5IknVZ+OXZwLge9CLIjg TsqTA7arJRcVIyxHo0aJX F3CsUoJeSuOImaS9VtAKG pbmctcmlnaHQ6 AIIeZDBhyN72Ej7zfWjmX r0aEEWgFAR2EWZmwMUqJ9 SqfR2jHxXcKXBiXZJkY6J pqCRqFDzeJ572 EYedOvB7INZoayRwG5ItD AXrdSofRhD8g8Q5Hx9VsC pivYGiMT7mWjTiIOf4N6F hHyb5THDsaIat WZ0quRFgKCucCh0iiAzin XaeQJ3nTSZqowvtl328Rs Yxh7yxJEPdfFHbSAywJPS 2O35vz0W4TIFk RCFgZCD4mDQ6eS3cxBrbm jogbGVmdDsgdmVydGljYW rgHCfbA800RLKvnWzbRqZ NHor2V9OyJlk4 YTXllAqgJF3gkXGoGAgjD o3giFgieFwdSQ0nBXXdry zfp560KtYax9gtQGDvxAZ xMHioDPK7H46y f3D0AIRbFVAfFUW0sYG2v A9hmMtwhiagsEMwuSekma JclNafDZbyQPhkF495DEY hxMctNc5ZRps9 C4QbImc4RYWmkWqsVF8zk ZWfYGueIo9nvLyfnEnzQQ 1rYCLxxdkku312SaPja5b kIDEwcHQgVGlt EFU9M32tx2I6MPUqFKSdZ WO2oVK8fM9zgWbweeazqC VmdDsgdmVydGljYWwtYWx jU869RYVenSlj PlBheWVyOjwvdGQ+PC90c o37Y2NbSoabFpv0LVDpHH K0qOQ0nA9sELZiZDlst2B 6gFC2N3OynwZa ci1 (more content not included)... Normal [facility] CBC AUTO DIFFon 12-14-2022 BASO # 0.0 103/ul Normal 0.0-0.1 [facility] Comment on above: Performed By: #### C BC #### [facility] [address] [address] [address] Rashmi Nolan Basophils/100 WBC (Bld) 0.6 % Normal 0.2-2.0 [facility] Comment on above: Performed By: #### C BC #### [facility] [address] [address] [address] Rashmi Nolan EO # 0.4 103/ul Normal 0.0-0.7 [facility] Comment on above: Performed By: #### C BC #### [facility] [address] [address] [address] Rashmi Nolan Eosinophils/100 WBC (Bld) 11.9 % Critically high 0.9-7.0 [facility] Comment on above: Performed By: #### C BC #### [facility] [address] [place] [address] Dr. Rashmi Nolan Erythrocyte distribution width (RBC) [Ratio] 15.2 % Critically high 11.0-15.0 [facility] Comment on above: Performed By: #### C BC #### [facility] [address] [place] [address] Dr. Rashmi Nolan Hematocrit (Bld) [Volume fraction] 26.3 % Critically low 42.0-54.0 [facility] Comment on above: Performed By: #### C BC #### [facility] [address] [place] [address] Dr. Rashmi Nolan Hemoglobin (Bld) [Mass/Vol] 8.9 g/dL Critically low 14.0-18.0 [facility] Comment on above: Performed By: #### C BC #### [facility] [address] [place] [address] Dr. Rashmi Nolan IG # 0.01 10e3/ul Normal 0.00-0.03 [facility] Comment on above: Performed By: #### C BC #### [facility] [address] [address] [address] Rashmi Nolan IG % 0.3 % Normal 0.0-0.5 [facility] Comment on above: Performed By: #### C BC #### [facility] [address] [address] [address] Rashmi Nolan LYMPH # 0.8 103/ul Critically low 1.2-3.8 [facility] Comment on above: Performed By: #### C BC #### [facility] [address] [place] [address] Dr. Rashmi Nolan Lymphocytes/100 WBC (Bld) 25.1 % Normal 20.5-60.0 [facility] [facility] [place] Comment on above: Performed By: #### C BC #### [facility] [address] [place] [address] Dr. Rashmi Nolan MANUAL DIFF REQ NO Normal [facility] Comment on above: Performed By: #### C BC #### [facility] [address] [place] [address] Dr. Rashmi Nolan MCH (RBC) [Entitic mass] 33.0 pg Normal 25.9-34.0 [facility] [place] Comment on above: Performed By: #### C BC #### [facility] [address] [place] [address] Dr. Rashmi Nolan MCHC (RBC) [Mass/Vol] 33.8 g/dL Normal 29.9-35.2 [facility] [place] Comment on above: Performed By: #### C BC #### [facility] [address] [place] [address] Dr. Rashmi Nolan MCV (RBC) [Entitic vol] 97.4 fL Critically high 80.0-94.0 [facility] [place] Comment on above: Performed By: #### C BC #### [facility] [address] [place] [address] Dr. Rashmi Nolan MONO # 0.3 103/ul Normal 0.3-0.8 [facility] [place] Comment on above: Performed By: #### C BC #### [facility] [address] [place] [address] Dr. Rashmi Nolan Monocytes/100 WBC (Bld) 9.0 % Normal 1.7-12.0 [facility] [place] Comment on above: Performed By: #### C BC #### [facility] [address] [address] [address] Rashmi Nolan NEUT # 1.7 103/ul Normal 1.4-6.5 [facility] [place] Comment on above: Performed By: #### C BC #### [facility] [address] [address] [address] Rashmi Nolan Neutrophils/100 WBC (Bld) 53.1 % Normal 43.0-75.0 [facility] [place] Comment on above: Performed By: #### C BC #### [facility] [address] [address] [address] Rashmi Nolan Platelet mean volume (Bld) [Entitic vol] 10.2 fL Normal 9.5-13.5 [facility] [place] Comment on above: Performed By: #### C BC #### [facility] [address] [address] [address] Rashmi Nolan PLT 139 103/ul Critically low 150-450 [facility] Comment on above: Performed By: #### C BC #### [facility] [address] [address] [address] Rashmi Nolan RBC 2.70 106/ul Critically low 4.70-6.10 [facility] Comment on above: Performed By: #### C BC #### [facility] [address] [address] [address] Rashmi Nolan WBC 3.1 103/ul Critically low 4.0-11.0 [facility] Comment on above: Performed By: #### C BC #### [facility] [address] [place] [address] Dr. Rashmi Nolan MAGR Intraoperative Recordon 12-14-2022 MAGR Intraoperative Record MAGR Intra-Op Record Summary Primary Physician: Ward Martinez DO Finalized Date/Time: 12/14/22 09:30:19 Pt. Name: RY LERNER/Sex: 1935 MALE Med Rec #: [id number] Physician: Ward Martinez DO Financial #: [id number] Pt. Type: D Room/Bed: / Admit/Disch: 12/10/22 [...] Andrew DO Role Performed Surgeon - Primary Prosthetic Aides Teacher Prosthetic Aides Teacher Time In 12/10/22 15:05:00 12/10/22 14:54:00 12/10/22 14:54:00 Time Out 12/10/22 15:30:00 12/10/22 15:30:00 12/10/22 15:30:00 Procedure Carpal Tunnel Carpal Tunnel Carpal Tunnel Release(Left) Release(Left) Release(Left) Last Modified By: Maile Palmer RN, Barbara RN Long, Barbara RN 12/10/22 15:29:30 12/10/22 15:29:30 12/10/22 15:29:30 Entry 4 Entry 5 Case Attendee Macie Licea CST, CST, Brandi Role Performed Malted Milk Mixer Scrub Personnel Time In 12/10/22 14:54:00 [...] By Maile Palmer RN Scrub 10% Povidone-Iodine [place] Prep Area (Im.270) Arm lower Prep Area [...] injury Counts (more content not included)... Normal [facility] PROF CHEM 8 (BAS METB)on Anion gap [Moles/Vol] 12.6 mmol/L Normal [facility] Comment on above: Performed By: #### B MP #### [facility] [address] [address] [address] Rashmi Nolan Calcium [Mass/Vol] 9.7 mg/dL Normal 8.5-10.1 [facility] Comment on above: Performed By: #### B MP #### [facility] [address] [address] [address] Rashmi Nolan Chloride [Moles/Vol] 108 mmol/L Critically high 98-107 [facility] [place] Comment on above: Performed By: #### B MP #### [facility] [address] [address] [address] Rashmi Nolan CO2 [Moles/Vol] 24.5 mmol/L Normal 21.0-32.0 [facility] Comment on above: Performed By: #### B MP #### [facility] [address] [address] [address] Rashmi Nolan Creatinine [Mass/Vol] 1.68 mg/dL Critically high 0.70-1.30 [facility] [place] Comment on above: Performed By: #### B MP #### [facility] [address] [address] [address] Rashmi Nolan EGFR-AF CHINESE 47 mL/min/1.73m2 Critically low >=60 [facility] [place] Comment on above: Performed By: #### B MP #### [facility] [address] [address] [address] Rashmi Nolan EGFR-NON AF CHINESE 39 mL/min/1.73m2 Critically low >=60 [facility] [place] Comment on above: Performed By: #### B MP #### [facility] [address] [address] [address] Rashmi Nolan Glucose [Mass/Vol] 91 mg/dL Normal 74-106 [facility] Comment on above: Performed By: #### B MP #### [facility] [address] [address] [address] Rashmi Nolan Potassium [Moles/Vol] 5.1 mmol/L Normal 3.5-5.1 [facility] [place] Comment on above: Performed By: #### B MP #### [facility] [address] [address] [address] Rashmi Nolan Sodium [Moles/Vol] 140 mmol/L Normal 136-145 [facility] Comment on above: Performed By: #### B MP #### [facility] [address] [address] [address] Rashmi Nolan Urea nitrogen [Mass/Vol] 27.0 mg/dL Critically high 7.0-18.0 [facility] [place] Comment on above: Performed By: #### B MP #### [facility] [address] [address] [address] Rashmi Nolan Urea nitrogen/Creatinine [Mass ratio] 16.1 mg/mg Normal [facility] [place] Comment on above: Performed By: #### B MP #### [facility] [address] [address] [address] Rashmi Nolan CBC AUTO DIFFon 12-13-2022 BASO # 0.0 103/ul Normal 0.0-0.1 [facility] [place] Comment on above: Performed By: #### C BC #### [facility] [address] [address] [address] Rashmi Nolan Basophils/100 WBC (Bld) 0.6 % Normal 0.2-2.0 [facility] [place] Comment on above: Performed By: #### C BC #### [facility] [address] [place] [address] Dr. Rashmi Nolan EO # 0.4 103/ul Normal 0.0-0.7 [facility] [place] Comment on above: Performed By: #### C BC #### [facility] [address] [place] [address] Dr. Rashmi Nolan Eosinophils/100 WBC (Bld) 10.3 % Critically high 0.9-7.0 [facility] [place] Comment on above: Performed By: #### C BC #### [facility] [address] [place] [address] Dr. Rashmi Nolan Erythrocyte distribution width (RBC) [Ratio] 15.8 % Critically high 11.0-15.0 [facility] [place] Comment on above: Performed By: #### C BC #### [facility] [address] [place] [address] Dr. Rashmi Nolan Hematocrit (Bld) [Volume fraction] 25.7 % Critically low 42.0-54.0 [facility] [place] Comment on above: Performed By: #### C BC #### [facility] [address] [place] [address] Dr. Rashmi Nolan Hemoglobin (Bld) [Mass/Vol] 8.5 g/dL Critically low 14.0-18.0 [facility] [place] Comment on above: Performed By: #### C BC #### [facility] [address] [place] [address] Dr. Rashmi Nolan IG # 0.00 10e3/ul Normal 0.00-0.03 [facility] [place] Comment on above: Performed By: #### C BC #### [facility] [address] [place] [address] Dr. Rashmi Nolan IG % 0.0 % Normal 0.0-0.5 [facility] [place] Comment on above: Performed By: #### C BC #### [facility] [address] [place] [address] Dr. Rashmi Nolan LYMPH # 0.8 103/ul Critically low 1.2-3.8 [facility] Comment on above: Performed By: #### C BC #### [facility] [address] [place] [address] Dr. Rashmi Nolan Lymphocytes/100 WBC (Bld) 23.5 % Normal 20.5-60.0 [facility] [place] Comment on above: Performed By: #### C BC #### [facility] [address] [place] [address] Dr. Rashmi Nolan MANUAL DIFF REQ NO Normal [facility] Comment on above: Performed By: #### C BC #### [facility] [address] [place] [address] Dr. Rashmi Nolan MCH (RBC) [Entitic mass] 32.9 pg Normal 25.9-34.0 [facility] [place] Comment on above: Performed By: #### C BC #### [facility] [address] [place] [address] Dr. Rashmi Nolan MCHC (RBC) [Mass/Vol] 33.1 g/dL Normal 29.9-35.2 [facility] [place] Comment on above: Performed By: #### C BC #### [facility] [address] [place] [address] Dr. Rashmi Nolan MCV (RBC) [Entitic vol] 99.6 fL Critically high 80.0-94.0 [facility] [place] Comment on above: Performed By: #### C BC #### [facility] [address] [place] [address] Dr. Rashmi Nolan MONO # 0.3 103/ul Normal 0.3-0.8 [facility] [place] Comment on above: Performed By: #### C BC #### [facility] [address] [place] [address] Dr. Rashmi Nolan Monocytes/100 WBC (Bld) 8.9 % Normal 1.7-12.0 [facility] Comment on above: Performed By: #### C BC #### [facility] [address] [place] [address] Dr. Rashmi Nolan NEUT # 2.0 103/ul Normal 1.4-6.5 [facility] [place] Comment on above: Performed By: #### C BC #### [facility] [address] [address] [address] Rashmi Nolan Neutrophils/100 WBC (Bld) 56.7 % Normal 43.0-75.0 [facility] [place] Comment on above: Performed By: #### C BC #### [facility] [address] [address] [address] Rashmi Nolan Platelet mean volume (Bld) [Entitic vol] 10.5 fL Normal 9.5-13.5 [facility] [place] Comment on above: Performed By: #### C BC #### [facility] [address] [address] [address] Rashmi Nolan PLT 134 103/ul Critically low 150-450 [facility] Comment on above: Performed By: #### C BC #### [facility] [address] [address] [address] Rashmi Nolan RBC 2.58 106/ul Critically low 4.70-6.10 [facility] Comment on above: Performed By: #### C BC #### [facility] [address] [address] [address] Rashmi Nolan WBC 3.6 103/ul Critically low 4.0-11.0 [facility] Comment on above: Performed By: #### C BC #### [facility] [address] [address] [address] Rashmi Nolan PROF CHEM 8 (BAS METB)on Anion gap [Moles/Vol] 11.7 mmol/L Normal [facility] Comment on above: Performed By: #### C BC #### [facility] [address] [address] [address] Rashmi Nolan Calcium [Mass/Vol] 9.5 mg/dL Normal 8.5-10.1 [facility] Comment on above: Performed By: #### C BC #### [facility] [address] [address] [address] Rashmi Nolan Chloride [Moles/Vol] 110 mmol/L Critically high 98-107 [facility] [place] Comment on above: Performed By: #### C BC #### [facility] [address] [address] [address] Rashmi Nolan CO2 [Moles/Vol] 25.1 mmol/L Normal 21.0-32.0 [facility] Comment on above: Performed By: #### C BC #### [facility] [address] [address] [address] Rashmi Nolan Creatinine [Mass/Vol] 1.69 mg/dL Critically high 0.70-1.30 [facility] [place] Comment on above: Performed By: #### C BC #### [facility] [address] [address] [address] Rashmi Nolan EGFR-AF CHINESE 47 mL/min/1.73m2 Critically low >=60 [facility] [place] Comment on above: Performed By: #### C BC #### [facility] [address] [address] [address] Rashmi Nolan EGFR-NON AF CHINESE 38 mL/min/1.73m2 Critically low >=60 [facility] [place] Comment on above: Performed By: #### C BC #### [facility] [address] [address] [address] Rashmi Nolan Glucose [Mass/Vol] 93 mg/dL Normal 74-106 [facility] Comment on above: Performed By: #### C BC #### [facility] [address] [address] [address] Rashmi Nolan Potassium [Moles/Vol] 5.8 mmol/L Critically high 3.5-5.1 [facility] [place] Comment on above: Performed By: #### C BC #### [facility] [address] [address] [address] Rashmi Nolan Sodium [Moles/Vol] 141 mmol/L Normal 136-145 [facility] Comment on above: Performed By: #### C BC #### [facility] [address] [address] [address] Rashmi Nolan Urea nitrogen [Mass/Vol] 35.0 mg/dL Critically high 7.0-18.0 [facility] [place] Comment on above: Performed By: #### C BC #### [facility] [address] [place] [address] Dr. Rashmi Nolan Urea nitrogen/Creatinine [Mass ratio] 20.7 mg/mg Normal [facility] [place] Comment on above: Performed By: #### C BC #### [facility] [address] [place] [address] Dr. Rashmi Nolan ABO RH RETYPEon 12-12-2022 ABO and Rh group Nom (Bld) DONE Normal [facility] Comment on above: Performed By: #### C BC #### [facility] [address] [place] [address] Dr. Rashmi Nolan CBC AUTO DIFFon 12-12-2022 BASO # 0.0 103/ul Normal 0.0-0.1 [facility] [place] Comment on above: Performed By: #### C BC #### [facility] [address] [place] [address] Dr. Rashmi Nolan Basophils/100 WBC (Bld) 0.6 % Normal 0.2-2.0 [facility] [place] Comment on above: Performed By: #### C BC #### [facility] [address] [place] [address] Dr. Rashmi Nolan EO # 0.3 103/ul Normal 0.0-0.7 [facility] [place] Comment on above: Performed By: #### C BC #### [facility] [address] [place] [address] Dr. Rashmi Nolan Eosinophils/100 WBC (Bld) 7.6 % Critically high 0.9-7.0 [facility] Comment on above: Performed By: #### C BC #### [facility] [address] [place] [address] Dr. Rashmi Nolan Erythrocyte distribution width (RBC) [Ratio] 16.4 % Critically high 11.0-15.0 [facility] [place] Comment on above: Performed By: #### C BC #### [facility] [address] [place] [address] Dr. Rashmi Nolan Hematocrit (Bld) [Volume fraction] 27.2 % Critically low 42.0-54.0 [facility] Comment on above: Performed By: #### C BC #### [facility] [address] [address] [address] Rashmi Nolan Hemoglobin (Bld) [Mass/Vol] 9.1 g/dL Critically low 14.0-18.0 [facility] [place] Comment on above: Performed By: #### C BC #### [facility] [address] [address] [address] Rashmi Nolan IG # 0.01 10e3/ul Normal 0.00-0.03 [facility] [place] Comment on above: Performed By: #### C BC #### [facility] [address] [address] [address] Rashmi Nolan IG % 0.3 % Normal 0.0-0.5 [facility] [place] Comment on above: Performed By: #### C BC #### [facility] [address] [place] [address] Dr. Rashmi Nolan LYMPH # 0.9 103/ul Critically low 1.2-3.8 [facility] Comment on above: Performed By: #### C BC #### [facility] [address] [address] [address] Rashmi Nolan Lymphocytes/100 WBC (Bld) 25.3 % Normal 20.5-60.0 [facility] [place] Comment on above: Performed By: #### C BC #### [facility] [address] [address] [address] Rashmi Nolan MANUAL DIFF REQ NO Normal [facility] Comment on above: Performed By: #### C BC #### [facility] [address] [address] [address] Rashmi Nolan MCH (RBC) [Entitic mass] 33.0 pg Normal 25.9-34.0 [facility] [place] Comment on above: Performed By: #### C BC #### [facility] [address] [address] [address] Rashmi Nolan MCHC (RBC) [Mass/Vol] 33.5 g/dL Normal 29.9-35.2 [facility] [place] Comment on above: Performed By: #### C BC #### [facility] [address] [address] [address] Rashmi Nolan MCV (RBC) [Entitic vol] 98.6 fL Critically high 80.0-94.0 [facility] [place] Comment on above: Performed By: #### C BC #### [facility] [address] [address] [address] Rashmi Nolan MONO # 0.3 103/ul Normal 0.3-0.8 [facility] [place] Comment on above: Performed By: #### C BC #### [facility] [address] [address] [address] Rashmi Nolan Monocytes/100 WBC (Bld) 8.1 % Normal 1.7-12.0 [facility] [place] Comment on above: Performed By: #### C BC #### [facility] [address] [place] [address] Dr. Rashmi Nolan NEUT # 2.0 103/ul Normal 1.4-6.5 [facility] [place] Comment on above: Performed By: #### C BC #### [facility] [address] [place] [address] Dr. Rashmi Nolan Neutrophils/100 WBC (Bld) 58.1 % Normal 43.0-75.0 [facility] [place] Comment on above: Performed By: #### C BC #### [facility] [address] [place] [address] Dr. Rashmi Nolan Platelet mean volume (Bld) [Entitic vol] 10.0 fL Normal 9.5-13.5 [facility] [place] Comment on above: Performed By: #### C BC #### [facility] [address] [place] [address] Dr. Rashmi Nolan PLT 147 103/ul Critically low 150-[address] [facility] Comment on above: Performed By: #### C BC #### [facility] [address] [address] [address] Rashmi Nolan RBC 2.76 106/ul Critically low 4.70-6.10 [facility] Comment on above: Performed By: #### C BC #### [facility] [address] [address] [address] Rashmi Nolan WBC 3.4 103/ul Critically low 4.0-11.0 [facility] Comment on above: Performed By: #### C BC #### [facility] [id number] Rashmi Nolan BASO # 0.0 103/ul Normal 0.0-0.1 [facility] [place] Comment on above: Performed By: #### C BC #### [facility] [address] [address] [address] Rashmi Nolan Basophils/100 WBC (Bld) 0.6 % Normal 0.2-2.0 [facility] [place] Comment on above: Performed By: #### C BC #### [facility] [address] [address] [address] Rashmi Nolan EO # 0.2 103/ul Normal 0.0-0.7 [facility] Comment on above: Performed By: #### C BC #### [facility] [address] [place] [address] Dr. Rashmi Nolan Eosinophils/100 WBC (Bld) 6.6 % Normal 0.9-7.0 [facility] Comment on above: Performed By: #### C BC #### [facility] [address] [place] [address] Dr. Rashmi Nolan Erythrocyte distribution width (RBC) [Ratio] 16.4 % Critically high 11.0-15.0 [facility] Comment on above: Performed By: #### C BC #### [facility] [address] [place] [address] Dr. Rashmi Nolan Hematocrit (Bld) [Volume fraction] 26.1 % Critically low 42.0-54.0 [facility] Comment on above: Performed By: #### C BC #### [facility] [address] [place] [address] Dr. Rashmi Nolan Hemoglobin (Bld) [Mass/Vol] 8.5 g/dL Critically low 14.0-18.0 [facility] [place] Comment on above: Result Comment: rcvd . blood Performed By: #### C BC #### [facility] [address] [place] [address] Dr. Rashmi Nolan IG # 0.01 10e3/ul Normal 0.00-0.03 [facility] [place] Comment on above: Performed By: #### C BC #### [facility] [address] [place] [address] Dr. Rashmi Nolan IG % 0.3 % Normal 0.0-0.5 [facility] [place] Comment on above: Performed By: #### C BC #### [facility] [address] [place] [address] Dr. Rashmi Nolan LYMPH # 0.7 103/ul Critically low 1.2-3.8 [facility] Comment on above: Performed By: #### C BC #### [facility] [address] [place] [address] Dr. Rashmi Nolan Lymphocytes/100 WBC (Bld) 20.2 % Critically low 20.5-60.0 [facility] [place] Comment on above: Performed By: #### C BC #### [facility] [address] [place] [address] Dr. Rashmi Nolan MANUAL DIFF REQ NO Normal [facility] Comment on above: Performed By: #### C BC #### [facility] [address] [place] [address] Dr. Rashmi Nolan MCH (RBC) [Entitic mass] 32.7 pg Normal 25.9-34.0 [facility] [place] Comment on above: Performed By: #### C BC #### [facility] [address] [place] [address] Dr. Rashmi Nolan MCHC (RBC) [Mass/Vol] 32.6 g/dL Normal 29.9-35.2 [facility] [place] Comment on above: Performed By: #### C BC #### [facility] [address] [place] [address] Dr. Rashmi Nolan MCV (RBC) [Entitic vol] 100.4 fL Critically high 80.0-94.0 [facility] [place] Comment on above: Performed By: #### C BC #### [facility] [address] [address] [address] Rashmi Nolan MONO # 0.3 103/ul Normal 0.3-0.8 [facility] Comment on above: Performed By: #### C BC #### [facility] [address] [address] [address] Rashmi Nolan Monocytes/100 WBC (Bld) 7.7 % Normal 1.7-12.0 [facility] Comment on above: Performed By: #### C BC #### [facility] [address] [address] [address] Rashmi Nolan NEUT # 2.3 103/ul Normal 1.4-6.5 [facility] Comment on above: Performed By: #### C BC #### [facility] [address] [place] [address] Dr. Rashmi Nolan Neutrophils/100 WBC (Bld) 64.6 % Normal 43.0-75.0 [facility] [place] Comment on above: Performed By: #### C BC #### [facility] [address] [place] [address] Dr. Rashmi Nolan Platelet mean volume (Bld) [Entitic vol] 9.9 fL Normal 9.5-13.5 [facility] Comment on above: Performed By: #### C BC #### [facility] [address] [place] [address] Dr. Rashmi Nolan PLT 130 103/ul Critically low 150-[address] [facility] Comment on above: Performed By: #### C BC #### [facility] [address] [place] [address] Dr. Rashmi Nolan RBC 2.60 106/ul Critically low 4.70-6.10 [facility] System Comment on above: Performed By: #### C BC #### [facility] [address] [place] [address] Dr. Rashmi Nolan WBC 3.6 103/ul Critically low 4.0-11.[address] [facility] Comment on above: Performed By: #### C BC #### [facility] [address] [place] [address] Dr. Rashmi Nolan PRBC LEUKOREDUCEDon 12-13-19 ABO and Rh group Nom (Bld) Cross Match Result Compatible Unit Blood Type O Pos Unit Number [id number] Status Information Issued Product ID Red Blood Cells Product Code [id number] Issue Date/Time [id number] Cross Match Result Compatible Unit Blood Type O Pos Unit Number [id number] Status Information Issued Product ID Red Blood Cells Product Code [id number] Issue Date/Time [id number] Normal [facility] Comment on above: Performed By: #### C BC #### [facility] [address] [address] [address] Rashmi Nolan PROF CHEM 8 (BAS METB)on Anion gap [Moles/Vol] 14.8 mmol/L Normal [facility] Comment on above: Performed By: #### B MP #### [facility] [address] [place] [address] Dr. Rashmi Nolan Calcium [Mass/Vol] 9.2 mg/dL Normal 8.5-10.1 [facility] Comment on above: Performed By: #### B MP #### [facility] [address] [address] [address] Rashmi Nolan Chloride [Moles/Vol] 110 mmol/L Critically high 98-107 [facility] Comment on above: Performed By: #### B MP #### [facility] [address] [address] [address] Rashmi Nolan CO2 [Moles/Vol] 23.5 mmol/L Normal 21.0-32.0 [facility] Comment on above: Performed By: #### B MP #### [facility] [address] [address] [address] Rashmi Nolan Creatinine [Mass/Vol] 1.77 mg/dL Critically high 0.70-1.30 [facility] Comment on above: Performed By: #### B MP #### [facility] [address] [address] [address] Rashmi Nolan EGFR-AF CHINESE 44 mL/min/1.73m2 Critically low >=60 [facility] Comment on above: Performed By: #### B MP #### [facility] [address] [address] [address] Rashmi Nolan EGFR-NON AF CHINESE 36 mL/min/1.73m2 Critically low >=60 [facility] Comment on above: Performed By: #### B MP #### [facility] [address] [address] [address] Rashmi Nolan Glucose [Mass/Vol] 103 mg/dL Normal 74-106 [facility] Comment on above: Performed By: #### B MP #### [facility] [address] [address] [address] Rashmi Nolan Potassium [Moles/Vol] 5.3 mmol/L Critically high 3.5-5.1 [facility] Comment on above: Performed By: #### B MP #### [facility] [address] [address] [address] Rashmi Nolan Sodium [Moles/Vol] 143 mmol/L Normal 136-145 [facility] Comment on above: Performed By: #### B MP #### [facility] [address] [address] [address] Rashmi Nolan Urea nitrogen [Mass/Vol] 54.0 mg/dL Critically high 7.0-18.0 [facility] Comment on above: Performed By: #### B MP #### [facility] [address] [address] [address] Rashmi Nolan Urea nitrogen/Creatinine [Mass ratio] 30.5 mg/mg Normal [facility] Comment on above: Performed By: #### B MP #### [facility] [address] [address] [address] Rashmi Nolan CBC AUTO DIFFon 12-11-2022 BASO # 0.0 103/ul Normal 0.0-0.1 [facility] Comment on above: Performed By: #### C BC #### [facility] [address] [address] [address] Rashmi Nolan Basophils/100 WBC (Bld) 0.4 % Normal 0.2-2.0 [facility] Comment on above: Performed By: #### C BC #### [facility] [address] [address] [address] Rashmi Nolan EO # 0.2 103/ul Normal 0.0-0.7 [facility] Comment on above: Performed By: #### C BC #### [facility] [address] [place] [address] Dr. Rashmi Nolan Eosinophils/100 WBC (Bld) 5.2 % Normal 0.9-7.0 [facility] Comment on above: Performed By: #### C BC #### [facility] [address] [place] [address] Dr. Rashmi Nolan Erythrocyte distribution width (RBC) [Ratio] 14.6 % Normal 11.0-15.0 [facility] Comment on above: Performed By: #### C BC #### [facility] [address] [place] [address] Dr. Rashmi Nolan Hematocrit (Bld) [Volume fraction] 23.7 % Critically low 42.0-54.0 [facility] Comment on above: Performed By: #### C BC #### [facility] [address] [place] [address] Dr. Rashmi Nolan Hemoglobin (Bld) [Mass/Vol] 7.8 g/dL Critically low 14.0-18.0 [facility] Comment on above: Performed By: #### C BC #### [facility] [address] [place] [address] Dr. Rashmi Nolan IG # 0.01 10e3/ul Normal 0.00-0.03 [facility] Comment on above: Performed By: #### C BC #### [facility] [address] [place] [address] Dr. Rashmi Nolan IG % 0.2 % Normal 0.0-0.5 [facility] Comment on above: Performed By: #### C BC #### [facility] [address] [place] [address] Dr. Rashmi Nolan LYMPH # 0.9 103/ul Critically low 1.2-3.8 [facility] Comment on above: Performed By: #### C BC #### [facility] [address] [address] [address] Rashmi Nolan Lymphocytes/100 WBC (Bld) 19.6 % Critically low 20.5-60.0 [facility] Comment on above: Performed By: #### C BC #### [facility] [address] [place] [address] Dr. Rashmi Nolan MANUAL DIFF REQ NO Normal [facility] Comment on above: Performed By: #### C BC #### [facility] [address] [place] [address] Dr. Rashmi Nolan MCH (RBC) [Entitic mass] 34.7 pg Critically high 25.9-34.0 [facility] Comment on above: Performed By: #### C BC #### [facility] [address] [place] [address] Dr. Rashmi Nolan MCHC (RBC) [Mass/Vol] 32.9 g/dL Normal 29.9-35.2 [facility] Comment on above: Performed By: #### C BC #### [facility] [address] [place] [address] Dr. Rashmi Nolan MCV (RBC) [Entitic vol] 105.3 fL Critically high 80.0-94.0 [facility] Comment on above: Performed By: #### C BC #### [facility] [address] [place] [address] Dr. Rashmi Nolan MONO # 0.3 103/ul Normal 0.3-0.8 [facility] Comment on above: Performed By: #### C BC #### [facility] [address] [place] [address] Dr. Rashmi Nolan Monocytes/100 WBC (Bld) 7.2 % Normal 1.7-12.0 [facility] Comment on above: Performed By: #### C BC #### [facility] [address] [place] [address] Dr. Rashmi Nolan NEUT # 3.0 103/ul Normal 1.4-6.5 [facility] Comment on above: Performed By: #### C BC #### [facility] [address] [address] [address] Rashmi Nolan Neutrophils/100 WBC (Bld) 67.4 % Normal 43.0-75.0 [facility] Comment on above: Performed By: #### C BC #### [facility] [address] [address] [address] Rashmi Nolan Platelet mean volume (Bld) [Entitic vol] 9.8 fL Normal 9.5-13.5 [facility] Comment on above: Performed By: #### C BC #### [facility] [address] [address] [address] Rashmi Nolan PLT 156 103/ul Normal 150-450 [facility] Comment on above: Performed By: #### C BC #### [facility] [address] [address] [address] Rashmi Nolan RBC 2.25 106/ul Critically low 4.70-6.10 [facility] Comment on above: Performed By: #### C BC #### [facility] [address] [address] [address] Rashmi Nolan WBC 4.5 103/ul Normal 4.0-11.0 [facility] Comment on above: Performed By: #### C BC #### [facility] [address] [address] [address] Rashmi Nolan CHEMISTRYOrdered By: SYSTEM SYSTEM on 12-11-2022 Iron binding capacity [Mass/Vol] 417 ug/dL High 250 - 400 mcg/dL [facility] Remisol Transferrin [Mass/Vol] 298 mg/dL Normal 200 - 370 mg/dL [facility] Remisol Consent Formson 12-11-2022 Consent Forms [id number] [facility] HEMATOLOGYOrdered By: SYSTEM SYSTEM on 12-11-2022 Basophils/100 [...] Low 4.3 - 5.9 E12/L [facility] HemeAutoSS WBC corrected for nucl RBC Auto (Bld) [#/Vol] 5.2 E9/L Normal 4.0 - 11.0 E9/L [facility] HemeAutoSS MICRO OTHER TESTSOrdered By: Daniella Case on 12-11-2022 Occult Bld Stl Positive *ABN* (12/11/22 12:14 PM) Invalid Interpretation Code Negative [facility] Man Sero PROF 14(COMP METB)on 023 Albumin [Mass/Vol] 3.8 g/dL Normal 3.4-5.0 [facility] Comment on above: Performed By: #### B MP #### [facility] [address] [place] [address] Dr. Rashmi Nolan Albumin/Globulin [Mass ratio] 1.1 {ratio} Normal [facility] Comment on above: Performed By: #### B MP #### [facility] [address] [place] [address] Dr. Rashmi Nolan ALP [Catalytic activity/Vol] 178 U/L Critically high 46-116 [facility] Comment on above: Performed By: #### B MP #### [facility] [address] [place] [address] Dr. Rashmi Nolan ALT [Catalytic activity/Vol] 17 U/L Normal 16-63 [facility] Comment on above: Performed By: #### B MP #### [facility] [address] [address] [address] Rashmi Nolan Anion gap [Moles/Vol] 15.6 mmol/L Normal [facility] Comment on above: Performed By: #### B MP #### [facility] [address] [place] [address] Dr. Rashmi Nolan AST [Catalytic activity/Vol] 12 U/L Critically low 15-37 [facility] Comment on above: Performed By: #### B MP #### [facility] [address] [place] [address] Dr. Rashmi Nolan Bilirubin [Mass/Vol] 0.2 mg/dL Normal 0.2-1.0 [facility] Comment on above: Performed By: #### B MP #### [facility] [address] [place] [address] Dr. Rashmi Nolan Calcium [Mass/Vol] 9.5 mg/dL Normal 8.5-10.1 [facility] Comment on above: Performed By: #### B MP #### [facility] [address] [address] [address] Rashmi Nolan Chloride [Moles/Vol] 109 mmol/L Critically high 98-107 [facility] Comment on above: Performed By: #### B MP #### [facility] [address] [place] [address] Dr. Rashmi Nolan CO2 [Moles/Vol] 22.5 mmol/L Normal 21.0-32.0 [facility] Comment on above: Performed By: #### B MP #### [facility] [address] [place] [address] Dr. Rashmi Nolan Creatinine [Mass/Vol] 2.11 mg/dL Critically high 0.70-1.30 [facility] Comment on above: Performed By: #### B MP #### [facility] [address] [place] [address] Dr. Rashmi Nolan EGFR-AF CHINESE 36 mL/min/1.73m2 Critically low >=60 [facility] Comment on above: Performed By: #### B MP #### [facility] [address] [place] [address] Dr. Rashmi Nolan EGFR-NON AF CHINESE 30 mL/min/1.73m2 Critically low >=60 [facility] Comment on above: Performed By: #### B MP #### [facility] [address] [place] [address] Dr. Rashmi Nolan Globulin (S) [Mass/Vol] 3.4 g/dL Normal [facility] Comment on above: Performed By: #### B MP #### [facility] [address] [address] [address] Rashmi Nolan Glucose [Mass/Vol] 115 mg/dL Critically high 74-106 [facility] Comment on above: Performed By: #### B MP #### [facility] [address] [address] [address] Rashmi Nolan Potassium [Moles/Vol] 5.1 mmol/L Normal 3.5-5.1 [facility] Comment on above: Performed By: #### B MP #### [facility] [address] [address] [address] Rashmi Nolan Protein [Mass/Vol] 7.2 g/dL Normal 6.4-8.2 [facility] Comment on above: Performed By: #### B MP #### [facility] [address] [address] [address] Rashmi Nolan Sodium [Moles/Vol] 142 mmol/L Normal 136-145 [facility] Comment on above: Performed By: #### B MP #### [facility] [address] [address] [address] Rashmi Nolan Urea nitrogen [Mass/Vol] 57.0 mg/dL Critically high 7.0-18.0 [facility] Comment on above: Performed By: #### B MP #### [facility] [address] [place] [address] Dr. Rashmi Nolan Urea nitrogen/Creatinine [Mass ratio] 27.0 mg/mg Normal [facility] Comment on above: Performed By: #### B MP #### [facility] [address] [place] [address] Dr. Rashmi Nolan PROTIMEon 12-11-2022 INR Coag (PPP) [Relative time] 1.95 {INR} Normal [facility] Comment on above: Performed By: #### P T, PTT #### [facility] [address] [address] [address] Rashmi Nolan INR GUIDELINES SEE BELOW Normal [facility] Comment on above: Result Comment: ENOC RED INR: 2.0 - 3.0 CONDITIONS NOT LISTED BELOW 2.5 - 3.5 FOR PROSTHETIC HEART VALVE REPLACEMENT 2.5 - 3.5 RECURRENT THROMBOSIS Performed By: #### P T, PTT #### [facility] [address] [address] [address] Rashmi Nolan PT Coag (PPP) [Time] 19.9 s Critically high 9.0-11.6 [facility] Comment on above: Performed By: #### P T, PTT #### [facility] [address] [address] [address] Rashmi Nolan PTTon 12-11-2022 aPTT Coag (Bld) [Time] 30.3 s Normal 22.3-36.2 [facility] Comment on above: Performed By: #### P T, PTT #### [facility] [address] [address] [address] Rashmi Nolan TYPE AND SCREENon 12-11-2022 TYPE AND SCREEN Negative Normal [facility] Comment on above: Performed By: #### C BC #### [facility] [address] [address] [address] Rashmi Nolan XR CHEST 1 Von [...] STEPHANIE LIU Date: 2022-12-11 21:04 Normal [facility] Inpatient Patient Summaryon 12-10-2022 [place] [address] Patient Discharge Instructions Name: RY LERNER : 1935 Patient Address: [address] [place] [address] Primary Care Provider: Name: John Nieves MD After you are discharged if you find you have any questions, please, call [phone] ext [phone] to speak to a nurse. 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 If you or anyone you know is experiencing suicidal thoughts, mental health, alcohol and/or drug addiction problems; contact the [facility] 18/02 Crisis Hotline -Text 4HYBX to 917758. If you received any narcotics, sedation, or [...] business decisions or sign any legal documents [facility] would like to thank you for allowing us to assist you with your healthcare needs. The following includes patient education materials and information regarding your injury/illness. RY LERNER has been given the following list of follow-up instructions, prescriptions, and patient education materials: Follow-up Instructions With: Address: When: Ward Martinez [address] [place] [address], [address] [place] [address] Business (1) 12/18/2022 1:30 PM Medications During [...] 3. DO NOT lift heavy objects or back roller forcefully with your hand 4. Change your [...] or concerns, please call the office at [phone] 7. Follow up as scheduled Viruses or [...] Control and Prevention (more content not included)... [facility] Preoperative Record [facility] Pre-Op Record Summary Primary Physician: Ward Martinez DO Finalized Date/Time: 12/10/22 15:29:41 Pt. Name: RY LERNER /Sex: 1935 MALE Med Rec #: [id number] Physician: Ward Martinez DO Financial #: [id number] Pt. Type: D Room/Bed: / Admit/Disch: 12/10/22 [...] By: Maile Palmer RN 12/10/22 15:29 Normal [facility] Patient Handouton 12-10-[address] 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 Keep your hand elevated above your elbow for the first 24 hours after surgery 2. Wiggle your fingers frequently while awake 3. DO NOT lift heavy objects or back roller forcefully with your hand 4. Change your [...] or concerns, please call the office at [phone] 7. Follow up as scheduled Normal [facility] MAGNESIUMon 11-06-2022 Magnesium [Mass/Vol] 2.2 mg/dL Normal 1.8-2.4 [facility] Comment on above: Performed By: #### B MP, MG #### [facility] [address] [address] [address] Rashmi Nolan PROF CHEM 8 (BAS METB)on Anion gap [Moles/Vol] 15.0 mmol/L Normal [facility] Comment on above: Performed By: #### B MP, MG #### [facility] [address] [address] [address] Rashmi Nolan Calcium [Mass/Vol] 10.0 mg/dL Normal 8.5-10.1 [facility] Comment on above: Performed By: #### B MP, MG #### [facility] [address] [address] [address] Rashmi Nolan Chloride [Moles/Vol] 108 mmol/L Critically high 98-107 [facility] Comment on above: Performed By: #### B MP, MG #### [facility] [address] [address] [address] Rashmi Nolan CO2 [Moles/Vol] 25.4 mmol/L Normal 21.0-32.0 [facility] Comment on above: Performed By: #### B MP, MG #### [facility] [address] [address] [address] Rashmi Nolan Creatinine [Mass/Vol] 1.98 mg/dL Critically high 0.70-1.30 [facility] Comment on above: Performed By: #### B MP, MG #### [facility] [address] [address] [address] Rashmi Nolan EGFR-AF CHINESE 39 mL/min/1.73m2 Critically low >=60 [facility] Comment on above: Performed By: #### B MP, MG #### [facility] [address] [address] [address] Rashmi Nolan EGFR-NON AF CHINESE 32 mL/min/1.73m2 Critically low >=60 [facility] Comment on above: Performed By: #### B MP, MG #### [facility] [address] [place] [address] Dr. Rashmi Nolan Glucose [Mass/Vol] 99 mg/dL Normal 74-106 [facility] Comment on above: Performed By: #### B MP, MG #### [facility] [address] [place] [address] Dr. Rashmi Nolan Potassium [Moles/Vol] 5.4 mmol/L Critically high 3.5-5.1 [facility] Comment on above: Performed By: #### B MP, MG #### [facility] [address] [place] [address] Dr. Rashmi Nolan Sodium [Moles/Vol] 143 mmol/L Normal 136-145 [facility] Comment on above: Performed By: #### B MP, MG #### [facility] [address] [place] [address] Dr. Rashmi Nolan Urea nitrogen [Mass/Vol] 52.0 mg/dL Critically high 7.0-18.0 [facility] Comment on above: Performed By: #### B MP, MG #### [facility] [address] [place] [address] Dr. Rashmi Nolan Urea nitrogen/Creatinine [Mass ratio] 26.3 mg/mg Normal [facility] Comment on above: Performed By: #### B MP, MG #### [facility] [address] [place] [address] Dr. Rashmi Nolan VIT B12 AND FOLATEon 023 Cobalamin (Vitamin B12) [Mass/Vol] 514.0 pg/mL Normal 193.0-986.0 [facility] Comment on above: Performed By: #### B MP #### [facility] [address] [place] [address] Dr. Rashmi Nolan FOLATE 10.00 ng/mL Normal 8.60-58.90 [facility] Comment on above: Performed By: #### B MP #### [facility] [address] [place] [address] Dr. Rashmi Nolan CBC AUTO DIFFon 08-16-2022 BASO # 0.0 103/ul Normal 0.0-0.1 [facility] Comment on above: Performed By: #### B MP #### [facility] [address] [place] [address] Dr. Rashmi Nolan Basophils/100 WBC (Bld) 0.8 % Normal 0.2-2.0 [facility] Comment on above: Performed By: #### B MP #### [facility] [address] [place] [address] Dr. Rashmi Nolan EO # 0.3 103/ul Normal 0.0-0.7 [facility] Comment on above: Performed By: #### B MP #### [facility] [address] [place] [address] Dr. Rashmi Nolan Eosinophils/100 WBC (Bld) 7.8 % Critically high 0.9-7.0 [facility] Comment on above: Performed By: #### B MP #### [facility] [address] [place] [address] Dr. Rashmi Nolan Erythrocyte distribution width (RBC) [Ratio] 13.2 % Normal 11.0-15.0 [facility] Comment on above: Performed By: #### B MP #### [facility] [address] [place] [address] Dr. Rashmi Nolan Hematocrit (Bld) [Volume fraction] 33.2 % Critically low 42.0-54.0 [facility] Comment on above: Performed By: #### B MP #### [facility] [address] [place] [address] Dr. Rashmi Nolan Hemoglobin (Bld) [Mass/Vol] 10.8 g/dL Critically low 14.0-18.0 [facility] Comment on above: Performed By: #### B MP #### [facility] [address] [place] [address] Dr. Rashmi Nolan IG # 0.01 10e3/ul Normal 0.00-0.03 [facility] Comment on above: Performed By: #### B MP #### [facility] [address] [place] [address] Dr. Rashmi Nolan IG % 0.3 % Normal 0.0-0.5 [facility] Comment on above: Performed By: #### B MP #### [facility] [address] [place] [address] Dr. Rashmi Nolan LYMPH # 1.0 103/ul Critically low 1.2-3.[address] [facility] Comment on above: Performed By: #### B MP #### [facility] [address] [place] [address] Dr. Rashmi Nolan Lymphocytes/100 WBC (Bld) 24.7 % Normal 20.5-60.0 [facility] Comment on above: Performed By: #### B MP #### [facility] [address] [place] [address] Dr. Rashmi Nolan MANUAL DIFF REQ NO Normal [facility] Comment on above: Performed By: #### B MP #### [facility] [address] [place] [address] Dr. Rashmi Nolan MCH (RBC) [Entitic mass] 33.0 pg Normal 25.9-34.0 [facility] Comment on above: Performed By: #### B MP #### [facility] [address] [place] [address] Dr. Rashmi Nolan MCHC (RBC) [Mass/Vol] 32.5 g/dL Normal 29.9-35.2 [facility] Comment on above: Performed By: #### B MP #### [facility] [address] [place] [address] Dr. Rashmi Nolan MCV (RBC) [Entitic vol] 101.5 fL Critically high 80.0-94.0 [facility] Comment on above: Performed By: #### B MP #### [facility] [address] [place] [address] Dr. Rashmi Nolan MONO # 0.4 103/ul Normal 0.3-0.8 [facility] Comment on above: Performed By: #### B MP #### [facility] [address] [place] [address] Dr. Rashmi Nolan Monocytes/100 WBC (Bld) 10.7 % Normal 1.7-12.0 [facility] Comment on above: Performed By: #### B MP #### [facility] [address] [place] [address] Dr. Rashmi Nolan NEUT # 2.1 103/ul Normal 1.4-6.5 [facility] Comment on above: Performed By: #### B MP #### [facility] [address] [address] [address] Rashmi Nolan Neutrophils/100 WBC (Bld) 55.7 % Normal 43.0-75.0 [facility] Comment on above: Performed By: #### B MP #### [facility] [address] [place] [address] Dr. Rashmi Nolan Platelet mean volume (Bld) [Entitic vol] 10.5 fL Normal 9.5-13.5 [facility] Comment on above: Performed By: #### B MP #### [facility] [address] [place] [address] Dr. Rashmi Nolan PLT 160 103/ul Normal 150-450 [facility] Comment on above: Performed By: #### B MP #### [facility] [address] [place] [address] Dr. Rashmi Nolan RBC 3.27 106/ul Critically low 4.70-6.10 [facility] Comment on above: Performed By: #### B MP #### [facility] [address] [place] [address] Dr. Rashmi Nolan WBC 3.8 103/ul Critically low 4.0-11.[address] [facility] Comment on above: Performed By: #### B MP #### [facility] [address] [place] [address] Dr. Rashmi Nolan LIPID PROFILEon 08-16-2022 CHOL-HDL RATIO NORM SEE BELOW Normal [facility] Comment on above: Result Comment: 3.3 - 4.4 LOW RISK 4.4 - 7.1 AVERAGE RISK 7.1 - 11.0 MODERATE RISK >11.0 HIGH RISK Performed By: #### B MP #### [facility] [address] [address] [address] Rashmi Nolan Cholesterol [Mass/Vol] 166 mg/dL Normal <=200 [facility] Comment on above: Performed By: #### B MP #### [facility] [address] [address] [address] Rashmi Nolan Cholesterol in HDL [Mass/Vol] 42 mg/dL Normal 40-60 [facility] Comment on above: Performed By: #### B MP #### [facility] [address] [address] [address] Rashmi Nolan Cholesterol in LDL [Mass/Vol] 110.4 mg/dL Normal [facility] Comment on above: Performed By: #### B MP #### [facility] [address] [address] [address] Rashmi Nolan Cholesterol.total/Cho lesterol in HDL [Mass ratio] 4.0 {ratio} Normal [facility] Comment on above: Performed By: #### B MP #### [facility] [address] [address] [address] Rashmi Nolan HDL NORMAL > or = 60 mg/dl - LO W CARDIOVASCULAR RISK <40 mg/dl - HIGH CARDIOVASCULAR RISK Normal [facility] Comment on above: Performed By: #### B MP #### [facility] [address] [address] [address] Rashmi Nolan LDL CALC NORMAL SEE BELOW Normal [facility] Comment on above: Result Comment: <100 mg/dl OPTIMAL 100 - 129 mg/dl NEAR OR ABOVE OPTIMAL 130 - 159 mg/dl BORDERLINE HIGH 160 - 189 mg/dl HIGH >190 mg/dl VERY HIGH Performed By: #### B MP #### [facility] [address] [address] [address] Rashmi Nolan Triglyceride [Mass/Vol] 68 mg/dL Normal <=150 [facility] Comment on above: Performed By: #### B MP #### [facility] [address] [address] [address] Rashmi Nolan VLDL CALC 13.6 mg/dL Normal [facility] Comment on above: Performed By: #### B MP #### [facility] [address] [address] [address] Rashmi Nolan PROF 14(COMP METB)on 023 Albumin [Mass/Vol] 3.9 g/dL Normal 3.4-5.0 [facility] Comment on above: Performed By: #### B MP #### [facility] [address] [address] [address] Rashmi Nolan Albumin/Globulin [Mass ratio] 1.1 {ratio} Normal [facility] Comment on above: Performed By: #### B MP #### [facility] [address] [address] [address] Rashmi Nolan ALP [Catalytic activity/Vol] 190 U/L Critically high 46-116 [facility] Comment on above: Performed By: #### B MP #### [facility] [address] [place] [address] Dr. Rashmi Nolan ALT [Catalytic activity/Vol] 15 U/L Critically low 16-63 [facility] Comment on above: Performed By: #### B MP #### [facility] [address] [address] [address] Rashmi Nolan Anion gap [Moles/Vol] 15.2 mmol/L Normal [facility] Comment on above: Performed By: #### B MP #### [facility] [address] [place] [address] Dr. Rashmi Nolan AST [Catalytic activity/Vol] 17 U/L Normal 15-37 [facility] Comment on above: Performed By: #### B MP #### [facility] [address] [place] [address] Dr. Rashmi Nolan Bilirubin [Mass/Vol] 0.4 mg/dL Normal 0.2-1.0 [facility] Comment on above: Performed By: #### B MP #### [facility] [address] [place] [address] Dr. Rashmi Nolan Calcium [Mass/Vol] 10.0 mg/dL Normal 8.5-10.1 [facility] Comment on above: Performed By: #### B MP #### [facility] [address] [address] [address] Rashmi Nolan Chloride [Moles/Vol] 108 mmol/L Critically high 98-107 [facility] Comment on above: Performed By: #### B MP #### [facility] [address] [address] [address] Rashmi Nolan CO2 [Moles/Vol] 25.8 mmol/L Normal 21.0-32.0 [facility] Comment on above: Performed By: #### B MP #### [facility] [address] [address] [address] Rashmi Nolan Creatinine [Mass/Vol] 1.78 mg/dL Critically high 0.70-1.30 [facility] Comment on above: Performed By: #### B MP #### [facility] [address] [address] [address] Rashmi Nolan EGFR-AF CHINESE 44 mL/min/1.73m2 Critically low >=60 [facility] Comment on above: Performed By: #### B MP #### [facility] [address] [address] [address] Rashmi Nolan EGFR-NON AF CHINESE 36 mL/min/1.73m2 Critically low >=60 [facility] Comment on above: Performed By: #### B MP #### [facility] [address] [address] [address] Rashmi Nolan Globulin (S) [Mass/Vol] 3.7 g/dL Normal [facility] Comment on above: Performed By: #### B MP #### [facility] [address] [address] [address] Rashmi Nolan Glucose [Mass/Vol] 100 mg/dL Normal 74-106 [facility] Comment on above: Performed By: #### B MP #### [facility] [address] [address] [address] Rashmi Nolan Potassium [Moles/Vol] 5.0 mmol/L Normal 3.5-5.1 [facility] Comment on above: Performed By: #### B MP #### [facility] [address] [address] [address] Rashmi Nolan Protein [Mass/Vol] 7.6 g/dL Normal 6.4-8.2 [facility] Comment on above: Performed By: #### B MP #### [facility] [address] [address] [address] Rashmi Nolan Sodium [Moles/Vol] 144 mmol/L Normal 136-145 [facility] Comment on above: Performed By: #### B MP #### [facility] [address] [address] [address] Rashmi Nolan Urea nitrogen [Mass/Vol] 52.0 mg/dL Critically high 7.0-18.0 [facility] Comment on above: Performed By: #### B MP #### [facility] [address] [address] [address] Rashmi Nolan Urea nitrogen/Creatinine [Mass ratio] 29.2 mg/mg Normal [facility] Comment on above: Performed By: #### B MP #### [facility] [address] [address] [address] Rashmi Nolan PROF CHEM 8 (BAS METB)on Anion gap [Moles/Vol] 13.3 mmol/L Normal [facility] Comment on above: Performed By: #### C BC #### [facility] [address] [place] [address] Dr. Rashmi Nolan Calcium [Mass/Vol] 10.1 mg/dL Normal 8.5-10.1 [facility] Comment on above: Performed By: #### C BC #### [facility] [address] [address] [address] Rashmi Nolan Chloride [Moles/Vol] 104 mmol/L Normal 98-107 [facility] Comment on above: Performed By: #### C BC #### [facility] [address] [place] [address] Dr. Rashmi Nolan CO2 [Moles/Vol] 28.7 mmol/L Normal 21.0-32.0 [facility] Comment on above: Performed By: #### C BC #### [facility] [address] [address] [address] Rashmi Nolan Creatinine [Mass/Vol] 1.87 mg/dL Critically high 0.70-1.30 [facility] Comment on above: Performed By: #### C BC #### [facility] [address] [address] [address] Rashmi Nolan EGFR-AF CHINESE 42 mL/min/1.73m2 Critically low >=60 [facility] Comment on above: Performed By: #### C BC #### [facility] [address] [address] [address] Rashmi Nolan EGFR-NON AF CHINESE 34 mL/min/1.73m2 Critically low >=60 [facility] Comment on above: Performed By: #### C BC #### [facility] [address] [address] [address] Rashmi Nolan Glucose [Mass/Vol] 101 mg/dL Normal 74-106 [facility] Comment on above: Performed By: #### C BC #### [facility] [address] [address] [address] Rashmi Nolan Potassium [Moles/Vol] 5.0 mmol/L Normal 3.5-5.1 [facility] Comment on above: Performed By: #### C BC #### [facility] [address] [address] [address] Rashmi Nolan Sodium [Moles/Vol] 141 mmol/L Normal 136-145 [facility] Comment on above: Performed By: #### C BC #### [facility] [address] [address] [address] Rashmi Nolan Urea nitrogen [Mass/Vol] 41.0 mg/dL Critically high 7.0-18.0 [facility] Comment on above: Performed By: #### C BC #### [facility] [address] [address] [address] Rashmi Nolan Urea nitrogen/Creatinine [Mass ratio] 21.9 mg/mg Normal [facility] Comment on above: Performed By: #### C BC #### [facility] [address] [place] [address] Dr. Rashmi Nolan COVID/FLU RT-PCRon 2 SARS-CoV-2 (COVID-19) RNA ETELVINA+probe Ql (Unsp spec) Positive [facility] [employer] Other COVID/FLU RT-PCR Negative [facility] [employer] Other BNPon 02-15-2022 Natriuretic peptide B (Bld) [Mass/Vol] 1653.0 pg/mL Normal <=1,800.0 [facility] Comment on above: Performed By: #### C BC #### [facility] [address] [place] [address] Dr. Rashmi Nolan PROF CHEM 8 (BAS METB)on Anion gap [Moles/Vol] 15.8 mmol/L Normal [facility] Comment on above: Performed By: #### C BC #### [facility] [address] [place] [address] Dr. Rashmi Nolan Calcium [Mass/Vol] 9.6 mg/dL Normal 8.5-10.1 [facility] Comment on above: Performed By: #### C BC #### [facility] [address] [place] [address] Dr. Rashmi Nolan Chloride [Moles/Vol] 108 mmol/L Critically high 98-107 [facility] Comment on above: Performed By: #### C BC #### [facility] [address] [place] [address] Dr. Rashmi Nolan CO2 [Moles/Vol] 24.2 mmol/L Normal 21.0-32.0 [facility] Comment on above: Performed By: #### C BC #### [facility] [address] [place] [address] Dr. Rashmi Nolan Creatinine [Mass/Vol] 1.87 mg/dL Critically high 0.70-1.30 [facility] Comment on above: Performed By: #### C BC #### [facility] [address] [place] [address] Dr. Rashmi Nolan EGFR-AF CHINESE 42 mL/min/1.73m2 Critically low >=60 [facility] Comment on above: Performed By: #### C BC #### [facility] [address] [place] [address] Dr. Rashmi Nolan EGFR-NON AF CHINESE 34 mL/min/1.73m2 Critically low >=60 [facility] Comment on above: Performed By: #### C BC #### [facility] [address] [place] [address] Dr. Rashmi Nolan Glucose [Mass/Vol] 107 mg/dL Critically high 74-106 [facility] Comment on above: Performed By: #### C BC #### [facility] [address] [place] [address] Dr. Rashmi Nolan Potassium [Moles/Vol] 5.0 mmol/L Normal 3.5-5.1 [facility] Comment on above: Performed By: #### C BC #### [facility] [address] [place] [address] Dr. Rashmi Nolan Sodium [Moles/Vol] 143 mmol/L Normal 136-145 [facility] Comment on above: Performed By: #### C BC #### [facility] [address] [place] [address] Dr. Rashmi Nolan Urea nitrogen [Mass/Vol] 28.0 mg/dL Critically high 7.0-18.0 [facility] Comment on above: Performed By: #### C BC #### [facility] [address] [place] [address] Dr. Rashmi Nolan Urea nitrogen/Creatinine [Mass ratio] 15.0 mg/mg Normal [facility] Comment on above: Performed By: #### C BC #### [facility] [address] [place] [address] Dr. Rashmi Nolan APTTon 10-13-2021 aPTT Coag (Bld) [Time] 36.7 s High 25.0-35.0 [facility] Comment on above: Result Comment: ALL RESULTS [...] PURPOSE. Performed By: #### 5 0103 #### [facility] [address] [place] [address], [facility] BASIC METABOLIC PANELon 09-26 Calcium [Mass/Vol] 9.7 mg/dL Normal 8.6-10.3 [facility] Comment on above: Performed By: #### 0 0071, 93887, 05099, 43256 #### [facility] [address] [place] [address], [facility] Chloride [Moles/Vol] 108 mmol/L High 98-107 [facility] Comment on above: Performed By: #### 0 0071, 13711, 85780, 65359 #### [facility] [address] [place] [address], [facility] CO2 [Moles/Vol] 23 mmol/L Normal 21-31 [facility] Comment on above: Performed By: #### 0 0071, 54504, 84975, 85176 #### [facility] [address] [place] [address], [facility] Creatinine [Mass/Vol] 1.98 mg/dL High 0.70-1.30 [facility] Comment on above: Performed By: #### 0 0071, 56287, 78258, 83821 #### [facility] [address] eGFR- 39 ml/min/1.73sq m Abnormal >[address] [facility] Comment on above: Result Comment: Calc ulation may not be valid for patients over 70 years Performed By: #### 0 0071, 15210, 31019, 29548 #### [facility] [address] eGFR- non- 32 ml/min/1.73sq m Abnormal >[address] [facility] Comment on above: Result Comment: Calc ulation may not be valid for patients over 70 years Performed By: #### 0 0071, 63936, 51695, 86778 #### [facility] [address] [place] [address], [facility] Glucose [Mass/Vol] 88 mg/dL Normal 70-100 [facility] Comment on above: Performed By: #### 0 0071, 19387, 41882, 76915 #### [facility] [address] [place] [address], [place] Potassium [Moles/Vol] 4.8 mmol/L Normal 3.5-5.1 [facility] Comment on above: Performed By: #### 0 0071, 30249, 89948, 48500 #### [facility] [address] [place] [address], [place] Sodium [Moles/Vol] 138 mmol/L Normal 136-145 [facility] Comment on above: Performed By: #### 0 0071, 90597, 66964, 15088 #### [facility] [address] [place] [address], [facility] Urea nitrogen [Mass/Vol] 46 mg/dL High 7-25 [facility] Comment on above: Performed By: #### 0 0071, 32811, 53374, 26471 #### [facility] [address] [place] [address], [facility] BNP EDon 10-13-2021 Natriuretic peptide B (Bld) [Mass/Vol] 428 pg/mL High 0-100 [facility] Comment on above: Result Comment: Give n the appropriate clinical setting a BNP result of >100 pg/mL indicates congestive heart failure. Performed By: #### 3 0935 #### [facility] [address] [place] [address], [facility] CBC W/DIFFon 10-13-2021 ABS IMM GRANS 0.0 10*3/uL Normal 0.0-0.2 The [facility] Comment on above: Performed By: #### 5 0103 #### [facility] [address] [address], [facility] ABS NEUTROPHILS 2.8 10*3/uL Normal 1.6-7.6 [facility] Comment on above: Performed By: #### 5 0103 #### [facility] [address] [place] [address], [facility] Basophils (Bld) [#/Vol] 0.0 10*3/uL Normal 0.0-0.2 [facility] Comment on above: Performed By: #### 5 0103 #### [facility] [address] [place] [address], [facility] Basophils/100 WBC (Bld) 0.5 % Normal 0.0-1.0 [facility] Comment on above: Performed By: #### 5 0103 #### [facility] [address] [place] [address], [facility] Eosinophils (Bld) [#/Vol] 0.3 10*3/uL Normal 0.0-0.5 [facility] Comment on above: Performed By: #### 5 0103 #### [facility] [address] [place] [address], [facility] Eosinophils/100 WBC (Bld) 7.4 % High 0.0-6.0 [facility] Comment on above: Performed By: #### 5 0103 #### [facility] [address] [place] [address], [facility] Erythrocyte distribution width (RBC) [Ratio] 13.9 % Normal 11.5-15.0 [facility] Comment on above: Performed By: #### 5 3 #### [facility] [address] [place] [address], [facility] Hematocrit (Bld) [Volume fraction] 33.5 % Low 39.0-50.0 [facility] Comment on above: Performed By: #### 5 0103 #### [facility] [address] [facility] [place] [place] [address], [facility] Hemoglobin (Bld) [Mass/Vol] 11.4 g/dL Low 13.0-17.0 [facility] Comment on above: Performed By: #### 5 0103 #### [facility] [address] [facility] [place] [address], [facility] IMMATURE GRANS 0.2 % Normal 0.0-1.0 The [facility] Comment on above: Performed By: #### 5 0103 #### [facility] [address] [facility]. [address] Lymphocytes (Bld) [#/Vol] 0.9 10*3/uL Low 1.2-4.0 [facility] Comment on above: Performed By: #### 5 0103 #### [facility] [address] [facility] [place] [address], [facility] Lymphocytes/100 WBC (Bld) 20.1 % Normal 20.0-45.0 [facility] Comment on above: Performed By: #### 5 0103 #### [facility] [address] [facility]. [address] MCH (RBC) [Entitic mass] 33.1 pg High 27.0-33.0 [facility] Comment on above: Performed By: #### 5 0103 #### [facility] [address] [facility] [place] [address], [facility] MCHC (RBC) [Mass/Vol] 34.0 g/dL Normal 32.0-35.0 [facility] Comment on above: Performed By: #### 5 0103 #### [facility] [address] [facility] [place] [address] [place] MCV (RBC) [Entitic vol] 97.4 fL Normal 82.0-98.0 [facility] Comment on above: Performed By: #### 5 0103 #### [facility] [address] [place] [address], [facility] Monocytes (Bld) [#/Vol] 0.4 10*3/uL Normal 0.1-1.0 [facility] Comment on above: Performed By: #### 5 0103 #### [facility] [address] [place] [address], [facility] MONOS 8.4 % Normal 5.0-12.0 [facility] Comment on above: Performed By: #### 5 102 #### [facility] [address] [place] [address], [facility] Neutrophils/100 WBC (Bld) 63.4 % Normal 40.0-72.0 [facility] Comment on above: Performed By: #### 102 #### [facility] [address] [place] [id number], [facility] Nucleated RBC/100 WBC (Bld) [Ratio] 0 % Normal 0-0 [facility] Comment on above: Performed By: #### 5 102 #### [facility] [address] [place] [address], [place] PLAT CNT 116 10*3/uL Low 150-[address] [facility] Comment on above: Performed By: #### 5 102 #### [facility] [address] [place] [address], [facility] RBC (Bld) [#/Vol] 3.44 10*6/uL Low 4.20-5.70 [facility] Comment on above: Performed By: #### 102 #### [facility] [address] [place] [address], [place] WBC (Bld) [#/Vol] 4.43 10*3/uL Normal 4.00-10.60 [facility] Comment on above: Performed By: #### 5 0103 #### [facility] [address] [place] [address], [facility] Cardiovascular Lab Reporton 10-13-2021 Cardiovascular Lab Report [facility]: [id number] Physician: Royal Gandara MD Department of Service Date: 10/13/2021 Medicine Birthdate: 1935 Division of Room #: [facility] Cardiology Adult Cardiovascular Services [facility] [address] [place], [place] [address] Cardiovascular Laboratory Report PACEMAKER IMPLANT PROCEDURE NOTE DATE OF PROCEDURE: 10/13/2021 PERFORMING PHYSICIAN: Dr. Royal Gandara CONSENT: Patient LOCATION: EP Lab PROCEDURE PERFORMED: 1. Implantation of pacemaker ([employer]) 2. Ultrasound guided venous access INDICATIONS: [...] previously recommended a pacemaker, however, presented to [facility] with a ventricular rate in the 30s. He was subsequently transferred over to [facility] ED for a pacemaker placement. [...] using modified seldinger technique using a 5 Bhutanese micro-puncture needle on one occasion and 0.35 wire was placed. Local infiltration of 1% Lidocaine was performed, and an incision was created in the left upper chest. Dissection was then performed using cautery down to the fascial plane above the muscle. A small pocket was created for the device. 6 Bhutanese Safesheaths were placed over the wire. An active fixation [employer] pacing lead was then delivered through the 6Fsheath to the right ventricle. After confirmation of lead position on orthogonal views (HANSEN and MALAWIAN) to confirm septal position, the screw was [...] immediate procedural complications were noted. Device info: [employer] Accolade MRI EL Model# L331 Serial# [id number] RV lead: Model# INGEVITY [id number] (59cms) Serial# [id number] Sensin.4mV Threshold: 0.6V@0.4ms Impedance: 598 Ohms POST [...] Gandara MD Date Trans: 10/13/2021 10:46 Alcides/oscar DN_[id number] cc: Jason Silva M.D. [address] [place] [id number] Normal [facility] FRESH FROZEN PLASMA 1 UNITon 10-13-2021 PRODUCT CODE 1 E2701 Normal The [facility] Comment on above: Order Comment: INR: 2.88 ,PTT: 36.7 at the time of order ;Indication: Other pacemaker placement Performed By: #### 8 7001 #### [facility] [address] [place] [address], [facility] PRODUCT STATUS 1 RE Normal [facility] Comment on above: Order Comment: INR: 2.88 ,PTT: 36.7 at the time of order ;Indication: Other pacemaker placement Result Comment: Resu lt changed by IF on 10/19/2021 01:00. The previous value was XM. Performed By: #### 8 7001 #### [facility] [address] [place] [address], [facility] UNIT ABO 1 O Normal [facility] Comment on above: Order Comment: INR: 2.88 ,PTT: 36.7 at the time of order ;Indication: Other pacemaker placement Performed By: #### 8 7001 #### [facility] [address] [place] [address], [facility] UNIT ID 1 [id number] Normal [facility] Comment on above: Order Comment: INR: 2.88 ,PTT: 36.7 at the time of order ;Indication: Other pacemaker placement Performed By: #### 8 7001 #### [facility] [address] [place] [address], [facility] UNIT RH 1 Negative Normal The [facility] Comment on above: Order Comment: INR: 2.88 ,PTT: 36.7 at the time of order ;Indication: Other pacemaker placement Performed By: #### 8 7001 #### [facility] [address] [place] [address], [facility] LIVER BATTERYon 10-13-2021 Albumin [Mass/Vol] 4.0 g/dL Normal 3.5-5.7 [facility] Comment on above: Performed By: #### 0 0071, 20173, 49045, 21724 #### [facility] [address] [place] [address], [facility] ALKALINE PHOSPH 137 IU/L High 34-104 [facility] Comment on above: Performed By: #### 0 0071, 20587, 79563, 76857 #### [facility] [address] [place] [address], [facility] ALT [Catalytic activity/Vol] 29 U/L Normal 7-52 The [facility] Comment on above: Performed By: #### 0 0071, 86467, 07078, 59008 #### [facility] [address] [place] [address], [facility] AST [Catalytic activity/Vol] 22 U/L Normal 13-39 The [facility] Comment on above: Performed By: #### 0 0071, 23216, 69577, 93285 #### [facility] [address] [place] [address], [facility] Bilirubin [Mass/Vol] 0.7 mg/dL Normal 0.3-1.0 The [facility] Comment on above: Performed By: #### 0 0071, 26406, 32142, 09417 #### [facility] [address] [place] [address], [facility] Bilirubin.direct [Mass/Vol] 0.1 mg/dL Normal 0.0-0.2 The [facility] Comment on above: Performed By: #### 0 0071, 75485, 03843, 29477 #### [facility] [address] [place] [id number], [facility] Protein [Mass/Vol] 6.3 g/dL Normal 6.0-8.3 The [facility] Comment on above: Performed By: #### 0 0071, 43840, 20199, 33946 #### [facility] [address] [place] [id number], [facility] MAGNESIUM BLOODon 10-13-2021 Magnesium [Mass/Vol] 2.0 mg/dL Normal 1.9-2.7 The [facility] Comment on above: Performed By: #### 0 0071, 82763, 92511, 86144 #### [facility] [address] [place] [address], [facility] POC SARS COV2 ANTIGEN NEGATI VEon 10-13-2021 POC SARS COV2 ANTIGEN NEG Negative Normal NEGATIVE The [facility] Comment on above: Result Comment: Nega tive [...] antigen from SARS-CoV-2 in direct nasopharyngeal swab (WELT BEATER) specimens from individuals who are suspected of [...] Accreditation. Performed By: #### 3 2043 #### [place] [address], [facility] PORTABLE CHEST 1 VIEWon 09-26 PORTABLE CHEST 1 VIEW [facility] Department of Radiology [address] [place] [id number] Patient Name: RY LERNER : 1935 Sex: M Age: Race: White Pt. Location: [facility] Patient Status: E Ordered Date: 10/13/2021 [...] report. Electronically signed: Mark Aguilar. Transcribed by: [email or web address], User Resident: HUMBLE HERNANDEZ Electronically Signed by: MARK AGUILAR @ 10/13/2021 05:55 AM I personally read this/these film(s) with this resident Normal The [facility] Comment on above: Order Comment: evalu ate for Infiltrates PROTHROMBIN TIMEon INR Coag (PPP) [Relative time] 2.88 {INR} High 0.91-1.16 The [facility] Comment on above: Result Comment: ACCC P [...] CHEST 1995;108:231S-246S. Performed By: #### 5 6101, 27351 #### [facility] [address] [place] [address], [facility] PT Coag (PPP) [Time] 30.0 s High 12.3-14.8 The [facility] Comment on above: Result Comment: ALL RESULTS MUST BE INTERPRETED WITH RESPECT TO BLOOD DRAWING ARTIFACT OR DILUTION ERROR OF ANTICOAGULANT AT THE TIME OF SAMPLING. Performed By: #### 5 6101, 75729 #### [facility] [address] [place] [address], [facility] TROPONIN-Ion 10-13-2021 Troponin I.cardiac [Mass/Vol] 0.05 ng/mL High 0.00-0.04 [facility] Comment on above: Result Comment: REFE JOSE RAMON RANGES: 0.00 - 0.04 ng/ml NORMAL 0.05 - 0.50 ng/ml INDETERMINATE > 0.50 ng/ml CONSISTENT WITH AN M.I. Performed By: #### 0 0071, 46822, 70081, 64103 #### [facility] [address] TYPE AND SCREENon 10-13-2021 ABO INTERPRETATION O [facility] Comment on above: Performed By: #### 5 0103 #### [facility] [address] [place] [address], [facility] RH INTERPRETATION Positive Normal The [facility] Comment on above: Performed By: #### 5 0103 #### [facility] [address] [place], [place] [address] [place] [address] Vital Signs Date Time Vital Sign Value Performing Clinician Facility 10-24-2023 15:49-0400 Heart rate 65 /min Christelle Timmis [facility] 10-24-2023 15:49-0400 SaO2% (BldA) [Mass fraction] 99 % Christelle Timmis [facility] 10-24-2023 15:48-0400 Diastolic blood pressure 73 mm[Hg] Christelle Timmis [facility] 10-24-2023 15:48-0400 Mean blood pressure 98 mm[Hg] Christelle Timmis [facility] 10-24-2023 15:48-0400 Systolic blood pressure 148 mm[Hg] Christelle Timmis [facility] 10-24-2023 15:48-0400 Respiratory rate 16 /min Christelle Timmis [facility] 10-24-2023 14:52-0400 Heart rate 61 /min Christelle Timmis [facility] 10-24-2023 14:52-0400 SaO2% (BldA) [Mass fraction] 100 % Christelle Timmis [facility] 10-24-2023 14:51-0400 Diastolic blood pressure 72 mm[Hg] Christelle Timmis [facility] 10-24-2023 14:51-0400 Mean blood pressure 101 mm[Hg] Christelle Timmis [facility] 10-24-2023 14:51-0400 Systolic blood pressure 160 mm[Hg] Christelle Timmis [facility] 10-24-2023 14:42-0400 Body temperature 97.7 [degF] Christelle Timmis [facility] 10-24-2023 14:42-0400 Diastolic blood pressure 60 mm[Hg] Christelle Timmis [facility] 10-24-2023 14:42-0400 Heart rate 60 /min Christelle Timmis [facility] 10-24-2023 14:42-0400 Mean blood pressure 83 mm[Hg] Christelle Timmis [facility] 10-24-2023 14:42-0400 Respiratory rate 15 /min Christelle Timmis [facility] 10-24-2023 14:42-0400 SaO2% (BldA) [Mass fraction] 99 % Christelle Timmis [facility] 10-24-2023 14:42-0400 Systolic blood pressure 129 mm[Hg] Christelle Timmis [facility] 10-24-2023 14:30-0400 Mean blood pressure 77 mm[Hg] Christelle Timmis [facility] 10-24-2023 14:30-0400 Respiratory rate 12 /min Christelle Timmis [facility] 10-24-2023 14:25-0400 Mean blood pressure 84 mm[Hg] Christelle Timmis [facility] 10-24-2023 14:25-0400 Respiratory rate 16 /min Christelle Timmis [facility] 10-24-2023 14:20-0400 FIO2 35 1 Christelle Timmis [facility] 10-24-2023 14:17-0400 Body temperature 97.7 [degF] Christelle Timmis [facility] 10-24-2023 14:15-0400 FIO2 100 1 Christelle Timmis [facility] 10-24-2023 14:10-0400 FIO2 100 1 Christelle Timmis [facility] 10-24-2023 14:10-0400 Respiratory rate 6 /min Christelle Timmis [facility] 10-24-2023 14:05-0400 Respiratory rate 10 /min Christelle Timmis [facility] 10-24-2023 12:46-0400 Blood Pressure Location Christelle Timmis [facility] 10-24-2023 12:46-0400 Mean blood pressure 105 mm[Hg] Christelle Timmis [facility] 10-24-2023 12:43-0400 Body temperature 97.88 [degF] Christelle Timmis [facility] 10-24-2023 12:41-0400 Blood Pressure Location Christelle Timmis [facility] 10-23-2023 13:49-0400 Body temperature 98.06 [degF] Christelle Timmis [facility] 10-23-2023 13:49-0400 Diastolic blood pressure 57 mm[Hg] Christelle Timmis [facility] 10-23-2023 13:49-0400 Heart rate 60 /min Christelle Timmis [facility] 10-23-2023 13:49-0400 Mean blood pressure 79 mm[Hg] Christelle Timmis [facility] 10-23-2023 13:49-0400 Respiratory rate 17 /min Christelle Timmis [facility] 10-23-2023 13:49-0400 SaO2% (BldA) [Mass fraction] 98 % Christelle Timmis [facility] 10-23-2023 13:49-0400 Systolic blood pressure 122 mm[Hg] Christelle Timmis [facility] 10-23-2023 13:47-0400 Diastolic blood pressure 62 mm[Hg] Christelle Timmis [facility] 10-23-2023 13:47-0400 Systolic blood pressure 107 mm[Hg] Christelle Timmis [facility] 09-30-2023 14:26-0500 Blood Pressure Location Mary Jane Garza [facility] 09-30-2023 14:26-0500 Body temperature 95.72 [degF] Mary Jane Garza [facility] 09-30-2023 14:26-0500 Diastolic blood pressure 57 mm[Hg] Mary Jane Garza [facility] 09-30-2023 14:26-0500 Heart rate 60 /min Mary Jane Garza [facility] 09-30-2023 14:26-0500 Respiratory rate 16 /min Mary Jane Garza [facility] 09-30-2023 14:26-0500 Systolic blood pressure 114 mm[Hg] Mary Jane Garza [facility] 06-02-2022 14:50-0400 Body height 182.88 cm Sonja Aden Other [employer] Other 06-02-2022 14:50-0400 Body mass index (BMI) [Ratio] 29.73 kg/m2 Sonja Aden Other [employer] Other 06-02-2022 14:50-0400 Body temperature 99.6 [degF] Sonja Aden Other [employer] Other 06-02-2022 14:50-0400 Body weight 99.43 kg Sonja Aden Other [employer] Other 06-02-2022 14:50-0400 Diastolic blood pressure 54 mm[Hg] Sonja Aden Other [employer] Other 06-02-2022 14:50-0400 Respiratory rate 18 /min Sonja Aden Other [employer] Other 06-02-2022 14:50-0400 SaO2% (BldA) [Mass fraction] 95 % Sonja Aden Other [employer] Other 06-02-2022 [id number] Systolic blood pressure 118 mm[Hg] Sonja Aden Other [employer] Other Encounters Encounter Date Encounter Type Care Provider Facility Start: 03-17-2024 End: 03-17-2024 ambulatory [facility] Start: 03-13-2024 End: 03-13-2024 ambulatory [facility] Start: 02-12-2024 End: 02-12-2024 ambulatory [facility] Start: 01-22-2024 [facility]: 01-22-[facility]24 Evaluation and management of inpatient [facility] Start: 01-21-2024 ambulatory [facility] Start: 01-21-2024 End: 01-22-2024 Evaluation and management of inpatient [facility] Start: 01-14-2024 End: 01-14-2024 [facility] Start: 01-03-2024 End: 01-03-2024 ambulatory [facility] Start: 12-04-2023 End: 12-04-2023 ambulatory [facility] Start: 12-03-2023 End: 12-03-2023 ambulatory Sheng L Brissa Facility:[facility] [place] [facility] Start: 10-30-2023 End: 10-30-2023 ambulatory Sheng L Brissa Facility:[facility] [place] [facility] Start: 10-30-2023 End: 10-30-2023 ambulatory [facility] Start: 10-24-2023 End: 10-24-2023 Admission to same day surgery center Christelle Salazar [facility] Start: 10-24-2023 End: 10-24-2023 ambulatory Christelle Sadlermis [facility] Start: 10-23-2023 End: 10-23-2023 ambulatory Christelle Sadlermis Facility[facility] Start: 10-23-2023 End: 10-23-2023 Patient encounter procedure Christelle Salazar [facility] Start: 10-23-2023 End: 10-23-2023 ambulatory CHRISTELLE MEYERS Not Available Start: 10-02-2023 End: 10-02-2023 ambulatory Sheng L Brissa Facility:[facility] [place] [facility] Start: 09-30-2023 End: 09-30-2023 ambulatory Mary Jane Garza Facility:[facility] Start: 09-30-2023 End: 09-30-2023 Patient encounter procedure Mary Jane Garza [facility] Start: 09-09-2023 End: 09-10-2023 ambulatory Petros Lee MD Facility: [facility] Start: 09-04-2023 ambulatory Sheng L Brissa Facility: [facility] Start: 09-03-2023 End: 09-03-2023 ambulatory Sheng L Brissa Facility:[facility] [place] [facility] Start: 08-29-2023 End: 08-29-2023 ambulatory ADDIE A FELTER Not Available Start: 08-29-2023 Bamboo flowsheet Addie A Fel ter [employer] Work Phone: [facility] Start: 08-29-2023 Bamboo flowsheet Addie A Fel ter [employer]LEASING [employer]IST[employer] Work Phone: [facility] Start: 08-29-2023 End: 08-29-2023 Office outpatient new 30 minutes Addie A Felter [employer] Work Phone: [facility] Comment on above: Other atopic dermati tis (Primary Dx); Seborrheic keratosis Start: 08-28-2023 End: 08-28-2023 ambulatory John Nieves Facility:[facility] [place] [facility] Start: 07-03-2023 End: 07-03-2023 ambulatory Sheng L Brsisa Facility:[facility] [place] [facility] Start: 07-02-2023 End: 07-02-2023 ambulatory ROYAL ODELLO [facility] Start: 05-15-2023 End: 05-15-2023 ambulatory CHARISSE GAY [facility] Start: 01-22-2023 End: 01-22-2023 Lab Drop off Sheng L Brissa [facility] Start: 12-31-2022 End: 12-31-2022 ambulatory [facility] Facility:[facility] Start: 12-25-2022 End: 12-26-[address] JASON SILVA . Facility: Start: 12-12-2022 End: 12-14-2022 Evaluation and management of inpatient DR JASON SILVA . Facility:[facility] Start: 12-11-2022 End: 12-11-2022 Lab Drop off Sheng L Brissa [facility] Start: 12-10-2022 End: 12-10-2022 ambulatory [facility] Facility:[facility] Start: 11-26-2022 End: 12-26-2022 ambulatory SHAIKH [...] 06-02-2022 End: 06-02-2022 ambulatory Sonja Aden Other [employer] Other Start: 06-02-2022 Office outpatient ne w [...] 10-13-2021 Emergency department patient visit PHYSICIAN UNKNOWN Facility:[facility] Procedures Date Procedure Procedure Detail [...] above: Performed By: #### B MP #### [facility] [address] [place] [address] [address] Rashmi Nolan Start: 10-13-2021 Antibody screen PHYSICI AN UNKNOWN Comment on above: Performed By: #### 5 0103 #### [facility] [address] [facility]. [address] Start: 09-26-2021 Cardiac pacemaker, d evice [...] DERM [address] [place] [address] Addie Huston, VAT OVERHA[employer]LEASING ASSISTANT [address] [place] [address] Arrived [facility] Comment on above: Arrived Immunizations Immunization Date Immunization Notes Care Provider Fa cility 08-02-2023 zoster vaccine recombinant Mary Jane Garza [facility] 07-03-2023 influenza virus vaccine, unspecified formulation Jimmied Mouchli [facility] 07-03-2023 pneumococcal 20-aurelio nt conjugate vaccine Mohamad Mouchli [facility] 05-02-2022 influenza virus vaccine, unspecified formulation Sheng Brissa [facility] 05-02-2022 Seasonal trivalent influenza vaccine, adjuvanted, preservative free Addie Huston [facility] Work Phone: [facility] 04-28-2021 SARS-CoV-2 (COVID-19 ) mRNA-1273 vaccine [facility] Momalcolmli [facility] 09-17-2020 SARS-CoV-2 (COVID-19 ) mRNA BNT-162b2 vax Sheng Brissa [facility] Comment on above: Result Comment: 2022: [id number] 08-27-2020 SARS-CoV-2 (COVID-19 ) mRNA BNT-162b2 vax Sheng Brissa [facility] Comment on above: Result Comment: 2022: [id number] 06-13-2020 influenza virus vaccine, unspecified formulation Sheng Brissa [facility] 06-01-2019 influenza virus vaccine, unspecified formulation Sheng Brissa [facility] 04-14-2018 influenza virus vaccine, unspecified formulation Sheng Brissa [facility] 04-22-2017 influenza virus vaccine, unspecified formulation Sheng Brissa [facility] 05-01-2016 influenza virus vaccine, unspecified formulation Sheng Brissa [facility] 06-02-2015 influenza virus vaccine, unspecified formulation Sheng Brsisa [facility] 05-31-2014 influenza virus vaccine, unspecified formulation Sheng Brissa [facility] 06-02-2013 influenza virus vaccine, unspecified formulation Sheng Brissa [facility] 05-29-2005 influenza, whole Sheng Brissa [facility] Payers Date Payer Category Payer Unknown [id number] 1999 Medicare [id number] 1959 Medicare [id number] 1935 Unknown [id number] 2.16.8 40.1.998149.3.579.2.647 1934 Unknown [id number] 2.16. 840.1.037686.3.579.2.732 1934 Unknown [id number] 2.16. 840.1.306526.3.579.2.732 1934 Unknown [id number] 2.16.8 40.1.542603.3.579.2.718 1934 Unknown [id number] 2.16.8 40.1.137741.3.579.2.718 1934 Unknown [id number] 2.16.84 0.1.258500.3.579.2.593 1934 Unknown [id number] 2.16.84 0.1.825728.3.579.2.593 1934 Unknown [id number] 2.16.84 0.1.054628.3.579.2.593 1934 Unknown [id number] 2.16.84 0.1.295514.3.579.2.593 -193 Unknown [id number] 2.16.84 0.1.840941.3.579.2.593 1934 Unknown [id number] 2.16.84 0.1.363302.3.579.2.593 1934 Unknown [id number] 2.16.84 0.1.319770.3.579.2.593 1934 Unknown [id number] 2.16.84 0.1.519672.3.579.2.593 1934 Unknown [id number] 2.16.84 0.1.597503.3.579.2.593 1934 Unknown [id number] 2.16.84 0.1.181046.3.579.2.593 1934 Unknown [id number] 2.16.84 0.1.932936.3.579.2.593 1934 Unknown [id number] 2.16.84 0.1.274590.3.579.2.593 1934 Unknown [id number] 2.16.84 0.1.384543.3.579.2.593 1934 Unknown [id number] 2.16.84 0.1.667364.3.579.2.593 1934 Unknown [id number] 2.16.84 0.1.236370.3.579.2.593 1934 Unknown [id number] 2.16.84 0.1.829393.3.579.2.593 1934 Unknown [id number] 2.16.84 0.1.705090.3.579.2.593 1934 Unknown [id number] 2.16.84 0.1.778814.3.579.2.593 1934 Unknown [id number] 2.16. 840.1.734791.3.579.2.196 1934 Unknown [id number] 2.16.84 0.1.872458.3.579.2.1259 1934 Unknown [id number] 2.16.84 0.1.547674.3.579.2.1259 1934 Unknown [id number] 2.16.8 40.1.749607.3.579.2.727 1934 Unknown [id number] 2.16.8 40.1.548722.3.579.2.727 1934 Unknown [id number] 2.16.8 40.1.138480.3.579.2.727 1934 Unknown [id number] 2.16.8 40.1.224992.3.579.2.727 1934 Unknown [id number] 2.16.8 40.1.693396.3.579.2.727 1934 Unknown [id number] 2.16.8 40.1.732515.3.579.2.727 1934 Unknown [id number] 2.16.8 40.1.937195.3.579.2.727 1934 Unknown [id number] 2.16.8 40.1.779995.3.579.2.727 1934 Unknown [id number] 2.16.8 40.1.930119.3.579.2.727 1934 Unknown [id number] 2.16.8 40.1.814644.3.579.2.727 Social History Date Type Detail Facility Unknown if ever smoked [employer] Other Start: 02-05-2023 End: 08-29-2023 Sex Assigned At [facility] Start: 12-11-2022 End: 12-13-2022 Tobacco smoking status Never smoked tobacco (finding) [facility] Tobacco smoking status Never [facility] Comment on above: Quit in 2002 Start: 01-22-2023 End: 10-02-2023 Tobacco smoking status Ex-smoker (finding) [facility] Comment on above: Quit in 2002 Start: 12-13-2022 Tobacco use and exposure Smokeless tobacco non-user [facility] Start: 02-05-2023 End: 08-29-2023 Alcohol intake Current drinker of alcohol (finding) [facility] Start: 02-05-2023 End: 08-29-2023 History of Social function [facility] Start: 1935 Sex Assigned At Not on file N [facility] Functional Status Date Assessment Result Facility 10-23-2023 Functional Status No [facility] 09-30-2023 Functional Status N/A [facility] Clinical Notes 10-13-2021 to 03-17-2024 LaboratoryNatgilda Huston, VAT OVERHAULER-LEASING ASSISTANT - 08/29/2023 1:00 PM EST Note Date & Type Note Facility 03-17-2024 Note [place] Cardiology - [facility] Reason for visit: Afib. 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 Device check performed on 06/12/2022 shows thresholds to be good. he is in persistent A. Fib and underwent a single-chamber pacemaker. with [employer] on 10/13/2021 and paced 65% Echocardiogram [...] stress test about 12 years ago in [place], and was in hospital with noted a fib currently on coumadin anticoagulation. Echocardiogram performed on 11/30/2020 at [facility] shows an ejection fraction of 55% [...] Medical History: Diagno (more content not included)... [facility] 03-17-2024 Note Pt is here for [age] [...] All other systems reviewed and are negative. [facility] 03-13-2024 Note Patient: Ry soria Procedure Information Date/Time: 03/13/24 0900 Procedure: TRANSESOPHAGEAL ECHO (HELDER) Location: [facility] Vascular Lab [...] Plan discussed with attending. Additional Equipment Requests [facility] 02-12-2024 Note [place] Cardiology - [facility] Reason for visit: Afib. 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 Device check performed on 06/12/2022 shows thresholds to be good. he is in persistent A. Fib and underwent a single-chamber pacemaker. with [employer] on 10/13/2021 and paced 65% Echocardiogram [...] stress test about 12 years ago in [place], and was inpt hospital with noted a fib currently on coumadin anticoagulation. Echocardiogram performed on 11/30/2020 at [facility] shows an ejection fraction of 55% [...] on file [employer] (more content not included)... [facility] 01-22-2024 Note 01/22/24 0938 Admission Assessment Questions Verify insurance with patient [...] Interested Does the patient have a case assistant assigned to them through their insurance? No [...] to send link and activate MyChart? No [facility] 01-21-2024 Note Patient: Ry soria Procedure Information Date/Time: 01/21/24 1100 Procedure: Left atrial appendage closure (transvenous) Location: [facility] HR ADMINISTRATOR 3 / [facility] (Cath) Providers: Kelly Morales MD Clinical information reviewed: Allergies Meds Physical Exam Airway Mallampati: III TM distance: >3 FB Neck ROM: full Cardiovascular Rhythm: regular Rate: normal Dental Pulmonary Abdominal Anesthesia Plan ASA 3 other (Conscious sedation.) Anesthetic plan and risks discussed with patient. Use of blood products discussed with patient who consented to blood products. Additional Equipment Requests [facility] 12-04-2023 Note [place] [facility]iology - [facility] Subjective Ry Lerner is a [...] 75 QRS DURATIO (more content not included)... [facility] 10-30-2023 Note [place] [facility] - [facility] Reason for visit: Afib. 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 Device check performed on 06/12/2022 shows thresholds to be good. he is in persistent A. Fib and underwent a single-chamber pacemaker. with [employer] on 10/13/2021 and paced 65% Echocardiogram [...] stress test about 12 years ago in [place], and was in hospital with noted a fib currently on coumadin anticoagulation. Echocardiogram performed on 11/30/2020 at [facility] shows an ejection fraction of 55% [...] on file Physical (more content not included)... [facility] 10-24-2023 Hospital Discharge instructions Patient Education 10/24/2023 14:41:31 [facility](CUSTOM) [place], [place] DISCHARGE INSTRUCTIONS: NASAL SURGERY DO NOT [...] the office with any questions or problems: [phone] ([place] office) The above information has been explained, I have had the opportunity to have my questions answered, and I have received a copy. Responsible [employer] SignatureSurgeon s Signature Nurse s Signature Reviewed: 09/0510/24/2023 14:37:39 Post Op Patient Instructions - FT (CUSTOM) Follow Up Care 10/23/2023 10:02:33 With:Christelle Meyeraixa Address:Unknown When: Unknown Comments:As needed [facility] 10-23-2023 Note [id number] [facility] 09-30-2023 Evaluation + Plan note Future Scheduled TestsAlkaline Phosphatase Isoenzymes 09/30/23. 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 Device check performed on 06/12/2022 shows thresholds to be good. he is in persistent A. Fib and underwent a single-chamber pacemaker. with [employer] on 10/13/2021 and paced 65% Echocardiogram [...] stress test about 12 years ago in [place], and was in hospital with noted a fib currently on coumadin anticoagulation. Echocardiogram performed on 11/30/2020 at [facility] shows an ejection fraction of 55% [...] mg DR lindsay (more content not included)... [facility] 05-15-2023 Note Patient here for 3 m [...] All other systems reviewed and are negative. [facility] 01-01-2023 Note [id number] Note [id number] 12-31-2022 Note [facility] SURGERY Clinical Discharge Summary PERSON INFORMATION Name YR LERNER Age 87 Years 1935 Sex MALE Language Dominican PCP Ezequiel CHAMBERS, John Rodríguez Marital Status Med Service Ambulatory Surgery Acct# Arrival 12/31/2022 08:09:06 Visit Reason SURGERY - RIGHT CARPAL TUNNEL RELEASE Acuity LOS 039 21:33 Address: [address] [place] [id number] Comment: PROVIDER INFORMATION VITALS INFORMATION Vital Sign [...] release capsule) 1 cap(s) Oral every day. Margaret's wort (Lindsey's wort oral tablet) 1 tab(s) [...] 1 cap(s) Oral every day. Lindsey's wort (Margaret's wort oral tablet) 1 tab(s) Oral 2 [...] release capsule) 1 cap(s) Oral every day. Margaret's wort (Lindsey's wort oral tablet) 1 tab(s) [...] release capsule) 1 cap(s) Oral every day. Margaret's wort (Margaret's wort oral tablet) 1 tab(s) Oral 2 [...] REASON INCOMPLETE INFORMATION PATIENT EDUCATION INFORMATION Instructions: [place]- Post Op Carpal Tunnel (CUSTOM) Follow up: With: Address: When: MARJ PEREZ [address] [place] [address], [address] [place], [place] [phone] Business (1) 01/09/2023 11:00 AM DIAGNOSIS Carpal tunnel syndrome, right Comment: PHYS DOC NOTES [facility] 12-31-2022 Note Procedure: Decompres mary [...] on: 12/31/2022 09:43 EDT] Ward Martinez DO [facility] 12-12-2022 Note [id number] [facility] 12-10-2022 Note procedure: Decompres mary of [...] on: 12/10/2022 15:46 EDT] Ward Martinez DO [facility] 12-10-2022 Note [facility] SURGERY Clinical Discharge Summary PERSON INFORMATION Name RY LERNER Age 87 Years 1935 Sex MALE Language Dominican PCP Ezequiel CHAMBERS, John Rodríguez Marital Status [facility] Service Ambulatory Surgery Acct# Arrival 12/10/2022 13:13:28 Visit Reason SURGERY - LEFT CARPAL TUNNEL RELEASE Acuity LOS 019 02:57 Address: [address] [place] [address] Comment: PROVIDER INFORMATION VITALS INFORMATION Vital Sign [...] Follow up: With: Address: When: Ward Martinez [address] [place] [address], [address] [place] [phone] Business (1) 12/18/2022 1:30 PM Type Location Start [facility] ([facility] Main OR 12/31/2022 7:30 AM 12/31/2022 8:00 AM Confirmed DIAGNOSIS Carpal tunnel syndrome of left wrist Comment: PHYS DOC NOTES [facility] 06-02-2022 Evaluation note Encounter Date [...] treatment plan. Patient left in stable condition [facility]er[facility] [employer] Other [id number] History general Narrative - Reported* Type Description Date Medical History HYPERTENSION Medical History STROKE Medical History HEAD INJURY Surgical History PACEMAKER 10/13/2021 Surgical History HERNIA X 2 Surgical History TONSILECTOMY Hospitalization History SEE ABOVE [employer] Other Evaluation + Plan note No data available for this section [facility] Future Appointments Appointment Date:08/27/2023 09:30:00 AM Scheduled Provider: Location:[facility] Appointment Type: Medicare Wellness Subsequent [facility] Future Appointments Appointment Date:10/02/2023 10:00:00 AM Scheduled Provider:Sheng Simms Location:[facility] Appointment Type: Open Future Scheduled Tests Laboratory* Alkaline Phosphatase Isoenzymes 3/4/24 * H. pylori Stool Ag 3/4/24 * Ferritin 3/4/24 * Iron Level 3/4/24 [facility] Evaluation + Plan note Future Appointments Appointment Date:10/24/2023 02:30:00 PM Scheduled Provider: Location:[facility] Appointment Type:Surgery FT Future Scheduled Tests Laboratory* Alkaline Phosphatase Isoenzymes 3/4/24 * H. pylori Stool Ag 3/4/24 * Ferritin 3/4/24 * Iron Level 3/4/24 [facility] Diagnosis Other atopic dermatitis- Primary Seborrheic keratosis [facility] No data available for this section [facility] No data available for this section [facility] Summary Purpose Family History No Family [...] and content) DATE CREATED AUTHOR 01/26/2022 [facility] DATE CREATED AUTHOR AUTHOR'S ORGANIZ ATION 04/25/2022 [facility] DATE CREATED AUTHOR AUTHOR'S ORGANIZ ATION 01/06/2023 [facility] DATE CREATED AUTHOR AUTHOR'S ORGANIZ ATION 01/06/[address] [facility] DATE CREATED AUTHOR AUTHOR'S ORGANIZ ATION 09/15/2023 [facility] DATE CREATED AUTHOR AUTHOR'S ORGANIZ ATION 10/24/2023 [facility] EPIC DATE CREATED AUTHOR AUTHOR'S ORGANIZ ATION 01/24/2024 [facility] DATE CREATED AUTHOR AUTHOR'S ORGANIZ ATION 03/22/2024 [facility] REASON FOR VISIT (unrecogniz ed section and content) Reason Comments Rash Specialty Diagnoses / Procedures Referred By Daniel ivy Referred To Contact Dermatology Diagnoses eczema / skin changes texture changes Sheng Lagos MD [address] [place] [address] Rebecca Conley MD [address] [address] Referral ID Status Reason Start Date Expiration Date Visits Re quested Visits Authorized [id number] Closed 07/05/2023 01/01/2024 1 1 Patient Care team informatio n (unrecognized section and content) Cover Maker Relationship Specialty Start Date End Date Jason Silva MD [address] [place] [address] PCP - General Family Medicine 12/10/22 Cover Maker Relationship Specialty Start Date End Date Jason Silva MD [address] [place] [facility] [place] [address] PCP - General Family Medicine 12/10/22 FOR [...] BE BASED ON THE PRIMARY CLINICAL RECORDS. [facility] [facility]. provides no warranty or guarantee of the accuracy or completeness of information in this document.
== END 2024-06-17 07:08 | disposition home or self-care (01) ==
LOC: NM 07:08
PROVIDERS: PCP Nurse Practitioner; Visit Provider Internal Medicine Hematology & Oncology
DX: D64.9 Anemia, unspecified (principal); R91.1 Solitary pulmonary nodule; Q61.00 Congenital renal cyst, unspecified; D50.9 Iron deficiency anemia, unspecified; K90.9 Intestinal malabsorption, unspecified; D47.2 Monoclonal gammopathy; C90.00 Multiple myeloma not having achieved remission; R77.9 Abnormality of plasma protein, unspecified; D69.6 Thrombocytopenia, unspecified; D63.1 Anemia in chronic kidney disease
CPT/HCPCS: 78306; A9503